=== PATIENT | male | born 1995 | race Two or more races ===

== ENCOUNTER 2020-01-31 14:21 | Inpatient (IN) | payer MEDICARE, MEDICAID, SELFPAY ==
[2020-02-06 01:40] VITALS: BMI 18.6
[2020-02-07 07:00] VITALS: BMI 30.2
[2020-02-07 07:06] VITALS: BP 129/73; PULSE 68; RESP 16; TEMP 36.4; O2SAT 99
[2020-02-07] MEDS: Benztropine Mesylate 1 MG TABLET PO ×2 (09:15→13:03)
[2020-02-07] MEDS: haloperidoL 5 MG TABLET PO ×2 (09:19→13:03)
[2020-02-07 16:54] VITALS: BP 116/69; PULSE 73; TEMP 36.5
--- NOTE | 2020-02-07 17:51 | HO.PSYCHPN ---
Assessment & Plan Assessment & Plan (1) Psychosis: Status: Acute Code(s): F29 - Unspecified psychosis not due to a substance or known physiological condition Assessment and Plan: Continue medication as above DC planned for tomorrow Greater than 50% of the session was spent on counseling and/or coordination of care Subjective Subjective Date of Service: 02/07/20 Reason For Visit: Schizophrenia Subjective Notes: Conditional Voluntary and 3 Day Interim History: Miguel Ángel remains anxious to go home. He is calm and cooperative. He has no overt psychosis. He is ambivalent about whether he will take his medication when he leaves. Medication Compliance: Yes Side effects from medications: No Attending Groups: Intermittent Mental Status Exam Mental Status Exam Patient Appearance: Well Grooomed Patient Orientation: Person, Place and Time Level of Consciousness: Appropriate Patient Behavior: Appropriate and Wandering Mood Description: Apathetic and Blunted Affect Description: Apathetic and Withdrawn Ability to Follow Directions: Fair Speech Pattern: Perseverating and Soft-Spoken Memory Description: Normal for Patient Hallucinations: Auditory (Perhaps) Delusions: Paranoid Ideation and Ideas of Reference Thought Process: Distracted Thought Content: Disorganized Judgement: Poor Diagnostics Vital Signs (24Hr): Vital Signs - 24 hr 02/07/20 07:06 02/07/20 16:54 Temperature 97.6 F 97.7 F Pulse Rate 68 73 Respiratory Rate 16 Blood Pressure 129/73 116/69 Pulse Oximetry 99 Body Mass Index 30.2 Labs Results: 01/30/20 15:24 01/30/20 15:24 Medications Medications Ambulatory Orders Medication Instructions Recorded benztropine 1 mg PO BID 02/06/20 haloperidol decanoate 100 mg IM Q4W 02/06/20 olanzapine 20 mg PO BEDTIME 02/06/20 trazodone 100 mg PO BEDTIME 02/06/20 Allergies Allergies Allergy/AdvReac Type Severity Reaction Status Date / Time morphine [MORPHINE] AdvReac Unknown NAUSEA Unverified 01/24/20 17:26
[2020-02-07] MEDS: OLANZapine 10 MG TABLET 20 MG PO (21:37)
[2020-02-07] MEDS: traZODone HCL 100 MG TABLET PO (21:38)
[2020-02-08] MEDS: haloperidoL 5 MG TABLET 7.5 MG PO (02:49)
[2020-02-08] MEDS: hydrOXYzine HCL 25 MG TABLET PO (02:49)
--- NOTE | 2020-02-08 04:53 | PC.NURSE ---
At approximately 0240, patient observed to be writing at the desk in his room while listening to music. Pt explained that he was writing numbers. The letter g and several 0 were written in rows. When asked what these characters signified, the pt was not able to explain and struggled to articulate any explanation other than numbers. He was offered medication and pt received PRN Atarax and haldol. Pt paced back and forth in the hallway and was observed to engage in self-dialoguing. He paused to ask in which direction numbers should be written and where commas should be placed, with no clear logic present. Pt returned to bed by 0345. Will continue to monitor and report.
[2020-02-08] MEDS: Benztropine Mesylate 1 MG TABLET PO ×2 (08:14→12:56)
[2020-02-08] MEDS: haloperidoL 5 MG TABLET PO ×2 (08:14→12:56)
[2020-02-08 09:49] VITALS: BP 115/58; PULSE 72; TEMP 37; O2SAT 96
--- NOTE | 2020-02-08 17:42 | PM.PSYDC ---
DS: Providers Provider Date of admission: 01/31/20 14:21 Primary care physician: Unknown Physician Attending physician on admission: Alice Rodriguez Consults: 02/06/20 04:59 Consult to Crisis Routine Attending physician on discharge: MichaelNancy Anticipated date of discharge: 02/08/20 DS: Diagnosis Discharge Diagnosis (1) Psychosis: Status: Acute Problem details: Individual was admitted with an acute increase in AH and delusional thinking which lead to his being dysregulated and violent at home. This occurred in the context of his stopping his medications which is typical for him. He was restarted on his medication which are listed below. He accepted haldol decanoate. Much emphasis was placed on trying to explain to the patient the need to remain on his medication. He struggles to understand since he does not appreciate the severity of his illness and nor does he accept that he has an illness at all. RADHA and this flex o writer operator were in touch with the family to discuss his going home. This flex o writer operator spoke at length to the patient's father who repeated that the patient must agree to take his medication and go to his appointments and if he does not then he can no come home. This was explained to the patient. It was re-iterated that if he continues to stop his medication and fail to follow through then he will be likely to have a petition for a Bear Order and his parents won't allow him home. He understood this. Discharge Plan Discharge Anticipated Discharge Date/Time: 02/08/20 14:49 Patient Disposition: Home, Self-Care Referrals: Uziel Mireles, psychiatrist [Other] - 03/15/20 1:20 pm (Appointment through telehealth 03/15 1:20pm 04/07 10am) Bessy Adamson, Therapist [Other] - 02/15/20 1:00 pm (IN PERSON. ) Fletcher Carrillo MD [Physician] - 02/12/20 1:00 pm (FAX NUMBER [phone] TELEVISIT ) Discharge Medications: New haloperidol 5 mg tablet 5 mg PO BID Qty: 60 RF: 0 Continued haloperidol decanoate 100 mg/mL Solution 100 mg IM Q4W RF: 0 trazodone 100 mg Tablet 100 mg PO BEDTIME RF: 0 benztropine 1 mg Tablet 1 mg PO BID RF: 0 olanzapine 20 mg Tablet 20 mg PO BEDTIME RF: 0 Discharge Orders: Discharge Order (Routine); Ordered 02/08/20 Ordered By: Alice Rodriguez Diet: advance to your usual diet Activity on Discharge: As tolerated Stand Alone Forms: Community Support Discharge Date/Time: 02/08/20 14:15 Visit Report Forms: Patient Portal Discharge page Care Plan Goals: Continue with medications Go to your appointments Stay sober Health Concerns: Psychosis Plan of Treatment: As in SW notes
--- NOTE | 2020-03-10 23:01 | ED.PSYCH ---
HPI - Psych General Source: EMS Limitations: no limitations History of Present Illness HPI Narrative: patient well known to this facility for multiple prior visits referred to medical record number [id number] Patient presents via EMS from home with complaint of increased anxiety/ voices is head. On arrival denied SI or HI. Denies any illicit substance use. MD complaint: anxiety Onset (ago): day(s) Duration: constant History of same: Yes Relieving factors: none Exacerbating factors: none Associated psychiatric symptoms: none Associated symptoms: denies other symptoms Treatments prior to arrival: none Related Data Home Medications Medication Instructions Recorded Confirmed benztropine 1 mg PO BID 02/06/20 02/06/20 haloperidol decanoate 100 mg IM Q4W 02/06/20 02/06/20 olanzapine 20 mg PO BEDTIME 02/06/20 02/06/20 trazodone 100 mg PO BEDTIME 02/06/20 02/06/20 Previous Rx's Medication Instructions Recorded haloperidol 5 mg PO BID #60 tab 02/08/20 Allergies Allergy/AdvReac Type Severity Reaction Status Date / Time morphine [MORPHINE] AdvReac Unknown NAUSEA Unverified 01/24/20 17:26 Review of Systems Review of Systems: Constitutional: No Weight loss, No Fever, No Chills, No Night Sweats, No Fatigue, No Malaise ENT/Mouth: No Hearing loss, No Ear Pain, No Nasal Congestion, No Sinus Pain, No Hoarseness, No sore throat, No Rhinorrhea, No Swallowing Difficulty Eyes: No Eye Pain, No Swelling, No Redness, No Foreign Body, No Discharge, No Vision Changes Cardiovascular: No Chest Pain, No SOB, No Dyspnea on Exertion, No Orthopnea, No Edema, No Palpitations Respiratory: No Cough, No Sputum, No Wheezing, No Smoke Exposure, No Dyspnea Gastrointestinal: No Nausea, No Vomiting, No Diarrhea, No Constipation, No abdominal Pain, No Hematochezia, No Melena Genitourinary: no irregular bleeding, No Dysuria, No Urinary Frequency, No Hematuria, No Urinary Incontinence, No Urgency, No Flank Pain, No Urinary Flow Changes, No Hesitancy Musculoskeletal: No joint pain, No Myalgias, No Joint Swelling Skin: No Skin Lesions, No rash Neuro: No Weakness, No Numbness, No Paresthesias, No Loss of Consciousness, No Dizziness, No Headache Psych: As noted Heme/Lymph: No Bruising, No Bleeding,No Lymphadenopathy Endocrine: No Polyuria, No Polydipsia, No Temperature Intolerance Yes all other systems are reviewed and are negative [facility] Past Medical History Attestation statement: The following information was validated with the patient. Social History Social History Currently Displaying Signs/Symptoms of Drug Intoxication Withdrawal: No Advance Directives: No Advance Directives Information Provided: No Do you have thoughts of harming others: None Do you have a plan to hurt others: No Plan Physical Exam Vital Signs: Vital Signs: Reviewed Const: General: cooperative and healthy appearing; No acute distress or intoxicated appearing Nutritional Appearance: average body habitus Orientation/consciousness: patient oriented x3 HENMT: Head: Yes normal to inspection Ears: hearing grossly normal bilaterally Eyes: General: appearance normal, both eyes and all related structures Visual Harris: normal visual harris by confrontation Neck: Neck: Yes normal visual inspection and No tender Thyroid: Thyroid normal Chest: Chest palpation & inspection: normal inspection of the chest Resp: Effort & Inspection: normal respiratory effort Cardio: Jugular venous distension: no JVD GI: Inspection: Yes normal to inspection Percussion: Yes normal to percussion Auscultation: normal bowel sounds : General: Yes no CVA tenderness Back/Spine/Pelvis: Back: no CVA tenderness Skin: General skin exam: no rashes or lesions noted Neuro: General: patient oriented x3 Extrem: General: Yes normal to inspection MDM - Psych Restraints Face to Face Assessment: Face to Face Assessment: Current Situation: After assessment of the patient, a review of the pertinent medical record and a discussion with nursing staff, I feel the patient requires a restrain intervention. Reaction To: [] Medical Condition: [] Behavioral State: [] Continued Need: [] Lab Data Result diagrams: 01/30/20 15:24 01/30/20 15:24 Labs: Lab Results 01/30/20 01/30/20 01/30/20 Range/Units 15:11 15:24 15:24 WBC (4.8 - 10.8) X10*3/uL RBC (4.60 - 5.80) X10*6/UL Hgb (14.0 - 18.0) g/dL Hct (42 - 52) % MCV (80 - 98) fL MCH (27.0 - 33.0) pg MCHC (31.0 - 36.0) g/dl RDW Coeff of Colette (11.0 - 16.0) % Plt Count (160 - 400) x10*3/uL MPV (9.4 - 12.4) fL Immature Gran % (Auto) (0.0 - 0.4) % Neut % (Auto) (45 - 73) % Lymph % (Auto) (20 - 40) % [place] % (Auto) (2 - 11) % Eos % (Auto) (0 - 4) % Baso % (Auto) (0 - 2) % Abs Immat Gran (auto) (0.00 - 0.03) X10*3/uL Absolute Lymphs (auto) (1.2 - 4.9) X10*3/uL Absolute Monos (auto) (0.1 - 1.2) X10*3/uL Absolute Eos (auto) (0.0 - 0.4) X10*3/uL Absolute Basos (auto) (0.0 - 0.2) X10*3/uL Absolute Nucleated RBC (0.0 - 0.012) X10*3/uL Nucleated RBC % (auto) (0.0 - 0.2) /100 WBC Absolute Neutrophils (2.0 - 8.3) X10*3/uL Sodium 138 (135 - 145) MMOL/L Potassium 4.3 (3.3 - 5.1) MMOL/L Chloride 104 (96 - 108) MMOL/L Bicarbonate 25 (22 - 29) MMOL/L Anion Gap 13 (12 - 20) BUN 18 H (9 - 16) MG/DL Creatinine 1.11 (0.5 - 1.4) MG/DL Estimated Creat Clear 85.0 ML/MIN Est GFR (Non-Af Amer) > 60 Random Glucose 95 (60 - 115) MG/DL Total Bilirubin 0.6 (0.0 - 1.0) MG/DL Direct Bilirubin 0.2 (0.0 - 0.5) MG/DL AST 14 D (5 - 37) U/L ALT 15 (0 - 40) U/L Alkaline Phosphatase 53 D (39 - 117) U/L Total Protein 7.8 (6.5 - 8.0) G/DL Albumin 5.2 H (3.5 - 5.0) G/DL Urine Opiates Screen NOT DETECTED (NOT DETECTD - ) Ur Barbiturates Screen NOT DETECTED (NOT DETECTD - ) Phencyclidine Screen NOT DETECTED (NOT DETECTD - ) Ur Amphetamines Screen NOT DETECTED (NOT DETECTD - ) U Benzodiazepines Scrn NOT DETECTED (NOT DETECTD - ) Urine Cocaine Screen NOT DETECTED (NOT DETECTD - ) U Cannabinoids Screen NOT DETECTED (NOT DETECTD - ) Ethyl Alcohol 33 MG/DL Coronavirus (PCR) (NEGATIVE - ) 01/30/20 01/31/20 Range/Units 15:24 09:17 WBC 8.3 (4.8 - 10.8) X10*3/uL RBC 5.02 (4.60 - 5.80) X10*6/UL Hgb 15.3 (14.0 - 18.0) g/dL Hct 45.1 (42 - 52) % MCV 89.8 (80 - 98) fL MCH 30.5 (27.0 - 33.0) pg MCHC 33.9 (31.0 - 36.0) g/dl RDW Coeff of Colette 12.3 (11.0 - 16.0) % Plt Count 224 (160 - 400) x10*3/uL MPV 10.8 (9.4 - 12.4) fL Immature Gran % (Auto) 0.7 H (0.0 - 0.4) % Neut % (Auto) 63.7 (45 - 73) % Lymph % (Auto) 22.6 (20 - 40) % [place] % (Auto) 7.4 (2 - 11) % Eos % (Auto) 4.8 H (0 - 4) % Baso % (Auto) 0.8 (0 - 2) % Abs Immat Gran (auto) 0.06 H (0.00 - 0.03) X10*3/uL Absolute Lymphs (auto) 1.9 (1.2 - 4.9) X10*3/uL Absolute Monos (auto) 0.6 (0.1 - 1.2) X10*3/uL Absolute Eos (auto) 0.4 (0.0 - 0.4) X10*3/uL Absolute Basos (auto) 0.1 (0.0 - 0.2) X10*3/uL Absolute Nucleated RBC 0.000 (0.0 - 0.012) X10*3/uL Nucleated RBC % (auto) 0.0 (0.0 - 0.2) /100 WBC Absolute Neutrophils 5.3 (2.0 - 8.3) X10*3/uL Sodium (135 - 145) MMOL/L Potassium (3.3 - 5.1) MMOL/L Chloride (96 - 108) MMOL/L Bicarbonate (22 - 29) MMOL/L Anion Gap (12 - 20) BUN (9 - 16) MG/DL Creatinine (0.5 - 1.4) MG/DL Estimated Creat Clear ML/MIN Est GFR (Non-Af Amer) Random Glucose (60 - 115) MG/DL Total Bilirubin (0.0 - 1.0) MG/DL Direct Bilirubin (0.0 - 0.5) MG/DL AST (5 - 37) U/L ALT (0 - 40) U/L Alkaline Phosphatase (39 - 117) U/L Total Protein (6.5 - 8.0) G/DL Albumin (3.5 - 5.0) G/DL Urine Opiates Screen (NOT DETECTD - ) Ur Barbiturates Screen (NOT DETECTD - ) Phencyclidine Screen (NOT DETECTD - ) Ur Amphetamines Screen (NOT DETECTD - ) U Benzodiazepines Scrn (NOT DETECTD - ) Urine Cocaine Screen (NOT DETECTD - ) U Cannabinoids Screen (NOT DETECTD - ) Ethyl Alcohol MG/DL Coronavirus (PCR) NEGATIVE (NEGATIVE - ) Discharge Plan Discharge Patient Disposition: [facility] Discharge Date/Time: 01/31/20 19:19
== END 2020-02-08 14:15 | disposition home or self-care (01) | DRG 885 ==
PROVIDERS: Admitting Provider Psychiatry & Neurology Psychiatry; Emergency Provider Physician Assistant; Visit Provider Psychiatry & Neurology Psychiatry
DX: F29 Unspecified psychosis not due to a substance or known physiological condition (principal); F17.210 Nicotine dependence, cigarettes, uncomplicated; Z71.6 Tobacco abuse counseling; Z20.828 Contact with and (suspected) exposure to other viral communicable diseases; Z88.5 Allergy status to narcotic agent; Z79.899 Other long term (current) drug therapy
CPT/HCPCS: 36415; 80051; 80076; 80307; 80320; 82565; 82947; 84520; 85025; 93005; 99285; U0003

== ENCOUNTER 2020-03-10 19:06 | Inpatient (IN) | payer MEDICARE, MEDICAID, SELFPAY ==
[2020-03-10 19:12] VITALS: BP 122/79; BP 157/58; PULSE 69; PULSE 99; RESP 18; TEMP 35.5; O2SAT 98; BMI 29.1
[2020-03-10 19:19] VITALS: BP 122/79; PULSE 69; RESP 18; TEMP 35.5; O2SAT 97
--- NOTE | 2020-03-10 19:51 | ED.GENADULT ---
HPI - General Adult General Chief complaint: General Medical Stated complaint: GENERAL MALAISE, TEMP 99.6 Time Seen by Provider: 03/10/20 19:16 Source: patient and EMS Mode of arrival: EMS Limitations: no limitations History of Present Illness HPI narrative: Patient well known to this facility for multiple prior visits referred to medical record number [id number] Patient presents via EMS from home with complaint of increased anxiety/ voices is head. On arrival denied SI or HI. Denies any illicit substance use. Onset (ago): day(s) Associated symptoms: denies other symptoms Treatments prior to arrival: none Related Data Home Medications Medication Instructions Recorded Confirmed benztropine 1 mg PO BID 03/10/20 03/10/20 haloperidol 5 mg PO BID 03/10/20 03/10/20 haloperidol decanoate 100 mg IM Q4W 03/10/20 03/10/20 olanzapine 20 mg PO BEDTIME 03/10/20 03/10/20 trazodone 100 mg PO BEDTIME 03/10/20 03/10/20 Allergies Allergy/AdvReac Type Severity Reaction Status Date / Time No Known Allergies Allergy Verified 03/10/20 19:11 Review of Systems Review of Systems: Constitutional: No Weight loss, No Fever, No Chills, No Night Sweats, No Fatigue, No Malaise ENT/Mouth: No Hearing loss, No Ear Pain, No Nasal Congestion, No Sinus Pain, No Hoarseness, No sore throat, No Rhinorrhea, No Swallowing Difficulty Eyes: No Eye Pain, No Swelling, No Redness, No Foreign Body, No Discharge, No Vision Changes Cardiovascular: No Chest Pain, No SOB, No Dyspnea on Exertion, No Orthopnea, No Edema, No Palpitations Respiratory: No Cough, No Sputum, No Wheezing, No Smoke Exposure, No Dyspnea Gastrointestinal: No Nausea, No Vomiting, No Diarrhea, No Constipation, No abdominal Pain, No Hematochezia, No Melena Genitourinary: no irregular bleeding, No Dysuria, No Urinary Frequency, No Hematuria, No Urinary Incontinence, No Urgency, No Flank Pain, No Urinary Flow Changes, No Hesitancy Musculoskeletal: No joint pain, No Myalgias, No Joint Swelling Skin: No Skin Lesions, No rash Neuro: No Weakness, No Numbness, No Paresthesias, No Loss of Consciousness, No Dizziness, No Headache Psych: as noted in HPI Heme/Lymph: No Bruising, No Bleeding,No Lymphadenopathy Endocrine: No Polyuria, No Polydipsia, No Temperature Intolerance Yes all other systems are reviewed and are negative [facility] Past Medical History Attestation statement: The following information was validated with the patient. Medical History (Updated 03/11/20 @ 01:59 by Hank Flor NP) Bipolar affective Schizophrenia Social History Social History Alcohol intake: current Alcohol intake frequency: 0-2 drinks per day Alcohol type: beer, wine and hard liquor Smoking Status: Current every day smoker Smoked in Last 30 Days: Yes Use of substances other than those prescribed or required for medical reasons: No Advance Directives: No Advance Directives Information Provided: No Physical Exam Vital Signs: Vital Signs: Vital Signs Temp Pulse Resp BP Pulse Ox 03/10/20 23:52 97.8 F 79 17 116/58 L 98 03/10/20 19:19 95.9 F L 69 18 122/79 97 03/10/20 19:12 95.9 F L 69 18 122/79 98 Body Mass Index 29.1 Reviewed Const: Other: Flat affect General: cooperative; No acute distress or intoxicated appearing Nutritional Appearance: average body habitus Orientation/consciousness: patient oriented x3 HENMT: Head: Yes normal to inspection Ears: hearing grossly normal bilaterally Eyes: General: appearance normal, both eyes and all related structures Visual Harris: normal visual harris by confrontation Neck: Neck: Yes normal visual inspection and No tender Thyroid: Thyroid normal Chest: Chest palpation & inspection: normal inspection of the chest Resp: Effort & Inspection: normal respiratory effort Cardio: Jugular venous distension: no JVD GI: Inspection: Yes normal to inspection Percussion: Yes normal to percussion Auscultation: normal bowel sounds : General: Yes no CVA tenderness Back/Spine/Pelvis: Back: no CVA tenderness Skin: General skin exam: no rashes or lesions noted Neuro: General: patient oriented x3 Extrem: General: Yes normal to inspection Course Reevaluation(s) Reevaluation #1: Care team evaluate patient recommendation for crisis consult Reevaluation #2: 0130 evaluated crisis team Section [address] recommendation for inpatient level care. Patient has remained calm cooperative. Bed search initiated. Medical Decision Making MDM Narrative Medical decision making narrative: on arrival reporting feeling very anxious however he is calm with flat affect initially declined SI/HI however he reported this to the RN and to the Care Team counselor. Patient subsequently changing to hospital attire medical screening labs ordered and crisis consult placed. Patient very familiar with facility for similar presentation the past. Lab Data Result diagrams: 03/10/20 20:44 03/10/20 20:44 Labs: Lab Results 03/10/20 03/10/20 03/10/20 Range/Units 20:44 20:44 20:44 WBC 10.8 (4.8-10.8) X10*3/uL RBC 4.90 (4.60-5.80) X10*6/uL Hgb 15.0 (14.0-18.0) g/dl Hct 44.4 (42-52) % MCV 90.6 (80-98) fL MCH 30.6 (27.0-33.0) pg MCHC 33.8 (31.0-36.0) g/dl RDW 11.9 (11.0-16.0) % Plt Count 207 (160-400) X10*3/uL MPV 11.1 (9.4-12.4) fL Immature Gran % (Auto) 0.5 H (0.0-0.4) % Neut % (Auto) 54.5 (45-73) % Lymph % (Auto) 30.4 (20-40) % [place] % (Auto) 7.6 (2-11) % Eos % (Auto) 6.4 H (0-4) % Baso % (Auto) 0.6 (0-2) % Lymph # (Auto) 3.3 (1.2-4.9) X10*3/uL [place] # (Auto) 0.8 (0.1-1.2) X10*3/uL Eos # (Auto) 0.7 H (0.0-0.4) X10*3/uL Baso # (Auto) 0.1 (0.0-0.2) X10*3/uL Abs Immat Gran (auto) 0.05 H (0.00-0.03) X10*3/uL Absolute Neuts (auto) 5.9 (2.0-8.3) X10*3/uL Absolute Nucleated RBC 0.000 (0.0-0.012) X10*3/uL Nucleated RBC % (auto) 0.0 (0.0-0.2) /100WBC Sodium 139 (135-145) mmol/L Potassium 4.3 (3.3-5.1) mmol/l Chloride 103 (96-108) mmol/L Carbon Dioxide 28 (22-29) mmol/L Anion Gap 12 (12-20) BUN 15 (9-16) mg/dL Creatinine 1.79 H (0.5-1.4) mg/dL Estim Creat Clear Calc 71.9 Estimated GFR 47 Random Glucose 109 (60-115) mg/dL Calcium 9.1 (8.4-10.2) mg/dL Total Bilirubin 0.5 (0.0-1.0) mg/dL AST 15 (5-37) U/L ALT 11 (0-40) U/L Alkaline Phosphatase 57 (39-117) U/L Total Protein 7.5 (6.5-8.0) g/dL Albumin 4.9 (3.5-5.0) g/dL Urine Opiates Screen (Not Detect) Ur Barbiturates Screen (Not Detect) Ur Phencyclidine Scrn (Not Detect) Ur Amphetamines Screen (Not Detect) U Benzodiazepines Scrn (Not Detect) Urine Cocaine Screen (Not Detect) U Marijuana (THC) Screen (Not Detect) Ethyl Alcohol < 10 mg/dL 03/10/20 Range/Units 20:44 WBC (4.8-10.8) X10*3/uL RBC (4.60-5.80) X10*6/uL Hgb (14.0-18.0) g/dl Hct (42-52) % MCV (80-98) fL MCH (27.0-33.0) pg MCHC (31.0-36.0) g/dl RDW (11.0-16.0) % Plt Count (160-400) X10*3/uL MPV (9.4-12.4) fL Immature Gran % (Auto) (0.0-0.4) % Neut % (Auto) (45-73) % Lymph % (Auto) (20-40) % [place] % (Auto) (2-11) % Eos % (Auto) (0-4) % Baso % (Auto) (0-2) % Lymph # (Auto) (1.2-4.9) X10*3/uL [place] # (Auto) (0.1-1.2) X10*3/uL Eos # (Auto) (0.0-0.4) X10*3/uL Baso # (Auto) (0.0-0.2) X10*3/uL Abs Immat Gran (auto) (0.00-0.03) X10*3/uL Absolute Neuts (auto) (2.0-8.3) X10*3/uL Absolute Nucleated RBC (0.0-0.012) X10*3/uL Nucleated RBC % (auto) (0.0-0.2) /100WBC Sodium (135-145) mmol/L Potassium (3.3-5.1) mmol/l Chloride (96-108) mmol/L Carbon Dioxide (22-29) mmol/L Anion Gap (12-20) BUN (9-16) mg/dL Creatinine (0.5-1.4) mg/dL Estim Creat Clear Calc Estimated GFR Random Glucose (60-115) mg/dL Calcium (8.4-10.2) mg/dL Total Bilirubin (0.0-1.0) mg/dL AST (5-37) U/L ALT (0-40) U/L Alkaline Phosphatase (39-117) U/L Total Protein (6.5-8.0) g/dL Albumin (3.5-5.0) g/dL Urine Opiates Screen Not Detected (Not Detect) Ur Barbiturates Screen Not Detected (Not Detect) Ur Phencyclidine Scrn Not Detected (Not Detect) Ur Amphetamines Screen Not Detected (Not Detect) U Benzodiazepines Scrn Not Detected (Not Detect) Urine Cocaine Screen POSITIVE H (Not Detect) U Marijuana (THC) Screen Not Detected (Not Detect) Ethyl Alcohol mg/dL Discharge Plan Discharge Clinical Impression: Schizophrenia Patient Disposition: Admitted As Inpatient Prescriptions: No Action haloperidol 5 mg Tablet 5 mg PO BID RF: 0 haloperidol decanoate 100 mg/mL Solution 100 mg IM Q4W RF: 0 trazodone 100 mg Tablet 100 mg PO BEDTIME RF: 0 benztropine 1 mg Tablet 1 mg PO BID RF: 0 olanzapine 20 mg Tablet 20 mg PO BEDTIME RF: 0
--- NOTE | 2020-03-10 20:02 | MHC.CARE ---
CARE team consult placed for 24 year old male who presented to ED expressing anxiety and feeling that his psych medications aren't working. When this freelance writer approached, pt requested additional blankets which were provided. Pt then would not respond or make eye contact with this freelance writer. Second attempt to speak with pt occurred shortly after, where pt endorsed experiencing high anxiety and active thoughts of wanting to kill himself via gunshot to the head. Recommendation for [facility] crisis evaluation was made. Eval pending.
[2020-03-10] MEDS: LORazepam 2 MG/ML VIAL 1 MG IM (20:31)
[2020-03-10 20:53] LABS: Basophils Absolute Auto 0.1 X10*3/uL (0.0-0.2); Basophils Percent Auto 0.6 % (0-2); Eosinophils Absolute Auto 0.7 X10*3/uL (0.0-0.4); Eosinophils Percent Auto 6.4 % (0-4); Hematocrit 44.4 % (42-52); Imm Gran Abs Auto 0.05 X10*3/uL (0.00-0.03); Imm Gran Pct Auto 0.5 % (0.0-0.4); Lymphocytes Absolute Auto 3.3 X10*3/uL (1.2-4.9); Lymphocytes Percent Auto 30.4 % (20-40); MANUAL DIFF FLAG NO; Mean Corpuscular HGB Conc 33.8 g/dl (31.0-36.0); Mean Corpuscular Hemoglobin 30.6 pg (27.0-33.0); Mean Corpuscular Volume 90.6 fL (80-98); Mean Platelet Volume 11.1 fL (9.4-12.4); Monocytes Absolute Auto 0.8 X10*3/uL (0.1-1.2); Monocytes Percent Auto 7.6 % (2-11); Neutrophils Absolute Auto 5.9 X10*3/uL (2.0-8.3); Neutrophils Percent Auto 54.5 % (45-73); Platelet Count 207 X10*3/uL (160-400); Red Cell Distribution Width 11.9 % (11.0-16.0); White Blood Count 10.8 X10*3/uL (4.8-10.8)
[2020-03-10 21:12] LABS: Ethanol < 10 mg/dL
[2020-03-10 21:16] LABS: Alanine Aminotransferase 11 U/L (0-40); Albumin Level 4.9 g/dL (3.5-5.0); Alkaline Phosphatase 57 U/L (39-117); Anion Gap 12 (12-20); Aspartate Amino Transferase 15 U/L (5-37); Bilirubin Total 0.5 mg/dL (0.0-1.0); Blood Urea Nitrogen 15 mg/dL (9-16); Calcium 9.1 mg/dL (8.4-10.2); Carbon Dioxide 28 mmol/L (22-29); Chloride 103 mmol/L (96-108); Creatinine Clr Calc Pharmacy 71.9; Estimated Glomerular Filt Rate 47; Glucose Random 109 mg/dL (60-115); Potassium 4.3 mmol/l (3.3-5.1); Sodium 139 mmol/L (135-145); Total Protein 7.5 g/dL (6.5-8.0)
[2020-03-10 21:26] LABS: Amphetamine Screen Urine Not Detected (Not Detect); Barbiturates, Urine Not Detected (Not Detect); Benzodiazepines Screen Urine Not Detected (Not Detect); Cannabinoid Screen Urine Not Detected (Not Detect); Cocaine Screen Urine POSITIVE (Not Detect); Opiate Screen Urine Not Detected (Not Detect); Phencyclidine Screen Urine Not Detected (Not Detect)
[2020-03-10 23:52] VITALS: BP 116/58; PULSE 79; RESP 17; TEMP 36.6; O2SAT 98
[2020-03-11] MEDS: HaloperidoL 5 MG TABLET PO ×3 (01:23→21:28)
--- NOTE | 2020-03-11 07:09 | PC.NURSE ---
Report received from XIAO Carroll. Pt resting, resp unlabored.
[2020-03-11] MEDS: Benztropine Mesylate 1 MG TABLET PO ×2 (09:04→21:29)
--- NOTE | 2020-03-11 15:01 | PC.NURSE ---
Pt pacing, requesting to go home, stating i brought myself in, I was anxious.' Pt states he is no longer feeling anxious or in pain, but would like to go home. [facility] called, per [facility], supervisor data processing is in shift change, unable to state when [facility]SU will occur at this time but will call ED. Pt notified.
[2020-03-11 16:43] VITALS: BP 113/77; PULSE 95; RESP 20; TEMP 36.4; O2SAT 96
[2020-03-11] MEDS: OLANZapine 10 MG TABLET 20 MG PO (21:28)
[2020-03-11] MEDS: traZODone HCL 100 MG TABLET PO (21:29)
[2020-03-11 22:20] VITALS: BP 101/50; PULSE 53; RESP 20; TEMP 36.6; O2SAT 96
[2020-03-12 09:02] VITALS: BP 99/62; PULSE 98; RESP 16; TEMP 37; O2SAT 96
[2020-03-12] MEDS: HaloperidoL 5 MG TABLET PO ×2 (09:15→21:18)
[2020-03-12] MEDS: Benztropine Mesylate 1 MG TABLET PO ×2 (09:15→21:18)
[2020-03-12 12:30] LABS: SARS COV2 PCR INHOUSE NEGATIVE (Negative)
[2020-03-12] MEDS: LORazepam 1 MG TABLET 2 MG PO (12:35)
[2020-03-12] MEDS: diphenhydrAMINE HCL 25 MG TABLET 50 MG PO (13:32)
--- NOTE | 2020-03-12 13:34 | PC.NURSE ---
pt medicated w benadryl, requested something for anxiety, currently laying in bed
[2020-03-12] MEDS: LORazepam 1 MG TABLET PO ×2 (16:12→23:05)
[2020-03-12 19:00] VITALS: BP 116/70; PULSE 104
[2020-03-12] MEDS: OLANZapine 10 MG TABLET 20 MG PO (21:18)
[2020-03-12] MEDS: traZODone HCL 100 MG TABLET PO (21:18)
[2020-03-12] MEDS: hydrOXYzine HCL 25 MG TABLET PO (21:43)
[2020-03-12] MEDS: Acetaminophen 325 MG TABLET 650 MG PO (23:03)
--- NOTE | 2020-03-12 23:47 | PC.ADMIT ---
A single, Iraqi-speaking male, aged 24 years was admitted to [facility] at 1455 as a CV following referral from [facility] and [facility]. Pt has a number of admissions here, the last on 01/31/2020. Pt also has a number of admissions at [place] and [place]. Pt has no admissions for ETOH or substances. Pt called an ambulance from home to be brought to [facility] for a Crisis assessment. Pt reported racing thoughts, difficulty sleeping, and increased irritability accompanied by explosiveness. Pt expressed feeling like he wanted to . Pt was discharged from about one month ago. Family reports pt has not taken prescribed medications. Pt denied SI or HI when speaking with this typewriters functional tester. Per admission information in November 2019, pt's father had said pt was spending all his SSDI benefits on cocaine, marijuana and ETOH. There was indication that [facility] services are being pursued. Pt was calm and cooperative during admission, reporting anxiety of 10/10 and depression 8/10. Pt reported experiencing paranoia and difficulty concentrating. About chcf through the admission pt stated he was becoming frustrated saying I'm becoming anxious; I don't understand all of these questions. Pt reported history of urges to self-harm by burning, cutting and punching his self in the face. Pt denied urges to selfharm at this time and said can seek out help from staff for this and SI/HI. Pt minimized substance and ETOH use and was focused on how soon he would discharge. Pt regretted saying anything that gave the impression he had SI. Pt was disorganized in his thinking and had trouble following questions. Pt has no medical issues and is only allergic to morphine. Pt is now on 15-minute safety checks. Admission orders have been obtained. Pt signed a 3-day notice of intent to leave; all providers have been made aware. Pt's medications are from [facility] and need to be verified when open. Pt gets Haldol decanoate 100mg [id number]. Last dose was most likely here on M5 before pt discharged but needs to be confirmed.
--- NOTE | 2020-03-13 | ECG_ITS ---
Test Reason : COCAINE USE Blood Pressure : / mmHG Vent. Rate : 082 BPM Atrial Rate : 082 BPM P-R Int : 148 ms QRS Dur : 090 ms QT Int : 348 ms P-R-T Axes : 058 071 -16 degrees QTc Int : 406 ms Sinus rhythm with marked sinus arrhythmia Nonspecific T wave abnormality Abnormal ECG No previous ECGs available Referred By: Jazmin Marks Electronically Signed By:SAMI CRAIG MD
[2020-03-13] MEDS: traZODone HCL 50 MG TABLET PO (00:46)
[2020-03-13 07:00] VITALS: BMI 29.7
--- NOTE | 2020-03-13 07:29 | HO.PSYCHPN ---
Subjective Subjective Reason For Visit: Psychosis Diagnostics Vital Signs (24Hr): Vital Signs - 24 hr 03/12/20 09:02 03/12/20 19:00 Temperature 98.6 F Pulse Rate 98 104 H Respiratory Rate 16 Blood Pressure 99/62 116/70 Pulse Oximetry 96 Body Mass Index 29.1 Labs Results: 03/10/20 20:44 03/10/20 20:44 Labs: Laboratory Results - last 48 hr 03/12/20 11:21 Coronavirus (PCR) NEGATIVE Medications Medications Current Medications Generic Name Dose Route Start Last Admin Trade Name Freq PRN Reason Stop Dose Admin Acetaminophen 650 mg 03/12/20 17:38 03/12/20 23:03 Acetaminophen 325 Mg Tablet PO 650 mg Q6H PRN Administration Headache/Pain Mild Scale (1-3) Al Hydroxide/Mg Hydroxide 30 ml 03/12/20 17:38 Magnesium Hydrox/Alum Hydrox 30 Ml Oral.Susp PO Q6H PRN Heartburn/Nausea Benztropine Mesylate 1 mg 03/11/20 09:00 03/12/20 21:18 Benztropine Mesylate 1 Mg Tablet PO 1 mg BID LEONOR Administration Haloperidol 5 mg 03/11/20 09:00 03/12/20 21:18 Haloperidol 5 Mg Tablet PO 5 mg BID LEONOR Administration Hydroxyzine HCl 25 mg 03/12/20 17:38 03/12/20 21:43 Hydroxyzine Hcl 25 Mg Tablet PO 25 mg BEDTIME PRN Administration Anxiety Lorazepam 1 mg 03/12/20 16:03 03/12/20 23:05 Lorazepam 1 Mg Tablet PO 1 mg Q4H PRN Administration anxiety/restlessness Magnesium Hydroxide 30 ml 03/12/20 17:38 Milk Of Magnesia 30 Ml Oral.Susp PO DAILY PRN Constipation Nicotine Polacrilex 4 mg 03/12/20 17:38 Nicotine Polacrilex 2 Mg Gum BUCCAL Q2H PRN Nicotine Cravings Nicotine Polacrilex 2 mg 03/12/20 21:59 Nicotine Polacrilex 2 Mg Gum BUCCAL Q2H PRN Nicotine Cravings Olanzapine 20 mg 03/11/20 21:00 03/12/20 21:18 Olanzapine 10 Mg Tablet PO 20 mg BEDTIME LEONOR Administration Trazodone HCl 100 mg 03/11/20 21:00 03/12/20 21:18 Trazodone Hcl 100 Mg Tablet PO 100 mg BEDTIME LEONOR Administration Trazodone HCl 50 mg 03/12/20 17:38 03/13/20 00:46 Trazodone Hcl 50 Mg Tablet PO 50 mg BEDTIME PRN Administration Insomnia Allergies Allergies Allergy/AdvReac Type Severity Reaction Status Date / Time morphine [MORPHINE] AdvReac Unknown NAUSEA Unverified 03/12/20 14:28 Assessment & Plan Greater than 50% of the session was spent on counseling and/or coordination of care
--- NOTE | 2020-03-13 09:00 | ECG_ITS ---
Test Reason : QTC CHECK Blood Pressure : / mmHG Vent. Rate : 075 BPM Atrial Rate : 075 BPM P-R Int : 156 ms QRS Dur : 092 ms QT Int : 354 ms P-R-T Axes : 053 064 -05 degrees QTc Int : 395 ms Normal sinus rhythm with sinus arrhythmia Nonspecific T wave abnormality Abnormal ECG When compared with ECG of 31-JAN-2020 09:21, No significant change was found Referred By: Jazmin Marks Electronically Signed By:SAMI CRAIG MD
[2020-03-13] MEDS: HaloperidoL 5 MG TABLET PO ×2 (09:01→20:51)
[2020-03-13] MEDS: Benztropine Mesylate 1 MG TABLET PO ×2 (09:01→20:51)
[2020-03-13] MEDS: LORazepam 1 MG TABLET PO ×3 (09:05→19:02)
[2020-03-13] MEDS: Flu Vacc QS2020-21(6mos up)/PF 0.5 ML SYRINGE IM (10:02)
[2020-03-13 10:12] VITALS: BP 114/71; PULSE 88; TEMP 36.6
--- NOTE | 2020-03-13 11:31 | HO.PSYADMNOT ---
HPI Chief Complaint: Psychosis Sources of Information: patient interviewed, chart reviewed and crisis/core team assessment reviewed Additional Sources of Information: Past records from [facility] HPI Narrative: Pt known to M5. Last DC was 1 month ago. Long Hx of Schizophrenia with recurrent non compliance followed by relapse. This time pt presents by self stating he was feeling anxious and pain all over bod ...so I wanted to seek help Denies SI/HI. Has Chronic PI but denies currently. Just focused on DC. DEON noted for cocaine but not THC. Failed Bear during past M5 hospitalization [facility] Medical History Anxiety Bipolar affective Depression Schizophrenia Suicidal behavior Family History: Paternal Uncle has Schizophrenia Social History: Has SSDI. Single Lives with parents on condition of med compliance Substance History: Coacaine/Hx of THC Trauma History: None Diagnostics Vital Signs (24Hr): Vital Signs - 24 hr 03/12/20 19:00 03/13/20 10:12 Temperature 97.9 F Pulse Rate 104 H 88 Blood Pressure 116/70 114/71 Body Mass Index 29.1 Labs Results: 03/10/20 20:44 03/10/20 20:44 Labs: Laboratory Results - last 48 hr 03/12/20 11:21 Coronavirus (PCR) NEGATIVE Meds/Allergies Meds Home Medications Medication Instructions Recorded Confirmed Type benztropine 1 mg PO BID 02/06/20 02/06/20 History haloperidol decanoate 100 mg IM Q4W 02/06/20 02/06/20 History olanzapine 20 mg PO BEDTIME 02/06/20 02/06/20 History trazodone 100 mg PO BEDTIME 02/06/20 02/06/20 History benztropine 1 mg PO BID 03/10/20 03/12/20 History haloperidol 5 mg PO BID 03/10/20 03/12/20 History haloperidol decanoate 100 mg IM Q4W 03/10/20 03/10/20 History olanzapine 20 mg PO BEDTIME 03/10/20 03/12/20 History trazodone 100 mg PO BEDTIME 03/10/20 03/12/20 History Allergies Allergies Allergy/AdvReac Type Severity Reaction Status Date / Time morphine [MORPHINE] AdvReac Unknown NAUSEA Unverified 03/12/20 14:28 Mental Status Exam Mental Status Exam Patient Appearance: Disheveled Patient Orientation: Person, Place, Time and Situation Level of Consciousness: Awake Patient Behavior: Suspicious and Impulsive Mood Description: Suspicious Affect Description: Withdrawn, Constricted and Flat Memory Description: Intact Hallucinations: None Delusions: Paranoid Ideation Thought Content: positive for Homicidal Ideation (denies) Abnormal Motor Activity Signs and Symptoms: Restlessness Judgement: Poor Assessment & Plan Assessment & Plan (1) Schizophrenia: Status: Acute Qualifiers: Schizophrenia type: unspecified Qualified Code(s): F20.9 - Schizophrenia, unspecified Code(s): F20.9 - Schizophrenia, unspecified Assessment and Plan: Pt agrees to Haldol Dec. OLZ scheduled and PRN. Halley DC. Signed 3 days Patient educated on: diagnosis Informed Consent: further education needed Reason for continued inpatient stay Substantial Risk for: inability to function and rapid decompensation
[2020-03-13] MEDS: OLANZapine 5 MG TABLET PO ×2 (11:35→15:42)
[2020-03-13] MEDS: Nicotine Polacrilex 2 MG GUM BUCCAL (15:42)
[2020-03-13 16:40] VITALS: BP 145/79; PULSE 101; TEMP 37.6
[2020-03-13] MEDS: OLANZapine 10 MG TABLET 20 MG PO (20:50)
[2020-03-13] MEDS: traZODone HCL 100 MG TABLET PO (20:51)
--- NOTE | 2020-03-14 08:49 | P.DS_ITS ---
DS: Providers Provider Date of admission: 03/12/20 14:36 Primary care physician: Unknown Physician Discharge Plan Discharge Patient Disposition: Home, Self-Care Referrals: [facility] [Other] - 03/15/20 (Fax- [phone]) Uziel Mireles, psychiatric provider [Other] - 03/15/20 1:20 pm (Appointments by telehealth ) Uziel Mireles psychiatric provider [Other] - 03/25/20 10:20 am (Appointments by telehealth) Juni Carbajal, therapist [Other] - 03/20/20 10:00 am (Telehealth) Physician,Unknown [Primary Care Provider] - 03/24/20 1:00 pm (PCP [facility] [phone] TELEHEALTH) Discharge Medications: Continued haloperidol decanoate 100 mg/mL Solution 100 mg IM Q4W 30 Days Qty: 1 RF: 0 trazodone 100 mg Tablet 100 mg PO BEDTIME 30 Days Qty: 30 RF: 0 benztropine 1 mg Tablet 1 mg PO BID 30 Days Qty: 60 RF: 0 olanzapine 20 mg Tablet 20 mg PO BEDTIME 30 Days Qty: 30 RF: 0 Discontinued haloperidol 5 mg tablet 5 mg PO BID Qty: 60 RF: 0 haloperidol 5 mg Tablet 5 mg PO BID RF: 0 haloperidol decanoate 100 mg/mL Solution 100 mg IM Q4W RF: 0 trazodone 100 mg Tablet 100 mg PO BEDTIME RF: 0 benztropine 1 mg Tablet 1 mg PO BID RF: 0 olanzapine 20 mg Tablet 20 mg PO BEDTIME RF: 0 Discharge Orders: Discharge Order (Routine); Ordered 03/14/20 Ordered By: Navdeep Trevino Diet: advance to your usual diet Activity on Discharge: As tolerated Stand Alone Forms: Community Support Discharge Date/Time: 03/14/20 13:45 Visit Report Forms: Patient Portal Discharge page Care Plan Goals: Improve med adherence' Keep appts Decrease psychotic symptoms Health Concerns: psychosis med non-adherence Plan of Treatment: ct med mx and OP follow up Data Data Completed and Pending Completed studies during hospitalization [Text1]: 03/10/20 03/10/20 03/10/20 20:44 20:44 20:44 WBC 10.8 RBC 4.90 Hgb 15.0 Hct 44.4 MCV 90.6 MCH 30.6 MCHC 33.8 RDW 11.9 Plt Count 207 MPV 11.1 Immature Gran % (Auto) 0.5 H Neut % (Auto) 54.5 Lymph % (Auto) 30.4 [place] % (Auto) 7.6 Eos % (Auto) 6.4 H Baso % (Auto) 0.6 Lymph # (Auto) 3.3 [place] # (Auto) 0.8 Eos # (Auto) 0.7 H Baso # (Auto) 0.1 Abs Immat Gran (auto) 0.05 H Absolute Neuts (auto) 5.9 Absolute Nucleated RBC 0.000 Nucleated RBC % (auto) 0.0 Sodium 139 Potassium 4.3 Chloride 103 Carbon Dioxide 28 Anion Gap 12 BUN 15 Creatinine 1.79 H Estim Creat Clear Calc 71.9 Estimated GFR 47 Random Glucose 109 Calcium 9.1 Total Bilirubin 0.5 AST 15 ALT 11 Alkaline Phosphatase 57 Total Protein 7.5 Albumin 4.9 Urine Opiates Screen Ur Barbiturates Screen Ur Phencyclidine Scrn Ur Amphetamines Screen U Benzodiazepines Scrn Urine Cocaine Screen U Marijuana (THC) Screen Ethyl Alcohol < 10 Coronavirus (PCR) 03/10/20 03/12/20 20:44 11:21 WBC RBC Hgb Hct MCV MCH MCHC RDW Plt Count MPV Immature Gran % (Auto) Neut % (Auto) Lymph % (Auto) [place] % (Auto) Eos % (Auto) Baso % (Auto) Lymph # (Auto) [place] # (Auto) Eos # (Auto) Baso # (Auto) Abs Immat Gran (auto) Absolute Neuts (auto) Absolute Nucleated RBC Nucleated RBC % (auto) Sodium Potassium Chloride Carbon Dioxide Anion Gap BUN Creatinine Estim Creat Clear Calc Estimated GFR Random Glucose Calcium Total Bilirubin AST ALT Alkaline Phosphatase Total Protein Albumin Urine Opiates Screen Not Detected Ur Barbiturates Screen Not Detected Ur Phencyclidine Scrn Not Detected Ur Amphetamines Screen Not Detected U Benzodiazepines Scrn Not Detected Urine Cocaine Screen POSITIVE H U Marijuana (THC) Screen Not Detected Ethyl Alcohol Coronavirus (PCR) NEGATIVE DS: Summary Hospital Course Hospital Course: Pt known to M5. Last DC was 1 month ago. Long Hx of Schizophrenia with recurrent non compliance followed by relapse. This time pt presents by self stating he was feeling anxious and pain all over bod ...so I wanted to seek help Denies SI/HI. Has Chronic PI but denies currently. Just focused on DC. DEON noted for cocaine but not THC. Denied Bear petition during past M5 hospitalization Pt self referred to hospital stay in contrast to previous admissions, Was less paranoid and menacing but focused on DC. Hoever did agree to Haldol Dec before DC. No dyscontrol noted. VNA in place Time spent discussing smoking cessation with patient: more than 10 minutes Status at Discharge Functional status at discharge: independent ambulation Overall status at discharge: patient is progressing back to baseline Time Spent with Patient Time attestation: Total time spent providing and/or coordinating discharge services: Time spent: Greater than 30 minutes
[2020-03-14] MEDS: HaloperidoL 5 MG TABLET PO (08:57)
[2020-03-14] MEDS: Benztropine Mesylate 1 MG TABLET PO (08:57)
== END 2020-03-14 13:45 | disposition home or self-care (01) | DRG 750 ==
LOC: HO.ED 03-11 01:59 → HO.PM5 03-12 14:42
PROVIDERS: Nurse Practitioner Primary Care; Physician Assistant Medical; Admitting Provider Psychiatry & Neurology Psychiatry; Emergency Provider Emergency Medicine; Visit Provider Psychiatry & Neurology Psychiatry
DX: F20.9 Schizophrenia, unspecified (principal); R45.851 Suicidal ideations; F17.210 Nicotine dependence, cigarettes, uncomplicated; Z20.828 Contact with and (suspected) exposure to other viral communicable diseases; Z71.6 Tobacco abuse counseling; Z88.5 Allergy status to narcotic agent; Z23 Encounter for immunization
CPT/HCPCS: 36415; 80053; 80307; 80320; 85025; 90471; 90686; 93005; 96372; 99223; 99239; 99285; J2060; Q0163; U0003

== ENCOUNTER 2020-06-01 18:23 | Inpatient (IN) | payer MEDICARE, MEDICAID, SELFPAY ==
[2020-06-01 18:39] VITALS: BP 131/83; PULSE 108; RESP 18; TEMP 36.9; O2SAT 95; BMI 26.2
[2020-06-01 18:44] VITALS: BP 131/83; PULSE 108; RESP 18; TEMP 36.9; O2SAT 95
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
--- NOTE | 2020-06-01 19:05 | PC.NURSE ---
Report received. PT is sitting in his room quietly. Calm and cooperative. Waiting to be seen by [facility].
[2020-06-01 19:14] LABS: MANUAL DIFF FLAG NO
[2020-06-01 19:17] LABS: Basophils Percent Auto 0.3 % (0-2); Eosinophils Absolute Auto 0.3 X10*3/uL (0.0-0.4); Eosinophils Percent Auto 2.9 % (0-4); Hematocrit 44.9 % (42-52); Hemoglobin 15.5 g/dl (14.0-18.0); Imm Gran Abs Auto 0.05 X10*3/uL (0.00-0.03); Imm Gran Pct Auto 0.5 % (0.0-0.4); Lymphocytes Absolute Auto 1.7 X10*3/uL (1.2-4.9); Lymphocytes Percent Auto 15.9 % (20-40); Mean Corpuscular HGB Conc 34.5 g/dl (31.0-36.0); Mean Corpuscular Hemoglobin 30.8 pg (27.0-33.0); Mean Corpuscular Volume 89.3 fL (80-98); Mean Platelet Volume 10.7 fL (9.4-12.4); Monocytes Absolute Auto 0.8 X10*3/uL (0.1-1.2); Monocytes Percent Auto 7.5 % (2-11); Neutrophils Absolute Auto 7.6 X10*3/uL (2.0-8.3); Neutrophils Percent Auto 72.9 % (45-73); Platelet Count 243 X10*3/uL (160-400); Red Blood Count 5.03 X10*6/uL (4.60-5.80); White Blood Count 10.5 X10*3/uL (4.8-10.8)
[2020-06-01 19:39] LABS: Ethanol 27 mg/dL
[2020-06-01 19:40] LABS: Amphetamine Screen Urine Not Detected (Not Detect); Barbiturates, Urine Not Detected (Not Detect); Benzodiazepines Screen Urine Not Detected (Not Detect); Cannabinoid Screen Urine Not Detected (Not Detect); Cocaine Screen Urine POSITIVE (Not Detect); Opiate Screen Urine Not Detected (Not Detect); Phencyclidine Screen Urine Not Detected (Not Detect)
[2020-06-01 19:42] LABS: Acetaminophen LAB < 1 mcg/mL (<30); Alanine Aminotransferase 14 U/L (0-40); Albumin Level 5.3 g/dL (3.5-5.0); Alkaline Phosphatase 59 U/L (39-117); Anion Gap 16 (12-20); Aspartate Amino Transferase 17 U/L (5-37); Bilirubin Total 0.6 mg/dL (0.0-1.0); Blood Urea Nitrogen 14 mg/dL (9-16); Calcium 10.1 mg/dL (8.4-10.2); Carbon Dioxide 27 mmol/L (22-29); Chloride 102 mmol/L (96-108); Creatinine Clr Calc Pharmacy 95.5; Estimated Glomerular Filt Rate > 60; Glucose Random 94 mg/dL (60-115); Potassium 4.6 mmol/l (3.3-5.1); Salicylate < 5.0 mg/dL (15-30); Sodium 140 mmol/L (135-145); Total Protein 8.1 g/dL (6.5-8.0)
[2020-06-01] MEDS: traZODone HCL 100 MG TABLET PO (21:28)
[2020-06-01] MEDS: Benztropine Mesylate 1 MG TABLET PO (21:28)
[2020-06-01] MEDS: OLANZapine 10 MG TABLET 20 MG PO (21:28)
--- NOTE | 2020-06-01 22:03 | PC.NURSE ---
[facility] called and faxed. Stated the PT could not be seen until the morning.
[2020-06-02] VITALS (8 sets, daily range): BP systolic 122–143; BP diastolic 60–84; PULSE 76–86; RESP 17–20; TEMP 36.4–36.8; O2SAT 95–99
[2020-06-02 02:31] LABS: COVID-19 Test Negative (Negative); IDNOW Serial# 9DD0AD1C
--- NOTE | 2020-06-02 07:12 | PC.NURSE ---
Report received from XIAO Mac. Pt resting, resp unlabored.
[2020-06-02] MEDS: Benztropine Mesylate 1 MG TABLET PO ×2 (08:15→20:06)
--- NOTE | 2020-06-02 09:36 | PC.NURSE ---
Pt resting, resp unlabored.
--- NOTE | 2020-06-02 10:19 | PC.NURSE ---
Pt appears angry, mildly agitated- cooperative w/ vital signs, HR checked manually and reported to Scooby Camejo. EKG in process.
--- NOTE | 2020-06-02 10:37 | PC.NURSE ---
[facility] in w/ pt
--- NOTE | 2020-06-02 11:03 | PC.NURSE ---
Pt pacing, requesting medication for anxiety. Provider notified. Pt awaiting dispo.
[2020-06-02] MEDS: LORazepam 1 MG TABLET PO (11:37)
--- NOTE | 2020-06-02 11:51 | PC.NURSE ---
Pt medicated for anxiety as requested. Currently out in common area, coloring, awaiting dispo.
--- NOTE | 2020-06-02 12:32 | PC.NURSE ---
Pt resting, resp unlabored
--- NOTE | 2020-06-02 13:52 | PC.NURSE ---
Pt resting, resp unlabored.
[2020-06-02] MEDS: LORazepam 1 MG TABLET 2 MG PO (14:47)
--- NOTE | 2020-06-02 14:48 | PC.NURSE ---
DHIRAJ back in to let pt know he was going to be staying to wait for an inpatient bed. Pt became very agitated, pacing, shouting at staff. Security in, K Nell aware. Lengthy negotiation ensued, pt offered medication PO, declined several times. Josue Cintron in, assisting w/ negotiation. Pt accepted medication, now listening to music on headphones.
--- NOTE | 2020-06-02 16:07 | ECG_ITS ---
Test Reason : MEDCLEARANCE Blood Pressure : / mmHG Vent. Rate : 073 BPM Atrial Rate : 073 BPM P-R Int : 156 ms QRS Dur : 088 ms QT Int : 366 ms P-R-T Axes : 031 067 -32 degrees QTc Int : 403 ms Normal sinus rhythm T wave abnormality, consider inferior ischemia Abnormal ECG When compared with ECG of 13-MAR-2020 12:19, No significant change was found Referred By: Natalie Camejo Electronically Signed By:Saji Parham
[2020-06-02] MEDS: HaloperidoL 5 MG TABLET PO (16:13)
--- NOTE | 2020-06-02 16:14 | PC.NURSE ---
Pt pacing, standing near doorway, requiring redirection frequently. pt reports no effect from atiovan given. Pt reporting significant anxiety.
--- NOTE | 2020-06-02 16:17 | PC.NURSE ---
pt accepted haldol po for anxiety.
[2020-06-02] MEDS: Nicotine 14 MG PATCH.TD24 TRANSDERMA (16:35)
--- NOTE | 2020-06-02 16:48 | PC.NURSE ---
Pt restless, coached by IRENE re: taking a shower, pt currently in shower.
--- NOTE | 2020-06-02 16:51 | PC.NURSE ---
Pt listening to headphones, appears to be in good humor, singing and pacing.
--- NOTE | 2020-06-02 19:18 | PC.NURSE ---
Patient in hallway with heads phone on, listening to music, mood pleasant, no distress reported, will continue to monitor.
[2020-06-02] MEDS: OLANZapine 10 MG TABLET 20 MG PO (20:05)
[2020-06-02] MEDS: traZODone HCL 100 MG TABLET PO (20:05)
--- NOTE | 2020-06-02 21:47 | PC.NURSE ---
Patient compliant with HS PO medication, no distress reported, will continue to monitor.
[2020-06-03] VITALS (9 sets, daily range): BP systolic 119–132; BP diastolic 75–87; PULSE 91–99; RESP 18–28; TEMP 36.3–36.8; O2SAT 97–98
--- NOTE | 2020-06-03 07:06 | PC.NURSE ---
Report received from XIAO Carroll. Pt resting, resp unlabored.
[2020-06-03] MEDS: Benztropine Mesylate 1 MG TABLET PO ×2 (08:00→20:22)
--- NOTE | 2020-06-03 09:17 | PC.NURSE ---
Pt resting, resp unlabored
--- NOTE | 2020-06-03 10:08 | PC.NURSE ---
Pt resting, resp unlabored
[2020-06-03] MEDS: Haloperidol Lactate 5 MG/ML VIAL IM (10:35)
[2020-06-03] MEDS: LORazepam 2 MG/ML VIAL IM (10:35)
--- NOTE | 2020-06-03 11:27 | PC.NURSE ---
Late entry: 1035- Pt attempted to elope while RN was walking out the door. Pt caught by RN MHA and security, and returned to unit without incident. Pt continued to be angry, stating he wanted to leave. Pt deescalated by security, and willing to take IM medications. Pt tearful later, but cooperative with vitals. Pt given snack and drink as requested. Now resting in room.
--- NOTE | 2020-06-03 11:51 | PC.NURSE ---
P resting, resp unlabored
--- NOTE | 2020-06-03 13:38 | PC.NURSE ---
Pt resting, resp unlabored.
--- NOTE | 2020-06-03 14:10 | PC.NURSE ---
CARE team in to speak w/ pt.
--- NOTE | 2020-06-03 14:42 | PC.NURSE ---
Report given to Amna HAGEN
--- NOTE | 2020-06-03 15:02 | MHC.CARE ---
Call from Noelle Alatorre from court called, patient's father is pursing a Section 35. She will reach out to Gianna Polanco in a few days to discuss.
[2020-06-03] MEDS: HaloperidoL 5 MG TABLET PO (16:24)
[2020-06-03] MEDS: Benztropine Mesylate 0.5 MG TABLET PO (16:24)
[2020-06-03] MEDS: LORazepam 1 MG TABLET PO ×2 (16:28→20:22)
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
[2020-06-03] MEDS: OLANZapine 10 MG TABLET 20 MG PO (20:22)
[2020-06-03] MEDS: traZODone HCL 100 MG TABLET PO (20:22)
[2020-06-04] MEDS: HaloperidoL 5 MG TABLET PO ×3 (00:55→18:45)
[2020-06-04] MEDS: LORazepam 1 MG TABLET PO ×4 (00:55→18:45)
[2020-06-04 08:41] LABS: Alanine Aminotransferase 13 U/L (0-40); Albumin Level 4.5 g/dL (3.5-5.0); Alkaline Phosphatase 59 U/L (39-117); Aspartate Amino Transferase 22 U/L (5-37); Bilirubin Total 0.4 mg/dL (0.0-1.0); Blood Urea Nitrogen 15 mg/dL (9-16); Cholesterol 151 mg/dL; Creatinine Clr Calc Pharmacy 97.1; Estimated Glomerular Filt Rate > 60; Glucose Fasting 104 mg/dL (60-99); HDL Cholesterol 54 mg/dL; LDL Cholesterol Calculated 83 mg/dl; Magnesium 2.4 mg/dL (1.6-2.6); Total Protein 6.7 g/dL (6.5-8.0); Triglycerides 71 mg/dL
[2020-06-04 08:48] LABS: Free T4 (Free Thyroxine) 0.97 ng/dL (0.71-1.85); Thyroid Stimulating Hormone 4.26 uIU/mL (0.32-4.0)
[2020-06-04 08:58] LABS: Anion Gap 12 (12-20); Carbon Dioxide 25 mmol/L (22-29); Chloride 106 mmol/L (96-108); Potassium 4.2 mmol/l (3.3-5.1); Sodium 139 mmol/L (135-145)
[2020-06-04 08:59] LABS: Calcium 9.3 mg/dL (8.4-10.2)
[2020-06-04] MEDS: Benztropine Mesylate 1 MG TABLET PO ×2 (09:05→19:42)
[2020-06-04 09:33] LABS: Estimated Average Glucose 94 mg/dL; Hemoglobin A1c % 4.9 %
[2020-06-04 09:49] LABS: Folate 11.6 ng/mL (> or = 4.0); Vitamin B12 265 pg/mL (200-900)
[2020-06-04] MEDS: Nicotine 21 MG PATCH.TD24 TRANSDERMA (10:13)
[2020-06-04 10:16] VITALS: BP 129/63; PULSE 100; RESP 16; TEMP 36.3; O2SAT 98
--- NOTE | 2020-06-04 11:04 | PC.NURSE ---
PT SIGNED A 3 DAY NOTICE ON SUNDAY 06/04 THAT IS UP ON FRIDAY 06/09.
[2020-06-04] MEDS: LORazepam 2 MG/ML VIAL IM (16:02)
[2020-06-04] MEDS: Benztropine Mesylate 2 MG/2 ML VIAL 1 MG IM (16:03)
[2020-06-04] MEDS: Haloperidol Lactate 5 MG/ML VIAL IM (16:03)
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
[2020-06-04 18:00] VITALS: BP 121/59; PULSE 97; TEMP 36.8
[2020-06-04] MEDS: Benztropine Mesylate 0.5 MG TABLET PO (18:45)
[2020-06-04] MEDS: OLANZapine 10 MG TABLET 20 MG PO (19:41)
[2020-06-04] MEDS: Divalproex Sodium 500 MG TABLET.DR PO (19:41)
[2020-06-04] MEDS: traZODone HCL 100 MG TABLET PO (19:42)
[2020-06-05 06:00] VITALS: BP 125/75; PULSE 104; RESP 16; TEMP 36.7; O2SAT 98
[2020-06-05 07:00] VITALS: BMI 32.3
[2020-06-05] MEDS: Benztropine Mesylate 1 MG TABLET PO ×2 (09:16→19:59)
[2020-06-05] MEDS: Divalproex Sodium 500 MG TABLET.DR PO ×2 (09:16→19:59)
[2020-06-05] MEDS: HaloperidoL 5 MG TABLET PO ×3 (09:16→15:58)
[2020-06-05] MEDS: Nicotine 21 MG PATCH.TD24 TRANSDERMA (09:18)
[2020-06-05] MEDS: LORazepam 1 MG TABLET PO (10:58)
[2020-06-05] MEDS: OLANZapine ODT 10 MG TAB.RAPDIS TRANSLINGU ×2 (11:28→17:59)
[2020-06-05] MEDS: Acetaminophen 325 MG TABLET 650 MG PO (12:00)
[2020-06-05] MEDS: LORazepam 1 MG TABLET 2 MG PO ×2 (14:42→19:41)
--- NOTE | 2020-06-05 15:15 | HO.PSYCHPN ---
Subjective Subjective Date of Service: 06/05/20 Reason For Visit: Schizoaffective Disorder Subjective Notes: 3 Day Interim History: Severe agitation, aggression. Thus far Haldol 15 mg, Lorazepam 3 mg, Zydis 10 mg, Benztropine 1 mg used. Pt asking for and accepting of prn medications. Regime changed to Haldol 5 tid, Olanzapine 20 mg hs and 10 mg bid prn, Lorazepam 2 mg q [address] Vizcaino[address] Chyna GUTIERREZSW able to clarify Abuse Prevention Order. We will not be able to talk with pt's parents. Medication Compliance: Yes Side effects from medications: No Attending Groups: No Review of Systems Review of Systems Yes Unobtainable due to mental status Reports behavioral changes Psychiatric: Reports behavioral changes, Reports irritability, Reports mood swings, Reports paranoia and Reports hallucinations Mental Status Exam Mental Status Exam Patient Appearance: Disheveled Patient Orientation: Person, Place and Situation Level of Consciousness: Awake, Restless, Alert and Combative Patient Behavior: Guarded, Talkative, Suspicious, Aggressive, Restless, Belligerent, Wandering, Verbal Threats, Swearing, Anxious, Fearful, Combative, Distractible, Confused, Impulsive and Pacing Mood Description: Suspicious, Constricted, Hostile, Labile, Angry and Apprehensive Affect Description: Suspicious, Constricted, Hostile, Labile and Angry Patient Cognition Impaired: Yes Speech Pattern: Clear, Perseverating, Spontaneous Speech, Rambling, Rapid, Loud, Pressured and Includes Profanity Memory Description: Episodic Impaired Hallucinations: Auditory Delusions: Being Controlled and Paranoid Ideation Thought Process: Racing, Illogical, Distracted, Rumination and Confusion Thought Content: positive for Flight of Ideas, positive for [place], positive for Obsessional Thoughts, positive for Circumstantial, positive for Perseveration and positive for Preoccupation Depressive Symptoms: Increased Irritability Abnormal Motor Activity Signs and Symptoms: Aggression, Agitation, Hyperactivity and Restlessness Judgement: Poor Diagnostics Vital Signs (24Hr): Vital Signs - 24 hr 06/04/20 18:00 06/05/20 06:00 Temperature 98.2 F 98.0 F Pulse Rate 97 104 H Respiratory Rate 16 Blood Pressure 121/59 L 125/75 Pulse Oximetry 98 Body Mass Index 32.3 Labs Results: 06/01/20 19:08 06/04/20 07:48 Labs: Laboratory Results - last 48 hr 06/04/20 06/04/20 06/04/20 07:48 07:48 07:48 Sodium 139 Potassium 4.2 Chloride 106 Carbon Dioxide 25 Anion Gap 12 BUN 15 Creatinine 1.19 Estim Creat Clear Calc 97.1 Estimated GFR > 60 Fasting Glucose 104 H Estimat Average Glucose 94 Hemoglobin A1c % 4.9 Calcium 9.3 D Magnesium 2.4 Total Bilirubin 0.4 AST 22 ALT 13 Alkaline Phosphatase 59 Total Protein 6.7 Albumin 4.5 Triglycerides 71 Cholesterol 151 LDL Cholesterol, Calc 83 HDL Cholesterol 54 Vitamin B12 265 Folate 11.6 TSH 4.26 H Free T4 0.97 Medications Medications Current Medications Generic Name Dose Route Start Last Admin Trade Name Freq PRN Reason Stop Dose Admin Acetaminophen 650 mg 06/03/20 16:04 06/05/20 12:00 Acetaminophen 325 Mg Tablet PO 650 mg Q6H PRN Administration Headache/Pain Mild Scale (1-3) Al Hydroxide/Mg Hydroxide 30 ml 06/03/20 16:04 Magnesium Hydrox/Alum Hydrox 30 Ml Oral.Susp PO Q6H PRN Heartburn/Nausea Benztropine Mesylate 1 mg 06/01/20 21:30 06/05/20 09:16 Benztropine Mesylate 1 Mg Tablet PO 1 mg BID LEONOR Administration Benztropine Mesylate 0.5 mg 06/03/20 16:17 06/04/20 18:45 Benztropine Mesylate 0.5 Mg Tablet PO 0.5 mg BID PRN Administration medication side effects Divalproex Sodium 500 mg 06/04/20 21:00 06/05/20 09:16 Divalproex Sodium 500 Mg Tablet.Dr PO 500 mg BID LEONOR Administration Haloperidol 5 mg 06/05/20 14:21 Haloperidol 5 Mg Tablet PO Q4H PRN psychosis, agitation Haloperidol Lactate 5 mg 06/05/20 15:00 06/05/20 14:42 Haloperidol Lactate 10 Mg/5 Ml Oral.Conc PO 5 mg TID LEONOR Administration Lorazepam 2 mg 06/05/20 14:21 06/05/20 14:42 Lorazepam 1 Mg Tablet PO 2 mg Q4H PRN Administration anxiety,agitation Magnesium Hydroxide 30 ml 06/03/20 16:04 Milk Of Magnesia 30 Ml Oral.Susp PO DAILY PRN Constipation Nicotine 21 mg 06/04/20 09:45 06/05/20 09:18 Nicotine 21 Mg Patch.Td24 TRANSDERMA 21 mg DAILY [facility] Administration Olanzapine 20 mg 06/01/20 21:30 06/04/20 19:41 Olanzapine 10 Mg Tablet PO 20 mg BEDTIME [facility]ON[facility] Administration Olanzapine 10 mg 06/05/20 14:32 Olanzapine Odt 10 Mg Tab.Rapdis TRANSLINGU BID PRN Psychosis Trazodone HCl 100 mg 06/01/20 21:30 06/04/20 19:42 Trazodone Hcl 100 Mg Tablet PO 100 mg BEDTIME [facility]ON[facility] Administration Allergies Allergies Allergy/AdvReac Type Severity Reaction Status Date / Time morphine [MORPHINE] AdvReac Unknown NAUSEA Unverified 03/12/20 14:28 Assessment & Plan Assessment & Plan (1) PTSD (post-traumatic stress disorder): Status: Acute Code(s): F43.10 - Post-traumatic stress disorder, unspecified (2) Schizoaffective disorder, bipolar type: Status: Acute Code(s): F25.0 - Schizoaffective disorder, bipolar type Assessment and Plan: Continue current regime. Will continue outreach to out pt prescriber at [facility]. (3) Cocaine use disorder: Status: Acute Code(s): F14.10 - Cocaine abuse, uncomplicated Greater than 50% of the session was spent on counseling and/or coordination of care
[2020-06-05 18:00] VITALS: BP 150/83; PULSE 119; TEMP 36.3
--- NOTE | 2020-06-05 18:00 | PC.NURSE ---
alcohol-approached desk reporting that ''i drink a lot at home'' ''i drink vodka'' ''i get drunk'' previously administered 2 mg ativan. accepted zyprexa ''i feel edgy''
[2020-06-05] MEDS: traZODone HCL 100 MG TABLET PO (19:58)
[2020-06-05] MEDS: OLANZapine 10 MG TABLET 20 MG PO (19:59)
[2020-06-06] MEDS: Divalproex Sodium 500 MG TABLET.DR PO ×2 (09:23→20:54)
[2020-06-06] MEDS: Benztropine Mesylate 1 MG TABLET PO ×2 (09:24→20:54)
[2020-06-06] MEDS: Nicotine 21 MG PATCH.TD24 TRANSDERMA (09:25)
[2020-06-06] MEDS: Magnesium Hydrox/Alum Hydrox 30 ML ORAL.SUSP PO (10:24)
[2020-06-06] MEDS: LORazepam 1 MG TABLET 2 MG PO ×3 (10:25→23:44)
[2020-06-06 10:55] VITALS: BP 124/74; PULSE 98; RESP 16; TEMP 36.7; O2SAT 97
[2020-06-06] MEDS: OLANZapine ODT 10 MG TAB.RAPDIS TRANSLINGU ×2 (12:29→17:21)
[2020-06-06] MEDS: HaloperidoL 5 MG TABLET PO ×2 (15:06→23:44)
[2020-06-06] MEDS: Benztropine Mesylate 0.5 MG TABLET PO ×2 (15:06→20:54)
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
[2020-06-06 16:33] VITALS: BP 117/71; PULSE 108; TEMP 36.9
--- NOTE | 2020-06-06 16:49 | PC.NURSE ---
[facility] has returned patients call and are speaking to him now.
--- NOTE | 2020-06-06 18:41 | PC.NURSE ---
patient has began to become agitated in the context of wanting to leave. received a call from [facility] informing him that he must stay in the hospital. pt is dissatisfied with this and has been hitting, kicking and body slamming his body against the wall. ''i am not going to stay'' ''i am getting out of this place'' posturing/threatening. threw coffee cup smashing it. medication restraint requested from psychiatrist. security on the unit. patient huffing, loud sighs. angry about hospitalization.
--- NOTE | 2020-06-06 19:10 | PC.NURSE ---
pt given im of ativan 2 mg, haldol 5 mg, and 1 mg cogentin. no hold was required for injection. pt continues restless and focused on wanting discharge. insulting security. continuing to want discharge. is up ambulating in hallways, eating and drinking. hospitalist notified of medication restraint and report given.
[2020-06-06] MEDS: Benztropine Mesylate 2 MG/2 ML VIAL 1 MG IM (19:12)
[2020-06-06] MEDS: LORazepam 2 MG/ML VIAL IM (19:13)
[2020-06-06] MEDS: Haloperidol Lactate 5 MG/ML VIAL IM (19:14)
--- NOTE | 2020-06-06 19:22 | PC.NURSE ---
seen by hospitalist at this time.
--- NOTE | 2020-06-06 19:25 | PM.EVENT ---
Event Note Date of Service: 06/06/20 Event Note: Called to see patient after chemical restraint. patient had become agitated, hitting, kicking and body slamming his body against the wall. 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 appeared calm and cooperated with vital signs mild tachycardia, otherwise vital signs stable General: awake & alert, ambulating freely CV: mild tachycardia, no M/R/G pulm: breathing easy, non-labored, CTA b/l
[2020-06-06] MEDS: traZODone HCL 100 MG TABLET PO (20:54)
[2020-06-06] MEDS: OLANZapine 10 MG TABLET 20 MG PO (20:54)
--- NOTE | 2020-06-06 22:32 | PC.NURSE ---
pt has remained in behavioral control. he is still focused on wanting discharge. pt has remained up and visible. he is no longer posturing or hitting objects. verbalizations continue about wanting to leave.
--- NOTE | 2020-06-07 09:32 | HO.PSYCHPN ---
Subjective Subjective Date of Service: 06/07/20 Reason For Visit: Schizoaffective Disorder Interim History: Meeded med restraint yesterday. Remains psychotic and as usual will only talk about DC. Menacing manner. Started making odd bird sounds. Petition pending. Medication Compliance: Intermittent Side effects from medications: No Attending Groups: No Mental Status Exam Mental Status Exam Patient Appearance: Disheveled Level of Consciousness: Restless Patient Behavior: Posturing, Aggressive, Restless and Belligerent Mood Description: Suspicious Speech Pattern: Mumbled Hallucinations: Auditory Thought Content: positive for Disorganized Abnormal Motor Activity Signs and Symptoms: Agitation and Restlessness Diagnostics Vital Signs (24Hr): Vital Signs - 24 hr 06/06/20 10:55 06/06/20 16:33 Temperature 98.0 F 98.5 F Pulse Rate 98 108 H Respiratory Rate 16 Blood Pressure 124/74 117/71 Pulse Oximetry 97 Body Mass Index 32.3 Labs Results: 06/01/20 19:08 06/04/20 07:48 Medications Medications Current Medications Generic Name Dose Route Start Last Admin Trade Name Freq PRN Reason Stop Dose Admin Acetaminophen 650 mg 06/03/20 16:04 06/05/20 12:00 Acetaminophen 325 Mg Tablet PO 650 mg Q6H PRN Administration Headache/Pain Mild Scale (1-3) Al Hydroxide/Mg Hydroxide 30 ml 06/03/20 16:04 06/06/20 10:24 Magnesium Hydrox/Alum Hydrox 30 Ml Oral.Susp PO 30 ml Q6H PRN Administration Heartburn/Nausea Benztropine Mesylate 1 mg 06/01/20 21:30 06/06/20 20:54 Benztropine Mesylate 1 Mg Tablet PO 1 mg BID LEONOR Administration Benztropine Mesylate 0.5 mg 06/03/20 16:17 06/06/20 20:54 Benztropine Mesylate 0.5 Mg Tablet PO 0.5 mg BID PRN Administration medication side effects Divalproex Sodium 500 mg 06/04/20 21:00 06/06/20 20:54 Divalproex Sodium 500 Mg Tablet.Dr PO 500 mg BID LEONOR Administration Haloperidol 5 mg 06/05/20 14:21 06/06/20 23:44 Haloperidol 5 Mg Tablet PO 5 mg Q4H PRN Administration psychosis, agitation Haloperidol Lactate 5 mg 06/05/20 15:00 06/06/20 20:55 Haloperidol Lactate 10 Mg/5 Ml Oral.Conc PO 5 mg TID LEONOR Administration Lorazepam 2 mg 06/05/20 14:21 06/06/20 23:44 Lorazepam 1 Mg Tablet PO 2 mg Q4H PRN Administration anxiety,agitation Magnesium Hydroxide 30 ml 06/03/20 16:04 Milk Of Magnesia 30 Ml Oral.Susp PO DAILY PRN Constipation Nicotine 21 mg 06/04/20 09:45 06/06/20 09:25 Nicotine 21 Mg Patch.Td24 TRANSDERMA 21 mg DAILY LEONRO Administration Olanzapine 20 mg 06/01/20 21:30 06/06/20 20:54 Olanzapine 10 Mg Tablet PO 20 mg BEDTIME LEONOR Administration Olanzapine 10 mg 06/05/20 14:32 06/06/20 17:21 Olanzapine Odt 10 Mg Tab.Rapdis TRANSLINGU 10 mg BID PRN Administration Psychosis Trazodone HCl 100 mg 06/01/20 21:30 06/06/20 20:54 Trazodone Hcl 100 Mg Tablet PO 100 mg BEDTIME LEONOR Administration Allergies Allergies Allergy/AdvReac Type Severity Reaction Status Date / Time morphine [MORPHINE] AdvReac Unknown NAUSEA Unverified 03/12/20 14:28 Assessment & Plan Greater than 50% of the session was spent on counseling and/or coordination of careCt treatment plan. Has PRNs but may need restraints as escalates easily Reason for contiued inpatient stay Substantial Risk for: harm to others and rapid decompensation
[2020-06-07] MEDS: Nicotine 21 MG PATCH.TD24 TRANSDERMA (10:10)
[2020-06-07] MEDS: Divalproex Sodium 500 MG TABLET.DR PO ×2 (10:10→20:21)
[2020-06-07] MEDS: Benztropine Mesylate 1 MG TABLET PO ×2 (10:10→20:22)
[2020-06-07] MEDS: LORazepam 1 MG TABLET 2 MG PO ×4 (10:10→23:07)
[2020-06-07] MEDS: Acetaminophen 325 MG TABLET 650 MG PO ×2 (10:47→16:25)
[2020-06-07] MEDS: OLANZapine ODT 10 MG TAB.RAPDIS TRANSLINGU ×2 (11:37→21:00)
[2020-06-07] MEDS: HaloperidoL 5 MG TABLET PO ×2 (11:37→18:51)
[2020-06-07 16:27] VITALS: BP 139/64; PULSE 111; TEMP 36.9
[2020-06-07] MEDS: Benztropine Mesylate 0.5 MG TABLET PO (18:52)
[2020-06-07] MEDS: traZODone HCL 100 MG TABLET PO (20:21)
[2020-06-07] MEDS: OLANZapine 10 MG TABLET 20 MG PO (20:21)
--- NOTE | 2020-06-07 23:59 | PC.NURSE ---
expert medical writer attempted to review [facility] comment form with patient. patient looked at expert medical writer and stated ''forgive me for what I said to you'' reported that ''i really want to talk about yesterday'' then followed up with ''i still want to go home''
--- NOTE | 2020-06-08 08:12 | P.PNPSI_ITS ---
Subjective Subjective Date of Service: 06/08/20 Reason For Visit: Schizoaffective Disorder Interim History: Much the same. No insight. Remains psychotic and as usual will only talk about [place]. Menacing manner. Petition pending. Review of Systems Review of Systems Yes all other systems are reviewed and are negative and Unobtainable due to mental status Reports Abnormal speech present, Reports behavioral changes and Reports confus ion Psychiatric: Reports behavioral changes, Reports confusion, Reports difficulty concentrating, Reports auditory hallucinations, Reports irritability, Reports mood swings, Reports paranoia, Reports hallucinations and Reports homicidal ideation Mental Status Exam Mental Status Exam Patient Appearance: Disheveled Patient Orientation: Person, Place and Situation Level of Consciousness: Restless Patient Behavior: Posturing, Aggressive, Restless and Belligerent Mood Description: Suspicious Affect Description: Labile Patient Cognition Impaired: Yes Ability to Follow Directions: Fair Speech Pattern: Mumbled Memory Description: Remote Impaired and Episodic Impaired Diagnostics Vital Signs (24Hr): Vital Signs - 24 hr 06/07/20 16:27 Temperature 98.5 F Pulse Rate 111 H Blood Pressure 139/64 Body Mass Index 32.3 Labs Results: 06/01/20 19:08 06/04/20 07:48 Medications Medications Current Medications Generic Name Dose Route Start Last Admin Trade Name Freq PRN Reason Stop Dose Admin Acetaminophen 650 mg 06/03/20 16:04 06/07/20 16:25 Acetaminophen 325 Mg Tablet PO 650 mg Q6H PRN Administration Headache/Pain Mild Scale (1-3) Al Hydroxide/Mg Hydroxide 30 ml 06/03/20 16:04 06/06/20 10:24 Magnesium Hydrox/Alum Hydrox 30 Ml Oral.Susp PO 30 ml Q6H PRN Administration Heartburn/Nausea Benztropine Mesylate 1 mg 06/01/20 21:30 06/07/20 20:22 Benztropine Mesylate 1 Mg Tablet PO 1 mg BID LEONOR Administration Benztropine Mesylate 0.5 mg 06/03/20 16:17 06/07/20 18:52 Benztropine Mesylate 0.5 Mg Tablet PO 0.5 mg BID PRN Administration medication side effects Divalproex Sodium 500 mg 06/04/20 21:00 06/07/20 20:21 Divalproex Sodium 500 Mg Tablet.Dr PO 500 mg BID LEONOR Administration Haloperidol 5 mg 06/05/20 14:21 06/07/20 18:51 Haloperidol 5 Mg Tablet PO 5 mg Q4H PRN Administration psychosis, agitation Haloperidol Lactate 5 mg 06/05/20 15:00 06/07/20 20:21 Haloperidol Lactate 10 Mg/5 Ml Oral.Conc PO 5 mg TID LEONOR Administration Lorazepam 2 mg 06/05/20 14:21 06/07/20 23:07 Lorazepam 1 Mg Tablet PO 2 mg Q4H PRN Administration anxiety,agitation Magnesium Hydroxide 30 ml 06/03/20 16:04 Milk Of Magnesia 30 Ml Oral.Susp PO DAILY PRN Constipation Nicotine 21 mg 06/04/20 09:45 06/07/20 10:10 Nicotine 21 Mg Patch.Td24 TRANSDERMA 21 mg DAILY LEONOR Administration Olanzapine 20 mg 06/01/20 21:30 06/07/20 20:21 Olanzapine 10 Mg Tablet PO 20 mg BEDTIME LEONOR Administration Olanzapine 10 mg 06/05/20 14:32 06/07/20 21:00 Olanzapine Odt 10 Mg Tab.Rapdis TRANSLINGU 10 mg BID PRN Administration Psychosis Trazodone HCl 100 mg 06/01/20 21:30 06/07/20 20:21 Trazodone Hcl 100 Mg Tablet PO 100 mg BEDTIME LEONOR Administration Allergies Allergies Allergy/AdvReac Type Severity Reaction Status Date / Time morphine [MORPHINE] AdvReac Unknown NAUSEA Unverified 03/12/20 14:28 Assessment & Plan Assessment & Plan (1) Schizoaffective disorder, bipolar type: Status: Acute Code(s): F25.0 - Schizoaffective disorder, bipolar type Assessment and Plan: -Continue current plan -Will file for consideration of civil commitment (2) Cocaine use disorder: Status: Acute Code(s): F14.10 - Cocaine abuse, uncomplicated Assessment and Plan: -Family looking into Section [place] filing. (3) PTSD (post-traumatic stress disorder): Status: Acute Code(s): F43.10 - Post-traumatic stress disorder, unspecified (4) PCP abuse: Status: Acute Code(s): F16.10 - Hallucinogen abuse, uncomplicated Greater than 50% of the session was spent on counseling and/or coordination of care Reason for contiued inpatient stay Substantial Risk for: harm to others
[2020-06-08] MEDS: Benztropine Mesylate 1 MG TABLET PO ×2 (09:05→20:27)
[2020-06-08] MEDS: Divalproex Sodium 500 MG TABLET.DR PO ×2 (09:05→20:27)
[2020-06-08] MEDS: LORazepam 1 MG TABLET 2 MG PO ×3 (09:05→20:28)
[2020-06-08] MEDS: OLANZapine ODT 10 MG TAB.RAPDIS TRANSLINGU (09:05)
[2020-06-08] MEDS: Nicotine 21 MG PATCH.TD24 TRANSDERMA (09:05)
[2020-06-08] MEDS: HaloperidoL 5 MG TABLET PO ×2 (11:41→16:33)
[2020-06-08] MEDS: Acetaminophen 325 MG TABLET 650 MG PO (14:06)
[2020-06-08] MEDS: Benztropine Mesylate 0.5 MG TABLET PO (16:34)
[2020-06-08 17:46] VITALS: BP 148/77; PULSE 107; TEMP 36.8
[2020-06-08] MEDS: OLANZapine 10 MG TABLET 20 MG PO (20:27)
[2020-06-08] MEDS: traZODone HCL 100 MG TABLET PO (20:28)
[2020-06-09] MEDS: Divalproex Sodium 500 MG TABLET.DR PO ×2 (08:52→20:34)
[2020-06-09] MEDS: Benztropine Mesylate 1 MG TABLET PO ×2 (08:52→20:35)
[2020-06-09] MEDS: Nicotine 21 MG PATCH.TD24 TRANSDERMA (08:53)
[2020-06-09] MEDS: LORazepam 1 MG TABLET 2 MG PO ×2 (10:55→19:13)
[2020-06-09 11:14] VITALS: BP 130/74; PULSE 101; RESP 16; TEMP 36.9; O2SAT 98
[2020-06-09] MEDS: OLANZapine ODT 10 MG TAB.RAPDIS TRANSLINGU (12:55)
[2020-06-09] MEDS: LORazepam 2 MG/ML VIAL IM (13:50)
[2020-06-09] MEDS: Haloperidol Lactate 5 MG/ML VIAL 10 MG IM (13:50)
[2020-06-09] MEDS: Benztropine Mesylate 2 MG/2 ML VIAL 1 MG IM (13:50)
[2020-06-09 14:05] VITALS: BP 126/69; PULSE 113; RESP 16; TEMP 36.9
[2020-06-09 14:20] VITALS: BP 146/78; PULSE 117; RESP 16; O2SAT 98
[2020-06-09 16:30] VITALS: BP 126/61; PULSE 88; TEMP 37
--- NOTE | 2020-06-09 17:39 | P.PNPSI_ITS ---
Subjective Subjective Date of Service: 06/09/20 Reason For Visit: Schizoaffective Disorder Subjective Notes: 3 Day (06/09/20) Interim History: TDN today. Civil Commitment petition filed. Pt able to process with team. Angry when we spoke of it. Unable to process and understand family, community, out pt team concerns for his well-being and safety. Unable to hear concerns about pt not being able to go home currently due to protective order. Unable to focus on anything but leaving. Agitation and aggression increased with pt requiring chemical restraint 150PM. Court scheduled for 06/12/20. Pt is aware. Medication Compliance: Yes Side effects from medications: No Attending Groups: No Review of Systems Review of Systems Yes Unobtainable due to mental status Mental Status Exam Mental Status Exam Patient Appearance: Appropriate Patient Orientation: Person and Place Level of Consciousness: Awake, Alert and Combative Patient Behavior: Talkative, Suspicious, Verbal Threats, Swearing, Anxious, Fearful, Resistive to Care, Avoidant, Combative, Distractible, Good Eye Contact, Uncooperative and Pacing Mood Description: Suspicious, Withdrawn, Hostile, Anxious, Labile, Angry and Nervous Affect Description: Labile Patient Cognition Impaired: Yes Ability to Follow Directions: Fair Speech Pattern: Perseverating, Spontaneous Speech, Loud, Pressured and Includes Profanity Memory Description: Episodic Impaired Hallucinations: None (pt denies) Delusions: Being Controlled and Paranoid Ideation Thought Process: Illogical, Distracted, Rumination and Evasive Thought Content: positive for Flight of Ideas, positive for [place], positive for Obsessional Thoughts, positive for Circumstantial, positive for Perseveration, positive for Evasive and positive for Homicidal Ideation Depressive Symptoms: Increased Irritability, Loss of Int. in Activity and Unhappiness Abnormal Motor Activity Signs and Symptoms: Aggression, Agitation, Hyperactivity and Restlessness Judgement: Poor Diagnostics Vital Signs (24Hr): Vital Signs - 24 hr 06/08/20 17:46 06/09/20 11:14 06/09/20 14:05 Temperature 98.3 F 98.5 F 98.5 F Pulse Rate 107 H 101 H 113 H Respiratory Rate 16 16 Blood Pressure 148/77 H 130/74 126/69 Pulse Oximetry 98 06/09/20 14:20 06/09/20 16:30 Temperature 98.6 F Pulse Rate 117 H 88 Respiratory Rate 16 Blood Pressure 146/78 H 126/61 Pulse Oximetry 98 Body Mass Index 32.3 Labs Results: 06/01/20 19:08 06/04/20 07:48 Medications Medications Current Medications Generic Name Dose Route Start Last Admin Trade Name Freq PRN Reason Stop Dose Admin Acetaminophen 650 mg 06/03/20 16:04 06/08/20 14:06 Acetaminophen 325 Mg Tablet PO 650 mg Q6H PRN Administration Headache/Pain Mild Scale (1-3) Al Hydroxide/Mg Hydroxide 30 ml 06/03/20 16:04 06/06/20 10:24 Magnesium Hydrox/Alum Hydrox 30 Ml Oral.Susp PO 30 ml Q6H PRN Administration Heartburn/Nausea Benztropine Mesylate 1 mg 06/01/20 21:30 06/09/20 08:52 Benztropine Mesylate 1 Mg Tablet PO 1 mg BID LEONOR Administration Benztropine Mesylate 0.5 mg 06/03/20 16:17 06/08/20 16:34 Benztropine Mesylate 0.5 Mg Tablet PO 0.5 mg BID PRN Administration medication side effects Divalproex Sodium 500 mg 06/04/20 21:00 06/09/20 08:52 Divalproex Sodium 500 Mg Tablet.Dr PO 500 mg BID LEONOR Administration Haloperidol 5 mg 06/05/20 14:21 06/08/20 16:33 Haloperidol 5 Mg Tablet PO 5 mg Q4H PRN Administration psychosis, agitation Haloperidol Lactate 5 mg 06/05/20 15:00 06/09/20 14:59 Haloperidol Lactate 10 Mg/5 Ml Oral.Conc PO Not Given TID LEONOR Lorazepam 2 mg 06/05/20 14:21 06/09/20 10:55 Lorazepam 1 Mg Tablet PO 2 mg Q4H PRN Administration anxiety,agitation Magnesium Hydroxide 30 ml 06/03/20 16:04 Milk Of Magnesia 30 Ml Oral.Susp PO DAILY PRN Constipation Nicotine 21 mg 06/04/20 09:45 06/09/20 08:53 Nicotine 21 Mg Patch.Td24 TRANSDERMA 21 mg DAILY LEONOR Administration Olanzapine 20 mg 06/01/20 21:30 06/08/20 20:27 Olanzapine 10 Mg Tablet PO 20 mg BEDTIME LEONOR Administration Olanzapine 10 mg 06/05/20 14:32 06/09/20 12:55 Olanzapine Odt 10 Mg Tab.Rapdis TRANSLINGU 10 mg BID PRN Administration Psychosis Trazodone HCl 100 mg 06/01/20 21:30 06/08/20 20:28 Trazodone Hcl 100 Mg Tablet PO 100 mg BEDTIME LEONOR Administration Allergies Allergies Allergy/AdvReac Type Severity Reaction Status Date / Time morphine [MORPHINE] AdvReac Unknown NAUSEA Unverified 03/12/20 14:28 Assessment & Plan Assessment & Plan (1) PCP abuse: Status: Acute Code(s): F16.10 - Hallucinogen abuse, uncomplicated (2) PTSD (post-traumatic stress disorder): Status: Acute Code(s): F43.10 - Post-traumatic stress disorder, unspecified (3) Schizoaffective disorder, bipolar type: Status: Acute Code(s): F25.0 - Schizoaffective disorder, bipolar type (4) Cocaine use disorder: Status: Acute Code(s): F14.10 - Cocaine abuse, uncomplicated Greater than 50% of the session was spent on counseling and/or coordination of care Reason for contiued inpatient stay Substantial Risk for: harm to self, harm to others, inability to function and rapid decompensation
[2020-06-09] MEDS: Benztropine Mesylate 0.5 MG TABLET PO (19:14)
[2020-06-09] MEDS: HaloperidoL 5 MG TABLET PO (19:14)
[2020-06-09] MEDS: OLANZapine 10 MG TABLET 20 MG PO (20:34)
[2020-06-09] MEDS: traZODone HCL 100 MG TABLET PO (20:35)
--- NOTE | 2020-06-10 10:10 | P.PNPSI_ITS ---
Subjective Subjective Date of Service: 06/10/20 Reason For Visit: Schizoaffective Disorder Subjective Notes: 3 Day Interim History: Calm, approachable. Discussed addictions consult which he will agree to. Court date scheduled for 06/12/20. Medication Compliance: Yes Side effects from medications: No Attending Groups: No Review of Systems Psychiatric: Reports anxiety, Reports depression and Reports mood swings Mental Status Exam Mental Status Exam Patient Appearance: Appropriate Patient Orientation: Person, Place, Time and Situation Level of Consciousness: Awake and Alert Patient Behavior: Guarded Mood Description: Suspicious, Anxious and Labile Affect Description: Labile Patient Cognition Impaired: No Ability to Follow Directions: Fair Speech Pattern: Perseverating and Spontaneous Speech Memory Description: Episodic Impaired Hallucinations: None (denies) Delusions: Being Controlled Thought Process: Rumination Thought Content: positive for [place] and positive for Circumstantial Depressive Symptoms: Increased Irritability and Difficulty Concentrating Abnormal Motor Activity Signs and Symptoms: Restlessness Judgement: Fair Diagnostics Vital Signs (24Hr): Vital Signs - 24 hr 06/09/20 11:14 06/09/20 14:05 06/09/20 14:20 Temperature 98.5 F 98.5 F Pulse Rate 101 H 113 H 117 H Respiratory Rate 16 16 16 Blood Pressure 130/74 126/69 146/78 H Pulse Oximetry 98 98 06/09/20 16:30 Temperature 98.6 F Pulse Rate 88 Respiratory Rate Blood Pressure 126/61 Pulse Oximetry Body Mass Index 32.3 Labs Results: 06/01/20 19:08 06/04/20 07:48 Medications Medications Current Medications Generic Name Dose Route Start Last Admin Trade Name Freq PRN Reason Stop Dose Admin Acetaminophen 650 mg 06/03/20 16:04 06/08/20 14:06 Acetaminophen 325 Mg Tablet PO 650 mg Q6H PRN Administration Headache/Pain Mild Scale (1-3) Al Hydroxide/Mg Hydroxide 30 ml 06/03/20 16:04 06/06/20 10:24 Magnesium Hydrox/Alum Hydrox 30 Ml Oral.Susp PO 30 ml Q6H PRN Administration Heartburn/Nausea Benztropine Mesylate 1 mg 06/01/20 21:30 06/09/20 20:35 Benztropine Mesylate 1 Mg Tablet PO 1 mg BID LEONOR Administration Benztropine Mesylate 0.5 mg 06/03/20 16:17 06/09/20 19:14 Benztropine Mesylate 0.5 Mg Tablet PO 0.5 mg BID PRN Administration medication side effects Divalproex Sodium 500 mg 06/04/20 21:00 06/09/20 20:34 Divalproex Sodium 500 Mg Tablet.Dr PO 500 mg BID LEONOR Administration Haloperidol 5 mg 06/05/20 14:21 06/09/20 19:14 Haloperidol 5 Mg Tablet PO 5 mg Q4H PRN Administration psychosis, agitation Haloperidol Lactate 5 mg 06/05/20 15:00 06/09/20 20:34 Haloperidol Lactate 10 Mg/5 Ml Oral.Conc PO 5 mg TID LEONOR Administration Lorazepam 2 mg 06/05/20 14:21 06/09/20 19:13 Lorazepam 1 Mg Tablet PO 2 mg Q4H PRN Administration anxiety,agitation Magnesium Hydroxide 30 ml 06/03/20 16:04 Milk Of Magnesia 30 Ml Oral.Susp PO DAILY PRN Constipation Nicotine 21 mg 06/04/20 09:45 06/09/20 08:53 Nicotine 21 Mg Patch.Td24 TRANSDERMA 21 mg DAILY LEONOR Administration Olanzapine 20 mg 06/01/20 21:30 06/09/20 20:34 Olanzapine 10 Mg Tablet PO 20 mg BEDTIME LEONOR Administration Olanzapine 10 mg 06/05/20 14:32 06/09/20 12:55 Olanzapine Odt 10 Mg Tab.Rapdis TRANSLINGU 10 mg BID PRN Administration Psychosis Trazodone HCl 100 mg 06/01/20 21:30 06/09/20 20:35 Trazodone Hcl 100 Mg Tablet PO 100 mg BEDTIME LEONOR Administration Allergies Allergies Allergy/AdvReac Type Severity Reaction Status Date / Time morphine [MORPHINE] AdvReac Unknown NAUSEA Unverified 03/12/20 14:28 Assessment & Plan Assessment & Plan (1) Cocaine use disorder: Status: Acute Code(s): F14.10 - Cocaine abuse, uncomplicated Assessment and Plan: -Pt agrees to addiction consultation (2) PCP abuse: Status: Acute Code(s): F16.10 - Hallucinogen abuse, uncomplicated (3) PTSD (post-traumatic stress disorder): Status: Acute Code(s): F43.10 - Post-traumatic stress disorder, unspecified (4) Schizoaffective disorder, bipolar type: Status: Acute Code(s): F25.0 - Schizoaffective disorder, bipolar type Assessment and Plan: -Increase Depakote to 500 mg a.m. 1000 mg h.s. Greater than 50% of the session was spent on counseling and/or coordination of care Reason for contiued inpatient stay Substantial Risk for: harm to self, harm to others, inability to function and rapid decompensation
[2020-06-10] MEDS: Benztropine Mesylate 1 MG TABLET PO ×2 (10:23→20:18)
[2020-06-10] MEDS: Divalproex Sodium 500 MG TABLET.DR PO (10:23)
[2020-06-10] MEDS: Nicotine 21 MG PATCH.TD24 TRANSDERMA (10:25)
[2020-06-10] MEDS: LORazepam 1 MG TABLET 2 MG PO (11:48)
[2020-06-10] MEDS: OLANZapine ODT 10 MG TAB.RAPDIS TRANSLINGU (11:48)
[2020-06-10] MEDS: Acetaminophen 325 MG TABLET 650 MG PO ×2 (14:35→21:25)
[2020-06-10 18:00] VITALS: BP 130/71; PULSE 111; TEMP 37.3
[2020-06-10] MEDS: Divalproex Sodium 500 MG TABLET.DR 1000 MG PO (20:17)
[2020-06-10] MEDS: traZODone HCL 100 MG TABLET PO (20:18)
[2020-06-10] MEDS: OLANZapine 10 MG TABLET 20 MG PO (20:19)
[2020-06-11] MEDS: Divalproex Sodium 500 MG TABLET.DR PO (10:50)
[2020-06-11] MEDS: Benztropine Mesylate 1 MG TABLET PO ×2 (10:50→20:53)
[2020-06-11] MEDS: Nicotine 21 MG PATCH.TD24 TRANSDERMA (10:51)
[2020-06-11] MEDS: Acetaminophen 325 MG TABLET 650 MG PO (13:19)
[2020-06-11] MEDS: OLANZapine ODT 10 MG TAB.RAPDIS TRANSLINGU (13:20)
[2020-06-11 13:24] VITALS: BP 151/81; PULSE 111; RESP 14; TEMP 36.4; O2SAT 100
[2020-06-11] MEDS: Benztropine Mesylate 0.5 MG TABLET PO ×2 (16:36→22:44)
[2020-06-11] MEDS: LORazepam 1 MG TABLET 2 MG PO ×2 (16:36→20:57)
[2020-06-11] MEDS: HaloperidoL 5 MG TABLET PO (16:36)
[2020-06-11 16:41] VITALS: BP 135/83; PULSE 104; TEMP 37.2
--- NOTE | 2020-06-11 17:32 | HO.PSYCHPN ---
Subjective Subjective Date of Service: 06/11/20 Reason For Visit: Schizoaffective Disorder Subjective Notes: Legal Status (Section VII) Interim History: Court for civil commitment hearing scheduled for 06/12. Pt seen by Mónica Leong NP for addictions evaluation. TC with Chyna Squires RJ and pt's father to discuss the possibility of pt going home. Father reports pt is welcome at home, however, father believes there will be no changes-pt wanting his monthly check to spend on drugs which increases labile, violent behavior. Pt refuses all day structure-school, work, day program telling father he is too ill, however, is participating in drug use outside of the home. Met with patient and Chyna Sierrahumble, explained court date, father's willingness to accept him at home and [facility] application. Pt was non-commited to allowing [facility] services, at one point indicating he thought we were wierd . His focus is on discharge. Will pursue court decision. Review of Systems Psychiatric: Reports anxiety, Reports depression and Reports difficulty concentrating Mental Status Exam Mental Status Exam Patient Appearance: Appropriate Patient Orientation: Person, Place and Situation Level of Consciousness: Awake, Restless and Alert Patient Behavior: Guarded, Suspicious and Restless Mood Description: Suspicious Affect Description: Constricted Patient Cognition Impaired: No Ability to Follow Directions: Fair Speech Pattern: Spontaneous Speech Memory Description: Episodic Impaired Hallucinations: None Delusions: Paranoid Ideation Thought Process: Rumination Thought Content: positive for [place] and positive for Circumstantial Depressive Symptoms: Increased Anxiety Abnormal Motor Activity Signs and Symptoms: Restlessness Judgement: Fair Diagnostics Vital Signs (24Hr): Vital Signs - 24 hr 06/10/20 18:00 06/11/20 13:24 06/11/20 16:41 Temperature 99.1 F 97.6 F 98.9 F Pulse Rate 111 H 111 H 104 H Respiratory Rate 14 Blood Pressure 130/71 151/81 H 135/83 Pulse Oximetry 100 Body Mass Index 32.3 Labs Results: 06/01/20 19:08 06/04/20 07:48 Medications Medications Current Medications Generic Name Dose Route Start Last Admin Trade Name Freq PRN Reason Stop Dose Admin Acetaminophen 650 mg 06/03/20 16:04 06/11/20 13:19 Acetaminophen 325 Mg Tablet PO 650 mg Q6H PRN Administration Headache/Pain Mild Scale (1-3) Al Hydroxide/Mg Hydroxide 30 ml 06/03/20 16:04 06/06/20 10:24 Magnesium Hydrox/Alum Hydrox 30 Ml Oral.Susp PO 30 ml Q6H PRN Administration Heartburn/Nausea Benztropine Mesylate 1 mg 06/01/20 21:30 06/11/20 10:50 Benztropine Mesylate 1 Mg Tablet PO 1 mg BID LEONOR Administration Benztropine Mesylate 0.5 mg 06/03/20 16:17 06/11/20 16:36 Benztropine Mesylate 0.5 Mg Tablet PO 0.5 mg BID PRN Administration medication side effects Divalproex Sodium 500 mg 06/11/20 09:00 06/11/20 10:50 Divalproex Sodium 500 Mg Tablet. PO 500 mg DAILY LEONOR Administration Divalproex Sodium 1,000 mg 06/10/20 21:00 06/10/20 20:17 Divalproex Sodium 500 Mg Tablet. PO 1,000 mg BEDTIME LEONOR Administration Haloperidol 5 mg 06/05/20 14:21 06/11/20 16:36 Haloperidol 5 Mg Tablet PO 5 mg Q4H PRN Administration psychosis, agitation Haloperidol Lactate 5 mg 06/05/20 15:00 06/11/20 14:11 Haloperidol Lactate 10 Mg/5 Ml Oral.Conc PO 5 mg TID LEONOR Administration Lorazepam 2 mg 06/11/20 14:15 06/11/20 16:36 Lorazepam 1 Mg Tablet PO 2 mg Q4H PRN Administration agitation Magnesium Hydroxide 30 ml 06/03/20 16:04 Milk Of Magnesia 30 Ml Oral.Susp PO DAILY PRN Constipation Nicotine 21 mg 06/04/20 09:45 06/11/20 10:51 Nicotine 21 Mg Patch.Td24 TRANSDERMA 21 mg DAILY LEONOR Administration Olanzapine 20 mg 06/01/20 21:30 06/10/20 20:19 Olanzapine 10 Mg Tablet PO 20 mg BEDTIME LEONOR Administration Olanzapine 10 mg 06/05/20 14:32 06/11/20 13:20 Olanzapine Odt 10 Mg Tab.Rapdis TRANSLINGU 10 mg BID PRN Administration Psychosis Trazodone HCl 100 mg 06/01/20 21:30 06/10/20 20:18 Trazodone Hcl 100 Mg Tablet PO 100 mg BEDTIME LEONOR Administration Allergies Allergies Allergy/AdvReac Type Severity Reaction Status Date / Time morphine [MORPHINE] AdvReac Unknown NAUSEA Unverified 03/12/20 14:28 Assessment & Plan Assessment & Plan (1) Schizoaffective disorder, bipolar type: Status: Acute Code(s): F25.0 - Schizoaffective disorder, bipolar type (2) PTSD (post-traumatic stress disorder): Status: Acute Code(s): F43.10 - Post-traumatic stress disorder, unspecified (3) PCP abuse: Status: Acute Code(s): F16.10 - Hallucinogen abuse, uncomplicated (4) Cocaine use disorder: Status: Acute Code(s): F14.10 - Cocaine abuse, uncomplicated Greater than 50% of the session was spent on counseling and/or coordination of care Reason for contiued inpatient stay Substantial Risk for: harm to self, harm to others, inability to function and rapid decompensation
[2020-06-11] MEDS: traZODone HCL 100 MG TABLET PO (20:53)
[2020-06-11] MEDS: Divalproex Sodium 500 MG TABLET.DR 1000 MG PO (20:53)
[2020-06-11] MEDS: OLANZapine 10 MG TABLET 20 MG PO (20:53)
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
[2020-06-12] MEDS: LORazepam 1 MG TABLET 2 MG PO ×2 (09:25→13:48)
[2020-06-12] MEDS: Nicotine 21 MG PATCH.TD24 TRANSDERMA (09:25)
[2020-06-12] MEDS: Benztropine Mesylate 1 MG TABLET PO (09:25)
[2020-06-12 09:50] VITALS: BP 120/58; PULSE 85; RESP 16; TEMP 36.9; O2SAT 98
[2020-06-12 09:51] VITALS: BMI 32.5
[2020-06-12] MEDS: Divalproex Sodium 500 MG TABLET.DR PO (10:40)
[2020-06-12 10:44] LABS: MANUAL DIFF FLAG NO
[2020-06-12 10:54] LABS: Basophils Absolute Auto 0.1 X10*3/uL (0.0-0.2); Basophils Percent Auto 0.7 % (0-2); Eosinophils Absolute Auto 0.6 X10*3/uL (0.0-0.4); Eosinophils Percent Auto 7.8 % (0-4); Hematocrit 47.1 % (42-52); Hemoglobin 15.6 g/dl (14.0-18.0); Imm Gran Pct Auto 1.3 % (0.0-0.4); Lymphocytes Absolute Auto 2.1 X10*3/uL (1.2-4.9); Lymphocytes Percent Auto 28.3 % (20-40); Mean Corpuscular HGB Conc 33.1 g/dl (31.0-36.0); Mean Corpuscular Hemoglobin 30.4 pg (27.0-33.0); Mean Corpuscular Volume 91.8 fL (80-98); Mean Platelet Volume 10.5 fL (9.4-12.4); Monocytes Absolute Auto 0.8 X10*3/uL (0.1-1.2); Monocytes Percent Auto 10.7 % (2-11); Neutrophils Absolute Auto 3.9 X10*3/uL (2.0-8.3); Neutrophils Percent Auto 51.2 % (45-73); Platelet Count 206 X10*3/uL (160-400); Red Blood Count 5.13 X10*6/uL (4.60-5.80); Red Cell Distribution Width 12.3 % (11.0-16.0); White Blood Count 7.6 X10*3/uL (4.8-10.8)
[2020-06-12] MEDS: OLANZapine ODT 10 MG TAB.RAPDIS TRANSLINGU (11:14)
[2020-06-12 11:25] LABS: Valproate 73.3 mcg/mL (50.0-100.0)
[2020-06-12] MEDS: HaloperidoL 5 MG TABLET PO (12:02)
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
--- NOTE | 2020-06-12 14:39 | HO.PSYCHPN ---
Subjective Subjective Date of Service: 06/12/20 Reason For Visit: Schizoaffective Disorder Diagnostics Vital Signs (24Hr): Vital Signs - 24 hr 06/11/20 16:41 06/12/20 09:50 Temperature 98.9 F 98.4 F Pulse Rate 104 H 85 Respiratory Rate 16 Blood Pressure 135/83 120/58 L Pulse Oximetry 98 Body Mass Index 32.5 Labs Results: 06/12/20 10:39 06/04/20 07:48 Labs: Laboratory Results - last 48 hr 06/12/20 06/12/20 10:39 10:39 WBC 7.6 RBC 5.13 Hgb 15.6 Hct 47.1 MCV 91.8 MCH 30.4 MCHC 33.1 RDW 12.3 Plt Count 206 MPV 10.5 Immature Gran % (Auto) 1.3 H Neut % (Auto) 51.2 Lymph % (Auto) 28.3 [place] % (Auto) 10.7 Eos % (Auto) 7.8 H Baso % (Auto) 0.7 Lymph # (Auto) 2.1 [place] # (Auto) 0.8 Eos # (Auto) 0.6 H Baso # (Auto) 0.1 Abs Immat Gran (auto) 0.10 H Absolute Neuts (auto) 3.9 Absolute Nucleated RBC 0.000 Nucleated RBC % (auto) 0.0 Valproic Acid 73.3 Medications Medications Current Medications Generic Name Dose Route Start Last Admin Trade Name Freq PRN Reason Stop Dose Admin Acetaminophen 650 mg 06/03/20 16:04 06/11/20 13:19 Acetaminophen 325 Mg Tablet PO 650 mg Q6H PRN Administration Headache/Pain Mild Scale (1-3) Al Hydroxide/Mg Hydroxide 30 ml 06/03/20 16:04 06/06/20 10:24 Magnesium Hydrox/Alum Hydrox 30 Ml Oral.Susp PO 30 ml Q6H PRN Administration Heartburn/Nausea Benztropine Mesylate 1 mg 06/01/20 21:30 06/12/20 09:25 Benztropine Mesylate 1 Mg Tablet PO 1 mg BID LEONOR Administration Benztropine Mesylate 0.5 mg 06/03/20 16:17 06/11/20 22:44 Benztropine Mesylate 0.5 Mg Tablet PO 0.5 mg BID PRN Administration medication side effects Divalproex Sodium 500 mg 06/11/20 09:00 06/12/20 10:40 Divalproex Sodium 500 Mg Tablet. PO 500 mg DAILY LEONOR Administration Divalproex Sodium 1,000 mg 06/10/20 21:00 06/11/20 20:53 Divalproex Sodium 500 Mg Tablet. PO 1,000 mg BEDTIME LEONOR Administration Haloperidol 5 mg 06/05/20 14:21 06/12/20 12:02 Haloperidol 5 Mg Tablet PO 5 mg Q4H PRN Administration psychosis, agitation Haloperidol Lactate 5 mg 06/05/20 15:00 06/12/20 14:29 Haloperidol Lactate 10 Mg/5 Ml Oral.Conc PO 5 mg TID LEONOR Administration Lorazepam 2 mg 06/11/20 14:15 06/12/20 13:48 Lorazepam 1 Mg Tablet PO 2 mg Q4H PRN Administration agitation Magnesium Hydroxide 30 ml 06/03/20 16:04 Milk Of Magnesia 30 Ml Oral.Susp PO DAILY PRN Constipation Nicotine 21 mg 06/04/20 09:45 06/12/20 09:25 Nicotine 21 Mg Patch.Td24 TRANSDERMA 21 mg DAILY LEONOR Administration Olanzapine 20 mg 06/01/20 21:30 06/11/20 20:53 Olanzapine 10 Mg Tablet PO 20 mg BEDTIME LEONOR Administration Olanzapine 10 mg 06/05/20 14:32 06/12/20 11:14 Olanzapine Odt 10 Mg Tab.Rapdis TRANSLINGU 10 mg BID PRN Administration Psychosis Trazodone HCl 100 mg 06/01/20 21:30 06/11/20 20:53 Trazodone Hcl 100 Mg Tablet PO 100 mg BEDTIME LEONOR Administration Allergies Allergies Allergy/AdvReac Type Severity Reaction Status Date / Time morphine [MORPHINE] AdvReac Unknown NAUSEA Unverified 03/12/20 14:28 Assessment & Plan Greater than 50% of the session was spent on counseling and/or coordination of care
[2020-06-12 15:05] LABS: Influenza A PCR NEGATIVE (Negative); Influenza B PCR NEGATIVE (Negative); Resp Syncy Virus RNA Qual PCR NEGATIVE (Negative); SARS COV2 PCR INHOUSE NEGATIVE (Negative)
== END 2020-06-12 15:24 | disposition home or self-care (01) | DRG 885 ==
LOC: HO.ED 06-03 14:54 → HO.PM5 06-03 14:59
PROVIDERS: Nurse Practitioner Family; Admitting Provider Psychiatry & Neurology Psychiatry; Emergency Provider Emergency Medicine Emergency Medical Services; Visit Provider Clinical Nurse Specialist Psychiatric/Mental Health, Adult
DX: F25.0 Schizoaffective disorder, bipolar type (principal); R45.850 Homicidal ideations; F14.10 Cocaine abuse, uncomplicated; F16.10 Hallucinogen abuse, uncomplicated; F43.10 Post-traumatic stress disorder, unspecified; Z20.822 Contact with and (suspected) exposure to COVID-19; F17.210 Nicotine dependence, cigarettes, uncomplicated; Z71.6 Tobacco abuse counseling; Z88.5 Allergy status to narcotic agent; Z79.899 Other long term (current) drug therapy
CPT/HCPCS: 0241U; 36415; 80053; 80061; 80164; 80307; 80320; 82607; 82746; 83036; 83735; 84439; 84443; 85025; 87635; 93005; 96372; 99285; G0480; J0515; J2060

== ENCOUNTER 2020-10-25 14:33 | Emergency (ER) | payer MEDICARE, MEDICAID, SELFPAY ==
--- NOTE | ~2020-10-25 | XR_ITS ---
EXAMINATION: XR CHEST CLINICAL INFORMATION: Overdose. Desaturations. COMPARISON: 09/06/17. CT scan of 12/18/19. TECHNIQUE: Frontal view of the chest was obtained. FINDINGS: No significant abnormality is noted involving the heart, lungs, mediastinum, bony thorax or soft tissues. The lungs are clear with no evidence for aspiration or other abnormality. XR/XR chest 1V IMPRESSION: Unremarkable examination.
--- NOTE | 2020-10-25 14:41 | ED_ITS ---
HPI - Overdose General Chief Complaint: Overdose Stated Complaint: overdose, narcan given Time Seen by Provider: 10/25/20 14:39 Source: patient and EMS Mode of arrival: EMS Limitations: other (poor historian) History of Present Illness HPI Narrative: 25 yo male reported heroin overdose given narcan 6mg by first responders after he snorted heroin - he is not known to us for opiate abuse but cocaine and PCP in the past reportedly found down outside his bathroom EMS not totally sure of events, he was not bagged placed on NRB and given 6mg IN narcan he woke up vomiting, he is very limited in history, isn't sure what he took, asks what suboxone and detox is for MD complaint: other (unsure he is very vague at this time) Onset (ago): minute(s) Timing confirmed by: family member Intent: unwilling to say and unknown Associated symptoms: depression Treatments Prior to Arrival: narcan (6mg intranasal NRB for O2 per EMS) Related Data Previous Rx's Medication Instructions Recorded haloperidol decanoate 100 mg IM Q4W 30 Days #1 ml 03/14/20 benztropine 1 mg PO BID 30 Days #30 tab 06/12/20 divalproex 1,000 mg PO BEDTIME #28 tab 06/12/20 divalproex 500 mg PO DAILY #14 tab 06/12/20 olanzapine 20 mg PO BEDTIME 30 Days #15 tab 06/12/20 trazodone 100 mg PO BEDTIME 30 Days #15 tab 06/12/20 Allergies Allergy/AdvReac Type Severity Reaction Status Date / Time morphine [MORPHINE] AdvReac Unknown NAUSEA Unverified 03/12/20 14:28 Review of Systems Review of Systems: Constitutional : No Weight loss, No Fever, No Chills, No Fatigue, No Malaise ENT/Mouth : No sore throat, No Rhinorrhea Eyes: No Eye Pain, No Swelling, No Redness Cardiovascular : No Chest Pain, No SOB, No Dyspnea on Exertion, No Orthopnea, No Edema, No Palpitations Respiratory : No Cough, No Sputum, No Wheezing Gastrointestinal : pos Nausea, pos Vomiting, No Diarrhea, No Constipation, No abdominal Pain, No Hematochezia, No Melena Genitourinary : No Dysuria, No Urinary Frequency, No Hematuria, Musculoskeletal : No joint pain, No Myalgias, No Joint Swelling Skin : No Skin Lesions, No rash Neuro : No Weakness, No Numbness, No Dizziness, No Headache Psych : pos Anxiety/Panic, pos Depression Heme/Lymph: No Bruising, No Bleeding,No Lymphadenopathy Endocrine : No Polyuria, No Polydipsia All other systems reviewed and are negative ON LICENSE OF [facility] Past Medical History Attestation statement: The following information was validated with the patient. Medical History Anxiety Bipolar affective Depression PCP abuse PTSD (post-traumatic stress disorder) Schizoaffective disorder, bipolar type Schizophrenia Schizophrenia Suicidal behavior Social History Social History Household Members: Family Housing: Apartment Do you presently have visiting nurse or other home services: No Alcohol intake: never Cigarette Packs Per Day: 0.25 Cigarettes Per Day: 5.0 Years Smoked: 10 Second Hand Smoke Exposure: No Substance Use Type: Crack/Cocaine Advance Directives: No Advance Directives Information Provided: No service: No Sexual orientation: Straight/Heterosexual Physical Exam Vital Signs: Vital Signs: Last Vital Signs Temp 98 F 10/25/20 14:45 Pulse 94 10/25/20 14:45 Resp 18 10/25/20 14:45 BP 132/81 10/25/20 14:45 Pulse Ox 93 10/25/20 14:45 Body Mass Index 28.7 Appearance: Alert. Oriented X3. No acute distress. Eyes: Pupils equal, round and reactive to light. ENT: Pharynx normal. Atraumatic Neck: Normal inspection. Neck supple. no ttp CVS: Normal heart rate and rhythm. Pulses normal. Respiratory: No respiratory distress. Breath sounds normal. Abdomen: Soft and nontender. Skin: Skin warm and dry. Normal skin color. Normal skin turgor. Extremities: No lower extremity edema. No calf ttp Neuro: Oriented X 3. No motor deficit. No sensory deficit. Psych: Flat affect, withdrawn, depressed appearing , one word answers Course Course Course Narrative: signed out to Kiara WARE pending observation in ED and N input MDM - Overdose MDM Narrative Medical decision making narrative: 25 yo male with schizophrenia cocaine and PCP abuse here with complaint of heroin overdose post sniffing at this time will need labs, CXR to r/o aspiration/edema, he is very withdrawn and unsure if this was SI attempt, will observe, refer to DHIRAJ given his history and EMS concerns about SI attempt as well as the patient is evasive Lab Data Result diagrams: 10/25/20 15:24 10/25/20 15:24 Labs: Lab Results 10/25/20 10/25/20 Range/Units 15:24 15:24 WBC 16.7 H (4.8-10.8) X10*3/uL RBC 4.57 L (4.60-5.80) X10*6/uL Hgb 14.0 (14.0-18.0) g/dl Hct 40.2 L (42-52) % MCV 88.0 (80-98) fL MCH 30.6 (27.0-33.0) pg MCHC 34.8 (31.0-36.0) g/dl RDW 12.0 (11.0-16.0) % Plt Count 204 (160-400) X10*3/uL MPV 10.2 (9.4-12.4) fL Immature Gran % (Auto) 0.6 H (0.0-0.4) % Neut % (Auto) 83.1 H (45-73) % Lymph % (Auto) 6.7 L (20-40) % [place] % (Auto) 7.3 (2-11) % Eos % (Auto) 2.0 (0-4) % Baso % (Auto) 0.3 (0-2) % Lymph # (Auto) 1.1 L (1.2-4.9) X10*3/uL [place] # (Auto) 1.2 (0.1-1.2) X10*3/uL Eos # (Auto) 0.3 (0.0-0.4) X10*3/uL Baso # (Auto) 0.1 (0.0-0.2) X10*3/uL Abs Immat Gran (auto) 0.10 H (0.00-0.03) X10*3/uL Absolute Neuts (auto) 13.8 H (2.0-8.3) X10*3/uL Absolute Nucleated RBC 0.000 (0.0-0.012) X10*3/uL Nucleated RBC % (auto) 0.0 (0.0-0.2) /100WBC COVID-19 (LO) Negative (Negative) COVID-19 Clin Com See Note Discharge Plan Discharge Clinical Impression: Drug overdose Qualifiers: Encounter type: initial encounter Injury intent: undetermined intent Qualified Code(s): T50.904A - Poisoning by unspecified drugs, medicaments and biological substances, undetermined, initial encounter Prescriptions: No Action divalproex 500 mg Tablet,Delayed Release (Dr/Ec) 1,000 mg PO BEDTIME Qty: 28 RF: 1 divalproex 500 mg Tablet,Delayed Release (Dr/Ec) 500 mg PO DAILY Qty: 14 RF: 1 benztropine 1 mg Tablet 1 mg PO BID 30 Days Qty: 30 RF: 1 olanzapine 20 mg Tablet 20 mg PO BEDTIME 30 Days Qty: 15 RF: 1 trazodone 100 mg Tablet 100 mg PO BEDTIME 30 Days Qty: 15 RF: 1 haloperidol decanoate 100 mg/mL Solution 100 mg IM Q4W 30 Days Qty: 1 RF: 0
[2020-10-25 14:45] VITALS: BP 132/81; PULSE 94; RESP 18; TEMP 36.6; O2SAT 93; BMI 28.7
[2020-10-25] MEDS: ondansetron HCL 4 MG/2 ML VIAL IVPUSH (14:53)
[2020-10-25 14:56] VITALS: BP 136/82; PULSE 109; O2SAT 97
--- NOTE | 2020-10-25 15:07 | PC.NURSE ---
pt denies si, but due to signficiant history, plan to consult bhn once medically cleared.
[2020-10-25 15:29] LABS: MANUAL DIFF FLAG NO
[2020-10-25 15:31] LABS: Basophils Absolute Auto 0.1 X10*3/uL (0.0-0.2); Basophils Percent Auto 0.3 % (0-2); Eosinophils Absolute Auto 0.3 X10*3/uL (0.0-0.4); Hematocrit 40.2 % (42-52); Imm Gran Pct Auto 0.6 % (0.0-0.4); Lymphocytes Absolute Auto 1.1 X10*3/uL (1.2-4.9); Lymphocytes Percent Auto 6.7 % (20-40); Mean Corpuscular HGB Conc 34.8 g/dl (31.0-36.0); Mean Corpuscular Hemoglobin 30.6 pg (27.0-33.0); Mean Platelet Volume 10.2 fL (9.4-12.4); Monocytes Absolute Auto 1.2 X10*3/uL (0.1-1.2); Monocytes Percent Auto 7.3 % (2-11); Neutrophils Absolute Auto 13.8 X10*3/uL (2.0-8.3); Neutrophils Percent Auto 83.1 % (45-73); Platelet Count 204 X10*3/uL (160-400); Red Blood Count 4.57 X10*6/uL (4.60-5.80); White Blood Count 16.7 X10*3/uL (4.8-10.8)
[2020-10-25 15:49] LABS: COVID-19 Test Negative (Negative); IDNOW Serial# 9DD0AD1C
[2020-10-25 15:51] LABS: Ethanol < 10 mg/dL
[2020-10-25 15:55] LABS: Acetaminophen LAB < 1 mcg/mL (<30); Salicylate < 5.0 mg/dL (15-30)
[2020-10-25 15:55] LABS: Alanine Aminotransferase 6 U/L (0-40); Albumin Level 4.6 g/dL (3.5-5.0); Alkaline Phosphatase 58 U/L (39-117); Anion Gap 12 (12-20); Aspartate Amino Transferase 12 U/L (5-37); Bilirubin Direct 0.2 mg/dL (0.0-0.5); Bilirubin Total 0.5 mg/dL (0.0-1.0); Blood Urea Nitrogen 25 mg/dL (9-16); Calcium 9.5 mg/dL (8.4-10.2); Carbon Dioxide 23 mmol/L (22-29); Chloride 107 mmol/L (96-108); Creatinine Clr Calc Pharmacy 105.6; Estimated Glomerular Filt Rate > 60; Glucose Random 185 mg/dL (60-115); Potassium 3.7 mmol/L (3.3-5.1); Sodium 138 mmol/L (135-145); Total Protein 7.1 g/dL (6.5-8.0)
[2020-10-25 16:39] LABS: Valproate < 2.0 mcg/mL (50.0-100.0)
[2020-10-25 16:58] VITALS: BP 105/63; PULSE 58; RESP 16; O2SAT 96
--- NOTE | 2020-10-25 17:18 | PC.NURSE ---
patient transferred to floor while t/w off floor. patient appears to be asleep at present, was approached by it technician in an attempt to collect urine sample, patient reported that his stomach hurt so he could not at this time. t/w called clients name 2 times in an attempt to interview patient, assess for safety, pat appears asleep
--- NOTE | 2020-10-25 19:35 | PC.NURSE ---
Patient in bed appears sleeping, no distress observed/reported at this time, [facility] called/spoke with , confirmed receipt of referral. no ETA at this time, will continue to monitor.
[2020-10-25 20:25] LABS: Glucose Urine UA NEG (NEG); Leukocyte Esterase Urine NEG (NEG); Nitrite Urine NEG (NEG); Specific Gravity - Urine >= 1.030 (1.005-1.025); Urine Blood NEG (NEG); Urine Ketones 15 MG/DL (NEG); Urine Protein TRACE MG/DL (NEG-TRACE)
[2020-10-25 20:30] LABS: Appearance Urine CLEAR; Color Urine YELLOW
[2020-10-25 20:58] LABS: Amphetamine Screen Urine Not Detected (Not Detect); Barbiturates, Urine Not Detected (Not Detect); Benzodiazepines Screen Urine Not Detected (Not Detect); Cannabinoid Screen Urine Not Detected (Not Detect); Cocaine Screen Urine POSITIVE (Not Detect); Opiate Screen Urine POSITIVE (Not Detect); Phencyclidine Screen Urine Not Detected (Not Detect)
--- NOTE | 2020-10-25 21:12 | MHC.RECOVSUP ---
Business Office Manager was able to meet with patient after he was he was place in at [facility],Patient came to the hospital with a over doses and he was not feeling well emotional .executive business coach gave him the motivation through all this situation that he is going through .patient was engage and willing to accept all help and resources .patient will nee a follow up with coaches available top provide more support and guidance through his recovery. . . . . . . . . . . . . . . . . . . . . . . . . . . . . . . . . . . . . . . . . . . . . . . . . . . . . . . . . . . . . . . . . . . . . . . . . . . . . . . . . . . . . . . . . . . . . . . . . . . . . . . . . . . . . . . . . . . . . . . . . . . . . . . . . . . . . . . . . . . . . . . . . . . . . . . . . . . . . . . . . . . . . . . . . . . . . . . . . . . . . . . . . . . . . . . . . . . . . . . . . . . . . . . . . . . . . . . . . . . . . . . . . . . . . . . . . . . . . . . . . . . . . . . . . . . . . . . . . . . . . . . . . . . . . . .
--- NOTE | 2020-10-25 23:58 | MHC.CARE ---
CARE team contacted pt's parents Dillan and Liberty re: whether they have concerns at this time for the pt's safety or wellbeing. Dillan reported that pt has been taking his medications and appointments, but asserted that none of it will help if he's doing drugs. Pt's parents are both advocating for substance use disorder treatment, with Liberty suggesting that perhaps the pt could stay at the hospital for a few days. This poem writer explained that isn't an option given the present circumstances, however pt can be kept in the ED overnight and CARE team can meet with pt in the morning to discuss substance use disorder treatment, i.e. detox or other placement. Dillan shared that he and his tried to petition for a [employer] recently and that it was denied by the rn dialysis and forensic psychologist at the court house. This poem writer encouraged them to pursue one again, and to mention that the pt was sent to ED over the weekend secondary to an accidental heroin overdose. If pt is not accepting of substance use disorder treatment, then that will further strengthen their case for commitment. ED provider and pod nurse were both updated re: plan for follow up in the morning to discuss detox and other DEON treatment options. [facility] contacted by this poem writer to cancel consult for evaluation.
--- NOTE | 2020-10-26 00:51 | PC.NURSE ---
Patient got seen by care team, patient seems engaged, disposition is to follow up with care team for possible detox help and support, per care team [facility] consult cancelled, will continue to monitor.
[2020-10-26 06:11] VITALS: BP 107/44; PULSE 60; RESP 16; TEMP 36.7; O2SAT 96
--- NOTE | 2020-10-26 10:54 | MHC.RECOVSUP ---
Recovery Support note: This public relations writer met with patient to discuss his substance use and treatment options. Patient reports he accidentally overdosed yesterday is interested in stopping his substance use entirely. Patient met with a [facility] [facility] yesterday and that he plans to continue working with him after discharge. Discussed detox treatment with patient. Patient reports he is not interested in that at this time and he feels he will be able to do well with outpatient supports. Patient denies SI/HI and reports he feels safe to discharge and follow up with outpatient supports. Discussed case with patient's RN, ED provider and CARE Team.
== END 2020-10-26 10:53 | disposition home or self-care (01) ==
PROVIDERS: Emergency Provider Emergency Medicine
DX: T40.1X1A Poisoning by heroin, accidental (unintentional), initial encounter (principal); Y92.9 Unspecified place or not applicable; F14.10 Cocaine abuse, uncomplicated; F16.10 Hallucinogen abuse, uncomplicated; F20.9 Schizophrenia, unspecified; Z79.899 Other long term (current) drug therapy; Z20.822 Contact with and (suspected) exposure to COVID-19
CPT/HCPCS: 36415; 71045; 80048; 80076; 80143; 80164; 80179; 80307; 81003; 82077; 83735; 85025; 87635; 96374; 99284; 99285; J2405

== ENCOUNTER 2021-03-05 15:56 | Emergency (ER) | payer MEDICARE, MEDICAID, SELFPAY ==
[2021-03-05 16:04] VITALS: BP 106/64; BP 133/90; PULSE 100; PULSE 102; RESP 16; TEMP 37; O2SAT 95; O2SAT 96; BMI 25.7
--- NOTE | 2021-03-05 16:40 | ED.ALCOHOL ---
HPI - Alcohol General Chief Complaint: ETOH/Substance Use Stated Complaint: DRUG UDED Time Seen by Provider: 03/05/21 16:08 Source: patient and EMS Mode of arrival: EMS History of Present Illness HPI narrative: 24-year-old male with history of schizophrenia, anxiety, bipolar, depression, PTSD, schizoaffective disorder, substance abuse, BIBA after PD found him walking funny on the sidewalk. Patient admits to drinking 2 beers, snorting 1 bag of heroin, and smoking 2 bags of cocaine. Denies SI/HI. Denies fall/trauma, headache, CP/SOB, abdominal pain, nausea/vomiting Related Data Home Medications Medication Instructions Recorded Confirmed quetiapine 25 mg tablet (Seroquel) 1 tab PO TID 10/25/20 10/25/20 Previous Rx's Medication Instructions Recorded benztropine 1 mg tablet 1 mg PO BID 30 Days #30 tab 06/12/20 olanzapine 20 mg tablet 20 mg PO BEDTIME 30 Days #15 tab 06/12/20 trazodone 100 mg tablet 100 mg PO BEDTIME 30 Days #15 tab 06/12/20 Allergies Allergy/AdvReac Type Severity Reaction Status Date / Time morphine [MORPHINE] AdvReac Unknown NAUSEA Unverified 03/12/20 14:28 Review of Systems Review of Systems: Constitutional: No Fever, No Chills, No Fatigue, No Malaise Eyes: No Eye Pain, No Swelling, No Discharge Cardiovascular: No Chest Pain, No SOB, No Palpitations Respiratory: No Cough, No Dyspnea Gastrointestinal: No Nausea, No Vomiting, No Diarrhea, No Constipation, No Abdominal pain Genitourinary: No Dysuria, No Urinary Frequency, No Hematuria Musculoskeletal: No joint pain, No Myalgias, No Joint Swelling Skin: No Skin Lesions, No rash Neuro: No Weakness, No Loss of Consciousness, No Dizziness, No Headache Psych: No Anxiety/Panic, No Depression, No SI/HI/AH/VH, No Social Issues Yes all other systems are reviewed and are negative [facility] Past Medical History Attestation statement: The following information was validated with the patient. Medical History Anxiety Bipolar affective Depression PCP abuse PTSD (post-traumatic stress disorder) Schizoaffective disorder, bipolar type Schizophrenia Schizophrenia Suicidal behavior Social History Social History Household Members: Family Housing: Apartment Do you presently have visiting nurse or other home services: No Alcohol intake: current Alcohol intake frequency: 3 or more drinks per day Alcohol type: beer Patient Tobacco Use Status: Current everyday Tobacco user Cigarette Packs Per Day: 0.25 Cigarettes Per Day: 5.0 Years Smoked: 10 Second Hand Smoke Exposure: No Use of substances other than those prescribed or required for medical reasons: Yes Substance Use Type: Crack/Cocaine, Heroin and Marijuana Advance Directives: No Advance Directives Information Provided: Yes service: No Sexual orientation: Straight/Heterosexual Physical Exam Vital Signs: Vital Signs: Last Vital Signs Temp 98.6 F 03/05/21 16:04 Pulse 102 H 03/05/21 16:04 Resp 16 03/05/21 16:04 BP 133/90 H 03/05/21 16:04 Pulse Ox 96 03/05/21 16:04 Body Mass Index 25.7 Const: Other: Appears under the influence General: cooperative and no acute distress Orientation/consciousness: patient oriented x3 HENMT: Head: Yes normal to inspection, Yes atraumatic, No Jimenez's sign and No raccoon eyes Ears: hearing grossly normal bilaterally General nose exam: Normal external nose present Face and sinus: Yes normal facial exam Mouth: Normal oral and palatal mucosa present Throat: Yes posterior oropharynx normal Eyes: General: appearance normal, both eyes and all related structures Pupils: Equal, round and reactive pupils present EOM: EOMs intact bilaterally Neck: Neck: Yes normal visual inspection and Yes no meningeal signs Resp: Effort & Inspection: normal respiratory effort Auscultation: clear to auscultation bilaterally, no rales, no rhonchi and no wheezes Cardio: Rate: regular rate Heart sounds: S1 normal heart sound present and S2 normal heart sound present GI: Inspection: Yes normal to inspection Palpation (GI): Soft to palpation, nontender, no guarding and not rigid Skin: Rashes: no rashes Wounds: no wounds Neuro: General: patient oriented x3, tone normal, moves all extremities and no meningeal signs Cranial nerves: Yes Equal, round and reactive pupils present Extrem: General: Yes normal to inspection Psych: Attitude: cooperative Thought content: suicidality and no homicidality Course Course Course Narrative: -tox screen positive for opiates, fentanyl, and cocaine -1999--patient has remained awake/alert and easily arousable. Care team spoke with patient and cleared for discharge MDM - Alcohol MDM Narrative Medical decision making narrative: 24-year-old male with history of schizophrenia, anxiety, bipolar, depression, PTSD, schizoaffective disorder, substance abuse, BIBA after PD found him walking funny on the sidewalk. On exam mildly tachycardic, NAD, appears under the influence, awake easily arousible at this time. Per nursing when patient started to fall asleep desatted, 2L NC applied, currently drinking Sandra Sarah, no signs of trauma. Plan: [facility], observed and reassessed for clinical sobriety Medical Records Attestation: I reviewed the patient's medical records. Lab Data Attestation: I reviewed the patient's lab results. Labs: Lab Results 03/05/21 Range/Units 16:46 Urine Opiates Screen POSITIVE H (Not Detect) Urine Fentanyl Screen POSITIVE H (Not Detect) Ur Barbiturates Screen Not Detected (Not Detect) Ur Phencyclidine Scrn Not Detected (Not Detect) Ur Amphetamines Screen Not Detected (Not Detect) U Benzodiazepines Scrn Not Detected (Not Detect) Urine Cocaine Screen POSITIVE H (Not Detect) U Marijuana (THC) Screen Not Detected (Not Detect) Discharge Plan Discharge Clinical Impression: Substance abuse Patient Disposition: Home, Self-Care Instructions: Polysubstance Abuse (ED) Additional Instructions: Do not do drugs or drink alcohol it can kill you Please take home prescribed medication Please follow-up with her doctor and behavior health network as needed If you have any thoughts of hurting herself or hurting other space return to the ED Prescriptions: No Action benztropine 1 mg Tablet 1 mg PO BID 30 Days Qty: 30 RF: 1 olanzapine 20 mg Tablet 20 mg PO BEDTIME 30 Days Qty: 15 RF: 1 trazodone 100 mg Tablet 100 mg PO BEDTIME 30 Days Qty: 15 RF: 1 quetiapine [Seroquel] 25 mg tablet 1 tab PO TID RF: 0 Referrals: Physician,Unknown J [Primary Care Provider] - 2 days [facility] [Physician] - 2 days
[2021-03-05 17:25] LABS: Amphetamine Screen Urine Not Detected (Not Detect); Barbiturates, Urine Not Detected (Not Detect); Benzodiazepines Screen Urine Not Detected (Not Detect); Cannabinoid Screen Urine Not Detected (Not Detect); Cocaine Screen Urine POSITIVE (Not Detect); Fentanyl, urine POSITIVE (Not Detect); Opiate Screen Urine POSITIVE (Not Detect); Phencyclidine Screen Urine Not Detected (Not Detect)
--- NOTE | 2021-03-05 19:34 | MHC.CARE ---
Risk/crisis consult requested for pt due to pt's hx of MH. Pt initially arrived due to being under the influence of drugs and found by police. Pt is not looking to pursue detox services. I talked with pt to determine if he was in crisis. Pt reports that he is taking his medications, resides with his mom & dad. Pt reports he see's a therapist. Pt is able to have a lucid conversation, he does not appear to be in a psychotic state. He denies endorsing any AH/VH or SI/HI. He does not appear to be respnding to internal stimuli and appears to be presenting at baseline. Pt appears to be in a good state and reports he will be returning home.
[2021-03-05 20:18] VITALS: BP 119/68; PULSE 58; RESP 14; TEMP 36.7; O2SAT 92
--- NOTE | 2021-03-05 20:50 | PC.NURSE ---
PT'S MOTHER CALLED REGARDING A RIDE HOME FOR PT BY KARAN. PT WITH STEADY EVEN GAIT TO WR.
== END 2021-03-05 20:55 | disposition home or self-care (01) ==
PROVIDERS: Physician Assistant; Emergency Provider Internal Medicine
DX: F14.10 Cocaine abuse, uncomplicated (principal); F11.10 Opioid abuse, uncomplicated; R00.0 Tachycardia, unspecified; F25.0 Schizoaffective disorder, bipolar type; F43.10 Post-traumatic stress disorder, unspecified; F32.A Depression, unspecified; F41.9 Anxiety disorder, unspecified; F29 Unspecified psychosis not due to a substance or known physiological condition; Z79.899 Other long term (current) drug therapy
CPT/HCPCS: 80307; 99284

== ENCOUNTER 2021-06-10 20:17 | Emergency (ER) | payer MEDICARE, MEDICAID, SELFPAY ==
[2021-06-10 20:25] VITALS: BP 135/89; PULSE 97; RESP 16; TEMP 36.8; O2SAT 99; BMI 29.7
--- NOTE | 2021-06-10 20:26 | ED_ITS ---
HPI - General Adult General Chief complaint: ETOH/Substance Use Stated complaint: od Time Seen by Provider: 06/10/21 20:26 Source: patient and EMS Mode of arrival: EMS History of Present Illness HPI narrative: 26-year-old male with a past medical history of anxiety, bipolar, depression, PTSD, schizoaffective, schizophrenia, BIBA for heroin overdose [employer] DEVELOPER given 4 mg of intranasal Narcan with positive result. Patient admits to snorting 1 bag of heroin, denies trauma/fall or injury. Reports recreational use, denies SI/HI. Denies other illicit drugs, EtOH, CP/SOB, abdominal pain, nausea/vomiting Onset (ago): hour(s) Related Data Home Medications Medication Instructions Recorded Confirmed quetiapine 25 mg tablet (Seroquel) 1 tab PO TID 10/25/20 10/25/20 Previous Rx's Medication Instructions Recorded benztropine 1 mg tablet 1 mg PO BID 30 Days #30 tab 06/12/20 olanzapine 20 mg tablet 20 mg PO BEDTIME 30 Days #15 tab 06/12/20 trazodone 100 mg tablet 100 mg PO BEDTIME 30 Days #15 tab 06/12/20 Allergies Allergy/AdvReac Type Severity Reaction Status Date / Time morphine [MORPHINE] AdvReac Unknown NAUSEA Unverified 03/12/20 14:28 Review of Systems Verdana 4l Review of Systems: Verdana 4d Verdana 4d Constitutional: No Fever, No Chills, No Fatigue, No Malaise ENT/Mouth: No Ear Pain, No Nasal Congestion, No sore throat, No Rhinorrhea, No Swallowing Difficulty Eyes: No Eye Pain, No Swelling, No Redness Cardiovascular: No Chest Pain, No SOBSOB, No Palpitations Respiratory: No Cough, No Dyspnea Gastrointestinal: No Nausea, No Vomiting, No Diarrhea, No Abdominal pain Genitourinary: No Dysuria, No Urinary Frequency, No Urinary Incontinence Musculoskeletal: No joint pain, No Myalgias, No Joint Swelling Skin: No Skin Lesions, No rash Neuro: No Weakness, No Numbness, No Loss of Consciousness, No Dizziness, No Hea dache Psych: No Anxiety/Panic, No Depression, No SI/HI/AH/VH, No Social Issues Yes all other systems are reviewed and are negative [facility] Past Medical History Attestation statement: The following information was validated with the patient. Medical History Anxiety Bipolar affective Depression PCP abuse PTSD (post-traumatic stress disorder) Schizoaffective disorder, bipolar type Schizophrenia Schizophrenia Suicidal behavior Social History Social History Household Members: Family Housing: Apartment Do you presently have visiting nurse or other home services: No Alcohol intake: current Alcohol intake frequency: 3 or more drinks per day Alcohol type: beer Patient Tobacco Use Status: Current everyday Tobacco user Cigarette Packs Per Day: 0.25 Cigarettes Per Day: 5.0 Years Smoked: 10 Second Hand Smoke Exposure: No Substance Use Type: Crack/Cocaine, Heroin and Marijuana Advance Directives: No service: No Sexual orientation: Straight/Heterosexual Physical Exam Verdana 4l Vital Signs: Verdana 4d Verdana 4d Vital Signs: Verdana 4d Verdana 4Bd Last Vital Signs Verdana 4d [employer] 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 4d [employer] T[employer]ine 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 4d Temp 98.2 F 06/10/21 20:25 Gas Turbine 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 4d Pulse 97 06/10/21 20:25 Gas Turbine 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 4d Resp 16 06/10/21 20:25 BP 135/89 06/10/21 20:25 Pulse Ox 99 06/10/21 20:25 BMI result Body Mass Index 29.7 Const: General: cooperative, healthy appearing, no acute distress, well developed, alert and awake Orientation/consciousness: patient oriented x3 Limitations: no limitations HENMT: Head: Yes normal to inspection and Yes atraumatic Ears: hearing grossly normal bilaterally General nose exam: Normal external nose present Face and sinus: Yes normal facial exam Throat: Yes posterior oropharynx normal, Yes tonsils normal and Yes uvula midline Eyes: General: appearance normal, both eyes and all related structures EOM: EOMs intact bilaterally Neck: Neck: Yes normal visual inspection and Yes no meningeal signs Resp: Effort & Inspection: normal respiratory effort and no respiratory distress Auscultation: clear to auscultation bilaterally, no rales, no rhonchi and no wheezes Cardio: Rate: regular rate Heart sounds: S1 normal heart sound present and S2 normal heart sound present GI: Inspection: Yes normal to inspection Palpation (GI): Soft to palpation, nontender, no guarding and not rigid : General: Yes no CVA tenderness Back/Spine/Pelvis: Back: no CVA tenderness Skin: Rashes: no rashes Wounds: no wounds Neuro: General: patient oriented x3, tone normal, moves all extremities, no meningeal signs and no focal motor deficits Cranial nerves: Yes CN's II-XII intact bilaterally Extrem: General: Yes normal to inspection Psych: Appearance: grossly normal Attitude: cooperative Thought content: suicidality and no homicidality Course Course Course Narrative: Patient was evaluated by a debt recovery officer and has no interest in detox Reevaluation(s) Reevaluation #1: On re-evaluation patient is sleeping comfortably Time: 22:30 Reevaluation #2: Patient awake and alert, clinically sober, calling for safe ride home Time: 22:54 Medical Decision Making [facility] Narrative Medical decision making narrative: 26-year-old male with a past medical history of anxiety, bipolar, depression, PTSD, schizoaffective, schizophrenia, BIBA for heroin overdose [employer]EL[employer] given 4 mg of intranasal Narcan with positive result. On exam vital signs stable, NAD, A&O x3, HERCULES, no signs of trauma. Concern for accidental OD. Patient denies SI/HI Will observe and reassess and have debt recovery officer speak to patient Discharge Plan Discharge Clinical Impression: Drug overdose Patient Disposition: Home, Self-Care Instructions: Adult Overdose (ED) Additional Instructions: Do not take drugs it can kill you Please follow-up with your doctor If you have thoughts of hurting yourself or others please return to the ED Prescriptions: No Action benztropine 1 mg Tablet 1 mg PO BID 30 Days Qty: 30 1RF Label Comments: pt stated he as only been taking once a day at bedtime olanzapine 20 mg Tablet 20 mg PO BEDTIME 30 Days Qty: 15 1RF trazodone 100 mg Tablet 100 mg PO BEDTIME 30 Days Qty: 15 1RF quetiapine [Seroquel] 25 mg tablet 1 tab PO TID 0RF Referrals: [facility] [Physician] - 2 days Interventions: ED Discharge Assessment Last Done: 06/10/21 23:20 Discharge Date/Time: 06/10/21 23:21
--- NOTE | 2021-06-10 20:33 | PC.NURSE ---
pt to room via ems after snorting 1 bag of heroin tonight. PD gave pt Narcan 4mg dredge captain. pt arrives alert, respirations n/l. pt on monitor, pt undressed and belongings removed from pt to decon for safety. Pt calm and cooperative in ed at this time. will continue to monitor pt.
--- NOTE | 2021-06-10 21:28 | MHC.CARE ---
CARE team met with pt due to OD. Pt reports he has a therapist, psychiatrist through [facility]. He states that he has been compliant with providers and medications. Pt denies wanting any additional services such as detox, etc. He reports tomorrow he wants to f/u with suboxone clinic. Pt denies current SI/HI/AH/VH. Pt presents with a flat affect. He reports he lives at home with family. CARE team avaiable as needed.n
== END 2021-06-10 23:21 | disposition home or self-care (01) ==
PROVIDERS: Emergency Provider Internal Medicine
DX: T40.1X1A Poisoning by heroin, accidental (unintentional), initial encounter (principal); Y92.9 Unspecified place or not applicable; F41.1 Generalized anxiety disorder; F43.0 Acute stress reaction; F33.1 Major depressive disorder, recurrent, moderate; F17.210 Nicotine dependence, cigarettes, uncomplicated; F14.90 Cocaine use, unspecified, uncomplicated; F11.90 Opioid use, unspecified, uncomplicated; Z71.6 Tobacco abuse counseling; Z79.899 Other long term (current) drug therapy
CPT/HCPCS: 99283

== ENCOUNTER 2021-07-02 02:46 | Emergency (ER) | payer MEDICARE, MEDICAID, SELFPAY ==
[2021-07-02 07:48] VITALS: BP 116/71; PULSE 77; RESP 16; O2SAT 97
--- NOTE | 2021-07-02 08:01 | PC.NURSE ---
Pt awakens to name, no complaints of pain, VS as charted, DC instructions reviewed w/pt. Attempted to call pt's mother but phone out of service at this time. Pt states he will walk home, steady on his feet at this time A&Ox3. Pt ambulated to WR independely.
== END 2021-07-02 08:04 | disposition home or self-care (01) ==
PROVIDERS: Emergency Provider Emergency Medicine
DX: T40.1X1A Poisoning by heroin, accidental (unintentional), initial encounter (principal); R53.83 Other fatigue; X58.XXXA Exposure to other specified factors, initial encounter; S60.511A Abrasion of right hand, initial encounter; Y93.9 Activity, unspecified; Y92.9 Unspecified place or not applicable; Y99.9 Unspecified external cause status
CPT/HCPCS: 99283; 99284

== ENCOUNTER 2021-07-21 01:21 | Emergency (ER) | payer MEDICARE, MEDICAID, SELFPAY ==
--- NOTE | ~2021-07-21 | XR_ITS ---
EXAMINATION: XR CHEST CLINICAL INFORMATION: Hypoxia COMPARISON: 10/25/2020 TECHNIQUE: Frontal view of the chest was obtained. FINDINGS: The lungs are well expanded. There is no focal consolidation, edema, or effusion. No pneumothorax. The cardiomediastinal silhouette is within normal limits. No acute osseous abnormality. XR/XR chest 1V IMPRESSION: Clear lungs.
[2021-07-21 01:28] VITALS: BP 134/85; PULSE 110; PULSE 79; RESP 12; TEMP 37.3; O2SAT 88; O2SAT 96; BMI 28.6
[2021-07-21] MEDS: Naloxone HCl Nasal 4 MG SPRAY NOSTRILALT (01:38)
[2021-07-21 01:42] VITALS: BP 132/91; PULSE 92; RESP 14; TEMP 37; O2SAT 100
[2021-07-21 01:59] VITALS: PULSE 134; RESP 20; TEMP 38; O2SAT 96
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
[2021-07-21 02:03] VITALS: BMI 23.9
[2021-07-21 02:07] LABS: COVID-19 Test Negative (Negative)
[2021-07-21 04:20] VITALS: BP 124/74; PULSE 59; RESP 16; TEMP 36.8; O2SAT 100
--- NOTE | 2021-07-21 05:29 | PC.NURSE ---
Patient was just transferred from main ED, independent ambulation, alert and oriented, coherent, no distress observed/reported, patient is seeking help to get back on his suboxone, patient snaked/refreshed/provided urine sample, currently resting in his room quietly, will continue to monitor.
[2021-07-21 05:51] LABS: Amphetamine Screen Urine Not Detected (Not Detect); Barbiturates, Urine Not Detected (Not Detect); Benzodiazepines Screen Urine Not Detected (Not Detect); Cannabinoid Screen Urine Not Detected (Not Detect); Cocaine Screen Urine POSITIVE (Not Detect); Fentanyl, urine POSITIVE (Not Detect); Opiate Screen Urine POSITIVE (Not Detect); Phencyclidine Screen Urine Not Detected (Not Detect)
--- NOTE | 2021-07-21 07:05 | PC.NURSE ---
patient appears to remain asleep at present respirations are even and unlabored patient appears in no distress
--- NOTE | 2021-07-21 09:25 | MHC.CARE ---
Pt is a 26 y/o single, Hungarian speaking, male who is previously known to the CARE Team from prior ED visits and inpatient stays.? Today, pt was found sleeping outside nearby a building by police.? He was transported to this facility via ambulance.? Narcan was administered to pt with positive results.? Ptr admitted to using one bag of heroin intranasal.? Pt has been medically cleared and is being assessed by the CARE Team to determine appropriate treatment recommendations. Pt has an extensive hx of inpt hospitalizations, and a hx of medication noncompliance. Past documented hx of Schizophrenia disorder.? Pt is positive for opiates, Fentanyl, and Cocaine.? Pt is screened in his room in the behavioral health pod of the Ed.? He is in his bed, dressed in hospital attire.? He appears his stated age and appears unkempt.? He is engaged in the screening, and is help seeking.? He requests being started on suboxone and is interested in exploring recovery resources.? His eye contact and speech are unremarkable.? He reports good appetite and sleep.? His affect is flat.? He denies AVH, SI, HI, , and self-harm urges.? Judgement and impulse control are fair.? Insight, memory and concentration appear good. Pt does not appear to be at risk.? Pt will be referred to the Recovery team for resources.
--- NOTE | 2021-07-21 10:50 | HO.SUDE ---
Met with pt in BH3 to discuss substance use and overdose. Pt laying in bed, awake, alert, does not appear in any distress. Pt reports using heroin, IN, 1 bag a few times a week x 1 year as well as cocaine, INH, $50 daily x 2 years. Pt reports 3 accidental overdoses, including most recent, requiring Narcan. Pt states sometimes I use 2 bags but then I overdose. Pt denies history of DEON tx, including ATS. Pt does report many psychiatric hospitalizations and when asked if ever treated for withdrawal during those hospitalizations pt states yes, with haldol. Pt reports recently being in [place] by father) x 3 months and was discharged about 1.5 months ago. While there, pt reports initiating Suboxone 5 mg daily. Pt educated regarding Suboxone dosing and believes he was taking 4 mg once daily. Pt reports that it was helpful for awhile but later in the day pt would feel withdrawal symptoms. When asked which symptoms, pt states headache. Pt was provided with a prescription upon dc but did not fill. Pt is interested in initiating Suboxone outpatient with [facility]. Pt educated regarding the process and discussed presenting as a walk in today. Pt would like his mother to accompany him to [facility], states she helps me a lot. Pt and t/w called mother to discuss plan. Pt has appt at [facility] at 11:20AM today and mother will transport pt to [facility] after. Pt provided and mother provided with t/w contact information if needed. Discussed plan with CARE Team and RN.
== END 2021-07-21 10:50 | disposition home or self-care (01) ==
PROVIDERS: Emergency Provider Emergency Medicine
DX: T40.1X1A Poisoning by heroin, accidental (unintentional), initial encounter (principal); R40.0 Somnolence; Y92.89 Other specified places as the place of occurrence of the external cause; Z20.822 Contact with and (suspected) exposure to COVID-19; F17.200 Nicotine dependence, unspecified, uncomplicated; F25.0 Schizoaffective disorder, bipolar type; F14.10 Cocaine abuse, uncomplicated; F43.10 Post-traumatic stress disorder, unspecified
CPT/HCPCS: 71045; 80307; 87635; 99284

== ENCOUNTER 2021-08-26 19:40 | Emergency (ER) | payer MEDICARE, MEDICAID, SELFPAY ==
[2021-08-26 19:50] VITALS: BP 129/80; PULSE 95; RESP 18; TEMP 37.2; O2SAT 98; BMI 26.2
--- NOTE | 2021-08-26 19:50 | MHC.RECOVSUP ---
? Reason for consult recovery Support o Current location: [facility] o Identified substance use concern: heroin - Overdose <del>-</del> <del>Withdrawal</del> <del>-</del> <del>Seeking</del> <del>ATS</del> <del>(detox)</del> <del>-</del> <del>Support</del> <del>?</del> <del>Intervention:</del> <del>o</del> <del>ATS</del> <del>bed</del> <del>search</del> <del>started/completed/in</del> <del>process</del> <del>o</del> <del>MAT</del> <del>started</del> <del>or</del> <del>to</del> <del>be</del> <del>started</del> <del>o</del> <del>Community</del> <del>resources</del> <del>provided</del> <del>o</del> <del>Harm</del> <del>reduction</del> <del>discussion</del> <del>?</del> <del>Plan:</del> <del>o</del> <del>Referral</del> <del>to</del> <del>[facility]</del> <del>o</del> <del>Bed</del> <del>search</del> <del>in</del> <del>progress</del> <del>to</del> <del>o</del> <del>Follow</del> <del>up</del> <del>tomorrow</del> <del>o</del> <del>Patient</del> <del>awaiting</del> <del>crisis</del> <del>evaluation</del> <del>o</del> <del>Patient</del> <del>to</del> <del>follow</del> <del>up</del> <del>with</del> <del>[facility]</del> <del>after</del> <del>discharge</del> ? Additional information: patient stated that he did not want any help.. But was able to let him know where he could get help if he wanted it
[2021-08-26 19:52] VITALS: BP 98/56; PULSE 137; RESP 18; TEMP 38.4; O2SAT 98; BMI 36.9
--- NOTE | 2021-08-26 19:54 | PC.NURSE ---
Pt denies SI/HI
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
[2021-08-26] MEDS: Ondansetron ODT 4 MG TAB.RAPDIS TRANSLINGU (20:49)
--- NOTE | 2021-08-26 21:42 | PC.NURSE ---
Pt given OJ. Pt tolerated well Pt ambulated to bathroom Gait even and steady Will continue to monitor
[2021-08-26] MEDS: Naloxone HCl Nasal TAKE HOME 4 MG SPRAY NOSTRILALT (21:48)
--- NOTE | 2021-08-26 21:48 | PC.NURSE ---
Pt given narcan intranasal
== END 2021-08-26 21:50 | disposition home or self-care (01) ==
LOC: HO.ED 20:36
PROVIDERS: Emergency Provider Emergency Medicine; PCP Nurse Practitioner Family
DX: T50.901A Poisoning by unspecified drugs, medicaments and biological substances, accidental (unintentional), initial encounter (principal); Y92.9 Unspecified place or not applicable
CPT/HCPCS: 99283

== ENCOUNTER 2021-09-01 18:07 | Emergency (ER) | payer MEDICARE, MEDICAID, SELFPAY ==
[2021-09-01 18:19] VITALS: BP 149/70; PULSE 60; O2SAT 95
[2021-09-01 18:24] VITALS: BP 132/83; PULSE 71; RESP 16; TEMP 36.6; O2SAT 95; BMI 26.5
--- NOTE | 2021-09-01 18:30 | ED.PSYCH ---
HPI - Psych General Chief Complaint: ETOH/Substance Use Stated Complaint: SUBSTANCE ABUSE Time Seen by Provider: 09/01/21 18:15 Source: patient Mode of arrival: ambulatory Limitations: no limitations History of Present Illness HPI Narrative: 26-year-old male presents emergency department with 1-1/2 hours feeling like he does not want to go to sleep and he is anxious. Patient admits to using heroin department was drinking a beer. The patient states he does want help with his drug abuse denies any falls or injuries patient will fall asleep and then wake up on talking to him. complaint: feels depressed, anxiety and substance abuse Related Data Home Medications Medication Instructions Recorded Confirmed quetiapine 25 mg tablet (Seroquel) 1 tab PO TID 10/25/20 10/25/20 Previous Rx's Medication Instructions Recorded benztropine 1 mg tablet 1 mg PO BID 30 Days #30 tab 06/12/20 olanzapine 20 mg tablet 20 mg PO BEDTIME 30 Days #15 tab 06/12/20 trazodone 100 mg tablet 100 mg PO BEDTIME 30 Days #15 tab 06/12/20 Allergies Allergy/AdvReac Type Severity Reaction Status Date / Time morphine [MORPHINE] AdvReac Unknown NAUSEA Unverified 03/12/20 14:28 Review of Systems Review of Systems: Review of systems: General: Patient denies any fever chills recent illness or falls Musculoskeletal: Denies back pain or body aches or other injuries HEENT: denies headache, runny nose, ear pain Respiratory: denies shortness of breath, cough Cardiovascular: no chest pain or palpitations : denies dysuria, frequency Abdomen: no nausea vomiting denies abdominal pain Extremities: no swelling, no pain Skin: no diaphoresis Yes all other systems are reviewed and are negative [facility] Past Medical History Medical History Anxiety Bipolar affective Depression PCP abuse PTSD (post-traumatic stress disorder) Schizoaffective disorder, bipolar type Schizophrenia Schizophrenia Suicidal behavior Social History Social History Household Members: Family Housing: Apartment Do you presently have visiting nurse or other home services: No Alcohol intake: never Patient Tobacco Use Status: Current everyday Tobacco user Cigarette Packs Per Day: 0.25 Cigarettes Per Day: 5.0 Years Smoked: 10 Second Hand Smoke Exposure: No Substance Use Type: Heroin Advance Directives: No Advance Directives Information Provided: No service: No Sexual orientation: Straight/Heterosexual Physical Exam Vital Signs: Vital Signs: Last Vital Signs Temp 97.9 F 09/01/21 18:24 Pulse 71 09/01/21 18:24 Resp 16 09/01/21 18:24 BP 132/83 09/01/21 18:24 Pulse Ox 95 09/01/21 18:24 BMI result Body Mass Index 26.5 General: Well-appearing well-nourished in no signs of distress HEENT: Normocephalic atraumatic Neck: No signs of JVD, no masses no tenderness or lymphadenopathy Cardiovascular: Regular rate and rhythm Respiratory: Clear to auscultation bilaterally Abdomen: Soft nontender no masses rectal exam performed guiac negative quality improvement consultant confirmed. Extremities: Normal pedal pulses no signs of edema Skin: Dry warm no rashes Back: No tenderness full ROM MDM - Psych MDM Narrative Medical decision making narrative: Patient wanting STD evaluation otherwise unremarkable vital signs patient admits to using drugs I will watch the patient here he appears intoxicated on arrival 1955 Given SUDE evaluation given resources still incoherent and not able to follow they recommend [facility]N consult 2028 patient is pacing the room patient is now complaining of pain he states he came in for pain states he initially came in for what feeling drowsy and Syeda he states his pain all over patient will drink water and then retch in the room. He keeps asking for water I do not feel need to give any more water or to keep him here patient denies being suicidal I will discharge home. Differential Diagnosis Differential diagnosis: Likely acute psychosis, homicidal ideation, suicidal ideation, bipolar disorder, depression, drug-induced psychotic disorder, acute anxiety, substance abuse, alcohol intoxication, overdose, mood disorder and schizoaffective disorder Medical Records Attestation: I reviewed the patient's medical records. Lab Data Attestation: I reviewed the patient's lab results. Result diagrams: 09/01/21 18:58 09/01/21 18:58 Labs: Lab Results 09/01/21 09/01/21 09/01/21 Range/Units 18:58 18:58 18:58 WBC 17.2 H (4.8-10.8) X10*3/uL RBC 5.20 (4.60-5.80) X10*6/uL Hgb 15.5 (14.0-18.0) g/dl Hct 45.3 (42.0-52.0) % MCV 87.1 (80.0-98.0) fL MCH 29.8 (27.0-33.0) pg MCHC 34.2 (31.0-36.0) g/dl RDW 13.0 (11.0-16.0) % Plt Count 225 (160-400) X10*3/uL MPV 10.5 (9.4-12.4) fL Immature Gran % (Auto) 0.5 H (0.0-0.4) % Neut % (Auto) 88.0 H (45-73) % Lymph % (Auto) 4.7 L (20-40) % [place] % (Auto) 6.6 (2-11) % Eos % (Auto) 0.0 (0-4) % Baso % (Auto) 0.2 (0-2) % Lymph # (Auto) 0.8 L (1.2-4.9) X10*3/uL [place] # (Auto) 1.1 (0.1-1.2) X10*3/uL Eos # (Auto) 0.0 (0.0-0.4) X10*3/uL Baso # (Auto) 0.0 (0.0-0.2) X10*3/uL Abs Immat Gran (auto) 0.09 H (0.00-0.03) X10*3/uL Absolute Neuts (auto) 15.1 H (2.0-8.3) x10*3/uL Absolute Nucleated RBC 0.000 (0.0-0.012) X10*3/uL Nucleated RBC % (auto) 0.0 (0.0-0.2) /100WBC Sodium 138 (135-145) mmol/L Potassium 4.5 D (3.3-5.1) mmol/L Chloride 103 (96-108) mmol/L Carbon Dioxide 25 (22-29) mmol/L Anion Gap 15 (12-20) BUN 9 (9-16) mg/dL Creatinine 0.92 (0.5-1.4) mg/dL Estim Creat Clear Calc 124.5 Estimated GFR > 60 Random Glucose 136 H (60-115) mg/dL Calcium 10.4 H D (8.4-10.2) mg/dL Total Bilirubin 0.4 (0.0-1.0) mg/dL Direct Bilirubin 0.2 (0.0-0.5) mg/dL AST 18 D (5-37) U/L ALT 19 (0-40) U/L Alkaline Phosphatase 77 D (39-117) U/L Total Protein 8.1 H (6.5-8.0) g/dL Albumin 5.2 H (3.5-5.0) g/dL Lipase 6 L (8-78) U/L Salicylates < 5.0 L (15-30) mg/dL Acetaminophen < 1 (<30) mcg/mL Ethyl Alcohol < 10 mg/dL Discharge Plan Discharge Clinical Impression: Heroin use, Alcohol intoxication, Anxiety Patient Disposition: Home, Self-Care Instructions: Anxiety (ED), Abuse of Alcohol (DC), Narcotic Use Disorder (ED) Additional Instructions: Please follow up with your doctor. Prescriptions: No Action benztropine 1 mg Tablet 1 mg PO BID 30 Days Qty: 30 1RF Label Comments: pt stated he as only been taking once a day at bedtime olanzapine 20 mg Tablet 20 mg PO BEDTIME 30 Days Qty: 15 1RF trazodone 100 mg Tablet 100 mg PO BEDTIME 30 Days Qty: 15 1RF quetiapine [Seroquel] 25 mg tablet 1 tab PO TID 0RF
[2021-09-01] MEDS: Ondansetron ODT 4 MG TAB.RAPDIS TRANSLINGU (18:59)
[2021-09-01 19:05] LABS: MANUAL DIFF FLAG NO
[2021-09-01 19:06] LABS: Basophils Percent Auto 0.2 % (0-2); Hematocrit 45.3 % (42.0-52.0); Hemoglobin 15.5 g/dl (14.0-18.0); Imm Gran Abs Auto 0.09 X10*3/uL (0.00-0.03); Imm Gran Pct Auto 0.5 % (0.0-0.4); Lymphocytes Absolute Auto 0.8 X10*3/uL (1.2-4.9); Lymphocytes Percent Auto 4.7 % (20-40); Mean Corpuscular HGB Conc 34.2 g/dl (31.0-36.0); Mean Corpuscular Hemoglobin 29.8 pg (27.0-33.0); Mean Corpuscular Volume 87.1 fL (80.0-98.0); Mean Platelet Volume 10.5 fL (9.4-12.4); Monocytes Absolute Auto 1.1 X10*3/uL (0.1-1.2); Monocytes Percent Auto 6.6 % (2-11); Neutrophils Absolute Auto 15.1 x10*3/uL (2.0-8.3); Platelet Count 225 X10*3/uL (160-400); White Blood Count 17.2 X10*3/uL (4.8-10.8)
--- NOTE | 2021-09-01 19:12 | MHC.RECOVSUP ---
? Reason for consult: Recovery Support o ? ? ?Current location: ED22 o ? ? ?Identified substance use concern: Heroine, Crack & Alcohol ? ?Intervention: o Community resources provided o Harm reduction discussion ? Plan: o Referral to [facility] ? Additional information:?I was able to connect with ER Physician, Hugo Youngblood and confirmed a point of contact with patient. Miguel Ángel, is a 26 year male with a history of AUD and DEON associated with heroine and crack. Patient informs me that he was actively using four hours prior to entering the ED and states that he is scared to fall asleep. Patient was experiencing vomiting, delusions, paranoia and had visible burn blisters from a crack pipe on his lips. In addition to nodding out during consultation,I ended the meeting and left information in regards to community resources including a referral for [facility].
[2021-09-01 19:22] LABS: Ethanol < 10 mg/dL
[2021-09-01 19:24] LABS: Acetaminophen LAB < 1 mcg/mL (<30); Alanine Aminotransferase 19 U/L (0-40); Albumin Level 5.2 g/dL (3.5-5.0); Alkaline Phosphatase 77 U/L (39-117); Anion Gap 15 (12-20); Aspartate Amino Transferase 18 U/L (5-37); Bilirubin Direct 0.2 mg/dL (0.0-0.5); Bilirubin Total 0.4 mg/dL (0.0-1.0); Blood Urea Nitrogen 9 mg/dL (9-16); Calcium 10.4 mg/dL (8.4-10.2); Carbon Dioxide 25 mmol/L (22-29); Chloride 103 mmol/L (96-108); Creatinine Clr Calc Pharmacy 124.5; Estimated Glomerular Filt Rate > 60; Glucose Random 136 mg/dL (60-115); Lipase 6 U/L (8-78); Potassium 4.5 mmol/L (3.3-5.1); Salicylate < 5.0 mg/dL (15-30); Sodium 138 mmol/L (135-145); Total Protein 8.1 g/dL (6.5-8.0)
== END 2021-09-01 21:41 | disposition home or self-care (01) ==
PROVIDERS: Emergency Provider Student in an Organized Health Care Education/Training Program
DX: F10.129 Alcohol abuse with intoxication, unspecified (principal); Y90.0 Blood alcohol level of less than 20 mg/100 ml; F11.90 Opioid use, unspecified, uncomplicated; F41.9 Anxiety disorder, unspecified; F25.9 Schizoaffective disorder, unspecified; F17.210 Nicotine dependence, cigarettes, uncomplicated
CPT/HCPCS: 36415; 80048; 80076; 80143; 80179; 82077; 83690; 85025; 99283; 99284

== ENCOUNTER 2021-09-13 08:46 | Emergency (ER) | payer MEDICARE, MEDICAID, SELFPAY ==
[2021-09-13 08:49] VITALS: BP 146/80; BP 155/90; PULSE 55; PULSE 59; RESP 16; TEMP 37.1; O2SAT 100; O2SAT 99; BMI 26.2
[2021-09-13] MEDS: Ondansetron ODT 4 MG TAB.RAPDIS TRANSLINGU (09:01)
--- NOTE | 2021-09-13 09:10 | ED.GENADULT ---
HPI - General Adult General Chief complaint: ETOH/Substance Use Stated complaint: COCAINE @3AM,BEERS,2 OXY,NOT FEELING WELL PER EMS Time Seen by Provider: 09/13/21 08:57 Source: patient and EMS Mode of arrival: EMS Limitations: no limitations History of Present Illness HPI narrative: 26-year-old male with a history of PTSD, schizophrenia here with reports of nausea, vomiting and headache. Patient tells me the symptoms began after 03:00 after he drinks 5 beers and use some cocaine that a friend gave him. He tells me that he took 2 oxycodone for his headache prior to arrival but does not know the dose of these medications. Prior to drinking alcohol and using cocaine he was feeling well. He denies any abdominal pain, diarrhea, cough, fevers, chills. Patient tells me he did not take these medications to harm himself but he was just trying to have fun. No suicidal thought Related Data Home Medications Medication Instructions Recorded Confirmed quetiapine 25 mg tablet (Seroquel) 1 tab PO TID 10/25/20 10/25/20 Previous Rx's Medication Instructions Recorded benztropine 1 mg tablet 1 mg PO BID 30 Days #30 tab 06/12/20 olanzapine 20 mg tablet 20 mg PO BEDTIME 30 Days #15 tab 06/12/20 trazodone 100 mg tablet 100 mg PO BEDTIME 30 Days #15 tab 06/12/20 Allergies Allergy/AdvReac Type Severity Reaction Status Date / Time morphine [MORPHINE] AdvReac Unknown NAUSEA Verified 09/13/21 09:13 Review of Systems Review of Systems: Yes all other systems are reviewed and are negative Constitutional: Constitutional: Reports no additional constitutional complaints, Denies body ache(s), Denies chills, Denies fever(s), Reports headache(s) and Denies weakness Eyes: Eyes: Reports no additional eye complaints and Denies change in vision ENT: Reports system reviewed and no additional complaints, except as documented, Denies dizziness, Reports headache(s), Denies nasal congestion, Denies nasal discharge and Denies neck pain Cardiovascular: Cardiovascular: Reports no additional cardiovascular complaints, Denies chest pain, Denies leg edema and Denies dyspnea Respiratory: Respiratory: Reports no additional respiratory complaints, Denies cough and Denies dyspnea Gastrointestinal: Gastrointestinal: Reports no additional gastrointestinal complaints, Denies abdominal pain, Denies diarrhea, Reports nausea and Reports vomiting Genitourinary: Genitourinary: Denies urinary incontinence Musculoskeletal: Musculoskeletal: Reports no additional musculoskeletal complaints, Denies back pain, Denies arthralgias, Denies joint swelling, Denies neck pain, Denies numbness and Denies tingling Integumentary/Breasts: Skin/Breast: Reports system reviewed and no additional complaints, except as docu and Denies rash Neurologic: Reports system reviewed and no additional complaints, except as documented, Denies dizziness, Reports headache(s), Denies numbness, Denies tingling and Denies weakness PMFSH Past Medical History Medical History Anxiety Bipolar affective Depression PCP abuse PTSD (post-traumatic stress disorder) Schizoaffective disorder, bipolar type Schizophrenia Schizophrenia Suicidal behavior Social History Social History Household Members: Family Housing: Apartment Do you presently have visiting nurse or other home services: No Alcohol intake: never Patient Tobacco Use Status: Current everyday Tobacco user Cigarette Packs Per Day: 0.25 Cigarettes Per Day: 5.0 Years Smoked: 10 Second Hand Smoke Exposure: No Substance Use Type: Heroin Advance Directives: No Advance Directives Information Provided: No service: No Sexual orientation: Straight/Heterosexual Physical Exam ED Vital Signs: Vital Signs - 24 hr 09/13/21 08:49 Temperature 98.7 F Pulse Rate 59 Respiratory Rate 16 Blood Pressure 146/80 H Pulse Oximetry 99 BMI result Body Mass Index 26.2 Const General: cooperative, healthy appearing, comfortable and no acute distress Orientation/consciousness: patient oriented x3 Limitations: no limitations HENMT Head: Yes normal to inspection Ears: hearing grossly normal bilaterally and TM's normal bilaterally General nose exam: Normal external nose present Face and sinus: Yes normal facial exam Mouth: Normal oral and palatal mucosa present Teeth and gingiva: dentition normal Throat: Yes posterior oropharynx normal, Yes tonsils normal and Yes uvula midline Eyes General: appearance normal, both eyes and all related structures Pupils: Equal, round and reactive pupils present Neck Neck: Yes normal visual inspection, Yes full ROM, Yes no lymphadenopathy and Yes no meningeal signs Chest Chest palpation & inspection: normal inspection of the chest Resp Effort & Inspection: normal respiratory effort Auscultation: clear to auscultation bilaterally Cardio Rate: regular rate Rhythm: regular rhythm Peripheral pulses: Peripheral pulses 2+ throughout GI Inspection: Yes normal to inspection Palpation (GI): Soft to palpation and nontender General: Yes no CVA tenderness Back/Spine/Pelvis Back: no CVA tenderness Skin General skin exam: no rashes or lesions noted Neuro General: patient oriented x3 and no meningeal signs Cranial nerves: Yes CN's II-XII intact bilaterally, Yes Equal, round and reactive pupils present, Yes Bilaterally intact EOM present, Yes Nystagmus not present, Yes Normal facial strength present and Yes Midline tongue present Cognition (Neuro): normal cognition Gait exam (Neuro): Normal gait present Motor exam (neuro): 5/5 motor strength present throughout Sensory Exam: Normal double simultaneous stimulation for sensation Extrem General: Yes normal to inspection, Yes no pedal edema and Yes no calf tenderness Course Course Course Narrative: 26-year-old male here with reports of headache, nausea and vomiting after drinking alcohol and using cocaine at 03:00 o'clock this morning. Normal neurological exam. No focal abdominal pain on exam. Vitals are stable. No suicidal thoughts. Patient alert and oriented x3. Will give sublingual Zofran, provide Tylenol. Will check drug screen, flu and COVID testing Reevaluation(s) Reevaluation #1: Patient feels anxious. NO SI/HI/Hallucinations. Wants to speak to crisis. Will order screening labs. If he wants to leave he can. Nursing aware. Time: 10:15 Reevaluation #2: Toxicology positive for fentanyl, cocaine, marijuana. Additional labs are okay. Tolerating zofran, tylenol and feels better. No concern for acute ingestion or trauma. Pending crisis evaluation. Time: 11:40 Reevaluation #3: Patient was seen by crisis. No suicidal thoughts. Plan for discharge home with outpatient follow-up Time: 15:30 Medical Decision Making Medical Records Medical records reviewed: Yes I reviewed the patient's medical records. Lab Data Lab results reviewed: Yes I reviewed the patient's lab results. Result diagrams: 09/13/21 10:29 09/13/21 10:29 Labs: Lab Results 09/13/21 09/13/21 09/13/21 Range/Units 09:17 09:18 10:23 WBC (4.8-10.8) X10*3/uL RBC (4.60-5.80) X10*6/uL Hgb (14.0-18.0) g/dl Hct (42.0-52.0) % MCV (80.0-98.0) fL MCH (27.0-33.0) pg MCHC (31.0-36.0) g/dl RDW (11.0-16.0) % Plt Count (160-400) X10*3/uL MPV (9.4-12.4) fL Immature Gran % (Auto) (0.0-0.4) % Neut % (Auto) (45-73) % Lymph % (Auto) (20-40) % [place] % (Auto) (2-11) % Eos % (Auto) (0-4) % Baso % (Auto) (0-2) % Lymph # (Auto) (1.2-4.9) X10*3/uL [place] # (Auto) (0.1-1.2) X10*3/uL Eos # (Auto) (0.0-0.4) X10*3/uL Baso # (Auto) (0.0-0.2) X10*3/uL Abs Immat Gran (auto) (0.00-0.03) X10*3/uL Absolute Neuts (auto) (2.0-8.3) x10*3/uL Absolute Nucleated RBC (0.0-0.012) X10*3/uL Nucleated RBC % (auto) (0.0-0.2) /100WBC Sodium (135-145) mmol/L Potassium (3.3-5.1) mmol/L Chloride (96-108) mmol/L Carbon Dioxide (22-29) mmol/L Anion Gap (12-20) BUN (9-16) mg/dL Creatinine (0.5-1.4) mg/dL Estim Creat Clear Calc Estimated GFR Random Glucose (60-115) mg/dL Calcium (8.4-10.2) mg/dL Total Bilirubin (0.0-1.0) mg/dL Direct Bilirubin (0.0-0.5) mg/dL AST (5-37) U/L ALT (0-40) U/L Alkaline Phosphatase (39-117) U/L Total Protein (6.5-8.0) g/dL Albumin (3.5-5.0) g/dL Urine Opiates Screen Not Detected (Not Detect) Urine Fentanyl Screen POSITIVE H (Not Detect) Ur Barbiturates Screen Not Detected (Not Detect) Ur Phencyclidine Scrn Not Detected (Not Detect) Ur Amphetamines Screen Not Detected (Not Detect) U Benzodiazepines Scrn Not Detected (Not Detect) Urine Cocaine Screen POSITIVE H (Not Detect) U Marijuana (THC) Screen POSITIVE H (Not Detect) COVID-19 (LO) Negative (Negative) COVID-19 Clin Com See Note Influenza Type A (FATIMAH) Negative (Negative) Influenza Type B (FATIMAH) Negative (Negative) Influenza A & B Note See Note 09/13/21 09/13/21 Range/Units 10:29 10:29 WBC 11.4 H (4.8-10.8) X10*3/uL RBC 5.39 (4.60-5.80) X10*6/uL Hgb 16.0 (14.0-18.0) g/dl Hct 46.7 (42.0-52.0) % MCV 86.6 (80.0-98.0) fL MCH 29.7 (27.0-33.0) pg MCHC 34.3 (31.0-36.0) g/dl RDW 13.1 (11.0-16.0) % Plt Count 309 D (160-400) X10*3/uL MPV 10.4 (9.4-12.4) fL Immature Gran % (Auto) 0.3 (0.0-0.4) % Neut % (Auto) 70.8 (45-73) % Lymph % (Auto) 17.4 L (20-40) % [place] % (Auto) 9.7 (2-11) % Eos % (Auto) 1.3 (0-4) % Baso % (Auto) 0.5 (0-2) % Lymph # (Auto) 2.0 (1.2-4.9) X10*3/uL [place] # (Auto) 1.1 (0.1-1.2) X10*3/uL Eos # (Auto) 0.2 (0.0-0.4) X10*3/uL Baso # (Auto) 0.1 (0.0-0.2) X10*3/uL Abs Immat Gran (auto) 0.03 (0.00-0.03) X10*3/uL Absolute Neuts (auto) 8.0 (2.0-8.3) x10*3/uL Absolute Nucleated RBC 0.000 (0.0-0.012) X10*3/uL Nucleated RBC % (auto) 0.0 (0.0-0.2) /100WBC Sodium 136 (135-145) mmol/L Potassium 3.9 (3.3-5.1) mmol/L Chloride 102 (96-108) mmol/L Carbon Dioxide 22 (22-29) mmol/L Anion Gap 16 (12-20) BUN 11 (9-16) mg/dL Creatinine 0.90 (0.5-1.4) mg/dL Estim Creat Clear Calc 127.2 Estimated GFR > 60 Random Glucose 108 (60-115) mg/dL Calcium 10.3 H (8.4-10.2) mg/dL Total Bilirubin 0.9 (0.0-1.0) mg/dL Direct Bilirubin 0.4 (0.0-0.5) mg/dL AST 13 (5-37) U/L ALT 9 (0-40) U/L Alkaline Phosphatase 70 (39-117) U/L Total Protein 7.9 (6.5-8.0) g/dL Albumin 4.9 (3.5-5.0) g/dL Urine Opiates Screen (Not Detect) Urine Fentanyl Screen (Not Detect) Ur Barbiturates Screen (Not Detect) Ur Phencyclidine Scrn (Not Detect) Ur Amphetamines Screen (Not Detect) U Benzodiazepines Scrn (Not Detect) Urine Cocaine Screen (Not Detect) U Marijuana (THC) Screen (Not Detect) COVID-19 (LO) (Negative) COVID-19 Clin Com Influenza Type A (FATIMAH) (Negative) Influenza Type B (FATIMAH) (Negative) Influenza A & B Note Discharge Plan Discharge Clinical Impression: Anxiety, Polysubstance (including opioids) dependence, daily use Patient Disposition: Home, Self-Care Instructions: Polysubstance Abuse (ED), Anxiety (ED) Additional Instructions: Continue your home medications Follow-up with your outpatient providers Prescriptions: No Action benztropine 1 mg Tablet 1 mg PO BID 30 Days Qty: 30 1RF Label Comments: pt stated he as only been taking once a day at bedtime olanzapine 20 mg Tablet 20 mg PO BEDTIME 30 Days Qty: 15 1RF trazodone 100 mg Tablet 100 mg PO BEDTIME 30 Days Qty: 15 1RF quetiapine [Seroquel] 25 mg tablet 1 tab PO TID 0RF Referrals: Physician,Unknown J [Primary Care Provider] -
--- NOTE | 2021-09-13 09:11 | PC.NURSE ---
Pt resting in stretcher. Provided with ODT zofran. will medicate with tylenol after. provided pt with urinal for urine sample. Tech at bedside collecting covid and flu swabs.
[2021-09-13] MEDS: Acetaminophen 325 MG TABLET 975 MG PO (09:19)
[2021-09-13 09:42] LABS: IDNOW Serial# 9DD0AD1C; Influenza A Negative (Negative); Influenza B2 Negative (Negative)
[2021-09-13 09:43] LABS: COVID-19 Test Negative (Negative); IDNOW Serial# 55D5AD1C
[2021-09-13 10:36] LABS: MANUAL DIFF FLAG NO
[2021-09-13 10:38] LABS: Basophils Absolute Auto 0.1 X10*3/uL (0.0-0.2); Basophils Percent Auto 0.5 % (0-2); Eosinophils Absolute Auto 0.2 X10*3/uL (0.0-0.4); Eosinophils Percent Auto 1.3 % (0-4); Hematocrit 46.7 % (42.0-52.0); Imm Gran Abs Auto 0.03 X10*3/uL (0.00-0.03); Imm Gran Pct Auto 0.3 % (0.0-0.4); Lymphocytes Percent Auto 17.4 % (20-40); Mean Corpuscular HGB Conc 34.3 g/dl (31.0-36.0); Mean Corpuscular Hemoglobin 29.7 pg (27.0-33.0); Mean Corpuscular Volume 86.6 fL (80.0-98.0); Mean Platelet Volume 10.4 fL (9.4-12.4); Monocytes Absolute Auto 1.1 X10*3/uL (0.1-1.2); Monocytes Percent Auto 9.7 % (2-11); Neutrophils Percent Auto 70.8 % (45-73); Platelet Count 309 X10*3/uL (160-400); Red Blood Count 5.39 X10*6/uL (4.60-5.80); Red Cell Distribution Width 13.1 % (11.0-16.0); White Blood Count 11.4 X10*3/uL (4.8-10.8)
[2021-09-13 10:58] LABS: Amphetamine Screen Urine Not Detected (Not Detect); Barbiturates, Urine Not Detected (Not Detect); Benzodiazepines Screen Urine Not Detected (Not Detect); Cannabinoid Screen Urine POSITIVE (Not Detect); Cocaine Screen Urine POSITIVE (Not Detect); Fentanyl, urine POSITIVE (Not Detect); Opiate Screen Urine Not Detected (Not Detect); Phencyclidine Screen Urine Not Detected (Not Detect)
[2021-09-13 10:58] LABS: Alanine Aminotransferase 9 U/L (0-40); Albumin Level 4.9 g/dL (3.5-5.0); Alkaline Phosphatase 70 U/L (39-117); Anion Gap 16 (12-20); Aspartate Amino Transferase 13 U/L (5-37); Bilirubin Direct 0.4 mg/dL (0.0-0.5); Bilirubin Total 0.9 mg/dL (0.0-1.0); Blood Urea Nitrogen 11 mg/dL (9-16); Calcium 10.3 mg/dL (8.4-10.2); Carbon Dioxide 22 mmol/L (22-29); Chloride 102 mmol/L (96-108); Creatinine Clr Calc Pharmacy 127.2; Estimated Glomerular Filt Rate > 60; Glucose Random 108 mg/dL (60-115); Potassium 3.9 mmol/L (3.3-5.1); Sodium 136 mmol/L (135-145); Total Protein 7.9 g/dL (6.5-8.0)
[2021-09-13] MEDS: LORazepam 1 MG TABLET 2 MG PO (15:07)
== END 2021-09-13 15:39 | disposition home or self-care (01) ==
PROVIDERS: Nurse Practitioner Family; Emergency Provider Emergency Medicine
DX: F11.288 Opioid dependence with other opioid-induced disorder (principal); F17.210 Nicotine dependence, cigarettes, uncomplicated; F20.9 Schizophrenia, unspecified; F14.90 Cocaine use, unspecified, uncomplicated; R51.9 Headache, unspecified; Z71.6 Tobacco abuse counseling; Z20.822 Contact with and (suspected) exposure to COVID-19; Z79.899 Other long term (current) drug therapy
CPT/HCPCS: 36415; 80048; 80076; 80307; 85025; 87502; 87635; 99284

== ENCOUNTER 2021-09-15 11:15 | Emergency (ER) | payer MEDICARE, MEDICAID, SELFPAY ==
[2021-09-15 11:29] VITALS: BP 134/78; PULSE 97; PULSE 98; RESP 17; TEMP 37.1; O2SAT 96; BMI 25.5
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
[2021-09-15 12:11] LABS: MANUAL DIFF FLAG NO
[2021-09-15 12:13] LABS: Basophils Percent Auto 0.3 % (0-2); Eosinophils Percent Auto 0.1 % (0-4); Hematocrit 42.3 % (42.0-52.0); Hemoglobin 14.3 g/dl (14.0-18.0); Imm Gran Abs Auto 0.06 X10*3/uL (0.00-0.03); Imm Gran Pct Auto 0.4 % (0.0-0.4); Lymphocytes Percent Auto 6.7 % (20-40); Mean Corpuscular HGB Conc 33.8 g/dl (31.0-36.0); Mean Corpuscular Hemoglobin 29.9 pg (27.0-33.0); Mean Corpuscular Volume 88.5 fL (80.0-98.0); Mean Platelet Volume 10.5 fL (9.4-12.4); Monocytes Absolute Auto 0.8 X10*3/uL (0.1-1.2); Monocytes Percent Auto 5.8 % (2-11); Neutrophils Absolute Auto 12.3 x10*3/uL (2.0-8.3); Neutrophils Percent Auto 86.7 % (45-73); Platelet Count 239 X10*3/uL (160-400); Red Blood Count 4.78 X10*6/uL (4.60-5.80); Red Cell Distribution Width 13.1 % (11.0-16.0); White Blood Count 14.2 X10*3/uL (4.8-10.8)
[2021-09-15 12:26] LABS: Ethanol < 10 mg/dL
[2021-09-15 12:31] LABS: Acetaminophen LAB < 1 mcg/mL (<30); Alanine Aminotransferase 11 U/L (0-40); Albumin Level 4.6 g/dL (3.5-5.0); Alkaline Phosphatase 64 U/L (39-117); Anion Gap 13 (12-20); Aspartate Amino Transferase 12 U/L (5-37); Bilirubin Total 0.3 mg/dL (0.0-1.0); Blood Urea Nitrogen 14 mg/dL (9-16); Carbon Dioxide 25 mmol/L (22-29); Chloride 105 mmol/L (96-108); Creatinine Clr Calc Pharmacy 124.3; Estimated Glomerular Filt Rate > 60; Glucose Random 125 mg/dL (60-115); Salicylate < 5.0 mg/dL (15-30); Sodium 139 mmol/L (135-145); Total Protein 7.1 g/dL (6.5-8.0)
[2021-09-15 14:22] LABS: Amphetamine Screen Urine Not Detected (Not Detect); Barbiturates, Urine Not Detected (Not Detect); Benzodiazepines Screen Urine Not Detected (Not Detect); Cannabinoid Screen Urine POSITIVE (Not Detect); Cocaine Screen Urine POSITIVE (Not Detect); Fentanyl, urine POSITIVE (Not Detect); Opiate Screen Urine POSITIVE (Not Detect); Phencyclidine Screen Urine Not Detected (Not Detect)
[2021-09-15 14:30] VITALS: BP 119/58; PULSE 83; RESP 16; TEMP 36.6; O2SAT 97
[2021-09-15 16:10] VITALS: BP 125/69; PULSE 69; RESP 16; TEMP 37.1; O2SAT 98
--- NOTE | 2021-09-15 19:47 | MHC.RECOVSUP ---
? Reason for consult:Recovery Support o Current location: [facility]? o ?Identified substance use concern: Crack? ? ?Intervention:Patient Consultation o Community resources provided o Harm reduction discussion ? Additional information:?Patient consultation with Mental Health Thread SeparatorLindsey before point of contact. Patient is a 26 year old male with a history of DEON with crack. Miguel Ángel lives at home with his parents, is unemployed and briefly shared how his life had became unmanageable. Patient was being discharged at the time of consultation however I was able to review harm reduction strategies and left him community resources. Miguel Ángel wasn't interested in further treatment at this time and implied that he can handle his disease on his own.
== END 2021-09-15 19:00 | disposition home or self-care (01) ==
PROVIDERS: Emergency Provider Emergency Medicine
DX: F25.9 Schizoaffective disorder, unspecified (principal); F33.1 Major depressive disorder, recurrent, moderate; R45.850 Homicidal ideations; R45.851 Suicidal ideations; F17.210 Nicotine dependence, cigarettes, uncomplicated; Z71.6 Tobacco abuse counseling; Z79.899 Other long term (current) drug therapy
CPT/HCPCS: 36415; 80053; 80143; 80179; 80307; 82077; 85025; 99284

== ENCOUNTER 2021-09-25 00:33 | Emergency (ER) | payer MEDICARE, MEDICAID, SELFPAY ==
[2021-09-25 00:43] VITALS: BP 138/83; PULSE 54; RESP 14; TEMP 36; O2SAT 94; BMI 26.2
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
[2021-09-25] MEDS: Naloxone HCl Nasal TAKE HOME 4 MG SPRAY NOSTRILALT (01:39)
[2021-09-25] MEDS: Magnesium Hydrox/Alum Hydrox 30 ML ORAL.SUSP PO (01:39)
[2021-09-25] MEDS: Lidocaine HCl Viscous 2 % 15 ML SOLUTION MUCOUS MEM (01:39)
[2021-09-25] MEDS: Ondansetron ODT 4 MG TAB.RAPDIS TRANSLINGU (01:39)
[2021-09-25 01:41] VITALS: BP 125/73; PULSE 53; RESP 16; O2SAT 95
[2021-09-25 01:48] LABS: MANUAL DIFF FLAG NO
[2021-09-25 01:50] LABS: Basophils Percent Auto 0.3 % (0-2); Eosinophils Percent Auto 0.3 % (0-4); Hematocrit 45.5 % (42.0-52.0); Hemoglobin 15.2 g/dl (14.0-18.0); Imm Gran Abs Auto 0.08 X10*3/uL (0.00-0.03); Imm Gran Pct Auto 0.6 % (0.0-0.4); Lymphocytes Absolute Auto 1.2 X10*3/uL (1.2-4.9); Lymphocytes Percent Auto 8.4 % (20-40); Mean Corpuscular HGB Conc 33.4 g/dl (31.0-36.0); Mean Corpuscular Hemoglobin 29.8 pg (27.0-33.0); Mean Corpuscular Volume 89.2 fL (80.0-98.0); Monocytes Percent Auto 6.8 % (2-11); Neutrophils Absolute Auto 11.7 x10*3/uL (2.0-8.3); Neutrophils Percent Auto 83.6 % (45-73); Platelet Count 247 X10*3/uL (160-400)
[2021-09-25 02:08] LABS: Alanine Aminotransferase 11 U/L (0-40); Albumin Level 4.7 g/dL (3.5-5.0); Alkaline Phosphatase 64 U/L (39-117); Anion Gap 13 (12-20); Aspartate Amino Transferase 12 U/L (5-37); Bilirubin Direct 0.2 mg/dL (0.0-0.5); Bilirubin Total 0.3 mg/dL (0.0-1.0); Blood Urea Nitrogen 17 mg/dL (9-16); Calcium 9.8 mg/dL (8.4-10.2); Carbon Dioxide 28 mmol/L (22-29); Chloride 101 mmol/L (96-108); Creatinine Clr Calc Pharmacy 121.8; Estimated Glomerular Filt Rate > 60; Glucose Random 120 mg/dL (60-115); Lipase 6 U/L (8-78); Potassium 4.3 mmol/L (3.3-5.1); Sodium 138 mmol/L (135-145); Total Protein 7.7 g/dL (6.5-8.0)
[2021-09-25 04:00] VITALS: BP 118/70; PULSE 43; RESP 16; TEMP 37.1; O2SAT 97
[2021-09-25 06:21] VITALS: BP 116/65; PULSE 58; RESP 12; TEMP 36.2; O2SAT 95
--- NOTE | 2021-09-25 06:57 | PC.NURSE ---
report given to XIAO Abad
== END 2021-09-25 08:12 | disposition home or self-care (01) ==
PROVIDERS: Emergency Medicine; Emergency Provider Emergency Medicine Emergency Medical Services
DX: T40.1X1A Poisoning by heroin, accidental (unintentional), initial encounter (principal); Y92.410 Unspecified street and highway as the place of occurrence of the external cause; R10.9 Unspecified abdominal pain
CPT/HCPCS: 36415; 80048; 80076; 83690; 85025; 99283

== ENCOUNTER 2021-09-30 23:04 | Emergency (ER) | payer MEDICARE, MEDICAID, SELFPAY ==
--- NOTE | 2021-09-30 23:17 | ED_ITS ---
HPI - Overdose General Chief Complaint: Overdose Stated Complaint: substance abuse Time Seen by Provider: 09/30/21 23:15 Source: patient and EMS Mode of arrival: EMS Limitations: no limitations History of Present Illness HPI Narrative: Patient comes to the emergency room via EMS. Patient was found [place] the local [place] station laying on the ground, patient is awake, states that he admits using heroin. Per EMS patient has a strong odor of alcohol. Patient denies SI, no HI. No Narcan has been given. Related Data Home Medications Medication Instructions Recorded Confirmed quetiapine 25 mg tablet (Seroquel) 1 tab PO TID 10/25/20 10/25/20 Previous Rx's Medication Instructions Recorded benztropine 1 mg tablet 1 mg PO BID 30 Days #30 tab 06/12/20 olanzapine 20 mg tablet 20 mg PO BEDTIME 30 Days #15 tab 06/12/20 trazodone 100 mg tablet 100 mg PO BEDTIME 30 Days #15 tab 06/12/20 Allergies Allergy/AdvReac Type Severity Reaction Status Date / Time morphine [MORPHINE] AdvReac Unknown NAUSEA Verified 09/13/21 09:13 Review of Systems Review of Systems: Constitutional : No Weight loss, No Fever, No Chills, No Night Sweats, No Fatigue, No Malaise, feeling somnolent ENT/Mouth : No Hearing loss, No Ear Pain, No Nasal Congestion, No Sinus Pain, No Hoarseness, No sore throat, No Rhinorrhea, No Swallowing Difficulty Eyes: No Eye Pain, No Swelling, No Redness, No Foreign Body, No Discharge, No Vision Changes Cardiovascular : No Chest Pain, No SOB, No Dyspnea on Exertion, No Orthopnea, No Edema, No Palpitations Respiratory : No Cough, No Sputum, No Wheezing, No Smoke Exposure, No Dyspnea Gastrointestinal : No Nausea, No Vomiting, No Diarrhea, No Constipation, No abdominal Pain, No Hematochezia, No Melena Genitourinary : no irregular bleeding, No Dysuria, No Urinary Frequency, No H ematuria, No Urinary Incontinence, No Urgency, No Flank Pain, No Urinary Flow Changes, No Hesitancy Musculoskeletal : No joint pain, No Myalgias, No Joint Swelling Skin : No Skin Lesions, No rash Neuro : No Weakness, No Numbness, No Paresthesias, No Loss of Consciousness, No Dizziness, No Headache Psych : No Anxiety/Panic, No Depression, No SI/HI/AH/VH, No Social Issues, Heme/Lymph: No Bruising, No Bleeding,No Lymphadenopathy Endocrine : No Polyuria, No Polydipsia, No Temperature Intolerance REPLACED BY [facility] Past Medical History Medical History (Updated 09/30/21 @ 23:23 by Jazmin Marks MD) Anxiety Bipolar affective Cocaine use disorder Depression PCP abuse Polysubstance (including opioids) dependence, daily use PTSD (post-traumatic stress disorder) Schizoaffective disorder, bipolar type Schizophrenia Schizophrenia Suicidal behavior Social History Social History Household Members: Family Housing: Apartment Do you presently have visiting nurse or other home services: No Alcohol intake: former Patient Tobacco Use Status: Never used Tobacco Cigarette Packs Per Day: 0.25 Cigarettes Per Day: 5.0 Years Smoked: 10 Second Hand Smoke Exposure: No Substance Use Type: Heroin service: No Sexual orientation: Straight/Heterosexual Physical Exam Vital Signs: Vital Signs: Last Vital Signs Temp 98.1 F 09/30/21 23:41 Pulse 86 09/30/21 23:41 Resp 16 09/30/21 23:41 BP 135/85 09/30/21 23:41 Pulse Ox 94 09/30/21 23:41 BMI result Body Mass Index 68.1 Const: Other: Appearance: Alert. Oriented X3. No acute distress. Eyes: Pupils equal, round and reactive to light. ENT: Pharynx normal. Neck: Normal inspection. Neck supple. No lymph nodes noted. No crepitus CVS: Normal heart rate and rhythm. Pulses normal. Normal S1 and S2 Respiratory: No respiratory distress. Breath sounds normal. No Wheezing. No rales Abdomen: Soft and nontender. No rigidity. No distention. Skin: Skin warm and dry. Normal skin color. Normal skin turgor. Extremities: No lower extremity edema. No Lacerations. No Rash Neuro: Oriented X 3. No motor deficit. No sensory deficit. Moving all extremities. No slurred speech. CN 2 through 12 grossly intact Psych: calm, cooperative, normal affect Course Course Course Narrative: Patient is awake and alert, patient was seen here approximately 4 days ago, patient did not want to wait then for the care team evaluation, requested to be discharged. Today, the care team has been contacted for the SUDE evaluation Physician observation started at 23:23 Care team evaluated the patient, patient wants additional help. Also, he stated that he is out of his medications. Per care team, they will re-evaluate the patient in the morning, he may need a psych consult to take a look at his meds. Patient denies suicidal homicidal ideation. In the meantime patient will remain in the emergency room. If patient does not want to be evaluated, he may do so. Patient is not under a Section 12. Discharge Plan Discharge Clinical Impression: Polysubstance (including opioids) dependence, daily use Patient Disposition: Still a Patient Prescriptions: No Action benztropine 1 mg Tablet 1 mg PO BID 30 Days Qty: 30 1RF Label Comments: pt stated he as only been taking once a day at bedtime olanzapine 20 mg Tablet 20 mg PO BEDTIME 30 Days Qty: 15 1RF trazodone 100 mg Tablet 100 mg PO BEDTIME 30 Days Qty: 15 1RF quetiapine [Seroquel] 25 mg tablet 1 tab PO TID 0RF
[2021-09-30 23:41] VITALS: BP 122/71; BP 135/85; PULSE 86; RESP 16; TEMP 36.7; O2SAT 94; BMI 68.1
--- NOTE | 2021-10-01 00:23 | MHC.CARE ---
Pt known to the ED for similar presentations. CARE team met with him for a SUDE. Pt was previously put on our radar from [facility] who appears to have growing concerns with pt. Pt appears slightly sedated but responding. He states he lives with his parents and has been struggling with using. Pt denies SI/HI, AH/VH does not appear to be responding to internal stimuli. He reports he has had providers at [facility] but has not followed up with them. He states he is taking his medications but then states he is missing some. Pt has been here several times this month, although denies SI, I encouraged him to remain here to be further evaluated and that way we can contact [facility]. Pt appears disheveled. Plan is for CARE team to follow up with him in the morning to conduct a risk screening and contact [facility].
[2021-10-01 00:54] LABS: COVID-19 Test Negative (Negative); IDNOW Serial# 55D5AD1C
[2021-10-01 00:59] LABS: Amphetamine Screen Urine Not Detected (Not Detect); Barbiturates, Urine Not Detected (Not Detect); Benzodiazepines Screen Urine Not Detected (Not Detect); Cannabinoid Screen Urine POSITIVE (Not Detect); Cocaine Screen Urine POSITIVE (Not Detect); Fentanyl, urine POSITIVE (Not Detect); Opiate Screen Urine POSITIVE (Not Detect); Phencyclidine Screen Urine Not Detected (Not Detect)
[2021-10-01] MEDS: Ondansetron ODT 4 MG TAB.RAPDIS TRANSLINGU (02:15)
[2021-10-01] MEDS: LORazepam 1 MG TABLET PO (02:15)
--- NOTE | 2021-10-01 05:29 | PC.NURSE ---
Patient slept through the night, out of bed x 2 for bathroom use and back, Zofran 4 mg po and Ativan 1 mg po administered at 0215 with positive effect, patient will evaluated by care team, med rec completed/pending provider's approval, behavior non concerning at this time, will continue to monitor.
--- NOTE | 2021-10-01 07:15 | PC.NURSE ---
patient appears to remain asleep at present respirations are even and unlabored patient appears in no distress
[2021-10-01 07:40] VITALS: BP 95/47; PULSE 68; RESP 15; TEMP 36.6; O2SAT 96
== END 2021-10-01 13:13 | disposition home or self-care (01) ==
PROVIDERS: Emergency Provider Emergency Medicine
DX: F19.10 Other psychoactive substance abuse, uncomplicated (principal); F11.20 Opioid dependence, uncomplicated; Z20.822 Contact with and (suspected) exposure to COVID-19; F25.0 Schizoaffective disorder, bipolar type; Z79.899 Other long term (current) drug therapy
CPT/HCPCS: 80307; 87635; 99282; 99283; 99284

== ENCOUNTER 2021-10-07 20:14 | Emergency (ER) | payer MEDICARE, MEDICAID, SELFPAY ==
--- NOTE | ~2021-10-07 | XR_ITS ---
EXAMINATION: XR ANKLE, LEFT CLINICAL INFORMATION: Left ankle pain. COMPARISON: None TECHNIQUE: AP, lateral, and mortise views of the left ankle. FINDINGS: No fracture or malalignment. Ankle mortise is symmetric. Bone mineralization is normal. Talar dome is unremarkable. Joint spaces are well-preserved. Small enthesopathic spur is present at the Achilles tendon insertion on the calcaneus. XR/XR ankle LT min 3V IMPRESSION: No acute osseous findings at the left ankle.
[2021-10-07 20:21] VITALS: BP 140/80; PULSE 84; O2SAT 99
[2021-10-07 21:06] VITALS: BP 130/70; PULSE 80; RESP 18; TEMP 37.1; O2SAT 100; BMI 26.4
--- NOTE | 2021-10-07 21:08 | PC.NURSE ---
Patient requesting to know wait time. rough estimate of 3.5 hours given. Per patient fuck that i'm not waiting that long. I'm going to leave. I need pills for this . Pt educated to purpose of triage and plan to protocol xr of ankle. Per pt fuck that I just need pills. Can't you given me something? pt educated to purpose of triage and protocoling procedures.
== END 2021-10-07 23:59 | disposition left against medical advice (07) ==
PROVIDERS: Emergency Provider Emergency Medicine
DX: Z04.1 Encounter for examination and observation following transport accident (principal)
CPT/HCPCS: 73610; 99283

== ENCOUNTER 2021-10-23 21:01 | Emergency (ER) | payer MEDICARE, MEDICAID, SELFPAY ==
[2021-10-23 21:06] VITALS: BP 150/90; PULSE 73; O2SAT 98
[2021-10-23 21:07] VITALS: BP 127/76; PULSE 46; RESP 16; TEMP 36.8; O2SAT 96; BMI 25.1
--- NOTE | 2021-10-23 21:18 | ED.GENADULT ---
HPI - General Adult General Chief complaint: Abdominal Pain Stated complaint: abdominal pain after drug use Time Seen by Provider: 10/23/21 21:08 Source: patient Limitations: no limitations History of Present Illness HPI narrative: This is a 26-year-old male with a history of polysubstance abuse as well as PTSD, schizoaffective disorder, who states he used heroin about 3 hours ago and developed some abdominal discomfort. He notes he has nausea but has not vomited. Denies any constipation or diarrhea. He has had similar abdominal pain in the past after using heroin. He denies any chest pain or shortness of breath. Related Data Home Medications Medication Instructions Recorded Confirmed clonidine HCl 0.1 mg tablet 0.1 mg PO BEDTIME 10/01/21 10/01/21 haloperidol 10 mg tablet 10 mg PO BEDTIME 10/01/21 10/01/21 quetiapine 50 mg tablet (Seroquel) 1 - 2 tab PO BEDTIME PRN insomnia 10/01/21 10/01/21 Previous Rx's Medication Instructions Recorded naloxone 4 mg/actuation nasal 4 mg intranasal Q2M PRN opioid 10/23/21 spray (Narcan) overdose #2 ea Allergies Allergy/AdvReac Type Severity Reaction Status Date / Time morphine [MORPHINE] AdvReac Unknown NAUSEA Verified 09/13/21 09:13 Review of Systems Review of Systems: As per HPI Constitutional: Constitutional: Denies fever(s) Genitourinary: Genitourinary: Reports no additional male genitourinary complaints PMFSH Past Medical History Medical History (Updated 10/23/21 @ 23:13 by Yonatan Kamara MD) Anxiety Bipolar affective Depression PCP abuse Schizophrenia Schizophrenia Suicidal behavior Social History Social History Household Members: Family Housing: Apartment Do you presently have visiting nurse or other home services: No Alcohol intake: current Alcohol intake frequency: a few times a week Alcohol type: beer Patient Tobacco Use Status: Never used Tobacco Cigarette Packs Per Day: 0.25 Cigarettes Per Day: 5.0 Years Smoked: 10 Second Hand Smoke Exposure: No Use of substances other than those prescribed or required for medical reasons: Yes Substance Use Type: Crack/Cocaine and Heroin Substance Use Frequency: Daily Advance Directives: No Advance Directives Information Provided: No service: No Sexual orientation: Straight/Heterosexual Physical Exam ED Vital Signs: Vital Signs - 24 hr 10/23/21 21:07 10/23/21 22:06 Temperature 98.2 F 97.7 F Pulse Rate 46 L 43 L Respiratory Rate 16 14 Blood Pressure 127/76 121/78 Pulse Oximetry 96 100 Oxygen Delivery Method Room Air Room Air BMI result Body Mass Index 25.1 Const Other: Patient does answer questions with minimal words, wants to live with his eyes closed. Pupils are pinpoint. General: no acute distress Orientation/consciousness: patient oriented x3 HENMT Head: Yes normal to inspection General nose exam: Normal external nose present Mouth: moist mucous membranes Throat: Yes posterior oropharynx normal, Yes tonsils normal and Yes uvula midline Eyes Other: Pupils pinpoint Eyelids: Yes eyelids normal Conjunctivae: conjunctivae normal Pupils: Equal, round and reactive pupils present Neck Neck: Yes supple Resp Effort & Inspection: normal respiratory effort Auscultation: clear to auscultation bilaterally Cardio Rate: regular rate Rhythm: regular rhythm Heart sounds: S1 normal heart sound present, S2 normal heart sound present, no gallops, no murmurs and no rubs GI Other: Minimal tenderness epigastric Inspection: No distended Palpation (GI): Soft to palpation and Tenderness to palpation present (GI) Auscultation: normal bowel sounds Skin General skin exam: other (Warm and dry) Neuro General: patient oriented x3 and CN's II-XI intact bilaterally Cranial nerves: Yes Equal, round and reactive pupils present Extrem General: Yes no pedal edema Psych Affect: normal affect Attitude: cooperative Medical Decision Making [facility] Narrative Medical decision making narrative: Upon reassessment at 23:00, the patient is more awake, states he feels improved after the Zofran. Patient is still not very forthcoming in terms of his verbal expression, and has a somewhat flat affect. Patient requests pain medicine. I explained to him that since he was under the influence of heroin and seemed mildly tended when he 1st arrived, that narcotic pain medicine was not advisable and he could have acetaminophen or ibuprofen. The patient denies so settle ideation homicidal ideation, declines evaluation by the crisis team, does not want to pursue detox. Patient does ask for something to eat and drink Discharge Plan Discharge Clinical Impression: Polysubstance (including opioids) dependence, daily use, Abdominal pain Patient Disposition: Home, Self-Care Instructions: Abdominal Pain (ED), Opioid Use Disorder (ED) Additional Instructions: Continue current medications. Avoid using street drugs as their contents are unpredictable and can result in overdose and . Prescriptions: New naloxone [Narcan] 4 mg/actuation spray,non-aerosol 4 mg intranasal Q2M PRN (Reason: opioid overdose) Qty: 2 0RF Rx Instructions: spray 1 dose into ONE nostril; alternate nostrils w each dose until help arrives No Action quetiapine [Seroquel] 50 mg tablet 1 - 2 tab PO BEDTIME PRN (Reason: insomnia) haloperidol 10 mg tablet 10 mg PO BEDTIME clonidine HCl 0.1 mg tablet 0.1 mg PO BEDTIME
[2021-10-23] MEDS: Ondansetron ODT 4 MG TAB.RAPDIS TRANSLINGU (22:05)
[2021-10-23 22:06] VITALS: BP 121/78; PULSE 43; RESP 14; TEMP 36.5; O2SAT 100
[2021-10-23] MEDS: Acetaminophen 325 MG TABLET 650 MG PO (23:12)
--- NOTE | 2021-10-23 23:19 | PC.NURSE ---
Patient reports nausea resolved after receiving Zofran. Patient continues to c/o abdominal pain with improvement-pain is intermittent and less intense. Patient requesting some food and fluid. Patient given turkey sandwich, apple sauce and bharat mario-tolerated well, patient denies nausea and abdominal pain after eating/drinking bharat mario.
[2021-10-24 00:26] VITALS: BP 110/66; PULSE 51; RESP 16; O2SAT 94
== END 2021-10-24 01:23 | disposition home or self-care (01) ==
PROVIDERS: Emergency Provider Emergency Medicine
DX: R10.9 Unspecified abdominal pain (principal); F11.20 Opioid dependence, uncomplicated; F19.20 Other psychoactive substance dependence, uncomplicated; F43.10 Post-traumatic stress disorder, unspecified; F25.9 Schizoaffective disorder, unspecified
CPT/HCPCS: 99283; 99284

== ENCOUNTER 2022-05-06 09:16 | Emergency (ER) | payer MEDICARE, MEDICAID, SELFPAY ==
--- NOTE | 2022-05-06 09:26 | ED.GENADULT ---
HPI - General Adult General Chief complaint: ETOH/Substance Use Stated complaint: not feeling well s/p heroin use no narcan per EMS Time Seen by Provider: 05/06/22 09:25 Source: patient and EMS Mode of arrival: EMS Limitations: no limitations History of Present Illness HPI narrative: Patient is a 26 year old assigned male at with a history of PTSD and opioid use disorder presenting to the emergency department today after heroin use. Patient states that he used a bag of heroin from a different dealer and felt unwell after. Patient states that he originally wanted to come here to be evaluated for detox but now he would like a sandwich and to be discharged. Patient denies any dizziness, lightheadedness, abdominal pain, nausea, vomiting, fever, chills, blurry vision, double vision, loss of vision, chest pain, difficulty breathing, shortness of breath, back pain, night sweats, pain with urination, increased urinary frequency, increased urinary urgency, blood in his urine or stool, syncope or a near syncopal episode, recent trauma or falls, bowel incontinence, bladder incontinence, bowel retention, bladder retention, or any other complaints at this time. Onset (ago): minute(s) Severity: mild Severity scale (1-10): 2 Relieving factors: none Exacerbating factors: none Associated symptoms: denies other symptoms Treatments prior to arrival: none Related Data Home Medications Medication Instructions Recorded Confirmed clonidine HCl 0.1 mg tablet 0.1 mg PO BEDTIME 10/01/21 10/01/21 haloperidol 10 mg tablet 10 mg PO BEDTIME 10/01/21 10/01/21 quetiapine 50 mg tablet (Seroquel) 1 - 2 tab PO BEDTIME PRN insomnia 10/01/21 10/01/21 Previous Rx's Medication Instructions Recorded naloxone 4 mg/actuation nasal 4 mg intranasal Q2M PRN opioid 10/23/21 spray (Narcan) overdose #2 ea Allergies Allergy/AdvReac Type Severity Reaction Status Date / Time morphine [MORPHINE] AdvReac Unknown NAUSEA Verified 09/13/21 09:13 Review of Systems Constitutional: Constitutional: Reports no additional constitutional complaints, Denies chills, Denies fever(s) and Denies night sweats Eyes: Eyes: Reports no additional eye complaints, Denies blurry vision, Denies change in vision, Denies diplopia, Denies eye discharge, Denies loss of vision and Denies eye pain ENT: Denies dizziness Cardiovascular: Cardiovascular: Reports no additional cardiovascular complaints, Denies chest pain, Denies lightheadedness, Denies Loss of Consciousness and Denies dyspnea Respiratory: Respiratory: Reports no additional respiratory complaints and Denies dyspnea Gastrointestinal: Gastrointestinal: Reports no additional gastrointestinal complaints, Denies abdominal pain, Denies melena, Denies hematochezia, Denies change in bowel habits and Denies change in stool character Genitourinary: Genitourinary: Reports no additional male genitourinary complaints, Denies hematuria, Denies oliguria, Denies difficulty urinating, Denies dysuria, Denies urinary frequency, Denies urinary hesitancy, Denies urinary incontinence and Denies urinary urgency Musculoskeletal: Musculoskeletal: Reports no additional musculoskeletal complaints, Denies numbness and Denies tingling Neurologic: Denies dizziness, Denies loss of vision, Denies numbness and Denies tingling Psychiatric: Psychiatric: Reports no additional psychiatric complaints Endocrine: Endocrine: Reports no additional endocrine complaints Hematologic/Lymphatic: Hematologic/Lymphatic: Reports no additional hematologic/lymphatic complaints Allergic/Immunologic: Allergic/Immunologic: Reports no additional allergic/immunologic complaints [facility] Past Medical History Attestation statement: The following information was validated with the patient. Source: old records reviewed and nursing notes reviewed Medical History Anxiety Bipolar affective Cocaine use disorder Depression PCP abuse Polysubstance (including opioids) dependence, daily use PTSD (post-traumatic stress disorder) Schizoaffective disorder, bipolar type Schizophrenia Schizophrenia Suicidal behavior Social History Social History Household Members: Family Housing: Apartment Do you presently have visiting nurse or other home services: No Alcohol intake: current Alcohol intake frequency: a few times a week Alcohol type: beer Patient Tobacco Use Status: Never used Tobacco Cigarette Packs Per Day: 0.25 Cigarettes Per Day: 5.0 Years Smoked: 10 Second Hand Smoke Exposure: No Substance Use Type: Crack/Cocaine and Heroin Advance Directives: No Advance Directives Information Provided: No service: No Sexual orientation: Straight/Heterosexual Physical Exam ED Vital Signs: Vital Signs - 24 hr 05/06/22 09:29 Temperature 98.9 F Pulse Rate 63 Respiratory Rate 14 Blood Pressure 117/68 Pulse Oximetry 98 Oxygen Delivery Method Room Air BMI result Body Mass Index 24.1 Const General: cooperative, no acute distress, alert and awake Nutritional Appearance: well nourished Orientation/consciousness: patient oriented x3 Limitations: no limitations HENMT Head: Yes normal to inspection and Yes atraumatic Ears: hearing grossly normal bilaterally and external ears normal General nose exam: Normal external nose present, no nasal discharge noted and no epistaxis Face and sinus: Yes normal facial exam, No abrasion and No laceration Mouth: Normal oral and palatal mucosa present, no drooling and no muffled voice Eyes General: appearance normal, both eyes and all related structures Periorbital: periorbital findings normal Eyelids: Yes eyelids normal Conjunctivae: conjunctivae normal Pupils: Equal, round and reactive pupils present EOM: EOMs intact bilaterally Neck Neck: Yes normal visual inspection, Yes full ROM and Yes no lymphadenopathy Chest Chest palpation & inspection: normal inspection of the chest Resp Effort & Inspection: normal respiratory effort and able to speak in complete sentences Auscultation: clear to auscultation bilaterally Cardio Rate: regular rate Rhythm: regular rhythm GI Inspection: Yes normal to inspection Palpation (GI): Soft to palpation, not firm, nontender, no guarding and not rigid Neuro General: patient oriented x3 and moves all extremities Cranial nerves: Yes Equal, round and reactive pupils present Cognition (Neuro): normal cognition Motor exam (neuro): 5/5 motor strength present throughout Sensory Exam: Normal double simultaneous stimulation for sensation Coordination: [id number] test normal Extrem General: Yes normal to inspection, Yes full ROM and Yes capillary refill normal Psych Appearance: grossly normal Mental Status: mental status grossly normal Affect: normal affect Attitude: cooperative Thought process: Normal thought process present Thought content: Normal thought content present Insight: Good insight present (Psych) Medications Administered Discontinued Medications Generic Name Dose Route Start Last Admin Trade Name Freq PRN Reason Stop Dose Admin Naloxone HCl 4 mg 05/06/22 09:28 05/06/22 11:08 Naloxone Hcl Nasal Take Home 4 Mg [place] NOSTRILALT 05/06/22 09:29 4 mg ONCE ONE Administration Medical Decision Making Medical Decision Making [facility] Narrative: Patient is a 26 year old assigned male at with a history of PTSD and opioid use disorder presenting to the emergency department today feeling generally unwell. Patient's physical exam was unremarkable. I explained my physical exam findings to the patient. I answered all questions asked by the patient. Patient spoke to the CARE team and declined services. Patient was given narcan to take home. I stressed the importance of the patient taking his medication as prescribed. I stressed the importance of the patient following up with his primary care provider. I stressed the importance of the patient returning to the emergency department immediately if his symptoms were to worsen or if he were to develop any dizziness, shortness of breath, difficulty breathing, chest pain, blurry vision, loss of vision, nausea, vomiting, abdominal pain, fever, chills, back pain, or any other complaints. Patient verbalized agreement and understanding with this treatment plan and discharge. Differential Diagnosis Differential Diagnoses: The differential diagnosis associated with the presentation includes opiate use Lab Data MDM Lab Attestation statement: I reviewed the patient's lab results. Labs: Lab Results 05/06/22 Range/Units 10:03 COVID-19 ([place]) Negative (Negative) COVID-19 Clin Com See Note Discharge Plan Discharge Clinical Impression: Opioid use Patient Disposition: Home, Self-Care Instructions: Opioid Use Disorder (ED) Additional Instructions: Follow up with your primary care provider. Return to the emergency department immediately if your symptoms worsen or if you develop any dizziness, shortness of breath, difficulty breathing, chest pain, blurry vision, loss of vision, nausea, vomiting, abdominal pain, fever, chills, back pain, or any other complaints. Prescriptions: No Action quetiapine [Seroquel] 50 mg tablet 1 - 2 tab PO BEDTIME PRN (Reason: insomnia) haloperidol 10 mg tablet 10 mg PO BEDTIME clonidine HCl 0.1 mg tablet 0.1 mg PO BEDTIME naloxone [Narcan] 4 mg/actuation spray,non-aerosol 4 mg intranasal Q2M PRN (Reason: opioid overdose) Qty: 2 0RF Rx Instructions: spray 1 dose into ONE nostril; alternate nostrils w each dose until help arrives Referrals: [facility] Family Medicine [Provider Group] (Call to establish and follow up with a primary care provider. If you already have a primary care provider, please follow up with them. ) [facility] Primary [facility] [Provider Group] (Call to establish and follow up with a primary care provider. If you already have a primary care provider, please follow up with them. ) [facility] Primary [facility] [Provider Group] (Call to establish and follow up with a primary care provider. If you already have a primary care provider, please follow up with them. ) Interventions: [place]-Suicide Risk Severity Scale Last Done: 05/06/22 11:27 ED Discharge Assessment Last Done: 05/06/22 11:27 Discharge Date/Time: 05/06/22 11:28 Print Language: Colombian
[2022-05-06 09:29] VITALS: BP 117/68; BP 122/78; PULSE 63; PULSE 76; RESP 14; TEMP 37.2; O2SAT 97; O2SAT 98; BMI 24.1
--- NOTE | 2022-05-06 10:04 | MHC.RECOVRN ---
Met with pt in 6H to discuss substance use and treatment options after pt presented to ED feeling unwell after heroin use. Pt sitting on stretcher, awake, alert, difficult to engage in conversation. Very flat affect, slow to respond. Pt changes answers to questions multiple times. Pt reports using 1 bag heroin today, IN. States The girl got it for me. I don't buy it. They just give it to me. Pt reports it was from a different supplier than pt usually uses. Pt reports using heroin intermittently, not daily. Pt reports hx overdoses, 13, 14, 15, 16. Reports hx Suboxone, It helped a little. Pt reports cocaine use, INH, daily, last use yesterday. When asked how much, pt states 7 times. Moments later pt states, I said 7 times, right? Pt reports using $70 daily, then continues to say $90, $95, $100. Pt is interested in ATS at this time, wishes to stay local. Pt informed [facility] availability, t/w will send referral. Provider aware.
[2022-05-06 10:27] LABS: COVID-19 Test Negative (Negative); IDNOW Serial# BCCEAD1C
[2022-05-06] MEDS: Naloxone HCl Nasal TAKE HOME 4 MG SPRAY NOSTRILALT (11:08)
--- NOTE | 2022-05-06 11:39 | MHC.RECOVRN ---
Pt declining [facility] phone intake, requesting to discharge. Discussed harm reduction. Provider aware.
== END 2022-05-06 11:28 | disposition home or self-care (01) ==
PROVIDERS: Physician Assistant Medical; Emergency Provider Student in an Organized Health Care Education/Training Program
DX: F11.20 Opioid dependence, uncomplicated (principal); F43.10 Post-traumatic stress disorder, unspecified; F14.10 Cocaine abuse, uncomplicated; F25.0 Schizoaffective disorder, bipolar type; F29 Unspecified psychosis not due to a substance or known physiological condition; F41.9 Anxiety disorder, unspecified; R45.851 Suicidal ideations; Z87.891 Personal history of nicotine dependence; Z79.899 Other long term (current) drug therapy; Z20.822 Contact with and (suspected) exposure to COVID-19
CPT/HCPCS: 87635; 99283

== ENCOUNTER 2022-05-07 12:02 | Emergency (ER) | payer MEDICARE, MEDICAID, SELFPAY ==
[2022-05-07 12:12] VITALS: BP 131/84; PULSE 71; PULSE 88; RESP 12; TEMP 36.7; O2SAT 100; BMI 24.4
--- NOTE | 2022-05-07 12:38 | HO.SUDE ---
Met with pt in 6Hall after accidental overdose. Pt sitting on stretcher, eyes closed. Easily wakes to voice and is alert. Pt presentation very similar to yesterday, however, pt declines to engage with t/w. Pt not willing to engage to complete SUDE. Continually states I'm good. Pt reports using one bag heroin, IN. Declines ATS, declines resources or referrals. T/w available as needed.
--- NOTE | 2022-05-07 13:12 | ED.OVERDOSE ---
HPI - Overdose General Chief Complaint: Overdose Stated Complaint: ?OVERDOSE Time Seen by Provider: 05/07/22 12:21 Source: EMS Mode of arrival: EMS History of Present Illness HPI Narrative: 26-year-old male brought in by EMS when the patient called them stating that he felt like he was going to overdose after snorting a bag of heroin. Patient denies any suicidal ideation and is declining detox at this time. As per EMS patient was sitting up and talking to them but then became bradycardic with a drop in oxygen to 90% and they administered 0.2 mg of Narcan IV. Related Data Home Medications Medication Instructions Recorded Confirmed clonidine HCl 0.1 mg tablet 0.1 mg PO BEDTIME 10/01/21 10/01/21 haloperidol 10 mg tablet 10 mg PO BEDTIME 10/01/21 10/01/21 quetiapine 50 mg tablet (Seroquel) 1 - 2 tab PO BEDTIME PRN insomnia 10/01/21 10/01/21 Previous Rx's Medication Instructions Recorded naloxone 4 mg/actuation nasal 4 mg intranasal Q2M PRN opioid 10/23/21 spray (Narcan) overdose #2 ea Allergies Allergy/AdvReac Type Severity Reaction Status Date / Time morphine [MORPHINE] AdvReac Unknown NAUSEA Verified 09/13/21 09:13 Review of Systems Review of Systems: Pertinent positives and negatives as stated in HPI. PMF Past Medical History Source: nursing notes reviewed Medical History Anxiety Bipolar affective Cocaine use disorder Depression PCP abuse Polysubstance (including opioids) dependence, daily use PTSD (post-traumatic stress disorder) Schizoaffective disorder, bipolar type Schizophrenia Schizophrenia Suicidal behavior Social History Social History Household Members: Family Housing: Apartment Do you presently have visiting nurse or other home services: No Alcohol intake: current Alcohol intake frequency: a few times a week Alcohol type: beer Patient Tobacco Use Status: Never used Tobacco Cigarette Packs Per Day: 0.25 Cigarettes Per Day: 5.0 Years Smoked: 10 Second Hand Smoke Exposure: No Substance Use Type: Crack/Cocaine and Heroin Advance Directives: No Advance Directives Information Provided: No service: No Sexual orientation: Straight/Heterosexual Physical Exam Vital Signs: Vital Signs: Last Vital Signs Temp 98.1 F 05/07/22 12:12 Pulse 71 05/07/22 12:12 Resp 12 05/07/22 12:12 BP 131/84 05/07/22 12:12 Pulse Ox 100 05/07/22 12:12 O2 Del Method 05/07/22 12:12 BMI result Body Mass Index 24.4 VITAL SIGNS: Reviewed. GENERAL: Well developed, well nourished, in no acute distress. HEAD: Normocephalic/atraumatic EYES: PERRLA, EOMI EARS: Ext canals without abnormality OROPHARYNX: no oral lesions noted, posterior pharynx clear LUNGS: Normal breath sounds. No adventitious sounds or accessory muscle use. SpO2<100> CARDIOVASCULAR: Regular rate and rhythm without noted murmurs ABDOMEN: Soft, non-tender, non-distended with bowel sounds. MUSCULOSKELETAL: No tenderness, deformities, or effusions noted on gross inspection. EXTREMITIES: No cyanosis, clubbing or edema. SKIN: Inspection of the skin reveals no rashes NEUROLOGIC: Drowsy but easily aroused and oriented x 3. Medical Decision Making Medical Decision Making MDM Narrative: This is a 26-year-old male who is being seen for acute overdose, he denies any suicidal ideation and otherwise is declining any interest in detox at this time. He is tolerating oral intake and is otherwise discharged home in stable condition with home Narcan. Discharge Plan Discharge Clinical Impression: Drug overdose, Substance use disorder Patient Disposition: Home, Self-Care Instructions: Adult Overdose (ED), Polysubstance Abuse (ED) Additional Instructions: 1. Stop using drugs, you can come back here at any time so that we can help point you in touch with outpatient and/or inpatient resources. Prescriptions: No Action quetiapine [Seroquel] 50 mg tablet 1 - 2 tab PO BEDTIME PRN (Reason: insomnia) haloperidol 10 mg tablet 10 mg PO BEDTIME clonidine HCl 0.1 mg tablet 0.1 mg PO BEDTIME naloxone [Narcan] 4 mg/actuation spray,non-aerosol 4 mg intranasal Q2M PRN (Reason: opioid overdose) Qty: 2 0RF Rx Instructions: spray 1 dose into ONE nostril; alternate nostrils w each dose until help arrives Interventions: [place]-Suicide Risk Severity Scale Last Done: 05/07/22 12:18
[2022-05-07] MEDS: Naloxone HCl Nasal TAKE HOME 4 MG SPRAY NOSTRILALT (15:27)
== END 2022-05-07 15:49 | disposition home or self-care (01) ==
PROVIDERS: Emergency Provider Student in an Organized Health Care Education/Training Program
DX: T40.1X1A Poisoning by heroin, accidental (unintentional), initial encounter (principal); Y92.9 Unspecified place or not applicable; F11.20 Opioid dependence, uncomplicated; Z71.51 Drug abuse counseling and surveillance of drug abuser
CPT/HCPCS: 99284

== ENCOUNTER 2022-05-16 11:02 | Emergency (ER) | payer MEDICARE, MEDICAID, SELFPAY ==
[2022-05-16 11:11] VITALS: BP 149/86; BP 155/115; PULSE 84; PULSE 85; RESP 16; O2SAT 100; O2SAT 98; BMI 25.0
--- NOTE | 2022-05-16 13:19 | MHC.RECOVRN ---
Attempted to meet with pt to conduct SUDE. Pt sleeping, does not wake to voice. Respirations even and unlabored. RN aware.
--- NOTE | 2022-05-16 13:42 | ED_ITS ---
HPI - General Adult General Chief complaint: Overdose Stated complaint: OD Time Seen by Provider: 05/16/22 11:52 Source: patient Mode of arrival: ambulatory Limitations: no limitations History of Present Illness HPI narrative: 26-year-old male presents to ED for accidental heroin overdose. . Patient states he was not suicidal or homicidal. Patient admits to history of substance abuse. Patient presently asymptomatic. Related Data Home Medications Medication Instructions Recorded Confirmed clonidine HCl 0.1 mg tablet 0.1 mg PO BEDTIME 10/01/21 10/01/21 haloperidol 10 mg tablet 10 mg PO BEDTIME 10/01/21 10/01/21 quetiapine 50 mg tablet (Seroquel) 1 - 2 tab PO BEDTIME PRN insomnia 10/01/21 10/01/21 Previous Rx's Medication Instructions Recorded naloxone 4 mg/actuation nasal 4 mg intranasal Q2M PRN opioid 10/23/21 spray (Narcan) overdose #2 ea Allergies Allergy/AdvReac Type Severity Reaction Status Date / Time morphine [MORPHINE] AdvReac Unknown NAUSEA Verified 09/13/21 09:13 Review of Systems Review of Systems: Accidental overdose Yes all other systems are reviewed and are negative [facility] Past Medical History Medical History Anxiety Bipolar affective Cocaine use disorder Depression PCP abuse Polysubstance (including opioids) dependence, daily use PTSD (post-traumatic stress disorder) Schizoaffective disorder, bipolar type Schizophrenia Schizophrenia Suicidal behavior Social History Social History Household Members: Family Housing: Apartment Do you presently have visiting nurse or other home services: No Alcohol intake: current Alcohol intake frequency: a few times a week Alcohol type: beer Patient Tobacco Use Status: Never used Tobacco Cigarette Packs Per Day: 0.25 Cigarettes Per Day: 5.0 Years Smoked: 10 Second Hand Smoke Exposure: No Substance Use Type: Crack/Cocaine and Heroin Advance Directives: No Advance Directives Information Provided: No service: No Sexual orientation: Straight/Heterosexual Physical Exam ED Vital Signs: Vital Signs - 24 hr 05/16/22 13:55 Temperature 100.6 F H Pulse Rate 49 L Respiratory Rate 16 Blood Pressure 107/62 Pulse Oximetry 98 Oxygen Delivery Method Room Air BMI result Body Mass Index 25.0 Const General: cooperative, healthy appearing, comfortable, no acute distress, well developed, alert, awake and Physically active Orientation/consciousness: oriented to person, oriented to place, oriented to time and patient oriented x3 [facility] Head: Yes normal to inspection, Yes No palpable skull fracture present, Yes normocephalic, Yes atraumatic and No abrasion Eyes General: appearance normal, both eyes and all related structures Neck Neck: Yes normal visual inspection, Yes full ROM, Yes no lymphadenopathy, Yes no meningeal signs, Yes trachea midline, Yes supple, No anterior neck swelling and No tender Chest Chest palpation & inspection: normal inspection of the chest and normal palpation of entire chest wall Resp Effort & Inspection: normal respiratory effort and able to speak in complete sentences Auscultation: clear to auscultation bilaterally Cardio Jugular venous distension: no JVD Heart sounds: S1 normal heart sound present and S2 normal heart sound present GI Inspection: Yes normal to inspection and No abdominal wall ecchymosis Palpation (GI): not firm, nontender, no guarding and not rigid General: No CVA tenderness and Yes no CVA tenderness Back/Spine/Pelvis Back: no CVA tenderness, No CVA tenderness and No back tenderness Skin General skin exam: no rashes or lesions noted and elasticity normal Neuro General: oriented to person, oriented to place, oriented to time, patient oriented x3, gait normal, tone normal, no meningeal signs, CN's II-XI intact bilaterally and normal sensation to monofilament Extrem General: Yes normal to inspection and Yes full ROM Psych Appearance: grossly normal, well kempt and not disheveled Course Course Course Narrative: patient alert oriented x3 and sleeping comfortably in bed. Vital signs being monitored. SCD consult placed. Reevaluation(s) Reevaluation #1: Labs were drawn. recovery auditor Noelle evaluated patient and patient does not want detox. care team consulted Maye evaluated patient no need for any psych intervention and patient also deos not want any psych intervention. patient has fever during visit. Patient denies any suicidal homicidal ideation. Patient positive COVID. Patient denies any suicide or homicidal ideation. m ore paranoid failure was found patient bed. Patient discharged with Narcan take home. Time: 17:32 Medical Decision Making Medical Decision Making MDM Narrative: heroin overdose. Positive COVID. Patient did not want any psych or detox evaluate. Patient labs normal Admission/Observation No need for admission Lab Data 05/16/22 16:11 05/16/22 16:11 Labs: Lab Results 05/16/22 05/16/22 05/16/22 Range/Units 16:11 16:11 16:11 WBC 11.1 H (4.8-10.8) X10*3/uL RBC 4.96 (4.60-5.80) X10*6/uL Hgb 14.6 (14.0-18.0) g/dl Hct 43.6 (42.0-52.0) % MCV 87.9 (80.0-98.0) fL MCH 29.4 (27.0-33.0) pg MCHC 33.5 (31.0-36.0) g/dl RDW 12.1 (11.0-16.0) % Plt Count 264 (160-400) X10*3/uL MPV 10.3 (9.4-12.4) fL Immature Gran % (Auto) 0.2 (0.0-0.4) % Neut % (Auto) 79.4 H (45-73) % Lymph % (Auto) 10.9 L (20-40) % [place] % (Auto) 8.4 (2-11) % Eos % (Auto) 0.7 (0-4) % Baso % (Auto) 0.4 (0-2) % Lymph # (Auto) 1.2 (1.2-4.9) X10*3/uL [place] # (Auto) 0.9 (0.1-1.2) X10*3/uL Eos # (Auto) 0.1 (0.0-0.4) X10*3/uL Baso # (Auto) 0.0 (0.0-0.2) X10*3/uL Abs Immat Gran (auto) 0.02 (0.00-0.03) X10*3/uL Absolute Neuts (auto) 8.8 H (2.0-8.3) x10*3/uL Absolute Nucleated RBC 0.000 (0.0-0.012) X10*3/uL Nucleated RBC % (auto) 0.0 (0.0-0.2) /100WBC Sodium 137 (135-145) mmol/L Potassium 4.7 (3.3-5.1) mmol/L Chloride 102 (96-108) mmol/L Carbon Dioxide 25 (22-29) mmol/L Anion Gap 15 (12-20) BUN 16 (9-16) mg/dL Creatinine 0.86 (0.5-1.4) mg/dL Estim Creat Clear Calc 120.6 Estimated GFR > 60 Random Glucose 111 (60-115) mg/dL Calcium 9.9 (8.4-10.2) mg/dL Total Bilirubin 0.8 (0.0-1.0) mg/dL AST 38 H (5-37) U/L ALT 21 (0-40) U/L Alkaline Phosphatase 86 (39-117) U/L Total Protein 7.1 (6.5-8.0) g/dL Albumin 4.6 (3.5-5.0) g/dL Ethyl Alcohol < 10 mg/dL Influenza Type A (PCR) NEGATIVE (Negative) Influenza Type B (PCR) NEGATIVE (Negative) RSV RNA Qual (PCR) NEGATIVE (Negative) SARS-CoV-2 RNA (RT-PCR) POSITIVE A (Negative) Discharge Plan Discharge Clinical Impression: Drug overdose, Polysubstance (including opioids) dependence, daily use, COVID- 19 Patient Disposition: Home, Self-Care Instructions: Adult Overdose (ED), Opioid Use Disorder (ED), COVID-19 (Coronavirus Disease 2019) (ED) Additional Instructions: return to the ED for any concerning symptoms. Return to ED for any physical complaints or suicidal/homicidal ideation. Prescriptions: No Action quetiapine [Seroquel] 50 mg tablet 1 - 2 tab PO BEDTIME PRN (Reason: insomnia) haloperidol 10 mg tablet 10 mg PO BEDTIME clonidine HCl 0.1 mg tablet 0.1 mg PO BEDTIME naloxone [Narcan] 4 mg/actuation spray,non-aerosol 4 mg intranasal Q2M PRN (Reason: opioid overdose) Qty: 2 0RF Rx Instructions: spray 1 dose into ONE nostril; alternate nostrils w each dose until help arrives Interventions: [place]-Suicide Risk Severity Scale Last Done: 05/16/22 17:56 ED Discharge Assessment Last Done: 05/16/22 18:07 Discharge Date/Time: 05/16/22 18:08 Print Language: Swazi
[2022-05-16 13:55] VITALS: BP 107/62; PULSE 49; RESP 16; TEMP 38.1; O2SAT 98
--- NOTE | 2022-05-16 15:35 | HO.SUDE ---
Met with pt in 22H to attempt SUDE. Pt sitting in stretcher, eyes closed, wakes to voice, difficult to engage. Eyes closed through whole conversation. Pt reports using one bag heroin, [place], which resulted in overdose. Asked pt if he would be interested in ATS, pt continually states I want to stay here. Pt is not interested in discussing substance use, dismissive of ATS. Again states I want to stay here. Pt educated regarding ED and medical necessity, pt states I'm schizophrenic. Reports having a psychiatrist and being prescribed medications. Unsure when he last took his medications. Pt reports AH that tell me to do bad things. Examples include pee on the floor and talk bad to people. Pt denies SI/HI. Not interested in recovery support or resources at this time. Discussed with ED provider as well as CARE Team.
--- NOTE | 2022-05-16 15:39 | MHC.RECOVSUP ---
? Reason for consult: Recovery Support o Current location: ED22H? o Identified substance use concern: ? - Overdose ? Additional information:?Patient consultation with Noelle Reynoso after initial contact. Patient was in and out of a sleep state and wasn't able to confirm whether or not he wanted detox. Patient was clearly still displaying the effects from his overdose. Patient did state he was experiencing voices in his head telling him to do bad things. After consult, Noelle will connect with provider to determine the next steps moving forward. As far as recovery support, patient isn't stable enough to have any conversations at this time.
[2022-05-16 16:18] LABS: MANUAL DIFF FLAG NO
[2022-05-16 16:19] LABS: Basophils Percent Auto 0.4 % (0-2); Eosinophils Absolute Auto 0.1 X10*3/uL (0.0-0.4); Eosinophils Percent Auto 0.7 % (0-4); Hematocrit 43.6 % (42.0-52.0); Hemoglobin 14.6 g/dl (14.0-18.0); Imm Gran Abs Auto 0.02 X10*3/uL (0.00-0.03); Imm Gran Pct Auto 0.2 % (0.0-0.4); Lymphocytes Absolute Auto 1.2 X10*3/uL (1.2-4.9); Lymphocytes Percent Auto 10.9 % (20-40); Mean Corpuscular HGB Conc 33.5 g/dl (31.0-36.0); Mean Corpuscular Hemoglobin 29.4 pg (27.0-33.0); Mean Corpuscular Volume 87.9 fL (80.0-98.0); Mean Platelet Volume 10.3 fL (9.4-12.4); Monocytes Absolute Auto 0.9 X10*3/uL (0.1-1.2); Monocytes Percent Auto 8.4 % (2-11); Neutrophils Absolute Auto 8.8 x10*3/uL (2.0-8.3); Neutrophils Percent Auto 79.4 % (45-73); Platelet Count 264 X10*3/uL (160-400); Red Blood Count 4.96 X10*6/uL (4.60-5.80); Red Cell Distribution Width 12.1 % (11.0-16.0); White Blood Count 11.1 X10*3/uL (4.8-10.8)
[2022-05-16 16:38] LABS: Alanine Aminotransferase 21 U/L (0-40); Albumin Level 4.6 g/dL (3.5-5.0); Alkaline Phosphatase 86 U/L (39-117); Anion Gap 15 (12-20); Aspartate Amino Transferase 38 U/L (5-37); Bilirubin Total 0.8 mg/dL (0.0-1.0); Blood Urea Nitrogen 16 mg/dL (9-16); Calcium 9.9 mg/dL (8.4-10.2); Carbon Dioxide 25 mmol/L (22-29); Chloride 102 mmol/L (96-108); Creatinine Clr Calc Pharmacy 120.6; Estimated Glomerular Filt Rate > 60; Ethanol < 10 mg/dL; Glucose Random 111 mg/dL (60-115); Potassium 4.7 mmol/L (3.3-5.1); Sodium 137 mmol/L (135-145); Total Protein 7.1 g/dL (6.5-8.0)
[2022-05-16 16:58] LABS: Influenza A PCR NEGATIVE (Negative); Influenza B PCR NEGATIVE (Negative); Resp Syncy Virus RNA Qual PCR NEGATIVE (Negative); SARS COV2 PCR INHOUSE POSITIVE (Negative)
--- NOTE | 2022-05-16 16:59 | MHC.CARE ---
RISK ASSESSMENT: CARE team consulted with recovery room nurse re: pt who arrived to the ED secondary to an accidental opiate overdose. Pt declined resources but stated that he wanted to stay in the hospital and endorsed hearing voices telling him to do bad things, such as urinate on the floor. Pt is a 26 year old single, , cisgender male who is known to the CARE team from previous ED visits and hospitalizations. This marine underwriter met with the pt in the main ED 22H bed. Pt was laying on the stretcher with his eyes closed and opened his eyes briefly when this marine underwriter spoke to him. Pt continued to decline recovery resources, not right now, I'm good, and reported that he feels safe going home but that he is still in physical pain and wants to go through the process at the hospital. This marine underwriter explained to the pt that a ride can be ordered to bring him home and he can continue to rest there in a quieter environment than the hallway of the emergency department. Pt raised his voice, stating that he wants to stay here until he's ready to leave. ED provider and charge nurse updated re: assessment and recommendation for discharge.
== END 2022-05-16 18:08 | disposition home or self-care (01) ==
PROVIDERS: Physician Assistant; Emergency Provider Emergency Medicine Emergency Medical Services
DX: U07.1 COVID-19 (principal); T40.1X1A Poisoning by heroin, accidental (unintentional), initial encounter; F11.20 Opioid dependence, uncomplicated; F17.210 Nicotine dependence, cigarettes, uncomplicated; Z71.6 Tobacco abuse counseling; Z79.899 Other long term (current) drug therapy
CPT/HCPCS: 0241U; 80053; 82077; 85025; 99283

== ENCOUNTER 2022-05-17 10:07 | Emergency (ER) | payer MEDICARE, MEDICAID, SELFPAY ==
--- NOTE | 2022-05-17 11:29 | ED_ITS ---
HPI - General Adult General Chief complaint: ETOH/Substance Use Stated complaint: HEROIN WITHDRAWAL,NAUSEA, FROM COURT Time Seen by Provider: 05/17/22 11:03 Source: patient Mode of arrival: ambulatory Limitations: no limitations History of Present Illness HPI narrative: Patient was in court and states he started have her on withdrawal and wants to be seen and evaluated in the ED. patient presently is asymptomatic and would like to be discharged. Patient denies any suicidal/homicidal ideation, or any physical complaints Related Data Home Medications Medication Instructions Recorded Confirmed clonidine HCl 0.1 mg tablet 0.1 mg PO BEDTIME 10/01/21 10/01/21 haloperidol 10 mg tablet 10 mg PO BEDTIME 10/01/21 10/01/21 quetiapine 50 mg tablet (Seroquel) 1 - 2 tab PO BEDTIME PRN insomnia 10/01/21 10/01/21 Previous Rx's Medication Instructions Recorded naloxone 4 mg/actuation nasal 4 mg intranasal Q2M PRN opioid 10/23/21 spray (Narcan) overdose #2 ea Allergies Allergy/AdvReac Type Severity Reaction Status Date / Time morphine [MORPHINE] AdvReac Unknown NAUSEA Verified 09/13/21 09:13 Review of Systems Review of Systems: Resolved withdrawal symptoms like to be discharged PMF[facility] Past Medical History Medical History Anxiety Bipolar affective Cocaine use disorder Depression PCP abuse Polysubstance (including opioids) dependence, daily use PTSD (post-traumatic stress disorder) Schizoaffective disorder, bipolar type Schizophrenia Schizophrenia Suicidal behavior Social History Social History Household Members: Family Housing: Apartment Do you presently have visiting nurse or other home services: No Alcohol intake: current Alcohol intake frequency: a few times a week Alcohol type: beer Patient Tobacco Use Status: Never used Tobacco Cigarette Packs Per Day: 0.25 Cigarettes Per Day: 5.0 Years Smoked: 10 Second Hand Smoke Exposure: No Substance Use Type: Crack/Cocaine and Heroin Advance Directives: No Advance Directives Information Provided: No service: No Sexual orientation: Straight/Heterosexual Physical Exam ED Vital Signs: Vital Signs - 24 hr 05/17/22 11:37 Temperature 98.7 F Pulse Rate 53 Respiratory Rate 18 Blood Pressure 111/65 Pulse Oximetry 98 Oxygen Delivery Method Room Air Const General: cooperative, healthy appearing, comfortable, no acute distress, well developed, alert, awake and Physically active Orientation/consciousness: oriented to person, oriented to place and patient oriented x3 [facility] Head: Yes normal to inspection, Yes No palpable skull fracture present, Yes normocephalic, Yes atraumatic and No abrasion Eyes General: appearance normal, both eyes and all related structures Neck Neck: Yes normal visual inspection, Yes full ROM, Yes no lymphadenopathy, Yes no meningeal signs, Yes trachea midline, Yes supple, No anterior neck swelling and No tender Chest Chest palpation & inspection: normal inspection of the chest and normal palpation of entire chest wall Resp Effort & Inspection: normal respiratory effort and able to speak in complete sentences Auscultation: clear to auscultation bilaterally Cardio Jugular venous distension: no JVD Heart sounds: S1 normal heart sound present and S2 normal heart sound present GI Inspection: Yes normal to inspection and No abdominal wall ecchymosis Palpation (GI): Soft to palpation, not firm, nontender, no guarding and not rigid General: No CVA tenderness and Yes no CVA tenderness Back/Spine/Pelvis Back: no CVA tenderness, No CVA tenderness and No back tenderness Skin General skin exam: no rashes or lesions noted and elasticity normal Neuro Other: Negative for any neuro deficits. General: oriented to person, oriented to place, patient oriented x3, gait normal, tone normal, moves all extremities, Normal light touch and pain sensation, no meningeal signs, no focal motor deficits, CN's II-XI intact bilaterally and normal sensation to monofilament Extrem General: Yes normal to inspection and Yes full ROM Psych Appearance: grossly normal, well kempt and not disheveled Course Course Course Narrative: Patient was to be discharged. Reevaluation(s) Reevaluation #1: Vital signs stable. Patient is not in any distress. No further evaluation needed Time: 19:02 Medical Decision Making Medical Decision Making [facility] Narrative: Referred to course Discharge Plan Discharge Clinical Impression: Opioid dependence Patient Disposition: Home, Self-Care Instructions: Opioid Use Disorder (ED) Additional Instructions: Return to the ED immediately for any suicidal/homicidal ideation, a uditory/visual hallucinations, any physical complaints, or any other concerning symptoms. Please follow-up with [facility] if interested Prescriptions: No Action quetiapine [Seroquel] 50 mg tablet 1 - 2 tab PO BEDTIME PRN (Reason: insomnia) haloperidol 10 mg tablet 10 mg PO BEDTIME clonidine HCl 0.1 mg tablet 0.1 mg PO BEDTIME naloxone [Narcan] 4 mg/actuation spray,non-aerosol 4 mg intranasal Q2M PRN (Reason: opioid overdose) Qty: 2 0RF Rx Instructions: spray 1 dose into ONE nostril; alternate nostrils w each dose until help arrives Interventions: [place]-Suicide Risk Severity Scale Last Done: 05/17/22 12:04 ED Discharge Assessment Last Done: 05/17/22 12:03 Discharge Date/Time: 05/17/22 12:04 Print Language: Cuban
[2022-05-17 11:37] VITALS: BP 111/65; PULSE 53; RESP 18; TEMP 37.1; O2SAT 98
== END 2022-05-17 12:04 | disposition home or self-care (01) ==
PROVIDERS: Emergency Provider Student in an Organized Health Care Education/Training Program
DX: F11.20 Opioid dependence, uncomplicated (principal); F14.10 Cocaine abuse, uncomplicated; F43.10 Post-traumatic stress disorder, unspecified; F25.0 Schizoaffective disorder, bipolar type; F29 Unspecified psychosis not due to a substance or known physiological condition; F17.210 Nicotine dependence, cigarettes, uncomplicated; Z79.899 Other long term (current) drug therapy
CPT/HCPCS: 99283

== ENCOUNTER 2022-08-26 15:38 | Emergency (ER) | payer MEDICARE, MEDICAID, SELFPAY ==
[2022-08-26 15:49] VITALS: BP 121/71; BP 139/87; PULSE 114; PULSE 95; RESP 16; TEMP 37; O2SAT 92; O2SAT 97; BMI 24.4
--- NOTE | 2022-08-26 15:58 | ED.OVERDOSE ---
HPI - Overdose General Chief Complaint: Overdose Stated Complaint: Overdose Time Seen by Provider: 08/26/22 15:58 History of Present Illness HPI Narrative: Patient admits to using heroin. Subsequently was found passed out. Bystander give patient 12 mg of Narcan. Patient is given an additional 4 mg of Narcan by PD. Woke up on EMS arrival. Sent in for further evaluation. Patient used the heroin for recreational reasons. No suicidal homicidal ideation. Patient does not want detox. Currently has no complaints Related Data Home Medications Medication Instructions Recorded Confirmed clonidine HCl 0.1 mg tablet 0.1 mg PO BEDTIME 10/01/21 10/01/21 haloperidol 10 mg tablet 10 mg PO BEDTIME 10/01/21 10/01/21 quetiapine 50 mg tablet (Seroquel) 1 - 2 tab PO BEDTIME PRN insomnia 10/01/21 10/01/21 Previous Rx's Medication Instructions Recorded naloxone 4 mg/actuation nasal 4 mg intranasal Q2M PRN opioid 10/23/21 spray (Narcan) overdose #2 ea Allergies Allergy/AdvReac Type Severity Reaction Status Date / Time morphine [MORPHINE] AdvReac Unknown NAUSEA Verified 09/13/21 09:13 Review of Systems Review of Systems: No fever no chills no chest pain or shortness breath no systemic complaints Yes all other systems are reviewed and are negative PMFSH Past Medical History Attestation statement: The following information was validated with the patient. Medical History Anxiety Bipolar affective Cocaine use disorder Depression PCP abuse Polysubstance (including opioids) dependence, daily use PTSD (post-traumatic stress disorder) Schizoaffective disorder, bipolar type Schizophrenia Schizophrenia Suicidal behavior Social History Social History Household Members: Family Housing: Apartment Do you presently have visiting nurse or other home services: No Alcohol intake: current Alcohol intake frequency: a few times a week Alcohol type: beer Patient Tobacco Use Status: Never used Tobacco Cigarette Packs Per Day: 0.25 Cigarettes Per Day: 5.0 Years Smoked: 10 Smoked in Last 30 Days: Yes Second Hand Smoke Exposure: No Use of substances other than those prescribed or required for medical reasons: Yes Substance Use Type: Heroin and Marijuana Advance Directives: No Advance Directives Information Provided: No service: No Sexual orientation: Straight/Heterosexual Physical Exam Vital Signs: Vital Signs: Last Vital Signs Temp 98.6 F 08/26/22 15:49 Pulse 71 08/26/22 17:02 Resp 16 08/26/22 17:02 BP 101/55 L 08/26/22 17:02 Pulse Ox 96 08/26/22 17:02 O2 Del Method Room Air 08/26/22 17:02 BMI result Body Mass Index 24.4 Appearance: Alert. Oriented X3. No acute distress. Eyes: Pupils equal, round and reactive to light. ENT: Pharynx normal. Neck: Normal inspection. Neck supple. No lymph nodes noted. No crepitus CVS: Normal heart rate and rhythm. Pulses normal. Normal S1 and S2 Respiratory: No respiratory distress. Breath sounds normal. No Wheezing. No rales Abdomen: Soft and nontender. No rigidity. No distention. good BS x4 Skin: Skin warm and dry. Normal skin color. Normal skin turgor. Extremities: No lower extremity edema. Neurovascular intact to all extremities. No Lacerations. No Rash Neuro: Oriented X 3. No motor deficit. No sensory deficit. Moving all extermities. No slurred speech Medical Decision Making Medical Decision Making MDM Narrative: Patient was given up to 16 mg of Narcan will come up. Admits to using heroin. He did have for recreation reasons. No suicidal attempt. Will monitor patient in the emergency department for 2 hours. In stable condition. Patient did not want detox at this time. His O2 sats normal there is no evidence for aspiration is in no distress offered food Patient monitored in the emergency department for 2 hours. No distress will discharge home. Still did not want detox. Differential Diagnosis Differential Diagnoses: The differential diagnosis associated with the presentation includes Hypoxia, heroin abuse, suicidal ideation Chronic Conditions Polysubstance abuse, PTSD, schizoaffective Discharge Plan Discharge Clinical Impression: Drug overdose, Narcotic overdose Patient Disposition: Home, Self-Care Instructions: Narcotic Safety (ED), Opioid Use Disorder (ED) Additional Instructions: Please stop using heroin. He almost today. Please go to detox when you are ready. Prescriptions: No Action quetiapine [Seroquel] 50 mg tablet 1 - 2 tab PO BEDTIME PRN (Reason: insomnia) haloperidol 10 mg tablet 10 mg PO BEDTIME clonidine HCl 0.1 mg tablet 0.1 mg PO BEDTIME naloxone [Narcan] 4 mg/actuation spray,non-aerosol 4 mg intranasal Q2M PRN (Reason: opioid overdose) Qty: 2 0RF Rx Instructions: spray 1 dose into ONE nostril; alternate nostrils w each dose until help arrives Referrals: Physician,None [Primary Care Provider] - 08/30/22 (Please go to detox.)
--- NOTE | 2022-08-26 16:01 | PC.NURSE ---
pt changed into [facility] cedric mathew in
[2022-08-26 17:02] VITALS: BP 101/55; PULSE 71; RESP 16; O2SAT 96
[2022-08-26] MEDS: Naloxone HCl Nasal TAKE HOME 4 MG SPRAY NOSTRILALT (19:07)
== END 2022-08-26 19:08 | disposition home or self-care (01) ==
PROVIDERS: Emergency Provider Emergency Medicine Emergency Medical Services
DX: R40.20 Unspecified coma (principal); T40.1X1A Poisoning by heroin, accidental (unintentional), initial encounter; Y92.410 Unspecified street and highway as the place of occurrence of the external cause; F19.20 Other psychoactive substance dependence, uncomplicated; F17.210 Nicotine dependence, cigarettes, uncomplicated; Z79.899 Other long term (current) drug therapy
CPT/HCPCS: 99283; 99284

== ENCOUNTER 2022-09-10 01:00 | Emergency (ER) | payer MEDICARE, MEDICAID, SELFPAY ==
[2022-09-10 01:15] VITALS: BP 119/86; PULSE 107; RESP 14; TEMP 36.8; O2SAT 98; BMI 26.1
--- NOTE | 2022-09-10 01:21 | PC.NURSE ---
pt a&o, able to answer question appropriately, pt changed over into hospital, pt placed on tele-montor. pt denies any SI or HI, Will continue to monitor.
--- NOTE | 2022-09-10 01:22 | MHC.EDTECH ---
pt changed over into hospital attire w/ security. pt's belongings stored in [place].
--- NOTE | 2022-09-10 01:45 | ED.GENADULT ---
HPI - General Adult General Chief complaint: ETOH/Substance Use Stated complaint: Overdose Time Seen by Provider: 09/10/22 01:13 Source: patient, RN notes reviewed and old records reviewed Mode of arrival: EMS Limitations: no limitations History of Present Illness HPI narrative: 27-year-old male presents for evaluation of I overdosed. Patient was apparently found unresponsive on the side of the street please administered 8 mg of nasal Narcan when EMS arrived the patient was awake, and oriented he admits to using 1 bag of heroin. He reports that he started and he never injects he denies any coingestion including alcohol and cocaine patient states that he was not trying to harm himself in any way he has no complaints at this time he states I feel great. Related Data Home Medications Medication Instructions Recorded Confirmed clonidine HCl 0.1 mg tablet 0.1 mg PO BEDTIME 10/01/21 10/01/21 haloperidol 10 mg tablet 10 mg PO BEDTIME 10/01/21 10/01/21 quetiapine 50 mg tablet (Seroquel) 1 - 2 tab PO BEDTIME PRN insomnia 10/01/21 10/01/21 Previous Rx's Medication Instructions Recorded naloxone 4 mg/actuation nasal 4 mg intranasal Q2M PRN opioid 10/23/21 spray (Narcan) overdose #2 ea Allergies Allergy/AdvReac Type Severity Reaction Status Date / Time morphine [MORPHINE] AdvReac Unknown NAUSEA Verified 09/13/21 09:13 Review of Systems Constitutional: Constitutional: Reports as per HPI, Denies chills, Denies fatigue, Denies fever(s) and Denies headache(s) ENT: Denies headache(s) Cardiovascular: Cardiovascular: Denies chest pain and Denies dyspnea Respiratory: Respiratory: Denies cough and Denies dyspnea Gastrointestinal: Gastrointestinal: Denies abdominal pain, Denies constipation and Denies vomiting Genitourinary: Genitourinary: Denies difficulty urinating and Denies dysuria Neurologic: Denies headache(s) and Denies focal weakness Endocrine: Endocrine: Denies fatigue PMFSH Past Medical History Medical History Anxiety Bipolar affective Cocaine use disorder Depression PCP abuse Polysubstance (including opioids) dependence, daily use PTSD (post-traumatic stress disorder) Schizoaffective disorder, bipolar type Schizophrenia Schizophrenia Suicidal behavior Social History Social History Household Members: Family Housing: Apartment Do you presently have visiting nurse or other home services: No Alcohol intake: current Alcohol intake frequency: a few times a week Alcohol type: beer Patient Tobacco Use Status: Never used Tobacco Cigarette Packs Per Day: 0.25 Cigarettes Per Day: 5.0 Years Smoked: 10 Second Hand Smoke Exposure: No Substance Use Type: Heroin and Marijuana service: No Sexual orientation: Straight/Heterosexual Physical Exam ED Vital Signs: Vital Signs - 24 hr 09/10/22 01:15 Temperature 98.3 F Pulse Rate 107 H Respiratory Rate 14 Blood Pressure 119/86 Pulse Oximetry 98 Oxygen Delivery Method Room Air BMI result Body Mass Index 26.1 Const General: healthy appearing, comfortable, no acute distress, alert and awake Nutritional Appearance: well nourished Orientation/consciousness: patient oriented x3 HENMT Other: Patient is well-appearing, no evidence of trauma Head: Yes normocephalic and Yes atraumatic Eyes Eyelids: Yes eyelids normal Conjunctivae: conjunctivae normal Sclerae: sclerae normal Corneas: corneas normal Pupils: Equal, round and reactive pupils present EOM: EOMs intact bilaterally Neck Neck: Yes full ROM Resp Effort & Inspection: normal respiratory effort, able to speak in complete sentences, no audible wheezes and not labored Auscultation: clear to auscultation bilaterally Cardio Rate: regular rate Rhythm: regular rhythm GI Inspection: No distended Palpation (GI): Soft to palpation, not firm, nontender, no guarding and not rigid Auscultation: normoactive bowel sounds Skin General skin exam: no rashes or lesions noted and elasticity normal Neuro General: patient oriented x3 Cranial nerves: Yes CN's II-XII intact bilaterally, Yes Equal, round and reactive pupils present and Yes Bilaterally intact EOM present Cognition (Neuro): normal cognition Extrem Other: Moving all extremities well without any obvious deformities Medical Decision Making Medical Decision Making MDM Narrative: 27-year-old male presents for evaluation of suspected drug overdose. The patient admits to using heroin only. he is awake, alert oriented. no signs of trauma and he has no complaints. I do not see any indication for further workup at this time as long as the patient remains awake, oriented with stable vitals. He will be observed in the ER until clinically sober. I offered the patient detox resources and Sude evaluation and the patient declines Differential Diagnosis opiate abuse Drug overdose Polysubstance abuse heroin abuse Discharge Plan Discharge Clinical Impression: Accidental heroin overdose Patient Disposition: Home, Self-Care Instructions: Polysubstance Abuse (ED) Additional Instructions: avoid illicit substance abuse. you declined detox resources today you may return at any time if you are interested in detox follow-up with your primary doctor Prescriptions: No Action quetiapine [Seroquel] 50 mg tablet 1 - 2 tab PO BEDTIME PRN (Reason: insomnia) haloperidol 10 mg tablet 10 mg PO BEDTIME clonidine HCl 0.1 mg tablet 0.1 mg PO BEDTIME naloxone [Narcan] 4 mg/actuation spray,non-aerosol 4 mg intranasal Q2M PRN (Reason: opioid overdose) Qty: 2 0RF Rx Instructions: spray 1 dose into ONE nostril; alternate nostrils w each dose until help arrives
[2022-09-10] MEDS: Naloxone HCl Nasal TAKE HOME 4 MG SPRAY NOSTRILALT (02:33)
== END 2022-09-10 02:34 | disposition home or self-care (01) ==
PROVIDERS: Emergency Provider Student in an Organized Health Care Education/Training Program
DX: T40.1X1A Poisoning by heroin, accidental (unintentional), initial encounter (principal); Y92.9 Unspecified place or not applicable; Z71.51 Drug abuse counseling and surveillance of drug abuser
CPT/HCPCS: 99282; 99283

== ENCOUNTER 2022-10-22 02:58 | Emergency (ER) | payer MEDICARE, MEDICAID, SELFPAY ==
[2022-10-22 03:05] VITALS: BP 122/79; BP 130/80; PULSE 110; PULSE 120; RESP 20; TEMP 36.4; O2SAT 100; O2SAT 98; BMI 22.6
[2022-10-22 03:11] VITALS: BP 130/80; PULSE 120; RESP 18; TEMP 36.6; O2SAT 98
--- NOTE | 2022-10-22 03:19 | ED.OVERDOSE ---
HPI - Overdose General Chief Complaint: Overdose Stated Complaint: overdose Time Seen by Provider: 10/22/22 03:05 Source: patient and EMS Mode of arrival: EMS Limitations: no limitations History of Present Illness HPI Narrative: Patient with history of opiate abuse slots 1 bag a week today even after snorting her back patient was stop breathing. ems gave 4 mg of Narcan and patient woke up on arrival patient is saturating 100% on room air with stable vitals denies any other substance abuse Related Data Home Medications Medication Instructions Recorded Confirmed clonidine HCl 0.1 mg tablet 0.1 mg PO BEDTIME 10/01/21 10/01/21 haloperidol 10 mg tablet 10 mg PO BEDTIME 10/01/21 10/01/21 quetiapine 50 mg tablet (Seroquel) 1 - 2 tab PO BEDTIME PRN insomnia 10/01/21 10/01/21 Previous Rx's Medication Instructions Recorded naloxone 4 mg/actuation nasal 4 mg intranasal Q2M PRN opioid 10/23/21 spray (Narcan) overdose #2 ea Allergies Allergy/AdvReac Type Severity Reaction Status Date / Time morphine [MORPHINE] AdvReac Unknown NAUSEA Verified 09/13/21 09:13 Review of Systems Review of Systems: Yes all other systems are reviewed and are negative PMFSH Past Medical History Medical History Anxiety Bipolar affective Cocaine use disorder Depression PCP abuse Polysubstance (including opioids) dependence, daily use PTSD (post-traumatic stress disorder) Schizoaffective disorder, bipolar type Schizophrenia Schizophrenia Suicidal behavior Social History Social History Household Members: Family Housing: Apartment Do you presently have visiting nurse or other home services: No Alcohol intake: current Alcohol intake frequency: a few times a week Alcohol type: beer Patient Tobacco Use Status: Never used Tobacco Cigarette Packs Per Day: 0.25 Cigarettes Per Day: 5.0 Years Smoked: 10 Smoked in Last 30 Days: Yes Second Hand Smoke Exposure: No Use of substances other than those prescribed or required for medical reasons: Yes Substance Use Type: Heroin and Marijuana Substance Use Frequency: Daily Advance Directives: No Advance Directives Information Provided: No service: No Sexual orientation: Straight/Heterosexual Physical Exam Vital Signs: Vital Signs: Last Vital Signs Temp 97.8 F 10/22/22 03:11 Pulse 120 H 10/22/22 03:11 Resp 18 10/22/22 03:11 BP 130/80 10/22/22 03:11 Pulse Ox 98 10/22/22 03:11 O2 Del Method Room Air 10/22/22 03:11 BMI result Body Mass Index 22.6 Appearance: Alert. Oriented X3. No acute distress. Eyes: PERRLA, No Nystagmus ENT: Pharynx normal. Oral Mucosa moist Neck: Normal inspection. Neck supple. CVS: Normal heart rate and rhythm. Pulses normal. Respiratory: No respiratory distress. Equal air entry bilateral, no wheezing/rales/rhonchi Abdomen: Soft and nontender. Bowel sounds are present, no mass palpable, no CVA tenderness Skin: Skin warm and dry. Normal skin color. Normal skin turgor. Extremities: No lower extremity edema. No calf tenderness no IVDA Track pal[place]ino Neuro: Oriented X 3. No motor deficit. No sensory deficit.No cerebellar signs , cranial nerves II-XII intact Medical Decision Making Medical Decision Making MDM Narrative: Patient with opiate abuse denies any intentional overdose likely patient had fentanyl. Refused to get any help for detox vital stable discharge patient home Discharge Plan Discharge Clinical Impression: Opiate abuse, continuous Patient Disposition: Home, Self-Care Instructions: Opioid Use Disorder (ED) Additional Instructions: Do not use opiates follow with detox Prescriptions: No Action quetiapine [Seroquel] 50 mg tablet 1 - 2 tab PO BEDTIME PRN (Reason: insomnia) haloperidol 10 mg tablet 10 mg PO BEDTIME clonidine HCl 0.1 mg tablet 0.1 mg PO BEDTIME naloxone [Narcan] 4 mg/actuation spray,non-aerosol 4 mg intranasal Q2M PRN (Reason: opioid overdose) Qty: 2 0RF Rx Instructions: spray 1 dose into ONE nostril; alternate nostrils w each dose until help arrives Interventions: ED Discharge Assessment Last Done: 10/22/22 05:03 Discharge Date/Time: 10/22/22 05:04
--- NOTE | 2022-10-22 04:32 | PC.NURSE ---
pt presented A&Ox4, GCS 15. Admits to using half a bag of heroin. Pt was changed over by security and is resting comfortably in bed at this time with at the cardiac surgeon on.
--- NOTE | 2022-10-22 04:51 | MHC.EDTECH ---
call out to surgery on-call to DR. Montgomery at [address]
== END 2022-10-22 05:04 | disposition home or self-care (01) ==
PROVIDERS: Emergency Provider Internal Medicine
DX: T40.601A Poisoning by unspecified narcotics, accidental (unintentional), initial encounter (principal); Y92.9 Unspecified place or not applicable; Z87.891 Personal history of nicotine dependence; Z79.899 Other long term (current) drug therapy; Z71.51 Drug abuse counseling and surveillance of drug abuser
CPT/HCPCS: 99284; 99285

== ENCOUNTER 2022-11-06 11:48 | Emergency (ER) | payer MEDICARE, MEDICAID, SELFPAY ==
[2022-11-06 11:54] VITALS: BP 162/109; PULSE 100; O2SAT 99
[2022-11-06 11:57] VITALS: BP 140/82; PULSE 85; RESP 16; TEMP 36.8; O2SAT 99
[2022-11-06 12:02] VITALS: BP 140/82; PULSE 82; RESP 16; O2SAT 96
[2022-11-06 12:05] VITALS: BMI 23.6
--- NOTE | 2022-11-06 12:10 | PC.NURSE ---
Alert but slow to respond. Per ems report was found unresponsive and given 8mg nasal narcan by bystanders. Patient states it was an accidental overdose on e 1 bag of heroin and has no thoughts of SI/HI. States did also drink alcohol today- unable to recall how much.
--- NOTE | 2022-11-06 13:15 | ED.OVERDOSE ---
HPI - Overdose General Chief Complaint: Overdose Stated Complaint: heroin overdose narcan given Time Seen by Provider: 11/06/22 13:09 Source: patient, EMS, RN notes reviewed and old records reviewed Mode of arrival: EMS Limitations: no limitations History of Present Illness HPI Narrative: 27 year old male with history of polysubstance abuse, PTSD, schizoaffective disorder, and psychosis presents to the ED via EMS today after being found unresponsive s/p accidental heroin OD. Per EMS, patient was given 8mg IN Narcan by bystander w/positive result. Patient admits to using heroin today- unable to quantify the amount. Denies SI/HI. Denies ETOH consumption or other ilicit drug use. denies fall/injury, CP/SOB, abdoinal pain MD complaint: accidental overdose Related Data Home Medications Medication Instructions Recorded Confirmed clonidine HCl 0.1 mg tablet 0.1 mg PO BEDTIME 10/01/21 10/01/21 haloperidol 10 mg tablet 10 mg PO BEDTIME 10/01/21 10/01/21 quetiapine 50 mg tablet (Seroquel) 1 - 2 tab PO BEDTIME PRN insomnia 10/01/21 10/01/21 Previous Rx's Medication Instructions Recorded naloxone 4 mg/actuation nasal 4 mg intranasal Q2M PRN opioid 10/23/21 spray (Narcan) overdose #2 ea Allergies Allergy/AdvReac Type Severity Reaction Status Date / Time morphine [MORPHINE] AdvReac Unknown NAUSEA Verified 09/13/21 09:13 Review of Systems Review of Systems: Constitutional: No Fever, No Chills ENT/Mouth: No sore throat, No Swallowing Difficulty Eyes: No Vision Changes Cardiovascular: No Chest Pain, No SOB, No Palpitations Respiratory: No Cough, No Sputum, No Wheezing Gastrointestinal: No Nausea, No Vomiting, No Abdominal pain Musculoskeletal: No joint pain, No Myalgias, No Joint Swelling Skin: No Skin Lesions, No rash Neuro: No Weakness, No Numbness, No Paresthesias, No Loss of Consciousness, No Dizziness, No Headache Psych: No Anxiety/Panic, No Depression, No SI/HI/AH/VH Yes all other systems are reviewed and are negative Constitutional: Constitutional: Reports as per HPI [facility] Past Medical History Attestation statement: The following information was validated with the patient. Source: old records reviewed Medical History Anxiety Bipolar affective Cocaine use disorder Depression PCP abuse Polysubstance (including opioids) dependence, daily use PTSD (post-traumatic stress disorder) Schizoaffective disorder, bipolar type Schizophrenia Schizophrenia Suicidal behavior Social History Social History Household Members: Family Housing: Apartment Do you presently have visiting nurse or other home services: No Alcohol intake: current Alcohol intake frequency: a few times a week Alcohol type: beer Patient Tobacco Use Status: Never used Tobacco Cigarette Packs Per Day: 0.25 Cigarettes Per Day: 5.0 Years Smoked: 10 Smoked in Last 30 Days: Yes Second Hand Smoke Exposure: No Use of substances other than those prescribed or required for medical reasons: Yes Substance Use Type: Heroin Advance Directives: No service: No Sexual orientation: Straight/Heterosexual Physical Exam Vital Signs: Vital Signs: Last Vital Signs Temp 98.2 F 11/06/22 11:57 Pulse 68 11/06/22 14:00 Resp 18 11/06/22 14:00 BP 111/47 L 11/06/22 14:00 Pulse Ox 96 11/06/22 14:00 O2 Del Method Room Air 11/06/22 14:00 BMI result Body Mass Index 23.6 Const: Other: Lethargic however easily arousable General: cooperative, comfortable, no acute distress and alert; No ill appearing Nutritional Appearance: average body habitus Orientation/consciousness: patient oriented x3 Limitations: no limitations HEENT: Head: Yes normal to inspection and Yes atraumatic Ears: hearing grossly normal bilaterally General nose exam: Normal external nose present Face and sinus: Yes normal facial exam Throat: Yes posterior oropharynx normal Eyes: General: appearance normal, both eyes and all related structures Pupils: Equal, round and reactive pupils present EOM: EOMs intact bilaterally Neck: Neck: Yes normal visual inspection Resp: Effort & Inspection: normal respiratory effort and no respiratory distress Auscultation: clear to auscultation bilaterally Cardio: Rate: regular rate Heart sounds: S1 normal heart sound present and S2 normal heart sound present GI: Inspection: Yes normal to inspection Palpation (GI): Soft to palpation, nontender, no guarding and not rigid Back/Spine/Pelvis: Other: No midline cervical/thoracic/lumbar spinous tenderness/step-off or deformity Skin: General skin exam: no rashes or lesions noted Wounds: no wounds Neuro: General: patient oriented x3, tone normal, moves all extremities, no focal motor deficits and CN's II-XI intact bilaterally Cranial nerves: Yes CN's II-XII intact bilaterally and Yes Equal, round and reactive pupils present Extrem: General: Yes normal to inspection Psych: Appearance: grossly normal Speech and movement: Normal speech and movement present Attitude: cooperative Course Course Course Narrative: -tox screen positive for opiates, fentanyl, cocaine -Patient was evaluated by recovery, resources given. Patient will be discharged with Narcan to go -[id number]--patient ambulating in the ED with steady gait, appears clinically sober, awake and alert. Feels safe for discharge at this time Results discussed with patient including worrisome signs and symptoms and strict return precautions, and when to return to the emergency department. They verbalized understanding and feel safe for discharge at this time. Medical Decision Making Medical Decision Making [facility] Narrative: 27 year old male with history of polysubstance abuse, PTSD, schizoaffective disorder, and psychosis presents to the ED via EMS today after being found unresponsive s/p accidental heroin OD. Per EMS, patient was given 8mg IN Narcan by bystander w/positive result. On exam, vital signs notable for mildly elevated BP. Physical exam otherwise unremarkable, no evidence of trauma or midline spinous tenderness. Denies SI/HI. Concern for polysubstance abuse with accidental OD. Lower suspicion for ICH or intra-abdominal/intrathoracic trauma/bleeding Plan: UDS with care team consult for SUDE Please refer to course for remaining clinical decision making, interpretation of labs/imaging results, and discussions with consultants and/or family members. Differential Diagnosis Differential Diagnoses: The differential diagnosis associated with the presentation includes As above Admission/Observation Consideration of admission/observation: Escalation of care including admission/observation considered Consult Healthcare Provider Management of the patient was discussed with: Behavioral Health Provider Lab Data [facility] Lab Attestation statement: I reviewed the patient's lab results. Labs: Lab Results 11/06/22 Range/Units 15:40 Urine Opiates Screen POSITIVE H (Not Detect) Urine Fentanyl Screen POSITIVE H (Not Detect) Ur Barbiturates Screen Not Detected (Not Detect) Ur Phencyclidine Scrn Not Detected (Not Detect) Ur Amphetamines Screen Not Detected (Not Detect) U Benzodiazepines Scrn Not Detected (Not Detect) Urine Cocaine Screen POSITIVE H (Not Detect) U Marijuana (THC) Screen Not Detected (Not Detect) Radiology Impression Discussion of test interpretation with radiology: I have reviewed the radiologist's reading. Independent Historian Clinical information obtained from an independent historian. History obtained from or confirmed by: EMS External Record Review External record reviewed: Inpatient record, Office record, Outpatient record, Prior outpatient labs, Prior outpatient radiology, Primary care record and Outside ED record Tests considered The following testing was considered but not selected: As above Chronic Conditions Patient?s care impacted by: Other (Polysubstance abuse) Social Determinants Patient?s care significantly limited by Social Determinants of Health including: Low income and Alcoholism and drug addiction in family Discharge Plan Discharge Clinical Impression: Drug overdose Patient Disposition: Home, Self-Care Instructions: Adult Overdose (ED) Additional Instructions: Avoid alcohol and drug use this can kill you Please carry Narcan on you at all times Follow-up with her doctor Prescriptions: No Action quetiapine [Seroquel] 50 mg tablet 1 - 2 tab PO BEDTIME PRN (Reason: insomnia) haloperidol 10 mg tablet 10 mg PO BEDTIME clonidine HCl 0.1 mg tablet 0.1 mg PO BEDTIME naloxone [Narcan] 4 mg/actuation spray,non-aerosol 4 mg intranasal Q2M PRN (Reason: opioid overdose) Qty: 2 0RF Rx Instructions: spray 1 dose into ONE nostril; alternate nostrils w each dose until help arrives Referrals: [facility] [Provider Group] [facility] [Outside]
--- NOTE | 2022-11-06 13:22 | PC.NURSE ---
Alert and oriented, denies pain. Provided with food and fluids
[2022-11-06 14:00] VITALS: BP 111/47; PULSE 68; RESP 18; O2SAT 96
--- NOTE | 2022-11-06 14:02 | PC.NURSE ---
Reports feeling better after eating. temp 98.8, patient with perspiration on forehead.
--- NOTE | 2022-11-06 14:53 | HO.SUDE ---
This check writer salesperson met w/ pt to complete SUDE. Pt guarded, difficult to engage. 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 Pt states no hx of treatment, no hx of medications for opiate use. This check writer salesperson reviewed hx of overdoses. Pt declined harm reduction,MOUD, recovery supports. Contact information provided for Addiction/Recovery team, pt encouraged to call or present to the ED for questions/concerns.
--- NOTE | 2022-11-06 17:02 | PC.NURSE ---
Reviewed discharge plan with patient who verbalized understanding. Provided with ashleigh, patient stating he knows how to use it
== END 2022-11-06 17:02 | disposition home or self-care (01) ==
PROVIDERS: Emergency Provider Emergency Medicine Emergency Medical Services
DX: R40.4 Transient alteration of awareness (principal); T40.1X1A Poisoning by heroin, accidental (unintentional), initial encounter; F19.10 Other psychoactive substance abuse, uncomplicated; Y92.9 Unspecified place or not applicable; F43.10 Post-traumatic stress disorder, unspecified; F25.9 Schizoaffective disorder, unspecified; F29 Unspecified psychosis not due to a substance or known physiological condition; F11.20 Opioid dependence, uncomplicated; F17.210 Nicotine dependence, cigarettes, uncomplicated
CPT/HCPCS: 80307; 99284; 99285

== ENCOUNTER 2022-11-08 11:14 | Emergency (ER) | payer MEDICARE, MEDICAID, SELFPAY ==
[2022-11-08 11:17] VITALS: BP 121/63; BP 164/82; PULSE 108; PULSE 97; RESP 18; TEMP 36.9; O2SAT 95; BMI 23.0
--- NOTE | 2022-11-08 12:56 | HO.SUDE ---
Met with pt in ED12 after pt presented after accidental overdose. Pt sitting in bed, awake, alert, difficult to engage in conversation. Pt states I have schizophrenia and looks to corner of room and says F you. No one was present in the room. Pt reports using a bump, IN, heroin today. Reports heroin use is sporadic. Pt reports using cocaine, INH, daily, states $1 or $2, sometimes $20. Pt flat during conversation, unable to engage. Mónica Leong APRN, to see pt for further discussion and assessment.
[2022-11-08 13:09] VITALS: BP 119/55; PULSE 54; RESP 18; O2SAT 95
--- NOTE | 2022-11-08 13:17 | ED.OVERDOSE ---
HPI - Overdose General Chief Complaint: Overdose Stated Complaint: overdose narcan given Time Seen by Provider: 11/08/22 13:02 History of Present Illness HPI Narrative: Patient is a 27-year-old male with a history polysubstance abuse including heroin abuse. Also a history of schizoaffective disorder. Patient use heroin by sniffing, subsequently noted to have loss of consciousness. Patient was given Narcan which woke him up. He has no complaints at this time. No chest pain or shortness of breath. Patient does not wish to go to detox. Related Data Home Medications Medication Instructions Recorded Confirmed clonidine HCl 0.1 mg tablet 0.1 mg PO BEDTIME 10/01/21 10/01/21 haloperidol 10 mg tablet 10 mg PO BEDTIME 10/01/21 10/01/21 quetiapine 50 mg tablet (Seroquel) 1 - 2 tab PO BEDTIME PRN insomnia 10/01/21 10/01/21 Previous Rx's Medication Instructions Recorded naloxone 4 mg/actuation nasal 4 mg intranasal Q2M PRN opioid 10/23/21 spray (Narcan) overdose #2 ea Allergies Allergy/AdvReac Type Severity Reaction Status Date / Time morphine [MORPHINE] AdvReac Unknown NAUSEA Verified 09/13/21 09:13 Review of Systems Review of Systems: No chest pain or shortness breath no diaphoresis Yes all other systems are reviewed and are negative [facility] Past Medical History Attestation statement: The following information was validated with the patient. Medical History Anxiety Bipolar affective Cocaine use disorder Depression PCP abuse Polysubstance (including opioids) dependence, daily use PTSD (post-traumatic stress disorder) Schizoaffective disorder, bipolar type Schizophrenia Schizophrenia Suicidal behavior Social History Social History Household Members: Family Housing: Apartment Do you presently have visiting nurse or other home services: No Alcohol intake: current Alcohol intake frequency: a few times a week Alcohol type: beer Patient Tobacco Use Status: Never used Tobacco Cigarette Packs Per Day: 0.25 Cigarettes Per Day: 5.0 Years Smoked: 10 Second Hand Smoke Exposure: No Substance Use Type: Heroin Advance Directives: No Advance Directives Information Provided: No service: No Sexual orientation: Straight/Heterosexual Physical Exam Vital Signs: Vital Signs: Last Vital Signs Temp 98.5 F 11/08/22 11:17 Pulse 80 11/08/22 14:25 Resp 18 11/08/22 14:25 BP 123/65 11/08/22 14:25 Pulse Ox 95 11/08/22 14:25 O2 Del Method Room Air 11/08/22 14:25 BMI result Body Mass Index 23.0 Appearance: Alert. Oriented X3. No acute distress. Eyes: Pupils equal, round and reactive to light. ENT: Pharynx normal. Neck: Normal inspection. Neck supple. No lymph nodes noted. No crepitus CVS: Normal heart rate and rhythm. Pulses normal. Normal S1 and S2 Respiratory: No respiratory distress. Breath sounds normal. No Wheezing. No rales Abdomen: Soft and nontender. No rigidity. No distention. good BS x4 Skin: Skin warm and dry. Normal skin color. Normal skin turgor. Extremities: No lower extremity edema. Neurovascular intact to all extremities. No Lacerations. No Rash Neuro: Oriented X 3. No motor deficit. No sensory deficit. Moving all extermities. No slurred speech Medical Decision Making Medical Decision Making [facility] Narrative: Well-appearing no acute distress patient awake alert oriented. Last used heroin at approximately 12:00 o'clock. The patient denies any suicidal homicidal ideation patient did not want detox at this time. Currently being monitored for full 2 hours prior to discharge. In no distress. Patient observed in the emergency department for over 3 hours. No acute distress. Breathing. Did not want detox. Will discharge patient home on additional Narcan. In stable condition. Differential Diagnosis Differential Diagnoses: The differential diagnosis associated with the presentation includes Narcotic overdose, altered mental status, hypoglycemia Admission/Observation Consideration of admission/observation: Escalation of care including admission/observation considered Monitor for 2 hours Lab Data [facility] Lab Attestation statement: I reviewed the patient's lab results. Chronic Conditions Polysubstance abuse, schizoaffective disorder Social Determinants Patient?s care significantly limited by Social Determinants of Health including: Alcoholism and drug addiction in family Discharge Plan Discharge Clinical Impression: Narcotic abuse Patient Disposition: Home, Self-Care Instructions: Narcotic Use Disorder (ED) Prescriptions: No Action quetiapine [Seroquel] 50 mg tablet 1 - 2 tab PO BEDTIME PRN (Reason: insomnia) haloperidol 10 mg tablet 10 mg PO BEDTIME clonidine HCl 0.1 mg tablet 0.1 mg PO BEDTIME naloxone [Narcan] 4 mg/actuation spray,non-aerosol 4 mg intranasal Q2M PRN (Reason: opioid overdose) Qty: 2 0RF Rx Instructions: spray 1 dose into ONE nostril; alternate nostrils w each dose until help arrives Referrals: Physician,Unknown J [Primary Care Provider] - 11/10/22
[2022-11-08 14:25] VITALS: BP 123/65; PULSE 80; RESP 18; O2SAT 95
--- NOTE | 2022-11-08 14:46 | PC.NURSE ---
pt changed into hospital attire, edie and bharat martin provided for pt.
--- NOTE | 2022-11-08 18:58 | HO.ADDICTPRO ---
Subjective Subjective Date of Service: 11/08/22 Reason For Visit: overdose narcan given Interim History: Patient is a 27 year old male who presented to [facility] following reported opioid overdose Chart review shows this is patient's 6th admission to [facility] since May 2022 for overdose Patient seen by low raw sugar cutter, this typewriter ribbon winder and RN who has rapport with patient. Difficult to engage patient as his responses were vague or not at all. Unable to say how much he uses or how often. When asked about overdose, he stated I took a little too much , but could not elaborate beyond that. Not engaged in treatment for OUD He declines any medications for opiate use, declines any treatment or resources. Reports that he lives with his parents and reported to RN that his father administers his medications. At time of interview he did not appear to be in any discomfort, no overt signs of withdrawal This typewriter ribbon winder inquired if collateral call could be made to his parents, patient declined. Review of Systems Constitutional: Reports as per HPI and Reports no additional constitutional complaints Mental Status Exam Mental Status Exam Level of Consciousness: Awake and Alert Affect Description: Blunted Judgement: Poor Diagnostics Vital Signs (24Hr): Vital Signs - 24 hr 11/08/22 11:17 11/08/22 13:09 11/08/22 14:25 Temperature 98.5 F Pulse Rate 97 54 80 Respiratory Rate 18 18 18 Blood Pressure 121/63 119/55 L 123/65 Pulse Oximetry 95 95 95 Oxygen Delivery Method Room Air Room Air Room Air BMI result Body Mass Index 23.0 Medications Allergies Allergies Allergy/AdvReac Type Severity Reaction Status Date / Time morphine [MORPHINE] AdvReac Unknown NAUSEA Verified 09/13/21 09:13 Assessment & Plan Assessment & Plan (1) Opioid use disorder: Status: Acute Code(s): F11.90 - Opioid use, unspecified, uncomplicated Assessment and Plan: declines any interventions including medications for opioid use disorder high risk for subsequent overdose ? engaging community team in regards to number of overdose Total time managing care of this patient today __35__ minutes.
== END 2022-11-08 15:52 | disposition home or self-care (01) ==
PROVIDERS: Emergency Provider Emergency Medicine Emergency Medical Services
DX: F19.10 Other psychoactive substance abuse, uncomplicated (principal); F11.20 Opioid dependence, uncomplicated; F43.10 Post-traumatic stress disorder, unspecified; F25.0 Schizoaffective disorder, bipolar type; F29 Unspecified psychosis not due to a substance or known physiological condition
CPT/HCPCS: 99283; 99284

== ENCOUNTER 2022-11-26 22:02 | Emergency (ER) | payer MEDICARE, MEDICAID, SELFPAY ==
[2022-11-26 22:17] VITALS: BP 131/91; PULSE 76; RESP 14; TEMP 36.4; O2SAT 99
--- NOTE | 2022-11-26 22:56 | PC.NURSE ---
respirations non labored. capnography monitoring applied. no vomiting. cont to reinforce safety and monitor.
--- NOTE | 2022-11-26 23:13 | ED_ITS ---
HPI - Overdose General Chief Complaint: Overdose Time Seen by Provider: 11/26/22 23:04 Source: patient Mode of arrival: EMS Limitations: no limitations History of Present Illness HPI Narrative: history of substance abuse uses heroin today he used 2 bags was found on the ground by passerby which are breathing received Narcan by PD with good results no signs of any head injury or fall patient does not want any detox or help Related Data Home Medications Medication Instructions Recorded Confirmed clonidine HCl 0.1 mg tablet 0.1 mg PO BEDTIME 10/01/21 10/01/21 haloperidol 10 mg tablet 10 mg PO BEDTIME 10/01/21 10/01/21 quetiapine 50 mg tablet (Seroquel) 1 - 2 tab PO BEDTIME PRN insomnia 10/01/21 10/01/21 Previous Rx's Medication Instructions Recorded naloxone 4 mg/actuation nasal 4 mg intranasal Q2M PRN opioid 10/23/21 spray (Narcan) overdose #2 ea Allergies Allergy/AdvReac Type Severity Reaction Status Date / Time morphine [MORPHINE] AdvReac Unknown NAUSEA Verified 09/13/21 09:13 Review of Systems Review of Systems: Yes all other systems are reviewed and are negative [facility] Past Medical History Medical History Anxiety Bipolar affective Cocaine use disorder Depression PCP abuse Polysubstance (including opioids) dependence, daily use PTSD (post-traumatic stress disorder) Schizoaffective disorder, bipolar type Schizophrenia Schizophrenia Suicidal behavior Social History Social History Household Members: Family Housing: Apartment Do you presently have visiting nurse or other home services: No Alcohol intake: current Alcohol intake frequency: a few times a week Alcohol type: beer Patient Tobacco Use Status: Never used Tobacco Cigarette Packs Per Day: 0.25 Cigarettes Per Day: 5.0 Years Smoked: 10 Second Hand Smoke Exposure: No Substance Use Type: Heroin Advance Directives: No Advance Directives Information Provided: No service: No Sexual orientation: Straight/Heterosexual Physical Exam Vital Signs: Vital Signs: Last Vital Signs Temp 97.6 F 11/26/22 22:17 Pulse 74 11/26/22 23:27 Resp 18 11/26/22 23:27 BP 116/80 11/26/22 23:27 Pulse Ox 98 11/26/22 23:27 O2 Del Method Room Air 11/26/22 23:27 BMI result Body Mass Index 22.8 Appearance: sleepy easily arousable No acute distress. Eyes: PERRLA, No Nystagmus HEENT: Pharynx normal. Oral Mucosa moist atraumatic normocephalic Neck: Normal inspection. Neck supple. CVS: Normal heart rate and rhythm. Pulses normal. Respiratory: No respiratory distress. Equal air entry bilateral, no wheezing/rales/rhonchi Abdomen: Soft and nontender. Bowel sounds are present, no mass palpable, no CVA tenderness Skin: Skin warm and dry. Normal skin color. Normal skin turgor. Extremities: No lower extremity edema. No calf tenderness Neuro: Oriented X 3. No motor deficit. No sensory deficit.No cerebellar signs , cranial nerves II-XII intact Medical Decision Making Medical Decision Making MDM Narrative: patient alert awake is refusing to get any help for detox like go home will discharge patient home saturating 98 % at room air Discharge Plan Discharge Clinical Impression: Opiate overdose Patient Disposition: Home, Self-Care Instructions: Opioid Use Disorder (ED) Additional Instructions: stop using up follow-up with detox Prescriptions: No Action quetiapine [Seroquel] 50 mg tablet 1 - 2 tab PO BEDTIME PRN (Reason: insomnia) haloperidol 10 mg tablet 10 mg PO BEDTIME clonidine HCl 0.1 mg tablet 0.1 mg PO BEDTIME naloxone [Narcan] 4 mg/actuation spray,non-aerosol 4 mg intranasal Q2M PRN (Reason: opioid overdose) Qty: 2 0RF Rx Instructions: spray 1 dose into ONE nostril; alternate nostrils w each dose until help arrives
[2022-11-26 23:27] VITALS: BP 116/80; PULSE 74; RESP 18; O2SAT 98; BMI 22.8
== END 2022-11-27 01:33 | disposition home or self-care (01) ==
PROVIDERS: Emergency Provider Internal Medicine
DX: T40.1X1A Poisoning by heroin, accidental (unintentional), initial encounter (principal); F11.20 Opioid dependence, uncomplicated; Y92.9 Unspecified place or not applicable
CPT/HCPCS: 99283; 99284

== ENCOUNTER 2022-11-28 21:54 | Emergency (ER) | payer MEDICARE, MEDICAID, SELFPAY ==
[2022-11-28 22:04] VITALS: BP 145/91; PULSE 95; O2SAT 100; BMI 22.9
--- NOTE | 2022-11-28 22:48 | ED.OVERDOSE ---
HPI - Overdose General Chief Complaint: Overdose Stated Complaint: overdose, narcan given Time Seen by Provider: 11/28/22 22:17 Source: patient Mode of arrival: EMS Limitations: no limitations History of Present Illness HPI Narrative: Patient comes to the emergency room complaining of a drug overdose. Patient was found unresponsive on the sidewalk, he received 4 mg of Narcan by bystanders and 4 by EMS. Patient became alert and orient x3. Patient states that he took 1 bag of heroin. Patient awake and alert, states that he does not have any injuries, denies any headache, no pain anywhere for the patient states this was accidental, denies suicidal or homicidal ideation. Related Data Home Medications Medication Instructions Recorded Confirmed clonidine HCl 0.1 mg tablet 0.1 mg PO BEDTIME 10/01/21 10/01/21 haloperidol 10 mg tablet 10 mg PO BEDTIME 10/01/21 10/01/21 quetiapine 50 mg tablet (Seroquel) 1 - 2 tab PO BEDTIME PRN insomnia 10/01/21 10/01/21 Previous Rx's Medication Instructions Recorded naloxone 4 mg/actuation nasal 4 mg intranasal Q2M PRN opioid 10/23/21 spray (Narcan) overdose #2 ea Allergies Allergy/AdvReac Type Severity Reaction Status Date / Time morphine [MORPHINE] AdvReac Unknown NAUSEA Verified 09/13/21 09:13 Review of Systems Review of Systems: Constitutional : No Weight loss, No Fever, No Chills, No Night Sweats, No Fatigue, No Malaise ENT/Mouth : No Hearing loss, No Ear Pain, No Nasal Congestion, No Sinus Pain, No Hoarseness, No sore throat, No Rhinorrhea, No Swallowing Difficulty Eyes: No Eye Pain, No Swelling, No Redness, No Foreign Body, No Discharge, No Vision Changes Cardiovascular : No Chest Pain, No SOB, No Dyspnea on Exertion, No Orthopnea, No Edema, No Palpitations Respiratory : No Cough, No Sputum, No Wheezing, No Smoke Exposure, No Dyspnea Gastrointestinal : No Nausea, No Vomiting, No Diarrhea, No Constipation, No abdominal Pain, No Hematochezia, No Melena Genitourinary : no irregular bleeding, No Dysuria, No Urinary Frequency, No Hematuria, No Urinary Incontinence, No Urgency, No Flank Pain, No Urinary Flow Changes, No Hesitancy Musculoskeletal : No joint pain, No Myalgias, No Joint Swelling Skin : No Skin Lesions, No rash Neuro : No Weakness, No Numbness, No Paresthesias, No Loss of Consciousness, No Dizziness, No Headache Psych : No Anxiety/Panic, No Depression, No SI/HI/AH/VH, admits to heroin abuse Heme/Lymph: No Bruising, No Bleeding,No Lymphadenopathy Endocrine : No Polyuria, No Polydipsia, No Temperature Intolerance PMFSH Past Medical History Medical History Anxiety Bipolar affective Cocaine use disorder Depression PCP abuse Polysubstance (including opioids) dependence, daily use PTSD (post-traumatic stress disorder) Schizoaffective disorder, bipolar type Schizophrenia Schizophrenia Suicidal behavior Social History Social History Household Members: Family Housing: Apartment Do you presently have visiting nurse or other home services: No Alcohol intake: unknown Patient Tobacco Use Status: Never used Tobacco Cigarette Packs Per Day: 0.25 Cigarettes Per Day: 5.0 Years Smoked: 10 Smoked in Last 30 Days: No Second Hand Smoke Exposure: No Use of substances other than those prescribed or required for medical reasons: Yes Substance Use Type: Heroin Advance Directives: No Advance Directives Information Provided: No service: No Sexual orientation: Straight/Heterosexual Physical Exam Vital Signs: Vital Signs: BMI result Body Mass Index 22.9 Const: Other: Appearance: Alert. Oriented X3. No acute distress. Somnolent but easily arousable, coherent Eyes: Pupils equal, round and reactive to light. ENT: Pharynx normal. Neck: Normal inspection. Neck supple. No lymph nodes noted. No crepitus CVS: Normal heart rate and rhythm. Pulses normal. Normal S1 and S2 Respiratory: No respiratory distress. Breath sounds normal. No Wheezing. No rales Abdomen: Soft and nontender. No rigidity. No distention. Skin: Skin warm and dry. Normal skin color. Normal skin turgor. Extremities: No lower extremity edema. No Lacerations. No Rash Neuro: Oriented X 3. No motor deficit. No sensory deficit. Moving all extremities. No slurred speech. CN 2 through 12 grossly intact Psych: calm, cooperative, normal affect Medical Decision Making Medical Decision Making MDM Narrative: -patient is awake, alert and oriented x3, no acute distress, coherent Differential Diagnosis Differential Diagnoses: The differential diagnosis associated with the presentation includes (Alcohol intoxication, substance abuse) Admission/Observation Consideration of admission/observation: Escalation of care including admission/observation considered (Patient will remain under observation in the ED until sober and ready for discharge) Discharge Plan Discharge Clinical Impression: Accidental overdose Patient Disposition: Still a Patient Prescriptions: No Action quetiapine [Seroquel] 50 mg tablet 1 - 2 tab PO BEDTIME PRN (Reason: insomnia) haloperidol 10 mg tablet 10 mg PO BEDTIME clonidine HCl 0.1 mg tablet 0.1 mg PO BEDTIME naloxone [Narcan] 4 mg/actuation spray,non-aerosol 4 mg intranasal Q2M PRN (Reason: opioid overdose) Qty: 2 0RF Rx Instructions: spray 1 dose into ONE nostril; alternate nostrils w each dose until help arrives
[2022-11-29 03:43] VITALS: RESP 18
[2022-11-29 03:56] VITALS: BP 107/64; PULSE 54; RESP 16; TEMP 37.1; O2SAT 98
--- NOTE | 2022-11-29 05:28 | PC.NURSE ---
Patient has been able to care for himself. Self ambulating to and from rest room. Consumed 3 sandwiches without difficulty. Alert and oriented. Resp even and unlabored.
--- NOTE | 2022-11-29 05:40 | PC.NURSE ---
Discharge instructions reviewed with pt. Pt verbalizes understanding. Able to eat and drink with no difficulty or complications. Declines vitals at this time. Ambulatory with a steady gait at discharge.
== END 2022-11-29 05:41 | disposition home or self-care (01) ==
PROVIDERS: Emergency Provider Emergency Medicine
DX: R40.4 Transient alteration of awareness (principal); T40.1X1A Poisoning by heroin, accidental (unintentional), initial encounter; Y92.830 Public park as the place of occurrence of the external cause; F11.20 Opioid dependence, uncomplicated; F25.0 Schizoaffective disorder, bipolar type; Z79.899 Other long term (current) drug therapy
CPT/HCPCS: 99285

== ENCOUNTER 2022-12-10 19:49 | Emergency (ER) | payer MEDICARE, MEDICAID, SELFPAY ==
--- NOTE | ~2022-12-10 | CT_ITS ---
EXAMINATION: CT HEAD WITHOUT CONTRAST CLINICAL INFORMATION: Overdose. Head trauma. COMPARISON: None. TECHNIQUE: Contiguous axial imaging was performed from the skull base to vertex without intravenous administration of contrast. Coronal and sagittal reformatted images are performed at the CT scanner. [This CT examination was performed using dose optimization techniques as appropriate, variously including the following: *Automated exposure control *Adjustment of mA and/or kV according to patient size (this includes techniques or standardized protocols for targeted exams where dose is matched to indication/reason for exam; i.e. extremities or head) *Use of iterative reconstruction technique] DLP: 735 mGy-cm. FINDINGS: There is no evidence of acute intracranial hemorrhage or territorial infarction. No abnormal mass-effect or midline shift is seen. Bergman to white matter differentiation is well preserved. No extra-axial fluid collections are identified. The ventricles are normal in size. There is no abnormal attenuation within the brain parenchyma. There is no osseous abnormality. The mastoid air cells and visualized portions of the paranasal sinuses are well-aerated. CT/CT head/brain wo IV con IMPRESSION: No acute intracranial pathology.
[2022-12-10 19:57] VITALS: BP 131/89; BP 139/84; PULSE 110; RESP 16; TEMP 36.9; O2SAT 100; BMI 22.4
--- NOTE | 2022-12-10 20:16 | PC.NURSE ---
called security to telephone exchange operator pt.
--- NOTE | 2022-12-10 20:21 | PC.NURSE ---
pt a&o to self and place only. pt stating that the year is 2026. vss aside from tachycardia. pt comes in via ems after being found unresponsive on [address] ems verbalizes that they administered 12mg of narcan when pt finally came to. pt states that he sniffed 1 bag of heroin and doesn't remember anything after that. pt states that he has been using crack cocaine and heroin for the past 8 years. pt was found searching through pockets throughout triage assessment. security called to change patient over. pt completely changed over. call [place] placed within reach.
--- NOTE | 2022-12-10 20:25 | ECG_ITS ---
Test Reason : OVERDOSE Blood Pressure : / mmHG Vent. Rate : 085 BPM Atrial Rate : 085 BPM P-R Int : 158 ms QRS Dur : 092 ms QT Int : 384 ms P-R-T Axes : 061 073 045 degrees QTc Int : 456 ms Normal sinus rhythm Nonspecific T wave abnormality Abnormal ECG When compared with ECG of 02-JUN-2020 16:28, No significant changes seen Referred By: Generic ED Physician Electronically Signed By:RACHEL ROSARIO
[2022-12-10 20:37] VITALS: BP 120/77; PULSE 98; TEMP 36.8; O2SAT 100
--- NOTE | 2022-12-10 20:38 | PC.NURSE ---
pt resting in bed, talking, airway intact. +O2 sat on RA. piv placed. labs being sent
[2022-12-10 20:44] LABS: MANUAL DIFF FLAG NO
[2022-12-10 20:46] LABS: Basophils Absolute Auto 0.1 X10*3/uL (0.0-0.2); Basophils Percent Auto 0.8 % (0-2); Eosinophils Absolute Auto 0.1 X10*3/uL (0.0-0.4); Eosinophils Percent Auto 0.9 % (0-4); Hematocrit 41.8 % (42.0-52.0); Imm Gran Abs Auto 0.03 X10*3/uL (0.00-0.03); Imm Gran Pct Auto 0.4 % (0.0-0.4); Lymphocytes Absolute Auto 1.2 X10*3/uL (1.2-4.9); Mean Corpuscular HGB Conc 33.5 g/dl (31.0-36.0); Mean Corpuscular Hemoglobin 30.4 pg (27.0-33.0); Mean Corpuscular Volume 90.9 fL (80.0-98.0); Mean Platelet Volume 10.6 fL (9.4-12.4); Monocytes Absolute Auto 0.5 X10*3/uL (0.1-1.2); Monocytes Percent Auto 6.9 % (2-11); Platelet Count 236 X10*3/uL (160-400); Red Cell Distribution Width 12.3 % (11.0-16.0); White Blood Count 7.9 X10*3/uL (4.8-10.8)
[2022-12-10 21:14] LABS: Alanine Aminotransferase 25 U/L (0-40); Albumin Level 4.3 g/dL (3.5-5.0); Alkaline Phosphatase 62 U/L (39-117); Anion Gap 17 (12-20); Aspartate Amino Transferase 25 U/L (5-37); Bilirubin Total 0.3 mg/dL (0.0-1.0); Blood Urea Nitrogen 14 mg/dL (9-16); Calcium 8.9 mg/dL (8.4-10.2); Carbon Dioxide 19 mmol/L (22-29); Chloride 109 mmol/L (96-108); Creatinine Clr Calc Pharmacy 130.3; Estimated Glomerular Filt Rate > 60; Glucose Random 107 mg/dL (60-115); Potassium 3.4 mmol/L (3.3-5.1); Sodium 142 mmol/L (135-145); Total Protein 6.8 g/dL (6.5-8.0)
[2022-12-10 21:33] LABS: Salicylate < 5.0 mg/dL (15-30)
--- NOTE | 2022-12-10 22:36 | ED.OVERDOSE ---
HPI - Overdose General Chief Complaint: Overdose Stated Complaint: HEROINE OD AOX3 Time Seen by Provider: 12/10/22 20:36 Source: patient and EMS Mode of arrival: EMS Limitations: other (vague historian ) History of Present Illness HPI Narrative: This is a 27-year-old male history of opiate use disorder, schizoaffective disorder, PTSD, cocaine use disorder presenting to the emergency department status post accidental overdose, patient admits to significant 1 bag of heroin earlier today, he reports that he uses crack and heroin regularly he has been using for the past 8 years. Patient denies suicidal or homicidal ideation. He does not know if he fell or hit the ground. Patient tells me he feels fine at this time no medical complaints. Negative NIH stroke scale. GCS of 15 on arrival Related Data Home Medications Medication Instructions Recorded Confirmed clonidine HCl 0.1 mg tablet 0.1 mg PO BEDTIME 10/01/21 10/01/21 haloperidol 10 mg tablet 10 mg PO BEDTIME 10/01/21 10/01/21 quetiapine 50 mg tablet (Seroquel) 1 - 2 tab PO BEDTIME PRN insomnia 10/01/21 10/01/21 Previous Rx's Medication Instructions Recorded naloxone 4 mg/actuation nasal 4 mg intranasal Q2M PRN opioid 10/23/21 spray (Narcan) overdose #2 ea naloxone 4 mg/actuation nasal 4 mg intranasal Q2M PRN opioid 12/10/22 spray (Narcan) overdose #2 ea Allergies Allergy/AdvReac Type Severity Reaction Status Date / Time morphine [MORPHINE] AdvReac Unknown NAUSEA Verified 12/10/22 19:56 Review of Systems Review of Systems: Constitutional : No Fever, No Chills ENT/Mouth : No sore throat, No Rhinorrhea Eyes: No Eye Pain, No Swelling, No Redness Cardiovascular : No Chest Pain, No SOB Respiratory : No Cough, No Sputum Gastrointestinal : No Nausea, No Vomiting, No Diarrhea, No abdominal Pain Genitourinary : No Dysuria, No Hematuria Musculoskeletal : No joint pain, No Myalgias, No Joint Swelling Skin : No Skin Lesions, No rash Neuro : No Weakness, No Numbness Psych : No Anxiety, No Depression, No SI/HI/AH/VH All other systems reviewed and are negative Yes all other systems are reviewed and are negative [facility] Past Medical History Attestation statement: The following information was validated with the patient. Source: old records reviewed and nursing notes reviewed Medical History Anxiety Bipolar affective Cocaine use disorder Depression PCP abuse Polysubstance (including opioids) dependence, daily use PTSD (post-traumatic stress disorder) Schizoaffective disorder, bipolar type Schizophrenia Schizophrenia Suicidal behavior Social History Social History Household Members: Family Housing: Apartment Do you presently have visiting nurse or other home services: No Alcohol intake: current Alcohol intake frequency: 3 or more drinks per day Alcohol type: hard liquor Patient Tobacco Use Status: Never used Tobacco Cigarette Packs Per Day: 0.25 Cigarettes Per Day: 5.0 Years Smoked: 10 Smoked in Last 30 Days: Yes Second Hand Smoke Exposure: No Use of substances other than those prescribed or required for medical reasons: Yes Substance Use Type: Crack/Cocaine and Heroin Substance Use Frequency: Chronic Longstanding Last Used Substance: Just Prior to Admission Any prior treatment program specific to substance use: Yes Advance Directives: No Advance Directives Information Provided: No service: No Sexual orientation: Straight/Heterosexual Physical Exam Vital Signs: Vital Signs: Last Vital Signs Temp 98.2 F 12/10/22 20:37 Pulse 98 12/10/22 20:37 Resp 16 12/10/22 19:57 BP 120/77 12/10/22 20:37 Pulse Ox 100 12/10/22 20:37 O2 Del Method Room Air 12/10/22 20:37 BMI result Body Mass Index 22.4 vss Appearance: Alert.? Oriented X3.? No acute distress.? Head: Normocephalic, atraumatic, no step-offs or deformities Eyes: Pupils equal, round and reactive to light.? ENT: Pharynx normal.? Neck: Normal inspection.? Neck supple.? CVS: Normal heart rate and rhythm.? Pulses normal.? Respiratory: No respiratory distress.? Breath sounds normal.? Abdomen: Soft and nontender.? Skin: Skin warm and dry.? Normal skin color.? Normal skin turgor.? Extremities: No lower extremity edema.? No calf ttp. 5/5 strength to bilateral upper and lower extremities Neuro: Oriented X 3.? No motor deficit.? No sensory deficit. CN 2-12 intact . Ambulating with steady gait normal coordination. Negative Romberg and pronator drift. 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 Course Reevaluation(s) Reevaluation #1: CBC appears to be around normal limits. Chemistry unremarkable. Urine toxicology pending. Salicylates negative. Head CT pending. Patient bagging to go home. However agreeable to stay for head scan. Time: 22:39 Reevaluation #2: Patient's head CT with no acute intracranial pathology, no fractures, dislocations. Patient ambulating around the department without difficulty. No medical complaints. Would like to go home. Refusing substance use disorder evaluation peer will be discharged home with Narcan. No SI or HI at time of discharge Educated patient on diagnosis and treatment plan, answered all question, patient verbalizes understanding. At this time patient will be discharged home, advised to return with new or worsening symptoms. Educated on worrisome signs and symptoms and when to return. At this time I feel comfortable discharge home. Time: 23:15 Medical Decision Making Medical Decision Making [facility] Narrative: 27-year-old male presents status post accidental overdose no SI or HI, unclear if he fell or not. Patient received 12 mg of intranasal Narcan prior to arrival Physical exam benign. Negative NIH stroke scale. Will rule out traumatic injuries to head. Unlikely traumatic injuries to chest, abdomen or pelvis. Unlikely metabolic derangements however will rule out. Breath sounds clear, no signs of pneumothorax, flail chest. Patient does not want to speak to the care team would like to go home however agreeable for head CT. Differential Diagnosis Differential Diagnoses: The differential diagnosis associated with the presentation includes Will rule out traumatic injuries to head. Unlikely traumatic injuries to chest, abdomen or pelvis. Unlikely metabolic derangements however will rule out. Breath sounds clear, no signs of pneumothorax, flail chest. Admission/Observation Consideration of admission/observation: Escalation of care including admission/observation considered Unlikely Lab Data [facility] Lab Attestation statement: I reviewed the patient's lab results. 12/10/22 20:39 12/10/22 20:39 Labs: Lab Results 12/10/22 12/10/22 12/10/22 Range/Units 20:39 20:39 20:39 WBC 7.9 (4.8-10.8) X10*3/uL RBC 4.60 (4.60-5.80) X10*6/uL Hgb 14.0 (14.0-18.0) g/dl Hct 41.8 L (42.0-52.0) % MCV 90.9 (80.0-98.0) fL MCH 30.4 (27.0-33.0) pg MCHC 33.5 (31.0-36.0) g/dl RDW 12.3 (11.0-16.0) % Plt Count 236 (160-400) X10*3/uL MPV 10.6 (9.4-12.4) fL Immature Gran % (Auto) 0.4 (0.0-0.4) % Neut % (Auto) 76.0 H (45-73) % Lymph % (Auto) 15.0 L (20-40) % Mckean % (Auto) 6.9 (2-11) % Eos % (Auto) 0.9 (0-4) % Baso % (Auto) 0.8 (0-2) % Lymph # (Auto) 1.2 (1.2-4.9) X10*3/uL Mckean # (Auto) 0.5 (0.1-1.2) X10*3/uL Eos # (Auto) 0.1 (0.0-0.4) X10*3/uL Baso # (Auto) 0.1 (0.0-0.2) X10*3/uL Abs Immat Gran (auto) 0.03 (0.00-0.03) X10*3/uL Absolute Neuts (auto) 6.0 (2.0-8.3) x10*3/uL Absolute Nucleated RBC 0.000 (0.0-0.012) X10*3/uL Nucleated RBC % (auto) 0.0 (0.0-0.2) /100WBC Sodium 142 (135-145) mmol/L Potassium 3.4 D (3.3-5.1) mmol/L Chloride 109 H (96-108) mmol/L Carbon Dioxide 19 L (22-29) mmol/L Anion Gap 17 (12-20) BUN 14 (9-16) mg/dL Creatinine 0.87 (0.5-1.4) mg/dL Estim Creat Clear Calc 130.3 Estimated GFR > 60 Random Glucose 107 (60-115) mg/dL Calcium 8.9 D (8.4-10.2) mg/dL Total Bilirubin 0.3 (0.0-1.0) mg/dL AST 25 (5-37) U/L ALT 25 (0-40) U/L Alkaline Phosphatase 62 (39-117) U/L Total Protein 6.8 (6.5-8.0) g/dL Albumin 4.3 (3.5-5.0) g/dL Salicylates < 5.0 L (15-30) mg/dL Independent Interpretation I performed an independent interpretation of an: CT Scan Radiology Impression Discussion of test interpretation with radiology: I have reviewed the radiologist's reading. Core Measures AMI core measures followed: Yes Measure exclusions: not indicated Critical Care Time Critical Care Time Critical Care Time: No Discharge Plan Discharge Clinical Impression: Drug overdose Patient Disposition: Home, Self-Care Instructions: Adult Overdose (ED) Additional Instructions: Take your medications as prescribed. If you were prescribed antibiotics today, it is important that you take your medication to their entirety, do not skip any doses, do not finish them early. Follow-up with your primary care provider this week. Return to the emergency department with new or worsening symptoms. Such as fevers, chills, chest pain, shortness of breath, nausea, vomiting, dizziness, headache, vision changes, lethargy In case of emergency call 911 Prescriptions: New naloxone [Narcan] 4 mg/actuation spray,non-aerosol 4 mg intranasal Q2M PRN (Reason: opioid overdose) Qty: 2 0RF Rx Instructions: spray 1 dose into ONE nostril; alternate nostrils w each dose until help arrives No Action quetiapine [Seroquel] 50 mg tablet 1 - 2 tab PO BEDTIME PRN (Reason: insomnia) haloperidol 10 mg tablet 10 mg PO BEDTIME clonidine HCl 0.1 mg tablet 0.1 mg PO BEDTIME naloxone [Narcan] 4 mg/actuation spray,non-aerosol 4 mg intranasal Q2M PRN (Reason: opioid overdose) Qty: 2 0RF Rx Instructions: spray 1 dose into ONE nostril; alternate nostrils w each dose until help arrives Referrals: Physician,Unknown J [Primary Care Provider] - 2 days Stand Alone Forms: Work/School Release
[2022-12-10 23:22] LABS: Ethanol 186 mg/dL
[2022-12-10 23:28] LABS: Acetaminophen LAB < 17 mcg/mL (<30)
== END 2022-12-10 23:26 | disposition home or self-care (01) ==
PROVIDERS: Emergency Medicine; Physician Assistant; Emergency Provider Internal Medicine
DX: T40.1X1A Poisoning by heroin, accidental (unintentional), initial encounter (principal); F11.20 Opioid dependence, uncomplicated; F19.20 Other psychoactive substance dependence, uncomplicated; Y92.9 Unspecified place or not applicable; F25.0 Schizoaffective disorder, bipolar type; F43.10 Post-traumatic stress disorder, unspecified; Z79.899 Other long term (current) drug therapy
CPT/HCPCS: 36415; 70450; 80053; 80143; 80179; 80307; 85025; 93005; 99284; 99285

== ENCOUNTER → 2022-12-10 20:25 | Outpatient (BNV) | payer MEDICARE, MEDICAID, SELFPAY | PROVIDERS: Emergency Provider Internal Medicine; Visit Provider Internal Medicine | DX: R94.31 Abnormal electrocardiogram [ECG] [EKG] (principal) | CPT/HCPCS: 93010 ==

== ENCOUNTER 2022-12-21 14:21 | Emergency (ER) | payer MEDICARE, MEDICAID, SELFPAY ==
[2022-12-21 16:14] VITALS: BMI 22.7
--- NOTE | 2022-12-21 16:14 | ED.OVERDOSE ---
HPI - Overdose General Chief Complaint: Overdose Stated Complaint: HEROIN OVERDOSE Time Seen by Provider: 12/21/22 16:10 Source: patient Limitations: no limitations History of Present Illness HPI Narrative: Patient with accidental overdose Frequent visits for OD Denies SI/HI Denies depression or anxiety Does not want any assistance Symptoms severe. Worsened by drug use. Improved by abstinence. complaint: accidental overdose Intent: other (accident) Context: Accidental Overdose: wanted to get high Related Data Home Medications Medication Instructions Recorded Confirmed clonidine HCl 0.1 mg tablet 0.1 mg PO BEDTIME 10/01/21 10/01/21 haloperidol 10 mg tablet 10 mg PO BEDTIME 10/01/21 10/01/21 quetiapine 50 mg tablet (Seroquel) 1 - 2 tab PO BEDTIME PRN insomnia 10/01/21 10/01/21 Previous Rx's Medication Instructions Recorded naloxone 4 mg/actuation nasal 4 mg intranasal Q2M PRN opioid 10/23/21 spray (Narcan) overdose #2 ea naloxone 4 mg/actuation nasal 4 mg intranasal Q2M PRN opioid 12/10/22 spray (Narcan) overdose #2 ea Allergies Allergy/AdvReac Type Severity Reaction Status Date / Time morphine [MORPHINE] AdvReac Unknown NAUSEA Verified 12/10/22 19:56 Review of Systems Review of Systems: CONSTITUTIONAL: Denies weight loss, fever and chills. HEENT: Denies changes in vision and hearing. RESPIRATORY: Denies SOB and cough. CV: Denies palpitations no CP. GI: Denies abdominal pain, nausea, vomiting and diarrhea. : Denies dysuria and urinary frequency. MSK: Denies myalgia and joint pain. SKIN: Denies rash and pruritus. NEUROLOGICAL: Denies headache and syncope. PSYCHIATRIC: Denies recent changes in mood. Denies anxiety and depression. All other ROS are negative unless in HPI PMFSH Past Medical History Medical History Anxiety Bipolar affective Cocaine use disorder Depression PCP abuse Polysubstance (including opioids) dependence, daily use PTSD (post-traumatic stress disorder) Schizoaffective disorder, bipolar type Schizophrenia Schizophrenia Suicidal behavior Social History Social History Household Members: Family Housing: Apartment Do you presently have visiting nurse or other home services: No Alcohol intake: current Alcohol intake frequency: 3 or more drinks per day Alcohol type: hard liquor Patient Tobacco Use Status: Never used Tobacco Cigarette Packs Per Day: 0.25 Cigarettes Per Day: 5.0 Years Smoked: 10 Second Hand Smoke Exposure: No Substance Use Type: Crack/Cocaine and Heroin service: No Sexual orientation: Straight/Heterosexual Physical Exam Vital Signs: Vital Signs: Last Vital Signs Temp 98.8 F 12/21/22 16:19 Pulse 91 12/21/22 16:19 Resp 18 12/21/22 16:19 BP 133/84 12/21/22 16:19 Pulse Ox 99 12/21/22 16:19 O2 Del Method Room Air 12/21/22 16:19 BMI result Body Mass Index 22.7 GEN: Well developed, no acute distress, alert, oriented HEENT: Normocephalic, atraumatic, normal external ears, nose appears normal, no oropharyngeal edema or exudates Eyes: Normal to appearance Neck: Supple, no lymphadenopathy Respiratory: Talks in complete sentences, no respiratory distress, clear to auscultation bilaterally Cardiovascular: Regular rate and rhythm, no murmurs rubs or gallops Abdomen: Soft, nontender, nondistended, no guarding, no rebound Back: No CVA tenderness Extremities: No clubbing cyanosis or edema Neurologic: No focal neurologic deficits, cranial nerves 2-12 intact, strength is 5/5 bilaterally Skin: No rash Course Course Course Narrative: patient observed for 2 hours No SI or HI. Aware of risky behavior and concern for potential accidental . Denies hallucinations. Does not appear psychotic. He appears to have decision making capacity. I have recommended valuation by SUDE but refuses. Medical Decision Making Medical Decision Making [facility] Narrative: Accidental OD DD: subastance abuse, depression, anxiety,PTSD, schizoaffective Plan Observe, recommend eval by addiction services., Differential Diagnosis Differential Diagnoses: The differential diagnosis associated with the presentation includes (see above) Admission/Observation Consideration of admission/observation: Escalation of care including admission/observation considered Independent Historian Clinical information obtained from an independent historian. History obtained from or confirmed by: EMS Social Determinants Patient?s care significantly limited by Social Determinants of Health including: Other Social Determinant of Health Discharge Plan Discharge Clinical Impression: Drug overdose Patient Disposition: Home, Self-Care Instructions: Adult Overdose (ED), Naloxone (Into the nose) Prescriptions: No Action quetiapine [Seroquel] 50 mg tablet 1 - 2 tab PO BEDTIME PRN (Reason: insomnia) haloperidol 10 mg tablet 10 mg PO BEDTIME clonidine HCl 0.1 mg tablet 0.1 mg PO BEDTIME naloxone [Narcan] 4 mg/actuation spray,non-aerosol 4 mg intranasal Q2M PRN (Reason: opioid overdose) Qty: 2 0RF Rx Instructions: spray 1 dose into ONE nostril; alternate nostrils w each dose until help arrives naloxone [Narcan] 4 mg/actuation spray,non-aerosol 4 mg intranasal Q2M PRN (Reason: opioid overdose) Qty: 2 0RF Rx Instructions: spray 1 dose into ONE nostril; alternate nostrils w each dose until help arrives Referrals: [facility] [Provider Group] [facility] [Provider Group]
[2022-12-21 16:19] VITALS: BP 133/84; PULSE 91; RESP 18; TEMP 37.1; O2SAT 99
--- NOTE | 2022-12-21 16:58 | HO.SUDE ---
This proposal writer met with pt to complete SUDE. Pt presented to ED post overdose. This is patients 10th overdose since May 2022. Pt reports IN use of 1 bag heroin. Pt reports occasional use of heroin, less then one bag a few times per week. Pt declined recovery supports, MAT offered, pt declined. Opiate overdose prevention, harm reduction reviewed, pt agreeable to take home narcan. Pt verbalized understanding. Pt encouraged to walk into [facility] or call with questions or concerns.
[2022-12-21] MEDS: Naloxone HCl Nasal TAKE HOME 4 MG SPRAY 8 MG NOSTRILALT (17:31)
== END 2022-12-21 17:32 | disposition home or self-care (01) ==
PROVIDERS: Emergency Provider Emergency Medicine
DX: T40.1X1A Poisoning by heroin, accidental (unintentional), initial encounter (principal); F19.20 Other psychoactive substance dependence, uncomplicated; Y92.9 Unspecified place or not applicable; F43.10 Post-traumatic stress disorder, unspecified; F25.0 Schizoaffective disorder, bipolar type; Z79.899 Other long term (current) drug therapy
CPT/HCPCS: 99283

== ENCOUNTER 2022-12-22 21:09 | Inpatient (IN) | payer MEDICARE, MEDICAID, SELFPAY ==
[2022-12-22 21:11] VITALS: BP 133/80; PULSE 96; O2SAT 100
[2022-12-22 21:22] VITALS: BP 123/80; PULSE 94; RESP 20; TEMP 37.1; O2SAT 98; BMI 23.7
--- NOTE | 2022-12-22 21:22 | ED.OVERDOSE ---
HPI - Overdose General Stated Complaint: OD, 12MG NARCAN GIVEN PER EMS Time Seen by Provider: 12/22/22 21:19 Source: EMS Mode of arrival: EMS Limitations: no limitations History of Present Illness HPI Narrative: Patient comes to the emergency room via ambulance, patient was found unresponsive, given 12 mg of Narcan. Patient was seen here yesterday for the same issue, patient overdosed yesterday too. Patient denies suicidal or homicidal ideation Related Data Home Medications Medication Instructions Recorded Confirmed clonidine HCl 0.1 mg tablet 0.1 mg PO BEDTIME 10/01/21 10/01/21 haloperidol 10 mg tablet 10 mg PO BEDTIME 10/01/21 10/01/21 quetiapine 50 mg tablet (Seroquel) 1 - 2 tab PO BEDTIME PRN insomnia 10/01/21 10/01/21 Previous Rx's Medication Instructions Recorded naloxone 4 mg/actuation nasal 4 mg intranasal Q2M PRN opioid 10/23/21 spray (Narcan) overdose #2 ea naloxone 4 mg/actuation nasal 4 mg intranasal Q2M PRN opioid 12/10/22 spray (Narcan) overdose #2 ea Allergies Allergy/AdvReac Type Severity Reaction Status Date / Time morphine [MORPHINE] AdvReac Unknown NAUSEA Verified 12/10/22 19:56 Review of Systems Review of Systems: Constitutional : No Weight loss, No Fever, No Chills, No Night Sweats, No Fatigue, No Malaise ENT/Mouth : No Hearing loss, No Ear Pain, No Nasal Congestion, No Sinus Pain, No Hoarseness, No sore throat, No Rhinorrhea, No Swallowing Difficulty Eyes: No Eye Pain, No Swelling, No Redness, No Foreign Body, No Discharge, No Vision Changes Cardiovascular : No Chest Pain, No SOB, No Dyspnea on Exertion, No Orthopnea, No Edema, No Palpitations Respiratory : No Cough, No Sputum, No Wheezing, No Smoke Exposure, No Dyspnea Gastrointestinal : No Nausea, No Vomiting, No Diarrhea, No Constipation, No abdominal Pain, No Hematochezia, No Melena Genitourinary : no irregular bleeding, No Dysuria, No Urinary Frequency, No Hematuria, No Urinary Incontinence, No Urgency, No Flank Pain, No Urinary Flow Changes, No Hesitancy Musculoskeletal : No joint pain, No Myalgias, No Joint Swelling Skin : No Skin Lesions, No rash Neuro : No Weakness, No Numbness, No Paresthesias, No Loss of Consciousness, No Dizziness, No Headache Psych : No Anxiety/Panic, No Depression, No SI/HI/AH/VH, patient admits to drug use Heme/Lymph: No Bruising, No Bleeding,No Lymphadenopathy Endocrine : No Polyuria, No Polydipsia, No Temperature Intolerance PMFSH Past Medical History Medical History Anxiety Bipolar affective Cocaine use disorder Depression PCP abuse Polysubstance (including opioids) dependence, daily use PTSD (post-traumatic stress disorder) Schizoaffective disorder, bipolar type Schizophrenia Schizophrenia Suicidal behavior Social History Social History Household Members: Family Housing: Apartment Do you presently have visiting nurse or other home services: No Alcohol intake: current Alcohol intake frequency: 3 or more drinks per day Alcohol type: hard liquor Patient Tobacco Use Status: Never used Tobacco Cigarette Packs Per Day: 0.25 Cigarettes Per Day: 5.0 Years Smoked: 10 Second Hand Smoke Exposure: No Substance Use Type: Crack/Cocaine and Heroin service: No Sexual orientation: Straight/Heterosexual Physical Exam Const: Other: Appearance: Alert. Oriented X3. No acute distress. Eyes: Pupils equal, round and reactive to light. ENT: Pharynx normal. Neck: Normal inspection. Neck supple. No lymph nodes noted. No crepitus CVS: Normal heart rate and rhythm. Pulses normal. Normal S1 and S2 Respiratory: No respiratory distress. Breath sounds normal. No Wheezing. No rales Abdomen: Soft and nontender. No rigidity. No distention. Skin: Skin warm and dry. Normal skin color. Normal skin turgor. Extremities: No lower extremity edema. No Lacerations. No Rash Neuro: Oriented X 3. No motor deficit. No sensory deficit. Moving all extremities. No slurred speech. CN 2 through 12 grossly intact Psych: calm, cooperative, normal affect Course Course Course Narrative: -patient's oxygen saturation 98% on room air, vital stable -moderate to be discharged, patient will be sent home with Narcan -patient is still somnolent, easily arousable, Plan: Metabolized to freedom -patient states that he is not interested in detox/sude consult Medical Decision Making Differential Diagnosis Differential Diagnoses: The differential diagnosis associated with the presentation includes (Polysubstance abuse, alcohol intoxication, anxiety, depression) Admission/Observation Consideration of admission/observation: Escalation of care including admission/observation considered (Patient will be under observation in the emergency room until sober enough to be discharged.) Discharge Plan Discharge Clinical Impression: Accidental overdose Patient Disposition: Still a Patient Prescriptions: No Action quetiapine [Seroquel] 50 mg tablet 1 - 2 tab PO BEDTIME PRN (Reason: insomnia) haloperidol 10 mg tablet 10 mg PO BEDTIME clonidine HCl 0.1 mg tablet 0.1 mg PO BEDTIME naloxone [Narcan] 4 mg/actuation spray,non-aerosol 4 mg intranasal Q2M PRN (Reason: opioid overdose) Qty: 2 0RF Rx Instructions: spray 1 dose into ONE nostril; alternate nostrils w each dose until help arrives naloxone [Narcan] 4 mg/actuation spray,non-aerosol 4 mg intranasal Q2M PRN (Reason: opioid overdose) Qty: 2 0RF Rx Instructions: spray 1 dose into ONE nostril; alternate nostrils w each dose until help arrives
[2022-12-22 22:09] VITALS: BP 123/83; PULSE 97; RESP 21; O2SAT 100
[2022-12-23] VITALS (8 sets, daily range): BP systolic 106–138; BP diastolic 63–83; PULSE 46–94; RESP 12–18; TEMP 36.7–37.1; O2SAT 95–100; BMI 23.3
--- NOTE | 2022-12-23 06:06 | PC.NURSE ---
Patient is fully awake, alert and oreintedx3. VSS. Patient denies any pain. Patient requested a peanut butter and jelly sandwich and bharat mario, tolerated well, no nausea/vomiting. Patient ambulated 50 ft under supervision of this RN, gait is steady.
--- NOTE | 2022-12-23 08:06 | PC.NURSE ---
assumed care of this pt at 0700. pt awake in room, resting quietly, no apparent distress, denies pain, vss
--- NOTE | 2022-12-23 09:11 | ECG_ITS ---
Test Reason : OVERDOSE Blood Pressure : / mmHG Vent. Rate : 057 BPM Atrial Rate : 057 BPM P-R Int : 128 ms QRS Dur : 092 ms QT Int : 442 ms P-R-T Axes : -06 072 024 degrees QTc Int : 430 ms Sinus bradycardia Otherwise normal ECG When compared with ECG of 10-DEC-2022 21:32, Vent. rate has decreased BY 28 BPM Referred By: Kimi Arias Electronically Signed By:BORIS SKINNER
--- NOTE | 2022-12-23 09:53 | MHC.RECOVRN ---
T/w met with pt in his room, pt laying on stretcher, NAD. Intermittent eye contact, flat affect. Pt lacks insight into circumstances leading up to his overdose. Historically pt has been educated extensively on harm reduction, unclear if pt understands at this time the harm reduction measures discussed previously. Pt declining detox at this time. Concerns brought to provider Kimi WARE who was willing to order labs and a care team consult. Concerns about pt's escalation of overdoses brought to the care team. Plan for care team eval.
[2022-12-23 09:57] LABS: MANUAL DIFF FLAG NO
[2022-12-23 09:59] LABS: Basophils Absolute Auto 0.1 X10*3/uL (0.0-0.2); Basophils Percent Auto 0.7 % (0-2); Eosinophils Absolute Auto 0.5 X10*3/uL (0.0-0.4); Eosinophils Percent Auto 5.2 % (0-4); Hematocrit 44.3 % (42.0-52.0); Imm Gran Abs Auto 0.04 X10*3/uL (0.00-0.03); Imm Gran Pct Auto 0.4 % (0.0-0.4); Lymphocytes Absolute Auto 1.6 X10*3/uL (1.2-4.9); Lymphocytes Percent Auto 16.5 % (20-40); Mean Corpuscular HGB Conc 33.9 g/dl (31.0-36.0); Mean Corpuscular Hemoglobin 31.1 pg (27.0-33.0); Mean Corpuscular Volume 91.7 fL (80.0-98.0); Mean Platelet Volume 10.4 fL (9.4-12.4); Monocytes Absolute Auto 1.1 X10*3/uL (0.1-1.2); Monocytes Percent Auto 10.8 % (2-11); Neutrophils Absolute Auto 6.5 x10*3/uL (2.0-8.3); Neutrophils Percent Auto 66.4 % (45-73); Platelet Count 269 X10*3/uL (160-400); Red Blood Count 4.83 X10*6/uL (4.60-5.80); Red Cell Distribution Width 12.4 % (11.0-16.0); White Blood Count 9.8 X10*3/uL (4.8-10.8)
[2022-12-23 10:18] LABS: Acetaminophen LAB < 17 mcg/mL (<30); Alanine Aminotransferase 29 U/L (0-40); Albumin Level 4.2 g/dL (3.5-5.0); Alkaline Phosphatase 68 U/L (39-117); Anion Gap 10 (12-20); Aspartate Amino Transferase 38 U/L (5-37); Bilirubin Total 0.8 mg/dL (0.0-1.0); Blood Urea Nitrogen 24 mg/dL (9-16); Carbon Dioxide 26 mmol/L (22-29); Chloride 104 mmol/L (96-108); Creatinine Clr Calc Pharmacy 127.5; Estimated Glomerular Filt Rate > 60; Ethanol < 10 mg/dL; Glucose Random 113 mg/dL (60-115); Potassium 4.1 mmol/L (3.3-5.1); Salicylate < 5.0 mg/dL (15-30); Sodium 136 mmol/L (135-145); Total Protein 6.8 g/dL (6.5-8.0)
[2022-12-23 10:23] LABS: COVID-19 Test Negative (Negative); IDNOW Serial# 08D9AD1C
--- NOTE | 2022-12-23 11:49 | PC.NURSE ---
take home nalaxone not given d/t pt not cleared for discharge, remaining in the hospital.
--- NOTE | 2022-12-23 11:49 | PC.NURSE ---
ALL CLOTHING IN DECON.
--- NOTE | 2022-12-23 12:11 | PC.NURSE ---
REPORT TO XIAO JACOME
[2022-12-23 12:38] LABS: Appearance Urine Clear; Color Urine Yellow; Glucose Urine UA Negative (Negative); Leukocyte Esterase Urine Negative (Negative); Nitrite Urine Negative (Negative); PH 5.5 (5.0-9.0); Specific Gravity - Urine >= 1.030 (1.005-1.025); Urine Blood Negative (Negative); Urine Ketones Trace mg/dL (Negative); Urine Protein Trace mg/dL (Neg-Trace)
[2022-12-23 12:49] LABS: Amphetamine Screen Urine Not Detected (Not Detect); Barbiturates, Urine Not Detected (Not Detect); Benzodiazepines Screen Urine Not Detected (Not Detect); Cannabinoid Screen Urine Not Detected (Not Detect); Cocaine Screen Urine POSITIVE (Not Detect); Fentanyl, urine POSITIVE (Not Detect); Opiate Screen Urine Not Detected (Not Detect); Phencyclidine Screen Urine Not Detected (Not Detect)
--- NOTE | 2022-12-23 12:54 | PC.NURSE ---
assumed care of pt at 12:30, per recovery note increased frequency of ODs, pt denies SI/HI, resting quietly in room, urine sample obtained and sent to lab. pt pending CARE team eval.
--- NOTE | 2022-12-23 14:12 | MHC.CARE ---
at time of writing, patient seen by CARE for LOC assessment, he appears thought blocked/ with response delays, extremely poor insight/ judgment/ impulse control with +10 accidental OD's this summer with limited insight into the risk of despite t/w emphasis. He has psychiatric hx at this facility, current legal concerns. Informed patient that he needed to be admitted inpatient. After brief discussion he agreed (nodded in agreement) to sign in voluntarily
--- NOTE | 2022-12-24 00:24 | PC.ADMIT ---
Miguel Ángel Lamas is a 27yo male, admitted to the unit at 2225 from POD on CV for treatment of Schizo-Affective and substance abuse [ overdose].He was found unresponsive after accidentally overdosed [cocaine and opiates] and brought to ED on 12/22/22. He however denies SI/HI though presents as thought blocked and guarded. Pt is alert and orientated but a bit restless, uncooperative and anxious during admission process, he states I don't know to some of the question asked and wanted to go to bed. He has history of receiving treatment for psychosis and substance abuse at the ED and he has been brought in for 10 accidental OD's since October 2022. He reported being homeless and his belongings were left at [facility] due to spilled powder found on it. Pt is yet to sign treatment plan, safety tools and he refused his schedule Meds but ate snacks.
[2022-12-24 06:00] VITALS: RESP 18
[2022-12-24 08:52] LABS: Estimated Average Glucose 91 mg/dL; Hemoglobin A1C 115.8133 umol/L; Hemoglobin A1c % 4.8 %
[2022-12-24 09:00] LABS: Cholesterol 143 mg/dL; HDL Cholesterol 81 mg/dL; LDL Cholesterol Calculated 54 mg/dl; Triglycerides 43 mg/dL
--- NOTE | 2022-12-24 14:34 | P.HPPS_ITS ---
HPI Date of Service: 12/24/22 Chief Complaint: Psychosis HPI Narrative: per CARE team miguel, pt was BIBA after being found overdosed and unconscious in an alleyway by a random passerby, who called 911. he was reporedly given 12 mg of narcan. once revived and medically cleared, he was seen by the CARE team. he denied SI/HI/AVH and demonstrated thought-blocking. he was described as gua rded with notable delays in answering questions, his answers being quite terse. he has reportedly had 10 accidental overdoses in the past 2.5 months. utox was noted to be fentanyl and cocaine POS. not involved in outpt care. on probation. sometimes stays with parents when not using, otherwise homeless. on interview with MD, pt was receptive but displayed bizarre behaviors, making a brushing motion of his palm back and forth on his knee repetitively, to apparent excess, and without apparent purpose. he then flattened his hands and held them raised several inches above his knees for a prolonged period of time while sitting on the edge of his bed. he had been invited to come to interview with MD some minutes prior but seemed to have forgotten and continued to sit on edge of bed until reminded a second time, then came. he appeared quite distracted. once in interview, pt was terse or mute in response to MD's statements and suggestions. he did seem to agree to interview in general, but after 10 minutes of questions, or so, which he answered very succinctly, he philomena without saying a word and walked out of the interview. his responses were generally quite delayed. much of the history herein is collected from CARE team evaluation rather than patient. Past Psychiatric History: InPt: M5-04/2017; 09/2017-wrist lac; 04/2018; 03/2019 x 2; 11/2019; 01/2020; 02/2020; 03/2020. reports h/o about 15 psych hosps. SA: denies SIB: reports h/o cutting 5-6 times. MRE really long time ago. HIB: h/o aggression toward family members OutPt: h/o [facility]; Fernando James for psychopharmacology with [facility]. currently, none. Medical Evaluation Reviewed: Yes [facility] Medical History Anxiety Bipolar affective Cocaine use disorder Depression PCP abuse Polysubstance (including opioids) dependence, daily use PTSD (post-traumatic stress disorder) Schizoaffective disorder, bipolar type Schizophrenia Schizophrenia Suicidal behavior Family History: Paternal Uncle has Schizophrenia. paternal side also has bipolar/depression Social History: Has SSDI. Single Lives with parents on condition of med compliance. born in [place], moved to [place] with family in 2004. completed 10th grade. three sisters. Substance History: cocaine, opioids/fentanyl. has been section 35'd 3 times, was released early from [facility] due to failure to participate. Trauma History: Yes Diagnostics Vital Signs (24Hr): Vital Signs - 24 hr 12/23/22 16:21 12/23/22 23:36 12/24/22 06:00 Temperature 98.1 F 98.1 F Pulse Rate 78 94 Respiratory Rate 18 18 18 Blood Pressure 138/70 128/83 Pulse Oximetry 100 97 Oxygen Delivery Method Room Air Room Air BMI result Body Mass Index 23.3 Labs 12/23/22 09:53 12/23/22 09:53 Labs: Laboratory Results - last 48 hr 12/23/22 12/23/22 12/23/22 09:53 09:53 09:53 WBC RBC Hgb Hct MCV MCH MCHC RDW Plt Count MPV Immature Gran % (Auto) Neut % (Auto) Lymph % (Auto) [place] % (Auto) Eos % (Auto) Baso % (Auto) Lymph # (Auto) [place] # (Auto) Eos # (Auto) Baso # (Auto) Abs Immat Gran (auto) Absolute Neuts (auto) Absolute Nucleated RBC Nucleated RBC % (auto) Sodium 136 Potassium 4.1 D Chloride 104 Carbon Dioxide 26 Anion Gap 10 L BUN 24 H Creatinine 0.89 Estim Creat Clear Calc 127.5 Estimated GFR > 60 Random Glucose 113 Estimat Average Glucose Hemoglobin A1c % Calcium 10.0 D Total Bilirubin 0.8 AST 38 H ALT 29 Alkaline Phosphatase 68 Total Protein 6.8 Albumin 4.2 Triglycerides Cholesterol LDL Cholesterol, Calc HDL Cholesterol Urine Color Urine Appearance Urine pH Ur Specific Elmo Urine Protein Urine Glucose (UA) Urine Ketones Urine Blood Urine Nitrite Ur Leukocyte Esterase Salicylates < 5.0 L Urine Opiates Screen Urine Fentanyl Screen Acetaminophen < 17 Ur Barbiturates Screen Ur Phencyclidine Scrn Ur Amphetamines Screen U Benzodiazepines Scrn Urine Cocaine Screen U Marijuana (THC) Screen Ethyl Alcohol < 10 COVID-19 (LO) Negative COVID-19 Clin Com See Note 12/23/22 12/23/22 12/23/22 09:53 12:29 12:29 WBC 9.8 RBC 4.83 Hgb 15.0 Hct 44.3 MCV 91.7 MCH 31.1 MCHC 33.9 RDW 12.4 Plt Count 269 MPV 10.4 Immature Gran % (Auto) 0.4 Neut % (Auto) 66.4 Lymph % (Auto) 16.5 L [place] % (Auto) 10.8 Eos % (Auto) 5.2 H Baso % (Auto) 0.7 Lymph # (Auto) 1.6 [place] # (Auto) 1.1 Eos # (Auto) 0.5 H Baso # (Auto) 0.1 Abs Immat Gran (auto) 0.04 H Absolute Neuts (auto) 6.5 Absolute Nucleated RBC 0.000 Nucleated RBC % (auto) 0.0 Sodium Potassium Chloride Carbon Dioxide Anion Gap BUN Creatinine Estim Creat Clear Calc Estimated GFR Random Glucose Estimat Average Glucose Hemoglobin A1c % Calcium Total Bilirubin AST ALT Alkaline Phosphatase Total Protein Albumin Triglycerides Cholesterol LDL Cholesterol, Calc HDL Cholesterol Urine Color Yellow Urine Appearance Clear Urine pH 5.5 Ur Specific El[place] >= 1.030 H Urine Protein Trace Urine Glucose (UA) Negative Urine Ketones Trace Urine Blood Negative Urine Nitrite Negative Ur Leukocyte Esterase Negative Salicylates Urine Opiates Screen Not Detected Urine Fentanyl Screen POSITIVE H Acetaminophen Ur Barbiturates Screen Not Detected Ur Phencyclidine Scrn Not Detected Ur Amphetamines Screen Not Detected U Benzodiazepines Scrn Not Detected Urine Cocaine Screen POSITIVE H U Marijuana (THC) Screen Not Detected Ethyl Alcohol COVID-19 (LO) COVID-19 Clin Com 12/24/22 12/24/22 08:33 08:33 WBC RBC Hgb Hct MCV MCH MCHC RDW Plt Count MPV Immature Gran % (Auto) Neut % (Auto) Lymph % (Auto) [place] % (Auto) Eos % (Auto) Baso % (Auto) Lymph # (Auto) [place] # (Auto) Eos # (Auto) Baso # (Auto) Abs Immat Gran (auto) Absolute Neuts (auto) Absolute Nucleated RBC Nucleated RBC % (auto) Sodium Potassium Chloride Carbon Dioxide Anion Gap BUN Creatinine Estim Creat Clear Calc Estimated GFR Random Glucose Estimat Average Glucose 91 Hemoglobin A1c % 4.8 Calcium Total Bilirubin AST ALT Alkaline Phosphatase Total Protein Albumin Triglycerides 43 Cholesterol 143 LDL Cholesterol, Calc 54 HDL Cholesterol 81 Urine Color Urine Appearance Urine pH Ur Specific Elmo Urine Protein Urine Glucose (UA) Urine Ketones Urine Blood Urine Nitrite Ur Leukocyte Esterase Salicylates Urine Opiates Screen Urine Fentanyl Screen Acetaminophen Ur Barbiturates Screen Ur Phencyclidine Scrn Ur Amphetamines Screen U Benzodiazepines Scrn Urine Cocaine Screen U Marijuana (THC) Screen Ethyl Alcohol COVID-19 (LO) COVID-19 Clin Com Meds/Allergies Meds Home Medications Medication Instructions Recorded Confirmed Type No Known Home Meds 12/23/22 12/23/22 History Allergies Allergies Allergy/AdvReac Type Severity Reaction Status Date / Time morphine [MORPHINE] AdvReac Unknown NAUSEA Verified 12/10/22 19:56 Mental Status Exam Mental Status Exam Narrative: adequately dressed and groomed. bizarre repetitive movements of brushing at his knee, then sitting still on the edge of his bed with his hands held flat, horizontal in the air above his knees, for an extended period. variably cooperative. speech decr in amount, incr latency. thoughts linear in response to questions but with delay. appears distracted, delayed responses. bizarre behaviors as above and stood without a word and exited interview as MD was mid- sentence taking history. affect constricted, normo-intense, non-labile. mood unable to be assessed. no SI/HI/AVH expressed, but behaviors c/w at the least AH. Assessment & Plan Assessment & Plan (1) Opioid use disorder: Status: Acute Code(s): F11.90 - Opioid use, unspecified, uncomplicated (2) Cocaine use disorder: Status: Acute Code(s): F14.10 - Cocaine abuse, uncomplicated (3) Schizoaffective disorder, bipolar type: Status: Acute Code(s): F25.0 - Schizoaffective disorder, bipolar type Plan attempt to give anti-psychotics. comfort meds for opioid and cocaine withdrawal. Patient educated on: other (psychiatric interview process) Reason for continued inpatient stay Substantial Risk for: harm to self and inability to function Statement Statement: I have reviewed the history and physical and performed a pertinent examination on my patient. No changes have occurred unless specified. If the History and Physical was not performed prior to admission, the Hospitalist's service will be consulted for completing the admission physical. Time Spent With Patient Time: Total time managing care of this patient today __55__ minutes.
[2022-12-24 16:15] VITALS: BP 139/88; PULSE 123; TEMP 37.6
--- NOTE | 2022-12-24 16:31 | PC.NURSE ---
Miguel Ángel vomited at 1615. I assessed his vs: 99.6, 123 HR, 139/88 BP. I scored him 11 on CIWA. It had not been done previously today. I offered ativan associated with CIWA but he is refusing meds - ativan and maalox. Dr Pemberton informed. Miguel Ángel is noted to be eating excessively. He denies auditory disturbances, visual disturbances, tactile disturbances and denies headache. He is noted to have tremor when touched, He is diaphoretic, He is fidgeting and pacing. His nose is running.
[2022-12-25 09:37] VITALS: BP 134/94; PULSE 98; RESP 16; TEMP 37; O2SAT 98
[2022-12-25 10:41] VITALS: PULSE 93
[2022-12-25] MEDS: Thiamine HCL 100 MG TABLET PO (10:58)
[2022-12-25] MEDS: Folic Acid 1 MG TABLET PO (10:58)
--- NOTE | 2022-12-25 12:30 | P.PNPSI_ITS ---
Subjective Subjective Date of Service: 12/25/22 Reason For Visit: Psychosis Interim History: pt pacing thehalls. encouraged him to take medications. he said he took vitamins and walked away. per staff, refusing VS and meds. eating and sleeping. planning to return to parents' home after discharge. not planning to take any medication. +RIS. slamming doors and yelling at AH last NOC. Mental Status Exam Mental Status Exam Narrative: adequately dressed and groomed. pacing the halls. minimally cooperative. speech decr in amount, incr latency. thoughts linear in response to questions but with delay. appears distracted. ended interview after a few moments, simply walking away. affect constricted, normo-intense, non-labile. mood unable to be assessed. no SI/HI/AVH expressed, but behaviors c/w at the least AH. Diagnostics Vital Signs (24Hr): Vital Signs - 24 hr 12/24/22 16:15 12/25/22 09:37 Temperature 99.6 F 98.6 F Pulse Rate 123 H 98 Respiratory Rate 16 Blood Pressure 139/88 134/94 H Pulse Oximetry 98 Oxygen Delivery Method Room Air BMI result Body Mass Index 23.3 Labs 12/23/22 09:53 12/23/22 09:53 Labs: Laboratory Results - last 48 hr 12/23/22 12/23/22 12/24/22 12:29 12:29 08:33 Estimat Average Glucose 91 Hemoglobin A1c % 4.8 Triglycerides Cholesterol LDL Cholesterol, Calc HDL Cholesterol Urine Color Yellow Urine Appearance Clear Urine pH 5.5 Ur Specific [place] >= 1.030 H Urine Protein Trace Urine Glucose (UA) Negative Urine Ketones Trace Urine Blood Negative Urine Nitrite Negative Ur Leukocyte Esterase Negative Urine Opiates Screen Not Detected Urine Fentanyl Screen POSITIVE H Ur Barbiturates Screen Not Detected Ur Phencyclidine Scrn Not Detected Ur Amphetamines Screen Not Detected U Benzodiazepines Scrn Not Detected Urine Cocaine Screen POSITIVE H U Marijuana (THC) Screen Not Detected 12/24/22 08:33 Estimat Average Glucose Hemoglobin A1c % Triglycerides 43 Cholesterol 143 LDL Cholesterol, Calc 54 HDL Cholesterol 81 Urine Color Urine Appearance Urine pH Ur Specific [place] Urine Protein Urine Glucose (UA) Urine Ketones Urine Blood Urine Nitrite Ur Leukocyte Esterase Urine Opiates Screen Urine Fentanyl Screen Ur Barbiturates Screen Ur Phencyclidine Scrn Ur Amphetamines Screen U Benzodiazepines Scrn Urine Cocaine Screen U Marijuana (THC) Screen Medications Medications Current Medications Acetaminophen (Acetaminophen 325 Mg Tablet) 650 mg PO Q6H PRN PRN Reason: Headache/Pain Mild Scale (1-3) Al Hydroxide/Mg Hydroxide (Magnesium Hydrox/Alum Hydrox 30 Ml Oral.Susp) 30 ml PO Q6H PRN PRN Reason: Heartburn/Nausea Chlorpromazine HCl (Chlorpromazine Hcl 25 Mg Tablet) 50 mg PO Q4H PRN PRN Reason: agitation Clonidine HCl (Clonidine Hcl 0.1 Mg Tablet) 0.1 mg PO Q2H PRN; Protocol PRN Reason: agitation/signs of opioid withdrawal Dicyclomine HCl (Dicyclomine Hcl 10 Mg Capsule) 10 mg PO QIDACHS PRN PRN Reason: cramps Folic Acid (Folic Acid 1 Mg Tablet) 1 mg PO DAILY [facility] Last Admin: 12/25/22 10:58 Dose: 1 mg Haloperidol (Haloperidol 5 Mg Tablet) 5 mg PO BID [facility] Last Admin: 12/25/22 10:17 Dose: Not Given Hydroxyzine HCl (Hydroxyzine Hcl 25 Mg Tablet) 25 mg PO Q6H PRN PRN Reason: Anxiety Lorazepam (Lorazepam 1 Mg Tablet) 1 mg PO Q4H PRN PRN Reason: severe anxiety Magnesium Hydroxide (Milk Of Magnesia 30 Ml Oral.Susp) 30 ml PO DAILY PRN PRN Reason: Constipation Nicotine (Nicotine 21 Mg Patch.Td24) 21 mg TRANSDERMA DAILY PRN PRN Reason: smoking cessation Nicotine Polacrilex (Nicotine Polacrilex 2 Mg Gum) 4 mg BUCCAL Q2H PRN PRN Reason: nicotine cravings Thiamine HCl (Thiamine Hcl 100 Mg Tablet) 100 mg PO DAILY [facility] Last Admin: 12/25/22 10:58 Dose: 100 mg Trazodone HCl (Trazodone Hcl 50 Mg Tablet) 50 mg PO BEDTIME MRX1 PRN PRN Reason: Insomnia Allergies Allergies Allergy/AdvReac Type Severity Reaction Status Date / Time morphine [MORPHINE] AdvReac Unknown NAUSEA Verified 12/10/22 19:56 Assessment & Plan Assessment & Plan (1) Opioid use disorder: Status: Acute Code(s): F11.90 - Opioid use, unspecified, uncomplicated (2) Cocaine use disorder: Status: Acute Code(s): F14.10 - Cocaine abuse, uncomplicated (3) Schizoaffective disorder, bipolar type: Status: Acute Code(s): F25.0 - Schizoaffective disorder, bipolar type Plan 12/24: attempt to give anti-psychotics. comfort meds for opioid and cocaine withdrawal. 12/25: refusing medications. period of agitation last night slamming doors and yelling (presumably @). continue current mgmt. Reason for continued inpatient stay Substantial Risk for: harm to self and inability to function Time Spent With Patient Time: Total time managing care of this patient today ____ minutes.
[2022-12-25 22:05] VITALS: RESP 16
--- NOTE | 2022-12-26 01:21 | PC.NURSE ---
COWS not completed at 2200 as pt declined to have vitals taken. No apparent signs of withdrawal noted. Pt denied any complaints or concerns.
--- NOTE | 2022-12-26 09:50 | PC.NURSE ---
pt refused vitals and scheduled 9am vitamins & haldol
--- NOTE | 2022-12-26 12:43 | PC.NURSE ---
Unable to assess COWS; pt refusing vitals and shakes head no when asked questions. Pt seems preoccupied and distracted. Pt noted to have vomited several times in the morning and again just before lunch (unsure if this is self induced). Denying all other symptoms and no other symptoms observed by nurse.
--- NOTE | 2022-12-26 13:00 | HO.PSYCHPN ---
Subjective Subjective Date of Service: 12/26/22 Reason For Visit: Psychosis Interim History: pacing, inducing vomiting in his bathroom. MD encouraged pt to take medication. per staff, laughing and self-dialoguing. serially flushing toilet. room littered with food. excessive food intake, then purges, then excessive food intake cycle. dry cracked feet, got lotion. refusing meds, no sleep in 48 hours. Mental Status Exam Mental Status Exam Narrative: adequately dressed and groomed. pacing the halls. minimally cooperative. speech decr in amount, incr latency. thoughts linear in response to questions but with delay. appears distracted. affect constricted, normo-intense, non-labile. no SI/HI/AVH expressed, but behaviors c/w at the least AH. Diagnostics Vital Signs (24Hr): Vital Signs - 24 hr 12/25/22 22:05 Respiratory Rate 16 BMI result Body Mass Index 23.3 Labs 12/23/22 09:53 12/23/22 09:53 Medications Medications Current Medications Acetaminophen (Acetaminophen 325 Mg Tablet) 650 mg PO Q6H PRN PRN Reason: Headache/Pain Mild Scale (1-3) Al Hydroxide/Mg Hydroxide (Magnesium Hydrox/Alum Hydrox 30 Ml Oral.Susp) 30 ml PO Q6H PRN PRN Reason: Heartburn/Nausea Chlorpromazine HCl (Chlorpromazine Hcl 25 Mg Tablet) 50 mg PO Q4H PRN PRN Reason: agitation Clonidine HCl (Clonidine Hcl 0.1 Mg Tablet) 0.1 mg PO Q2H PRN; Protocol PRN Reason: agitation/signs of opioid withdrawal Dicyclomine HCl (Dicyclomine Hcl 10 Mg Capsule) 10 mg PO QIDACHS PRN PRN Reason: cramps Folic Acid (Folic Acid 1 Mg Tablet) 1 mg PO DAILY [facility] Last Admin: 12/26/22 09:51 Dose: Not Given Haloperidol (Haloperidol 5 Mg Tablet) 5 mg PO BID [facility] Last Admin: 12/26/22 09:51 Dose: Not Given Hydroxyzine HCl (Hydroxyzine Hcl 25 Mg Tablet) 25 mg PO Q6H PRN PRN Reason: Anxiety Lorazepam (Lorazepam 1 Mg Tablet) 1 mg PO Q4H PRN PRN Reason: severe anxiety Magnesium Hydroxide (Milk Of Magnesia 30 Ml Oral.Susp) 30 ml PO DAILY PRN PRN Reason: Constipation Nicotine (Nicotine 21 Mg Patch.Td24) 21 mg TRANSDERMA DAILY PRN PRN Reason: smoking cessation Nicotine Polacrilex (Nicotine Polacrilex 2 Mg Gum) 4 mg BUCCAL Q2H PRN PRN Reason: nicotine cravings Thiamine HCl (Thiamine Hcl 100 Mg Tablet) 100 mg PO DAILY [facility] Last Admin: 12/26/22 09:51 Dose: Not Given Trazodone HCl (Trazodone Hcl 50 Mg Tablet) 50 mg PO BEDTIME MRX1 PRN PRN Reason: Insomnia Allergies Allergies Allergy/AdvReac Type Severity Reaction Status Date / Time morphine [MORPHINE] AdvReac Unknown NAUSEA Verified 12/10/22 19:56 Assessment & Plan Assessment & Plan (1) Opioid use disorder: Status: Acute Code(s): F11.90 - Opioid use, unspecified, uncomplicated (2) Cocaine use disorder: Status: Acute Code(s): F14.10 - Cocaine abuse, uncomplicated (3) Schizoaffective disorder, bipolar type: Status: Acute Code(s): F25.0 - Schizoaffective disorder, bipolar type Plan 12/24: attempt to give anti-psychotics. comfort meds for opioid and cocaine withdrawal. 12/25: refusing medications. period of agitation last night slamming doors and yelling (presumably @). continue current mgmt. 12/26: refusing meds. binging and purging. floridly psychotic. Reason for continued inpatient stay Substantial Risk for: harm to self and inability to function Time Spent With Patient Time: Total time managing care of this patient today ____ minutes.
[2022-12-26 19:55] VITALS: BP 113/61; PULSE 90; RESP 18; TEMP 36.6; O2SAT 99
[2022-12-26] MEDS: HaloperidoL 5 MG TABLET PO (20:12)
[2022-12-26] MEDS: LORazepam 1 MG TABLET PO (20:12)
[2022-12-27 08:00] VITALS: PULSE 92
[2022-12-27 09:15] VITALS: BP 132/72; PULSE 92; RESP 18; TEMP 36.7; O2SAT 99
[2022-12-27] MEDS: LORazepam 1 MG TABLET PO (09:25)
[2022-12-27] MEDS: HaloperidoL 5 MG TABLET PO (09:25)
[2022-12-27] MEDS: Thiamine HCL 100 MG TABLET PO (09:25)
[2022-12-27] MEDS: Folic Acid 1 MG TABLET PO (09:25)
--- NOTE | 2022-12-27 12:40 | HO.PSYCHPN ---
Subjective Subjective Date of Service: 12/27/22 Reason For Visit: Psychosis Interim History: calm, cooperative. some bizarre standing silently and motionless, delayed/distracted behaviors. more conversant than prior interviews. acknowledges having asked for meds last night and taken them, says it was to help him sleep. MD encourages his desire to sleep, suggests he take meds every night for sleep, says MD will schedule same meds he took last night for tonight, as he said they helped him sleep a little. per staff, pt did not sleep at all last night. he did ask for and received medication, haldol and ativan. guarded, denies Sx, eating well, slept OK. not attending groups. refused check-in. Mental Status Exam Mental Status Exam Narrative: adequately dressed and groomed. pacing the halls. more cooperative. speech decr in amount, incr latency. thoughts linear in response to questions but with delay. appears distracted. affect constricted, normo-intense, non-labile. no SI/HI/AVH expressed, but behaviors c/w at the least AH. Diagnostics Vital Signs (24Hr): Vital Signs - 24 hr 12/26/22 19:55 Temperature 98 F Pulse Rate 90 Respiratory Rate 18 Blood Pressure 113/61 Pulse Oximetry 99 Oxygen Delivery Method Room Air BMI result Body Mass Index 23.3 Labs 12/23/22 09:53 12/23/22 09:53 Medications Medications Current Medications Acetaminophen (Acetaminophen 325 Mg Tablet) 650 mg PO Q6H PRN PRN Reason: Headache/Pain Mild Scale (1-3) Al Hydroxide/Mg Hydroxide (Magnesium Hydrox/Alum Hydrox 30 Ml Oral.Susp) 30 ml PO Q6H PRN PRN Reason: Heartburn/Nausea Benztropine Mesylate (Benztropine Mesylate 1 Mg Tablet) 1 mg PO BEDTIME [facility]ON[facility] Chlorpromazine HCl (Chlorpromazine Hcl 25 Mg Tablet) 50 mg PO Q4H PRN PRN Reason: agitation Clonidine HCl (Clonidine Hcl 0.1 Mg Tablet) 0.1 mg PO Q2H PRN; Protocol PRN Reason: agitation/signs of opioid withdrawal Dicyclomine HCl (Dicyclomine Hcl 10 Mg Capsule) 10 mg PO QIDACHS PRN PRN Reason: cramps Folic Acid (Folic Acid 1 Mg Tablet) 1 mg PO DAILY [facility] Last Admin: 12/27/22 09:25 Dose: 1 mg Haloperidol (Haloperidol 5 Mg Tablet) 10 mg PO BEDTIME [facility] Hydroxyzine HCl (Hydroxyzine Hcl 25 Mg Tablet) 25 mg PO Q6H PRN PRN Reason: Anxiety Lorazepam (Lorazepam 1 Mg Tablet) 1 mg PO Q4H PRN PRN Reason: severe anxiety Last Admin: 12/27/22 09:25 Dose: 1 mg Lorazepam (Lorazepam 1 Mg Tablet) 2 mg PO BEDTIME [facility] Magnesium Hydroxide (Milk Of Magnesia 30 Ml Oral.Susp) 30 ml PO DAILY PRN PRN Reason: Constipation Nicotine (Nicotine 21 Mg Patch.Td24) 21 mg TRANSDERMA DAILY PRN PRN Reason: smoking cessation Nicotine Polacrilex (Nicotine Polacrilex 2 Mg Gum) 4 mg BUCCAL Q2H PRN PRN Reason: nicotine cravings Thiamine HCl (Thiamine Hcl 100 Mg Tablet) 100 mg PO DAILY [facility] Last Admin: 12/27/22 09:25 Dose: 100 mg Trazodone HCl (Trazodone Hcl 50 Mg Tablet) 50 mg PO BEDTIME MRX1 PRN PRN Reason: Insomnia Allergies Allergies Allergy/AdvReac Type Severity Reaction Status Date / Time morphine [MORPHINE] AdvReac Unknown NAUSEA Verified 12/10/22 19:56 Assessment & Plan Assessment & Plan (1) Opioid use disorder: Status: Acute Code(s): F11.90 - Opioid use, unspecified, uncomplicated (2) Cocaine use disorder: Status: Acute Code(s): F14.10 - Cocaine abuse, uncomplicated (3) Schizoaffective disorder, bipolar type: Status: Acute Code(s): F25.0 - Schizoaffective disorder, bipolar type Plan 12/24: attempt to give anti-psychotics. comfort meds for opioid and cocaine withdrawal. 12/25: refusing medications. period of agitation last night slamming doors and yelling (presumably @). continue current mgmt. 12/26: refusing meds. binging and purging. floridly psychotic. 12/27: had meds last night for sleep, per his request. schedule all haldol tonight with ativan and cogentin. a bit more interactive today, remains delayed and distracted. no binging/purgin behaviors or agitated behaviors described by RN report today. Reason for continued inpatient stay Substantial Risk for: harm to self, inability to function and rapid decompensation Time Spent With Patient Time: Total time managing care of this patient today __25__ minutes.
[2022-12-27 18:00] VITALS: RESP 16
--- NOTE | 2022-12-27 21:46 | PC.NURSE ---
pt is exhibiting withdrawal symptoms including sweating, restlessness, and anxiety. pt has been asking the same question over and over again and looks confused. pt forgets what he did several minutes ago. pt refused PO PRN medications and refused nighttime medications.
--- NOTE | 2022-12-27 23:41 | PC.NURSE ---
Patient refused COWS test and vital signs.
[2022-12-28 08:00] VITALS: BP 130/86; PULSE 82; PULSE 84; RESP 18; TEMP 36.8; O2SAT 100
[2022-12-28] MEDS: chlorproMAZINE HCl 25 MG TABLET 50 MG PO ×2 (11:16→22:34)
[2022-12-28] MEDS: Divalproex Sodium 250 MG TABLET.DR PO ×2 (11:16→20:29)
[2022-12-28] MEDS: LORazepam 1 MG TABLET PO ×2 (11:16→22:35)
--- NOTE | 2022-12-28 11:18 | PC.NURSE ---
Pt began fast pacing in green, then went to his room and threw a cup of coffee at the wall. Pt requested medication for anxiety .
--- NOTE | 2022-12-28 14:59 | P.PNPSI_ITS ---
Subjective Subjective Date of Service: 12/28/22 Reason For Visit: Psychosis Subjective Notes: 3 Day (12/27-12/30) Interim History: TDN Filed 12/27/22. Team reports perseverative regarding discharge, restless, disorganized with confusion. Pacing and exit seeking last evening, team reports growling in the green. Pt refused meds last night with active withdrawal sx. S leep was poor ~1.5 hours, refused COWS. Today, he has thrown two coffee cups on the unit. Pt in his room talking with his director social service. Denies sx, then reports withdrawal sx, anxiety, asks for medications. Discussed options. Review with the team, family reporting to team 17 overdose attempts within the past 2 months. Attempted to discuss with pt who reports he is not suicidal, these just happene d when he was using, not intentional. Giggles with an anxious edge. Appears paranoid, fearful looking at times, guarded Medication Compliance: Intermittent Side effects from medications: No Attending Groups: No Review of Systems Acute medical concerns: No Medical Review of Systems: unchanged Review of Systems Review of Systems Yes Unobtainable due to mental status Mental Status Exam Mental Status Exam Patient Appearance: Fatigued Patient Orientation: Person and Place Level of Consciousness: Alert Patient Behavior: Guarded, Talkative, Suspicious, Wandering, Anxious, Resistive to Care, Avoidant, Fatigued, Distractible, Good Eye Contact (Intense at times) and Impulsive Mood Description: Withdrawn, Fearful, Labile and Apprehensive Affect Description: Labile Patient Cognition Impaired: Yes Ability to Follow Directions: Fair Speech Pattern: Spontaneous Speech and Delayed Memory Description: Remote Impaired Hallucinations: None (denies yet questionable) Delusions: Present Thought Process: Distracted and Evasive Thought Content: positive for Circumstantial, positive for Tangential, positive for Evasive and positive for Suicidal Ideation (denies) Depressive Symptoms: Increased Anxiety, Increased Irritability, Difficulty Sleeping, Loss of Int. in Activity, Isolating-Friends/Family, Increased Fatigue, Thoughts of /Suicide (denies) and Difficulty Concentrating Abnormal Motor Activity Signs and Symptoms: Agitation and Restlessness Judgement: Poor Diagnostics Vital Signs (24Hr): Vital Signs - 24 hr 12/27/22 18:00 12/28/22 08:00 Temperature 98.2 F Pulse Rate 84 Respiratory Rate 16 18 Blood Pressure 130/86 Pulse Oximetry 100 Oxygen Delivery Method Room Air BMI result Body Mass Index 23.3 Labs 12/23/22 09:53 12/23/22 09:53 Medications Medications Current Medications Acetaminophen (Acetaminophen 325 Mg Tablet) 650 mg PO Q6H PRN PRN Reason: Headache/Pain Mild Scale (1-3) Al Hydroxide/Mg Hydroxide (Magnesium Hydrox/Alum Hydrox 30 Ml Oral.Susp) 30 ml PO Q6H PRN PRN Reason: Heartburn/Nausea Benztropine Mesylate (Benztropine Mesylate 1 Mg Tablet) 1 mg PO BEDTIME [facility] Last Admin: 12/27/22 20:55 Dose: Not Given Chlorpromazine HCl (Chlorpromazine Hcl 25 Mg Tablet) 50 mg PO Q4H PRN PRN Reason: agitation Last Admin: 12/28/22 11:16 Dose: 50 mg Clonidine HCl (Clonidine Hcl 0.1 Mg Tablet) 0.1 mg PO Q2H PRN; Protocol PRN Reason: agitation/signs of opioid withdrawal Dicyclomine HCl (Dicyclomine Hcl 10 Mg Capsule) 10 mg PO QIDACHS PRN PRN Reason: cramps Divalproex Sodium (Divalproex Sodium 250 Mg Tablet.) 250 mg PO BID [facility] Last Admin: 12/28/22 11:16 Dose: 250 mg Divalproex Sodium (Divalproex Sodium 250 Mg Tablet.Dr) 250 mg PO BID [facility] Folic Acid (Folic Acid 1 Mg Tablet) 1 mg PO DAILY [facility] Last Admin: 12/28/22 09:48 Dose: Not Given Haloperidol (Haloperidol 5 Mg Tablet) 10 mg PO BEDTIME [facility] Last Admin: 12/27/22 20:55 Dose: Not Given Hydroxyzine HCl (Hydroxyzine Hcl 25 Mg Tablet) 25 mg PO Q6H PRN PRN Reason: Anxiety Lorazepam (Lorazepam 1 Mg Tablet) 1 mg PO Q4H PRN PRN Reason: severe anxiety Last Admin: 12/28/22 11:16 Dose: 1 mg Lorazepam (Lorazepam 1 Mg Tablet) 2 mg PO BEDTIME [facility] Last Admin: 12/27/22 20:56 Dose: Not Given Magnesium Hydroxide (Milk Of Magnesia 30 Ml Oral.Susp) 30 ml PO DAILY PRN PRN Reason: Constipation Nicotine (Nicotine 21 Mg Patch.Td24) 21 mg TRANSDERMA DAILY PRN PRN Reason: smoking cessation Nicotine Polacrilex (Nicotine Polacrilex 2 Mg Gum) 4 mg BUCCAL Q2H PRN PRN Reason: nicotine cravings Thiamine HCl (Thiamine Hcl 100 Mg Tablet) 100 mg PO DAILY [facility] Last Admin: 12/28/22 09:49 Dose: Not Given Trazodone HCl (Trazodone Hcl 50 Mg Tablet) 50 mg PO BEDTIME MRX1 PRN PRN Reason: Insomnia Allergies Allergies Allergy/AdvReac Type Severity Reaction Status Date / Time morphine [MORPHINE] AdvReac Unknown NAUSEA Verified 12/10/22 19:56 Assessment & Plan Assessment & Plan (1) Opioid use disorder: Status: Acute Code(s): F11.90 - Opioid use, unspecified, uncomplicated (2) Cocaine use disorder: Status: Acute Code(s): F14.10 - Cocaine abuse, uncomplicated (3) Schizoaffective disorder, bipolar type: Status: Acute Code(s): F25.0 - Schizoaffective disorder, bipolar type Plan 12/24: attempt to give anti-psychotics. comfort meds for opioid and cocaine withdrawal. 12/25: refusing medications. period of agitation last night slamming doors and yelling (presumably @[facility]). continue current mgmt. 12/26: refusing meds. binging and purging. floridly psychotic. 12/27: had meds last night for sleep, per his request. schedule all haldol tonight with ativan and cogentin. a bit more interactive today, remains delayed and distracted. no binging/purgin behaviors or agitated behaviors described by RN report today. 12/28: refused meds last night. Today asks for meds for sx mgt- aggressive today- threw two coffee cups. Begin Depakote 250 mg bid. Encouraged compliance with regime Patient educated on: medication risk/benefits and therapeutic strategies Informed Consent: further education needed Reason for continued inpatient stay Substantial Risk for: harm to self, inability to function and rapid decompensation Time Spent With Patient Time: Total time managing care of this patient today ____ minutes.
--- NOTE | 2022-12-28 16:55 | PC.NURSE ---
Pt pacing in green changing shirt frequently, offered medication for anxiety Pt refused.
[2022-12-28 17:00] VITALS: BP 116/75; PULSE 88; RESP 18; O2SAT 100
[2022-12-28] MEDS: HaloperidoL 5 MG TABLET 10 MG PO (20:26)
[2022-12-28] MEDS: LORazepam 1 MG TABLET 2 MG PO (20:26)
[2022-12-28 20:27] VITALS: BP 122/77; PULSE 100; TEMP 36.8; O2SAT 98
[2022-12-28] MEDS: hydrOXYzine HCL 25 MG TABLET PO (21:39)
[2022-12-29 00:23] VITALS: BP 130/72; PULSE 100; O2SAT 95
[2022-12-29 08:21] VITALS: BP 114/62; PULSE 67; RESP 18; TEMP 36.7; O2SAT 96
[2022-12-29] MEDS: methADONE HCl 20 MG/2 ML ORAL.CONC 30 MG PO (11:56)
--- NOTE | 2022-12-29 12:59 | HO.PSYCHPN ---
Subjective Subjective Date of Service: 12/29/22 Reason For Visit: Psychosis Subjective Notes: Mcintyre Warning Interim History: pt seen in his room. superficially cooperative and engaged. informed of concern for his safety, need to file for commitment, mcintyre warning given. pt simply looked at MD and said OK after most pieces of information were delivered. broached that RADHA had informed MD that pt was craving opioids and was interested in methadone. pt agreeable to start methadone 30 mg daily. per staff, 3-day notice up 12/30. anx 10. throwing coffee yesterday. pacing, mumbling to self. took VPA, haldol, ativan at [facility]. got thorazine, ativan, hydroxyzine overnight. slept [id number]. refused morning meds today. agitated most of the day yesterday. Mental Status Exam Mental Status Exam Narrative: adequately dressed and groomed. pacing the halls. more cooperative. speech decr in amount, incr latency. thoughts linear in response to questions but with delay. appears distracted. affect constricted, normo-intense, non-labile. no SI/HI/AVH expressed, but behaviors c/w at the least AH. Diagnostics Vital Signs (24Hr): Vital Signs - 24 hr 12/28/22 17:00 12/28/22 20:27 12/29/22 00:23 Temperature 98.3 F Pulse Rate 88 100 100 Respiratory Rate 18 Blood Pressure 116/75 122/77 130/72 Pulse Oximetry 100 98 95 Oxygen Delivery Method Room Air Room Air Room Air 12/29/22 08:21 Temperature 98.0 F Pulse Rate 67 Respiratory Rate 18 Blood Pressure 114/62 Pulse Oximetry 96 Oxygen Delivery Method Room Air BMI result Body Mass Index 23.3 Labs 12/23/22 09:53 12/23/22 09:53 Medications Medications Current Medications Acetaminophen (Acetaminophen 325 Mg Tablet) 650 mg PO Q6H PRN PRN Reason: Headache/Pain Mild Scale (1-3) Al Hydroxide/Mg Hydroxide (Magnesium Hydrox/Alum Hydrox 30 Ml Oral.Susp) 30 ml PO Q6H PRN PRN Reason: Heartburn/Nausea Benztropine Mesylate (Benztropine Mesylate 1 Mg Tablet) 1 mg PO BEDTIME [facility] Last Admin: 12/28/22 20:29 Dose: Not Given Chlorpromazine HCl (Chlorpromazine Hcl 25 Mg Tablet) 50 mg PO Q4H PRN PRN Reason: agitation Last Admin: 12/28/22 22:34 Dose: 50 mg Clonidine HCl (Clonidine Hcl 0.1 Mg Tablet) 0.1 mg PO Q2H PRN; Protocol PRN Reason: agitation/signs of opioid withdrawal Dicyclomine HCl (Dicyclomine Hcl 10 Mg Capsule) 10 mg PO QIDACHS PRN PRN Reason: cramps Divalproex Sodium (Divalproex Sodium 250 Mg Tablet.Dr) 250 mg PO BID [facility] Last Admin: 12/29/22 09:18 Dose: Not Given Folic Acid (Folic Acid 1 Mg Tablet) 1 mg PO DAILY [facility] Last Admin: 12/29/22 09:18 Dose: Not Given Haloperidol (Haloperidol 5 Mg Tablet) 10 mg PO BEDTIME [facility] Last Admin: 12/28/22 20:26 Dose: 10 mg Hydroxyzine HCl (Hydroxyzine Hcl 25 Mg Tablet) 25 mg PO Q6H PRN PRN Reason: Anxiety Last Admin: 12/28/22 21:39 Dose: 25 mg Lorazepam (Lorazepam 1 Mg Tablet) 1 mg PO Q4H PRN PRN Reason: severe anxiety Last Admin: 12/28/22 22:35 Dose: 1 mg Lorazepam (Lorazepam 1 Mg Tablet) 2 mg PO BEDTIME [facility] Last Admin: 12/28/22 20:26 Dose: 2 mg Magnesium Hydroxide (Milk Of Magnesia 30 Ml Oral.Susp) 30 ml PO DAILY PRN PRN Reason: Constipation Methadone HCl (Methadone Hcl 20 Mg/2 Ml Oral.Conc) 30 mg PO DAILY [facility] Last Admin: 12/29/22 11:56 Dose: 30 mg Nicotine (Nicotine 21 Mg Patch.Td24) 21 mg TRANSDERMA DAILY PRN PRN Reason: smoking cessation Nicotine Polacrilex (Nicotine Polacrilex 2 Mg Gum) 4 mg BUCCAL Q2H PRN PRN Reason: nicotine cravings Thiamine HCl (Thiamine Hcl 100 Mg Tablet) 100 mg PO DAILY [facility] Last Admin: 12/29/22 09:18 Dose: Not Given Trazodone HCl (Trazodone Hcl 50 Mg Tablet) 50 mg PO BEDTIME MRX1 PRN PRN Reason: Insomnia Allergies Allergies Allergy/AdvReac Type Severity Reaction Status Date / Time morphine [MORPHINE] AdvReac Unknown NAUSEA Verified 12/10/22 19:56 Assessment & Plan Assessment & Plan (1) Opioid use disorder: Status: Acute Code(s): F11.90 - Opioid use, unspecified, uncomplicated (2) Cocaine use disorder: Status: Acute Code(s): F14.10 - Cocaine abuse, uncomplicated (3) Schizoaffective disorder, bipolar type: Status: Acute Code(s): F25.0 - Schizoaffective disorder, bipolar type Plan 12/24: attempt to give anti-psychotics. comfort meds for opioid and cocaine withdrawal. 12/25: refusing medications. period of agitation last night slamming doors and yelling (presumably @[facility]). continue current mgmt. 12/26: refusing meds. binging and purging. floridly psychotic. 12/27: had meds last night for sleep, per his request. schedule all haldol tonight with ativan and cogentin. a bit more interactive today, remains delayed and distracted. no binging/purgin behaviors or agitated behaviors described by RN report today. 12/28: refused meds last night. Today asks for meds for sx mgt- aggressive today-threw two coffee cups. Begin Depakote 250 mg bid. 12/29: got multiple meds last NOC and overnight per his request. slept 2 hours. refusing meds this morning. commitment paperwork completed. 3-day notice expires tomorrow. c/o opioid craving, asked for methadone. methadone 30 mg daily started today. Reason for continued inpatient stay Substantial Risk for: harm to self, inability to function and rapid decompensation Time Spent With Patient Time: Total time managing care of this patient today __35__ minutes.
--- NOTE | 2022-12-29 15:00 | PC.NURSE ---
Pt. approached this clinical writer at 1420 to go into the nourishment room, Pt. was reminded about his plan, then stated i don't understand why you guys are doing this to me for . When reminded about his plan once again , Pt. stated If the president of the hospital was here he would let me go into that room. Pt. was redirected then reminded again about his plan. Pt. became agitated and attempted to strike staff. Pt. was redirected to his room. security notified, spoke to Pt. Charged RN notified, no further behavioral issues at this time.
[2022-12-29 20:17] VITALS: BP 132/80; PULSE 68; TEMP 36.2; O2SAT 97
[2022-12-29] MEDS: Acetaminophen 325 MG TABLET 650 MG PO (21:40)
[2022-12-29] MEDS: LORazepam 1 MG TABLET 2 MG PO (21:56)
[2022-12-30] VITALS: BP 138/78; PULSE 100
[2022-12-30] MEDS: HaloperidoL 5 MG TABLET 10 MG PO ×2 (01:50→20:39)
[2022-12-30] MEDS: traZODone HCL 50 MG TABLET PO ×2 (03:50→21:03)
--- NOTE | 2022-12-30 06:18 | PC.NURSE ---
[facility] haldol given at 0150. initially refused then later accepted at night. computer down time this evening.
[2022-12-30 09:39] VITALS: BMI 25.6
[2022-12-30 10:49] VITALS: BP 103/59; PULSE 90; RESP 20; TEMP 36.8; O2SAT 98
--- NOTE | 2022-12-30 13:11 | P.PNPSI_ITS ---
Subjective Subjective Date of Service: 12/30/22 Reason For Visit: Psychosis Interim History: pt appears to find it difficult to comprehend that he will not be discharged today. reviewed that hospital has filed for commitment and medications for him and he will not be discharging today, he will be assigned a improvement advisor, that the hearing is likely to be in a week. pt approaches MD a couple of times on the unit for similar conversation, says this isn't how the plan was supposed to go, this isn't what's supposed to happen. per staff, pacing, nervous. c/o withdrawal symptoms. swung at [facility] of restriction on getting access to kitchen for coffee. defaced laundry list. refusing to wear shirt while pacing green, squinting while walking, had to be redirected due to hands down his pants. overnight doing everything very loudly, making bed loudly, talking loudly; upset other pts, one of whom banged on the wall and yelled at him to be quiet. got haldol at 0130. got ativan, tylenol, trazodone after that. fell asleep at 0530. Mental Status Exam Mental Status Exam Narrative: adequately dressed and groomed. pacing the halls. cooperative. speech nml in amount, decr latency. thoughts somewhat disorganized, difficult to follow. appears unable to keep his thoughts together. affect constricted, normo- intense, non-labile. no SI/HI/AVH expressed, but behaviors c/w at the least AH. Diagnostics Vital Signs (24Hr): Vital Signs - 24 hr 12/29/22 20:17 12/30/22 00:00 12/30/22 10:49 Temperature 97.2 F 98.2 F Pulse Rate 68 100 90 Respiratory Rate 20 Blood Pressure 132/80 138/78 103/59 L Pulse Oximetry 97 98 Oxygen Delivery Method Room Air Room Air BMI result Body Mass Index 25.6 Labs 12/23/22 09:53 12/23/22 09:53 Medications Medications Current Medications Acetaminophen (Acetaminophen 325 Mg Tablet) 650 mg PO Q6H PRN PRN Reason: Headache/Pain Mild Scale (1-3) Last Admin: 12/29/22 21:40 Dose: 650 mg Al Hydroxide/Mg Hydroxide (Magnesium Hydrox/Alum Hydrox 30 Ml Oral.Susp) 30 ml PO Q6H PRN PRN Reason: Heartburn/Nausea Benztropine Mesylate (Benztropine Mesylate 1 Mg Tablet) 1 mg PO BEDTIME [facility] Last Admin: 12/30/22 06:14 Dose: Not Given Chlorpromazine HCl (Chlorpromazine Hcl 25 Mg Tablet) 50 mg PO Q4H PRN PRN Reason: agitation Last Admin: 12/28/22 22:34 Dose: 50 mg Clonidine HCl (Clonidine Hcl 0.1 Mg Tablet) 0.1 mg PO Q2H PRN; Protocol PRN Reason: agitation/signs of opioid withdrawal Dicyclomine HCl (Dicyclomine Hcl 10 Mg Capsule) 10 mg PO QIDACHS PRN PRN Reason: cramps Divalproex Sodium (Divalproex Sodium 250 Mg Tablet.Dr) 250 mg PO BID [facility] Last Admin: 12/30/22 10:52 Dose: Not Given Folic Acid (Folic Acid 1 Mg Tablet) 1 mg PO DAILY [facility] Last Admin: 12/30/22 10:52 Dose: Not Given Haloperidol (Haloperidol 5 Mg Tablet) 10 mg PO BEDTIME [facility] Last Admin: 12/30/22 01:50 Dose: 10 mg Hydroxyzine HCl (Hydroxyzine Hcl 25 Mg Tablet) 25 mg PO Q6H PRN PRN Reason: Anxiety Last Admin: 12/28/22 21:39 Dose: 25 mg Lorazepam (Lorazepam 1 Mg Tablet) 2 mg PO BEDTIME [facility] Last Admin: 12/29/22 21:56 Dose: 2 mg Magnesium Hydroxide (Milk Of Magnesia 30 Ml Oral.Susp) 30 ml PO DAILY PRN PRN Reason: Constipation Methadone HCl (Methadone Hcl 20 Mg/2 Ml Oral.Conc) 30 mg PO DAILY [facility] Last Admin: 12/30/22 11:47 Dose: Not Given Nicotine (Nicotine 21 Mg Patch.Td24) 21 mg TRANSDERMA DAILY PRN PRN Reason: smoking cessation Nicotine Polacrilex (Nicotine Polacrilex 2 Mg Gum) 4 mg BUCCAL Q2H PRN PRN Reason: nicotine cravings Thiamine HCl (Thiamine Hcl 100 Mg Tablet) 100 mg PO DAILY [facility] Last Admin: 12/30/22 10:52 Dose: Not Given Trazodone HCl (Trazodone Hcl 50 Mg Tablet) 50 mg PO BEDTIME MRX1 PRN PRN Reason: Insomnia Last Admin: 12/30/22 03:50 Dose: 50 mg Allergies Allergies Allergy/AdvReac Type Severity Reaction Status Date / Time morphine [MORPHINE] AdvReac Unknown NAUSEA Verified 12/10/22 19:56 Assessment & Plan Assessment & Plan (1) Opioid use disorder: Status: Acute Code(s): F11.90 - Opioid use, unspecified, uncomplicated (2) Cocaine use disorder: Status: Acute Code(s): F14.10 - Cocaine abuse, uncomplicated (3) Schizoaffective disorder, bipolar type: Status: Acute Code(s): F25.0 - Schizoaffective disorder, bipolar type Plan 12/24: attempt to give anti-psychotics. comfort meds for opioid and cocaine withdrawal. 12/25: refusing medications. period of agitation last night slamming doors and yelling (presumably @[facility]). continue current mgmt. 12/26: refusing meds. binging and purging. floridly psychotic. 12/27: had meds last night for sleep, per his request. schedule all haldol tonight with ativan and cogentin. a bit more interactive today, remains delayed and distracted. no binging/purgin behaviors or agitated behaviors described by RN report today. 12/28: refused meds last night. Today asks for meds for sx mgt- aggressive today-threw two coffee cups. Begin Depakote 250 mg bid. 12/29: got multiple meds last NOC and overnight per his request. slept 2 hours. refusing meds this morning. commitment paperwork completed. 3-day notice expires tomorrow. c/o opioid craving, asked for methadone. methadone 30 mg daily started today. 12/30: filed for commitment today. haldol and ativan per his request last night. appears in disbelief that he will not be discharged today. Reason for continued inpatient stay Substantial Risk for: harm to self, harm to others, inability to function and rapid decompensation Time Spent With Patient Time: Total time managing care of this patient today __35__ minutes.
[2022-12-30 20:10] VITALS: BP 111/58; PULSE 82; RESP 18; TEMP 36.6; O2SAT 99
[2022-12-30] MEDS: LORazepam 1 MG TABLET 2 MG PO (20:38)
[2022-12-30] MEDS: Divalproex Sodium 250 MG TABLET.DR PO (20:39)
[2022-12-30] MEDS: Benztropine Mesylate 1 MG TABLET PO (20:41)
[2022-12-31] VITALS (7 sets, daily range): BP systolic 113–140; BP diastolic 56–81; PULSE 79–120; RESP 16–19; TEMP 36.5–37; O2SAT 96–97
[2022-12-31] MEDS: Haloperidol Lactate 5 MG/ML VIAL 10 MG IM (10:38)
[2022-12-31] MEDS: LORazepam 2 MG/ML VIAL IM (10:38)
[2022-12-31] MEDS: diphenhydrAMINE HCL 50 MG/ML VIAL IM (10:40)
--- NOTE | 2022-12-31 10:49 | PC.NURSE ---
Patient escalating in milieu, pacing, clenching fists, approaching staff and swearing at them. Patient had been offered PRN medications and refused. Patient shortly after came to nurses station and demanded to be discharged, social work explained to patient that they were not discharging and that the hospital had filed in court and that the patient's court date was next week. Patient began hitting the glass at the nurses station, demanding court today, patient stormed away from nurses station. Security was called for assistance and provider notified, medications were ordered. During the time medications being prepared patient came out of room threw a sweater at security and walked back to room. This RN and two other RNs went with security to administer medications, patient at first pacing in room clenching fists but was able to be redirected to sit on the bed, security held patient's hands in a supportive manner while IMs were administered. Patient was compliant with medication administration without need for physical restraint.
--- NOTE | 2022-12-31 12:31 | P.PNPSI_ITS ---
Subjective Subjective Date of Service: 12/31/22 Reason For Visit: Psychosis Interim History: agitated this morning, banging on nursing station demanding to leave. given IM haldol 10, ativan 2, benadryl 50. calm for a time after, then several hours later agitated again, ordered thorazine 100 mg IM. seen in green, interacts briefly with hand sign writer re where to place soiled linens. per staff, slept a lot yesterday. eating well. isolative. RIS. suspicious. irritable. poor sleep. refused all morning meds including methadone. Mental Status Exam Mental Status Exam Narrative: adequately dressed and groomed. pacing the halls. variably cooperative. speech nml in amount, decr latency. thoughts somewhat disorganized, difficult to follow. appears unable to keep his thoughts together. affect constricted, normo-intense, non-labile. no SI/HI/AVH expressed, but behaviors c/w at the least AH. Diagnostics Vital Signs (24Hr): Vital Signs - 24 hr 12/30/22 20:10 12/31/22 08:00 12/31/22 10:38 Temperature 97.9 F 97.8 F Pulse Rate 82 81 Respiratory Rate 18 18 16 Blood Pressure 111/58 L 113/56 L Pulse Oximetry 99 97 Oxygen Delivery Method Room Air Room Air 12/31/22 10:53 12/31/22 11:08 12/31/22 11:23 Temperature 97.7 F 97.9 F Pulse Rate 79 120 H Respiratory Rate 16 16 16 Blood Pressure 140/61 H 139/81 Pulse Oximetry 97 96 Oxygen Delivery Method Room Air Room Air BMI result Body Mass Index 25.6 Labs 12/23/22 09:53 12/23/22 09:53 Medications Medications Current Medications Acetaminophen (Acetaminophen 325 Mg Tablet) 650 mg PO Q6H PRN PRN Reason: Headache/Pain Mild Scale (1-3) Last Admin: 12/29/22 21:40 Dose: 650 mg Al Hydroxide/Mg Hydroxide (Magnesium Hydrox/Alum Hydrox 30 Ml Oral.Susp) 30 ml PO Q6H PRN PRN Reason: Heartburn/Nausea Benztropine Mesylate (Benztropine Mesylate 1 Mg Tablet) 1 mg PO BEDTIME [facility] Last Admin: 12/30/22 20:41 Dose: 1 mg Chlorpromazine HCl (Chlorpromazine Hcl 25 Mg Tablet) 50 mg PO Q4H PRN PRN Reason: agitation Last Admin: 12/28/22 22:34 Dose: 50 mg Clonidine HCl (Clonidine Hcl 0.1 Mg Tablet) 0.1 mg PO Q2H PRN; Protocol PRN Reason: agitation/signs of opioid withdrawal Dicyclomine HCl (Dicyclomine Hcl 10 Mg Capsule) 10 mg PO QIDACHS PRN PRN Reason: cramps Divalproex Sodium (Divalproex Sodium 250 Mg Tablet.Dr) 250 mg PO BID [facility] Last Admin: 12/31/22 08:34 Dose: Not Given Folic Acid (Folic Acid 1 Mg Tablet) 1 mg PO DAILY [facility] Last Admin: 12/31/22 08:34 Dose: Not Given Haloperidol (Haloperidol 5 Mg Tablet) 10 mg PO BEDTIME [facility] Last Admin: 12/30/22 20:39 Dose: 10 mg Hydroxyzine HCl (Hydroxyzine Hcl 25 Mg Tablet) 25 mg PO Q6H PRN PRN Reason: Anxiety Last Admin: 12/28/22 21:39 Dose: 25 mg Lorazepam (Lorazepam 1 Mg Tablet) 2 mg PO BEDTIME [facility] Last Admin: 12/30/22 20:38 Dose: 2 mg Magnesium Hydroxide (Milk Of Magnesia 30 Ml Oral.Susp) 30 ml PO DAILY PRN PRN Reason: Constipation Methadone HCl (Methadone Hcl 20 Mg/2 Ml Oral.Conc) 30 mg PO DAILY [facility] Last Admin: 12/31/22 08:34 Dose: Not Given Nicotine (Nicotine 21 Mg Patch.Td24) 21 mg TRANSDERMA DAILY PRN PRN Reason: smoking cessation Nicotine Polacrilex (Nicotine Polacrilex 2 Mg Gum) 4 mg BUCCAL Q2H PRN PRN Reason: nicotine cravings Thiamine HCl (Thiamine Hcl 100 Mg Tablet) 100 mg PO DAILY [facility] Last Admin: 12/31/22 08:34 Dose: Not Given Trazodone HCl (Trazodone Hcl 50 Mg Tablet) 50 mg PO BEDTIME MRX1 PRN PRN Reason: Insomnia Last Admin: 12/30/22 21:03 Dose: 50 mg Allergies Allergies Allergy/AdvReac Type Severity Reaction Status Date / Time morphine [MORPHINE] AdvReac Unknown NAUSEA Verified 12/10/22 19:56 Assessment & Plan Assessment & Plan (1) Opioid use disorder: Status: Acute Code(s): F11.90 - Opioid use, unspecified, uncomplicated (2) Cocaine use disorder: Status: Acute Code(s): F14.10 - Cocaine abuse, uncomplicated (3) Schizoaffective disorder, bipolar type: Status: Acute Code(s): F25.0 - Schizoaffective disorder, bipolar type Plan 12/24: attempt to give anti-psychotics. comfort meds for opioid and cocaine withdrawal. 12/25: refusing medications. period of agitation last night slamming doors and yelling (presumably @AH). continue current mgmt. 12/26: refusing meds. binging and purging. floridly psychotic. 12/27: had meds last night for sleep, per his request. schedule all haldol tonight with ativan and cogentin. a bit more interactive today, remains delayed and distracted. no binging/purgin behaviors or agitated behaviors described by RN report today. 12/28: refused meds last night. Today asks for meds for sx mgt- aggressive today- threw two coffee cups. Begin Depakote 250 mg bid. 12/29: got multiple meds last NOC and overnight per his request. slept 2 hours. refusing meds this morning. commitment paperwork completed. 3-day notice expires tomorrow. c/o opioid craving, asked for methadone. methadone 30 mg daily started today. 12/30: filed for commitment today. haldol and ativan per his request last night. appears in disbelief that he will not be discharged today. 12/31: demanding to leave, getting agitated, banging on nursing station, slamming doors in his room. given IMs x 2, haldol 10 ativan 2 benadryl 50 for first and thorazine 100 for second. Reason for continued inpatient stay Substantial Risk for: harm to self, harm to others, inability to function and rapid decompensation Time Spent With Patient Time: Total time managing care of this patient today __35__ minutes.
[2022-12-31] MEDS: chlorproMAZINE HCl 25 MG/ML AMPUL 100 MG IM (12:39)
--- NOTE | 2022-12-31 12:45 | PC.NURSE ---
Patient pacing in hallway, upset about the length of time for lunch to come, patient then paced in hallway before attempting to open the nurses station door. when he could not open the door he asked to speak with this RN in the hallway, posturing at staff while balling his fist. Patient returned to room, slammed his door and was yelling. Provider notified, medication ordered, security called for standby assist. Patient agitated and upset about taking medication, made statements that he sees all of us with elongated faces, ? visual hallucinations. Patient was able to be convinced to sit on his bed and was able to be compliant with injections with security holding hands for support.
[2022-12-31] MEDS: methADONE HCl 20 MG/2 ML ORAL.CONC 30 MG PO (13:11)
[2023-01-01] MEDS: Folic Acid 1 MG TABLET PO (08:12)
[2023-01-01] MEDS: Thiamine HCL 100 MG TABLET PO (08:12)
[2023-01-01] MEDS: chlorproMAZINE HCl 25 MG TABLET 50 MG PO (08:12)
[2023-01-01 08:38] VITALS: BP 128/59; PULSE 95; RESP 18; TEMP 36.7; O2SAT 94
--- NOTE | 2023-01-01 10:44 | P.PNPSI_ITS ---
Subjective Subjective Date of Service: 01/01/23 Reason For Visit: Psychosis Interim History: Per staff responding to IS. Refusing meds. Unpredictable. With this mortgage or loan underwriter reports he wants to lower methadone because it is sour. He became irritable and walked away when trying to explain need to collaborate with [facility] and became angry. Intense eye contact. Paranoid. suspicious. irritable. poor sleep. Review of Systems Review of Systems Constitutional : No Weight loss, No Fever, No Chills, No Night Sweats, No Fatigue, No Malaise ENT/Mouth : No Hearing loss, No Ear Pain, No Nasal Congestion, No Sinus Pain, No Hoarseness, No sore throat, No Rhinorrhea, No Swallowing Difficulty Eyes: No Eye Pain, No Swelling, No Redness, No Foreign Body, No Discharge, No Vision Changes Cardiovascular : No Chest Pain, No SOB, No Dyspnea on Exertion, No Orthopnea, No Edema, No Palpitations Respiratory : No Cough, No Sputum, No Wheezing, No Smoke Exposure, No Dyspnea Gastrointestinal : No Nausea, No Vomiting, No Diarrhea, No Constipation, No abdominal Pain, No Hematochezia, No Melena Genitourinary : no irregular bleeding, No Dysuria, No Urinary Frequency, No Hematuria, No Urinary Incontinence, No Urgency, No Flank Pain, No Urinary Flow Changes, No Hesitancy Musculoskeletal : No joint pain, No Myalgias, No Joint Swelling Skin : No Skin Lesions, No rash Neuro : No Weakness, No Numbness, No Paresthesias, No Loss of Consciousness, No Dizziness, No Headache Psych : No Anxiety/Panic, No Depression, No SI/HI/AH/VH, patient admits to drug use Heme/Lymph: No Bruising, No Bleeding,No Lymphadenopathy Endocrine : No Polyuria, No Polydipsia, No Temperature Intolerance Yes Unobtainable due to mental status Mental Status Exam Mental Status Exam Narrative: adequately dressed and groomed. pacing the halls. variably cooperative. speech nml in amount, decr latency. thoughts somewhat disorganized, difficult to follow. appears unable to keep his thoughts together. affect constricted, intense, non-labile. no SI/HI/AVH expressed, but behaviors c/w at the least AH. Patient Appearance: Fatigued Patient Orientation: Person and Place Level of Consciousness: Alert Patient Behavior: Guarded, Talkative, Suspicious, Wandering, Anxious, Resistive to Care, Avoidant, Fatigued, Distractible, Good Eye Contact (Intense at times) and Impulsive Mood Description: Withdrawn, Fearful, Labile and Apprehensive Affect Description: Labile Patient Cognition Impaired: Yes Ability to Follow Directions: Fair Speech Pattern: Spontaneous Speech and Delayed Memory Description: Remote Impaired Diagnostics Vital Signs (24Hr): Vital Signs - 24 hr 12/31/22 10:53 12/31/22 11:08 12/31/22 11:23 Temperature 97.7 F 97.9 F Pulse Rate 79 120 H Respiratory Rate 16 16 16 Blood Pressure 140/61 H 139/81 Pulse Oximetry 97 96 Oxygen Delivery Method Room Air Room Air 12/31/22 13:39 12/31/22 20:05 01/01/23 08:38 Temperature 98.6 F 98.0 F Pulse Rate 110 H 95 Respiratory Rate 19 16 18 Blood Pressure 125/62 128/59 L Pulse Oximetry 97 94 Oxygen Delivery Method Room Air Room Air BMI result Body Mass Index 25.6 Labs 12/23/22 09:53 12/23/22 09:53 Medications Medications Current Medications Acetaminophen (Acetaminophen 325 Mg Tablet) 650 mg PO Q6H PRN PRN Reason: Headache/Pain Mild Scale (1-3) Last Admin: 12/29/22 21:40 Dose: 650 mg Al Hydroxide/Mg Hydroxide (Magnesium Hydrox/Alum Hydrox 30 Ml Oral.Susp) 30 ml PO Q6H PRN PRN Reason: Heartburn/Nausea Benztropine Mesylate (Benztropine Mesylate 1 Mg Tablet) 1 mg PO BEDTIME [facility] Last Admin: 12/31/22 21:00 Dose: Not Given Chlorpromazine HCl (Chlorpromazine Hcl 25 Mg Tablet) 50 mg PO Q4H PRN PRN Reason: agitation Last Admin: 01/01/23 08:12 Dose: 50 mg Clonidine HCl (Clonidine Hcl 0.1 Mg Tablet) 0.1 mg PO Q2H PRN; Protocol PRN Reason: agitation/signs of opioid withdrawal Dicyclomine HCl (Dicyclomine Hcl 10 Mg Capsule) 10 mg PO QIDACHS PRN PRN Reason: cramps Divalproex Sodium (Divalproex Sodium 250 Mg Tablet.Dr) 1,750 mg PO BEDTIME [facility] Last Admin: 12/31/22 21:00 Dose: Not Given Folic Acid (Folic Acid 1 Mg Tablet) 1 mg PO DAILY [facility] Last Admin: 01/01/23 08:12 Dose: 1 mg Haloperidol (Haloperidol 5 Mg Tablet) 10 mg PO BEDTIME [facility] Last Admin: 12/31/22 21:01 Dose: Not Given Hydroxyzine HCl (Hydroxyzine Hcl 25 Mg Tablet) 25 mg PO Q6H PRN PRN Reason: Anxiety Last Admin: 12/28/22 21:39 Dose: 25 mg Lorazepam (Lorazepam 1 Mg Tablet) 2 mg PO BEDTIME [facility] Last Admin: 12/31/22 21:01 Dose: Not Given Magnesium Hydroxide (Milk Of Magnesia 30 Ml Oral.Susp) 30 ml PO DAILY PRN PRN Reason: Constipation Methadone HCl (Methadone Hcl 20 Mg/2 Ml Oral.Conc) 30 mg PO DAILY [facility] Last Admin: 01/01/23 09:44 Dose: Not Given Nicotine (Nicotine 21 Mg Patch.Td24) 21 mg TRANSDERMA DAILY PRN PRN Reason: smoking cessation Nicotine Polacrilex (Nicotine Polacrilex 2 Mg Gum) 4 mg BUCCAL Q2H PRN PRN Reason: nicotine cravings Thiamine HCl (Thiamine Hcl 100 Mg Tablet) 100 mg PO DAILY [facility] Last Admin: 01/01/23 08:12 Dose: 100 mg Trazodone HCl (Trazodone Hcl 50 Mg Tablet) 50 mg PO BEDTIME MRX1 PRN PRN Reason: Insomnia Last Admin: 12/30/22 21:03 Dose: 50 mg Allergies Allergies Allergy/AdvReac Type Severity Reaction Status Date / Time morphine [MORPHINE] AdvReac Unknown NAUSEA Verified 12/10/22 19:56 Assessment & Plan Assessment & Plan (1) Opioid use disorder: Status: Acute Code(s): F11.90 - Opioid use, unspecified, uncomplicated (2) Cocaine use disorder: Status: Acute Code(s): F14.10 - Cocaine abuse, uncomplicated (3) Schizoaffective disorder, bipolar type: Status: Acute Code(s): F25.0 - Schizoaffective disorder, bipolar type Plan 12/24: attempt to give anti-psychotics. comfort meds for opioid and cocaine withdrawal. 12/25: refusing medications. period of agitation last night slamming doors and yelling (presumably @). continue current mgmt. 12/26: refusing meds. binging and purging. floridly psychotic. 12/27: had meds last night for sleep, per his request. schedule all haldol tonight with ativan and cogentin. a bit more interactive today, remains delayed and distracted. no binging/purgin behaviors or agitated behaviors described by RN report today. 12/28: refused meds last night. Today asks for meds for sx mgt- aggressive today- threw two coffee cups. Begin Depakote 250 mg bid. 12/29: got multiple meds last NOC and overnight per his request. slept 2 hours. refusing meds this morning. commitment paperwork completed. 3-day notice expires tomorrow. c/o opioid craving, asked for methadone. methadone 30 mg daily started today. 12/30: filed for commitment today. haldol and ativan per his request last night. appears in disbelief that he will not be discharged today. 12/31: demanding to leave, getting agitated, banging on nursing station, slamming doors in his room. given IMs x 2, haldol 10 ativan 2 benadryl 50 for first and thorazine 100 for second. 01/01: Remains unpredictable and irritable. Refusing scheduled medications. Section 7/ filed. Reason for continued inpatient stay Substantial Risk for: harm to others, inability to function and rapid decompensation Time Spent With Patient Time: Total time managing care of this patient today ____ minutes.
[2023-01-01] MEDS: Acetaminophen 325 MG TABLET 650 MG PO (17:37)
[2023-01-01] MEDS: Ibuprofen 400 MG TABLET PO (18:49)
[2023-01-02 09:40] VITALS: BP 119/72; PULSE 81; RESP 20; TEMP 37; O2SAT 98
--- NOTE | 2023-01-02 11:08 | HO.PSYCHPN ---
Subjective Subjective Date of Service: 01/02/23 Reason For Visit: Psychosis Interim History: Per staff responding to IS. Seen in the green gesturing. He was intensely asking for DC from this examiner. Refusing meds. Unpredictable. Paranoid. Last night was demanding to leave and was threatening. suspicious. irritable. poor sleep. Review of Systems Review of Systems Constitutional : No Weight loss, No Fever, No Chills, No Night Sweats, No Fatigue, No Malaise ENT/Mouth : No Hearing loss, No Ear Pain, No Nasal Congestion, No Sinus Pain, No Hoarseness, No sore throat, No Rhinorrhea, No Swallowing Difficulty Eyes: No Eye Pain, No Swelling, No Redness, No Foreign Body, No Discharge, No Vision Changes Cardiovascular : No Chest Pain, No SOB, No Dyspnea on Exertion, No Orthopnea, No Edema, No Palpitations Respiratory : No Cough, No Sputum, No Wheezing, No Smoke Exposure, No Dyspnea Gastrointestinal : No Nausea, No Vomiting, No Diarrhea, No Constipation, No abdominal Pain, No Hematochezia, No Melena Genitourinary : no irregular bleeding, No Dysuria, No Urinary Frequency, No Hematuria, No Urinary Incontinence, No Urgency, No Flank Pain, No Urinary Flow Changes, No Hesitancy Musculoskeletal : No joint pain, No Myalgias, No Joint Swelling Skin : No Skin Lesions, No rash Neuro : No Weakness, No Numbness, No Paresthesias, No Loss of Consciousness, No Dizziness, No Headache Psych : No Anxiety/Panic, No Depression, No SI/HI/AH/VH, patient admits to drug use Heme/Lymph: No Bruising, No Bleeding,No Lymphadenopathy Endocrine : No Polyuria, No Polydipsia, No Temperature Intolerance Yes Unobtainable due to mental status Mental Status Exam Mental Status Exam Narrative: adequately dressed and groomed. pacing the halls. variably cooperative. speech nml in amount, decr latency. thoughts somewhat disorganized, difficult to follow. appears unable to keep his thoughts together. affect constricted, intense, non-labile. no SI/HI/AVH expressed, but behaviors c/w at the least AH. Patient Appearance: Fatigued Patient Orientation: Person and Place Level of Consciousness: Alert Patient Behavior: Guarded, Talkative, Suspicious, Wandering, Anxious, Resistive to Care, Avoidant, Fatigued, Distractible, Good Eye Contact (Intense at times) and Impulsive Mood Description: Withdrawn, Fearful, Labile and Apprehensive Affect Description: Labile Patient Cognition Impaired: Yes Ability to Follow Directions: Fair Speech Pattern: Spontaneous Speech and Delayed Memory Description: Remote Impaired Diagnostics Vital Signs (24Hr): Vital Signs - 24 hr 01/02/23 09:40 Temperature 98.6 F Pulse Rate 81 Respiratory Rate 20 Blood Pressure 119/72 Pulse Oximetry 98 Oxygen Delivery Method Room Air BMI result Body Mass Index 25.6 Labs 12/23/22 09:53 12/23/22 09:53 Medications Medications Current Medications Acetaminophen (Acetaminophen 325 Mg Tablet) 650 mg PO Q6H PRN PRN Reason: Headache/Pain Mild Scale (1-3) Last Admin: 01/01/23 17:37 Dose: 650 mg Al Hydroxide/Mg Hydroxide (Magnesium Hydrox/Alum Hydrox 30 Ml Oral.Susp) 30 ml PO Q6H PRN PRN Reason: Heartburn/Nausea Benztropine Mesylate (Benztropine Mesylate 1 Mg Tablet) 1 mg PO BEDTIME [facility] Last Admin: 01/01/23 22:38 Dose: Not Given Chlorpromazine HCl (Chlorpromazine Hcl 25 Mg Tablet) 50 mg PO Q4H PRN PRN Reason: agitation Last Admin: 01/01/23 08:12 Dose: 50 mg Clonidine HCl (Clonidine Hcl 0.1 Mg Tablet) 0.1 mg PO Q2H PRN; Protocol PRN Reason: agitation/signs of opioid withdrawal Dicyclomine HCl (Dicyclomine Hcl 10 Mg Capsule) 10 mg PO QIDACHS PRN PRN Reason: cramps Divalproex Sodium (Divalproex Sodium 250 Mg Tablet.Dr) 1,750 mg PO BEDTIME [facility] Last Admin: 01/01/23 22:38 Dose: Not Given Folic Acid (Folic Acid 1 Mg Tablet) 1 mg PO DAILY [facility] Last Admin: 01/02/23 10:55 Dose: Not Given Haloperidol (Haloperidol 5 Mg Tablet) 10 mg PO BEDTIME [facility] Last Admin: 01/01/23 22:38 Dose: Not Given Hydroxyzine HCl (Hydroxyzine Hcl 25 Mg Tablet) 25 mg PO Q6H PRN PRN Reason: Anxiety Last Admin: 12/28/22 21:39 Dose: 25 mg Ibuprofen (Ibuprofen 400 Mg Tablet) 400 mg PO Q6H PRN PRN Reason: back pain Last Admin: 01/01/23 18:49 Dose: 400 mg Lorazepam (Lorazepam 1 Mg Tablet) 2 mg PO BEDTIME [facility] Last Admin: 01/01/23 22:38 Dose: Not Given Magnesium Hydroxide (Milk Of Magnesia 30 Ml Oral.Susp) 30 ml PO DAILY PRN PRN Reason: Constipation Methadone HCl (Methadone Hcl 20 Mg/2 Ml Oral.Conc) 30 mg PO DAILY [facility] Last Admin: 01/02/23 10:55 Dose: Not Given Nicotine (Nicotine 21 Mg Patch.Td24) 21 mg TRANSDERMA DAILY PRN PRN Reason: smoking cessation Nicotine Polacrilex (Nicotine Polacrilex 2 Mg Gum) 4 mg BUCCAL Q2H PRN PRN Reason: nicotine cravings Thiamine HCl (Thiamine Hcl 100 Mg Tablet) 100 mg PO DAILY [facility] Last Admin: 01/02/23 10:56 Dose: Not Given Trazodone HCl (Trazodone Hcl 50 Mg Tablet) 50 mg PO BEDTIME MRX1 PRN PRN Reason: Insomnia Last Admin: 12/30/22 21:03 Dose: 50 mg Allergies Allergies Allergy/AdvReac Type Severity Reaction Status Date / Time morphine [MORPHINE] AdvReac Unknown NAUSEA Verified 12/10/22 19:56 Assessment & Plan Assessment & Plan (1) Opioid use disorder: Status: Acute Code(s): F11.90 - Opioid use, unspecified, uncomplicated (2) Cocaine use disorder: Status: Acute Code(s): F14.10 - Cocaine abuse, uncomplicated (3) Schizoaffective disorder, bipolar type: Status: Acute Code(s): F25.0 - Schizoaffective disorder, bipolar type Plan 12/24: attempt to give anti-psychotics. comfort meds for opioid and cocaine withdrawal. 12/25: refusing medications. period of agitation last night slamming doors and yelling (presumably @). continue current mgmt. 12/26: refusing meds. binging and purging. floridly psychotic. 12/27: had meds last night for sleep, per his request. schedule all haldol tonight with ativan and cogentin. a bit more interactive today, remains delayed and distracted. no binging/purgin behaviors or agitated behaviors described by RN report today. 12/28: refused meds last night. Today asks for meds for sx mgt- aggressive today-threw two coffee cups. Begin Depakote 250 mg bid. 12/29: got multiple meds last NOC and overnight per his request. slept 2 hours. refusing meds this morning. commitment paperwork completed. 3-day notice expires tomorrow. c/o opioid craving, asked for methadone. methadone 30 mg daily started today. 12/30: filed for commitment today. haldol and ativan per his request last night. appears in disbelief that he will not be discharged today. 12/31: demanding to leave, getting agitated, banging on nursing station, slamming doors in his room. given IMs x 2, haldol 10 ativan 2 benadryl 50 for first and thorazine 100 for second. 01/01: Remains unpredictable and irritable. Refusing scheduled medications. Section 7/8 filed. 01/02: Continue current management. Reason for continued inpatient stay Substantial Risk for: harm to others, inability to function and rapid decompensation Time Spent With Patient Time: Total time managing care of this patient today ____ minutes.
[2023-01-02 20:32] VITALS: BP 122/70; PULSE 82; TEMP 36.7; O2SAT 100
[2023-01-03 08:00] VITALS: RESP 16
--- NOTE | 2023-01-03 12:56 | P.PNPSI_ITS ---
Subjective Subjective Date of Service: 01/03/23 Reason For Visit: Psychosis Interim History: pacing halls, seems distracted/with poor ability to attend. somewhat agitated, accusing MD of changing the plan after MD notes hearing is scheduled for . he yells at MD in the green that his detention deputy is going to get him out today. approaches MD at another point and tells him he forgot to tell his detention deputy a good number of things. he was advised to speak with his detention deputy in that case and was informed we could provide contact information if needed. per staff, asking about discharge. RIS, pacing, refused HS meds. allowed VS. outburst in the middle of the night, yelling at the open space between his bathroom door and the threshold. poor sleep. Mental Status Exam Mental Status Exam Narrative: adequately dressed and groomed. pacing the halls. variably cooperative, agitated. speech nml in amount, decr latency. thoughts disorganized, appears unable to retain and process information well. affect constricted, hyper- intense, mod-labile. no SI/HI/AVH expressed, but behaviors c/w at the least AH. Diagnostics Vital Signs (24Hr): Vital Signs - 24 hr 01/02/23 20:32 01/03/23 08:00 Temperature 98.0 F Pulse Rate 82 Respiratory Rate 16 Blood Pressure 122/70 Pulse Oximetry 100 Oxygen Delivery Method Room Air BMI result Body Mass Index 25.6 Labs 12/23/22 09:53 12/23/22 09:53 Medications Medications Current Medications Acetaminophen (Acetaminophen 325 Mg Tablet) 650 mg PO Q6H PRN PRN Reason: Headache/Pain Mild Scale (1-3) Last Admin: 01/01/23 17:37 Dose: 650 mg Al Hydroxide/Mg Hydroxide (Magnesium Hydrox/Alum Hydrox 30 Ml Oral.Susp) 30 ml PO Q6H PRN PRN Reason: Heartburn/Nausea Benztropine Mesylate (Benztropine Mesylate 1 Mg Tablet) 1 mg PO BEDTIME [facility] Last Admin: 01/02/23 23:59 Dose: Not Given Chlorpromazine HCl (Chlorpromazine Hcl 25 Mg Tablet) 50 mg PO Q4H PRN PRN Reason: agitation Last Admin: 01/01/23 08:12 Dose: 50 mg Clonidine HCl (Clonidine Hcl 0.1 Mg Tablet) 0.1 mg PO Q2H PRN; Protocol PRN Reason: agitation/signs of opioid withdrawal Dicyclomine HCl (Dicyclomine Hcl 10 Mg Capsule) 10 mg PO QIDACHS PRN PRN Reason: cramps Divalproex Sodium (Divalproex Sodium 250 Mg Tablet.Dr) 1,750 mg PO BEDTIME [facility] Last Admin: 01/02/23 23:59 Dose: Not Given Folic Acid (Folic Acid 1 Mg Tablet) 1 mg PO DAILY [facility] Last Admin: 01/03/23 08:16 Dose: Not Given Haloperidol (Haloperidol 5 Mg Tablet) 10 mg PO BEDTIME [facility] Last Admin: 01/02/23 23:59 Dose: Not Given Hydroxyzine HCl (Hydroxyzine Hcl 25 Mg Tablet) 25 mg PO Q6H PRN PRN Reason: Anxiety Last Admin: 12/28/22 21:39 Dose: 25 mg Ibuprofen (Ibuprofen 400 Mg Tablet) 400 mg PO Q6H PRN PRN Reason: back pain Last Admin: 01/01/23 18:49 Dose: 400 mg Lorazepam (Lorazepam 1 Mg Tablet) 2 mg PO BEDTIME [facility] Last Admin: 01/03/23 00:00 Dose: Not Given Magnesium Hydroxide (Milk Of Magnesia 30 Ml Oral.Susp) 30 ml PO DAILY PRN PRN Reason: Constipation Methadone HCl (Methadone Hcl 20 Mg/2 Ml Oral.Conc) 30 mg PO DAILY [facility] Last Admin: 01/03/23 08:16 Dose: Not Given Nicotine (Nicotine 21 Mg Patch.Td24) 21 mg TRANSDERMA DAILY PRN PRN Reason: smoking cessation Nicotine Polacrilex (Nicotine Polacrilex 2 Mg Gum) 4 mg BUCCAL Q2H PRN PRN Reason: nicotine cravings Thiamine HCl (Thiamine Hcl 100 Mg Tablet) 100 mg PO DAILY [facility] Last Admin: 01/03/23 08:17 Dose: Not Given Trazodone HCl (Trazodone Hcl 50 Mg Tablet) 50 mg PO BEDTIME MRX1 PRN PRN Reason: Insomnia Last Admin: 12/30/22 21:03 Dose: 50 mg Allergies Allergies Allergy/AdvReac Type Severity Reaction Status Date / Time morphine [MORPHINE] AdvReac Unknown NAUSEA Verified 12/10/22 19:56 Assessment & Plan Assessment & Plan (1) Opioid use disorder: Status: Acute Code(s): F11.90 - Opioid use, unspecified, uncomplicated (2) Cocaine use disorder: Status: Acute Code(s): F14.10 - Cocaine abuse, uncomplicated (3) Schizoaffective disorder, bipolar type: Status: Acute Code(s): F25.0 - Schizoaffective disorder, bipolar type Plan 12/24: attempt to give anti-psychotics. comfort meds for opioid and cocaine withdrawal. 12/25: refusing medications. period of agitation last night slamming doors and yelling (presumably @). continue current mgmt. 12/26: refusing meds. binging and purging. floridly psychotic. 12/27: had meds last night for sleep, per his request. schedule all haldol tonight with ativan and cogentin. a bit more interactive today, remains delayed and distracted. no binging/purgin behaviors or agitated behaviors described by RN report today. 12/28: refused meds last night. Today asks for meds for sx mgt- aggressive today- threw two coffee cups. Begin Depakote 250 mg bid. 12/29: got multiple meds last NOC and overnight per his request. slept 2 hours. refusing meds this morning. commitment paperwork completed. 3-day notice expires tomorrow. c/o opioid craving, asked for methadone. methadone 30 mg daily started today. 12/30: filed for commitment today. haldol and ativan per his request last night. appears in disbelief that he will not be discharged today. 12/31: demanding to leave, getting agitated, banging on nursing station, slamming doors in his room. given IMs x 2, haldol 10 ativan 2 benadryl 50 for first and thorazine 100 for second. 01/01: Remains unpredictable and irritable. Refusing scheduled medications. Section 7/ filed. 01/02: Continue current management. 01/03: refusing meds. irritable, labile. periods of agitation. continue current mgmt, awaiting hearing for . Reason for continued inpatient stay Substantial Risk for: harm to self, harm to others, inability to function and rapid decompensation Time Spent With Patient Time: Total time managing care of this patient today _25___ minutes.
[2023-01-03 18:00] VITALS: BP 124/64; PULSE 81; RESP 18; TEMP 36.7; O2SAT 98
[2023-01-03] MEDS: Acetaminophen 325 MG TABLET 650 MG PO (20:01)
[2023-01-03] MEDS: Ibuprofen 400 MG TABLET PO (22:41)
[2023-01-04 06:00] VITALS: BP 146/77; PULSE 72; RESP 16; TEMP 36.8; O2SAT 98
--- NOTE | 2023-01-04 12:16 | HO.PSYCHPN ---
Subjective Subjective Date of Service: 01/04/23 Reason For Visit: Psychosis Interim History: no questions or complaints. says he is doing fine. per staff, disorganized, poor sleep. verbally aggressive toward staff ( you're all fucking hypocrites ). exit-seeking (pushing on doors). not taking meds. Mental Status Exam Mental Status Exam Narrative: adequately dressed and groomed. pacing the halls. minimally and briefly cooperative. speech decr in amount, nml latency. thoughts linear in perfunctory and brief interaction. affect constricted, normo-intense, non-labile. no SI/HI/AVH expressed, but behaviors c/w at the least AH. Diagnostics Vital Signs (24Hr): Vital Signs - 24 hr 01/03/23 18:00 01/04/23 06:00 Temperature 98.0 F 98.2 F Pulse Rate 81 72 Respiratory Rate 18 16 Blood Pressure 124/64 146/77 H Pulse Oximetry 98 98 Oxygen Delivery Method Room Air Room Air BMI result Body Mass Index 25.6 Labs 12/23/22 09:53 12/23/22 09:53 Medications Medications Current Medications Acetaminophen (Acetaminophen 325 Mg Tablet) 650 mg PO Q6H PRN PRN Reason: Headache/Pain Mild Scale (1-3) Last Admin: 01/03/23 20:01 Dose: 650 mg Al Hydroxide/Mg Hydroxide (Magnesium Hydrox/Alum Hydrox 30 Ml Oral.Susp) 30 ml PO Q6H PRN PRN Reason: Heartburn/Nausea Benztropine Mesylate (Benztropine Mesylate 1 Mg Tablet) 1 mg PO BEDTIME [facility] Last Admin: 01/03/23 20:03 Dose: Not Given Chlorpromazine HCl (Chlorpromazine Hcl 25 Mg Tablet) 50 mg PO Q4H PRN PRN Reason: agitation Last Admin: 01/01/23 08:12 Dose: 50 mg Clonidine HCl (Clonidine Hcl 0.1 Mg Tablet) 0.1 mg PO Q2H PRN; Protocol PRN Reason: agitation/signs of opioid withdrawal Dicyclomine HCl (Dicyclomine Hcl 10 Mg Capsule) 10 mg PO QIDACHS PRN PRN Reason: cramps Divalproex Sodium (Divalproex Sodium 250 Mg Tablet.) 1,750 mg PO BEDTIME [facility] Last Admin: 08/28/23 20:02 Dose: Not Given Folic Acid (Folic Acid 1 Mg Tablet) 1 mg PO DAILY [facility] Last Admin: 01/04/23 08:19 Dose: Not Given Haloperidol (Haloperidol 5 Mg Tablet) 10 mg PO BEDTIME [facility] Last Admin: 01/03/23 20:02 Dose: Not Given Hydroxyzine HCl (Hydroxyzine Hcl 25 Mg Tablet) 25 mg PO Q6H PRN PRN Reason: Anxiety Last Admin: 12/28/22 21:39 Dose: 25 mg Ibuprofen (Ibuprofen 400 Mg Tablet) 400 mg PO Q6H PRN PRN Reason: back pain Last Admin: 01/03/23 22:41 Dose: 400 mg Lorazepam (Lorazepam 1 Mg Tablet) 2 mg PO BEDTIME [facility] Last Admin: 01/03/23 20:02 Dose: Not Given Magnesium Hydroxide (Milk Of Magnesia 30 Ml Oral.Susp) 30 ml PO DAILY PRN PRN Reason: Constipation Methadone HCl (Methadone Hcl 20 Mg/2 Ml Oral.Conc) 30 mg PO DAILY [facility] Last Admin: 01/04/23 08:19 Dose: Not Given Nicotine (Nicotine 21 Mg Patch.Td24) 21 mg TRANSDERMA DAILY PRN PRN Reason: smoking cessation Nicotine Polacrilex (Nicotine Polacrilex 2 Mg Gum) 4 mg BUCCAL Q2H PRN PRN Reason: nicotine cravings Thiamine HCl (Thiamine Hcl 100 Mg Tablet) 100 mg PO DAILY [facility] Last Admin: 01/04/23 08:19 Dose: Not Given Trazodone HCl (Trazodone Hcl 50 Mg Tablet) 50 mg PO BEDTIME MRX1 PRN PRN Reason: Insomnia Last Admin: 12/30/22 21:03 Dose: 50 mg Allergies Allergies Allergy/AdvReac Type Severity Reaction Status Date / Time morphine [MORPHINE] AdvReac Unknown NAUSEA Verified 12/10/22 19:56 Assessment & Plan Assessment & Plan (1) Opioid use disorder: Status: Acute Code(s): F11.90 - Opioid use, unspecified, uncomplicated (2) Cocaine use disorder: Status: Acute Code(s): F14.10 - Cocaine abuse, uncomplicated (3) Schizoaffective disorder, bipolar type: Status: Acute Code(s): F25.0 - Schizoaffective disorder, bipolar type Plan 12/24: attempt to give anti-psychotics. comfort meds for opioid and cocaine withdrawal. 12/25: refusing medications. period of agitation last night slamming doors and yelling (presumably @AH). continue current mgmt. 12/26: refusing meds. binging and purging. floridly psychotic. 12/27: had meds last night for sleep, per his request. schedule all haldol tonight with ativan and cogentin. a bit more interactive today, remains delayed and distracted. no binging/purgin behaviors or agitated behaviors described by RN report today. 12/28: refused meds last night. Today asks for meds for sx mgt- aggressive today-threw two coffee cups. Begin Depakote 250 mg bid. 12/29: got multiple meds last NOC and overnight per his request. slept 2 hours. refusing meds this morning. commitment paperwork completed. 3-day notice expires tomorrow. c/o opioid craving, asked for methadone. methadone 30 mg daily started today. 12/30: filed for commitment today. haldol and ativan per his request last night. appears in disbelief that he will not be discharged today. 12/31: demanding to leave, getting agitated, banging on nursing station, slamming doors in his room. given IMs x 2, haldol 10 ativan 2 benadryl 50 for first and thorazine 100 for second. 01/01: Remains unpredictable and irritable. Refusing scheduled medications. Section 7/8 filed. 01/02: Continue current management. 01/03: refusing meds. irritable, labile. periods of agitation. continue current mgmt, awaiting hearing for . 01/04: refusing meds. irritable, labile. periods of agitation. continue current mgmt, though pt is refusing meds. Reason for continued inpatient stay Substantial Risk for: harm to self, inability to function and rapid decompensation Time Spent With Patient Time: Total time managing care of this patient today ____ minutes.
[2023-01-05] MEDS: Acetaminophen 325 MG TABLET 650 MG PO (14:01)
--- NOTE | 2023-01-05 14:15 | P.PNPSI_ITS ---
Subjective Subjective Date of Service: 01/05/23 Reason For Visit: Psychosis Interim History: informed of hearing tomorrow. denies he has a mental illness or has any need for medications. approached MD later in the day with a question and then is unable to produce it, appearing thought-blocked or disorganized. per staff, eating. preoccupied and guarded. minimal sleep. showered. RIS, denies AVH. refused HS meds. Mental Status Exam Mental Status Exam Narrative: adequately dressed and groomed. pacing the halls. minimally and briefly cooperative. speech decr in amount, nml latency. thoughts linear in perfunctory and brief interaction, then apparently blocked or severely dis organized later. affect constricted, normo-intense, non-labile. no SI/HI/AVH expressed, but behaviors c/w at the least AH. Diagnostics Vital Signs (24Hr): BMI result Body Mass Index 25.6 Labs 12/23/22 09:53 12/23/22 09:53 Medications Medications Current Medications Acetaminophen (Acetaminophen 325 Mg Tablet) 650 mg PO Q6H PRN PRN Reason: Headache/Pain Mild Scale (1-3) Last Admin: 01/05/23 14:01 Dose: 650 mg Al Hydroxide/Mg Hydroxide (Magnesium Hydrox/Alum Hydrox 30 Ml Oral.Susp) 30 ml PO Q6H PRN PRN Reason: Heartburn/Nausea Benztropine Mesylate (Benztropine Mesylate 1 Mg Tablet) 1 mg PO BEDTIME [facility] Last Admin: 01/04/23 22:05 Dose: Not Given Chlorpromazine HCl (Chlorpromazine Hcl 25 Mg Tablet) 50 mg PO Q4H PRN PRN Reason: agitation Last Admin: 01/01/23 08:12 Dose: 50 mg Clonidine HCl (Clonidine Hcl 0.1 Mg Tablet) 0.1 mg PO Q2H PRN; Protocol PRN Reason: agitation/signs of opioid withdrawal Dicyclomine HCl (Dicyclomine Hcl 10 Mg Capsule) 10 mg PO QIDACHS PRN PRN Reason: cramps Divalproex Sodium (Divalproex Sodium 250 Mg Tablet.) 1,750 mg PO BEDTIME [facility] Last Admin: 01/04/23 22:05 Dose: Not Given Folic Acid (Folic Acid 1 Mg Tablet) 1 mg PO DAILY [facility] Last Admin: 01/05/23 09:03 Dose: Not Given Haloperidol (Haloperidol 5 Mg Tablet) 10 mg PO BEDTIME [facility] Last Admin: 01/04/23 22:05 Dose: Not Given Hydroxyzine HCl (Hydroxyzine Hcl 25 Mg Tablet) 25 mg PO Q6H PRN PRN Reason: Anxiety Last Admin: 12/28/22 21:39 Dose: 25 mg Ibuprofen (Ibuprofen 400 Mg Tablet) 400 mg PO Q6H PRN PRN Reason: back pain Last Admin: 01/03/23 22:41 Dose: 400 mg Lorazepam (Lorazepam 1 Mg Tablet) 2 mg PO BEDTIME [facility] Last Admin: 01/04/23 22:05 Dose: Not Given Magnesium Hydroxide (Milk Of Magnesia 30 Ml Oral.Susp) 30 ml PO DAILY PRN PRN Reason: Constipation Nicotine (Nicotine 21 Mg Patch.Td24) 21 mg TRANSDERMA DAILY PRN PRN Reason: smoking cessation Nicotine Polacrilex (Nicotine Polacrilex 2 Mg Gum) 4 mg BUCCAL Q2H PRN PRN Reason: nicotine cravings Thiamine HCl (Thiamine Hcl 100 Mg Tablet) 100 mg PO DAILY [facility] Last Admin: 01/05/23 09:03 Dose: Not Given Trazodone HCl (Trazodone Hcl 50 Mg Tablet) 50 mg PO BEDTIME MRX1 PRN PRN Reason: Insomnia Last Admin: 12/30/22 21:03 Dose: 50 mg Allergies Allergies Allergy/AdvReac Type Severity Reaction Status Date / Time morphine [MORPHINE] AdvReac Unknown NAUSEA Verified 12/10/22 19:56 Assessment & Plan Assessment & Plan (1) Opioid use disorder: Status: Acute Code(s): F11.90 - Opioid use, unspecified, uncomplicated (2) Cocaine use disorder: Status: Acute Code(s): F14.10 - Cocaine abuse, uncomplicated (3) Schizoaffective disorder, bipolar type: Status: Acute Code(s): F25.0 - Schizoaffective disorder, bipolar type Plan 12/24: attempt to give anti-psychotics. comfort meds for opioid and cocaine withdrawal. 12/25: refusing medications. period of agitation last night slamming doors and yelling (presumably @[facility]). continue current mgmt. 12/26: refusing meds. binging and purging. floridly psychotic. 12/27: had meds last night for sleep, per his request. schedule all haldol tonight with ativan and cogentin. a bit more interactive today, remains delayed and distracted. no binging/purgin behaviors or agitated behaviors described by RN report today. 12/28: refused meds last night. Today asks for meds for sx mgt- aggressive today- threw two coffee cups. Begin Depakote 250 mg bid. 12/29: got multiple meds last NOC and overnight per his request. slept 2 hours. refusing meds this morning. commitment paperwork completed. 3-day notice expires tomorrow. c/o opioid craving, asked for methadone. methadone 30 mg daily started today. 12/30: filed for commitment today. haldol and ativan per his request last night. appears in disbelief that he will not be discharged today. 12/31: demanding to leave, getting agitated, banging on nursing station, slamming doors in his room. given IMs x 2, haldol 10 ativan 2 benadryl 50 for first and thorazine 100 for second. 01/01: Remains unpredictable and irritable. Refusing scheduled medications. Section 7/8 filed. 01/02: Continue current management. 01/03: refusing meds. irritable, labile. periods of agitation. continue current mgmt, awaiting hearing for . 01/04: refusing meds. irritable, labile. periods of agitation. continue current mgmt, though pt is refusing meds. 01/05: thought-blocked. denies mental illness or need for medications. offer medications. hearing tomorrow. Reason for continued inpatient stay Substantial Risk for: harm to self and inability to function Time Spent With Patient Time: Total time managing care of this patient today ____ minutes.
[2023-01-05] MEDS: Ibuprofen 400 MG TABLET PO (19:24)
[2023-01-05 20:41] VITALS: BP 165/68; PULSE 79; TEMP 36.6; O2SAT 100
[2023-01-05] MEDS: Dicyclomine HCl 10 MG CAPSULE PO (20:52)
[2023-01-05] MEDS: LORazepam 1 MG TABLET 2 MG PO (20:53)
--- NOTE | 2023-01-05 20:53 | PC.NURSE ---
HS ativan-accepted 1 mg of 2 mg po dose at HS. also took bentyl. both medications given in the context of c/o backache. has already receive tylenol and motrin for c/o discpmfort.
[2023-01-06] MEDS: Acetaminophen 325 MG TABLET 650 MG PO ×2 (04:00→20:40)
[2023-01-06 07:00] VITALS: BMI 24.9
[2023-01-06] MEDS: Dicyclomine HCl 10 MG CAPSULE PO (09:51)
[2023-01-06] MEDS: Ibuprofen 400 MG TABLET PO ×2 (09:56→16:36)
--- NOTE | 2023-01-06 15:14 | P.PNPSI_ITS ---
Subjective Subjective Date of Service: 01/06/23 Reason For Visit: Psychosis Interim History: no complaints or requests early in day, pacing, disorganized. after hearing in which he was committed he did not understand he had to remain in the hospital and believed he would be discharging, became somewhat agitated but remained in behavioral control. MD attempted to explain engineering manager's order and offered to provide him with written copy once received by hospital. pt insisted his mental illness is fine, that we are aware of that, and that this is a place for recovery, not treatment of mental illness. per staff, suspicious, paranoid, guarded. pacing. withdrawn. +RIS. c/o back pain last NOC. had bentyl and 1 mg ativan. slept about 3 hours overnight. Mental Status Exam Mental Status Exam Narrative: adequately dressed and groomed. pacing the halls. minimally cooperative. sp eech nml in amount, decr latency. thoughts linear in some instances, not logical or informed, however. affect constricted, hyper-intense, mod-labile. no SI/HI/AVH expressed, but behaviors c/w at the least AH. Diagnostics Vital Signs (24Hr): Vital Signs - 24 hr 01/05/23 20:41 Temperature 97.8 F Pulse Rate 79 Blood Pressure 165/68 H Pulse Oximetry 100 Oxygen Delivery Method Room Air BMI result Body Mass Index 24.9 Labs 12/23/22 09:53 12/23/22 09:53 Medications Medications Current Medications Acetaminophen (Acetaminophen 325 Mg Tablet) 650 mg PO Q6H PRN PRN Reason: Headache/Pain Mild Scale (1-3) Last Admin: 01/06/23 04:00 Dose: 650 mg Al Hydroxide/Mg Hydroxide (Magnesium Hydrox/Alum Hydrox 30 Ml Oral.Susp) 30 ml PO Q6H PRN PRN Reason: Heartburn/Nausea Benztropine Mesylate (Benztropine Mesylate 1 Mg Tablet) 1 mg PO BEDTIME [facility] Last Admin: 01/05/23 22:38 Dose: Not Given Chlorpromazine HCl (Chlorpromazine Hcl 25 Mg Tablet) 50 mg PO Q4H PRN PRN Reason: agitation Last Admin: 01/01/23 08:12 Dose: 50 mg Clonidine HCl (Clonidine Hcl 0.1 Mg Tablet) 0.1 mg PO Q2H PRN; Protocol PRN Reason: agitation/signs of opioid withdrawal Dicyclomine HCl (Dicyclomine Hcl 10 Mg Capsule) 10 mg PO QIDACHS PRN PRN Reason: cramps Last Admin: 01/06/23 09:51 Dose: 10 mg Divalproex Sodium (Divalproex Sodium 250 Mg Tablet.Dr) 1,750 mg PO BEDTIME [facility] Last Admin: 01/05/23 22:39 Dose: Not Given Folic Acid (Folic Acid 1 Mg Tablet) 1 mg PO DAILY [facility] Last Admin: 01/06/23 09:23 Dose: Not Given Haloperidol (Haloperidol 5 Mg Tablet) 10 mg PO BEDTIME [facility] Last Admin: 01/05/23 22:39 Dose: Not Given Hydroxyzine HCl (Hydroxyzine Hcl 25 Mg Tablet) 25 mg PO Q6H PRN PRN Reason: Anxiety Last Admin: 12/28/22 21:39 Dose: 25 mg Ibuprofen (Ibuprofen 400 Mg Tablet) 400 mg PO Q6H PRN PRN Reason: back pain Last Admin: 01/06/23 09:56 Dose: 400 mg Lorazepam (Lorazepam 1 Mg Tablet) 2 mg PO BEDTIME [facility] Last Admin: 01/05/23 20:53 Dose: 1 mg Magnesium Hydroxide (Milk Of Magnesia 30 Ml Oral.Susp) 30 ml PO DAILY PRN PRN Reason: Constipation Nicotine (Nicotine 21 Mg Patch.Td24) 21 mg TRANSDERMA DAILY PRN PRN Reason: smoking cessation Nicotine Polacrilex (Nicotine Polacrilex 2 Mg Gum) 4 mg BUCCAL Q2H PRN PRN Reason: nicotine cravings Thiamine HCl (Thiamine Hcl 100 Mg Tablet) 100 mg PO DAILY [facility] Last Admin: 01/06/23 09:23 Dose: Not Given Trazodone HCl (Trazodone Hcl 50 Mg Tablet) 50 mg PO BEDTIME MRX1 PRN PRN Reason: Insomnia Last Admin: 12/30/22 21:03 Dose: 50 mg Allergies Allergies Allergy/AdvReac Type Severity Reaction Status Date / Time morphine [MORPHINE] AdvReac Unknown NAUSEA Verified 12/10/22 19:56 Assessment & Plan Assessment & Plan (1) Opioid use disorder: Status: Acute Code(s): F11.90 - Opioid use, unspecified, uncomplicated (2) Cocaine use disorder: Status: Acute Code(s): F14.10 - Cocaine abuse, uncomplicated (3) Schizoaffective disorder, bipolar type: Status: Acute Code(s): F25.0 - Schizoaffective disorder, bipolar type Plan 12/24: attempt to give anti-psychotics. comfort meds for opioid and cocaine withdrawal. 12/25: refusing medications. period of agitation last night slamming doors and yelling (presumably @). continue current mgmt. 12/26: refusing meds. binging and purging. floridly psychotic. 12/27: had meds last night for sleep, per his request. schedule all haldol tonight with ativan and cogentin. a bit more interactive today, remains delayed and distracted. no binging/purgin behaviors or agitated behaviors described by RN report today. 12/28: refused meds last night. Today asks for meds for sx mgt- aggressive today- threw two coffee cups. Begin Depakote 250 mg bid. 12/29: got multiple meds last NOC and overnight per his request. slept 2 hours. refusing meds this morning. commitment paperwork completed. 3-day notice expires tomorrow. c/o opioid craving, asked for methadone. methadone 30 mg daily started today. 12/30: filed for commitment today. haldol and ativan per his request last night. appears in disbelief that he will not be discharged today. 12/31: demanding to leave, getting agitated, banging on nursing station, slamming doors in his room. given IMs x 2, haldol 10 ativan 2 benadryl 50 for first and thorazine 100 for second. 01/01: Remains unpredictable and irritable. Refusing scheduled medications. Section 7/ filed. 01/02: Continue current management. 01/03: refusing meds. irritable, labile. periods of agitation. continue current mgmt, awaiting hearing for . 01/04: refusing meds. irritable, labile. periods of agitation. continue current mgmt, though pt is refusing meds. 01/05: thought-blocked. denies mental illness or need for medications. offer medications. hearing tomorrow. 01/06: committed and ordered medications at hearing. 06/12/20 [facility] DC summary reviewd, pt was discharged on VPA, zyprexa, haldol. 03/14/20 DC summary reviewed, pt discharged on zyprexa, haldol. pt unable to comprehend result, a gitated not to be leaving today. Reason for continued inpatient stay Substantial Risk for: harm to self, harm to others and inability to function Time Spent With Patient Time: Total time managing care of this patient today __100__ minutes.
[2023-01-06 20:00] VITALS: BP 112/76; PULSE 109; RESP 18; TEMP 36.6; O2SAT 99
[2023-01-07 08:10] VITALS: BP 133/88; PULSE 95; RESP 18; TEMP 36.7; O2SAT 100
[2023-01-07] MEDS: Folic Acid 1 MG TABLET PO (09:17)
[2023-01-07] MEDS: Thiamine HCL 100 MG TABLET PO (09:17)
--- NOTE | 2023-01-07 12:28 | HO.PSYCHPN ---
Subjective Subjective Date of Service: 01/07/23 Reason For Visit: Psychosis Interim History: pacing the green, some running hands through hair repeatedly and strenuously as if in frustration, while pacing. denies any problems, has no questions. per staff, flat, withdrawn, exit-seeking. agitated in afternoon after being told he would not be allowed to leave the hospital, per welt sole layer's ruling. yelled once down the green. self-dialoguing. refused medications last NOC. did not sleep overnight. defecated in shower. Mental Status Exam Mental Status Exam Narrative: adequately dressed and groomed. pacing the halls. minimally cooperative. speech decr in amount, nml latency. thoughts linear and logical in perfunctory interaction. affect constricted, normo-intense, non-labile. no SI/HI/AVH expressed, but behaviors c/w at the least AH. Diagnostics Vital Signs (24Hr): Vital Signs - 24 hr 01/06/23 20:00 01/07/23 08:10 Temperature 97.9 F 98.0 F Pulse Rate 109 H 95 Respiratory Rate 18 18 Blood Pressure 112/76 133/88 Pulse Oximetry 99 100 Oxygen Delivery Method Room Air Room Air BMI result Body Mass Index 24.9 Labs 12/23/22 09:53 12/23/22 09:53 Medications Medications Current Medications Acetaminophen (Acetaminophen 325 Mg Tablet) 650 mg PO Q6H PRN PRN Reason: Headache/Pain Mild Scale (1-3) Last Admin: 01/06/23 20:40 Dose: 650 mg Al Hydroxide/Mg Hydroxide (Magnesium Hydrox/Alum Hydrox 30 Ml Oral.Susp) 30 ml PO Q6H PRN PRN Reason: Heartburn/Nausea Benztropine Mesylate (Benztropine Mesylate 1 Mg Tablet) 1 mg PO BEDTIME [facility] Last Admin: 01/06/23 22:01 Dose: Not Given Chlorpromazine HCl (Chlorpromazine Hcl 25 Mg Tablet) 50 mg PO Q4H PRN PRN Reason: agitation Last Admin: 01/01/23 08:12 Dose: 50 mg Clonidine HCl (Clonidine Hcl 0.1 Mg Tablet) 0.1 mg PO Q2H PRN; Protocol PRN Reason: agitation/signs of opioid withdrawal Dicyclomine HCl (Dicyclomine Hcl 10 Mg Capsule) 10 mg PO QIDACHS PRN PRN Reason: cramps Last Admin: 01/06/23 09:51 Dose: 10 mg Divalproex Sodium (Divalproex Sodium 250 Mg Tablet.) 1,750 mg PO BEDTIME [facility] Last Admin: 01/06/23 22:01 Dose: Not Given Folic Acid (Folic Acid 1 Mg Tablet) 1 mg PO DAILY [facility] Last Admin: 01/07/23 09:17 Dose: 1 mg Haloperidol (Haloperidol 5 Mg Tablet) 10 mg PO BEDTIME [facility] Last Admin: 01/06/23 22:02 Dose: Not Given Hydroxyzine HCl (Hydroxyzine Hcl 25 Mg Tablet) 25 mg PO Q6H PRN PRN Reason: Anxiety Last Admin: 12/28/22 21:39 Dose: 25 mg Ibuprofen (Ibuprofen 400 Mg Tablet) 400 mg PO Q6H PRN PRN Reason: back pain Last Admin: 01/06/23 16:36 Dose: 400 mg Magnesium Hydroxide (Milk Of Magnesia 30 Ml Oral.Susp) 30 ml PO DAILY PRN PRN Reason: Constipation Nicotine (Nicotine 21 Mg Patch.Td24) 21 mg TRANSDERMA DAILY PRN PRN Reason: smoking cessation Nicotine Polacrilex (Nicotine Polacrilex 2 Mg Gum) 4 mg BUCCAL Q2H PRN PRN Reason: nicotine cravings Thiamine HCl (Thiamine Hcl 100 Mg Tablet) 100 mg PO DAILY [facility] Last Admin: 01/07/23 09:17 Dose: 100 mg Trazodone HCl (Trazodone Hcl 50 Mg Tablet) 50 mg PO BEDTIME MRX1 PRN PRN Reason: Insomnia Last Admin: 12/30/22 21:03 Dose: 50 mg Allergies Allergies Allergy/AdvReac Type Severity Reaction Status Date / Time morphine [MORPHINE] AdvReac Unknown NAUSEA Verified 12/10/22 19:56 Assessment & Plan Assessment & Plan (1) Opioid use disorder: Status: Acute Code(s): F11.90 - Opioid use, unspecified, uncomplicated (2) Cocaine use disorder: Status: Acute Code(s): F14.10 - Cocaine abuse, uncomplicated (3) Schizoaffective disorder, bipolar type: Status: Acute Code(s): F25.0 - Schizoaffective disorder, bipolar type Plan 12/24: attempt to give anti-psychotics. comfort meds for opioid and cocaine withdrawal. 12/25: refusing medications. period of agitation last night slamming doors and yelling (presumably @AH). continue current mgmt. 12/26: refusing meds. binging and purging. floridly psychotic. 12/27: had meds last night for sleep, per his request. schedule all haldol tonight with ativan and cogentin. a bit more interactive today, remains delayed and distracted. no binging/purgin behaviors or agitated behaviors described by RN report today. 12/28: refused meds last night. Today asks for meds for sx mgt- aggressive today-threw two coffee cups. Begin Depakote 250 mg bid. 12/29: got multiple meds last NOC and overnight per his request. slept 2 hours. refusing meds this morning. commitment paperwork completed. 3-day notice expires tomorrow. c/o opioid craving, asked for methadone. methadone 30 mg daily started today. 12/30: filed for commitment today. haldol and ativan per his request last night. appears in disbelief that he will not be discharged today. 12/31: demanding to leave, getting agitated, banging on nursing station, slamming doors in his room. given IMs x 2, haldol 10 ativan 2 benadryl 50 for first and thorazine 100 for second. 01/01: Remains unpredictable and irritable. Refusing scheduled medications. Section 7/ filed. 01/02: Continue current management. 01/03: refusing meds. irritable, labile. periods of agitation. continue current mgmt, awaiting hearing for . 01/04: refusing meds. irritable, labile. periods of agitation. continue current mgmt, though pt is refusing meds. 01/05: thought-blocked. denies mental illness or need for medications. offer medications. hearing tomorrow. 01/06: committed and ordered medications at hearing. [place]/20 [facility] [place] was discharged on VPA, zyprexa, haldol. 03/14/20 [place] summary reviewed, pt discharged on zyprexa, haldol. pt unable to comprehend result, agitated not to be leaving today. 01/07: copy of court order on unit, will order meds accordingly today. no change in presentation. Reason for continued inpatient stay Substantial Risk for: harm to self, harm to others and inability to function Time Spent With Patient Time: Total time managing care of this patient today __25__ minutes.
[2023-01-07 23:35] VITALS: RESP 18
--- NOTE | 2023-01-08 10:24 | HO.PSYCHPN ---
Subjective Subjective Date of Service: 01/08/23 Reason For Visit: Psychosis Subjective Notes: Section 8 Interim History: Patient was seen and discussed in rounds today. Records and plans were reviewed. He is on a Section 8. He continues to be pleasant but disorganized. Self dialogue is observed. Mostly isolative. Some pacing. Not attending any groups. It was reported that his med port is not flushing. I spoke with the hospitalist and she is going to order heparin flush. He has been ordered Haldol daily and I a.m. if refused. No complaints or side effects. No changes were made today Medication Compliance: Yes Side effects from medications: No Attending Groups: No Review of Systems Review of Systems Yes Unobtainable due to mental status Mental Status Exam Mental Status Exam Narrative: In today's visit he is alert, pleasant and minimally interactive. Thought processes are disorganized. Some self dialogue is present. No SI. Not assessed cognitively, more formally. Diagnostics Vital Signs (24Hr): Vital Signs - 24 hr 01/07/23 23:35 Respiratory Rate 18 BMI result Body Mass Index 24.9 Labs 12/23/22 09:53 12/23/22 09:53 Medications Medications Current Medications Acetaminophen (Acetaminophen 325 Mg Tablet) 650 mg PO Q6H PRN PRN Reason: Headache/Pain Mild Scale (1-3) Last Admin: 01/06/23 20:40 Dose: 650 mg Al Hydroxide/Mg Hydroxide (Magnesium Hydrox/Alum Hydrox 30 Ml Oral.Susp) 30 ml PO Q6H PRN PRN Reason: Heartburn/Nausea Benztropine Mesylate (Benztropine Mesylate 1 Mg Tablet) 1 mg PO BEDTIME [facility] Last Admin: 01/07/23 23:30 Dose: Not Given Chlorpromazine HCl (Chlorpromazine Hcl 25 Mg Tablet) 50 mg PO Q4H PRN PRN Reason: agitation Last Admin: 01/01/23 08:12 Dose: 50 mg Clonidine HCl (Clonidine Hcl 0.1 Mg Tablet) 0.1 mg PO Q2H PRN; Protocol PRN Reason: agitation/signs of opioid withdrawal Dicyclomine HCl (Dicyclomine Hcl 10 Mg Capsule) 10 mg PO QIDACHS PRN PRN Reason: cramps Last Admin: 01/06/23 09:51 Dose: 10 mg Divalproex Sodium (Divalproex Sodium 250 Mg Tablet.) 1,750 mg PO BEDTIME [facility] Last Admin: 01/07/23 23:30 Dose: Not Given Folic Acid (Folic Acid 1 Mg Tablet) 1 mg PO DAILY [facility] Last Admin: 01/07/23 09:17 Dose: 1 mg Haloperidol (Haloperidol 5 Mg Tablet) 10 mg PO BEDTIME [facility] Last Admin: 01/07/23 23:30 Dose: Not Given Haloperidol Lactate (Haloperidol Lactate 5 Mg/Ml Vial) 5 mg IM DAILY PRN PRN Reason: if PO refused Hydroxyzine HCl (Hydroxyzine Hcl 25 Mg Tablet) 25 mg PO Q6H PRN PRN Reason: Anxiety Last Admin: 12/28/22 21:39 Dose: 25 mg Ibuprofen (Ibuprofen 400 Mg Tablet) 400 mg PO Q6H PRN PRN Reason: back pain Last Admin: 01/06/23 16:36 Dose: 400 mg Magnesium Hydroxide (Milk Of Magnesia 30 Ml Oral.Susp) 30 ml PO DAILY PRN PRN Reason: Constipation Nicotine (Nicotine 21 Mg Patch.Td24) 21 mg TRANSDERMA DAILY PRN PRN Reason: smoking cessation Nicotine Polacrilex (Nicotine Polacrilex 2 Mg Gum) 4 mg BUCCAL Q2H PRN PRN Reason: nicotine cravings Thiamine HCl (Thiamine Hcl 100 Mg Tablet) 100 mg PO DAILY [facility] Last Admin: 01/07/23 09:17 Dose: 100 mg Trazodone HCl (Trazodone Hcl 50 Mg Tablet) 50 mg PO BEDTIME MRX1 PRN PRN Reason: Insomnia Last Admin: 12/30/22 21:03 Dose: 50 mg Allergies Allergies Allergy/AdvReac Type Severity Reaction Status Date / Time morphine [MORPHINE] AdvReac Unknown NAUSEA Verified 12/10/22 19:56 Assessment & Plan Assessment & Plan (1) Opioid use disorder: Status: Acute Code(s): F11.90 - Opioid use, unspecified, uncomplicated (2) Cocaine use disorder: Status: Acute Code(s): F14.10 - Cocaine abuse, uncomplicated (3) Schizoaffective disorder, bipolar type: Status: Acute Code(s): F25.0 - Schizoaffective disorder, bipolar type Plan 12/24: attempt to give anti-psychotics. comfort meds for opioid and cocaine withdrawal. 12/25: refusing medications. period of agitation last night slamming doors and yelling (presumably @). continue current mgmt. 12/26: refusing meds. binging and purging. floridly psychotic. 12/27: had meds last night for sleep, per his request. schedule all haldol tonight with ativan and cogentin. a bit more interactive today, remains delayed and distracted. no binging/purgin behaviors or agitated behaviors described by RN report today. 12/28: refused meds last night. Today asks for meds for sx mgt- aggressive today-threw two coffee cups. Begin Depakote 250 mg bid. 12/29: got multiple meds last NOC and overnight per his request. slept 2 hours. refusing meds this morning. commitment paperwork completed. 3-day notice expires tomorrow. c/o opioid craving, asked for methadone. methadone 30 mg daily started today. 12/30: filed for commitment today. haldol and ativan per his request last night. appears in disbelief that he will not be discharged today. 12/31: demanding to leave, getting agitated, banging on nursing station, slamming doors in his room. given IMs x 2, haldol 10 ativan 2 benadryl 50 for first and thorazine 100 for second. 01/01: Remains unpredictable and irritable. Refusing scheduled medications. Section 7/ filed. 01/02: Continue current management. 01/03: refusing meds. irritable, labile. periods of agitation. continue current mgmt, awaiting hearing for . 01/04: refusing meds. irritable, labile. periods of agitation. continue current mgmt, though pt is refusing meds. 01/05: thought-blocked. denies mental illness or need for medications. offer medications. hearing tomorrow. 01/06: committed and ordered medications at hearing. 06/12/20 [facility] [place], pt was discharged on VPA, zyprexa, haldol. 03/14/20 [place] summary reviewed, pt discharged on zyprexa, haldol. pt unable to comprehend result, agitated not to be leaving today. 01/07: copy of court order on unit, will order meds accordingly today. no change in presentation. 01/08: Continue current regimen and plans Reason for continued inpatient stay Substantial Risk for: med/psych decompensation Time Spent With Patient Time: Total time managing care of this patient today ____ minutes.
[2023-01-08] MEDS: HaloperidoL 5 MG TABLET 10 MG PO (17:50)
[2023-01-08 22:20] VITALS: RESP 18
--- NOTE | 2023-01-08 23:15 | PC.NURSE ---
Pt has depakote scheduled at [facility], order notes to give ativan IM if refuses po depakote per rian's order; however, there is currently no active order for IM ativan. Provider calculation reviewer (dr. lundberg) notified, stated that pt will not receive IM ativan tonight if refuses depakote.
[2023-01-09 08:00] VITALS: BP 122/80; PULSE 73; RESP 18; TEMP 36.3; O2SAT 98
--- NOTE | 2023-01-09 08:54 | HO.PSYCHPN ---
Subjective Subjective Date of Service: 01/09/23 Reason For Visit: Psychosis Subjective Notes: Section 8 Interim History: Patient was seen and discussed in rounds today. Records and plans were reviewed. He continues to be mostly withdrawn, pacing. Denies AVH. No SI. He does continue to be depressed. Sleeping and eating adequately. Has been taking medications with encouragement but he refused the Depakote last night. There is an order for Ativan 2 mg IM to be given if Depakote is refused but I did not see a point in that so I would will discontinue that order until seen by his primary psychiatrist Medication Compliance: Intermittent Side effects from medications: No Attending Groups: No Review of Systems Review of Systems Yes all other systems are reviewed and are negative Mental Status Exam Mental Status Exam Narrative: In today's visit he is alert, pleasant and minimally interactive. Thought processes are disorganized. Some self dialogue is present. No SI. Not assessed cognitively, more formally. Diagnostics Vital Signs (24Hr): Vital Signs - 24 hr 01/08/23 22:20 Respiratory Rate 18 BMI result Body Mass Index 24.9 Labs 12/23/22 09:53 12/23/22 09:53 Medications Medications Current Medications Acetaminophen (Acetaminophen 325 Mg Tablet) 650 mg PO Q6H PRN PRN Reason: Headache/Pain Mild Scale (1-3) Last Admin: 01/06/23 20:40 Dose: 650 mg Al Hydroxide/Mg Hydroxide (Magnesium Hydrox/Alum Hydrox 30 Ml Oral.Susp) 30 ml PO Q6H PRN PRN Reason: Heartburn/Nausea Benztropine Mesylate (Benztropine Mesylate 1 Mg Tablet) 1 mg PO BEDTIME [facility] Last Admin: 01/08/23 22:35 Dose: Not Given Chlorpromazine HCl (Chlorpromazine Hcl 25 Mg Tablet) 50 mg PO Q4H PRN PRN Reason: agitation Last Admin: 01/01/23 08:12 Dose: 50 mg Clonidine HCl (Clonidine Hcl 0.1 Mg Tablet) 0.1 mg PO Q2H PRN; Protocol PRN Reason: agitation/signs of opioid withdrawal Dicyclomine HCl (Dicyclomine Hcl 10 Mg Capsule) 10 mg PO QIDACHS PRN PRN Reason: cramps Last Admin: 01/06/23 09:51 Dose: 10 mg Divalproex Sodium (Divalproex Sodium 250 Mg Tablet.) 1,750 mg PO BEDTIME [facility] Last Admin: 01/08/23 22:35 Dose: Not Given Folic Acid (Folic Acid 1 Mg Tablet) 1 mg PO DAILY [facility] Last Admin: 01/08/23 10:31 Dose: Not Given Haloperidol (Haloperidol 5 Mg Tablet) 10 mg PO BEDTIME [facility] Last Admin: 01/08/23 17:50 Dose: 10 mg Haloperidol Lactate (Haloperidol Lactate 5 Mg/Ml Vial) 5 mg IM DAILY PRN PRN Reason: if PO refused Hydroxyzine HCl (Hydroxyzine Hcl 25 Mg Tablet) 25 mg PO Q6H PRN PRN Reason: Anxiety Last Admin: 12/28/22 21:39 Dose: 25 mg Ibuprofen (Ibuprofen 400 Mg Tablet) 400 mg PO Q6H PRN PRN Reason: back pain Last Admin: 01/06/23 16:36 Dose: 400 mg Magnesium Hydroxide (Milk Of Magnesia 30 Ml Oral.Susp) 30 ml PO DAILY PRN PRN Reason: Constipation Nicotine (Nicotine 21 Mg Patch.Td24) 21 mg TRANSDERMA DAILY PRN PRN Reason: smoking cessation Nicotine Polacrilex (Nicotine Polacrilex 2 Mg Gum) 4 mg BUCCAL Q2H PRN PRN Reason: nicotine cravings Thiamine HCl (Thiamine Hcl 100 Mg Tablet) 100 mg PO DAILY [facility] Last Admin: 01/08/23 10:31 Dose: Not Given Trazodone HCl (Trazodone Hcl 50 Mg Tablet) 50 mg PO BEDTIME MRX1 PRN PRN Reason: Insomnia Last Admin: 12/30/22 21:03 Dose: 50 mg Allergies Allergies Allergy/AdvReac Type Severity Reaction Status Date / Time morphine [MORPHINE] AdvReac Unknown NAUSEA Verified 12/10/22 19:56 Assessment & Plan Assessment & Plan (1) Opioid use disorder: Status: Acute Code(s): F11.90 - Opioid use, unspecified, uncomplicated (2) Cocaine use disorder: Status: Acute Code(s): F14.10 - Cocaine abuse, uncomplicated (3) Schizoaffective disorder, bipolar type: Status: Acute Code(s): F25.0 - Schizoaffective disorder, bipolar type Plan 12/24: attempt to give anti-psychotics. comfort meds for opioid and cocaine withdrawal. 12/25: refusing medications. period of agitation last night slamming doors and yelling (presumably @). continue current mgmt. 12/26: refusing meds. binging and purging. floridly psychotic. 12/27: had meds last night for sleep, per his request. schedule all haldol tonight with ativan and cogentin. a bit more interactive today, remains delayed and distracted. no binging/purgin behaviors or agitated behaviors described by RN report today. 12/28: refused meds last night. Today asks for meds for sx mgt- aggressive today-threw two coffee cups. Begin Depakote 250 mg bid. 12/29: got multiple meds last NOC and overnight per his request. slept 2 hours. refusing meds this morning. commitment paperwork completed. 3-day notice expires tomorrow. c/o opioid craving, asked for methadone. methadone 30 mg daily started today. 12/30: filed for commitment today. haldol and ativan per his request last night. appears in disbelief that he will not be discharged today. 12/31: demanding to leave, getting agitated, banging on nursing station, slamming doors in his room. given IMs x 2, haldol 10 ativan 2 benadryl 50 for first and thorazine 100 for second. 01/01: Remains unpredictable and irritable. Refusing scheduled medications. Section 7/ filed. 01/02: Continue current management. 01/03: refusing meds. irritable, labile. periods of agitation. continue current mgmt, awaiting hearing for . 01/04: refusing meds. irritable, labile. periods of agitation. continue current mgmt, though pt is refusing meds. 01/05: thought-blocked. denies mental illness or need for medications. offer medications. hearing tomorrow. 01/06: committed and ordered medications at hearing. [place] [facility] [place] pt was discharged on VPA, zyprexa, haldol. 03/14/20 [place] summary reviewed, pt discharged on zyprexa, haldol. pt unable to comprehend result, agitated not to be leaving today. 01/07: copy of court order on unit, will order meds accordingly today. no change in presentation. 01/08: Continue current regimen and plans 01/09: Continue current plans and regimen. Discontinue contingent IM Ativan if Depakote refused Patient educated on: therapeutic strategies Reason for continued inpatient stay Substantial Risk for: rapid decompensation Time Spent With Patient Time: Total time managing care of this patient today ____ minutes.
[2023-01-09 22:17] VITALS: RESP 18
[2023-01-09] MEDS: Haloperidol Lactate 5 MG/ML VIAL 10 MG IM (23:15)
[2023-01-10 08:24] VITALS: BP 121/67; PULSE 110; RESP 20; TEMP 36.8; O2SAT 97
--- NOTE | 2023-01-10 10:25 | HO.PSYCHPN ---
Subjective Subjective Date of Service: 01/10/23 Reason For Visit: Psychosis Subjective Notes: Section 8 Interim History: Patient was seen and discussed in rounds today. Records and plans were reviewed. He continues to be mostly in his room more pacing. No behavioral issues. No outburst. Self dialogue persisting. There was a discussion about his Depakote which I will look at an change. No complaints or side effects. He continues to refuse the Depakote anyway Medication Compliance: Intermittent Side effects from medications: No Attending Groups: No Review of Systems Review of Systems Yes all other systems are reviewed and are negative Mental Status Exam Mental Status Exam Narrative: In today's visit he is alert, pleasant and minimally interactive. Thought processes are disorganized. Some self dialogue is present. No SI. Not assessed cognitively, more formally. Diagnostics Vital Signs (24Hr): Vital Signs - 24 hr 01/09/23 22:17 01/10/23 08:24 Temperature 98.2 F Pulse Rate 110 H Respiratory Rate 18 20 Blood Pressure 121/67 Pulse Oximetry 97 Oxygen Delivery Method Room Air BMI result Body Mass Index 24.9 Labs 12/23/22 09:53 12/23/22 09:53 Medications Medications Current Medications Acetaminophen (Acetaminophen 325 Mg Tablet) 650 mg PO Q6H PRN PRN Reason: Headache/Pain Mild Scale (1-3) Last Admin: 01/06/23 20:40 Dose: 650 mg Al Hydroxide/Mg Hydroxide (Magnesium Hydrox/Alum Hydrox 30 Ml Oral.Susp) 30 ml PO Q6H PRN PRN Reason: Heartburn/Nausea Benztropine Mesylate (Benztropine Mesylate 1 Mg Tablet) 1 mg PO BEDTIME [facility] Last Admin: 01/09/23 22:50 Dose: Not Given Chlorpromazine HCl (Chlorpromazine Hcl 25 Mg Tablet) 50 mg PO Q4H PRN PRN Reason: agitation Last Admin: 01/01/23 08:12 Dose: 50 mg Clonidine HCl (Clonidine Hcl 0.1 Mg Tablet) 0.1 mg PO Q2H PRN; Protocol PRN Reason: agitation/signs of opioid withdrawal Dicyclomine HCl (Dicyclomine Hcl 10 Mg Capsule) 10 mg PO QIDACHS PRN PRN Reason: cramps Last Admin: 01/06/23 09:51 Dose: 10 mg Divalproex Sodium (Divalproex Sodium 250 Mg Tablet.) 1,750 mg PO BEDTIME [facility] Last Admin: 01/09/23 22:50 Dose: Not Given Folic Acid (Folic Acid 1 Mg Tablet) 1 mg PO DAILY [facility] Last Admin: 01/10/23 08:49 Dose: Not Given Haloperidol (Haloperidol 5 Mg Tablet) 10 mg PO BEDTIME [facility] Last Admin: 01/09/23 22:50 Dose: Not Given Haloperidol Lactate (Haloperidol Lactate 5 Mg/Ml Vial) 10 mg IM DAILY PRN PRN Reason: if PO refused Last Admin: 01/09/23 23:15 Dose: 10 mg Hydroxyzine HCl (Hydroxyzine Hcl 25 Mg Tablet) 25 mg PO Q6H PRN PRN Reason: Anxiety Last Admin: 12/28/22 21:39 Dose: 25 mg Ibuprofen (Ibuprofen 400 Mg Tablet) 400 mg PO Q6H PRN PRN Reason: back pain Last Admin: 01/06/23 16:36 Dose: 400 mg Magnesium Hydroxide (Milk Of Magnesia 30 Ml Oral.Susp) 30 ml PO DAILY PRN PRN Reason: Constipation Nicotine (Nicotine 21 Mg Patch.Td24) 21 mg TRANSDERMA DAILY PRN PRN Reason: smoking cessation Nicotine Polacrilex (Nicotine Polacrilex 2 Mg Gum) 4 mg BUCCAL Q2H PRN PRN Reason: nicotine cravings Thiamine HCl (Thiamine Hcl 100 Mg Tablet) 100 mg PO DAILY [facility] Last Admin: 01/10/23 08:49 Dose: Not Given Trazodone HCl (Trazodone Hcl 50 Mg Tablet) 50 mg PO BEDTIME MRX1 PRN PRN Reason: Insomnia Last Admin: 12/30/22 21:03 Dose: 50 mg Allergies Allergies Allergy/AdvReac Type Severity Reaction Status Date / Time morphine [MORPHINE] AdvReac Unknown NAUSEA Verified 12/10/22 19:56 Assessment & Plan Assessment & Plan (1) Opioid use disorder: Status: Acute Code(s): F11.90 - Opioid use, unspecified, uncomplicated (2) Cocaine use disorder: Status: Acute Code(s): F14.10 - Cocaine abuse, uncomplicated (3) Schizoaffective disorder, bipolar type: Status: Acute Code(s): F25.0 - Schizoaffective disorder, bipolar type Plan 12/24: attempt to give anti-psychotics. comfort meds for opioid and cocaine withdrawal. 12/25: refusing medications. period of agitation last night slamming doors and yelling (presumably @[facility]). continue current mgmt. 12/26: refusing meds. binging and purging. floridly psychotic. 12/27: had meds last night for sleep, per his request. schedule all haldol tonight with ativan and cogentin. a bit more interactive today, remains delayed and distracted. no binging/purgin behaviors or agitated behaviors described by RN report today. 12/28: refused meds last night. Today asks for meds for sx mgt- aggressive today-threw two coffee cups. Begin Depakote 250 mg bid. 12/29: got multiple meds last NOC and overnight per his request. slept 2 hours. refusing meds this morning. commitment paperwork completed. 3-day notice expires tomorrow. c/o opioid craving, asked for methadone. methadone 30 mg daily started today. 12/30: filed for commitment today. haldol and ativan per his request last night. appears in disbelief that he will not be discharged today. 12/31: demanding to leave, getting agitated, banging on nursing station, slamming doors in his room. given IMs x 2, haldol 10 ativan 2 benadryl 50 for first and thorazine 100 for second. 01/01: Remains unpredictable and irritable. Refusing scheduled medications. Section 7/ filed. 01/02: Continue current management. 01/03: refusing meds. irritable, labile. periods of agitation. continue current mgmt, awaiting hearing for . 01/04: refusing meds. irritable, labile. periods of agitation. continue current mgmt, though pt is refusing meds. 01/05: thought-blocked. denies mental illness or need for medications. offer medications. hearing tomorrow. 01/06: committed and ordered medications at hearing. 06/12/20 [facility] [place] DC summary reviewd, pt was discharged on VPA, zyprexa, haldol. 03/14/20 DC summary reviewed, pt discharged on zyprexa, haldol. pt unable to comprehend result, agitated not to be leaving today. 01/07: copy of court order on unit, will order meds accordingly today. no change in presentation. 01/08: Continue current regimen and plans 01/09: Continue current plans and regimen. Discontinue contingent IM Ativan if Depakote refused 01/10: Continue current regimen and plans Reason for continued inpatient stay Substantial Risk for: rapid decompensation Time Spent With Patient Time: Total time managing care of this patient today ____ minutes.
[2023-01-10] MEDS: Haloperidol Lactate 5 MG/ML VIAL 10 MG IM (20:22)
[2023-01-10 20:24] VITALS: BP 130/75; PULSE 93; TEMP 36.9; O2SAT 96
[2023-01-11 08:51] VITALS: BP 134/66; PULSE 86; RESP 20; TEMP 36.4; O2SAT 96
--- NOTE | 2023-01-11 14:34 | HO.PSYCHPN ---
Subjective Subjective Date of Service: 01/11/23 Reason For Visit: Psychosis Interim History: pt calm and cooperative. seems still to have difficulties processing and integrating information. states he prefers to receive haldol IM rather than PO. discuss VPA, pt states he does not want to take VPA. MD offers lithium and tegretol as alternative, pt states he wishes to take tegretol. MD informs pt he will prescribe tegretol and also informs pt that per court order ativan will be given if he refuses tegretol. per staff, pleasant, pacing. preoccupied. +RIS. not attending groups. snacking a lot. more pleasant. getting IM haldol aside from PO once over w/e. Mental Status Exam Mental Status Exam Narrative: adequately dressed and groomed. pacing the halls. more cooperative and engaging. speech normal in amount, latency. thoughts linear and illogical. affect constricted, normo-intense, non-labile. no SI/HI/AVH expressed, but behaviors c/w at the least AH. Diagnostics Vital Signs (24Hr): Vital Signs - 24 hr 01/10/23 20:24 01/11/23 08:51 Temperature 98.4 F 97.5 F Pulse Rate 93 86 Respiratory Rate 20 Blood Pressure 130/75 134/66 Pulse Oximetry 96 96 Oxygen Delivery Method Room Air Room Air BMI result Body Mass Index 24.9 Labs 12/23/22 09:53 12/23/22 09:53 Medications Medications Current Medications Acetaminophen (Acetaminophen 325 Mg Tablet) 650 mg PO Q6H PRN PRN Reason: Headache/Pain Mild Scale (1-3) Last Admin: 01/06/23 20:40 Dose: 650 mg Al Hydroxide/Mg Hydroxide (Magnesium Hydrox/Alum Hydrox 30 Ml Oral.Susp) 30 ml PO Q6H PRN PRN Reason: Heartburn/Nausea Benztropine Mesylate (Benztropine Mesylate 1 Mg Tablet) 1 mg PO BEDTIME [facility] Last Admin: 01/10/23 20:23 Dose: Not Given Chlorpromazine HCl (Chlorpromazine Hcl 25 Mg Tablet) 50 mg PO Q4H PRN PRN Reason: agitation Last Admin: 01/01/23 08:12 Dose: 50 mg Clonidine HCl (Clonidine Hcl 0.1 Mg Tablet) 0.1 mg PO Q2H PRN; Protocol PRN Reason: agitation/signs of opioid withdrawal Dicyclomine HCl (Dicyclomine Hcl 10 Mg Capsule) 10 mg PO QIDACHS PRN PRN Reason: cramps Last Admin: 01/06/23 09:51 Dose: 10 mg Divalproex Sodium (Divalproex Sodium Er 500 Mg Tab.Er.24h) 1,500 mg PO BEDTIME [facility] Last Admin: 01/10/23 20:23 Dose: Not Given Divalproex Sodium (Divalproex Sodium Er 250 Mg Tab.Er.24h) 250 mg PO BEDTIME [facility] Last Admin: 01/10/23 20:23 Dose: Not Given Folic Acid (Folic Acid 1 Mg Tablet) 1 mg PO DAILY [facility] Last Admin: 01/11/23 08:43 Dose: Not Given Haloperidol (Haloperidol 5 Mg Tablet) 10 mg PO BEDTIME [facility] Last Admin: 01/10/23 20:23 Dose: Not Given Haloperidol Lactate (Haloperidol Lactate 5 Mg/Ml Vial) 10 mg IM DAILY PRN PRN Reason: if PO refused Last Admin: 01/10/23 20:22 Dose: 10 mg Hydroxyzine HCl (Hydroxyzine Hcl 25 Mg Tablet) 25 mg PO Q6H PRN PRN Reason: Anxiety Last Admin: 12/28/22 21:39 Dose: 25 mg Ibuprofen (Ibuprofen 400 Mg Tablet) 400 mg PO Q6H PRN PRN Reason: back pain Last Admin: 01/06/23 16:36 Dose: 400 mg Magnesium Hydroxide (Milk Of Magnesia 30 Ml Oral.Susp) 30 ml PO DAILY PRN PRN Reason: Constipation Nicotine (Nicotine 21 Mg Patch.Td24) 21 mg TRANSDERMA DAILY PRN PRN Reason: smoking cessation Nicotine Polacrilex (Nicotine Polacrilex 2 Mg Gum) 4 mg BUCCAL Q2H PRN PRN Reason: nicotine cravings Thiamine HCl (Thiamine Hcl 100 Mg Tablet) 100 mg PO DAILY [facility] Last Admin: 01/11/23 08:43 Dose: Not Given Trazodone HCl (Trazodone Hcl 50 Mg Tablet) 50 mg PO BEDTIME MRX1 PRN PRN Reason: Insomnia Last Admin: 12/30/22 21:03 Dose: 50 mg Allergies Allergies Allergy/AdvReac Type Severity Reaction Status Date / Time morphine [MORPHINE] AdvReac Unknown NAUSEA Verified 12/10/22 19:56 Assessment & Plan Assessment & Plan (1) Opioid use disorder: Status: Acute Code(s): F11.90 - Opioid use, unspecified, uncomplicated (2) Cocaine use disorder: Status: Acute Code(s): F14.10 - Cocaine abuse, uncomplicated (3) Schizoaffective disorder, bipolar type: Status: Acute Code(s): F25.0 - Schizoaffective disorder, bipolar type Plan 12/24: attempt to give anti-psychotics. comfort meds for opioid and cocaine withdrawal. 12/25: refusing medications. period of agitation last night slamming doors and yelling (presumably @). continue current mgmt. 12/26: refusing meds. binging and purging. floridly psychotic. 12/27: had meds last night for sleep, per his request. schedule all haldol tonight with ativan and cogentin. a bit more interactive today, remains delayed and distracted. no binging/purgin behaviors or agitated behaviors described by RN report today. 12/28: refused meds last night. Today asks for meds for sx mgt- aggressive today-threw two coffee cups. Begin Depakote 250 mg bid. 12/29: got multiple meds last NOC and overnight per his request. slept 2 hours. refusing meds this morning. commitment paperwork completed. 3-day notice expires tomorrow. c/o opioid craving, asked for methadone. methadone 30 mg daily started today. 12/30: filed for commitment today. haldol and ativan per his request last night. appears in disbelief that he will not be discharged today. 12/31: demanding to leave, getting agitated, banging on nursing station, slamming doors in his room. given IMs x 2, haldol 10 ativan 2 benadryl 50 for first and thorazine 100 for second. 01/01: Remains unpredictable and irritable. Refusing scheduled medications. Section 7/ filed. 01/02: Continue current management. 01/03: refusing meds. irritable, labile. periods of agitation. continue current mgmt, awaiting hearing for . 01/04: refusing meds. irritable, labile. periods of agitation. continue current mgmt, though pt is refusing meds. 01/05: thought-blocked. denies mental illness or need for medications. offer medications. hearing tomorrow. 01/06: committed and ordered medications at hearing. 06/12/20 [facility] [place] summary reviewd, pt was discharged on VPA, zyprexa, haldol. 03/14/20 DC summary reviewed, pt discharged on zyprexa, haldol. pt unable to comprehend result, agitated not to be leaving today. 01/07: copy of court order on unit, will order meds accordingly today. no change in presentation. 01/08: Continue current regimen and plans 01/09: Continue current plans and regimen. Discontinue contingent IM Ativan if Depakote refused 01/10: Continue current regimen and plans. 01/11: DC VPA, start tegretol per pt preference. ativan 2 mg IM for refusal of tegretol. continue haldol PO/IM orders. improved from last week. less agitated, a bit more organized and engaging. Reason for continued inpatient stay Substantial Risk for: harm to self, inability to function and rapid decompensation Time Spent With Patient Time: Total time managing care of this patient today _25___ minutes.
[2023-01-11 19:40] VITALS: BP 128/74; PULSE 83; RESP 18; TEMP 36.4; O2SAT 98
[2023-01-11] MEDS: Haloperidol Lactate 5 MG/ML VIAL 10 MG IM (21:21)
[2023-01-11] MEDS: LORazepam 2 MG/ML VIAL IM (23:09)
--- NOTE | 2023-01-12 04:29 | PC.NURSE ---
Miguel Ángel has been awake and pacing the unit most of the shift. he was disruptive to his roommate via turning the light on and off and making unnecessary noise. patient declined PO medications and received IM back-ups per Chema odonnell
[2023-01-12 08:10] VITALS: BP 118/91; PULSE 90; RESP 16; TEMP 36.6; O2SAT 98
[2023-01-12] MEDS: carBAMazepine ER 200 MG TAB.ER.12H PO (09:17)
[2023-01-12] MEDS: Acetaminophen 325 MG TABLET 650 MG PO (09:18)
--- NOTE | 2023-01-12 14:03 | HO.PSYCHPN ---
Subjective Subjective Date of Service: 01/12/23 Reason For Visit: Psychosis Interim History: pt pacing the green, asking for any status updates. he was encouraged to take tegretol, which he had expressed an interest in taking yesterday. he appeared to have difficulty recalling or processing the information presented by . no other complaints or requests. per staff, pacing. keeps to himself. showered. snacking. refused [facility] services. refused PO meds last NOC. flipping lights on and off all NOC so that roommate moved mattress to sensory room and slept there. appeared to have slept from [id number]. Mental Status Exam Mental Status Exam Narrative: adequately dressed and groomed. pacing the halls. more cooperative and engaging. speech normal in amount, latency. thoughts seemingly somewhat disorganized. affect constricted, hyper-intense, non-labile. no SI/HI/AVH expressed, but behaviors c/w at the least AH. Diagnostics Vital Signs (24Hr): Vital Signs - 24 hr 01/11/23 19:40 01/12/23 08:10 Temperature 97.5 F 97.9 F Pulse Rate 83 90 Respiratory Rate 18 16 Blood Pressure 128/74 118/91 H Pulse Oximetry 98 98 Oxygen Delivery Method Room Air Room Air BMI result Body Mass Index 24.9 Labs 12/23/22 09:53 12/23/22 09:53 Medications Medications Current Medications Acetaminophen (Acetaminophen 325 Mg Tablet) 650 mg PO Q6H PRN PRN Reason: Headache/Pain Mild Scale (1-3) Last Admin: 01/12/23 09:18 Dose: 650 mg Al Hydroxide/Mg Hydroxide (Magnesium Hydrox/Alum Hydrox 30 Ml Oral.Susp) 30 ml PO Q6H PRN PRN Reason: Heartburn/Nausea Benztropine Mesylate (Benztropine Mesylate 1 Mg Tablet) 1 mg PO BEDTIME [facility] Last Admin: 01/11/23 21:27 Dose: Not Given Carbamazepine (Carbamazepine Er 200 Mg Tab.Er.12h) 200 mg PO BID [facility] Last Admin: 01/12/23 09:17 Dose: 200 mg Chlorpromazine HCl (Chlorpromazine Hcl 25 Mg Tablet) 50 mg PO Q4H PRN PRN Reason: agitation Last Admin: 01/01/23 08:12 Dose: 50 mg Clonidine HCl (Clonidine Hcl 0.1 Mg Tablet) 0.1 mg PO Q2H PRN; Protocol PRN Reason: agitation/signs of opioid withdrawal Dicyclomine HCl (Dicyclomine Hcl 10 Mg Capsule) 10 mg PO QIDACHS PRN PRN Reason: cramps Last Admin: 01/06/23 09:51 Dose: 10 mg Folic Acid (Folic Acid 1 Mg Tablet) 1 mg PO DAILY [facility] Last Admin: 01/12/23 09:34 Dose: Not Given Haloperidol (Haloperidol 5 Mg Tablet) 10 mg PO BEDTIME [facility] Last Admin: 01/11/23 21:27 Dose: Not Given Haloperidol Lactate (Haloperidol Lactate 5 Mg/Ml Vial) 10 mg IM DAILY PRN PRN Reason: if PO refused Last Admin: 01/11/23 21:21 Dose: 10 mg Hydroxyzine HCl (Hydroxyzine Hcl 25 Mg Tablet) 25 mg PO Q6H PRN PRN Reason: Anxiety Last Admin: 12/28/22 21:39 Dose: 25 mg Ibuprofen (Ibuprofen 400 Mg Tablet) 400 mg PO Q6H PRN PRN Reason: back pain Last Admin: 01/06/23 16:36 Dose: 400 mg Lorazepam (Lorazepam 2 Mg/Ml Vial) 2 mg IM BID PRN PRN Reason: refusal of tegretol Last Admin: 01/11/23 23:09 Dose: 2 mg Magnesium Hydroxide (Milk Of Magnesia 30 Ml Oral.Susp) 30 ml PO DAILY PRN PRN Reason: Constipation Nicotine (Nicotine 21 Mg Patch.Td24) 21 mg TRANSDERMA DAILY PRN PRN Reason: smoking cessation Nicotine Polacrilex (Nicotine Polacrilex 2 Mg Gum) 4 mg BUCCAL Q2H PRN PRN Reason: nicotine cravings Thiamine HCl (Thiamine Hcl 100 Mg Tablet) 100 mg PO DAILY [facility] Last Admin: 01/12/23 09:34 Dose: Not Given Trazodone HCl (Trazodone Hcl 50 Mg Tablet) 50 mg PO BEDTIME MRX1 PRN PRN Reason: Insomnia Last Admin: 12/30/22 21:03 Dose: 50 mg Allergies Allergies Allergy/AdvReac Type Severity Reaction Status Date / Time morphine [MORPHINE] AdvReac Unknown NAUSEA Verified 12/10/22 19:56 Assessment & Plan Assessment & Plan (1) Opioid use disorder: Status: Acute Code(s): F11.90 - Opioid use, unspecified, uncomplicated (2) Cocaine use disorder: Status: Acute Code(s): F14.10 - Cocaine abuse, uncomplicated (3) Schizoaffective disorder, bipolar type: Status: Acute Code(s): F25.0 - Schizoaffective disorder, bipolar type Plan 12/24: attempt to give anti-psychotics. comfort meds for opioid and cocaine withdrawal. 12/25: refusing medications. period of agitation last night slamming doors and yelling (presumably @[facility]). continue current mgmt. 12/26: refusing meds. binging and purging. floridly psychotic. 12/27: had meds last night for sleep, per his request. schedule all haldol tonight with ativan and cogentin. a bit more interactive today, remains delayed and distracted. no binging/purgin behaviors or agitated behaviors described by RN report today. 12/28: refused meds last night. Today asks for meds for sx mgt- aggressive today-threw two coffee cups. Begin Depakote 250 mg bid. 12/29: got multiple meds last NOC and overnight per his request. slept 2 hours. refusing meds this morning. commitment paperwork completed. 3-day notice expires tomorrow. c/o opioid craving, asked for methadone. methadone 30 mg daily started today. 12/30: filed for commitment today. haldol and ativan per his request last night. appears in disbelief that he will not be discharged today. 12/31: demanding to leave, getting agitated, banging on nursing station, slamming doors in his room. given IMs x 2, haldol 10 ativan 2 benadryl 50 for first and thorazine 100 for second. 01/01: Remains unpredictable and irritable. Refusing scheduled medications. Section 7/ filed. 01/02: Continue current management. 01/03: refusing meds. irritable, labile. periods of agitation. continue current mgmt, awaiting hearing for . 01/04: refusing meds. irritable, labile. periods of agitation. continue current mgmt, though pt is refusing meds. 01/05: thought-blocked. denies mental illness or need for medications. offer medications. hearing tomorrow. 01/06: committed and ordered medications at hearing. 06[place] [facility] [place], pt was discharged on VPA, zyprexa, haldol. 03/14/20 DC summary reviewed, pt discharged on zyprexa, haldol. pt unable to comprehend result, agitated not to be leaving today. 01/07: copy of court order on unit, will order meds accordingly today. no change in presentation. 01/08: Continue current regimen and plans 01/09: Continue current plans and regimen. Discontinue contingent IM Ativan if Depakote refused 01/10: Continue current regimen and plans. 01/11: DC VPA, start tegretol per pt preference. ativan 2 mg IM for refusal of tegretol. continue haldol PO/IM orders. improved from last week. less agitated, a bit more organized and engaging. 01/12: appears more disorganized again today, trouble engaging. refused PO meds last night but did take tegretol PO this morning. Reason for continued inpatient stay Substantial Risk for: harm to self, harm to others, inability to function and rapid decompensation Time Spent With Patient Time: Total time managing care of this patient today __25__ minutes.
[2023-01-12 18:00] VITALS: BP 134/80; PULSE 96; RESP 18; TEMP 36.9; O2SAT 97
[2023-01-12] MEDS: LORazepam 2 MG/ML VIAL IM (21:45)
[2023-01-12] MEDS: Haloperidol Lactate 5 MG/ML VIAL 10 MG IM (21:45)
[2023-01-13 06:00] VITALS: BP 121/75; PULSE 93; RESP 16; TEMP 36.3; O2SAT 97
[2023-01-13 07:00] VITALS: BMI 25.5
[2023-01-13] MEDS: LORazepam 2 MG/ML VIAL IM (09:09)
[2023-01-13] MEDS: Acetaminophen 325 MG TABLET 650 MG PO (11:27)
--- NOTE | 2023-01-13 14:42 | P.PNPSI_ITS ---
Subjective Subjective Date of Service: 01/13/23 Reason For Visit: Psychosis Interim History: pacing the green, asking for status. encouraged to be compliant with PO medications. apparently agitated earlier today, throwing a coffee cup across his room. took meds PO yesterday morning, but not since. slept 10 hours last night. Mental Status Exam Mental Status Exam Narrative: adequately dressed and groomed. pacing the halls. cooperative the apparent extent of his abilities. speech decr in amount, incr latency. thoughts seemingly somewhat disorganized. affect constricted, hyper-intense, non-labile. no SI/HI/AVH expressed, but behaviors c/w at the least AH. Diagnostics Vital Signs (24Hr): Vital Signs - 24 hr 01/12/23 18:00 01/13/23 06:00 Temperature 98.4 F 97.3 F Pulse Rate 96 93 Respiratory Rate 18 16 Blood Pressure 134/80 121/75 Pulse Oximetry 97 97 Oxygen Delivery Method Room Air Room Air BMI result Body Mass Index 25.5 Labs 12/23/22 09:53 12/23/22 09:53 Medications Medications Current Medications Acetaminophen (Acetaminophen 325 Mg Tablet) 650 mg PO Q6H PRN PRN Reason: Headache/Pain Mild Scale (1-3) Last Admin: 01/13/23 11:27 Dose: 650 mg Al Hydroxide/Mg Hydroxide (Magnesium Hydrox/Alum Hydrox 30 Ml Oral.Susp) 30 ml PO Q6H PRN PRN Reason: Heartburn/Nausea Benztropine Mesylate (Benztropine Mesylate 1 Mg Tablet) 1 mg PO BEDTIME [facility] Last Admin: 01/12/23 21:24 Dose: Not Given Carbamazepine (Carbamazepine Er 200 Mg Tab.Er.12h) 200 mg PO BID [facility] Last Admin: 01/13/23 09:00 Dose: Not Given Chlorpromazine HCl (Chlorpromazine Hcl 25 Mg Tablet) 50 mg PO Q4H PRN PRN Reason: agitation Last Admin: 01/01/23 08:12 Dose: 50 mg Clonidine HCl (Clonidine Hcl 0.1 Mg Tablet) 0.1 mg PO Q2H PRN; Protocol PRN Reason: agitation/signs of opioid withdrawal Dicyclomine HCl (Dicyclomine Hcl 10 Mg Capsule) 10 mg PO QIDACHS PRN PRN Reason: cramps Last Admin: 01/06/23 09:51 Dose: 10 mg Folic Acid (Folic Acid 1 Mg Tablet) 1 mg PO DAILY [facility] Last Admin: 01/13/23 09:37 Dose: Not Given Haloperidol (Haloperidol 5 Mg Tablet) 10 mg PO BEDTIME [facility] Last Admin: 01/12/23 21:25 Dose: Not Given Haloperidol Lactate (Haloperidol Lactate 5 Mg/Ml Vial) 10 mg IM DAILY PRN PRN Reason: if PO refused Last Admin: 01/12/23 21:45 Dose: 10 mg Hydroxyzine HCl (Hydroxyzine Hcl 25 Mg Tablet) 25 mg PO Q6H PRN PRN Reason: Anxiety Last Admin: 12/28/22 21:39 Dose: 25 mg Ibuprofen (Ibuprofen 400 Mg Tablet) 400 mg PO Q6H PRN PRN Reason: back pain Last Admin: 01/06/23 16:36 Dose: 400 mg Lorazepam (Lorazepam 2 Mg/Ml Vial) 2 mg IM BID PRN PRN Reason: refusal of tegretol Last Admin: 01/13/23 09:09 Dose: 2 mg Magnesium Hydroxide (Milk Of Magnesia 30 Ml Oral.Susp) 30 ml PO DAILY PRN PRN Reason: Constipation Nicotine (Nicotine 21 Mg Patch.Td24) 21 mg TRANSDERMA DAILY PRN PRN Reason: smoking cessation Nicotine Polacrilex (Nicotine Polacrilex 2 Mg Gum) 4 mg BUCCAL Q2H PRN PRN Reason: nicotine cravings Thiamine HCl (Thiamine Hcl 100 Mg Tablet) 100 mg PO DAILY [facility] Last Admin: 01/13/23 09:37 Dose: Not Given Trazodone HCl (Trazodone Hcl 50 Mg Tablet) 50 mg PO BEDTIME MRX1 PRN PRN Reason: Insomnia Last Admin: 12/30/22 21:03 Dose: 50 mg Allergies Allergies Allergy/AdvReac Type Severity Reaction Status Date / Time morphine [MORPHINE] AdvReac Unknown NAUSEA Verified 12/10/22 19:56 Assessment & Plan Assessment & Plan (1) Opioid use disorder: Status: Acute Code(s): F11.90 - Opioid use, unspecified, uncomplicated (2) Cocaine use disorder: Status: Acute Code(s): F14.10 - Cocaine abuse, uncomplicated (3) Schizoaffective disorder, bipolar type: Status: Acute Code(s): F25.0 - Schizoaffective disorder, bipolar type Plan 12/24: attempt to give anti-psychotics. comfort meds for opioid and cocaine withdrawal. 12/25: refusing medications. period of agitation last night slamming doors and yelling (presumably @). continue current mgmt. 12/26: refusing meds. binging and purging. floridly psychotic. 12/27: had meds last night for sleep, per his request. schedule all haldol tonight with ativan and cogentin. a bit more interactive today, remains delayed and distracted. no binging/purgin behaviors or agitated behaviors described by RN report today. 12/28: refused meds last night. Today asks for meds for sx mgt- aggressive today- threw two coffee cups. Begin Depakote 250 mg bid. 12/29: got multiple meds last NOC and overnight per his request. slept 2 hours. refusing meds this morning. commitment paperwork completed. 3-day notice expires tomorrow. c/o opioid craving, asked for methadone. methadone 30 mg daily started today. 12/30: filed for commitment today. haldol and ativan per his request last night. appears in disbelief that he will not be discharged today. 12/31: demanding to leave, getting agitated, banging on nursing station, slamming doors in his room. given IMs x 2, haldol 10 ativan 2 benadryl 50 for first and thorazine 100 for second. 01/01: Remains unpredictable and irritable. Refusing scheduled medications. Section 7/ filed. 01/02: Continue current management. 01/03: refusing meds. irritable, labile. periods of agitation. continue current mgmt, awaiting hearing for . 01/04: refusing meds. irritable, labile. periods of agitation. continue current mgmt, though pt is refusing meds. 01/05: thought-blocked. denies mental illness or need for medications. offer medications. hearing tomorrow. 01/06: committed and ordered medications at hearing. 06/12/20 [facility] [place] summary reviewd, pt was discharged on VPA, zyprexa, haldol. 03/14/20 DC summary reviewed, pt discharged on zyprexa, haldol. pt unable to comprehend result, agitated not to be leaving today. 01/07: copy of court order on unit, will order meds accordingly today. no change in presentation. 01/08: Continue current regimen and plans 01/09: Continue current plans and regimen. Discontinue contingent IM Ativan if Depakote refused 01/10: Continue current regimen and plans. 01/11: DC VPA, start tegretol per pt preference. ativan 2 mg IM for refusal of tegretol. continue haldol PO/IM orders. improved from last week. less agitated, a bit more organized and engaging. 01/12: appears more disorganized again today, trouble engaging. refused PO meds last night but did take tegretol PO this morning. 01/13: continues disorganized, difficulty expressing himself. refusing PO meds since yesterday morning. slept 10 hours last night, however, Reason for continued inpatient stay Substantial Risk for: harm to self, harm to others, inability to function and rapid decompensation Time Spent With Patient Time: Total time managing care of this patient today __25__ minutes.
[2023-01-13 18:00] VITALS: BP 123/70; PULSE 100; RESP 18; TEMP 36.4; O2SAT 97
[2023-01-13] MEDS: Haloperidol Lactate 5 MG/ML VIAL 10 MG IM (21:41)
[2023-01-13] MEDS: carBAMazepine ER 200 MG TAB.ER.12H PO (21:41)
[2023-01-13] MEDS: Benztropine Mesylate 1 MG TABLET PO (21:41)
[2023-01-14 08:15] VITALS: BP 127/61; PULSE 82; RESP 18; TEMP 36.3; O2SAT 99
[2023-01-14] MEDS: carBAMazepine ER 200 MG TAB.ER.12H PO ×2 (09:22→18:53)
[2023-01-14] MEDS: Thiamine HCL 100 MG TABLET PO (09:22)
--- NOTE | 2023-01-14 14:10 | HO.PSYCHPN ---
Subjective Subjective Date of Service: 01/14/23 Reason For Visit: Psychosis Interim History: ambulating about the milieu, minimal interactions with others. per staff, not attending groups, +RIS, paranoid. had IMs last night. eves last night he took tegretol and cogentin PO, haldol IM. Mental Status Exam Mental Status Exam Narrative: adequately dressed and groomed. pacing the halls. cooperative the apparent extent of his abilities. speech decr in amount, incr latency. thoughts seemingly somewhat disorganized. affect constricted, hyper-intense, non-labile. no SI/HI/AVH expressed, but behaviors c/w at the least AH. Diagnostics Vital Signs (24Hr): Vital Signs - 24 hr 01/13/23 18:00 01/14/23 08:15 Temperature 97.6 F 97.4 F Pulse Rate 100 82 Respiratory Rate 18 18 Blood Pressure 123/70 127/61 Pulse Oximetry 97 99 Oxygen Delivery Method Room Air Room Air BMI result Body Mass Index 25.5 Labs 12/23/22 09:53 12/23/22 09:53 Medications Medications Current Medications Acetaminophen (Acetaminophen 325 Mg Tablet) 650 mg PO Q6H PRN PRN Reason: Headache/Pain Mild Scale (1-3) Last Admin: 01/13/23 11:27 Dose: 650 mg Al Hydroxide/Mg Hydroxide (Magnesium Hydrox/Alum Hydrox 30 Ml Oral.Susp) 30 ml PO Q6H PRN PRN Reason: Heartburn/Nausea Benztropine Mesylate (Benztropine Mesylate 1 Mg Tablet) 1 mg PO BEDTIME [facility] Last Admin: 01/13/23 21:41 Dose: 1 mg Carbamazepine (Carbamazepine Er 200 Mg Tab.Er.12h) 200 mg PO BID [facility] Last Admin: 01/14/23 09:22 Dose: 200 mg Chlorpromazine HCl (Chlorpromazine Hcl 25 Mg Tablet) 50 mg PO Q4H PRN PRN Reason: agitation Last Admin: 01/01/23 08:12 Dose: 50 mg Clonidine HCl (Clonidine Hcl 0.1 Mg Tablet) 0.1 mg PO Q2H PRN; Protocol PRN Reason: agitation/signs of opioid withdrawal Dicyclomine HCl (Dicyclomine Hcl 10 Mg Capsule) 10 mg PO QIDACHS PRN PRN Reason: cramps Last Admin: 01/06/23 09:51 Dose: 10 mg Folic Acid (Folic Acid 1 Mg Tablet) 1 mg PO DAILY [facility] Last Admin: 01/14/23 09:30 Dose: Not Given Haloperidol (Haloperidol 5 Mg Tablet) 10 mg PO BEDTIME [facility] Last Admin: 01/13/23 23:26 Dose: Not Given Haloperidol Lactate (Haloperidol Lactate 5 Mg/Ml Vial) 10 mg IM DAILY PRN PRN Reason: if PO refused Last Admin: 01/13/23 21:41 Dose: 10 mg Hydroxyzine HCl (Hydroxyzine Hcl 25 Mg Tablet) 25 mg PO Q6H PRN PRN Reason: Anxiety Last Admin: 12/28/22 21:39 Dose: 25 mg Ibuprofen (Ibuprofen 400 Mg Tablet) 400 mg PO Q6H PRN PRN Reason: back pain Last Admin: 01/06/23 16:36 Dose: 400 mg Lorazepam (Lorazepam 2 Mg/Ml Vial) 2 mg IM BID PRN PRN Reason: refusal of tegretol Last Admin: 01/13/23 09:09 Dose: 2 mg Magnesium Hydroxide (Milk Of Magnesia 30 Ml Oral.Susp) 30 ml PO DAILY PRN PRN Reason: Constipation Nicotine (Nicotine 21 Mg Patch.Td24) 21 mg TRANSDERMA DAILY PRN PRN Reason: smoking cessation Nicotine Polacrilex (Nicotine Polacrilex 2 Mg Gum) 4 mg BUCCAL Q2H PRN PRN Reason: nicotine cravings Thiamine HCl (Thiamine Hcl 100 Mg Tablet) 100 mg PO DAILY [facility] Last Admin: 01/14/23 09:22 Dose: 100 mg Trazodone HCl (Trazodone Hcl 50 Mg Tablet) 50 mg PO BEDTIME MRX1 PRN PRN Reason: Insomnia Last Admin: 12/30/22 21:03 Dose: 50 mg Allergies Allergies Allergy/AdvReac Type Severity Reaction Status Date / Time morphine [MORPHINE] AdvReac Unknown NAUSEA Verified 12/10/22 19:56 Assessment & Plan Assessment & Plan (1) Opioid use disorder: Status: Acute Code(s): F11.90 - Opioid use, unspecified, uncomplicated (2) Cocaine use disorder: Status: Acute Code(s): F14.10 - Cocaine abuse, uncomplicated (3) Schizoaffective disorder, bipolar type: Status: Acute Code(s): F25.0 - Schizoaffective disorder, bipolar type Plan 12/24: attempt to give anti-psychotics. comfort meds for opioid and cocaine withdrawal. 12/25: refusing medications. period of agitation last night slamming doors and yelling (presumably @AH). continue current mgmt. 12/26: refusing meds. binging and purging. floridly psychotic. 12/27: had meds last night for sleep, per his request. schedule all haldol tonight with ativan and cogentin. a bit more interactive today, remains delayed and distracted. no binging/purgin behaviors or agitated behaviors described by RN report today. 12/28: refused meds last night. Today asks for meds for sx mgt- aggressive today-threw two coffee cups. Begin Depakote 250 mg bid. 12/29: got multiple meds last NOC and overnight per his request. slept 2 hours. refusing meds this morning. commitment paperwork completed. 3-day notice expires tomorrow. c/o opioid craving, asked for methadone. methadone 30 mg daily started today. 12/30: filed for commitment today. haldol and ativan per his request last night. appears in disbelief that he will not be discharged today. 12/31: demanding to leave, getting agitated, banging on nursing station, slamming doors in his room. given IMs x 2, haldol 10 ativan 2 benadryl 50 for first and thorazine 100 for second. 01/01: Remains unpredictable and irritable. Refusing scheduled medications. Section 7/ filed. 01/02: Continue current management. 01/03: refusing meds. irritable, labile. periods of agitation. continue current mgmt, awaiting hearing for . 01/04: refusing meds. irritable, labile. periods of agitation. continue current mgmt, though pt is refusing meds. 01/05: thought-blocked. denies mental illness or need for medications. offer medications. hearing tomorrow. 01/06: committed and ordered medications at hearing. 06/12/20 [facility] [place] DC summary reviewd, pt was discharged on VPA, zyprexa, haldol. 03/14/20 DC summary reviewed, pt discharged on zyprexa, haldol. pt unable to comprehend result, agitated not to be leaving today. 01/07: copy of court order on unit, will order meds accordingly today. no change in presentation. 01/08: Continue current regimen and plans 01/09: Continue current plans and regimen. Discontinue contingent IM Ativan if Depakote refused 01/10: Continue current regimen and plans. 01/11: DC VPA, start tegretol per pt preference. ativan 2 mg IM for refusal of tegretol. continue haldol PO/IM orders. improved from last week. less agitated, a bit more organized and engaging. 01/12: appears more disorganized again today, trouble engaging. refused PO meds last night but did take tegretol PO this morning. 01/13: continues disorganized, difficulty expressing himself. refusing PO meds since yesterday morning. slept 10 hours last night, however 01/14: intermittently taking meds PO versus IM. improved behavior from prior to med order, but remains floridly psychotic. continue current mgmt. Reason for continued inpatient stay Substantial Risk for: harm to self, harm to others, inability to function and rapid decompensation Time Spent With Patient Time: Total time managing care of this patient today ____ minutes.
[2023-01-14] MEDS: Benztropine Mesylate 1 MG TABLET PO (18:54)
[2023-01-14 19:04] VITALS: BP 130/78; PULSE 88; RESP 18; TEMP 36.3; O2SAT 97
[2023-01-14] MEDS: Haloperidol Lactate 5 MG/ML VIAL 10 MG IM (19:19)
[2023-01-15] MEDS: chlorproMAZINE HCl 25 MG TABLET 50 MG PO (06:02)
[2023-01-15] MEDS: cloNIDine HCL 0.1 MG TABLET PO (06:02)
[2023-01-15] MEDS: carBAMazepine ER 200 MG TAB.ER.12H PO ×2 (08:45→21:03)
[2023-01-15] MEDS: Folic Acid 1 MG TABLET PO (08:45)
[2023-01-15] MEDS: Thiamine HCL 100 MG TABLET PO (08:45)
[2023-01-15 08:48] VITALS: BP 122/62; PULSE 85; RESP 18; TEMP 36.3; O2SAT 97
[2023-01-15] MEDS: Acetaminophen 325 MG TABLET 650 MG PO ×2 (11:12→16:07)
[2023-01-15] MEDS: Ibuprofen 400 MG TABLET PO ×2 (14:17→16:08)
--- NOTE | 2023-01-15 15:59 | P.PNPSI_ITS ---
Subjective Subjective Date of Service: 01/15/23 Reason For Visit: Psychosis Subjective Notes: Bear Order and Section 8 Medical Problems Affecting Mental Status: No Interim History: met with patient. Discussed with Nursing. Accepting oral medications. Initially pleasant with director underwriter sales. States that things are getting better and hallucinations are around 3-4 times per day verses constantly throughout the day prior to admission. Non command in nature. Upset regarding no coffee on the unit. Denied medication side effects. Sleep is okay. At the end of this interaction, for no clear reason or notable trigger, became very irritable and guarded with director underwriter sales making racial comments in [place] toward director underwriter sales. Medication Compliance: Yes Side effects from medications: No Attending Groups: Intermittent Review of Systems Acute medical concerns: No Review of Systems Review of Systems back pain Mental Status Exam Mental Status Exam Narrative: initially pleasant and engaged. Casually dressed. Fair self-care. Headphones. No evidence depression. Later irritable, guarded and paranoid. No evidence of SI or HI. . Endorses hallucinations non command Diagnostics Vital Signs (24Hr): Vital Signs - 24 hr 01/14/23 19:04 01/15/23 08:48 Temperature 97.4 F 97.3 F Pulse Rate 88 85 Respiratory Rate 18 18 Blood Pressure 130/78 122/62 Pulse Oximetry 97 97 Oxygen Delivery Method Room Air Room Air BMI result Body Mass Index 25.5 Labs 12/23/22 09:53 12/23/22 09:53 Medications Medications Current Medications Acetaminophen (Acetaminophen 325 Mg Tablet) 650 mg PO Q6H PRN PRN Reason: Headache/Pain Mild Scale (1-3) Last Admin: 01/15/23 11:12 Dose: 650 mg Al Hydroxide/Mg Hydroxide (Magnesium Hydrox/Alum Hydrox 30 Ml Oral.Susp) 30 ml PO Q6H PRN PRN Reason: Heartburn/Nausea Benztropine Mesylate (Benztropine Mesylate 1 Mg Tablet) 1 mg PO BEDTIME [facility] Last Admin: 01/14/23 18:54 Dose: 1 mg Carbamazepine (Carbamazepine Er 200 Mg Tab.Er.12h) 200 mg PO BID [facility] Last Admin: 01/15/23 08:45 Dose: 200 mg Chlorpromazine HCl (Chlorpromazine Hcl 25 Mg Tablet) 50 mg PO Q4H PRN PRN Reason: agitation Last Admin: 09/09/23 06:02 Dose: 50 mg Clonidine HCl (Clonidine Hcl 0.1 Mg Tablet) 0.1 mg PO Q2H PRN; Protocol PRN Reason: agitation/signs of opioid withdrawal Last Admin: 01/15/23 06:02 Dose: 0.1 mg Dicyclomine HCl (Dicyclomine Hcl 10 Mg Capsule) 10 mg PO QIDACHS PRN PRN Reason: cramps Last Admin: 01/06/23 09:51 Dose: 10 mg Folic Acid (Folic Acid 1 Mg Tablet) 1 mg PO DAILY [facility] Last Admin: 01/15/23 08:45 Dose: 1 mg Haloperidol (Haloperidol 5 Mg Tablet) 10 mg PO BEDTIME [facility] Last Admin: 01/14/23 19:23 Dose: Not Given Haloperidol Lactate (Haloperidol Lactate 5 Mg/Ml Vial) 10 mg IM DAILY PRN PRN Reason: if PO refused Last Admin: 01/14/23 19:19 Dose: 10 mg Hydroxyzine HCl (Hydroxyzine Hcl 25 Mg Tablet) 25 mg PO Q6H PRN PRN Reason: Anxiety Last Admin: 12/28/22 21:39 Dose: 25 mg Ibuprofen (Ibuprofen 800 Mg Tablet) 800 mg PO TID PRN PRN Reason: back pain Lorazepam (Lorazepam 2 Mg/Ml Vial) 2 mg IM BID PRN PRN Reason: refusal of tegretol Last Admin: 01/13/23 09:09 Dose: 2 mg Magnesium Hydroxide (Milk Of Magnesia 30 Ml Oral.Susp) 30 ml PO DAILY PRN PRN Reason: Constipation Nicotine (Nicotine 21 Mg Patch.Td24) 21 mg TRANSDERMA DAILY PRN PRN Reason: smoking cessation Nicotine Polacrilex (Nicotine Polacrilex 2 Mg Gum) 4 mg BUCCAL Q2H PRN PRN Reason: nicotine cravings Thiamine HCl (Thiamine Hcl 100 Mg Tablet) 100 mg PO DAILY [facility] Last Admin: 01/15/23 08:45 Dose: 100 mg Trazodone HCl (Trazodone Hcl 50 Mg Tablet) 50 mg PO BEDTIME MRX1 PRN PRN Reason: Insomnia Last Admin: 12/30/22 21:03 Dose: 50 mg Allergies Allergies Allergy/AdvReac Type Severity Reaction Status Date / Time morphine [MORPHINE] AdvReac Unknown NAUSEA Verified 12/10/22 19:56 Assessment & Plan Assessment & Plan (1) Opioid use disorder: Status: Acute Code(s): F11.90 - Opioid use, unspecified, uncomplicated (2) Cocaine use disorder: Status: Acute Code(s): F14.10 - Cocaine abuse, uncomplicated (3) Schizoaffective disorder, bipolar type: Status: Acute Code(s): F25.0 - Schizoaffective disorder, bipolar type Plan 12/24: attempt to give anti-psychotics. comfort meds for opioid and cocaine withdrawal. 12/25: refusing medications. period of agitation last night slamming doors and yelling (presumably @). continue current mgmt. 12/26: refusing meds. binging and purging. floridly psychotic. 12/27: had meds last night for sleep, per his request. schedule all haldol tonight with ativan and cogentin. a bit more interactive today, remains delayed and distracted. no binging/purgin behaviors or agitated behaviors described by RN report today. 12/28: refused meds last night. Today asks for meds for sx mgt- aggressive today- threw two coffee cups. Begin Depakote 250 mg bid. 12/29: got multiple meds last NOC and overnight per his request. slept 2 hours. refusing meds this morning. commitment paperwork completed. 3-day notice expires tomorrow. c/o opioid craving, asked for methadone. methadone 30 mg daily started today. 12/30: filed for commitment today. haldol and ativan per his request last night. appears in disbelief that he will not be discharged today. 12/31: demanding to leave, getting agitated, banging on nursing station, slamming doors in his room. given IMs x 2, haldol 10 ativan 2 benadryl 50 for first and thorazine 100 for second. 01/01: Remains unpredictable and irritable. Refusing scheduled medications. Section 7/ filed. 01/02: Continue current management. 01/03: refusing meds. irritable, labile. periods of agitation. continue current mgmt, awaiting hearing for . 01/04: refusing meds. irritable, labile. periods of agitation. continue current mgmt, though pt is refusing meds. 01/05: thought-blocked. denies mental illness or need for medications. offer medications. hearing tomorrow. 01/06: committed and ordered medications at hearing. 06/12/20 [facility] [place] DC summary reviewd, pt was discharged on VPA, zyprexa, haldol. 03/14/20 DC summary reviewed, pt discharged on zyprexa, haldol. pt unable to comprehend result, agitated not to be leaving today. 01/07: copy of court order on unit, will order meds accordingly today. no change in presentation. 01/08: Continue current regimen and plans 01/09: Continue current plans and regimen. Discontinue contingent IM Ativan if Depakote refused 01/10: Continue current regimen and plans. 01/11: DC VPA, start tegretol per pt preference. ativan 2 mg IM for refusal of tegretol. continue haldol PO/IM orders. improved from last week. less agitated, a bit more organized and engaging. 01/12: appears more disorganized again today, trouble engaging. refused PO meds last night but did take tegretol PO this morning. 01/13: continues disorganized, difficulty expressing himself. refusing PO meds since yesterday morning. slept 10 hours last night, however 01/14: intermittently taking meds PO versus IM. improved behavior from prior to med order, but remains floridly psychotic. continue current mgmt. 01/15/2023: No changes to current plan Reason for continued inpatient stay Substantial Risk for: inability to function and rapid decompensation Time Spent With Patient Time: Total time managing care of this patient today ____ minutes.
[2023-01-15] MEDS: Nicotine 21 MG PATCH.TD24 TRANSDERMA (16:06)
--- NOTE | 2023-01-15 16:56 | PC.NURSE ---
Miguel Ángel appeared irritable this morning, he was pacing, self dialoguing, upon approach intense eye contact. When being asked questions regarding how he's feeling roommate was mimicking his responses, Miguel Ángel looked at automatic typewriter inspector and stated Don't ask me how I'm feeling, VS obtained, scheduled medications offered and accepted. Miguel Ángel was pacing with clenched fist, stating You want to fight me, come on started running down the hallway, took his shirt off, when redirected he put it on and stated I'm fine. During lunch [facility] redirected him, he threw his tray and postured at [facility]. Staff intervened redirected him, staff support offered refused, medication offered refused. Miguel Ángel started helping staff tack picker the food from the floor, he then yelled What the yoank, told automatic typewriter inspector I want to go home.
[2023-01-15 20:00] VITALS: BP 120/69; PULSE 99; RESP 18; TEMP 36.6; O2SAT 98
[2023-01-15] MEDS: Benztropine Mesylate 1 MG TABLET PO (20:34)
[2023-01-16] MEDS: Folic Acid 1 MG TABLET PO (08:14)
[2023-01-16] MEDS: Thiamine HCL 100 MG TABLET PO (08:14)
[2023-01-16] MEDS: carBAMazepine ER 200 MG TAB.ER.12H PO (08:14)
[2023-01-16 08:19] VITALS: BP 109/68; PULSE 64; RESP 18; TEMP 36.3; O2SAT 97
[2023-01-16] MEDS: Ibuprofen 800 MG TABLET PO (14:59)
--- NOTE | 2023-01-16 16:02 | HO.PSYCHPN ---
Subjective Subjective Date of Service: 01/16/23 Reason For Visit: Psychosis Interim History: met with patient. Discussed with Nursing. Declined oral meds last PM, so received IM meds as per court order. Pleasant with technical document writer today. AH less frequent and intense and non command. Denied medication side effects. Sleep is okay. Medication Compliance: Intermittent Side effects from medications: No Attending Groups: No Review of Systems Acute medical concerns: No Review of Systems Review of Systems unremarkable Mental Status Exam Mental Status Exam Narrative: initially pleasant and engaged. Casually dressed. Fair self-care. Headphones. No evidence depression. Paranoid and AH (less intense). No evidence of SI or HI. Diagnostics Vital Signs (24Hr): Vital Signs - 24 hr 01/15/23 20:00 01/16/23 08:19 Temperature 97.9 F 97.4 F Pulse Rate 99 64 Respiratory Rate 18 18 Blood Pressure 120/69 109/68 Pulse Oximetry 98 97 Oxygen Delivery Method Room Air Room Air BMI result Body Mass Index 25.5 Labs 12/23/22 09:53 12/23/22 09:53 Medications Medications Current Medications Acetaminophen (Acetaminophen 325 Mg Tablet) 650 mg PO Q6H PRN PRN Reason: Headache/Pain Mild Scale (1-3) Last Admin: 01/15/23 11:12 Dose: 650 mg Al Hydroxide/Mg Hydroxide (Magnesium Hydrox/Alum Hydrox 30 Ml Oral.Susp) 30 ml PO Q6H PRN PRN Reason: Heartburn/Nausea Benztropine Mesylate (Benztropine Mesylate 1 Mg Tablet) 1 mg PO BEDTIME [facility] Last Admin: 01/15/23 20:34 Dose: 1 mg Carbamazepine (Carbamazepine Er 100 Mg Tab.Er.12h) 200 mg PO BID [facility] Chlorpromazine HCl (Chlorpromazine Hcl 25 Mg Tablet) 50 mg PO Q4H PRN PRN Reason: agitation Last Admin: 01/15/23 06:02 Dose: 50 mg Clonidine HCl (Clonidine Hcl 0.1 Mg Tablet) 0.1 mg PO Q2H PRN; Protocol PRN Reason: agitation/signs of opioid withdrawal Last Admin: 01/15/23 06:02 Dose: 0.1 mg Dicyclomine HCl (Dicyclomine Hcl 10 Mg Capsule) 10 mg PO QIDACHS PRN PRN Reason: cramps Last Admin: 01/06/23 09:51 Dose: 10 mg Folic Acid (Folic Acid 1 Mg Tablet) 1 mg PO DAILY [facility] Last Admin: 01/16/23 08:14 Dose: 1 mg Haloperidol (Haloperidol 5 Mg Tablet) 10 mg PO BEDTIME [facility] Last Admin: 01/15/23 21:07 Dose: Not Given Haloperidol Lactate (Haloperidol Lactate 5 Mg/Ml Vial) 10 mg IM DAILY PRN PRN Reason: if PO refused Last Admin: 01/14/23 19:19 Dose: 10 mg Hydroxyzine HCl (Hydroxyzine Hcl 25 Mg Tablet) 25 mg PO Q6H PRN PRN Reason: Anxiety Last Admin: 12/28/22 21:39 Dose: 25 mg Ibuprofen (Ibuprofen 800 Mg Tablet) 800 mg PO TID PRN PRN Reason: back pain Last Admin: 01/16/23 14:59 Dose: 800 mg Magnesium Hydroxide (Milk Of Magnesia 30 Ml Oral.Susp) 30 ml PO DAILY PRN PRN Reason: Constipation Nicotine (Nicotine 21 Mg Patch.Td24) 21 mg TRANSDERMA DAILY PRN PRN Reason: smoking cessation Last Admin: 01/15/23 16:06 Dose: 21 mg Nicotine Polacrilex (Nicotine Polacrilex 2 Mg Gum) 4 mg BUCCAL Q2H PRN PRN Reason: nicotine cravings Thiamine HCl (Thiamine Hcl 100 Mg Tablet) 100 mg PO DAILY [facility] Last Admin: 01/16/23 08:14 Dose: 100 mg Trazodone HCl (Trazodone Hcl 50 Mg Tablet) 50 mg PO BEDTIME MRX1 PRN PRN Reason: Insomnia Last Admin: 12/30/22 21:03 Dose: 50 mg Allergies Allergies Allergy/AdvReac Type Severity Reaction Status Date / Time morphine [MORPHINE] AdvReac Unknown NAUSEA Verified 12/10/22 19:56 Assessment & Plan Assessment & Plan (1) Opioid use disorder: Status: Acute Code(s): F11.90 - Opioid use, unspecified, uncomplicated (2) Cocaine use disorder: Status: Acute Code(s): F14.10 - Cocaine abuse, uncomplicated (3) Schizoaffective disorder, bipolar type: Status: Acute Code(s): F25.0 - Schizoaffective disorder, bipolar type Plan 12/24: attempt to give anti-psychotics. comfort meds for opioid and cocaine withdrawal. 12/25: refusing medications. period of agitation last night slamming doors and yelling (presumably @AH). continue current mgmt. 12/26: refusing meds. binging and purging. floridly psychotic. 12/27: had meds last night for sleep, per his request. schedule all haldol tonight with ativan and cogentin. a bit more interactive today, remains delayed and distracted. no binging/purgin behaviors or agitated behaviors described by RN report today. 12/28: refused meds last night. Today asks for meds for sx mgt- aggressive today-threw two coffee cups. Begin Depakote 250 mg bid. 12/29: got multiple meds last NOC and overnight per his request. slept 2 hours. refusing meds this morning. commitment paperwork completed. 3-day notice expires tomorrow. c/o opioid craving, asked for methadone. methadone 30 mg daily started today. 12/30: filed for commitment today. haldol and ativan per his request last night. appears in disbelief that he will not be discharged today. 12/31: demanding to leave, getting agitated, banging on nursing station, slamming doors in his room. given IMs x 2, haldol 10 ativan 2 benadryl 50 for first and thorazine 100 for second. 01/01: Remains unpredictable and irritable. Refusing scheduled medications. Section 7/8 filed. 01/02: Continue current management. 01/03: refusing meds. irritable, labile. periods of agitation. continue current mgmt, awaiting hearing for . 01/04: refusing meds. irritable, labile. periods of agitation. continue current mgmt, though pt is refusing meds. 01/05: thought-blocked. denies mental illness or need for medications. offer medications. hearing tomorrow. 01/06: committed and ordered medications at hearing. 06/12/20 [facility] [place] summary reviewd, pt was discharged on VPA, zyprexa, haldol. 03/14/20 DC summary reviewed, pt discharged on zyprexa, haldol. pt unable to comprehend result, agitated not to be leaving today. 01/07: copy of court order on unit, will order meds accordingly today. no change in presentation. 01/08: Continue current regimen and plans 01/09: Continue current plans and regimen. Discontinue contingent IM Ativan if Depakote refused 01/10: Continue current regimen and plans. 01/11: DC VPA, start tegretol per pt preference. ativan 2 mg IM for refusal of tegretol. continue haldol PO/IM orders. improved from last week. less agitated, a bit more organized and engaging. 01/12: appears more disorganized again today, trouble engaging. refused PO meds last night but did take tegretol PO this morning. 01/13: continues disorganized, difficulty expressing himself. refusing PO meds since yesterday morning. slept 10 hours last night, however 01/14: intermittently taking meds PO versus IM. improved behavior from prior to med order, but remains floridly psychotic. continue current mgmt. 01/16/2023: No changes to current plan Reason for continued inpatient stay Substantial Risk for: rapid decompensation Time Spent With Patient Time: Total time managing care of this patient today ____ minutes.
[2023-01-16] MEDS: Haloperidol Lactate 5 MG/ML VIAL 10 MG IM (21:31)
[2023-01-16 21:39] VITALS: BP 138/76; PULSE 77; TEMP 36.5; O2SAT 99
[2023-01-17 06:00] VITALS: BP 111/63; PULSE 70; RESP 18; TEMP 36.4; O2SAT 99
[2023-01-17] MEDS: Thiamine HCL 100 MG TABLET PO (08:50)
[2023-01-17] MEDS: Folic Acid 1 MG TABLET PO (08:50)
[2023-01-17] MEDS: carBAMazepine ER 100 MG TAB.ER.12H 200 MG PO ×2 (08:50→20:51)
--- NOTE | 2023-01-17 14:03 | HO.PSYCHPN ---
Subjective Subjective Date of Service: 01/17/23 Reason For Visit: Psychosis Interim History: calm, cooperative... until he walks away from you as you are mid-sentence. unclear what information he is able to retain and process. MD attempts to laud him for taking most doses of tegretol in the past several days. asks about why he doesn't like to take PO haldol. pt leaves interview prior to any progress being made. per staff, irritable re coffee restriction. eating well. denies anx/dep. +RIS. refusing PO haldol, getting IMs. Mental Status Exam Mental Status Exam Narrative: adequately dressed and groomed. pacing the halls. cooperative the apparent extent of his abilities. speech decr in amount, incr latency. thoughts seemingly somewhat disorganized. affect constricted, hyper-intense, non-labile. no SI/HI/AVH expressed, but behaviors c/w at the least AH. Diagnostics Vital Signs (24Hr): Vital Signs - 24 hr 01/16/23 21:39 01/17/23 06:00 Temperature 97.7 F 97.5 F Pulse Rate 77 70 Respiratory Rate 18 Blood Pressure 138/76 111/63 Pulse Oximetry 99 99 Oxygen Delivery Method Room Air Room Air BMI result Body Mass Index 25.5 Labs 12/23/22 09:53 12/23/22 09:53 Medications Medications Current Medications Acetaminophen (Acetaminophen 325 Mg Tablet) 650 mg PO Q6H PRN PRN Reason: Headache/Pain Mild Scale (1-3) Last Admin: 01/15/23 11:12 Dose: 650 mg Al Hydroxide/Mg Hydroxide (Magnesium Hydrox/Alum Hydrox 30 Ml Oral.Susp) 30 ml PO Q6H PRN PRN Reason: Heartburn/Nausea Benztropine Mesylate (Benztropine Mesylate 1 Mg Tablet) 1 mg PO BEDTIME [facility] Last Admin: 01/16/23 22:16 Dose: Not Given Carbamazepine (Carbamazepine Er 100 Mg Tab.Er.12h) 200 mg PO BID [facility] Last Admin: 01/17/23 08:50 Dose: 200 mg Chlorpromazine HCl (Chlorpromazine Hcl 25 Mg Tablet) 50 mg PO Q4H PRN PRN Reason: agitation Last Admin: 01/15/23 06:02 Dose: 50 mg Clonidine HCl (Clonidine Hcl 0.1 Mg Tablet) 0.1 mg PO Q2H PRN; Protocol PRN Reason: agitation/signs of opioid withdrawal Last Admin: 01/15/23 06:02 Dose: 0.1 mg Dicyclomine HCl (Dicyclomine Hcl 10 Mg Capsule) 10 mg PO QIDACHS PRN PRN Reason: cramps Last Admin: 01/06/23 09:51 Dose: 10 mg Folic Acid (Folic Acid 1 Mg Tablet) 1 mg PO DAILY [facility] Last Admin: 01/17/23 08:50 Dose: 1 mg Haloperidol (Haloperidol 5 Mg Tablet) 10 mg PO BEDTIME [facility] Last Admin: 01/16/23 22:17 Dose: Not Given Haloperidol Lactate (Haloperidol Lactate 5 Mg/Ml Vial) 10 mg IM DAILY PRN PRN Reason: if PO refused Last Admin: 01/16/23 21:31 Dose: 10 mg Hydroxyzine HCl (Hydroxyzine Hcl 25 Mg Tablet) 25 mg PO Q6H PRN PRN Reason: Anxiety Last Admin: 12/28/22 21:39 Dose: 25 mg Ibuprofen (Ibuprofen 800 Mg Tablet) 800 mg PO TID PRN PRN Reason: back pain Last Admin: 01/16/23 14:59 Dose: 800 mg Lorazepam (Lorazepam 2 Mg/Ml Vial) 2 mg IM BID PRN PRN Reason: refusal of tegretol Magnesium Hydroxide (Milk Of Magnesia 30 Ml Oral.Susp) 30 ml PO DAILY PRN PRN Reason: Constipation Nicotine (Nicotine 21 Mg Patch.Td24) 21 mg TRANSDERMA DAILY PRN PRN Reason: smoking cessation Last Admin: 01/15/23 16:06 Dose: 21 mg Nicotine Polacrilex (Nicotine Polacrilex 2 Mg Gum) 4 mg BUCCAL Q2H PRN PRN Reason: nicotine cravings Thiamine HCl (Thiamine Hcl 100 Mg Tablet) 100 mg PO DAILY [facility] Last Admin: 01/17/23 08:50 Dose: 100 mg Trazodone HCl (Trazodone Hcl 50 Mg Tablet) 50 mg PO BEDTIME MRX1 PRN PRN Reason: Insomnia Last Admin: 12/30/22 21:03 Dose: 50 mg Allergies Allergies Allergy/AdvReac Type Severity Reaction Status Date / Time morphine [MORPHINE] AdvReac Unknown NAUSEA Verified 12/10/22 19:56 Assessment & Plan Assessment & Plan (1) Opioid use disorder: Status: Acute Code(s): F11.90 - Opioid use, unspecified, uncomplicated (2) Cocaine use disorder: Status: Acute Code(s): F14.10 - Cocaine abuse, uncomplicated (3) Schizoaffective disorder, bipolar type: Status: Acute Code(s): F25.0 - Schizoaffective disorder, bipolar type Plan 12/24: attempt to give anti-psychotics. comfort meds for opioid and cocaine withdrawal. 12/25: refusing medications. period of agitation last night slamming doors and yelling (presumably @AH). continue current mgmt. 12/26: refusing meds. binging and purging. floridly psychotic. 12/27: had meds last night for sleep, per his request. schedule all haldol tonight with ativan and cogentin. a bit more interactive today, remains delayed and distracted. no binging/purgin behaviors or agitated behaviors described by RN report today. 12/28: refused meds last night. Today asks for meds for sx mgt- aggressive today-threw two coffee cups. Begin Depakote 250 mg bid. 12/29: got multiple meds last NOC and overnight per his request. slept 2 hours. refusing meds this morning. commitment paperwork completed. 3-day notice expires tomorrow. c/o opioid craving, asked for methadone. methadone 30 mg daily started today. 12/30: filed for commitment today. haldol and ativan per his request last night. appears in disbelief that he will not be discharged today. 12/31: demanding to leave, getting agitated, banging on nursing station, slamming doors in his room. given IMs x 2, haldol 10 ativan 2 benadryl 50 for first and thorazine 100 for second. 01/01: Remains unpredictable and irritable. Refusing scheduled medications. Section 7/ filed. 01/02: Continue current management. 01/03: refusing meds. irritable, labile. periods of agitation. continue current mgmt, awaiting hearing for . 01/04: refusing meds. irritable, labile. periods of agitation. continue current mgmt, though pt is refusing meds. 01/05: thought-blocked. denies mental illness or need for medications. offer medications. hearing tomorrow. 01/06: committed and ordered medications at hearing. 06/12/20 [facility] [place] summary reviewd, pt was discharged on VPA, zyprexa, haldol. 03/14/20 DC summary reviewed, pt discharged on zyprexa, haldol. pt unable to comprehend result, agitated not to be leaving today. 01/07: copy of court order on unit, will order meds accordingly today. no change in presentation. 01/08: Continue current regimen and plans 01/09: Continue current plans and regimen. Discontinue contingent IM Ativan if Depakote refused 01/10: Continue current regimen and plans. 01/11: DC VPA, start tegretol per pt preference. ativan 2 mg IM for refusal of tegretol. continue haldol PO/IM orders. improved from last week. less agitated, a bit more organized and engaging. 01/12: appears more disorganized again today, trouble engaging. refused PO meds last night but did take tegretol PO this morning. 01/13: continues disorganized, difficulty expressing himself. refusing PO meds since yesterday morning. slept 10 hours last night, however 01/14: intermittently taking meds PO versus IM. improved behavior from prior to med order, but remains floridly psychotic. continue current mgmt. 01/16/2023: No changes to current plan 01/17: more compliant with tegretol in recent days, still getting haldol IM. no change in presentation. continue current mgmt. Reason for continued inpatient stay Substantial Risk for: harm to self, inability to function and rapid decompensation Time Spent With Patient Time: Total time managing care of this patient today ____ minutes.
[2023-01-17] MEDS: chlorproMAZINE HCl 25 MG TABLET 50 MG PO (14:49)
[2023-01-17 18:00] VITALS: BP 121/62; PULSE 91; RESP 18; TEMP 36.4; O2SAT 98
[2023-01-17] MEDS: Benztropine Mesylate 1 MG TABLET PO (20:51)
[2023-01-17] MEDS: Haloperidol Lactate 5 MG/ML VIAL 10 MG IM (21:03)
[2023-01-18 08:30] VITALS: BP 117/74; PULSE 82; RESP 16; TEMP 36.5; O2SAT 97
[2023-01-18] MEDS: carBAMazepine ER 100 MG TAB.ER.12H 200 MG PO (08:35)
[2023-01-18] MEDS: Thiamine HCL 100 MG TABLET PO (08:35)
[2023-01-18] MEDS: Folic Acid 1 MG TABLET PO (08:35)
[2023-01-18] MEDS: chlorproMAZINE HCl 25 MG TABLET 50 MG PO (13:30)
[2023-01-18] MEDS: hydrOXYzine HCL 25 MG TABLET PO (13:30)
--- NOTE | 2023-01-18 13:32 | P.PNPSI_ITS ---
Subjective Subjective Date of Service: 01/18/23 Reason For Visit: Psychosis Interim History: asking for status update from . informs pt of plan to check his tegretol level after two weeks, which upsets pt. he states he has never taken medications for two weeks, only a week or so, and that's not real. storms off, saying he needs a casting machine set up operator. he is informed he already has one assigned to him and may call his casting machine set up operator at any time. per staff, pacing, RIS. not attending groups. safe. eating. arguing with himself. slept all through the night. taking tegretol PO. Mental Status Exam Mental Status Exam Narrative: adequately dressed and groomed. pacing the halls. poorly cooperative. speech nml in amount, nml latency. somewhat disorganized. affect constricted, hyper- intense, mod-labile. no SI/HI/AVH expressed, but behaviors c/w at the least AH. Diagnostics Vital Signs (24Hr): Vital Signs - 24 hr 01/17/23 18:00 01/18/23 08:30 Temperature 97.6 F 97.7 F Pulse Rate 91 82 Respiratory Rate 18 16 Blood Pressure 121/62 117/74 Pulse Oximetry 98 97 Oxygen Delivery Method Room Air Room Air BMI result Body Mass Index 25.5 Labs 12/23/22 09:53 12/23/22 09:53 Medications Medications Current Medications Acetaminophen (Acetaminophen 325 Mg Tablet) 650 mg PO Q6H PRN PRN Reason: Headache/Pain Mild Scale (1-3) Last Admin: 01/15/23 11:12 Dose: 650 mg Al Hydroxide/Mg Hydroxide (Magnesium Hydrox/Alum Hydrox 30 Ml Oral.Susp) 30 ml PO Q6H PRN PRN Reason: Heartburn/Nausea Benztropine Mesylate (Benztropine Mesylate 1 Mg Tablet) 1 mg PO BEDTIME [facility] Last Admin: 01/17/23 20:51 Dose: 1 mg Carbamazepine (Carbamazepine Er 100 Mg Tab.Er.12h) 200 mg PO BID [facility] Last Admin: 01/18/23 08:35 Dose: 200 mg Chlorpromazine HCl (Chlorpromazine Hcl 25 Mg Tablet) 50 mg PO Q4H PRN PRN Reason: agitation Last Admin: 01/17/23 14:49 Dose: 50 mg Clonidine HCl (Clonidine Hcl 0.1 Mg Tablet) 0.1 mg PO Q2H PRN; Protocol PRN Reason: agitation/signs of opioid withdrawal Last Admin: 01/15/23 06:02 Dose: 0.1 mg Dicyclomine HCl (Dicyclomine Hcl 10 Mg Capsule) 10 mg PO QIDACHS PRN PRN Reason: cramps Last Admin: 01/06/23 09:51 Dose: 10 mg Folic Acid (Folic Acid 1 Mg Tablet) 1 mg PO DAILY [facility] Last Admin: 01/18/23 08:35 Dose: 1 mg Haloperidol (Haloperidol 5 Mg Tablet) 10 mg PO BEDTIME [facility] Last Admin: 01/17/23 21:39 Dose: Not Given Haloperidol Lactate (Haloperidol Lactate 5 Mg/Ml Vial) 10 mg IM DAILY PRN PRN Reason: if PO refused Last Admin: 01/17/23 21:03 Dose: 10 mg Hydroxyzine HCl (Hydroxyzine Hcl 25 Mg Tablet) 25 mg PO Q6H PRN PRN Reason: Anxiety Last Admin: 12/28/22 21:39 Dose: 25 mg Ibuprofen (Ibuprofen 800 Mg Tablet) 800 mg PO TID PRN PRN Reason: back pain Last Admin: 01/16/23 14:59 Dose: 800 mg Lorazepam (Lorazepam 2 Mg/Ml Vial) 2 mg IM BID PRN PRN Reason: refusal of tegretol Magnesium Hydroxide (Milk Of Magnesia 30 Ml Oral.Susp) 30 ml PO DAILY PRN PRN Reason: Constipation Nicotine (Nicotine 21 Mg Patch.Td24) 21 mg TRANSDERMA DAILY PRN PRN Reason: smoking cessation Last Admin: 01/15/23 16:06 Dose: 21 mg Nicotine Polacrilex (Nicotine Polacrilex 2 Mg Gum) 4 mg BUCCAL Q2H PRN PRN Reason: nicotine cravings Thiamine HCl (Thiamine Hcl 100 Mg Tablet) 100 mg PO DAILY [facility] Last Admin: 01/18/23 08:35 Dose: 100 mg Trazodone HCl (Trazodone Hcl 50 Mg Tablet) 50 mg PO BEDTIME MRX1 PRN PRN Reason: Insomnia Last Admin: 12/30/22 21:03 Dose: 50 mg Allergies Allergies Allergy/AdvReac Type Severity Reaction Status Date / Time morphine [MORPHINE] AdvReac Unknown NAUSEA Verified 12/10/22 19:56 Assessment & Plan Assessment & Plan (1) Opioid use disorder: Status: Acute Code(s): F11.90 - Opioid use, unspecified, uncomplicated (2) Cocaine use disorder: Status: Acute Code(s): F14.10 - Cocaine abuse, uncomplicated (3) Schizoaffective disorder, bipolar type: Status: Acute Code(s): F25.0 - Schizoaffective disorder, bipolar type Plan 12/24: attempt to give anti-psychotics. comfort meds for opioid and cocaine withdrawal. 12/25: refusing medications. period of agitation last night slamming doors and yelling (presumably @). continue current mgmt. 12/26: refusing meds. binging and purging. floridly psychotic. 12/27: had meds last night for sleep, per his request. schedule all haldol tonight with ativan and cogentin. a bit more interactive today, remains delayed and distracted. no binging/purgin behaviors or agitated behaviors described by RN report today. 12/28: refused meds last night. Today asks for meds for sx mgt- aggressive today- threw two coffee cups. Begin Depakote 250 mg bid. 12/29: got multiple meds last NOC and overnight per his request. slept 2 hours. refusing meds this morning. commitment paperwork completed. 3-day notice expires tomorrow. c/o opioid craving, asked for methadone. methadone 30 mg daily started today. 12/30: filed for commitment today. haldol and ativan per his request last night. appears in disbelief that he will not be discharged today. 12/31: demanding to leave, getting agitated, banging on nursing station, slamming doors in his room. given IMs x 2, haldol 10 ativan 2 benadryl 50 for first and thorazine 100 for second. 01/01: Remains unpredictable and irritable. Refusing scheduled medications. Section 7/ filed. 01/02: Continue current management. 01/03: refusing meds. irritable, labile. periods of agitation. continue current mgmt, awaiting hearing for . 01/04: refusing meds. irritable, labile. periods of agitation. continue current mgmt, though pt is refusing meds. 01/05: thought-blocked. denies mental illness or need for medications. offer medications. hearing tomorrow. 01/06: committed and ordered medications at hearing. 06/12/20 [facility] [place] DC summary reviewd, pt was discharged on VPA, zyprexa, haldol. 03/14/20 DC summary reviewed, pt discharged on zyprexa, haldol. pt unable to comprehend result, agitated not to be leaving today. 01/07: copy of court order on unit, will order meds accordingly today. no change in presentation. 01/08: Continue current regimen and plans 01/09: Continue current plans and regimen. Discontinue contingent IM Ativan if Depakote refused 01/10: Continue current regimen and plans. 01/11: DC VPA, start tegretol per pt preference. ativan 2 mg IM for refusal of tegretol. continue haldol PO/IM orders. improved from last week. less agitated, a bit more organized and engaging. 01/12: appears more disorganized again today, trouble engaging. refused PO meds last night but did take tegretol PO this morning. 01/13: continues disorganized, difficulty expressing himself. refusing PO meds since yesterday morning. slept 10 hours last night, however 01/14: intermittently taking meds PO versus IM. improved behavior from prior to med order, but remains floridly psychotic. continue current mgmt. 01/16/2023: No changes to current plan 01/17: more compliant with tegretol in recent days, still getting haldol IM. no change in presentation. continue current mgmt. 01/18: remains psychotic, labile. increase tegretol to 300 mg BID. Reason for continued inpatient stay Substantial Risk for: harm to self, inability to function and rapid decompensation Time Spent With Patient Time: Total time managing care of this patient today __25__ minutes.
[2023-01-18] MEDS: Benztropine Mesylate 1 MG TABLET PO (19:30)
[2023-01-18] MEDS: carBAMazepine ER 100 MG TAB.ER.12H 300 MG PO (19:30)
[2023-01-18] MEDS: Haloperidol Lactate 5 MG/ML VIAL 10 MG IM (19:36)
[2023-01-18 20:09] VITALS: BP 132/72; PULSE 88; RESP 16; TEMP 36.8; O2SAT 98
[2023-01-19 06:00] VITALS: BP 118/66; PULSE 91; RESP 16; TEMP 36.9; O2SAT 97
[2023-01-19] MEDS: carBAMazepine ER 100 MG TAB.ER.12H 300 MG PO ×2 (09:34→20:37)
[2023-01-19] MEDS: Folic Acid 1 MG TABLET PO (09:35)
[2023-01-19] MEDS: Thiamine HCL 100 MG TABLET PO (09:35)
[2023-01-19] MEDS: Acetaminophen 325 MG TABLET 650 MG PO ×2 (11:12→19:35)
--- NOTE | 2023-01-19 12:16 | HO.PSYCHPN ---
Subjective Subjective Date of Service: 01/19/23 Reason For Visit: Psychosis Interim History: irritable, labile. raises voice at MD as MD attempts to discuss medications with him, telling MD he and staff are being uncomfortable after MD notes frequent IMs must be uncomfortable as MD argues for an anti-psychotic pt may be willing to take by mouth. pt appears to want to close his bedroom door on MD as MD stands in doorway, so MD exits. later in the green pt noted to be glaring at MD whenever passing and at one point while so glaring at close range said, asshole to MD. per staff, RIS. anxious. agitation yesterday - hit RN station plexiglass at one point. tore up cards. pacing. not attending groups. did not appear to have slept last night. Mental Status Exam Mental Status Exam Narrative: adequately dressed and groomed. pacing the halls. poorly cooperative. speech decr in amount, decr latency. apparently disorganized. affect constricted, hyper-intense, mod-labile. no SI/HI/AVH expressed, but behaviors c/w at the least AH. Diagnostics Vital Signs (24Hr): Vital Signs - 24 hr 01/18/23 20:09 01/19/23 06:00 Temperature 98.2 F 98.4 F Pulse Rate 88 91 Respiratory Rate 16 16 Blood Pressure 132/72 118/66 Pulse Oximetry 98 97 Oxygen Delivery Method Room Air Room Air BMI result Body Mass Index 25.5 Labs 12/23/22 09:53 12/23/22 09:53 Medications Medications Current Medications Acetaminophen (Acetaminophen 325 Mg Tablet) 650 mg PO Q6H PRN PRN Reason: Headache/Pain Mild Scale (1-3) Last Admin: 01/19/23 11:12 Dose: 650 mg Al Hydroxide/Mg Hydroxide (Magnesium Hydrox/Alum Hydrox 30 Ml Oral.Susp) 30 ml PO Q6H PRN PRN Reason: Heartburn/Nausea Benztropine Mesylate (Benztropine Mesylate 1 Mg Tablet) 1 mg PO BEDTIME [facility] Last Admin: 01/18/23 19:30 Dose: 1 mg Carbamazepine (Carbamazepine Er 100 Mg Tab.Er.12h) 300 mg PO BID [facility] Last Admin: 01/19/23 09:34 Dose: 300 mg Chlorpromazine HCl (Chlorpromazine Hcl 25 Mg Tablet) 50 mg PO Q4H PRN PRN Reason: agitation Last Admin: 01/18/23 13:30 Dose: 50 mg Clonidine HCl (Clonidine Hcl 0.1 Mg Tablet) 0.1 mg PO Q2H PRN; Protocol PRN Reason: agitation/signs of opioid withdrawal Last Admin: 01/15/23 06:02 Dose: 0.1 mg Dicyclomine HCl (Dicyclomine Hcl 10 Mg Capsule) 10 mg PO QIDACHS PRN PRN Reason: cramps Last Admin: 01/06/23 09:51 Dose: 10 mg Folic Acid (Folic Acid 1 Mg Tablet) 1 mg PO DAILY [facility] Last Admin: 01/19/23 09:35 Dose: 1 mg Haloperidol (Haloperidol 5 Mg Tablet) 10 mg PO BEDTIME [facility] Last Admin: 01/18/23 19:32 Dose: Not Given Haloperidol Lactate (Haloperidol Lactate 5 Mg/Ml Vial) 10 mg IM DAILY PRN PRN Reason: if PO refused Last Admin: 01/18/23 19:36 Dose: 10 mg Hydroxyzine HCl (Hydroxyzine Hcl 25 Mg Tablet) 25 mg PO Q6H PRN PRN Reason: Anxiety Last Admin: 01/18/23 13:30 Dose: 25 mg Ibuprofen (Ibuprofen 800 Mg Tablet) 800 mg PO TID PRN PRN Reason: back pain Last Admin: 01/16/23 14:59 Dose: 800 mg Lorazepam (Lorazepam 2 Mg/Ml Vial) 2 mg IM BID PRN PRN Reason: refusal of tegretol Magnesium Hydroxide (Milk Of Magnesia 30 Ml Oral.Susp) 30 ml PO DAILY PRN PRN Reason: Constipation Multi-Ingred Cream/Lotion/Oil/Oint (Mineral Oil/Petrolatum,White 106 Gm Tube) 1 appl TOPICAL BID [facility]; Protocol Last Admin: 01/19/23 11:49 Dose: Not Given Nicotine (Nicotine 21 Mg Patch.Td24) 21 mg TRANSDERMA DAILY PRN PRN Reason: smoking cessation Last Admin: 01/15/23 16:06 Dose: 21 mg Nicotine Polacrilex (Nicotine Polacrilex 2 Mg Gum) 4 mg BUCCAL Q2H PRN PRN Reason: nicotine cravings Thiamine HCl (Thiamine Hcl 100 Mg Tablet) 100 mg PO DAILY [facility] Last Admin: 01/19/23 09:35 Dose: 100 mg Trazodone HCl (Trazodone Hcl 50 Mg Tablet) 50 mg PO BEDTIME MRX1 PRN PRN Reason: Insomnia Last Admin: 12/30/22 21:03 Dose: 50 mg Allergies Allergies Allergy/AdvReac Type Severity Reaction Status Date / Time morphine [MORPHINE] AdvReac Unknown NAUSEA Verified 12/10/22 19:56 Assessment & Plan Assessment & Plan (1) Opioid use disorder: Status: Acute Code(s): F11.90 - Opioid use, unspecified, uncomplicated (2) Cocaine use disorder: Status: Acute Code(s): F14.10 - Cocaine abuse, uncomplicated (3) Schizoaffective disorder, bipolar type: Status: Acute Code(s): F25.0 - Schizoaffective disorder, bipolar type Plan 12/24: attempt to give anti-psychotics. comfort meds for opioid and cocaine withdrawal. 12/25: refusing medications. period of agitation last night slamming doors and yelling (presumably @[facility]). continue current mgmt. 12/26: refusing meds. binging and purging. floridly psychotic. 12/27: had meds last night for sleep, per his request. schedule all haldol tonight with ativan and cogentin. a bit more interactive today, remains delayed and distracted. no binging/purgin behaviors or agitated behaviors described by RN report today. 12/28: refused meds last night. Today asks for meds for sx mgt- aggressive today-threw two coffee cups. Begin Depakote 250 mg bid. 12/29: got multiple meds last NOC and overnight per his request. slept 2 hours. refusing meds this morning. commitment paperwork completed. 3-day notice expires tomorrow. c/o opioid craving, asked for methadone. methadone 30 mg daily started today. 12/30: filed for commitment today. haldol and ativan per his request last night. appears in disbelief that he will not be discharged today. 12/31: demanding to leave, getting agitated, banging on nursing station, slamming doors in his room. given IMs x 2, haldol 10 ativan 2 benadryl 50 for first and thorazine 100 for second. 01/01: Remains unpredictable and irritable. Refusing scheduled medications. Section 7/ filed. 01/02: Continue current management. 01/03: refusing meds. irritable, labile. periods of agitation. continue current mgmt, awaiting hearing for . 01/04: refusing meds. irritable, labile. periods of agitation. continue current mgmt, though pt is refusing meds. 01/05: thought-blocked. denies mental illness or need for medications. offer medications. hearing tomorrow. 01/06: committed and ordered medications at hearing. 06/12/20 [facility] [place], pt was discharged on VPA, zyprexa, haldol. 03/14/20 DC summary reviewed, pt discharged on zyprexa, haldol. pt unable to comprehend result, agitated not to be leaving today. 01/07: copy of court order on unit, will order meds accordingly today. no change in presentation. 01/08: Continue current regimen and plans 01/09: Continue current plans and regimen. Discontinue contingent IM Ativan if Depakote refused 01/10: Continue current regimen and plans. 01/11: DC VPA, start tegretol per pt preference. ativan 2 mg IM for refusal of tegretol. continue haldol PO/IM orders. improved from last week. less agitated, a bit more organized and engaging. 01/12: appears more disorganized again today, trouble engaging. refused PO meds last night but did take tegretol PO this morning. 01/13: continues disorganized, difficulty expressing himself. refusing PO meds since yesterday morning. slept 10 hours last night, however 01/14: intermittently taking meds PO versus IM. improved behavior from prior to med order, but remains floridly psychotic. continue current mgmt. 01/16/2023: No changes to current plan 01/17: more compliant with tegretol in recent days, still getting haldol IM. no change in presentation. continue current mgmt. 01/18: remains psychotic, labile. increase tegretol to 300 mg BID. 01/19: continues more aggressive and labile today. increase haldol to 10 BID with back-up IM of 7.5 mg. Reason for continued inpatient stay Substantial Risk for: harm to self, harm to others and inability to function Time Spent With Patient Time: Total time managing care of this patient today _25___ minutes.
[2023-01-19] MEDS: Ibuprofen 800 MG TABLET PO (13:59)
[2023-01-19] MEDS: chlorproMAZINE HCl 25 MG TABLET 50 MG PO (15:45)
[2023-01-19 18:00] VITALS: RESP 18
[2023-01-19] MEDS: Benztropine Mesylate 1 MG TABLET PO (20:37)
[2023-01-19] MEDS: traZODone HCL 50 MG TABLET PO (20:38)
[2023-01-19] MEDS: Haloperidol Lactate 5 MG/ML VIAL 7.5 MG IM (20:43)
[2023-01-20 07:00] VITALS: BMI 26.7
[2023-01-20] MEDS: Acetaminophen 325 MG TABLET 650 MG PO ×3 (07:55→23:02)
[2023-01-20] MEDS: carBAMazepine ER 100 MG TAB.ER.12H 300 MG PO ×2 (08:54→19:52)
[2023-01-20] MEDS: Benztropine Mesylate 1 MG TABLET PO ×2 (08:54→19:53)
[2023-01-20] MEDS: Thiamine HCL 100 MG TABLET PO (08:54)
[2023-01-20] MEDS: Folic Acid 1 MG TABLET PO (08:54)
[2023-01-20 09:15] VITALS: BP 117/66; PULSE 89; RESP 20; TEMP 36.2; O2SAT 98
[2023-01-20] MEDS: Haloperidol Lactate 5 MG/ML VIAL 7.5 MG IM (09:23)
--- NOTE | 2023-01-20 12:33 | P.PNPSI_ITS ---
Subjective Subjective Date of Service: 01/20/23 Reason For Visit: Psychosis Interim History: calm, cooperative. declines change from haldol to scheduled thorazine, which he takes orally. per staff, anxious, RIS. pacing. sleeping better. taking PRN thorazine. slept 10-4, woke up screaming. was yelling in the green this morning. Mental Status Exam Mental Status Exam Narrative: adequately dressed and groomed. pacing the halls. cooperative. speech decr in amount, nml latency. seeimingly adequately organized for brief interaction. affect constricted, normo-intense, non-labile. no SI/HI/AVH expressed, but behaviors c/w at the least AH. Diagnostics Vital Signs (24Hr): Vital Signs - 24 hr 01/19/23 18:00 01/20/23 09:15 Temperature 97.2 F Pulse Rate 89 Respiratory Rate 18 20 Blood Pressure 117/66 Pulse Oximetry 98 Oxygen Delivery Method Room Air BMI result Body Mass Index 26.7 Labs 12/23/22 09:53 12/23/22 09:53 Medications Medications Current Medications Acetaminophen (Acetaminophen 325 Mg Tablet) 650 mg PO Q6H PRN PRN Reason: Headache/Pain Mild Scale (1-3) Last Admin: 01/20/23 07:55 Dose: 650 mg Al Hydroxide/Mg Hydroxide (Magnesium Hydrox/Alum Hydrox 30 Ml Oral.Susp) 30 ml PO Q6H PRN PRN Reason: Heartburn/Nausea Benztropine Mesylate (Benztropine Mesylate 1 Mg Tablet) 1 mg PO BID [facility] Last Admin: 01/20/23 08:54 Dose: 1 mg Carbamazepine (Carbamazepine Er 100 Mg Tab.Er.12h) 300 mg PO BID [facility] Last Admin: 01/20/23 08:54 Dose: 300 mg Chlorpromazine HCl (Chlorpromazine Hcl 25 Mg Tablet) 50 mg PO Q4H PRN PRN Reason: agitation Last Admin: 01/19/23 15:45 Dose: 50 mg Clonidine HCl (Clonidine Hcl 0.1 Mg Tablet) 0.1 mg PO Q2H PRN; Protocol PRN Reason: agitation/signs of opioid withdrawal Last Admin: 01/15/23 06:02 Dose: 0.1 mg Dicyclomine HCl (Dicyclomine Hcl 10 Mg Capsule) 10 mg PO QIDACHS PRN PRN Reason: cramps Last Admin: 01/06/23 09:51 Dose: 10 mg Folic Acid (Folic Acid 1 Mg Tablet) 1 mg PO DAILY [facility] Last Admin: 01/20/23 08:54 Dose: 1 mg Haloperidol (Haloperidol 5 Mg Tablet) 10 mg PO BID [facility] Last Admin: 01/20/23 12:08 Dose: Not Given Haloperidol Lactate (Haloperidol Lactate 5 Mg/Ml Vial) 7.5 mg IM BID PRN PRN Reason: if PO refused Last Admin: 01/20/23 09:23 Dose: 7.5 mg Hydroxyzine HCl (Hydroxyzine Hcl 25 Mg Tablet) 25 mg PO Q6H PRN PRN Reason: Anxiety Last Admin: 01/18/23 13:30 Dose: 25 mg Ibuprofen (Ibuprofen 800 Mg Tablet) 800 mg PO TID PRN PRN Reason: back pain Last Admin: 01/19/23 13:59 Dose: 800 mg Lorazepam (Lorazepam 2 Mg/Ml Vial) 2 mg IM BID PRN PRN Reason: refusal of tegretol Magnesium Hydroxide (Milk Of Magnesia 30 Ml Oral.Susp) 30 ml PO DAILY PRN PRN Reason: Constipation Multi-Ingred Cream/Lotion/Oil/Oint (Mineral Oil/Petrolatum,White 106 Gm Tube) 1 appl TOPICAL BID [facility]; Protocol Last Admin: 01/20/23 08:59 Dose: Not Given Nicotine (Nicotine 21 Mg Patch.Td24) 21 mg TRANSDERMA DAILY PRN PRN Reason: smoking cessation Last Admin: 01/15/23 16:06 Dose: 21 mg Nicotine Polacrilex (Nicotine Polacrilex 2 Mg Gum) 4 mg BUCCAL Q2H PRN PRN Reason: nicotine cravings Thiamine HCl (Thiamine Hcl 100 Mg Tablet) 100 mg PO DAILY [facility] Last Admin: 01/20/23 08:54 Dose: 100 mg Trazodone HCl (Trazodone Hcl 50 Mg Tablet) 50 mg PO BEDTIME MRX1 PRN PRN Reason: Insomnia Last Admin: 01/19/23 20:38 Dose: 50 mg Allergies Allergies Allergy/AdvReac Type Severity Reaction Status Date / Time morphine [MORPHINE] AdvReac Unknown NAUSEA Verified 12/10/22 19:56 Assessment & Plan Assessment & Plan (1) Opioid use disorder: Status: Acute Code(s): F11.90 - Opioid use, unspecified, uncomplicated (2) Cocaine use disorder: Status: Acute Code(s): F14.10 - Cocaine abuse, uncomplicated (3) Schizoaffective disorder, bipolar type: Status: Acute Code(s): F25.0 - Schizoaffective disorder, bipolar type Plan 12/24: attempt to give anti-psychotics. comfort meds for opioid and cocaine withdrawal. 12/25: refusing medications. period of agitation last night slamming doors and yelling (presumably @[facility]). continue current mgmt. 12/26: refusing meds. binging and purging. floridly psychotic. 12/27: had meds last night for sleep, per his request. schedule all haldol tonight with ativan and cogentin. a bit more interactive today, remains delayed and distracted. no binging/purgin behaviors or agitated behaviors described by RN report today. 12/28: refused meds last night. Today asks for meds for sx mgt- aggressive today- threw two coffee cups. Begin Depakote 250 mg bid. 12/29: got multiple meds last NOC and overnight per his request. slept 2 hours. refusing meds this morning. commitment paperwork completed. 3-day notice expires tomorrow. c/o opioid craving, asked for methadone. methadone 30 mg daily started today. 12/30: filed for commitment today. haldol and ativan per his request last night. appears in disbelief that he will not be discharged today. 12/31: demanding to leave, getting agitated, banging on nursing station, slamming doors in his room. given IMs x 2, haldol 10 ativan 2 benadryl 50 for first and thorazine 100 for second. 01/01: Remains unpredictable and irritable. Refusing scheduled medications. Section 7/ filed. 01/02: Continue current management. 01/03: refusing meds. irritable, labile. periods of agitation. continue current mgmt, awaiting hearing for . 01/04: refusing meds. irritable, labile. periods of agitation. continue current mgmt, though pt is refusing meds. 01/05: thought-blocked. denies mental illness or need for medications. offer medications. hearing tomorrow. 01/06: committed and ordered medications at hearing. 06/12/20 [facility] [place]d, pt was discharged on VPA, zyprexa, haldol. 03/14/20 DC summary reviewed, pt discharged on zyprexa, haldol. pt unable to comprehend result, agitated not to be leaving today. 01/07: copy of court order on unit, will order meds accordingly today. no change in presentation. 01/08: Continue current regimen and plans 01/09: Continue current plans and regimen. Discontinue contingent IM Ativan if Depakote refused 01/10: Continue current regimen and plans. 01/11: DC VPA, start tegretol per pt preference. ativan 2 mg IM for refusal of tegretol. continue haldol PO/IM orders. improved from last week. less agitated, a bit more organized and engaging. 01/12: appears more disorganized again today, trouble engaging. refused PO meds last night but did take tegretol PO this morning. 01/13: continues disorganized, difficulty expressing himself. refusing PO meds since yesterday morning. slept 10 hours last night, however 01/14: intermittently taking meds PO versus IM. improved behavior from prior to med order, but remains floridly psychotic. continue current mgmt. 01/16/2023: No changes to current plan 01/17: more compliant with tegretol in recent days, still getting haldol IM. no change in presentation. continue current mgmt. 01/18: remains psychotic, labile. increase tegretol to 300 mg BID. 01/19: continues more aggressive and labile today. increase haldol to 10 BID with back-up IM of 7.5 mg. 01/20: more calm today,periods of agitation, however, in the past 24H. continue current mgmt. declines to change scheduled haldol to thorazine (proposed by MD in the hope he would in order to spare him the IMs). Reason for continued inpatient stay Substantial Risk for: harm to self, harm to others, inability to function and rapid decompensation Time Spent With Patient Time: Total time managing care of this patient today ____ minutes.
[2023-01-20] MEDS: chlorproMAZINE HCl 25 MG TABLET 50 MG PO ×2 (14:15→19:51)
[2023-01-20] MEDS: traZODone HCL 50 MG TABLET PO (19:51)
[2023-01-20] MEDS: HaloperidoL 5 MG TABLET 10 MG PO (19:51)
[2023-01-20] MEDS: Ibuprofen 800 MG TABLET PO (19:52)
[2023-01-20 20:00] VITALS: BP 141/81; PULSE 115; RESP 20; TEMP 36.4; O2SAT 97
[2023-01-21] MEDS: Ibuprofen 800 MG TABLET PO ×2 (01:25→21:11)
[2023-01-21] MEDS: carBAMazepine ER 100 MG TAB.ER.12H 300 MG PO ×2 (08:12→21:10)
[2023-01-21] MEDS: Folic Acid 1 MG TABLET PO (08:12)
[2023-01-21] MEDS: Thiamine HCL 100 MG TABLET PO (08:12)
[2023-01-21] MEDS: Benztropine Mesylate 1 MG TABLET PO ×2 (08:13→21:12)
[2023-01-21] MEDS: HaloperidoL 5 MG TABLET 10 MG PO ×2 (08:13→21:12)
[2023-01-21 08:30] VITALS: BP 119/69; PULSE 65; RESP 18; TEMP 36.3; O2SAT 98
--- NOTE | 2023-01-21 13:03 | P.PNPSI_ITS ---
Subjective Subjective Date of Service: 01/21/23 Reason For Visit: Psychosis Subjective Notes: Conditional Voluntary Interim History: Pt superficially cooperative. He reports he is better since he came in that he sleep better and is not constipated. When asked about voices, he initially reported less voices but later stated he had not had any voices in the past 2 years. Appears internally preoccupied and not fully forthcoming with extend of delusions but much calmer and cooperative. He slept at night. Review of Systems Review of Systems unremarkable Yes all other systems are reviewed and are negative and Unobtainable due to mental status Mental Status Exam Mental Status Exam Narrative: adequately dressed and groomed. pacing the halls. cooperative. speech decr in amount, nml latency. seeimingly adequately organized for brief interaction. affect constricted, normo-intense, non-labile. no SI/HI/AVH expressed, but behaviors c/w at the least AH. Diagnostics Vital Signs (24Hr): Vital Signs - 24 hr 01/20/23 20:00 01/21/23 08:30 Temperature 97.5 F 97.3 F Pulse Rate 115 H 65 Respiratory Rate 20 18 Blood Pressure 141/81 H 119/69 Pulse Oximetry 97 98 Oxygen Delivery Method Room Air Room Air BMI result Body Mass Index 26.7 Labs 12/23/22 09:53 12/23/22 09:53 Medications Medications Current Medications Acetaminophen (Acetaminophen 325 Mg Tablet) 650 mg PO Q6H PRN PRN Reason: Headache/Pain Mild Scale (1-3) Last Admin: 01/20/23 23:02 Dose: 650 mg Al Hydroxide/Mg Hydroxide (Magnesium Hydrox/Alum Hydrox 30 Ml Oral.Susp) 30 ml PO Q6H PRN PRN Reason: Heartburn/Nausea Benztropine Mesylate (Benztropine Mesylate 1 Mg Tablet) 1 mg PO BID [facility] Last Admin: 01/21/23 08:13 Dose: 1 mg Carbamazepine (Carbamazepine Er 100 Mg Tab.Er.12h) 300 mg PO BID [facility] Last Admin: 01/21/23 08:12 Dose: 300 mg Chlorpromazine HCl (Chlorpromazine Hcl 25 Mg Tablet) 50 mg PO Q4H PRN PRN Reason: agitation Last Admin: 01/20/23 19:51 Dose: 50 mg Clonidine HCl (Clonidine Hcl 0.1 Mg Tablet) 0.1 mg PO Q2H PRN; Protocol PRN Reason: agitation/signs of opioid withdrawal Last Admin: 01/15/23 06:02 Dose: 0.1 mg Dicyclomine HCl (Dicyclomine Hcl 10 Mg Capsule) 10 mg PO QIDACHS PRN PRN Reason: cramps Last Admin: 01/06/23 09:51 Dose: 10 mg Folic Acid (Folic Acid 1 Mg Tablet) 1 mg PO DAILY [facility] Last Admin: 01/21/23 08:12 Dose: 1 mg Haloperidol (Haloperidol 5 Mg Tablet) 10 mg PO BID [facility] Last Admin: 01/21/23 08:13 Dose: 10 mg Haloperidol Lactate (Haloperidol Lactate 5 Mg/Ml Vial) 7.5 mg IM BID PRN PRN Reason: if PO refused Last Admin: 01/20/23 09:23 Dose: 7.5 mg Hydroxyzine HCl (Hydroxyzine Hcl 25 Mg Tablet) 25 mg PO Q6H PRN PRN Reason: Anxiety Last Admin: 01/18/23 13:30 Dose: 25 mg Ibuprofen (Ibuprofen 800 Mg Tablet) 800 mg PO TID PRN PRN Reason: back pain Last Admin: 01/21/23 01:25 Dose: 800 mg Lorazepam (Lorazepam 2 Mg/Ml Vial) 2 mg IM BID PRN PRN Reason: refusal of tegretol Magnesium Hydroxide (Milk Of Magnesia 30 Ml Oral.Susp) 30 ml PO DAILY PRN PRN Reason: Constipation Multi-Ingred Cream/Lotion/Oil/Oint (Mineral Oil/Petrolatum,White 106 Gm Tube) 1 appl TOPICAL BID [facility]; Protocol Last Admin: 01/21/23 08:17 Dose: Not Given Nicotine (Nicotine 21 Mg Patch.Td24) 21 mg TRANSDERMA DAILY PRN PRN Reason: smoking cessation Last Admin: 01/15/23 16:06 Dose: 21 mg Nicotine Polacrilex (Nicotine Polacrilex 2 Mg Gum) 4 mg BUCCAL Q2H PRN PRN Reason: nicotine cravings Thiamine HCl (Thiamine Hcl 100 Mg Tablet) 100 mg PO DAILY [facility] Last Admin: 01/21/23 08:12 Dose: 100 mg Trazodone HCl (Trazodone Hcl 50 Mg Tablet) 50 mg PO BEDTIME MRX1 PRN PRN Reason: Insomnia Last Admin: 01/20/23 19:51 Dose: 50 mg Allergies Allergies Allergy/AdvReac Type Severity Reaction Status Date / Time morphine [MORPHINE] AdvReac Unknown NAUSEA Verified 12/10/22 19:56 Assessment & Plan Assessment & Plan (1) Schizoaffective disorder, bipolar type: Status: Acute Code(s): F25.0 - Schizoaffective disorder, bipolar type (2) Opioid use disorder: Status: Acute Code(s): F11.90 - Opioid use, unspecified, uncomplicated (3) Cocaine use disorder: Status: Acute Code(s): F14.10 - Cocaine abuse, uncomplicated Plan 12/24: attempt to give anti-psychotics. comfort meds for opioid and cocaine withdrawal. 12/25: refusing medications. period of agitation last night slamming doors and yelling (presumably @). continue current mgmt. 12/26: refusing meds. binging and purging. floridly psychotic. 12/27: had meds last night for sleep, per his request. schedule all haldol tonight with ativan and cogentin. a bit more interactive today, remains delayed and distracted. no binging/purgin behaviors or agitated behaviors described by RN report today. 12/28: refused meds last night. Today asks for meds for sx mgt- aggressive today- threw two coffee cups. Begin Depakote 250 mg bid. 12/29: got multiple meds last NOC and overnight per his request. slept 2 hours. refusing meds this morning. commitment paperwork completed. 3-day notice expires tomorrow. c/o opioid craving, asked for methadone. methadone 30 mg daily started today. 12/30: filed for commitment today. haldol and ativan per his request last night. appears in disbelief that he will not be discharged today. 12/31: demanding to leave, getting agitated, banging on nursing station, slamming doors in his room. given IMs x 2, haldol 10 ativan 2 benadryl 50 for first and thorazine 100 for second. 01/01: Remains unpredictable and irritable. Refusing scheduled medications. Section 7/ filed. 01/02: Continue current management. 01/03: refusing meds. irritable, labile. periods of agitation. continue current mgmt, awaiting hearing for . 01/04: refusing meds. irritable, labile. periods of agitation. continue current mgmt, though pt is refusing meds. 01/05: thought-blocked. denies mental illness or need for medications. offer medications. hearing tomorrow. 01/06: committed and ordered medications at hearing. [place]20 [facility] [place], pt was discharged on VPA, zyprexa, haldol. 03/14/20 DC summary reviewed, pt discharged on zyprexa, haldol. pt unable to comprehend result, agitated not to be leaving today. 01/07: copy of court order on unit, will order meds accordingly today. no change in presentation. 01/08: Continue current regimen and plans 01/09: Continue current plans and regimen. Discontinue contingent IM Ativan if Depakote refused 01/10: Continue current regimen and plans. 01/11: DC VPA, start tegretol per pt preference. ativan 2 mg IM for refusal of tegretol. continue haldol PO/IM orders. improved from last week. less agitated, a bit more organized and engaging. 01/12: appears more disorganized again today, trouble engaging. refused PO meds last night but did take tegretol PO this morning. 01/13: continues disorganized, difficulty expressing himself. refusing PO meds since yesterday morning. slept 10 hours last night, however 01/14: intermittently taking meds PO versus IM. improved behavior from prior to med order, but remains floridly psychotic. continue current mgmt. 01/16/2023: No changes to current plan 01/17: more compliant with tegretol in recent days, still getting haldol IM. no change in presentation. continue current mgmt. 01/18: remains psychotic, labile. increase tegretol to 300 mg BID. 01/19: continues more aggressive and labile today. increase haldol to 10 BID with back-up IM of 7.5 mg. 01/20: more calm today,periods of agitation, however, in the past 24H. continue current mgmt. declines to change scheduled haldol to thorazine (proposed by MD in the hope he would in order to spare him the IMs). 01/21 continue tx. Reason for continued inpatient stay Substantial Risk for: inability to function Time Spent With Patient Time: Total time managing care of this patient today ____ minutes.
[2023-01-21 21:08] VITALS: BP 122/63; PULSE 89; RESP 18; TEMP 36.7; O2SAT 97
[2023-01-21] MEDS: Acetaminophen 325 MG TABLET 650 MG PO (21:11)
[2023-01-21] MEDS: cloNIDine HCL 0.1 MG TABLET PO (21:12)
[2023-01-21] MEDS: chlorproMAZINE HCl 25 MG TABLET 50 MG PO (21:12)
[2023-01-21] MEDS: traZODone HCL 50 MG TABLET PO (21:12)
[2023-01-21] MEDS: hydrOXYzine HCL 25 MG TABLET PO (22:10)
--- NOTE | 2023-01-22 | ECG_ITS ---
Test Reason : check bradycardia and qtc on multiple qt prolongin Blood Pressure : / mmHG Vent. Rate : 066 BPM Atrial Rate : 066 BPM P-R Int : 158 ms QRS Dur : 092 ms QT Int : 378 ms P-R-T Axes : 052 070 014 degrees QTc Int : 396 ms Normal sinus rhythm Septal infarct , age undetermined Abnormal ECG When compared with ECG of 23-DEC-2022 09:34, Septal infarct is now Present Heart rate has increased QT has shortened Referred By: Carmen Man Electronically Signed By:BORIS SKINNER
[2023-01-22] MEDS: Acetaminophen 325 MG TABLET 650 MG PO ×3 (02:42→20:45)
--- NOTE | 2023-01-22 06:03 | PC.NURSE ---
Pt had several outbursts throughout the hourly shift manager tonight. Twice, asking for different shirts to wear and when pt was told we did not have he stated you have shitty service here . At another point after getting two OJ's from the kitchen and placing them at the nurses station. Pt asked for coffee (around early to mid morning) and when told there was none, pt swatted the OJ's wildly on the floor, spilling OJ across the floor, and stated the above quote once again then stating fucking stupid ! Pt then returned to his room. These outbursts seem to be happening more frequently than in days prior.
[2023-01-22 08:00] VITALS: BP 132/73; PULSE 68; RESP 18; TEMP 36.3; O2SAT 97
[2023-01-22] MEDS: carBAMazepine ER 100 MG TAB.ER.12H 300 MG PO ×2 (08:35→20:42)
[2023-01-22] MEDS: Benztropine Mesylate 1 MG TABLET PO ×2 (08:37→20:43)
[2023-01-22] MEDS: HaloperidoL 5 MG TABLET 10 MG PO (08:37)
[2023-01-22] MEDS: Thiamine HCL 100 MG TABLET PO (08:37)
[2023-01-22] MEDS: Folic Acid 1 MG TABLET PO (08:37)
[2023-01-22] MEDS: hydrOXYzine HCL 25 MG TABLET PO ×2 (10:53→21:31)
[2023-01-22] MEDS: chlorproMAZINE HCl 25 MG TABLET 50 MG PO ×3 (10:53→20:45)
--- NOTE | 2023-01-22 14:13 | P.PNPSI_ITS ---
Subjective Subjective Date of Service: 01/22/23 Reason For Visit: Psychosis Subjective Notes: [place] Warning and Section 8 Medical Problems Affecting Mental Status: No Interim History: Pt reports he is doing fine- but night staff report pt not sleeping pt is doing better and in better control in days and appears to be taking PO meds Nursing reports agitation in day only around not being able to get coffee which he had been drinking continuously and now is getting tid. Medication Compliance: Yes (being observed for cheeking- which hasn't been clear) Side effects from medications: No Review of Systems Acute medical concerns: No Though I want to recheck his ekg on antipsychotics moni thorazine I want to schedule for bedtime Medical Review of Systems: unchanged Mental Status Exam Mental Status Exam Narrative: oddly dressed in sweater that is too tight- /small Patient Appearance: Inappropriate Patient Orientation: Person, Place and Time Level of Consciousness: Awake and Appropriate Patient Behavior: Passive Mood Description: Calm Affect Description: Calm Ability to Follow Directions: Fair Speech Pattern: Impoverished Hallucinations: None (denying currently) Delusions: Thought Insert/Delete (denies) Thought Process: Slowed Thinking Thought Content: positive for [place] Judgement: Fair Diagnostics Vital Signs (24Hr): Vital Signs - 24 hr 01/21/23 21:08 01/22/23 08:00 Temperature 98.0 F 97.4 F Pulse Rate 89 68 Respiratory Rate 18 18 Blood Pressure 122/63 132/73 Pulse Oximetry 97 97 Oxygen Delivery Method Room Air Room Air BMI result Body Mass Index 26.7 Labs 12/23/22 09:53 12/23/22 09:53 Medications Medications Current Medications Acetaminophen (Acetaminophen 325 Mg Tablet) 650 mg PO Q6H PRN PRN Reason: Headache/Pain Mild Scale (1-3) Last Admin: 01/22/23 09:43 Dose: 650 mg Al Hydroxide/Mg Hydroxide (Magnesium Hydrox/Alum Hydrox 30 Ml Oral.Susp) 30 ml PO Q6H PRN PRN Reason: Heartburn/Nausea Benztropine Mesylate (Benztropine Mesylate 1 Mg Tablet) 1 mg PO BID [facility] Last Admin: 01/22/23 08:37 Dose: 1 mg Carbamazepine (Carbamazepine Er 100 Mg Tab.Er.12h) 300 mg PO BID [facility] Last Admin: 01/22/23 08:35 Dose: 300 mg Chlorpromazine HCl (Chlorpromazine Hcl 25 Mg Tablet) 50 mg PO Q4H PRN PRN Reason: agitation Last Admin: 01/22/23 10:53 Dose: 50 mg Clonidine HCl (Clonidine Hcl 0.1 Mg Tablet) 0.1 mg PO Q2H PRN; Protocol PRN Reason: agitation/signs of opioid withdrawal Last Admin: 01/21/23 21:12 Dose: 0.1 mg Dicyclomine HCl (Dicyclomine Hcl 10 Mg Capsule) 10 mg PO QIDACHS PRN PRN Reason: cramps Last Admin: 01/06/23 09:51 Dose: 10 mg Folic Acid (Folic Acid 1 Mg Tablet) 1 mg PO DAILY [facility] Last Admin: 01/22/23 08:37 Dose: 1 mg Haloperidol (Haloperidol 5 Mg Tablet) 10 mg PO BID [facility] Last Admin: 01/22/23 08:37 Dose: 10 mg Haloperidol Lactate (Haloperidol Lactate 5 Mg/Ml Vial) 7.5 mg IM BID PRN PRN Reason: if PO refused Last Admin: 01/20/23 09:23 Dose: 7.5 mg Hydroxyzine HCl (Hydroxyzine Hcl 25 Mg Tablet) 25 mg PO Q6H PRN PRN Reason: Anxiety Last Admin: 01/22/23 10:53 Dose: 25 mg Ibuprofen (Ibuprofen 800 Mg Tablet) 800 mg PO TID PRN PRN Reason: back pain Last Admin: 01/21/23 21:11 Dose: 800 mg Magnesium Hydroxide (Milk Of Magnesia 30 Ml Oral.Susp) 30 ml PO DAILY PRN PRN Reason: Constipation Multi-Ingred Cream/Lotion/Oil/Oint (Mineral Oil/Petrolatum,White 106 Gm Tube) 1 appl TOPICAL BID [facility]; Protocol Last Admin: 01/22/23 08:38 Dose: Not Given Nicotine (Nicotine 21 Mg Patch.Td24) 21 mg TRANSDERMA DAILY PRN PRN Reason: smoking cessation Last Admin: 01/15/23 16:06 Dose: 21 mg Nicotine Polacrilex (Nicotine Polacrilex 2 Mg Gum) 4 mg BUCCAL Q2H PRN PRN Reason: nicotine cravings Thiamine HCl (Thiamine Hcl 100 Mg Tablet) 100 mg PO DAILY [facility] Last Admin: 01/22/23 08:37 Dose: 100 mg Trazodone HCl (Trazodone Hcl 50 Mg Tablet) 50 mg PO BEDTIME MRX1 PRN PRN Reason: Insomnia Last Admin: 01/21/23 21:12 Dose: 50 mg Allergies Allergies Allergy/AdvReac Type Severity Reaction Status Date / Time morphine [MORPHINE] AdvReac Unknown NAUSEA Verified 12/10/22 19:56 Assessment & Plan Assessment & Plan (1) Schizoaffective disorder, bipolar type: Status: Acute Code(s): F25.0 - Schizoaffective disorder, bipolar type (2) Opioid use disorder: Status: Acute Code(s): F11.90 - Opioid use, unspecified, uncomplicated (3) Cocaine use disorder: Status: Acute Code(s): F14.10 - Cocaine abuse, uncomplicated Plan 12/24: attempt to give anti-psychotics. comfort meds for opioid and cocaine withdrawal. 12/25: refusing medications. period of agitation last night slamming doors and yelling (presumably @). continue current mgmt. 12/26: refusing meds. binging and purging. floridly psychotic. 12/27: had meds last night for sleep, per his request. schedule all haldol tonight with ativan and cogentin. a bit more interactive today, remains delayed and distracted. no binging/purgin behaviors or agitated behaviors described by RN report today. 12/28: refused meds last night. Today asks for meds for sx mgt- aggressive today- threw two coffee cups. Begin Depakote 250 mg bid. 12/29: got multiple meds last NOC and overnight per his request. slept 2 hours. refusing meds this morning. commitment paperwork completed. 3-day notice expires tomorrow. c/o opioid craving, asked for methadone. methadone 30 mg daily started today. 12/30: filed for commitment today. haldol and ativan per his request last night. appears in disbelief that he will not be discharged today. 12/31: demanding to leave, getting agitated, banging on nursing station, slamming doors in his room. given IMs x 2, haldol 10 ativan 2 benadryl 50 for first and thorazine 100 for second. 01/01: Remains unpredictable and irritable. Refusing scheduled medications. Section 7/ filed. 01/02: Continue current management. 01/03: refusing meds. irritable, labile. periods of agitation. continue current mgmt, awaiting hearing for . 01/04: refusing meds. irritable, labile. periods of agitation. continue current mgmt, though pt is refusing meds. 01/05: thought-blocked. denies mental illness or need for medications. offer medications. hearing tomorrow. 01/06: committed and ordered medications at hearing. 06/12/20 [facility] DC summary reviewd, pt was discharged on VPA, zyprexa, haldol. 03/14/20 DC summary reviewed, pt discharged on zyprexa, haldol. pt unable to comprehend result, agitated not to be leaving today. 01/07: copy of court order on unit, will order meds accordingly today. no change in presentation. 01/08: Continue current regimen and plans 01/09: Continue current plans and regimen. Discontinue contingent IM Ativan if Depakote refused 01/10: Continue current regimen and plans. 01/11: DC VPA, start tegretol per pt preference. ativan 2 mg IM for refusal of tegretol. continue haldol PO/IM orders. improved from last week. less agitated, a bit more organized and engaging. 01/12: appears more disorganized again today, trouble engaging. refused PO meds last night but did take tegretol PO this morning. 01/13: continues disorganized, difficulty expressing himself. refusing PO meds since yesterday morning. slept 10 hours last night, however 01/14: intermittently taking meds PO versus IM. improved behavior from prior to med order, but remains floridly psychotic. continue current mgmt. 01/16/2023: No changes to current plan 01/17: more compliant with tegretol in recent days, still getting haldol IM. no change in presentation. continue current mgmt. 01/18: remains psychotic, labile. increase tegretol to 300 mg BID. 01/19: continues more aggressive and labile today. increase haldol to 10 BID with back-up IM of 7.5 mg. 01/20: more calm today,periods of agitation, however, in the past 24H. continue current mgmt. declines to change scheduled haldol to thorazine (proposed by in the hope he would in order to spare him the IMs). 01/21 continue tx. 01/22 writing for thorazine at bed- mr x1 and check ekg given other antipsycotics on board Patient educated on: medication risk/benefits Informed Consent: further education needed Reason for continued inpatient stay Substantial Risk for: inability to function and rapid decompensation Time Spent With Patient Time: Total time managing care of this patient today ____ minutes.
[2023-01-22] MEDS: Ibuprofen 800 MG TABLET PO (14:52)
[2023-01-22] MEDS: cloNIDine HCL 0.1 MG TABLET PO (20:46)
[2023-01-22] MEDS: Haloperidol Lactate Oral Conc 10 MG/5 ML ORAL.CONC PO (20:46)
[2023-01-22 21:13] VITALS: BP 120/63; PULSE 67; RESP 18; TEMP 36.6; O2SAT 99
[2023-01-23] MEDS: Ibuprofen 800 MG TABLET PO ×2 (00:11→20:18)
[2023-01-23 08:00] VITALS: BP 118/59; PULSE 76; RESP 18; TEMP 36.3; O2SAT 99
[2023-01-23] MEDS: Benztropine Mesylate 1 MG TABLET PO ×2 (08:12→20:13)
[2023-01-23] MEDS: Haloperidol Lactate Oral Conc 10 MG/5 ML ORAL.CONC PO ×2 (08:12→20:14)
[2023-01-23] MEDS: Folic Acid 1 MG TABLET PO (08:12)
[2023-01-23] MEDS: Thiamine HCL 100 MG TABLET PO (08:12)
[2023-01-23] MEDS: Acetaminophen 325 MG TABLET 650 MG PO ×3 (08:12→22:06)
[2023-01-23] MEDS: carBAMazepine ER 100 MG TAB.ER.12H 300 MG PO ×2 (08:13→20:13)
--- NOTE | 2023-01-23 11:15 | HO.PSYCHPN ---
Subjective Subjective Date of Service: 01/23/23 Reason For Visit: Psychosis Subjective Notes: Section 8 Medical Problems Affecting Mental Status: No Interim History: Pt reports fine- pointed out to patient he is fine till later pm and then becomes more irritable thru day - and maybe we could prevent that with a prn before it happens- nursing suggested scheduled dose and pt and this provider agreed- Medication Compliance: Yes Side effects from medications: No Attending Groups: No Review of Systems Acute medical concerns: No Medical Review of Systems: unchanged Mental Status Exam Mental Status Exam Narrative: groomed with shave this am - still wearing odd sweater Patient Orientation: Person, Place, Time and Situation Level of Consciousness: Awake and Restless Patient Behavior: Restless, Distractible, Good Eye Contact and Impulsive Behavior Comments: can be irritable in pm Mood Description: Calm (in ams ) Affect Description: Labile Ability to Follow Directions: Fair Speech Pattern: Clear Thought Process: Distracted and Slowed Thinking Thought Content: positive for [place] and positive for Poverty of Content Depressive Symptoms: Increased Irritability (ongoing irritability in pms) Abnormal Motor Activity Signs and Symptoms: Hyperactivity Judgement: Fair (agrees to take meds!) Diagnostics Vital Signs (24Hr): Vital Signs - 24 hr 01/22/23 21:13 01/23/23 08:00 Temperature 97.8 F 97.3 F Pulse Rate 67 76 Respiratory Rate 18 18 Blood Pressure 120/63 118/59 L Pulse Oximetry 99 99 Oxygen Delivery Method Room Air Room Air BMI result Body Mass Index 26.7 Labs 12/23/22 09:53 12/23/22 09:53 EKG EKG: reviewed (01/22 qtc ok) Medications Medications Current Medications Acetaminophen (Acetaminophen 325 Mg Tablet) 650 mg PO Q6H PRN PRN Reason: Headache/Pain Mild Scale (1-3) Last Admin: 01/23/23 08:12 Dose: 650 mg Al Hydroxide/Mg Hydroxide (Magnesium Hydrox/Alum Hydrox 30 Ml Oral.Susp) 30 ml PO Q6H PRN PRN Reason: Heartburn/Nausea Benztropine Mesylate (Benztropine Mesylate 1 Mg Tablet) 1 mg PO BID [facility] Last Admin: 01/23/23 08:12 Dose: 1 mg Carbamazepine (Carbamazepine Er 100 Mg Tab.Er.12h) 300 mg PO BID [facility] Last Admin: 01/23/23 08:13 Dose: 300 mg Chlorpromazine HCl (Chlorpromazine Hcl 25 Mg Tablet) 50 mg PO Q4H PRN PRN Reason: agitation Last Admin: 01/22/23 16:59 Dose: 50 mg Chlorpromazine HCl (Chlorpromazine Hcl 25 Mg Tablet) 50 mg PO BEDTIME MRX1 [facility] Last Admin: 01/22/23 23:49 Dose: Not Given Clonidine HCl (Clonidine Hcl 0.1 Mg Tablet) 0.1 mg PO Q2H PRN; Protocol PRN Reason: agitation/signs of opioid withdrawal Last Admin: 01/22/23 20:46 Dose: 0.1 mg Dicyclomine HCl (Dicyclomine Hcl 10 Mg Capsule) 10 mg PO QIDACHS PRN PRN Reason: cramps Last Admin: 01/06/23 09:51 Dose: 10 mg Folic Acid (Folic Acid 1 Mg Tablet) 1 mg PO DAILY [facility] Last Admin: 01/23/23 08:12 Dose: 1 mg Haloperidol Lactate (Haloperidol Lactate 5 Mg/Ml Vial) 7.5 mg IM BID PRN PRN Reason: if PO refused Last Admin: 01/20/23 09:23 Dose: 7.5 mg Haloperidol Lactate (Haloperidol Lactate Oral Conc 10 Mg/5 Ml Oral.Conc) 10 mg PO BID [facility] Last Admin: 01/23/23 08:12 Dose: 10 mg Hydroxyzine HCl (Hydroxyzine Hcl 25 Mg Tablet) 25 mg PO Q6H PRN PRN Reason: Anxiety Last Admin: 01/22/23 21:31 Dose: 25 mg Ibuprofen (Ibuprofen 800 Mg Tablet) 800 mg PO TID PRN PRN Reason: back pain Last Admin: 01/23/23 00:11 Dose: 800 mg Magnesium Hydroxide (Milk Of Magnesia 30 Ml Oral.Susp) 30 ml PO DAILY PRN PRN Reason: Constipation Multi-Ingred Cream/Lotion/Oil/Oint (Mineral Oil/Petrolatum,White 106 Gm Tube) 1 appl TOPICAL BID [facility]; Protocol Last Admin: 01/23/23 08:55 Dose: Not Given Nicotine (Nicotine 21 Mg Patch.Td24) 21 mg TRANSDERMA DAILY PRN PRN Reason: smoking cessation Last Admin: 01/15/23 16:06 Dose: 21 mg Nicotine Polacrilex (Nicotine Polacrilex 2 Mg Gum) 4 mg BUCCAL Q2H PRN PRN Reason: nicotine cravings Thiamine HCl (Thiamine Hcl 100 Mg Tablet) 100 mg PO DAILY [facility] Last Admin: 01/23/23 08:12 Dose: 100 mg Trazodone HCl (Trazodone Hcl 50 Mg Tablet) 50 mg PO BEDTIME MRX1 PRN PRN Reason: Insomnia Last Admin: 01/21/23 21:12 Dose: 50 mg Allergies Allergies Allergy/AdvReac Type Severity Reaction Status Date / Time morphine [MORPHINE] AdvReac Unknown NAUSEA Verified 12/10/22 19:56 Assessment & Plan Assessment & Plan (1) Schizoaffective disorder, bipolar type: Status: Acute Code(s): F25.0 - Schizoaffective disorder, bipolar type (2) Opioid use disorder: Status: Acute Code(s): F11.90 - Opioid use, unspecified, uncomplicated (3) Cocaine use disorder: Status: Acute Code(s): F14.10 - Cocaine abuse, uncomplicated Plan 12/24: attempt to give anti-psychotics. comfort meds for opioid and cocaine withdrawal. 12/25: refusing medications. period of agitation last night slamming doors and yelling (presumably @). continue current mgmt. 12/26: refusing meds. binging and purging. floridly psychotic. 12/27: had meds last night for sleep, per his request. schedule all haldol tonight with ativan and cogentin. a bit more interactive today, remains delayed and distracted. no binging/purgin behaviors or agitated behaviors described by RN report today. 12/28: refused meds last night. Today asks for meds for sx mgt- aggressive today-threw two coffee cups. Begin Depakote 250 mg bid. 12/29: got multiple meds last NOC and overnight per his request. slept 2 hours. refusing meds this morning. commitment paperwork completed. 3-day notice expires tomorrow. c/o opioid craving, asked for methadone. methadone 30 mg daily started today. 12/30: filed for commitment today. haldol and ativan per his request last night. appears in disbelief that he will not be discharged today. 12/31: demanding to leave, getting agitated, banging on nursing station, slamming doors in his room. given IMs x 2, haldol 10 ativan 2 benadryl 50 for first and thorazine 100 for second. 01/01: Remains unpredictable and irritable. Refusing scheduled medications. Section 7/8 filed. 01/02: Continue current management. 01/03: refusing meds. irritable, labile. periods of agitation. continue current mgmt, awaiting hearing for . 01/04: refusing meds. irritable, labile. periods of agitation. continue current mgmt, though pt is refusing meds. 01/05: thought-blocked. denies mental illness or need for medications. offer medications. hearing tomorrow. 01/06: committed and ordered medications at hearing. 06/12/20 [facility] [place], pt was discharged on VPA, zyprexa, haldol. 03/14/20 DC summary reviewed, pt discharged on zyprexa, haldol. pt unable to comprehend result, agitated not to be leaving today. 01/07: copy of court order on unit, will order meds accordingly today. no change in presentation. 01/08: Continue current regimen and plans 01/09: Continue current plans and regimen. Discontinue contingent IM Ativan if Depakote refused 01/10: Continue current regimen and plans. 01/11: DC VPA, start tegretol per pt preference. ativan 2 mg IM for refusal of tegretol. continue haldol PO/IM orders. improved from last week. less agitated, a bit more organized and engaging. 01/12: appears more disorganized again today, trouble engaging. refused PO meds last night but did take tegretol PO this morning. 01/13: continues disorganized, difficulty expressing himself. refusing PO meds since yesterday morning. slept 10 hours last night, however 01/14: intermittently taking meds PO versus IM. improved behavior from prior to med order, but remains floridly psychotic. continue current mgmt. 01/16/2023: No changes to current plan 01/17: more compliant with tegretol in recent days, still getting haldol IM. no change in presentation. continue current mgmt. 01/18: remains psychotic, labile. increase tegretol to 300 mg BID. 01/19: continues more aggressive and labile today. increase haldol to 10 BID with back-up IM of 7.5 mg. 01/20: more calm today,periods of agitation, however, in the past 24H. continue current mgmt. declines to change scheduled haldol to thorazine (proposed by MD in the hope he would in order to spare him the IMs). 01/21 continue tx. 01/22 writing for thorazine at bed- mr x1 and check ekg given other antipsycotics on board 01/23 agreed to ekg today, added 1pm dose of 5mg haldol Patient educated on: medication risk/benefits Informed Consent: understands (but on sec 8 allows up to 40mg haldol this would inc from 20 to 25mg/day) Reason for continued inpatient stay Substantial Risk for: inability to function and rapid decompensation Time Spent With Patient Time: Total time managing care of this patient today ____ minutes.
[2023-01-23] MEDS: Haloperidol Lactate Oral Conc 10 MG/5 ML ORAL.CONC 5 MG PO (12:43)
[2023-01-23 19:50] VITALS: BP 125/67; PULSE 84; RESP 16; TEMP 36.7; O2SAT 99
[2023-01-23] MEDS: chlorproMAZINE HCl 25 MG TABLET 50 MG PO (20:14)
[2023-01-24] MEDS: Acetaminophen 325 MG TABLET 650 MG PO ×4 (04:06→23:51)
[2023-01-24] MEDS: Ibuprofen 800 MG TABLET PO ×2 (07:55→16:01)
[2023-01-24] MEDS: Haloperidol Lactate Oral Conc 10 MG/5 ML ORAL.CONC PO ×2 (07:56→21:23)
[2023-01-24] MEDS: carBAMazepine ER 100 MG TAB.ER.12H 300 MG PO ×2 (07:56→21:23)
[2023-01-24] MEDS: Folic Acid 1 MG TABLET PO (07:57)
[2023-01-24] MEDS: Benztropine Mesylate 1 MG TABLET PO ×2 (07:57→21:23)
[2023-01-24] MEDS: Thiamine HCL 100 MG TABLET PO (07:57)
[2023-01-24 08:00] VITALS: BP 130/59; PULSE 54; RESP 16; TEMP 36.2; O2SAT 97
[2023-01-24] MEDS: Haloperidol Lactate Oral Conc 10 MG/5 ML ORAL.CONC 5 MG PO (12:59)
--- NOTE | 2023-01-24 17:22 | P.PNPSI_ITS ---
Subjective Subjective Date of Service: 01/24/23 Reason For Visit: Psychosis Interim History: lying in bed, terse, avoidant, minimizing. per staff, better in mornings, taking all meds PO now. swinging and yelling at nothing tuesday. Mental Status Exam Mental Status Exam Narrative: adequately dressed and groomed. lying in bed. cooperative. speech decr in amount, nml latency. seemingly adequately organized for brief interaction. affect constricted, normo-intense, non-labile. no SI/HI/AVH expressed, but behaviors c/w at the least AH. Diagnostics Vital Signs (24Hr): Vital Signs - 24 hr 01/23/23 19:50 01/24/23 08:00 Temperature 98.1 F 97.1 F Pulse Rate 84 54 Respiratory Rate 16 16 Blood Pressure 125/67 130/59 L Pulse Oximetry 99 97 Oxygen Delivery Method Room Air Room Air BMI result Body Mass Index 26.7 Labs 12/23/22 09:53 12/23/22 09:53 Medications Medications Current Medications Acetaminophen (Acetaminophen 325 Mg Tablet) 650 mg PO Q6H PRN PRN Reason: Headache/Pain Mild Scale (1-3) Last Admin: 01/24/23 11:51 Dose: 650 mg Al Hydroxide/Mg Hydroxide (Magnesium Hydrox/Alum Hydrox 30 Ml Oral.Susp) 30 ml PO Q6H PRN PRN Reason: Heartburn/Nausea Benztropine Mesylate (Benztropine Mesylate 1 Mg Tablet) 1 mg PO BID [facility] Last Admin: 01/24/23 07:57 Dose: 1 mg Carbamazepine (Carbamazepine Er 100 Mg Tab.Er.12h) 300 mg PO BID [facility] Last Admin: 01/24/23 07:56 Dose: 300 mg Chlorpromazine HCl (Chlorpromazine Hcl 25 Mg Tablet) 50 mg PO Q4H PRN PRN Reason: agitation Last Admin: 01/22/23 16:59 Dose: 50 mg Chlorpromazine HCl (Chlorpromazine Hcl 25 Mg Tablet) 50 mg PO BEDTIME MRX1 [facility] Last Admin: 01/23/23 23:06 Dose: Not Given Clonidine HCl (Clonidine Hcl 0.1 Mg Tablet) 0.1 mg PO Q2H PRN; Protocol PRN Reason: agitation/signs of opioid withdrawal Last Admin: 01/22/23 20:46 Dose: 0.1 mg Dicyclomine HCl (Dicyclomine Hcl 10 Mg Capsule) 10 mg PO QIDACHS PRN PRN Reason: cramps Last Admin: 01/06/23 09:51 Dose: 10 mg Folic Acid (Folic Acid 1 Mg Tablet) 1 mg PO DAILY [facility] Last Admin: 01/24/23 07:57 Dose: 1 mg Haloperidol Lactate (Haloperidol Lactate 5 Mg/Ml Vial) 7.5 mg IM BID PRN PRN Reason: if PO refused Last Admin: 01/20/23 09:23 Dose: 7.5 mg Haloperidol Lactate (Haloperidol Lactate Oral Conc 10 Mg/5 Ml Oral.Conc) 10 mg PO BID [facility] Last Admin: 01/24/23 07:56 Dose: 10 mg Haloperidol Lactate (Haloperidol Lactate Oral Conc 10 Mg/5 Ml Oral.Conc) 5 mg PO DAILY@1300 [facility] Last Admin: 01/24/23 12:59 Dose: 5 mg Hydroxyzine HCl (Hydroxyzine Hcl 25 Mg Tablet) 25 mg PO Q6H PRN PRN Reason: Anxiety Last Admin: 01/22/23 21:31 Dose: 25 mg Ibuprofen (Ibuprofen 800 Mg Tablet) 800 mg PO TID PRN PRN Reason: back pain Last Admin: 01/24/23 16:01 Dose: 800 mg Magnesium Hydroxide (Milk Of Magnesia 30 Ml Oral.Susp) 30 ml PO DAILY PRN PRN Reason: Constipation Multi-Ingred Cream/Lotion/Oil/Oint (Mineral Oil/Petrolatum,White 106 Gm Tube) 1 appl TOPICAL BID [facility]; Protocol Last Admin: 01/24/23 08:45 Dose: Not Given Nicotine (Nicotine 21 Mg Patch.Td24) 21 mg TRANSDERMA DAILY PRN PRN Reason: smoking cessation Last Admin: 01/15/23 16:06 Dose: 21 mg Nicotine Polacrilex (Nicotine Polacrilex 2 Mg Gum) 4 mg BUCCAL Q2H PRN PRN Reason: nicotine cravings Thiamine HCl (Thiamine Hcl 100 Mg Tablet) 100 mg PO DAILY [facility] Last Admin: 01/24/23 07:57 Dose: 100 mg Trazodone HCl (Trazodone Hcl 50 Mg Tablet) 50 mg PO BEDTIME MRX1 PRN PRN Reason: Insomnia Last Admin: 01/21/23 21:12 Dose: 50 mg Allergies Allergies Allergy/AdvReac Type Severity Reaction Status Date / Time morphine [MORPHINE] AdvReac Unknown NAUSEA Verified 08/04/23 19:56 Assessment & Plan Assessment & Plan (1) Schizoaffective disorder, bipolar type: Status: Acute Code(s): F25.0 - Schizoaffective disorder, bipolar type (2) Opioid use disorder: Status: Acute Code(s): F11.90 - Opioid use, unspecified, uncomplicated (3) Cocaine use disorder: Status: Acute Code(s): F14.10 - Cocaine abuse, uncomplicated Plan 12/24: attempt to give anti-psychotics. comfort meds for opioid and cocaine withdrawal. 12/25: refusing medications. period of agitation last night slamming doors and yelling (presumably @). continue current mgmt. 12/26: refusing meds. binging and purging. floridly psychotic. 12/27: had meds last night for sleep, per his request. schedule all haldol tonight with ativan and cogentin. a bit more interactive today, remains delayed and distracted. no binging/purgin behaviors or agitated behaviors described by RN report today. 12/28: refused meds last night. Today asks for meds for sx mgt- aggressive today- threw two coffee cups. Begin Depakote 250 mg bid. 12/29: got multiple meds last NOC and overnight per his request. slept 2 hours. refusing meds this morning. commitment paperwork completed. 3-day notice expires tomorrow. c/o opioid craving, asked for methadone. methadone 30 mg daily started today. 12/30: filed for commitment today. haldol and ativan per his request last night. appears in disbelief that he will not be discharged today. 12/31: demanding to leave, getting agitated, banging on nursing station, slamming doors in his room. given IMs x 2, haldol 10 ativan 2 benadryl 50 for first and thorazine 100 for second. 01/01: Remains unpredictable and irritable. Refusing scheduled medications. Section 7/ filed. 01/02: Continue current management. 01/03: refusing meds. irritable, labile. periods of agitation. continue current mgmt, awaiting hearing for . 01/04: refusing meds. irritable, labile. periods of agitation. continue current mgmt, though pt is refusing meds. 01/05: thought-blocked. denies mental illness or need for medications. offer medications. hearing tomorrow. 01/06: committed and ordered medications at hearing. 06/12/20 [facility] [place] DC summary reviewd, pt was discharged on VPA, zyprexa, haldol. 03/14/20 DC summary reviewed, pt discharged on zyprexa, haldol. pt unable to comprehend result, agitated not to be leaving today. 01/07: copy of court order on unit, will order meds accordingly today. no change in presentation. 01/08: Continue current regimen and plans 01/09: Continue current plans and regimen. Discontinue contingent IM Ativan if Depakote refused 01/10: Continue current regimen and plans. 01/11: DC VPA, start tegretol per pt preference. ativan 2 mg IM for refusal of tegretol. continue haldol PO/IM orders. improved from last week. less agitated, a bit more organized and engaging. 01/12: appears more disorganized again today, trouble engaging. refused PO meds last night but did take tegretol PO this morning. 01/13: continues disorganized, difficulty expressing himself. refusing PO meds since yesterday morning. slept 10 hours last night, however 01/14: intermittently taking meds PO versus IM. improved behavior from prior to med order, but remains floridly psychotic. continue current mgmt. 01/16/2023: No changes to current plan 01/17: more compliant with tegretol in recent days, still getting haldol IM. no change in presentation. continue current mgmt. 01/18: remains psychotic, labile. increase tegretol to 300 mg BID. 01/19: continues more aggressive and labile today. increase haldol to 10 BID with back-up IM of 7.5 mg. 01/20: more calm today,periods of agitation, however, in the past 24H. continue current mgmt. declines to change scheduled haldol to thorazine (proposed by in the hope he would in order to spare him the IMs). 01/21 continue tx. 01/22 writing for thorazine at bed- mr x1 and check ekg given other antipsycotics on board 01/23 agreed to ekg today, added 1pm dose of 5mg haldol 01/24: taking meds PO, still suffering from AH, possibly VH. perhaps trending more calm, but clearly still periods of agitation in the past several days. Reason for continued inpatient stay Substantial Risk for: harm to self, harm to others, inability to function and rapid decompensation Time Spent With Patient Time: Total time managing care of this patient today ____ minutes.
[2023-01-24] MEDS: hydrOXYzine HCL 25 MG TABLET PO (19:44)
[2023-01-24 20:48] VITALS: BP 125/67; PULSE 81; RESP 93; TEMP 36.6
[2023-01-24] MEDS: chlorproMAZINE HCl 25 MG TABLET 50 MG PO ×2 (21:23→22:24)
[2023-01-24 21:25] VITALS: BP 113/68; PULSE 69; RESP 18
[2023-01-24] MEDS: cloNIDine HCL 0.1 MG TABLET PO (21:30)
[2023-01-25] MEDS: Ibuprofen 800 MG TABLET PO ×3 (05:41→22:35)
[2023-01-25 06:00] VITALS: BP 114/70; PULSE 88; RESP 18; TEMP 36.9; O2SAT 98
[2023-01-25] MEDS: Acetaminophen 325 MG TABLET 650 MG PO ×3 (08:03→20:32)
[2023-01-25] MEDS: carBAMazepine ER 100 MG TAB.ER.12H 300 MG PO (08:03)
[2023-01-25] MEDS: Folic Acid 1 MG TABLET PO (08:04)
[2023-01-25] MEDS: Thiamine HCL 100 MG TABLET PO (08:04)
[2023-01-25] MEDS: Benztropine Mesylate 1 MG TABLET PO ×2 (08:05→20:34)
[2023-01-25] MEDS: Haloperidol Lactate Oral Conc 10 MG/5 ML ORAL.CONC PO ×2 (08:07→20:32)
[2023-01-25] MEDS: hydrOXYzine HCL 25 MG TABLET PO ×2 (10:45→19:07)
[2023-01-25] MEDS: cloNIDine HCL 0.1 MG TABLET PO ×2 (11:14→18:03)
[2023-01-25] MEDS: Haloperidol Lactate Oral Conc 10 MG/5 ML ORAL.CONC 5 MG PO (13:17)
--- NOTE | 2023-01-25 15:15 | P.PNPSI_ITS ---
Subjective Subjective Date of Service: 01/25/23 Reason For Visit: Psychosis Interim History: pt asking if MD has any status update. lauds pt for taking medications PO now, informs pt we are working up on the tegretol dosing, from 300 BID to 400 BID. pt immediately becomes agitated and pointing at MD makes homophobic slurs and allegations toward MD. staff intervene to de-escalate and redirect pt. per staff, pleasant and denying Sx. +RIS. not attending groups. meds and meals compliant. anx 6 eves. reporting AH of mumbling. denies VH. Mental Status Exam Mental Status Exam Narrative: adequately dressed and groomed. up and about the unit. variably cooperative. speech nml in amount, decr latency. variably normal to elevated. seemingly organized for brief interaction but clearly suffering from paranoid delusions. affect constricted, hyper-intense, labile. no SI/HI/AVH expressed, but behaviors c/w at the least AH. Diagnostics Vital Signs (24Hr): Vital Signs - 24 hr 01/24/23 20:48 01/24/23 21:25 Temperature 98 F Pulse Rate 81 69 Respiratory Rate 93 H 18 Blood Pressure 125/67 113/68 Oxygen Delivery Method Room Air BMI result Body Mass Index 26.7 Labs 12/23/22 09:53 12/23/22 09:53 Medications Medications Current Medications Acetaminophen (Acetaminophen 325 Mg Tablet) 650 mg PO Q6H PRN PRN Reason: Headache/Pain Mild Scale (1-3) Last Admin: 01/25/23 14:19 Dose: 650 mg Al Hydroxide/Mg Hydroxide (Magnesium Hydrox/Alum Hydrox 30 Ml Oral.Susp) 30 ml PO Q6H PRN PRN Reason: Heartburn/Nausea Benztropine Mesylate (Benztropine Mesylate 1 Mg Tablet) 1 mg PO BID [facility] Last Admin: 01/25/23 08:05 Dose: 1 mg Carbamazepine (Carbamazepine Er 100 Mg Tab.Er.12h) 300 mg PO BID [facility] Last Admin: 01/25/23 08:03 Dose: 300 mg Chlorpromazine HCl (Chlorpromazine Hcl 25 Mg Tablet) 50 mg PO Q4H PRN PRN Reason: agitation Last Admin: 01/22/23 16:59 Dose: 50 mg Chlorpromazine HCl (Chlorpromazine Hcl 25 Mg Tablet) 50 mg PO BEDTIME [facility] Clonidine HCl (Clonidine Hcl 0.1 Mg Tablet) 0.1 mg PO Q2H PRN; Protocol PRN Reason: agitation/signs of opioid withdrawal Last Admin: 01/25/23 11:14 Dose: 0.1 mg Dicyclomine HCl (Dicyclomine Hcl 10 Mg Capsule) 10 mg PO QIDACHS PRN PRN Reason: cramps Last Admin: 01/06/23 09:51 Dose: 10 mg Folic Acid (Folic Acid 1 Mg Tablet) 1 mg PO DAILY [facility] Last Admin: 01/25/23 08:04 Dose: 1 mg Haloperidol Lactate (Haloperidol Lactate 5 Mg/Ml Vial) 7.5 mg IM BID PRN PRN Reason: if PO refused Last Admin: 01/20/23 09:23 Dose: 7.5 mg Haloperidol Lactate (Haloperidol Lactate Oral Conc 10 Mg/5 Ml Oral.Conc) 10 mg PO BID [facility] Last Admin: 01/25/23 08:07 Dose: 10 mg Haloperidol Lactate (Haloperidol Lactate Oral Conc 10 Mg/5 Ml Oral.Conc) 5 mg PO DAILY@1300 [facility] Last Admin: 01/25/23 13:17 Dose: 5 mg Hydroxyzine HCl (Hydroxyzine Hcl 25 Mg Tablet) 25 mg PO Q6H PRN PRN Reason: Anxiety Last Admin: 01/25/23 10:45 Dose: 25 mg Ibuprofen (Ibuprofen 800 Mg Tablet) 800 mg PO TID PRN PRN Reason: back pain Last Admin: 01/25/23 05:41 Dose: 800 mg Magnesium Hydroxide (Milk Of Magnesia 30 Ml Oral.Susp) 30 ml PO DAILY PRN PRN Reason: Constipation Multi-Ingred Cream/Lotion/Oil/Oint (Mineral Oil/Petrolatum,White 106 Gm Tube) 1 appl TOPICAL BID [facility]; Protocol Last Admin: 01/25/23 09:09 Dose: Not Given Nicotine (Nicotine 21 Mg Patch.Td24) 21 mg TRANSDERMA DAILY PRN PRN Reason: smoking cessation Last Admin: 01/15/23 16:06 Dose: 21 mg Nicotine Polacrilex (Nicotine Polacrilex 2 Mg Gum) 4 mg BUCCAL Q2H PRN PRN Reason: nicotine cravings Thiamine HCl (Thiamine Hcl 100 Mg Tablet) 100 mg PO DAILY [facility] Last Admin: 01/25/23 08:04 Dose: 100 mg Trazodone HCl (Trazodone Hcl 50 Mg Tablet) 50 mg PO BEDTIME MRX1 PRN PRN Reason: Insomnia Last Admin: 01/21/23 21:12 Dose: 50 mg Allergies Allergies Allergy/AdvReac Type Severity Reaction Status Date / Time morphine [MORPHINE] AdvReac Unknown NAUSEA Verified 12/10/22 19:56 Assessment & Plan Assessment & Plan (1) Schizoaffective disorder, bipolar type: Status: Acute Code(s): F25.0 - Schizoaffective disorder, bipolar type (2) Opioid use disorder: Status: Acute Code(s): F11.90 - Opioid use, unspecified, uncomplicated (3) Cocaine use disorder: Status: Acute Code(s): F14.10 - Cocaine abuse, uncomplicated Plan 12/24: attempt to give anti-psychotics. comfort meds for opioid and cocaine withdrawal. 12/25: refusing medications. period of agitation last night slamming doors and yelling (presumably @). continue current mgmt. 12/26: refusing meds. binging and purging. floridly psychotic. 12/27: had meds last night for sleep, per his request. schedule all haldol tonight with ativan and cogentin. a bit more interactive today, remains delayed and distracted. no binging/purgin behaviors or agitated behaviors described by RN report today. 12/28: refused meds last night. Today asks for meds for sx mgt- aggressive today- threw two coffee cups. Begin Depakote 250 mg bid. 12/29: got multiple meds last NOC and overnight per his request. slept 2 hours. refusing meds this morning. commitment paperwork completed. 3-day notice expires tomorrow. c/o opioid craving, asked for methadone. methadone 30 mg daily started today. 12/30: filed for commitment today. haldol and ativan per his request last night. appears in disbelief that he will not be discharged today. 12/31: demanding to leave, getting agitated, banging on nursing station, slamming doors in his room. given IMs x 2, haldol 10 ativan 2 benadryl 50 for first and thorazine 100 for second. 01/01: Remains unpredictable and irritable. Refusing scheduled medications. Section 7/ filed. 01/02: Continue current management. 01/03: refusing meds. irritable, labile. periods of agitation. continue current mgmt, awaiting hearing for . 01/04: refusing meds. irritable, labile. periods of agitation. continue current mgmt, though pt is refusing meds. 01/05: thought-blocked. denies mental illness or need for medications. offer medications. hearing tomorrow. 01/06: committed and ordered medications at hearing. 06/12/20 [facility] [place] DC summary reviewd, pt was discharged on VPA, zyprexa, haldol. 03/14/20 DC summary reviewed, pt discharged on zyprexa, haldol. pt unable to comprehend result, agitated not to be leaving today. 01/07: copy of court order on unit, will order meds accordingly today. no change in presentation. 01/08: Continue current regimen and plans 01/09: Continue current plans and regimen. Discontinue contingent IM Ativan if Depakote refused 01/10: Continue current regimen and plans. 01/11: DC VPA, start tegretol per pt preference. ativan 2 mg IM for refusal of tegretol. continue haldol PO/IM orders. improved from last week. less agitated, a bit more organized and engaging. 01/12: appears more disorganized again today, trouble engaging. refused PO meds last night but did take tegretol PO this morning. 01/13: continues disorganized, difficulty expressing himself. refusing PO meds since yesterday morning. slept 10 hours last night, however 01/14: intermittently taking meds PO versus IM. improved behavior from prior to med order, but remains floridly psychotic. continue current mgmt. 01/16/2023: No changes to current plan 01/17: more compliant with tegretol in recent days, still getting haldol IM. no change in presentation. continue current mgmt. 01/18: remains psychotic, labile. increase tegretol to 300 mg BID. 01/19: continues more aggressive and labile today. increase haldol to 10 BID with back-up IM of 7.5 mg. 01/20: more calm today,periods of agitation, however, in the past 24H. continue current mgmt. declines to change scheduled haldol to thorazine (proposed by in the hope he would in order to spare him the IMs). 01/21 continue tx. 01/22 writing for thorazine at bed- mr x1 and check ekg given other antipsycotics on board 01/23 agreed to ekg today, added 1pm dose of 5mg haldol 01/24: taking meds PO, still suffering from AH, possibly VH. perhaps trending more calm, but clearly still periods of agitation in the past several days. 01/25: labile, paranoid delusions. informed staff he experiences AH, mumbles recently. increase tegretol to 400 BID, make IR formulation as he has been chewing the pills. Reason for continued inpatient stay Substantial Risk for: harm to self, harm to others, inability to function and rapid decompensation Time Spent With Patient Time: Total time managing care of this patient today __25__ minutes.
[2023-01-25] MEDS: carBAMazepine 200 MG TABLET 400 MG PO (20:34)
[2023-01-25] MEDS: chlorproMAZINE HCl 25 MG TABLET 50 MG PO ×2 (20:34→21:21)
[2023-01-25] MEDS: Magnesium Hydrox/Alum Hydrox 30 ML ORAL.SUSP PO (20:54)
[2023-01-25 22:07] VITALS: BP 131/77; PULSE 80; RESP 18; TEMP 36.4; O2SAT 99
[2023-01-26] MEDS: Acetaminophen 325 MG TABLET 650 MG PO ×4 (03:56→21:10)
[2023-01-26] MEDS: Haloperidol Lactate Oral Conc 10 MG/5 ML ORAL.CONC PO ×2 (08:29→20:24)
[2023-01-26] MEDS: Benztropine Mesylate 1 MG TABLET PO ×2 (08:29→20:23)
[2023-01-26] MEDS: Folic Acid 1 MG TABLET PO (08:29)
[2023-01-26] MEDS: carBAMazepine 200 MG TABLET 400 MG PO ×2 (08:29→20:22)
[2023-01-26] MEDS: Ibuprofen 800 MG TABLET PO ×3 (08:29→20:23)
[2023-01-26] MEDS: Thiamine HCL 100 MG TABLET PO (08:30)
[2023-01-26 09:56] VITALS: BP 142/65; PULSE 78; RESP 20; TEMP 36.6; O2SAT 99
[2023-01-26 11:26] LABS: COVID-19 Test Negative (Negative); IDNOW Serial# BCCEAD1C
[2023-01-26] MEDS: cloNIDine HCL 0.1 MG TABLET PO ×3 (12:46→19:41)
[2023-01-26] MEDS: hydrOXYzine HCL 25 MG TABLET PO ×2 (12:46→18:18)
[2023-01-26] MEDS: Haloperidol Lactate Oral Conc 10 MG/5 ML ORAL.CONC 5 MG PO ×2 (12:46→17:20)
[2023-01-26] MEDS: chlorproMAZINE HCl 25 MG TABLET 50 MG PO ×3 (14:23→23:11)
--- NOTE | 2023-01-26 15:28 | P.PNPSI_ITS ---
Subjective Subjective Date of Service: 01/26/23 Reason For Visit: Psychosis Interim History: calm, cooperative. denies any problems, has no questions today. per staff, taking PRNs, compliant with meds. defecated in shower yesterday. pacing, angry, swearing @ staff. +RIS. slept last NOC. URI Sx. c/o foot and back pain. Mental Status Exam Mental Status Exam Narrative: adequately dressed and groomed. pacing the halls. cooperative. speech decr in amount, nml latency. seeimingly adequately organized for brief interaction. affect constricted, normo-intense, non-labile. no SI/HI/AVH expressed, but behaviors c/w at the least AH. Diagnostics Vital Signs (24Hr): Vital Signs - 24 hr 01/25/23 22:07 01/26/23 09:56 Temperature 97.5 F 97.9 F Pulse Rate 80 78 Respiratory Rate 18 20 Blood Pressure 131/77 142/65 H Pulse Oximetry 99 99 Oxygen Delivery Method Room Air Room Air BMI result Body Mass Index 26.7 Labs 12/23/22 09:53 12/23/22 09:53 Labs: Laboratory Results - last 48 hr 01/26/23 10:55 COVID-19 (LO) Negative COVID-19 Clin Com See Note Medications Medications Current Medications Acetaminophen (Acetaminophen 325 Mg Tablet) 650 mg PO Q6H PRN PRN Reason: Headache/Pain Mild Scale (1-3) Last Admin: 01/26/23 15:16 Dose: 650 mg Al Hydroxide/Mg Hydroxide (Magnesium Hydrox/Alum Hydrox 30 Ml Oral.Susp) 30 ml PO Q6H PRN PRN Reason: Heartburn/Nausea Last Admin: 01/25/23 20:54 Dose: 30 ml Benztropine Mesylate (Benztropine Mesylate 1 Mg Tablet) 1 mg PO BID [facility] Last Admin: 01/26/23 08:29 Dose: 1 mg Carbamazepine (Carbamazepine 200 Mg Tablet) 400 mg PO BID [facility] Last Admin: 01/26/23 08:29 Dose: 400 mg Chlorpromazine HCl (Chlorpromazine Hcl 25 Mg Tablet) 50 mg PO Q4H PRN PRN Reason: agitation Last Admin: 01/26/23 14:23 Dose: 50 mg Chlorpromazine HCl (Chlorpromazine Hcl 25 Mg Tablet) 50 mg PO BEDTIME [facility] Last Admin: 01/25/23 20:34 Dose: 50 mg Clonidine HCl (Clonidine Hcl 0.1 Mg Tablet) 0.1 mg PO Q2H PRN; Protocol PRN Reason: agitation/signs of opioid withdrawal Last Admin: 01/26/23 12:46 Dose: 0.1 mg Dicyclomine HCl (Dicyclomine Hcl 10 Mg Capsule) 10 mg PO QIDACHS PRN PRN Reason: cramps Last Admin: 01/06/23 09:51 Dose: 10 mg Folic Acid (Folic Acid 1 Mg Tablet) 1 mg PO DAILY [facility] Last Admin: 01/26/23 08:29 Dose: 1 mg Haloperidol Lactate (Haloperidol Lactate 5 Mg/Ml Vial) 7.5 mg IM BID PRN PRN Reason: if PO refused Last Admin: 01/20/23 09:23 Dose: 7.5 mg Haloperidol Lactate (Haloperidol Lactate Oral Conc 10 Mg/5 Ml Oral.Conc) 10 mg PO BID [facility] Last Admin: 01/26/23 08:29 Dose: 10 mg Haloperidol Lactate (Haloperidol Lactate Oral Conc 10 Mg/5 Ml Oral.Conc) 5 mg PO DAILY@1300 [facility] Last Admin: 01/26/23 12:46 Dose: 5 mg Hydroxyzine HCl (Hydroxyzine Hcl 25 Mg Tablet) 25 mg PO Q6H PRN PRN Reason: Anxiety Last Admin: 01/26/23 12:46 Dose: 25 mg Ibuprofen (Ibuprofen 800 Mg Tablet) 800 mg PO TID PRN PRN Reason: back pain Last Admin: 01/26/23 08:29 Dose: 800 mg Magnesium Hydroxide (Milk Of Magnesia 30 Ml Oral.Susp) 30 ml PO DAILY PRN PRN Reason: Constipation Multi-Ingred Cream/Lotion/Oil/Oint (Mineral Oil/Petrolatum,White 106 Gm Tube) 1 appl TOPICAL BID [facility]; Protocol Last Admin: 01/26/23 09:59 Dose: Not Given Nicotine (Nicotine 21 Mg Patch.Td24) 21 mg TRANSDERMA DAILY PRN PRN Reason: smoking cessation Last Admin: 01/15/23 16:06 Dose: 21 mg Nicotine Polacrilex (Nicotine Polacrilex 2 Mg Gum) 4 mg BUCCAL Q2H PRN PRN Reason: nicotine cravings Thiamine HCl (Thiamine Hcl 100 Mg Tablet) 100 mg PO DAILY [facility] Last Admin: 01/26/23 08:30 Dose: 100 mg Trazodone HCl (Trazodone Hcl 50 Mg Tablet) 50 mg PO BEDTIME MRX1 PRN PRN Reason: Insomnia Last Admin: 01/21/23 21:12 Dose: 50 mg Allergies Allergies Allergy/AdvReac Type Severity Reaction Status Date / Time morphine [MORPHINE] AdvReac Unknown NAUSEA Verified 12/10/22 19:56 Assessment & Plan Assessment & Plan (1) Schizoaffective disorder, bipolar type: Status: Acute Code(s): F25.0 - Schizoaffective disorder, bipolar type (2) Opioid use disorder: Status: Acute Code(s): F11.90 - Opioid use, unspecified, uncomplicated (3) Cocaine use disorder: Status: Acute Code(s): F14.10 - Cocaine abuse, uncomplicated Plan 12/24: attempt to give anti-psychotics. comfort meds for opioid and cocaine withdrawal. 12/25: refusing medications. period of agitation last night slamming doors and yelling (presumably @). continue current mgmt. 12/26: refusing meds. binging and purging. floridly psychotic. 12/27: had meds last night for sleep, per his request. schedule all haldol tonight with ativan and cogentin. a bit more interactive today, remains delayed and distracted. no binging/purgin behaviors or agitated behaviors described by RN report today. 12/28: refused meds last night. Today asks for meds for sx mgt- aggressive today- threw two coffee cups. Begin Depakote 250 mg bid. 12/29: got multiple meds last NOC and overnight per his request. slept 2 hours. refusing meds this morning. commitment paperwork completed. 3-day notice expires tomorrow. c/o opioid craving, asked for methadone. methadone 30 mg daily started today. 12/30: filed for commitment today. haldol and ativan per his request last night. appears in disbelief that he will not be discharged today. 12/31: demanding to leave, getting agitated, banging on nursing station, slamming doors in his room. given IMs x 2, haldol 10 ativan 2 benadryl 50 for first and thorazine 100 for second. 01/01: Remains unpredictable and irritable. Refusing scheduled medications. Section 7/8 filed. 01/02: Continue current management. 01/03: refusing meds. irritable, labile. periods of agitation. continue current mgmt, awaiting hearing for . 01/04: refusing meds. irritable, labile. periods of agitation. continue current mgmt, though pt is refusing meds. 01/05: thought-blocked. denies mental illness or need for medications. offer medications. hearing tomorrow. 01/06: committed and ordered medications at hearing. 06/12/20 [facility] [place] DC summary reviewd, pt was discharged on VPA, zyprexa, haldol. 03/14/20 DC summary reviewed, pt discharged on zyprexa, haldol. pt unable to comprehend result, agitated not to be leaving today. 01/07: copy of court order on unit, will order meds accordingly today. no change in presentation. 01/08: Continue current regimen and plans 01/09: Continue current plans and regimen. Discontinue contingent IM Ativan if Depakote refused 01/10: Continue current regimen and plans. 01/11: DC VPA, start tegretol per pt preference. ativan 2 mg IM for refusal of tegretol. continue haldol PO/IM orders. improved from last week. less agitated, a bit more organized and engaging. 01/12: appears more disorganized again today, trouble engaging. refused PO meds last night but did take tegretol PO this morning. 01/13: continues disorganized, difficulty expressing himself. refusing PO meds since yesterday morning. slept 10 hours last night, however 01/14: intermittently taking meds PO versus IM. improved behavior from prior to med order, but remains floridly psychotic. continue current mgmt. 01/16/2023: No changes to current plan 01/17: more compliant with tegretol in recent days, still getting haldol IM. no change in presentation. continue current mgmt. 01/18: remains psychotic, labile. increase tegretol to 300 mg BID. 01/19: continues more aggressive and labile today. increase haldol to 10 BID with back-up IM of 7.5 mg. 01/20: more calm today,periods of agitation, however, in the past 24H. continue current mgmt. declines to change scheduled haldol to thorazine (proposed by MD in the hope he would in order to spare him the IMs). 01/21 continue tx. 01/22 writing for thorazine at bed- mr x1 and check ekg given other antipsycotics on board 01/23 agreed to ekg today, added 1pm dose of 5mg haldol 01/24: taking meds PO, still suffering from AH, possibly VH. perhaps trending more calm, but clearly still periods of agitation in the past several days. 01/25: labile, paranoid delusions. informed staff he experiences AH, mumbles recently. increase tegretol to 400 BID, make IR formulation as he has been chewing the pills. 01/26: more calm today. continue current mgmt. Reason for continued inpatient stay Substantial Risk for: inability to function and rapid decompensation Time Spent With Patient Time: Total time managing care of this patient today ____ minutes.
[2023-01-26 18:00] VITALS: BP 117/56; PULSE 74; RESP 18; TEMP 36.6; O2SAT 98
[2023-01-26] MEDS: Dicyclomine HCl 10 MG CAPSULE PO (21:36)
[2023-01-26] MEDS: traZODone HCL 50 MG TABLET PO (23:13)
[2023-01-27] MEDS: Acetaminophen 325 MG TABLET 650 MG PO ×3 (06:27→18:10)
[2023-01-27 07:00] VITALS: BMI 28.6
[2023-01-27 09:40] VITALS: BP 121/56; PULSE 85; RESP 16; TEMP 36.5; O2SAT 97
[2023-01-27] MEDS: Haloperidol Lactate Oral Conc 10 MG/5 ML ORAL.CONC PO ×2 (09:42→21:40)
[2023-01-27] MEDS: carBAMazepine 200 MG TABLET 400 MG PO ×2 (09:42→21:39)
[2023-01-27] MEDS: Benztropine Mesylate 1 MG TABLET PO ×2 (09:42→21:40)
[2023-01-27] MEDS: Thiamine HCL 100 MG TABLET PO (09:42)
[2023-01-27] MEDS: Folic Acid 1 MG TABLET PO (09:42)
[2023-01-27] MEDS: Ibuprofen 800 MG TABLET PO ×2 (11:49→21:40)
--- NOTE | 2023-01-27 14:04 | HO.PSYCHPN ---
Subjective Subjective Date of Service: 01/27/23 Reason For Visit: Psychosis Interim History: seen up and about on the unit. only asking to be admitted to kitchen for snack, no other questions for MD. per staff, labile yesterday, minimally engaging. taking meds PO. pacing, +RIS. up and pacing until 0300. some staff concerned for akathisia. Mental Status Exam Mental Status Exam Narrative: adequately dressed and groomed. variably resting, walking the green. cooperative. speech decr in amount, nml latency. seemingly adequately organized for brief interaction. affect constricted, normo-intense, non-labile. no SI/HI/AVH expressed, but behaviors c/w at the least AH. Diagnostics Vital Signs (24Hr): Vital Signs - 24 hr 01/26/23 18:00 01/27/23 09:40 Temperature 98 F 97.7 F Pulse Rate 74 85 Respiratory Rate 18 16 Blood Pressure 117/56 L 121/56 L Pulse Oximetry 98 97 Oxygen Delivery Method Room Air Room Air BMI result Body Mass Index 26.7 Labs 12/23/22 09:53 12/23/22 09:53 Labs: Laboratory Results - last 48 hr 01/26/23 10:55 COVID-19 (LO) Negative COVID-19 Clin Com See Note Medications Medications Current Medications Acetaminophen (Acetaminophen 325 Mg Tablet) 650 mg PO Q6H PRN PRN Reason: Headache/Pain Mild Scale (1-3) Last Admin: 01/27/23 12:10 Dose: 650 mg Al Hydroxide/Mg Hydroxide (Magnesium Hydrox/Alum Hydrox 30 Ml Oral.Susp) 30 ml PO Q6H PRN PRN Reason: Heartburn/Nausea Last Admin: 01/25/23 20:54 Dose: 30 ml Benztropine Mesylate (Benztropine Mesylate 1 Mg Tablet) 1 mg PO BID [facility] Last Admin: 01/27/23 09:42 Dose: 1 mg Carbamazepine (Carbamazepine 200 Mg Tablet) 400 mg PO BID [facility] Last Admin: 01/27/23 09:42 Dose: 400 mg Chlorpromazine HCl (Chlorpromazine Hcl 25 Mg Tablet) 50 mg PO Q4H PRN PRN Reason: agitation Last Admin: 01/26/23 14:23 Dose: 50 mg Chlorpromazine HCl (Chlorpromazine Hcl 25 Mg Tablet) 50 mg PO BEDTIME [facility] Last Admin: 01/26/23 23:11 Dose: 50 mg Clonidine HCl (Clonidine Hcl 0.1 Mg Tablet) 0.1 mg PO Q2H PRN; Protocol PRN Reason: agitation/signs of opioid withdrawal Last Admin: 01/26/23 19:41 Dose: 0.1 mg Dicyclomine HCl (Dicyclomine Hcl 10 Mg Capsule) 10 mg PO QIDACHS PRN PRN Reason: cramps Last Admin: 01/26/23 21:36 Dose: 10 mg Folic Acid (Folic Acid 1 Mg Tablet) 1 mg PO DAILY [facility] Last Admin: 01/27/23 09:42 Dose: 1 mg Haloperidol Lactate (Haloperidol Lactate 5 Mg/Ml Vial) 7.5 mg IM BID PRN PRN Reason: if PO refused Last Admin: 01/20/23 09:23 Dose: 7.5 mg Haloperidol Lactate (Haloperidol Lactate Oral Conc 10 Mg/5 Ml Oral.Conc) 10 mg PO BID [facility] Last Admin: 01/27/23 09:42 Dose: 10 mg Haloperidol Lactate (Haloperidol Lactate Oral Conc 10 Mg/5 Ml Oral.Conc) 5 mg PO DAILY@1300 [facility] Last Admin: 01/26/23 12:46 Dose: 5 mg Hydroxyzine HCl (Hydroxyzine Hcl 25 Mg Tablet) 25 mg PO Q6H PRN PRN Reason: Anxiety Last Admin: 01/26/23 18:18 Dose: 25 mg Ibuprofen (Ibuprofen 800 Mg Tablet) 800 mg PO TID PRN PRN Reason: back pain Last Admin: 01/27/23 11:49 Dose: 800 mg Magnesium Hydroxide (Milk Of Magnesia 30 Ml Oral.Susp) 30 ml PO DAILY PRN PRN Reason: Constipation Multi-Ingred Cream/Lotion/Oil/Oint (Mineral Oil/Petrolatum,White 106 Gm Tube) 1 appl TOPICAL BID [facility]; Protocol Last Admin: 01/27/23 09:42 Dose: Not Given Nicotine (Nicotine 21 Mg Patch.Td24) 21 mg TRANSDERMA DAILY PRN PRN Reason: smoking cessation Last Admin: 01/15/23 16:06 Dose: 21 mg Nicotine Polacrilex (Nicotine Polacrilex 2 Mg Gum) 4 mg BUCCAL Q2H PRN PRN Reason: nicotine cravings Thiamine HCl (Thiamine Hcl 100 Mg Tablet) 100 mg PO DAILY [facility] Last Admin: 01/27/23 09:42 Dose: 100 mg Trazodone HCl (Trazodone Hcl 50 Mg Tablet) 50 mg PO BEDTIME MRX1 PRN PRN Reason: Insomnia Last Admin: 01/26/23 23:13 Dose: 50 mg Allergies Allergies Allergy/AdvReac Type Severity Reaction Status Date / Time morphine [MORPHINE] AdvReac Unknown NAUSEA Verified 12/10/22 19:56 Assessment & Plan Assessment & Plan (1) Schizoaffective disorder, bipolar type: Status: Acute Code(s): F25.0 - Schizoaffective disorder, bipolar type (2) Opioid use disorder: Status: Acute Code(s): F11.90 - Opioid use, unspecified, uncomplicated (3) Cocaine use disorder: Status: Acute Code(s): F14.10 - Cocaine abuse, uncomplicated Plan 12/24: attempt to give anti-psychotics. comfort meds for opioid and cocaine withdrawal. 12/25: refusing medications. period of agitation last night slamming doors and yelling (presumably @). continue current mgmt. 12/26: refusing meds. binging and purging. floridly psychotic. 12/27: had meds last night for sleep, per his request. schedule all haldol tonight with ativan and cogentin. a bit more interactive today, remains delayed and distracted. no binging/purgin behaviors or agitated behaviors described by RN report today. 12/28: refused meds last night. Today asks for meds for sx mgt- aggressive today-threw two coffee cups. Begin Depakote 250 mg bid. 12/29: got multiple meds last NOC and overnight per his request. slept 2 hours. refusing meds this morning. commitment paperwork completed. 3-day notice expires tomorrow. c/o opioid craving, asked for methadone. methadone 30 mg daily started today. 12/30: filed for commitment today. haldol and ativan per his request last night. appears in disbelief that he will not be discharged today. 12/31: demanding to leave, getting agitated, banging on nursing station, slamming doors in his room. given IMs x 2, haldol 10 ativan 2 benadryl 50 for first and thorazine 100 for second. 01/01: Remains unpredictable and irritable. Refusing scheduled medications. Section 7/8 filed. 01/02: Continue current management. 01/03: refusing meds. irritable, labile. periods of agitation. continue current mgmt, awaiting hearing for . 01/04: refusing meds. irritable, labile. periods of agitation. continue current mgmt, though pt is refusing meds. 01/05: thought-blocked. denies mental illness or need for medications. offer medications. hearing tomorrow. 01/06: committed and ordered medications at hearing. 06/12/20 [facility] [place] DC summary reviewd, pt was discharged on VPA, zyprexa, haldol. 03/14/20 DC summary reviewed, pt discharged on zyprexa, haldol. pt unable to comprehend result, agitated not to be leaving today. 01/07: copy of court order on unit, will order meds accordingly today. no change in presentation. 01/08: Continue current regimen and plans 01/09: Continue current plans and regimen. Discontinue contingent IM Ativan if Depakote refused 01/10: Continue current regimen and plans. 01/11: DC VPA, start tegretol per pt preference. ativan 2 mg IM for refusal of tegretol. continue haldol PO/IM orders. improved from last week. less agitated, a bit more organized and engaging. 01/12: appears more disorganized again today, trouble engaging. refused PO meds last night but did take tegretol PO this morning. 01/13: continues disorganized, difficulty expressing himself. refusing PO meds since yesterday morning. slept 10 hours last night, however 01/14: intermittently taking meds PO versus IM. improved behavior from prior to med order, but remains floridly psychotic. continue current mgmt. 01/16/2023: No changes to current plan 01/17: more compliant with tegretol in recent days, still getting haldol IM. no change in presentation. continue current mgmt. 01/18: remains psychotic, labile. increase tegretol to 300 mg BID. 01/19: continues more aggressive and labile today. increase haldol to 10 BID with back-up IM of 7.5 mg. 01/20: more calm today,periods of agitation, however, in the past 24H. continue current mgmt. declines to change scheduled haldol to thorazine (proposed by MD in the hope he would in order to spare him the IMs). 01/21 continue tx. 01/22 writing for thorazine at bed- mr x1 and check ekg given other antipsycotics on board 01/23 agreed to ekg today, added 1pm dose of 5mg haldol 01/24: taking meds PO, still suffering from AH, possibly VH. perhaps trending more calm, but clearly still periods of agitation in the past several days. 01/25: labile, paranoid delusions. informed staff he experiences AH, mumbles recently. increase tegretol to 400 BID, make IR formulation as he has been chewing the pills. 01/26: more calm today. continue current mgmt. 01/27: continues more calm. some staff concerned for akathisia due to pacing and number of PRNs taken, but appears to be doing less walking than he had been before, does not appear restless or uncomfortable. continue current mgmt, check tegretol level 2 weeks after dose change (02/08). Reason for continued inpatient stay Substantial Risk for: harm to self, harm to others, inability to function and rapid decompensation Time Spent With Patient Time: Total time managing care of this patient today __25__ minutes.
[2023-01-27] MEDS: Haloperidol Lactate Oral Conc 10 MG/5 ML ORAL.CONC 5 MG PO (14:34)
[2023-01-27] MEDS: chlorproMAZINE HCl 25 MG TABLET 50 MG PO ×3 (14:35→21:41)
[2023-01-27] MEDS: cloNIDine HCL 0.1 MG TABLET PO ×2 (16:26→21:39)
[2023-01-27 16:27] VITALS: BP 138/71; PULSE 87
[2023-01-27 17:19] VITALS: BP 119/70; PULSE 88; RESP 16; TEMP 36.6; O2SAT 98
[2023-01-27] MEDS: hydrOXYzine HCL 25 MG TABLET PO (19:03)
[2023-01-27 21:37] VITALS: BP 106/59; PULSE 89; RESP 18; TEMP 36.3; O2SAT 97
[2023-01-27] MEDS: traZODone HCL 50 MG TABLET PO (23:10)
[2023-01-28] MEDS: Acetaminophen 325 MG TABLET 650 MG PO ×4 (01:55→21:46)
[2023-01-28] MEDS: cloNIDine HCL 0.1 MG TABLET PO ×2 (02:21→18:55)
[2023-01-28] MEDS: chlorproMAZINE HCl 25 MG TABLET 50 MG PO ×4 (02:23→20:14)
[2023-01-28] MEDS: hydrOXYzine HCL 25 MG TABLET PO ×2 (04:27→18:04)
[2023-01-28] MEDS: Ibuprofen 800 MG TABLET PO ×2 (06:38→13:05)
[2023-01-28 08:00] VITALS: BP 105/57; PULSE 70; RESP 18; TEMP 36.6; O2SAT 97
[2023-01-28] MEDS: carBAMazepine 200 MG TABLET 400 MG PO ×2 (08:22→20:15)
[2023-01-28] MEDS: Thiamine HCL 100 MG TABLET PO (08:22)
[2023-01-28] MEDS: Benztropine Mesylate 1 MG TABLET PO ×2 (08:22→20:15)
[2023-01-28] MEDS: Haloperidol Lactate Oral Conc 10 MG/5 ML ORAL.CONC PO ×2 (08:22→20:16)
[2023-01-28] MEDS: Folic Acid 1 MG TABLET PO (08:22)
[2023-01-28] MEDS: Haloperidol Lactate Oral Conc 10 MG/5 ML ORAL.CONC 5 MG PO (13:05)
--- NOTE | 2023-01-28 14:04 | P.PNPSI_ITS ---
Subjective Subjective Date of Service: 01/28/23 Reason For Visit: Psychosis Interim History: calm, cooperative. no questions or complaints. per staff, taking medications. self-dialogue. taking a lot of PRNs. slept at least 4 hours overnight. Mental Status Exam Mental Status Exam Narrative: adequately dressed and groomed. resting, rousable. cooperative. speech decr in amount, nml latency. seemingly adequately organized for brief interaction. affect constricted, normo-intense, non-labile. no SI/HI/AVH expressed, but behaviors c/w at the least AH. Diagnostics Vital Signs (24Hr): Vital Signs - 24 hr 01/27/23 16:27 01/27/23 17:19 01/27/23 21:37 Temperature 97.8 F 97.4 F Pulse Rate 87 88 89 Respiratory Rate 16 18 Blood Pressure 138/71 119/70 106/59 L Pulse Oximetry 98 97 Oxygen Delivery Method Room Air 01/28/23 08:00 Temperature 97.9 F Pulse Rate 70 Respiratory Rate 18 Blood Pressure 105/57 L Pulse Oximetry 97 Oxygen Delivery Method Room Air BMI result Body Mass Index 28.6 Labs 12/23/22 09:53 12/23/22 09:53 Medications Medications Current Medications Acetaminophen (Acetaminophen 325 Mg Tablet) 650 mg PO Q6H PRN PRN Reason: Headache/Pain Mild Scale (1-3) Last Admin: 01/28/23 08:21 Dose: 650 mg Al Hydroxide/Mg Hydroxide (Magnesium Hydrox/Alum Hydrox 30 Ml Oral.Susp) 30 ml PO Q6H PRN PRN Reason: Heartburn/Nausea Last Admin: 01/25/23 20:54 Dose: 30 ml Benzocaine (Throat Lozenge, Medicated Lozenge) 1 lozenge MUCOUS MEM Q2H PRN PRN Reason: Sore Throat Benztropine Mesylate (Benztropine Mesylate 1 Mg Tablet) 1 mg PO BID [facility] Last Admin: 01/28/23 08:22 Dose: 1 mg Carbamazepine (Carbamazepine 200 Mg Tablet) 400 mg PO BID [facility] Last Admin: 01/28/23 08:22 Dose: 400 mg Chlorpromazine HCl (Chlorpromazine Hcl 25 Mg Tablet) 50 mg PO Q4H PRN PRN Reason: agitation Last Admin: 01/28/23 09:58 Dose: 50 mg Chlorpromazine HCl (Chlorpromazine Hcl 25 Mg Tablet) 50 mg PO BEDTIME [facility] Last Admin: 01/26/23 23:11 Dose: 50 mg Clonidine HCl (Clonidine Hcl 0.1 Mg Tablet) 0.1 mg PO Q2H PRN; Protocol PRN Reason: agitation/signs of opioid withdrawal Last Admin: 01/28/23 02:21 Dose: 0.1 mg Dicyclomine HCl (Dicyclomine Hcl 10 Mg Capsule) 10 mg PO QIDACHS PRN PRN Reason: cramps Last Admin: 01/26/23 21:36 Dose: 10 mg Folic Acid (Folic Acid 1 Mg Tablet) 1 mg PO DAILY [facility] Last Admin: 01/28/23 08:22 Dose: 1 mg Haloperidol Lactate (Haloperidol Lactate 5 Mg/Ml Vial) 7.5 mg IM BID PRN PRN Reason: if PO refused Last Admin: 01/20/23 09:23 Dose: 7.5 mg Haloperidol Lactate (Haloperidol Lactate Oral Conc 10 Mg/5 Ml Oral.Conc) 10 mg PO BID [facility] Last Admin: 01/28/23 08:22 Dose: 10 mg Haloperidol Lactate (Haloperidol Lactate Oral Conc 10 Mg/5 Ml Oral.Conc) 5 mg PO DAILY@1300 [facility] Last Admin: 01/28/23 13:05 Dose: 5 mg Hydroxyzine HCl (Hydroxyzine Hcl 25 Mg Tablet) 25 mg PO Q6H PRN PRN Reason: Anxiety Last Admin: 01/28/23 04:27 Dose: 25 mg Ibuprofen (Ibuprofen 800 Mg Tablet) 800 mg PO TID PRN PRN Reason: back pain Last Admin: 01/28/23 13:05 Dose: 800 mg Lorazepam (Lorazepam 2 Mg/Ml Vial) 2 mg IM BID PRN PRN Reason: refusal of tegretol Magnesium Hydroxide (Milk Of Magnesia 30 Ml Oral.Susp) 30 ml PO DAILY PRN PRN Reason: Constipation Multi-Ingred Cream/Lotion/Oil/Oint (Mineral Oil/Petrolatum,White 106 Gm Tube) 1 appl TOPICAL BID [facility]; Protocol Last Admin: 01/28/23 08:36 Dose: Not Given Nicotine (Nicotine 21 Mg Patch.Td24) 21 mg TRANSDERMA DAILY PRN PRN Reason: smoking cessation Last Admin: 01/15/23 16:06 Dose: 21 mg Nicotine Polacrilex (Nicotine Polacrilex 2 Mg Gum) 4 mg BUCCAL Q2H PRN PRN Reason: nicotine cravings Thiamine HCl (Thiamine Hcl 100 Mg Tablet) 100 mg PO DAILY [facility] Last Admin: 01/28/23 08:22 Dose: 100 mg Trazodone HCl (Trazodone Hcl 50 Mg Tablet) 50 mg PO BEDTIME MRX1 PRN PRN Reason: Insomnia Last Admin: 01/27/23 23:10 Dose: 50 mg Allergies Allergies Allergy/AdvReac Type Severity Reaction Status Date / Time morphine [MORPHINE] AdvReac Unknown NAUSEA Verified 12/10/22 19:56 Assessment & Plan Assessment & Plan (1) Schizoaffective disorder, bipolar type: Status: Acute Code(s): F25.0 - Schizoaffective disorder, bipolar type (2) Opioid use disorder: Status: Acute Code(s): F11.90 - Opioid use, unspecified, uncomplicated (3) Cocaine use disorder: Status: Acute Code(s): F14.10 - Cocaine abuse, uncomplicated Plan 12/24: attempt to give anti-psychotics. comfort meds for opioid and cocaine withdrawal. 12/25: refusing medications. period of agitation last night slamming doors and yelling (presumably @). continue current mgmt. 12/26: refusing meds. binging and purging. floridly psychotic. 12/27: had meds last night for sleep, per his request. schedule all haldol tonight with ativan and cogentin. a bit more interactive today, remains delayed and distracted. no binging/purgin behaviors or agitated behaviors described by RN report today. 12/28: refused meds last night. Today asks for meds for sx mgt- aggressive today- threw two coffee cups. Begin Depakote 250 mg bid. 12/29: got multiple meds last NOC and overnight per his request. slept 2 hours. refusing meds this morning. commitment paperwork completed. 3-day notice expires tomorrow. c/o opioid craving, asked for methadone. methadone 30 mg daily started today. 12/30: filed for commitment today. haldol and ativan per his request last night. appears in disbelief that he will not be discharged today. 12/31: demanding to leave, getting agitated, banging on nursing station, slamming doors in his room. given IMs x 2, haldol 10 ativan 2 benadryl 50 for first and thorazine 100 for second. 01/01: Remains unpredictable and irritable. Refusing scheduled medications. Section 7/8 filed. 01/02: Continue current management. 01/03: refusing meds. irritable, labile. periods of agitation. continue current mgmt, awaiting hearing for . 01/04: refusing meds. irritable, labile. periods of agitation. continue current mgmt, though pt is refusing meds. 01/05: thought-blocked. denies mental illness or need for medications. offer medications. hearing tomorrow. 01/06: committed and ordered medications at hearing. 06/12/20 [facility] DC summary reviewd, pt was discharged on VPA, zyprexa, haldol. 03/14/20 DC summary reviewed, pt discharged on zyprexa, haldol. pt unable to comprehend result, agitated not to be leaving today. 01/07: copy of court order on unit, will order meds accordingly today. no change in presentation. 01/08: Continue current regimen and plans 01/09: Continue current plans and regimen. Discontinue contingent IM Ativan if Depakote refused 01/10: Continue current regimen and plans. 01/11: DC VPA, start tegretol per pt preference. ativan 2 mg IM for refusal of tegretol. continue haldol PO/IM orders. improved from last week. less agitated, a bit more organized and engaging. 01/12: appears more disorganized again today, trouble engaging. refused PO meds last night but did take tegretol PO this morning. 01/13: continues disorganized, difficulty expressing himself. refusing PO meds since yesterday morning. slept 10 hours last night, however 01/14: intermittently taking meds PO versus IM. improved behavior from prior to med order, but remains floridly psychotic. continue current mgmt. 01/16/2023: No changes to current plan 01/17: more compliant with tegretol in recent days, still getting haldol IM. no change in presentation. continue current mgmt. 01/18: remains psychotic, labile. increase tegretol to 300 mg BID. 01/19: continues more aggressive and labile today. increase haldol to 10 BID with back-up IM of 7.5 mg. 01/20: more calm today,periods of agitation, however, in the past 24H. continue current mgmt. declines to change scheduled haldol to thorazine (proposed by MD in the hope he would in order to spare him the IMs). 01/21 continue tx. 01/22 writing for thorazine at bed- mr x1 and check ekg given other antipsycotics on board 01/23 agreed to ekg today, added 1pm dose of 5mg haldol 01/24: taking meds PO, still suffering from AH, possibly VH. perhaps trending more calm, but clearly still periods of agitation in the past several days. 01/25: labile, paranoid delusions. informed staff he experiences AH, mumbles recently. increase tegretol to 400 BID, make IR formulation as he has been chewing the pills. 01/26: more calm today. continue current mgmt. 01/27: continues more calm. some staff concerned for akathisia due to pacing and number of PRNs taken, but appears to be doing less walking than he had been before, does not appear restless or uncomfortable. continue current mgmt, check tegretol level 2 weeks after dose change (02/08). 01/28: stable presentation. intermittent sleep disturbance. continue current mgmt. Reason for continued inpatient stay Substantial Risk for: harm to self, harm to others, inability to function and rapid decompensation Time Spent With Patient Time: Total time managing care of this patient today ____ minutes.
[2023-01-28] MEDS: Ondansetron ODT 4 MG TAB.RAPDIS TRANSLINGU (14:44)
[2023-01-28 16:17] LABS: MANUAL DIFF FLAG NO
[2023-01-28 16:23] LABS: Basophils Absolute Auto 0.1 X10*3/uL (0.0-0.2); Basophils Percent Auto 0.8 % (0-2); Eosinophils Absolute Auto 0.8 X10*3/uL (0.0-0.4); Eosinophils Percent Auto 8.8 % (0-4); Hematocrit 38.1 % (42.0-52.0); Hemoglobin 12.7 g/dl (14.0-18.0); Imm Gran Pct Auto 1.1 % (0.0-0.4); Lymphocytes Absolute Auto 2.1 X10*3/uL (1.2-4.9); Lymphocytes Percent Auto 24.3 % (20-40); Mean Corpuscular HGB Conc 33.3 g/dl (31.0-36.0); Mean Corpuscular Hemoglobin 30.4 pg (27.0-33.0); Mean Corpuscular Volume 91.1 fL (80.0-98.0); Mean Platelet Volume 11.2 fL (9.4-12.4); Monocytes Absolute Auto 1.1 X10*3/uL (0.1-1.2); Monocytes Percent Auto 12.9 % (2-11); Neutrophils Absolute Auto 4.5 x10*3/uL (2.0-8.3); Neutrophils Percent Auto 52.1 % (45-73); Platelet Count 168 X10*3/uL (160-400); Red Blood Count 4.18 X10*6/uL (4.60-5.80); White Blood Count 8.7 X10*3/uL (4.8-10.8)
[2023-01-28 16:49] LABS: Alanine Aminotransferase 50 U/L (0-40); Albumin Level 4.1 g/dL (3.5-5.0); Alkaline Phosphatase 61 U/L (39-117); Anion Gap 14 (12-20); Aspartate Amino Transferase 24 U/L (5-37); Bilirubin Direct < 0.2 mg/dL (0.0-0.5); Bilirubin Total 0.2 mg/dL (0.0-1.0); Blood Urea Nitrogen 14 mg/dL (9-16); Calcium 8.9 mg/dL (8.4-10.2); Carbon Dioxide 25 mmol/L (22-29); Chloride 100 mmol/L (96-108); Creatinine Clr Calc Pharmacy 136.7; Estimated Glomerular Filt Rate > 60; Glucose Random 98 mg/dL (60-115); Potassium 4.9 mmol/L (3.3-5.1); Sodium 134 mmol/L (135-145); Total Protein 6.4 g/dL (6.5-8.0)
[2023-01-28 17:01] LABS: Carbamazepine Tegretol 10.3 mcg/mL (5.0-12.0)
[2023-01-28 18:53] VITALS: BP 129/60; PULSE 85
[2023-01-29] MEDS: chlorproMAZINE HCl 25 MG TABLET 50 MG PO ×4 (00:19→20:42)
[2023-01-29] MEDS: cloNIDine HCL 0.1 MG TABLET PO ×3 (00:20→23:04)
[2023-01-29] MEDS: traZODone HCL 50 MG TABLET PO ×2 (02:59→21:41)
[2023-01-29] MEDS: Acetaminophen 325 MG TABLET 650 MG PO ×3 (04:32→19:55)
[2023-01-29 08:30] VITALS: BP 127/61; PULSE 81; RESP 18; TEMP 36.7; O2SAT 98
[2023-01-29] MEDS: Folic Acid 1 MG TABLET PO (09:39)
[2023-01-29] MEDS: Benztropine Mesylate 1 MG TABLET PO ×2 (09:39→20:43)
[2023-01-29] MEDS: Thiamine HCL 100 MG TABLET PO (09:39)
[2023-01-29] MEDS: Haloperidol Lactate Oral Conc 10 MG/5 ML ORAL.CONC PO ×2 (09:39→20:43)
[2023-01-29] MEDS: carBAMazepine 200 MG TABLET 400 MG PO ×2 (09:39→20:42)
[2023-01-29] MEDS: Ibuprofen 800 MG TABLET PO ×3 (10:23→22:06)
[2023-01-29] MEDS: Haloperidol Lactate Oral Conc 10 MG/5 ML ORAL.CONC 5 MG PO (13:25)
[2023-01-29] MEDS: diphenhydrAMINE HCL 25 MG CAPSULE 50 MG PO ×2 (14:10→21:40)
[2023-01-29] MEDS: hydrOXYzine HCL 25 MG TABLET PO (14:30)
--- NOTE | 2023-01-29 18:31 | P.PNPSI_ITS ---
Subjective Subjective Date of Service: 01/29/23 Reason For Visit: Psychosis Interim History: calm, cooperative. per staff, taking medications. self-dialogue. Complaining of allergies and stuffiness. No SI. Appears internally preoccupied. Disheveled. Flat affect. Denies SI. Review of Systems Review of Systems unremarkable Yes all other systems are reviewed and are negative and Unobtainable due to mental status Mental Status Exam Mental Status Exam Narrative: adequately dressed and groomed. resting, rousable. cooperative. speech decr in amount, nml latency. seemingly adequately organized for brief interaction. affect constricted, normo-intense, non-labile. no SI/HI/AVH expressed, but behaviors c/w at the least AH. Patient Appearance: Inappropriate Patient Orientation: Person, Place, Time and Situation Level of Consciousness: Awake and Restless Patient Behavior: Restless, Distractible, Good Eye Contact and Impulsive Behavior Comments: can be irritable in pm Mood Description: Calm (in ams ) Affect Description: Labile Patient Cognition Impaired: Yes Ability to Follow Directions: Fair Speech Pattern: Clear Memory Description: Remote Impaired Diagnostics Vital Signs (24Hr): Vital Signs - 24 hr 01/28/23 18:53 01/29/23 08:30 Temperature 98.1 F Pulse Rate 85 81 Respiratory Rate 18 Blood Pressure 129/60 127/61 Pulse Oximetry 98 Oxygen Delivery Method Room Air BMI result Body Mass Index 28.6 Labs 01/28/23 15:41 01/28/23 15:41 Labs: Laboratory Results - last 48 hr 01/28/23 15:41 WBC 8.7 RBC 4.18 L Hgb 12.7 L Hct 38.1 L MCV 91.1 MCH 30.4 MCHC 33.3 RDW 12.0 Plt Count 168 D MPV 11.2 Immature Gran % (Auto) 1.1 H Neut % (Auto) 52.1 Lymph % (Auto) 24.3 [place] % (Auto) 12.9 H Eos % (Auto) 8.8 H Baso % (Auto) 0.8 Lymph # (Auto) 2.1 [place] # (Auto) 1.1 Eos # (Auto) 0.8 H Baso # (Auto) 0.1 Abs Immat Gran (auto) 0.10 H Absolute Neuts (auto) 4.5 Absolute Nucleated RBC 0.000 Nucleated RBC % (auto) 0.0 Sodium 134 L Potassium 4.9 Chloride 100 Carbon Dioxide 25 Anion Gap 14 BUN 14 Creatinine 0.91 Estim Creat Clear Calc 136.7 Estimated GFR > 60 Random Glucose 98 Calcium 8.9 D Total Bilirubin 0.2 Direct Bilirubin < 0.2 AST 24 ALT 50 H Alkaline Phosphatase 61 Total Protein 6.4 L Albumin 4.1 Carbamazepine 10.3 Medications Medications Current Medications Acetaminophen (Acetaminophen 325 Mg Tablet) 650 mg PO Q6H PRN PRN Reason: Headache/Pain Mild Scale (1-3) Last Admin: 01/29/23 13:24 Dose: 650 mg Al Hydroxide/Mg Hydroxide (Magnesium Hydrox/Alum Hydrox 30 Ml Oral.Susp) 30 ml PO Q6H PRN PRN Reason: Heartburn/Nausea Last Admin: 01/25/23 20:54 Dose: 30 ml Benzocaine (Throat Lozenge, Medicated Lozenge) 1 lozenge MUCOUS MEM Q2H PRN PRN Reason: Sore Throat Benztropine Mesylate (Benztropine Mesylate 1 Mg Tablet) 1 mg PO BID [facility] Last Admin: 01/29/23 09:39 Dose: 1 mg Carbamazepine (Carbamazepine 200 Mg Tablet) 400 mg PO BID [facility] Last Admin: 01/29/23 09:39 Dose: 400 mg Chlorpromazine HCl (Chlorpromazine Hcl 25 Mg Tablet) 50 mg PO Q4H PRN PRN Reason: agitation Last Admin: 01/29/23 17:12 Dose: 50 mg Chlorpromazine HCl (Chlorpromazine Hcl 25 Mg Tablet) 50 mg PO BEDTIME [facility] Last Admin: 01/28/23 20:14 Dose: 50 mg Clonidine HCl (Clonidine Hcl 0.1 Mg Tablet) 0.1 mg PO Q2H PRN; Protocol PRN Reason: agitation/signs of opioid withdrawal Last Admin: 01/29/23 00:20 Dose: 0.1 mg Dicyclomine HCl (Dicyclomine Hcl 10 Mg Capsule) 10 mg PO QIDACHS PRN PRN Reason: cramps Last Admin: 01/26/23 21:36 Dose: 10 mg Diphenhydramine HCl (Diphenhydramine Hcl 25 Mg Capsule) 50 mg PO Q6H PRN PRN Reason: Allergic Symptoms Last Admin: 01/29/23 14:10 Dose: 50 mg Folic Acid (Folic Acid 1 Mg Tablet) 1 mg PO DAILY [facility] Last Admin: 01/29/23 09:39 Dose: 1 mg Haloperidol Lactate (Haloperidol Lactate 5 Mg/Ml Vial) 7.5 mg IM BID PRN PRN Reason: if PO refused Last Admin: 01/20/23 09:23 Dose: 7.5 mg Haloperidol Lactate (Haloperidol Lactate Oral Conc 10 Mg/5 Ml Oral.Conc) 10 mg PO BID [facility] Last Admin: 01/29/23 09:39 Dose: 10 mg Haloperidol Lactate (Haloperidol Lactate Oral Conc 10 Mg/5 Ml Oral.Conc) 5 mg PO DAILY@1300 [facility] Last Admin: 01/29/23 13:25 Dose: 5 mg Hydroxyzine HCl (Hydroxyzine Hcl 25 Mg Tablet) 25 mg PO Q6H PRN PRN Reason: Anxiety Last Admin: 01/29/23 14:30 Dose: 25 mg Ibuprofen (Ibuprofen 800 Mg Tablet) 800 mg PO TID PRN PRN Reason: back pain Last Admin: 01/29/23 16:26 Dose: 800 mg Lorazepam (Lorazepam 2 Mg/Ml Vial) 2 mg IM BID PRN PRN Reason: refusal of tegretol Magnesium Hydroxide (Milk Of Magnesia 30 Ml Oral.Susp) 30 ml PO DAILY PRN PRN Reason: Constipation Multi-Ingred Cream/Lotion/Oil/Oint (Mineral Oil/Petrolatum,White 106 Gm Tube) 1 appl TOPICAL BID [facility]; Protocol Last Admin: 01/29/23 09:41 Dose: Not Given Nicotine (Nicotine 21 Mg Patch.Td24) 21 mg TRANSDERMA DAILY PRN PRN Reason: smoking cessation Last Admin: 01/15/23 16:06 Dose: 21 mg Nicotine Polacrilex (Nicotine Polacrilex 2 Mg Gum) 4 mg BUCCAL Q2H PRN PRN Reason: nicotine cravings Ondansetron HCl (Ondansetron Odt 4 Mg Tab.Rapdis) 4 mg TRANSLINGU Q6H PRN PRN Reason: Nausea and Vomiting Last Admin: 01/28/23 14:44 Dose: 4 mg Thiamine HCl (Thiamine Hcl 100 Mg Tablet) 100 mg PO DAILY [facility] Last Admin: 01/29/23 09:39 Dose: 100 mg Trazodone HCl (Trazodone Hcl 50 Mg Tablet) 50 mg PO BEDTIME MRX1 PRN PRN Reason: Insomnia Last Admin: 01/29/23 02:59 Dose: 50 mg Allergies Allergies Allergy/AdvReac Type Severity Reaction Status Date / Time morphine [MORPHINE] AdvReac Unknown NAUSEA Verified 12/10/22 19:56 Assessment & Plan Assessment & Plan (1) Schizoaffective disorder, bipolar type: Status: Acute Code(s): F25.0 - Schizoaffective disorder, bipolar type (2) Opioid use disorder: Status: Acute Code(s): F11.90 - Opioid use, unspecified, uncomplicated (3) Cocaine use disorder: Status: Acute Code(s): F14.10 - Cocaine abuse, uncomplicated Plan 12/24: attempt to give anti-psychotics. comfort meds for opioid and cocaine withdrawal. 12/25: refusing medications. period of agitation last night slamming doors and yelling (presumably @). continue current mgmt. 12/26: refusing meds. binging and purging. floridly psychotic. 12/27: had meds last night for sleep, per his request. schedule all haldol tonight with ativan and cogentin. a bit more interactive today, remains delayed and distracted. no binging/purgin behaviors or agitated behaviors described by RN report today. 12/28: refused meds last night. Today asks for meds for sx mgt- aggressive today- threw two coffee cups. Begin Depakote 250 mg bid. 12/29: got multiple meds last NOC and overnight per his request. slept 2 hours. refusing meds this morning. commitment paperwork completed. 3-day notice expires tomorrow. c/o opioid craving, asked for methadone. methadone 30 mg daily started today. 12/30: filed for commitment today. haldol and ativan per his request last night. appears in disbelief that he will not be discharged today. 12/31: demanding to leave, getting agitated, banging on nursing station, slamming doors in his room. given IMs x 2, haldol 10 ativan 2 benadryl 50 for first and thorazine 100 for second. 01/01: Remains unpredictable and irritable. Refusing scheduled medications. Section 7/ filed. 01/02: Continue current management. 01/03: refusing meds. irritable, labile. periods of agitation. continue current mgmt, awaiting hearing for . 01/04: refusing meds. irritable, labile. periods of agitation. continue current mgmt, though pt is refusing meds. 01/05: thought-blocked. denies mental illness or need for medications. offer medications. hearing tomorrow. 01/06: committed and ordered medications at hearing. 06/12/20 [facility] DC summary reviewd, pt was discharged on VPA, zyprexa, haldol. 03/14/20 DC summary reviewed, pt discharged on zyprexa, haldol. pt unable to comprehend result, agitated not to be leaving today. 01/07: copy of court order on unit, will order meds accordingly today. no change in presentation. 01/08: Continue current regimen and plans 01/09: Continue current plans and regimen. Discontinue contingent IM Ativan if Depakote refused 01/10: Continue current regimen and plans. 01/11: DC VPA, start tegretol per pt preference. ativan 2 mg IM for refusal of tegretol. continue haldol PO/IM orders. improved from last week. less agitated, a bit more organized and engaging. 01/12: appears more disorganized again today, trouble engaging. refused PO meds last night but did take tegretol PO this morning. 01/13: continues disorganized, difficulty expressing himself. refusing PO meds since yesterday morning. slept 10 hours last night, however 01/14: intermittently taking meds PO versus IM. improved behavior from prior to med order, but remains floridly psychotic. continue current mgmt. 01/16/2023: No changes to current plan 01/17: more compliant with tegretol in recent days, still getting haldol IM. no change in presentation. continue current mgmt. 01/18: remains psychotic, labile. increase tegretol to 300 mg BID. 01/19: continues more aggressive and labile today. increase haldol to 10 BID with back-up IM of 7.5 mg. 01/20: more calm today,periods of agitation, however, in the past 24H. continue current mgmt. declines to change scheduled haldol to thorazine (proposed by in the hope he would in order to spare him the IMs). 01/21 continue tx. 01/22 writing for thorazine at bed- mr x1 and check ekg given other antipsycotics on board 01/23 agreed to ekg today, added 1pm dose of 5mg haldol 01/24: taking meds PO, still suffering from AH, possibly VH. perhaps trending more calm, but clearly still periods of agitation in the past several days. 01/25: labile, paranoid delusions. informed staff he experiences AH, mumbles recently. increase tegretol to 400 BID, make IR formulation as he has been chewing the pills. 01/26: more calm today. continue current mgmt. 01/27: continues more calm. some staff concerned for akathisia due to pacing and number of PRNs taken, but appears to be doing less walking than he had been before, does not appear restless or uncomfortable. continue current mgmt, check tegretol level 2 weeks after dose change (02/08). 01/28: stable presentation. intermittent sleep disturbance. continue current mgmt. 01/29: Continue current management. Reason for continued inpatient stay Substantial Risk for: inability to function and rapid decompensation Time Spent With Patient Time: Total time managing care of this patient today ____ minutes.
[2023-01-29] MEDS: Throat Lozenge, Medicated LOZENGE 1 LOZENGE MUCOUS MEM (19:25)
[2023-01-29 20:10] VITALS: BP 122/69; PULSE 79; RESP 16; TEMP 36.8; O2SAT 98
[2023-01-29] MEDS: Magnesium Hydrox/Alum Hydrox 30 ML ORAL.SUSP PO (22:57)
[2023-01-30] MEDS: chlorproMAZINE HCl 25 MG TABLET 50 MG PO ×5 (00:09→21:22)
[2023-01-30 08:20] VITALS: BP 129/64; PULSE 93; RESP 18; TEMP 36.2; O2SAT 96
[2023-01-30] MEDS: Acetaminophen 325 MG TABLET 650 MG PO ×3 (08:41→21:57)
[2023-01-30] MEDS: Haloperidol Lactate Oral Conc 10 MG/5 ML ORAL.CONC PO ×2 (08:42→19:57)
[2023-01-30] MEDS: Folic Acid 1 MG TABLET PO (08:42)
[2023-01-30] MEDS: Thiamine HCL 100 MG TABLET PO (08:42)
[2023-01-30] MEDS: carBAMazepine 200 MG TABLET 400 MG PO ×2 (08:42→19:57)
[2023-01-30] MEDS: Benztropine Mesylate 1 MG TABLET PO ×2 (08:42→20:00)
[2023-01-30] MEDS: Haloperidol Lactate Oral Conc 10 MG/5 ML ORAL.CONC 5 MG PO (12:35)
[2023-01-30] MEDS: hydrOXYzine HCL 25 MG TABLET PO ×2 (12:35→23:08)
[2023-01-30] MEDS: Ibuprofen 800 MG TABLET PO ×2 (13:13→19:58)
--- NOTE | 2023-01-30 13:21 | P.PNPSI_ITS ---
Subjective Subjective Date of Service: 01/30/23 Reason For Visit: Psychosis Interim History: calm, cooperative. per staff, taking medications. self-dialogue. Benadryl helped with allergies and stuffiness. No SI. Appears internally preoccupied. Disheveled. Flat affect. Denies SI. Review of Systems Review of Systems unremarkable Yes all other systems are reviewed and are negative and Unobtainable due to mental status Mental Status Exam Mental Status Exam Narrative: adequately dressed and groomed. resting, rousable. cooperative. speech decr in amount, nml latency. seemingly adequately organized for brief interaction. affect constricted, normo-intense, non-labile. no SI/HI/AVH expressed, but behaviors c/w at the least AH. Patient Appearance: Inappropriate Patient Orientation: Person, Place, Time and Situation Level of Consciousness: Awake and Restless Patient Behavior: Restless, Distractible, Good Eye Contact and Impulsive Behavior Comments: can be irritable in pm Mood Description: Calm (in ams ) Affect Description: Labile Patient Cognition Impaired: Yes Ability to Follow Directions: Fair Speech Pattern: Clear Memory Description: Remote Impaired Diagnostics Vital Signs (24Hr): Vital Signs - 24 hr 01/29/23 20:10 01/30/23 08:20 Temperature 98.3 F 97.2 F Pulse Rate 79 93 Respiratory Rate 16 18 Blood Pressure 122/69 129/64 Pulse Oximetry 98 96 Oxygen Delivery Method Room Air Room Air BMI result Body Mass Index 28.6 Labs 01/28/23 15:41 01/28/23 15:41 Labs: Laboratory Results - last 48 hr 01/28/23 15:41 WBC 8.7 RBC 4.18 L Hgb 12.7 L Hct 38.1 L MCV 91.1 MCH 30.4 MCHC 33.3 RDW 12.0 Plt Count 168 D MPV 11.2 Immature Gran % (Auto) 1.1 H Neut % (Auto) 52.1 Lymph % (Auto) 24.3 Taliaferro % (Auto) 12.9 H Eos % (Auto) 8.8 H Baso % (Auto) 0.8 Lymph # (Auto) 2.1 Tal[place]ferro # (Auto) 1.1 Eos # (Auto) 0.8 H Baso # (Auto) 0.1 Abs Immat Gran (auto) 0.10 H Absolute Neuts (auto) 4.5 Absolute Nucleated RBC 0.000 Nucleated RBC % (auto) 0.0 Sodium 134 L Potassium 4.9 Chloride 100 Carbon Dioxide 25 Anion Gap 14 BUN 14 Creatinine 0.91 Estim Creat Clear Calc 136.7 Estimated GFR > 60 Random Glucose 98 Calcium 8.9 D Total Bilirubin 0.2 Direct Bilirubin < 0.2 AST 24 ALT 50 H Alkaline Phosphatase 61 Total Protein 6.4 L Albumin 4.1 Carbamazepine 10.3 Medications Medications Current Medications Acetaminophen (Acetaminophen 325 Mg Tablet) 650 mg PO Q6H PRN PRN Reason: Headache/Pain Mild Scale (1-3) Last Admin: 01/30/23 08:41 Dose: 650 mg Al Hydroxide/Mg Hydroxide (Magnesium Hydrox/Alum Hydrox 30 Ml Oral.Susp) 30 ml PO Q6H PRN PRN Reason: Heartburn/Nausea Last Admin: 01/29/23 22:57 Dose: 30 ml Benzocaine (Throat Lozenge, Medicated Lozenge) 1 lozenge MUCOUS MEM Q2H PRN PRN Reason: Sore Throat Last Admin: 01/29/23 19:25 Dose: 1 lozenge Benztropine Mesylate (Benztropine Mesylate 1 Mg Tablet) 1 mg PO BID [facility] Last Admin: 01/30/23 08:42 Dose: 1 mg Carbamazepine (Carbamazepine 200 Mg Tablet) 400 mg PO BID [facility] Last Admin: 01/30/23 08:42 Dose: 400 mg Chlorpromazine HCl (Chlorpromazine Hcl 25 Mg Tablet) 50 mg PO Q4H PRN PRN Reason: agitation Last Admin: 01/30/23 00:09 Dose: 50 mg Chlorpromazine HCl (Chlorpromazine Hcl 25 Mg Tablet) 50 mg PO BEDTIME [facility] Last Admin: 01/29/23 20:42 Dose: 50 mg Clonidine HCl (Clonidine Hcl 0.1 Mg Tablet) 0.1 mg PO Q2H PRN; Protocol PRN Reason: agitation/signs of opioid withdrawal Last Admin: 01/29/23 23:04 Dose: 0.1 mg Dicyclomine HCl (Dicyclomine Hcl 10 Mg Capsule) 10 mg PO QIDACHS PRN PRN Reason: cramps Last Admin: 01/26/23 21:36 Dose: 10 mg Diphenhydramine HCl (Diphenhydramine Hcl 25 Mg Capsule) 50 mg PO Q6H PRN PRN Reason: Allergic Symptoms Last Admin: 01/29/23 21:40 Dose: 50 mg Folic Acid (Folic Acid 1 Mg Tablet) 1 mg PO DAILY [facility] Last Admin: 01/30/23 08:42 Dose: 1 mg Haloperidol Lactate (Haloperidol Lactate 5 Mg/Ml Vial) 7.5 mg IM BID PRN PRN Reason: if PO refused Last Admin: 01/20/23 09:23 Dose: 7.5 mg Haloperidol Lactate (Haloperidol Lactate Oral Conc 10 Mg/5 Ml Oral.Conc) 10 mg PO BID [facility] Last Admin: 01/30/23 08:42 Dose: 10 mg Haloperidol Lactate (Haloperidol Lactate Oral Conc 10 Mg/5 Ml Oral.Conc) 5 mg PO DAILY@1300 [facility] Last Admin: 01/30/23 12:35 Dose: 5 mg Hydroxyzine HCl (Hydroxyzine Hcl 25 Mg Tablet) 25 mg PO Q6H PRN PRN Reason: Anxiety Last Admin: 01/30/23 12:35 Dose: 25 mg Ibuprofen (Ibuprofen 800 Mg Tablet) 800 mg PO TID PRN PRN Reason: back pain Last Admin: 01/30/23 13:13 Dose: 800 mg Lorazepam (Lorazepam 2 Mg/Ml Vial) 2 mg IM BID PRN PRN Reason: refusal of tegretol Magnesium Hydroxide (Milk Of Magnesia 30 Ml Oral.Susp) 30 ml PO DAILY PRN PRN Reason: Constipation Multi-Ingred Cream/Lotion/Oil/Oint (Mineral Oil/Petrolatum,White 106 Gm Tube) 1 appl TOPICAL BID [facility]; Protocol Last Admin: 01/30/23 09:06 Dose: Not Given Nicotine (Nicotine 21 Mg Patch.Td24) 21 mg TRANSDERMA DAILY PRN PRN Reason: smoking cessation Last Admin: 01/15/23 16:06 Dose: 21 mg Nicotine Polacrilex (Nicotine Polacrilex 2 Mg Gum) 4 mg BUCCAL Q2H PRN PRN Reason: nicotine cravings Ondansetron HCl (Ondansetron Odt 4 Mg Tab.Rapdis) 4 mg TRANSLINGU Q6H PRN PRN Reason: Nausea and Vomiting Last Admin: 01/28/23 14:44 Dose: 4 mg Thiamine HCl (Thiamine Hcl 100 Mg Tablet) 100 mg PO DAILY [facility] Last Admin: 01/30/23 08:42 Dose: 100 mg Trazodone HCl (Trazodone Hcl 50 Mg Tablet) 50 mg PO BEDTIME MRX1 PRN PRN Reason: Insomnia Last Admin: 01/29/23 21:41 Dose: 50 mg Allergies Allergies Allergy/AdvReac Type Severity Reaction Status Date / Time morphine [MORPHINE] AdvReac Unknown NAUSEA Verified 12/10/22 19:56 Assessment & Plan Assessment & Plan (1) Schizoaffective disorder, bipolar type: Status: Acute Code(s): F25.0 - Schizoaffective disorder, bipolar type (2) Opioid use disorder: Status: Acute Code(s): F11.90 - Opioid use, unspecified, uncomplicated (3) Cocaine use disorder: Status: Acute Code(s): F14.10 - Cocaine abuse, uncomplicated Plan 12/24: attempt to give anti-psychotics. comfort meds for opioid and cocaine withdrawal. 12/25: refusing medications. period of agitation last night slamming doors and yelling (presumably @AH). continue current mgmt. 12/26: refusing meds. binging and purging. floridly psychotic. 12/27: had meds last night for sleep, per his request. schedule all haldol tonight with ativan and cogentin. a bit more interactive today, remains delayed and distracted. no binging/purgin behaviors or agitated behaviors described by RN report today. 12/28: refused meds last night. Today asks for meds for sx mgt- aggressive today- threw two coffee cups. Begin Depakote 250 mg bid. 12/29: got multiple meds last NOC and overnight per his request. slept 2 hours. refusing meds this morning. commitment paperwork completed. 3-day notice expires tomorrow. c/o opioid craving, asked for methadone. methadone 30 mg daily started today. 12/30: filed for commitment today. haldol and ativan per his request last night. appears in disbelief that he will not be discharged today. 12/31: demanding to leave, getting agitated, banging on nursing station, slamming doors in his room. given IMs x 2, haldol 10 ativan 2 benadryl 50 for first and thorazine 100 for second. 01/01: Remains unpredictable and irritable. Refusing scheduled medications. Section 7/ filed. 01/02: Continue current management. 01/03: refusing meds. irritable, labile. periods of agitation. continue current mgmt, awaiting hearing for . 01/04: refusing meds. irritable, labile. periods of agitation. continue current mgmt, though pt is refusing meds. 01/05: thought-blocked. denies mental illness or need for medications. offer medications. hearing tomorrow. 01/06: committed and ordered medications at hearing. 06/12/20 [facility] DC summary reviewd, pt was discharged on VPA, zyprexa, haldol. 03/14/20 DC summary reviewed, pt discharged on zyprexa, haldol. pt unable to comprehend result, agitated not to be leaving today. 01/07: copy of court order on unit, will order meds accordingly today. no change in presentation. 01/08: Continue current regimen and plans 01/09: Continue current plans and regimen. Discontinue contingent IM Ativan if Depakote refused 01/10: Continue current regimen and plans. 01/11: DC VPA, start tegretol per pt preference. ativan 2 mg IM for refusal of tegretol. continue haldol PO/IM orders. improved from last week. less agitated, a bit more organized and engaging. 01/12: appears more disorganized again today, trouble engaging. refused PO meds last night but did take tegretol PO this morning. 01/13: continues disorganized, difficulty expressing himself. refusing PO meds since yesterday morning. slept 10 hours last night, however 01/14: intermittently taking meds PO versus IM. improved behavior from prior to med order, but remains floridly psychotic. continue current mgmt. 01/16/2023: No changes to current plan 01/17: more compliant with tegretol in recent days, still getting haldol IM. no change in presentation. continue current mgmt. 01/18: remains psychotic, labile. increase tegretol to 300 mg BID. 01/19: continues more aggressive and labile today. increase haldol to 10 BID with back-up IM of 7.5 mg. 01/20: more calm today,periods of agitation, however, in the past 24H. continue current mgmt. declines to change scheduled haldol to thorazine (proposed by in the hope he would in order to spare him the IMs). 01/21 continue tx. 01/22 writing for thorazine at bed- mr x1 and check ekg given other antipsycotics on board 01/23 agreed to ekg today, added 1pm dose of 5mg haldol 01/24: taking meds PO, still suffering from AH, possibly VH. perhaps trending more calm, but clearly still periods of agitation in the past several days. 01/25: labile, paranoid delusions. informed staff he experiences AH, mumbles recently. increase tegretol to 400 BID, make IR formulation as he has been chewing the pills. 01/26: more calm today. continue current mgmt. 01/27: continues more calm. some staff concerned for akathisia due to pacing and number of PRNs taken, but appears to be doing less walking than he had been before, does not appear restless or uncomfortable. continue current mgmt, check tegretol level 2 weeks after dose change (02/08). 01/28: stable presentation. intermittent sleep disturbance. continue current mgmt. 01/29: Continue current management. Benadryl for allergies 01/30: Continue current plan of care. Reason for continued inpatient stay Substantial Risk for: inability to function and rapid decompensation Time Spent With Patient Time: Total time managing care of this patient today ____ minutes.
[2023-01-30] MEDS: diphenhydrAMINE HCL 25 MG CAPSULE 50 MG PO (21:22)
[2023-01-30 21:45] VITALS: BP 115/59; PULSE 77; RESP 16; TEMP 36.6; O2SAT 98
[2023-01-30] MEDS: traZODone HCL 50 MG TABLET PO ×2 (22:20→23:08)
[2023-01-30] MEDS: cloNIDine HCL 0.1 MG TABLET PO (23:57)
[2023-01-31] MEDS: chlorproMAZINE HCl 25 MG TABLET 50 MG PO ×4 (03:29→22:53)
[2023-01-31 08:00] VITALS: BP 111/52; PULSE 64; RESP 16; TEMP 36.2; O2SAT 98
[2023-01-31] MEDS: Haloperidol Lactate Oral Conc 10 MG/5 ML ORAL.CONC PO ×2 (08:43→20:31)
[2023-01-31] MEDS: Acetaminophen 325 MG TABLET 650 MG PO ×3 (08:44→21:58)
[2023-01-31] MEDS: Benztropine Mesylate 1 MG TABLET PO ×2 (08:44→20:32)
[2023-01-31] MEDS: Thiamine HCL 100 MG TABLET PO (08:44)
[2023-01-31] MEDS: Folic Acid 1 MG TABLET PO (08:44)
[2023-01-31] MEDS: carBAMazepine 200 MG TABLET 400 MG PO ×2 (08:45→20:31)
[2023-01-31] MEDS: Haloperidol Lactate Oral Conc 10 MG/5 ML ORAL.CONC 5 MG PO (12:47)
[2023-01-31] MEDS: Ibuprofen 800 MG TABLET PO ×2 (13:10→18:57)
[2023-01-31] MEDS: hydrOXYzine HCL 25 MG TABLET PO ×2 (14:04→20:12)
--- NOTE | 2023-01-31 14:09 | HO.PSYCHPN ---
Subjective Subjective Date of Service: 01/31/23 Reason For Visit: Psychosis Interim History: resting, then up and about appearing tired. per staff, pacing, self-dialoguing, asking for lots of PRNs, taking meds PO. visit with dad went well. up multiple times in the NOC. chewing medications. poor sleep. Mental Status Exam Mental Status Exam Narrative: adequately dressed and groomed. resting, rousable. cooperative. speech decr in amount, nml latency. seemingly adequately organized for brief interaction. affect constricted, normo-intense, non-labile. no SI/HI/AVH expressed, but behaviors c/w at the least AH. Diagnostics Vital Signs (24Hr): Vital Signs - 24 hr 01/30/23 21:45 01/31/23 08:00 Temperature 97.8 F 97.1 F Pulse Rate 77 64 Respiratory Rate 16 16 Blood Pressure 115/59 L 111/52 L Pulse Oximetry 98 98 Oxygen Delivery Method Room Air Room Air BMI result Body Mass Index 28.6 Labs 01/28/23 15:41 01/28/23 15:41 Medications Medications Current Medications Acetaminophen (Acetaminophen 325 Mg Tablet) 650 mg PO Q6H PRN PRN Reason: Headache/Pain Mild Scale (1-3) Last Admin: 01/31/23 08:44 Dose: 650 mg Al Hydroxide/Mg Hydroxide (Magnesium Hydrox/Alum Hydrox 30 Ml Oral.Susp) 30 ml PO Q6H PRN PRN Reason: Heartburn/Nausea Last Admin: 01/29/23 22:57 Dose: 30 ml Benzocaine (Throat Lozenge, Medicated Lozenge) 1 lozenge MUCOUS MEM Q2H PRN PRN Reason: Sore Throat Last Admin: 01/29/23 19:25 Dose: 1 lozenge Benztropine Mesylate (Benztropine Mesylate 1 Mg Tablet) 1 mg PO BID [facility] Last Admin: 01/31/23 08:44 Dose: 1 mg Carbamazepine (Carbamazepine 200 Mg Tablet) 400 mg PO BID [facility] Last Admin: 01/31/23 08:45 Dose: 400 mg Chlorpromazine HCl (Chlorpromazine Hcl 25 Mg Tablet) 50 mg PO Q4H PRN PRN Reason: agitation Last Admin: 01/31/23 14:04 Dose: 50 mg Chlorpromazine HCl (Chlorpromazine Hcl 25 Mg Tablet) 50 mg PO BEDTIME [facility] Last Admin: 01/30/23 19:59 Dose: 50 mg Clonidine HCl (Clonidine Hcl 0.1 Mg Tablet) 0.1 mg PO Q2H PRN; Protocol PRN Reason: agitation/signs of opioid withdrawal Last Admin: 01/30/23 23:57 Dose: 0.1 mg Dicyclomine HCl (Dicyclomine Hcl 10 Mg Capsule) 10 mg PO QIDACHS PRN PRN Reason: cramps Last Admin: 01/26/23 21:36 Dose: 10 mg Diphenhydramine HCl (Diphenhydramine Hcl 25 Mg Capsule) 50 mg PO Q6H PRN PRN Reason: Allergic Symptoms Last Admin: 01/30/23 21:22 Dose: 50 mg Folic Acid (Folic Acid 1 Mg Tablet) 1 mg PO DAILY [facility] Last Admin: 01/31/23 08:44 Dose: 1 mg Haloperidol Lactate (Haloperidol Lactate 5 Mg/Ml Vial) 7.5 mg IM BID PRN PRN Reason: if PO refused Last Admin: 01/20/23 09:23 Dose: 7.5 mg Haloperidol Lactate (Haloperidol Lactate Oral Conc 10 Mg/5 Ml Oral.Conc) 10 mg PO BID [facility] Last Admin: 01/31/23 08:43 Dose: 10 mg Haloperidol Lactate (Haloperidol Lactate Oral Conc 10 Mg/5 Ml Oral.Conc) 5 mg PO DAILY@1300 [facility] Last Admin: 01/31/23 12:47 Dose: 5 mg Hydroxyzine HCl (Hydroxyzine Hcl 25 Mg Tablet) 25 mg PO Q6H PRN PRN Reason: Anxiety Last Admin: 01/31/23 14:04 Dose: 25 mg Ibuprofen (Ibuprofen 800 Mg Tablet) 800 mg PO TID PRN PRN Reason: back pain Last Admin: 01/31/23 13:10 Dose: 800 mg Lorazepam (Lorazepam 2 Mg/Ml Vial) 2 mg IM BID PRN PRN Reason: refusal of tegretol Magnesium Hydroxide (Milk Of Magnesia 30 Ml Oral.Susp) 30 ml PO DAILY PRN PRN Reason: Constipation Multi-Ingred Cream/Lotion/Oil/Oint (Mineral Oil/Petrolatum,White 106 Gm Tube) 1 appl TOPICAL BID [facility]; Protocol Last Admin: 01/31/23 08:46 Dose: Not Given Nicotine (Nicotine 21 Mg Patch.Td24) 21 mg TRANSDERMA DAILY PRN PRN Reason: smoking cessation Last Admin: 01/15/23 16:06 Dose: 21 mg Nicotine Polacrilex (Nicotine Polacrilex 2 Mg Gum) 4 mg BUCCAL Q2H PRN PRN Reason: nicotine cravings Ondansetron HCl (Ondansetron Odt 4 Mg Tab.Rapdis) 4 mg TRANSLINGU Q6H PRN PRN Reason: Nausea and Vomiting Last Admin: 01/28/23 14:44 Dose: 4 mg Thiamine HCl (Thiamine Hcl 100 Mg Tablet) 100 mg PO DAILY [facility] Last Admin: 01/31/23 08:44 Dose: 100 mg Trazodone HCl (Trazodone Hcl 50 Mg Tablet) 50 mg PO BEDTIME MRX1 PRN PRN Reason: Insomnia Last Admin: 01/30/23 23:08 Dose: 50 mg Allergies Allergies Allergy/AdvReac Type Severity Reaction Status Date / Time morphine [MORPHINE] AdvReac Unknown NAUSEA Verified 12/10/22 19:56 Assessment & Plan Assessment & Plan (1) Schizoaffective disorder, bipolar type: Status: Acute Code(s): F25.0 - Schizoaffective disorder, bipolar type (2) Opioid use disorder: Status: Acute Code(s): F11.90 - Opioid use, unspecified, uncomplicated (3) Cocaine use disorder: Status: Acute Code(s): F14.10 - Cocaine abuse, uncomplicated Plan 12/24: attempt to give anti-psychotics. comfort meds for opioid and cocaine withdrawal. 12/25: refusing medications. period of agitation last night slamming doors and yelling (presumably @). continue current mgmt. 12/26: refusing meds. binging and purging. floridly psychotic. 12/27: had meds last night for sleep, per his request. schedule all haldol tonight with ativan and cogentin. a bit more interactive today, remains delayed and distracted. no binging/purgin behaviors or agitated behaviors described by RN report today. 12/28: refused meds last night. Today asks for meds for sx mgt- aggressive today-threw two coffee cups. Begin Depakote 250 mg bid. 12/29: got multiple meds last NOC and overnight per his request. slept 2 hours. refusing meds this morning. commitment paperwork completed. 3-day notice expires tomorrow. c/o opioid craving, asked for methadone. methadone 30 mg daily started today. 12/30: filed for commitment today. haldol and ativan per his request last night. appears in disbelief that he will not be discharged today. 12/31: demanding to leave, getting agitated, banging on nursing station, slamming doors in his room. given IMs x 2, haldol 10 ativan 2 benadryl 50 for first and thorazine 100 for second. 01/01: Remains unpredictable and irritable. Refusing scheduled medications. Section 7/ filed. 01/02: Continue current management. 01/03: refusing meds. irritable, labile. periods of agitation. continue current mgmt, awaiting hearing for . 01/04: refusing meds. irritable, labile. periods of agitation. continue current mgmt, though pt is refusing meds. 01/05: thought-blocked. denies mental illness or need for medications. offer medications. hearing tomorrow. 01/06: committed and ordered medications at hearing. 06/12/20 [facility] DC summary reviewd, pt was discharged on VPA, zyprexa, haldol. 03/14/20 DC summary reviewed, pt discharged on zyprexa, haldol. pt unable to comprehend result, agitated not to be leaving today. 01/07: copy of court order on unit, will order meds accordingly today. no change in presentation. 01/08: Continue current regimen and plans 01/09: Continue current plans and regimen. Discontinue contingent IM Ativan if Depakote refused 01/10: Continue current regimen and plans. 01/11: DC VPA, start tegretol per pt preference. ativan 2 mg IM for refusal of tegretol. continue haldol PO/IM orders. improved from last week. less agitated, a bit more organized and engaging. 01/12: appears more disorganized again today, trouble engaging. refused PO meds last night but did take tegretol PO this morning. 01/13: continues disorganized, difficulty expressing himself. refusing PO meds since yesterday morning. slept 10 hours last night, however 01/14: intermittently taking meds PO versus IM. improved behavior from prior to med order, but remains floridly psychotic. continue current mgmt. 01/16/2023: No changes to current plan 01/17: more compliant with tegretol in recent days, still getting haldol IM. no change in presentation. continue current mgmt. 01/18: remains psychotic, labile. increase tegretol to 300 mg BID. 01/19: continues more aggressive and labile today. increase haldol to 10 BID with back-up IM of 7.5 mg. 01/20: more calm today,periods of agitation, however, in the past 24H. continue current mgmt. declines to change scheduled haldol to thorazine (proposed by MD in the hope he would in order to spare him the IMs). 01/21 continue tx. 01/22 writing for thorazine at bed- mr x1 and check ekg given other antipsycotics on board 01/23 agreed to ekg today, added 1pm dose of 5mg haldol 01/24: taking meds PO, still suffering from AH, possibly VH. perhaps trending more calm, but clearly still periods of agitation in the past several days. 01/25: labile, paranoid delusions. informed staff he experiences AH, mumbles recently. increase tegretol to 400 BID, make IR formulation as he has been chewing the pills. 01/26: more calm today. continue current mgmt. 01/27: continues more calm. some staff concerned for akathisia due to pacing and number of PRNs taken, but appears to be doing less walking than he had been before, does not appear restless or uncomfortable. continue current mgmt, check tegretol level 2 weeks after dose change (02/08). 01/28: stable presentation. intermittent sleep disturbance. continue current mgmt. 01/29: Continue current management. Benadryl for allergies 01/30: Continue current plan of care. 01/31: continues to ask for lots of PRNs. no change in presentation. 01/28 mild anemia and hyponatremia; trend. tegretol level 10.3. Reason for continued inpatient stay Substantial Risk for: harm to self, harm to others, inability to function and rapid decompensation Time Spent With Patient Time: Total time managing care of this patient today __25__ minutes.
[2023-01-31 19:40] VITALS: BP 126/69; PULSE 77; RESP 18; TEMP 36.8; O2SAT 98
[2023-01-31] MEDS: cloNIDine HCL 0.1 MG TABLET PO (22:53)
[2023-01-31] MEDS: traZODone HCL 50 MG TABLET PO (22:55)
--- NOTE | 2023-02-01 | ECG_ITS ---
Test Reason : abnormal ekgs Blood Pressure : / mmHG Vent. Rate : 068 BPM Atrial Rate : 068 BPM P-R Int : 172 ms QRS Dur : 090 ms QT Int : 360 ms P-R-T Axes : 054 067 027 degrees QTc Int : 382 ms Normal sinus rhythm Normal ECG When compared with ECG of 23-JAN-2023 10:06, Criteria for Septal infarct are no longer Present Nonspecific T wave abnormality no longer evident in Anterior leads Referred By: Miguel Pemberton Electronically Signed By:BORIS SKINNER
[2023-02-01] MEDS: traZODone HCL 50 MG TABLET PO ×2 (00:21→22:05)
[2023-02-01] MEDS: Ibuprofen 800 MG TABLET PO ×2 (05:54→18:16)
[2023-02-01] MEDS: Thiamine HCL 100 MG TABLET PO (08:31)
[2023-02-01] MEDS: carBAMazepine 200 MG TABLET 400 MG PO ×2 (08:31→20:26)
[2023-02-01] MEDS: Folic Acid 1 MG TABLET PO (08:31)
[2023-02-01] MEDS: Benztropine Mesylate 1 MG TABLET PO ×2 (08:31→20:26)
[2023-02-01] MEDS: Haloperidol Lactate Oral Conc 10 MG/5 ML ORAL.CONC PO ×2 (08:31→20:26)
[2023-02-01 08:34] VITALS: BP 112/58; PULSE 90; RESP 18; TEMP 36.7; O2SAT 99
[2023-02-01] MEDS: hydrOXYzine HCL 25 MG TABLET PO (10:35)
[2023-02-01] MEDS: Acetaminophen 325 MG TABLET 650 MG PO ×2 (11:13→19:44)
[2023-02-01] MEDS: Haloperidol Lactate Oral Conc 10 MG/5 ML ORAL.CONC 5 MG PO (13:06)
[2023-02-01] MEDS: chlorproMAZINE HCl 25 MG TABLET 50 MG PO ×3 (13:06→21:25)
--- NOTE | 2023-02-01 13:42 | P.PNPSI_ITS ---
Subjective Subjective Date of Service: 02/01/23 Reason For Visit: Psychosis Interim History: no change in presentation. appears distracted, wandering the halls. no questions or concerns. per staff, variably calm and cooperative and agitated and yelling/swearing when PRNs not available. taking lots of PRNs, appears to be for AH or racing thoughts. c/o AH. Mental Status Exam Mental Status Exam Narrative: adequately dressed and groomed. resting, rousable. cooperative. speech decr in amount, nml latency. seemingly adequately organized for brief interaction. affect constricted, normo-intense, non-labile. no SI/HI/AVH expressed, but behaviors c/w at the least AH. Diagnostics Vital Signs (24Hr): Vital Signs - 24 hr 01/31/23 19:40 02/01/23 08:34 Temperature 98.2 F 98.1 F Pulse Rate 77 90 Respiratory Rate 18 18 Blood Pressure 126/69 112/58 L Pulse Oximetry 98 99 Oxygen Delivery Method Room Air Room Air BMI result Body Mass Index 28.6 Labs 01/28/23 15:41 01/28/23 15:41 Medications Medications Current Medications Acetaminophen (Acetaminophen 325 Mg Tablet) 650 mg PO Q6H PRN PRN Reason: Headache/Pain Mild Scale (1-3) Last Admin: 02/01/23 11:13 Dose: 650 mg Al Hydroxide/Mg Hydroxide (Magnesium Hydrox/Alum Hydrox 30 Ml Oral.Susp) 30 ml PO Q6H PRN PRN Reason: Heartburn/Nausea Last Admin: 01/29/23 22:57 Dose: 30 ml Benzocaine (Throat Lozenge, Medicated Lozenge) 1 lozenge MUCOUS MEM Q2H PRN PRN Reason: Sore Throat Last Admin: 01/29/23 19:25 Dose: 1 lozenge Benztropine Mesylate (Benztropine Mesylate 1 Mg Tablet) 1 mg PO BID [facility] Last Admin: 02/01/23 08:31 Dose: 1 mg Carbamazepine (Carbamazepine 200 Mg Tablet) 400 mg PO BID [facility] Last Admin: 02/01/23 08:31 Dose: 400 mg Chlorpromazine HCl (Chlorpromazine Hcl 25 Mg Tablet) 50 mg PO Q4H PRN PRN Reason: agitation Last Admin: 02/01/23 13:06 Dose: 50 mg Chlorpromazine HCl (Chlorpromazine Hcl 25 Mg Tablet) 50 mg PO BEDTIME [facility] Last Admin: 01/31/23 20:32 Dose: 50 mg Clonidine HCl (Clonidine Hcl 0.1 Mg Tablet) 0.1 mg PO Q2H PRN; Protocol PRN Reason: agitation/signs of opioid withdrawal Last Admin: 01/31/23 22:53 Dose: 0.1 mg Dicyclomine HCl (Dicyclomine Hcl 10 Mg Capsule) 10 mg PO QIDACHS PRN PRN Reason: cramps Last Admin: 01/26/23 21:36 Dose: 10 mg Diphenhydramine HCl (Diphenhydramine Hcl 25 Mg Capsule) 50 mg PO Q6H PRN PRN Reason: Allergic Symptoms Last Admin: 01/30/23 21:22 Dose: 50 mg Folic Acid (Folic Acid 1 Mg Tablet) 1 mg PO DAILY [facility] Last Admin: 02/01/23 08:31 Dose: 1 mg Haloperidol Lactate (Haloperidol Lactate 5 Mg/Ml Vial) 7.5 mg IM BID PRN PRN Reason: if PO refused Last Admin: 01/20/23 09:23 Dose: 7.5 mg Haloperidol Lactate (Haloperidol Lactate Oral Conc 10 Mg/5 Ml Oral.Conc) 10 mg PO BID [facility] Last Admin: 02/01/23 08:31 Dose: 10 mg Haloperidol Lactate (Haloperidol Lactate Oral Conc 10 Mg/5 Ml Oral.Conc) 5 mg PO DAILY@1300 [facility] Last Admin: 02/01/23 13:06 Dose: 5 mg Hydroxyzine HCl (Hydroxyzine Hcl 25 Mg Tablet) 25 mg PO Q6H PRN PRN Reason: Anxiety Last Admin: 02/01/23 10:35 Dose: 25 mg Ibuprofen (Ibuprofen 800 Mg Tablet) 800 mg PO TID PRN PRN Reason: back pain Last Admin: 02/01/23 05:54 Dose: 800 mg Lorazepam (Lorazepam 2 Mg/Ml Vial) 2 mg IM BID PRN PRN Reason: refusal of tegretol Magnesium Hydroxide (Milk Of Magnesia 30 Ml Oral.Susp) 30 ml PO DAILY PRN PRN Reason: Constipation Multi-Ingred Cream/Lotion/Oil/Oint (Mineral Oil/Petrolatum,White 106 Gm Tube) 1 appl TOPICAL BID [facility]; Protocol Last Admin: 02/01/23 08:31 Dose: Not Given Nicotine (Nicotine 21 Mg Patch.Td24) 21 mg TRANSDERMA DAILY PRN PRN Reason: smoking cessation Last Admin: 01/15/23 16:06 Dose: 21 mg Nicotine Polacrilex (Nicotine Polacrilex 2 Mg Gum) 4 mg BUCCAL Q2H PRN PRN Reason: nicotine cravings Ondansetron HCl (Ondansetron Odt 4 Mg Tab.Rapdis) 4 mg TRANSLINGU Q6H PRN PRN Reason: Nausea and Vomiting Last Admin: 01/28/23 14:44 Dose: 4 mg Thiamine HCl (Thiamine Hcl 100 Mg Tablet) 100 mg PO DAILY [facility] Last Admin: 02/01/23 08:31 Dose: 100 mg Trazodone HCl (Trazodone Hcl 50 Mg Tablet) 50 mg PO BEDTIME MRX1 PRN PRN Reason: Insomnia Last Admin: 02/01/23 00:21 Dose: 50 mg Allergies Allergies Allergy/AdvReac Type Severity Reaction Status Date / Time morphine [MORPHINE] AdvReac Unknown NAUSEA Verified 12/10/22 19:56 Assessment & Plan Assessment & Plan (1) Schizoaffective disorder, bipolar type: Status: Acute Code(s): F25.0 - Schizoaffective disorder, bipolar type (2) Opioid use disorder: Status: Acute Code(s): F11.90 - Opioid use, unspecified, uncomplicated (3) Cocaine use disorder: Status: Acute Code(s): F14.10 - Cocaine abuse, uncomplicated Plan 12/24: attempt to give anti-psychotics. comfort meds for opioid and cocaine withdrawal. 12/25: refusing medications. period of agitation last night slamming doors and yelling (presumably @). continue current mgmt. 12/26: refusing meds. binging and purging. floridly psychotic. 12/27: had meds last night for sleep, per his request. schedule all haldol tonight with ativan and cogentin. a bit more interactive today, remains delayed and distracted. no binging/purgin behaviors or agitated behaviors described by RN report today. 12/28: refused meds last night. Today asks for meds for sx mgt- aggressive today- threw two coffee cups. Begin Depakote 250 mg bid. 12/29: got multiple meds last NOC and overnight per his request. slept 2 hours. refusing meds this morning. commitment paperwork completed. 3-day notice expires tomorrow. c/o opioid craving, asked for methadone. methadone 30 mg daily started today. 12/30: filed for commitment today. haldol and ativan per his request last night. appears in disbelief that he will not be discharged today. 12/31: demanding to leave, getting agitated, banging on nursing station, slamming doors in his room. given IMs x 2, haldol 10 ativan 2 benadryl 50 for first and thorazine 100 for second. 01/01: Remains unpredictable and irritable. Refusing scheduled medications. Section 11/13 filed. 01/02: Continue current management. 01/03: refusing meds. irritable, labile. periods of agitation. continue current mgmt, awaiting hearing for . 01/04: refusing meds. irritable, labile. periods of agitation. continue current mgmt, though pt is refusing meds. 01/05: thought-blocked. denies mental illness or need for medications. offer medications. hearing tomorrow. 01/06: committed and ordered medications at hearing. 06/12/20 [facility] [place] reviewd, pt was discharged on VPA, zyprexa, haldol. 03/14/20 DC summary reviewed, pt discharged on zyprexa, haldol. pt unable to comprehend result, agitated not to be leaving today. 01/07: copy of court order on unit, will order meds accordingly today. no change in presentation. 01/08: Continue current regimen and plans 01/09: Continue current plans and regimen. Discontinue contingent IM Ativan if Depakote refused 01/10: Continue current regimen and plans. 01/11: DC VPA, start tegretol per pt preference. ativan 2 mg IM for refusal of tegretol. continue haldol PO/IM orders. improved from last week. less agitated, a bit more organized and engaging. 01/12: appears more disorganized again today, trouble engaging. refused PO meds last night but did take tegretol PO this morning. 01/13: continues disorganized, difficulty expressing himself. refusing PO meds since yesterday morning. slept 10 hours last night, however 01/14: intermittently taking meds PO versus IM. improved behavior from prior to med order, but remains floridly psychotic. continue current mgmt. 01/16/2023: No changes to current plan 01/17: more compliant with tegretol in recent days, still getting haldol IM. no change in presentation. continue current mgmt. 01/18: remains psychotic, labile. increase tegretol to 300 mg BID. 01/19: continues more aggressive and labile today. increase haldol to 10 BID with back-up IM of 7.5 mg. 01/20: more calm today,periods of agitation, however, in the past 24H. continue current mgmt. declines to change scheduled haldol to thorazine (proposed by MD in the hope he would in order to spare him the IMs). 01/21 continue tx. 01/22 writing for thorazine at bed- mr x1 and check ekg given other antipsycotics on board 01/23 agreed to ekg today, added 1pm dose of 5mg haldol 01/24: taking meds PO, still suffering from AH, possibly VH. perhaps trending more calm, but clearly still periods of agitation in the past several days. 01/25: labile, paranoid delusions. informed staff he experiences AH, mumbles recently. increase tegretol to 400 BID, make IR formulation as he has been chewing the pills. 01/26: more calm today. continue current mgmt. 01/27: continues more calm. some staff concerned for akathisia due to pacing and number of PRNs taken, but appears to be doing less walking than he had been before, does not appear restless or uncomfortable. continue current mgmt, check tegretol level 2 weeks after dose change (02/08). 01/28: stable presentation. intermittent sleep disturbance. continue current mgmt. 01/29: Continue current management. Benadryl for allergies 01/30: Continue current plan of care. 01/31: continues to ask for lots of PRNs. no change in presentation. 01/28 mild anemia and hyponatremia; trend. tegretol level 10.3. 02/01: series of abnormal and dynamic EKGs; today's WNL. cardiology consult requested for opinion. will start lithium pending cards opinion re EKG series. no change in presentation. Reason for continued inpatient stay Substantial Risk for: harm to self, harm to others, inability to function and rapid decompensation Time Spent With Patient Time: Total time managing care of this patient today __35__ minutes.
[2023-02-01] MEDS: cloNIDine HCL 0.1 MG TABLET PO (21:26)
[2023-02-01 21:27] VITALS: BP 117/69; PULSE 77; RESP 18; TEMP 36.7; O2SAT 98
[2023-02-01] MEDS: diphenhydrAMINE HCL 25 MG CAPSULE 50 MG PO (22:35)
[2023-02-02] MEDS: Acetaminophen 325 MG TABLET 650 MG PO ×3 (05:44→19:19)
--- NOTE | 2023-02-02 07:00 | CA_ITS ---
Transthoracic Echocardiogram Patient (Last, First, Middle): Miguel Ángel Martinez, Gender: Male Date of : 1995 Age: 27 Procedure Date: 02/02/2023 Procedure Type: Transthoracic Echocardiogram Location: S3W Height: 177.8 cm Weight: 90.27 kg BSA: 2.08 m2 Heart Rate: 80 bpm BP: 132 / 60 mmHg Engineer Intern: [email or web address] Referring MD: Miguel Pemberton Rail Car Repairer: Gregory Webster MD Symptoms: nonspecific EKG changes Study Quality: Adequate ECG Rhythm: Sinus Conclusions: - Essentially normal study Findings Left Ventricle Normal left ventricular size, thickness, and systolic function. The visually estimated ejection fraction is between 60-65%. Spectral Doppler is indicative of a normal filling pattern. Right Ventricle Normal right ventricular cavity size and systolic function. Atria Both atria are normal in size. There is no evidence of interatrial shunt. Aortic Valve The aortic valve structure and function is likely normal. There is no aortic valve stenosis. There is no aortic valve regurgitation. Mitral Valve Normal mitral valve structure and function. There is trace mitral valve regurgitation. There is no mitral valve stenosis. Pulmonic Valve The pulmonic valve was not well visualized. Tricuspid Valve Likely normal tricuspid valve structure and function. There is trace tricuspid valve regurgitation. The right ventricular systolic pressure is normal. The right ventricular systolic pressure is 16 mmHg. Normal right atrial pressure. There is no evidence of pulmonary hypertension. Great Vessels All visible segments of the aorta are normal in size. The pulmonary artery was not well visualized. Venous The inferior vena cava is normal in size and collapses greater than 50% with inspiration. Pericardium/Pleural There is no evidence of pericardial effusion. Prior Study Comparison No prior study available for comparison. Measurements 2D Linear Measurements IVSd: 0.91 0.6-0.9/0.6-1.0 cm LVIDd: 5.12 3.9-5.3/4.2-5.9 cm LVIDd Index: 2.46 2.4-3.2/2.2-3.1 cm/m2 LVIDs: 3.24 2.0-3.6 cm LVPWd: 1.04 0.7-1.1 cm LA Diam: 3.70 2.7-3.8/3.0-4.0 cm LAIDs Index: 1.78 1.5-2.3 cm/m2 LV Mass: 228.57 67-162/88-224 g LV Mass Index: 109.89 43-95/49-115 g/m2 LVOT Diam: 2.10 3.0+(-)1.3 cm Mitral Valve MV Pk E: 0.94 MV PK A: 0.88 MV Decel Time: 201.00 E/A: 1.10 E'Lateral: 8.16 E'Medial: 8.59 E/E' Med: 11.00 E/E' Lat: 11.60 PHT: 59.00 MVA PHT: 3.73 Decel [place]: 4.70 Aortic Valve AoV Pk Harshad: 1.87 AoV Mn Harshad: 1.10 AoV VTI: 0.39 AoV Pk Grad: 14.00 Aov Mn Grad: 6.00 ELIOT Cont.VTI: 1.83 LVOT LVOT Pk Harshad: 1.18 LVOT Mn Harshad: 0.66 LVOT VTI: 0.21 LVOT Pk Grad: 6.00 LVOT Mn Grad: 2.00 LVOT Diam: 2.10 LVOT Area: 3.46 Diastolic Function MV Pk E: 0.94 MV Pk A: 0.88 E/A: 1.10 E'Medial: 8.59 E/E' Med: 11.00 E' Laterial: 8.16 E/E' Lat: 11.60 Right Ventricle TAPSE (mm): 33.50 TVS' Harshad: 15.90 Tricuspid Valve TR Pk Harshad: 1.81 TR Pk Grad: 13.00 RA Press: 3.00 RVSP: 16.00 Great Vessels Aorta Sinus of Valsalva: 2.40 2.0-3.5 cm Ao Asc: 2.70 2.1-3.4 cm Pulmonary Veins Pulm Vein S/D 0.80 Pulmonary Valve PV Pk Harshad: 1.97 Peak PV Grad: 16.00 Updated in Other Vendor System with Status of Final Gregory Webster MD electronically signed on 02/02/2023 3:18:25 PM with status of Final
[2023-02-02] MEDS: Folic Acid 1 MG TABLET PO (08:15)
[2023-02-02] MEDS: Benztropine Mesylate 1 MG TABLET PO ×2 (08:15→21:05)
[2023-02-02] MEDS: Haloperidol Lactate Oral Conc 10 MG/5 ML ORAL.CONC PO ×2 (08:15→21:06)
[2023-02-02] MEDS: carBAMazepine 200 MG TABLET 400 MG PO ×2 (08:15→21:05)
[2023-02-02] MEDS: Thiamine HCL 100 MG TABLET PO (08:15)
[2023-02-02 08:17] VITALS: BP 132/60; PULSE 76; RESP 17; TEMP 36.4; O2SAT 98
[2023-02-02] MEDS: Ibuprofen 800 MG TABLET PO ×2 (09:52→17:25)
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
[2023-02-02] MEDS: chlorproMAZINE HCl 25 MG TABLET 50 MG PO ×3 (10:38→20:16)
[2023-02-02] MEDS: Haloperidol Lactate Oral Conc 10 MG/5 ML ORAL.CONC 5 MG PO (12:26)
--- NOTE | 2023-02-02 12:53 | HO.PSYCHPN ---
Subjective Subjective Date of Service: 02/02/23 Reason For Visit: Psychosis Interim History: calm, cooperative, appears better able to engage socially. c/o leg and foot pain, accepts instruction in some basic stretches from MD. amenable to start lithium for help with AH. per cardiology, echo ordered. per staff, c/o AH making him anxious. heavy PRN use. no SI/HI. internally preoccupied. slept about [id number]. Mental Status Exam Mental Status Exam Narrative: adequately dressed and groomed. up and about the unit, pacing. cooperative. speech nml in amount, nml latency. more organized than prior. affect constricted, normo-intense, non-labile. no SI/HI/AVH expressed, but behaviors c/w at the least AH. Diagnostics Vital Signs (24Hr): Vital Signs - 24 hr 02/01/23 21:27 02/02/23 08:17 Temperature 98.1 F 97.6 F Pulse Rate 77 76 Respiratory Rate 18 17 Blood Pressure 117/69 132/60 Pulse Oximetry 98 98 Oxygen Delivery Method Room Air Room Air BMI result Body Mass Index 28.6 Labs 01/28/23 15:41 01/28/23 15:41 Medications Medications Current Medications Acetaminophen (Acetaminophen 325 Mg Tablet) 650 mg PO Q6H PRN PRN Reason: Headache/Pain Mild Scale (1-3) Last Admin: 02/02/23 05:44 Dose: 650 mg Al Hydroxide/Mg Hydroxide (Magnesium Hydrox/Alum Hydrox 30 Ml Oral.Susp) 30 ml PO Q6H PRN PRN Reason: Heartburn/Nausea Last Admin: 01/29/23 22:57 Dose: 30 ml Benzocaine (Throat Lozenge, Medicated Lozenge) 1 lozenge MUCOUS MEM Q2H PRN PRN Reason: Sore Throat Last Admin: 01/29/23 19:25 Dose: 1 lozenge Benztropine Mesylate (Benztropine Mesylate 1 Mg Tablet) 1 mg PO BID [facility] Last Admin: 02/02/23 08:15 Dose: 1 mg Carbamazepine (Carbamazepine 200 Mg Tablet) 400 mg PO BID [facility] Last Admin: 02/02/23 08:15 Dose: 400 mg Chlorpromazine HCl (Chlorpromazine Hcl 25 Mg Tablet) 50 mg PO Q4H PRN PRN Reason: agitation Last Admin: 02/02/23 10:38 Dose: 50 mg Chlorpromazine HCl (Chlorpromazine Hcl 25 Mg Tablet) 50 mg PO BEDTIME [facility] Last Admin: 02/01/23 20:26 Dose: 50 mg Clonidine HCl (Clonidine Hcl 0.1 Mg Tablet) 0.1 mg PO Q2H PRN; Protocol PRN Reason: agitation/signs of opioid withdrawal Last Admin: 02/01/23 21:26 Dose: 0.1 mg Dicyclomine HCl (Dicyclomine Hcl 10 Mg Capsule) 10 mg PO QIDACHS PRN PRN Reason: cramps Last Admin: 01/26/23 21:36 Dose: 10 mg Diphenhydramine HCl (Diphenhydramine Hcl 25 Mg Capsule) 50 mg PO Q6H PRN PRN Reason: Allergic Symptoms Last Admin: 02/01/23 22:35 Dose: 50 mg Folic Acid (Folic Acid 1 Mg Tablet) 1 mg PO DAILY [facility] Last Admin: 02/02/23 08:15 Dose: 1 mg Haloperidol Lactate (Haloperidol Lactate 5 Mg/Ml Vial) 7.5 mg IM BID PRN PRN Reason: if PO refused Last Admin: 01/20/23 09:23 Dose: 7.5 mg Haloperidol Lactate (Haloperidol Lactate Oral Conc 10 Mg/5 Ml Oral.Conc) 10 mg PO BID [facility] Last Admin: 02/02/23 08:15 Dose: 10 mg Haloperidol Lactate (Haloperidol Lactate Oral Conc 10 Mg/5 Ml Oral.Conc) 5 mg PO DAILY@1300 [facility] Last Admin: 02/02/23 12:26 Dose: 5 mg Hydroxyzine HCl (Hydroxyzine Hcl 25 Mg Tablet) 25 mg PO Q6H PRN PRN Reason: Anxiety Last Admin: 02/01/23 10:35 Dose: 25 mg Ibuprofen (Ibuprofen 800 Mg Tablet) 800 mg PO TID PRN PRN Reason: back pain Last Admin: 02/02/23 09:52 Dose: 800 mg [place] Carbonate ([place] Carbonate Er 300 Mg Tablet.Er) 600 mg PO BID [facility] Lorazepam (Lorazepam 2 Mg/Ml Vial) 2 mg IM BID PRN PRN Reason: refusal of tegretol Magnesium Hydroxide (Milk Of Magnesia 30 Ml Oral.Susp) 30 ml PO DAILY PRN PRN Reason: Constipation Multi-Ingred Cream/Lotion/Oil/Oint (Mineral Oil/Petrolatum,White 106 Gm Tube) 1 appl TOPICAL BID [facility]; Protocol Last Admin: 02/02/23 08:16 Dose: Not Given Nicotine (Nicotine 21 Mg Patch.Td24) 21 mg TRANSDERMA DAILY PRN PRN Reason: smoking cessation Last Admin: 01/15/23 16:06 Dose: 21 mg Nicotine Polacrilex (Nicotine Polacrilex 2 Mg Gum) 4 mg BUCCAL Q2H PRN PRN Reason: nicotine cravings Ondansetron HCl (Ondansetron Odt 4 Mg Tab.Rapdis) 4 mg TRANSLINGU Q6H PRN PRN Reason: Nausea and Vomiting Last Admin: 01/28/23 14:44 Dose: 4 mg Thiamine HCl (Thiamine Hcl 100 Mg Tablet) 100 mg PO DAILY [facility] Last Admin: 02/02/23 08:15 Dose: 100 mg Trazodone HCl (Trazodone Hcl 50 Mg Tablet) 50 mg PO BEDTIME MRX1 PRN PRN Reason: Insomnia Last Admin: 02/01/23 22:05 Dose: 50 mg Allergies Allergies Allergy/AdvReac Type Severity Reaction Status Date / Time morphine [MORPHINE] AdvReac Unknown NAUSEA Verified 12/10/22 19:56 Assessment & Plan Assessment & Plan (1) Nonspecific ST-T wave electrocardiographic changes: Status: Acute Code(s): R94.31 - Abnormal electrocardiogram [ECG] [EKG] Assessment and Plan: Patient with nonspecific ST T wave changes which had dynamic. Unclear significance of these. He has no cardiac symptoms whatsoever. Normal physical exam. The septal Q-waves noted on EKG few days ago and not on yesterday's EKG on most likely due to lead placement and not suggestive for septal infarct. Would suggest an echocardiogram as cooking can be associated with cardiomyopathy. If this is within normal limits no further workup is indicated. There is no issues with use of lithium if it is absolutely necessary to use this to treat his psychiatric condition. No further 0 or other workup is indicated. (2) Cocaine use disorder: Status: Acute Code(s): F14.10 - Cocaine abuse, uncomplicated (3) Schizoaffective disorder, bipolar type: Status: Acute Code(s): F25.0 - Schizoaffective disorder, bipolar type (4) Opioid use disorder: Status: Acute Code(s): F11.90 - Opioid use, unspecified, uncomplicated Plan 12/24: attempt to give anti-psychotics. comfort meds for opioid and cocaine withdrawal. 12/25: refusing medications. period of agitation last night slamming doors and yelling (presumably @). continue current mgmt. 12/26: refusing meds. binging and purging. floridly psychotic. 12/27: had meds last night for sleep, per his request. schedule all haldol tonight with ativan and cogentin. a bit more interactive today, remains delayed and distracted. no binging/purging behaviors or agitated behaviors described by RN report today. 12/28: refused meds last night. Today asks for meds for sx mgt- aggressive today-threw two coffee cups. Begin Depakote 250 mg bid. 12/29: got multiple meds last NOC and overnight per his request. slept 2 hours. refusing meds this morning. commitment paperwork completed. 3-day notice expires tomorrow. c/o opioid craving, asked for methadone. methadone 30 mg daily started today. 12/30: filed for commitment today. haldol and ativan per his request last night. appears in disbelief that he will not be discharged today. 12/31: demanding to leave, getting agitated, banging on nursing station, slamming doors in his room. given IMs x 2, haldol 10 ativan 2 benadryl 50 for first and thorazine 100 for second. 01/01: Remains unpredictable and irritable. Refusing scheduled medications. Section 7/ filed. 01/02: Continue current management. 01/03: refusing meds. irritable, labile. periods of agitation. continue current mgmt, awaiting hearing for . 01/04: refusing meds. irritable, labile. periods of agitation. continue current mgmt, though pt is refusing meds. 01/05: thought-blocked. denies mental illness or need for medications. offer medications. hearing tomorrow. 01/06: committed and ordered medications at hearing. 06/12/20 [facility] [place] summary reviewd, pt was discharged on VPA, zyprexa, haldol. 03/14/20 DC summary reviewed, pt discharged on zyprexa, haldol. pt unable to comprehend result, agitated not to be leaving today. 01/07: copy of court order on unit, will order meds accordingly today. no change in presentation. 01/08: Continue current regimen and plans 01/09: Continue current plans and regimen. Discontinue contingent IM Ativan if Depakote refused 01/10: Continue current regimen and plans. 01/11: DC VPA, start tegretol per pt preference. ativan 2 mg IM for refusal of tegretol. continue haldol PO/IM orders. improved from last week. less agitated, a bit more organized and engaging. 01/12: appears more disorganized again today, trouble engaging. refused PO meds last night but did take tegretol PO this morning. 01/13: continues disorganized, difficulty expressing himself. refusing PO meds since yesterday morning. slept 10 hours last night, however 01/14: intermittently taking meds PO versus IM. improved behavior from prior to med order, but remains floridly psychotic. continue current mgmt. 01/16/2023: No changes to current plan 01/17: more compliant with tegretol in recent days, still getting haldol IM. no change in presentation. continue current mgmt. 01/18: remains psychotic, labile. increase tegretol to 300 mg BID. 01/19: continues more aggressive and labile today. increase haldol to 10 BID with back-up IM of 7.5 mg. 01/20: more calm today,periods of agitation, however, in the past 24H. continue current mgmt. declines to change scheduled haldol to thorazine (proposed by MD in the hope he would in order to spare him the IMs). 01/21 continue tx. 01/22 writing for thorazine at bed- mr x1 and check ekg given other antipsychotics on board 01/23 agreed to ekg today, added 1pm dose of 5mg haldol 01/24: taking meds PO, still suffering from AH, possibly VH. perhaps trending more calm, but clearly still periods of agitation in the past several days. 01/25: labile, paranoid delusions. informed staff he experiences AH, mumbles recently. increase tegretol to 400 BID, make IR formulation as he has been chewing the pills. 01/26: more calm today. continue current mgmt. 01/27: continues more calm. some staff concerned for akathisia due to pacing and number of PRNs taken, but appears to be doing less walking than he had been before, does not appear restless or uncomfortable. continue current mgmt, check tegretol level 2 weeks after dose change (02/08). 01/28: stable presentation. intermittent sleep disturbance. continue current mgmt. 01/29: Continue current management. Benadryl for allergies 01/30: Continue current plan of care. 01/31: continues to ask for lots of PRNs. no change in presentation. 01/28 mild anemia and hyponatremia; trend. tegretol level 10.3. 02/01: series of abnormal and dynamic EKGs; today's WNL. cardiology consult requested for opinion. will start lithium pending cards opinion re EKG series. no change in presentation. 02/02: appreciate cardiology consultation and opinion. echocardiogram ordered. lithium started. appears better able to tolerate longer interaction today. Reason for continued inpatient stay Substantial Risk for: harm to self, harm to others, inability to function and rapid decompensation Time Spent With Patient Time: Total time managing care of this patient today __35__ minutes.
[2023-02-02] MEDS: Lithium Carbonate ER 300 MG TABLET.ER 600 MG PO ×2 (13:16→21:05)
[2023-02-02] MEDS: diphenhydrAMINE HCL 25 MG CAPSULE 50 MG PO (15:02)
[2023-02-02] MEDS: hydrOXYzine HCL 25 MG TABLET PO (18:33)
[2023-02-02] MEDS: traZODone HCL 50 MG TABLET PO (21:05)
[2023-02-03] MEDS: Acetaminophen 325 MG TABLET 650 MG PO ×4 (03:14→23:33)
[2023-02-03 07:00] VITALS: BMI 27.8
[2023-02-03 10:00] VITALS: BP 132/84; PULSE 95; RESP 18; TEMP 37.7; O2SAT 96
[2023-02-03] MEDS: Lithium Carbonate ER 300 MG TABLET.ER 600 MG PO ×2 (10:02→20:01)
[2023-02-03] MEDS: Thiamine HCL 100 MG TABLET PO (10:02)
[2023-02-03] MEDS: Benztropine Mesylate 1 MG TABLET PO ×2 (10:02→20:01)
[2023-02-03] MEDS: carBAMazepine 200 MG TABLET 400 MG PO ×2 (10:02→20:01)
[2023-02-03] MEDS: Haloperidol Lactate Oral Conc 10 MG/5 ML ORAL.CONC PO (10:02)
[2023-02-03] MEDS: Folic Acid 1 MG TABLET PO (10:02)
[2023-02-03] MEDS: chlorproMAZINE HCl 25 MG TABLET 50 MG PO ×3 (12:00→20:01)
[2023-02-03] MEDS: chlorproMAZINE HCl 25 MG TABLET PO (13:30)
[2023-02-03] MEDS: Ibuprofen 800 MG TABLET PO ×2 (14:01→21:00)
--- NOTE | 2023-02-03 14:52 | HO.PSYCHPN ---
Subjective Subjective Date of Service: 02/03/23 Reason For Visit: Psychosis Interim History: calm, cooperative. better able to tolerate longer and more complex interactions with MD. c/o what sounds like akathisia, feels his legs are restless. agreeable to decrease haldol dosing. feels lithium has been helpful for him. per staff, not attending groups. echocardiogram WNL. still asking for lots of PRNs. c/o pain in legs. +AH. +RIS. pacing. fewer outbursts. slept about 4 hours overnight, then again at 0500. Mental Status Exam Mental Status Exam Narrative: adequately dressed and groomed. up and about the unit, pacing. cooperative. speech nml in amount, nml latency. linear, logical. affect more flexible, normo-intense, non-labile. no SI/HI/AVH expressed, but behaviors c/w at the least AH. Diagnostics Vital Signs (24Hr): Vital Signs - 24 hr 02/03/23 10:00 Temperature 99.9 F Pulse Rate 95 Respiratory Rate 18 Blood Pressure 132/84 Pulse Oximetry 96 Oxygen Delivery Method Room Air BMI result Body Mass Index 28.6 Labs 01/28/23 15:41 01/28/23 15:41 Medications Medications Current Medications Acetaminophen (Acetaminophen 325 Mg Tablet) 650 mg PO Q6H PRN PRN Reason: Headache/Pain Mild Scale (1-3) Last Admin: 02/03/23 11:15 Dose: 650 mg Al Hydroxide/Mg Hydroxide (Magnesium Hydrox/Alum Hydrox 30 Ml Oral.Susp) 30 ml PO Q6H PRN PRN Reason: Heartburn/Nausea Last Admin: 01/29/23 22:57 Dose: 30 ml Benzocaine (Throat Lozenge, Medicated Lozenge) 1 lozenge MUCOUS MEM Q2H PRN PRN Reason: Sore Throat Last Admin: 01/29/23 19:25 Dose: 1 lozenge Benztropine Mesylate (Benztropine Mesylate 1 Mg Tablet) 1 mg PO BID [facility] Last Admin: 02/03/23 10:02 Dose: 1 mg Carbamazepine (Carbamazepine 200 Mg Tablet) 400 mg PO BID [facility] Last Admin: 02/03/23 10:02 Dose: 400 mg Chlorpromazine HCl (Chlorpromazine Hcl 25 Mg Tablet) 50 mg PO Q4H PRN PRN Reason: agitation Last Admin: 02/03/23 12:00 Dose: 50 mg Chlorpromazine HCl (Chlorpromazine Hcl 25 Mg Tablet) 50 mg PO BEDTIME [facility] Last Admin: 02/02/23 20:16 Dose: 50 mg Chlorpromazine HCl (Chlorpromazine Hcl 25 Mg Tablet) 25 mg PO BID@0900,1300 [facility] Last Admin: 02/03/23 13:30 Dose: 25 mg Clonidine HCl (Clonidine Hcl 0.1 Mg Tablet) 0.1 mg PO Q2H PRN; Protocol PRN Reason: agitation/signs of opioid withdrawal Last Admin: 02/01/23 21:26 Dose: 0.1 mg Dicyclomine HCl (Dicyclomine Hcl 10 Mg Capsule) 10 mg PO QIDACHS PRN PRN Reason: cramps Last Admin: 01/26/23 21:36 Dose: 10 mg Diphenhydramine HCl (Diphenhydramine Hcl 25 Mg Capsule) 50 mg PO Q6H PRN PRN Reason: Allergic Symptoms Last Admin: 02/02/23 15:02 Dose: 50 mg Folic Acid (Folic Acid 1 Mg Tablet) 1 mg PO DAILY [facility] Last Admin: 02/03/23 10:02 Dose: 1 mg Haloperidol Lactate (Haloperidol Lactate 5 Mg/Ml Vial) 7.5 mg IM BID PRN PRN Reason: if PO refused Last Admin: 01/20/23 09:23 Dose: 7.5 mg Haloperidol Lactate (Haloperidol Lactate Oral Conc 10 Mg/5 Ml Oral.Conc) 5 mg PO BID [facility] Hydroxyzine HCl (Hydroxyzine Hcl 25 Mg Tablet) 25 mg PO Q6H PRN PRN Reason: Anxiety Last Admin: 02/02/23 18:33 Dose: 25 mg Ibuprofen (Ibuprofen 800 Mg Tablet) 800 mg PO TID PRN PRN Reason: back pain Last Admin: 02/03/23 14:01 Dose: 800 mg [place] Carbonate ([place] Carbonate Er 300 Mg Tablet.Er) 600 mg PO BID [facility] Last Admin: 02/03/23 10:02 Dose: 600 mg Magnesium Hydroxide (Milk Of Magnesia 30 Ml Oral.Susp) 30 ml PO DAILY PRN PRN Reason: Constipation Multi-Ingred Cream/Lotion/Oil/Oint (Mineral Oil/Petrolatum,White 106 Gm Tube) 1 appl TOPICAL BID [facility]; Protocol Last Admin: 02/03/23 10:06 Dose: Not Given Nicotine (Nicotine 21 Mg Patch.Td24) 21 mg TRANSDERMA DAILY PRN PRN Reason: smoking cessation Last Admin: 01/15/23 16:06 Dose: 21 mg Nicotine Polacrilex (Nicotine Polacrilex 2 Mg Gum) 4 mg BUCCAL Q2H PRN PRN Reason: nicotine cravings Ondansetron HCl (Ondansetron Odt 4 Mg Tab.Rapdis) 4 mg TRANSLINGU Q6H PRN PRN Reason: Nausea and Vomiting Last Admin: 01/28/23 14:44 Dose: 4 mg Thiamine HCl (Thiamine Hcl 100 Mg Tablet) 100 mg PO DAILY [facility] Last Admin: 02/03/23 10:02 Dose: 100 mg Trazodone HCl (Trazodone Hcl 50 Mg Tablet) 50 mg PO BEDTIME MRX1 PRN PRN Reason: Insomnia Last Admin: 02/02/23 21:05 Dose: 50 mg Allergies Allergies Allergy/AdvReac Type Severity Reaction Status Date / Time morphine [MORPHINE] AdvReac Unknown NAUSEA Verified 12/10/22 19:56 Assessment & Plan Assessment & Plan (1) Nonspecific ST-T wave electrocardiographic changes: Status: Acute Code(s): R94.31 - Abnormal electrocardiogram [ECG] [EKG] Assessment and Plan: Patient with nonspecific ST T wave changes which had dynamic. Unclear significance of these. He has no cardiac symptoms whatsoever. Normal physical exam. The septal Q-waves noted on EKG few days ago and not on yesterday's EKG on most likely due to lead placement and not suggestive for septal infarct. Would suggest an echocardiogram as cooking can be associated with cardiomyopathy. If this is within normal limits no further workup is indicated. There is no issues with use of lithium if it is absolutely necessary to use this to treat his psychiatric condition. No further 0 or other workup is indicated. (2) Cocaine use disorder: Status: Acute Code(s): F14.10 - Cocaine abuse, uncomplicated (3) Schizoaffective disorder, bipolar type: Status: Acute Code(s): F25.0 - Schizoaffective disorder, bipolar type (4) Opioid use disorder: Status: Acute Code(s): F11.90 - Opioid use, unspecified, uncomplicated Plan 12/24: attempt to give anti-psychotics. comfort meds for opioid and cocaine withdrawal. 8/19: refusing medications. period of agitation last night slamming doors and yelling (presumably @AH). continue current mgmt. 12/26: refusing meds. binging and purging. floridly psychotic. 12/27: had meds last night for sleep, per his request. schedule all haldol tonight with ativan and cogentin. a bit more interactive today, remains delayed and distracted. no binging/purging behaviors or agitated behaviors described by RN report today. 12/28: refused meds last night. Today asks for meds for sx mgt- aggressive today-threw two coffee cups. Begin Depakote 250 mg bid. 12/29: got multiple meds last NOC and overnight per his request. slept 2 hours. refusing meds this morning. commitment paperwork completed. 3-day notice expires tomorrow. c/o opioid craving, asked for methadone. methadone 30 mg daily started today. 12/30: filed for commitment today. haldol and ativan per his request last night. appears in disbelief that he will not be discharged today. 12/31: demanding to leave, getting agitated, banging on nursing station, slamming doors in his room. given IMs x 2, haldol 10 ativan 2 benadryl 50 for first and thorazine 100 for second. 01/01: Remains unpredictable and irritable. Refusing scheduled medications. Section 7/8 filed. 01/02: Continue current management. 01/03: refusing meds. irritable, labile. periods of agitation. continue current mgmt, awaiting hearing for . 01/04: refusing meds. irritable, labile. periods of agitation. continue current mgmt, though pt is refusing meds. 01/05: thought-blocked. denies mental illness or need for medications. offer medications. hearing tomorrow. 01/06: committed and ordered medications at hearing. [place] [facility] [place] pt was discharged on VPA, zyprexa, haldol. 03/14/20 DC summary reviewed, pt discharged on zyprexa, haldol. pt unable to comprehend result, agitated not to be leaving today. 01/07: copy of court order on unit, will order meds accordingly today. no change in presentation. 01/08: Continue current regimen and plans 01/09: Continue current plans and regimen. Discontinue contingent IM Ativan if Depakote refused 01/10: Continue current regimen and plans. 01/11: DC VPA, start tegretol per pt preference. ativan 2 mg IM for refusal of tegretol. continue haldol PO/IM orders. improved from last week. less agitated, a bit more organized and engaging. 01/12: appears more disorganized again today, trouble engaging. refused PO meds last night but did take tegretol PO this morning. 01/13: continues disorganized, difficulty expressing himself. refusing PO meds since yesterday morning. slept 10 hours last night, however 01/14: intermittently taking meds PO versus IM. improved behavior from prior to med order, but remains floridly psychotic. continue current mgmt. 01/16/2023: No changes to current plan 01/17: more compliant with tegretol in recent days, still getting haldol IM. no change in presentation. continue current mgmt. 01/18: remains psychotic, labile. increase tegretol to 300 mg BID. 01/19: continues more aggressive and labile today. increase haldol to 10 BID with back-up IM of 7.5 mg. 01/20: more calm today,periods of agitation, however, in the past 24H. continue current mgmt. declines to change scheduled haldol to thorazine (proposed by MD in the hope he would in order to spare him the IMs). 01/21 continue tx. 01/22 writing for thorazine at bed- mr x1 and check ekg given other antipsychotics on board 01/23 agreed to ekg today, added 1pm dose of 5mg haldol 01/24: taking meds PO, still suffering from AH, possibly VH. perhaps trending more calm, but clearly still periods of agitation in the past several days. 01/25: labile, paranoid delusions. informed staff he experiences AH, mumbles recently. increase tegretol to 400 BID, make IR formulation as he has been chewing the pills. 01/26: more calm today. continue current mgmt. 01/27: continues more calm. some staff concerned for akathisia due to pacing and number of PRNs taken, but appears to be doing less walking than he had been before, does not appear restless or uncomfortable. continue current mgmt, check tegretol level 2 weeks after dose change (02/08). 01/28: stable presentation. intermittent sleep disturbance. continue current mgmt. 01/29: Continue current management. Benadryl for allergies 01/30: Continue current plan of care. 01/31: continues to ask for lots of PRNs. no change in presentation. 01/28 mild anemia and hyponatremia; trend. tegretol level 10.3. 02/01: series of abnormal and dynamic EKGs; today's WNL. cardiology consult requested for opinion. will start lithium pending cards opinion re EKG series. no change in presentation. 02/02: appreciate cardiology consultation and opinion. echocardiogram ordered. lithium started. appears better able to tolerate longer interaction today. 02/03: improved ability to tolerate social engagements continues. feels lithium has been helpful. akathisia likely. decrease haldol 02/10/10 to 5 BID and add thorazine 25 BID at 0900 and 1300. Reason for continued inpatient stay Substantial Risk for: inability to function and rapid decompensation Time Spent With Patient Time: Total time managing care of this patient today __35__ minutes.
[2023-02-03] MEDS: hydrOXYzine HCL 25 MG TABLET PO (15:16)
[2023-02-03] MEDS: diphenhydrAMINE HCL 25 MG CAPSULE 50 MG PO (18:17)
[2023-02-03] MEDS: Haloperidol Lactate Oral Conc 10 MG/5 ML ORAL.CONC 5 MG PO (20:01)
[2023-02-03] MEDS: traZODone HCL 50 MG TABLET PO (20:01)
[2023-02-03 20:05] VITALS: BP 126/74; PULSE 95; RESP 18; TEMP 36.9; O2SAT 95
[2023-02-04 08:30] VITALS: BP 125/69; PULSE 93; RESP 18; TEMP 37; O2SAT 96
[2023-02-04] MEDS: Haloperidol Lactate Oral Conc 10 MG/5 ML ORAL.CONC 5 MG PO (09:38)
[2023-02-04] MEDS: Lithium Carbonate ER 300 MG TABLET.ER 600 MG PO ×2 (09:38→20:59)
[2023-02-04] MEDS: carBAMazepine 200 MG TABLET 400 MG PO ×2 (09:38→20:58)
[2023-02-04] MEDS: Folic Acid 1 MG TABLET PO (09:38)
[2023-02-04] MEDS: Thiamine HCL 100 MG TABLET PO (09:38)
[2023-02-04] MEDS: Benztropine Mesylate 1 MG TABLET PO ×2 (09:39→20:59)
[2023-02-04] MEDS: Acetaminophen 325 MG TABLET 650 MG PO ×2 (09:46→15:40)
[2023-02-04] MEDS: Ibuprofen 800 MG TABLET PO ×2 (11:24→20:22)
--- NOTE | 2023-02-04 13:31 | P.PNPSI_ITS ---
Subjective Subjective Date of Service: 02/04/23 Reason For Visit: Psychosis Interim History: pt calm and cooperative during interview, pacing the halls, continues better related. no complaints or requests. was informed of thorazine dosing increase due to recrudescent psychotic Sx since haldol dosing decrease, seemed agreeable to it. per staff, increase in self-dialoguing. outburst yesterday evening, threw pitcher of water on floor 2/2 AH. eloped this afternoon and was brought back by police. Mental Status Exam Mental Status Exam Narrative: adequately dressed and groomed. up and about the unit, pacing. cooperative. speech nml in amount, nml latency. linear, logical. affect more flexible, normo-intense, non-labile. no SI/HI/AVH expressed, but behaviors c/w at the least AH. Diagnostics Vital Signs (24Hr): Vital Signs - 24 hr 02/03/23 20:05 Temperature 98.4 F Pulse Rate 95 Respiratory Rate 18 Blood Pressure 126/74 Pulse Oximetry 95 Oxygen Delivery Method Room Air BMI result Body Mass Index 27.8 Labs 01/28/23 15:41 01/28/23 15:41 Medications Medications Current Medications Acetaminophen (Acetaminophen 325 Mg Tablet) 650 mg PO Q6H PRN PRN Reason: Headache/Pain Mild Scale (1-3) Last Admin: 02/04/23 09:46 Dose: 650 mg Al Hydroxide/Mg Hydroxide (Magnesium Hydrox/Alum Hydrox 30 Ml Oral.Susp) 30 ml PO Q6H PRN PRN Reason: Heartburn/Nausea Last Admin: 01/29/23 22:57 Dose: 30 ml Benzocaine (Throat Lozenge, Medicated Lozenge) 1 lozenge MUCOUS MEM Q2H PRN PRN Reason: Sore Throat Last Admin: 01/29/23 19:25 Dose: 1 lozenge Benztropine Mesylate (Benztropine Mesylate 1 Mg Tablet) 1 mg PO BID LEONOR Last Admin: 02/04/23 09:39 Dose: 1 mg Carbamazepine (Carbamazepine 200 Mg Tablet) 400 mg PO BID LEONOR Last Admin: 02/04/23 09:38 Dose: 400 mg Chlorpromazine HCl (Chlorpromazine Hcl 25 Mg Tablet) 50 mg PO Q4H PRN PRN Reason: agitation Last Admin: 02/03/23 17:28 Dose: 50 mg Chlorpromazine HCl (Chlorpromazine Hcl 100 Mg Tablet) 200 mg PO BEDTIME LEONOR Chlorpromazine HCl (Chlorpromazine Hcl 100 Mg Tablet) 100 mg PO BID@0900,1300 [facility] Clonidine HCl (Clonidine Hcl 0.1 Mg Tablet) 0.1 mg PO Q2H PRN; Protocol PRN Reason: agitation/signs of opioid withdrawal Last Admin: 02/01/23 21:26 Dose: 0.1 mg Dicyclomine HCl (Dicyclomine Hcl 10 Mg Capsule) 10 mg PO QIDACHS PRN PRN Reason: cramps Last Admin: 01/26/23 21:36 Dose: 10 mg Diphenhydramine HCl (Diphenhydramine Hcl 25 Mg Capsule) 50 mg PO Q6H PRN PRN Reason: Allergic Symptoms Last Admin: 02/03/23 18:17 Dose: 50 mg Folic Acid (Folic Acid 1 Mg Tablet) 1 mg PO DAILY LEONOR Last Admin: 02/04/23 09:38 Dose: 1 mg Haloperidol Lactate (Haloperidol Lactate 5 Mg/Ml Vial) 7.5 mg IM BID PRN PRN Reason: if PO refused Last Admin: 01/20/23 09:23 Dose: 7.5 mg Haloperidol Lactate (Haloperidol Lactate Oral Conc 10 Mg/5 Ml Oral.Conc) 5 mg PO BID [facility] Last Admin: 02/04/23 09:38 Dose: 5 mg Hydroxyzine HCl (Hydroxyzine Hcl 25 Mg Tablet) 25 mg PO Q6H PRN PRN Reason: Anxiety Last Admin: 02/03/23 15:16 Dose: 25 mg Ibuprofen (Ibuprofen 800 Mg Tablet) 800 mg PO TID PRN PRN Reason: back pain Last Admin: 02/04/23 11:24 Dose: 800 mg [place] Carbonate ([place] Carbonate Er 300 Mg Tablet.Er) 600 mg PO BID [facility] Last Admin: 02/04/23 09:38 Dose: 600 mg Magnesium Hydroxide (Milk Of Magnesia 30 Ml Oral.Susp) 30 ml PO DAILY PRN PRN Reason: Constipation Multi-Ingred Cream/Lotion/Oil/Oint (Mineral Oil/Petrolatum,White 106 Gm Tube) 1 appl TOPICAL BID [facility]; Protocol Last Admin: 02/04/23 13:00 Dose: Not Given Nicotine (Nicotine 21 Mg Patch.Td24) 21 mg TRANSDERMA DAILY PRN PRN Reason: smoking cessation Last Admin: 01/15/23 16:06 Dose: 21 mg Nicotine Polacrilex (Nicotine Polacrilex 2 Mg Gum) 4 mg BUCCAL Q2H PRN PRN Reason: nicotine cravings Ondansetron HCl (Ondansetron Odt 4 Mg Tab.Rapdis) 4 mg TRANSLINGU Q6H PRN PRN Reason: Nausea and Vomiting Last Admin: 01/28/23 14:44 Dose: 4 mg Thiamine HCl (Thiamine Hcl 100 Mg Tablet) 100 mg PO DAILY LEONOR Last Admin: 02/04/23 09:38 Dose: 100 mg Trazodone HCl (Trazodone Hcl 50 Mg Tablet) 50 mg PO BEDTIME MRX1 PRN PRN Reason: Insomnia Last Admin: 02/03/23 20:01 Dose: 50 mg Allergies Allergies Allergy/AdvReac Type Severity Reaction Status Date / Time morphine [MORPHINE] AdvReac Unknown NAUSEA Verified 12/10/22 19:56 Assessment & Plan Assessment & Plan (1) Nonspecific ST-T wave electrocardiographic changes: Status: Acute Code(s): R94.31 - Abnormal electrocardiogram [ECG] [EKG] Assessment and Plan: Patient with nonspecific ST T wave changes which had dynamic. Unclear significance of these. He has no cardiac symptoms whatsoever. Normal physical exam. The septal Q-waves noted on EKG few days ago and not on yesterday's EKG on most likely due to lead placement and not suggestive for septal infarct. Would suggest an echocardiogram as cooking can be associated with cardiomyopathy. If this is within normal limits no further workup is indicated. There is no issues with use of lithium if it is absolutely necessary to use this to treat his psychiatric condition. No further 0 or other workup is indicated. (2) Cocaine use disorder: Status: Acute Code(s): F14.10 - Cocaine abuse, uncomplicated (3) Schizoaffective disorder, bipolar type: Status: Acute Code(s): F25.0 - Schizoaffective disorder, bipolar type (4) Opioid use disorder: Status: Acute Code(s): F11.90 - Opioid use, unspecified, uncomplicated Plan 12/24: attempt to give anti-psychotics. comfort meds for opioid and cocaine withdrawal. 12/25: refusing medications. period of agitation last night slamming doors and yelling (presumably @). continue current mgmt. 12/26: refusing meds. binging and purging. floridly psychotic. 12/27: had meds last night for sleep, per his request. schedule all haldol tonight with ativan and cogentin. a bit more interactive today, remains delayed and distracted. no binging/purging behaviors or agitated behaviors described by RN report today. 12/28: refused meds last night. Today asks for meds for sx mgt- aggressive today- threw two coffee cups. Begin Depakote 250 mg bid. 12/29: got multiple meds last NOC and overnight per his request. slept 2 hours. refusing meds this morning. commitment paperwork completed. 3-day notice expires tomorrow. c/o opioid craving, asked for methadone. methadone 30 mg daily started today. 12/30: filed for commitment today. haldol and ativan per his request last night. appears in disbelief that he will not be discharged today. 12/31: demanding to leave, getting agitated, banging on nursing station, slamming doors in his room. given IMs x 2, haldol 10 ativan 2 benadryl 50 for first and thorazine 100 for second. 01/01: Remains unpredictable and irritable. Refusing scheduled medications. Section 7/ filed. 01/02: Continue current management. 01/03: refusing meds. irritable, labile. periods of agitation. continue current mgmt, awaiting hearing for . 01/04: refusing meds. irritable, labile. periods of agitation. continue current mgmt, though pt is refusing meds. 01/05: thought-blocked. denies mental illness or need for medications. offer medications. hearing tomorrow. 01/06: committed and ordered medications at hearing. 06/12/20 [facility] DC summary reviewd, pt was discharged on VPA, zyprexa, haldol. 03/14/20 DC summary reviewed, pt discharged on zyprexa, haldol. pt unable to comprehend result, agitated not to be leaving today. 01/07: copy of court order on unit, will order meds accordingly today. no change in presentation. 01/08: Continue current regimen and plans 01/09: Continue current plans and regimen. Discontinue contingent IM Ativan if Depakote refused 01/10: Continue current regimen and plans. 01/11: DC VPA, start tegretol per pt preference. ativan 2 mg IM for refusal of tegretol. continue haldol PO/IM orders. improved from last week. less agitated, a bit more organized and engaging. 01/12: appears more disorganized again today, trouble engaging. refused PO meds last night but did take tegretol PO this morning. 01/13: continues disorganized, difficulty expressing himself. refusing PO meds since yesterday morning. slept 10 hours last night, however 01/14: intermittently taking meds PO versus IM. improved behavior from prior to med order, but remains floridly psychotic. continue current mgmt. 01/16/2023: No changes to current plan 01/17: more compliant with tegretol in recent days, still getting haldol IM. no change in presentation. continue current mgmt. 01/18: remains psychotic, labile. increase tegretol to 300 mg BID. 01/19: continues more aggressive and labile today. increase haldol to 10 BID with back-up IM of 7.5 mg. 01/20: more calm today,periods of agitation, however, in the past 24H. continue current mgmt. declines to change scheduled haldol to thorazine (proposed by MD in the hope he would in order to spare him the IMs). 01/21 continue tx. 01/22 writing for thorazine at bed- mr x1 and check ekg given other antipsychotics on board 01/23 agreed to ekg today, added 1pm dose of 5mg haldol 01/24: taking meds PO, still suffering from AH, possibly VH. perhaps trending more calm, but clearly still periods of agitation in the past several days. 01/25: labile, paranoid delusions. informed staff he experiences AH, mumbles recently. increase tegretol to 400 BID, make IR formulation as he has been chewing the pills. 01/26: more calm today. continue current mgmt. 01/27: continues more calm. some staff concerned for akathisia due to pacing and number of PRNs taken, but appears to be doing less walking than he had been before, does not appear restless or uncomfortable. continue current mgmt, check tegretol level 2 weeks after dose change (02/08). 01/28: stable presentation. intermittent sleep disturbance. continue current mgmt. 01/29: Continue current management. Benadryl for allergies 01/30: Continue current plan of care. 01/31: continues to ask for lots of PRNs. no change in presentation. 01/28 mild anemia and hyponatremia; trend. tegretol level 10.3. 02/01: series of abnormal and dynamic EKGs; today's WNL. cardiology consult requested for opinion. will start lithium pending cards opinion re EKG series. no change in presentation. 02/02: appreciate cardiology consultation and opinion. echocardiogram ordered. lithium started. appears better able to tolerate longer interaction today. 02/03: improved ability to tolerate social engagements continues. feels lithium has been helpful. akathisia likely. decrease haldol 02/10/10 to 5 BID and add thorazine 25 BID at 0900 and 1300. 02/04: clear uptick in psychotic.manic behavior yesterday after haldol dose decrease. eloped today. increase thorazine to 100/100/200 with PRNS available. Reason for continued inpatient stay Substantial Risk for: harm to self, harm to others, inability to function and rapid decompensation Time Spent With Patient Time: Total time managing care of this patient today __35__ minutes.
[2023-02-04] MEDS: chlorproMAZINE HCl 100 MG TABLET PO ×2 (13:35→16:55)
--- NOTE | 2023-02-04 13:40 | PM.EVENT ---
Event Note Date of Service: 02/04/23 Event Note: Pt seen for medical physical after eloping from [facility] earlier in the day. Patient was shirtless, shoeless, and seen running down the sidewalk in the rain. He was in the community approximately 30 minutes before being picked up by the police and and brought back to the psych unit. Patient seen and evaluated in his room. Patient appears calm, cooperative, eating a sandwich. Patient has no acute medical complaints at this time. Denies chest pain/pressure, palpitations. No shortness of breath. Denies fever, chills, nausea, vomiting, abdominal pain. Denies any musculoskeletal pain. Physical exam completely unremarkable. Lungs CTA. S1, S2 noted, RRR. Abdomen soft, non-tender. Cranial nerves II-XII grossly intact. Motor grossly intact. No focal deficits noted. No lesions, cuts, abrasions noted to patient's head, face, upper or lower extremities, torso, or feet. Will sign off for now. Please re-consult with any acute questions or concerns. Time Spent With Patient Time: Total time managing care of this patient today ____ minutes.
[2023-02-04] MEDS: diphenhydrAMINE HCL 25 MG CAPSULE 50 MG PO (18:44)
--- NOTE | 2023-02-04 19:58 | PC.NURSE ---
Miguel Ángel casillas from the unit at 1230 made it outside, was brought back by EMS around 1320. Upon assessment he stated I just wanted to smoke a cigarette. Head to toe done, vital signs obtained, skin appears to be intact, no bruises noted. Seen by hospitalist, labs ordered. He denied pain, reports Hearing voices. Dr. Pemberton aware, as well as Director of Behavioral Health [facility] and [employer] online community manager.
[2023-02-04 20:45] VITALS: BP 147/68; PULSE 106; RESP 17; TEMP 36.7; O2SAT 98
[2023-02-04] MEDS: chlorproMAZINE HCl 100 MG TABLET 200 MG PO (20:59)
[2023-02-04] MEDS: Haloperidol Lactate 5 MG/ML VIAL 7.5 MG IM (21:04)
[2023-02-05] MEDS: Thiamine HCL 100 MG TABLET PO (09:20)
[2023-02-05] MEDS: Benztropine Mesylate 1 MG TABLET PO ×2 (09:20→20:51)
[2023-02-05] MEDS: chlorproMAZINE HCl 100 MG TABLET PO ×4 (09:20→23:52)
[2023-02-05] MEDS: Lithium Carbonate ER 300 MG TABLET.ER 600 MG PO ×2 (09:20→20:50)
[2023-02-05] MEDS: Folic Acid 1 MG TABLET PO (09:20)
[2023-02-05] MEDS: carBAMazepine 200 MG TABLET 400 MG PO ×2 (09:20→20:51)
[2023-02-05] MEDS: Acetaminophen 325 MG TABLET 650 MG PO ×3 (09:21→21:48)
[2023-02-05] MEDS: Haloperidol Lactate Oral Conc 10 MG/5 ML ORAL.CONC 5 MG PO ×2 (09:21→20:51)
[2023-02-05 09:35] VITALS: BP 118/76; PULSE 108; TEMP 36.6; O2SAT 97
[2023-02-05] MEDS: Ibuprofen 800 MG TABLET PO ×2 (10:20→20:50)
[2023-02-05 17:07] LABS: Amphetamine Screen Urine Not Detected (Not Detect); Barbiturates, Urine Not Detected (Not Detect); Benzodiazepines Screen Urine Not Detected (Not Detect); Cannabinoid Screen Urine Not Detected (Not Detect); Cocaine Screen Urine Not Detected (Not Detect); Fentanyl, urine Not Detected (Not Detect); Opiate Screen Urine Not Detected (Not Detect); Phencyclidine Screen Urine Not Detected (Not Detect)
[2023-02-05] MEDS: diphenhydrAMINE HCL 25 MG CAPSULE 50 MG PO ×2 (19:04→21:01)
--- NOTE | 2023-02-05 20:45 | HO.PSYCHPN ---
Subjective Subjective Date of Service: 02/05/23 Reason For Visit: Psychosis Interim History: stable presentation. shrugs when being asked about his elopement yesterday. per staff, refused PO haldol last NOC, took all other meds PO. took all meds PO this morning. no notable behaviors since elopement. Mental Status Exam Mental Status Exam Narrative: adequately dressed and groomed. up and about the unit, pacing. cooperative. speech nml in amount, nml latency. linear, logical. affect more flexible, normo-intense, non-labile. no SI/HI/AVH expressed, but behaviors c/w at the least AH. Diagnostics Vital Signs (24Hr): Vital Signs - 24 hr 02/05/23 09:35 Temperature 97.8 F Pulse Rate 108 H Blood Pressure 118/76 Pulse Oximetry 97 Oxygen Delivery Method Room Air BMI result Body Mass Index 27.8 Labs 01/28/23 15:41 01/28/23 15:41 Labs: Laboratory Results - last 48 hr 02/05/23 16:25 Urine Opiates Screen Not Detected Urine Fentanyl Screen Not Detected Ur Barbiturates Screen Not Detected Ur Phencyclidine Scrn Not Detected Ur Amphetamines Screen Not Detected U Benzodiazepines Scrn Not Detected Urine Cocaine Screen Not Detected U Marijuana (THC) Screen Not Detected Medications Medications Current Medications Acetaminophen (Acetaminophen 325 Mg Tablet) 650 mg PO Q6H PRN PRN Reason: Headache/Pain Mild Scale (1-3) Last Admin: 02/05/23 15:21 Dose: 650 mg Al Hydroxide/Mg Hydroxide (Magnesium Hydrox/Alum Hydrox 30 Ml Oral.Susp) 30 ml PO Q6H PRN PRN Reason: Heartburn/Nausea Last Admin: 01/29/23 22:57 Dose: 30 ml Benzocaine (Throat Lozenge, Medicated Lozenge) 1 lozenge MUCOUS MEM Q2H PRN PRN Reason: Sore Throat Last Admin: 01/29/23 19:25 Dose: 1 lozenge Benztropine Mesylate (Benztropine Mesylate 1 Mg Tablet) 1 mg PO BID LEONOR Last Admin: 02/05/23 09:20 Dose: 1 mg Carbamazepine (Carbamazepine 200 Mg Tablet) 400 mg PO BID LEONOR Last Admin: 02/05/23 09:20 Dose: 400 mg Chlorpromazine HCl (Chlorpromazine Hcl 100 Mg Tablet) 200 mg PO BEDTIME [facility] Last Admin: 02/04/23 20:59 Dose: 200 mg Chlorpromazine HCl (Chlorpromazine Hcl 100 Mg Tablet) 100 mg PO BID@0900,1300 [facility] Last Admin: 02/05/23 12:08 Dose: 100 mg Chlorpromazine HCl (Chlorpromazine Hcl 100 Mg Tablet) 100 mg PO Q4H PRN PRN Reason: agitation/anxiety Last Admin: 02/05/23 18:23 Dose: 100 mg Clonidine HCl (Clonidine Hcl 0.1 Mg Tablet) 0.1 mg PO Q2H PRN; Protocol PRN Reason: agitation/signs of opioid withdrawal Last Admin: 02/01/23 21:26 Dose: 0.1 mg Diphenhydramine HCl (Diphenhydramine Hcl 25 Mg Capsule) 50 mg PO Q6H PRN PRN Reason: Allergic Symptoms Last Admin: 02/05/23 19:04 Dose: 50 mg Folic Acid (Folic Acid 1 Mg Tablet) 1 mg PO DAILY [facility] Last Admin: 02/05/23 09:20 Dose: 1 mg Haloperidol Lactate (Haloperidol Lactate 5 Mg/Ml Vial) 7.5 mg IM BID PRN PRN Reason: if PO refused Last Admin: 02/04/23 21:04 Dose: 7.5 mg Haloperidol Lactate (Haloperidol Lactate Oral Conc 10 Mg/5 Ml Oral.Conc) 5 mg PO BID [facility] Last Admin: 02/05/23 09:21 Dose: 5 mg Ibuprofen (Ibuprofen 800 Mg Tablet) 800 mg PO TID PRN PRN Reason: back pain Last Admin: 02/05/23 10:20 Dose: 800 mg [place] Carbonate ([place] Carbonate Er 300 Mg Tablet.Er) 600 mg PO BID [facility] Last Admin: 02/05/23 09:20 Dose: 600 mg Magnesium Hydroxide (Milk Of Magnesia 30 Ml Oral.Susp) 30 ml PO DAILY PRN PRN Reason: Constipation Multi-Ingred Cream/Lotion/Oil/Oint (Mineral Oil/Petrolatum,White 106 Gm Tube) 1 appl TOPICAL BID [facility]; Protocol Last Admin: 02/05/23 09:24 Dose: Not Given Nicotine (Nicotine 21 Mg Patch.Td24) 21 mg TRANSDERMA DAILY PRN PRN Reason: smoking cessation Last Admin: 01/15/23 16:06 Dose: 21 mg Nicotine Polacrilex (Nicotine Polacrilex 2 Mg Gum) 4 mg BUCCAL Q2H PRN PRN Reason: nicotine cravings Ondansetron HCl (Ondansetron Odt 4 Mg Tab.Rapdis) 4 mg TRANSLINGU Q6H PRN PRN Reason: Nausea and Vomiting Last Admin: 01/28/23 14:44 Dose: 4 mg Thiamine HCl (Thiamine Hcl 100 Mg Tablet) 100 mg PO DAILY LEONOR Last Admin: 02/05/23 09:20 Dose: 100 mg Trazodone HCl (Trazodone Hcl 50 Mg Tablet) 50 mg PO BEDTIME MRX1 PRN PRN Reason: Insomnia Last Admin: 02/03/23 20:01 Dose: 50 mg Allergies Allergies Allergy/AdvReac Type Severity Reaction Status Date / Time morphine [MORPHINE] AdvReac Unknown NAUSEA Verified 12/10/22 19:56 Assessment & Plan Assessment & Plan (1) Nonspecific ST-T wave electrocardiographic changes: Status: Acute Code(s): R94.31 - Abnormal electrocardiogram [ECG] [EKG] Assessment and Plan: Patient with nonspecific ST T wave changes which had dynamic. Unclear significance of these. He has no cardiac symptoms whatsoever. Normal physical exam. The septal Q-waves noted on EKG few days ago and not on yesterday's EKG on most likely due to lead placement and not suggestive for septal infarct. Would suggest an echocardiogram as cooking can be associated with cardiomyopathy. If this is within normal limits no further workup is indicated. There is no issues with use of lithium if it is absolutely necessary to use this to treat his psychiatric condition. No further 0 or other workup is indicated. (2) Cocaine use disorder: Status: Acute Code(s): F14.10 - Cocaine abuse, uncomplicated (3) Schizoaffective disorder, bipolar type: Status: Acute Code(s): F25.0 - Schizoaffective disorder, bipolar type (4) Opioid use disorder: Status: Acute Code(s): F11.90 - Opioid use, unspecified, uncomplicated Plan 12/24: attempt to give anti-psychotics. comfort meds for opioid and cocaine withdrawal. 12/25: refusing medications. period of agitation last night slamming doors and yelling (presumably @). continue current mgmt. 12/26: refusing meds. binging and purging. floridly psychotic. 12/27: had meds last night for sleep, per his request. schedule all haldol tonight with ativan and cogentin. a bit more interactive today, remains delayed and distracted. no binging/purging behaviors or agitated behaviors described by RN report today. 12/28: refused meds last night. Today asks for meds for sx mgt- aggressive today-threw two coffee cups. Begin Depakote 250 mg bid. 12/29: got multiple meds last NOC and overnight per his request. slept 2 hours. refusing meds this morning. commitment paperwork completed. 3-day notice expires tomorrow. c/o opioid craving, asked for methadone. methadone 30 mg daily started today. 12/30: filed for commitment today. haldol and ativan per his request last night. appears in disbelief that he will not be discharged today. 12/31: demanding to leave, getting agitated, banging on nursing station, slamming doors in his room. given IMs x 2, haldol 10 ativan 2 benadryl 50 for first and thorazine 100 for second. 01/01: Remains unpredictable and irritable. Refusing scheduled medications. Section 7/8 filed. 01/02: Continue current management. 01/03: refusing meds. irritable, labile. periods of agitation. continue current mgmt, awaiting hearing for . 01/04: refusing meds. irritable, labile. periods of agitation. continue current mgmt, though pt is refusing meds. 01/05: thought-blocked. denies mental illness or need for medications. offer medications. hearing tomorrow. 01/06: committed and ordered medications at hearing. 06/12/20 [facility] [place], pt was discharged on VPA, zyprexa, haldol. 03/14/20 DC summary reviewed, pt discharged on zyprexa, haldol. pt unable to comprehend result, agitated not to be leaving today. 01/07: copy of court order on unit, will order meds accordingly today. no change in presentation. 2: Continue current regimen and plans 01/09: Continue current plans and regimen. Discontinue contingent IM Ativan if Depakote refused 01/10: Continue current regimen and plans. 01/11: DC VPA, start tegretol per pt preference. ativan 2 mg IM for refusal of tegretol. continue haldol PO/IM orders. improved from last week. less agitated, a bit more organized and engaging. 01/12: appears more disorganized again today, trouble engaging. refused PO meds last night but did take tegretol PO this morning. 01/13: continues disorganized, difficulty expressing himself. refusing PO meds since yesterday morning. slept 10 hours last night, however 01/14: intermittently taking meds PO versus IM. improved behavior from prior to med order, but remains floridly psychotic. continue current mgmt. 01/16/2023: No changes to current plan 01/17: more compliant with tegretol in recent days, still getting haldol IM. no change in presentation. continue current mgmt. 01/18: remains psychotic, labile. increase tegretol to 300 mg BID. 01/19: continues more aggressive and labile today. increase haldol to 10 BID with back-up IM of 7.5 mg. 01/20: more calm today,periods of agitation, however, in the past 24H. continue current mgmt. declines to change scheduled haldol to thorazine (proposed by MD in the hope he would in order to spare him the IMs). 01/21 continue tx. 01/22 writing for thorazine at bed- mr x1 and check ekg given other antipsychotics on board 01/23 agreed to ekg today, added 1pm dose of 5mg haldol 01/24: taking meds PO, still suffering from AH, possibly VH. perhaps trending more calm, but clearly still periods of agitation in the past several days. 01/25: labile, paranoid delusions. informed staff he experiences AH, mumbles recently. increase tegretol to 400 BID, make IR formulation as he has been chewing the pills. 01/26: more calm today. continue current mgmt. 01/27: continues more calm. some staff concerned for akathisia due to pacing and number of PRNs taken, but appears to be doing less walking than he had been before, does not appear restless or uncomfortable. continue current mgmt, check tegretol level 2 weeks after dose change (02/08). 01/28: stable presentation. intermittent sleep disturbance. continue current mgmt. 01/29: Continue current management. Benadryl for allergies 01/30: Continue current plan of care. 01/31: continues to ask for lots of PRNs. no change in presentation. 01/28 mild anemia and hyponatremia; trend. tegretol level 10.3. 02/01: series of abnormal and dynamic EKGs; today's WNL. cardiology consult requested for opinion. will start lithium pending cards opinion re EKG series. no change in presentation. 02/02: appreciate cardiology consultation and opinion. echocardiogram ordered. lithium started. appears better able to tolerate longer interaction today. 02/03: improved ability to tolerate social engagements continues. feels lithium has been helpful. akathisia likely. decrease haldol 02/10/10 to 5 BID and add thorazine 25 BID at 0900 and 1300. 02/04: clear uptick in psychotic.manic behavior yesterday after haldol dose decrease. eloped today. increase thorazine to 100/100/200 with PRNS available. 02/05: no concerning behaviors since elopement yesterday. refused PO haldol last night, otherwise med compliant. Reason for continued inpatient stay Substantial Risk for: harm to self, harm to others, inability to function and rapid decompensation Time Spent With Patient Time: Total time managing care of this patient today ____ minutes.
[2023-02-05 20:49] VITALS: BP 131/73; PULSE 76; RESP 16; TEMP 36.4; O2SAT 98
[2023-02-05] MEDS: traZODone HCL 50 MG TABLET PO (20:50)
[2023-02-05] MEDS: chlorproMAZINE HCl 100 MG TABLET 200 MG PO (20:51)
[2023-02-06] MEDS: Ibuprofen 800 MG TABLET PO (02:21)
[2023-02-06] MEDS: Acetaminophen 325 MG TABLET 650 MG PO ×2 (05:04→18:14)
[2023-02-06 07:50] VITALS: BP 116/62; PULSE 76; TEMP 36.2; O2SAT 98
[2023-02-06] MEDS: Thiamine HCL 100 MG TABLET PO (08:02)
[2023-02-06] MEDS: Folic Acid 1 MG TABLET PO (08:02)
[2023-02-06] MEDS: carBAMazepine 200 MG TABLET 400 MG PO ×2 (08:02→21:37)
[2023-02-06] MEDS: Benztropine Mesylate 1 MG TABLET PO ×2 (08:02→21:38)
[2023-02-06] MEDS: Lithium Carbonate ER 300 MG TABLET.ER 600 MG PO ×2 (08:02→21:37)
[2023-02-06] MEDS: chlorproMAZINE HCl 100 MG TABLET PO (08:03)
[2023-02-06] MEDS: Haloperidol Lactate Oral Conc 10 MG/5 ML ORAL.CONC 5 MG PO ×2 (08:03→21:38)
[2023-02-06 11:07] LABS: Lithium 0.62 mmol/L (0.60-1.20)
--- NOTE | 2023-02-06 15:26 | HO.PSYCHPN ---
Subjective Subjective Date of Service: 02/06/23 Reason For Visit: Psychosis Interim History: found sleeping in bed. no questions or complaints. per staff, taking meds. pacing, talking to self. Mental Status Exam Mental Status Exam Narrative: adequately dressed and groomed. in bed sleeping, easily roused. cooperative. speech nml in amount, nml latency. linear, logical. affect more flexible, normo-intense, non-labile. no SI/HI/AVH expressed, but behaviors c/w at the least AH. Diagnostics Vital Signs (24Hr): Vital Signs - 24 hr 02/05/23 20:49 02/06/23 07:50 Temperature 97.6 F 97.2 F Pulse Rate 76 76 Respiratory Rate 16 Blood Pressure 131/73 116/62 Pulse Oximetry 98 98 Oxygen Delivery Method Room Air Room Air BMI result Body Mass Index 27.8 Labs 01/28/23 15:41 01/28/23 15:41 Labs: Laboratory Results - last 48 hr 02/05/23 02/06/23 16:25 07:10 Urine Opiates Screen Not Detected Urine Fentanyl Screen Not Detected Ur Barbiturates Screen Not Detected Ur Phencyclidine Scrn Not Detected Ur Amphetamines Screen Not Detected U Benzodiazepines Scrn Not Detected [place] 0.62 Urine Cocaine Screen Not Detected U Marijuana (THC) Screen Not Detected Medications Medications Current Medications Acetaminophen (Acetaminophen 325 Mg Tablet) 650 mg PO Q6H PRN PRN Reason: Headache/Pain Mild Scale (1-3) Last Admin: 02/06/23 05:04 Dose: 650 mg Al Hydroxide/Mg Hydroxide (Magnesium Hydrox/Alum Hydrox 30 Ml Oral.Susp) 30 ml PO Q6H PRN PRN Reason: Heartburn/Nausea Last Admin: 01/29/23 22:57 Dose: 30 ml Benzocaine (Throat Lozenge, Medicated Lozenge) 1 lozenge MUCOUS MEM Q2H PRN PRN Reason: Sore Throat Last Admin: 01/29/23 19:25 Dose: 1 lozenge Benztropine Mesylate (Benztropine Mesylate 1 Mg Tablet) 1 mg PO BID [facility] Last Admin: 02/06/23 08:02 Dose: 1 mg Carbamazepine (Carbamazepine 200 Mg Tablet) 400 mg PO BID [facility] Last Admin: 02/06/23 08:02 Dose: 400 mg Chlorpromazine HCl (Chlorpromazine Hcl 100 Mg Tablet) 200 mg PO BEDTIME [facility] Last Admin: 02/05/23 20:51 Dose: 200 mg Chlorpromazine HCl (Chlorpromazine Hcl 100 Mg Tablet) 100 mg PO BID@0900,1300 [facility] Last Admin: 02/06/23 08:03 Dose: 100 mg Chlorpromazine HCl (Chlorpromazine Hcl 100 Mg Tablet) 100 mg PO Q4H PRN PRN Reason: agitation/anxiety Last Admin: 02/05/23 23:52 Dose: 100 mg Clonidine HCl (Clonidine Hcl 0.1 Mg Tablet) 0.1 mg PO Q2H PRN; Protocol PRN Reason: agitation/signs of opioid withdrawal Last Admin: 02/01/23 21:26 Dose: 0.1 mg Diphenhydramine HCl (Diphenhydramine Hcl 25 Mg Capsule) 50 mg PO Q6H PRN PRN Reason: Allergic Symptoms Last Admin: 02/05/23 21:01 Dose: 50 mg Folic Acid (Folic Acid 1 Mg Tablet) 1 mg PO DAILY [facility] Last Admin: 02/06/23 08:02 Dose: 1 mg Haloperidol Lactate (Haloperidol Lactate 5 Mg/Ml Vial) 7.5 mg IM BID PRN PRN Reason: if PO refused Last Admin: 02/04/23 21:04 Dose: 7.5 mg Haloperidol Lactate (Haloperidol Lactate Oral Conc 10 Mg/5 Ml Oral.Conc) 5 mg PO BID [facility] Last Admin: 02/06/23 08:03 Dose: 5 mg Ibuprofen (Ibuprofen 800 Mg Tablet) 800 mg PO TID PRN PRN Reason: back pain Last Admin: 02/06/23 02:21 Dose: 800 mg [place] Carbonate ([place] Carbonate Er 300 Mg Tablet.Er) 600 mg PO BID [facility] Last Admin: 02/06/23 08:02 Dose: 600 mg Lorazepam (Lorazepam 2 Mg/Ml Vial) 2 mg IM BID PRN PRN Reason: refusal of tegretol Magnesium Hydroxide (Milk Of Magnesia 30 Ml Oral.Susp) 30 ml PO DAILY PRN PRN Reason: Constipation Multi-Ingred Cream/Lotion/Oil/Oint (Mineral Oil/Petrolatum,White 106 Gm Tube) 1 appl TOPICAL BID [facility]; Protocol Last Admin: 02/06/23 08:03 Dose: Not Given Nicotine (Nicotine 21 Mg Patch.Td24) 21 mg TRANSDERMA DAILY PRN PRN Reason: smoking cessation Last Admin: 01/15/23 16:06 Dose: 21 mg Nicotine Polacrilex (Nicotine Polacrilex 2 Mg Gum) 4 mg BUCCAL Q2H PRN PRN Reason: nicotine cravings Ondansetron HCl (Ondansetron Odt 4 Mg Tab.Rapdis) 4 mg TRANSLINGU Q6H PRN PRN Reason: Nausea and Vomiting Last Admin: 01/28/23 14:44 Dose: 4 mg Thiamine HCl (Thiamine Hcl 100 Mg Tablet) 100 mg PO DAILY [facility] Last Admin: 02/06/23 08:02 Dose: 100 mg Trazodone HCl (Trazodone Hcl 50 Mg Tablet) 50 mg PO BEDTIME MRX1 PRN PRN Reason: Insomnia Last Admin: 02/05/23 20:50 Dose: 50 mg Allergies Allergies Allergy/AdvReac Type Severity Reaction Status Date / Time morphine [MORPHINE] AdvReac Unknown NAUSEA Verified 12/10/22 19:56 Assessment & Plan Assessment & Plan (1) Nonspecific ST-T wave electrocardiographic changes: Status: Acute Code(s): R94.31 - Abnormal electrocardiogram [ECG] [EKG] Assessment and Plan: Patient with nonspecific ST T wave changes which had dynamic. Unclear significance of these. He has no cardiac symptoms whatsoever. Normal physical exam. The septal Q-waves noted on EKG few days ago and not on yesterday's EKG on most likely due to lead placement and not suggestive for septal infarct. Would suggest an echocardiogram as cooking can be associated with cardiomyopathy. If this is within normal limits no further workup is indicated. There is no issues with use of lithium if it is absolutely necessary to use this to treat his psychiatric condition. No further 0 or other workup is indicated. (2) Cocaine use disorder: Status: Acute Code(s): F14.10 - Cocaine abuse, uncomplicated (3) Schizoaffective disorder, bipolar type: Status: Acute Code(s): F25.0 - Schizoaffective disorder, bipolar type (4) Opioid use disorder: Status: Acute Code(s): F11.90 - Opioid use, unspecified, uncomplicated Plan 12/24: attempt to give anti-psychotics. comfort meds for opioid and cocaine withdrawal. 12/25: refusing medications. period of agitation last night slamming doors and yelling (presumably @). continue current mgmt. 12/26: refusing meds. binging and purging. floridly psychotic. 12/27: had meds last night for sleep, per his request. schedule all haldol tonight with ativan and cogentin. a bit more interactive today, remains delayed and distracted. no binging/purging behaviors or agitated behaviors described by RN report today. 12/28: refused meds last night. Today asks for meds for sx mgt- aggressive today-threw two coffee cups. Begin Depakote 250 mg bid. 12/29: got multiple meds last NOC and overnight per his request. slept 2 hours. refusing meds this morning. commitment paperwork completed. 3-day notice expires tomorrow. c/o opioid craving, asked for methadone. methadone 30 mg daily started today. 12/30: filed for commitment today. haldol and ativan per his request last night. appears in disbelief that he will not be discharged today. 12/31: demanding to leave, getting agitated, banging on nursing station, slamming doors in his room. given IMs x 2, haldol 10 ativan 2 benadryl 50 for first and thorazine 100 for second. 01/01: Remains unpredictable and irritable. Refusing scheduled medications. Section 7/ filed. 01/02: Continue current management. 01/03: refusing meds. irritable, labile. periods of agitation. continue current mgmt, awaiting hearing for . 01/04: refusing meds. irritable, labile. periods of agitation. continue current mgmt, though pt is refusing meds. 01/05: thought-blocked. denies mental illness or need for medications. offer medications. hearing tomorrow. 01/06: committed and ordered medications at hearing. 06/12/20 [facility] [place] summary reviewd, pt was discharged on VPA, zyprexa, haldol. 03/14/20 DC summary reviewed, pt discharged on zyprexa, haldol. pt unable to comprehend result, agitated not to be leaving today. 01/07: copy of court order on unit, will order meds accordingly today. no change in presentation. 01/08: Continue current regimen and plans 01/09: Continue current plans and regimen. Discontinue contingent IM Ativan if Depakote refused 01/10: Continue current regimen and plans. 01/11: DC VPA, start tegretol per pt preference. ativan 2 mg IM for refusal of tegretol. continue haldol PO/IM orders. improved from last week. less agitated, a bit more organized and engaging. 01/12: appears more disorganized again today, trouble engaging. refused PO meds last night but did take tegretol PO this morning. 01/13: continues disorganized, difficulty expressing himself. refusing PO meds since yesterday morning. slept 10 hours last night, however 01/14: intermittently taking meds PO versus IM. improved behavior from prior to med order, but remains floridly psychotic. continue current mgmt. 01/16/2023: No changes to current plan 01/17: more compliant with tegretol in recent days, still getting haldol IM. no change in presentation. continue current mgmt. 01/18: remains psychotic, labile. increase tegretol to 300 mg BID. 01/19: continues more aggressive and labile today. increase haldol to 10 BID with back-up IM of 7.5 mg. 01/20: more calm today,periods of agitation, however, in the past 24H. continue current mgmt. declines to change scheduled haldol to thorazine (proposed by MD in the hope he would in order to spare him the IMs). 01/21 continue tx. 01/22 writing for thorazine at bed- mr x1 and check ekg given other antipsychotics on board 01/23 agreed to ekg today, added 1pm dose of 5mg haldol 01/24: taking meds PO, still suffering from AH, possibly VH. perhaps trending more calm, but clearly still periods of agitation in the past several days. 01/25: labile, paranoid delusions. informed staff he experiences AH, mumbles recently. increase tegretol to 400 BID, make IR formulation as he has been chewing the pills. 01/26: more calm today. continue current mgmt. 01/27: continues more calm. some staff concerned for akathisia due to pacing and number of PRNs taken, but appears to be doing less walking than he had been before, does not appear restless or uncomfortable. continue current mgmt, check tegretol level 2 weeks after dose change (02/08). 01/28: stable presentation. intermittent sleep disturbance. continue current mgmt. 01/29: Continue current management. Benadryl for allergies 01/30: Continue current plan of care. 01/31: continues to ask for lots of PRNs. no change in presentation. 01/28 mild anemia and hyponatremia; trend. tegretol level 10.3. 02/01: series of abnormal and dynamic EKGs; today's WNL. cardiology consult requested for opinion. will start lithium pending cards opinion re EKG series. no change in presentation. 02/02: appreciate cardiology consultation and opinion. echocardiogram ordered. lithium started. appears better able to tolerate longer interaction today. 02/03: improved ability to tolerate social engagements continues. feels lithium has been helpful. akathisia likely. decrease haldol 02/10/10 to 5 BID and add thorazine 25 BID at 0900 and 1300. 02/04: clear uptick in psychotic.manic behavior yesterday after haldol dose decrease. eloped today. increase thorazine to 100/100/200 with PRNS available. 02/05: no concerning behaviors since elopement yesterday. refused PO haldol last night, otherwise med compliant. 02/06: med-compliant, no concerning behaviors. continue current mgmt. Reason for continued inpatient stay Substantial Risk for: harm to self, inability to function and rapid decompensation Time Spent With Patient Time: Total time managing care of this patient today ____ minutes.
[2023-02-06] MEDS: diphenhydrAMINE HCL 25 MG CAPSULE 50 MG PO (19:19)
[2023-02-06 19:24] VITALS: BP 139/77; PULSE 81; RESP 16; TEMP 36.5; O2SAT 98
[2023-02-06] MEDS: chlorproMAZINE HCl 100 MG TABLET 200 MG PO (20:19)
[2023-02-07] MEDS: Lithium Carbonate ER 300 MG TABLET.ER 600 MG PO ×2 (08:40→20:30)
[2023-02-07] MEDS: Thiamine HCL 100 MG TABLET PO (08:40)
[2023-02-07] MEDS: Folic Acid 1 MG TABLET PO (08:41)
[2023-02-07] MEDS: Benztropine Mesylate 1 MG TABLET PO ×2 (08:41→20:30)
[2023-02-07] MEDS: carBAMazepine 200 MG TABLET 400 MG PO ×2 (08:41→20:30)
[2023-02-07] MEDS: Haloperidol Lactate Oral Conc 10 MG/5 ML ORAL.CONC 5 MG PO ×2 (08:41→20:31)
[2023-02-07] MEDS: chlorproMAZINE HCl 100 MG TABLET PO ×3 (08:41→19:23)
[2023-02-07 08:50] VITALS: BP 116/73; PULSE 86; RESP 20; TEMP 36.7; O2SAT 99
[2023-02-07] MEDS: Acetaminophen 325 MG TABLET 650 MG PO ×3 (09:11→21:24)
[2023-02-07] MEDS: diphenhydrAMINE HCL 25 MG CAPSULE 50 MG PO ×2 (10:19→18:35)
--- NOTE | 2023-02-07 10:58 | PC.NURSE ---
Patient was approached and offered the flu vaccine. Patient declined at this time.
--- NOTE | 2023-02-07 13:54 | HO.PSYCHPN ---
Subjective Subjective Date of Service: 02/07/23 Reason For Visit: Psychosis Interim History: no change in presentation. more engageable, pacing. per staff had thorazine PRN @ 1pm yesterday. isolative. pacing. slept well. asking for tylenol for legs. Mental Status Exam Mental Status Exam Narrative: adequately dressed and groomed. up and about the unit pacing. cooperative. speech nml in amount, nml latency. linear, logical. affect more flexible, normo-intense, non-labile. no SI/HI/AVH expressed, but behaviors c/w at the least AH. Diagnostics Vital Signs (24Hr): Vital Signs - 24 hr 02/06/23 19:24 02/07/23 08:50 Temperature 97.7 F 98.1 F Pulse Rate 81 86 Respiratory Rate 16 20 Blood Pressure 139/77 116/73 Pulse Oximetry 98 99 Oxygen Delivery Method Room Air Room Air BMI result Body Mass Index 27.8 Labs 01/28/23 15:41 01/28/23 15:41 Labs: Laboratory Results - last 48 hr 02/05/23 02/06/23 16:25 07:10 Urine Opiates Screen Not Detected Urine Fentanyl Screen Not Detected Ur Barbiturates Screen Not Detected Ur Phencyclidine Scrn Not Detected Ur Amphetamines Screen Not Detected U Benzodiazepines Scrn Not Detected [place] 0.62 Urine Cocaine Screen Not Detected U Marijuana (THC) Screen Not Detected Medications Medications Current Medications Acetaminophen (Acetaminophen 325 Mg Tablet) 650 mg PO Q6H PRN PRN Reason: Headache/Pain Mild Scale (1-3) Last Admin: 02/07/23 09:11 Dose: 650 mg Al Hydroxide/Mg Hydroxide (Magnesium Hydrox/Alum Hydrox 30 Ml Oral.Susp) 30 ml PO Q6H PRN PRN Reason: Heartburn/Nausea Last Admin: 01/29/23 22:57 Dose: 30 ml Benzocaine (Throat Lozenge, Medicated Lozenge) 1 lozenge MUCOUS MEM Q2H PRN PRN Reason: Sore Throat Last Admin: 01/29/23 19:25 Dose: 1 lozenge Benztropine Mesylate (Benztropine Mesylate 1 Mg Tablet) 1 mg PO BID [facility] Last Admin: 02/07/23 08:41 Dose: 1 mg Carbamazepine (Carbamazepine 200 Mg Tablet) 400 mg PO BID [facility] Last Admin: 02/07/23 08:41 Dose: 400 mg Chlorpromazine HCl (Chlorpromazine Hcl 100 Mg Tablet) 200 mg PO BEDTIME [facility] Last Admin: 02/06/23 20:19 Dose: 200 mg Chlorpromazine HCl (Chlorpromazine Hcl 100 Mg Tablet) 100 mg PO BID@0900,1300 [facility] Last Admin: 02/07/23 13:22 Dose: 100 mg Chlorpromazine HCl (Chlorpromazine Hcl 100 Mg Tablet) 100 mg PO Q4H PRN PRN Reason: agitation/anxiety Last Admin: 02/05/23 23:52 Dose: 100 mg Clonidine HCl (Clonidine Hcl 0.1 Mg Tablet) 0.1 mg PO Q2H PRN; Protocol PRN Reason: agitation/signs of opioid withdrawal Last Admin: 02/01/23 21:26 Dose: 0.1 mg Diphenhydramine HCl (Diphenhydramine Hcl 25 Mg Capsule) 50 mg PO Q6H PRN PRN Reason: Allergic Symptoms Last Admin: 02/07/23 10:19 Dose: 50 mg Folic Acid (Folic Acid 1 Mg Tablet) 1 mg PO DAILY [facility] Last Admin: 02/07/23 08:41 Dose: 1 mg Haloperidol Lactate (Haloperidol Lactate 5 Mg/Ml Vial) 7.5 mg IM BID PRN PRN Reason: if PO refused Last Admin: 02/04/23 21:04 Dose: 7.5 mg Haloperidol Lactate (Haloperidol Lactate Oral Conc 10 Mg/5 Ml Oral.Conc) 5 mg PO BID [facility] Last Admin: 02/07/23 08:41 Dose: 5 mg [place] Carbonate ([place] Carbonate Er 300 Mg Tablet.Er) 600 mg PO BID [facility] Last Admin: 02/07/23 08:40 Dose: 600 mg Lorazepam (Lorazepam 2 Mg/Ml Vial) 2 mg IM BID PRN PRN Reason: refusal of tegretol Magnesium Hydroxide (Milk Of Magnesia 30 Ml Oral.Susp) 30 ml PO DAILY PRN PRN Reason: Constipation Multi-Ingred Cream/Lotion/Oil/Oint (Mineral Oil/Petrolatum,White 106 Gm Tube) 1 appl TOPICAL BID [facility]; Protocol Last Admin: 02/07/23 08:47 Dose: Not Given Nicotine (Nicotine 21 Mg Patch.Td24) 21 mg TRANSDERMA DAILY PRN PRN Reason: smoking cessation Last Admin: 01/15/23 16:06 Dose: 21 mg Nicotine Polacrilex (Nicotine Polacrilex 2 Mg Gum) 4 mg BUCCAL Q2H PRN PRN Reason: nicotine cravings Ondansetron HCl (Ondansetron Odt 4 Mg Tab.Rapdis) 4 mg TRANSLINGU Q6H PRN PRN Reason: Nausea and Vomiting Last Admin: 01/28/23 14:44 Dose: 4 mg Thiamine HCl (Thiamine Hcl 100 Mg Tablet) 100 mg PO DAILY [facility] Last Admin: 02/07/23 08:40 Dose: 100 mg Trazodone HCl (Trazodone Hcl 50 Mg Tablet) 50 mg PO BEDTIME MRX1 PRN PRN Reason: Insomnia Last Admin: 02/05/23 20:50 Dose: 50 mg Allergies Allergies Allergy/AdvReac Type Severity Reaction Status Date / Time morphine [MORPHINE] AdvReac Unknown NAUSEA Verified 12/10/22 19:56 Assessment & Plan Assessment & Plan (1) Nonspecific ST-T wave electrocardiographic changes: Status: Acute Code(s): R94.31 - Abnormal electrocardiogram [ECG] [EKG] Assessment and Plan: Patient with nonspecific ST T wave changes which had dynamic. Unclear significance of these. He has no cardiac symptoms whatsoever. Normal physical exam. The septal Q-waves noted on EKG few days ago and not on yesterday's EKG on most likely due to lead placement and not suggestive for septal infarct. Would suggest an echocardiogram as cooking can be associated with cardiomyopathy. If this is within normal limits no further workup is indicated. There is no issues with use of lithium if it is absolutely necessary to use this to treat his psychiatric condition. No further 0 or other workup is indicated. (2) Cocaine use disorder: Status: Acute Code(s): F14.10 - Cocaine abuse, uncomplicated (3) Schizoaffective disorder, bipolar type: Status: Acute Code(s): F25.0 - Schizoaffective disorder, bipolar type (4) Opioid use disorder: Status: Acute Code(s): F11.90 - Opioid use, unspecified, uncomplicated Plan 12/24: attempt to give anti-psychotics. comfort meds for opioid and cocaine withdrawal. 12/25: refusing medications. period of agitation last night slamming doors and yelling (presumably @). continue current mgmt. 12/26: refusing meds. binging and purging. floridly psychotic. 12/27: had meds last night for sleep, per his request. schedule all haldol tonight with ativan and cogentin. a bit more interactive today, remains delayed and distracted. no binging/purging behaviors or agitated behaviors described by RN report today. 12/28: refused meds last night. Today asks for meds for sx mgt- aggressive today-threw two coffee cups. Begin Depakote 250 mg bid. 12/29: got multiple meds last NOC and overnight per his request. slept 2 hours. refusing meds this morning. commitment paperwork completed. 3-day notice expires tomorrow. c/o opioid craving, asked for methadone. methadone 30 mg daily started today. 12/30: filed for commitment today. haldol and ativan per his request last night. appears in disbelief that he will not be discharged today. 12/31: demanding to leave, getting agitated, banging on nursing station, slamming doors in his room. given IMs x 2, haldol 10 ativan 2 benadryl 50 for first and thorazine 100 for second. 01/01: Remains unpredictable and irritable. Refusing scheduled medications. Section 7/8 filed. 01/02: Continue current management. 01/03: refusing meds. irritable, labile. periods of agitation. continue current mgmt, awaiting hearing for . 01/04: refusing meds. irritable, labile. periods of agitation. continue current mgmt, though pt is refusing meds. 01/05: thought-blocked. denies mental illness or need for medications. offer medications. hearing tomorrow. 01/06: committed and ordered medications at hearing. 06/12/20 [facility] [place] summary reviewd, pt was discharged on VPA, zyprexa, haldol. 03/14/20 DC summary reviewed, pt discharged on zyprexa, haldol. pt unable to comprehend result, agitated not to be leaving today. 01/07: copy of court order on unit, will order meds accordingly today. no change in presentation. 01/08: Continue current regimen and plans 01/09: Continue current plans and regimen. Discontinue contingent IM Ativan if Depakote refused 01/10: Continue current regimen and plans. 01/11: DC VPA, start tegretol per pt preference. ativan 2 mg IM for refusal of tegretol. continue haldol PO/IM orders. improved from last week. less agitated, a bit more organized and engaging. 01/12: appears more disorganized again today, trouble engaging. refused PO meds last night but did take tegretol PO this morning. 01/13: continues disorganized, difficulty expressing himself. refusing PO meds since yesterday morning. slept 10 hours last night, however 01/14: intermittently taking meds PO versus IM. improved behavior from prior to med order, but remains floridly psychotic. continue current mgmt. 01/16/2023: No changes to current plan 01/17: more compliant with tegretol in recent days, still getting haldol IM. no change in presentation. continue current mgmt. 01/18: remains psychotic, labile. increase tegretol to 300 mg BID. 01/19: continues more aggressive and labile today. increase haldol to 10 BID with back-up IM of 7.5 mg. 01/20: more calm today,periods of agitation, however, in the past 24H. continue current mgmt. declines to change scheduled haldol to thorazine (proposed by MD in the hope he would in order to spare him the IMs). 01/21 continue tx. 01/22 writing for thorazine at bed- mr x1 and check ekg given other antipsychotics on board 01/23 agreed to ekg today, added 1pm dose of 5mg haldol 01/24: taking meds PO, still suffering from AH, possibly VH. perhaps trending more calm, but clearly still periods of agitation in the past several days. 01/25: labile, paranoid delusions. informed staff he experiences AH, mumbles recently. increase tegretol to 400 BID, make IR formulation as he has been chewing the pills. 01/26: more calm today. continue current mgmt. 01/27: continues more calm. some staff concerned for akathisia due to pacing and number of PRNs taken, but appears to be doing less walking than he had been before, does not appear restless or uncomfortable. continue current mgmt, check tegretol level 2 weeks after dose change (02/08). 01/28: stable presentation. intermittent sleep disturbance. continue current mgmt. 01/29: Continue current management. Benadryl for allergies 01/30: Continue current plan of care. 01/31: continues to ask for lots of PRNs. no change in presentation. 01/28 mild anemia and hyponatremia; trend. tegretol level 10.3. 02/01: series of abnormal and dynamic EKGs; today's WNL. cardiology consult requested for opinion. will start lithium pending cards opinion re EKG series. no change in presentation. 02/02: appreciate cardiology consultation and opinion. echocardiogram ordered. lithium started. appears better able to tolerate longer interaction today. 02/03: improved ability to tolerate social engagements continues. feels lithium has been helpful. akathisia likely. decrease haldol 02/10/10 to 5 BID and add thorazine 25 BID at 0900 and 1300. 02/04: clear uptick in psychotic.manic behavior yesterday after haldol dose decrease. eloped today. increase thorazine to 100/100/200 with PRNS available. 02/05: no concerning behaviors since elopement yesterday. refused PO haldol last night, otherwise med compliant. 02/06: med-compliant, no concerning behaviors. continue current mgmt. 02/07: check BMP along with lithium level. stable presentation. Reason for continued inpatient stay Substantial Risk for: inability to function and rapid decompensation Time Spent With Patient Time: Total time managing care of this patient today _25___ minutes.
[2023-02-07 19:43] VITALS: BP 130/80; PULSE 81; RESP 18; TEMP 36.8; O2SAT 97
[2023-02-07 20:12] LABS: MANUAL DIFF FLAG NO
[2023-02-07 20:14] LABS: Basophils Absolute Auto 0.1 X10*3/uL (0.0-0.2); Basophils Percent Auto 0.9 % (0-2); Eosinophils Absolute Auto 0.7 X10*3/uL (0.0-0.4); Hematocrit 40.9 % (42.0-52.0); Hemoglobin 13.9 g/dl (14.0-18.0); Imm Gran Abs Auto 0.07 X10*3/uL (0.00-0.03); Imm Gran Pct Auto 0.7 % (0.0-0.4); Lymphocytes Absolute Auto 2.3 X10*3/uL (1.2-4.9); Lymphocytes Percent Auto 23.9 % (20-40); Mean Corpuscular Volume 88.3 fL (80.0-98.0); Mean Platelet Volume 9.6 fL (9.4-12.4); Monocytes Percent Auto 10.3 % (2-11); Neutrophils Absolute Auto 5.6 x10*3/uL (2.0-8.3); Neutrophils Percent Auto 57.2 % (45-73); Platelet Count 212 X10*3/uL (160-400); Red Blood Count 4.63 X10*6/uL (4.60-5.80); Red Cell Distribution Width 11.9 % (11.0-16.0); White Blood Count 9.7 X10*3/uL (4.8-10.8)
[2023-02-07] MEDS: chlorproMAZINE HCl 100 MG TABLET 200 MG PO (20:30)
[2023-02-07 20:32] LABS: Alanine Aminotransferase 33 U/L (0-40); Albumin Level 5.1 g/dL (3.5-5.0); Alkaline Phosphatase 62 U/L (39-117); Anion Gap 14 (12-20); Aspartate Amino Transferase 17 U/L (5-37); Bilirubin Direct < 0.2 mg/dL (0.0-0.5); Bilirubin Total 0.2 mg/dL (0.0-1.0); Blood Urea Nitrogen 16 mg/dL (9-16); Calcium 10.2 mg/dL (8.4-10.2); Carbon Dioxide 26 mmol/L (22-29); Chloride 101 mmol/L (96-108); Creatinine Clr Calc Pharmacy 119.3; Estimated Glomerular Filt Rate > 60; Glucose Random 100 mg/dL (60-115); Potassium 4.2 mmol/L (3.3-5.1); Sodium 137 mmol/L (135-145); Total Protein 7.8 g/dL (6.5-8.0)
[2023-02-07] MEDS: Throat Lozenge, Medicated LOZENGE 1 LOZENGE MUCOUS MEM (21:47)
[2023-02-07] MEDS: traZODone HCL 50 MG TABLET PO (22:40)
[2023-02-08] MEDS: Acetaminophen 325 MG TABLET 650 MG PO ×2 (04:18→21:00)
[2023-02-08] MEDS: Lithium Carbonate ER 300 MG TABLET.ER 600 MG PO (09:10)
[2023-02-08] MEDS: chlorproMAZINE HCl 100 MG TABLET PO ×3 (09:10→19:19)
[2023-02-08] MEDS: Folic Acid 1 MG TABLET PO (09:10)
[2023-02-08] MEDS: Benztropine Mesylate 1 MG TABLET PO ×2 (09:10→20:59)
[2023-02-08] MEDS: Thiamine HCL 100 MG TABLET PO (09:11)
[2023-02-08] MEDS: carBAMazepine 200 MG TABLET 400 MG PO ×2 (09:11→20:59)
[2023-02-08] MEDS: Haloperidol Lactate Oral Conc 10 MG/5 ML ORAL.CONC 5 MG PO (09:11)
[2023-02-08 09:40] VITALS: BP 111/65; PULSE 75; RESP 20; TEMP 36.7; O2SAT 98
--- NOTE | 2023-02-08 13:16 | P.PNPSI_ITS ---
Subjective Subjective Date of Service: 02/08/23 Reason For Visit: Psychosis Interim History: calm, cooperative. no complaints or requests, does acknowledge AH when asked. per staff, anxious and guarded. RIS. pacing. met with [facility] but walked out of interview prematurely. using PRNs. slept well. Mental Status Exam Mental Status Exam Narrative: adequately dressed and groomed. up and about the unit pacing. cooperative. speech nml in amount, nml latency. linear, logical. affect more flexible, normo-intense, non-labile. no SI/HI/AVH expressed, but behaviors c/w at the least AH. Diagnostics Vital Signs (24Hr): Vital Signs - 24 hr 02/07/23 19:43 02/08/23 09:40 Temperature 98.3 F 98.0 F Pulse Rate 81 75 Respiratory Rate 18 20 Blood Pressure 130/80 111/65 Pulse Oximetry 97 98 Oxygen Delivery Method Room Air Room Air BMI result Body Mass Index 27.8 Labs 02/07/23 20:01 02/07/23 20:01 Labs: Laboratory Results - last 48 hr 02/07/23 20:01 WBC 9.7 RBC 4.63 Hgb 13.9 L Hct 40.9 L MCV 88.3 MCH 30.0 MCHC 34.0 RDW 11.9 Plt Count 212 D MPV 9.6 Immature Gran % (Auto) 0.7 H Neut % (Auto) 57.2 Lymph % (Auto) 23.9 [place] % (Auto) 10.3 Eos % (Auto) 7.0 H Baso % (Auto) 0.9 Lymph # (Auto) 2.3 Walsh # (Auto) 1.0 Eos # (Auto) 0.7 H Baso # (Auto) 0.1 Abs Immat Gran (auto) 0.07 H Absolute Neuts (auto) 5.6 Absolute Nucleated RBC 0.000 Nucleated RBC % (auto) 0.0 Sodium 137 Potassium 4.2 Chloride 101 Carbon Dioxide 26 Anion Gap 14 BUN 16 Creatinine 1.06 Estim Creat Clear Calc 119.3 Estimated GFR > 60 Random Glucose 100 Calcium 10.2 D Total Bilirubin 0.2 Direct Bilirubin < 0.2 AST 17 ALT 33 Alkaline Phosphatase 62 Total Protein 7.8 Albumin 5.1 H Carbamazepine 9.0 [place] 0.60 Medications Medications Current Medications Acetaminophen (Acetaminophen 325 Mg Tablet) 650 mg PO Q6H PRN PRN Reason: Headache/Pain Mild Scale (1-3) Last Admin: 02/08/23 04:18 Dose: 650 mg Al Hydroxide/Mg Hydroxide (Magnesium Hydrox/Alum Hydrox 30 Ml Oral.Susp) 30 ml PO Q6H PRN PRN Reason: Heartburn/Nausea Last Admin: 01/29/23 22:57 Dose: 30 ml Benzocaine (Throat Lozenge, Medicated Lozenge) 1 lozenge MUCOUS MEM Q2H PRN PRN Reason: Sore Throat Last Admin: 02/07/23 21:47 Dose: 1 lozenge Benztropine Mesylate (Benztropine Mesylate 1 Mg Tablet) 1 mg PO BID [facility] Last Admin: 02/08/23 09:10 Dose: 1 mg Carbamazepine (Carbamazepine 200 Mg Tablet) 400 mg PO BID [facility] Last Admin: 02/08/23 09:11 Dose: 400 mg Chlorpromazine HCl (Chlorpromazine Hcl 100 Mg Tablet) 200 mg PO BEDTIME [facility] Last Admin: 02/07/23 20:30 Dose: 200 mg Chlorpromazine HCl (Chlorpromazine Hcl 100 Mg Tablet) 100 mg PO BID@0900,1300 [facility] Last Admin: 02/08/23 09:10 Dose: 100 mg Chlorpromazine HCl (Chlorpromazine Hcl 100 Mg Tablet) 100 mg PO Q4H PRN PRN Reason: agitation/anxiety Last Admin: 02/07/23 19:23 Dose: 100 mg Clonidine HCl (Clonidine Hcl 0.1 Mg Tablet) 0.1 mg PO Q2H PRN; Protocol PRN Reason: agitation/signs of opioid withdrawal Last Admin: 02/01/23 21:26 Dose: 0.1 mg Diphenhydramine HCl (Diphenhydramine Hcl 25 Mg Capsule) 50 mg PO Q6H PRN PRN Reason: Allergic Symptoms Last Admin: 02/07/23 18:35 Dose: 50 mg Fluphenazine HCl (Fluphenazine Hcl 5 Mg Tablet) 5 mg PO BID [facility] Fluphenazine HCl (Fluphenazine Hcl 2.5 Mg/Ml 10 Ml Vial) 5 mg IM BID PRN PRN Reason: refusal of PO fluphenazine Folic Acid (Folic Acid 1 Mg Tablet) 1 mg PO DAILY [facility] Last Admin: 02/08/23 09:10 Dose: 1 mg [place] Carbonate ([place] Carbonate Er 300 Mg Tablet.Er) 600 mg PO DAILY [facility] [place] Carbonate ([place] Carbonate Er 450 Mg Tablet.Er) 900 mg PO BEDTIME [facility] Lorazepam (Lorazepam 2 Mg/Ml Vial) 2 mg IM BID PRN PRN Reason: refusal of tegretol Magnesium Hydroxide (Milk Of Magnesia 30 Ml Oral.Susp) 30 ml PO DAILY PRN PRN Reason: Constipation Multi-Ingred Cream/Lotion/Oil/Oint (Mineral Oil/Petrolatum,White 106 Gm Tube) 1 appl TOPICAL BID [facility]; Protocol Last Admin: 02/08/23 09:11 Dose: Not Given Nicotine (Nicotine 21 Mg Patch.Td24) 21 mg TRANSDERMA DAILY PRN PRN Reason: smoking cessation Last Admin: 01/15/23 16:06 Dose: 21 mg Nicotine Polacrilex (Nicotine Polacrilex 2 Mg Gum) 4 mg BUCCAL Q2H PRN PRN Reason: nicotine cravings Ondansetron HCl (Ondansetron Odt 4 Mg Tab.Rapdis) 4 mg TRANSLINGU Q6H PRN PRN Reason: Nausea and Vomiting Last Admin: 01/28/23 14:44 Dose: 4 mg Thiamine HCl (Thiamine Hcl 100 Mg Tablet) 100 mg PO DAILY [facility] Last Admin: 02/08/23 09:11 Dose: 100 mg Trazodone HCl (Trazodone Hcl 50 Mg Tablet) 50 mg PO BEDTIME MRX1 PRN PRN Reason: Insomnia Last Admin: 02/07/23 22:40 Dose: 50 mg Allergies Allergies Allergy/AdvReac Type Severity Reaction Status Date / Time morphine [MORPHINE] AdvReac Unknown NAUSEA Verified 12/10/22 19:56 Assessment & Plan Assessment & Plan (1) Nonspecific ST-T wave electrocardiographic changes: Status: Acute Code(s): R94.31 - Abnormal electrocardiogram [ECG] [EKG] Assessment and Plan: Patient with nonspecific ST T wave changes which had dynamic. Unclear significance of these. He has no cardiac symptoms whatsoever. Normal physical exam. The septal Q-waves noted on EKG few days ago and not on yesterday's EKG on most likely due to lead placement and not suggestive for septal infarct. Would suggest an echocardiogram as cooking can be associated with cardiomyopathy. If this is within normal limits no further workup is indicated. There is no issues with use of lithium if it is absolutely necessary to use this to treat his psychiatric condition. No further 0 or other workup is indicated. (2) Cocaine use disorder: Status: Acute Code(s): F14.10 - Cocaine abuse, uncomplicated (3) Schizoaffective disorder, bipolar type: Status: Acute Code(s): F25.0 - Schizoaffective disorder, bipolar type (4) Opioid use disorder: Status: Acute Code(s): F11.90 - Opioid use, unspecified, uncomplicated Plan 12/24: attempt to give anti-psychotics. comfort meds for opioid and cocaine withdrawal. 12/25: refusing medications. period of agitation last night slamming doors and yelling (presumably @). continue current mgmt. 12/26: refusing meds. binging and purging. floridly psychotic. 12/27: had meds last night for sleep, per his request. schedule all haldol tonight with ativan and cogentin. a bit more interactive today, remains delayed and distracted. no binging/purging behaviors or agitated behaviors described by RN report today. 12/28: refused meds last night. Today asks for meds for sx mgt- aggressive today- threw two coffee cups. Begin Depakote 250 mg bid. 12/29: got multiple meds last NOC and overnight per his request. slept 2 hours. refusing meds this morning. commitment paperwork completed. 3-day notice expires tomorrow. c/o opioid craving, asked for methadone. methadone 30 mg daily started today. 12/30: filed for commitment today. haldol and ativan per his request last night. appears in disbelief that he will not be discharged today. 12/31: demanding to leave, getting agitated, banging on nursing station, slamming doors in his room. given IMs x 2, haldol 10 ativan 2 benadryl 50 for first and thorazine 100 for second. 01/01: Remains unpredictable and irritable. Refusing scheduled medications. Section 7/ filed. 01/02: Continue current management. 01/03: refusing meds. irritable, labile. periods of agitation. continue current mgmt, awaiting hearing for . 01/04: refusing meds. irritable, labile. periods of agitation. continue current mgmt, though pt is refusing meds. 01/05: thought-blocked. denies mental illness or need for medications. offer medications. hearing tomorrow. 01/06: committed and ordered medications at hearing. 06/12/[address] [facility] DC summary reviewd, pt was discharged on VPA, zyprexa, haldol. 03/14/20 DC summary reviewed, pt discharged on zyprexa, haldol. pt unable to comprehend result, agitated not to be leaving today. 01/07: copy of court order on unit, will order meds accordingly today. no change in presentation. 01/08: Continue current regimen and plans 01/09: Continue current plans and regimen. Discontinue contingent IM Ativan if Depakote refused 01/10: Continue current regimen and plans. 01/11: DC VPA, start tegretol per pt preference. ativan 2 mg IM for refusal of tegretol. continue haldol PO/IM orders. improved from last week. less agitated, a bit more organized and engaging. 01/12: appears more disorganized again today, trouble engaging. refused PO meds last night but did take tegretol PO this morning. 01/13: continues disorganized, difficulty expressing himself. refusing PO meds since yesterday morning. slept 10 hours last night, however 01/14: intermittently taking meds PO versus IM. improved behavior from prior to med order, but remains floridly psychotic. continue current mgmt. 01/16/2023: No changes to current plan 01/17: more compliant with tegretol in recent days, still getting haldol IM. no change in presentation. continue current mgmt. 01/18: remains psychotic, labile. increase tegretol to 300 mg BID. 01/19: continues more aggressive and labile today. increase haldol to 10 BID with back-up IM of 7.5 mg. 01/20: more calm today,periods of agitation, however, in the past 24H. continue current mgmt. declines to change scheduled haldol to thorazine (proposed by in the hope he would in order to spare him the IMs). 01/21 continue tx. 01/22 writing for thorazine at bed- mr x1 and check ekg given other antipsychotics on board 01/23 agreed to ekg today, added 1pm dose of 5mg haldol 01/24: taking meds PO, still suffering from AH, possibly VH. perhaps trending more calm, but clearly still periods of agitation in the past several days. 01/25: labile, paranoid delusions. informed staff he experiences AH, mumbles recently. increase tegretol to 400 BID, make IR formulation as he has been chewing the pills. 01/26: more calm today. continue current mgmt. 01/27: continues more calm. some staff concerned for akathisia due to pacing and number of PRNs taken, but appears to be doing less walking than he had been before, does not appear restless or uncomfortable. continue current mgmt, check tegretol level 2 weeks after dose change (02/08). 01/28: stable presentation. intermittent sleep disturbance. continue current mgmt. 01/29: Continue current management. Benadryl for allergies 01/30: Continue current plan of care. 01/31: continues to ask for lots of PRNs. no change in presentation. 01/28 mild anemia and hyponatremia; trend. tegretol level 10.3. 02/01: series of abnormal and dynamic EKGs; today's WNL. cardiology consult requested for opinion. will start lithium pending cards opinion re EKG series. no change in presentation. 02/02: appreciate cardiology consultation and opinion. echocardiogram ordered. lithium started. appears better able to tolerate longer interaction today. 02/03: improved ability to tolerate social engagements continues. feels lithium has been helpful. akathisia likely. decrease haldol 02/10/10 to 5 BID and add thorazine 25 BID at 0900 and 1300. 02/04: clear uptick in psychotic.manic behavior yesterday after haldol dose decrease. eloped today. increase thorazine to 100/100/200 with PRNS available. 02/05: no concerning behaviors since elopement yesterday. refused PO haldol last night, otherwise med compliant. 02/06: med-compliant, no concerning behaviors. continue current mgmt. 02/07: check BMP along with lithium level. stable presentation. 02/08: CBC/BMP not concerning. lithium 0.6, tegretol 9.0. increase lithium dosing from 600 BID to 600/900 as of tonight. DC haldol entirely out of concerns for akathisia. invega not a great option due to tegretol interaction. start prolixin PO with IM back-up as alternative neuroleptic to haldol. Reason for continued inpatient stay Substantial Risk for: harm to self, inability to function and rapid decompensation Time Spent With Patient Time: Total time managing care of this patient today _35___ minutes.
[2023-02-08] MEDS: diphenhydrAMINE HCL 25 MG CAPSULE 50 MG PO (17:19)
[2023-02-08 18:00] VITALS: BP 113/57; PULSE 65; RESP 18; TEMP 36.6; O2SAT 99
[2023-02-08] MEDS: chlorproMAZINE HCl 100 MG TABLET 200 MG PO (20:58)
[2023-02-08] MEDS: fluPHENAZine HCl 5 MG TABLET PO (21:00)
[2023-02-08] MEDS: Lithium Carbonate ER 450 MG TABLET.ER 900 MG PO (21:00)
[2023-02-09 09:25] VITALS: BP 129/59; PULSE 85; TEMP 36.7; O2SAT 97
[2023-02-09] MEDS: Folic Acid 1 MG TABLET PO (09:31)
[2023-02-09] MEDS: fluPHENAZine HCl 5 MG TABLET PO ×2 (09:31→20:21)
[2023-02-09] MEDS: chlorproMAZINE HCl 100 MG TABLET PO ×3 (09:31→13:11)
[2023-02-09] MEDS: Thiamine HCL 100 MG TABLET PO (09:32)
[2023-02-09] MEDS: carBAMazepine 200 MG TABLET 400 MG PO ×2 (09:32→20:21)
[2023-02-09] MEDS: Benztropine Mesylate 1 MG TABLET PO ×2 (09:32→20:21)
[2023-02-09] MEDS: Lithium Carbonate ER 300 MG TABLET.ER 600 MG PO (09:33)
[2023-02-09] MEDS: Nicotine Polacrilex 2 MG GUM 4 MG BUCCAL (11:45)
[2023-02-09] MEDS: Acetaminophen 325 MG TABLET 650 MG PO ×2 (14:53→23:05)
[2023-02-09] MEDS: diphenhydrAMINE HCL 25 MG CAPSULE 50 MG PO ×2 (15:49→21:16)
--- NOTE | 2023-02-09 16:09 | HO.PSYCHPN ---
Subjective Subjective Date of Service: 02/09/23 Reason For Visit: Psychosis Subjective Notes: Section 8 Interim History: Reviewed case in team and . Patient presents calm, cooperative. no complaints or requests, denies SI/HI/VH/AH. guarded. pacing unit green. Reports feeling okay. Medication Compliance: Yes Side effects from medications: No Attending Groups: No Review of Systems Constitutional: Reports as per HPI Eyes: Reports as per HPI Reports as per HPI Cardiovascular: Reports as per HPI Respiratory: Reports as per HPI Gastrointestinal: Reports as per HPI Genitourinary: Reports as per HPI Musculoskeletal: Reports as per HPI Skin/Breast: Reports as per HPI Reports as per HPI Psychiatric: Reports as per HPI Endocrine: Reports as per HPI Hematologic/Lymphatic: Reports as per HPI Allergic/Immunologic: Reports as per HPI Mental Status Exam Mental Status Exam Narrative: adequately dressed and groomed. up and about the unit pacing. cooperative. linear, logical.guarded. affect more flexible, no SI/HI/AVH expressed, Diagnostics Vital Signs (24Hr): Vital Signs - 24 hr 02/08/23 18:00 02/09/23 09:25 Temperature 97.8 F 98.0 F Pulse Rate 65 85 Respiratory Rate 18 Blood Pressure 113/57 L 129/59 L Pulse Oximetry 99 97 Oxygen Delivery Method Room Air Room Air BMI result Body Mass Index 27.8 Labs 03/03/23 20:10 03/25/23 12:35 Labs: Laboratory Results - last 48 hr 02/07/23 20:01 WBC 9.7 RBC 4.63 Hgb 13.9 L Hct 40.9 L MCV 88.3 MCH 30.0 MCHC 34.0 RDW 11.9 Plt Count 212 D MPV 9.6 Immature Gran % (Auto) 0.7 H Neut % (Auto) 57.2 Lymph % (Auto) 23.9 [place] % (Auto) 10.3 Eos % (Auto) 7.0 H Baso % (Auto) 0.9 Lymph # (Auto) 2.3 Prentiss # (Auto) 1.0 Eos # (Auto) 0.7 H Baso # (Auto) 0.1 Abs Immat Gran (auto) 0.07 H Absolute Neuts (auto) 5.6 Absolute Nucleated RBC 0.000 Nucleated RBC % (auto) 0.0 Sodium 137 Potassium 4.2 Chloride 101 Carbon Dioxide 26 Anion Gap 14 BUN 16 Creatinine 1.06 Estim Creat Clear Calc 119.3 Estimated GFR > 60 Random Glucose 100 Calcium 10.2 D Total Bilirubin 0.2 Direct Bilirubin < 0.2 AST 17 ALT 33 Alkaline Phosphatase 62 Total Protein 7.8 Albumin 5.1 H Carbamazepine 9.0 [place] 0.60 Medications Medications Current Medications Acetaminophen (Acetaminophen 325 Mg Tablet) 650 mg PO Q6H PRN PRN Reason: Headache/Pain Mild Scale (1-3) Last Admin: 02/09/23 14:53 Dose: 650 mg Al Hydroxide/Mg Hydroxide (Magnesium Hydrox/Alum Hydrox 30 Ml Oral.Susp) 30 ml PO Q6H PRN PRN Reason: Heartburn/Nausea Last Admin: 01/29/23 22:57 Dose: 30 ml Benzocaine (Throat Lozenge, Medicated Lozenge) 1 lozenge MUCOUS MEM Q2H PRN PRN Reason: Sore Throat Last Admin: 02/07/23 21:47 Dose: 1 lozenge Benztropine Mesylate (Benztropine Mesylate 1 Mg Tablet) 1 mg PO BID REPLACED BY [facility] Last Admin: 02/09/23 09:32 Dose: 1 mg Carbamazepine (Carbamazepine 200 Mg Tablet) 400 mg PO BID REPLACED BY [facility] Last Admin: 02/09/23 09:32 Dose: 400 mg Chlorpromazine HCl (Chlorpromazine Hcl 100 Mg Tablet) 200 mg PO BEDTIME REPLACED BY [facility] Last Admin: 02/08/23 20:58 Dose: 200 mg Chlorpromazine HCl (Chlorpromazine Hcl 100 Mg Tablet) 100 mg PO BID@0900,1300 REPLACED BY [facility] Last Admin: 02/09/23 13:11 Dose: 100 mg Chlorpromazine HCl (Chlorpromazine Hcl 100 Mg Tablet) 100 mg PO Q4H PRN PRN Reason: agitation/anxiety Last Admin: 02/09/23 10:18 Dose: 100 mg Clonidine HCl (Clonidine Hcl 0.1 Mg Tablet) 0.1 mg PO Q2H PRN; Protocol PRN Reason: agitation/signs of opioid withdrawal Last Admin: 02/01/23 21:26 Dose: 0.1 mg Diphenhydramine HCl (Diphenhydramine Hcl 25 Mg Capsule) 50 mg PO Q6H PRN PRN Reason: Allergic Symptoms Last Admin: 02/09/23 15:49 Dose: 50 mg Fluphenazine HCl (Fluphenazine Hcl 5 Mg Tablet) 5 mg PO BID REPLACED BY [facility] Last Admin: 02/09/23 09:31 Dose: 5 mg Fluphenazine HCl (Fluphenazine Hcl 2.5 Mg/Ml 10 Ml Vial) 5 mg IM BID PRN PRN Reason: refusal of PO fluphenazine Folic Acid (Folic Acid 1 Mg Tablet) 1 mg PO DAILY REPLACED BY [facility] Last Admin: 02/09/23 09:31 Dose: 1 mg [place] Carbonate ([place] Carbonate Er 300 Mg Tablet.Er) 600 mg PO DAILY REPLACED BY [facility] Last Admin: 02/09/23 09:33 Dose: 600 mg [place] Carbonate ([place] Carbonate Er 450 Mg Tablet.Er) 900 mg PO BEDTIME REPLACED BY [facility] Last Admin: 02/08/23 21:00 Dose: 900 mg Lorazepam (Lorazepam 2 Mg/Ml Vial) 2 mg IM BID PRN PRN Reason: refusal of tegretol or lithium Magnesium Hydroxide (Milk Of Magnesia 30 Ml Oral.Susp) 30 ml PO DAILY PRN PRN Reason: Constipation Multi-Ingred Cream/Lotion/Oil/Oint (Mineral Oil/Petrolatum,White 106 Gm Tube) 1 appl TOPICAL BID REPLACED BY [facility]; Protocol Last Admin: 02/09/23 09:34 Dose: Not Given Nicotine (Nicotine 21 Mg Patch.Td24) 21 mg TRANSDERMA DAILY PRN PRN Reason: smoking cessation Last Admin: 01/15/23 16:06 Dose: 21 mg Nicotine Polacrilex (Nicotine Polacrilex 2 Mg Gum) 4 mg BUCCAL Q2H PRN PRN Reason: nicotine cravings Last Admin: 02/09/23 11:45 Dose: 4 mg Ondansetron HCl (Ondansetron Odt 4 Mg Tab.Rapdis) 4 mg TRANSLINGU Q6H PRN PRN Reason: Nausea and Vomiting Last Admin: 01/28/23 14:44 Dose: 4 mg Thiamine HCl (Thiamine Hcl 100 Mg Tablet) 100 mg PO DAILY REPLACED BY [facility] Last Admin: 02/09/23 09:32 Dose: 100 mg Trazodone HCl (Trazodone Hcl 50 Mg Tablet) 50 mg PO BEDTIME MRX1 PRN PRN Reason: Insomnia Last Admin: 02/07/23 22:40 Dose: 50 mg Allergies Allergies Allergy/AdvReac Type Severity Reaction Status Date / Time morphine [MORPHINE] AdvReac Unknown NAUSEA Verified 12/10/22 19:56 Assessment & Plan Assessment & Plan (1) Nonspecific ST-T wave electrocardiographic changes: Status: Acute Code(s): R94.31 - Abnormal electrocardiogram [ECG] [EKG] Assessment and Plan: Patient with nonspecific ST T wave changes which had dynamic. Unclear significance of these. He has no cardiac symptoms whatsoever. Normal physical exam. The septal Q-waves noted on EKG few days ago and not on yesterday's EKG on most likely due to lead placement and not suggestive for septal infarct. Would suggest an echocardiogram as cooking can be associated with cardiomyopathy. If this is within normal limits no further workup is indicated. There is no issues with use of lithium if it is absolutely necessary to use this to treat his psychiatric condition. No further 0 or other workup is indicated. (2) Cocaine use disorder: Status: Acute Code(s): F14.10 - Cocaine abuse, uncomplicated (3) Schizoaffective disorder, bipolar type: Status: Acute Code(s): F25.0 - Schizoaffective disorder, bipolar type (4) Opioid use disorder: Status: Acute Code(s): F11.90 - Opioid use, unspecified, uncomplicated Plan 12/24: attempt to give anti-psychotics. comfort meds for opioid and cocaine withdrawal. 12/25: refusing medications. period of agitation last night slamming doors and yelling (presumably @). continue current mgmt. 12/26: refusing meds. binging and purging. floridly psychotic. 12/27: had meds last night for sleep, per his request. schedule all haldol tonight with ativan and cogentin. a bit more interactive today, remains delayed and distracted. no binging/purging behaviors or agitated behaviors described by RN report today. 12/28: refused meds last night. Today asks for meds for sx mgt- aggressive today-threw two coffee cups. Begin Depakote 250 mg bid. 12/29: got multiple meds last NOC and overnight per his request. slept 2 hours. refusing meds this morning. commitment paperwork completed. 3-day notice expires tomorrow. c/o opioid craving, asked for methadone. methadone 30 mg daily started today. 12/30: filed for commitment today. haldol and ativan per his request last night. appears in disbelief that he will not be discharged today. 12/31: demanding to leave, getting agitated, banging on nursing station, slamming doors in his room. given IMs x 2, haldol 10 ativan 2 benadryl 50 for first and thorazine 100 for second. 01/01: Remains unpredictable and irritable. Refusing scheduled medications. Section 7/ filed. 01/02: Continue current management. 01/03: refusing meds. irritable, labile. periods of agitation. continue current mgmt, awaiting hearing for . 01/04: refusing meds. irritable, labile. periods of agitation. continue current mgmt, though pt is refusing meds. 01/05: thought-blocked. denies mental illness or need for medications. offer medications. hearing tomorrow. 01/06: committed and ordered medications at hearing. 06[place]12[place] [facility] [place] pt was discharged on VPA, zyprexa, haldol. 03/14/20 DC summary reviewed, pt discharged on zyprexa, haldol. pt unable to comprehend result, agitated not to be leaving today. 01/07: copy of court order on unit, will order meds accordingly today. no change in presentation. 01/08: Continue current regimen and plans 01/09: Continue current plans and regimen. Discontinue contingent IM Ativan if Depakote refused 01/10: Continue current regimen and plans. 01/11: DC VPA, start tegretol per pt preference. ativan 2 mg IM for refusal of tegretol. continue haldol PO/IM orders. improved from last week. less agitated, a bit more organized and engaging. 01/12: appears more disorganized again today, trouble engaging. refused PO meds last night but did take tegretol PO this morning. 01/13: continues disorganized, difficulty expressing himself. refusing PO meds since yesterday morning. slept 10 hours last night, however 01/14: intermittently taking meds PO versus IM. improved behavior from prior to med order, but remains floridly psychotic. continue current mgmt. 01/16/2023: No changes to current plan 01/17: more compliant with tegretol in recent days, still getting haldol IM. no change in presentation. continue current mgmt. 01/18: remains psychotic, labile. increase tegretol to 300 mg BID. 01/19: continues more aggressive and labile today. increase haldol to 10 BID with back-up IM of 7.5 mg. 01/20: more calm today,periods of agitation, however, in the past 24H. continue current mgmt. declines to change scheduled haldol to thorazine (proposed by MD in the hope he would in order to spare him the IMs). 01/21 continue tx. 01/22 writing for thorazine at bed- mr x1 and check ekg given other antipsychotics on board 01/23 agreed to ekg today, added 1pm dose of 5mg haldol 01/24: taking meds PO, still suffering from AH, possibly VH. perhaps trending more calm, but clearly still periods of agitation in the past several days. 01/25: labile, paranoid delusions. informed staff he experiences AH, mumbles recently. increase tegretol to 400 BID, make IR formulation as he has been chewing the pills. 01/26: more calm today. continue current mgmt. 01/27: continues more calm. some staff concerned for akathisia due to pacing and number of PRNs taken, but appears to be doing less walking than he had been before, does not appear restless or uncomfortable. continue current mgmt, check tegretol level 2 weeks after dose change (02/08). 01/28: stable presentation. intermittent sleep disturbance. continue current mgmt. 01/29: Continue current management. Benadryl for allergies 01/30: Continue current plan of care. 01/31: continues to ask for lots of PRNs. no change in presentation. 01/28 mild anemia and hyponatremia; trend. tegretol level 10.3. 02/01: series of abnormal and dynamic EKGs; today's WNL. cardiology consult requested for opinion. will start lithium pending cards opinion re EKG series. no change in presentation. 02/02: appreciate cardiology consultation and opinion. echocardiogram ordered. lithium started. appears better able to tolerate longer interaction today. 02/03: improved ability to tolerate social engagements continues. feels lithium has been helpful. akathisia likely. decrease haldol 02/10/10 to 5 BID and add thorazine 25 BID at 0900 and 1300. 02/04: clear uptick in psychotic.manic behavior yesterday after haldol dose decrease. eloped today. increase thorazine to 100/100/200 with PRNS available. 02/05: no concerning behaviors since elopement yesterday. refused PO haldol last night, otherwise med compliant. 02/06: med-compliant, no concerning behaviors. continue current mgmt. 02/07: check BMP along with lithium level. stable presentation. 02/08: CBC/BMP not concerning. lithium 0.6, tegretol 9.0. increase lithium dosing from 600 BID to 600/900 as of tonight. DC haldol entirely out of concerns for akathisia. invega not a great option due to tegretol interaction. start prolixin PO with IM back-up as alternative neuroleptic to haldol. 02/09: Continue current tx plan. Patient educated on: medication risk/benefits Informed Consent: understands and further education needed Reason for continued inpatient stay Substantial Risk for: med/psych decompensation Time Spent With Patient Time: Total time managing care of this patient today _30___ minutes.
[2023-02-09 19:55] VITALS: BP 151/78; PULSE 90; RESP 18; TEMP 37; O2SAT 98
[2023-02-09] MEDS: chlorproMAZINE HCl 100 MG TABLET 200 MG PO (20:21)
[2023-02-09] MEDS: Lithium Carbonate ER 450 MG TABLET.ER 900 MG PO (20:21)
[2023-02-09] MEDS: traZODone HCL 50 MG TABLET PO (23:58)
[2023-02-10] MEDS: chlorproMAZINE HCl 100 MG TABLET PO ×3 (01:24→12:55)
[2023-02-10] MEDS: carBAMazepine 200 MG TABLET 400 MG PO ×2 (09:02→21:01)
[2023-02-10] MEDS: Thiamine HCL 100 MG TABLET PO (09:03)
[2023-02-10] MEDS: fluPHENAZine HCl 5 MG TABLET PO (09:03)
[2023-02-10] MEDS: Benztropine Mesylate 1 MG TABLET PO ×2 (09:03→21:02)
[2023-02-10] MEDS: Lithium Carbonate ER 300 MG TABLET.ER 600 MG PO (09:03)
[2023-02-10] MEDS: Folic Acid 1 MG TABLET PO (09:04)
--- NOTE | 2023-02-10 14:21 | HO.PSYCHPN ---
Subjective Subjective Date of Service: 02/10/23 Reason For Visit: Psychosis Interim History: calm, cooperative. denies worsening AH. no questions or complaints. per staff, pacing, RIS. reporting AH less yesterday. did not appear to have slept at all overnight. Mental Status Exam Mental Status Exam Narrative: adequately dressed and groomed. up and about the unit pacing. cooperative. linear, logical.guarded. affect more flexible, no SI/HI/AVH expressed, Diagnostics Vital Signs (24Hr): Vital Signs - 24 hr 02/09/23 19:55 Temperature 98.6 F Pulse Rate 90 Respiratory Rate 18 Blood Pressure 151/78 H Pulse Oximetry 98 Oxygen Delivery Method Room Air BMI result Body Mass Index 27.8 Labs 02/07/23 20:01 02/07/23 20:01 Medications Medications Current Medications Acetaminophen (Acetaminophen 325 Mg Tablet) 650 mg PO Q6H PRN PRN Reason: Headache/Pain Mild Scale (1-3) Last Admin: 02/09/23 23:05 Dose: 650 mg Al Hydroxide/Mg Hydroxide (Magnesium Hydrox/Alum Hydrox 30 Ml Oral.Susp) 30 ml PO Q6H PRN PRN Reason: Heartburn/Nausea Last Admin: 01/29/23 22:57 Dose: 30 ml Benzocaine (Throat Lozenge, Medicated Lozenge) 1 lozenge MUCOUS MEM Q2H PRN PRN Reason: Sore Throat Last Admin: 02/07/23 21:47 Dose: 1 lozenge Benztropine Mesylate (Benztropine Mesylate 1 Mg Tablet) 1 mg PO BID [facility] Last Admin: 02/10/23 09:03 Dose: 1 mg Carbamazepine (Carbamazepine 200 Mg Tablet) 400 mg PO BID [facility] Last Admin: 02/10/23 09:02 Dose: 400 mg Chlorpromazine HCl (Chlorpromazine Hcl 100 Mg Tablet) 200 mg PO BEDTIME [facility] Last Admin: 02/09/23 20:21 Dose: 200 mg Chlorpromazine HCl (Chlorpromazine Hcl 100 Mg Tablet) 100 mg PO BID@0900,1300 [facility] Last Admin: 02/10/23 12:55 Dose: 100 mg Chlorpromazine HCl (Chlorpromazine Hcl 100 Mg Tablet) 100 mg PO Q4H PRN PRN Reason: agitation/anxiety Last Admin: 02/10/23 01:24 Dose: 100 mg Clonidine HCl (Clonidine Hcl 0.1 Mg Tablet) 0.1 mg PO Q2H PRN; Protocol PRN Reason: agitation/signs of opioid withdrawal Last Admin: 02/01/23 21:26 Dose: 0.1 mg Diphenhydramine HCl (Diphenhydramine Hcl 25 Mg Capsule) 50 mg PO Q6H PRN PRN Reason: Allergic Symptoms Last Admin: 02/09/23 21:16 Dose: 50 mg Fluphenazine HCl (Fluphenazine Hcl 5 Mg Tablet) 5 mg PO BID [facility] Last Admin: 02/10/23 09:03 Dose: 5 mg Fluphenazine HCl (Fluphenazine Hcl 2.5 Mg/Ml 10 Ml Vial) 5 mg IM BID PRN PRN Reason: refusal of PO fluphenazine Folic Acid (Folic Acid 1 Mg Tablet) 1 mg PO DAILY [facility] Last Admin: 02/10/23 09:04 Dose: 1 mg [place] Carbonate ([place] Carbonate Er 300 Mg Tablet.Er) 600 mg PO DAILY [facility] Last Admin: 02/10/23 09:03 Dose: 600 mg [place] Carbonate ([place] Carbonate Er 450 Mg Tablet.Er) 900 mg PO BEDTIME [facility] Last Admin: 02/09/23 20:21 Dose: 900 mg Lorazepam (Lorazepam 2 Mg/Ml Vial) 2 mg IM BID PRN PRN Reason: refusal of tegretol or lithium Magnesium Hydroxide (Milk Of Magnesia 30 Ml Oral.Susp) 30 ml PO DAILY PRN PRN Reason: Constipation Multi-Ingred Cream/Lotion/Oil/Oint (Mineral Oil/Petrolatum,White 106 Gm Tube) 1 appl TOPICAL BID [facility]; Protocol Last Admin: 02/10/23 10:09 Dose: Not Given Nicotine (Nicotine 21 Mg Patch.Td24) 21 mg TRANSDERMA DAILY PRN PRN Reason: smoking cessation Last Admin: 01/15/23 16:06 Dose: 21 mg Nicotine Polacrilex (Nicotine Polacrilex 2 Mg Gum) 4 mg BUCCAL Q2H PRN PRN Reason: nicotine cravings Last Admin: 02/09/23 11:45 Dose: 4 mg Ondansetron HCl (Ondansetron Odt 4 Mg Tab.Rapdis) 4 mg TRANSLINGU Q6H PRN PRN Reason: Nausea and Vomiting Last Admin: 01/28/23 14:44 Dose: 4 mg Thiamine HCl (Thiamine Hcl 100 Mg Tablet) 100 mg PO DAILY [facility] Last Admin: 02/10/23 09:03 Dose: 100 mg Trazodone HCl (Trazodone Hcl 50 Mg Tablet) 50 mg PO BEDTIME MRX1 PRN PRN Reason: Insomnia Last Admin: 02/09/23 23:58 Dose: 50 mg Allergies Allergies Allergy/AdvReac Type Severity Reaction Status Date / Time morphine [MORPHINE] AdvReac Unknown NAUSEA Verified 12/10/22 19:56 Assessment & Plan Assessment & Plan (1) Nonspecific ST-T wave electrocardiographic changes: Status: Acute Code(s): R94.31 - Abnormal electrocardiogram [ECG] [EKG] Assessment and Plan: Patient with nonspecific ST T wave changes which had dynamic. Unclear significance of these. He has no cardiac symptoms whatsoever. Normal physical exam. The septal Q-waves noted on EKG few days ago and not on yesterday's EKG on most likely due to lead placement and not suggestive for septal infarct. Would suggest an echocardiogram as cooking can be associated with cardiomyopathy. If this is within normal limits no further workup is indicated. There is no issues with use of lithium if it is absolutely necessary to use this to treat his psychiatric condition. No further 0 or other workup is indicated. (2) Cocaine use disorder: Status: Acute Code(s): F14.10 - Cocaine abuse, uncomplicated (3) Schizoaffective disorder, bipolar type: Status: Acute Code(s): F25.0 - Schizoaffective disorder, bipolar type (4) Opioid use disorder: Status: Acute Code(s): F11.90 - Opioid use, unspecified, uncomplicated Plan 12/24: attempt to give anti-psychotics. comfort meds for opioid and cocaine withdrawal. 12/25: refusing medications. period of agitation last night slamming doors and yelling (presumably @). continue current mgmt. 12/26: refusing meds. binging and purging. floridly psychotic. 12/27: had meds last night for sleep, per his request. schedule all haldol tonight with ativan and cogentin. a bit more interactive today, remains delayed and distracted. no binging/purging behaviors or agitated behaviors described by RN report today. 12/28: refused meds last night. Today asks for meds for sx mgt- aggressive today-threw two coffee cups. Begin Depakote 250 mg bid. 12/29: got multiple meds last NOC and overnight per his request. slept 2 hours. refusing meds this morning. commitment paperwork completed. 3-day notice expires tomorrow. c/o opioid craving, asked for methadone. methadone 30 mg daily started today. 12/30: filed for commitment today. haldol and ativan per his request last night. appears in disbelief that he will not be discharged today. 12/31: demanding to leave, getting agitated, banging on nursing station, slamming doors in his room. given IMs x 2, haldol 10 ativan 2 benadryl 50 for first and thorazine 100 for second. 01/01: Remains unpredictable and irritable. Refusing scheduled medications. Section 7/ filed. 01/02: Continue current management. 01/03: refusing meds. irritable, labile. periods of agitation. continue current mgmt, awaiting hearing for . 01/04: refusing meds. irritable, labile. periods of agitation. continue current mgmt, though pt is refusing meds. 01/05: thought-blocked. denies mental illness or need for medications. offer medications. hearing tomorrow. 01/06: committed and ordered medications at hearing. 06/12/20 [facility] [place] DC summary reviewd, pt was discharged on VPA, zyprexa, haldol. 03/14/20 DC summary reviewed, pt discharged on zyprexa, haldol. pt unable to comprehend result, agitated not to be leaving today. 01/07: copy of court order on unit, will order meds accordingly today. no change in presentation. 01/08: Continue current regimen and plans 01/09: Continue current plans and regimen. Discontinue contingent IM Ativan if Depakote refused 01/10: Continue current regimen and plans. 01/11: DC VPA, start tegretol per pt preference. ativan 2 mg IM for refusal of tegretol. continue haldol PO/IM orders. improved from last week. less agitated, a bit more organized and engaging. 01/12: appears more disorganized again today, trouble engaging. refused PO meds last night but did take tegretol PO this morning. 01/13: continues disorganized, difficulty expressing himself. refusing PO meds since yesterday morning. slept 10 hours last night, however 01/14: intermittently taking meds PO versus IM. improved behavior from prior to med order, but remains floridly psychotic. continue current mgmt. 01/16/2023: No changes to current plan 01/17: more compliant with tegretol in recent days, still getting haldol IM. no change in presentation. continue current mgmt. 01/18: remains psychotic, labile. increase tegretol to 300 mg BID. 01/19: continues more aggressive and labile today. increase haldol to 10 BID with back-up IM of 7.5 mg. 01/20: more calm today,periods of agitation, however, in the past 24H. continue current mgmt. declines to change scheduled haldol to thorazine (proposed by MD in the hope he would in order to spare him the IMs). 01/21 continue tx. 01/22 writing for thorazine at bed- mr x1 and check ekg given other antipsychotics on board 01/23 agreed to ekg today, added 1pm dose of 5mg haldol 01/24: taking meds PO, still suffering from AH, possibly VH. perhaps trending more calm, but clearly still periods of agitation in the past several days. 01/25: labile, paranoid delusions. informed staff he experiences AH, mumbles recently. increase tegretol to 400 BID, make IR formulation as he has been chewing the pills. 01/26: more calm today. continue current mgmt. 01/27: continues more calm. some staff concerned for akathisia due to pacing and number of PRNs taken, but appears to be doing less walking than he had been before, does not appear restless or uncomfortable. continue current mgmt, check tegretol level 2 weeks after dose change (02/08). 01/28: stable presentation. intermittent sleep disturbance. continue current mgmt. 01/29: Continue current management. Benadryl for allergies 01/30: Continue current plan of care. 01/31: continues to ask for lots of PRNs. no change in presentation. 01/28 mild anemia and hyponatremia; trend. tegretol level 10.3. 02/01: series of abnormal and dynamic EKGs; today's WNL. cardiology consult requested for opinion. will start lithium pending cards opinion re EKG series. no change in presentation. 02/02: appreciate cardiology consultation and opinion. echocardiogram ordered. lithium started. appears better able to tolerate longer interaction today. 02/03: improved ability to tolerate social engagements continues. feels lithium has been helpful. akathisia likely. decrease haldol 02/10/10 to 5 BID and add thorazine 25 BID at 0900 and 1300. 02/04: clear uptick in psychotic.manic behavior yesterday after haldol dose decrease. eloped today. increase thorazine to 100/100/200 with PRNS available. 02/05: no concerning behaviors since elopement yesterday. refused PO haldol last night, otherwise med compliant. 02/06: med-compliant, no concerning behaviors. continue current mgmt. 02/07: check BMP along with lithium level. stable presentation. 02/08: CBC/BMP not concerning. lithium 0.6, tegretol 9.0. increase lithium dosing from 600 BID to 600/900 as of tonight. DC haldol entirely out of concerns for akathisia. invega not a great option due to tegretol interaction. start prolixin PO with IM back-up as alternative neuroleptic to haldol. 02/09: Continue current tx plan. 02/10: increaser prolixin from 5 BID to 5 TID. otherwise continue current mgmt. Reason for continued inpatient stay Substantial Risk for: harm to self, inability to function and rapid decompensation Time Spent With Patient Time: Total time managing care of this patient today __25__ minutes.
[2023-02-10] MEDS: diphenhydrAMINE HCL 25 MG CAPSULE 50 MG PO (18:11)
[2023-02-10 20:30] VITALS: BP 113/58; PULSE 81; RESP 18; TEMP 36.2; O2SAT 98
[2023-02-10] MEDS: chlorproMAZINE HCl 100 MG TABLET 200 MG PO (21:00)
[2023-02-10] MEDS: Lithium Carbonate ER 450 MG TABLET.ER 900 MG PO (21:01)
[2023-02-10] MEDS: Acetaminophen 325 MG TABLET 650 MG PO (21:04)
[2023-02-11] MEDS: Thiamine HCL 100 MG TABLET PO (10:06)
[2023-02-11] MEDS: chlorproMAZINE HCl 100 MG TABLET PO ×4 (10:06→20:17)
[2023-02-11] MEDS: Folic Acid 1 MG TABLET PO (10:06)
[2023-02-11] MEDS: Benztropine Mesylate 1 MG TABLET PO ×2 (10:06→21:30)
[2023-02-11] MEDS: Lithium Carbonate ER 300 MG TABLET.ER 600 MG PO (10:06)
[2023-02-11] MEDS: carBAMazepine 200 MG TABLET 400 MG PO ×2 (10:06→21:30)
[2023-02-11 11:20] VITALS: BP 122/82; PULSE 82; RESP 16; TEMP 36.5; O2SAT 97
--- NOTE | 2023-02-11 12:20 | HO.PSYCHPN ---
Subjective Subjective Date of Service: 02/11/23 Reason For Visit: Psychosis Interim History: calm, cooperative, responsive. less awkward interactions. no questions or complaints. per staff, visible, pacing. AH doing all right. taking meds. less frequently asking for PRNs. flat, guarded. slept O/N. Mental Status Exam Mental Status Exam Narrative: adequately dressed and groomed. up and about the unit pacing. cooperative. linear, logical. guarded. affect constricted, no SI/HI/AVH expressed, Diagnostics Vital Signs (24Hr): Vital Signs - 24 hr 02/10/23 20:30 Temperature 97.1 F Pulse Rate 81 Respiratory Rate 18 Blood Pressure 113/58 L Pulse Oximetry 98 Oxygen Delivery Method Room Air BMI result Body Mass Index 27.8 Labs 02/07/23 20:01 02/07/23 20:01 Medications Medications Current Medications Acetaminophen (Acetaminophen 325 Mg Tablet) 650 mg PO Q6H PRN PRN Reason: Headache/Pain Mild Scale (1-3) Last Admin: 02/10/23 21:04 Dose: 650 mg Al Hydroxide/Mg Hydroxide (Magnesium Hydrox/Alum Hydrox 30 Ml Oral.Susp) 30 ml PO Q6H PRN PRN Reason: Heartburn/Nausea Last Admin: 01/29/23 22:57 Dose: 30 ml Benzocaine (Throat Lozenge, Medicated Lozenge) 1 lozenge MUCOUS MEM Q2H PRN PRN Reason: Sore Throat Last Admin: 02/07/23 21:47 Dose: 1 lozenge Benztropine Mesylate (Benztropine Mesylate 1 Mg Tablet) 1 mg PO BID [facility] Last Admin: 02/11/23 10:06 Dose: 1 mg Carbamazepine (Carbamazepine 200 Mg Tablet) 400 mg PO BID [facility] Last Admin: 02/11/23 10:06 Dose: 400 mg Chlorpromazine HCl (Chlorpromazine Hcl 100 Mg Tablet) 200 mg PO BEDTIME [facility] Last Admin: 02/10/23 21:00 Dose: 200 mg Chlorpromazine HCl (Chlorpromazine Hcl 100 Mg Tablet) 100 mg PO BID@0900,1300 [facility] Last Admin: 02/11/23 10:06 Dose: 100 mg Chlorpromazine HCl (Chlorpromazine Hcl 100 Mg Tablet) 100 mg PO Q4H PRN PRN Reason: agitation/anxiety Last Admin: 02/11/23 11:20 Dose: 100 mg Clonidine HCl (Clonidine Hcl 0.1 Mg Tablet) 0.1 mg PO Q2H PRN; Protocol PRN Reason: agitation/signs of opioid withdrawal Last Admin: 02/01/23 21:26 Dose: 0.1 mg Diphenhydramine HCl (Diphenhydramine Hcl 25 Mg Capsule) 50 mg PO Q6H PRN PRN Reason: Allergic Symptoms Last Admin: 02/10/23 18:11 Dose: 50 mg Fluphenazine HCl (Fluphenazine Hcl 5 Mg Tablet) 5 mg PO TID [facility] Last Admin: 02/11/23 10:07 Dose: 5 mg Fluphenazine HCl (Fluphenazine Hcl 2.5 Mg/Ml 10 Ml Vial) 5 mg IM TID PRN PRN Reason: refusal of PO fluphenazine Folic Acid (Folic Acid 1 Mg Tablet) 1 mg PO DAILY [facility] Last Admin: 02/11/23 10:06 Dose: 1 mg [place] Carbonate ([place] Carbonate Er 300 Mg Tablet.Er) 600 mg PO DAILY [facility] Last Admin: 02/11/23 10:06 Dose: 600 mg [place] Carbonate ([place] Carbonate Er 450 Mg Tablet.Er) 900 mg PO BEDTIME [facility] Last Admin: 02/10/23 21:01 Dose: 900 mg Lorazepam (Lorazepam 2 Mg/Ml Vial) 2 mg IM BID PRN PRN Reason: refusal of tegretol or lithium Magnesium Hydroxide (Milk Of Magnesia 30 Ml Oral.Susp) 30 ml PO DAILY PRN PRN Reason: Constipation Multi-Ingred Cream/Lotion/Oil/Oint (Mineral Oil/Petrolatum,White 106 Gm Tube) 1 appl TOPICAL BID [facility]; Protocol Last Admin: 02/11/23 10:08 Dose: Not Given Nicotine (Nicotine 21 Mg Patch.Td24) 21 mg TRANSDERMA DAILY PRN PRN Reason: smoking cessation Last Admin: 01/15/23 16:06 Dose: 21 mg Nicotine Polacrilex (Nicotine Polacrilex 2 Mg Gum) 4 mg BUCCAL Q2H PRN PRN Reason: nicotine cravings Last Admin: 02/09/23 11:45 Dose: 4 mg Ondansetron HCl (Ondansetron Odt 4 Mg Tab.Rapdis) 4 mg TRANSLINGU Q6H PRN PRN Reason: Nausea and Vomiting Last Admin: 01/28/23 14:44 Dose: 4 mg Thiamine HCl (Thiamine Hcl 100 Mg Tablet) 100 mg PO DAILY [facility] Last Admin: 02/11/23 10:06 Dose: 100 mg Trazodone HCl (Trazodone Hcl 50 Mg Tablet) 50 mg PO BEDTIME MRX1 PRN PRN Reason: Insomnia Last Admin: 02/09/23 23:58 Dose: 50 mg Allergies Allergies Allergy/AdvReac Type Severity Reaction Status Date / Time morphine [MORPHINE] AdvReac Unknown NAUSEA Verified 12/10/22 19:56 Assessment & Plan Assessment & Plan (1) Nonspecific ST-T wave electrocardiographic changes: Status: Acute Code(s): R94.31 - Abnormal electrocardiogram [ECG] [EKG] Assessment and Plan: Patient with nonspecific ST T wave changes which had dynamic. Unclear significance of these. He has no cardiac symptoms whatsoever. Normal physical exam. The septal Q-waves noted on EKG few days ago and not on yesterday's EKG on most likely due to lead placement and not suggestive for septal infarct. Would suggest an echocardiogram as cooking can be associated with cardiomyopathy. If this is within normal limits no further workup is indicated. There is no issues with use of lithium if it is absolutely necessary to use this to treat his psychiatric condition. No further 0 or other workup is indicated. (2) Cocaine use disorder: Status: Acute Code(s): F14.10 - Cocaine abuse, uncomplicated (3) Schizoaffective disorder, bipolar type: Status: Acute Code(s): F25.0 - Schizoaffective disorder, bipolar type (4) Opioid use disorder: Status: Acute Code(s): F11.90 - Opioid use, unspecified, uncomplicated Plan 12/24: attempt to give anti-psychotics. comfort meds for opioid and cocaine withdrawal. 12/25: refusing medications. period of agitation last night slamming doors and yelling (presumably @). continue current mgmt. 12/26: refusing meds. binging and purging. floridly psychotic. 12/27: had meds last night for sleep, per his request. schedule all haldol tonight with ativan and cogentin. a bit more interactive today, remains delayed and distracted. no binging/purging behaviors or agitated behaviors described by RN report today. 12/28: refused meds last night. Today asks for meds for sx mgt- aggressive today-threw two coffee cups. Begin Depakote 250 mg bid. 12/29: got multiple meds last NOC and overnight per his request. slept 2 hours. refusing meds this morning. commitment paperwork completed. 3-day notice expires tomorrow. c/o opioid craving, asked for methadone. methadone 30 mg daily started today. 12/30: filed for commitment today. haldol and ativan per his request last night. appears in disbelief that he will not be discharged today. 12/31: demanding to leave, getting agitated, banging on nursing station, slamming doors in his room. given IMs x 2, haldol 10 ativan 2 benadryl 50 for first and thorazine 100 for second. 01/01: Remains unpredictable and irritable. Refusing scheduled medications. Section 7/ filed. 01/02: Continue current management. 01/03: refusing meds. irritable, labile. periods of agitation. continue current mgmt, awaiting hearing for . 01/04: refusing meds. irritable, labile. periods of agitation. continue current mgmt, though pt is refusing meds. 01/05: thought-blocked. denies mental illness or need for medications. offer medications. hearing tomorrow. 01/06: committed and ordered medications at hearing. 06/12/20 [facility] [place] DC summary reviewd, pt was discharged on VPA, zyprexa, haldol. 03/14/20 DC summary reviewed, pt discharged on zyprexa, haldol. pt unable to comprehend result, agitated not to be leaving today. 01/07: copy of court order on unit, will order meds accordingly today. no change in presentation. 01/08: Continue current regimen and plans 01/09: Continue current plans and regimen. Discontinue contingent IM Ativan if Depakote refused 01/10: Continue current regimen and plans. 01/11: DC VPA, start tegretol per pt preference. ativan 2 mg IM for refusal of tegretol. continue haldol PO/IM orders. improved from last week. less agitated, a bit more organized and engaging. 01/12: appears more disorganized again today, trouble engaging. refused PO meds last night but did take tegretol PO this morning. 01/13: continues disorganized, difficulty expressing himself. refusing PO meds since yesterday morning. slept 10 hours last night, however 01/14: intermittently taking meds PO versus IM. improved behavior from prior to med order, but remains floridly psychotic. continue current mgmt. 01/16/2023: No changes to current plan 01/17: more compliant with tegretol in recent days, still getting haldol IM. no change in presentation. continue current mgmt. 01/18: remains psychotic, labile. increase tegretol to 300 mg BID. 01/19: continues more aggressive and labile today. increase haldol to 10 BID with back-up IM of 7.5 mg. 01/20: more calm today,periods of agitation, however, in the past 24H. continue current mgmt. declines to change scheduled haldol to thorazine (proposed by MD in the hope he would in order to spare him the IMs). 01/21 continue tx. 01/22 writing for thorazine at bed- mr x1 and check ekg given other antipsychotics on board 01/23 agreed to ekg today, added 1pm dose of 5mg haldol 01/24: taking meds PO, still suffering from AH, possibly VH. perhaps trending more calm, but clearly still periods of agitation in the past several days. 01/25: labile, paranoid delusions. informed staff he experiences AH, mumbles recently. increase tegretol to 400 BID, make IR formulation as he has been chewing the pills. 01/26: more calm today. continue current mgmt. 01/27: continues more calm. some staff concerned for akathisia due to pacing and number of PRNs taken, but appears to be doing less walking than he had been before, does not appear restless or uncomfortable. continue current mgmt, check tegretol level 2 weeks after dose change (02/08). 01/28: stable presentation. intermittent sleep disturbance. continue current mgmt. 01/29: Continue current management. Benadryl for allergies 01/30: Continue current plan of care. 01/31: continues to ask for lots of PRNs. no change in presentation. 01/28 mild anemia and hyponatremia; trend. tegretol level 10.3. 02/01: series of abnormal and dynamic EKGs; today's WNL. cardiology consult requested for opinion. will start lithium pending cards opinion re EKG series. no change in presentation. 02/02: appreciate cardiology consultation and opinion. echocardiogram ordered. lithium started. appears better able to tolerate longer interaction today. 02/03: improved ability to tolerate social engagements continues. feels lithium has been helpful. akathisia likely. decrease haldol 02/10/10 to 5 BID and add thorazine 25 BID at 0900 and 1300. 02/04: clear uptick in psychotic.manic behavior yesterday after haldol dose decrease. eloped today. increase thorazine to 100/100/200 with PRNS available. 02/05: no concerning behaviors since elopement yesterday. refused PO haldol last night, otherwise med compliant. 02/06: med-compliant, no concerning behaviors. continue current mgmt. 02/07: check BMP along with lithium level. stable presentation. 02/08: CBC/BMP not concerning. lithium 0.6, tegretol 9.0. increase lithium dosing from 600 BID to 600/900 as of tonsohail. DC haldol entirely out of concerns for akathisia. invega not a great option due to tegretol interaction. start prolixin PO with IM back-up as alternative neuroleptic to haldol. 02/09: Continue current tx plan. 02/10: increase prolixin from 5 BID to 5 TID. otherwise continue current mgmt. 02/11: continue current mgmt. check labs jeferson of 02/13. Reason for continued inpatient stay Substantial Risk for: harm to self, harm to others, inability to function and rapid decompensation Time Spent With Patient Time: Total time managing care of this patient today __25__ minutes.
[2023-02-11] MEDS: Acetaminophen 325 MG TABLET 650 MG PO (17:28)
[2023-02-11] MEDS: diphenhydrAMINE HCL 25 MG CAPSULE 50 MG PO (18:55)
[2023-02-11 20:00] VITALS: BP 130/72; PULSE 76; RESP 16; TEMP 36.9; O2SAT 97
[2023-02-11] MEDS: chlorproMAZINE HCl 100 MG TABLET 200 MG PO (21:30)
[2023-02-11] MEDS: Lithium Carbonate ER 450 MG TABLET.ER 900 MG PO (21:30)
--- NOTE | 2023-02-12 03:31 | PC.NURSE ---
Miguel Ángel requested this nurse to cut out string from sweatpants and give to him. Strings were removed from 2 pairs of sweatpants and sweatpants without strings given to patient.
[2023-02-12] MEDS: Acetaminophen 325 MG TABLET 650 MG PO ×2 (04:13→17:43)
[2023-02-12] MEDS: Thiamine HCL 100 MG TABLET PO (09:28)
[2023-02-12] MEDS: Benztropine Mesylate 1 MG TABLET PO ×2 (09:29→20:55)
[2023-02-12] MEDS: Folic Acid 1 MG TABLET PO (09:29)
[2023-02-12] MEDS: Lithium Carbonate ER 300 MG TABLET.ER 600 MG PO (09:30)
[2023-02-12] MEDS: carBAMazepine 200 MG TABLET 400 MG PO ×2 (09:30→20:55)
[2023-02-12 11:38] VITALS: BP 103/63; PULSE 95; RESP 16; TEMP 36.2; O2SAT 96
--- NOTE | 2023-02-12 12:19 | HO.PSYCHPN ---
Subjective Subjective Date of Service: 02/12/23 Reason For Visit: Psychosis Interim History: He has been calm, cooperative, responsive. He appears to respond to internal stimuli when observed on the unit. He has no questions or complaints. He paces. Not social. Taking meds. less frequently asking for PRNs. flat, guarded. slept O/N. Review of Systems Review of Systems unremarkable Yes all other systems are reviewed and are negative and Unobtainable due to mental status Constitutional: Reports as per HPI Eyes: Reports as per HPI Reports as per HPI Cardiovascular: Reports as per HPI Respiratory: Reports as per HPI Gastrointestinal: Reports as per HPI Genitourinary: Reports as per HPI Musculoskeletal: Reports as per HPI Skin/Breast: Reports as per HPI Reports as per HPI Psychiatric: Reports as per HPI Endocrine: Reports as per HPI Hematologic/Lymphatic: Reports as per HPI Allergic/Immunologic: Reports as per HPI Mental Status Exam Mental Status Exam Narrative: adequately dressed and groomed. up and about the unit pacing. cooperative. linear, logical. guarded. affect constricted, no SI/HI/AVH expressed, Patient Appearance: Inappropriate Patient Orientation: Person, Place, Time and Situation Level of Consciousness: Awake and Restless Patient Behavior: Restless, Distractible, Good Eye Contact and Impulsive Behavior Comments: can be irritable in pm Mood Description: Calm (in ams ) Affect Description: Labile Patient Cognition Impaired: Yes Ability to Follow Directions: Fair Speech Pattern: Clear Memory Description: Remote Impaired Diagnostics Vital Signs (24Hr): Vital Signs - 24 hr 02/11/23 20:00 02/12/23 11:38 Temperature 98.5 F 97.2 F Pulse Rate 76 95 Respiratory Rate 16 16 Blood Pressure 130/72 103/63 Pulse Oximetry 97 96 Oxygen Delivery Method Room Air Room Air BMI result Body Mass Index 27.8 Labs 02/07/23 20:01 02/07/23 20:01 Medications Medications Current Medications Acetaminophen (Acetaminophen 325 Mg Tablet) 650 mg PO Q6H PRN PRN Reason: Headache/Pain Mild Scale (1-3) Last Admin: 02/12/23 04:13 Dose: 650 mg Al Hydroxide/Mg Hydroxide (Magnesium Hydrox/Alum Hydrox 30 Ml Oral.Susp) 30 ml PO Q6H PRN PRN Reason: Heartburn/Nausea Last Admin: 01/29/23 22:57 Dose: 30 ml Benzocaine (Throat Lozenge, Medicated Lozenge) 1 lozenge MUCOUS MEM Q2H PRN PRN Reason: Sore Throat Last Admin: 02/07/23 21:47 Dose: 1 lozenge Benztropine Mesylate (Benztropine Mesylate 1 Mg Tablet) 1 mg PO BID [facility] Last Admin: 02/12/23 09:29 Dose: 1 mg Carbamazepine (Carbamazepine 200 Mg Tablet) 400 mg PO BID [facility] Last Admin: 02/12/23 09:30 Dose: 400 mg Chlorpromazine HCl (Chlorpromazine Hcl 100 Mg Tablet) 200 mg PO BEDTIME [facility] Last Admin: 02/11/23 21:30 Dose: 200 mg Chlorpromazine HCl (Chlorpromazine Hcl 100 Mg Tablet) 100 mg PO BID@0900,1300 [facility] Last Admin: 02/12/23 09:30 Dose: 100 mg Chlorpromazine HCl (Chlorpromazine Hcl 100 Mg Tablet) 100 mg PO Q4H PRN PRN Reason: agitation/anxiety Last Admin: 02/11/23 20:17 Dose: 100 mg Clonidine HCl (Clonidine Hcl 0.1 Mg Tablet) 0.1 mg PO Q2H PRN; Protocol PRN Reason: agitation/signs of opioid withdrawal Last Admin: 02/01/23 21:26 Dose: 0.1 mg Diphenhydramine HCl (Diphenhydramine Hcl 25 Mg Capsule) 50 mg PO Q6H PRN PRN Reason: Allergic Symptoms Last Admin: 02/11/23 18:55 Dose: 50 mg Fluphenazine HCl (Fluphenazine Hcl 5 Mg Tablet) 5 mg PO TID [facility] Last Admin: 02/12/23 09:29 Dose: 5 mg Fluphenazine HCl (Fluphenazine Hcl 2.5 Mg/Ml 10 Ml Vial) 5 mg IM TID PRN PRN Reason: refusal of PO fluphenazine Folic Acid (Folic Acid 1 Mg Tablet) 1 mg PO DAILY [facility] Last Admin: 02/12/23 09:29 Dose: 1 mg [place] Carbonate ([place] Carbonate Er 300 Mg Tablet.Er) 600 mg PO DAILY [facility] Last Admin: 02/12/23 09:30 Dose: 600 mg [place] Carbonate ([place] Carbonate Er 450 Mg Tablet.Er) 900 mg PO BEDTIME [facility] Last Admin: 02/11/23 21:30 Dose: 900 mg Lorazepam (Lorazepam 2 Mg/Ml Vial) 2 mg IM BID PRN PRN Reason: refusal of tegretol or lithium Magnesium Hydroxide (Milk Of Magnesia 30 Ml Oral.Susp) 30 ml PO DAILY PRN PRN Reason: Constipation Multi-Ingred Cream/Lotion/Oil/Oint (Mineral Oil/Petrolatum,White 106 Gm Tube) 1 appl TOPICAL BID [facility]; Protocol Last Admin: 02/12/23 10:59 Dose: Not Given Nicotine (Nicotine 21 Mg Patch.Td24) 21 mg TRANSDERMA DAILY PRN PRN Reason: smoking cessation Last Admin: 01/15/23 16:06 Dose: 21 mg Nicotine Polacrilex (Nicotine Polacrilex 2 Mg Gum) 4 mg BUCCAL Q2H PRN PRN Reason: nicotine cravings Last Admin: 02/09/23 11:45 Dose: 4 mg Ondansetron HCl (Ondansetron Odt 4 Mg Tab.Rapdis) 4 mg TRANSLINGU Q6H PRN PRN Reason: Nausea and Vomiting Last Admin: 01/28/23 14:44 Dose: 4 mg Thiamine HCl (Thiamine Hcl 100 Mg Tablet) 100 mg PO DAILY [facility] Last Admin: 02/12/23 09:28 Dose: 100 mg Trazodone HCl (Trazodone Hcl 50 Mg Tablet) 50 mg PO BEDTIME MRX1 PRN PRN Reason: Insomnia Last Admin: 02/09/23 23:58 Dose: 50 mg Allergies Allergies Allergy/AdvReac Type Severity Reaction Status Date / Time morphine [MORPHINE] AdvReac Unknown NAUSEA Verified 12/10/22 19:56 Assessment & Plan Assessment & Plan (1) Nonspecific ST-T wave electrocardiographic changes: Status: Acute Code(s): R94.31 - Abnormal electrocardiogram [ECG] [EKG] Assessment and Plan: Patient with nonspecific ST T wave changes which had dynamic. Unclear significance of these. He has no cardiac symptoms whatsoever. Normal physical exam. The septal Q-waves noted on EKG few days ago and not on yesterday's EKG on most likely due to lead placement and not suggestive for septal infarct. Would suggest an echocardiogram as cooking can be associated with cardiomyopathy. If this is within normal limits no further workup is indicated. There is no issues with use of lithium if it is absolutely necessary to use this to treat his psychiatric condition. No further 0 or other workup is indicated. (2) Cocaine use disorder: Status: Acute Code(s): F14.10 - Cocaine abuse, uncomplicated (3) Schizoaffective disorder, bipolar type: Status: Acute Code(s): F25.0 - Schizoaffective disorder, bipolar type (4) Opioid use disorder: Status: Acute Code(s): F11.90 - Opioid use, unspecified, uncomplicated Plan 12/24: attempt to give anti-psychotics. comfort meds for opioid and cocaine withdrawal. 12/25: refusing medications. period of agitation last night slamming doors and yelling (presumably @). continue current mgmt. 12/26: refusing meds. binging and purging. floridly psychotic. 12/27: had meds last night for sleep, per his request. schedule all haldol tonight with ativan and cogentin. a bit more interactive today, remains delayed and distracted. no binging/purging behaviors or agitated behaviors described by RN report today. 12/28: refused meds last night. Today asks for meds for sx mgt- aggressive today-threw two coffee cups. Begin Depakote 250 mg bid. 12/29: got multiple meds last NOC and overnight per his request. slept 2 hours. refusing meds this morning. commitment paperwork completed. 3-day notice expires tomorrow. c/o opioid craving, asked for methadone. methadone 30 mg daily started today. 12/30: filed for commitment today. haldol and ativan per his request last night. appears in disbelief that he will not be discharged today. 12/31: demanding to leave, getting agitated, banging on nursing station, slamming doors in his room. given IMs x 2, haldol 10 ativan 2 benadryl 50 for first and thorazine 100 for second. 01/01: Remains unpredictable and irritable. Refusing scheduled medications. Section 7/ filed. 01/02: Continue current management. 01/03: refusing meds. irritable, labile. periods of agitation. continue current mgmt, awaiting hearing for . 01/04: refusing meds. irritable, labile. periods of agitation. continue current mgmt, though pt is refusing meds. 01/05: thought-blocked. denies mental illness or need for medications. offer medications. hearing tomorrow. 01/06: committed and ordered medications at hearing. 06[place] [facility] [place] pt was discharged on VPA, zyprexa, haldol. 03/14/20 DC summary reviewed, pt discharged on zyprexa, haldol. pt unable to comprehend result, agitated not to be leaving today. 01/07: copy of court order on unit, will order meds accordingly today. no change in presentation. 01/08: Continue current regimen and plans 01/09: Continue current plans and regimen. Discontinue contingent IM Ativan if Depakote refused 01/10: Continue current regimen and plans. 01/11: DC VPA, start tegretol per pt preference. ativan 2 mg IM for refusal of tegretol. continue haldol PO/IM orders. improved from last week. less agitated, a bit more organized and engaging. 01/12: appears more disorganized again today, trouble engaging. refused PO meds last night but did take tegretol PO this morning. 01/13: continues disorganized, difficulty expressing himself. refusing PO meds since yesterday morning. slept 10 hours last night, however 01/14: intermittently taking meds PO versus IM. improved behavior from prior to med order, but remains floridly psychotic. continue current mgmt. 01/16/2023: No changes to current plan 01/17: more compliant with tegretol in recent days, still getting haldol IM. no change in presentation. continue current mgmt. 01/18: remains psychotic, labile. increase tegretol to 300 mg BID. 01/19: continues more aggressive and labile today. increase haldol to 10 BID with back-up IM of 7.5 mg. 01/20: more calm today,periods of agitation, however, in the past 24H. continue current mgmt. declines to change scheduled haldol to thorazine (proposed by MD in the hope he would in order to spare him the IMs). 01/21 continue tx. 01/22 writing for thorazine at bed- mr x1 and check ekg given other antipsychotics on board 01/23 agreed to ekg today, added 1pm dose of 5mg haldol 01/24: taking meds PO, still suffering from AH, possibly VH. perhaps trending more calm, but clearly still periods of agitation in the past several days. 01/25: labile, paranoid delusions. informed staff he experiences AH, mumbles recently. increase tegretol to 400 BID, make IR formulation as he has been chewing the pills. 01/26: more calm today. continue current mgmt. 01/27: continues more calm. some staff concerned for akathisia due to pacing and number of PRNs taken, but appears to be doing less walking than he had been before, does not appear restless or uncomfortable. continue current mgmt, check tegretol level 2 weeks after dose change (02/08). 01/28: stable presentation. intermittent sleep disturbance. continue current mgmt. 01/29: Continue current management. Benadryl for allergies 01/30: Continue current plan of care. 01/31: continues to ask for lots of PRNs. no change in presentation. 01/28 mild anemia and hyponatremia; trend. tegretol level 10.3. 02/01: series of abnormal and dynamic EKGs; today's WNL. cardiology consult requested for opinion. will start lithium pending cards opinion re EKG series. no change in presentation. 02/02: appreciate cardiology consultation and opinion. echocardiogram ordered. lithium started. appears better able to tolerate longer interaction today. 02/03: improved ability to tolerate social engagements continues. feels lithium has been helpful. akathisia likely. decrease haldol 02/10/10 to 5 BID and add thorazine 25 BID at 0900 and 1300. 02/04: clear uptick in psychotic.manic behavior yesterday after haldol dose decrease. eloped today. increase thorazine to 100/100/200 with PRNS available. 02/05: no concerning behaviors since elopement yesterday. refused PO haldol last night, otherwise med compliant. 02/06: med-compliant, no concerning behaviors. continue current mgmt. 02/07: check BMP along with lithium level. stable presentation. 02/08: CBC/BMP not concerning. lithium 0.6, tegretol 9.0. increase lithium dosing from 600 BID to 600/900 as of tonight. DC haldol entirely out of concerns for akathisia. invega not a great option due to tegretol interaction. start prolixin PO with IM back-up as alternative neuroleptic to haldol. 02/09: Continue current tx plan. 02/10: increase prolixin from 5 BID to 5 TID. otherwise continue current mgmt. 02/11: continue current mgmt. check labs jeferson of 02/13. 02/12: Continue current plan. Check labs in AM. Reason for continued inpatient stay Substantial Risk for: inability to function and rapid decompensation Time Spent With Patient Time: Total time managing care of this patient today ____ minutes.
[2023-02-12] MEDS: diphenhydrAMINE HCL 25 MG CAPSULE 50 MG PO ×2 (12:20→19:01)
[2023-02-12] MEDS: chlorproMAZINE HCl 100 MG TABLET PO ×2 (14:39→23:07)
[2023-02-12] MEDS: chlorproMAZINE HCl 100 MG TABLET 200 MG PO (20:17)
[2023-02-12] MEDS: Lithium Carbonate ER 450 MG TABLET.ER 900 MG PO (20:55)
[2023-02-12] MEDS: traZODone HCL 50 MG TABLET PO (20:55)
[2023-02-13] MEDS: Benztropine Mesylate 1 MG TABLET PO ×2 (09:34→20:15)
[2023-02-13] MEDS: Thiamine HCL 100 MG TABLET PO (09:35)
[2023-02-13] MEDS: Lithium Carbonate ER 300 MG TABLET.ER 600 MG PO (09:35)
[2023-02-13] MEDS: Folic Acid 1 MG TABLET PO (09:35)
[2023-02-13] MEDS: carBAMazepine 200 MG TABLET 400 MG PO ×2 (09:36→20:14)
[2023-02-13] MEDS: diphenhydrAMINE HCL 25 MG CAPSULE 50 MG PO (18:36)
--- NOTE | 2023-02-13 19:10 | HO.PSYCHPN ---
Subjective Subjective Date of Service: 02/13/23 Reason For Visit: Psychosis Interim History: He has been calm, cooperative, responsive. He appears to respond to internal stimuli when observed on the unit. He has no questions or complaints. He paces. Not social. Taking meds. less frequently asking for PRNs. flat, guarded. slept O/N. Review of Systems Review of Systems unremarkable Yes all other systems are reviewed and are negative and Unobtainable due to mental status Constitutional: Reports as per HPI Eyes: Reports as per HPI Reports as per HPI Cardiovascular: Reports as per HPI Respiratory: Reports as per HPI Gastrointestinal: Reports as per HPI Genitourinary: Reports as per HPI Musculoskeletal: Reports as per HPI Skin/Breast: Reports as per HPI Reports as per HPI Psychiatric: Reports as per HPI Endocrine: Reports as per HPI Hematologic/Lymphatic: Reports as per HPI Allergic/Immunologic: Reports as per HPI Mental Status Exam Mental Status Exam Narrative: adequately dressed and groomed. up and about the unit pacing. cooperative. linear, logical. guarded. affect constricted, no SI/HI/AVH expressed, Patient Appearance: Inappropriate Patient Orientation: Person, Place, Time and Situation Level of Consciousness: Awake and Restless Patient Behavior: Restless, Distractible, Good Eye Contact and Impulsive Behavior Comments: can be irritable in pm Mood Description: Calm (in ams ) Affect Description: Labile Patient Cognition Impaired: Yes Ability to Follow Directions: Fair Speech Pattern: Clear Memory Description: Remote Impaired Diagnostics Vital Signs (24Hr): BMI result Body Mass Index 27.8 Labs 02/07/23 20:01 02/13/23 20:06 Medications Medications Current Medications Acetaminophen (Acetaminophen 325 Mg Tablet) 650 mg PO Q6H PRN PRN Reason: Headache/Pain Mild Scale (1-3) Last Admin: 02/12/23 17:43 Dose: 650 mg Al Hydroxide/Mg Hydroxide (Magnesium Hydrox/Alum Hydrox 30 Ml Oral.Susp) 30 ml PO Q6H PRN PRN Reason: Heartburn/Nausea Last Admin: 01/29/23 22:57 Dose: 30 ml Benzocaine (Throat Lozenge, Medicated Lozenge) 1 lozenge MUCOUS MEM Q2H PRN PRN Reason: Sore Throat Last Admin: 02/07/23 21:47 Dose: 1 lozenge Benztropine Mesylate (Benztropine Mesylate 1 Mg Tablet) 1 mg PO BID [facility] Last Admin: 02/13/23 09:34 Dose: 1 mg Carbamazepine (Carbamazepine 200 Mg Tablet) 400 mg PO BID [facility] Last Admin: 02/13/23 09:36 Dose: 400 mg Chlorpromazine HCl (Chlorpromazine Hcl 100 Mg Tablet) 200 mg PO BEDTIME [facility] Last Admin: 02/12/23 20:17 Dose: 200 mg Chlorpromazine HCl (Chlorpromazine Hcl 100 Mg Tablet) 100 mg PO BID@0900,1300 [facility] Last Admin: 02/13/23 13:47 Dose: 100 mg Chlorpromazine HCl (Chlorpromazine Hcl 100 Mg Tablet) 100 mg PO Q4H PRN PRN Reason: agitation/anxiety Last Admin: 02/12/23 23:07 Dose: 100 mg Clonidine HCl (Clonidine Hcl 0.1 Mg Tablet) 0.1 mg PO Q2H PRN; Protocol PRN Reason: agitation/signs of opioid withdrawal Last Admin: 02/01/23 21:26 Dose: 0.1 mg Diphenhydramine HCl (Diphenhydramine Hcl 25 Mg Capsule) 50 mg PO Q6H PRN PRN Reason: Allergic Symptoms Last Admin: 02/13/23 18:36 Dose: 50 mg Fluphenazine HCl (Fluphenazine Hcl 5 Mg Tablet) 5 mg PO TID [facility] Last Admin: 02/13/23 15:25 Dose: 5 mg Fluphenazine HCl (Fluphenazine Hcl 2.5 Mg/Ml 10 Ml Vial) 5 mg IM TID PRN PRN Reason: refusal of PO fluphenazine Folic Acid (Folic Acid 1 Mg Tablet) 1 mg PO DAILY [facility] Last Admin: 02/13/23 09:35 Dose: 1 mg Casanova Carbonate (Casanova Carbonate Er 300 Mg Tablet.Er) 600 mg PO DAILY [facility] Last Admin: 02/13/23 09:35 Dose: 600 mg Casanova Carbonate (Casanova Carbonate Er 450 Mg Tablet.Er) 900 mg PO BEDTIME [facility] Last Admin: 02/12/23 20:55 Dose: 900 mg Magnesium Hydroxide (Milk Of Magnesia 30 Ml Oral.Susp) 30 ml PO DAILY PRN PRN Reason: Constipation Multi-Ingred Cream/Lotion/Oil/Oint (Mineral Oil/Petrolatum,White 106 Gm Tube) 1 appl TOPICAL BID [facility]; Protocol Last Admin: 02/13/23 09:38 Dose: Not Given Nicotine (Nicotine 21 Mg Patch.Td24) 21 mg TRANSDERMA DAILY PRN PRN Reason: smoking cessation Last Admin: 01/15/23 16:06 Dose: 21 mg Nicotine Polacrilex (Nicotine Polacrilex 2 Mg Gum) 4 mg BUCCAL Q2H PRN PRN Reason: nicotine cravings Last Admin: 02/09/23 11:45 Dose: 4 mg Ondansetron HCl (Ondansetron Odt 4 Mg Tab.Rapdis) 4 mg TRANSLINGU Q6H PRN PRN Reason: Nausea and Vomiting Last Admin: 01/28/23 14:44 Dose: 4 mg Thiamine HCl (Thiamine Hcl 100 Mg Tablet) 100 mg PO DAILY [facility] Last Admin: 02/13/23 09:35 Dose: 100 mg Trazodone HCl (Trazodone Hcl 50 Mg Tablet) 50 mg PO BEDTIME MRX1 PRN PRN Reason: Insomnia Last Admin: 02/12/23 20:55 Dose: 50 mg Allergies Allergies Allergy/AdvReac Type Severity Reaction Status Date / Time morphine [MORPHINE] AdvReac Unknown NAUSEA Verified 12/10/22 19:56 Assessment & Plan Assessment & Plan (1) Nonspecific ST-T wave electrocardiographic changes: Status: Acute Code(s): R94.31 - Abnormal electrocardiogram [ECG] [EKG] Assessment and Plan: Patient with nonspecific ST T wave changes which had dynamic. Unclear significance of these. He has no cardiac symptoms whatsoever. Normal physical exam. The septal Q-waves noted on EKG few days ago and not on yesterday's EKG on most likely due to lead placement and not suggestive for septal infarct. Would suggest an echocardiogram as cooking can be associated with cardiomyopathy. If this is within normal limits no further workup is indicated. There is no issues with use of lithium if it is absolutely necessary to use this to treat his psychiatric condition. No further 0 or other workup is indicated. (2) Cocaine use disorder: Status: Acute Code(s): F14.10 - Cocaine abuse, uncomplicated (3) Schizoaffective disorder, bipolar type: Status: Acute Code(s): F25.0 - Schizoaffective disorder, bipolar type (4) Opioid use disorder: Status: Acute Code(s): F11.90 - Opioid use, unspecified, uncomplicated Plan 12/24: attempt to give anti-psychotics. comfort meds for opioid and cocaine withdrawal. 12/25: refusing medications. period of agitation last night slamming doors and yelling (presumably @AH). continue current mgmt. 12/26: refusing meds. binging and purging. floridly psychotic. 12/27: had meds last night for sleep, per his request. schedule all haldol tonight with ativan and cogentin. a bit more interactive today, remains delayed and distracted. no binging/purging behaviors or agitated behaviors described by RN report today. 12/28: refused meds last night. Today asks for meds for sx mgt- aggressive today-threw two coffee cups. Begin Depakote 250 mg bid. 12/29: got multiple meds last NOC and overnight per his request. slept 2 hours. refusing meds this morning. commitment paperwork completed. 3-day notice expires tomorrow. c/o opioid craving, asked for methadone. methadone 30 mg daily started today. 12/30: filed for commitment today. haldol and ativan per his request last night. appears in disbelief that he will not be discharged today. 12/31: demanding to leave, getting agitated, banging on nursing station, slamming doors in his room. given IMs x 2, haldol 10 ativan 2 benadryl 50 for first and thorazine 100 for second. 01/01: Remains unpredictable and irritable. Refusing scheduled medications. Section 7/ filed. 01/02: Continue current management. 01/03: refusing meds. irritable, labile. periods of agitation. continue current mgmt, awaiting hearing for . 01/04: refusing meds. irritable, labile. periods of agitation. continue current mgmt, though pt is refusing meds. 01/05: thought-blocked. denies mental illness or need for medications. offer medications. hearing tomorrow. 01/06: committed and ordered medications at hearing. 06/12/20 [facility] [place], pt was discharged on VPA, zyprexa, haldol. 03/14/20 DC summary reviewed, pt discharged on zyprexa, haldol. pt unable to comprehend result, agitated not to be leaving today. 01/07: copy of court order on unit, will order meds accordingly today. no change in presentation. 01/08: Continue current regimen and plans 01/09: Continue current plans and regimen. Discontinue contingent IM Ativan if Depakote refused 01/10: Continue current regimen and plans. 01/11: DC VPA, start tegretol per pt preference. ativan 2 mg IM for refusal of tegretol. continue haldol PO/IM orders. improved from last week. less agitated, a bit more organized and engaging. 01/12: appears more disorganized again today, trouble engaging. refused PO meds last night but did take tegretol PO this morning. 01/13: continues disorganized, difficulty expressing himself. refusing PO meds since yesterday morning. slept 10 hours last night, however 01/14: intermittently taking meds PO versus IM. improved behavior from prior to med order, but remains floridly psychotic. continue current mgmt. 01/16/2023: No changes to current plan 01/17: more compliant with tegretol in recent days, still getting haldol IM. no change in presentation. continue current mgmt. 01/18: remains psychotic, labile. increase tegretol to 300 mg BID. 01/19: continues more aggressive and labile today. increase haldol to 10 BID with back-up IM of 7.5 mg. 01/20: more calm today,periods of agitation, however, in the past 24H. continue current mgmt. declines to change scheduled haldol to thorazine (proposed by MD in the hope he would in order to spare him the IMs). 01/21 continue tx. 01/22 writing for thorazine at bed- mr x1 and check ekg given other antipsychotics on board 01/23 agreed to ekg today, added 1pm dose of 5mg haldol 01/24: taking meds PO, still suffering from AH, possibly VH. perhaps trending more calm, but clearly still periods of agitation in the past several days. 01/25: labile, paranoid delusions. informed staff he experiences AH, mumbles recently. increase tegretol to 400 BID, make IR formulation as he has been chewing the pills. 01/26: more calm today. continue current mgmt. 01/27: continues more calm. some staff concerned for akathisia due to pacing and number of PRNs taken, but appears to be doing less walking than he had been before, does not appear restless or uncomfortable. continue current mgmt, check tegretol level 2 weeks after dose change (02/08). 01/28: stable presentation. intermittent sleep disturbance. continue current mgmt. 01/29: Continue current management. Benadryl for allergies 01/30: Continue current plan of care. 01/31: continues to ask for lots of PRNs. no change in presentation. 01/28 mild anemia and hyponatremia; trend. tegretol level 10.3. 02/01: series of abnormal and dynamic EKGs; today's WNL. cardiology consult requested for opinion. will start lithium pending cards opinion re EKG series. no change in presentation. 02/02: appreciate cardiology consultation and opinion. echocardiogram ordered. lithium started. appears better able to tolerate longer interaction today. 02/03: improved ability to tolerate social engagements continues. feels lithium has been helpful. akathisia likely. decrease haldol 02/10/10 to 5 BID and add thorazine 25 BID at 0900 and 1300. 02/04: clear uptick in psychotic.manic behavior yesterday after haldol dose decrease. eloped today. increase thorazine to 100/100/200 with PRNS available. 02/05: no concerning behaviors since elopement yesterday. refused PO haldol last night, otherwise med compliant. 02/06: med-compliant, no concerning behaviors. continue current mgmt. 02/07: check BMP along with lithium level. stable presentation. 02/08: CBC/BMP not concerning. lithium 0.6, tegretol 9.0. increase lithium dosing from 600 BID to 600/900 as of tonight. DC haldol entirely out of concerns for akathisia. invega not a great option due to tegretol interaction. start prolixin PO with IM back-up as alternative neuroleptic to haldol. 02/09: Continue current tx plan. 02/10: increase prolixin from 5 BID to 5 TID. otherwise continue current mgmt. 02/11: continue current mgmt. check labs jeferson of 02/13. 02/12: Continue current plan. Check labs in AM. 10/8: Continue current treatment plan. Li level 0.68, CMZ level 8.6 Reason for continued inpatient stay Substantial Risk for: inability to function and rapid decompensation Time Spent With Patient Time: Total time managing care of this patient today ____ minutes.
[2023-02-13] MEDS: chlorproMAZINE HCl 100 MG TABLET PO (19:31)
[2023-02-13 20:05] VITALS: BP 130/73; PULSE 86; RESP 16; TEMP 36.8; O2SAT 97
[2023-02-13] MEDS: chlorproMAZINE HCl 100 MG TABLET 200 MG PO (20:13)
[2023-02-13] MEDS: Lithium Carbonate ER 450 MG TABLET.ER 900 MG PO (20:15)
[2023-02-13 20:36] LABS: Anion Gap 14 (12-20); Blood Urea Nitrogen 12 mg/dL (9-16); Calcium 10.1 mg/dL (8.4-10.2); Carbon Dioxide 26 mmol/L (22-29); Chloride 105 mmol/L (96-108); Estimated Glomerular Filt Rate > 60; Glucose Random 84 mg/dL (60-115); Potassium 4.1 mmol/L (3.3-5.1); Sodium 141 mmol/L (135-145)
[2023-02-13 20:37] LABS: Carbamazepine Tegretol 8.6 mcg/mL (5.0-12.0)
[2023-02-13] MEDS: Acetaminophen 325 MG TABLET 650 MG PO (20:46)
[2023-02-14 06:00] VITALS: BP 129/72; PULSE 88; TEMP 36.8; O2SAT 97
[2023-02-14] MEDS: Lithium Carbonate ER 300 MG TABLET.ER 600 MG PO (08:50)
[2023-02-14] MEDS: carBAMazepine 200 MG TABLET 400 MG PO ×2 (08:50→21:22)
[2023-02-14] MEDS: Folic Acid 1 MG TABLET PO (08:51)
[2023-02-14] MEDS: Benztropine Mesylate 1 MG TABLET PO ×2 (08:51→21:22)
[2023-02-14] MEDS: Thiamine HCL 100 MG TABLET PO (08:51)
--- NOTE | 2023-02-14 11:51 | HO.PSYCHPN ---
Subjective Subjective Date of Service: 02/14/23 Reason For Visit: Psychosis Subjective Notes: Section 8 Interim History: Patient was seen and discussed in rounds today. Records and plans were reviewed. He continues to be having a lot of self dialogue. Continues to have auditory hallucinations. He is still using some p.r.n. is a. It appears that he may be showing some signs of slight improvement. He is more expressive about being overwhelmed and his struggles. Very little sleep but did not want any new medications. Review of Systems Review of Systems Yes Unobtainable due to mental status Mental Status Exam Mental Status Exam Narrative: In today's visit he is alert, minimally interactive, laying on his bed. Very soft-spoken. No eye contact. Affect is very constricted and flat. No overt signs of psychosis but continues to have auditory and visual hallucinations, self dialogue. No active SI. Cognitively and his judgment could not be assessed. Diagnostics Vital Signs (24Hr): Vital Signs - 24 hr 02/13/23 20:05 Temperature 98.3 F Pulse Rate 86 Respiratory Rate 16 Blood Pressure 130/73 Pulse Oximetry 97 Oxygen Delivery Method Room Air BMI result Body Mass Index 27.8 Labs 02/07/23 20:01 02/13/23 20:06 Labs: Laboratory Results - last 48 hr 02/13/23 20:06 Sodium 141 Potassium 4.1 Chloride 105 Carbon Dioxide 26 Anion Gap 14 BUN 12 Creatinine 1.02 Estim Creat Clear Calc 124.0 Estimated GFR > 60 Random Glucose 84 Calcium 10.1 Carbamazepine 8.6 Forbes 0.68 Medications Medications Current Medications Acetaminophen (Acetaminophen 325 Mg Tablet) 650 mg PO Q6H PRN PRN Reason: Headache/Pain Mild Scale (1-3) Last Admin: 02/13/23 20:46 Dose: 650 mg Al Hydroxide/Mg Hydroxide (Magnesium Hydrox/Alum Hydrox 30 Ml Oral.Susp) 30 ml PO Q6H PRN PRN Reason: Heartburn/Nausea Last Admin: 01/29/23 22:57 Dose: 30 ml Benzocaine (Throat Lozenge, Medicated Lozenge) 1 lozenge MUCOUS MEM Q2H PRN PRN Reason: Sore Throat Last Admin: 02/07/23 21:47 Dose: 1 lozenge Benztropine Mesylate (Benztropine Mesylate 1 Mg Tablet) 1 mg PO BID [facility] Last Admin: 02/14/23 08:51 Dose: 1 mg Carbamazepine (Carbamazepine 200 Mg Tablet) 400 mg PO BID [facility] Last Admin: 02/14/23 08:50 Dose: 400 mg Chlorpromazine HCl (Chlorpromazine Hcl 100 Mg Tablet) 200 mg PO BEDTIME [facility] Last Admin: 02/13/23 20:13 Dose: 200 mg Chlorpromazine HCl (Chlorpromazine Hcl 100 Mg Tablet) 100 mg PO BID@0900,1300 [facility] Last Admin: 02/14/23 08:52 Dose: 100 mg Chlorpromazine HCl (Chlorpromazine Hcl 100 Mg Tablet) 100 mg PO Q4H PRN PRN Reason: agitation/anxiety Last Admin: 02/13/23 19:31 Dose: 100 mg Clonidine HCl (Clonidine Hcl 0.1 Mg Tablet) 0.1 mg PO Q2H PRN; Protocol PRN Reason: agitation/signs of opioid withdrawal Last Admin: 02/01/23 21:26 Dose: 0.1 mg Diphenhydramine HCl (Diphenhydramine Hcl 25 Mg Capsule) 50 mg PO Q6H PRN PRN Reason: Allergic Symptoms Last Admin: 02/13/23 18:36 Dose: 50 mg Fluphenazine HCl (Fluphenazine Hcl 5 Mg Tablet) 5 mg PO TID [facility] Last Admin: 02/14/23 08:51 Dose: 5 mg Fluphenazine HCl (Fluphenazine Hcl 2.5 Mg/Ml 10 Ml Vial) 5 mg IM TID PRN PRN Reason: refusal of PO fluphenazine Folic Acid (Folic Acid 1 Mg Tablet) 1 mg PO DAILY [facility] Last Admin: 02/14/23 08:51 Dose: 1 mg Forbes Carbonate (Forbes Carbonate Er 300 Mg Tablet.Er) 600 mg PO DAILY [facility] Last Admin: 02/14/23 08:50 Dose: 600 mg Forbes Carbonate (Forbes Carbonate Er 450 Mg Tablet.Er) 900 mg PO BEDTIME [facility] Last Admin: 02/13/23 20:15 Dose: 900 mg Magnesium Hydroxide (Milk Of Magnesia 30 Ml Oral.Susp) 30 ml PO DAILY PRN PRN Reason: Constipation Multi-Ingred Cream/Lotion/Oil/Oint (Mineral Oil/Petrolatum,White 106 Gm Tube) 1 appl TOPICAL BID [facility]; Protocol Last Admin: 02/14/23 08:53 Dose: Not Given Nicotine (Nicotine 21 Mg Patch.Td24) 21 mg TRANSDERMA DAILY PRN PRN Reason: smoking cessation Last Admin: 01/15/23 16:06 Dose: 21 mg Nicotine Polacrilex (Nicotine Polacrilex 2 Mg Gum) 4 mg BUCCAL Q2H PRN PRN Reason: nicotine cravings Last Admin: 02/09/23 11:45 Dose: 4 mg Ondansetron HCl (Ondansetron Odt 4 Mg Tab.Rapdis) 4 mg TRANSLINGU Q6H PRN PRN Reason: Nausea and Vomiting Last Admin: 01/28/23 14:44 Dose: 4 mg Thiamine HCl (Thiamine Hcl 100 Mg Tablet) 100 mg PO DAILY [facility] Last Admin: 02/14/23 08:51 Dose: 100 mg Trazodone HCl (Trazodone Hcl 50 Mg Tablet) 50 mg PO BEDTIME MRX1 PRN PRN Reason: Insomnia Last Admin: 02/12/23 20:55 Dose: 50 mg Allergies Allergies Allergy/AdvReac Type Severity Reaction Status Date / Time morphine [MORPHINE] AdvReac Unknown NAUSEA Verified 12/10/22 19:56 Assessment & Plan Assessment & Plan (1) Nonspecific ST-T wave electrocardiographic changes: Status: Acute Code(s): R94.31 - Abnormal electrocardiogram [ECG] [EKG] Assessment and Plan: Patient with nonspecific ST T wave changes which had dynamic. Unclear significance of these. He has no cardiac symptoms whatsoever. Normal physical exam. The septal Q-waves noted on EKG few days ago and not on yesterday's EKG on most likely due to lead placement and not suggestive for septal infarct. Would suggest an echocardiogram as cooking can be associated with cardiomyopathy. If this is within normal limits no further workup is indicated. There is no issues with use of lithium if it is absolutely necessary to use this to treat his psychiatric condition. No further 0 or other workup is indicated. (2) Cocaine use disorder: Status: Acute Code(s): F14.10 - Cocaine abuse, uncomplicated (3) Schizoaffective disorder, bipolar type: Status: Acute Code(s): F25.0 - Schizoaffective disorder, bipolar type (4) Opioid use disorder: Status: Acute Code(s): F11.90 - Opioid use, unspecified, uncomplicated Plan 12/24: attempt to give anti-psychotics. comfort meds for opioid and cocaine withdrawal. 12/25: refusing medications. period of agitation last night slamming doors and yelling (presumably @AH). continue current mgmt. 12/26: refusing meds. binging and purging. floridly psychotic. 12/27: had meds last night for sleep, per his request. schedule all haldol tonight with ativan and cogentin. a bit more interactive today, remains delayed and distracted. no binging/purging behaviors or agitated behaviors described by RN report today. 12/28: refused meds last night. Today asks for meds for sx mgt- aggressive today-threw two coffee cups. Begin Depakote 250 mg bid. 12/29: got multiple meds last NOC and overnight per his request. slept 2 hours. refusing meds this morning. commitment paperwork completed. 3-day notice expires tomorrow. c/o opioid craving, asked for methadone. methadone 30 mg daily started today. 12/30: filed for commitment today. haldol and ativan per his request last night. appears in disbelief that he will not be discharged today. 12/31: demanding to leave, getting agitated, banging on nursing station, slamming doors in his room. given IMs x 2, haldol 10 ativan 2 benadryl 50 for first and thorazine 100 for second. 01/01: Remains unpredictable and irritable. Refusing scheduled medications. Section 7/8 filed. 01/02: Continue current management. 01/03: refusing meds. irritable, labile. periods of agitation. continue current mgmt, awaiting hearing for . 01/04: refusing meds. irritable, labile. periods of agitation. continue current mgmt, though pt is refusing meds. 01/05: thought-blocked. denies mental illness or need for medications. offer medications. hearing tomorrow. 01/06: committed and ordered medications at hearing. 06/12/20 [facility] summary reviewd, pt was discharged on VPA, zyprexa, haldol. 03/14/20 DC summary reviewed, pt discharged on zyprexa, haldol. pt unable to comprehend result, agitated not to be leaving today. 01/07: copy of court order on unit, will order meds accordingly today. no change in presentation. 01/08: Continue current regimen and plans 01/09: Continue current plans and regimen. Discontinue contingent IM Ativan if Depakote refused 01/10: Continue current regimen and plans. 01/11: DC VPA, start tegretol per pt preference. ativan 2 mg IM for refusal of tegretol. continue haldol PO/IM orders. improved from last week. less agitated, a bit more organized and engaging. 01/12: appears more disorganized again today, trouble engaging. refused PO meds last night but did take tegretol PO this morning. 01/13: continues disorganized, difficulty expressing himself. refusing PO meds since yesterday morning. slept 10 hours last night, however 01/14: intermittently taking meds PO versus IM. improved behavior from prior to med order, but remains floridly psychotic. continue current mgmt. 01/16/2023: No changes to current plan 01/17: more compliant with tegretol in recent days, still getting haldol IM. no change in presentation. continue current mgmt. 01/18: remains psychotic, labile. increase tegretol to 300 mg BID. 01/19: continues more aggressive and labile today. increase haldol to 10 BID with back-up IM of 7.5 mg. 01/20: more calm today,periods of agitation, however, in the past 24H. continue current mgmt. declines to change scheduled haldol to thorazine (proposed by MD in the hope he would in order to spare him the IMs). 01/21 continue tx. 01/22 writing for thorazine at bed- mr x1 and check ekg given other antipsychotics on board 01/23 agreed to ekg today, added 1pm dose of 5mg haldol 01/24: taking meds PO, still suffering from AH, possibly VH. perhaps trending more calm, but clearly still periods of agitation in the past several days. 01/25: labile, paranoid delusions. informed staff he experiences AH, mumbles recently. increase tegretol to 400 BID, make IR formulation as he has been chewing the pills. 01/26: more calm today. continue current mgmt. 01/27: continues more calm. some staff concerned for akathisia due to pacing and number of PRNs taken, but appears to be doing less walking than he had been before, does not appear restless or uncomfortable. continue current mgmt, check tegretol level 2 weeks after dose change (02/08). 01/28: stable presentation. intermittent sleep disturbance. continue current mgmt. 01/29: Continue current management. Benadryl for allergies 01/30: Continue current plan of care. 01/31: continues to ask for lots of PRNs. no change in presentation. 01/28 mild anemia and hyponatremia; trend. tegretol level 10.3. 02/01: series of abnormal and dynamic EKGs; today's WNL. cardiology consult requested for opinion. will start lithium pending cards opinion re EKG series. no change in presentation. 02/02: appreciate cardiology consultation and opinion. echocardiogram ordered. lithium started. appears better able to tolerate longer interaction today. 02/03: improved ability to tolerate social engagements continues. feels lithium has been helpful. akathisia likely. decrease haldol 02/10/10 to 5 BID and add thorazine 25 BID at 0900 and 1300. 02/04: clear uptick in psychotic.manic behavior yesterday after haldol dose decrease. eloped today. increase thorazine to 100/100/200 with PRNS available. 02/05: no concerning behaviors since elopement yesterday. refused PO haldol last night, otherwise med compliant. 02/06: med-compliant, no concerning behaviors. continue current mgmt. 02/07: check BMP along with lithium level. stable presentation. 02/08: CBC/BMP not concerning. lithium 0.6, tegretol 9.0. increase lithium dosing from 600 BID to 600/900 as of tonight. DC haldol entirely out of concerns for akathisia. invega not a great option due to tegretol interaction. start prolixin PO with IM back-up as alternative neuroleptic to haldol. 02/09: Continue current tx plan. 02/10: increase prolixin from 5 BID to 5 TID. otherwise continue current mgmt. 02/11: continue current mgmt. check labs jeferson of 02/13. 02/12: Continue current plan. Check labs in AM. 02/13: Continue current treatment plan. Li level 0.68, CMZ level 8.6 02/14: Continue current regimen and plans Reason for continued inpatient stay Substantial Risk for: med/psych decompensation Time Spent With Patient Time: Total time managing care of this patient today ____ minutes.
[2023-02-14 20:00] VITALS: BP 131/76; PULSE 76; RESP 18; TEMP 36.1; O2SAT 99
[2023-02-14] MEDS: diphenhydrAMINE HCL 25 MG CAPSULE 50 MG PO (20:27)
[2023-02-14] MEDS: chlorproMAZINE HCl 100 MG TABLET 200 MG PO (21:22)
[2023-02-14] MEDS: Lithium Carbonate ER 450 MG TABLET.ER 900 MG PO (21:22)
[2023-02-14] MEDS: chlorproMAZINE HCl 100 MG TABLET PO (22:16)
[2023-02-15 08:55] VITALS: BP 129/71; PULSE 68; RESP 18; TEMP 36.4; O2SAT 97
[2023-02-15] MEDS: Thiamine HCL 100 MG TABLET PO (09:16)
[2023-02-15] MEDS: Benztropine Mesylate 1 MG TABLET PO ×2 (09:16→22:14)
[2023-02-15] MEDS: carBAMazepine 200 MG TABLET 400 MG PO (09:16)
[2023-02-15] MEDS: Folic Acid 1 MG TABLET PO (09:17)
[2023-02-15] MEDS: diphenhydrAMINE HCL 25 MG CAPSULE 50 MG PO (12:54)
--- NOTE | 2023-02-15 15:09 | HO.PSYCHPN ---
Subjective Subjective Date of Service: 02/15/23 Reason For Visit: Psychosis Interim History: expressing depressed mood, says he is heart-broken about his family. denies other questions or concerns. per staff, c/o depression. pacing, eating, some RIS. more pleasant and responsive. broken sleep. Mental Status Exam Mental Status Exam Narrative: adequately dressed and groomed. up and about the unit. cooperative. linear, logical. guarded. affect constricted, no SI/HI/AVH expressed, Diagnostics Vital Signs (24Hr): Vital Signs - 24 hr 02/14/23 20:00 02/15/23 08:55 Temperature 96.9 F 97.6 F Pulse Rate 76 68 Respiratory Rate 18 18 Blood Pressure 131/76 129/71 Pulse Oximetry 99 97 Oxygen Delivery Method Room Air Room Air BMI result Body Mass Index 27.8 Labs 02/07/23 20:01 02/13/23 20:06 Labs: Laboratory Results - last 48 hr 02/13/23 20:06 Sodium 141 Potassium 4.1 Chloride 105 Carbon Dioxide 26 Anion Gap 14 BUN 12 Creatinine 1.02 Estim Creat Clear Calc 124.0 Estimated GFR > 60 Random Glucose 84 Calcium 10.1 Carbamazepine 8.6 [place] 0.68 Medications Medications Current Medications Acetaminophen (Acetaminophen 325 Mg Tablet) 650 mg PO Q6H PRN PRN Reason: Headache/Pain Mild Scale (1-3) Last Admin: 02/15/23 13:14 Dose: 650 mg Al Hydroxide/Mg Hydroxide (Magnesium Hydrox/Alum Hydrox 30 Ml Oral.Susp) 30 ml PO Q6H PRN PRN Reason: Heartburn/Nausea Last Admin: 01/29/23 22:57 Dose: 30 ml Benzocaine (Throat Lozenge, Medicated Lozenge) 1 lozenge MUCOUS MEM Q2H PRN PRN Reason: Sore Throat Last Admin: 02/07/23 21:47 Dose: 1 lozenge Benztropine Mesylate (Benztropine Mesylate 1 Mg Tablet) 1 mg PO BID [facility] Last Admin: 02/15/23 09:16 Dose: 1 mg Carbamazepine (Carbamazepine 200 Mg Tablet) 400 mg PO BID [facility] Last Admin: 02/15/23 09:16 Dose: 400 mg Chlorpromazine HCl (Chlorpromazine Hcl 100 Mg Tablet) 200 mg PO BEDTIME [facility] Last Admin: 10/09/23 21:22 Dose: 200 mg Chlorpromazine HCl (Chlorpromazine Hcl 100 Mg Tablet) 100 mg PO BID@0900,1300 [facility] Last Admin: 02/15/23 12:32 Dose: 100 mg Chlorpromazine HCl (Chlorpromazine Hcl 100 Mg Tablet) 100 mg PO Q4H PRN PRN Reason: agitation/anxiety Last Admin: 02/14/23 22:16 Dose: 100 mg Clonidine HCl (Clonidine Hcl 0.1 Mg Tablet) 0.1 mg PO Q2H PRN; Protocol PRN Reason: agitation/signs of opioid withdrawal Last Admin: 02/01/23 21:26 Dose: 0.1 mg Diphenhydramine HCl (Diphenhydramine Hcl 25 Mg Capsule) 50 mg PO Q6H PRN PRN Reason: Allergic Symptoms Last Admin: 02/15/23 12:54 Dose: 50 mg Fluphenazine HCl (Fluphenazine Hcl 5 Mg Tablet) 5 mg PO TID [facility] Last Admin: 02/15/23 14:23 Dose: 5 mg Fluphenazine HCl (Fluphenazine Hcl 2.5 Mg/Ml 10 Ml Vial) 5 mg IM TID PRN PRN Reason: refusal of PO fluphenazine Folic Acid (Folic Acid 1 Mg Tablet) 1 mg PO DAILY [facility] Last Admin: 02/15/23 09:17 Dose: 1 mg [place] Carbonate ([place] Carbonate Er 300 Mg Tablet.Er) 600 mg PO DAILY [facility] Last Admin: 02/15/23 09:17 Dose: 600 mg [place] Carbonate ([place] Carbonate Er 450 Mg Tablet.Er) 900 mg PO BEDTIME [facility] Last Admin: 02/14/23 21:22 Dose: 900 mg Magnesium Hydroxide (Milk Of Magnesia 30 Ml Oral.Susp) 30 ml PO DAILY PRN PRN Reason: Constipation Multi-Ingred Cream/Lotion/Oil/Oint (Mineral Oil/Petrolatum,White 106 Gm Tube) 1 appl TOPICAL BID [facility]; Protocol Last Admin: 02/15/23 09:19 Dose: Not Given Nicotine (Nicotine 21 Mg Patch.Td24) 21 mg TRANSDERMA DAILY PRN PRN Reason: smoking cessation Last Admin: 01/15/23 16:06 Dose: 21 mg Nicotine Polacrilex (Nicotine Polacrilex 2 Mg Gum) 4 mg BUCCAL Q2H PRN PRN Reason: nicotine cravings Last Admin: 02/09/23 11:45 Dose: 4 mg Ondansetron HCl (Ondansetron Odt 4 Mg Tab.Rapdis) 4 mg TRANSLINGU Q6H PRN PRN Reason: Nausea and Vomiting Last Admin: 01/28/23 14:44 Dose: 4 mg Thiamine HCl (Thiamine Hcl 100 Mg Tablet) 100 mg PO DAILY [facility] Last Admin: 02/15/23 09:16 Dose: 100 mg Trazodone HCl (Trazodone Hcl 50 Mg Tablet) 50 mg PO BEDTIME MRX1 PRN PRN Reason: Insomnia Last Admin: 02/12/23 20:55 Dose: 50 mg Allergies Allergies Allergy/AdvReac Type Severity Reaction Status Date / Time morphine [MORPHINE] AdvReac Unknown NAUSEA Verified 12/10/22 19:56 Assessment & Plan Assessment & Plan (1) Nonspecific ST-T wave electrocardiographic changes: Status: Acute Code(s): R94.31 - Abnormal electrocardiogram [ECG] [EKG] Assessment and Plan: Patient with nonspecific ST T wave changes which had dynamic. Unclear significance of these. He has no cardiac symptoms whatsoever. Normal physical exam. The septal Q-waves noted on EKG few days ago and not on yesterday's EKG on most likely due to lead placement and not suggestive for septal infarct. Would suggest an echocardiogram as cooking can be associated with cardiomyopathy. If this is within normal limits no further workup is indicated. There is no issues with use of lithium if it is absolutely necessary to use this to treat his psychiatric condition. No further 0 or other workup is indicated. (2) Cocaine use disorder: Status: Acute Code(s): F14.10 - Cocaine abuse, uncomplicated (3) Schizoaffective disorder, bipolar type: Status: Acute Code(s): F25.0 - Schizoaffective disorder, bipolar type (4) Opioid use disorder: Status: Acute Code(s): F11.90 - Opioid use, unspecified, uncomplicated Plan 12/24: attempt to give anti-psychotics. comfort meds for opioid and cocaine withdrawal. 12/25: refusing medications. period of agitation last night slamming doors and yelling (presumably @). continue current mgmt. 12/26: refusing meds. binging and purging. floridly psychotic. 12/27: had meds last night for sleep, per his request. schedule all haldol tonight with ativan and cogentin. a bit more interactive today, remains delayed and distracted. no binging/purging behaviors or agitated behaviors described by RN report today. 12/28: refused meds last night. Today asks for meds for sx mgt- aggressive today-threw two coffee cups. Begin Depakote 250 mg bid. 12/29: got multiple meds last NOC and overnight per his request. slept 2 hours. refusing meds this morning. commitment paperwork completed. 3-day notice expires tomorrow. c/o opioid craving, asked for methadone. methadone 30 mg daily started today. 12/30: filed for commitment today. haldol and ativan per his request last night. appears in disbelief that he will not be discharged today. 12/31: demanding to leave, getting agitated, banging on nursing station, slamming doors in his room. given IMs x 2, haldol 10 ativan 2 benadryl 50 for first and thorazine 100 for second. 01/01: Remains unpredictable and irritable. Refusing scheduled medications. Section 7/8 filed. 01/02: Continue current management. 01/03: refusing meds. irritable, labile. periods of agitation. continue current mgmt, awaiting hearing for . 01/04: refusing meds. irritable, labile. periods of agitation. continue current mgmt, though pt is refusing meds. 01/05: thought-blocked. denies mental illness or need for medications. offer medications. hearing tomorrow. 01/06: committed and ordered medications at hearing. 06/12/20 [facility] [place]d, pt was discharged on VPA, zyprexa, haldol. 03/14/20 DC summary reviewed, pt discharged on zyprexa, haldol. pt unable to comprehend result, agitated not to be leaving today. 01/07: copy of court order on unit, will order meds accordingly today. no change in presentation. 2: Continue current regimen and plans 01/09: Continue current plans and regimen. Discontinue contingent IM Ativan if Depakote refused 01/10: Continue current regimen and plans. 01/11: DC VPA, start tegretol per pt preference. ativan 2 mg IM for refusal of tegretol. continue haldol PO/IM orders. improved from last week. less agitated, a bit more organized and engaging. 01/12: appears more disorganized again today, trouble engaging. refused PO meds last night but did take tegretol PO this morning. 01/13: continues disorganized, difficulty expressing himself. refusing PO meds since yesterday morning. slept 10 hours last night, however 01/14: intermittently taking meds PO versus IM. improved behavior from prior to med order, but remains floridly psychotic. continue current mgmt. 01/16/2023: No changes to current plan 01/17: more compliant with tegretol in recent days, still getting haldol IM. no change in presentation. continue current mgmt. 01/18: remains psychotic, labile. increase tegretol to 300 mg BID. 01/19: continues more aggressive and labile today. increase haldol to 10 BID with back-up IM of 7.5 mg. 01/20: more calm today,periods of agitation, however, in the past 24H. continue current mgmt. declines to change scheduled haldol to thorazine (proposed by MD in the hope he would in order to spare him the IMs). 01/21 continue tx. 01/22 writing for thorazine at bed- mr x1 and check ekg given other antipsychotics on board 01/23 agreed to ekg today, added 1pm dose of 5mg haldol 01/24: taking meds PO, still suffering from AH, possibly VH. perhaps trending more calm, but clearly still periods of agitation in the past several days. 01/25: labile, paranoid delusions. informed staff he experiences AH, mumbles recently. increase tegretol to 400 BID, make IR formulation as he has been chewing the pills. 01/26: more calm today. continue current mgmt. 01/27: continues more calm. some staff concerned for akathisia due to pacing and number of PRNs taken, but appears to be doing less walking than he had been before, does not appear restless or uncomfortable. continue current mgmt, check tegretol level 2 weeks after dose change (02/08). 01/28: stable presentation. intermittent sleep disturbance. continue current mgmt. 01/29: Continue current management. Benadryl for allergies 01/30: Continue current plan of care. 01/31: continues to ask for lots of PRNs. no change in presentation. 01/28 mild anemia and hyponatremia; trend. tegretol level 10.3. 02/01: series of abnormal and dynamic EKGs; today's WNL. cardiology consult requested for opinion. will start lithium pending cards opinion re EKG series. no change in presentation. 02/02: appreciate cardiology consultation and opinion. echocardiogram ordered. lithium started. appears better able to tolerate longer interaction today. 02/03: improved ability to tolerate social engagements continues. feels lithium has been helpful. akathisia likely. decrease haldol 02/10/10 to 5 BID and add thorazine 25 BID at 0900 and 1300. 02/04: clear uptick in psychotic.manic behavior yesterday after haldol dose decrease. eloped today. increase thorazine to 100/100/200 with PRNS available. 02/05: no concerning behaviors since elopement yesterday. refused PO haldol last night, otherwise med compliant. 02/06: med-compliant, no concerning behaviors. continue current mgmt. 02/07: check BMP along with lithium level. stable presentation. 02/08: CBC/BMP not concerning. lithium 0.6, tegretol 9.0. increase lithium dosing from 600 BID to 600/900 as of tonight. DC haldol entirely out of concerns for akathisia. invega not a great option due to tegretol interaction. start prolixin PO with IM back-up as alternative neuroleptic to haldol. 02/09: Continue current tx plan. 02/10: increase prolixin from 5 BID to 5 TID. otherwise continue current mgmt. 02/11: continue current mgmt. check labs jeferson of 02/13. 02/12: Continue current plan. Check labs in AM. 02/13: Continue current treatment plan. Li level 0.68, CMZ level 8.6 02/14: Continue current regimen and plans 02/15: increase lithium to 750/900. T/C increasing tegretol in near future as well. gradually seems to be improving. Reason for continued inpatient stay Substantial Risk for: harm to self, inability to function and rapid decompensation Time Spent With Patient Time: Total time managing care of this patient today __25__ minutes.
[2023-02-15] MEDS: chlorproMAZINE HCl 100 MG TABLET PO (18:46)
[2023-02-15 19:45] VITALS: BP 119/76; PULSE 92; RESP 16; TEMP 36.8; O2SAT 95
[2023-02-15] MEDS: cloNIDine HCL 0.1 MG TABLET PO (19:47)
[2023-02-15] MEDS: chlorproMAZINE HCl 100 MG TABLET 200 MG PO (22:13)
[2023-02-16 09:10] VITALS: BP 112/70; PULSE 98; RESP 16; TEMP 36.4; O2SAT 97
[2023-02-16] MEDS: Thiamine HCL 100 MG TABLET PO (09:24)
[2023-02-16] MEDS: Benztropine Mesylate 1 MG TABLET PO ×2 (09:25→21:36)
[2023-02-16] MEDS: Folic Acid 1 MG TABLET PO (09:25)
[2023-02-16] MEDS: chlorproMAZINE HCl 100 MG TABLET PO ×2 (10:41→21:50)
--- NOTE | 2023-02-16 14:20 | HO.PSYCHPN ---
Subjective Subjective Date of Service: 02/16/23 Reason For Visit: Psychosis Interim History: calm, cooperative. asks if there are any legal updates, thinks i am his structural manager. educated i am his MD. yaya bernal. no questions or complaints. per staff, pleasant. not attending groups. no dep/anx/SI/AVH, but RIS. note found in his room which read, nicolas is a damaged person and he hates himself. Mental Status Exam Mental Status Exam Narrative: adequately dressed and groomed. up and about the unit. cooperative. linear, logical. guarded. affect constricted, no SI/HI/AVH expressed, Diagnostics Vital Signs (24Hr): Vital Signs - 24 hr 02/15/23 19:45 02/16/23 09:10 Temperature 98.2 F 97.5 F Pulse Rate 92 98 Respiratory Rate 16 16 Blood Pressure 119/76 112/70 Pulse Oximetry 95 97 Oxygen Delivery Method Room Air BMI result Body Mass Index 27.8 Labs 02/07/23 20:01 02/13/23 20:06 Medications Medications Current Medications Acetaminophen (Acetaminophen 325 Mg Tablet) 650 mg PO Q6H PRN PRN Reason: Headache/Pain Mild Scale (1-3) Last Admin: 02/15/23 22:13 Dose: 650 mg Al Hydroxide/Mg Hydroxide (Magnesium Hydrox/Alum Hydrox 30 Ml Oral.Susp) 30 ml PO Q6H PRN PRN Reason: Heartburn/Nausea Last Admin: 01/29/23 22:57 Dose: 30 ml Benzocaine (Throat Lozenge, Medicated Lozenge) 1 lozenge MUCOUS MEM Q2H PRN PRN Reason: Sore Throat Last Admin: 02/07/23 21:47 Dose: 1 lozenge Benztropine Mesylate (Benztropine Mesylate 1 Mg Tablet) 1 mg PO BID [facility] Last Admin: 02/16/23 09:25 Dose: 1 mg Carbamazepine (Carbamazepine 200 Mg Tablet) 400 mg PO BID [facility] Last Admin: 02/16/23 09:24 Dose: 400 mg Chlorpromazine HCl (Chlorpromazine Hcl 100 Mg Tablet) 200 mg PO BEDTIME [facility] Last Admin: 02/15/23 22:13 Dose: 200 mg Chlorpromazine HCl (Chlorpromazine Hcl 100 Mg Tablet) 100 mg PO BID@0900,1300 [facility] Last Admin: 02/16/23 12:57 Dose: 100 mg Chlorpromazine HCl (Chlorpromazine Hcl 100 Mg Tablet) 100 mg PO Q4H PRN PRN Reason: agitation/anxiety Last Admin: 02/16/23 10:41 Dose: 100 mg Clonidine HCl (Clonidine Hcl 0.1 Mg Tablet) 0.1 mg PO Q2H PRN; Protocol PRN Reason: agitation/signs of opioid withdrawal Last Admin: 02/15/23 19:47 Dose: 0.1 mg Diphenhydramine HCl (Diphenhydramine Hcl 25 Mg Capsule) 50 mg PO Q6H PRN PRN Reason: Allergic Symptoms Last Admin: 02/15/23 12:54 Dose: 50 mg Fluphenazine HCl (Fluphenazine Hcl 5 Mg Tablet) 5 mg PO TID [facility] Last Admin: 02/16/23 09:25 Dose: 5 mg Fluphenazine HCl (Fluphenazine Hcl 2.5 Mg/Ml 10 Ml Vial) 5 mg IM TID PRN PRN Reason: refusal of PO fluphenazine Folic Acid (Folic Acid 1 Mg Tablet) 1 mg PO DAILY [facility] Last Admin: 02/16/23 09:25 Dose: 1 mg [place] Carbonate ([place] Carbonate Er 450 Mg Tablet.Er) 900 mg PO BEDTIME [facility] Last Admin: 02/15/23 22:13 Dose: 900 mg [place] Carbonate ([place] Carbonate Er 300 Mg Tablet.Er) 300 mg PO DAILY [facility] Last Admin: 02/16/23 09:26 Dose: 300 mg [place] Carbonate ([place] Carbonate Er 450 Mg Tablet.Er) 450 mg PO DAILY [facility] Last Admin: 02/16/23 09:25 Dose: 450 mg Magnesium Hydroxide (Milk Of Magnesia 30 Ml Oral.Susp) 30 ml PO DAILY PRN PRN Reason: Constipation Multi-Ingred Cream/Lotion/Oil/Oint (Mineral Oil/Petrolatum,White 106 Gm Tube) 1 appl TOPICAL BID [facility]; Protocol Last Admin: 02/16/23 09:29 Dose: Not Given Nicotine (Nicotine 21 Mg Patch.Td24) 21 mg TRANSDERMA DAILY PRN PRN Reason: smoking cessation Last Admin: 01/15/23 16:06 Dose: 21 mg Nicotine Polacrilex (Nicotine Polacrilex 2 Mg Gum) 4 mg BUCCAL Q2H PRN PRN Reason: nicotine cravings Last Admin: 02/09/23 11:45 Dose: 4 mg Ondansetron HCl (Ondansetron Odt 4 Mg Tab.Rapdis) 4 mg TRANSLINGU Q6H PRN PRN Reason: Nausea and Vomiting Last Admin: 01/28/23 14:44 Dose: 4 mg Thiamine HCl (Thiamine Hcl 100 Mg Tablet) 100 mg PO DAILY [facility] Last Admin: 02/16/23 09:24 Dose: 100 mg Trazodone HCl (Trazodone Hcl 50 Mg Tablet) 50 mg PO BEDTIME MRX1 PRN PRN Reason: Insomnia Last Admin: 02/12/23 20:55 Dose: 50 mg Allergies Allergies Allergy/AdvReac Type Severity Reaction Status Date / Time morphine [MORPHINE] AdvReac Unknown NAUSEA Verified 12/10/22 19:56 Assessment & Plan Assessment & Plan (1) Nonspecific ST-T wave electrocardiographic changes: Status: Acute Code(s): R94.31 - Abnormal electrocardiogram [ECG] [EKG] Assessment and Plan: Patient with nonspecific ST T wave changes which had dynamic. Unclear significance of these. He has no cardiac symptoms whatsoever. Normal physical exam. The septal Q-waves noted on EKG few days ago and not on yesterday's EKG on most likely due to lead placement and not suggestive for septal infarct. Would suggest an echocardiogram as cooking can be associated with cardiomyopathy. If this is within normal limits no further workup is indicated. There is no issues with use of lithium if it is absolutely necessary to use this to treat his psychiatric condition. No further 0 or other workup is indicated. (2) Cocaine use disorder: Status: Acute Code(s): F14.10 - Cocaine abuse, uncomplicated (3) Schizoaffective disorder, bipolar type: Status: Acute Code(s): F25.0 - Schizoaffective disorder, bipolar type (4) Opioid use disorder: Status: Acute Code(s): F11.90 - Opioid use, unspecified, uncomplicated Plan 12/24: attempt to give anti-psychotics. comfort meds for opioid and cocaine withdrawal. 12/25: refusing medications. period of agitation last night slamming doors and yelling (presumably @). continue current mgmt. 12/26: refusing meds. binging and purging. floridly psychotic. 12/27: had meds last night for sleep, per his request. schedule all haldol tonight with ativan and cogentin. a bit more interactive today, remains delayed and distracted. no binging/purging behaviors or agitated behaviors described by RN report today. 12/28: refused meds last night. Today asks for meds for sx mgt- aggressive today-threw two coffee cups. Begin Depakote 250 mg bid. 12/29: got multiple meds last NOC and overnight per his request. slept 2 hours. refusing meds this morning. commitment paperwork completed. 3-day notice expires tomorrow. c/o opioid craving, asked for methadone. methadone 30 mg daily started today. 12/30: filed for commitment today. haldol and ativan per his request last night. appears in disbelief that he will not be discharged today. 12/31: demanding to leave, getting agitated, banging on nursing station, slamming doors in his room. given IMs x 2, haldol 10 ativan 2 benadryl 50 for first and thorazine 100 for second. 01/01: Remains unpredictable and irritable. Refusing scheduled medications. Section 7/8 filed. 01/02: Continue current management. 01/03: refusing meds. irritable, labile. periods of agitation. continue current mgmt, awaiting hearing for . 01/04: refusing meds. irritable, labile. periods of agitation. continue current mgmt, though pt is refusing meds. 01/05: thought-blocked. denies mental illness or need for medications. offer medications. hearing tomorrow. 01/06: committed and ordered medications at hearing. 06/12/20 [facility] [place] DC summary reviewd, pt was discharged on VPA, zyprexa, haldol. 03/14/20 DC summary reviewed, pt discharged on zyprexa, haldol. pt unable to comprehend result, agitated not to be leaving today. 01/07: copy of court order on unit, will order meds accordingly today. no change in presentation. 01/08: Continue current regimen and plans 01/09: Continue current plans and regimen. Discontinue contingent IM Ativan if Depakote refused 01/10: Continue current regimen and plans. 01/11: DC VPA, start tegretol per pt preference. ativan 2 mg IM for refusal of tegretol. continue haldol PO/IM orders. improved from last week. less agitated, a bit more organized and engaging. 01/12: appears more disorganized again today, trouble engaging. refused PO meds last night but did take tegretol PO this morning. 01/13: continues disorganized, difficulty expressing himself. refusing PO meds since yesterday morning. slept 10 hours last night, however 01/14: intermittently taking meds PO versus IM. improved behavior from prior to med order, but remains floridly psychotic. continue current mgmt. 01/16/2023: No changes to current plan 01/17: more compliant with tegretol in recent days, still getting haldol IM. no change in presentation. continue current mgmt. 01/18: remains psychotic, labile. increase tegretol to 300 mg BID. 01/19: continues more aggressive and labile today. increase haldol to 10 BID with back-up IM of 7.5 mg. 01/20: more calm today,periods of agitation, however, in the past 24H. continue current mgmt. declines to change scheduled haldol to thorazine (proposed by MD in the hope he would in order to spare him the IMs). 01/21 continue tx. 01/22 writing for thorazine at bed- mr x1 and check ekg given other antipsychotics on board 01/23 agreed to ekg today, added 1pm dose of 5mg haldol 01/24: taking meds PO, still suffering from AH, possibly VH. perhaps trending more calm, but clearly still periods of agitation in the past several days. 01/25: labile, paranoid delusions. informed staff he experiences AH, mumbles recently. increase tegretol to 400 BID, make IR formulation as he has been chewing the pills. 01/26: more calm today. continue current mgmt. 01/27: continues more calm. some staff concerned for akathisia due to pacing and number of PRNs taken, but appears to be doing less walking than he had been before, does not appear restless or uncomfortable. continue current mgmt, check tegretol level 2 weeks after dose change (02/08). 01/28: stable presentation. intermittent sleep disturbance. continue current mgmt. 01/29: Continue current management. Benadryl for allergies 01/30: Continue current plan of care. 01/31: continues to ask for lots of PRNs. no change in presentation. 01/28 mild anemia and hyponatremia; trend. tegretol level 10.3. 02/01: series of abnormal and dynamic EKGs; today's WNL. cardiology consult requested for opinion. will start lithium pending cards opinion re EKG series. no change in presentation. 02/02: appreciate cardiology consultation and opinion. echocardiogram ordered. lithium started. appears better able to tolerate longer interaction today. 02/03: improved ability to tolerate social engagements continues. feels lithium has been helpful. akathisia likely. decrease haldol 02/10/10 to 5 BID and add thorazine 25 BID at 0900 and 1300. 02/04: clear uptick in psychotic.manic behavior yesterday after haldol dose decrease. eloped today. increase thorazine to 100/100/200 with PRNS available. 02/05: no concerning behaviors since elopement yesterday. refused PO haldol last night, otherwise med compliant. 02/06: med-compliant, no concerning behaviors. continue current mgmt. 02/07: check BMP along with lithium level. stable presentation. 02/08: CBC/BMP not concerning. lithium 0.6, tegretol 9.0. increase lithium dosing from 600 BID to 600/900 as of tonight. DC haldol entirely out of concerns for akathisia. invega not a great option due to tegretol interaction. start prolixin PO with IM back-up as alternative neuroleptic to haldol. 02/09: Continue current tx plan. 02/10: increase prolixin from 5 BID to 5 TID. otherwise continue current mgmt. 02/11: continue current mgmt. check labs jeferson of 02/13. 02/12: Continue current plan. Check labs in AM. 02/13: Continue current treatment plan. Li level 0.68, CMZ level 8.6 02/14: Continue current regimen and plans 02/15: increase lithium to 750/900. T/C increasing tegretol in near future as well. gradually seems to be improving. 02/16: stable. continue current mgmt. has broached feeling depressed the past couple of days. Reason for continued inpatient stay Substantial Risk for: harm to self, inability to function and rapid decompensation Time Spent With Patient Time: Total time managing care of this patient today ____ minutes.
[2023-02-16] MEDS: diphenhydrAMINE HCL 25 MG CAPSULE 50 MG PO (17:27)
[2023-02-16] MEDS: chlorproMAZINE HCl 100 MG TABLET 200 MG PO (19:57)
[2023-02-16 20:10] VITALS: BP 121/74; PULSE 96; RESP 18; TEMP 36.7; O2SAT 94
[2023-02-16] MEDS: Acetaminophen 325 MG TABLET 650 MG PO (20:54)
[2023-02-16] MEDS: fluPHENAZine HCl 5 MG TABLET PO (21:35)
[2023-02-16] MEDS: carBAMazepine 200 MG TABLET 400 MG PO (21:35)
[2023-02-16] MEDS: Lithium Carbonate ER 450 MG TABLET.ER 900 MG PO (21:36)
[2023-02-17] MEDS: Folic Acid 1 MG TABLET PO (08:07)
[2023-02-17] MEDS: Lithium Carbonate ER 450 MG TABLET.ER PO (08:07)
[2023-02-17] MEDS: Lithium Carbonate ER 300 MG TABLET.ER PO (08:07)
[2023-02-17] MEDS: fluPHENAZine HCl 5 MG TABLET PO ×3 (08:08→22:41)
[2023-02-17] MEDS: carBAMazepine 200 MG TABLET 400 MG PO ×2 (08:08→22:41)
[2023-02-17] MEDS: Thiamine HCL 100 MG TABLET PO (08:08)
[2023-02-17] MEDS: chlorproMAZINE HCl 100 MG TABLET PO ×4 (08:08→15:27)
[2023-02-17] MEDS: Benztropine Mesylate 1 MG TABLET PO ×2 (08:08→22:41)
[2023-02-17] MEDS: diphenhydrAMINE HCL 25 MG CAPSULE 50 MG PO (08:20)
[2023-02-17 08:36] VITALS: BP 120/76; PULSE 93; RESP 16; TEMP 36.1; O2SAT 97
--- NOTE | 2023-02-17 09:45 | HO.PSYCHPN ---
Subjective Subjective Date of Service: 02/17/23 Reason For Visit: Psychosis Subjective Notes: Section 8 Interim History: Reviewed in team and . Patient presents calm and cooperative but guarded. He reports feeling okay today. Pt stated, I don't need anything . Pt reports auditory hallucinations and stated there airn't a lot . Denies SI/HI/VH. Medication Compliance: Yes Side effects from medications: No Attending Groups: No Review of Systems Constitutional: Reports as per HPI Eyes: Reports as per HPI Reports as per HPI Cardiovascular: Reports as per HPI Respiratory: Reports as per HPI Gastrointestinal: Reports as per HPI Genitourinary: Reports as per HPI Musculoskeletal: Reports as per HPI Skin/Breast: Reports as per HPI Reports as per HPI Psychiatric: Reports as per HPI Endocrine: Reports as per HPI Hematologic/Lymphatic: Reports as per HPI Allergic/Immunologic: Reports as per HPI Mental Status Exam Mental Status Exam Narrative: behavior is cooperative and calm, guarded; dressed in casual attire; mood is described as okay ; eye contact appropriate; Speech is normal rate, volume and prosody and not pressured; denies SI/HI/VH. Reports auditory hallucinations. Diagnostics Vital Signs (24Hr): Vital Signs - 24 hr 02/16/23 20:10 02/17/23 08:36 Temperature 98.1 F 96.9 F Pulse Rate 96 93 Respiratory Rate 18 16 Blood Pressure 121/74 120/76 Pulse Oximetry 94 97 Oxygen Delivery Method Room Air Room Air BMI result Body Mass Index 27.8 Labs 02/07/23 20:01 02/13/23 20:06 Medications Medications Current Medications Acetaminophen (Acetaminophen 325 Mg Tablet) 650 mg PO Q6H PRN PRN Reason: Headache/Pain Mild Scale (1-3) Last Admin: 02/16/23 20:54 Dose: 650 mg Al Hydroxide/Mg Hydroxide (Magnesium Hydrox/Alum Hydrox 30 Ml Oral.Susp) 30 ml PO Q6H PRN PRN Reason: Heartburn/Nausea Last Admin: 01/29/23 22:57 Dose: 30 ml Benzocaine (Throat Lozenge, Medicated Lozenge) 1 lozenge MUCOUS MEM Q2H PRN PRN Reason: Sore Throat Last Admin: 02/07/23 21:47 Dose: 1 lozenge Benztropine Mesylate (Benztropine Mesylate 1 Mg Tablet) 1 mg PO BID [facility] Last Admin: 02/17/23 08:08 Dose: 1 mg Carbamazepine (Carbamazepine 200 Mg Tablet) 400 mg PO BID [facility] Last Admin: 02/17/23 08:08 Dose: 400 mg Chlorpromazine HCl (Chlorpromazine Hcl 100 Mg Tablet) 200 mg PO BEDTIME [facility] Last Admin: 02/16/23 19:57 Dose: 200 mg Chlorpromazine HCl (Chlorpromazine Hcl 100 Mg Tablet) 100 mg PO BID@0900,1300 [facility] Last Admin: 02/17/23 08:08 Dose: 100 mg Chlorpromazine HCl (Chlorpromazine Hcl 100 Mg Tablet) 100 mg PO Q4H PRN PRN Reason: agitation/anxiety Last Admin: 02/16/23 21:50 Dose: 100 mg Clonidine HCl (Clonidine Hcl 0.1 Mg Tablet) 0.1 mg PO Q2H PRN; Protocol PRN Reason: agitation/signs of opioid withdrawal Last Admin: 02/15/23 19:47 Dose: 0.1 mg Diphenhydramine HCl (Diphenhydramine Hcl 25 Mg Capsule) 50 mg PO Q6H PRN PRN Reason: Allergic Symptoms Last Admin: 02/17/23 08:20 Dose: 50 mg Fluphenazine HCl (Fluphenazine Hcl 5 Mg Tablet) 5 mg PO TID [facility] Last Admin: 02/17/23 08:08 Dose: 5 mg Fluphenazine HCl (Fluphenazine Hcl 2.5 Mg/Ml 10 Ml Vial) 5 mg IM TID PRN PRN Reason: refusal of PO fluphenazine Folic Acid (Folic Acid 1 Mg Tablet) 1 mg PO DAILY [facility] Last Admin: 02/17/23 08:07 Dose: 1 mg [place] Carbonate ([place] Carbonate Er 450 Mg Tablet.Er) 900 mg PO BEDTIME [facility] Last Admin: 02/16/23 21:36 Dose: 900 mg [place] Carbonate ([place] Carbonate Er 300 Mg Tablet.Er) 300 mg PO DAILY [facility] Last Admin: 02/17/23 08:07 Dose: 300 mg [place] Carbonate ([place] Carbonate Er 450 Mg Tablet.Er) 450 mg PO DAILY [facility] Last Admin: 02/17/23 08:07 Dose: 450 mg Magnesium Hydroxide (Milk Of Magnesia 30 Ml Oral.Susp) 30 ml PO DAILY PRN PRN Reason: Constipation Multi-Ingred Cream/Lotion/Oil/Oint (Mineral Oil/Petrolatum,White 106 Gm Tube) 1 appl TOPICAL BID [facility]ONOR; Protocol Last Admin: 02/17/23 08:09 Dose: Not Given Nicotine (Nicotine 21 Mg Patch.Td24) 21 mg TRANSDERMA DAILY PRN PRN Reason: smoking cessation Last Admin: 01/15/23 16:06 Dose: 21 mg Nicotine Polacrilex (Nicotine Polacrilex 2 Mg Gum) 4 mg BUCCAL Q2H PRN PRN Reason: nicotine cravings Last Admin: 02/09/23 11:45 Dose: 4 mg Ondansetron HCl (Ondansetron Odt 4 Mg Tab.Rapdis) 4 mg TRANSLINGU Q6H PRN PRN Reason: Nausea and Vomiting Last Admin: 01/28/23 14:44 Dose: 4 mg Thiamine HCl (Thiamine Hcl 100 Mg Tablet) 100 mg PO DAILY [facility] Last Admin: 02/17/23 08:08 Dose: 100 mg Trazodone HCl (Trazodone Hcl 50 Mg Tablet) 50 mg PO BEDTIME MRX1 PRN PRN Reason: Insomnia Last Admin: 02/12/23 20:55 Dose: 50 mg Allergies Allergies Allergy/AdvReac Type Severity Reaction Status Date / Time morphine [MORPHINE] AdvReac Unknown NAUSEA Verified 12/10/22 19:56 Assessment & Plan Assessment & Plan (1) Nonspecific ST-T wave electrocardiographic changes: Status: Acute Code(s): R94.31 - Abnormal electrocardiogram [ECG] [EKG] Assessment and Plan: Patient with nonspecific ST T wave changes which had dynamic. Unclear significance of these. He has no cardiac symptoms whatsoever. Normal physical exam. The septal Q-waves noted on EKG few days ago and not on yesterday's EKG on most likely due to lead placement and not suggestive for septal infarct. Would suggest an echocardiogram as cooking can be associated with cardiomyopathy. If this is within normal limits no further workup is indicated. There is no issues with use of lithium if it is absolutely necessary to use this to treat his psychiatric condition. No further 0 or other workup is indicated. (2) Cocaine use disorder: Status: Acute Code(s): F14.10 - Cocaine abuse, uncomplicated (3) Schizoaffective disorder, bipolar type: Status: Acute Code(s): F25.0 - Schizoaffective disorder, bipolar type (4) Opioid use disorder: Status: Acute Code(s): F11.90 - Opioid use, unspecified, uncomplicated Plan 12/24: attempt to give anti-psychotics. comfort meds for opioid and cocaine withdrawal. 12/25: refusing medications. period of agitation last night slamming doors and yelling (presumably @). continue current mgmt. 12/26: refusing meds. binging and purging. floridly psychotic. 12/27: had meds last night for sleep, per his request. schedule all haldol tonight with ativan and cogentin. a bit more interactive today, remains delayed and distracted. no binging/purging behaviors or agitated behaviors described by RN report today. 12/28: refused meds last night. Today asks for meds for sx mgt- aggressive today-threw two coffee cups. Begin Depakote 250 mg bid. 12/29: got multiple meds last NOC and overnight per his request. slept 2 hours. refusing meds this morning. commitment paperwork completed. 3-day notice expires tomorrow. c/o opioid craving, asked for methadone. methadone 30 mg daily started today. 12/30: filed for commitment today. haldol and ativan per his request last night. appears in disbelief that he will not be discharged today. 12/31: demanding to leave, getting agitated, banging on nursing station, slamming doors in his room. given IMs x 2, haldol 10 ativan 2 benadryl 50 for first and thorazine 100 for second. 01/01: Remains unpredictable and irritable. Refusing scheduled medications. Section 7/ filed. 01/02: Continue current management. 01/03: refusing meds. irritable, labile. periods of agitation. continue current mgmt, awaiting hearing for . 01/04: refusing meds. irritable, labile. periods of agitation. continue current mgmt, though pt is refusing meds. 01/05: thought-blocked. denies mental illness or need for medications. offer medications. hearing tomorrow. 01/06: committed and ordered medications at hearing. 06/12/20 [facility] [place], pt was discharged on VPA, zyprexa, haldol. 03/14/20 DC summary reviewed, pt discharged on zyprexa, haldol. pt unable to comprehend result, agitated not to be leaving today. 01/07: copy of court order on unit, will order meds accordingly today. no change in presentation. 01/08: Continue current regimen and plans 01/09: Continue current plans and regimen. Discontinue contingent IM Ativan if Depakote refused 01/10: Continue current regimen and plans. 01/11: DC VPA, start tegretol per pt preference. ativan 2 mg IM for refusal of tegretol. continue haldol PO/IM orders. improved from last week. less agitated, a bit more organized and engaging. 01/12: appears more disorganized again today, trouble engaging. refused PO meds last night but did take tegretol PO this morning. 01/13: continues disorganized, difficulty expressing himself. refusing PO meds since yesterday morning. slept 10 hours last night, however 01/14: intermittently taking meds PO versus IM. improved behavior from prior to med order, but remains floridly psychotic. continue current mgmt. 01/16/2023: No changes to current plan 01/17: more compliant with tegretol in recent days, still getting haldol IM. no change in presentation. continue current mgmt. 01/18: remains psychotic, labile. increase tegretol to 300 mg BID. 01/19: continues more aggressive and labile today. increase haldol to 10 BID with back-up IM of 7.5 mg. 01/20: more calm today,periods of agitation, however, in the past 24H. continue current mgmt. declines to change scheduled haldol to thorazine (proposed by MD in the hope he would in order to spare him the IMs). 01/21 continue tx. 01/22 writing for thorazine at bed- mr x1 and check ekg given other antipsychotics on board 01/23 agreed to ekg today, added 1pm dose of 5mg haldol 01/24: taking meds PO, still suffering from AH, possibly VH. perhaps trending more calm, but clearly still periods of agitation in the past several days. 01/25: labile, paranoid delusions. informed staff he experiences AH, mumbles recently. increase tegretol to 400 BID, make IR formulation as he has been chewing the pills. 01/26: more calm today. continue current mgmt. 01/27: continues more calm. some staff concerned for akathisia due to pacing and number of PRNs taken, but appears to be doing less walking than he had been before, does not appear restless or uncomfortable. continue current mgmt, check tegretol level 2 weeks after dose change (02/08). 01/28: stable presentation. intermittent sleep disturbance. continue current mgmt. 01/29: Continue current management. Benadryl for allergies 01/30: Continue current plan of care. 01/31: continues to ask for lots of PRNs. no change in presentation. 01/28 mild anemia and hyponatremia; trend. tegretol level 10.3. 02/01: series of abnormal and dynamic EKGs; today's WNL. cardiology consult requested for opinion. will start lithium pending cards opinion re EKG series. no change in presentation. 02/02: appreciate cardiology consultation and opinion. echocardiogram ordered. lithium started. appears better able to tolerate longer interaction today. 02/03: improved ability to tolerate social engagements continues. feels lithium has been helpful. akathisia likely. decrease haldol 02/10/10 to 5 BID and add thorazine 25 BID at 0900 and 1300. 02/04: clear uptick in psychotic.manic behavior yesterday after haldol dose decrease. eloped today. increase thorazine to 100/100/200 with PRNS available. 02/05: no concerning behaviors since elopement yesterday. refused PO haldol last night, otherwise med compliant. 02/06: med-compliant, no concerning behaviors. continue current mgmt. 02/07: check BMP along with lithium level. stable presentation. 02/08: CBC/BMP not concerning. lithium 0.6, tegretol 9.0. increase lithium dosing from 600 BID to 600/900 as of tonight. DC haldol entirely out of concerns for akathisia. invega not a great option due to tegretol interaction. start prolixin PO with IM back-up as alternative neuroleptic to haldol. 02/09: Continue current tx plan. 02/10: increase prolixin from 5 BID to 5 TID. otherwise continue current mgmt. 02/11: continue current mgmt. check labs jeferson of 02/13. 02/12: Continue current plan. Check labs in AM. 02/13: Continue current treatment plan. Li level 0.68, CMZ level 8.6 02/14: Continue current regimen and plans 02/15: increase lithium to 750/900. T/C increasing tegretol in near future as well. gradually seems to be improving. 02/16: stable. continue current mgmt. has broached feeling depressed the past couple of days. 02/17: Continue current tx plan. Patient educated on: medication risk/benefits Informed Consent: understands Reason for continued inpatient stay Substantial Risk for: med/psych decompensation Time Spent With Patient Time: Total time managing care of this patient today _30___ minutes.
[2023-02-17 09:50] VITALS: BMI 28.2
[2023-02-17 20:10] VITALS: BP 132/75; PULSE 90; RESP 16; TEMP 36.7; O2SAT 96
[2023-02-17] MEDS: Acetaminophen 325 MG TABLET 650 MG PO (20:11)
[2023-02-17] MEDS: Lithium Carbonate ER 450 MG TABLET.ER 900 MG PO (22:41)
[2023-02-17] MEDS: chlorproMAZINE HCl 100 MG TABLET 200 MG PO (22:41)
[2023-02-18] MEDS: chlorproMAZINE HCl 100 MG TABLET PO ×3 (06:23→13:12)
[2023-02-18 08:00] VITALS: BP 120/69; PULSE 74; RESP 16; TEMP 36.6; O2SAT 97
[2023-02-18] MEDS: fluPHENAZine HCl 5 MG TABLET PO ×3 (09:26→21:28)
[2023-02-18] MEDS: diphenhydrAMINE HCL 25 MG CAPSULE 50 MG PO (09:26)
[2023-02-18] MEDS: Lithium Carbonate ER 300 MG TABLET.ER PO (09:27)
[2023-02-18] MEDS: Thiamine HCL 100 MG TABLET PO (09:27)
[2023-02-18] MEDS: Benztropine Mesylate 1 MG TABLET PO ×2 (09:27→21:29)
[2023-02-18] MEDS: Lithium Carbonate ER 450 MG TABLET.ER PO (09:27)
[2023-02-18] MEDS: Folic Acid 1 MG TABLET PO (09:27)
[2023-02-18] MEDS: carBAMazepine 200 MG TABLET 400 MG PO ×2 (09:28→21:29)
[2023-02-18] MEDS: Acetaminophen 325 MG TABLET 650 MG PO ×2 (13:21→23:56)
--- NOTE | 2023-02-18 14:50 | P.PNPSI_ITS ---
Subjective Subjective Date of Service: 02/18/23 Reason For Visit: Psychosis Interim History: resting in bed. non-bizarre in interaction. denies AH. denies awakening this morning yelling asshole repeatedly. per staff, visible, pacing. not attending groups. few interactions. +RIS. had a couple verbal outbursts, asking for PRN thorazine in such occasions. slept 11-6. this morning awakening yelling asshole repeatedly. Mental Status Exam Mental Status Exam Narrative: adequately dressed and groomed. in bed. cooperative. linear, logical. guarded. affect constricted, no SI/HI/VH expressed. denies AH. Diagnostics Vital Signs (24Hr): Vital Signs - 24 hr 02/17/23 20:10 02/18/23 08:00 Temperature 98.1 F 97.9 F Pulse Rate 90 74 Respiratory Rate 16 16 Blood Pressure 132/75 120/69 Pulse Oximetry 96 97 Oxygen Delivery Method Room Air Room Air BMI result Body Mass Index 28.2 Labs 02/07/23 20:01 02/13/23 20:06 Medications Medications Current Medications Acetaminophen (Acetaminophen 325 Mg Tablet) 650 mg PO Q6H PRN PRN Reason: Headache/Pain Mild Scale (1-3) Last Admin: 02/18/23 13:21 Dose: 650 mg Al Hydroxide/Mg Hydroxide (Magnesium Hydrox/Alum Hydrox 30 Ml Oral.Susp) 30 ml PO Q6H PRN PRN Reason: Heartburn/Nausea Last Admin: 01/29/23 22:57 Dose: 30 ml Benzocaine (Throat Lozenge, Medicated Lozenge) 1 lozenge MUCOUS MEM Q2H PRN PRN Reason: Sore Throat Last Admin: 02/07/23 21:47 Dose: 1 lozenge Benztropine Mesylate (Benztropine Mesylate 1 Mg Tablet) 1 mg PO BID [facility] Last Admin: 02/18/23 09:27 Dose: 1 mg Carbamazepine (Carbamazepine 200 Mg Tablet) 400 mg PO BID [facility] Last Admin: 02/18/23 09:28 Dose: 400 mg Chlorpromazine HCl (Chlorpromazine Hcl 100 Mg Tablet) 200 mg PO BEDTIME [facility] Last Admin: 02/17/23 22:41 Dose: 200 mg Chlorpromazine HCl (Chlorpromazine Hcl 100 Mg Tablet) 100 mg PO BID@0900,1300 [facility] Last Admin: 02/18/23 13:12 Dose: 100 mg Chlorpromazine HCl (Chlorpromazine Hcl 100 Mg Tablet) 100 mg PO Q4H PRN PRN Reason: agitation/anxiety Last Admin: 02/18/23 06:23 Dose: 100 mg Clonidine HCl (Clonidine Hcl 0.1 Mg Tablet) 0.1 mg PO Q2H PRN; Protocol PRN Reason: agitation/signs of opioid withdrawal Last Admin: 02/15/23 19:47 Dose: 0.1 mg Diphenhydramine HCl (Diphenhydramine Hcl 25 Mg Capsule) 50 mg PO Q6H PRN PRN Reason: Allergic Symptoms Last Admin: 02/18/23 09:26 Dose: 50 mg Fluphenazine HCl (Fluphenazine Hcl 5 Mg Tablet) 5 mg PO TID [facility] Last Admin: 02/18/23 09:26 Dose: 5 mg Fluphenazine HCl (Fluphenazine Hcl 2.5 Mg/Ml 10 Ml Vial) 5 mg IM TID PRN PRN Reason: refusal of PO fluphenazine Folic Acid (Folic Acid 1 Mg Tablet) 1 mg PO DAILY [facility] Last Admin: 02/18/23 09:27 Dose: [address] [place] Carbonate ([place] Carbonate Er 450 Mg Tablet.Er) 900 mg PO BEDTIME [facility] Last Admin: 02/17/23 22:41 Dose: [address] [place] Carbonate ([place] Carbonate Er 300 Mg Tablet.Er) 300 mg PO DAILY [facility] Last Admin: 02/18/23 09:27 Dose: [address] [place] Carbonate ([place] Carbonate Er 450 Mg Tablet.Er) 450 mg PO DAILY [facility] Last Admin: 02/18/23 09:27 Dose: 450 mg Magnesium Hydroxide (Milk Of Magnesia 30 Ml Oral.Susp) 30 ml PO DAILY PRN PRN Reason: Constipation Multi-Ingred Cream/Lotion/Oil/Oint (Mineral Oil/Petrolatum,White 106 Gm Tube) 1 appl TOPICAL BID [facility]; Protocol Last Admin: 02/18/23 11:14 Dose: Not Given Nicotine (Nicotine 21 Mg Patch.Td24) 21 mg TRANSDERMA DAILY PRN PRN Reason: smoking cessation Last Admin: 01/15/23 16:06 Dose: 21 mg Nicotine Polacrilex (Nicotine Polacrilex 2 Mg Gum) 4 mg BUCCAL Q2H PRN PRN Reason: nicotine cravings Last Admin: 02/09/23 11:45 Dose: 4 mg Ondansetron HCl (Ondansetron Odt 4 Mg Tab.Rapdis) 4 mg TRANSLINGU Q6H PRN PRN Reason: Nausea and Vomiting Last Admin: 01/28/23 14:44 Dose: 4 mg Thiamine HCl (Thiamine Hcl 100 Mg Tablet) 100 mg PO DAILY [facility] Last Admin: 02/18/23 09:27 Dose: 100 mg Trazodone HCl (Trazodone Hcl 50 Mg Tablet) 50 mg PO BEDTIME [facility]X1 PRN PRN Reason: Insomnia Last Admin: 02/12/23 20:55 Dose: 50 mg Allergies Allergies Allergy/AdvReac Type Severity Reaction Status Date / Time morphine [MORPHINE] AdvReac Unknown NAUSEA Verified 12/10/22 19:56 Assessment & Plan Assessment & Plan (1) Nonspecific ST-T wave electrocardiographic changes: Status: Acute Code(s): R94.31 - Abnormal electrocardiogram [ECG] [EKG] Assessment and Plan: Patient with nonspecific ST T wave changes which had dynamic. Unclear significance of these. He has no cardiac symptoms whatsoever. Normal physical exam. The septal Q-waves noted on EKG few days ago and not on yesterday's EKG on most likely due to lead placement and not suggestive for septal infarct. Would suggest an echocardiogram as cooking can be associated with cardiomyopathy. If this is within normal limits no further workup is indicated. There is no issues with use of lithium if it is absolutely necessary to use this to treat his psychiatric condition. No further 0 or other workup is indicated. (2) Cocaine use disorder: Status: Acute Code(s): F14.10 - Cocaine abuse, uncomplicated (3) Schizoaffective disorder, bipolar type: Status: Acute Code(s): F25.0 - Schizoaffective disorder, bipolar type (4) Opioid use disorder: Status: Acute Code(s): F11.90 - Opioid use, unspecified, uncomplicated Plan 12/24: attempt to give anti-psychotics. comfort meds for opioid and cocaine withdrawal. 12/25: refusing medications. period of agitation last night slamming doors and yelling (presumably @). continue current mgmt. 12/26: refusing meds. binging and purging. floridly psychotic. 12/27: had meds last night for sleep, per his request. schedule all haldol tonight with ativan and cogentin. a bit more interactive today, remains delayed and distracted. no binging/purging behaviors or agitated behaviors described by RN report today. 12/28: refused meds last night. Today asks for meds for sx mgt- aggressive today- threw two coffee cups. Begin Depakote 250 mg bid. 12/29: got multiple meds last NOC and overnight per his request. slept 2 hours. refusing meds this morning. commitment paperwork completed. 3-day notice expires tomorrow. c/o opioid craving, asked for methadone. methadone 30 mg daily started today. 12/30: filed for commitment today. haldol and ativan per his request last night. appears in disbelief that he will not be discharged today. 12/31: demanding to leave, getting agitated, banging on nursing station, slamming doors in his room. given IMs x 2, haldol 10 ativan 2 benadryl 50 for first and thorazine 100 for second. 01/01: Remains unpredictable and irritable. Refusing scheduled medications. Section 7/8 filed. 01/02: Continue current management. 01/03: refusing meds. irritable, labile. periods of agitation. continue current mgmt, awaiting hearing for . 01/04: refusing meds. irritable, labile. periods of agitation. continue current mgmt, though pt is refusing meds. 01/05: thought-blocked. denies mental illness or need for medications. offer medications. hearing tomorrow. 01/06: committed and ordered medications at hearing. 06/12/20 [facility] [place] DC summary reviewd, pt was discharged on VPA, zyprexa, haldol. 03/14/20 DC summary reviewed, pt discharged on zyprexa, haldol. pt unable to comprehend result, agitated not to be leaving today. 01/07: copy of court order on unit, will order meds accordingly today. no change in presentation. 01/08: Continue current regimen and plans 01/09: Continue current plans and regimen. Discontinue contingent IM Ativan if Depakote refused 01/10: Continue current regimen and plans. 01/11: DC VPA, start tegretol per pt preference. ativan 2 mg IM for refusal of tegretol. continue haldol PO/IM orders. improved from last week. less agitated, a bit more organized and engaging. 01/12: appears more disorganized again today, trouble engaging. refused PO meds last night but did take tegretol PO this morning. 01/13: continues disorganized, difficulty expressing himself. refusing PO meds since yesterday morning. slept 10 hours last night, however 01/14: intermittently taking meds PO versus IM. improved behavior from prior to med order, but remains floridly psychotic. continue current mgmt. 01/16/2023: No changes to current plan 01/17: more compliant with tegretol in recent days, still getting haldol IM. no change in presentation. continue current mgmt. 01/18: remains psychotic, labile. increase tegretol to 300 mg BID. 01/19: continues more aggressive and labile today. increase haldol to 10 BID with back-up IM of 7.5 mg. 01/20: more calm today,periods of agitation, however, in the past 24H. continue current mgmt. declines to change scheduled haldol to thorazine (proposed by MD in the hope he would in order to spare him the IMs). 01/21 continue tx. 01/22 writing for thorazine at bed- mr x1 and check ekg given other antipsychotics on board 01/23 agreed to ekg today, added 1pm dose of 5mg haldol 01/24: taking meds PO, still suffering from AH, possibly VH. perhaps trending more calm, but clearly still periods of agitation in the past several days. 01/25: labile, paranoid delusions. informed staff he experiences AH, mumbles recently. increase tegretol to 400 BID, make IR formulation as he has been chewing the pills. 01/26: more calm today. continue current mgmt. 01/27: continues more calm. some staff concerned for akathisia due to pacing and number of PRNs taken, but appears to be doing less walking than he had been before, does not appear restless or uncomfortable. continue current mgmt, check tegretol level 2 weeks after dose change (02/08). 01/28: stable presentation. intermittent sleep disturbance. continue current mgmt. 01/29: Continue current management. Benadryl for allergies 01/30: Continue current plan of care. 01/31: continues to ask for lots of PRNs. no change in presentation. 01/28 mild anemia and hyponatremia; trend. tegretol level 10.3. 02/01: series of abnormal and dynamic EKGs; today's WNL. cardiology consult requested for opinion. will start lithium pending cards opinion re EKG series. no change in presentation. 02/02: appreciate cardiology consultation and opinion. echocardiogram ordered. lithium started. appears better able to tolerate longer interaction today. 02/03: improved ability to tolerate social engagements continues. feels lithium has been helpful. akathisia likely. decrease haldol 02/10/10 to 5 BID and add thorazine 25 BID at 0900 and 1300. 02/04: clear uptick in psychotic.manic behavior yesterday after haldol dose decrease. eloped today. increase thorazine to 100/100/200 with PRNS available. 02/05: no concerning behaviors since elopement yesterday. refused PO haldol last night, otherwise med compliant. 02/06: med-compliant, no concerning behaviors. continue current mgmt. 02/07: check BMP along with lithium level. stable presentation. 02/08: CBC/BMP not concerning. lithium 0.6, tegretol 9.0. increase lithium dosing from 600 BID to 600/900 as of tonight. DC haldol entirely out of concerns for akathisia. invega not a great option due to tegretol interaction. start prolixin PO with IM back-up as alternative neuroleptic to haldol. 02/09: Continue current tx plan. 02/10: increase prolixin from 5 BID to 5 TID. otherwise continue current mgmt. 02/11: continue current mgmt. check labs jeferson of 02/13. 02/12: Continue current plan. Check labs in AM. 02/13: Continue current treatment plan. Li level 0.68, CMZ level 8.6 02/14: Continue current regimen and plans 02/15: increase lithium to 750/900. T/C increasing tegretol in near future as well. gradually seems to be improving. 02/16: stable. continue current mgmt. has broached feeling depressed the past couple of days. 10/12: Continue current tx plan. 02/18: check labs in several days. stable, Sx much improved from prior but still clearly psychotic. Reason for continued inpatient stay Substantial Risk for: harm to self, harm to others, inability to function and rapid decompensation Time Spent With Patient Time: Total time managing care of this patient today __25__ minutes.
[2023-02-18 19:59] VITALS: BP 132/79; PULSE 96; RESP 18; TEMP 36.6; O2SAT 97
[2023-02-18] MEDS: chlorproMAZINE HCl 100 MG TABLET 200 MG PO (20:01)
[2023-02-18] MEDS: Lithium Carbonate ER 450 MG TABLET.ER 900 MG PO (21:29)
[2023-02-19 09:30] VITALS: BP 125/59; PULSE 88; RESP 16; TEMP 36.9; O2SAT 98
[2023-02-19] MEDS: Lithium Carbonate ER 450 MG TABLET.ER PO (09:33)
[2023-02-19] MEDS: Lithium Carbonate ER 300 MG TABLET.ER PO (09:33)
[2023-02-19] MEDS: carBAMazepine 200 MG TABLET 400 MG PO ×2 (09:34→20:22)
[2023-02-19] MEDS: Folic Acid 1 MG TABLET PO (09:34)
[2023-02-19] MEDS: Benztropine Mesylate 1 MG TABLET PO ×2 (09:34→20:23)
[2023-02-19] MEDS: fluPHENAZine HCl 5 MG TABLET PO ×3 (09:34→20:23)
[2023-02-19] MEDS: Thiamine HCL 100 MG TABLET PO (09:35)
[2023-02-19] MEDS: chlorproMAZINE HCl 100 MG TABLET PO ×3 (09:35→22:09)
[2023-02-19] MEDS: Mineral Oil/Petrolatum,White 106 GM Tube 1 APPL TOPICAL (09:37)
--- NOTE | 2023-02-19 16:47 | HO.PSYCHPN ---
Subjective Subjective Date of Service: 02/19/23 Reason For Visit: Psychosis Interim History: Met with patient. Discussed with Nursing. Overall no management issues. Less internally preoccupied. Adherent with medications. Medication Compliance: Yes Side effects from medications: No Attending Groups: Intermittent Review of Systems Acute medical concerns: No Review of Systems Review of Systems Yes all other systems are reviewed and are negative Mental Status Exam Mental Status Exam Narrative: adequately dressed and groomed. in bed. cooperative. linear, logical. guarded. affect constricted, no SI/HI/VH expressed. denies AH. Diagnostics Vital Signs (24Hr): Vital Signs - 24 hr 02/18/23 19:59 02/19/23 09:30 Temperature 97.9 F 98.5 F Pulse Rate 96 88 Respiratory Rate 18 16 Blood Pressure 132/79 125/59 L Pulse Oximetry 97 98 Oxygen Delivery Method Room Air Room Air BMI result Body Mass Index 28.2 Labs 02/07/23 20:01 02/13/23 20:06 Medications Medications Current Medications Acetaminophen (Acetaminophen 325 Mg Tablet) 650 mg PO Q6H PRN PRN Reason: Headache/Pain Mild Scale (1-3) Last Admin: 02/18/23 23:56 Dose: 650 mg Al Hydroxide/Mg Hydroxide (Magnesium Hydrox/Alum Hydrox 30 Ml Oral.Susp) 30 ml PO Q6H PRN PRN Reason: Heartburn/Nausea Last Admin: 01/29/23 22:57 Dose: 30 ml Benzocaine (Throat Lozenge, Medicated Lozenge) 1 lozenge MUCOUS MEM Q2H PRN PRN Reason: Sore Throat Last Admin: 02/07/23 21:47 Dose: 1 lozenge Benztropine Mesylate (Benztropine Mesylate 1 Mg Tablet) 1 mg PO BID [facility] Last Admin: 02/19/23 09:34 Dose: 1 mg Carbamazepine (Carbamazepine 200 Mg Tablet) 400 mg PO BID [facility] Last Admin: 02/19/23 09:34 Dose: 400 mg Chlorpromazine HCl (Chlorpromazine Hcl 100 Mg Tablet) 200 mg PO BEDTIME [facility] Last Admin: 02/18/23 20:01 Dose: 200 mg Chlorpromazine HCl (Chlorpromazine Hcl 100 Mg Tablet) 100 mg PO BID@0900,1300 [facility] Last Admin: 02/19/23 13:35 Dose: Not Given Chlorpromazine HCl (Chlorpromazine Hcl 100 Mg Tablet) 100 mg PO Q4H PRN PRN Reason: agitation/anxiety Last Admin: 02/19/23 12:06 Dose: 100 mg Clonidine HCl (Clonidine Hcl 0.1 Mg Tablet) 0.1 mg PO Q2H PRN; Protocol PRN Reason: agitation/signs of opioid withdrawal Last Admin: 02/15/23 19:47 Dose: 0.1 mg Diphenhydramine HCl (Diphenhydramine Hcl 25 Mg Capsule) 50 mg PO Q6H PRN PRN Reason: Allergic Symptoms Last Admin: 02/18/23 09:26 Dose: 50 mg Fluphenazine HCl (Fluphenazine Hcl 5 Mg Tablet) 5 mg PO TID [facility] Last Admin: 02/19/23 14:40 Dose: 5 mg Fluphenazine HCl (Fluphenazine Hcl 2.5 Mg/Ml 10 Ml Vial) 5 mg IM TID PRN PRN Reason: refusal of PO fluphenazine Folic Acid (Folic Acid 1 Mg Tablet) 1 mg PO DAILY [facility] Last Admin: 02/19/23 09:34 Dose: 1 mg [place] Carbonate ([place] Carbonate Er 450 Mg Tablet.Er) 900 mg PO BEDTIME [facility] Last Admin: 02/18/23 21:29 Dose: 900 mg [place] Carbonate ([place] Carbonate Er 300 Mg Tablet.Er) 300 mg PO DAILY [facility] Last Admin: 02/19/23 09:33 Dose: 300 mg [place] Carbonate ([place] Carbonate Er 450 Mg Tablet.Er) 450 mg PO DAILY [facility] Last Admin: 02/19/23 09:33 Dose: 450 mg Magnesium Hydroxide (Milk Of Magnesia 30 Ml Oral.Susp) 30 ml PO DAILY PRN PRN Reason: Constipation Multi-Ingred Cream/Lotion/Oil/Oint (Mineral Oil/Petrolatum,White 106 Gm Tube) 1 appl TOPICAL BID [facility]; Protocol Last Admin: 02/19/23 09:37 Dose: 1 appl Nicotine (Nicotine 21 Mg Patch.Td24) 21 mg TRANSDERMA DAILY PRN PRN Reason: smoking cessation Last Admin: 01/15/23 16:06 Dose: 21 mg Nicotine Polacrilex (Nicotine Polacrilex 2 Mg Gum) 4 mg BUCCAL Q2H PRN PRN Reason: nicotine cravings Last Admin: 02/09/23 11:45 Dose: 4 mg Ondansetron HCl (Ondansetron Odt 4 Mg Tab.Rapdis) 4 mg TRANSLINGU Q6H PRN PRN Reason: Nausea and Vomiting Last Admin: 01/28/23 14:44 Dose: 4 mg Thiamine HCl (Thiamine Hcl 100 Mg Tablet) 100 mg PO DAILY [facility] Last Admin: 02/19/23 09:35 Dose: 100 mg Trazodone HCl (Trazodone Hcl 50 Mg Tablet) 50 mg PO BEDTIME MRX1 PRN PRN Reason: Insomnia Last Admin: 02/12/23 20:55 Dose: 50 mg Allergies Allergies Allergy/AdvReac Type Severity Reaction Status Date / Time morphine [MORPHINE] AdvReac Unknown NAUSEA Verified 12/10/22 19:56 Assessment & Plan Assessment & Plan (1) Nonspecific ST-T wave electrocardiographic changes: Status: Acute Code(s): R94.31 - Abnormal electrocardiogram [ECG] [EKG] Assessment and Plan: Patient with nonspecific ST T wave changes which had dynamic. Unclear significance of these. He has no cardiac symptoms whatsoever. Normal physical exam. The septal Q-waves noted on EKG few days ago and not on yesterday's EKG on most likely due to lead placement and not suggestive for septal infarct. Would suggest an echocardiogram as cooking can be associated with cardiomyopathy. If this is within normal limits no further workup is indicated. There is no issues with use of lithium if it is absolutely necessary to use this to treat his psychiatric condition. No further 0 or other workup is indicated. (2) Cocaine use disorder: Status: Acute Code(s): F14.10 - Cocaine abuse, uncomplicated (3) Schizoaffective disorder, bipolar type: Status: Acute Code(s): F25.0 - Schizoaffective disorder, bipolar type (4) Opioid use disorder: Status: Acute Code(s): F11.90 - Opioid use, unspecified, uncomplicated Plan 12/24: attempt to give anti-psychotics. comfort meds for opioid and cocaine withdrawal. 12/25: refusing medications. period of agitation last night slamming doors and yelling (presumably @). continue current mgmt. 12/26: refusing meds. binging and purging. floridly psychotic. 12/27: had meds last night for sleep, per his request. schedule all haldol tonight with ativan and cogentin. a bit more interactive today, remains delayed and distracted. no binging/purging behaviors or agitated behaviors described by RN report today. 12/28: refused meds last night. Today asks for meds for sx mgt- aggressive today-threw two coffee cups. Begin Depakote 250 mg bid. 12/29: got multiple meds last NOC and overnight per his request. slept 2 hours. refusing meds this morning. commitment paperwork completed. 3-day notice expires tomorrow. c/o opioid craving, asked for methadone. methadone 30 mg daily started today. 12/30: filed for commitment today. haldol and ativan per his request last night. appears in disbelief that he will not be discharged today. 12/31: demanding to leave, getting agitated, banging on nursing station, slamming doors in his room. given IMs x 2, haldol 10 ativan 2 benadryl 50 for first and thorazine 100 for second. 01/01: Remains unpredictable and irritable. Refusing scheduled medications. Section 7/ filed. 01/02: Continue current management. 01/03: refusing meds. irritable, labile. periods of agitation. continue current mgmt, awaiting hearing for . 01/04: refusing meds. irritable, labile. periods of agitation. continue current mgmt, though pt is refusing meds. 01/05: thought-blocked. denies mental illness or need for medications. offer medications. hearing tomorrow. 01/06: committed and ordered medications at hearing. 06/12/20 [facility] [place] [facility] [place], pt was discharged on VPA, zyprexa, haldol. 03/14/20 [place] summary reviewed, pt discharged on zyprexa, haldol. pt unable to comprehend result, agitated not to be leaving today. 01/07: copy of court order on unit, will order meds accordingly today. no change in presentation. 01/08: Continue current regimen and plans 01/09: Continue current plans and regimen. Discontinue contingent IM Ativan if Depakote refused 01/10: Continue current regimen and plans. 01/11: DC VPA, start tegretol per pt preference. ativan 2 mg IM for refusal of tegretol. continue haldol PO/IM orders. improved from last week. less agitated, a bit more organized and engaging. 01/12: appears more disorganized again today, trouble engaging. refused PO meds last night but did take tegretol PO this morning. 01/13: continues disorganized, difficulty expressing himself. refusing PO meds since yesterday morning. slept 10 hours last night, however 01/14: intermittently taking meds PO versus IM. improved behavior from prior to med order, but remains floridly psychotic. continue current mgmt. 01/16/2023: No changes to current plan 01/17: more compliant with tegretol in recent days, still getting haldol IM. no change in presentation. continue current mgmt. 01/18: remains psychotic, labile. increase tegretol to 300 mg BID. 01/19: continues more aggressive and labile today. increase haldol to 10 BID with back-up IM of 7.5 mg. 01/20: more calm today,periods of agitation, however, in the past 24H. continue current mgmt. declines to change scheduled haldol to thorazine (proposed by MD in the hope he would in order to spare him the IMs). 01/21 continue tx. 01/22 writing for thorazine at bed- mr x1 and check ekg given other antipsychotics on board 01/23 agreed to ekg today, added 1pm dose of 5mg haldol 01/24: taking meds PO, still suffering from AH, possibly VH. perhaps trending more calm, but clearly still periods of agitation in the past several days. 01/25: labile, paranoid delusions. informed staff he experiences AH, mumbles recently. increase tegretol to 400 BID, make IR formulation as he has been chewing the pills. 01/26: more calm today. continue current mgmt. 01/27: continues more calm. some staff concerned for akathisia due to pacing and number of PRNs taken, but appears to be doing less walking than he had been before, does not appear restless or uncomfortable. continue current mgmt, check tegretol level 2 weeks after dose change (02/08). 01/28: stable presentation. intermittent sleep disturbance. continue current mgmt. 01/29: Continue current management. Benadryl for allergies 01/30: Continue current plan of care. 01/31: continues to ask for lots of PRNs. no change in presentation. 01/28 mild anemia and hyponatremia; trend. tegretol level 10.3. 02/01: series of abnormal and dynamic EKGs; today's WNL. cardiology consult requested for opinion. will start lithium pending cards opinion re EKG series. no change in presentation. 02/02: appreciate cardiology consultation and opinion. echocardiogram ordered. lithium started. appears better able to tolerate longer interaction today. 02/03: improved ability to tolerate social engagements continues. feels lithium has been helpful. akathisia likely. decrease haldol 02/10/10 to 5 BID and add thorazine 25 BID at 0900 and 1300. 02/04: clear uptick in psychotic.manic behavior yesterday after haldol dose decrease. eloped today. increase thorazine to 100/100/200 with PRNS available. 02/05: no concerning behaviors since elopement yesterday. refused PO haldol last night, otherwise med compliant. 02/06: med-compliant, no concerning behaviors. continue current mgmt. 02/07: check BMP along with lithium level. stable presentation. 02/08: CBC/BMP not concerning. lithium 0.6, tegretol 9.0. increase lithium dosing from 600 BID to 600/900 as of tonight. DC haldol entirely out of concerns for akathisia. invega not a great option due to tegretol interaction. start prolixin PO with IM back-up as alternative neuroleptic to haldol. 02/09: Continue current tx plan. 02/10: increase prolixin from 5 BID to 5 TID. otherwise continue current mgmt. 02/11: continue current mgmt. check labs jeferson of 02/13. 02/12: Continue current plan. Check labs in AM. 02/13: Continue current treatment plan. Li level 0.68, CMZ level 8.6 02/14: Continue current regimen and plans 02/15: increase lithium to 750/900. T/C increasing tegretol in near future as well. gradually seems to be improving. 02/16: stable. continue current mgmt. has broached feeling depressed the past couple of days. 02/17: Continue current tx plan. 02/18: check labs in several days. stable, Sx much improved from prior but still clearly psychotic. 02/19: no changes Reason for continued inpatient stay Substantial Risk for: rapid decompensation Time Spent With Patient Time: Total time managing care of this patient today ____ minutes.
[2023-02-19] MEDS: diphenhydrAMINE HCL 25 MG CAPSULE 50 MG PO (18:42)
[2023-02-19] MEDS: Lithium Carbonate ER 450 MG TABLET.ER 900 MG PO (20:22)
[2023-02-19] MEDS: Acetaminophen 325 MG TABLET 650 MG PO (20:23)
[2023-02-19] MEDS: chlorproMAZINE HCl 100 MG TABLET 200 MG PO (20:23)
[2023-02-19 20:30] VITALS: BP 131/81; PULSE 98; RESP 18; TEMP 36.6; O2SAT 98
[2023-02-20 09:25] VITALS: BP 123/68; PULSE 85; RESP 16; TEMP 36.8; O2SAT 97
[2023-02-20] MEDS: carBAMazepine 200 MG TABLET 400 MG PO ×2 (09:29→21:49)
[2023-02-20] MEDS: fluPHENAZine HCl 5 MG TABLET PO ×3 (09:29→21:50)
[2023-02-20] MEDS: Lithium Carbonate ER 300 MG TABLET.ER PO (09:29)
[2023-02-20] MEDS: Lithium Carbonate ER 450 MG TABLET.ER PO (09:29)
[2023-02-20] MEDS: Benztropine Mesylate 1 MG TABLET PO ×2 (09:30→21:50)
[2023-02-20] MEDS: Thiamine HCL 100 MG TABLET PO (09:30)
[2023-02-20] MEDS: Folic Acid 1 MG TABLET PO (09:30)
[2023-02-20] MEDS: chlorproMAZINE HCl 100 MG TABLET PO ×3 (10:12→20:59)
[2023-02-20] MEDS: diphenhydrAMINE HCL 25 MG CAPSULE 50 MG PO (13:32)
--- NOTE | 2023-02-20 15:30 | HO.PSYCHPN ---
Subjective Subjective Date of Service: 02/20/23 Reason For Visit: Psychosis Interim History: Pleasant. No med concerns. Feels supported. Reports enjoying comedy TV shows such as Friends and The Big Bang. Less internally preoccupied. Adherent with medications. Medication Compliance: Yes Side effects from medications: No Attending Groups: Intermittent Review of Systems Acute medical concerns: No Review of Systems Review of Systems unremarkable Mental Status Exam Mental Status Exam Narrative: adequately dressed and groomed. in milieu. cooperative. linear, logical. guarded. affect constricted, no SI/HI/VH expressed. denies AH. Diagnostics Vital Signs (24Hr): Vital Signs - 24 hr 02/19/23 20:30 Temperature 97.9 F Pulse Rate 98 Respiratory Rate 18 Blood Pressure 131/81 Pulse Oximetry 98 Oxygen Delivery Method Room Air BMI result Body Mass Index 28.2 Labs 02/07/23 20:01 02/13/23 20:06 Medications Medications Current Medications Acetaminophen (Acetaminophen 325 Mg Tablet) 650 mg PO Q6H PRN PRN Reason: Headache/Pain Mild Scale (1-3) Last Admin: 02/19/23 20:23 Dose: 650 mg Al Hydroxide/Mg Hydroxide (Magnesium Hydrox/Alum Hydrox 30 Ml Oral.Susp) 30 ml PO Q6H PRN PRN Reason: Heartburn/Nausea Last Admin: 01/29/23 22:57 Dose: 30 ml Benzocaine (Throat Lozenge, Medicated Lozenge) 1 lozenge MUCOUS MEM Q2H PRN PRN Reason: Sore Throat Last Admin: 02/07/23 21:47 Dose: 1 lozenge Benztropine Mesylate (Benztropine Mesylate 1 Mg Tablet) 1 mg PO BID [facility] Last Admin: 02/20/23 09:30 Dose: 1 mg Carbamazepine (Carbamazepine 200 Mg Tablet) 400 mg PO BID [facility] Last Admin: 02/20/23 09:29 Dose: 400 mg Chlorpromazine HCl (Chlorpromazine Hcl 100 Mg Tablet) 200 mg PO BEDTIME [facility] Last Admin: 02/19/23 20:23 Dose: 200 mg Chlorpromazine HCl (Chlorpromazine Hcl 100 Mg Tablet) 100 mg PO BID@0900,1300 [facility] Last Admin: 02/20/23 13:32 Dose: 100 mg Chlorpromazine HCl (Chlorpromazine Hcl 100 Mg Tablet) 100 mg PO Q4H PRN PRN Reason: agitation/anxiety Last Admin: 02/19/23 22:09 Dose: 100 mg Clonidine HCl (Clonidine Hcl 0.1 Mg Tablet) 0.1 mg PO Q2H PRN; Protocol PRN Reason: agitation/signs of opioid withdrawal Last Admin: 02/15/23 19:47 Dose: 0.1 mg Diphenhydramine HCl (Diphenhydramine Hcl 25 Mg Capsule) 50 mg PO Q6H PRN PRN Reason: Allergic Symptoms Last Admin: 02/20/23 13:32 Dose: 50 mg Fluphenazine HCl (Fluphenazine Hcl 5 Mg Tablet) 5 mg PO TID [facility] Last Admin: 02/20/23 09:29 Dose: 5 mg Fluphenazine HCl (Fluphenazine Hcl 2.5 Mg/Ml 10 Ml Vial) 5 mg IM TID PRN PRN Reason: refusal of PO fluphenazine Folic Acid (Folic Acid 1 Mg Tablet) 1 mg PO DAILY [facility] Last Admin: 02/20/23 09:30 Dose: 1 mg [place] Carbonate ([place] Carbonate Er 450 Mg Tablet.Er) 900 mg PO BEDTIME [facility] Last Admin: 02/19/23 20:22 Dose: 900 mg [place] Carbonate ([place] Carbonate Er 300 Mg Tablet.Er) 300 mg PO DAILY [facility] Last Admin: 02/20/23 09:29 Dose: 300 mg [place] Carbonate ([place] Carbonate Er 450 Mg Tablet.Er) 450 mg PO DAILY [facility] Last Admin: 02/20/23 09:29 Dose: 450 mg Magnesium Hydroxide (Milk Of Magnesia 30 Ml Oral.Susp) 30 ml PO DAILY PRN PRN Reason: Constipation Multi-Ingred Cream/Lotion/Oil/Oint (Mineral Oil/Petrolatum,White 106 Gm Tube) 1 appl TOPICAL BID [facility]; Protocol Last Admin: 02/20/23 09:31 Dose: Not Given Nicotine (Nicotine 21 Mg Patch.Td24) 21 mg TRANSDERMA DAILY PRN PRN Reason: smoking cessation Last Admin: 01/15/23 16:06 Dose: 21 mg Nicotine Polacrilex (Nicotine Polacrilex 2 Mg Gum) 4 mg BUCCAL Q2H PRN PRN Reason: nicotine cravings Last Admin: 02/09/23 11:45 Dose: 4 mg Ondansetron HCl (Ondansetron Odt 4 Mg Tab.Rapdis) 4 mg TRANSLINGU Q6H PRN PRN Reason: Nausea and Vomiting Last Admin: 01/28/23 14:44 Dose: 4 mg Thiamine HCl (Thiamine Hcl 100 Mg Tablet) 100 mg PO DAILY [facility] Last Admin: 02/20/23 09:30 Dose: 100 mg Trazodone HCl (Trazodone Hcl 50 Mg Tablet) 50 mg PO BEDTIME MRX1 PRN PRN Reason: Insomnia Last Admin: 02/12/23 20:55 Dose: 50 mg Allergies Allergies Allergy/AdvReac Type Severity Reaction Status Date / Time morphine [MORPHINE] AdvReac Unknown NAUSEA Verified 12/10/22 19:56 Assessment & Plan Assessment & Plan (1) Nonspecific ST-T wave electrocardiographic changes: Status: Acute Code(s): R94.31 - Abnormal electrocardiogram [ECG] [EKG] Assessment and Plan: Patient with nonspecific ST T wave changes which had dynamic. Unclear significance of these. He has no cardiac symptoms whatsoever. Normal physical exam. The septal Q-waves noted on EKG few days ago and not on yesterday's EKG on most likely due to lead placement and not suggestive for septal infarct. Would suggest an echocardiogram as cooking can be associated with cardiomyopathy. If this is within normal limits no further workup is indicated. There is no issues with use of lithium if it is absolutely necessary to use this to treat his psychiatric condition. No further 0 or other workup is indicated. (2) Cocaine use disorder: Status: Acute Code(s): F14.10 - Cocaine abuse, uncomplicated (3) Schizoaffective disorder, bipolar type: Status: Acute Code(s): F25.0 - Schizoaffective disorder, bipolar type (4) Opioid use disorder: Status: Acute Code(s): F11.90 - Opioid use, unspecified, uncomplicated Plan 12/24: attempt to give anti-psychotics. comfort meds for opioid and cocaine withdrawal. 12/25: refusing medications. period of agitation last night slamming doors and yelling (presumably @). continue current mgmt. 12/26: refusing meds. binging and purging. floridly psychotic. 12/27: had meds last night for sleep, per his request. schedule all haldol tonight with ativan and cogentin. a bit more interactive today, remains delayed and distracted. no binging/purging behaviors or agitated behaviors described by RN report today. 12/28: refused meds last night. Today asks for meds for sx mgt- aggressive today-threw two coffee cups. Begin Depakote 250 mg bid. 12/29: got multiple meds last NOC and overnight per his request. slept 2 hours. refusing meds this morning. commitment paperwork completed. 3-day notice expires tomorrow. c/o opioid craving, asked for methadone. methadone 30 mg daily started today. 12/30: filed for commitment today. haldol and ativan per his request last night. appears in disbelief that he will not be discharged today. 12/31: demanding to leave, getting agitated, banging on nursing station, slamming doors in his room. given IMs x 2, haldol 10 ativan 2 benadryl 50 for first and thorazine 100 for second. 01/01: Remains unpredictable and irritable. Refusing scheduled medications. Section 7/ filed. 01/02: Continue current management. 01/03: refusing meds. irritable, labile. periods of agitation. continue current mgmt, awaiting hearing for . 01/04: refusing meds. irritable, labile. periods of agitation. continue current mgmt, though pt is refusing meds. 01/05: thought-blocked. denies mental illness or need for medications. offer medications. hearing tomorrow. 01/06: committed and ordered medications at hearing. 06/12/20 [facility] DC summary reviewd, pt was discharged on VPA, zyprexa, haldol. 03/14/20 DC summary reviewed, pt discharged on zyprexa, haldol. pt unable to comprehend result, agitated not to be leaving today. 01/07: copy of court order on unit, will order meds accordingly today. no change in presentation. 01/08: Continue current regimen and plans 01/09: Continue current plans and regimen. Discontinue contingent IM Ativan if Depakote refused 01/10: Continue current regimen and plans. 01/11: DC VPA, start tegretol per pt preference. ativan 2 mg IM for refusal of tegretol. continue haldol PO/IM orders. improved from last week. less agitated, a bit more organized and engaging. 01/12: appears more disorganized again today, trouble engaging. refused PO meds last night but did take tegretol PO this morning. 01/13: continues disorganized, difficulty expressing himself. refusing PO meds since yesterday morning. slept 10 hours last night, however 01/14: intermittently taking meds PO versus IM. improved behavior from prior to med order, but remains floridly psychotic. continue current mgmt. 01/16/2023: No changes to current plan 01/17: more compliant with tegretol in recent days, still getting haldol IM. no change in presentation. continue current mgmt. 01/18: remains psychotic, labile. increase tegretol to 300 mg BID. 01/19: continues more aggressive and labile today. increase haldol to 10 BID with back-up IM of 7.5 mg. 01/20: more calm today,periods of agitation, however, in the past 24H. continue current mgmt. declines to change scheduled haldol to thorazine (proposed by MD in the hope he would in order to spare him the IMs). 01/21 continue tx. 01/22 writing for thorazine at bed- mr x1 and check ekg given other antipsychotics on board 01/23 agreed to ekg today, added 1pm dose of 5mg haldol 01/24: taking meds PO, still suffering from AH, possibly VH. perhaps trending more calm, but clearly still periods of agitation in the past several days. 01/25: labile, paranoid delusions. informed staff he experiences AH, mumbles recently. increase tegretol to 400 BID, make IR formulation as he has been chewing the pills. 01/26: more calm today. continue current mgmt. 01/27: continues more calm. some staff concerned for akathisia due to pacing and number of PRNs taken, but appears to be doing less walking than he had been before, does not appear restless or uncomfortable. continue current mgmt, check tegretol level 2 weeks after dose change (02/08). 01/28: stable presentation. intermittent sleep disturbance. continue current mgmt. 01/29: Continue current management. Benadryl for allergies 01/30: Continue current plan of care. 01/31: continues to ask for lots of PRNs. no change in presentation. 01/28 mild anemia and hyponatremia; trend. tegretol level 10.3. 02/01: series of abnormal and dynamic EKGs; today's WNL. cardiology consult requested for opinion. will start lithium pending cards opinion re EKG series. no change in presentation. 02/02: appreciate cardiology consultation and opinion. echocardiogram ordered. lithium started. appears better able to tolerate longer interaction today. 02/03: improved ability to tolerate social engagements continues. feels lithium has been helpful. akathisia likely. decrease haldol 02/10/10 to 5 BID and add thorazine 25 BID at 0900 and 1300. 02/04: clear uptick in psychotic.manic behavior yesterday after haldol dose decrease. eloped today. increase thorazine to 100/100/200 with PRNS available. 02/05: no concerning behaviors since elopement yesterday. refused PO haldol last night, otherwise med compliant. 02/06: med-compliant, no concerning behaviors. continue current mgmt. 02/07: check BMP along with lithium level. stable presentation. 02/08: CBC/BMP not concerning. lithium 0.6, tegretol 9.0. increase lithium dosing from 600 BID to 600/900 as of tonight. DC haldol entirely out of concerns for akathisia. invega not a great option due to tegretol interaction. start prolixin PO with IM back-up as alternative neuroleptic to haldol. 02/09: Continue current tx plan. 02/10: increase prolixin from 5 BID to 5 TID. otherwise continue current mgmt. 02/11: continue current mgmt. check labs jeferson of 02/13. 02/12: Continue current plan. Check labs in AM. 02/13: Continue current treatment plan. Li level 0.68, CMZ level 8.6 02/14: Continue current regimen and plans 02/15: increase lithium to 750/900. T/C increasing tegretol in near future as well. gradually seems to be improving. 02/16: stable. continue current mgmt. has broached feeling depressed the past couple of days. 02/17: Continue current tx plan. 02/18: check labs in several days. stable, Sx much improved from prior but still clearly psychotic. 02/20: no changes Reason for continued inpatient stay Substantial Risk for: rapid decompensation Time Spent With Patient Time: Total time managing care of this patient today ____ minutes.
[2023-02-20 19:04] VITALS: BP 147/66; PULSE 100; RESP 16; TEMP 37; O2SAT 96
[2023-02-20] MEDS: Lithium Carbonate ER 450 MG TABLET.ER 900 MG PO (21:49)
[2023-02-20] MEDS: chlorproMAZINE HCl 100 MG TABLET 200 MG PO (21:50)
[2023-02-21 08:50] VITALS: BP 118/73; PULSE 96; RESP 18; TEMP 36.7; O2SAT 97
[2023-02-21] MEDS: Lithium Carbonate ER 300 MG TABLET.ER PO (09:05)
[2023-02-21] MEDS: fluPHENAZine HCl 5 MG TABLET PO ×3 (09:08→19:56)
[2023-02-21] MEDS: Lithium Carbonate ER 450 MG TABLET.ER PO (09:08)
[2023-02-21] MEDS: Thiamine HCL 100 MG TABLET PO (09:09)
[2023-02-21] MEDS: carBAMazepine 200 MG TABLET 400 MG PO ×2 (09:09→19:58)
[2023-02-21] MEDS: Benztropine Mesylate 1 MG TABLET PO ×2 (09:09→19:58)
[2023-02-21] MEDS: Folic Acid 1 MG TABLET PO (09:09)
[2023-02-21] MEDS: chlorproMAZINE HCl 100 MG TABLET PO ×2 (09:09→14:36)
[2023-02-21] MEDS: Mineral Oil/Petrolatum,White 106 GM Tube 1 APPL TOPICAL (10:30)
--- NOTE | 2023-02-21 16:34 | P.PNPSI_ITS ---
Subjective Subjective Date of Service: 02/21/23 Reason For Visit: Psychosis Interim History: walking the green. initially says everything is fine and he is not hearing AH, then comes back and informs MD he is, in fact, hearing AH. per staff, pacing, RIS. denies AVH. saying aside to nobody, shut up, that's weird. Mental Status Exam Mental Status Exam Narrative: adequately dressed and groomed. up and about the unit. cooperative. linear, logical. guarded. affect constricted, no SI/HI/VH expressed. +AH. Diagnostics Vital Signs (24Hr): Vital Signs - 24 hr 02/20/23 19:04 02/21/23 08:50 Temperature 98.6 F 98.0 F Pulse Rate 100 96 Respiratory Rate 16 18 Blood Pressure 147/66 H 118/73 Pulse Oximetry 96 97 Oxygen Delivery Method Room Air Room Air BMI result Body Mass Index 28.2 Labs 02/07/23 20:01 02/13/23 20:06 Medications Medications Current Medications Acetaminophen (Acetaminophen 325 Mg Tablet) 650 mg PO Q6H PRN PRN Reason: Headache/Pain Mild Scale (1-3) Last Admin: 02/19/23 20:23 Dose: 650 mg Al Hydroxide/Mg Hydroxide (Magnesium Hydrox/Alum Hydrox 30 Ml Oral.Susp) 30 ml PO Q6H PRN PRN Reason: Heartburn/Nausea Last Admin: 01/29/23 22:57 Dose: 30 ml Benzocaine (Throat Lozenge, Medicated Lozenge) 1 lozenge MUCOUS MEM Q2H PRN PRN Reason: Sore Throat Last Admin: 02/07/23 21:47 Dose: 1 lozenge Benztropine Mesylate (Benztropine Mesylate 1 Mg Tablet) 1 mg PO BID [facility] Last Admin: 02/21/23 09:09 Dose: 1 mg Carbamazepine (Carbamazepine 200 Mg Tablet) 400 mg PO BID [facility] Last Admin: 02/21/23 09:09 Dose: 400 mg Chlorpromazine HCl (Chlorpromazine Hcl 100 Mg Tablet) 200 mg PO BEDTIME [facility] Last Admin: 02/20/23 21:50 Dose: 200 mg Chlorpromazine HCl (Chlorpromazine Hcl 100 Mg Tablet) 100 mg PO BID@0900,1300 [facility] Last Admin: 02/21/23 14:36 Dose: 100 mg Chlorpromazine HCl (Chlorpromazine Hcl 100 Mg Tablet) 100 mg PO Q4H PRN PRN Reason: agitation/anxiety Last Admin: 02/20/23 20:59 Dose: 100 mg Clonidine HCl (Clonidine Hcl 0.1 Mg Tablet) 0.1 mg PO Q2H PRN; Protocol PRN Reason: agitation/signs of opioid withdrawal Last Admin: 02/15/23 19:47 Dose: 0.1 mg Diphenhydramine HCl (Diphenhydramine Hcl 25 Mg Capsule) 50 mg PO Q6H PRN PRN Reason: Allergic Symptoms Last Admin: 02/20/23 13:32 Dose: 50 mg Fluphenazine HCl (Fluphenazine Hcl 5 Mg Tablet) 5 mg PO TID [facility] Last Admin: 02/21/23 14:36 Dose: 5 mg Fluphenazine HCl (Fluphenazine Hcl 2.5 Mg/Ml 10 Ml Vial) 5 mg IM TID PRN PRN Reason: refusal of PO fluphenazine Folic Acid (Folic Acid 1 Mg Tablet) 1 mg PO DAILY [facility] Last Admin: 02/21/23 09:09 Dose: 1 mg [place] Carbonate ([place] Carbonate Er 450 Mg Tablet.Er) 900 mg PO BEDTIME [facility] Last Admin: 02/20/23 21:49 Dose: 900 mg [place] Carbonate ([place] Carbonate Er 300 Mg Tablet.Er) 300 mg PO DAILY [facility] Last Admin: 02/21/23 09:05 Dose: 300 mg [place] Carbonate ([place] Carbonate Er 450 Mg Tablet.Er) 450 mg PO DAILY [facility] Last Admin: 02/21/23 09:08 Dose: 450 mg Magnesium Hydroxide (Milk Of Magnesia 30 Ml Oral.Susp) 30 ml PO DAILY PRN PRN Reason: Constipation Multi-Ingred Cream/Lotion/Oil/Oint (Mineral Oil/Petrolatum,White 106 Gm Tube) 1 appl TOPICAL BID [facility]; Protocol Last Admin: 02/21/23 10:30 Dose: 1 appl Nicotine (Nicotine 21 Mg Patch.Td24) 21 mg TRANSDERMA DAILY PRN PRN Reason: smoking cessation Last Admin: 01/15/23 16:06 Dose: 21 mg Nicotine Polacrilex (Nicotine Polacrilex 2 Mg Gum) 4 mg BUCCAL Q2H PRN PRN Reason: nicotine cravings Last Admin: 02/09/23 11:45 Dose: 4 mg Ondansetron HCl (Ondansetron Odt 4 Mg Tab.Rapdis) 4 mg TRANSLINGU Q6H PRN PRN Reason: Nausea and Vomiting Last Admin: 01/28/23 14:44 Dose: 4 mg Thiamine HCl (Thiamine Hcl 100 Mg Tablet) 100 mg PO DAILY [facility] Last Admin: 02/21/23 09:09 Dose: 100 mg Trazodone HCl (Trazodone Hcl 50 Mg Tablet) 50 mg PO BEDTIME MRX1 PRN PRN Reason: Insomnia Last Admin: 02/12/23 20:55 Dose: 50 mg Allergies Allergies Allergy/AdvReac Type Severity Reaction Status Date / Time morphine [MORPHINE] AdvReac Unknown NAUSEA Verified 12/10/22 19:56 Assessment & Plan Assessment & Plan (1) Nonspecific ST-T wave electrocardiographic changes: Status: Acute Code(s): R94.31 - Abnormal electrocardiogram [ECG] [EKG] Assessment and Plan: Patient with nonspecific ST T wave changes which had dynamic. Unclear significance of these. He has no cardiac symptoms whatsoever. Normal physical exam. The septal Q-waves noted on EKG few days ago and not on yesterday's EKG on most likely due to lead placement and not suggestive for septal infarct. Would suggest an echocardiogram as cooking can be associated with cardiomyopathy. If this is within normal limits no further workup is indicated. There is no issues with use of lithium if it is absolutely necessary to use this to treat his psychiatric condition. No further 0 or other workup is indicated. (2) Cocaine use disorder: Status: Acute Code(s): F14.10 - Cocaine abuse, uncomplicated (3) Schizoaffective disorder, bipolar type: Status: Acute Code(s): F25.0 - Schizoaffective disorder, bipolar type (4) Opioid use disorder: Status: Acute Code(s): F11.90 - Opioid use, unspecified, uncomplicated Plan 12/24: attempt to give anti-psychotics. comfort meds for opioid and cocaine withdrawal. 12/25: refusing medications. period of agitation last night slamming doors and yelling (presumably @). continue current mgmt. 12/26: refusing meds. binging and purging. floridly psychotic. 12/27: had meds last night for sleep, per his request. schedule all haldol tonight with ativan and cogentin. a bit more interactive today, remains delayed and distracted. no binging/purging behaviors or agitated behaviors described by RN report today. 12/28: refused meds last night. Today asks for meds for sx mgt- aggressive today- threw two coffee cups. Begin Depakote 250 mg bid. 12/29: got multiple meds last NOC and overnight per his request. slept 2 hours. refusing meds this morning. commitment paperwork completed. 3-day notice expires tomorrow. c/o opioid craving, asked for methadone. methadone 30 mg daily started today. 12/30: filed for commitment today. haldol and ativan per his request last night. appears in disbelief that he will not be discharged today. 12/31: demanding to leave, getting agitated, banging on nursing station, slamming doors in his room. given IMs x 2, haldol 10 ativan 2 benadryl 50 for first and thorazine 100 for second. 01/01: Remains unpredictable and irritable. Refusing scheduled medications. Section 7/8 filed. 01/02: Continue current management. 01/03: refusing meds. irritable, labile. periods of agitation. continue current mgmt, awaiting hearing for . 01/04: refusing meds. irritable, labile. periods of agitation. continue current mgmt, though pt is refusing meds. 01/05: thought-blocked. denies mental illness or need for medications. offer medications. hearing tomorrow. 01/06: committed and ordered medications at hearing. 06/12/20 [facility] [place] summary reviewd, pt was discharged on VPA, zyprexa, haldol. 03/14/20 DC summary reviewed, pt discharged on zyprexa, haldol. pt unable to comprehend result, agitated not to be leaving today. 01/07: copy of court order on unit, will order meds accordingly today. no change in presentation. 2: Continue current regimen and plans 01/09: Continue current plans and regimen. Discontinue contingent IM Ativan if Depakote refused 01/10: Continue current regimen and plans. 01/11: DC VPA, start tegretol per pt preference. ativan 2 mg IM for refusal of tegretol. continue haldol PO/IM orders. improved from last week. less agitated, a bit more organized and engaging. 01/12: appears more disorganized again today, trouble engaging. refused PO meds last night but did take tegretol PO this morning. 01/13: continues disorganized, difficulty expressing himself. refusing PO meds since yesterday morning. slept 10 hours last night, however 01/14: intermittently taking meds PO versus IM. improved behavior from prior to med order, but remains floridly psychotic. continue current mgmt. 01/16/2023: No changes to current plan 01/17: more compliant with tegretol in recent days, still getting haldol IM. no change in presentation. continue current mgmt. 01/18: remains psychotic, labile. increase tegretol to 300 mg BID. 01/19: continues more aggressive and labile today. increase haldol to 10 BID with back-up IM of 7.5 mg. 01/20: more calm today,periods of agitation, however, in the past 24H. continue current mgmt. declines to change scheduled haldol to thorazine (proposed by MD in the hope he would in order to spare him the IMs). 01/21 continue tx. 01/22 writing for thorazine at bed- mr x1 and check ekg given other antipsychotics on board 01/23 agreed to ekg today, added 1pm dose of 5mg haldol 01/24: taking meds PO, still suffering from AH, possibly VH. perhaps trending more calm, but clearly still periods of agitation in the past several days. 01/25: labile, paranoid delusions. informed staff he experiences AH, mumbles recently. increase tegretol to 400 BID, make IR formulation as he has been chewing the pills. 01/26: more calm today. continue current mgmt. 01/27: continues more calm. some staff concerned for akathisia due to pacing and number of PRNs taken, but appears to be doing less walking than he had been before, does not appear restless or uncomfortable. continue current mgmt, check tegretol level 2 weeks after dose change (02/08). 01/28: stable presentation. intermittent sleep disturbance. continue current mgmt. 01/29: Continue current management. Benadryl for allergies 01/30: Continue current plan of care. 01/31: continues to ask for lots of PRNs. no change in presentation. 01/28 mild anemia and hyponatremia; trend. tegretol level 10.3. 02/01: series of abnormal and dynamic EKGs; today's WNL. cardiology consult requested for opinion. will start lithium pending cards opinion re EKG series. no change in presentation. 02/02: appreciate cardiology consultation and opinion. echocardiogram ordered. lithium started. appears better able to tolerate longer interaction today. 02/03: improved ability to tolerate social engagements continues. feels lithium has been helpful. akathisia likely. decrease haldol 02/10/10 to 5 BID and add thorazine 25 BID at 0900 and 1300. 02/04: clear uptick in psychotic.manic behavior yesterday after haldol dose decrease. eloped today. increase thorazine to 100/100/200 with PRNS available. 02/05: no concerning behaviors since elopement yesterday. refused PO haldol last night, otherwise med compliant. 02/06: med-compliant, no concerning behaviors. continue current mgmt. 02/07: check BMP along with lithium level. stable presentation. 02/08: CBC/BMP not concerning. lithium 0.6, tegretol 9.0. increase lithium dosing from 600 BID to 600/900 as of tonight. DC haldol entirely out of concerns for akathisia. invega not a great option due to tegretol interaction. start prolixin PO with IM back-up as alternative neuroleptic to haldol. 02/09: Continue current tx plan. 02/10: increase prolixin from 5 BID to 5 TID. otherwise continue current mgmt. 02/11: continue current mgmt. check labs jeferson of 02/13. 02/12: Continue current plan. Check labs in AM. 02/13: Continue current treatment plan. Li level 0.68, CMZ level 8.6 02/14: Continue current regimen and plans 02/15: increase lithium to 750/900. T/C increasing tegretol in near future as well. gradually seems to be improving. 02/16: stable. continue current mgmt. has broached feeling depressed the past couple of days. 02/17: Continue current tx plan. 02/18: check labs in several days. stable, Sx much improved from prior but still clearly psychotic. 02/20: no changes 02/21: continue current mgmt. check labs soon. still psychotic, endorsing AH. Reason for continued inpatient stay Substantial Risk for: inability to function and rapid decompensation Time Spent With Patient Time: Total time managing care of this patient today ____ minutes.
[2023-02-21 19:50] VITALS: BP 116/59; PULSE 85; RESP 18; TEMP 36.6; O2SAT 97
[2023-02-21] MEDS: chlorproMAZINE HCl 100 MG TABLET 200 MG PO (19:55)
[2023-02-21] MEDS: Lithium Carbonate ER 450 MG TABLET.ER 900 MG PO (19:56)
[2023-02-22] MEDS: carBAMazepine 200 MG TABLET 400 MG PO ×2 (09:42→21:04)
[2023-02-22] MEDS: fluPHENAZine HCl 5 MG TABLET PO ×3 (09:43→21:03)
[2023-02-22] MEDS: Folic Acid 1 MG TABLET PO (09:43)
[2023-02-22] MEDS: Thiamine HCL 100 MG TABLET PO (09:43)
[2023-02-22] MEDS: Benztropine Mesylate 1 MG TABLET PO ×2 (09:43→21:06)
[2023-02-22] MEDS: Lithium Carbonate ER 300 MG TABLET.ER PO (09:43)
[2023-02-22] MEDS: Lithium Carbonate ER 450 MG TABLET.ER PO (09:43)
[2023-02-22] MEDS: chlorproMAZINE HCl 100 MG TABLET PO ×2 (09:43→14:25)
--- NOTE | 2023-02-22 16:16 | HO.PSYCHPN ---
Subjective Subjective Date of Service: 02/22/23 Reason For Visit: Psychosis Interim History: calm, cooperative. pacing the halls, often self-dialoguing. no substantial change in presentation. per staff, intermittent pacing. denies SI/HI/AVH. +RIS. no change in presentation. taking meds. Mental Status Exam Mental Status Exam Narrative: adequately dressed and groomed. up and about the unit. cooperative. linear, logical. guarded. affect constricted, no SI/HI/VH expressed. +AH. Diagnostics Vital Signs (24Hr): Vital Signs - 24 hr 02/21/23 19:50 Temperature 97.8 F Pulse Rate 85 Respiratory Rate 18 Blood Pressure 116/59 L Pulse Oximetry 97 Oxygen Delivery Method Room Air BMI result Body Mass Index 28.2 Labs 02/07/23 20:01 02/13/23 20:06 Medications Medications Current Medications Acetaminophen (Acetaminophen 325 Mg Tablet) 650 mg PO Q6H PRN PRN Reason: Headache/Pain Mild Scale (1-3) Last Admin: 02/19/23 20:23 Dose: 650 mg Al Hydroxide/Mg Hydroxide (Magnesium Hydrox/Alum Hydrox 30 Ml Oral.Susp) 30 ml PO Q6H PRN PRN Reason: Heartburn/Nausea Last Admin: 01/29/23 22:57 Dose: 30 ml Benzocaine (Throat Lozenge, Medicated Lozenge) 1 lozenge MUCOUS MEM Q2H PRN PRN Reason: Sore Throat Last Admin: 02/07/23 21:47 Dose: 1 lozenge Benztropine Mesylate (Benztropine Mesylate 1 Mg Tablet) 1 mg PO BID [facility] Last Admin: 02/22/23 09:43 Dose: 1 mg Carbamazepine (Carbamazepine 200 Mg Tablet) 400 mg PO BID [facility] Last Admin: 02/22/23 09:42 Dose: 400 mg Chlorpromazine HCl (Chlorpromazine Hcl 100 Mg Tablet) 200 mg PO BEDTIME [facility] Last Admin: 02/21/23 19:55 Dose: 200 mg Chlorpromazine HCl (Chlorpromazine Hcl 100 Mg Tablet) 100 mg PO BID@0900,1300 [facility] Last Admin: 02/22/23 14:25 Dose: 100 mg Chlorpromazine HCl (Chlorpromazine Hcl 100 Mg Tablet) 100 mg PO Q4H PRN PRN Reason: agitation/anxiety Last Admin: 02/20/23 20:59 Dose: 100 mg Clonidine HCl (Clonidine Hcl 0.1 Mg Tablet) 0.1 mg PO Q2H PRN; Protocol PRN Reason: agitation/signs of opioid withdrawal Last Admin: 02/15/23 19:47 Dose: 0.1 mg Diphenhydramine HCl (Diphenhydramine Hcl 25 Mg Capsule) 50 mg PO Q6H PRN PRN Reason: Allergic Symptoms Last Admin: 02/20/23 13:32 Dose: 50 mg Fluphenazine HCl (Fluphenazine Hcl 5 Mg Tablet) 5 mg PO TID [facility] Last Admin: 02/22/23 09:43 Dose: 5 mg Fluphenazine HCl (Fluphenazine Hcl 2.5 Mg/Ml 10 Ml Vial) 5 mg IM TID PRN PRN Reason: refusal of PO fluphenazine Folic Acid (Folic Acid 1 Mg Tablet) 1 mg PO DAILY [facility] Last Admin: 02/22/23 09:43 Dose: 1 mg [place] Carbonate ([place] Carbonate Er 450 Mg Tablet.Er) 900 mg PO BEDTIME [facility] Last Admin: 02/21/23 19:56 Dose: 900 mg [place] Carbonate ([place] Carbonate Er 300 Mg Tablet.Er) 300 mg PO DAILY [facility] Last Admin: 02/22/23 09:43 Dose: 300 mg [place] Carbonate ([place] Carbonate Er 450 Mg Tablet.Er) 450 mg PO DAILY [facility] Last Admin: 02/22/23 09:43 Dose: 450 mg Magnesium Hydroxide (Milk Of Magnesia 30 Ml Oral.Susp) 30 ml PO DAILY PRN PRN Reason: Constipation Multi-Ingred Cream/Lotion/Oil/Oint (Mineral Oil/Petrolatum,White 106 Gm Tube) 1 appl TOPICAL BID [facility]; Protocol Last Admin: 02/22/23 09:57 Dose: Not Given Nicotine (Nicotine 21 Mg Patch.Td24) 21 mg TRANSDERMA DAILY PRN PRN Reason: smoking cessation Last Admin: 01/15/23 16:06 Dose: 21 mg Nicotine Polacrilex (Nicotine Polacrilex 2 Mg Gum) 4 mg BUCCAL Q2H PRN PRN Reason: nicotine cravings Last Admin: 02/09/23 11:45 Dose: 4 mg Ondansetron HCl (Ondansetron Odt 4 Mg Tab.Rapdis) 4 mg TRANSLINGU Q6H PRN PRN Reason: Nausea and Vomiting Last Admin: 01/28/23 14:44 Dose: 4 mg Thiamine HCl (Thiamine Hcl 100 Mg Tablet) 100 mg PO DAILY [facility] Last Admin: 02/22/23 09:43 Dose: 100 mg Trazodone HCl (Trazodone Hcl 50 Mg Tablet) 50 mg PO BEDTIME MRX1 PRN PRN Reason: Insomnia Last Admin: 02/12/23 20:55 Dose: 50 mg Allergies Allergies Allergy/AdvReac Type Severity Reaction Status Date / Time morphine [MORPHINE] AdvReac Unknown NAUSEA Verified 12/10/22 19:56 Assessment & Plan Assessment & Plan (1) Nonspecific ST-T wave electrocardiographic changes: Status: Acute Code(s): R94.31 - Abnormal electrocardiogram [ECG] [EKG] Assessment and Plan: Patient with nonspecific ST T wave changes which had dynamic. Unclear significance of these. He has no cardiac symptoms whatsoever. Normal physical exam. The septal Q-waves noted on EKG few days ago and not on yesterday's EKG on most likely due to lead placement and not suggestive for septal infarct. Would suggest an echocardiogram as cooking can be associated with cardiomyopathy. If this is within normal limits no further workup is indicated. There is no issues with use of lithium if it is absolutely necessary to use this to treat his psychiatric condition. No further 0 or other workup is indicated. (2) Cocaine use disorder: Status: Acute Code(s): F14.10 - Cocaine abuse, uncomplicated (3) Schizoaffective disorder, bipolar type: Status: Acute Code(s): F25.0 - Schizoaffective disorder, bipolar type (4) Opioid use disorder: Status: Acute Code(s): F11.90 - Opioid use, unspecified, uncomplicated Plan 12/24: attempt to give anti-psychotics. comfort meds for opioid and cocaine withdrawal. 12/25: refusing medications. period of agitation last night slamming doors and yelling (presumably @). continue current mgmt. 12/26: refusing meds. binging and purging. floridly psychotic. 12/27: had meds last night for sleep, per his request. schedule all haldol tonight with ativan and cogentin. a bit more interactive today, remains delayed and distracted. no binging/purging behaviors or agitated behaviors described by RN report today. 12/28: refused meds last night. Today asks for meds for sx mgt- aggressive today-threw two coffee cups. Begin Depakote 250 mg bid. 12/29: got multiple meds last NOC and overnight per his request. slept 2 hours. refusing meds this morning. commitment paperwork completed. 3-day notice expires tomorrow. c/o opioid craving, asked for methadone. methadone 30 mg daily started today. 12/30: filed for commitment today. haldol and ativan per his request last night. appears in disbelief that he will not be discharged today. 12/31: demanding to leave, getting agitated, banging on nursing station, slamming doors in his room. given IMs x 2, haldol 10 ativan 2 benadryl 50 for first and thorazine 100 for second. 01/01: Remains unpredictable and irritable. Refusing scheduled medications. Section 7/ filed. 01/02: Continue current management. 01/03: refusing meds. irritable, labile. periods of agitation. continue current mgmt, awaiting hearing for . 01/04: refusing meds. irritable, labile. periods of agitation. continue current mgmt, though pt is refusing meds. 01/05: thought-blocked. denies mental illness or need for medications. offer medications. hearing tomorrow. 01/06: committed and ordered medications at hearing. 06/12/20 [facility] [place] summary reviewd, pt was discharged on VPA, zyprexa, haldol. 03/14/20 DC summary reviewed, pt discharged on zyprexa, haldol. pt unable to comprehend result, agitated not to be leaving today. 01/07: copy of court order on unit, will order meds accordingly today. no change in presentation. 01/08: Continue current regimen and plans 01/09: Continue current plans and regimen. Discontinue contingent IM Ativan if Depakote refused 01/10: Continue current regimen and plans. 01/11: DC VPA, start tegretol per pt preference. ativan 2 mg IM for refusal of tegretol. continue haldol PO/IM orders. improved from last week. less agitated, a bit more organized and engaging. 01/12: appears more disorganized again today, trouble engaging. refused PO meds last night but did take tegretol PO this morning. 01/13: continues disorganized, difficulty expressing himself. refusing PO meds since yesterday morning. slept 10 hours last night, however 01/14: intermittently taking meds PO versus IM. improved behavior from prior to med order, but remains floridly psychotic. continue current mgmt. 01/16/2023: No changes to current plan 01/17: more compliant with tegretol in recent days, still getting haldol IM. no change in presentation. continue current mgmt. 01/18: remains psychotic, labile. increase tegretol to 300 mg BID. 01/19: continues more aggressive and labile today. increase haldol to 10 BID with back-up IM of 7.5 mg. 01/20: more calm today,periods of agitation, however, in the past 24H. continue current mgmt. declines to change scheduled haldol to thorazine (proposed by MD in the hope he would in order to spare him the IMs). 01/21 continue tx. 01/22 writing for thorazine at bed- mr x1 and check ekg given other antipsychotics on board 01/23 agreed to ekg today, added 1pm dose of 5mg haldol 01/24: taking meds PO, still suffering from AH, possibly VH. perhaps trending more calm, but clearly still periods of agitation in the past several days. 01/25: labile, paranoid delusions. informed staff he experiences AH, mumbles recently. increase tegretol to 400 BID, make IR formulation as he has been chewing the pills. 01/26: more calm today. continue current mgmt. 01/27: continues more calm. some staff concerned for akathisia due to pacing and number of PRNs taken, but appears to be doing less walking than he had been before, does not appear restless or uncomfortable. continue current mgmt, check tegretol level 2 weeks after dose change (02/08). 01/28: stable presentation. intermittent sleep disturbance. continue current mgmt. 01/29: Continue current management. Benadryl for allergies 01/30: Continue current plan of care. 01/31: continues to ask for lots of PRNs. no change in presentation. 01/28 mild anemia and hyponatremia; trend. tegretol level 10.3. 02/01: series of abnormal and dynamic EKGs; today's WNL. cardiology consult requested for opinion. will start lithium pending cards opinion re EKG series. no change in presentation. 02/02: appreciate cardiology consultation and opinion. echocardiogram ordered. lithium started. appears better able to tolerate longer interaction today. 02/03: improved ability to tolerate social engagements continues. feels lithium has been helpful. akathisia likely. decrease haldol 02/10/10 to 5 BID and add thorazine 25 BID at 0900 and 1300. 02/04: clear uptick in psychotic.manic behavior yesterday after haldol dose decrease. eloped today. increase thorazine to 100/100/200 with PRNS available. 02/05: no concerning behaviors since elopement yesterday. refused PO haldol last night, otherwise med compliant. 02/06: med-compliant, no concerning behaviors. continue current mgmt. 02/07: check BMP along with lithium level. stable presentation. 02/08: CBC/BMP not concerning. lithium 0.6, tegretol 9.0. increase lithium dosing from 600 BID to 600/900 as of tonsohail. DC haldol entirely out of concerns for akathisia. invega not a great option due to tegretol interaction. start prolixin PO with IM back-up as alternative neuroleptic to haldol. 02/09: Continue current tx plan. 02/10: increase prolixin from 5 BID to 5 TID. otherwise continue current mgmt. 02/11: continue current mgmt. check labs jeferson of 02/13. 02/12: Continue current plan. Check labs in AM. 02/13: Continue current treatment plan. Li level 0.68, CMZ level 8.6 02/14: Continue current regimen and plans 02/15: increase lithium to 750/900. T/C increasing tegretol in near future as well. gradually seems to be improving. 02/16: stable. continue current mgmt. has broached feeling depressed the past couple of days. 02/17: Continue current tx plan. 02/18: check labs in several days. stable, Sx much improved from prior but still clearly psychotic. 02/20: no changes 02/21: continue current mgmt. check labs soon. still psychotic, endorsing AH. 02/22: no change in presentation. check lithium and tegretol levels tomorrow. Reason for continued inpatient stay Substantial Risk for: inability to function and rapid decompensation Time Spent With Patient Time: Total time managing care of this patient today __25__ minutes.
[2023-02-22 18:00] VITALS: BP 145/88; PULSE 91; RESP 16; TEMP 36.7; O2SAT 99
[2023-02-22] MEDS: diphenhydrAMINE HCL 25 MG CAPSULE 50 MG PO (18:26)
[2023-02-22] MEDS: chlorproMAZINE HCl 100 MG TABLET 200 MG PO (21:04)
[2023-02-22] MEDS: Acetaminophen 325 MG TABLET 650 MG PO (21:05)
[2023-02-22] MEDS: Lithium Carbonate ER 450 MG TABLET.ER 900 MG PO (21:05)
[2023-02-23 08:52] LABS: MANUAL DIFF FLAG NO
[2023-02-23 08:58] LABS: Basophils Absolute Auto 0.1 X10*3/uL (0.0-0.2); Basophils Percent Auto 1.3 % (0-2); Eosinophils Percent Auto 9.7 % (0-4); Hematocrit 42.8 % (42.0-52.0); Hemoglobin 14.4 g/dl (14.0-18.0); Imm Gran Abs Auto 0.12 X10*3/uL (0.00-0.03); Imm Gran Pct Auto 1.2 % (0.0-0.4); Lymphocytes Absolute Auto 2.3 X10*3/uL (1.2-4.9); Lymphocytes Percent Auto 22.7 % (20-40); Mean Corpuscular HGB Conc 33.6 g/dl (31.0-36.0); Mean Corpuscular Volume 89.2 fL (80.0-98.0); Mean Platelet Volume 10.5 fL (9.4-12.4); Monocytes Percent Auto 10.2 % (2-11); Neutrophils Absolute Auto 5.5 x10*3/uL (2.0-8.3); Neutrophils Percent Auto 54.9 % (45-73); Platelet Count 195 X10*3/uL (160-400); Red Cell Distribution Width 11.8 % (11.0-16.0)
[2023-02-23 09:10] LABS: Lithium 0.96 mmol/L (0.60-1.20)
[2023-02-23 09:13] LABS: Alanine Aminotransferase 15 U/L (0-40); Albumin Level 4.6 g/dL (3.5-5.0); Alkaline Phosphatase 62 U/L (39-117); Anion Gap 14 (12-20); Aspartate Amino Transferase 13 U/L (5-37); Bilirubin Direct 0.1 mg/dL (0.0-0.5); Bilirubin Total 0.4 mg/dL (0.0-1.0); Blood Urea Nitrogen 10 mg/dL (9-16); Calcium 10.2 mg/dL (8.4-10.2); Carbon Dioxide 29 mmol/L (22-29); Chloride 102 mmol/L (96-108); Creatinine Clr Calc Pharmacy 127.2; Estimated Glomerular Filt Rate > 60; Glucose Random 106 mg/dL (60-115); Potassium 4.8 mmol/L (3.3-5.1); Sodium 140 mmol/L (135-145); Total Protein 6.9 g/dL (6.5-8.0)
[2023-02-23 09:17] LABS: Carbamazepine Tegretol 8.3 mcg/mL (5.0-12.0)
[2023-02-23] MEDS: Lithium Carbonate ER 450 MG TABLET.ER PO (09:49)
[2023-02-23] MEDS: Thiamine HCL 100 MG TABLET PO (09:49)
[2023-02-23] MEDS: fluPHENAZine HCl 5 MG TABLET PO ×3 (09:49→21:05)
[2023-02-23] MEDS: carBAMazepine 200 MG TABLET 400 MG PO (09:50)
[2023-02-23] MEDS: Lithium Carbonate ER 300 MG TABLET.ER PO (09:50)
[2023-02-23] MEDS: Folic Acid 1 MG TABLET PO (09:50)
[2023-02-23] MEDS: chlorproMAZINE HCl 100 MG TABLET PO ×3 (09:50→18:23)
[2023-02-23] MEDS: Benztropine Mesylate 1 MG TABLET PO ×2 (09:50→21:05)
--- NOTE | 2023-02-23 15:53 | HO.PSYCHPN ---
Subjective Subjective Date of Service: 02/23/23 Reason For Visit: Psychosis Interim History: calm, cooperative. c/o can't stay in one place all the time. labs reviewed, informed tegretol dosing to be increased and neuroleptics regimen to be reviewed. per staff, +RIS. some lability, irritability. taking meds, otherwise pleasant. appeared to have slept. Mental Status Exam Mental Status Exam Narrative: adequately dressed and groomed. up and about the unit. cooperative. linear, logical. guarded. affect constricted, no SI/HI/VH expressed. +AH. Diagnostics Vital Signs (24Hr): Vital Signs - 24 hr 02/22/23 18:00 Temperature 98.1 F Pulse Rate 91 Respiratory Rate 16 Blood Pressure 145/88 H Pulse Oximetry 99 Oxygen Delivery Method Room Air BMI result Body Mass Index 28.2 Labs 02/23/23 08:41 02/23/23 08:41 Labs: Laboratory Results - last 48 hr 02/23/23 08:41 WBC 10.0 RBC 4.80 Hgb 14.4 Hct 42.8 MCV 89.2 MCH 30.0 MCHC 33.6 RDW 11.8 Plt Count 195 MPV 10.5 Immature Gran % (Auto) 1.2 H Neut % (Auto) 54.9 Lymph % (Auto) 22.7 [place] % (Auto) 10.2 Eos % (Auto) 9.7 H Baso % (Auto) 1.3 Lymph # (Auto) 2.3 [place] # (Auto) 1.0 Eos # (Auto) 1.0 H Baso # (Auto) 0.1 Abs Immat Gran (auto) 0.12 H Absolute Neuts (auto) 5.5 Absolute Nucleated RBC 0.000 Nucleated RBC % (auto) 0.0 Sodium 140 Potassium 4.8 Chloride 102 Carbon Dioxide 29 Anion Gap 14 BUN 10 Creatinine 1.00 Estim Creat Clear Calc 127.2 Estimated GFR > 60 Random Glucose 106 Calcium 10.2 Total Bilirubin 0.4 Direct Bilirubin 0.1 AST 13 ALT 15 Alkaline Phosphatase 62 Total Protein 6.9 Albumin 4.6 Carbamazepine 8.3 [place] 0.96 Medications Medications Current Medications Acetaminophen (Acetaminophen 325 Mg Tablet) 650 mg PO Q6H PRN PRN Reason: Headache/Pain Mild Scale (1-3) Last Admin: 02/22/23 21:05 Dose: 650 mg Al Hydroxide/Mg Hydroxide (Magnesium Hydrox/Alum Hydrox 30 Ml Oral.Susp) 30 ml PO Q6H PRN PRN Reason: Heartburn/Nausea Last Admin: 01/29/23 22:57 Dose: 30 ml Benzocaine (Throat Lozenge, Medicated Lozenge) 1 lozenge MUCOUS MEM Q2H PRN PRN Reason: Sore Throat Last Admin: 02/07/23 21:47 Dose: 1 lozenge Benztropine Mesylate (Benztropine Mesylate 1 Mg Tablet) 1 mg PO BID [facility] Last Admin: 02/23/23 09:50 Dose: 1 mg Carbamazepine (Carbamazepine 200 Mg Tablet) 400 mg PO DAILY [facility] Chlorpromazine HCl (Chlorpromazine Hcl 100 Mg Tablet) 200 mg PO BEDTIME [facility] Last Admin: 02/22/23 21:04 Dose: 200 mg Chlorpromazine HCl (Chlorpromazine Hcl 100 Mg Tablet) 100 mg PO BID@0900,1300 [facility] Last Admin: 02/23/23 13:34 Dose: 100 mg Chlorpromazine HCl (Chlorpromazine Hcl 100 Mg Tablet) 100 mg PO Q4H PRN PRN Reason: agitation/anxiety Last Admin: 02/20/23 20:59 Dose: 100 mg Clonidine HCl (Clonidine Hcl 0.1 Mg Tablet) 0.1 mg PO Q2H PRN; Protocol PRN Reason: agitation/signs of opioid withdrawal Last Admin: 02/15/23 19:47 Dose: 0.1 mg Diphenhydramine HCl (Diphenhydramine Hcl 25 Mg Capsule) 50 mg PO Q6H PRN PRN Reason: Allergic Symptoms Last Admin: 02/22/23 18:26 Dose: 50 mg Fluphenazine HCl (Fluphenazine Hcl 5 Mg Tablet) 5 mg PO TID [facility] Last Admin: 02/23/23 15:39 Dose: 5 mg Fluphenazine HCl (Fluphenazine Hcl 2.5 Mg/Ml 10 Ml Vial) 5 mg IM TID PRN PRN Reason: refusal of PO fluphenazine Folic Acid (Folic Acid 1 Mg Tablet) 1 mg PO DAILY [facility] Last Admin: 02/23/23 09:50 Dose: 1 mg [place] Carbonate ([place] Carbonate Er 450 Mg Tablet.Er) 900 mg PO BEDTIME [facility] Last Admin: 02/22/23 21:05 Dose: 900 mg [place] Carbonate ([place] Carbonate Er 300 Mg Tablet.Er) 300 mg PO DAILY [facility] Last Admin: 02/23/23 09:50 Dose: 300 mg [place] Carbonate ([place] Carbonate Er 450 Mg Tablet.Er) 450 mg PO DAILY [facility] Last Admin: 02/23/23 09:49 Dose: 450 mg Magnesium Hydroxide (Milk Of Magnesia 30 Ml Oral.Susp) 30 ml PO DAILY PRN PRN Reason: Constipation Multi-Ingred Cream/Lotion/Oil/Oint (Mineral Oil/Petrolatum,White 106 Gm Tube) 1 appl TOPICAL BID [facility]; Protocol Last Admin: 02/23/23 09:57 Dose: Not Given Nicotine (Nicotine 21 Mg Patch.Td24) 21 mg TRANSDERMA DAILY PRN PRN Reason: smoking cessation Last Admin: 01/15/23 16:06 Dose: 21 mg Nicotine Polacrilex (Nicotine Polacrilex 2 Mg Gum) 4 mg BUCCAL Q2H PRN PRN Reason: nicotine cravings Last Admin: 02/09/23 11:45 Dose: 4 mg Ondansetron HCl (Ondansetron Odt 4 Mg Tab.Rapdis) 4 mg TRANSLINGU Q6H PRN PRN Reason: Nausea and Vomiting Last Admin: 01/28/23 14:44 Dose: 4 mg Thiamine HCl (Thiamine Hcl 100 Mg Tablet) 100 mg PO DAILY [facility] Last Admin: 02/23/23 09:49 Dose: 100 mg Trazodone HCl (Trazodone Hcl 50 Mg Tablet) 50 mg PO BEDTIME MRX1 PRN PRN Reason: Insomnia Last Admin: 02/12/23 20:55 Dose: 50 mg Allergies Allergies Allergy/AdvReac Type Severity Reaction Status Date / Time morphine [MORPHINE] AdvReac Unknown NAUSEA Verified 12/10/22 19:56 Assessment & Plan Assessment & Plan (1) Nonspecific ST-T wave electrocardiographic changes: Status: Acute Code(s): R94.31 - Abnormal electrocardiogram [ECG] [EKG] Assessment and Plan: Patient with nonspecific ST T wave changes which had dynamic. Unclear significance of these. He has no cardiac symptoms whatsoever. Normal physical exam. The septal Q-waves noted on EKG few days ago and not on yesterday's EKG on most likely due to lead placement and not suggestive for septal infarct. Would suggest an echocardiogram as cooking can be associated with cardiomyopathy. If this is within normal limits no further workup is indicated. There is no issues with use of lithium if it is absolutely necessary to use this to treat his psychiatric condition. No further 0 or other workup is indicated. (2) Cocaine use disorder: Status: Acute Code(s): F14.10 - Cocaine abuse, uncomplicated (3) Schizoaffective disorder, bipolar type: Status: Acute Code(s): F25.0 - Schizoaffective disorder, bipolar type (4) Opioid use disorder: Status: Acute Code(s): F11.90 - Opioid use, unspecified, uncomplicated Plan 12/24: attempt to give anti-psychotics. comfort meds for opioid and cocaine withdrawal. 12/25: refusing medications. period of agitation last night slamming doors and yelling (presumably @). continue current mgmt. 12/26: refusing meds. binging and purging. floridly psychotic. 12/27: had meds last night for sleep, per his request. schedule all haldol tonight with ativan and cogentin. a bit more interactive today, remains delayed and distracted. no binging/purging behaviors or agitated behaviors described by RN report today. 12/28: refused meds last night. Today asks for meds for sx mgt- aggressive today-threw two coffee cups. Begin Depakote 250 mg bid. 12/29: got multiple meds last NOC and overnight per his request. slept 2 hours. refusing meds this morning. commitment paperwork completed. 3-day notice expires tomorrow. c/o opioid craving, asked for methadone. methadone 30 mg daily started today. 12/30: filed for commitment today. haldol and ativan per his request last night. appears in disbelief that he will not be discharged today. 12/31: demanding to leave, getting agitated, banging on nursing station, slamming doors in his room. given IMs x 2, haldol 10 ativan 2 benadryl 50 for first and thorazine 100 for second. 01/01: Remains unpredictable and irritable. Refusing scheduled medications. Section 7/ filed. 01/02: Continue current management. 01/03: refusing meds. irritable, labile. periods of agitation. continue current mgmt, awaiting hearing for . 01/04: refusing meds. irritable, labile. periods of agitation. continue current mgmt, though pt is refusing meds. 01/05: thought-blocked. denies mental illness or need for medications. offer medications. hearing tomorrow. 01/06: committed and ordered medications at hearing. 06/12/20 [facility] [place] [facility] [place] was discharged on VPA, zyprexa, haldol. 03/14/20 [place] summary reviewed, pt discharged on zyprexa, haldol. pt unable to comprehend result, agitated not to be leaving today. 01/07: copy of court order on unit, will order meds accordingly today. no change in presentation. 01/08: Continue current regimen and plans 01/09: Continue current plans and regimen. Discontinue contingent IM Ativan if Depakote refused 01/10: Continue current regimen and plans. 01/11: DC VPA, start tegretol per pt preference. ativan 2 mg IM for refusal of tegretol. continue haldol PO/IM orders. improved from last week. less agitated, a bit more organized and engaging. 01/12: appears more disorganized again today, trouble engaging. refused PO meds last night but did take tegretol PO this morning. 01/13: continues disorganized, difficulty expressing himself. refusing PO meds since yesterday morning. slept 10 hours last night, however 01/14: intermittently taking meds PO versus IM. improved behavior from prior to med order, but remains floridly psychotic. continue current mgmt. 01/16/2023: No changes to current plan 01/17: more compliant with tegretol in recent days, still getting haldol IM. no change in presentation. continue current mgmt. 01/18: remains psychotic, labile. increase tegretol to 300 mg BID. 01/19: continues more aggressive and labile today. increase haldol to 10 BID with back-up IM of 7.5 mg. 01/20: more calm today,periods of agitation, however, in the past 24H. continue current mgmt. declines to change scheduled haldol to thorazine (proposed by in the hope he would in order to spare him the IMs). 01/21 continue tx. 01/22 writing for thorazine at bed- mr x1 and check ekg given other antipsychotics on board 01/23 agreed to ekg today, added 1pm dose of 5mg haldol 01/24: taking meds PO, still suffering from AH, possibly VH. perhaps trending more calm, but clearly still periods of agitation in the past several days. 01/25: labile, paranoid delusions. informed staff he experiences AH, mumbles recently. increase tegretol to 400 BID, make IR formulation as he has been chewing the pills. 01/26: more calm today. continue current mgmt. 01/27: continues more calm. some staff concerned for akathisia due to pacing and number of PRNs taken, but appears to be doing less walking than he had been before, does not appear restless or uncomfortable. continue current mgmt, check tegretol level 2 weeks after dose change (02/08). 01/28: stable presentation. intermittent sleep disturbance. continue current mgmt. 01/29: Continue current management. Benadryl for allergies 01/30: Continue current plan of care. 01/31: continues to ask for lots of PRNs. no change in presentation. 01/28 mild anemia and hyponatremia; trend. tegretol level 10.3. 02/01: series of abnormal and dynamic EKGs; today's WNL. cardiology consult requested for opinion. will start lithium pending cards opinion re EKG series. no change in presentation. 02/02: appreciate cardiology consultation and opinion. echocardiogram ordered. lithium started. appears better able to tolerate longer interaction today. 02/03: improved ability to tolerate social engagements continues. feels lithium has been helpful. akathisia likely. decrease haldol 02/10/10 to 5 BID and add thorazine 25 BID at 0900 and 1300. 02/04: clear uptick in psychotic.manic behavior yesterday after haldol dose decrease. eloped today. increase thorazine to 100/100/200 with PRNS available. 02/05: no concerning behaviors since elopement yesterday. refused PO haldol last night, otherwise med compliant. 02/06: med-compliant, no concerning behaviors. continue current mgmt. 02/07: check BMP along with lithium level. stable presentation. 02/08: CBC/BMP not concerning. lithium 0.6, tegretol 9.0. increase lithium dosing from 600 BID to 600/900 as of tonight. DC haldol entirely out of concerns for akathisia. invega not a great option due to tegretol interaction. start prolixin PO with IM back-up as alternative neuroleptic to haldol. 02/09: Continue current tx plan. 02/10: increase prolixin from 5 BID to 5 TID. otherwise continue current mgmt. 02/11: continue current mgmt. check labs jeferson of 02/13. 02/12: Continue current plan. Check labs in AM. 02/13: Continue current treatment plan. Li level 0.68, CMZ level 8.6 02/14: Continue current regimen and plans 02/15: increase lithium to 750/900. T/C increasing tegretol in near future as well. gradually seems to be improving. 02/16: stable. continue current mgmt. has broached feeling depressed the past couple of days. 02/17: Continue current tx plan. 02/18: check labs in several days. stable, Sx much improved from prior but still clearly psychotic. 02/20: no changes 02/21: continue current mgmt. check labs soon. still psychotic, endorsing AH. 02/22: no change in presentation. check lithium and tegretol levels tomorrow. 02/23: tegretol 8.3, lithium 0.96. increase tegretol from 400 BID to 400/600 as of tonight. c/o restlessness, concern for akathisia. will review neuroleptics regimen if Sx do not improve in next several days (as might be the case if his restlessness is residual dante). also, AH continue. Reason for continued inpatient stay Substantial Risk for: inability to function and rapid decompensation Time Spent With Patient Time: Total time managing care of this patient today __25__ minutes.
[2023-02-23 19:30] VITALS: BP 137/75; PULSE 93; RESP 16; TEMP 36.3; O2SAT 98
[2023-02-23] MEDS: carBAMazepine ER 200 MG TAB.ER.12H 600 MG PO (21:05)
[2023-02-23] MEDS: Lithium Carbonate ER 450 MG TABLET.ER 900 MG PO (21:05)
[2023-02-23] MEDS: chlorproMAZINE HCl 100 MG TABLET 200 MG PO (21:05)
[2023-02-23] MEDS: diphenhydrAMINE HCL 25 MG CAPSULE 50 MG PO (21:38)
[2023-02-24 07:00] VITALS: BMI 28.7
[2023-02-24] MEDS: Benztropine Mesylate 1 MG TABLET PO ×2 (08:46→20:20)
[2023-02-24] MEDS: fluPHENAZine HCl 5 MG TABLET PO ×3 (08:47→20:20)
[2023-02-24] MEDS: Folic Acid 1 MG TABLET PO (08:47)
[2023-02-24] MEDS: chlorproMAZINE HCl 100 MG TABLET PO ×3 (08:47→18:51)
[2023-02-24] MEDS: Lithium Carbonate ER 300 MG TABLET.ER PO (08:47)
[2023-02-24] MEDS: Lithium Carbonate ER 450 MG TABLET.ER PO (08:47)
[2023-02-24] MEDS: carBAMazepine 200 MG TABLET 400 MG PO (08:47)
[2023-02-24] MEDS: Thiamine HCL 100 MG TABLET PO (08:47)
--- NOTE | 2023-02-24 15:49 | HO.PSYCHPN ---
Subjective Subjective Date of Service: 02/24/23 Reason For Visit: Psychosis Interim History: calm, subdued. denies AH. some pacing or in his room. per staff, no change in presentation. perhaps slightly more interactive. Mental Status Exam Mental Status Exam Narrative: adequately dressed and groomed. up and about the unit. cooperative. linear, logical. guarded. affect constricted, no SI/HI/VH expressed. denies AH. Diagnostics Vital Signs (24Hr): Vital Signs - 24 hr 02/23/23 19:30 Temperature 97.3 F Pulse Rate 93 Respiratory Rate 16 Blood Pressure 137/75 Pulse Oximetry 98 Oxygen Delivery Method Room Air BMI result Body Mass Index 28.7 Labs 02/23/23 08:41 02/23/23 08:41 Labs: Laboratory Results - last 48 hr 02/23/23 08:41 WBC 10.0 RBC 4.80 Hgb 14.4 Hct 42.8 MCV 89.2 MCH 30.0 MCHC 33.6 RDW 11.8 Plt Count 195 MPV 10.5 Immature Gran % (Auto) 1.2 H Neut % (Auto) 54.9 Lymph % (Auto) 22.7 [place] % (Auto) 10.2 Eos % (Auto) 9.7 H Baso % (Auto) 1.3 Lymph # (Auto) 2.3 [place] # (Auto) 1.0 Eos # (Auto) 1.0 H Baso # (Auto) 0.1 Abs Immat Gran (auto) 0.12 H Absolute Neuts (auto) 5.5 Absolute Nucleated RBC 0.000 Nucleated RBC % (auto) 0.0 Sodium 140 Potassium 4.8 Chloride 102 Carbon Dioxide 29 Anion Gap 14 BUN 10 Creatinine 1.00 Estim Creat Clear Calc 127.2 Estimated GFR > 60 Random Glucose 106 Calcium 10.2 Total Bilirubin 0.4 Direct Bilirubin 0.1 AST 13 ALT 15 Alkaline Phosphatase 62 Total Protein 6.9 Albumin 4.6 Carbamazepine 8.3 [place] 0.96 Medications Medications Current Medications Acetaminophen (Acetaminophen 325 Mg Tablet) 650 mg PO Q6H PRN PRN Reason: Headache/Pain Mild Scale (1-3) Last Admin: 02/22/23 21:05 Dose: 650 mg Al Hydroxide/Mg Hydroxide (Magnesium Hydrox/Alum Hydrox 30 Ml Oral.Susp) 30 ml PO Q6H PRN PRN Reason: Heartburn/Nausea Last Admin: 01/29/23 22:57 Dose: 30 ml Benzocaine (Throat Lozenge, Medicated Lozenge) 1 lozenge MUCOUS MEM Q2H PRN PRN Reason: Sore Throat Last Admin: 02/07/23 21:47 Dose: 1 lozenge Benztropine Mesylate (Benztropine Mesylate 1 Mg Tablet) 1 mg PO BID [facility] Last Admin: 02/24/23 08:46 Dose: 1 mg Carbamazepine (Carbamazepine 200 Mg Tablet) 400 mg PO DAILY [facility] Last Admin: 02/24/23 08:47 Dose: 400 mg Carbamazepine (Carbamazepine Er 200 Mg Tab.Er.12h) 600 mg PO BEDTIME [facility] Last Admin: 02/23/23 21:05 Dose: 600 mg Chlorpromazine HCl (Chlorpromazine Hcl 100 Mg Tablet) 200 mg PO BEDTIME [facility] Last Admin: 02/23/23 21:05 Dose: 200 mg Chlorpromazine HCl (Chlorpromazine Hcl 100 Mg Tablet) 100 mg PO BID@0900,1300 [facility] Last Admin: 02/24/23 12:39 Dose: 100 mg Chlorpromazine HCl (Chlorpromazine Hcl 100 Mg Tablet) 100 mg PO Q4H PRN PRN Reason: agitation/anxiety Last Admin: 02/23/23 18:23 Dose: 100 mg Clonidine HCl (Clonidine Hcl 0.1 Mg Tablet) 0.1 mg PO Q2H PRN; Protocol PRN Reason: agitation/signs of opioid withdrawal Last Admin: 02/15/23 19:47 Dose: 0.1 mg Diphenhydramine HCl (Diphenhydramine Hcl 25 Mg Capsule) 50 mg PO Q6H PRN PRN Reason: Allergic Symptoms Last Admin: 02/23/23 21:38 Dose: 50 mg Fluphenazine HCl (Fluphenazine Hcl 5 Mg Tablet) 5 mg PO TID [facility] Last Admin: 02/24/23 15:09 Dose: 5 mg Fluphenazine HCl (Fluphenazine Hcl 2.5 Mg/Ml 10 Ml Vial) 5 mg IM TID PRN PRN Reason: refusal of PO fluphenazine Folic Acid (Folic Acid 1 Mg Tablet) 1 mg PO DAILY [facility] Last Admin: 02/24/23 08:47 Dose: 1 mg [place] Carbonate ([place] Carbonate Er 450 Mg Tablet.Er) 900 mg PO BEDTIME [facility] Last Admin: 02/23/23 21:05 Dose: 900 mg [place] Carbonate ([place] Carbonate Er 300 Mg Tablet.Er) 300 mg PO DAILY [facility] Last Admin: 02/24/23 08:47 Dose: 300 mg [place] Carbonate ([place] Carbonate Er 450 Mg Tablet.Er) 450 mg PO DAILY [facility] Last Admin: 02/24/23 08:47 Dose: 450 mg Magnesium Hydroxide (Milk Of Magnesia 30 Ml Oral.Susp) 30 ml PO DAILY PRN PRN Reason: Constipation Multi-Ingred Cream/Lotion/Oil/Oint (Mineral Oil/Petrolatum,White 106 Gm Tube) 1 appl TOPICAL BID [facility]; Protocol Last Admin: 02/24/23 08:48 Dose: Not Given Nicotine (Nicotine 21 Mg Patch.Td24) 21 mg TRANSDERMA DAILY PRN PRN Reason: smoking cessation Last Admin: 01/15/23 16:06 Dose: 21 mg Nicotine Polacrilex (Nicotine Polacrilex 2 Mg Gum) 4 mg BUCCAL Q2H PRN PRN Reason: nicotine cravings Last Admin: 02/09/23 11:45 Dose: 4 mg Ondansetron HCl (Ondansetron Odt 4 Mg Tab.Rapdis) 4 mg TRANSLINGU Q6H PRN PRN Reason: Nausea and Vomiting Last Admin: 01/28/23 14:44 Dose: 4 mg Thiamine HCl (Thiamine Hcl 100 Mg Tablet) 100 mg PO DAILY [facility] Last Admin: 02/24/23 08:47 Dose: 100 mg Trazodone HCl (Trazodone Hcl 50 Mg Tablet) 50 mg PO BEDTIME MRX1 PRN PRN Reason: Insomnia Last Admin: 02/12/23 20:55 Dose: 50 mg Allergies Allergies Allergy/AdvReac Type Severity Reaction Status Date / Time morphine [MORPHINE] AdvReac Unknown NAUSEA Verified 12/10/22 19:56 Assessment & Plan Assessment & Plan (1) Nonspecific ST-T wave electrocardiographic changes: Status: Acute Code(s): R94.31 - Abnormal electrocardiogram [ECG] [EKG] Assessment and Plan: Patient with nonspecific ST T wave changes which had dynamic. Unclear significance of these. He has no cardiac symptoms whatsoever. Normal physical exam. The septal Q-waves noted on EKG few days ago and not on yesterday's EKG on most likely due to lead placement and not suggestive for septal infarct. Would suggest an echocardiogram as cooking can be associated with cardiomyopathy. If this is within normal limits no further workup is indicated. There is no issues with use of lithium if it is absolutely necessary to use this to treat his psychiatric condition. No further 0 or other workup is indicated. (2) Cocaine use disorder: Status: Acute Code(s): F14.10 - Cocaine abuse, uncomplicated (3) Schizoaffective disorder, bipolar type: Status: Acute Code(s): F25.0 - Schizoaffective disorder, bipolar type (4) Opioid use disorder: Status: Acute Code(s): F11.90 - Opioid use, unspecified, uncomplicated Plan 12/24: attempt to give anti-psychotics. comfort meds for opioid and cocaine withdrawal. 12/25: refusing medications. period of agitation last night slamming doors and yelling (presumably @). continue current mgmt. 12/26: refusing meds. binging and purging. floridly psychotic. 12/27: had meds last night for sleep, per his request. schedule all haldol tonight with ativan and cogentin. a bit more interactive today, remains delayed and distracted. no binging/purging behaviors or agitated behaviors described by RN report today. 12/28: refused meds last night. Today asks for meds for sx mgt- aggressive today-threw two coffee cups. Begin Depakote 250 mg bid. 12/29: got multiple meds last NOC and overnight per his request. slept 2 hours. refusing meds this morning. commitment paperwork completed. 3-day notice expires tomorrow. c/o opioid craving, asked for methadone. methadone 30 mg daily started today. 12/30: filed for commitment today. haldol and ativan per his request last night. appears in disbelief that he will not be discharged today. 12/31: demanding to leave, getting agitated, banging on nursing station, slamming doors in his room. given IMs x 2, haldol 10 ativan 2 benadryl 50 for first and thorazine 100 for second. 01/01: Remains unpredictable and irritable. Refusing scheduled medications. Section 7/ filed. 01/02: Continue current management. 01/03: refusing meds. irritable, labile. periods of agitation. continue current mgmt, awaiting hearing for . 01/04: refusing meds. irritable, labile. periods of agitation. continue current mgmt, though pt is refusing meds. 01/05: thought-blocked. denies mental illness or need for medications. offer medications. hearing tomorrow. 01/06: committed and ordered medications at hearing. 06/12/20 [facility] [place], pt was discharged on VPA, zyprexa, haldol. 03/14/20 DC summary reviewed, pt discharged on zyprexa, haldol. pt unable to comprehend result, agitated not to be leaving today. 01/07: copy of court order on unit, will order meds accordingly today. no change in presentation. 01/08: Continue current regimen and plans 01/09: Continue current plans and regimen. Discontinue contingent IM Ativan if Depakote refused 01/10: Continue current regimen and plans. 01/11: DC VPA, start tegretol per pt preference. ativan 2 mg IM for refusal of tegretol. continue haldol PO/IM orders. improved from last week. less agitated, a bit more organized and engaging. 01/12: appears more disorganized again today, trouble engaging. refused PO meds last night but did take tegretol PO this morning. 01/13: continues disorganized, difficulty expressing himself. refusing PO meds since yesterday morning. slept 10 hours last night, however 01/14: intermittently taking meds PO versus IM. improved behavior from prior to med order, but remains floridly psychotic. continue current mgmt. 01/16/2023: No changes to current plan 01/17: more compliant with tegretol in recent days, still getting haldol IM. no change in presentation. continue current mgmt. 01/18: remains psychotic, labile. increase tegretol to 300 mg BID. 01/19: continues more aggressive and labile today. increase haldol to 10 BID with back-up IM of 7.5 mg. 01/20: more calm today,periods of agitation, however, in the past 24H. continue current mgmt. declines to change scheduled haldol to thorazine (proposed by in the hope he would in order to spare him the IMs). 9/15 continue tx. 01/22 writing for thorazine at bed- mr x1 and check ekg given other antipsychotics on board 01/23 agreed to ekg today, added 1pm dose of 5mg haldol 01/24: taking meds PO, still suffering from AH, possibly VH. perhaps trending more calm, but clearly still periods of agitation in the past several days. 01/25: labile, paranoid delusions. informed staff he experiences AH, mumbles recently. increase tegretol to 400 BID, make IR formulation as he has been chewing the pills. 01/26: more calm today. continue current mgmt. 01/27: continues more calm. some staff concerned for akathisia due to pacing and number of PRNs taken, but appears to be doing less walking than he had been before, does not appear restless or uncomfortable. continue current mgmt, check tegretol level 2 weeks after dose change (02/08). 01/28: stable presentation. intermittent sleep disturbance. continue current mgmt. 01/29: Continue current management. Benadryl for allergies 01/30: Continue current plan of care. 01/31: continues to ask for lots of PRNs. no change in presentation. 01/28 mild anemia and hyponatremia; trend. tegretol level 10.3. 02/01: series of abnormal and dynamic EKGs; today's WNL. cardiology consult requested for opinion. will start lithium pending cards opinion re EKG series. no change in presentation. 02/02: appreciate cardiology consultation and opinion. echocardiogram ordered. lithium started. appears better able to tolerate longer interaction today. 02/03: improved ability to tolerate social engagements continues. feels lithium has been helpful. akathisia likely. decrease haldol 02/10/10 to 5 BID and add thorazine 25 BID at 0900 and 1300. 02/04: clear uptick in psychotic.manic behavior yesterday after haldol dose decrease. eloped today. increase thorazine to 100/100/200 with PRNS available. 02/05: no concerning behaviors since elopement yesterday. refused PO haldol last night, otherwise med compliant. 02/06: med-compliant, no concerning behaviors. continue current mgmt. 02/07: check BMP along with lithium level. stable presentation. 02/08: CBC/BMP not concerning. lithium 0.6, tegretol 9.0. increase lithium dosing from 600 BID to 600/900 as of tonight. DC haldol entirely out of concerns for akathisia. invega not a great option due to tegretol interaction. start prolixin PO with IM back-up as alternative neuroleptic to haldol. 02/09: Continue current tx plan. 02/10: increase prolixin from 5 BID to 5 TID. otherwise continue current mgmt. 02/11: continue current mgmt. check labs jeferson of 02/13. 02/12: Continue current plan. Check labs in AM. 02/13: Continue current treatment plan. Li level 0.68, CMZ level 8.6 02/14: Continue current regimen and plans 02/15: increase lithium to 750/900. T/C increasing tegretol in near future as well. gradually seems to be improving. 02/16: stable. continue current mgmt. has broached feeling depressed the past couple of days. 02/17: Continue current tx plan. 02/18: check labs in several days. stable, Sx much improved from prior but still clearly psychotic. 02/20: no changes 02/21: continue current mgmt. check labs soon. still psychotic, endorsing AH. 02/22: no change in presentation. check lithium and tegretol levels tomorrow. 02/23: tegretol 8.3, lithium 0.96. increase tegretol from 400 BID to 400/600 as of tonight. c/o restlessness, concern for akathisia. will review neuroleptics regimen if Sx do not improve in next several days (as might be the case if his restlessness is residual dante). also, AH continue. 02/24: stable. continue current mgmt. assess Sx over next week, then check tegretol level. Reason for continued inpatient stay Substantial Risk for: inability to function and rapid decompensation Time Spent With Patient Time: Total time managing care of this patient today ____ minutes.
[2023-02-24 20:00] VITALS: BP 124/73; PULSE 88; RESP 18; TEMP 36.7; O2SAT 100
[2023-02-24] MEDS: Lithium Carbonate ER 450 MG TABLET.ER 900 MG PO (20:19)
[2023-02-24] MEDS: chlorproMAZINE HCl 100 MG TABLET 200 MG PO (20:19)
[2023-02-24] MEDS: carBAMazepine ER 200 MG TAB.ER.12H 600 MG PO (20:20)
[2023-02-25 10:00] VITALS: BP 128/76; PULSE 80; RESP 16; TEMP 36.9; O2SAT 98
[2023-02-25] MEDS: fluPHENAZine HCl 5 MG TABLET PO ×3 (10:23→20:50)
[2023-02-25] MEDS: Thiamine HCL 100 MG TABLET PO (10:23)
[2023-02-25] MEDS: Folic Acid 1 MG TABLET PO (10:23)
[2023-02-25] MEDS: Lithium Carbonate ER 300 MG TABLET.ER PO (10:24)
[2023-02-25] MEDS: carBAMazepine 200 MG TABLET 400 MG PO (10:24)
[2023-02-25] MEDS: Lithium Carbonate ER 450 MG TABLET.ER PO (10:24)
[2023-02-25] MEDS: chlorproMAZINE HCl 100 MG TABLET PO ×2 (10:24→13:47)
[2023-02-25] MEDS: Benztropine Mesylate 1 MG TABLET PO ×2 (10:25→20:50)
--- NOTE | 2023-02-25 14:48 | HO.PSYCHPN ---
Subjective Subjective Date of Service: 02/25/23 Reason For Visit: Psychosis Interim History: calm, cooperative. states his goal for after discharge is to return to live with his parents, get a job and work, and then to move to his own apartment. aware he was using a lot of drugs before he came to the hospital, said he is no longer interested in using drugs. per staff, denies all Sx. +RIS, pacing. +Meds, guarded, vague. slept well overnight. had PRN of thorazine. Mental Status Exam Mental Status Exam Narrative: adequately dressed and groomed. up and about the unit. cooperative. linear, logical. guarded, vague. affect constricted, no SI/HI/VH expressed. denies AH. Diagnostics Vital Signs (24Hr): Vital Signs - 24 hr 02/24/23 20:00 02/25/23 10:00 Temperature 98.0 F 98.4 F Pulse Rate 88 80 Respiratory Rate 18 16 Blood Pressure 124/73 128/76 Pulse Oximetry 100 98 Oxygen Delivery Method Room Air Room Air BMI result Body Mass Index 28.7 Labs 02/23/23 08:41 02/23/23 08:41 Medications Medications Current Medications Acetaminophen (Acetaminophen 325 Mg Tablet) 650 mg PO Q6H PRN PRN Reason: Headache/Pain Mild Scale (1-3) Last Admin: 02/22/23 21:05 Dose: 650 mg Al Hydroxide/Mg Hydroxide (Magnesium Hydrox/Alum Hydrox 30 Ml Oral.Susp) 30 ml PO Q6H PRN PRN Reason: Heartburn/Nausea Last Admin: 01/29/23 22:57 Dose: 30 ml Benzocaine (Throat Lozenge, Medicated Lozenge) 1 lozenge MUCOUS MEM Q2H PRN PRN Reason: Sore Throat Last Admin: 02/07/23 21:47 Dose: 1 lozenge Benztropine Mesylate (Benztropine Mesylate 1 Mg Tablet) 1 mg PO BID [facility] Last Admin: 02/25/23 10:25 Dose: 1 mg Carbamazepine (Carbamazepine 200 Mg Tablet) 400 mg PO DAILY [facility] Last Admin: 02/25/23 10:24 Dose: 400 mg Carbamazepine (Carbamazepine Er 200 Mg Tab.Er.12h) 600 mg PO BEDTIME [facility] Last Admin: 02/24/23 20:20 Dose: 600 mg Chlorpromazine HCl (Chlorpromazine Hcl 100 Mg Tablet) 200 mg PO BEDTIME [facility] Last Admin: 02/24/23 20:19 Dose: 200 mg Chlorpromazine HCl (Chlorpromazine Hcl 100 Mg Tablet) 100 mg PO BID@0900,1300 [facility] Last Admin: 02/25/23 13:47 Dose: 100 mg Chlorpromazine HCl (Chlorpromazine Hcl 100 Mg Tablet) 100 mg PO Q4H PRN PRN Reason: agitation/anxiety Last Admin: 02/24/23 18:51 Dose: 100 mg Clonidine HCl (Clonidine Hcl 0.1 Mg Tablet) 0.1 mg PO Q2H PRN; Protocol PRN Reason: agitation/signs of opioid withdrawal Last Admin: 02/15/23 19:47 Dose: 0.1 mg Diphenhydramine HCl (Diphenhydramine Hcl 25 Mg Capsule) 50 mg PO Q6H PRN PRN Reason: Allergic Symptoms Last Admin: 02/23/23 21:38 Dose: 50 mg Fluphenazine HCl (Fluphenazine Hcl 5 Mg Tablet) 5 mg PO TID [facility] Last Admin: 02/25/23 10:23 Dose: 5 mg Fluphenazine HCl (Fluphenazine Hcl 2.5 Mg/Ml 10 Ml Vial) 5 mg IM TID PRN PRN Reason: refusal of PO fluphenazine Folic Acid (Folic Acid 1 Mg Tablet) 1 mg PO DAILY [facility] Last Admin: 02/25/23 10:23 Dose: 1 mg [place] Carbonate ([place] Carbonate Er 450 Mg Tablet.Er) 900 mg PO BEDTIME [facility] Last Admin: 02/24/23 20:19 Dose: 900 mg [place] Carbonate ([place] Carbonate Er 300 Mg Tablet.Er) 300 mg PO DAILY [facility] Last Admin: 02/25/23 10:24 Dose: 300 mg [place] Carbonate ([place] Carbonate Er 450 Mg Tablet.Er) 450 mg PO DAILY [facility] Last Admin: 02/25/23 10:24 Dose: 450 mg Magnesium Hydroxide (Milk Of Magnesia 30 Ml Oral.Susp) 30 ml PO DAILY PRN PRN Reason: Constipation Multi-Ingred Cream/Lotion/Oil/Oint (Mineral Oil/Petrolatum,White 106 Gm Tube) 1 appl TOPICAL BID [facility]; Protocol Last Admin: 02/25/23 10:27 Dose: Not Given Nicotine (Nicotine 21 Mg Patch.Td24) 21 mg TRANSDERMA DAILY PRN PRN Reason: smoking cessation Last Admin: 01/15/23 16:06 Dose: 21 mg Nicotine Polacrilex (Nicotine Polacrilex 2 Mg Gum) 4 mg BUCCAL Q2H PRN PRN Reason: nicotine cravings Last Admin: 02/09/23 11:45 Dose: 4 mg Ondansetron HCl (Ondansetron Odt 4 Mg Tab.Rapdis) 4 mg TRANSLINGU Q6H PRN PRN Reason: Nausea and Vomiting Last Admin: 01/28/23 14:44 Dose: 4 mg Thiamine HCl (Thiamine Hcl 100 Mg Tablet) 100 mg PO DAILY [facility] Last Admin: 02/25/23 10:23 Dose: 100 mg Trazodone HCl (Trazodone Hcl 50 Mg Tablet) 50 mg PO BEDTIME [facility]1 PRN PRN Reason: Insomnia Last Admin: 02/12/23 20:55 Dose: 50 mg Allergies Allergies Allergy/AdvReac Type Severity Reaction Status Date / Time morphine [MORPHINE] AdvReac Unknown NAUSEA Verified 12/10/22 19:56 Assessment & Plan Assessment & Plan (1) Nonspecific ST-T wave electrocardiographic changes: Status: Acute Code(s): R94.31 - Abnormal electrocardiogram [ECG] [EKG] Assessment and Plan: Patient with nonspecific ST T wave changes which had dynamic. Unclear significance of these. He has no cardiac symptoms whatsoever. Normal physical exam. The septal Q-waves noted on EKG few days ago and not on yesterday's EKG on most likely due to lead placement and not suggestive for septal infarct. Would suggest an echocardiogram as cooking can be associated with cardiomyopathy. If this is within normal limits no further workup is indicated. There is no issues with use of lithium if it is absolutely necessary to use this to treat his psychiatric condition. No further 0 or other workup is indicated. (2) Cocaine use disorder: Status: Acute Code(s): F14.10 - Cocaine abuse, uncomplicated (3) Schizoaffective disorder, bipolar type: Status: Acute Code(s): F25.0 - Schizoaffective disorder, bipolar type (4) Opioid use disorder: Status: Acute Code(s): F11.90 - Opioid use, unspecified, uncomplicated Plan 12/24: attempt to give anti-psychotics. comfort meds for opioid and cocaine withdrawal. 12/25: refusing medications. period of agitation last night slamming doors and yelling (presumably @AH). continue current mgmt. 12/26: refusing meds. binging and purging. floridly psychotic. 12/27: had meds last night for sleep, per his request. schedule all haldol tonight with ativan and cogentin. a bit more interactive today, remains delayed and distracted. no binging/purging behaviors or agitated behaviors described by RN report today. 12/28: refused meds last night. Today asks for meds for sx mgt- aggressive today-threw two coffee cups. Begin Depakote 250 mg bid. 12/29: got multiple meds last NOC and overnight per his request. slept 2 hours. refusing meds this morning. commitment paperwork completed. 3-day notice expires tomorrow. c/o opioid craving, asked for methadone. methadone 30 mg daily started today. 12/30: filed for commitment today. haldol and ativan per his request last night. appears in disbelief that he will not be discharged today. 12/31: demanding to leave, getting agitated, banging on nursing station, slamming doors in his room. given IMs x 2, haldol 10 ativan 2 benadryl 50 for first and thorazine 100 for second. 01/01: Remains unpredictable and irritable. Refusing scheduled medications. Section 7/8 filed. 01/02: Continue current management. 01/03: refusing meds. irritable, labile. periods of agitation. continue current mgmt, awaiting hearing for . 01/04: refusing meds. irritable, labile. periods of agitation. continue current mgmt, though pt is refusing meds. 01/05: thought-blocked. denies mental illness or need for medications. offer medications. hearing tomorrow. 01/06: committed and ordered medications at hearing. 06/12/20 [facility] [place] summary reviewd, pt was discharged on VPA, zyprexa, haldol. 03/14/20 DC summary reviewed, pt discharged on zyprexa, haldol. pt unable to comprehend result, agitated not to be leaving today. 01/07: copy of court order on unit, will order meds accordingly today. no change in presentation. 01/08: Continue current regimen and plans 01/09: Continue current plans and regimen. Discontinue contingent IM Ativan if Depakote refused 01/10: Continue current regimen and plans. 01/11: DC VPA, start tegretol per pt preference. ativan 2 mg IM for refusal of tegretol. continue haldol PO/IM orders. improved from last week. less agitated, a bit more organized and engaging. 01/12: appears more disorganized again today, trouble engaging. refused PO meds last night but did take tegretol PO this morning. 01/13: continues disorganized, difficulty expressing himself. refusing PO meds since yesterday morning. slept 10 hours last night, however 01/14: intermittently taking meds PO versus IM. improved behavior from prior to med order, but remains floridly psychotic. continue current mgmt. 01/16/2023: No changes to current plan 01/17: more compliant with tegretol in recent days, still getting haldol IM. no change in presentation. continue current mgmt. 01/18: remains psychotic, labile. increase tegretol to 300 mg BID. 01/19: continues more aggressive and labile today. increase haldol to 10 BID with back-up IM of 7.5 mg. 01/20: more calm today,periods of agitation, however, in the past 24H. continue current mgmt. declines to change scheduled haldol to thorazine (proposed by MD in the hope he would in order to spare him the IMs). 01/21 continue tx. 01/22 writing for thorazine at bed- mr x1 and check ekg given other antipsychotics on board 01/23 agreed to ekg today, added 1pm dose of 5mg haldol 01/24: taking meds PO, still suffering from AH, possibly VH. perhaps trending more calm, but clearly still periods of agitation in the past several days. 01/25: labile, paranoid delusions. informed staff he experiences AH, mumbles recently. increase tegretol to 400 BID, make IR formulation as he has been chewing the pills. 01/26: more calm today. continue current mgmt. 01/27: continues more calm. some staff concerned for akathisia due to pacing and number of PRNs taken, but appears to be doing less walking than he had been before, does not appear restless or uncomfortable. continue current mgmt, check tegretol level 2 weeks after dose change (02/08). 01/28: stable presentation. intermittent sleep disturbance. continue current mgmt. 01/29: Continue current management. Benadryl for allergies 01/30: Continue current plan of care. 01/31: continues to ask for lots of PRNs. no change in presentation. 01/28 mild anemia and hyponatremia; trend. tegretol level 10.3. 02/01: series of abnormal and dynamic EKGs; today's WNL. cardiology consult requested for opinion. will start lithium pending cards opinion re EKG series. no change in presentation. 02/02: appreciate cardiology consultation and opinion. echocardiogram ordered. lithium started. appears better able to tolerate longer interaction today. 02/03: improved ability to tolerate social engagements continues. feels lithium has been helpful. akathisia likely. decrease haldol 02/10/10 to 5 BID and add thorazine 25 BID at 0900 and 1300. 02/04: clear uptick in psychotic.manic behavior yesterday after haldol dose decrease. eloped today. increase thorazine to 100/100/200 with PRNS available. 02/05: no concerning behaviors since elopement yesterday. refused PO haldol last night, otherwise med compliant. 02/06: med-compliant, no concerning behaviors. continue current mgmt. 02/07: check BMP along with lithium level. stable presentation. 02/08: CBC/BMP not concerning. lithium 0.6, tegretol 9.0. increase lithium dosing from 600 BID to 600/900 as of tonight. DC haldol entirely out of concerns for akathisia. invega not a great option due to tegretol interaction. start prolixin PO with IM back-up as alternative neuroleptic to haldol. 02/09: Continue current tx plan. 02/10: increase prolixin from 5 BID to 5 TID. otherwise continue current mgmt. 02/11: continue current mgmt. check labs jeferson of 02/13. 02/12: Continue current plan. Check labs in AM. 02/13: Continue current treatment plan. Li level 0.68, CMZ level 8.6 02/14: Continue current regimen and plans 02/15: increase lithium to 750/900. T/C increasing tegretol in near future as well. gradually seems to be improving. 02/16: stable. continue current mgmt. has broached feeling depressed the past couple of days. 02/17: Continue current tx plan. 02/18: check labs in several days. stable, Sx much improved from prior but still clearly psychotic. 02/20: no changes 02/21: continue current mgmt. check labs soon. still psychotic, endorsing AH. 02/22: no change in presentation. check lithium and tegretol levels tomorrow. 02/23: tegretol 8.3, lithium 0.96. increase tegretol from 400 BID to 400/600 as of tonight. c/o restlessness, concern for akathisia. will review neuroleptics regimen if Sx do not improve in next several days (as might be the case if his restlessness is residual dante). also, AH continue. 02/24: stable. continue current mgmt. assess Sx over next week, then check tegretol level. 02/25: better related, discussed his post-discharge plans. family meeting late next week. continue current regimen, check labs around 03/02. Reason for continued inpatient stay Substantial Risk for: harm to self, inability to function and rapid decompensation Time Spent With Patient Time: Total time managing care of this patient today __25__ minutes.
[2023-02-25] MEDS: diphenhydrAMINE HCL 25 MG CAPSULE 50 MG PO ×2 (16:06→22:31)
[2023-02-25 19:25] VITALS: BP 118/77; PULSE 87; RESP 18; TEMP 36.7; O2SAT 97
[2023-02-25] MEDS: Acetaminophen 325 MG TABLET 650 MG PO (20:13)
[2023-02-25] MEDS: carBAMazepine ER 200 MG TAB.ER.12H 600 MG PO (20:48)
[2023-02-25] MEDS: Lithium Carbonate ER 450 MG TABLET.ER 900 MG PO (20:49)
[2023-02-25] MEDS: chlorproMAZINE HCl 100 MG TABLET 200 MG PO (20:49)
[2023-02-26 09:20] VITALS: BP 126/72; PULSE 86; RESP 16; TEMP 36.3; O2SAT 99
[2023-02-26] MEDS: carBAMazepine 200 MG TABLET 400 MG PO (09:23)
[2023-02-26] MEDS: fluPHENAZine HCl 5 MG TABLET PO ×3 (09:23→20:21)
[2023-02-26] MEDS: Lithium Carbonate ER 300 MG TABLET.ER PO (09:23)
[2023-02-26] MEDS: Folic Acid 1 MG TABLET PO (09:23)
[2023-02-26] MEDS: Lithium Carbonate ER 450 MG TABLET.ER PO (09:24)
[2023-02-26] MEDS: chlorproMAZINE HCl 100 MG TABLET PO ×3 (09:24→19:15)
[2023-02-26] MEDS: Thiamine HCL 100 MG TABLET PO (09:24)
[2023-02-26] MEDS: Benztropine Mesylate 1 MG TABLET PO ×2 (09:24→20:22)
--- NOTE | 2023-02-26 10:24 | HO.PSYCHPN ---
Subjective Subjective Date of Service: 02/26/23 Reason For Visit: Psychosis Interim History: Patient was come and cooperative when seen pleasant no significant complaints Mental Status Exam Mental Status Exam Narrative: Patient casually dressed well groomed generally pacing up and down the hallway pleasant on approach no complaints future oriented Diagnostics Vital Signs (24Hr): Vital Signs - 24 hr 02/25/23 19:25 Temperature 98.0 F Pulse Rate 87 Respiratory Rate 18 Blood Pressure 118/77 Pulse Oximetry 97 Oxygen Delivery Method Room Air BMI result Body Mass Index 28.7 Labs 02/23/23 08:41 02/23/23 08:41 Medications Medications Current Medications Acetaminophen (Acetaminophen 325 Mg Tablet) 650 mg PO Q6H PRN PRN Reason: Headache/Pain Mild Scale (1-3) Last Admin: 02/25/23 20:13 Dose: 650 mg Al Hydroxide/Mg Hydroxide (Magnesium Hydrox/Alum Hydrox 30 Ml Oral.Susp) 30 ml PO Q6H PRN PRN Reason: Heartburn/Nausea Last Admin: 01/29/23 22:57 Dose: 30 ml Benzocaine (Throat Lozenge, Medicated Lozenge) 1 lozenge MUCOUS MEM Q2H PRN PRN Reason: Sore Throat Last Admin: 02/07/23 21:47 Dose: 1 lozenge Benztropine Mesylate (Benztropine Mesylate 1 Mg Tablet) 1 mg PO BID [facility] Last Admin: 02/26/23 09:24 Dose: 1 mg Carbamazepine (Carbamazepine 200 Mg Tablet) 400 mg PO DAILY [facility] Last Admin: 02/26/23 09:23 Dose: 400 mg Carbamazepine (Carbamazepine Er 200 Mg Tab.Er.12h) 600 mg PO BEDTIME [facility] Last Admin: 02/25/23 20:48 Dose: 600 mg Chlorpromazine HCl (Chlorpromazine Hcl 100 Mg Tablet) 200 mg PO BEDTIME [facility] Last Admin: 02/25/23 20:49 Dose: 200 mg Chlorpromazine HCl (Chlorpromazine Hcl 100 Mg Tablet) 100 mg PO BID@0900,1300 [facility] Last Admin: 02/26/23 09:24 Dose: 100 mg Chlorpromazine HCl (Chlorpromazine Hcl 100 Mg Tablet) 100 mg PO Q4H PRN PRN Reason: agitation/anxiety Last Admin: 02/24/23 18:51 Dose: 100 mg Clonidine HCl (Clonidine Hcl 0.1 Mg Tablet) 0.1 mg PO Q2H PRN; Protocol PRN Reason: agitation/signs of opioid withdrawal Last Admin: 02/15/23 19:47 Dose: 0.1 mg Diphenhydramine HCl (Diphenhydramine Hcl 25 Mg Capsule) 50 mg PO Q6H PRN PRN Reason: Allergic Symptoms Last Admin: 02/25/23 22:31 Dose: 50 mg Fluphenazine HCl (Fluphenazine Hcl 5 Mg Tablet) 5 mg PO TID [facility] Last Admin: 02/26/23 09:23 Dose: 5 mg Fluphenazine HCl (Fluphenazine Hcl 2.5 Mg/Ml 10 Ml Vial) 5 mg IM TID PRN PRN Reason: refusal of PO fluphenazine Folic Acid (Folic Acid 1 Mg Tablet) 1 mg PO DAILY [facility] Last Admin: 02/26/23 09:23 Dose: 1 mg [place] Carbonate ([place] Carbonate Er 450 Mg Tablet.Er) 900 mg PO BEDTIME [facility] Last Admin: 02/25/23 20:49 Dose: 900 mg [place] Carbonate ([place] Carbonate Er 300 Mg Tablet.Er) 300 mg PO DAILY [facility] Last Admin: 02/26/23 09:23 Dose: 300 mg [place] Carbonate ([place] Carbonate Er 450 Mg Tablet.Er) 450 mg PO DAILY [facility] Last Admin: 02/26/23 09:24 Dose: 450 mg Magnesium Hydroxide (Milk Of Magnesia 30 Ml Oral.Susp) 30 ml PO DAILY PRN PRN Reason: Constipation Multi-Ingred Cream/Lotion/Oil/Oint (Mineral Oil/Petrolatum,White 106 Gm Tube) 1 appl TOPICAL BID [facility]; Protocol Last Admin: 02/26/23 09:26 Dose: Not Given Nicotine (Nicotine 21 Mg Patch.Td24) 21 mg TRANSDERMA DAILY PRN PRN Reason: smoking cessation Last Admin: 01/15/23 16:06 Dose: 21 mg Nicotine Polacrilex (Nicotine Polacrilex 2 Mg Gum) 4 mg BUCCAL Q2H PRN PRN Reason: nicotine cravings Last Admin: 02/09/23 11:45 Dose: 4 mg Ondansetron HCl (Ondansetron Odt 4 Mg Tab.Rapdis) 4 mg TRANSLINGU Q6H PRN PRN Reason: Nausea and Vomiting Last Admin: 01/28/23 14:44 Dose: 4 mg Thiamine HCl (Thiamine Hcl 100 Mg Tablet) 100 mg PO DAILY [facility] Last Admin: 02/26/23 09:24 Dose: 100 mg Trazodone HCl (Trazodone Hcl 50 Mg Tablet) 50 mg PO BEDTIME MRX1 PRN PRN Reason: Insomnia Last Admin: 02/12/23 20:55 Dose: 50 mg Allergies Allergies Allergy/AdvReac Type Severity Reaction Status Date / Time morphine [MORPHINE] AdvReac Unknown NAUSEA Verified 12/10/22 19:56 Assessment & Plan Assessment & Plan (1) Nonspecific ST-T wave electrocardiographic changes: Status: Acute Code(s): R94.31 - Abnormal electrocardiogram [ECG] [EKG] (2) Cocaine use disorder: Status: Acute Code(s): F14.10 - Cocaine abuse, uncomplicated (3) Schizoaffective disorder, bipolar type: Status: Acute Code(s): F25.0 - Schizoaffective disorder, bipolar type (4) Opioid use disorder: Status: Acute Code(s): F11.90 - Opioid use, unspecified, uncomplicated Plan 12/24: attempt to give anti-psychotics. comfort meds for opioid and cocaine withdrawal. 12/25: refusing medications. period of agitation last night slamming doors and yelling (presumably @). continue current mgmt. 12/26: refusing meds. binging and purging. floridly psychotic. 12/27: had meds last night for sleep, per his request. schedule all haldol tonight with ativan and cogentin. a bit more interactive today, remains delayed and distracted. no binging/purging behaviors or agitated behaviors described by RN report today. 12/28: refused meds last night. Today asks for meds for sx mgt- aggressive today-threw two coffee cups. Begin Depakote 250 mg bid. 12/29: got multiple meds last NOC and overnight per his request. slept 2 hours. refusing meds this morning. commitment paperwork completed. 3-day notice expires tomorrow. c/o opioid craving, asked for methadone. methadone 30 mg daily started today. 12/30: filed for commitment today. haldol and ativan per his request last night. appears in disbelief that he will not be discharged today. 12/31: demanding to leave, getting agitated, banging on nursing station, slamming doors in his room. given IMs x 2, haldol 10 ativan 2 benadryl 50 for first and thorazine 100 for second. 01/01: Remains unpredictable and irritable. Refusing scheduled medications. Section 7/8 filed. 01/02: Continue current management. 01/03: refusing meds. irritable, labile. periods of agitation. continue current mgmt, awaiting hearing for . 01/04: refusing meds. irritable, labile. periods of agitation. continue current mgmt, though pt is refusing meds. 01/05: thought-blocked. denies mental illness or need for medications. offer medications. hearing tomorrow. 01/06: committed and ordered medications at hearing. 06/12/20 [facility] DC summary reviewd, pt was discharged on VPA, zyprexa, haldol. 03/14/20 DC summary reviewed, pt discharged on zyprexa, haldol. pt unable to comprehend result, agitated not to be leaving today. 01/07: copy of court order on unit, will order meds accordingly today. no change in presentation. 01/08: Continue current regimen and plans 01/09: Continue current plans and regimen. Discontinue contingent IM Ativan if Depakote refused 01/10: Continue current regimen and plans. 01/11: DC VPA, start tegretol per pt preference. ativan 2 mg IM for refusal of tegretol. continue haldol PO/IM orders. improved from last week. less agitated, a bit more organized and engaging. 01/12: appears more disorganized again today, trouble engaging. refused PO meds last night but did take tegretol PO this morning. 01/13: continues disorganized, difficulty expressing himself. refusing PO meds since yesterday morning. slept 10 hours last night, however 01/14: intermittently taking meds PO versus IM. improved behavior from prior to med order, but remains floridly psychotic. continue current mgmt. 01/16/2023: No changes to current plan 01/17: more compliant with tegretol in recent days, still getting haldol IM. no change in presentation. continue current mgmt. 01/18: remains psychotic, labile. increase tegretol to 300 mg BID. 01/19: continues more aggressive and labile today. increase haldol to 10 BID with back-up IM of 7.5 mg. 01/20: more calm today,periods of agitation, however, in the past 24H. continue current mgmt. declines to change scheduled haldol to thorazine (proposed by in the hope he would in order to spare him the IMs). 01/21 continue tx. 01/22 writing for thorazine at bed- mr x1 and check ekg given other antipsychotics on board 01/23 agreed to ekg today, added 1pm dose of 5mg haldol 01/24: taking meds PO, still suffering from AH, possibly VH. perhaps trending more calm, but clearly still periods of agitation in the past several days. 01/25: labile, paranoid delusions. informed staff he experiences AH, mumbles recently. increase tegretol to 400 BID, make IR formulation as he has been chewing the pills. 01/26: more calm today. continue current mgmt. 01/27: continues more calm. some staff concerned for akathisia due to pacing and number of PRNs taken, but appears to be doing less walking than he had been before, does not appear restless or uncomfortable. continue current mgmt, check tegretol level 2 weeks after dose change (02/08). 01/28: stable presentation. intermittent sleep disturbance. continue current mgmt. 01/29: Continue current management. Benadryl for allergies 01/30: Continue current plan of care. 01/31: continues to ask for lots of PRNs. no change in presentation. 01/28 mild anemia and hyponatremia; trend. tegretol level 10.3. 02/01: series of abnormal and dynamic EKGs; today's WNL. cardiology consult requested for opinion. will start lithium pending cards opinion re EKG series. no change in presentation. 02/02: appreciate cardiology consultation and opinion. echocardiogram ordered. lithium started. appears better able to tolerate longer interaction today. 02/03: improved ability to tolerate social engagements continues. feels lithium has been helpful. akathisia likely. decrease haldol 02/10/10 to 5 BID and add thorazine 25 BID at 0900 and 1300. 02/04: clear uptick in psychotic.manic behavior yesterday after haldol dose decrease. eloped today. increase thorazine to 100/100/200 with PRNS available. 02/05: no concerning behaviors since elopement yesterday. refused PO haldol last night, otherwise med compliant. 02/06: med-compliant, no concerning behaviors. continue current mgmt. 02/07: check BMP along with lithium level. stable presentation. 02/08: CBC/BMP not concerning. lithium 0.6, tegretol 9.0. increase lithium dosing from 600 BID to 600/900 as of tonight. DC haldol entirely out of concerns for akathisia. invega not a great option due to tegretol interaction. start prolixin PO with IM back-up as alternative neuroleptic to haldol. 02/09: Continue current tx plan. 02/10: increase prolixin from 5 BID to 5 TID. otherwise continue current mgmt. 02/11: continue current mgmt. check labs jeferson of 02/13. 02/12: Continue current plan. Check labs in AM. 02/13: Continue current treatment plan. Li level 0.68, CMZ level 8.6 02/14: Continue current regimen and plans 02/15: increase lithium to 750/900. T/C increasing tegretol in near future as well. gradually seems to be improving. 02/16: stable. continue current mgmt. has broached feeling depressed the past couple of days. 02/17: Continue current tx plan. 02/18: check labs in several days. stable, Sx much improved from prior but still clearly psychotic. 02/20: no changes 02/21: continue current mgmt. check labs soon. still psychotic, endorsing . 02/22: no change in presentation. check lithium and tegretol levels tomorrow. 02/23: tegretol 8.3, lithium 0.96. increase tegretol from 400 BID to 400/600 as of tonight. c/o restlessness, concern for akathisia. will review neuroleptics regimen if Sx do not improve in next several days (as might be the case if his restlessness is residual dante). also, AH continue. 02/24: stable. continue current mgmt. assess Sx over next week, then check tegretol level. 02/25: better related, discussed his post-discharge plans. family meeting late next week. continue current regimen, check labs around 03/02. 02/26/2023 Continue plan of care discharge planning Reason for continued inpatient stay Substantial Risk for: rapid decompensation Time Spent With Patient Time: Total time managing care of this patient today ____ minutes.
[2023-02-26 20:15] VITALS: BP 128/69; PULSE 97; RESP 16; TEMP 36.6; O2SAT 96
[2023-02-26] MEDS: carBAMazepine ER 200 MG TAB.ER.12H 600 MG PO (20:19)
[2023-02-26] MEDS: Lithium Carbonate ER 450 MG TABLET.ER 900 MG PO (20:20)
[2023-02-26] MEDS: chlorproMAZINE HCl 100 MG TABLET 200 MG PO (20:21)
[2023-02-27 08:00] VITALS: BP 121/58; PULSE 89; RESP 16; O2SAT 99
[2023-02-27] MEDS: Lithium Carbonate ER 450 MG TABLET.ER PO (09:21)
[2023-02-27] MEDS: Benztropine Mesylate 1 MG TABLET PO ×2 (09:21→20:33)
[2023-02-27] MEDS: Folic Acid 1 MG TABLET PO (09:21)
[2023-02-27] MEDS: Lithium Carbonate ER 300 MG TABLET.ER PO (09:21)
[2023-02-27] MEDS: fluPHENAZine HCl 5 MG TABLET PO ×3 (09:21→20:32)
[2023-02-27] MEDS: chlorproMAZINE HCl 100 MG TABLET PO ×4 (09:21→20:44)
[2023-02-27] MEDS: Thiamine HCL 100 MG TABLET PO (09:22)
[2023-02-27] MEDS: carBAMazepine 200 MG TABLET 400 MG PO (09:22)
[2023-02-27] MEDS: diphenhydrAMINE HCL 25 MG CAPSULE 50 MG PO (10:26)
[2023-02-27] MEDS: chlorproMAZINE HCl 100 MG TABLET 200 MG PO (20:31)
[2023-02-27] MEDS: carBAMazepine ER 200 MG TAB.ER.12H 600 MG PO (20:31)
[2023-02-27] MEDS: Lithium Carbonate ER 450 MG TABLET.ER 900 MG PO (20:32)
[2023-02-27 20:33] VITALS: BP 120/70; PULSE 86; RESP 16; TEMP 36.7; O2SAT 98
--- NOTE | 2023-02-27 22:31 | HO.PSYCHPN ---
Subjective Subjective Date of Service: 02/27/23 Reason For Visit: Psychosis Subjective Notes: Conditional Voluntary Healthcare Proxy: Yes Interim History: Patient continues to be pleasant future oriented not overtly psychotic Mental Status Exam Mental Status Exam Narrative: Patient casually dressed well groomed generally pacing up and down the hallway pleasant on approach no complaints future oriented no behavioral problems Diagnostics Vital Signs (24Hr): Vital Signs - 24 hr 02/27/23 08:00 02/27/23 20:33 Temperature 98.0 F Pulse Rate 89 86 Respiratory Rate 16 16 Blood Pressure 121/58 L 120/70 Pulse Oximetry 99 98 Oxygen Delivery Method Room Air Room Air BMI result Body Mass Index 28.7 Labs 02/23/23 08:41 02/23/23 08:41 Medications Medications Current Medications Acetaminophen (Acetaminophen 325 Mg Tablet) 650 mg PO Q6H PRN PRN Reason: Headache/Pain Mild Scale (1-3) Last Admin: 02/25/23 20:13 Dose: 650 mg Al Hydroxide/Mg Hydroxide (Magnesium Hydrox/Alum Hydrox 30 Ml Oral.Susp) 30 ml PO Q6H PRN PRN Reason: Heartburn/Nausea Last Admin: 01/29/23 22:57 Dose: 30 ml Benzocaine (Throat Lozenge, Medicated Lozenge) 1 lozenge MUCOUS MEM Q2H PRN PRN Reason: Sore Throat Last Admin: 02/07/23 21:47 Dose: 1 lozenge Benztropine Mesylate (Benztropine Mesylate 1 Mg Tablet) 1 mg PO BID [facility] Last Admin: 02/27/23 20:33 Dose: 1 mg Carbamazepine (Carbamazepine 200 Mg Tablet) 400 mg PO DAILY [facility] Last Admin: 02/27/23 09:22 Dose: 400 mg Carbamazepine (Carbamazepine Er 200 Mg Tab.Er.12h) 600 mg PO BEDTIME [facility] Last Admin: 02/27/23 20:31 Dose: 600 mg Chlorpromazine HCl (Chlorpromazine Hcl 100 Mg Tablet) 200 mg PO BEDTIME [facility] Last Admin: 02/27/23 20:31 Dose: 200 mg Chlorpromazine HCl (Chlorpromazine Hcl 100 Mg Tablet) 100 mg PO BID@0900,1300 [facility] Last Admin: 02/27/23 13:42 Dose: 100 mg Chlorpromazine HCl (Chlorpromazine Hcl 100 Mg Tablet) 100 mg PO Q4H PRN PRN Reason: agitation/anxiety Last Admin: 02/27/23 20:44 Dose: 100 mg Clonidine HCl (Clonidine Hcl 0.1 Mg Tablet) 0.1 mg PO Q2H PRN; Protocol PRN Reason: agitation/signs of opioid withdrawal Last Admin: 02/15/23 19:47 Dose: 0.1 mg Diphenhydramine HCl (Diphenhydramine Hcl 25 Mg Capsule) 50 mg PO Q6H PRN PRN Reason: Allergic Symptoms Last Admin: 02/27/23 10:26 Dose: 50 mg Fluphenazine HCl (Fluphenazine Hcl 5 Mg Tablet) 5 mg PO TID [facility] Last Admin: 02/27/23 20:32 Dose: 5 mg Fluphenazine HCl (Fluphenazine Hcl 2.5 Mg/Ml 10 Ml Vial) 5 mg IM TID PRN PRN Reason: refusal of PO fluphenazine Folic Acid (Folic Acid 1 Mg Tablet) 1 mg PO DAILY [facility] Last Admin: 02/27/23 09:21 Dose: 1 mg [place] Carbonate ([place] Carbonate Er 450 Mg Tablet.Er) 900 mg PO BEDTIME [facility] Last Admin: 02/27/23 20:32 Dose: 900 mg [place] Carbonate ([place] Carbonate Er 300 Mg Tablet.Er) 300 mg PO DAILY [facility] Last Admin: 02/27/23 09:21 Dose: 300 mg [place] Carbonate ([place] Carbonate Er 450 Mg Tablet.Er) 450 mg PO DAILY [facility] Last Admin: 02/27/23 09:21 Dose: 450 mg Magnesium Hydroxide (Milk Of Magnesia 30 Ml Oral.Susp) 30 ml PO DAILY PRN PRN Reason: Constipation Multi-Ingred Cream/Lotion/Oil/Oint (Mineral Oil/Petrolatum,White 106 Gm Tube) 1 appl TOPICAL BID [facility]; Protocol Last Admin: 02/27/23 22:29 Dose: Not Given Nicotine (Nicotine 21 Mg Patch.Td24) 21 mg TRANSDERMA DAILY PRN PRN Reason: smoking cessation Last Admin: 01/15/23 16:06 Dose: 21 mg Nicotine Polacrilex (Nicotine Polacrilex 2 Mg Gum) 4 mg BUCCAL Q2H PRN PRN Reason: nicotine cravings Last Admin: 02/09/23 11:45 Dose: 4 mg Ondansetron HCl (Ondansetron Odt 4 Mg Tab.Rapdis) 4 mg TRANSLINGU Q6H PRN PRN Reason: Nausea and Vomiting Last Admin: 01/28/23 14:44 Dose: 4 mg Thiamine HCl (Thiamine Hcl 100 Mg Tablet) 100 mg PO DAILY [facility] Last Admin: 02/27/23 09:22 Dose: 100 mg Trazodone HCl (Trazodone Hcl 50 Mg Tablet) 50 mg PO BEDTIME MRX1 PRN PRN Reason: Insomnia Last Admin: 02/12/23 20:55 Dose: 50 mg Allergies Allergies Allergy/AdvReac Type Severity Reaction Status Date / Time morphine [MORPHINE] AdvReac Unknown NAUSEA Verified 12/10/22 19:56 Assessment & Plan Assessment & Plan (1) Nonspecific ST-T wave electrocardiographic changes: Status: Acute Code(s): R94.31 - Abnormal electrocardiogram [ECG] [EKG] (2) Cocaine use disorder: Status: Acute Code(s): F14.10 - Cocaine abuse, uncomplicated (3) Schizoaffective disorder, bipolar type: Status: Acute Code(s): F25.0 - Schizoaffective disorder, bipolar type (4) Opioid use disorder: Status: Acute Code(s): F11.90 - Opioid use, unspecified, uncomplicated Plan 12/24: attempt to give anti-psychotics. comfort meds for opioid and cocaine withdrawal. 12/25: refusing medications. period of agitation last night slamming doors and yelling (presumably @). continue current mgmt. 12/26: refusing meds. binging and purging. floridly psychotic. 12/27: had meds last night for sleep, per his request. schedule all haldol tonight with ativan and cogentin. a bit more interactive today, remains delayed and distracted. no binging/purging behaviors or agitated behaviors described by RN report today. 12/28: refused meds last night. Today asks for meds for sx mgt- aggressive today-threw two coffee cups. Begin Depakote 250 mg bid. 12/29: got multiple meds last NOC and overnight per his request. slept 2 hours. refusing meds this morning. commitment paperwork completed. 3-day notice expires tomorrow. c/o opioid craving, asked for methadone. methadone 30 mg daily started today. 12/30: filed for commitment today. haldol and ativan per his request last night. appears in disbelief that he will not be discharged today. 12/31: demanding to leave, getting agitated, banging on nursing station, slamming doors in his room. given IMs x 2, haldol 10 ativan 2 benadryl 50 for first and thorazine 100 for second. 01/01: Remains unpredictable and irritable. Refusing scheduled medications. Section 7/ filed. 01/02: Continue current management. 01/03: refusing meds. irritable, labile. periods of agitation. continue current mgmt, awaiting hearing for . 01/04: refusing meds. irritable, labile. periods of agitation. continue current mgmt, though pt is refusing meds. 01/05: thought-blocked. denies mental illness or need for medications. offer medications. hearing tomorrow. 01/06: committed and ordered medications at hearing. 06/12/20 [facility] [place] DC summary reviewd, pt was discharged on VPA, zyprexa, haldol. 03/14/20 DC summary reviewed, pt discharged on zyprexa, haldol. pt unable to comprehend result, agitated not to be leaving today. 01/07: copy of court order on unit, will order meds accordingly today. no change in presentation. 01/08: Continue current regimen and plans 01/09: Continue current plans and regimen. Discontinue contingent IM Ativan if Depakote refused 01/10: Continue current regimen and plans. 01/11: DC VPA, start tegretol per pt preference. ativan 2 mg IM for refusal of tegretol. continue haldol PO/IM orders. improved from last week. less agitated, a bit more organized and engaging. 01/12: appears more disorganized again today, trouble engaging. refused PO meds last night but did take tegretol PO this morning. 01/13: continues disorganized, difficulty expressing himself. refusing PO meds since yesterday morning. slept 10 hours last night, however 01/14: intermittently taking meds PO versus IM. improved behavior from prior to med order, but remains floridly psychotic. continue current mgmt. 01/16/2023: No changes to current plan 01/17: more compliant with tegretol in recent days, still getting haldol IM. no change in presentation. continue current mgmt. 01/18: remains psychotic, labile. increase tegretol to 300 mg BID. 01/19: continues more aggressive and labile today. increase haldol to 10 BID with back-up IM of 7.5 mg. 01/20: more calm today,periods of agitation, however, in the past 24H. continue current mgmt. declines to change scheduled haldol to thorazine (proposed by MD in the hope he would in order to spare him the IMs). 01/21 continue tx. 01/22 writing for thorazine at bed- mr x1 and check ekg given other antipsychotics on board 01/23 agreed to ekg today, added 1pm dose of 5mg haldol 01/24: taking meds PO, still suffering from AH, possibly VH. perhaps trending more calm, but clearly still periods of agitation in the past several days. 01/25: labile, paranoid delusions. informed staff he experiences AH, mumbles recently. increase tegretol to 400 BID, make IR formulation as he has been chewing the pills. 01/26: more calm today. continue current mgmt. 01/27: continues more calm. some staff concerned for akathisia due to pacing and number of PRNs taken, but appears to be doing less walking than he had been before, does not appear restless or uncomfortable. continue current mgmt, check tegretol level 2 weeks after dose change (02/08). 01/28: stable presentation. intermittent sleep disturbance. continue current mgmt. 01/29: Continue current management. Benadryl for allergies 01/30: Continue current plan of care. 01/31: continues to ask for lots of PRNs. no change in presentation. 01/28 mild anemia and hyponatremia; trend. tegretol level 10.3. 02/01: series of abnormal and dynamic EKGs; today's WNL. cardiology consult requested for opinion. will start lithium pending cards opinion re EKG series. no change in presentation. 02/02: appreciate cardiology consultation and opinion. echocardiogram ordered. lithium started. appears better able to tolerate longer interaction today. 02/03: improved ability to tolerate social engagements continues. feels lithium has been helpful. akathisia likely. decrease haldol 02/10/10 to 5 BID and add thorazine 25 BID at 0900 and 1300. 02/04: clear uptick in psychotic.manic behavior yesterday after haldol dose decrease. eloped today. increase thorazine to 100/100/200 with PRNS available. 02/05: no concerning behaviors since elopement yesterday. refused PO haldol last night, otherwise med compliant. 02/06: med-compliant, no concerning behaviors. continue current mgmt. 02/07: check BMP along with lithium level. stable presentation. 02/08: CBC/BMP not concerning. lithium 0.6, tegretol 9.0. increase lithium dosing from 600 BID to 600/900 as of tonight. DC haldol entirely out of concerns for akathisia. invega not a great option due to tegretol interaction. start prolixin PO with IM back-up as alternative neuroleptic to haldol. 02/09: Continue current tx plan. 02/10: increase prolixin from 5 BID to 5 TID. otherwise continue current mgmt. 02/11: continue current mgmt. check labs jeferson of 02/13. 02/12: Continue current plan. Check labs in AM. 02/13: Continue current treatment plan. Li level 0.68, CMZ level 8.6 02/14: Continue current regimen and plans 02/15: increase lithium to 750/900. T/C increasing tegretol in near future as well. gradually seems to be improving. 02/16: stable. continue current mgmt. has broached feeling depressed the past couple of days. 02/17: Continue current tx plan. 02/18: check labs in several days. stable, Sx much improved from prior but still clearly psychotic. 02/20: no changes 02/21: continue current mgmt. check labs soon. still psychotic, endorsing . 02/22: no change in presentation. check lithium and tegretol levels tomorrow. 02/23: tegretol 8.3, lithium 0.96. increase tegretol from 400 BID to 400/600 as of tonight. c/o restlessness, concern for akathisia. will review neuroleptics regimen if Sx do not improve in next several days (as might be the case if his restlessness is residual dante). also, AH continue. 02/24: stable. continue current mgmt. assess Sx over next week, then check tegretol level. 02/25: better related, discussed his post-discharge plans. family meeting late next week. continue current regimen, check labs around 03/02. 02/26/2023 Continue plan of care discharge planning 02/27/2023 Patient can not continues much improved states he feels much better without drug use no psychosis Informed Consent: understands Reason for continued inpatient stay Substantial Risk for: inability to function and rapid decompensation Time Spent With Patient Time: Total time managing care of this patient today ____ minutes.
[2023-02-28 07:30] VITALS: BP 107/72; PULSE 83; RESP 16; TEMP 36.6; O2SAT 97
[2023-02-28] MEDS: Thiamine HCL 100 MG TABLET PO (08:40)
[2023-02-28] MEDS: chlorproMAZINE HCl 100 MG TABLET PO ×3 (08:40→12:58)
[2023-02-28] MEDS: fluPHENAZine HCl 5 MG TABLET PO ×2 (08:40→15:49)
[2023-02-28] MEDS: Lithium Carbonate ER 300 MG TABLET.ER PO (08:41)
[2023-02-28] MEDS: Folic Acid 1 MG TABLET PO (08:41)
[2023-02-28] MEDS: Benztropine Mesylate 1 MG TABLET PO ×2 (08:41→21:51)
[2023-02-28] MEDS: carBAMazepine 200 MG TABLET 400 MG PO (08:41)
[2023-02-28] MEDS: Lithium Carbonate ER 450 MG TABLET.ER PO (08:41)
--- NOTE | 2023-02-28 15:53 | P.PNPSI_ITS ---
Subjective Subjective Date of Service: 02/28/23 Reason For Visit: Psychosis Interim History: calm, cooperative. some delays in answers, then abruptly sits up and gets off bed, mutters a few things in swedish, and walks into his bathroom without looking at MD or saying anything to MD. per staff, brighter affect over the weekend. feels thorazine helpful for racing thoughts. +RIS. irritable around taking meds at at least one point over the weekend. sleeping well. Mental Status Exam Mental Status Exam Narrative: adequately dressed and groomed. lying in bed, awake. cooperative. linear, logical. guarded, vague. bizarrely ends interview and appears to be RIS. affect constricted, no SI/HI/VH expressed. denies AH but appears to be RIS. Diagnostics Vital Signs (24Hr): Vital Signs - 24 hr 02/27/23 20:33 02/28/23 07:30 Temperature 98.0 F 97.8 F Pulse Rate 86 83 Respiratory Rate 16 16 Blood Pressure 120/70 107/72 Pulse Oximetry 98 97 Oxygen Delivery Method Room Air Room Air BMI result Body Mass Index 28.7 Labs 02/23/23 08:41 02/23/23 08:41 Medications Medications Current Medications Acetaminophen (Acetaminophen 325 Mg Tablet) 650 mg PO Q6H PRN PRN Reason: Headache/Pain Mild Scale (1-3) Last Admin: 02/25/23 20:13 Dose: 650 mg Al Hydroxide/Mg Hydroxide (Magnesium Hydrox/Alum Hydrox 30 Ml Oral.Susp) 30 ml PO Q6H PRN PRN Reason: Heartburn/Nausea Last Admin: 01/29/23 22:57 Dose: 30 ml Benzocaine (Throat Lozenge, Medicated Lozenge) 1 lozenge MUCOUS MEM Q2H PRN PRN Reason: Sore Throat Last Admin: 02/07/23 21:47 Dose: 1 lozenge Benztropine Mesylate (Benztropine Mesylate 1 Mg Tablet) 1 mg PO BID [facility] Last Admin: 02/28/23 08:41 Dose: 1 mg Carbamazepine (Carbamazepine 200 Mg Tablet) 400 mg PO DAILY [facility] Last Admin: 02/28/23 08:41 Dose: 400 mg Carbamazepine (Carbamazepine Er 200 Mg Tab.Er.12h) 600 mg PO BEDTIME [facility] Last Admin: 02/27/23 20:31 Dose: 600 mg Chlorpromazine HCl (Chlorpromazine Hcl 100 Mg Tablet) 200 mg PO BEDTIME [facility] Last Admin: 02/27/23 20:31 Dose: 200 mg Chlorpromazine HCl (Chlorpromazine Hcl 100 Mg Tablet) 100 mg PO BID@0900,1300 [facility] Last Admin: 02/28/23 12:58 Dose: 100 mg Chlorpromazine HCl (Chlorpromazine Hcl 100 Mg Tablet) 100 mg PO Q4H PRN PRN Reason: agitation/anxiety Last Admin: 02/28/23 09:31 Dose: 100 mg Clonidine HCl (Clonidine Hcl 0.1 Mg Tablet) 0.1 mg PO Q2H PRN; Protocol PRN Reason: agitation/signs of opioid withdrawal Last Admin: 02/15/23 19:47 Dose: 0.1 mg Diphenhydramine HCl (Diphenhydramine Hcl 25 Mg Capsule) 50 mg PO Q6H PRN PRN Reason: Allergic Symptoms Last Admin: 02/27/23 10:26 Dose: 50 mg Fluphenazine HCl (Fluphenazine Hcl 5 Mg Tablet) 5 mg PO TID [facility] Last Admin: 02/28/23 15:49 Dose: 5 mg Fluphenazine HCl (Fluphenazine Hcl 2.5 Mg/Ml 10 Ml Vial) 5 mg IM TID PRN PRN Reason: refusal of PO fluphenazine Folic Acid (Folic Acid 1 Mg Tablet) 1 mg PO DAILY [facility] Last Admin: 02/28/23 08:41 Dose: 1 mg Boronda Carbonate (Boronda Carbonate Er 450 Mg Tablet.Er) 900 mg PO BEDTIME [facility] Last Admin: 02/27/23 20:32 Dose: 900 mg Boronda Carbonate (Boronda Carbonate Er 300 Mg Tablet.Er) 300 mg PO DAILY [facility] Last Admin: 02/28/23 08:41 Dose: 300 mg Boronda Carbonate (Boronda Carbonate Er 450 Mg Tablet.Er) 450 mg PO DAILY [facility] Last Admin: 02/28/23 08:41 Dose: 450 mg Magnesium Hydroxide (Milk Of Magnesia 30 Ml Oral.Susp) 30 ml PO DAILY PRN PRN Reason: Constipation Multi-Ingred Cream/Lotion/Oil/Oint (Mineral Oil/Petrolatum,White 106 Gm Tube) 1 appl TOPICAL BID [facility]; Protocol Last Admin: 02/28/23 08:41 Dose: Not Given Nicotine (Nicotine 21 Mg Patch.Td24) 21 mg TRANSDERMA DAILY PRN PRN Reason: smoking cessation Last Admin: 01/15/23 16:06 Dose: 21 mg Nicotine Polacrilex (Nicotine Polacrilex 2 Mg Gum) 4 mg BUCCAL Q2H PRN PRN Reason: nicotine cravings Last Admin: 02/09/23 11:45 Dose: 4 mg Ondansetron HCl (Ondansetron Odt 4 Mg Tab.Rapdis) 4 mg TRANSLINGU Q6H PRN PRN Reason: Nausea and Vomiting Last Admin: 01/28/23 14:44 Dose: 4 mg Thiamine HCl (Thiamine Hcl 100 Mg Tablet) 100 mg PO DAILY [facility] Last Admin: 02/28/23 08:40 Dose: 100 mg Trazodone HCl (Trazodone Hcl 50 Mg Tablet) 50 mg PO BEDTIME MRX1 PRN PRN Reason: Insomnia Last Admin: 02/12/23 20:55 Dose: 50 mg Allergies Allergies Allergy/AdvReac Type Severity Reaction Status Date / Time morphine [MORPHINE] AdvReac Unknown NAUSEA Verified 12/10/22 19:56 Assessment & Plan Assessment & Plan (1) Nonspecific ST-T wave electrocardiographic changes: Status: Acute Code(s): R94.31 - Abnormal electrocardiogram [ECG] [EKG] (2) Cocaine use disorder: Status: Acute Code(s): F14.10 - Cocaine abuse, uncomplicated (3) Schizoaffective disorder, bipolar type: Status: Acute Code(s): F25.0 - Schizoaffective disorder, bipolar type (4) Opioid use disorder: Status: Acute Code(s): F11.90 - Opioid use, unspecified, uncomplicated Plan 12/24: attempt to give anti-psychotics. comfort meds for opioid and cocaine withdrawal. 12/25: refusing medications. period of agitation last night slamming doors and yelling (presumably @). continue current mgmt. 12/26: refusing meds. binging and purging. floridly psychotic. 12/27: had meds last night for sleep, per his request. schedule all haldol tonight with ativan and cogentin. a bit more interactive today, remains delayed and distracted. no binging/purging behaviors or agitated behaviors described by RN report today. 12/28: refused meds last night. Today asks for meds for sx mgt- aggressive today- threw two coffee cups. Begin Depakote 250 mg bid. 12/29: got multiple meds last NOC and overnight per his request. slept 2 hours. refusing meds this morning. commitment paperwork completed. 3-day notice expires tomorrow. c/o opioid craving, asked for methadone. methadone 30 mg daily started today. 12/30: filed for commitment today. haldol and ativan per his request last night. appears in disbelief that he will not be discharged today. 12/31: demanding to leave, getting agitated, banging on nursing station, slamming doors in his room. given IMs x 2, haldol 10 ativan 2 benadryl 50 for first and thorazine 100 for second. 01/01: Remains unpredictable and irritable. Refusing scheduled medications. Section 7/ filed. 01/02: Continue current management. 01/03: refusing meds. irritable, labile. periods of agitation. continue current mgmt, awaiting hearing for . 01/04: refusing meds. irritable, labile. periods of agitation. continue current mgmt, though pt is refusing meds. 01/05: thought-blocked. denies mental illness or need for medications. offer medications. hearing tomorrow. 01/06: committed and ordered medications at hearing. 06/12/20 [facility] [place], pt was discharged on VPA, zyprexa, haldol. 03/14/20 DC summary reviewed, pt discharged on zyprexa, haldol. pt unable to comprehend result, agitated not to be leaving today. 01/07: copy of court order on unit, will order meds accordingly today. no change in presentation. 01/08: Continue current regimen and plans 01/09: Continue current plans and regimen. Discontinue contingent IM Ativan if Depakote refused 01/10: Continue current regimen and plans. 01/11: DC VPA, start tegretol per pt preference. ativan 2 mg IM for refusal of tegretol. continue haldol PO/IM orders. improved from last week. less agitated, a bit more organized and engaging. 01/12: appears more disorganized again today, trouble engaging. refused PO meds last night but did take tegretol PO this morning. 01/13: continues disorganized, difficulty expressing himself. refusing PO meds since yesterday morning. slept 10 hours last night, however 01/14: intermittently taking meds PO versus IM. improved behavior from prior to med order, but remains floridly psychotic. continue current mgmt. 01/16/2023: No changes to current plan 01/17: more compliant with tegretol in recent days, still getting haldol IM. no change in presentation. continue current mgmt. 01/18: remains psychotic, labile. increase tegretol to 300 mg BID. 01/19: continues more aggressive and labile today. increase haldol to 10 BID with back-up IM of 7.5 mg. 01/20: more calm today,periods of agitation, however, in the past 24H. continue current mgmt. declines to change scheduled haldol to thorazine (proposed by MD in the hope he would in order to spare him the IMs). 01/21 continue tx. 01/22 writing for thorazine at bed- mr x1 and check ekg given other antipsychotics on board 01/23 agreed to ekg today, added 1pm dose of 5mg haldol 01/24: taking meds PO, still suffering from AH, possibly VH. perhaps trending more calm, but clearly still periods of agitation in the past several days. 01/25: labile, paranoid delusions. informed staff he experiences AH, mumbles recently. increase tegretol to 400 BID, make IR formulation as he has been chewing the pills. 01/26: more calm today. continue current mgmt. 01/27: continues more calm. some staff concerned for akathisia due to pacing and number of PRNs taken, but appears to be doing less walking than he had been before, does not appear restless or uncomfortable. continue current mgmt, check tegretol level 2 weeks after dose change (02/08). 01/28: stable presentation. intermittent sleep disturbance. continue current mgmt. 01/29: Continue current management. Benadryl for allergies 01/30: Continue current plan of care. 01/31: continues to ask for lots of PRNs. no change in presentation. 01/28 mild anemia and hyponatremia; trend. tegretol level 10.3. 02/01: series of abnormal and dynamic EKGs; today's WNL. cardiology consult requested for opinion. will start lithium pending cards opinion re EKG series. no change in presentation. 02/02: appreciate cardiology consultation and opinion. echocardiogram ordered. lithium started. appears better able to tolerate longer interaction today. 02/03: improved ability to tolerate social engagements continues. feels lithium has been helpful. akathisia likely. decrease haldol 02/10/10 to 5 BID and add thorazine 25 BID at 0900 and 1300. 02/04: clear uptick in psychotic.manic behavior yesterday after haldol dose decrease. eloped today. increase thorazine to 100/100/200 with PRNS available. 02/05: no concerning behaviors since elopement yesterday. refused PO haldol last night, otherwise med compliant. 02/06: med-compliant, no concerning behaviors. continue current mgmt. 02/07: check BMP along with lithium level. stable presentation. 02/08: CBC/BMP not concerning. lithium 0.6, tegretol 9.0. increase lithium dosing from 600 BID to 600/900 as of tonsohail. DC haldol entirely out of concerns for akathisia. invega not a great option due to tegretol interaction. start prolixin PO with IM back-up as alternative neuroleptic to haldol. 02/09: Continue current tx plan. 02/10: increase prolixin from 5 BID to 5 TID. otherwise continue current mgmt. 02/11: continue current mgmt. check labs jeferson of 02/13. 02/12: Continue current plan. Check labs in AM. 02/13: Continue current treatment plan. Li level 0.68, CMZ level 8.6 02/14: Continue current regimen and plans 02/15: increase lithium to 750/900. T/C increasing tegretol in near future as well. gradually seems to be improving. 02/16: stable. continue current mgmt. has broached feeling depressed the past couple of days. 02/17: Continue current tx plan. 02/18: check labs in several days. stable, Sx much improved from prior but still clearly psychotic. 02/20: no changes 02/21: continue current mgmt. check labs soon. still psychotic, endorsing AH. 02/22: no change in presentation. check lithium and tegretol levels tomorrow. 02/23: tegretol 8.3, lithium 0.96. increase tegretol from 400 BID to 400/600 as of tonight. c/o restlessness, concern for akathisia. will review neuroleptics regimen if Sx do not improve in next several days (as might be the case if his restlessness is residual dante). also, AH continue. 02/24: stable. continue current mgmt. assess Sx over next week, then check tegretol level. 02/25: better related, discussed his post-discharge plans. family meeting late next week. continue current regimen, check labs around 03/02. 02/26: Continue plan of care discharge planning 02/27: Patient can not continues much improved states he feels much better without drug use no psychosis. 02/28: +RIS, bizarrely ends interview with MD by just getting up and walking away without a look or a word. increase prolixin 5 TID to 7.5 TID for psychosis. otherwise continue current mgmt. Reason for continued inpatient stay Substantial Risk for: harm to self, inability to function and rapid decompensation Time Spent With Patient Time: Total time managing care of this patient today __25__ minutes.
[2023-02-28] MEDS: diphenhydrAMINE HCL 25 MG CAPSULE 50 MG PO (20:32)
[2023-02-28 20:36] VITALS: BP 129/76; PULSE 92; RESP 18; TEMP 36.6; O2SAT 98
[2023-02-28] MEDS: fluPHENAZine HCl 2.5 MG TABLET 7.5 MG PO (21:50)
[2023-02-28] MEDS: Lithium Carbonate ER 450 MG TABLET.ER 900 MG PO (21:50)
[2023-02-28] MEDS: chlorproMAZINE HCl 100 MG TABLET 200 MG PO (21:50)
[2023-02-28] MEDS: carBAMazepine ER 200 MG TAB.ER.12H 600 MG PO (21:51)
[2023-03-01] MEDS: Benztropine Mesylate 1 MG TABLET PO ×2 (08:26→21:30)
[2023-03-01] MEDS: carBAMazepine 200 MG TABLET 400 MG PO (08:26)
[2023-03-01] MEDS: fluPHENAZine HCl 2.5 MG TABLET 7.5 MG PO ×3 (08:26→21:29)
[2023-03-01] MEDS: Lithium Carbonate ER 300 MG TABLET.ER PO (08:26)
[2023-03-01] MEDS: Folic Acid 1 MG TABLET PO (08:26)
[2023-03-01] MEDS: Lithium Carbonate ER 450 MG TABLET.ER PO (08:26)
[2023-03-01] MEDS: Thiamine HCL 100 MG TABLET PO (08:26)
[2023-03-01] MEDS: chlorproMAZINE HCl 100 MG TABLET PO ×3 (08:26→19:05)
[2023-03-01 08:56] VITALS: BP 131/72; PULSE 80; RESP 16; TEMP 36.5; O2SAT 98
--- NOTE | 2023-03-01 15:05 | HO.PSYCHPN ---
Subjective Subjective Date of Service: 03/01/23 Reason For Visit: Psychosis Interim History: in bed, says he is tired, declines to get up, denies any complaints or concerns. per staff, no changes. declined [facility] services today. Mental Status Exam Mental Status Exam Narrative: lying in bed, awake. cooperative. linear, logical. guarded. no SI/HI/AVH expressed. Diagnostics Vital Signs (24Hr): Vital Signs - 24 hr 02/28/23 20:36 03/01/23 08:56 Temperature 97.9 F 97.7 F Pulse Rate 92 80 Respiratory Rate 18 16 Blood Pressure 129/76 131/72 Pulse Oximetry 98 98 Oxygen Delivery Method Room Air Room Air BMI result Body Mass Index 28.7 Labs 02/23/23 08:41 02/23/23 08:41 Medications Medications Current Medications Acetaminophen (Acetaminophen 325 Mg Tablet) 650 mg PO Q6H PRN PRN Reason: Headache/Pain Mild Scale (1-3) Last Admin: 02/25/23 20:13 Dose: 650 mg Al Hydroxide/Mg Hydroxide (Magnesium Hydrox/Alum Hydrox 30 Ml Oral.Susp) 30 ml PO Q6H PRN PRN Reason: Heartburn/Nausea Last Admin: 01/29/23 22:57 Dose: 30 ml Benzocaine (Throat Lozenge, Medicated Lozenge) 1 lozenge MUCOUS MEM Q2H PRN PRN Reason: Sore Throat Last Admin: 02/07/23 21:47 Dose: 1 lozenge Benztropine Mesylate (Benztropine Mesylate 1 Mg Tablet) 1 mg PO BID [facility] Last Admin: 03/01/23 08:26 Dose: 1 mg Carbamazepine (Carbamazepine 200 Mg Tablet) 400 mg PO DAILY [facility] Last Admin: 03/01/23 08:26 Dose: 400 mg Carbamazepine (Carbamazepine Er 200 Mg Tab.Er.12h) 600 mg PO BEDTIME [facility] Last Admin: 02/28/23 21:51 Dose: 600 mg Chlorpromazine HCl (Chlorpromazine Hcl 100 Mg Tablet) 200 mg PO BEDTIME [facility] Last Admin: 02/28/23 21:50 Dose: 200 mg Chlorpromazine HCl (Chlorpromazine Hcl 100 Mg Tablet) 100 mg PO BID@0900,1300 [facility] Last Admin: 03/01/23 14:05 Dose: 100 mg Chlorpromazine HCl (Chlorpromazine Hcl 100 Mg Tablet) 100 mg PO Q4H PRN PRN Reason: agitation/anxiety Last Admin: 02/28/23 09:31 Dose: 100 mg Clonidine HCl (Clonidine Hcl 0.1 Mg Tablet) 0.1 mg PO Q2H PRN; Protocol PRN Reason: agitation/signs of opioid withdrawal Last Admin: 02/15/23 19:47 Dose: 0.1 mg Diphenhydramine HCl (Diphenhydramine Hcl 25 Mg Capsule) 50 mg PO Q6H PRN PRN Reason: Allergic Symptoms Last Admin: 02/28/23 20:32 Dose: 50 mg Fluphenazine HCl (Fluphenazine Hcl 2.5 Mg/Ml 10 Ml Vial) 5 mg IM TID PRN PRN Reason: refusal of PO fluphenazine Fluphenazine HCl (Fluphenazine Hcl 2.5 Mg Tablet) 7.5 mg PO TID [facility] Last Admin: 03/01/23 14:04 Dose: 7.5 mg Folic Acid (Folic Acid 1 Mg Tablet) 1 mg PO DAILY [facility] Last Admin: 03/01/23 08:26 Dose: 1 mg [place] Carbonate ([place] Carbonate Er 450 Mg Tablet.Er) 900 mg PO BEDTIME [facility] Last Admin: 02/28/23 21:50 Dose: 900 mg [place] Carbonate ([place] Carbonate Er 300 Mg Tablet.Er) 300 mg PO DAILY [facility] Last Admin: 03/01/23 08:26 Dose: 300 mg [place] Carbonate ([place] Carbonate Er 450 Mg Tablet.Er) 450 mg PO DAILY [facility] Last Admin: 03/01/23 08:26 Dose: 450 mg Magnesium Hydroxide (Milk Of Magnesia 30 Ml Oral.Susp) 30 ml PO DAILY PRN PRN Reason: Constipation Multi-Ingred Cream/Lotion/Oil/Oint (Mineral Oil/Petrolatum,White 106 Gm Tube) 1 appl TOPICAL BID [facility]; Protocol Last Admin: 03/01/23 08:28 Dose: Not Given Nicotine (Nicotine 21 Mg Patch.Td24) 21 mg TRANSDERMA DAILY PRN PRN Reason: smoking cessation Last Admin: 01/15/23 16:06 Dose: 21 mg Nicotine Polacrilex (Nicotine Polacrilex 2 Mg Gum) 4 mg BUCCAL Q2H PRN PRN Reason: nicotine cravings Last Admin: 02/09/23 11:45 Dose: 4 mg Ondansetron HCl (Ondansetron Odt 4 Mg Tab.Rapdis) 4 mg TRANSLINGU Q6H PRN PRN Reason: Nausea and Vomiting Last Admin: 01/28/23 14:44 Dose: 4 mg Thiamine HCl (Thiamine Hcl 100 Mg Tablet) 100 mg PO DAILY [facility] Last Admin: 03/01/23 08:26 Dose: 100 mg Trazodone HCl (Trazodone Hcl 50 Mg Tablet) 50 mg PO BEDTIME MRX1 PRN PRN Reason: Insomnia Last Admin: 02/12/23 20:55 Dose: 50 mg Allergies Allergies Allergy/AdvReac Type Severity Reaction Status Date / Time morphine [MORPHINE] AdvReac Unknown NAUSEA Verified 12/10/22 19:56 Assessment & Plan Assessment & Plan (1) Nonspecific ST-T wave electrocardiographic changes: Status: Acute Code(s): R94.31 - Abnormal electrocardiogram [ECG] [EKG] (2) Cocaine use disorder: Status: Acute Code(s): F14.10 - Cocaine abuse, uncomplicated (3) Schizoaffective disorder, bipolar type: Status: Acute Code(s): F25.0 - Schizoaffective disorder, bipolar type (4) Opioid use disorder: Status: Acute Code(s): F11.90 - Opioid use, unspecified, uncomplicated Plan 12/24: attempt to give anti-psychotics. comfort meds for opioid and cocaine withdrawal. 12/25: refusing medications. period of agitation last night slamming doors and yelling (presumably @). continue current mgmt. 12/26: refusing meds. binging and purging. floridly psychotic. 12/27: had meds last night for sleep, per his request. schedule all haldol tonight with ativan and cogentin. a bit more interactive today, remains delayed and distracted. no binging/purging behaviors or agitated behaviors described by RN report today. 12/28: refused meds last night. Today asks for meds for sx mgt- aggressive today-threw two coffee cups. Begin Depakote 250 mg bid. 12/29: got multiple meds last NOC and overnight per his request. slept 2 hours. refusing meds this morning. commitment paperwork completed. 3-day notice expires tomorrow. c/o opioid craving, asked for methadone. methadone 30 mg daily started today. 12/30: filed for commitment today. haldol and ativan per his request last night. appears in disbelief that he will not be discharged today. 12/31: demanding to leave, getting agitated, banging on nursing station, slamming doors in his room. given IMs x 2, haldol 10 ativan 2 benadryl 50 for first and thorazine 100 for second. 01/01: Remains unpredictable and irritable. Refusing scheduled medications. Section 7/ filed. 01/02: Continue current management. 01/03: refusing meds. irritable, labile. periods of agitation. continue current mgmt, awaiting hearing for . 01/04: refusing meds. irritable, labile. periods of agitation. continue current mgmt, though pt is refusing meds. 01/05: thought-blocked. denies mental illness or need for medications. offer medications. hearing tomorrow. 01/06: committed and ordered medications at hearing. 06/12/20 [facility] [place] summary reviewd, pt was discharged on VPA, zyprexa, haldol. 03/14/20 DC summary reviewed, pt discharged on zyprexa, haldol. pt unable to comprehend result, agitated not to be leaving today. 01/07: copy of court order on unit, will order meds accordingly today. no change in presentation. 01/08: Continue current regimen and plans 01/09: Continue current plans and regimen. Discontinue contingent IM Ativan if Depakote refused 01/10: Continue current regimen and plans. 01/11: DC VPA, start tegretol per pt preference. ativan 2 mg IM for refusal of tegretol. continue haldol PO/IM orders. improved from last week. less agitated, a bit more organized and engaging. 01/12: appears more disorganized again today, trouble engaging. refused PO meds last night but did take tegretol PO this morning. 01/13: continues disorganized, difficulty expressing himself. refusing PO meds since yesterday morning. slept 10 hours last night, however 01/14: intermittently taking meds PO versus IM. improved behavior from prior to med order, but remains floridly psychotic. continue current mgmt. 01/16/2023: No changes to current plan 9/11: more compliant with tegretol in recent days, still getting haldol IM. no change in presentation. continue current mgmt. 01/18: remains psychotic, labile. increase tegretol to 300 mg BID. 01/19: continues more aggressive and labile today. increase haldol to 10 BID with back-up IM of 7.5 mg. 01/20: more calm today,periods of agitation, however, in the past 24H. continue current mgmt. declines to change scheduled haldol to thorazine (proposed by MD in the hope he would in order to spare him the IMs). 01/21 continue tx. 01/22 writing for thorazine at bed- mr x1 and check ekg given other antipsychotics on board 01/23 agreed to ekg today, added 1pm dose of 5mg haldol 01/24: taking meds PO, still suffering from AH, possibly VH. perhaps trending more calm, but clearly still periods of agitation in the past several days. 01/25: labile, paranoid delusions. informed staff he experiences AH, mumbles recently. increase tegretol to 400 BID, make IR formulation as he has been chewing the pills. 01/26: more calm today. continue current mgmt. 01/27: continues more calm. some staff concerned for akathisia due to pacing and number of PRNs taken, but appears to be doing less walking than he had been before, does not appear restless or uncomfortable. continue current mgmt, check tegretol level 2 weeks after dose change (02/08). 01/28: stable presentation. intermittent sleep disturbance. continue current mgmt. 01/29: Continue current management. Benadryl for allergies 01/30: Continue current plan of care. 01/31: continues to ask for lots of PRNs. no change in presentation. 01/28 mild anemia and hyponatremia; trend. tegretol level 10.3. 02/01: series of abnormal and dynamic EKGs; today's WNL. cardiology consult requested for opinion. will start lithium pending cards opinion re EKG series. no change in presentation. 02/02: appreciate cardiology consultation and opinion. echocardiogram ordered. lithium started. appears better able to tolerate longer interaction today. 02/03: improved ability to tolerate social engagements continues. feels lithium has been helpful. akathisia likely. decrease haldol 02/10/10 to 5 BID and add thorazine 25 BID at 0900 and 1300. 02/04: clear uptick in psychotic.manic behavior yesterday after haldol dose decrease. eloped today. increase thorazine to 100/100/200 with PRNS available. 02/05: no concerning behaviors since elopement yesterday. refused PO haldol last night, otherwise med compliant. 02/06: med-compliant, no concerning behaviors. continue current mgmt. 02/07: check BMP along with lithium level. stable presentation. 02/08: CBC/BMP not concerning. lithium 0.6, tegretol 9.0. increase lithium dosing from 600 BID to 600/900 as of tonight. DC haldol entirely out of concerns for akathisia. invega not a great option due to tegretol interaction. start prolixin PO with IM back-up as alternative neuroleptic to haldol. 02/09: Continue current tx plan. 02/10: increase prolixin from 5 BID to 5 TID. otherwise continue current mgmt. 02/11: continue current mgmt. check labs jeferson of 02/13. 02/12: Continue current plan. Check labs in AM. 02/13: Continue current treatment plan. Li level 0.68, CMZ level 8.6 02/14: Continue current regimen and plans 02/15: increase lithium to 750/900. T/C increasing tegretol in near future as well. gradually seems to be improving. 02/16: stable. continue current mgmt. has broached feeling depressed the past couple of days. 02/17: Continue current tx plan. 02/18: check labs in several days. stable, Sx much improved from prior but still clearly psychotic. 02/20: no changes 02/21: continue current mgmt. check labs soon. still psychotic, endorsing AH. 02/22: no change in presentation. check lithium and tegretol levels tomorrow. 02/23: tegretol 8.3, lithium 0.96. increase tegretol from 400 BID to 400/600 as of tonight. c/o restlessness, concern for akathisia. will review neuroleptics regimen if Sx do not improve in next several days (as might be the case if his restlessness is residual dante). also, AH continue. 02/24: stable. continue current mgmt. assess Sx over next week, then check tegretol level. 02/25: better related, discussed his post-discharge plans. family meeting late next week. continue current regimen, check labs around 03/02. 02/26: Continue plan of care discharge planning 02/27: Patient can not continues much improved states he feels much better without drug use no psychosis. 02/28: +RIS, bizarrely ends interview with MD by just getting up and walking away without a look or a word. increase prolixin 5 TID to 7.5 TID for psychosis. otherwise continue current mgmt. 03/01: continue current mgmt. tired today, stayed in bed. Reason for continued inpatient stay Substantial Risk for: inability to function and rapid decompensation Time Spent With Patient Time: Total time managing care of this patient today ____ minutes.
[2023-03-01 19:55] VITALS: BP 123/74; PULSE 89; RESP 17; TEMP 36.4; O2SAT 97
[2023-03-01] MEDS: carBAMazepine ER 200 MG TAB.ER.12H 600 MG PO (21:28)
[2023-03-01] MEDS: chlorproMAZINE HCl 100 MG TABLET 200 MG PO (21:28)
[2023-03-01] MEDS: Lithium Carbonate ER 450 MG TABLET.ER 900 MG PO (21:30)
[2023-03-02 07:25] VITALS: BP 120/68; PULSE 91; RESP 18; TEMP 36.7; O2SAT 99
[2023-03-02] MEDS: carBAMazepine 200 MG TABLET 400 MG PO (09:13)
[2023-03-02] MEDS: fluPHENAZine HCl 2.5 MG TABLET 7.5 MG PO ×3 (09:13→21:06)
[2023-03-02] MEDS: chlorproMAZINE HCl 100 MG TABLET PO ×2 (09:13→13:47)
[2023-03-02] MEDS: Folic Acid 1 MG TABLET PO (09:13)
[2023-03-02] MEDS: Thiamine HCL 100 MG TABLET PO (09:14)
[2023-03-02] MEDS: Lithium Carbonate ER 300 MG TABLET.ER PO (09:14)
[2023-03-02] MEDS: Benztropine Mesylate 1 MG TABLET PO ×2 (09:14→21:07)
[2023-03-02] MEDS: Lithium Carbonate ER 450 MG TABLET.ER PO (09:14)
--- NOTE | 2023-03-02 16:27 | HO.PSYCHPN ---
Subjective Subjective Date of Service: 03/02/23 Reason For Visit: Psychosis Interim History: some delay in responses, one episode of, can you repeat that? denying AH, however. states his mood is even. per staff, declined [facility] services yesterday. eves pacing, swearing. med-compliant. +RIS. slept well. Mental Status Exam Mental Status Exam Narrative: lying in bed, awake. cooperative. linear, logical. guarded. no SI/HI/AVH expressed. Diagnostics Vital Signs (24Hr): Vital Signs - 24 hr 03/01/23 19:55 03/02/23 07:25 Temperature 97.6 F 98.1 F Pulse Rate 89 91 Respiratory Rate 17 18 Blood Pressure 123/74 120/68 Pulse Oximetry 97 99 Oxygen Delivery Method Room Air Room Air BMI result Body Mass Index 28.7 Labs 02/23/23 08:41 02/23/23 08:41 Medications Medications Current Medications Acetaminophen (Acetaminophen 325 Mg Tablet) 650 mg PO Q6H PRN PRN Reason: Headache/Pain Mild Scale (1-3) Last Admin: 02/25/23 20:13 Dose: 650 mg Al Hydroxide/Mg Hydroxide (Magnesium Hydrox/Alum Hydrox 30 Ml Oral.Susp) 30 ml PO Q6H PRN PRN Reason: Heartburn/Nausea Last Admin: 01/29/23 22:57 Dose: 30 ml Benzocaine (Throat Lozenge, Medicated Lozenge) 1 lozenge MUCOUS MEM Q2H PRN PRN Reason: Sore Throat Last Admin: 02/07/23 21:47 Dose: 1 lozenge Benztropine Mesylate (Benztropine Mesylate 1 Mg Tablet) 1 mg PO BID [facility] Last Admin: 03/02/23 09:14 Dose: 1 mg Carbamazepine (Carbamazepine 200 Mg Tablet) 400 mg PO DAILY [facility] Last Admin: 03/02/23 09:13 Dose: 400 mg Carbamazepine (Carbamazepine Er 200 Mg Tab.Er.12h) 600 mg PO BEDTIME [facility] Last Admin: 03/01/23 21:28 Dose: 600 mg Chlorpromazine HCl (Chlorpromazine Hcl 100 Mg Tablet) 200 mg PO BEDTIME [facility] Last Admin: 03/01/23 21:28 Dose: 200 mg Chlorpromazine HCl (Chlorpromazine Hcl 100 Mg Tablet) 100 mg PO BID@0900,1300 [facility] Last Admin: 03/02/23 13:47 Dose: 100 mg Chlorpromazine HCl (Chlorpromazine Hcl 100 Mg Tablet) 100 mg PO Q4H PRN PRN Reason: agitation/anxiety Last Admin: 03/01/23 19:05 Dose: 100 mg Clonidine HCl (Clonidine Hcl 0.1 Mg Tablet) 0.1 mg PO Q2H PRN; Protocol PRN Reason: agitation/signs of opioid withdrawal Last Admin: 02/15/23 19:47 Dose: 0.1 mg Diphenhydramine HCl (Diphenhydramine Hcl 25 Mg Capsule) 50 mg PO Q6H PRN PRN Reason: Allergic Symptoms Last Admin: 02/28/23 20:32 Dose: 50 mg Fluphenazine HCl (Fluphenazine Hcl 2.5 Mg/Ml 10 Ml Vial) 5 mg IM TID PRN PRN Reason: refusal of PO fluphenazine Fluphenazine HCl (Fluphenazine Hcl 2.5 Mg Tablet) 7.5 mg PO TID [facility] Last Admin: 03/02/23 15:42 Dose: 7.5 mg Folic Acid (Folic Acid 1 Mg Tablet) 1 mg PO DAILY [facility] Last Admin: 03/02/23 09:13 Dose: 1 mg Radium Carbonate (Radium Carbonate Er 450 Mg Tablet.Er) 900 mg PO BEDTIME [facility] Last Admin: 03/01/23 21:30 Dose: 900 mg Radium Carbonate (Radium Carbonate Er 300 Mg Tablet.Er) 300 mg PO DAILY [facility] Last Admin: 03/02/23 09:14 Dose: 300 mg Radium Carbonate (Radium Carbonate Er 450 Mg Tablet.Er) 450 mg PO DAILY [facility] Last Admin: 03/02/23 09:14 Dose: 450 mg Magnesium Hydroxide (Milk Of Magnesia 30 Ml Oral.Susp) 30 ml PO DAILY PRN PRN Reason: Constipation Multi-Ingred Cream/Lotion/Oil/Oint (Mineral Oil/Petrolatum,White 106 Gm Tube) 1 appl TOPICAL BID [facility]; Protocol Last Admin: 03/02/23 09:16 Dose: Not Given Nicotine (Nicotine 21 Mg Patch.Td24) 21 mg TRANSDERMA DAILY PRN PRN Reason: smoking cessation Last Admin: 01/15/23 16:06 Dose: 21 mg Nicotine Polacrilex (Nicotine Polacrilex 2 Mg Gum) 4 mg BUCCAL Q2H PRN PRN Reason: nicotine cravings Last Admin: 02/09/23 11:45 Dose: 4 mg Ondansetron HCl (Ondansetron Odt 4 Mg Tab.Rapdis) 4 mg TRANSLINGU Q6H PRN PRN Reason: Nausea and Vomiting Last Admin: 01/28/23 14:44 Dose: 4 mg Thiamine HCl (Thiamine Hcl 100 Mg Tablet) 100 mg PO DAILY [facility] Last Admin: 03/02/23 09:14 Dose: 100 mg Trazodone HCl (Trazodone Hcl 50 Mg Tablet) 50 mg PO BEDTIME MRX1 PRN PRN Reason: Insomnia Last Admin: 02/12/23 20:55 Dose: 50 mg Allergies Allergies Allergy/AdvReac Type Severity Reaction Status Date / Time morphine [MORPHINE] AdvReac Unknown NAUSEA Verified 12/10/22 19:56 Assessment & Plan Assessment & Plan (1) Nonspecific ST-T wave electrocardiographic changes: Status: Acute Code(s): R94.31 - Abnormal electrocardiogram [ECG] [EKG] (2) Cocaine use disorder: Status: Acute Code(s): F14.10 - Cocaine abuse, uncomplicated (3) Schizoaffective disorder, bipolar type: Status: Acute Code(s): F25.0 - Schizoaffective disorder, bipolar type (4) Opioid use disorder: Status: Acute Code(s): F11.90 - Opioid use, unspecified, uncomplicated Plan 12/24: attempt to give anti-psychotics. comfort meds for opioid and cocaine withdrawal. 12/25: refusing medications. period of agitation last night slamming doors and yelling (presumably @). continue current mgmt. 12/26: refusing meds. binging and purging. floridly psychotic. 12/27: had meds last night for sleep, per his request. schedule all haldol tonight with ativan and cogentin. a bit more interactive today, remains delayed and distracted. no binging/purging behaviors or agitated behaviors described by RN report today. 12/28: refused meds last night. Today asks for meds for sx mgt- aggressive today-threw two coffee cups. Begin Depakote 250 mg bid. 12/29: got multiple meds last NOC and overnight per his request. slept 2 hours. refusing meds this morning. commitment paperwork completed. 3-day notice expires tomorrow. c/o opioid craving, asked for methadone. methadone 30 mg daily started today. 12/30: filed for commitment today. haldol and ativan per his request last night. appears in disbelief that he will not be discharged today. 12/31: demanding to leave, getting agitated, banging on nursing station, slamming doors in his room. given IMs x 2, haldol 10 ativan 2 benadryl 50 for first and thorazine 100 for second. 01/01: Remains unpredictable and irritable. Refusing scheduled medications. Section 7/ filed. 01/02: Continue current management. 01/03: refusing meds. irritable, labile. periods of agitation. continue current mgmt, awaiting hearing for . 01/04: refusing meds. irritable, labile. periods of agitation. continue current mgmt, though pt is refusing meds. 01/05: thought-blocked. denies mental illness or need for medications. offer medications. hearing tomorrow. 01/06: committed and ordered medications at hearing. 06/12/20 [facility] [place], pt was discharged on VPA, zyprexa, haldol. 03/14/20 DC summary reviewed, pt discharged on zyprexa, haldol. pt unable to comprehend result, agitated not to be leaving today. 01/07: copy of court order on unit, will order meds accordingly today. no change in presentation. 01/08: Continue current regimen and plans 01/09: Continue current plans and regimen. Discontinue contingent IM Ativan if Depakote refused 01/10: Continue current regimen and plans. 01/11: DC VPA, start tegretol per pt preference. ativan 2 mg IM for refusal of tegretol. continue haldol PO/IM orders. improved from last week. less agitated, a bit more organized and engaging. 01/12: appears more disorganized again today, trouble engaging. refused PO meds last night but did take tegretol PO this morning. 01/13: continues disorganized, difficulty expressing himself. refusing PO meds since yesterday morning. slept 10 hours last night, however 01/14: intermittently taking meds PO versus IM. improved behavior from prior to med order, but remains floridly psychotic. continue current mgmt. 01/16/2023: No changes to current plan 01/17: more compliant with tegretol in recent days, still getting haldol IM. no change in presentation. continue current mgmt. 01/18: remains psychotic, labile. increase tegretol to 300 mg BID. 01/19: continues more aggressive and labile today. increase haldol to 10 BID with back-up IM of 7.5 mg. 01/20: more calm today,periods of agitation, however, in the past 24H. continue current mgmt. declines to change scheduled haldol to thorazine (proposed by MD in the hope he would in order to spare him the IMs). 01/21 continue tx. 01/22 writing for thorazine at bed- mr x1 and check ekg given other antipsychotics on board 01/23 agreed to ekg today, added 1pm dose of 5mg haldol 01/24: taking meds PO, still suffering from AH, possibly VH. perhaps trending more calm, but clearly still periods of agitation in the past several days. 01/25: labile, paranoid delusions. informed staff he experiences AH, mumbles recently. increase tegretol to 400 BID, make IR formulation as he has been chewing the pills. 01/26: more calm today. continue current mgmt. 01/27: continues more calm. some staff concerned for akathisia due to pacing and number of PRNs taken, but appears to be doing less walking than he had been before, does not appear restless or uncomfortable. continue current mgmt, check tegretol level 2 weeks after dose change (02/08). 01/28: stable presentation. intermittent sleep disturbance. continue current mgmt. 01/29: Continue current management. Benadryl for allergies 01/30: Continue current plan of care. 01/31: continues to ask for lots of PRNs. no change in presentation. 01/28 mild anemia and hyponatremia; trend. tegretol level 10.3. 02/01: series of abnormal and dynamic EKGs; today's WNL. cardiology consult requested for opinion. will start lithium pending cards opinion re EKG series. no change in presentation. 02/02: appreciate cardiology consultation and opinion. echocardiogram ordered. lithium started. appears better able to tolerate longer interaction today. 02/03: improved ability to tolerate social engagements continues. feels lithium has been helpful. akathisia likely. decrease haldol 02/10/10 to 5 BID and add thorazine 25 BID at 0900 and 1300. 02/04: clear uptick in psychotic.manic behavior yesterday after haldol dose decrease. eloped today. increase thorazine to 100/100/200 with PRNS available. 02/05: no concerning behaviors since elopement yesterday. refused PO haldol last night, otherwise med compliant. 02/06: med-compliant, no concerning behaviors. continue current mgmt. 02/07: check BMP along with lithium level. stable presentation. 02/08: CBC/BMP not concerning. lithium 0.6, tegretol 9.0. increase lithium dosing from 600 BID to 600/900 as of tonight. DC haldol entirely out of concerns for akathisia. invega not a great option due to tegretol interaction. start prolixin PO with IM back-up as alternative neuroleptic to haldol. 02/09: Continue current tx plan. 02/10: increase prolixin from 5 BID to 5 TID. otherwise continue current mgmt. 02/11: continue current mgmt. check labs jeferson of 02/13. 02/12: Continue current plan. Check labs in AM. 02/13: Continue current treatment plan. Li level 0.68, CMZ level 8.6 02/14: Continue current regimen and plans 02/15: increase lithium to 750/900. T/C increasing tegretol in near future as well. gradually seems to be improving. 02/16: stable. continue current mgmt. has broached feeling depressed the past couple of days. 02/17: Continue current tx plan. 02/18: check labs in several days. stable, Sx much improved from prior but still clearly psychotic. 02/20: no changes 02/21: continue current mgmt. check labs soon. still psychotic, endorsing AH. 02/22: no change in presentation. check lithium and tegretol levels tomorrow. 02/23: tegretol 8.3, lithium 0.96. increase tegretol from 400 BID to 400/600 as of tonight. c/o restlessness, concern for akathisia. will review neuroleptics regimen if Sx do not improve in next several days (as might be the case if his restlessness is residual dante). also, AH continue. 02/24: stable. continue current mgmt. assess Sx over next week, then check tegretol level. 02/25: better related, discussed his post-discharge plans. family meeting late next week. continue current regimen, check labs around 03/02. 02/26: Continue plan of care discharge planning 02/27: Patient can not continues much improved states he feels much better without drug use no psychosis. 02/28: +RIS, bizarrely ends interview with MD by just getting up and walking away without a look or a word. increase prolixin 5 TID to 7.5 TID for psychosis. otherwise continue current mgmt. 03/01: continue current mgmt. tired today, stayed in bed. 03/02: tired again, rouses himself to sit up for interview. latency of response, asks MD to repeat question once, but denies AH. continue current mgmt. Reason for continued inpatient stay Substantial Risk for: inability to function and rapid decompensation Time Spent With Patient Time: Total time managing care of this patient today ____ minutes.
[2023-03-02 20:23] VITALS: BP 113/60; PULSE 74; RESP 16; TEMP 36.9; O2SAT 98
[2023-03-02] MEDS: carBAMazepine ER 200 MG TAB.ER.12H 600 MG PO (21:06)
[2023-03-02] MEDS: chlorproMAZINE HCl 100 MG TABLET 200 MG PO (21:06)
[2023-03-02] MEDS: Lithium Carbonate ER 450 MG TABLET.ER 900 MG PO (21:07)
[2023-03-03] MEDS: Folic Acid 1 MG TABLET PO (09:45)
[2023-03-03] MEDS: Thiamine HCL 100 MG TABLET PO (09:45)
[2023-03-03] MEDS: chlorproMAZINE HCl 100 MG TABLET PO ×2 (09:46→13:30)
[2023-03-03] MEDS: Lithium Carbonate ER 450 MG TABLET.ER PO (09:46)
[2023-03-03] MEDS: fluPHENAZine HCl 2.5 MG TABLET 7.5 MG PO ×3 (09:47→23:19)
[2023-03-03] MEDS: carBAMazepine 200 MG TABLET 400 MG PO (09:47)
[2023-03-03] MEDS: Lithium Carbonate ER 300 MG TABLET.ER PO (09:47)
[2023-03-03] MEDS: Benztropine Mesylate 1 MG TABLET PO ×2 (09:47→23:19)
--- NOTE | 2023-03-03 16:14 | HO.PSYCHPN ---
Subjective Subjective Date of Service: 03/03/23 Reason For Visit: Psychosis Interim History: calm, cooperative. denies AH unconvincingly. MD informs him of lab draw, pt asks if it is for medication levels, MD replies in the affirmative. per staff, pacing, self-dialoguing. pleasant, med-compliant. safe. slept well. Mental Status Exam Mental Status Exam Narrative: adequately dressed and groomed. up and about the unit. cooperative. linear, logical. guarded, vague. affect constricted, no SI/HI/VH expressed. denies AH. Diagnostics Vital Signs (24Hr): Vital Signs - 24 hr 03/02/23 20:23 Temperature 98.5 F Pulse Rate 74 Respiratory Rate 16 Blood Pressure 113/60 Pulse Oximetry 98 Oxygen Delivery Method Room Air BMI result Body Mass Index 28.7 Labs 02/23/23 08:41 02/23/23 08:41 Medications Medications Current Medications Acetaminophen (Acetaminophen 325 Mg Tablet) 650 mg PO Q6H PRN PRN Reason: Headache/Pain Mild Scale (1-3) Last Admin: 02/25/23 20:13 Dose: 650 mg Al Hydroxide/Mg Hydroxide (Magnesium Hydrox/Alum Hydrox 30 Ml Oral.Susp) 30 ml PO Q6H PRN PRN Reason: Heartburn/Nausea Last Admin: 01/29/23 22:57 Dose: 30 ml Benzocaine (Throat Lozenge, Medicated Lozenge) 1 lozenge MUCOUS MEM Q2H PRN PRN Reason: Sore Throat Last Admin: 02/07/23 21:47 Dose: 1 lozenge Benztropine Mesylate (Benztropine Mesylate 1 Mg Tablet) 1 mg PO BID LEONOR Last Admin: 03/03/23 09:47 Dose: 1 mg Carbamazepine (Carbamazepine 200 Mg Tablet) 400 mg PO DAILY [facility]ON[facility] Last Admin: 03/03/23 09:47 Dose: 400 mg Carbamazepine (Carbamazepine Er 200 Mg Tab.Er.12h) 600 mg PO BEDTIME [facility]ON[facility] Last Admin: 03/02/23 21:06 Dose: 600 mg Chlorpromazine HCl (Chlorpromazine Hcl 100 Mg Tablet) 200 mg PO BEDTIME [facility]ONOR Last Admin: 03/02/23 21:06 Dose: 200 mg Chlorpromazine HCl (Chlorpromazine Hcl 100 Mg Tablet) 100 mg PO BID@0900,1300 [facility] Last Admin: 03/03/23 13:30 Dose: 100 mg Chlorpromazine HCl (Chlorpromazine Hcl 100 Mg Tablet) 100 mg PO Q4H PRN PRN Reason: agitation/anxiety Last Admin: 03/01/23 19:05 Dose: 100 mg Clonidine HCl (Clonidine Hcl 0.1 Mg Tablet) 0.1 mg PO Q2H PRN; Protocol PRN Reason: agitation/signs of opioid withdrawal Last Admin: 02/15/23 19:47 Dose: 0.1 mg Diphenhydramine HCl (Diphenhydramine Hcl 25 Mg Capsule) 50 mg PO Q6H PRN PRN Reason: Allergic Symptoms Last Admin: 02/28/23 20:32 Dose: 50 mg Fluphenazine HCl (Fluphenazine Hcl 2.5 Mg/Ml 10 Ml Vial) 5 mg IM TID PRN PRN Reason: refusal of PO fluphenazine Fluphenazine HCl (Fluphenazine Hcl 2.5 Mg Tablet) 7.5 mg PO TID [facility] Last Admin: 03/03/23 15:12 Dose: 7.5 mg Folic Acid (Folic Acid 1 Mg Tablet) 1 mg PO DAILY [facility] Last Admin: 03/03/23 09:45 Dose: 1 mg [place] Carbonate ([place] Carbonate Er 450 Mg Tablet.Er) 900 mg PO BEDTIME [facility] Last Admin: 03/02/23 21:07 Dose: 900 mg [place] Carbonate ([place] Carbonate Er 300 Mg Tablet.Er) 300 mg PO DAILY [facility] Last Admin: 03/03/23 09:47 Dose: 300 mg [place] Carbonate ([place] Carbonate Er 450 Mg Tablet.Er) 450 mg PO DAILY [facility] Last Admin: 03/03/23 09:46 Dose: 450 mg Magnesium Hydroxide (Milk Of Magnesia 30 Ml Oral.Susp) 30 ml PO DAILY PRN PRN Reason: Constipation Multi-Ingred Cream/Lotion/Oil/Oint (Mineral Oil/Petrolatum,White 106 Gm Tube) 1 appl TOPICAL BID [facility]; Protocol Last Admin: 03/03/23 09:49 Dose: Not Given Nicotine (Nicotine 21 Mg Patch.Td24) 21 mg TRANSDERMA DAILY PRN PRN Reason: smoking cessation Last Admin: 01/15/23 16:06 Dose: 21 mg Nicotine Polacrilex (Nicotine Polacrilex 2 Mg Gum) 4 mg BUCCAL Q2H PRN PRN Reason: nicotine cravings Last Admin: 02/09/23 11:45 Dose: 4 mg Ondansetron HCl (Ondansetron Odt 4 Mg Tab.Rapdis) 4 mg TRANSLINGU Q6H PRN PRN Reason: Nausea and Vomiting Last Admin: 01/28/23 14:44 Dose: 4 mg Thiamine HCl (Thiamine Hcl 100 Mg Tablet) 100 mg PO DAILY [facility]ON[facility] Last Admin: 03/03/23 09:45 Dose: 100 mg Trazodone HCl (Trazodone Hcl 50 Mg Tablet) 50 mg PO BEDTIME MRX1 PRN PRN Reason: Insomnia Last Admin: 02/12/23 20:55 Dose: 50 mg Allergies Allergies Allergy/AdvReac Type Severity Reaction Status Date / Time morphine [MORPHINE] AdvReac Unknown NAUSEA Verified 12/10/22 19:56 Assessment & Plan Assessment & Plan (1) Nonspecific ST-T wave electrocardiographic changes: Status: Acute Code(s): R94.31 - Abnormal electrocardiogram [ECG] [EKG] (2) Cocaine use disorder: Status: Acute Code(s): F14.10 - Cocaine abuse, uncomplicated (3) Schizoaffective disorder, bipolar type: Status: Acute Code(s): F25.0 - Schizoaffective disorder, bipolar type (4) Opioid use disorder: Status: Acute Code(s): F11.90 - Opioid use, unspecified, uncomplicated Plan 12/24: attempt to give anti-psychotics. comfort meds for opioid and cocaine withdrawal. 12/25: refusing medications. period of agitation last night slamming doors and yelling (presumably @). continue current mgmt. 12/26: refusing meds. binging and purging. floridly psychotic. 12/27: had meds last night for sleep, per his request. schedule all haldol tonight with ativan and cogentin. a bit more interactive today, remains delayed and distracted. no binging/purging behaviors or agitated behaviors described by RN report today. 12/28: refused meds last night. Today asks for meds for sx mgt- aggressive today-threw two coffee cups. Begin Depakote 250 mg bid. 12/29: got multiple meds last NOC and overnight per his request. slept 2 hours. refusing meds this morning. commitment paperwork completed. 3-day notice expires tomorrow. c/o opioid craving, asked for methadone. methadone 30 mg daily started today. 12/30: filed for commitment today. haldol and ativan per his request last night. appears in disbelief that he will not be discharged today. 12/31: demanding to leave, getting agitated, banging on nursing station, slamming doors in his room. given IMs x 2, haldol 10 ativan 2 benadryl 50 for first and thorazine 100 for second. 01/01: Remains unpredictable and irritable. Refusing scheduled medications. Section 7/ filed. 01/02: Continue current management. 01/03: refusing meds. irritable, labile. periods of agitation. continue current mgmt, awaiting hearing for . 01/04: refusing meds. irritable, labile. periods of agitation. continue current mgmt, though pt is refusing meds. 01/05: thought-blocked. denies mental illness or need for medications. offer medications. hearing tomorrow. 01/06: committed and ordered medications at hearing. 06/12/20 [facility] [place] summary reviewd, pt was discharged on VPA, zyprexa, haldol. 03/14/20 DC summary reviewed, pt discharged on zyprexa, haldol. pt unable to comprehend result, agitated not to be leaving today. 01/07: copy of court order on unit, will order meds accordingly today. no change in presentation. 01/08: Continue current regimen and plans 01/09: Continue current plans and regimen. Discontinue contingent IM Ativan if Depakote refused 01/10: Continue current regimen and plans. 01/11: DC VPA, start tegretol per pt preference. ativan 2 mg IM for refusal of tegretol. continue haldol PO/IM orders. improved from last week. less agitated, a bit more organized and engaging. 01/12: appears more disorganized again today, trouble engaging. refused PO meds last night but did take tegretol PO this morning. 01/13: continues disorganized, difficulty expressing himself. refusing PO meds since yesterday morning. slept 10 hours last night, however 01/14: intermittently taking meds PO versus IM. improved behavior from prior to med order, but remains floridly psychotic. continue current mgmt. 01/16/2023: No changes to current plan 01/17: more compliant with tegretol in recent days, still getting haldol IM. no change in presentation. continue current mgmt. 01/18: remains psychotic, labile. increase tegretol to 300 mg BID. 01/19: continues more aggressive and labile today. increase haldol to 10 BID with back-up IM of 7.5 mg. 01/20: more calm today,periods of agitation, however, in the past 24H. continue current mgmt. declines to change scheduled haldol to thorazine (proposed by MD in the hope he would in order to spare him the IMs). 01/21 continue tx. 01/22 writing for thorazine at bed- mr x1 and check ekg given other antipsychotics on board 01/23 agreed to ekg today, added 1pm dose of 5mg haldol 01/24: taking meds PO, still suffering from AH, possibly VH. perhaps trending more calm, but clearly still periods of agitation in the past several days. 01/25: labile, paranoid delusions. informed staff he experiences AH, mumbles recently. increase tegretol to 400 BID, make IR formulation as he has been chewing the pills. 01/26: more calm today. continue current mgmt. 01/27: continues more calm. some staff concerned for akathisia due to pacing and number of PRNs taken, but appears to be doing less walking than he had been before, does not appear restless or uncomfortable. continue current mgmt, check tegretol level 2 weeks after dose change (02/08). 01/28: stable presentation. intermittent sleep disturbance. continue current mgmt. 01/29: Continue current management. Benadryl for allergies 01/30: Continue current plan of care. 01/31: continues to ask for lots of PRNs. no change in presentation. 01/28 mild anemia and hyponatremia; trend. tegretol level 10.3. 02/01: series of abnormal and dynamic EKGs; today's WNL. cardiology consult requested for opinion. will start lithium pending cards opinion re EKG series. no change in presentation. 02/02: appreciate cardiology consultation and opinion. echocardiogram ordered. lithium started. appears better able to tolerate longer interaction today. 02/03: improved ability to tolerate social engagements continues. feels lithium has been helpful. akathisia likely. decrease haldol 02/10/10 to 5 BID and add thorazine 25 BID at 0900 and 1300. 02/04: clear uptick in psychotic.manic behavior yesterday after haldol dose decrease. eloped today. increase thorazine to 100/100/200 with PRNS available. 02/05: no concerning behaviors since elopement yesterday. refused PO haldol last night, otherwise med compliant. 02/06: med-compliant, no concerning behaviors. continue current mgmt. 02/07: check BMP along with lithium level. stable presentation. 02/08: CBC/BMP not concerning. lithium 0.6, tegretol 9.0. increase lithium dosing from 600 BID to 600/900 as of tonight. DC haldol entirely out of concerns for akathisia. invega not a great option due to tegretol interaction. start prolixin PO with IM back-up as alternative neuroleptic to haldol. 02/09: Continue current tx plan. 02/10: increase prolixin from 5 BID to 5 TID. otherwise continue current mgmt. 02/11: continue current mgmt. check labs jeferson of 02/13. 02/12: Continue current plan. Check labs in AM. 02/13: Continue current treatment plan. Li level 0.68, CMZ level 8.6 02/14: Continue current regimen and plans 02/15: increase lithium to 750/900. T/C increasing tegretol in near future as well. gradually seems to be improving. 02/16: stable. continue current mgmt. has broached feeling depressed the past couple of days. 02/17: Continue current tx plan. 02/18: check labs in several days. stable, Sx much improved from prior but still clearly psychotic. 02/20: no changes 02/21: continue current mgmt. check labs soon. still psychotic, endorsing AH. 02/22: no change in presentation. check lithium and tegretol levels tomorrow. 02/23: tegretol 8.3, lithium 0.96. increase tegretol from 400 BID to 400/600 as of tonight. c/o restlessness, concern for akathisia. will review neuroleptics regimen if Sx do not improve in next several days (as might be the case if his restlessness is residual dante). also, AH continue. 02/24: stable. continue current mgmt. assess Sx over next week, then check tegretol level. 02/25: better related, discussed his post-discharge plans. family meeting late next week. continue current regimen, check labs around 03/02. 02/26: Continue plan of care discharge planning 02/27: Patient can not continues much improved states he feels much better without drug use no psychosis. 02/28: +RIS, bizarrely ends interview with MD by just getting up and walking away without a look or a word. increase prolixin 5 TID to 7.5 TID for psychosis. otherwise continue current mgmt. 03/01: continue current mgmt. tired today, stayed in bed. 03/02: tired again, rouses himself to sit up for interview. latency of response, asks MD to repeat question once, but denies AH. continue current mgmt. 03/03: more up and about today. unconvincingly denies AH. continue current mgmt. check labs tonight. Reason for continued inpatient stay Substantial Risk for: inability to function and rapid decompensation Time Spent With Patient Time: Total time managing care of this patient today __25__ minutes.
[2023-03-03 19:45] VITALS: BP 134/74; PULSE 99; RESP 16; TEMP 36.9; O2SAT 98
[2023-03-03] MEDS: diphenhydrAMINE HCL 25 MG CAPSULE 50 MG PO (19:48)
[2023-03-03 20:15] LABS: MANUAL DIFF FLAG NO
[2023-03-03 20:18] LABS: Basophils Absolute Auto 0.1 X10*3/uL (0.0-0.2); Basophils Percent Auto 0.8 % (0-2); Eosinophils Percent Auto 8.8 % (0-4); Hematocrit 39.2 % (42.0-52.0); Hemoglobin 13.4 g/dl (14.0-18.0); Imm Gran Abs Auto 0.12 X10*3/uL (0.00-0.03); Imm Gran Pct Auto 1.1 % (0.0-0.4); Lymphocytes Absolute Auto 2.2 X10*3/uL (1.2-4.9); Lymphocytes Percent Auto 20.2 % (20-40); Mean Corpuscular HGB Conc 34.2 g/dl (31.0-36.0); Mean Corpuscular Hemoglobin 30.5 pg (27.0-33.0); Mean Corpuscular Volume 89.1 fL (80.0-98.0); Mean Platelet Volume 10.6 fL (9.4-12.4); Monocytes Absolute Auto 0.9 X10*3/uL (0.1-1.2); Monocytes Percent Auto 8.4 % (2-11); Neutrophils Absolute Auto 6.7 x10*3/uL (2.0-8.3); Neutrophils Percent Auto 60.7 % (45-73); Platelet Count 197 X10*3/uL (160-400); Red Cell Distribution Width 12.1 % (11.0-16.0)
[2023-03-03 20:27] LABS: Lithium 0.76 mmol/L (0.60-1.20)
[2023-03-03 20:35] LABS: Carbamazepine Tegretol 9.6 mcg/mL (5.0-12.0)
[2023-03-03 20:40] LABS: Alanine Aminotransferase 18 U/L (0-40); Albumin Level 4.7 g/dL (3.5-5.0); Alkaline Phosphatase 65 U/L (39-117); Anion Gap 13 (12-20); Aspartate Amino Transferase 13 U/L (5-37); Bilirubin Direct < 0.2 mg/dL (0.0-0.5); Bilirubin Total 0.2 mg/dL (0.0-1.0); Blood Urea Nitrogen 15 mg/dL (9-16); Calcium 10.1 mg/dL (8.4-10.2); Carbon Dioxide 28 mmol/L (22-29); Chloride 104 mmol/L (96-108); Creatinine Clr Calc Pharmacy 108.8; Estimated Glomerular Filt Rate > 60; Glucose Random 117 mg/dL (60-115); Potassium 4.7 mmol/L (3.3-5.1); Sodium 140 mmol/L (135-145); Total Protein 7.1 g/dL (6.5-8.0)
[2023-03-03] MEDS: carBAMazepine ER 200 MG TAB.ER.12H 600 MG PO (23:19)
[2023-03-03] MEDS: chlorproMAZINE HCl 100 MG TABLET 200 MG PO (23:19)
[2023-03-03] MEDS: Lithium Carbonate ER 450 MG TABLET.ER 900 MG PO (23:19)
[2023-03-04 08:00] VITALS: BP 115/73; PULSE 80; RESP 16; TEMP 36.8; O2SAT 98
[2023-03-04] MEDS: chlorproMAZINE HCl 100 MG TABLET PO ×2 (09:15→12:46)
[2023-03-04] MEDS: fluPHENAZine HCl 2.5 MG TABLET 7.5 MG PO ×3 (09:15→20:25)
[2023-03-04] MEDS: Folic Acid 1 MG TABLET PO (09:16)
[2023-03-04] MEDS: Lithium Carbonate ER 300 MG TABLET.ER PO (09:16)
[2023-03-04] MEDS: carBAMazepine 200 MG TABLET 400 MG PO (09:16)
[2023-03-04] MEDS: Benztropine Mesylate 1 MG TABLET PO ×2 (09:16→20:25)
[2023-03-04] MEDS: Thiamine HCL 100 MG TABLET PO (09:16)
[2023-03-04] MEDS: Lithium Carbonate ER 450 MG TABLET.ER PO (09:17)
--- NOTE | 2023-03-04 14:18 | HO.PSYCHPN ---
Subjective Subjective Date of Service: 03/04/23 Reason For Visit: Psychosis Interim History: calm, cooperative. stating voices continue but less bothersome, otherwise feeling well. aware of meeting with parents on tuesday. per staff, denies mood or anxiety problems. +RIS. +ADLs. Mental Status Exam Mental Status Exam Narrative: adequately dressed and groomed. up and about the unit. cooperative. linear, logical. guarded, vague. affect constricted, no SI/HI/VH expressed. denies AH. Diagnostics Vital Signs (24Hr): Vital Signs - 24 hr 03/03/23 19:45 03/04/23 08:00 Temperature 98.4 F 98.3 F Pulse Rate 99 80 Respiratory Rate 16 16 Blood Pressure 134/74 115/73 Pulse Oximetry 98 98 Oxygen Delivery Method Room Air Room Air BMI result Body Mass Index 28.7 Labs 03/03/23 20:10 03/03/23 20:10 Labs: Laboratory Results - last 48 hr 03/03/23 20:10 WBC 11.0 H RBC 4.40 L Hgb 13.4 L Hct 39.2 L MCV 89.1 MCH 30.5 MCHC 34.2 RDW 12.1 Plt Count 197 MPV 10.6 Immature Gran % (Auto) 1.1 H Neut % (Auto) 60.7 Lymph % (Auto) 20.2 [place] % (Auto) 8.4 Eos % (Auto) 8.8 H Baso % (Auto) 0.8 Lymph # (Auto) 2.2 [place] # (Auto) 0.9 Eos # (Auto) 1.0 H Baso # (Auto) 0.1 Abs Immat Gran (auto) 0.12 H Absolute Neuts (auto) 6.7 Absolute Nucleated RBC 0.000 Nucleated RBC % (auto) 0.0 Sodium 140 Potassium 4.7 Chloride 104 Carbon Dioxide 28 Anion Gap 13 BUN 15 Creatinine 1.18 Estim Creat Clear Calc 108.8 Estimated GFR > 60 Random Glucose 117 H Calcium 10.1 Total Bilirubin 0.2 Direct Bilirubin < 0.2 AST 13 ALT 18 Alkaline Phosphatase 65 Total Protein 7.1 Albumin 4.7 Carbamazepine 9.6 [employer] 0.76 Medications Medications Current Medications Acetaminophen (Acetaminophen 325 Mg Tablet) 650 mg PO Q6H PRN PRN Reason: Headache/Pain Mild Scale (1-3) Last Admin: 02/25/23 20:13 Dose: 650 mg Al Hydroxide/Mg Hydroxide (Magnesium Hydrox/Alum Hydrox 30 Ml Oral.Susp) 30 ml PO Q6H PRN PRN Reason: Heartburn/Nausea Last Admin: 01/29/23 22:57 Dose: 30 ml Benzocaine (Throat Lozenge, Medicated Lozenge) 1 lozenge MUCOUS MEM Q2H PRN PRN Reason: Sore Throat Last Admin: 02/07/23 21:47 Dose: 1 lozenge Benztropine Mesylate (Benztropine Mesylate 1 Mg Tablet) 1 mg PO BID [facility] Last Admin: 03/04/23 09:16 Dose: 1 mg Carbamazepine (Carbamazepine 200 Mg Tablet) 400 mg PO DAILY [facility] Last Admin: 03/04/23 09:16 Dose: 400 mg Carbamazepine (Carbamazepine Er 200 Mg Tab.Er.12h) 600 mg PO BEDTIME [facility] Last Admin: 03/03/23 23:19 Dose: 600 mg Chlorpromazine HCl (Chlorpromazine Hcl 100 Mg Tablet) 200 mg PO BEDTIME [facility] Last Admin: 03/03/23 23:19 Dose: 200 mg Chlorpromazine HCl (Chlorpromazine Hcl 100 Mg Tablet) 100 mg PO BID@0900,1300 [facility] Last Admin: 03/04/23 12:46 Dose: 100 mg Chlorpromazine HCl (Chlorpromazine Hcl 100 Mg Tablet) 100 mg PO Q4H PRN PRN Reason: agitation/anxiety Last Admin: 03/01/23 19:05 Dose: 100 mg Clonidine HCl (Clonidine Hcl 0.1 Mg Tablet) 0.1 mg PO Q2H PRN; Protocol PRN Reason: agitation/signs of opioid withdrawal Last Admin: 02/15/23 19:47 Dose: 0.1 mg Diphenhydramine HCl (Diphenhydramine Hcl 25 Mg Capsule) 50 mg PO Q6H PRN PRN Reason: Allergic Symptoms Last Admin: 03/03/23 19:48 Dose: 50 mg Fluphenazine HCl (Fluphenazine Hcl 2.5 Mg/Ml 10 Ml Vial) 5 mg IM TID PRN PRN Reason: refusal of PO fluphenazine Fluphenazine HCl (Fluphenazine Hcl 2.5 Mg Tablet) 7.5 mg PO TID [facility] Last Admin: 03/04/23 09:15 Dose: 7.5 mg Folic Acid (Folic Acid 1 Mg Tablet) 1 mg PO DAILY [facility] Last Admin: 03/04/23 09:16 Dose: 1 mg [employer] Carbonate ([employer] Carbonate Er 450 Mg Tablet.Er) 900 mg PO BEDTIME [facility] Last Admin: 03/03/23 23:19 Dose: 900 mg [employer] Carbonate ([employer] Carbonate Er 300 Mg Tablet.Er) 300 mg PO DAILY [facility] Last Admin: 03/04/23 09:16 Dose: 300 mg [employer] Carbonate ([employer] Carbonate Er 450 Mg Tablet.Er) 450 mg PO DAILY [facility] Last Admin: 03/04/23 09:17 Dose: 450 mg Magnesium Hydroxide (Milk Of Magnesia 30 Ml Oral.Susp) 30 ml PO DAILY PRN PRN Reason: Constipation Multi-Ingred Cream/Lotion/Oil/Oint (Mineral Oil/Petrolatum,White 106 Gm Tube) 1 appl TOPICAL BID [facility]; Protocol Last Admin: 03/04/23 09:18 Dose: Not Given Nicotine (Nicotine 21 Mg Patch.Td24) 21 mg TRANSDERMA DAILY PRN PRN Reason: smoking cessation Last Admin: 01/15/23 16:06 Dose: 21 mg Nicotine Polacrilex (Nicotine Polacrilex 2 Mg Gum) 4 mg BUCCAL Q2H PRN PRN Reason: nicotine cravings Last Admin: 02/09/23 11:45 Dose: 4 mg Ondansetron HCl (Ondansetron Odt 4 Mg Tab.Rapdis) 4 mg TRANSLINGU Q6H PRN PRN Reason: Nausea and Vomiting Last Admin: 01/28/23 14:44 Dose: 4 mg Thiamine HCl (Thiamine Hcl 100 Mg Tablet) 100 mg PO DAILY [facility] Last Admin: 03/04/23 09:16 Dose: 100 mg Trazodone HCl (Trazodone Hcl 50 Mg Tablet) 50 mg PO BEDTIME MRX1 PRN PRN Reason: Insomnia Last Admin: 02/12/23 20:55 Dose: 50 mg Allergies Allergies Allergy/AdvReac Type Severity Reaction Status Date / Time morphine [MORPHINE] AdvReac Unknown NAUSEA Verified 12/10/22 19:56 Assessment & Plan Assessment & Plan (1) Nonspecific ST-T wave electrocardiographic changes: Status: Acute Code(s): R94.31 - Abnormal electrocardiogram [ECG] [EKG] (2) Cocaine use disorder: Status: Acute Code(s): F14.10 - Cocaine abuse, uncomplicated (3) Schizoaffective disorder, bipolar type: Status: Acute Code(s): F25.0 - Schizoaffective disorder, bipolar type (4) Opioid use disorder: Status: Acute Code(s): F11.90 - Opioid use, unspecified, uncomplicated Plan 12/24: attempt to give anti-psychotics. comfort meds for opioid and cocaine withdrawal. 12/25: refusing medications. period of agitation last night slamming doors and yelling (presumably @AH). continue current mgmt. 12/26: refusing meds. binging and purging. floridly psychotic. 12/27: had meds last night for sleep, per his request. schedule all haldol tonight with ativan and cogentin. a bit more interactive today, remains delayed and distracted. no binging/purging behaviors or agitated behaviors described by RN report today. 12/28: refused meds last night. Today asks for meds for sx mgt- aggressive today-threw two coffee cups. Begin Depakote 250 mg bid. 12/29: got multiple meds last NOC and overnight per his request. slept 2 hours. refusing meds this morning. commitment paperwork completed. 3-day notice expires tomorrow. c/o opioid craving, asked for methadone. methadone 30 mg daily started today. 12/30: filed for commitment today. haldol and ativan per his request last night. appears in disbelief that he will not be discharged today. 12/31: demanding to leave, getting agitated, banging on nursing station, slamming doors in his room. given IMs x 2, haldol 10 ativan 2 benadryl 50 for first and thorazine 100 for second. 01/01: Remains unpredictable and irritable. Refusing scheduled medications. Section 7/ filed. 01/02: Continue current management. 01/03: refusing meds. irritable, labile. periods of agitation. continue current mgmt, awaiting hearing for . 01/04: refusing meds. irritable, labile. periods of agitation. continue current mgmt, though pt is refusing meds. 01/05: thought-blocked. denies mental illness or need for medications. offer medications. hearing tomorrow. 01/06: committed and ordered medications at hearing. 06/12/[place] [facility] [place] pt was discharged on VPA, zyprexa, haldol. 03/14/20 DC summary reviewed, pt discharged on zyprexa, haldol. pt unable to comprehend result, agitated not to be leaving today. 01/07: copy of court order on unit, will order meds accordingly today. no change in presentation. 01/08: Continue current regimen and plans 01/09: Continue current plans and regimen. Discontinue contingent IM Ativan if Depakote refused 01/10: Continue current regimen and plans. 01/11: DC VPA, start tegretol per pt preference. ativan 2 mg IM for refusal of tegretol. continue haldol PO/IM orders. improved from last week. less agitated, a bit more organized and engaging. 01/12: appears more disorganized again today, trouble engaging. refused PO meds last night but did take tegretol PO this morning. 01/13: continues disorganized, difficulty expressing himself. refusing PO meds since yesterday morning. slept 10 hours last night, however 01/14: intermittently taking meds PO versus IM. improved behavior from prior to med order, but remains floridly psychotic. continue current mgmt. 01/16/2023: No changes to current plan 01/17: more compliant with tegretol in recent days, still getting haldol IM. no change in presentation. continue current mgmt. 01/18: remains psychotic, labile. increase tegretol to 300 mg BID. 01/19: continues more aggressive and labile today. increase haldol to 10 BID with back-up IM of 7.5 mg. 01/20: more calm today,periods of agitation, however, in the past 24H. continue current mgmt. declines to change scheduled haldol to thorazine (proposed by MD in the hope he would in order to spare him the IMs). 01/21 continue tx. 01/22 writing for thorazine at bed- mr x1 and check ekg given other antipsychotics on board 01/23 agreed to ekg today, added 1pm dose of 5mg haldol 01/24: taking meds PO, still suffering from AH, possibly VH. perhaps trending more calm, but clearly still periods of agitation in the past several days. 01/25: labile, paranoid delusions. informed staff he experiences AH, mumbles recently. increase tegretol to 400 BID, make IR formulation as he has been chewing the pills. 01/26: more calm today. continue current mgmt. 01/27: continues more calm. some staff concerned for akathisia due to pacing and number of PRNs taken, but appears to be doing less walking than he had been before, does not appear restless or uncomfortable. continue current mgmt, check tegretol level 2 weeks after dose change (02/08). 01/28: stable presentation. intermittent sleep disturbance. continue current mgmt. 01/29: Continue current management. Benadryl for allergies 01/30: Continue current plan of care. 01/31: continues to ask for lots of PRNs. no change in presentation. 01/28 mild anemia and hyponatremia; trend. tegretol level 10.3. 02/01: series of abnormal and dynamic EKGs; today's WNL. cardiology consult requested for opinion. will start lithium pending cards opinion re EKG series. no change in presentation. 02/02: appreciate cardiology consultation and opinion. echocardiogram ordered. lithium started. appears better able to tolerate longer interaction today. 02/03: improved ability to tolerate social engagements continues. feels lithium has been helpful. akathisia likely. decrease haldol 02/10/10 to 5 BID and add thorazine 25 BID at 0900 and 1300. 02/04: clear uptick in psychotic.manic behavior yesterday after haldol dose decrease. eloped today. increase thorazine to 100/100/200 with PRNS available. 02/05: no concerning behaviors since elopement yesterday. refused PO haldol last night, otherwise med compliant. 02/06: med-compliant, no concerning behaviors. continue current mgmt. 02/07: check BMP along with lithium level. stable presentation. 02/08: CBC/BMP not concerning. lithium 0.6, tegretol 9.0. increase lithium dosing from 600 BID to 600/900 as of tonight. DC haldol entirely out of concerns for akathisia. invega not a great option due to tegretol interaction. start prolixin PO with IM back-up as alternative neuroleptic to haldol. 02/09: Continue current tx plan. 02/10: increase prolixin from 5 BID to 5 TID. otherwise continue current mgmt. 02/11: continue current mgmt. check labs jeferson of 02/13. 02/12: Continue current plan. Check labs in AM. 02/13: Continue current treatment plan. Li level 0.68, CMZ level 8.6 02/14: Continue current regimen and plans 02/15: increase lithium to 750/900. T/C increasing tegretol in near future as well. gradually seems to be improving. 02/16: stable. continue current mgmt. has broached feeling depressed the past couple of days. 02/17: Continue current tx plan. 02/18: check labs in several days. stable, Sx much improved from prior but still clearly psychotic. 02/20: no changes 02/21: continue current mgmt. check labs soon. still psychotic, endorsing AH. 02/22: no change in presentation. check lithium and tegretol levels tomorrow. 02/23: tegretol 8.3, lithium 0.96. increase tegretol from 400 BID to 400/600 as of tonight. c/o restlessness, concern for akathisia. will review neuroleptics regimen if Sx do not improve in next several days (as might be the case if his restlessness is residual dante). also, AH continue. 02/24: stable. continue current mgmt. assess Sx over next week, then check tegretol level. 02/25: better related, discussed his post-discharge plans. family meeting late next week. continue current regimen, check labs around 03/02. 02/26: Continue plan of care discharge planning 02/27: Patient can not continues much improved states he feels much better without drug use no psychosis. 02/28: +RIS, bizarrely ends interview with MD by just getting up and walking away without a look or a word. increase prolixin 5 TID to 7.5 TID for psychosis. otherwise continue current mgmt. 03/01: continue current mgmt. tired today, stayed in bed. 03/02: tired again, rouses himself to sit up for interview. latency of response, asks MD to repeat question once, but denies AH. continue current mgmt. 03/03: more up and about today. unconvincingly denies AH. continue current mgmt. check labs tonight. 03/04: labs reviewed with pt, that they are reassuring and medication levels are good. tegretol 9.6, lithium 0.76. continue current mgmt. Reason for continued inpatient stay Substantial Risk for: rapid decompensation Time Spent With Patient Time: Total time managing care of this patient today __25__ minutes.
[2023-03-04 18:00] VITALS: PULSE 81; RESP 18; TEMP 36.9; O2SAT 99
[2023-03-04] MEDS: chlorproMAZINE HCl 100 MG TABLET 200 MG PO (20:05)
[2023-03-04] MEDS: Lithium Carbonate ER 450 MG TABLET.ER 900 MG PO (20:25)
[2023-03-04] MEDS: carBAMazepine ER 200 MG TAB.ER.12H 600 MG PO (20:25)
[2023-03-05 08:45] VITALS: BP 134/76; PULSE 98; RESP 16; TEMP 37; O2SAT 98
[2023-03-05] MEDS: carBAMazepine 200 MG TABLET 400 MG PO (09:38)
[2023-03-05] MEDS: Thiamine HCL 100 MG TABLET PO (09:38)
[2023-03-05] MEDS: fluPHENAZine HCl 2.5 MG TABLET 7.5 MG PO ×3 (09:38→22:33)
[2023-03-05] MEDS: Lithium Carbonate ER 450 MG TABLET.ER PO (09:39)
[2023-03-05] MEDS: Lithium Carbonate ER 300 MG TABLET.ER PO (09:39)
[2023-03-05] MEDS: Benztropine Mesylate 1 MG TABLET PO ×2 (09:39→22:33)
[2023-03-05] MEDS: chlorproMAZINE HCl 100 MG TABLET PO ×3 (09:39→20:45)
[2023-03-05] MEDS: Folic Acid 1 MG TABLET PO (09:39)
--- NOTE | 2023-03-05 10:16 | P.PNPSI_ITS ---
Subjective Subjective Date of Service: 03/05/23 Reason For Visit: Psychosis Subjective Notes: Section 8 Interim History: Patient was seen and discussed in rounds today. Records and plans were reviewed. He is showing some signs of improvement with better response when approached. He is medication compliant. He is isolative with some pacing in the hallways but no social interactions. Slept up to 7 hours. No complaints or side effects. No changes were made Medication Compliance: Yes Side effects from medications: No Attending Groups: No Mental Status Exam Mental Status Exam Narrative: In today's visit he is alert, oriented and pleasant. Soft-spoken speech. Moderate eye contact. Affect is constricted. No overt signs of psychosis. No overt delusions. No SI. Cognitively he has slow thought processes. Judgment is mostly intact Diagnostics Vital Signs (24Hr): Vital Signs - 24 hr 03/04/23 18:00 Temperature 98.4 F Pulse Rate 81 Respiratory Rate 18 Pulse Oximetry 99 Oxygen Delivery Method Room Air BMI result Body Mass Index 28.7 Labs 03/03/23 20:10 03/03/23 20:10 Labs: Laboratory Results - last 48 hr 03/03/23 20:10 WBC 11.0 H RBC 4.40 L Hgb 13.4 L Hct 39.2 L MCV 89.1 MCH 30.5 MCHC 34.2 RDW 12.1 Plt Count 197 MPV 10.6 Immature Gran % (Auto) 1.1 H Neut % (Auto) 60.7 Lymph % (Auto) 20.2 [place] % (Auto) 8.4 Eos % (Auto) 8.8 H Baso % (Auto) 0.8 Lymph # (Auto) 2.2 [place] # (Auto) 0.9 Eos # (Auto) 1.0 H Baso # (Auto) 0.1 Abs Immat Gran (auto) 0.12 H Absolute Neuts (auto) 6.7 Absolute Nucleated RBC 0.000 Nucleated RBC % (auto) 0.0 Sodium 140 Potassium 4.7 Chloride 104 Carbon Dioxide 28 Anion Gap 13 BUN 15 Creatinine 1.18 Estim Creat Clear Calc 108.8 Estimated GFR > 60 Random Glucose 117 H Calcium 10.1 Total Bilirubin 0.2 Direct Bilirubin < 0.2 AST 13 ALT 18 Alkaline Phosphatase 65 Total Protein 7.1 Albumin 4.7 Carbamazepine 9.6 [place] 0.76 Medications Medications Current Medications Acetaminophen (Acetaminophen 325 Mg Tablet) 650 mg PO Q6H PRN PRN Reason: Headache/Pain Mild Scale (1-3) Last Admin: 02/25/23 20:13 Dose: 650 mg Al Hydroxide/Mg Hydroxide (Magnesium Hydrox/Alum Hydrox 30 Ml Oral.Susp) 30 ml PO Q6H PRN PRN Reason: Heartburn/Nausea Last Admin: 01/29/23 22:57 Dose: 30 ml Benzocaine (Throat Lozenge, Medicated Lozenge) 1 lozenge MUCOUS MEM Q2H PRN PRN Reason: Sore Throat Last Admin: 02/07/23 21:47 Dose: 1 lozenge Benztropine Mesylate (Benztropine Mesylate 1 Mg Tablet) 1 mg PO BID [facility] Last Admin: 03/05/23 09:39 Dose: 1 mg Carbamazepine (Carbamazepine 200 Mg Tablet) 400 mg PO DAILY [facility] Last Admin: 03/05/23 09:38 Dose: 400 mg Carbamazepine (Carbamazepine Er 200 Mg Tab.Er.12h) 600 mg PO BEDTIME [facility] Last Admin: 03/04/23 20:25 Dose: 600 mg Chlorpromazine HCl (Chlorpromazine Hcl 100 Mg Tablet) 200 mg PO BEDTIME [facility] Last Admin: 03/04/23 20:05 Dose: 200 mg Chlorpromazine HCl (Chlorpromazine Hcl 100 Mg Tablet) 100 mg PO BID@0900,1300 [facility] Last Admin: 03/05/23 09:39 Dose: 100 mg Chlorpromazine HCl (Chlorpromazine Hcl 100 Mg Tablet) 100 mg PO Q4H PRN PRN Reason: agitation/anxiety Last Admin: 03/01/23 19:05 Dose: 100 mg Clonidine HCl (Clonidine Hcl 0.1 Mg Tablet) 0.1 mg PO Q2H PRN; Protocol PRN Reason: agitation/signs of opioid withdrawal Last Admin: 02/15/23 19:47 Dose: 0.1 mg Diphenhydramine HCl (Diphenhydramine Hcl 25 Mg Capsule) 50 mg PO Q6H PRN PRN Reason: Allergic Symptoms Last Admin: 03/03/23 19:48 Dose: 50 mg Fluphenazine HCl (Fluphenazine Hcl 2.5 Mg/Ml 10 Ml Vial) 5 mg IM TID PRN PRN Reason: refusal of PO fluphenazine Fluphenazine HCl (Fluphenazine Hcl 2.5 Mg Tablet) 7.5 mg PO TID [facility] Last Admin: 03/05/23 09:38 Dose: 7.5 mg Folic Acid (Folic Acid 1 Mg Tablet) 1 mg PO DAILY [facility] Last Admin: 03/05/23 09:39 Dose: 1 mg [place] Carbonate ([place] Carbonate Er 450 Mg Tablet.Er) 900 mg PO BEDTIME [facility] Last Admin: 03/04/23 20:25 Dose: 900 mg [place] Carbonate ([place] Carbonate Er 300 Mg Tablet.Er) 300 mg PO DAILY [facility] Last Admin: 03/05/23 09:39 Dose: 300 mg [place] Carbonate ([place] Carbonate Er 450 Mg Tablet.Er) 450 mg PO DAILY [facility] Last Admin: 03/05/23 09:39 Dose: 450 mg Magnesium Hydroxide (Milk Of Magnesia 30 Ml Oral.Susp) 30 ml PO DAILY PRN PRN Reason: Constipation Multi-Ingred Cream/Lotion/Oil/Oint (Mineral Oil/Petrolatum,White 106 Gm Tube) 1 appl TOPICAL BID [facility]; Protocol Last Admin: 03/05/23 10:04 Dose: Not Given Nicotine (Nicotine 21 Mg Patch.Td24) 21 mg TRANSDERMA DAILY PRN PRN Reason: smoking cessation Last Admin: 01/15/23 16:06 Dose: 21 mg Nicotine Polacrilex (Nicotine Polacrilex 2 Mg Gum) 4 mg BUCCAL Q2H PRN PRN Reason: nicotine cravings Last Admin: 02/09/23 11:45 Dose: 4 mg Ondansetron HCl (Ondansetron Odt 4 Mg Tab.Rapdis) 4 mg TRANSLINGU Q6H PRN PRN Reason: Nausea and Vomiting Last Admin: 01/28/23 14:44 Dose: 4 mg Thiamine HCl (Thiamine Hcl 100 Mg Tablet) 100 mg PO DAILY [facility] Last Admin: 03/05/23 09:38 Dose: 100 mg Trazodone HCl (Trazodone Hcl 50 Mg Tablet) 50 mg PO BEDTIME MRX1 PRN PRN Reason: Insomnia Last Admin: 02/12/23 20:55 Dose: 50 mg Allergies Allergies Allergy/AdvReac Type Severity Reaction Status Date / Time morphine [MORPHINE] AdvReac Unknown NAUSEA Verified 12/10/22 19:56 Assessment & Plan Assessment & Plan (1) Nonspecific ST-T wave electrocardiographic changes: Status: Acute Code(s): R94.31 - Abnormal electrocardiogram [ECG] [EKG] (2) Cocaine use disorder: Status: Acute Code(s): F14.10 - Cocaine abuse, uncomplicated (3) Schizoaffective disorder, bipolar type: Status: Acute Code(s): F25.0 - Schizoaffective disorder, bipolar type (4) Opioid use disorder: Status: Acute Code(s): F11.90 - Opioid use, unspecified, uncomplicated Plan 12/24: attempt to give anti-psychotics. comfort meds for opioid and cocaine withdrawal. 12/25: refusing medications. period of agitation last night slamming doors and yelling (presumably @). continue current mgmt. 12/26: refusing meds. binging and purging. floridly psychotic. 12/27: had meds last night for sleep, per his request. schedule all haldol tonight with ativan and cogentin. a bit more interactive today, remains delayed and distracted. no binging/purging behaviors or agitated behaviors described by RN report today. 12/28: refused meds last night. Today asks for meds for sx mgt- aggressive today- threw two coffee cups. Begin Depakote 250 mg bid. 12/29: got multiple meds last NOC and overnight per his request. slept 2 hours. refusing meds this morning. commitment paperwork completed. 3-day notice expires tomorrow. c/o opioid craving, asked for methadone. methadone 30 mg daily started today. 12/30: filed for commitment today. haldol and ativan per his request last night. appears in disbelief that he will not be discharged today. 12/31: demanding to leave, getting agitated, banging on nursing station, slamming doors in his room. given IMs x 2, haldol 10 ativan 2 benadryl 50 for first and thorazine 100 for second. 01/01: Remains unpredictable and irritable. Refusing scheduled medications. Section 7/ filed. 01/02: Continue current management. 01/03: refusing meds. irritable, labile. periods of agitation. continue current mgmt, awaiting hearing for . 01/04: refusing meds. irritable, labile. periods of agitation. continue current mgmt, though pt is refusing meds. 01/05: thought-blocked. denies mental illness or need for medications. offer medications. hearing tomorrow. 01/06: committed and ordered medications at hearing. 06[place] [facility] [place] pt was discharged on VPA, zyprexa, haldol. 03/14/20 DC summary reviewed, pt discharged on zyprexa, haldol. pt unable to comprehend result, agitated not to be leaving today. 01/07: copy of court order on unit, will order meds accordingly today. no change in presentation. 01/08: Continue current regimen and plans 01/09: Continue current plans and regimen. Discontinue contingent IM Ativan if Depakote refused 01/10: Continue current regimen and plans. 01/11: DC VPA, start tegretol per pt preference. ativan 2 mg IM for refusal of tegretol. continue haldol PO/IM orders. improved from last week. less agitated, a bit more organized and engaging. 01/12: appears more disorganized again today, trouble engaging. refused PO meds last night but did take tegretol PO this morning. 01/13: continues disorganized, difficulty expressing himself. refusing PO meds since yesterday morning. slept 10 hours last night, however 01/14: intermittently taking meds PO versus IM. improved behavior from prior to med order, but remains floridly psychotic. continue current mgmt. 01/16/2023: No changes to current plan 01/17: more compliant with tegretol in recent days, still getting haldol IM. no change in presentation. continue current mgmt. 01/18: remains psychotic, labile. increase tegretol to 300 mg BID. 01/19: continues more aggressive and labile today. increase haldol to 10 BID with back-up IM of 7.5 mg. 01/20: more calm today,periods of agitation, however, in the past 24H. continue current mgmt. declines to change scheduled haldol to thorazine (proposed by MD in the hope he would in order to spare him the IMs). 01/21 continue tx. 01/22 writing for thorazine at bed- mr x1 and check ekg given other antipsychotics on board 01/23 agreed to ekg today, added 1pm dose of 5mg haldol 01/24: taking meds PO, still suffering from AH, possibly VH. perhaps trending more calm, but clearly still periods of agitation in the past several days. 01/25: labile, paranoid delusions. informed staff he experiences AH, mumbles recently. increase tegretol to 400 BID, make IR formulation as he has been chewing the pills. 01/26: more calm today. continue current mgmt. 01/27: continues more calm. some staff concerned for akathisia due to pacing and number of PRNs taken, but appears to be doing less walking than he had been before, does not appear restless or uncomfortable. continue current mgmt, check tegretol level 2 weeks after dose change (02/08). 01/28: stable presentation. intermittent sleep disturbance. continue current mgmt. 01/29: Continue current management. Benadryl for allergies 01/30: Continue current plan of care. 01/31: continues to ask for lots of PRNs. no change in presentation. 01/28 mild anemia and hyponatremia; trend. tegretol level 10.3. 02/01: series of abnormal and dynamic EKGs; today's WNL. cardiology consult requested for opinion. will start lithium pending cards opinion re EKG series. no change in presentation. 02/02: appreciate cardiology consultation and opinion. echocardiogram ordered. lithium started. appears better able to tolerate longer interaction today. 02/03: improved ability to tolerate social engagements continues. feels lithium has been helpful. akathisia likely. decrease haldol 02/10/10 to 5 BID and add thorazine 25 BID at 0900 and 1300. 02/04: clear uptick in psychotic.manic behavior yesterday after haldol dose decrease. eloped today. increase thorazine to 100/100/200 with PRNS available. 02/05: no concerning behaviors since elopement yesterday. refused PO haldol last night, otherwise med compliant. 02/06: med-compliant, no concerning behaviors. continue current mgmt. 02/07: check BMP along with lithium level. stable presentation. 02/08: CBC/BMP not concerning. lithium 0.6, tegretol 9.0. increase lithium dosing from 600 BID to 600/900 as of tonight. DC haldol entirely out of concerns for akathisia. invega not a great option due to tegretol interaction. start prolixin PO with IM back-up as alternative neuroleptic to haldol. 02/09: Continue current tx plan. 02/10: increase prolixin from 5 BID to 5 TID. otherwise continue current mgmt. 02/11: continue current mgmt. check labs jeferson of 02/13. 02/12: Continue current plan. Check labs in AM. 02/13: Continue current treatment plan. Li level 0.68, CMZ level 8.6 02/14: Continue current regimen and plans 02/15: increase lithium to 750/900. T/C increasing tegretol in near future as well. gradually seems to be improving. 02/16: stable. continue current mgmt. has broached feeling depressed the past couple of days. 02/17: Continue current tx plan. 02/18: check labs in several days. stable, Sx much improved from prior but still clearly psychotic. 02/20: no changes 02/21: continue current mgmt. check labs soon. still psychotic, endorsing AH. 02/22: no change in presentation. check lithium and tegretol levels tomorrow. 02/23: tegretol 8.3, lithium 0.96. increase tegretol from 400 BID to 400/600 as of tonight. c/o restlessness, concern for akathisia. will review neuroleptics regimen if Sx do not improve in next several days (as might be the case if his restlessness is residual dante). also, AH continue. 02/24: stable. continue current mgmt. assess Sx over next week, then check tegretol level. 02/25: better related, discussed his post-discharge plans. family meeting late next week. continue current regimen, check labs around 03/02. 02/26: Continue plan of care discharge planning 02/27: Patient can not continues much improved states he feels much better without drug use no psychosis. 02/28: +RIS, bizarrely ends interview with MD by just getting up and walking away without a look or a word. increase prolixin 5 TID to 7.5 TID for psychosis. otherwise continue current mgmt. 03/01: continue current mgmt. tired today, stayed in bed. 03/02: tired again, rouses himself to sit up for interview. latency of response, asks MD to repeat question once, but denies AH. continue current mgmt. 03/03: more up and about today. unconvincingly denies AH. continue current mgmt. check labs tonight. 03/04: labs reviewed with pt, that they are reassuring and medication levels are good. tegretol 9.6, lithium 0.76. continue current mgmt. 03/05: Continue current regimen and plans. Reason for continued inpatient stay Substantial Risk for: med/psych decompensation Time Spent With Patient Time: Total time managing care of this patient today ____ minutes.
[2023-03-05 20:13] VITALS: BP 118/61; PULSE 83; RESP 18; TEMP 36.9; O2SAT 99
[2023-03-05] MEDS: carBAMazepine ER 200 MG TAB.ER.12H 600 MG PO (22:33)
[2023-03-05] MEDS: Lithium Carbonate ER 450 MG TABLET.ER 900 MG PO (22:33)
[2023-03-05] MEDS: diphenhydrAMINE HCL 25 MG CAPSULE 50 MG PO (22:33)
[2023-03-05] MEDS: chlorproMAZINE HCl 100 MG TABLET 200 MG PO (22:42)
[2023-03-06 08:29] VITALS: BP 137/59; PULSE 80; RESP 16; TEMP 36.3; O2SAT 96
[2023-03-06] MEDS: chlorproMAZINE HCl 100 MG TABLET PO ×2 (09:09→13:43)
[2023-03-06] MEDS: fluPHENAZine HCl 2.5 MG TABLET 7.5 MG PO ×3 (09:09→22:12)
[2023-03-06] MEDS: carBAMazepine 200 MG TABLET 400 MG PO (09:09)
[2023-03-06] MEDS: Thiamine HCL 100 MG TABLET PO (09:09)
[2023-03-06] MEDS: Lithium Carbonate ER 450 MG TABLET.ER PO (09:09)
[2023-03-06] MEDS: Lithium Carbonate ER 300 MG TABLET.ER PO (09:09)
[2023-03-06] MEDS: Folic Acid 1 MG TABLET PO (09:09)
[2023-03-06] MEDS: Benztropine Mesylate 1 MG TABLET PO ×2 (09:09→22:13)
--- NOTE | 2023-03-06 09:17 | HO.PSYCHPN ---
Subjective Subjective Date of Service: 03/06/23 Reason For Visit: Psychosis Subjective Notes: Section 8 Interim History: Patient was seen and discussed in rounds today. Records and plans were reviewed. He doing better and has been compliant with his treatment and medications. Continues to be responding to internal stimuli. No SI. He is cooperative. No complaints or side effects. No changes were made. He continues to be mostly isolative and on the fringes Medication Compliance: Yes Side effects from medications: No Attending Groups: No Review of Systems Review of Systems Yes all other systems are reviewed and are negative Mental Status Exam Mental Status Exam Narrative: In today's visit he is alert, oriented and pleasant. Soft-spoken speech. Moderate eye contact. Affect is constricted. No overt signs of psychosis. No overt delusions. No SI. Cognitively he has slow thought processes. Judgment is mostly intact Diagnostics Vital Signs (24Hr): Vital Signs - 24 hr 03/05/23 20:13 03/06/23 08:29 Temperature 98.5 F 97.3 F Pulse Rate 83 80 Respiratory Rate 18 16 Blood Pressure 118/61 137/59 L Pulse Oximetry 99 96 Oxygen Delivery Method Room Air Room Air BMI result Body Mass Index 28.7 Labs 03/03/23 20:10 03/03/23 20:10 Medications Medications Current Medications Acetaminophen (Acetaminophen 325 Mg Tablet) 650 mg PO Q6H PRN PRN Reason: Headache/Pain Mild Scale (1-3) Last Admin: 02/25/23 20:13 Dose: 650 mg Al Hydroxide/Mg Hydroxide (Magnesium Hydrox/Alum Hydrox 30 Ml Oral.Susp) 30 ml PO Q6H PRN PRN Reason: Heartburn/Nausea Last Admin: 01/29/23 22:57 Dose: 30 ml Benzocaine (Throat Lozenge, Medicated Lozenge) 1 lozenge MUCOUS MEM Q2H PRN PRN Reason: Sore Throat Last Admin: 02/07/23 21:47 Dose: 1 lozenge Benztropine Mesylate (Benztropine Mesylate 1 Mg Tablet) 1 mg PO BID [facility] Last Admin: 03/06/23 09:09 Dose: 1 mg Carbamazepine (Carbamazepine 200 Mg Tablet) 400 mg PO DAILY [facility] Last Admin: 03/06/23 09:09 Dose: 400 mg Carbamazepine (Carbamazepine Er 200 Mg Tab.Er.12h) 600 mg PO BEDTIME [facility] Last Admin: 03/05/23 22:33 Dose: 600 mg Chlorpromazine HCl (Chlorpromazine Hcl 100 Mg Tablet) 200 mg PO BEDTIME [facility] Last Admin: 03/05/23 22:42 Dose: 200 mg Chlorpromazine HCl (Chlorpromazine Hcl 100 Mg Tablet) 100 mg PO BID@0900,1300 [facility] Last Admin: 03/06/23 09:09 Dose: 100 mg Chlorpromazine HCl (Chlorpromazine Hcl 100 Mg Tablet) 100 mg PO Q4H PRN PRN Reason: agitation/anxiety Last Admin: 03/05/23 20:45 Dose: 100 mg Clonidine HCl (Clonidine Hcl 0.1 Mg Tablet) 0.1 mg PO Q2H PRN; Protocol PRN Reason: agitation/signs of opioid withdrawal Last Admin: 02/15/23 19:47 Dose: 0.1 mg Diphenhydramine HCl (Diphenhydramine Hcl 25 Mg Capsule) 50 mg PO Q6H PRN PRN Reason: Allergic Symptoms Last Admin: 03/05/23 22:33 Dose: 50 mg Fluphenazine HCl (Fluphenazine Hcl 2.5 Mg/Ml 10 Ml Vial) 5 mg IM TID PRN PRN Reason: refusal of PO fluphenazine Fluphenazine HCl (Fluphenazine Hcl 2.5 Mg Tablet) 7.5 mg PO TID [facility] Last Admin: 03/06/23 09:09 Dose: 7.5 mg Folic Acid (Folic Acid 1 Mg Tablet) 1 mg PO DAILY [facility] Last Admin: 03/06/23 09:09 Dose: 1 mg [place] Carbonate ([place] Carbonate Er 450 Mg Tablet.Er) 900 mg PO BEDTIME [facility] Last Admin: 03/05/23 22:33 Dose: 900 mg [place] Carbonate ([place] Carbonate Er 300 Mg Tablet.Er) 300 mg PO DAILY [facility] Last Admin: 03/06/23 09:09 Dose: 300 mg [place] Carbonate ([place] Carbonate Er 450 Mg Tablet.Er) 450 mg PO DAILY [facility] Last Admin: 03/06/23 09:09 Dose: 450 mg Magnesium Hydroxide (Milk Of Magnesia 30 Ml Oral.Susp) 30 ml PO DAILY PRN PRN Reason: Constipation Multi-Ingred Cream/Lotion/Oil/Oint (Mineral Oil/Petrolatum,White 106 Gm Tube) 1 appl TOPICAL BID [facility]; Protocol Last Admin: 03/05/23 22:47 Dose: Not Given Nicotine (Nicotine 21 Mg Patch.Td24) 21 mg TRANSDERMA DAILY PRN PRN Reason: smoking cessation Last Admin: 01/15/23 16:06 Dose: 21 mg Nicotine Polacrilex (Nicotine Polacrilex 2 Mg Gum) 4 mg BUCCAL Q2H PRN PRN Reason: nicotine cravings Last Admin: 02/09/23 11:45 Dose: 4 mg Ondansetron HCl (Ondansetron Odt 4 Mg Tab.Rapdis) 4 mg TRANSLINGU Q6H PRN PRN Reason: Nausea and Vomiting Last Admin: 01/28/23 14:44 Dose: 4 mg Thiamine HCl (Thiamine Hcl 100 Mg Tablet) 100 mg PO DAILY [facility] Last Admin: 03/06/23 09:09 Dose: 100 mg Trazodone HCl (Trazodone Hcl 50 Mg Tablet) 50 mg PO BEDTIME [facility]1 PRN PRN Reason: Insomnia Last Admin: 02/12/23 20:55 Dose: 50 mg Allergies Allergies Allergy/AdvReac Type Severity Reaction Status Date / Time morphine [MORPHINE] AdvReac Unknown NAUSEA Verified 12/10/22 19:56 Assessment & Plan Assessment & Plan (1) Nonspecific ST-T wave electrocardiographic changes: Status: Acute Code(s): R94.31 - Abnormal electrocardiogram [ECG] [EKG] (2) Cocaine use disorder: Status: Acute Code(s): F14.10 - Cocaine abuse, uncomplicated (3) Schizoaffective disorder, bipolar type: Status: Acute Code(s): F25.0 - Schizoaffective disorder, bipolar type (4) Opioid use disorder: Status: Acute Code(s): F11.90 - Opioid use, unspecified, uncomplicated Plan 12/24: attempt to give anti-psychotics. comfort meds for opioid and cocaine withdrawal. 12/25: refusing medications. period of agitation last night slamming doors and yelling (presumably @). continue current mgmt. 12/26: refusing meds. binging and purging. floridly psychotic. 12/27: had meds last night for sleep, per his request. schedule all haldol tonight with ativan and cogentin. a bit more interactive today, remains delayed and distracted. no binging/purging behaviors or agitated behaviors described by RN report today. 12/28: refused meds last night. Today asks for meds for sx mgt- aggressive today-threw two coffee cups. Begin Depakote 250 mg bid. 12/29: got multiple meds last NOC and overnight per his request. slept 2 hours. refusing meds this morning. commitment paperwork completed. 3-day notice expires tomorrow. c/o opioid craving, asked for methadone. methadone 30 mg daily started today. 12/30: filed for commitment today. haldol and ativan per his request last night. appears in disbelief that he will not be discharged today. 12/31: demanding to leave, getting agitated, banging on nursing station, slamming doors in his room. given IMs x 2, haldol 10 ativan 2 benadryl 50 for first and thorazine 100 for second. 01/01: Remains unpredictable and irritable. Refusing scheduled medications. Section 7/ filed. 01/02: Continue current management. 01/03: refusing meds. irritable, labile. periods of agitation. continue current mgmt, awaiting hearing for . 01/04: refusing meds. irritable, labile. periods of agitation. continue current mgmt, though pt is refusing meds. 01/05: thought-blocked. denies mental illness or need for medications. offer medications. hearing tomorrow. 01/06: committed and ordered medications at hearing. 06/12/20 [facility] DC summary reviewd, pt was discharged on VPA, zyprexa, haldol. 03/14/20 DC summary reviewed, pt discharged on zyprexa, haldol. pt unable to comprehend result, agitated not to be leaving today. 01/07: copy of court order on unit, will order meds accordingly today. no change in presentation. 01/08: Continue current regimen and plans 01/09: Continue current plans and regimen. Discontinue contingent IM Ativan if Depakote refused 01/10: Continue current regimen and plans. 01/11: DC VPA, start tegretol per pt preference. ativan 2 mg IM for refusal of tegretol. continue haldol PO/IM orders. improved from last week. less agitated, a bit more organized and engaging. 9/6: appears more disorganized again today, trouble engaging. refused PO meds last night but did take tegretol PO this morning. 01/13: continues disorganized, difficulty expressing himself. refusing PO meds since yesterday morning. slept 10 hours last night, however 01/14: intermittently taking meds PO versus IM. improved behavior from prior to med order, but remains floridly psychotic. continue current mgmt. 01/16/2023: No changes to current plan 01/17: more compliant with tegretol in recent days, still getting haldol IM. no change in presentation. continue current mgmt. 01/18: remains psychotic, labile. increase tegretol to 300 mg BID. 01/19: continues more aggressive and labile today. increase haldol to 10 BID with back-up IM of 7.5 mg. 01/20: more calm today,periods of agitation, however, in the past 24H. continue current mgmt. declines to change scheduled haldol to thorazine (proposed by MD in the hope he would in order to spare him the IMs). 01/21 continue tx. 01/22 writing for thorazine at bed- mr x1 and check ekg given other antipsychotics on board 01/23 agreed to ekg today, added 1pm dose of 5mg haldol 01/24: taking meds PO, still suffering from AH, possibly VH. perhaps trending more calm, but clearly still periods of agitation in the past several days. 01/25: labile, paranoid delusions. informed staff he experiences AH, mumbles recently. increase tegretol to 400 BID, make IR formulation as he has been chewing the pills. 01/26: more calm today. continue current mgmt. 01/27: continues more calm. some staff concerned for akathisia due to pacing and number of PRNs taken, but appears to be doing less walking than he had been before, does not appear restless or uncomfortable. continue current mgmt, check tegretol level 2 weeks after dose change (02/08). 01/28: stable presentation. intermittent sleep disturbance. continue current mgmt. 01/29: Continue current management. Benadryl for allergies 01/30: Continue current plan of care. 01/31: continues to ask for lots of PRNs. no change in presentation. 01/28 mild anemia and hyponatremia; trend. tegretol level 10.3. 02/01: series of abnormal and dynamic EKGs; today's WNL. cardiology consult requested for opinion. will start lithium pending cards opinion re EKG series. no change in presentation. 02/02: appreciate cardiology consultation and opinion. echocardiogram ordered. lithium started. appears better able to tolerate longer interaction today. 02/03: improved ability to tolerate social engagements continues. feels lithium has been helpful. akathisia likely. decrease haldol 02/10/10 to 5 BID and add thorazine 25 BID at 0900 and 1300. 02/04: clear uptick in psychotic.manic behavior yesterday after haldol dose decrease. eloped today. increase thorazine to 100/100/200 with PRNS available. 02/05: no concerning behaviors since elopement yesterday. refused PO haldol last night, otherwise med compliant. 02/06: med-compliant, no concerning behaviors. continue current mgmt. 02/07: check BMP along with lithium level. stable presentation. 02/08: CBC/BMP not concerning. lithium 0.6, tegretol 9.0. increase lithium dosing from 600 BID to 600/900 as of tonight. DC haldol entirely out of concerns for akathisia. invega not a great option due to tegretol interaction. start prolixin PO with IM back-up as alternative neuroleptic to haldol. 02/09: Continue current tx plan. 02/10: increase prolixin from 5 BID to 5 TID. otherwise continue current mgmt. 02/11: continue current mgmt. check labs jeferson of 02/13. 02/12: Continue current plan. Check labs in AM. 02/13: Continue current treatment plan. Li level 0.68, CMZ level 8.6 02/14: Continue current regimen and plans 02/15: increase lithium to 750/900. T/C increasing tegretol in near future as well. gradually seems to be improving. 02/16: stable. continue current mgmt. has broached feeling depressed the past couple of days. 02/17: Continue current tx plan. 02/18: check labs in several days. stable, Sx much improved from prior but still clearly psychotic. 02/20: no changes 02/21: continue current mgmt. check labs soon. still psychotic, endorsing AH. 02/22: no change in presentation. check lithium and tegretol levels tomorrow. 02/23: tegretol 8.3, lithium 0.96. increase tegretol from 400 BID to 400/600 as of tonight. c/o restlessness, concern for akathisia. will review neuroleptics regimen if Sx do not improve in next several days (as might be the case if his restlessness is residual dante). also, AH continue. 02/24: stable. continue current mgmt. assess Sx over next week, then check tegretol level. 02/25: better related, discussed his post-discharge plans. family meeting late next week. continue current regimen, check labs around 03/02. 02/26: Continue plan of care discharge planning 02/27: Patient can not continues much improved states he feels much better without drug use no psychosis. 02/28: +RIS, bizarrely ends interview with MD by just getting up and walking away without a look or a word. increase prolixin 5 TID to 7.5 TID for psychosis. otherwise continue current mgmt. 03/01: continue current mgmt. tired today, stayed in bed. 03/02: tired again, rouses himself to sit up for interview. latency of response, asks MD to repeat question once, but denies AH. continue current mgmt. 03/03: more up and about today. unconvincingly denies AH. continue current mgmt. check labs tonight. 03/04: labs reviewed with pt, that they are reassuring and medication levels are good. tegretol 9.6, lithium 0.76. continue current mgmt. 03/05: Continue current regimen and plans. 03/06: Continue current plans and regimen Reason for continued inpatient stay Substantial Risk for: med/psych decompensation Time Spent With Patient Time: Total time managing care of this patient today ____ minutes.
[2023-03-06 19:55] VITALS: BP 127/79; PULSE 96; RESP 16; TEMP 36.4; O2SAT 98
[2023-03-06] MEDS: chlorproMAZINE HCl 100 MG TABLET 200 MG PO (22:12)
[2023-03-06] MEDS: Lithium Carbonate ER 450 MG TABLET.ER 900 MG PO (22:13)
[2023-03-06] MEDS: carBAMazepine ER 200 MG TAB.ER.12H 600 MG PO (22:13)
[2023-03-07 07:05] VITALS: BP 123/76; PULSE 76; TEMP 36.8; O2SAT 99
[2023-03-07] MEDS: Thiamine HCL 100 MG TABLET PO (08:48)
[2023-03-07] MEDS: Benztropine Mesylate 1 MG TABLET PO ×2 (08:48→20:41)
[2023-03-07] MEDS: carBAMazepine 200 MG TABLET 400 MG PO (08:48)
[2023-03-07] MEDS: Lithium Carbonate ER 450 MG TABLET.ER PO (08:48)
[2023-03-07] MEDS: chlorproMAZINE HCl 100 MG TABLET PO ×2 (08:48→13:35)
[2023-03-07] MEDS: Folic Acid 1 MG TABLET PO (08:48)
[2023-03-07] MEDS: Lithium Carbonate ER 300 MG TABLET.ER PO (08:49)
[2023-03-07] MEDS: fluPHENAZine HCl 2.5 MG TABLET 7.5 MG PO ×3 (08:49→20:42)
--- NOTE | 2023-03-07 15:33 | P.PNPSI_ITS ---
Subjective Subjective Date of Service: 03/07/23 Reason For Visit: Psychosis Interim History: seen while eating lunch. irritable, says you picked the wrong time! i'm eating! MD excused himself from interview shortly after. per staff, slept well overnight. taking fewer thorazine PRNs. tuesday RIS. elopement attempt. Mental Status Exam Mental Status Exam Narrative: adequately dressed and groomed. up and about the unit. not cooperative. linear, logical. guarded, vague. affect constricted, irritable, no SI/HI/AVH expressed. Diagnostics Vital Signs (24Hr): Vital Signs - 24 hr 03/06/23 19:55 03/07/23 07:05 Temperature 97.5 F 98.3 F Pulse Rate 96 76 Respiratory Rate 16 Blood Pressure 127/79 123/76 Pulse Oximetry 98 99 Oxygen Delivery Method Room Air Room Air BMI result Body Mass Index 28.7 Labs 03/03/23 20:10 03/03/23 20:10 Medications Medications Current Medications Acetaminophen (Acetaminophen 325 Mg Tablet) 650 mg PO Q6H PRN PRN Reason: Headache/Pain Mild Scale (1-3) Last Admin: 02/25/23 20:13 Dose: 650 mg Al Hydroxide/Mg Hydroxide (Magnesium Hydrox/Alum Hydrox 30 Ml Oral.Susp) 30 ml PO Q6H PRN PRN Reason: Heartburn/Nausea Last Admin: 01/29/23 22:57 Dose: 30 ml Benzocaine (Throat Lozenge, Medicated Lozenge) 1 lozenge MUCOUS MEM Q2H PRN PRN Reason: Sore Throat Last Admin: 02/07/23 21:47 Dose: 1 lozenge Benztropine Mesylate (Benztropine Mesylate 1 Mg Tablet) 1 mg PO BID LEONOR Last Admin: 03/07/23 08:48 Dose: 1 mg Carbamazepine (Carbamazepine 200 Mg Tablet) 400 mg PO DAILY [facility]ON[facility] Last Admin: 03/07/23 08:48 Dose: 400 mg Carbamazepine (Carbamazepine Er 200 Mg Tab.Er.12h) 600 mg PO BEDTIME [facility]ON[facility] Last Admin: 03/06/23 22:13 Dose: 600 mg Chlorpromazine HCl (Chlorpromazine Hcl 100 Mg Tablet) 200 mg PO BEDTIME [facility] Last Admin: 03/06/23 22:12 Dose: 200 mg Chlorpromazine HCl (Chlorpromazine Hcl 100 Mg Tablet) 100 mg PO BID@0900,1300 [facility] Last Admin: 03/07/23 13:35 Dose: 100 mg Chlorpromazine HCl (Chlorpromazine Hcl 100 Mg Tablet) 100 mg PO Q4H PRN PRN Reason: agitation/anxiety Last Admin: 03/05/23 20:45 Dose: 100 mg Clonidine HCl (Clonidine Hcl 0.1 Mg Tablet) 0.1 mg PO Q2H PRN; Protocol PRN Reason: agitation/signs of opioid withdrawal Last Admin: 02/15/23 19:47 Dose: 0.1 mg Diphenhydramine HCl (Diphenhydramine Hcl 25 Mg Capsule) 50 mg PO Q6H PRN PRN Reason: Allergic Symptoms Last Admin: 03/05/23 22:33 Dose: 50 mg Fluphenazine HCl (Fluphenazine Hcl 2.5 Mg/Ml 10 Ml Vial) 5 mg IM TID PRN PRN Reason: refusal of PO fluphenazine Fluphenazine HCl (Fluphenazine Hcl 2.5 Mg Tablet) 7.5 mg PO TID [facility] Last Admin: 03/07/23 15:19 Dose: 7.5 mg Folic Acid (Folic Acid 1 Mg Tablet) 1 mg PO DAILY [facility] Last Admin: 03/07/23 08:48 Dose: 1 mg [place] Carbonate ([place] Carbonate Er 450 Mg Tablet.Er) 900 mg PO BEDTIME [facility] Last Admin: 03/06/23 22:13 Dose: 900 mg [place] Carbonate ([place] Carbonate Er 300 Mg Tablet.Er) 300 mg PO DAILY [facility] Last Admin: 03/07/23 08:49 Dose: 300 mg [place] Carbonate ([place] Carbonate Er 450 Mg Tablet.Er) 450 mg PO DAILY [facility] Last Admin: 03/07/23 08:48 Dose: 450 mg Magnesium Hydroxide (Milk Of Magnesia 30 Ml Oral.Susp) 30 ml PO DAILY PRN PRN Reason: Constipation Multi-Ingred Cream/Lotion/Oil/Oint (Mineral Oil/Petrolatum,White 106 Gm Tube) 1 appl TOPICAL BID [facility]; Protocol Last Admin: 03/07/23 08:51 Dose: Not Given Nicotine (Nicotine 21 Mg Patch.Td24) 21 mg TRANSDERMA DAILY PRN PRN Reason: smoking cessation Last Admin: 01/15/23 16:06 Dose: 21 mg Nicotine Polacrilex (Nicotine Polacrilex 2 Mg Gum) 4 mg BUCCAL Q2H PRN PRN Reason: nicotine cravings Last Admin: 02/09/23 11:45 Dose: 4 mg Ondansetron HCl (Ondansetron Odt 4 Mg Tab.Rapdis) 4 mg TRANSLINGU Q6H PRN PRN Reason: Nausea and Vomiting Last Admin: 01/28/23 14:44 Dose: 4 mg Thiamine HCl (Thiamine Hcl 100 Mg Tablet) 100 mg PO DAILY [facility]ON[facility] Last Admin: 03/07/23 08:48 Dose: 100 mg Trazodone HCl (Trazodone Hcl 50 Mg Tablet) 50 mg PO BEDTIME MRX1 PRN PRN Reason: Insomnia Last Admin: 02/12/23 20:55 Dose: 50 mg Allergies Allergies Allergy/AdvReac Type Severity Reaction Status Date / Time morphine [MORPHINE] AdvReac Unknown NAUSEA Verified 12/10/22 19:56 Assessment & Plan Assessment & Plan (1) Nonspecific ST-T wave electrocardiographic changes: Status: Acute Code(s): R94.31 - Abnormal electrocardiogram [ECG] [EKG] (2) Cocaine use disorder: Status: Acute Code(s): F14.10 - Cocaine abuse, uncomplicated (3) Schizoaffective disorder, bipolar type: Status: Acute Code(s): F25.0 - Schizoaffective disorder, bipolar type (4) Opioid use disorder: Status: Acute Code(s): F11.90 - Opioid use, unspecified, uncomplicated Plan 12/24: attempt to give anti-psychotics. comfort meds for opioid and cocaine withdrawal. 12/25: refusing medications. period of agitation last night slamming doors and yelling (presumably @). continue current mgmt. 12/26: refusing meds. binging and purging. floridly psychotic. 12/27: had meds last night for sleep, per his request. schedule all haldol tonight with ativan and cogentin. a bit more interactive today, remains delayed and distracted. no binging/purging behaviors or agitated behaviors described by RN report today. 12/28: refused meds last night. Today asks for meds for sx mgt- aggressive today- threw two coffee cups. Begin Depakote 250 mg bid. 12/29: got multiple meds last NOC and overnight per his request. slept 2 hours. refusing meds this morning. commitment paperwork completed. 3-day notice expires tomorrow. c/o opioid craving, asked for methadone. methadone 30 mg daily started today. 12/30: filed for commitment today. haldol and ativan per his request last night. appears in disbelief that he will not be discharged today. 12/31: demanding to leave, getting agitated, banging on nursing station, slamming doors in his room. given IMs x 2, haldol 10 ativan 2 benadryl 50 for first and thorazine 100 for second. 01/01: Remains unpredictable and irritable. Refusing scheduled medications. Section 7/ filed. 01/02: Continue current management. 01/03: refusing meds. irritable, labile. periods of agitation. continue current mgmt, awaiting hearing for . 01/04: refusing meds. irritable, labile. periods of agitation. continue current mgmt, though pt is refusing meds. 01/05: thought-blocked. denies mental illness or need for medications. offer medications. hearing tomorrow. 01/06: committed and ordered medications at hearing. 06/12/20 [facility] [place] summary reviewd, pt was discharged on VPA, zyprexa, haldol. 03/14/20 DC summary reviewed, pt discharged on zyprexa, haldol. pt unable to comprehend result, agitated not to be leaving today. 01/07: copy of court order on unit, will order meds accordingly today. no change in presentation. 01/08: Continue current regimen and plans 01/09: Continue current plans and regimen. Discontinue contingent IM Ativan if Depakote refused 01/10: Continue current regimen and plans. 01/11: DC VPA, start tegretol per pt preference. ativan 2 mg IM for refusal of tegretol. continue haldol PO/IM orders. improved from last week. less agitated, a bit more organized and engaging. 01/12: appears more disorganized again today, trouble engaging. refused PO meds last night but did take tegretol PO this morning. 01/13: continues disorganized, difficulty expressing himself. refusing PO meds since yesterday morning. slept 10 hours last night, however 01/14: intermittently taking meds PO versus IM. improved behavior from prior to med order, but remains floridly psychotic. continue current mgmt. 01/16/2023: No changes to current plan 01/17: more compliant with tegretol in recent days, still getting haldol IM. no change in presentation. continue current mgmt. 01/18: remains psychotic, labile. increase tegretol to 300 mg BID. 01/19: continues more aggressive and labile today. increase haldol to 10 BID with back-up IM of 7.5 mg. 01/20: more calm today,periods of agitation, however, in the past 24H. continue current mgmt. declines to change scheduled haldol to thorazine (proposed by MD in the hope he would in order to spare him the IMs). 01/21 continue tx. 01/22 writing for thorazine at bed- mr x1 and check ekg given other antipsychotics on board 01/23 agreed to ekg today, added 1pm dose of 5mg haldol 01/24: taking meds PO, still suffering from AH, possibly VH. perhaps trending more calm, but clearly still periods of agitation in the past several days. 01/25: labile, paranoid delusions. informed staff he experiences AH, mumbles recently. increase tegretol to 400 BID, make IR formulation as he has been chewing the pills. 01/26: more calm today. continue current mgmt. 01/27: continues more calm. some staff concerned for akathisia due to pacing and number of PRNs taken, but appears to be doing less walking than he had been before, does not appear restless or uncomfortable. continue current mgmt, check tegretol level 2 weeks after dose change (02/08). 01/28: stable presentation. intermittent sleep disturbance. continue current mgmt. 01/29: Continue current management. Benadryl for allergies 01/30: Continue current plan of care. 01/31: continues to ask for lots of PRNs. no change in presentation. 01/28 mild anemia and hyponatremia; trend. tegretol level 10.3. 02/01: series of abnormal and dynamic EKGs; today's WNL. cardiology consult requested for opinion. will start lithium pending cards opinion re EKG series. no change in presentation. 02/02: appreciate cardiology consultation and opinion. echocardiogram ordered. lithium started. appears better able to tolerate longer interaction today. 02/03: improved ability to tolerate social engagements continues. feels lithium has been helpful. akathisia likely. decrease haldol 02/10/10 to 5 BID and add thorazine 25 BID at 0900 and 1300. 02/04: clear uptick in psychotic.manic behavior yesterday after haldol dose decrease. eloped today. increase thorazine to 100/100/200 with PRNS available. 02/05: no concerning behaviors since elopement yesterday. refused PO haldol last night, otherwise med compliant. 02/06: med-compliant, no concerning behaviors. continue current mgmt. 02/07: check BMP along with lithium level. stable presentation. 02/08: CBC/BMP not concerning. lithium 0.6, tegretol 9.0. increase lithium dosing from 600 BID to 600/900 as of tonight. DC haldol entirely out of concerns for akathisia. invega not a great option due to tegretol interaction. start prolixin PO with IM back-up as alternative neuroleptic to haldol. 02/09: Continue current tx plan. 02/10: increase prolixin from 5 BID to 5 TID. otherwise continue current mgmt. 02/11: continue current mgmt. check labs jeferson of 02/13. 02/12: Continue current plan. Check labs in AM. 02/13: Continue current treatment plan. Li level 0.68, CMZ level 8.6 02/14: Continue current regimen and plans 02/15: increase lithium to 750/900. T/C increasing tegretol in near future as well. gradually seems to be improving. 02/16: stable. continue current mgmt. has broached feeling depressed the past couple of days. 02/17: Continue current tx plan. 02/18: check labs in several days. stable, Sx much improved from prior but still clearly psychotic. 02/20: no changes 02/21: continue current mgmt. check labs soon. still psychotic, endorsing AH. 02/22: no change in presentation. check lithium and tegretol levels tomorrow. 02/23: tegretol 8.3, lithium 0.96. increase tegretol from 400 BID to 400/600 as of tonight. c/o restlessness, concern for akathisia. will review neuroleptics regimen if Sx do not improve in next several days (as might be the case if his restlessness is residual dante). also, AH continue. 02/24: stable. continue current mgmt. assess Sx over next week, then check tegretol level. 02/25: better related, discussed his post-discharge plans. family meeting late next week. continue current regimen, check labs around 03/02. 02/26: Continue plan of care discharge planning 02/27: Patient can not continues much improved states he feels much better without drug use no psychosis. 02/28: +RIS, bizarrely ends interview with MD by just getting up and walking away without a look or a word. increase prolixin 5 TID to 7.5 TID for psychosis. otherwise continue current mgmt. 03/01: continue current mgmt. tired today, stayed in bed. 03/02: tired again, rouses himself to sit up for interview. latency of response, asks MD to repeat question once, but denies AH. continue current mgmt. 03/03: more up and about today. unconvincingly denies AH. continue current mgmt. check labs tonight. 03/04: labs reviewed with pt, that they are reassuring and medication levels are good. tegretol 9.6, lithium 0.76. continue current mgmt. 03/05: Continue current regimen and plans. 03/06: Continue current plans and regimen 03/07: continue current mgmt. mtg btwn RADHA and pt's family held today. Reason for continued inpatient stay Substantial Risk for: inability to function and rapid decompensation Time Spent With Patient Time: Total time managing care of this patient today __25__ minutes.
[2023-03-07 19:55] VITALS: BP 115/62; PULSE 82; RESP 15; TEMP 37.2; O2SAT 99
[2023-03-07] MEDS: Lithium Carbonate ER 450 MG TABLET.ER 900 MG PO (20:41)
[2023-03-07] MEDS: carBAMazepine ER 200 MG TAB.ER.12H 600 MG PO (20:41)
[2023-03-07] MEDS: chlorproMAZINE HCl 100 MG TABLET 200 MG PO (20:42)
[2023-03-08] MEDS: fluPHENAZine HCl 2.5 MG TABLET 7.5 MG PO ×3 (08:44→21:34)
[2023-03-08] MEDS: Folic Acid 1 MG TABLET PO (08:45)
[2023-03-08] MEDS: Thiamine HCL 100 MG TABLET PO (08:45)
[2023-03-08] MEDS: Lithium Carbonate ER 300 MG TABLET.ER PO (08:45)
[2023-03-08] MEDS: Benztropine Mesylate 1 MG TABLET PO ×2 (08:45→21:35)
[2023-03-08] MEDS: carBAMazepine 200 MG TABLET 400 MG PO (08:45)
[2023-03-08] MEDS: chlorproMAZINE HCl 100 MG TABLET PO ×2 (08:45→13:13)
[2023-03-08] MEDS: Lithium Carbonate ER 450 MG TABLET.ER PO (08:48)
[2023-03-08 09:01] VITALS: BP 117/73; PULSE 89; RESP 18; TEMP 36.9; O2SAT 97
--- NOTE | 2023-03-08 09:57 | HO.PSYCHPN ---
Subjective Subjective Date of Service: 03/08/23 Reason For Visit: Psychosis Subjective Notes: Section 8 Interim History: Reviewed with Dr. Vizcaino. Patient presents guarded during 1:1. He reports feeling good today. Pt stated, I was happy to see my dad yesterday . Isolative. Denies SI/HI/VH/AH. Medication Compliance: Yes Side effects from medications: No Attending Groups: No Review of Systems Constitutional: Reports as per HPI Eyes: Reports as per HPI Reports as per HPI Cardiovascular: Reports as per HPI Respiratory: Reports as per HPI Gastrointestinal: Reports as per HPI Genitourinary: Reports as per HPI Musculoskeletal: Reports as per HPI Skin/Breast: Reports as per HPI Reports as per HPI Psychiatric: Reports as per HPI Endocrine: Reports as per HPI Hematologic/Lymphatic: Reports as per HPI Allergic/Immunologic: Reports as per HPI Mental Status Exam Mental Status Exam Narrative: Pt is alert and oriented; behavior is guarded and calm; dressed in casual attire; mood is described as good ; eye contact appropriate; Speech is normal rate, volume and prosody and not pressured; thought process is organized; otherwise pertinent to relevant topics and without any delusional content, paranoid ideations or grandiosity; denies SI/HI. There is no evidence of perceptual disturbance. Diagnostics Vital Signs (24Hr): Vital Signs - 24 hr 03/07/23 19:55 03/08/23 09:01 Temperature 98.9 F 98.4 F Pulse Rate 82 89 Respiratory Rate 15 18 Blood Pressure 115/62 117/73 Pulse Oximetry 99 97 Oxygen Delivery Method Room Air Room Air BMI result Body Mass Index 28.7 Labs 03/03/23 20:10 03/03/23 20:10 Medications Medications Current Medications Acetaminophen (Acetaminophen 325 Mg Tablet) 650 mg PO Q6H PRN PRN Reason: Headache/Pain Mild Scale (1-3) Last Admin: 02/25/23 20:13 Dose: 650 mg Al Hydroxide/Mg Hydroxide (Magnesium Hydrox/Alum Hydrox 30 Ml Oral.Susp) 30 ml PO Q6H PRN PRN Reason: Heartburn/Nausea Last Admin: 01/29/23 22:57 Dose: 30 ml Benzocaine (Throat Lozenge, Medicated Lozenge) 1 lozenge MUCOUS MEM Q2H PRN PRN Reason: Sore Throat Last Admin: 02/07/23 21:47 Dose: 1 lozenge Benztropine Mesylate (Benztropine Mesylate 1 Mg Tablet) 1 mg PO BID REPLACED BY [facility] Last Admin: 03/08/23 08:45 Dose: 1 mg Carbamazepine (Carbamazepine 200 Mg Tablet) 400 mg PO DAILY REPLACED BY [facility] Last Admin: 03/08/23 08:45 Dose: 400 mg Carbamazepine (Carbamazepine Er 200 Mg Tab.Er.12h) 600 mg PO BEDTIME REPLACED BY [facility] Last Admin: 03/07/23 20:41 Dose: 600 mg Chlorpromazine HCl (Chlorpromazine Hcl 100 Mg Tablet) 200 mg PO BEDTIME REPLACED BY [facility] Last Admin: 03/07/23 20:42 Dose: 200 mg Chlorpromazine HCl (Chlorpromazine Hcl 100 Mg Tablet) 100 mg PO BID@0900,1300 REPLACED BY [facility] Last Admin: 03/08/23 08:45 Dose: 100 mg Chlorpromazine HCl (Chlorpromazine Hcl 100 Mg Tablet) 100 mg PO Q4H PRN PRN Reason: agitation/anxiety Last Admin: 03/05/23 20:45 Dose: 100 mg Clonidine HCl (Clonidine Hcl 0.1 Mg Tablet) 0.1 mg PO Q2H PRN; Protocol PRN Reason: agitation/signs of opioid withdrawal Last Admin: 02/15/23 19:47 Dose: 0.1 mg Diphenhydramine HCl (Diphenhydramine Hcl 25 Mg Capsule) 50 mg PO Q6H PRN PRN Reason: Allergic Symptoms Last Admin: 03/05/23 22:33 Dose: 50 mg Fluphenazine HCl (Fluphenazine Hcl 2.5 Mg/Ml 10 Ml Vial) 5 mg IM TID PRN PRN Reason: refusal of PO fluphenazine Fluphenazine HCl (Fluphenazine Hcl 2.5 Mg Tablet) 7.5 mg PO TID REPLACED BY [facility] Last Admin: 03/08/23 08:44 Dose: 7.5 mg Folic Acid (Folic Acid 1 Mg Tablet) 1 mg PO DAILY REPLACED BY [facility] Last Admin: 03/08/23 08:45 Dose: 1 mg Renfrow Carbonate (Renfrow Carbonate Er 450 Mg Tablet.Er) 900 mg PO BEDTIME REPLACED BY [facility] Last Admin: 03/07/23 20:41 Dose: 900 mg Renfrow Carbonate (Renfrow Carbonate Er 300 Mg Tablet.Er) 300 mg PO DAILY REPLACED BY [facility] Last Admin: 03/08/23 08:45 Dose: 300 mg Renfrow Carbonate (Renfrow Carbonate Er 450 Mg Tablet.Er) 450 mg PO DAILY REPLACED BY [facility] Last Admin: 03/08/23 08:48 Dose: 450 mg Magnesium Hydroxide (Milk Of Magnesia 30 Ml Oral.Susp) 30 ml PO DAILY PRN PRN Reason: Constipation Multi-Ingred Cream/Lotion/Oil/Oint (Mineral Oil/Petrolatum,White 106 Gm Tube) 1 appl TOPICAL BID REPLACED BY [facility]; Protocol Last Admin: 03/08/23 08:49 Dose: Not Given Nicotine (Nicotine 21 Mg Patch.Td24) 21 mg TRANSDERMA DAILY PRN PRN Reason: smoking cessation Last Admin: 01/15/23 16:06 Dose: 21 mg Nicotine Polacrilex (Nicotine Polacrilex 2 Mg Gum) 4 mg BUCCAL Q2H PRN PRN Reason: nicotine cravings Last Admin: 02/09/23 11:45 Dose: 4 mg Ondansetron HCl (Ondansetron Odt 4 Mg Tab.Rapdis) 4 mg TRANSLINGU Q6H PRN PRN Reason: Nausea and Vomiting Last Admin: 01/28/23 14:44 Dose: 4 mg Thiamine HCl (Thiamine Hcl 100 Mg Tablet) 100 mg PO DAILY REPLACED BY [facility] Last Admin: 03/08/23 08:45 Dose: 100 mg Trazodone HCl (Trazodone Hcl 50 Mg Tablet) 50 mg PO BEDTIME MRX1 PRN PRN Reason: Insomnia Last Admin: 02/12/23 20:55 Dose: 50 mg Allergies Allergies Allergy/AdvReac Type Severity Reaction Status Date / Time morphine [MORPHINE] AdvReac Unknown NAUSEA Verified 12/10/22 19:56 Assessment & Plan Assessment & Plan (1) Nonspecific ST-T wave electrocardiographic changes: Status: Acute Code(s): R94.31 - Abnormal electrocardiogram [ECG] [EKG] (2) Cocaine use disorder: Status: Acute Code(s): F14.10 - Cocaine abuse, uncomplicated (3) Schizoaffective disorder, bipolar type: Status: Acute Code(s): F25.0 - Schizoaffective disorder, bipolar type (4) Opioid use disorder: Status: Acute Code(s): F11.90 - Opioid use, unspecified, uncomplicated Plan 12/24: attempt to give anti-psychotics. comfort meds for opioid and cocaine withdrawal. 12/25: refusing medications. period of agitation last night slamming doors and yelling (presumably @). continue current mgmt. 12/26: refusing meds. binging and purging. floridly psychotic. 12/27: had meds last night for sleep, per his request. schedule all haldol tonight with ativan and cogentin. a bit more interactive today, remains delayed and distracted. no binging/purging behaviors or agitated behaviors described by RN report today. 12/28: refused meds last night. Today asks for meds for sx mgt- aggressive today-threw two coffee cups. Begin Depakote 250 mg bid. 12/29: got multiple meds last NOC and overnight per his request. slept 2 hours. refusing meds this morning. commitment paperwork completed. 3-day notice expires tomorrow. c/o opioid craving, asked for methadone. methadone 30 mg daily started today. 12/30: filed for commitment today. haldol and ativan per his request last night. appears in disbelief that he will not be discharged today. 12/31: demanding to leave, getting agitated, banging on nursing station, slamming doors in his room. given IMs x 2, haldol 10 ativan 2 benadryl 50 for first and thorazine 100 for second. 01/01: Remains unpredictable and irritable. Refusing scheduled medications. Section 7/ filed. 01/02: Continue current management. 01/03: refusing meds. irritable, labile. periods of agitation. continue current mgmt, awaiting hearing for . 01/04: refusing meds. irritable, labile. periods of agitation. continue current mgmt, though pt is refusing meds. 01/05: thought-blocked. denies mental illness or need for medications. offer medications. hearing tomorrow. 01/06: committed and ordered medications at hearing. 06/12/20 [facility] [place] DC summary reviewd, pt was discharged on VPA, zyprexa, haldol. 03/14/20 DC summary reviewed, pt discharged on zyprexa, haldol. pt unable to comprehend result, agitated not to be leaving today. 01/07: copy of court order on unit, will order meds accordingly today. no change in presentation. 9/2: Continue current regimen and plans 01/09: Continue current plans and regimen. Discontinue contingent IM Ativan if Depakote refused 01/10: Continue current regimen and plans. 01/11: DC VPA, start tegretol per pt preference. ativan 2 mg IM for refusal of tegretol. continue haldol PO/IM orders. improved from last week. less agitated, a bit more organized and engaging. 01/12: appears more disorganized again today, trouble engaging. refused PO meds last night but did take tegretol PO this morning. 01/13: continues disorganized, difficulty expressing himself. refusing PO meds since yesterday morning. slept 10 hours last night, however 01/14: intermittently taking meds PO versus IM. improved behavior from prior to med order, but remains floridly psychotic. continue current mgmt. 01/16/2023: No changes to current plan 01/17: more compliant with tegretol in recent days, still getting haldol IM. no change in presentation. continue current mgmt. 01/18: remains psychotic, labile. increase tegretol to 300 mg BID. 01/19: continues more aggressive and labile today. increase haldol to 10 BID with back-up IM of 7.5 mg. 01/20: more calm today,periods of agitation, however, in the past 24H. continue current mgmt. declines to change scheduled haldol to thorazine (proposed by MD in the hope he would in order to spare him the IMs). 01/21 continue tx. 01/22 writing for thorazine at bed- mr x1 and check ekg given other antipsychotics on board 01/23 agreed to ekg today, added 1pm dose of 5mg haldol 01/24: taking meds PO, still suffering from AH, possibly VH. perhaps trending more calm, but clearly still periods of agitation in the past several days. 01/25: labile, paranoid delusions. informed staff he experiences AH, mumbles recently. increase tegretol to 400 BID, make IR formulation as he has been chewing the pills. 01/26: more calm today. continue current mgmt. 01/27: continues more calm. some staff concerned for akathisia due to pacing and number of PRNs taken, but appears to be doing less walking than he had been before, does not appear restless or uncomfortable. continue current mgmt, check tegretol level 2 weeks after dose change (02/08). 01/28: stable presentation. intermittent sleep disturbance. continue current mgmt. 01/29: Continue current management. Benadryl for allergies 01/30: Continue current plan of care. 01/31: continues to ask for lots of PRNs. no change in presentation. 01/28 mild anemia and hyponatremia; trend. tegretol level 10.3. 02/01: series of abnormal and dynamic EKGs; today's WNL. cardiology consult requested for opinion. will start lithium pending cards opinion re EKG series. no change in presentation. 02/02: appreciate cardiology consultation and opinion. echocardiogram ordered. lithium started. appears better able to tolerate longer interaction today. 02/03: improved ability to tolerate social engagements continues. feels lithium has been helpful. akathisia likely. decrease haldol 02/10/10 to 5 BID and add thorazine 25 BID at 0900 and 1300. 02/04: clear uptick in psychotic.manic behavior yesterday after haldol dose decrease. eloped today. increase thorazine to 100/100/200 with PRNS available. 02/05: no concerning behaviors since elopement yesterday. refused PO haldol last night, otherwise med compliant. 02/06: med-compliant, no concerning behaviors. continue current mgmt. 02/07: check BMP along with lithium level. stable presentation. 02/08: CBC/BMP not concerning. lithium 0.6, tegretol 9.0. increase lithium dosing from 600 BID to 600/900 as of tonight. DC haldol entirely out of concerns for akathisia. invega not a great option due to tegretol interaction. start prolixin PO with IM back-up as alternative neuroleptic to haldol. 02/09: Continue current tx plan. 02/10: increase prolixin from 5 BID to 5 TID. otherwise continue current mgmt. 02/11: continue current mgmt. check labs jeferson of 02/13. 02/12: Continue current plan. Check labs in AM. 02/13: Continue current treatment plan. Li level 0.68, CMZ level 8.6 02/14: Continue current regimen and plans 02/15: increase lithium to 750/900. T/C increasing tegretol in near future as well. gradually seems to be improving. 02/16: stable. continue current mgmt. has broached feeling depressed the past couple of days. 02/17: Continue current tx plan. 02/18: check labs in several days. stable, Sx much improved from prior but still clearly psychotic. 02/20: no changes 02/21: continue current mgmt. check labs soon. still psychotic, endorsing AH. 02/22: no change in presentation. check lithium and tegretol levels tomorrow. 02/23: tegretol 8.3, lithium 0.96. increase tegretol from 400 BID to 400/600 as of tonight. c/o restlessness, concern for akathisia. will review neuroleptics regimen if Sx do not improve in next several days (as might be the case if his restlessness is residual dante). also, AH continue. 02/24: stable. continue current mgmt. assess Sx over next week, then check tegretol level. 02/25: better related, discussed his post-discharge plans. family meeting late next week. continue current regimen, check labs around 03/02. 02/26: Continue plan of care discharge planning 02/27: Patient can not continues much improved states he feels much better without drug use no psychosis. 02/28: +RIS, bizarrely ends interview with MD by just getting up and walking away without a look or a word. increase prolixin 5 TID to 7.5 TID for psychosis. otherwise continue current mgmt. 03/01: continue current mgmt. tired today, stayed in bed. 03/02: tired again, rouses himself to sit up for interview. latency of response, asks MD to repeat question once, but denies AH. continue current mgmt. 03/03: more up and about today. unconvincingly denies AH. continue current mgmt. check labs tonight. 03/04: labs reviewed with pt, that they are reassuring and medication levels are good. tegretol 9.6, lithium 0.76. continue current mgmt. 03/05: Continue current regimen and plans. 03/06: Continue current plans and regimen 03/07: continue current mgmt. mtg btwn SW and pt's family held today. 03/08: Continue current tx plan. Patient educated on: medication risk/benefits Informed Consent: understands Reason for continued inpatient stay Substantial Risk for: med/psych decompensation Time Spent With Patient Time: Total time managing care of this patient today _30___ minutes.
[2023-03-08 20:20] VITALS: BP 126/74; PULSE 90; RESP 18; TEMP 36.7; O2SAT 96
[2023-03-08] MEDS: carBAMazepine ER 200 MG TAB.ER.12H 600 MG PO (21:34)
[2023-03-08] MEDS: chlorproMAZINE HCl 100 MG TABLET 200 MG PO (21:34)
[2023-03-08] MEDS: Lithium Carbonate ER 450 MG TABLET.ER 900 MG PO (21:34)
[2023-03-09 06:00] VITALS: BP 114/68; PULSE 75; TEMP 36.5; O2SAT 97
[2023-03-09] MEDS: Lithium Carbonate ER 300 MG TABLET.ER PO (08:06)
[2023-03-09] MEDS: Thiamine HCL 100 MG TABLET PO (08:06)
[2023-03-09] MEDS: chlorproMAZINE HCl 100 MG TABLET PO ×2 (08:06→13:57)
[2023-03-09] MEDS: Benztropine Mesylate 1 MG TABLET PO ×2 (08:06→20:31)
[2023-03-09] MEDS: Lithium Carbonate ER 450 MG TABLET.ER PO (08:07)
[2023-03-09] MEDS: fluPHENAZine HCl 2.5 MG TABLET 7.5 MG PO ×3 (08:07→20:31)
[2023-03-09] MEDS: carBAMazepine 200 MG TABLET 400 MG PO (08:07)
[2023-03-09] MEDS: Folic Acid 1 MG TABLET PO (08:08)
--- NOTE | 2023-03-09 09:40 | HO.PSYCHPN ---
Subjective Subjective Date of Service: 03/09/23 Reason For Visit: Psychosis Subjective Notes: Section 8 Interim History: Reviewed with Dr. Vizcaino. Patient presents guarded during 1:1. He reports feeling okay today; states he is sleeping well. Isolative. Pt reports he doesn't go to groups because I don't learn anything . Denies SI/HI/VH/AH. Medication Compliance: Yes Side effects from medications: No Attending Groups: No Review of Systems Constitutional: Reports as per HPI Eyes: Reports as per HPI Reports as per HPI Cardiovascular: Reports as per HPI Respiratory: Reports as per HPI Gastrointestinal: Reports as per HPI Genitourinary: Reports as per HPI Musculoskeletal: Reports as per HPI Skin/Breast: Reports as per HPI Reports as per HPI Psychiatric: Reports as per HPI Endocrine: Reports as per HPI Hematologic/Lymphatic: Reports as per HPI Allergic/Immunologic: Reports as per HPI Mental Status Exam Mental Status Exam Narrative: Pt is alert and oriented; behavior is guarded and calm; dressed in casual attire; mood is described as good ; eye contact appropriate; Speech is normal rate, volume and prosody and not pressured; thought process is organized; otherwise pertinent to relevant topics and without any delusional content, paranoid ideations or grandiosity; denies SI/HI. There is no evidence of perceptual disturbance. Behavior Comments: can be irritable in pm Diagnostics Vital Signs (24Hr): Vital Signs - 24 hr 03/08/23 20:20 03/09/23 06:00 Temperature 98.0 F 97.7 F Pulse Rate 90 75 Respiratory Rate 18 Blood Pressure 126/74 114/68 Pulse Oximetry 96 97 Oxygen Delivery Method Room Air Room Air BMI result Body Mass Index 28.7 Labs 03/03/23 20:10 03/03/23 20:10 Medications Medications Current Medications Acetaminophen (Acetaminophen 325 Mg Tablet) 650 mg PO Q6H PRN PRN Reason: Headache/Pain Mild Scale (1-3) Last Admin: 02/25/23 20:13 Dose: 650 mg Al Hydroxide/Mg Hydroxide (Magnesium Hydrox/Alum Hydrox 30 Ml Oral.Susp) 30 ml PO Q6H PRN PRN Reason: Heartburn/Nausea Last Admin: 01/29/23 22:57 Dose: 30 ml Benzocaine (Throat Lozenge, Medicated Lozenge) 1 lozenge MUCOUS MEM Q2H PRN PRN Reason: Sore Throat Last Admin: 02/07/23 21:47 Dose: 1 lozenge Benztropine Mesylate (Benztropine Mesylate 1 Mg Tablet) 1 mg PO BID [facility] Last Admin: 03/09/23 08:06 Dose: 1 mg Carbamazepine (Carbamazepine 200 Mg Tablet) 400 mg PO DAILY [facility] Last Admin: 03/09/23 08:07 Dose: 400 mg Carbamazepine (Carbamazepine Er 200 Mg Tab.Er.12h) 600 mg PO BEDTIME [facility] Last Admin: 03/08/23 21:34 Dose: 600 mg Chlorpromazine HCl (Chlorpromazine Hcl 100 Mg Tablet) 200 mg PO BEDTIME [facility] Last Admin: 03/08/23 21:34 Dose: 200 mg Chlorpromazine HCl (Chlorpromazine Hcl 100 Mg Tablet) 100 mg PO BID@0900,1300 [facility] Last Admin: 03/09/23 08:06 Dose: 100 mg Chlorpromazine HCl (Chlorpromazine Hcl 100 Mg Tablet) 100 mg PO Q4H PRN PRN Reason: agitation/anxiety Last Admin: 03/05/23 20:45 Dose: 100 mg Clonidine HCl (Clonidine Hcl 0.1 Mg Tablet) 0.1 mg PO Q2H PRN; Protocol PRN Reason: agitation/signs of opioid withdrawal Last Admin: 02/15/23 19:47 Dose: 0.1 mg Diphenhydramine HCl (Diphenhydramine Hcl 25 Mg Capsule) 50 mg PO Q6H PRN PRN Reason: Allergic Symptoms Last Admin: 03/05/23 22:33 Dose: 50 mg Fluphenazine HCl (Fluphenazine Hcl 2.5 Mg/Ml 10 Ml Vial) 5 mg IM TID PRN PRN Reason: refusal of PO fluphenazine Fluphenazine HCl (Fluphenazine Hcl 2.5 Mg Tablet) 7.5 mg PO TID [facility] Last Admin: 03/09/23 08:07 Dose: 7.5 mg Folic Acid (Folic Acid 1 Mg Tablet) 1 mg PO DAILY [facility] Last Admin: 03/09/23 08:08 Dose: 1 mg [place] Carbonate ([place] Carbonate Er 450 Mg Tablet.Er) 900 mg PO BEDTIME [facility] Last Admin: 03/08/23 21:34 Dose: 900 mg [place] Carbonate ([place] Carbonate Er 300 Mg Tablet.Er) 300 mg PO DAILY [facility] Last Admin: 03/09/23 08:06 Dose: 300 mg [place] Carbonate ([place] Carbonate Er 450 Mg Tablet.Er) 450 mg PO DAILY [facility] Last Admin: 03/09/23 08:07 Dose: 450 mg Magnesium Hydroxide (Milk Of Magnesia 30 Ml Oral.Susp) 30 ml PO DAILY PRN PRN Reason: Constipation Multi-Ingred Cream/Lotion/Oil/Oint (Mineral Oil/Petrolatum,White 106 Gm Tube) 1 appl TOPICAL BID [facility]; Protocol Last Admin: 03/09/23 08:08 Dose: Not Given Nicotine (Nicotine 21 Mg Patch.Td24) 21 mg TRANSDERMA DAILY PRN PRN Reason: smoking cessation Last Admin: 01/15/23 16:06 Dose: 21 mg Nicotine Polacrilex (Nicotine Polacrilex 2 Mg Gum) 4 mg BUCCAL Q2H PRN PRN Reason: nicotine cravings Last Admin: 02/09/23 11:45 Dose: 4 mg Ondansetron HCl (Ondansetron Odt 4 Mg Tab.Rapdis) 4 mg TRANSLINGU Q6H PRN PRN Reason: Nausea and Vomiting Last Admin: 01/28/23 14:44 Dose: 4 mg Thiamine HCl (Thiamine Hcl 100 Mg Tablet) 100 mg PO DAILY [facility] Last Admin: 03/09/23 08:06 Dose: 100 mg Trazodone HCl (Trazodone Hcl 50 Mg Tablet) 50 mg PO BEDTIME MRX1 PRN PRN Reason: Insomnia Last Admin: 02/12/23 20:55 Dose: 50 mg Allergies Allergies Allergy/AdvReac Type Severity Reaction Status Date / Time morphine [MORPHINE] AdvReac Unknown NAUSEA Verified 12/10/22 19:56 Assessment & Plan Assessment & Plan (1) Nonspecific ST-T wave electrocardiographic changes: Status: Acute Code(s): R94.31 - Abnormal electrocardiogram [ECG] [EKG] (2) Cocaine use disorder: Status: Acute Code(s): F14.10 - Cocaine abuse, uncomplicated (3) Schizoaffective disorder, bipolar type: Status: Acute Code(s): F25.0 - Schizoaffective disorder, bipolar type (4) Opioid use disorder: Status: Acute Code(s): F11.90 - Opioid use, unspecified, uncomplicated Plan 12/24: attempt to give anti-psychotics. comfort meds for opioid and cocaine withdrawal. 12/25: refusing medications. period of agitation last night slamming doors and yelling (presumably @AH). continue current mgmt. 12/26: refusing meds. binging and purging. floridly psychotic. 12/27: had meds last night for sleep, per his request. schedule all haldol tonight with ativan and cogentin. a bit more interactive today, remains delayed and distracted. no binging/purging behaviors or agitated behaviors described by RN report today. 12/28: refused meds last night. Today asks for meds for sx mgt- aggressive today-threw two coffee cups. Begin Depakote 250 mg bid. 12/29: got multiple meds last NOC and overnight per his request. slept 2 hours. refusing meds this morning. commitment paperwork completed. 3-day notice expires tomorrow. c/o opioid craving, asked for methadone. methadone 30 mg daily started today. 12/30: filed for commitment today. haldol and ativan per his request last night. appears in disbelief that he will not be discharged today. 12/31: demanding to leave, getting agitated, banging on nursing station, slamming doors in his room. given IMs x 2, haldol 10 ativan 2 benadryl 50 for first and thorazine 100 for second. 01/01: Remains unpredictable and irritable. Refusing scheduled medications. Section 7/ filed. 01/02: Continue current management. 01/03: refusing meds. irritable, labile. periods of agitation. continue current mgmt, awaiting hearing for . 01/04: refusing meds. irritable, labile. periods of agitation. continue current mgmt, though pt is refusing meds. 01/05: thought-blocked. denies mental illness or need for medications. offer medications. hearing tomorrow. 01/06: committed and ordered medications at hearing. 06/12/20 [facility] DC summary reviewd, pt was discharged on VPA, zyprexa, haldol. 03/14/20 DC summary reviewed, pt discharged on zyprexa, haldol. pt unable to comprehend result, agitated not to be leaving today. 01/07: copy of court order on unit, will order meds accordingly today. no change in presentation. 01/08: Continue current regimen and plans 01/09: Continue current plans and regimen. Discontinue contingent IM Ativan if Depakote refused 01/10: Continue current regimen and plans. 01/11: DC VPA, start tegretol per pt preference. ativan 2 mg IM for refusal of tegretol. continue haldol PO/IM orders. improved from last week. less agitated, a bit more organized and engaging. 01/12: appears more disorganized again today, trouble engaging. refused PO meds last night but did take tegretol PO this morning. 01/13: continues disorganized, difficulty expressing himself. refusing PO meds since yesterday morning. slept 10 hours last night, however 01/14: intermittently taking meds PO versus IM. improved behavior from prior to med order, but remains floridly psychotic. continue current mgmt. 01/16/2023: No changes to current plan 01/17: more compliant with tegretol in recent days, still getting haldol IM. no change in presentation. continue current mgmt. 01/18: remains psychotic, labile. increase tegretol to 300 mg BID. 01/19: continues more aggressive and labile today. increase haldol to 10 BID with back-up IM of 7.5 mg. 01/20: more calm today,periods of agitation, however, in the past 24H. continue current mgmt. declines to change scheduled haldol to thorazine (proposed by MD in the hope he would in order to spare him the IMs). 01/21 continue tx. 01/22 writing for thorazine at bed- mr x1 and check ekg given other antipsychotics on board 01/23 agreed to ekg today, added 1pm dose of 5mg haldol 01/24: taking meds PO, still suffering from AH, possibly VH. perhaps trending more calm, but clearly still periods of agitation in the past several days. 01/25: labile, paranoid delusions. informed staff he experiences AH, mumbles recently. increase tegretol to 400 BID, make IR formulation as he has been chewing the pills. 01/26: more calm today. continue current mgmt. 01/27: continues more calm. some staff concerned for akathisia due to pacing and number of PRNs taken, but appears to be doing less walking than he had been before, does not appear restless or uncomfortable. continue current mgmt, check tegretol level 2 weeks after dose change (02/08). 01/28: stable presentation. intermittent sleep disturbance. continue current mgmt. 01/29: Continue current management. Benadryl for allergies 01/30: Continue current plan of care. 01/31: continues to ask for lots of PRNs. no change in presentation. 01/28 mild anemia and hyponatremia; trend. tegretol level 10.3. 02/01: series of abnormal and dynamic EKGs; today's WNL. cardiology consult requested for opinion. will start lithium pending cards opinion re EKG series. no change in presentation. 02/02: appreciate cardiology consultation and opinion. echocardiogram ordered. lithium started. appears better able to tolerate longer interaction today. 02/03: improved ability to tolerate social engagements continues. feels lithium has been helpful. akathisia likely. decrease haldol 02/10/10 to 5 BID and add thorazine 25 BID at 0900 and 1300. 02/04: clear uptick in psychotic.manic behavior yesterday after haldol dose decrease. eloped today. increase thorazine to 100/100/200 with PRNS available. 02/05: no concerning behaviors since elopement yesterday. refused PO haldol last night, otherwise med compliant. 02/06: med-compliant, no concerning behaviors. continue current mgmt. 02/07: check BMP along with lithium level. stable presentation. 02/08: CBC/BMP not concerning. lithium 0.6, tegretol 9.0. increase lithium dosing from 600 BID to 600/900 as of tonight. DC haldol entirely out of concerns for akathisia. invega not a great option due to tegretol interaction. start prolixin PO with IM back-up as alternative neuroleptic to haldol. 02/09: Continue current tx plan. 02/10: increase prolixin from 5 BID to 5 TID. otherwise continue current mgmt. 02/11: continue current mgmt. check labs jeferson of 02/13. 02/12: Continue current plan. Check labs in AM. 02/13: Continue current treatment plan. Li level 0.68, CMZ level 8.6 02/14: Continue current regimen and plans 02/15: increase lithium to 750/900. T/C increasing tegretol in near future as well. gradually seems to be improving. 02/16: stable. continue current mgmt. has broached feeling depressed the past couple of days. 02/17: Continue current tx plan. 02/18: check labs in several days. stable, Sx much improved from prior but still clearly psychotic. 02/20: no changes 02/21: continue current mgmt. check labs soon. still psychotic, endorsing AH. 02/22: no change in presentation. check lithium and tegretol levels tomorrow. 02/23: tegretol 8.3, lithium 0.96. increase tegretol from 400 BID to 400/600 as of tonight. c/o restlessness, concern for akathisia. will review neuroleptics regimen if Sx do not improve in next several days (as might be the case if his restlessness is residual dante). also, AH continue. 02/24: stable. continue current mgmt. assess Sx over next week, then check tegretol level. 02/25: better related, discussed his post-discharge plans. family meeting late next week. continue current regimen, check labs around 03/02. 02/26: Continue plan of care discharge planning 02/27: Patient can not continues much improved states he feels much better without drug use no psychosis. 02/28: +RIS, bizarrely ends interview with MD by just getting up and walking away without a look or a word. increase prolixin 5 TID to 7.5 TID for psychosis. otherwise continue current mgmt. 03/01: continue current mgmt. tired today, stayed in bed. 03/02: tired again, rouses himself to sit up for interview. latency of response, asks MD to repeat question once, but denies AH. continue current mgmt. 03/03: more up and about today. unconvincingly denies AH. continue current mgmt. check labs tonight. 03/04: labs reviewed with pt, that they are reassuring and medication levels are good. tegretol 9.6, lithium 0.76. continue current mgmt. 03/05: Continue current regimen and plans. 03/06: Continue current plans and regimen 03/07: continue current mgmt. mtg btwn SW and pt's family held today. 03/08: Continue current tx plan. 03/09: Patient presents guarded during 1:1. He reports feeling okay today; states he is sleeping well. Isolative. Pt reports he doesn't go to groups because I don't learn anything . Denies SI/HI/VH/AH. Continue current tx plan. Reason for continued inpatient stay Substantial Risk for: med/psych decompensation Time Spent With Patient Time: Total time managing care of this patient today ____ minutes.
[2023-03-09] MEDS: diphenhydrAMINE HCL 25 MG CAPSULE 50 MG PO (16:00)
[2023-03-09] MEDS: Lithium Carbonate ER 450 MG TABLET.ER 900 MG PO (20:31)
[2023-03-09] MEDS: carBAMazepine ER 200 MG TAB.ER.12H 600 MG PO (20:31)
[2023-03-09] MEDS: chlorproMAZINE HCl 100 MG TABLET 200 MG PO (20:32)
[2023-03-09 20:33] VITALS: BP 132/70; PULSE 89; TEMP 37; O2SAT 98
[2023-03-10 08:02] VITALS: BP 109/60; PULSE 78; RESP 16; TEMP 36.4; O2SAT 96
[2023-03-10 08:22] VITALS: BMI 29.1
[2023-03-10] MEDS: Benztropine Mesylate 1 MG TABLET PO ×2 (08:56→20:14)
[2023-03-10] MEDS: carBAMazepine 200 MG TABLET 400 MG PO (08:56)
[2023-03-10] MEDS: Folic Acid 1 MG TABLET PO (08:56)
[2023-03-10] MEDS: fluPHENAZine HCl 2.5 MG TABLET 7.5 MG PO ×3 (08:56→20:14)
[2023-03-10] MEDS: Lithium Carbonate ER 300 MG TABLET.ER PO (08:56)
[2023-03-10] MEDS: Thiamine HCL 100 MG TABLET PO (08:57)
[2023-03-10] MEDS: chlorproMAZINE HCl 100 MG TABLET PO ×2 (08:57→13:58)
[2023-03-10] MEDS: Lithium Carbonate ER 450 MG TABLET.ER PO (08:57)
--- NOTE | 2023-03-10 09:25 | HO.PSYCHPN ---
Subjective Subjective Date of Service: 03/10/23 Reason For Visit: Psychosis Subjective Notes: Section 8 Interim History: Reviewed with Dr. Vizcaino. Patient presents guarded and brief today. He reports feeling good . Pt stated, I don't need anything Denies SI/HI/VH/AH. Medication Compliance: Yes Side effects from medications: No Attending Groups: No Review of Systems Review of Systems Constitutional: Reports as per HPI Eyes: Reports as per HPI Reports as per HPI Cardiovascular: Reports as per HPI Respiratory: Reports as per HPI Gastrointestinal: Reports as per HPI Genitourinary: Reports as per HPI Musculoskeletal: Reports as per HPI Skin/Breast: Reports as per HPI Reports as per HPI Psychiatric: Reports as per HPI Endocrine: Reports as per HPI Hematologic/Lymphatic: Reports as per HPI Allergic/Immunologic: Reports as per HPI Mental Status Exam Mental Status Exam Narrative: Pt is alert and oriented; behavior is guarded and calm; dressed in casual attire; mood is described as good ; eye contact appropriate; Speech is normal rate, volume and prosody and not pressured; thought process is organized; otherwise pertinent to relevant topics and without any delusional content, paranoid ideations or grandiosity; denies SI/HI. There is no evidence of perceptual disturbance. Diagnostics Vital Signs (24Hr): Vital Signs - 24 hr 03/09/23 20:33 03/10/23 08:02 Temperature 98.6 F 97.5 F Pulse Rate 89 78 Respiratory Rate 16 Blood Pressure 132/70 109/60 Pulse Oximetry 98 96 Oxygen Delivery Method Room Air Room Air BMI result Body Mass Index 29.1 Labs 03/03/23 20:10 03/03/23 20:10 Medications Medications Current Medications Acetaminophen (Acetaminophen 325 Mg Tablet) 650 mg PO Q6H PRN PRN Reason: Headache/Pain Mild Scale (1-3) Last Admin: 02/25/23 20:13 Dose: 650 mg Al Hydroxide/Mg Hydroxide (Magnesium Hydrox/Alum Hydrox 30 Ml Oral.Susp) 30 ml PO Q6H PRN PRN Reason: Heartburn/Nausea Last Admin: 01/29/23 22:57 Dose: 30 ml Benzocaine (Throat Lozenge, Medicated Lozenge) 1 lozenge MUCOUS MEM Q2H PRN PRN Reason: Sore Throat Last Admin: 02/07/23 21:47 Dose: 1 lozenge Benztropine Mesylate (Benztropine Mesylate 1 Mg Tablet) 1 mg PO BID [facility] Last Admin: 03/10/23 08:56 Dose: 1 mg Carbamazepine (Carbamazepine 200 Mg Tablet) 400 mg PO DAILY [facility] Last Admin: 03/10/23 08:56 Dose: 400 mg Carbamazepine (Carbamazepine Er 200 Mg Tab.Er.12h) 600 mg PO BEDTIME [facility] Last Admin: 03/09/23 20:31 Dose: 600 mg Chlorpromazine HCl (Chlorpromazine Hcl 100 Mg Tablet) 200 mg PO BEDTIME [facility] Last Admin: 03/09/23 20:32 Dose: 200 mg Chlorpromazine HCl (Chlorpromazine Hcl 100 Mg Tablet) 100 mg PO BID@0900,1300 [facility] Last Admin: 03/10/23 08:57 Dose: 100 mg Chlorpromazine HCl (Chlorpromazine Hcl 100 Mg Tablet) 100 mg PO Q4H PRN PRN Reason: agitation/anxiety Last Admin: 03/05/23 20:45 Dose: 100 mg Clonidine HCl (Clonidine Hcl 0.1 Mg Tablet) 0.1 mg PO Q2H PRN; Protocol PRN Reason: agitation/signs of opioid withdrawal Last Admin: 02/15/23 19:47 Dose: 0.1 mg Diphenhydramine HCl (Diphenhydramine Hcl 25 Mg Capsule) 50 mg PO Q6H PRN PRN Reason: Allergic Symptoms Last Admin: 03/09/23 16:00 Dose: 50 mg Fluphenazine HCl (Fluphenazine Hcl 2.5 Mg/Ml 10 Ml Vial) 5 mg IM TID PRN PRN Reason: refusal of PO fluphenazine Fluphenazine HCl (Fluphenazine Hcl 2.5 Mg Tablet) 7.5 mg PO TID [facility] Last Admin: 03/10/23 08:56 Dose: 7.5 mg Folic Acid (Folic Acid 1 Mg Tablet) 1 mg PO DAILY [facility] Last Admin: 03/10/23 08:56 Dose: 1 mg [place] Carbonate ([place] Carbonate Er 450 Mg Tablet.Er) 900 mg PO BEDTIME [facility] Last Admin: 03/09/23 20:31 Dose: 900 mg [place] Carbonate ([place] Carbonate Er 300 Mg Tablet.Er) 300 mg PO DAILY [facility] Last Admin: 03/10/23 08:56 Dose: 300 mg [place] Carbonate ([place] Carbonate Er 450 Mg Tablet.Er) 450 mg PO DAILY [facility] Last Admin: 03/10/23 08:57 Dose: 450 mg Magnesium Hydroxide (Milk Of Magnesia 30 Ml Oral.Susp) 30 ml PO DAILY PRN PRN Reason: Constipation Multi-Ingred Cream/Lotion/Oil/Oint (Mineral Oil/Petrolatum,White 106 Gm Tube) 1 appl TOPICAL BID [facility]; Protocol Last Admin: 03/10/23 08:59 Dose: Not Given Nicotine (Nicotine 21 Mg Patch.Td24) 21 mg TRANSDERMA DAILY PRN PRN Reason: smoking cessation Last Admin: 01/15/23 16:06 Dose: 21 mg Nicotine Polacrilex (Nicotine Polacrilex 2 Mg Gum) 4 mg BUCCAL Q2H PRN PRN Reason: nicotine cravings Last Admin: 02/09/23 11:45 Dose: 4 mg Ondansetron HCl (Ondansetron Odt 4 Mg Tab.Rapdis) 4 mg TRANSLINGU Q6H PRN PRN Reason: Nausea and Vomiting Last Admin: 01/28/23 14:44 Dose: 4 mg Thiamine HCl (Thiamine Hcl 100 Mg Tablet) 100 mg PO DAILY [facility] Last Admin: 03/10/23 08:57 Dose: 100 mg Trazodone HCl (Trazodone Hcl 50 Mg Tablet) 50 mg PO BEDTIME MRX1 PRN PRN Reason: Insomnia Last Admin: 02/12/23 20:55 Dose: 50 mg Allergies Allergies Allergy/AdvReac Type Severity Reaction Status Date / Time morphine [MORPHINE] AdvReac Unknown NAUSEA Verified 12/10/22 19:56 Assessment & Plan Assessment & Plan (1) Nonspecific ST-T wave electrocardiographic changes: Status: Acute Code(s): R94.31 - Abnormal electrocardiogram [ECG] [EKG] (2) Cocaine use disorder: Status: Acute Code(s): F14.10 - Cocaine abuse, uncomplicated (3) Schizoaffective disorder, bipolar type: Status: Acute Code(s): F25.0 - Schizoaffective disorder, bipolar type (4) Opioid use disorder: Status: Acute Code(s): F11.90 - Opioid use, unspecified, uncomplicated Plan 12/24: attempt to give anti-psychotics. comfort meds for opioid and cocaine withdrawal. 12/25: refusing medications. period of agitation last night slamming doors and yelling (presumably @). continue current mgmt. 12/26: refusing meds. binging and purging. floridly psychotic. 12/27: had meds last night for sleep, per his request. schedule all haldol tonight with ativan and cogentin. a bit more interactive today, remains delayed and distracted. no binging/purging behaviors or agitated behaviors described by RN report today. 12/28: refused meds last night. Today asks for meds for sx mgt- aggressive today-threw two coffee cups. Begin Depakote 250 mg bid. 12/29: got multiple meds last NOC and overnight per his request. slept 2 hours. refusing meds this morning. commitment paperwork completed. 3-day notice expires tomorrow. c/o opioid craving, asked for methadone. methadone 30 mg daily started today. 12/30: filed for commitment today. haldol and ativan per his request last night. appears in disbelief that he will not be discharged today. 12/31: demanding to leave, getting agitated, banging on nursing station, slamming doors in his room. given IMs x 2, haldol 10 ativan 2 benadryl 50 for first and thorazine 100 for second. 01/01: Remains unpredictable and irritable. Refusing scheduled medications. Section 7/ filed. 01/02: Continue current management. 01/03: refusing meds. irritable, labile. periods of agitation. continue current mgmt, awaiting hearing for . 01/04: refusing meds. irritable, labile. periods of agitation. continue current mgmt, though pt is refusing meds. 01/05: thought-blocked. denies mental illness or need for medications. offer medications. hearing tomorrow. 01/06: committed and ordered medications at hearing. 06/12/20 [facility] summary reviewd, pt was discharged on VPA, zyprexa, haldol. 03/14/20 DC summary reviewed, pt discharged on zyprexa, haldol. pt unable to comprehend result, agitated not to be leaving today. 01/07: copy of court order on unit, will order meds accordingly today. no change in presentation. 01/08: Continue current regimen and plans 01/09: Continue current plans and regimen. Discontinue contingent IM Ativan if Depakote refused 01/10: Continue current regimen and plans. 01/11: DC VPA, start tegretol per pt preference. ativan 2 mg IM for refusal of tegretol. continue haldol PO/IM orders. improved from last week. less agitated, a bit more organized and engaging. 01/12: appears more disorganized again today, trouble engaging. refused PO meds last night but did take tegretol PO this morning. 01/13: continues disorganized, difficulty expressing himself. refusing PO meds since yesterday morning. slept 10 hours last night, however 01/14: intermittently taking meds PO versus IM. improved behavior from prior to med order, but remains floridly psychotic. continue current mgmt. 01/16/2023: No changes to current plan 01/17: more compliant with tegretol in recent days, still getting haldol IM. no change in presentation. continue current mgmt. 01/18: remains psychotic, labile. increase tegretol to 300 mg BID. 01/19: continues more aggressive and labile today. increase haldol to 10 BID with back-up IM of 7.5 mg. 01/20: more calm today,periods of agitation, however, in the past 24H. continue current mgmt. declines to change scheduled haldol to thorazine (proposed by MD in the hope he would in order to spare him the IMs). 01/21 continue tx. 01/22 writing for thorazine at bed- mr x1 and check ekg given other antipsychotics on board 01/23 agreed to ekg today, added 1pm dose of 5mg haldol 01/24: taking meds PO, still suffering from AH, possibly VH. perhaps trending more calm, but clearly still periods of agitation in the past several days. 01/25: labile, paranoid delusions. informed staff he experiences AH, mumbles recently. increase tegretol to 400 BID, make IR formulation as he has been chewing the pills. 01/26: more calm today. continue current mgmt. 01/27: continues more calm. some staff concerned for akathisia due to pacing and number of PRNs taken, but appears to be doing less walking than he had been before, does not appear restless or uncomfortable. continue current mgmt, check tegretol level 2 weeks after dose change (02/08). 01/28: stable presentation. intermittent sleep disturbance. continue current mgmt. 01/29: Continue current management. Benadryl for allergies 01/30: Continue current plan of care. 01/31: continues to ask for lots of PRNs. no change in presentation. 01/28 mild anemia and hyponatremia; trend. tegretol level 10.3. 02/01: series of abnormal and dynamic EKGs; today's WNL. cardiology consult requested for opinion. will start lithium pending cards opinion re EKG series. no change in presentation. 02/02: appreciate cardiology consultation and opinion. echocardiogram ordered. lithium started. appears better able to tolerate longer interaction today. 02/03: improved ability to tolerate social engagements continues. feels lithium has been helpful. akathisia likely. decrease haldol 02/10/10 to 5 BID and add thorazine 25 BID at 0900 and 1300. 02/04: clear uptick in psychotic.manic behavior yesterday after haldol dose decrease. eloped today. increase thorazine to 100/100/200 with PRNS available. 02/05: no concerning behaviors since elopement yesterday. refused PO haldol last night, otherwise med compliant. 02/06: med-compliant, no concerning behaviors. continue current mgmt. 02/07: check BMP along with lithium level. stable presentation. 02/08: CBC/BMP not concerning. lithium 0.6, tegretol 9.0. increase lithium dosing from 600 BID to 600/900 as of tonight. DC haldol entirely out of concerns for akathisia. invega not a great option due to tegretol interaction. start prolixin PO with IM back-up as alternative neuroleptic to haldol. 02/09: Continue current tx plan. 02/10: increase prolixin from 5 BID to 5 TID. otherwise continue current mgmt. 02/11: continue current mgmt. check labs jeferson of 02/13. 02/12: Continue current plan. Check labs in AM. 02/13: Continue current treatment plan. Li level 0.68, CMZ level 8.6 02/14: Continue current regimen and plans 02/15: increase lithium to 750/900. T/C increasing tegretol in near future as well. gradually seems to be improving. 02/16: stable. continue current mgmt. has broached feeling depressed the past couple of days. 02/17: Continue current tx plan. 02/18: check labs in several days. stable, Sx much improved from prior but still clearly psychotic. 02/20: no changes 02/21: continue current mgmt. check labs soon. still psychotic, endorsing AH. 02/22: no change in presentation. check lithium and tegretol levels tomorrow. 02/23: tegretol 8.3, lithium 0.96. increase tegretol from 400 BID to 400/600 as of tonight. c/o restlessness, concern for akathisia. will review neuroleptics regimen if Sx do not improve in next several days (as might be the case if his restlessness is residual dante). also, AH continue. 02/24: stable. continue current mgmt. assess Sx over next week, then check tegretol level. 02/25: better related, discussed his post-discharge plans. family meeting late next week. continue current regimen, check labs around 03/02. 02/26: Continue plan of care discharge planning 02/27: Patient can not continues much improved states he feels much better without drug use no psychosis. 02/28: +RIS, bizarrely ends interview with MD by just getting up and walking away without a look or a word. increase prolixin 5 TID to 7.5 TID for psychosis. otherwise continue current mgmt. 03/01: continue current mgmt. tired today, stayed in bed. 03/02: tired again, rouses himself to sit up for interview. latency of response, asks MD to repeat question once, but denies AH. continue current mgmt. 03/03: more up and about today. unconvincingly denies AH. continue current mgmt. check labs tonight. 03/04: labs reviewed with pt, that they are reassuring and medication levels are good. tegretol 9.6, lithium 0.76. continue current mgmt. 03/05: Continue current regimen and plans. 03/06: Continue current plans and regimen 03/07: continue current mgmt. mtg btwn RAD[facility] and pt's family held today. 03/08: Continue current tx plan. 03/09: Patient presents guarded during 1:1. He reports feeling okay today; states he is sleeping well. Isolative. Pt reports he doesn't go to groups because I don't learn anything . Denies SI/HI/VH/AH. Continue current tx plan. 03/10: Patient presents guarded and brief today. He reports feeling good . Pt stated, I don't need anything Denies SI/HI/VH/AH. Patient educated on: diagnosis, medication risk/benefits and therapeutic strategies Informed Consent: understands Reason for continued inpatient stay Substantial Risk for: med/psych decompensation Time Spent With Patient Time: Total time managing care of this patient today _30___ minutes.
--- NOTE | 2023-03-10 16:01 | PC.NURSE ---
Patient continues agitated, banging on Exit signs. States he wants to fight security because that is what will calm him down.
[2023-03-10 20:10] VITALS: BP 129/75; PULSE 71; RESP 16; TEMP 36.9; O2SAT 98
[2023-03-10] MEDS: Lithium Carbonate ER 450 MG TABLET.ER 900 MG PO (20:14)
[2023-03-10] MEDS: chlorproMAZINE HCl 100 MG TABLET 200 MG PO (20:14)
[2023-03-10] MEDS: carBAMazepine ER 200 MG TAB.ER.12H 600 MG PO (20:15)
[2023-03-11 06:00] VITALS: BP 110/57; PULSE 66; TEMP 36.5; O2SAT 96
[2023-03-11] MEDS: chlorproMAZINE HCl 100 MG TABLET PO ×2 (08:57→13:29)
[2023-03-11] MEDS: Lithium Carbonate ER 300 MG TABLET.ER PO (08:57)
[2023-03-11] MEDS: fluPHENAZine HCl 2.5 MG TABLET 7.5 MG PO ×3 (08:57→20:24)
[2023-03-11] MEDS: Thiamine HCL 100 MG TABLET PO (08:57)
[2023-03-11] MEDS: Benztropine Mesylate 1 MG TABLET PO ×2 (08:57→20:25)
[2023-03-11] MEDS: Lithium Carbonate ER 450 MG TABLET.ER PO (08:58)
[2023-03-11] MEDS: Folic Acid 1 MG TABLET PO (08:58)
[2023-03-11] MEDS: carBAMazepine 200 MG TABLET 400 MG PO (08:58)
--- NOTE | 2023-03-11 14:33 | P.PNPSI_ITS ---
Subjective Subjective Date of Service: 03/11/23 Reason For Visit: Psychosis Interim History: found in his room lying in his bed, awake. calm, cooperative. linear with normal HAMLET for some of interview, minimizing/denying Sx. periods of apparent distraction and difficulty organizing thoughts and producing cogent communication as well. per staff, limited participation. denies mood concerns or AH. +RIS, however. isolative. slept about 7 hours overnight. Mental Status Exam Mental Status Exam Narrative: Pt is alert and oriented; behavior is guarded and calm; dressed in casual attire; mood is described as good ; eye contact appropriate; Speech is normal rate, volume and prosody and not pressured; thought process is variably organized to apparently disorganized; otherwise pertinent to relevant topics and without any delusional content, paranoid ideations or grandiosity; denies SI/HI. There is evidence of perceptual disturbance. Diagnostics Vital Signs (24Hr): Vital Signs - 24 hr 03/10/23 20:10 03/11/23 06:00 Temperature 98.5 F 97.7 F Pulse Rate 71 66 Respiratory Rate 16 Blood Pressure 129/75 110/57 L Pulse Oximetry 98 96 Oxygen Delivery Method Room Air Room Air BMI result Body Mass Index 29.1 Labs 03/03/23 20:10 03/03/23 20:10 Medications Medications Current Medications Acetaminophen (Acetaminophen 325 Mg Tablet) 650 mg PO Q6H PRN PRN Reason: Headache/Pain Mild Scale (1-3) Last Admin: 02/25/23 20:13 Dose: 650 mg Al Hydroxide/Mg Hydroxide (Magnesium Hydrox/Alum Hydrox 30 Ml Oral.Susp) 30 ml PO Q6H PRN PRN Reason: Heartburn/Nausea Last Admin: 01/29/23 22:57 Dose: 30 ml Benzocaine (Throat Lozenge, Medicated Lozenge) 1 lozenge MUCOUS MEM Q2H PRN PRN Reason: Sore Throat Last Admin: 02/07/23 21:47 Dose: 1 lozenge Benztropine Mesylate (Benztropine Mesylate 1 Mg Tablet) 1 mg PO BID [facility] Last Admin: 03/11/23 08:57 Dose: 1 mg Carbamazepine (Carbamazepine 200 Mg Tablet) 400 mg PO DAILY [facility] Last Admin: 03/11/23 08:58 Dose: 400 mg Carbamazepine (Carbamazepine Er 200 Mg Tab.Er.12h) 600 mg PO BEDTIME [facility] Last Admin: 03/10/23 20:15 Dose: 600 mg Chlorpromazine HCl (Chlorpromazine Hcl 100 Mg Tablet) 200 mg PO BEDTIME [facility] Last Admin: 03/10/23 20:14 Dose: 200 mg Chlorpromazine HCl (Chlorpromazine Hcl 100 Mg Tablet) 100 mg PO BID@0900,1300 [facility] Last Admin: 03/11/23 13:29 Dose: 100 mg Chlorpromazine HCl (Chlorpromazine Hcl 100 Mg Tablet) 100 mg PO Q4H PRN PRN Reason: agitation/anxiety Last Admin: 03/05/23 20:45 Dose: 100 mg Clonidine HCl (Clonidine Hcl 0.1 Mg Tablet) 0.1 mg PO Q2H PRN; Protocol PRN Reason: agitation/signs of opioid withdrawal Last Admin: 02/15/23 19:47 Dose: 0.1 mg Diphenhydramine HCl (Diphenhydramine Hcl 25 Mg Capsule) 50 mg PO Q6H PRN PRN Reason: Allergic Symptoms Last Admin: 03/09/23 16:00 Dose: 50 mg Fluphenazine HCl (Fluphenazine Hcl 2.5 Mg/Ml 10 Ml Vial) 5 mg IM TID PRN PRN Reason: refusal of PO fluphenazine Fluphenazine HCl (Fluphenazine Hcl 2.5 Mg Tablet) 7.5 mg PO TID [facility] Last Admin: 03/11/23 14:07 Dose: 7.5 mg Folic Acid (Folic Acid 1 Mg Tablet) 1 mg PO DAILY [facility] Last Admin: 03/11/23 08:58 Dose: 1 mg [place] Carbonate ([place] Carbonate Er 450 Mg Tablet.Er) 900 mg PO BEDTIME [facility] Last Admin: 03/10/23 20:14 Dose: 900 mg [place] Carbonate ([place] Carbonate Er 300 Mg Tablet.Er) 300 mg PO DAILY [facility] Last Admin: 03/11/23 08:57 Dose: 300 mg [place] Carbonate ([place] Carbonate Er 450 Mg Tablet.Er) 450 mg PO DAILY [facility] Last Admin: 03/11/23 08:58 Dose: 450 mg Magnesium Hydroxide (Milk Of Magnesia 30 Ml Oral.Susp) 30 ml PO DAILY PRN PRN Reason: Constipation Multi-Ingred Cream/Lotion/Oil/Oint (Mineral Oil/Petrolatum,White 106 Gm Tube) 1 appl TOPICAL BID [facility]; Protocol Last Admin: 03/11/23 08:58 Dose: Not Given Nicotine (Nicotine 21 Mg Patch.Td24) 21 mg TRANSDERMA DAILY PRN PRN Reason: smoking cessation Last Admin: 01/15/23 16:06 Dose: 21 mg Nicotine Polacrilex (Nicotine Polacrilex 2 Mg Gum) 4 mg BUCCAL Q2H PRN PRN Reason: nicotine cravings Last Admin: 02/09/23 11:45 Dose: 4 mg Ondansetron HCl (Ondansetron Odt 4 Mg Tab.Rapdis) 4 mg TRANSLINGU Q6H PRN PRN Reason: Nausea and Vomiting Last Admin: 01/28/23 14:44 Dose: 4 mg Thiamine HCl (Thiamine Hcl 100 Mg Tablet) 100 mg PO DAILY [facility] Last Admin: 03/11/23 08:57 Dose: 100 mg Trazodone HCl (Trazodone Hcl 50 Mg Tablet) 50 mg PO BEDTIME MRX1 PRN PRN Reason: Insomnia Last Admin: 02/12/23 20:55 Dose: 50 mg Allergies Allergies Allergy/AdvReac Type Severity Reaction Status Date / Time morphine [MORPHINE] AdvReac Unknown NAUSEA Verified 12/10/22 19:56 Assessment & Plan Assessment & Plan (1) Nonspecific ST-T wave electrocardiographic changes: Status: Acute Code(s): R94.31 - Abnormal electrocardiogram [ECG] [EKG] (2) Cocaine use disorder: Status: Acute Code(s): F14.10 - Cocaine abuse, uncomplicated (3) Schizoaffective disorder, bipolar type: Status: Acute Code(s): F25.0 - Schizoaffective disorder, bipolar type (4) Opioid use disorder: Status: Acute Code(s): F11.90 - Opioid use, unspecified, uncomplicated Plan 12/24: attempt to give anti-psychotics. comfort meds for opioid and cocaine withdrawal. 12/25: refusing medications. period of agitation last night slamming doors and yelling (presumably @). continue current mgmt. 12/26: refusing meds. binging and purging. floridly psychotic. 12/27: had meds last night for sleep, per his request. schedule all haldol tonight with ativan and cogentin. a bit more interactive today, remains delayed and distracted. no binging/purging behaviors or agitated behaviors described by RN report today. 12/28: refused meds last night. Today asks for meds for sx mgt- aggressive today- threw two coffee cups. Begin Depakote 250 mg bid. 12/29: got multiple meds last NOC and overnight per his request. slept 2 hours. refusing meds this morning. commitment paperwork completed. 3-day notice expires tomorrow. c/o opioid craving, asked for methadone. methadone 30 mg daily started today. 12/30: filed for commitment today. haldol and ativan per his request last night. appears in disbelief that he will not be discharged today. 12/31: demanding to leave, getting agitated, banging on nursing station, slamming doors in his room. given IMs x 2, haldol 10 ativan 2 benadryl 50 for first and thorazine 100 for second. 01/01: Remains unpredictable and irritable. Refusing scheduled medications. Section 7/ filed. 01/02: Continue current management. 01/03: refusing meds. irritable, labile. periods of agitation. continue current mgmt, awaiting hearing for . 01/04: refusing meds. irritable, labile. periods of agitation. continue current mgmt, though pt is refusing meds. 01/05: thought-blocked. denies mental illness or need for medications. offer medications. hearing tomorrow. 01/06: committed and ordered medications at hearing. 06/12/20 [facility] [place] summary reviewd, pt was discharged on VPA, zyprexa, haldol. 03/14/20 DC summary reviewed, pt discharged on zyprexa, haldol. pt unable to comprehend result, agitated not to be leaving today. 01/07: copy of court order on unit, will order meds accordingly today. no change in presentation. 01/08: Continue current regimen and plans 01/09: Continue current plans and regimen. Discontinue contingent IM Ativan if Depakote refused 01/10: Continue current regimen and plans. 01/11: DC VPA, start tegretol per pt preference. ativan 2 mg IM for refusal of tegretol. continue haldol PO/IM orders. improved from last week. less agitated, a bit more organized and engaging. 01/12: appears more disorganized again today, trouble engaging. refused PO meds last night but did take tegretol PO this morning. 01/13: continues disorganized, difficulty expressing himself. refusing PO meds since yesterday morning. slept 10 hours last night, however 01/14: intermittently taking meds PO versus IM. improved behavior from prior to med order, but remains floridly psychotic. continue current mgmt. 01/16/2023: No changes to current plan 01/17: more compliant with tegretol in recent days, still getting haldol IM. no change in presentation. continue current mgmt. 01/18: remains psychotic, labile. increase tegretol to 300 mg BID. 01/19: continues more aggressive and labile today. increase haldol to 10 BID with back-up IM of 7.5 mg. 01/20: more calm today,periods of agitation, however, in the past 24H. continue current mgmt. declines to change scheduled haldol to thorazine (proposed by MD in the hope he would in order to spare him the IMs). 01/21 continue tx. 01/22 writing for thorazine at bed- mr x1 and check ekg given other antipsychotics on board 01/23 agreed to ekg today, added 1pm dose of 5mg haldol 01/24: taking meds PO, still suffering from AH, possibly VH. perhaps trending more calm, but clearly still periods of agitation in the past several days. 01/25: labile, paranoid delusions. informed staff he experiences AH, mumbles recently. increase tegretol to 400 BID, make IR formulation as he has been chewing the pills. 01/26: more calm today. continue current mgmt. 01/27: continues more calm. some staff concerned for akathisia due to pacing and number of PRNs taken, but appears to be doing less walking than he had been before, does not appear restless or uncomfortable. continue current mgmt, check tegretol level 2 weeks after dose change (02/08). 01/28: stable presentation. intermittent sleep disturbance. continue current mgmt. 01/29: Continue current management. Benadryl for allergies 01/30: Continue current plan of care. 01/31: continues to ask for lots of PRNs. no change in presentation. 01/28 mild anemia and hyponatremia; trend. tegretol level 10.3. 02/01: series of abnormal and dynamic EKGs; today's WNL. cardiology consult requested for opinion. will start lithium pending cards opinion re EKG series. no change in presentation. 02/02: appreciate cardiology consultation and opinion. echocardiogram ordered. lithium started. appears better able to tolerate longer interaction today. 02/03: improved ability to tolerate social engagements continues. feels lithium has been helpful. akathisia likely. decrease haldol 02/10/10 to 5 BID and add thorazine 25 BID at 0900 and 1300. 02/04: clear uptick in psychotic.manic behavior yesterday after haldol dose decrease. eloped today. increase thorazine to 100/100/200 with PRNS available. 02/05: no concerning behaviors since elopement yesterday. refused PO haldol last night, otherwise med compliant. 02/06: med-compliant, no concerning behaviors. continue current mgmt. 02/07: check BMP along with lithium level. stable presentation. 02/08: CBC/BMP not concerning. lithium 0.6, tegretol 9.0. increase lithium dosing from 600 BID to 600/900 as of tonight. DC haldol entirely out of concerns for akathisia. invega not a great option due to tegretol interaction. start prolixin PO with IM back-up as alternative neuroleptic to haldol. 02/09: Continue current tx plan. 02/10: increase prolixin from 5 BID to 5 TID. otherwise continue current mgmt. 02/11: continue current mgmt. check labs jeferson of 02/13. 02/12: Continue current plan. Check labs in AM. 02/13: Continue current treatment plan. Li level 0.68, CMZ level 8.6 02/14: Continue current regimen and plans 02/15: increase lithium to 750/900. T/C increasing tegretol in near future as well. gradually seems to be improving. 02/16: stable. continue current mgmt. has broached feeling depressed the past couple of days. 02/17: Continue current tx plan. 02/18: check labs in several days. stable, Sx much improved from prior but still clearly psychotic. 02/20: no changes 02/21: continue current mgmt. check labs soon. still psychotic, endorsing AH. 02/22: no change in presentation. check lithium and tegretol levels tomorrow. 02/23: tegretol 8.3, lithium 0.96. increase tegretol from 400 BID to 400/600 as of tonight. c/o restlessness, concern for akathisia. will review neuroleptics regimen if Sx do not improve in next several days (as might be the case if his restlessness is residual dante). also, AH continue. 02/24: stable. continue current mgmt. assess Sx over next week, then check tegretol level. 02/25: better related, discussed his post-discharge plans. family meeting late next week. continue current regimen, check labs around 03/02. 02/26: Continue plan of care discharge planning 02/27: Patient can not continues much improved states he feels much better without drug use no psychosis. 02/28: +RIS, bizarrely ends interview with MD by just getting up and walking away without a look or a word. increase prolixin 5 TID to 7.5 TID for psychosis. otherwise continue current mgmt. 03/01: continue current mgmt. tired today, stayed in bed. 03/02: tired again, rouses himself to sit up for interview. latency of response, asks MD to repeat question once, but denies AH. continue current mgmt. 03/03: more up and about today. unconvincingly denies AH. continue current mgmt. check labs tonight. 03/04: labs reviewed with pt, that they are reassuring and medication levels are good. tegretol 9.6, lithium 0.76. continue current mgmt. 03/05: Continue current regimen and plans. 03/06: Continue current plans and regimen 03/07: continue current mgmt. mtg btwn SW and pt's family held today. 03/08: Continue current tx plan. 03/09: Patient presents guarded during 1:1. He reports feeling okay today; states he is sleeping well. Isolative. Pt reports he doesn't go to groups because I don't learn anything . Denies SI/HI/VH/AH. Continue current tx plan. 03/10: Patient presents guarded and brief today. He reports feeling good . Pt stated, I don't need anything Denies SI/HI/VH/AH. 03/11: periods of cogency and periods of apparent thought disorganization. denying Sx but appears to still be RIS and distracted. continue current mgmt for now. Reason for continued inpatient stay Substantial Risk for: harm to self, inability to function and rapid decompensation Time Spent With Patient Time: Total time managing care of this patient today _25___ minutes.
[2023-03-11 20:20] VITALS: BP 126/76; PULSE 80; RESP 17; TEMP 36.8; O2SAT 98
[2023-03-11] MEDS: Lithium Carbonate ER 450 MG TABLET.ER 900 MG PO (20:24)
[2023-03-11] MEDS: carBAMazepine ER 200 MG TAB.ER.12H 600 MG PO (20:24)
[2023-03-11] MEDS: chlorproMAZINE HCl 100 MG TABLET 200 MG PO (20:24)
[2023-03-12] MEDS: Benztropine Mesylate 1 MG TABLET PO ×2 (08:35→20:42)
[2023-03-12] MEDS: fluPHENAZine HCl 2.5 MG TABLET 7.5 MG PO ×3 (08:35→20:40)
[2023-03-12] MEDS: Folic Acid 1 MG TABLET PO (08:35)
[2023-03-12] MEDS: carBAMazepine 200 MG TABLET 400 MG PO (08:35)
[2023-03-12] MEDS: chlorproMAZINE HCl 100 MG TABLET PO ×2 (08:35→13:49)
[2023-03-12] MEDS: Lithium Carbonate ER 450 MG TABLET.ER PO (08:36)
[2023-03-12] MEDS: Thiamine HCL 100 MG TABLET PO (08:36)
[2023-03-12] MEDS: Lithium Carbonate ER 300 MG TABLET.ER PO (08:36)
[2023-03-12 08:48] VITALS: BP 126/63; PULSE 67; RESP 18; TEMP 36.7; O2SAT 97
--- NOTE | 2023-03-12 13:54 | P.PNPSI_ITS ---
Subjective Subjective Date of Service: 03/12/23 Reason For Visit: Psychosis Interim History: The nursing staff reported the patient denies a lucent lesions or delusions even though that he had been seen responding to internal stimuli. He has been pleasant last night has poor sleep due to noisy roommate. On interview the patient denies new symptoms content with current treatment. Mental Status Exam Mental Status Exam Patient Appearance: Well Grooomed Patient Orientation: Person and Situation Level of Consciousness: Awake and Appropriate Patient Behavior: Guarded and Passive Mood Description: Calm Affect Description: Constricted Ability to Follow Directions: Good Speech Pattern: Clear Hallucinations: Auditory Delusions: Not Present Thought Process: Linear Thought Content: positive for Circumstantial Judgement: Fair Diagnostics Vital Signs (24Hr): Vital Signs - 24 hr 03/11/23 20:20 03/12/23 08:48 Temperature 98.2 F 98.1 F Pulse Rate 80 67 Respiratory Rate 17 18 Blood Pressure 126/76 126/63 Pulse Oximetry 98 97 Oxygen Delivery Method Room Air Room Air BMI result Body Mass Index 29.1 Labs 03/03/23 20:10 03/03/23 20:10 Medications Medications Current Medications Acetaminophen (Acetaminophen 325 Mg Tablet) 650 mg PO Q6H PRN PRN Reason: Headache/Pain Mild Scale (1-3) Last Admin: 02/25/23 20:13 Dose: 650 mg Al Hydroxide/Mg Hydroxide (Magnesium Hydrox/Alum Hydrox 30 Ml Oral.Susp) 30 ml PO Q6H PRN PRN Reason: Heartburn/Nausea Last Admin: 01/29/23 22:57 Dose: 30 ml Benzocaine (Throat Lozenge, Medicated Lozenge) 1 lozenge MUCOUS MEM Q2H PRN PRN Reason: Sore Throat Last Admin: 02/07/23 21:47 Dose: 1 lozenge Benztropine Mesylate (Benztropine Mesylate 1 Mg Tablet) 1 mg PO BID LEONOR Last Admin: 03/12/23 08:35 Dose: 1 mg Carbamazepine (Carbamazepine 200 Mg Tablet) 400 mg PO DAILY LEONOR Last Admin: 03/12/23 08:35 Dose: 400 mg Carbamazepine (Carbamazepine Er 200 Mg Tab.Er.12h) 600 mg PO BEDTIME LEONOR Last Admin: 03/11/23 20:24 Dose: 600 mg Chlorpromazine HCl (Chlorpromazine Hcl 100 Mg Tablet) 200 mg PO BEDTIME LEONOR Last Admin: 03/11/23 20:24 Dose: 200 mg Chlorpromazine HCl (Chlorpromazine Hcl 100 Mg Tablet) 100 mg PO BID@0900,1300 [facility] Last Admin: 03/12/23 13:49 Dose: 100 mg Chlorpromazine HCl (Chlorpromazine Hcl 100 Mg Tablet) 100 mg PO Q4H PRN PRN Reason: agitation/anxiety Last Admin: 03/05/23 20:45 Dose: 100 mg Clonidine HCl (Clonidine Hcl 0.1 Mg Tablet) 0.1 mg PO Q2H PRN; Protocol PRN Reason: agitation/signs of opioid withdrawal Last Admin: 02/15/23 19:47 Dose: 0.1 mg Diphenhydramine HCl (Diphenhydramine Hcl 25 Mg Capsule) 50 mg PO Q6H PRN PRN Reason: Allergic Symptoms Last Admin: 03/09/23 16:00 Dose: 50 mg Fluphenazine HCl (Fluphenazine Hcl 2.5 Mg/Ml 10 Ml Vial) 5 mg IM TID PRN PRN Reason: refusal of PO fluphenazine Fluphenazine HCl (Fluphenazine Hcl 2.5 Mg Tablet) 7.5 mg PO TID [facility] Last Admin: 03/12/23 08:35 Dose: 7.5 mg Folic Acid (Folic Acid 1 Mg Tablet) 1 mg PO DAILY [facility] Last Admin: 03/12/23 08:35 Dose: 1 mg [place] Carbonate ([place] Carbonate Er 450 Mg Tablet.Er) 900 mg PO BEDTIME [facility] Last Admin: 03/11/23 20:24 Dose: 900 mg [place] Carbonate ([place] Carbonate Er 300 Mg Tablet.Er) 300 mg PO DAILY [facility] Last Admin: 03/12/23 08:36 Dose: 300 mg [place] Carbonate ([place] Carbonate Er 450 Mg Tablet.Er) 450 mg PO DAILY [facility] Last Admin: 03/12/23 08:36 Dose: 450 mg Magnesium Hydroxide (Milk Of Magnesia 30 Ml Oral.Susp) 30 ml PO DAILY PRN PRN Reason: Constipation Multi-Ingred Cream/Lotion/Oil/Oint (Mineral Oil/Petrolatum,White 106 Gm Tube) 1 appl TOPICAL BID [facility]; Protocol Last Admin: 03/12/23 08:36 Dose: Not Given Nicotine (Nicotine 21 Mg Patch.Td24) 21 mg TRANSDERMA DAILY PRN PRN Reason: smoking cessation Last Admin: 01/15/23 16:06 Dose: 21 mg Nicotine Polacrilex (Nicotine Polacrilex 2 Mg Gum) 4 mg BUCCAL Q2H PRN PRN Reason: nicotine cravings Last Admin: 02/09/23 11:45 Dose: 4 mg Ondansetron HCl (Ondansetron Odt 4 Mg Tab.Rapdis) 4 mg TRANSLINGU Q6H PRN PRN Reason: Nausea and Vomiting Last Admin: 01/28/23 14:44 Dose: 4 mg Thiamine HCl (Thiamine Hcl 100 Mg Tablet) 100 mg PO DAILY LEONOR Last Admin: 03/12/23 08:36 Dose: 100 mg Trazodone HCl (Trazodone Hcl 50 Mg Tablet) 50 mg PO BEDTIME MRX1 PRN PRN Reason: Insomnia Last Admin: 02/12/23 20:55 Dose: 50 mg Allergies Allergies Allergy/AdvReac Type Severity Reaction Status Date / Time morphine [MORPHINE] AdvReac Unknown NAUSEA Verified 12/10/22 19:56 Assessment & Plan Assessment & Plan (1) Nonspecific ST-T wave electrocardiographic changes: Status: Acute Code(s): R94.31 - Abnormal electrocardiogram [ECG] [EKG] (2) Cocaine use disorder: Status: Acute Code(s): F14.10 - Cocaine abuse, uncomplicated (3) Schizoaffective disorder, bipolar type: Status: Acute Code(s): F25.0 - Schizoaffective disorder, bipolar type (4) Opioid use disorder: Status: Acute Code(s): F11.90 - Opioid use, unspecified, uncomplicated Plan 12/24: attempt to give anti-psychotics. comfort meds for opioid and cocaine withdrawal. 12/25: refusing medications. period of agitation last night slamming doors and yelling (presumably @). continue current mgmt. 12/26: refusing meds. binging and purging. floridly psychotic. 12/27: had meds last night for sleep, per his request. schedule all haldol tonight with ativan and cogentin. a bit more interactive today, remains delayed and distracted. no binging/purging behaviors or agitated behaviors described by RN report today. 12/28: refused meds last night. Today asks for meds for sx mgt- aggressive today- threw two coffee cups. Begin Depakote 250 mg bid. 12/29: got multiple meds last NOC and overnight per his request. slept 2 hours. refusing meds this morning. commitment paperwork completed. 3-day notice expires tomorrow. c/o opioid craving, asked for methadone. methadone 30 mg daily started today. 12/30: filed for commitment today. haldol and ativan per his request last night. appears in disbelief that he will not be discharged today. 12/31: demanding to leave, getting agitated, banging on nursing station, slamming doors in his room. given IMs x 2, haldol 10 ativan 2 benadryl 50 for first and thorazine 100 for second. 01/01: Remains unpredictable and irritable. Refusing scheduled medications. Section 7/ filed. 01/02: Continue current management. 01/03: refusing meds. irritable, labile. periods of agitation. continue current mgmt, awaiting hearing for . 01/04: refusing meds. irritable, labile. periods of agitation. continue current mgmt, though pt is refusing meds. 01/05: thought-blocked. denies mental illness or need for medications. offer medications. hearing tomorrow. 01/06: committed and ordered medications at hearing. [place] [facility] [place] was discharged on VPA, zyprexa, haldol. 03/14/20 DC summary reviewed, pt discharged on zyprexa, haldol. pt unable to comprehend result, agitated not to be leaving today. 01/07: copy of court order on unit, will order meds accordingly today. no change in presentation. 01/08: Continue current regimen and plans 01/09: Continue current plans and regimen. Discontinue contingent IM Ativan if Depakote refused 01/10: Continue current regimen and plans. 01/11: DC VPA, start tegretol per pt preference. ativan 2 mg IM for refusal of tegretol. continue haldol PO/IM orders. improved from last week. less agitated, a bit more organized and engaging. 01/12: appears more disorganized again today, trouble engaging. refused PO meds last night but did take tegretol PO this morning. 01/13: continues disorganized, difficulty expressing himself. refusing PO meds since yesterday morning. slept 10 hours last night, however 01/14: intermittently taking meds PO versus IM. improved behavior from prior to med order, but remains floridly psychotic. continue current mgmt. 01/16/2023: No changes to current plan 01/17: more compliant with tegretol in recent days, still getting haldol IM. no change in presentation. continue current mgmt. 01/18: remains psychotic, labile. increase tegretol to 300 mg BID. 01/19: continues more aggressive and labile today. increase haldol to 10 BID with back-up IM of 7.5 mg. 01/20: more calm today,periods of agitation, however, in the past 24H. continue current mgmt. declines to change scheduled haldol to thorazine (proposed by MD in the hope he would in order to spare him the IMs). 01/21 continue tx. 01/22 writing for thorazine at bed- mr x1 and check ekg given other antipsychotics on board 01/23 agreed to ekg today, added 1pm dose of 5mg haldol 01/24: taking meds PO, still suffering from AH, possibly VH. perhaps trending more calm, but clearly still periods of agitation in the past several days. 01/25: labile, paranoid delusions. informed staff he experiences AH, mumbles recently. increase tegretol to 400 BID, make IR formulation as he has been chewing the pills. 01/26: more calm today. continue current mgmt. 01/27: continues more calm. some staff concerned for akathisia due to pacing and number of PRNs taken, but appears to be doing less walking than he had been before, does not appear restless or uncomfortable. continue current mgmt, check tegretol level 2 weeks after dose change (02/08). 01/28: stable presentation. intermittent sleep disturbance. continue current mgmt. 01/29: Continue current management. Benadryl for allergies 01/30: Continue current plan of care. 01/31: continues to ask for lots of PRNs. no change in presentation. 01/28 mild anemia and hyponatremia; trend. tegretol level 10.3. 02/01: series of abnormal and dynamic EKGs; today's WNL. cardiology consult requested for opinion. will start lithium pending cards opinion re EKG series. no change in presentation. 02/02: appreciate cardiology consultation and opinion. echocardiogram ordered. lithium started. appears better able to tolerate longer interaction today. 02/03: improved ability to tolerate social engagements continues. feels lithium has been helpful. akathisia likely. decrease haldol 02/10/10 to 5 BID and add thorazine 25 BID at 0900 and 1300. 02/04: clear uptick in psychotic.manic behavior yesterday after haldol dose decrease. eloped today. increase thorazine to 100/100/200 with PRNS available. 02/05: no concerning behaviors since elopement yesterday. refused PO haldol last night, otherwise med compliant. 02/06: med-compliant, no concerning behaviors. continue current mgmt. 02/07: check BMP along with lithium level. stable presentation. 02/08: CBC/BMP not concerning. lithium 0.6, tegretol 9.0. increase lithium dosing from 600 BID to 600/900 as of taryn. DC haldol entirely out of concerns for akathisia. invega not a great option due to tegretol interaction. start prolixin PO with IM back-up as alternative neuroleptic to haldol. 02/09: Continue current tx plan. 02/10: increase prolixin from 5 BID to 5 TID. otherwise continue current mgmt. 02/11: continue current mgmt. check labs jeferson of 02/13. 02/12: Continue current plan. Check labs in AM. 02/13: Continue current treatment plan. Li level 0.68, CMZ level 8.6 02/14: Continue current regimen and plans 02/15: increase lithium to 750/900. T/C increasing tegretol in near future as well. gradually seems to be improving. 02/16: stable. continue current mgmt. has broached feeling depressed the past couple of days. 02/17: Continue current tx plan. 02/18: check labs in several days. stable, Sx much improved from prior but still clearly psychotic. 02/20: no changes 02/21: continue current mgmt. check labs soon. still psychotic, endorsing AH. 02/22: no change in presentation. check lithium and tegretol levels tomorrow. 10/18: tegretol 8.3, lithium 0.96. increase tegretol from 400 BID to 400/600 as of tonight. c/o restlessness, concern for akathisia. will review neuroleptics regimen if Sx do not improve in next several days (as might be the case if his restlessness is residual dante). also, AH continue. 02/24: stable. continue current mgmt. assess Sx over next week, then check tegretol level. 02/25: better related, discussed his post-discharge plans. family meeting late next week. continue current regimen, check labs around 03/02. 02/26: Continue plan of care discharge planning 02/27: Patient can not continues much improved states he feels much better without drug use no psychosis. 02/28: +RIS, bizarrely ends interview with MD by just getting up and walking away without a look or a word. increase prolixin 5 TID to 7.5 TID for psychosis. otherwise continue current mgmt. 03/01: continue current mgmt. tired today, stayed in bed. 03/02: tired again, rouses himself to sit up for interview. latency of response, asks MD to repeat question once, but denies AH. continue current mgmt. 03/03: more up and about today. unconvincingly denies AH. continue current mgmt. check labs tonight. 03/04: labs reviewed with pt, that they are reassuring and medication levels are good. tegretol 9.6, lithium 0.76. continue current mgmt. 03/05: Continue current regimen and plans. 03/06: Continue current plans and regimen 03/07: continue current mgmt. mtg btwn SW and pt's family held today. 03/08: Continue current tx plan. 03/09: Patient presents guarded during 1:1. He reports feeling okay today; states he is sleeping well. Isolative. Pt reports he doesn't go to groups because I don't learn anything . Denies SI/HI/VH/AH. Continue current tx plan. 03/10: Patient presents guarded and brief today. He reports feeling good . Pt stated, I don't need anything Denies SI/HI/VH/AH. 03/11: periods of cogency and periods of apparent thought disorganization. denying Sx but appears to still be RIS and distracted. continue current mgmt for now. 03/12 continue same treatment Reason for continued inpatient stay Substantial Risk for: inability to function, rapid decompensation and med/psych decompensation Time Spent With Patient Time: Total time managing care of this patient today _20___ minutes.
[2023-03-12 19:35] VITALS: BP 120/77; PULSE 92; RESP 18; TEMP 36.6; O2SAT 98
[2023-03-12] MEDS: carBAMazepine ER 200 MG TAB.ER.12H 600 MG PO (20:40)
[2023-03-12] MEDS: chlorproMAZINE HCl 100 MG TABLET 200 MG PO (20:41)
[2023-03-12] MEDS: Lithium Carbonate ER 450 MG TABLET.ER 900 MG PO (20:41)
[2023-03-12] MEDS: Acetaminophen 325 MG TABLET 650 MG PO (21:03)
[2023-03-13] MEDS: Benztropine Mesylate 1 MG TABLET PO ×2 (09:04→20:47)
[2023-03-13] MEDS: Folic Acid 1 MG TABLET PO (09:04)
[2023-03-13] MEDS: fluPHENAZine HCl 2.5 MG TABLET 7.5 MG PO ×3 (09:04→20:46)
[2023-03-13] MEDS: Thiamine HCL 100 MG TABLET PO (09:04)
[2023-03-13] MEDS: chlorproMAZINE HCl 100 MG TABLET PO ×2 (09:04→13:30)
[2023-03-13] MEDS: Lithium Carbonate ER 300 MG TABLET.ER PO (09:04)
[2023-03-13] MEDS: Lithium Carbonate ER 450 MG TABLET.ER PO (09:05)
[2023-03-13] MEDS: carBAMazepine 200 MG TABLET 400 MG PO (09:05)
[2023-03-13 09:29] VITALS: BP 126/67; PULSE 86; TEMP 36.6; O2SAT 99
[2023-03-13] MEDS: Acetaminophen 325 MG TABLET 650 MG PO (10:24)
--- NOTE | 2023-03-13 12:41 | HO.PSYCHPN ---
Subjective Subjective Date of Service: 03/13/23 Reason For Visit: Psychosis Subjective Notes: Conditional Voluntary Interim History: The nursing staff reported the patient has been isolative, flat guarded, eating his meals and compliant with medication. The staff has noticed that he has been self dialogue in. On interview the patient denies new symptoms, content with current treatment Mental Status Exam Mental Status Exam Patient Appearance: Well Grooomed and Appropriate Patient Orientation: Person and Situation Level of Consciousness: Awake and Appropriate Patient Behavior: Guarded and Cooperative Mood Description: Withdrawn Affect Description: Constricted Patient Cognition Impaired: Yes Ability to Follow Directions: Good Speech Pattern: Clear Hallucinations: None Delusions: Paranoid Ideation Thought Process: Distracted and Linear Thought Content: positive for Circumstantial Judgement: Fair Diagnostics Vital Signs (24Hr): Vital Signs - 24 hr 03/12/23 19:35 03/13/23 09:29 Temperature 97.8 F 98 F Pulse Rate 92 86 Respiratory Rate 18 Blood Pressure 120/77 126/67 Pulse Oximetry 98 99 Oxygen Delivery Method Room Air Room Air BMI result Body Mass Index 29.1 Labs 03/03/23 20:10 03/03/23 20:10 Medications Medications Current Medications Acetaminophen (Acetaminophen 325 Mg Tablet) 650 mg PO Q6H PRN PRN Reason: Headache/Pain Mild Scale (1-3) Last Admin: 03/13/23 10:24 Dose: 650 mg Al Hydroxide/Mg Hydroxide (Magnesium Hydrox/Alum Hydrox 30 Ml Oral.Susp) 30 ml PO Q6H PRN PRN Reason: Heartburn/Nausea Last Admin: 01/29/23 22:57 Dose: 30 ml Benzocaine (Throat Lozenge, Medicated Lozenge) 1 lozenge MUCOUS MEM Q2H PRN PRN Reason: Sore Throat Last Admin: 02/07/23 21:47 Dose: 1 lozenge Benztropine Mesylate (Benztropine Mesylate 1 Mg Tablet) 1 mg PO BID [facility] Last Admin: 03/13/23 09:04 Dose: 1 mg Carbamazepine (Carbamazepine 200 Mg Tablet) 400 mg PO DAILY [facility] Last Admin: 03/13/23 09:05 Dose: 400 mg Carbamazepine (Carbamazepine Er 200 Mg Tab.Er.12h) 600 mg PO BEDTIME [facility] Last Admin: 03/12/23 20:40 Dose: 600 mg Chlorpromazine HCl (Chlorpromazine Hcl 100 Mg Tablet) 200 mg PO BEDTIME [facility] Last Admin: 03/12/23 20:41 Dose: 200 mg Chlorpromazine HCl (Chlorpromazine Hcl 100 Mg Tablet) 100 mg PO BID@0900,1300 [facility] Last Admin: 03/13/23 09:04 Dose: 100 mg Chlorpromazine HCl (Chlorpromazine Hcl 100 Mg Tablet) 100 mg PO Q4H PRN PRN Reason: agitation/anxiety Last Admin: 03/05/23 20:45 Dose: 100 mg Clonidine HCl (Clonidine Hcl 0.1 Mg Tablet) 0.1 mg PO Q2H PRN; Protocol PRN Reason: agitation/signs of opioid withdrawal Last Admin: 02/15/23 19:47 Dose: 0.1 mg Diphenhydramine HCl (Diphenhydramine Hcl 25 Mg Capsule) 50 mg PO Q6H PRN PRN Reason: Allergic Symptoms Last Admin: 03/09/23 16:00 Dose: 50 mg Fluphenazine HCl (Fluphenazine Hcl 2.5 Mg/Ml 10 Ml Vial) 5 mg IM TID PRN PRN Reason: refusal of PO fluphenazine Fluphenazine HCl (Fluphenazine Hcl 2.5 Mg Tablet) 7.5 mg PO TID [facility] Last Admin: 03/13/23 09:04 Dose: 7.5 mg Folic Acid (Folic Acid 1 Mg Tablet) 1 mg PO DAILY [facility] Last Admin: 03/13/23 09:04 Dose: 1 mg [place] Carbonate ([place] Carbonate Er 450 Mg Tablet.Er) 900 mg PO BEDTIME [facility] Last Admin: 03/12/23 20:41 Dose: 900 mg [place] Carbonate ([place] Carbonate Er 300 Mg Tablet.Er) 300 mg PO DAILY [facility] Last Admin: 03/13/23 09:04 Dose: 300 mg [place] Carbonate ([place] Carbonate Er 450 Mg Tablet.Er) 450 mg PO DAILY [facility] Last Admin: 03/13/23 09:05 Dose: 450 mg Magnesium Hydroxide (Milk Of Magnesia 30 Ml Oral.Susp) 30 ml PO DAILY PRN PRN Reason: Constipation Multi-Ingred Cream/Lotion/Oil/Oint (Mineral Oil/Petrolatum,White 106 Gm Tube) 1 appl TOPICAL BID [facility]; Protocol Last Admin: 03/13/23 09:17 Dose: Not Given Nicotine (Nicotine 21 Mg Patch.Td24) 21 mg TRANSDERMA DAILY PRN PRN Reason: smoking cessation Last Admin: 01/15/23 16:06 Dose: 21 mg Nicotine Polacrilex (Nicotine Polacrilex 2 Mg Gum) 4 mg BUCCAL Q2H PRN PRN Reason: nicotine cravings Last Admin: 02/09/23 11:45 Dose: 4 mg Ondansetron HCl (Ondansetron Odt 4 Mg Tab.Rapdis) 4 mg TRANSLINGU Q6H PRN PRN Reason: Nausea and Vomiting Last Admin: 01/28/23 14:44 Dose: 4 mg Thiamine HCl (Thiamine Hcl 100 Mg Tablet) 100 mg PO DAILY [facility] Last Admin: 03/13/23 09:04 Dose: 100 mg Trazodone HCl (Trazodone Hcl 50 Mg Tablet) 50 mg PO BEDTIME MRX1 PRN PRN Reason: Insomnia Last Admin: 02/12/23 20:55 Dose: 50 mg Allergies Allergies Allergy/AdvReac Type Severity Reaction Status Date / Time morphine [MORPHINE] AdvReac Unknown NAUSEA Verified 12/10/22 19:56 Assessment & Plan Assessment & Plan (1) Nonspecific ST-T wave electrocardiographic changes: Status: Acute Code(s): R94.31 - Abnormal electrocardiogram [ECG] [EKG] (2) Cocaine use disorder: Status: Acute Code(s): F14.10 - Cocaine abuse, uncomplicated (3) Schizoaffective disorder, bipolar type: Status: Acute Code(s): F25.0 - Schizoaffective disorder, bipolar type (4) Opioid use disorder: Status: Acute Code(s): F11.90 - Opioid use, unspecified, uncomplicated Plan 12/24: attempt to give anti-psychotics. comfort meds for opioid and cocaine withdrawal. 12/25: refusing medications. period of agitation last night slamming doors and yelling (presumably @AH). continue current mgmt. 12/26: refusing meds. binging and purging. floridly psychotic. 12/27: had meds last night for sleep, per his request. schedule all haldol tonight with ativan and cogentin. a bit more interactive today, remains delayed and distracted. no binging/purging behaviors or agitated behaviors described by RN report today. 12/28: refused meds last night. Today asks for meds for sx mgt- aggressive today-threw two coffee cups. Begin Depakote 250 mg bid. 12/29: got multiple meds last NOC and overnight per his request. slept 2 hours. refusing meds this morning. commitment paperwork completed. 3-day notice expires tomorrow. c/o opioid craving, asked for methadone. methadone 30 mg daily started today. 12/30: filed for commitment today. haldol and ativan per his request last night. appears in disbelief that he will not be discharged today. 12/31: demanding to leave, getting agitated, banging on nursing station, slamming doors in his room. given IMs x 2, haldol 10 ativan 2 benadryl 50 for first and thorazine 100 for second. 01/01: Remains unpredictable and irritable. Refusing scheduled medications. Section 7/ filed. 01/02: Continue current management. 01/03: refusing meds. irritable, labile. periods of agitation. continue current mgmt, awaiting hearing for . 01/04: refusing meds. irritable, labile. periods of agitation. continue current mgmt, though pt is refusing meds. 01/05: thought-blocked. denies mental illness or need for medications. offer medications. hearing tomorrow. 01/06: committed and ordered medications at hearing. 06/12/20 [facility] [place]d, pt was discharged on VPA, zyprexa, haldol. 03/14/20 DC summary reviewed, pt discharged on zyprexa, haldol. pt unable to comprehend result, agitated not to be leaving today. 01/07: copy of court order on unit, will order meds accordingly today. no change in presentation. 01/08: Continue current regimen and plans 01/09: Continue current plans and regimen. Discontinue contingent IM Ativan if Depakote refused 01/10: Continue current regimen and plans. 01/11: DC VPA, start tegretol per pt preference. ativan 2 mg IM for refusal of tegretol. continue haldol PO/IM orders. improved from last week. less agitated, a bit more organized and engaging. 01/12: appears more disorganized again today, trouble engaging. refused PO meds last night but did take tegretol PO this morning. 01/13: continues disorganized, difficulty expressing himself. refusing PO meds since yesterday morning. slept 10 hours last night, however 01/14: intermittently taking meds PO versus IM. improved behavior from prior to med order, but remains floridly psychotic. continue current mgmt. 01/16/2023: No changes to current plan 01/17: more compliant with tegretol in recent days, still getting haldol IM. no change in presentation. continue current mgmt. 01/18: remains psychotic, labile. increase tegretol to 300 mg BID. 01/19: continues more aggressive and labile today. increase haldol to 10 BID with back-up IM of 7.5 mg. 01/20: more calm today,periods of agitation, however, in the past 24H. continue current mgmt. declines to change scheduled haldol to thorazine (proposed by MD in the hope he would in order to spare him the IMs). 01/21 continue tx. 01/22 writing for thorazine at bed- mr x1 and check ekg given other antipsychotics on board 01/23 agreed to ekg today, added 1pm dose of 5mg haldol 01/24: taking meds PO, still suffering from AH, possibly VH. perhaps trending more calm, but clearly still periods of agitation in the past several days. 01/25: labile, paranoid delusions. informed staff he experiences AH, mumbles recently. increase tegretol to 400 BID, make IR formulation as he has been chewing the pills. 01/26: more calm today. continue current mgmt. 01/27: continues more calm. some staff concerned for akathisia due to pacing and number of PRNs taken, but appears to be doing less walking than he had been before, does not appear restless or uncomfortable. continue current mgmt, check tegretol level 2 weeks after dose change (02/08). 01/28: stable presentation. intermittent sleep disturbance. continue current mgmt. 01/29: Continue current management. Benadryl for allergies 01/30: Continue current plan of care. 01/31: continues to ask for lots of PRNs. no change in presentation. 01/28 mild anemia and hyponatremia; trend. tegretol level 10.3. 02/01: series of abnormal and dynamic EKGs; today's WNL. cardiology consult requested for opinion. will start lithium pending cards opinion re EKG series. no change in presentation. 02/02: appreciate cardiology consultation and opinion. echocardiogram ordered. lithium started. appears better able to tolerate longer interaction today. 02/03: improved ability to tolerate social engagements continues. feels lithium has been helpful. akathisia likely. decrease haldol 02/10/10 to 5 BID and add thorazine 25 BID at 0900 and 1300. 02/04: clear uptick in psychotic.manic behavior yesterday after haldol dose decrease. eloped today. increase thorazine to 100/100/200 with PRNS available. 02/05: no concerning behaviors since elopement yesterday. refused PO haldol last night, otherwise med compliant. 02/06: med-compliant, no concerning behaviors. continue current mgmt. 02/07: check BMP along with lithium level. stable presentation. 02/08: CBC/BMP not concerning. lithium 0.6, tegretol 9.0. increase lithium dosing from 600 BID to 600/900 as of tonight. DC haldol entirely out of concerns for akathisia. invega not a great option due to tegretol interaction. start prolixin PO with IM back-up as alternative neuroleptic to haldol. 02/09: Continue current tx plan. 02/10: increase prolixin from 5 BID to 5 TID. otherwise continue current mgmt. 02/11: continue current mgmt. check labs jeferson of 02/13. 02/12: Continue current plan. Check labs in AM. 02/13: Continue current treatment plan. Li level 0.68, CMZ level 8.6 02/14: Continue current regimen and plans 02/15: increase lithium to 750/900. T/C increasing tegretol in near future as well. gradually seems to be improving. 02/16: stable. continue current mgmt. has broached feeling depressed the past couple of days. 02/17: Continue current tx plan. 02/18: check labs in several days. stable, Sx much improved from prior but still clearly psychotic. 02/20: no changes 02/21: continue current mgmt. check labs soon. still psychotic, endorsing AH. 02/22: no change in presentation. check lithium and tegretol levels tomorrow. 02/23: tegretol 8.3, lithium 0.96. increase tegretol from 400 BID to 400/600 as of tonight. c/o restlessness, concern for akathisia. will review neuroleptics regimen if Sx do not improve in next several days (as might be the case if his restlessness is residual dante). also, AH continue. 02/24: stable. continue current mgmt. assess Sx over next week, then check tegretol level. 02/25: better related, discussed his post-discharge plans. family meeting late next week. continue current regimen, check labs around 03/02. 02/26: Continue plan of care discharge planning 02/27: Patient can not continues much improved states he feels much better without drug use no psychosis. 02/28: +RIS, bizarrely ends interview with MD by just getting up and walking away without a look or a word. increase prolixin 5 TID to 7.5 TID for psychosis. otherwise continue current mgmt. 03/01: continue current mgmt. tired today, stayed in bed. 03/02: tired again, rouses himself to sit up for interview. latency of response, asks MD to repeat question once, but denies AH. continue current mgmt. 03/03: more up and about today. unconvincingly denies AH. continue current mgmt. check labs tonight. 03/04: labs reviewed with pt, that they are reassuring and medication levels are good. tegretol 9.6, lithium 0.76. continue current mgmt. 03/05: Continue current regimen and plans. 03/06: Continue current plans and regimen 03/07: continue current mgmt. mtg btwn SW and pt's family held today. 03/08: Continue current tx plan. 03/09: Patient presents guarded during 1:1. He reports feeling okay today; states he is sleeping well. Isolative. Pt reports he doesn't go to groups because I don't learn anything . Denies SI/HI/VH/AH. Continue current tx plan. 03/10: Patient presents guarded and brief today. He reports feeling good . Pt stated, I don't need anything Denies SI/HI/VH/AH. 03/11: periods of cogency and periods of apparent thought disorganization. denying Sx but appears to still be RIS and distracted. continue current mgmt for now. 03/12 continue same treatment. 03/13 continue same treatment. Reason for continued inpatient stay Substantial Risk for: inability to function, rapid decompensation and med/psych decompensation Time Spent With Patient Time: Total time managing care of this patient today __20__ minutes.
[2023-03-13 20:14] VITALS: BP 135/73; PULSE 99; TEMP 36.2; O2SAT 98
[2023-03-13] MEDS: carBAMazepine ER 200 MG TAB.ER.12H 600 MG PO (20:46)
[2023-03-13] MEDS: chlorproMAZINE HCl 100 MG TABLET 200 MG PO (20:46)
[2023-03-13] MEDS: Lithium Carbonate ER 450 MG TABLET.ER 900 MG PO (20:47)
[2023-03-14] MEDS: chlorproMAZINE HCl 100 MG TABLET PO ×3 (07:29→14:10)
[2023-03-14 08:25] VITALS: BP 128/75; PULSE 72; RESP 16; TEMP 36.6; O2SAT 97
[2023-03-14] MEDS: Benztropine Mesylate 1 MG TABLET PO ×2 (09:08→20:47)
[2023-03-14] MEDS: Folic Acid 1 MG TABLET PO (09:08)
[2023-03-14] MEDS: Lithium Carbonate ER 450 MG TABLET.ER PO (09:08)
[2023-03-14] MEDS: carBAMazepine 200 MG TABLET 400 MG PO (09:08)
[2023-03-14] MEDS: fluPHENAZine HCl 2.5 MG TABLET 7.5 MG PO ×3 (09:08→20:45)
[2023-03-14] MEDS: Lithium Carbonate ER 300 MG TABLET.ER PO (09:08)
[2023-03-14] MEDS: Thiamine HCL 100 MG TABLET PO (09:09)
--- NOTE | 2023-03-14 15:42 | HO.PSYCHPN ---
Subjective Subjective Date of Service: 03/14/23 Reason For Visit: Psychosis Interim History: reasonably well-related. calm, cooperative. denies AH. states he is feeling well. some word-finding difficulties. per staff, annoyed with loud and intrusive roommate. Mental Status Exam Mental Status Exam Narrative: Pt is alert and oriented; behavior is guarded and calm; dressed in casual attire; mood is described as good ; eye contact appropriate; Speech is normal rate, volume and prosody and not pressured; thought process is variably organized to appearing to have word-finding difficulties; otherwise pertinent to relevant topics and without any delusional content, paranoid ideations or grandiosity; denies SI/HI/AH. Diagnostics Vital Signs (24Hr): Vital Signs - 24 hr 03/13/23 20:14 03/14/23 08:25 Temperature 97.1 F 97.9 F Pulse Rate 99 72 Respiratory Rate 16 Blood Pressure 135/73 128/75 Pulse Oximetry 98 97 Oxygen Delivery Method Room Air Room Air BMI result Body Mass Index 29.1 Labs 03/03/23 20:10 03/03/23 20:10 Medications Medications Current Medications Acetaminophen (Acetaminophen 325 Mg Tablet) 650 mg PO Q6H PRN PRN Reason: Headache/Pain Mild Scale (1-3) Last Admin: 03/13/23 10:24 Dose: 650 mg Al Hydroxide/Mg Hydroxide (Magnesium Hydrox/Alum Hydrox 30 Ml Oral.Susp) 30 ml PO Q6H PRN PRN Reason: Heartburn/Nausea Last Admin: 01/29/23 22:57 Dose: 30 ml Benzocaine (Throat Lozenge, Medicated Lozenge) 1 lozenge MUCOUS MEM Q2H PRN PRN Reason: Sore Throat Last Admin: 02/07/23 21:47 Dose: 1 lozenge Benztropine Mesylate (Benztropine Mesylate 1 Mg Tablet) 1 mg PO BID LEONOR Last Admin: 03/14/23 09:08 Dose: 1 mg Carbamazepine (Carbamazepine 200 Mg Tablet) 400 mg PO DAILY LEONOR Last Admin: 03/14/23 09:08 Dose: 400 mg Carbamazepine (Carbamazepine Er 200 Mg Tab.Er.12h) 600 mg PO BEDTIME LEONOR Last Admin: 03/13/23 20:46 Dose: 600 mg Chlorpromazine HCl (Chlorpromazine Hcl 100 Mg Tablet) 200 mg PO BEDTIME LEONOR Last Admin: 03/13/23 20:46 Dose: 200 mg Chlorpromazine HCl (Chlorpromazine Hcl 100 Mg Tablet) 100 mg PO BID@0900,1300 [facility] Last Admin: 03/14/23 14:10 Dose: 100 mg Chlorpromazine HCl (Chlorpromazine Hcl 100 Mg Tablet) 100 mg PO Q4H PRN PRN Reason: agitation/anxiety Last Admin: 03/14/23 07:29 Dose: 100 mg Clonidine HCl (Clonidine Hcl 0.1 Mg Tablet) 0.1 mg PO Q2H PRN; Protocol PRN Reason: agitation/signs of opioid withdrawal Last Admin: 02/15/23 19:47 Dose: 0.1 mg Diphenhydramine HCl (Diphenhydramine Hcl 25 Mg Capsule) 50 mg PO Q6H PRN PRN Reason: Allergic Symptoms Last Admin: 03/09/23 16:00 Dose: 50 mg Fluphenazine HCl (Fluphenazine Hcl 2.5 Mg/Ml 10 Ml Vial) 5 mg IM TID PRN PRN Reason: refusal of PO fluphenazine Fluphenazine HCl (Fluphenazine Hcl 2.5 Mg Tablet) 7.5 mg PO TID [facility] Last Admin: 03/14/23 15:07 Dose: 7.5 mg Folic Acid (Folic Acid 1 Mg Tablet) 1 mg PO DAILY [facility] Last Admin: 03/14/23 09:08 Dose: 1 mg Brownwood Carbonate (Brownwood Carbonate Er 450 Mg Tablet.Er) 900 mg PO BEDTIME [facility] Last Admin: 03/13/23 20:47 Dose: 900 mg [place] Carbonate (Brownwood Carbonate Er 300 Mg Tablet.Er) 300 mg PO DAILY [facility] Last Admin: 03/14/23 09:08 Dose: 300 mg [place] Carbonate (Brownwood Carbonate Er 450 Mg Tablet.Er) 450 mg PO DAILY [facility] Last Admin: 03/14/23 09:08 Dose: 450 mg Magnesium Hydroxide (Milk Of Magnesia 30 Ml Oral.Susp) 30 ml PO DAILY PRN PRN Reason: Constipation Multi-Ingred Cream/Lotion/Oil/Oint (Mineral Oil/Petrolatum,White 106 Gm Tube) 1 appl TOPICAL BID [facility]; Protocol Last Admin: 03/14/23 10:36 Dose: Not Given Nicotine (Nicotine 21 Mg Patch.Td24) 21 mg TRANSDERMA DAILY PRN PRN Reason: smoking cessation Last Admin: 01/15/23 16:06 Dose: 21 mg Nicotine Polacrilex (Nicotine Polacrilex 2 Mg Gum) 4 mg BUCCAL Q2H PRN PRN Reason: nicotine cravings Last Admin: 02/09/23 11:45 Dose: 4 mg Ondansetron HCl (Ondansetron Odt 4 Mg Tab.Rapdis) 4 mg TRANSLINGU Q6H PRN PRN Reason: Nausea and Vomiting Last Admin: 01/28/23 14:44 Dose: 4 mg Thiamine HCl (Thiamine Hcl 100 Mg Tablet) 100 mg PO DAILY LEONOR Last Admin: 03/14/23 09:09 Dose: 100 mg Trazodone HCl (Trazodone Hcl 50 Mg Tablet) 50 mg PO BEDTIME MRX1 PRN PRN Reason: Insomnia Last Admin: 02/12/23 20:55 Dose: 50 mg Allergies Allergies Allergy/AdvReac Type Severity Reaction Status Date / Time morphine [MORPHINE] AdvReac Unknown NAUSEA Verified 12/10/22 19:56 Assessment & Plan Assessment & Plan (1) Nonspecific ST-T wave electrocardiographic changes: Status: Acute Code(s): R94.31 - Abnormal electrocardiogram [ECG] [EKG] (2) Cocaine use disorder: Status: Acute Code(s): F14.10 - Cocaine abuse, uncomplicated (3) Schizoaffective disorder, bipolar type: Status: Acute Code(s): F25.0 - Schizoaffective disorder, bipolar type (4) Opioid use disorder: Status: Acute Code(s): F11.90 - Opioid use, unspecified, uncomplicated Plan 12/24: attempt to give anti-psychotics. comfort meds for opioid and cocaine withdrawal. 12/25: refusing medications. period of agitation last night slamming doors and yelling (presumably @AH). continue current mgmt. 12/26: refusing meds. binging and purging. floridly psychotic. 12/27: had meds last night for sleep, per his request. schedule all haldol tonight with ativan and cogentin. a bit more interactive today, remains delayed and distracted. no binging/purging behaviors or agitated behaviors described by RN report today. 12/28: refused meds last night. Today asks for meds for sx mgt- aggressive today-threw two coffee cups. Begin Depakote 250 mg bid. 12/29: got multiple meds last NOC and overnight per his request. slept 2 hours. refusing meds this morning. commitment paperwork completed. 3-day notice expires tomorrow. c/o opioid craving, asked for methadone. methadone 30 mg daily started today. 12/30: filed for commitment today. haldol and ativan per his request last night. appears in disbelief that he will not be discharged today. 12/31: demanding to leave, getting agitated, banging on nursing station, slamming doors in his room. given IMs x 2, haldol 10 ativan 2 benadryl 50 for first and thorazine 100 for second. 01/01: Remains unpredictable and irritable. Refusing scheduled medications. Section 7/ filed. 01/02: Continue current management. 01/03: refusing meds. irritable, labile. periods of agitation. continue current mgmt, awaiting hearing for . 01/04: refusing meds. irritable, labile. periods of agitation. continue current mgmt, though pt is refusing meds. 01/05: thought-blocked. denies mental illness or need for medications. offer medications. hearing tomorrow. 01/06: committed and ordered medications at hearing. 06/12/20 [facility] [place] summary reviewd, pt was discharged on VPA, zyprexa, haldol. 03/14/20 DC summary reviewed, pt discharged on zyprexa, haldol. pt unable to comprehend result, agitated not to be leaving today. 01/07: copy of court order on unit, will order meds accordingly today. no change in presentation. 01/08: Continue current regimen and plans 01/09: Continue current plans and regimen. Discontinue contingent IM Ativan if Depakote refused 01/10: Continue current regimen and plans. 01/11: DC VPA, start tegretol per pt preference. ativan 2 mg IM for refusal of tegretol. continue haldol PO/IM orders. improved from last week. less agitated, a bit more organized and engaging. 01/12: appears more disorganized again today, trouble engaging. refused PO meds last night but did take tegretol PO this morning. 01/13: continues disorganized, difficulty expressing himself. refusing PO meds since yesterday morning. slept 10 hours last night, however 01/14: intermittently taking meds PO versus IM. improved behavior from prior to med order, but remains floridly psychotic. continue current mgmt. 01/16/2023: No changes to current plan 01/17: more compliant with tegretol in recent days, still getting haldol IM. no change in presentation. continue current mgmt. 01/18: remains psychotic, labile. increase tegretol to 300 mg BID. 01/19: continues more aggressive and labile today. increase haldol to 10 BID with back-up IM of 7.5 mg. 01/20: more calm today,periods of agitation, however, in the past 24H. continue current mgmt. declines to change scheduled haldol to thorazine (proposed by MD in the hope he would in order to spare him the IMs). 01/21 continue tx. 01/22 writing for thorazine at bed- mr x1 and check ekg given other antipsychotics on board 01/23 agreed to ekg today, added 1pm dose of 5mg haldol 01/24: taking meds PO, still suffering from AH, possibly VH. perhaps trending more calm, but clearly still periods of agitation in the past several days. 01/25: labile, paranoid delusions. informed staff he experiences AH, mumbles recently. increase tegretol to 400 BID, make IR formulation as he has been chewing the pills. 01/26: more calm today. continue current mgmt. 01/27: continues more calm. some staff concerned for akathisia due to pacing and number of PRNs taken, but appears to be doing less walking than he had been before, does not appear restless or uncomfortable. continue current mgmt, check tegretol level 2 weeks after dose change (02/08). 01/28: stable presentation. intermittent sleep disturbance. continue current mgmt. 01/29: Continue current management. Benadryl for allergies 01/30: Continue current plan of care. 01/31: continues to ask for lots of PRNs. no change in presentation. 01/28 mild anemia and hyponatremia; trend. tegretol level 10.3. 02/01: series of abnormal and dynamic EKGs; today's WNL. cardiology consult requested for opinion. will start lithium pending cards opinion re EKG series. no change in presentation. 02/02: appreciate cardiology consultation and opinion. echocardiogram ordered. lithium started. appears better able to tolerate longer interaction today. 02/03: improved ability to tolerate social engagements continues. feels lithium has been helpful. akathisia likely. decrease haldol 02/10/10 to 5 BID and add thorazine 25 BID at 0900 and 1300. 02/04: clear uptick in psychotic.manic behavior yesterday after haldol dose decrease. eloped today. increase thorazine to 100/100/200 with PRNS available. 02/05: no concerning behaviors since elopement yesterday. refused PO haldol last night, otherwise med compliant. 02/06: med-compliant, no concerning behaviors. continue current mgmt. 02/07: check BMP along with lithium level. stable presentation. 02/08: CBC/BMP not concerning. lithium 0.6, tegretol 9.0. increase lithium dosing from 600 BID to 600/900 as of taryn. DC haldol entirely out of concerns for akathisia. invega not a great option due to tegretol interaction. start prolixin PO with IM back-up as alternative neuroleptic to haldol. 02/09: Continue current tx plan. 02/10: increase prolixin from 5 BID to 5 TID. otherwise continue current mgmt. 02/11: continue current mgmt. check labs jeferson of 02/13. 02/12: Continue current plan. Check labs in AM. 02/13: Continue current treatment plan. Li level 0.68, CMZ level 8.6 02/14: Continue current regimen and plans 02/15: increase lithium to 750/900. T/C increasing tegretol in near future as well. gradually seems to be improving. 02/16: stable. continue current mgmt. has broached feeling depressed the past couple of days. 02/17: Continue current tx plan. 02/18: check labs in several days. stable, Sx much improved from prior but still clearly psychotic. 02/20: no changes 02/21: continue current mgmt. check labs soon. still psychotic, endorsing AH. 02/22: no change in presentation. check lithium and tegretol levels tomorrow. 02/23: tegretol 8.3, lithium 0.96. increase tegretol from 400 BID to 400/600 as of tonight. c/o restlessness, concern for akathisia. will review neuroleptics regimen if Sx do not improve in next several days (as might be the case if his restlessness is residual dante). also, AH continue. 02/24: stable. continue current mgmt. assess Sx over next week, then check tegretol level. 02/25: better related, discussed his post-discharge plans. family meeting late next week. continue current regimen, check labs around 03/02. 02/26: Continue plan of care discharge planning 02/27: Patient can not continues much improved states he feels much better without drug use no psychosis. 02/28: +RIS, bizarrely ends interview with MD by just getting up and walking away without a look or a word. increase prolixin 5 TID to 7.5 TID for psychosis. otherwise continue current mgmt. 03/01: continue current mgmt. tired today, stayed in bed. 03/02: tired again, rouses himself to sit up for interview. latency of response, asks MD to repeat question once, but denies AH. continue current mgmt. 03/03: more up and about today. unconvincingly denies AH. continue current mgmt. check labs tonight. 03/04: labs reviewed with pt, that they are reassuring and medication levels are good. tegretol 9.6, lithium 0.76. continue current mgmt. 03/05: Continue current regimen and plans. 03/06: Continue current plans and regimen 03/07: continue current mgmt. mtg btwn SW and pt's family held today. 03/08: Continue current tx plan. 03/09: Patient presents guarded during 1:1. He reports feeling okay today; states he is sleeping well. Isolative. Pt reports he doesn't go to groups because I don't learn anything . Denies SI/HI/VH/AH. Continue current tx plan. 03/10: Patient presents guarded and brief today. He reports feeling good . Pt stated, I don't need anything Denies SI/HI/VH/AH. 03/11: periods of cogency and periods of apparent thought disorganization. denying Sx but appears to still be RIS and distracted. continue current mgmt for now. 03/12 continue same treatment. 03/13 continue same treatment. 03/14: continue current mgmt. plan to streamline medications regimen prior to discharge. T/C prolixin MENDES. Reason for continued inpatient stay Substantial Risk for: harm to self, inability to function and rapid decompensation Time Spent With Patient Time: Total time managing care of this patient today __25__ minutes.
[2023-03-14 19:30] VITALS: BP 129/74; PULSE 91; RESP 14; TEMP 36.3; O2SAT 97
[2023-03-14] MEDS: Milk of Magnesia 30 ML ORAL.SUSP PO (20:03)
[2023-03-14] MEDS: carBAMazepine ER 200 MG TAB.ER.12H 600 MG PO (20:45)
[2023-03-14] MEDS: Lithium Carbonate ER 450 MG TABLET.ER 900 MG PO (20:45)
[2023-03-14] MEDS: traZODone HCL 50 MG TABLET PO (20:46)
[2023-03-14] MEDS: chlorproMAZINE HCl 100 MG TABLET 200 MG PO (20:46)
[2023-03-15 06:00] VITALS: BP 111/59; PULSE 76; TEMP 36.7; O2SAT 98
[2023-03-15] MEDS: Lithium Carbonate ER 300 MG TABLET.ER PO (08:48)
[2023-03-15] MEDS: Thiamine HCL 100 MG TABLET PO (08:48)
[2023-03-15] MEDS: Lithium Carbonate ER 450 MG TABLET.ER PO (08:49)
[2023-03-15] MEDS: carBAMazepine 200 MG TABLET 400 MG PO (08:49)
[2023-03-15] MEDS: fluPHENAZine HCl 2.5 MG TABLET 7.5 MG PO ×3 (08:49→21:10)
[2023-03-15] MEDS: chlorproMAZINE HCl 100 MG TABLET PO ×2 (08:50→12:51)
[2023-03-15] MEDS: Benztropine Mesylate 1 MG TABLET PO ×2 (08:50→21:08)
[2023-03-15] MEDS: Folic Acid 1 MG TABLET PO (08:50)
--- NOTE | 2023-03-15 09:27 | P.PNPSI_ITS ---
Subjective Subjective Date of Service: 03/15/23 Reason For Visit: Psychosis Subjective Notes: Section 8 Interim History: Reviewed with . Patient presents guarded during 1:1. He reports feeling okay ; states he is sleeping well. Isolative. Pt stated, I don't need anything Denies SI/HI/VH/AH. Medication Compliance: Yes Side effects from medications: No Attending Groups: No Review of Systems Constitutional: Reports as per HPI Eyes: Reports as per HPI Reports as per HPI Cardiovascular: Reports as per HPI Respiratory: Reports as per HPI Gastrointestinal: Reports as per HPI Genitourinary: Reports as per HPI Musculoskeletal: Reports as per HPI Skin/Breast: Reports as per HPI Reports as per HPI Psychiatric: Reports as per HPI Endocrine: Reports as per HPI Hematologic/Lymphatic: Reports as per HPI Allergic/Immunologic: Reports as per HPI Mental Status Exam Mental Status Exam Narrative: Pt is alert and oriented; behavior is guarded and calm; dressed in casual attire; mood is described as good ; eye contact appropriate; Speech is normal rate, volume and prosody and not pressured; thought process is organized; otherwise pertinent to relevant topics and without any delusional content, paranoid ideations or grandiosity; denies SI/HI. There is no evidence of perceptual disturbance. Diagnostics Vital Signs (24Hr): Vital Signs - 24 hr 03/14/23 19:30 03/15/23 06:00 Temperature 97.4 F 98.0 F Pulse Rate 91 76 Respiratory Rate 14 Blood Pressure 129/74 111/59 L Pulse Oximetry 97 98 Oxygen Delivery Method Room Air Room Air BMI result Body Mass Index 29.1 Labs 03/03/23 20:10 03/03/23 20:10 Medications Medications Current Medications Acetaminophen (Acetaminophen 325 Mg Tablet) 650 mg PO Q6H PRN PRN Reason: Headache/Pain Mild Scale (1-3) Last Admin: 03/13/23 10:24 Dose: 650 mg Al Hydroxide/Mg Hydroxide (Magnesium Hydrox/Alum Hydrox 30 Ml Oral.Susp) 30 ml PO Q6H PRN PRN Reason: Heartburn/Nausea Last Admin: 01/29/23 22:57 Dose: 30 ml Benzocaine (Throat Lozenge, Medicated Lozenge) 1 lozenge MUCOUS MEM Q2H PRN PRN Reason: Sore Throat Last Admin: 02/07/23 21:47 Dose: 1 lozenge Benztropine Mesylate (Benztropine Mesylate 1 Mg Tablet) 1 mg PO BID [facility] Last Admin: 03/15/23 08:50 Dose: 1 mg Carbamazepine (Carbamazepine 200 Mg Tablet) 400 mg PO DAILY [facility] Last Admin: 03/15/23 08:49 Dose: 400 mg Carbamazepine (Carbamazepine Er 200 Mg Tab.Er.12h) 600 mg PO BEDTIME [facility] Last Admin: 03/14/23 20:45 Dose: 600 mg Chlorpromazine HCl (Chlorpromazine Hcl 100 Mg Tablet) 200 mg PO BEDTIME [facility] Last Admin: 03/14/23 20:46 Dose: 200 mg Chlorpromazine HCl (Chlorpromazine Hcl 100 Mg Tablet) 100 mg PO BID@0900,1300 [facility] Last Admin: 03/15/23 08:50 Dose: 100 mg Chlorpromazine HCl (Chlorpromazine Hcl 100 Mg Tablet) 100 mg PO Q4H PRN PRN Reason: agitation/anxiety Last Admin: 03/14/23 07:29 Dose: 100 mg Clonidine HCl (Clonidine Hcl 0.1 Mg Tablet) 0.1 mg PO Q2H PRN; Protocol PRN Reason: agitation/signs of opioid withdrawal Last Admin: 02/15/23 19:47 Dose: 0.1 mg Diphenhydramine HCl (Diphenhydramine Hcl 25 Mg Capsule) 50 mg PO Q6H PRN PRN Reason: Allergic Symptoms Last Admin: 03/09/23 16:00 Dose: 50 mg Fluphenazine HCl (Fluphenazine Hcl 2.5 Mg/Ml 10 Ml Vial) 5 mg IM TID PRN PRN Reason: refusal of PO fluphenazine Fluphenazine HCl (Fluphenazine Hcl 2.5 Mg Tablet) 7.5 mg PO TID [facility] Last Admin: 03/15/23 08:49 Dose: 7.5 mg Folic Acid (Folic Acid 1 Mg Tablet) 1 mg PO DAILY [facility] Last Admin: 03/15/23 08:50 Dose: 1 mg Foreman Carbonate (Foreman Carbonate Er 450 Mg Tablet.Er) 900 mg PO BEDTIME [facility] Last Admin: 03/14/23 20:45 Dose: 900 mg Foreman Carbonate (Foreman Carbonate Er 300 Mg Tablet.Er) 300 mg PO DAILY [facility] Last Admin: 03/15/23 08:48 Dose: 300 mg Foreman Carbonate (Foreman Carbonate Er 450 Mg Tablet.Er) 450 mg PO DAILY [facility] Last Admin: 03/15/23 08:49 Dose: 450 mg Magnesium Hydroxide (Milk Of Magnesia 30 Ml Oral.Susp) 30 ml PO DAILY PRN PRN Reason: Constipation Last Admin: 03/14/23 20:03 Dose: 30 ml Multi-Ingred Cream/Lotion/Oil/Oint (Mineral Oil/Petrolatum,White 106 Gm Tube) 1 appl TOPICAL BID [facility]; Protocol Last Admin: 03/15/23 08:52 Dose: Not Given Nicotine (Nicotine 21 Mg Patch.Td24) 21 mg TRANSDERMA DAILY PRN PRN Reason: smoking cessation Last Admin: 01/15/23 16:06 Dose: 21 mg Nicotine Polacrilex (Nicotine Polacrilex 2 Mg Gum) 4 mg BUCCAL Q2H PRN PRN Reason: nicotine cravings Last Admin: 02/09/23 11:45 Dose: 4 mg Ondansetron HCl (Ondansetron Odt 4 Mg Tab.Rapdis) 4 mg TRANSLINGU Q6H PRN PRN Reason: Nausea and Vomiting Last Admin: 01/28/23 14:44 Dose: 4 mg Thiamine HCl (Thiamine Hcl 100 Mg Tablet) 100 mg PO DAILY [facility] Last Admin: 03/15/23 08:48 Dose: 100 mg Trazodone HCl (Trazodone Hcl 50 Mg Tablet) 50 mg PO BEDTIME MRX1 PRN PRN Reason: Insomnia Last Admin: 03/14/23 20:46 Dose: 50 mg Allergies Allergies Allergy/AdvReac Type Severity Reaction Status Date / Time morphine [MORPHINE] AdvReac Unknown NAUSEA Verified 12/10/22 19:56 Assessment & Plan Assessment & Plan (1) Nonspecific ST-T wave electrocardiographic changes: Status: Acute Code(s): R94.31 - Abnormal electrocardiogram [ECG] [EKG] (2) Cocaine use disorder: Status: Acute Code(s): F14.10 - Cocaine abuse, uncomplicated (3) Schizoaffective disorder, bipolar type: Status: Acute Code(s): F25.0 - Schizoaffective disorder, bipolar type (4) Opioid use disorder: Status: Acute Code(s): F11.90 - Opioid use, unspecified, uncomplicated Plan 12/24: attempt to give anti-psychotics. comfort meds for opioid and cocaine withdrawal. 12/25: refusing medications. period of agitation last night slamming doors and yelling (presumably @AH). continue current mgmt. 12/26: refusing meds. binging and purging. floridly psychotic. 12/27: had meds last night for sleep, per his request. schedule all haldol tonight with ativan and cogentin. a bit more interactive today, remains delayed and distracted. no binging/purging behaviors or agitated behaviors described by RN report today. 12/28: refused meds last night. Today asks for meds for sx mgt- aggressive today- threw two coffee cups. Begin Depakote 250 mg bid. 12/29: got multiple meds last NOC and overnight per his request. slept 2 hours. refusing meds this morning. commitment paperwork completed. 3-day notice expires tomorrow. c/o opioid craving, asked for methadone. methadone 30 mg daily started today. 12/30: filed for commitment today. haldol and ativan per his request last night. appears in disbelief that he will not be discharged today. 12/31: demanding to leave, getting agitated, banging on nursing station, slamming doors in his room. given IMs x 2, haldol 10 ativan 2 benadryl 50 for first and thorazine 100 for second. 01/01: Remains unpredictable and irritable. Refusing scheduled medications. Section 7/8 filed. 01/02: Continue current management. 01/03: refusing meds. irritable, labile. periods of agitation. continue current mgmt, awaiting hearing for . 01/04: refusing meds. irritable, labile. periods of agitation. continue current mgmt, though pt is refusing meds. 01/05: thought-blocked. denies mental illness or need for medications. offer medications. hearing tomorrow. 01/06: committed and ordered medications at hearing. 06/12/20 [facility] DC summary reviewd, pt was discharged on VPA, zyprexa, haldol. 03/14/20 DC summary reviewed, pt discharged on zyprexa, haldol. pt unable to comprehend result, agitated not to be leaving today. 01/07: copy of court order on unit, will order meds accordingly today. no change in presentation. 01/08: Continue current regimen and plans 01/09: Continue current plans and regimen. Discontinue contingent IM Ativan if Depakote refused 01/10: Continue current regimen and plans. 01/11: DC VPA, start tegretol per pt preference. ativan 2 mg IM for refusal of tegretol. continue haldol PO/IM orders. improved from last week. less agitated, a bit more organized and engaging. 01/12: appears more disorganized again today, trouble engaging. refused PO meds last night but did take tegretol PO this morning. 01/13: continues disorganized, difficulty expressing himself. refusing PO meds since yesterday morning. slept 10 hours last night, however 01/14: intermittently taking meds PO versus IM. improved behavior from prior to med order, but remains floridly psychotic. continue current mgmt. 01/16/2023: No changes to current plan 01/17: more compliant with tegretol in recent days, still getting haldol IM. no change in presentation. continue current mgmt. 01/18: remains psychotic, labile. increase tegretol to 300 mg BID. 01/19: continues more aggressive and labile today. increase haldol to 10 BID with back-up IM of 7.5 mg. 01/20: more calm today,periods of agitation, however, in the past 24H. continue current mgmt. declines to change scheduled haldol to thorazine (proposed by MD in the hope he would in order to spare him the IMs). 01/21 continue tx. 01/22 writing for thorazine at bed- mr x1 and check ekg given other antipsychotics on board 01/23 agreed to ekg today, added 1pm dose of 5mg haldol 01/24: taking meds PO, still suffering from AH, possibly VH. perhaps trending more calm, but clearly still periods of agitation in the past several days. 01/25: labile, paranoid delusions. informed staff he experiences AH, mumbles recently. increase tegretol to 400 BID, make IR formulation as he has been chewing the pills. 01/26: more calm today. continue current mgmt. 01/27: continues more calm. some staff concerned for akathisia due to pacing and number of PRNs taken, but appears to be doing less walking than he had been before, does not appear restless or uncomfortable. continue current mgmt, check tegretol level 2 weeks after dose change (02/08). 01/28: stable presentation. intermittent sleep disturbance. continue current mgmt. 01/29: Continue current management. Benadryl for allergies 01/30: Continue current plan of care. 01/31: continues to ask for lots of PRNs. no change in presentation. 01/28 mild anemia and hyponatremia; trend. tegretol level 10.3. 02/01: series of abnormal and dynamic EKGs; today's WNL. cardiology consult requested for opinion. will start lithium pending cards opinion re EKG series. no change in presentation. 02/02: appreciate cardiology consultation and opinion. echocardiogram ordered. lithium started. appears better able to tolerate longer interaction today. 02/03: improved ability to tolerate social engagements continues. feels lithium has been helpful. akathisia likely. decrease haldol 02/10/10 to 5 BID and add thorazine 25 BID at 0900 and 1300. 02/04: clear uptick in psychotic.manic behavior yesterday after haldol dose decrease. eloped today. increase thorazine to 100/100/200 with PRNS available. 02/05: no concerning behaviors since elopement yesterday. refused PO haldol last night, otherwise med compliant. 02/06: med-compliant, no concerning behaviors. continue current mgmt. 02/07: check BMP along with lithium level. stable presentation. 02/08: CBC/BMP not concerning. lithium 0.6, tegretol 9.0. increase lithium dosing from 600 BID to 600/900 as of tonight. DC haldol entirely out of concerns for akathisia. invega not a great option due to tegretol interaction. start prolixin PO with IM back-up as alternative neuroleptic to haldol. 02/09: Continue current tx plan. 02/10: increase prolixin from 5 BID to 5 TID. otherwise continue current mgmt. 02/11: continue current mgmt. check labs jeferson of 02/13. 02/12: Continue current plan. Check labs in AM. 02/13: Continue current treatment plan. Li level 0.68, CMZ level 8.6 02/14: Continue current regimen and plans 02/15: increase lithium to 750/900. T/C increasing tegretol in near future as well. gradually seems to be improving. 02/16: stable. continue current mgmt. has broached feeling depressed the past couple of days. 02/17: Continue current tx plan. 02/18: check labs in several days. stable, Sx much improved from prior but still clearly psychotic. 02/20: no changes 02/21: continue current mgmt. check labs soon. still psychotic, endorsing AH. 02/22: no change in presentation. check lithium and tegretol levels tomorrow. 02/23: tegretol 8.3, lithium 0.96. increase tegretol from 400 BID to 400/600 as of tonight. c/o restlessness, concern for akathisia. will review neuroleptics regimen if Sx do not improve in next several days (as might be the case if his restlessness is residual dante). also, AH continue. 02/24: stable. continue current mgmt. assess Sx over next week, then check tegretol level. 02/25: better related, discussed his post-discharge plans. family meeting late next week. continue current regimen, check labs around 03/02. 02/26: Continue plan of care discharge planning 02/27: Patient can not continues much improved states he feels much better without drug use no psychosis. 02/28: +RIS, bizarrely ends interview with MD by just getting up and walking away without a look or a word. increase prolixin 5 TID to 7.5 TID for psychosis. otherwise continue current mgmt. 03/01: continue current mgmt. tired today, stayed in bed. 03/02: tired again, rouses himself to sit up for interview. latency of response, asks MD to repeat question once, but denies AH. continue current mgmt. 03/03: more up and about today. unconvincingly denies AH. continue current mgmt. check labs tonight. 03/04: labs reviewed with pt, that they are reassuring and medication levels are good. tegretol 9.6, lithium 0.76. continue current mgmt. 03/05: Continue current regimen and plans. 03/06: Continue current plans and regimen 03/07: continue current mgmt. mtg btwn SW and pt's family held today. 03/08: Continue current tx plan. 03/09: Patient presents guarded during 1:1. He reports feeling okay today; states he is sleeping well. Isolative. Pt reports he doesn't go to groups because I don't learn anything . Denies SI/HI/VH/AH. Continue current tx plan. 03/10: Patient presents guarded and brief today. He reports feeling good . Pt stated, I don't need anything Denies SI/HI/VH/AH. 03/11: periods of cogency and periods of apparent thought disorganization. denying Sx but appears to still be RIS and distracted. continue current mgmt for now. 03/12 continue same treatment. 03/13 continue same treatment. 03/14: continue current mgmt. plan to streamline medications regimen prior to discharge. T/C prolixin MENDES. 03/15: Continue current treatment plan. Patient educated on: diagnosis and medication risk/benefits Informed Consent: understands Reason for continued inpatient stay Substantial Risk for: med/psych decompensation Time Spent With Patient Time: Total time managing care of this patient today _30___ minutes.
[2023-03-15 21:05] VITALS: BP 124/67; PULSE 72; RESP 17; TEMP 36.5; O2SAT 98
[2023-03-15] MEDS: carBAMazepine ER 200 MG TAB.ER.12H 600 MG PO (21:08)
[2023-03-15] MEDS: chlorproMAZINE HCl 100 MG TABLET 200 MG PO (21:09)
[2023-03-15] MEDS: Lithium Carbonate ER 450 MG TABLET.ER 900 MG PO (21:10)
[2023-03-15] MEDS: traZODone HCL 50 MG TABLET PO (21:11)
[2023-03-16 06:00] VITALS: BP 103/63; PULSE 72; TEMP 36.5; O2SAT 98
[2023-03-16] MEDS: chlorproMAZINE HCl 100 MG TABLET PO ×2 (08:49→13:28)
[2023-03-16] MEDS: Thiamine HCL 100 MG TABLET PO (08:49)
[2023-03-16] MEDS: Lithium Carbonate ER 450 MG TABLET.ER PO (08:49)
[2023-03-16] MEDS: fluPHENAZine HCl 2.5 MG TABLET 7.5 MG PO ×3 (08:49→20:28)
[2023-03-16] MEDS: Benztropine Mesylate 1 MG TABLET PO ×2 (08:49→20:28)
[2023-03-16] MEDS: Folic Acid 1 MG TABLET PO (08:49)
[2023-03-16] MEDS: Lithium Carbonate ER 300 MG TABLET.ER PO (08:49)
[2023-03-16] MEDS: carBAMazepine 200 MG TABLET 400 MG PO (08:50)
--- NOTE | 2023-03-16 15:43 | HO.PSYCHPN ---
Subjective Subjective Date of Service: 03/16/23 Reason For Visit: Psychosis Interim History: calm, cooperative. denies AH. some HAMLET, distractedness. agreeable to take prolixin decanoate. discuss streamlining medications and which to DC for now. will decrease frequency of availability of thorazine PRN, but pt appears to have only taken it once or so in the past week. Mental Status Exam Mental Status Exam Narrative: Pt is alert and oriented; behavior is guarded and calm; dressed in casual attire; mood is described as good ; eye contact appropriate; Speech is normal rate, volume and prosody and not pressured; thought process is linear and logical, some HAMLET; otherwise pertinent to relevant topics and without any delusional content, paranoid ideations or grandiosity; no SI/HI/AVH expressed. Diagnostics Vital Signs (24Hr): Vital Signs - 24 hr 03/15/23 21:05 03/16/23 06:00 Temperature 97.7 F 97.7 F Pulse Rate 72 72 Respiratory Rate 17 Blood Pressure 124/67 103/63 Pulse Oximetry 98 98 Oxygen Delivery Method Room Air Room Air BMI result Body Mass Index 29.1 Labs 03/03/23 20:10 03/03/23 20:10 Medications Medications Current Medications Acetaminophen (Acetaminophen 325 Mg Tablet) 650 mg PO Q6H PRN PRN Reason: Headache/Pain Mild Scale (1-3) Last Admin: 03/13/23 10:24 Dose: 650 mg Al Hydroxide/Mg Hydroxide (Magnesium Hydrox/Alum Hydrox 30 Ml Oral.Susp) 30 ml PO Q6H PRN PRN Reason: Heartburn/Nausea Last Admin: 01/29/23 22:57 Dose: 30 ml Benztropine Mesylate (Benztropine Mesylate 1 Mg Tablet) 1 mg PO BID [facility] Last Admin: 03/16/23 08:49 Dose: 1 mg Carbamazepine (Carbamazepine 200 Mg Tablet) 400 mg PO DAILY [facility] Last Admin: 03/16/23 08:50 Dose: 400 mg Carbamazepine (Carbamazepine Er 200 Mg Tab.Er.12h) 600 mg PO BEDTIME [facility] Last Admin: 03/15/23 21:08 Dose: 600 mg Chlorpromazine HCl (Chlorpromazine Hcl 100 Mg Tablet) 200 mg PO BEDTIME [facility] Last Admin: 03/15/23 21:09 Dose: 200 mg Chlorpromazine HCl (Chlorpromazine Hcl 100 Mg Tablet) 100 mg PO BID@0900,1300 [facility] Last Admin: 03/16/23 13:28 Dose: 100 mg Chlorpromazine HCl (Chlorpromazine Hcl 100 Mg Tablet) 100 mg PO DAILY PRN PRN Reason: agitation/anxiety Fluphenazine HCl (Fluphenazine Hcl 2.5 Mg/Ml 10 Ml Vial) 5 mg IM TID PRN PRN Reason: refusal of PO fluphenazine Fluphenazine HCl (Fluphenazine Hcl 2.5 Mg Tablet) 7.5 mg PO TID [facility] Last Admin: 03/16/23 08:49 Dose: 7.5 mg [place] Carbonate ([place] Carbonate Er 450 Mg Tablet.Er) 900 mg PO BEDTIME [facility] Last Admin: 03/15/23 21:10 Dose: 900 mg [place] Carbonate ([place] Carbonate Er 300 Mg Tablet.Er) 300 mg PO DAILY [facility] Last Admin: 03/16/23 08:49 Dose: 300 mg [place] Carbonate ([place] Carbonate Er 450 Mg Tablet.Er) 450 mg PO DAILY [facility] Last Admin: 03/16/23 08:49 Dose: 450 mg Magnesium Hydroxide (Milk Of Magnesia 30 Ml Oral.Susp) 30 ml PO DAILY PRN PRN Reason: Constipation Last Admin: 03/14/23 20:03 Dose: 30 ml Multi-Ingred Cream/Lotion/Oil/Oint (Mineral Oil/Petrolatum,White 106 Gm Tube) 1 appl TOPICAL BID [facility]; Protocol Last Admin: 03/16/23 08:53 Dose: Not Given Nicotine (Nicotine 21 Mg Patch.Td24) 21 mg TRANSDERMA DAILY PRN PRN Reason: smoking cessation Last Admin: 01/15/23 16:06 Dose: 21 mg Nicotine Polacrilex (Nicotine Polacrilex 2 Mg Gum) 4 mg BUCCAL Q2H PRN PRN Reason: nicotine cravings Last Admin: 02/09/23 11:45 Dose: 4 mg Allergies Allergies Allergy/AdvReac Type Severity Reaction Status Date / Time morphine [MORPHINE] AdvReac Unknown NAUSEA Verified 12/10/22 19:56 Assessment & Plan Assessment & Plan (1) Nonspecific ST-T wave electrocardiographic changes: Status: Acute Code(s): R94.31 - Abnormal electrocardiogram [ECG] [EKG] (2) Cocaine use disorder: Status: Acute Code(s): F14.10 - Cocaine abuse, uncomplicated (3) Schizoaffective disorder, bipolar type: Status: Acute Code(s): F25.0 - Schizoaffective disorder, bipolar type (4) Opioid use disorder: Status: Acute Code(s): F11.90 - Opioid use, unspecified, uncomplicated Plan 12/24: attempt to give anti-psychotics. comfort meds for opioid and cocaine withdrawal. 12/25: refusing medications. period of agitation last night slamming doors and yelling (presumably @AH). continue current mgmt. 12/26: refusing meds. binging and purging. floridly psychotic. 12/27: had meds last night for sleep, per his request. schedule all haldol tonight with ativan and cogentin. a bit more interactive today, remains delayed and distracted. no binging/purging behaviors or agitated behaviors described by RN report today. 12/28: refused meds last night. Today asks for meds for sx mgt- aggressive today-threw two coffee cups. Begin Depakote 250 mg bid. 12/29: got multiple meds last NOC and overnight per his request. slept 2 hours. refusing meds this morning. commitment paperwork completed. 3-day notice expires tomorrow. c/o opioid craving, asked for methadone. methadone 30 mg daily started today. 12/30: filed for commitment today. haldol and ativan per his request last night. appears in disbelief that he will not be discharged today. 12/31: demanding to leave, getting agitated, banging on nursing station, slamming doors in his room. given IMs x 2, haldol 10 ativan 2 benadryl 50 for first and thorazine 100 for second. 01/01: Remains unpredictable and irritable. Refusing scheduled medications. Section 7/ filed. 01/02: Continue current management. 01/03: refusing meds. irritable, labile. periods of agitation. continue current mgmt, awaiting hearing for . 01/04: refusing meds. irritable, labile. periods of agitation. continue current mgmt, though pt is refusing meds. 01/05: thought-blocked. denies mental illness or need for medications. offer medications. hearing tomorrow. 01/06: committed and ordered medications at hearing. [place] [facility] [place] pt was discharged on VPA, zyprexa, haldol. 03/14/20 DC summary reviewed, pt discharged on zyprexa, haldol. pt unable to comprehend result, agitated not to be leaving today. 01/07: copy of court order on unit, will order meds accordingly today. no change in presentation. 01/08: Continue current regimen and plans 01/09: Continue current plans and regimen. Discontinue contingent IM Ativan if Depakote refused 01/10: Continue current regimen and plans. 01/11: DC VPA, start tegretol per pt preference. ativan 2 mg IM for refusal of tegretol. continue haldol PO/IM orders. improved from last week. less agitated, a bit more organized and engaging. 01/12: appears more disorganized again today, trouble engaging. refused PO meds last night but did take tegretol PO this morning. 01/13: continues disorganized, difficulty expressing himself. refusing PO meds since yesterday morning. slept 10 hours last night, however 01/14: intermittently taking meds PO versus IM. improved behavior from prior to med order, but remains floridly psychotic. continue current mgmt. 01/16/2023: No changes to current plan 01/17: more compliant with tegretol in recent days, still getting haldol IM. no change in presentation. continue current mgmt. 01/18: remains psychotic, labile. increase tegretol to 300 mg BID. 01/19: continues more aggressive and labile today. increase haldol to 10 BID with back-up IM of 7.5 mg. 01/20: more calm today,periods of agitation, however, in the past 24H. continue current mgmt. declines to change scheduled haldol to thorazine (proposed by MD in the hope he would in order to spare him the IMs). 01/21 continue tx. 01/22 writing for thorazine at bed- mr x1 and check ekg given other antipsychotics on board 01/23 agreed to ekg today, added 1pm dose of 5mg haldol 01/24: taking meds PO, still suffering from AH, possibly VH. perhaps trending more calm, but clearly still periods of agitation in the past several days. 01/25: labile, paranoid delusions. informed staff he experiences AH, mumbles recently. increase tegretol to 400 BID, make IR formulation as he has been chewing the pills. 01/26: more calm today. continue current mgmt. 01/27: continues more calm. some staff concerned for akathisia due to pacing and number of PRNs taken, but appears to be doing less walking than he had been before, does not appear restless or uncomfortable. continue current mgmt, check tegretol level 2 weeks after dose change (02/08). 01/28: stable presentation. intermittent sleep disturbance. continue current mgmt. 01/29: Continue current management. Benadryl for allergies 01/30: Continue current plan of care. 01/31: continues to ask for lots of PRNs. no change in presentation. 01/28 mild anemia and hyponatremia; trend. tegretol level 10.3. 02/01: series of abnormal and dynamic EKGs; today's WNL. cardiology consult requested for opinion. will start lithium pending cards opinion re EKG series. no change in presentation. 02/02: appreciate cardiology consultation and opinion. echocardiogram ordered. lithium started. appears better able to tolerate longer interaction today. 02/03: improved ability to tolerate social engagements continues. feels lithium has been helpful. akathisia likely. decrease haldol 02/10/10 to 5 BID and add thorazine 25 BID at 0900 and 1300. 02/04: clear uptick in psychotic.manic behavior yesterday after haldol dose decrease. eloped today. increase thorazine to 100/100/200 with PRNS available. 02/05: no concerning behaviors since elopement yesterday. refused PO haldol last night, otherwise med compliant. 02/06: med-compliant, no concerning behaviors. continue current mgmt. 02/07: check BMP along with lithium level. stable presentation. 02/08: CBC/BMP not concerning. lithium 0.6, tegretol 9.0. increase lithium dosing from 600 BID to 600/900 as of tonight. DC haldol entirely out of concerns for akathisia. invega not a great option due to tegretol interaction. start prolixin PO with IM back-up as alternative neuroleptic to haldol. 02/09: Continue current tx plan. 02/10: increase prolixin from 5 BID to 5 TID. otherwise continue current mgmt. 02/11: continue current mgmt. check labs jeferson of 02/13. 02/12: Continue current plan. Check labs in AM. 02/13: Continue current treatment plan. Li level 0.68, CMZ level 8.6 02/14: Continue current regimen and plans 02/15: increase lithium to 750/900. T/C increasing tegretol in near future as well. gradually seems to be improving. 02/16: stable. continue current mgmt. has broached feeling depressed the past couple of days. 02/17: Continue current tx plan. 02/18: check labs in several days. stable, Sx much improved from prior but still clearly psychotic. 02/20: no changes 02/21: continue current mgmt. check labs soon. still psychotic, endorsing AH. 02/22: no change in presentation. check lithium and tegretol levels tomorrow. 02/23: tegretol 8.3, lithium 0.96. increase tegretol from 400 BID to 400/600 as of tonight. c/o restlessness, concern for akathisia. will review neuroleptics regimen if Sx do not improve in next several days (as might be the case if his restlessness is residual dante). also, AH continue. 02/24: stable. continue current mgmt. assess Sx over next week, then check tegretol level. 02/25: better related, discussed his post-discharge plans. family meeting late next week. continue current regimen, check labs around 03/02. 02/26: Continue plan of care discharge planning 02/27: Patient can not continues much improved states he feels much better without drug use no psychosis. 02/28: +RIS, bizarrely ends interview with MD by just getting up and walking away without a look or a word. increase prolixin 5 TID to 7.5 TID for psychosis. otherwise continue current mgmt. 03/01: continue current mgmt. tired today, stayed in bed. 03/02: tired again, rouses himself to sit up for interview. latency of response, asks MD to repeat question once, but denies AH. continue current mgmt. 03/03: more up and about today. unconvincingly denies AH. continue current mgmt. check labs tonight. 03/04: labs reviewed with pt, that they are reassuring and medication levels are good. tegretol 9.6, lithium 0.76. continue current mgmt. 03/05: Continue current regimen and plans. 03/06: Continue current plans and regimen 03/07: continue current mgmt. mt btwn SW and pt's family held today. 03/08: Continue current tx plan. 03/09: Patient presents guarded during 1:1. He reports feeling okay today; states he is sleeping well. Isolative. Pt reports he doesn't go to groups because I don't learn anything . Denies SI/HI/VH/AH. Continue current tx plan. 03/10: Patient presents guarded and brief today. He reports feeling good . Pt stated, I don't need anything Denies SI/HI/VH/AH. 03/11: periods of cogency and periods of apparent thought disorganization. denying Sx but appears to still be RIS and distracted. continue current mgmt for now. 03/12 continue same treatment. 03/13 continue same treatment. 03/14: continue current mgmt. plan to streamline medications regimen prior to discharge. T/C prolixin EMNDES. 03/15: Continue current treatment plan. 03/16: streamlining meds today. decrease thorazine PRN availability. start prolixin decanoate tomorrow morning, will decrease PO prolixin by about half once the injection is given. continue other medications for now. Reason for continued inpatient stay Substantial Risk for: inability to function and rapid decompensation Time Spent With Patient Time: Total time managing care of this patient today __35__ minutes.
[2023-03-16 20:20] VITALS: BP 100/55; PULSE 86; RESP 16; TEMP 36.3; O2SAT 97
[2023-03-16] MEDS: chlorproMAZINE HCl 100 MG TABLET 200 MG PO (20:27)
[2023-03-16] MEDS: carBAMazepine ER 200 MG TAB.ER.12H 600 MG PO (20:27)
[2023-03-16] MEDS: Lithium Carbonate ER 450 MG TABLET.ER 900 MG PO (20:28)
[2023-03-17 08:00] VITALS: BP 111/62; PULSE 75; TEMP 36.6; O2SAT 100
[2023-03-17] MEDS: Benztropine Mesylate 1 MG TABLET PO ×2 (09:07→20:13)
[2023-03-17] MEDS: carBAMazepine 200 MG TABLET 400 MG PO (09:07)
[2023-03-17] MEDS: fluPHENAZine HCl 2.5 MG TABLET 7.5 MG PO (09:07)
[2023-03-17] MEDS: Lithium Carbonate ER 300 MG TABLET.ER PO (09:07)
[2023-03-17] MEDS: Lithium Carbonate ER 450 MG TABLET.ER PO (09:07)
[2023-03-17] MEDS: chlorproMAZINE HCl 100 MG TABLET PO ×2 (09:08→13:38)
[2023-03-17] MEDS: fluPHENAZine decanoate 25 MG/ML 5 ML VIAL IM (09:34)
--- NOTE | 2023-03-17 14:15 | P.PNPSI_ITS ---
Subjective Subjective Date of Service: 03/17/23 Reason For Visit: Psychosis Interim History: received prolixin 25 mg today. denies any problems, no questions or concerns. informed PO prolixin dosing will be cut by about 50%. per staff, no notable events or behaviors. Mental Status Exam Mental Status Exam Narrative: Pt is alert and oriented; behavior is guarded and calm; dressed in casual attire; mood is described as good ; eye contact appropriate; Speech is normal rate, volume and prosody and not pressured; thought process is linear and logical, some HAMLET; otherwise pertinent to relevant topics and without any delusional content, paranoid ideations or grandiosity; no SI/HI/AVH expressed. Diagnostics Vital Signs (24Hr): Vital Signs - 24 hr 03/16/23 20:20 03/17/23 08:00 Temperature 97.3 F 98 F Pulse Rate 86 75 Respiratory Rate 16 Blood Pressure 100/55 L 111/62 Pulse Oximetry 97 100 Oxygen Delivery Method Room Air Room Air BMI result Body Mass Index 29.1 Labs 03/03/23 20:10 03/03/23 20:10 Medications Medications Current Medications Acetaminophen (Acetaminophen 325 Mg Tablet) 650 mg PO Q6H PRN PRN Reason: Headache/Pain Mild Scale (1-3) Last Admin: 03/13/23 10:24 Dose: 650 mg Al Hydroxide/Mg Hydroxide (Magnesium Hydrox/Alum Hydrox 30 Ml Oral.Susp) 30 ml PO Q6H PRN PRN Reason: Heartburn/Nausea Last Admin: 01/29/23 22:57 Dose: 30 ml Benztropine Mesylate (Benztropine Mesylate 1 Mg Tablet) 1 mg PO BID [facility] Last Admin: 03/17/23 09:07 Dose: 1 mg Carbamazepine (Carbamazepine 200 Mg Tablet) 400 mg PO DAILY [facility] Last Admin: 03/17/23 09:07 Dose: 400 mg Carbamazepine (Carbamazepine Er 200 Mg Tab.Er.12h) 600 mg PO BEDTIME [facility] Last Admin: 03/16/23 20:27 Dose: 600 mg Chlorpromazine HCl (Chlorpromazine Hcl 100 Mg Tablet) 200 mg PO BEDTIME [facility] Last Admin: 03/16/23 20:27 Dose: 200 mg Chlorpromazine HCl (Chlorpromazine Hcl 100 Mg Tablet) 100 mg PO BID@0900,1300 [facility] Last Admin: 03/17/23 13:38 Dose: 100 mg Chlorpromazine HCl (Chlorpromazine Hcl 100 Mg Tablet) 100 mg PO DAILY PRN PRN Reason: agitation/anxiety Fluphenazine Decanoate (Fluphenazine Decanoate 25 Mg/Ml 5 Ml Vial) 25 mg IM Q14D@0900 [facility] Last Admin: 03/17/23 09:34 Dose: 25 mg Fluphenazine HCl (Fluphenazine Hcl 2.5 Mg/Ml 10 Ml Vial) 5 mg IM TID PRN PRN Reason: refusal of PO fluphenazine Fluphenazine HCl (Fluphenazine Hcl 5 Mg Tablet) 5 mg PO BID [facility] [place] Carbonate ([place] Carbonate Er 450 Mg Tablet.Er) 900 mg PO BEDTIME [facility] Last Admin: 03/16/23 20:28 Dose: 900 mg [place] Carbonate ([place] Carbonate Er 300 Mg Tablet.Er) 300 mg PO DAILY [facility] Last Admin: 03/17/23 09:07 Dose: 300 mg [place] Carbonate ([place] Carbonate Er 450 Mg Tablet.Er) 450 mg PO DAILY [facility] Last Admin: 03/17/23 09:07 Dose: 450 mg Magnesium Hydroxide (Milk Of Magnesia 30 Ml Oral.Susp) 30 ml PO DAILY PRN PRN Reason: Constipation Last Admin: 03/14/23 20:03 Dose: 30 ml Multi-Ingred Cream/Lotion/Oil/Oint (Mineral Oil/Petrolatum,White 106 Gm Tube) 1 appl TOPICAL BID [facility]; Protocol Last Admin: 03/17/23 09:10 Dose: Not Given Nicotine (Nicotine 21 Mg Patch.Td24) 21 mg TRANSDERMA DAILY PRN PRN Reason: smoking cessation Last Admin: 01/15/23 16:06 Dose: 21 mg Nicotine Polacrilex (Nicotine Polacrilex 2 Mg Gum) 4 mg BUCCAL Q2H PRN PRN Reason: nicotine cravings Last Admin: 02/09/23 11:45 Dose: 4 mg Allergies Allergies Allergy/AdvReac Type Severity Reaction Status Date / Time morphine [MORPHINE] AdvReac Unknown NAUSEA Verified 12/10/22 19:56 Assessment & Plan Assessment & Plan (1) Nonspecific ST-T wave electrocardiographic changes: Status: Acute Code(s): R94.31 - Abnormal electrocardiogram [ECG] [EKG] (2) Cocaine use disorder: Status: Acute Code(s): F14.10 - Cocaine abuse, uncomplicated (3) Schizoaffective disorder, bipolar type: Status: Acute Code(s): F25.0 - Schizoaffective disorder, bipolar type (4) Opioid use disorder: Status: Acute Code(s): F11.90 - Opioid use, unspecified, uncomplicated Plan 12/24: attempt to give anti-psychotics. comfort meds for opioid and cocaine withdrawal. 12/25: refusing medications. period of agitation last night slamming doors and yelling (presumably @AH). continue current mgmt. 12/26: refusing meds. binging and purging. floridly psychotic. 12/27: had meds last night for sleep, per his request. schedule all haldol tonight with ativan and cogentin. a bit more interactive today, remains delayed and distracted. no binging/purging behaviors or agitated behaviors described by RN report today. 12/28: refused meds last night. Today asks for meds for sx mgt- aggressive today- threw two coffee cups. Begin Depakote 250 mg bid. 12/29: got multiple meds last NOC and overnight per his request. slept 2 hours. refusing meds this morning. commitment paperwork completed. 3-day notice expires tomorrow. c/o opioid craving, asked for methadone. methadone 30 mg daily started today. 12/30: filed for commitment today. haldol and ativan per his request last night. appears in disbelief that he will not be discharged today. 12/31: demanding to leave, getting agitated, banging on nursing station, slamming doors in his room. given IMs x 2, haldol 10 ativan 2 benadryl 50 for first and thorazine 100 for second. 01/01: Remains unpredictable and irritable. Refusing scheduled medications. Section 7/ filed. 01/02: Continue current management. 01/03: refusing meds. irritable, labile. periods of agitation. continue current mgmt, awaiting hearing for . 01/04: refusing meds. irritable, labile. periods of agitation. continue current mgmt, though pt is refusing meds. 01/05: thought-blocked. denies mental illness or need for medications. offer medications. hearing tomorrow. 01/06: committed and ordered medications at hearing. 06/12/20 [facility] DC summary reviewd, pt was discharged on VPA, zyprexa, haldol. 03/14/20 DC summary reviewed, pt discharged on zyprexa, haldol. pt unable to comprehend result, agitated not to be leaving today. 01/07: copy of court order on unit, will order meds accordingly today. no change in presentation. 01/08: Continue current regimen and plans 01/09: Continue current plans and regimen. Discontinue contingent IM Ativan if Depakote refused 01/10: Continue current regimen and plans. 01/11: DC VPA, start tegretol per pt preference. ativan 2 mg IM for refusal of tegretol. continue haldol PO/IM orders. improved from last week. less agitated, a bit more organized and engaging. 01/12: appears more disorganized again today, trouble engaging. refused PO meds last night but did take tegretol PO this morning. 01/13: continues disorganized, difficulty expressing himself. refusing PO meds since yesterday morning. slept 10 hours last night, however 01/14: intermittently taking meds PO versus IM. improved behavior from prior to med order, but remains floridly psychotic. continue current mgmt. 01/16/2023: No changes to current plan 01/17: more compliant with tegretol in recent days, still getting haldol IM. no change in presentation. continue current mgmt. 01/18: remains psychotic, labile. increase tegretol to 300 mg BID. 01/19: continues more aggressive and labile today. increase haldol to 10 BID with back-up IM of 7.5 mg. 01/20: more calm today,periods of agitation, however, in the past 24H. continue current mgmt. declines to change scheduled haldol to thorazine (proposed by MD in the hope he would in order to spare him the IMs). 01/21 continue tx. 01/22 writing for thorazine at bed- mr x1 and check ekg given other antipsychotics on board 01/23 agreed to ekg today, added 1pm dose of 5mg haldol 01/24: taking meds PO, still suffering from AH, possibly VH. perhaps trending more calm, but clearly still periods of agitation in the past several days. 01/25: labile, paranoid delusions. informed staff he experiences AH, mumbles recently. increase tegretol to 400 BID, make IR formulation as he has been chewing the pills. 01/26: more calm today. continue current mgmt. 01/27: continues more calm. some staff concerned for akathisia due to pacing and number of PRNs taken, but appears to be doing less walking than he had been before, does not appear restless or uncomfortable. continue current mgmt, check tegretol level 2 weeks after dose change (02/08). 01/28: stable presentation. intermittent sleep disturbance. continue current mgmt. 01/29: Continue current management. Benadryl for allergies 01/30: Continue current plan of care. 01/31: continues to ask for lots of PRNs. no change in presentation. 01/28 mild anemia and hyponatremia; trend. tegretol level 10.3. 02/01: series of abnormal and dynamic EKGs; today's WNL. cardiology consult requested for opinion. will start lithium pending cards opinion re EKG series. no change in presentation. 02/02: appreciate cardiology consultation and opinion. echocardiogram ordered. lithium started. appears better able to tolerate longer interaction today. 02/03: improved ability to tolerate social engagements continues. feels lithium has been helpful. akathisia likely. decrease haldol 02/10/10 to 5 BID and add thorazine 25 BID at 0900 and 1300. 02/04: clear uptick in psychotic.manic behavior yesterday after haldol dose decrease. eloped today. increase thorazine to 100/100/200 with PRNS available. 02/05: no concerning behaviors since elopement yesterday. refused PO haldol last night, otherwise med compliant. 02/06: med-compliant, no concerning behaviors. continue current mgmt. 02/07: check BMP along with lithium level. stable presentation. 02/08: CBC/BMP not concerning. lithium 0.6, tegretol 9.0. increase lithium dosing from 600 BID to 600/900 as of tonight. DC haldol entirely out of concerns for akathisia. invega not a great option due to tegretol interaction. start prolixin PO with IM back-up as alternative neuroleptic to haldol. 02/09: Continue current tx plan. 02/10: increase prolixin from 5 BID to 5 TID. otherwise continue current mgmt. 02/11: continue current mgmt. check labs jeferson of 02/13. 02/12: Continue current plan. Check labs in AM. 02/13: Continue current treatment plan. Li level 0.68, CMZ level 8.6 02/14: Continue current regimen and plans 02/15: increase lithium to 750/900. T/C increasing tegretol in near future as well. gradually seems to be improving. 02/16: stable. continue current mgmt. has broached feeling depressed the past couple of days. 02/17: Continue current tx plan. 02/18: check labs in several days. stable, Sx much improved from prior but still clearly psychotic. 02/20: no changes 02/21: continue current mgmt. check labs soon. still psychotic, endorsing AH. 02/22: no change in presentation. check lithium and tegretol levels tomorrow. 02/23: tegretol 8.3, lithium 0.96. increase tegretol from 400 BID to 400/600 as of tonight. c/o restlessness, concern for akathisia. will review neuroleptics regimen if Sx do not improve in next several days (as might be the case if his restlessness is residual dante). also, AH continue. 02/24: stable. continue current mgmt. assess Sx over next week, then check tegretol level. 02/25: better related, discussed his post-discharge plans. family meeting late next week. continue current regimen, check labs around 03/02. 02/26: Continue plan of care discharge planning 02/27: Patient can not continues much improved states he feels much better without drug use no psychosis. 02/28: +RIS, bizarrely ends interview with MD by just getting up and walking away without a look or a word. increase prolixin 5 TID to 7.5 TID for psychosis. otherwise continue current mgmt. 03/01: continue current mgmt. tired today, stayed in bed. 03/02: tired again, rouses himself to sit up for interview. latency of response, asks MD to repeat question once, but denies AH. continue current mgmt. 03/03: more up and about today. unconvincingly denies AH. continue current mgmt. check labs tonight. 03/04: labs reviewed with pt, that they are reassuring and medication levels are good. tegretol 9.6, lithium 0.76. continue current mgmt. 03/05: Continue current regimen and plans. 03/06: Continue current plans and regimen 03/07: continue current mgmt. mt btwn SW and pt's family held today. 03/08: Continue current tx plan. 03/09: Patient presents guarded during 1:1. He reports feeling okay today; states he is sleeping well. Isolative. Pt reports he doesn't go to groups because I don't learn anything . Denies SI/HI/VH/AH. Continue current tx plan. 03/10: Patient presents guarded and brief today. He reports feeling good . Pt stated, I don't need anything Denies SI/HI/VH/AH. 03/11: periods of cogency and periods of apparent thought disorganization. denying Sx but appears to still be RIS and distracted. continue current mgmt for now. 03/12 continue same treatment. 03/13 continue same treatment. 03/14: continue current mgmt. plan to streamline medications regimen prior to discharge. T/C prolixin MENDES. 03/15: Continue current treatment plan. 03/16: streamlining meds today. decrease thorazine PRN availability. start prolixin decanoate tomorrow morning, will decrease PO prolixin by about half once the injection is given. continue other medications for now. 03/17: received prolixin DEC 25 mg today. decrease PO prolixin from 7.5 TID to 5 BID, otherwise continue current mgmt. Reason for continued inpatient stay Substantial Risk for: harm to self, inability to function and rapid decompensation Time Spent With Patient Time: Total time managing care of this patient today __25__ minutes.
[2023-03-17 20:02] VITALS: BP 133/75; PULSE 80; TEMP 36.5; O2SAT 97
[2023-03-17] MEDS: chlorproMAZINE HCl 100 MG TABLET 200 MG PO (20:13)
[2023-03-17] MEDS: carBAMazepine ER 200 MG TAB.ER.12H 600 MG PO (20:13)
[2023-03-17] MEDS: fluPHENAZine HCl 5 MG TABLET PO (20:14)
[2023-03-17] MEDS: diphenhydrAMINE HCL 25 MG CAPSULE 50 MG PO (20:14)
[2023-03-17] MEDS: Lithium Carbonate ER 450 MG TABLET.ER 900 MG PO (20:14)
[2023-03-18 06:00] VITALS: BP 114/53; PULSE 73; RESP 16; TEMP 36.9; O2SAT 97
[2023-03-18] MEDS: carBAMazepine 200 MG TABLET 400 MG PO (08:59)
[2023-03-18] MEDS: fluPHENAZine HCl 5 MG TABLET PO ×2 (08:59→21:44)
[2023-03-18] MEDS: Lithium Carbonate ER 450 MG TABLET.ER PO (08:59)
[2023-03-18] MEDS: Lithium Carbonate ER 300 MG TABLET.ER PO (09:00)
[2023-03-18] MEDS: Benztropine Mesylate 1 MG TABLET PO ×2 (09:00→21:45)
[2023-03-18] MEDS: chlorproMAZINE HCl 100 MG TABLET PO ×2 (09:00→13:26)
--- NOTE | 2023-03-18 09:58 | HO.PSYCHPN ---
Subjective Subjective Date of Service: 03/18/23 Reason For Visit: Psychosis Subjective Notes: Section 8 Interim History: Patient presents guarded during 1:1. He reports feeling okay ; states he is sleeping well. Isolative. Pt stated, I don't need anything. I'm just thinking about if I should shave my ybarra or not. Denies SI/HI/VH/AH. Medication Compliance: Yes Side effects from medications: No Attending Groups: No Review of Systems Constitutional: Reports as per HPI Eyes: Reports as per HPI Reports as per HPI Cardiovascular: Reports as per HPI Respiratory: Reports as per HPI Gastrointestinal: Reports as per HPI Genitourinary: Reports as per HPI Musculoskeletal: Reports as per HPI Skin/Breast: Reports as per HPI Reports as per HPI Psychiatric: Reports as per HPI Endocrine: Reports as per HPI Hematologic/Lymphatic: Reports as per HPI Allergic/Immunologic: Reports as per HPI Mental Status Exam Mental Status Exam Narrative: Pt is alert and oriented; behavior is guarded and calm; dressed in casual attire; mood is described as good ; eye contact appropriate; Speech is normal rate, volume and prosody and not pressured; thought process is organized; otherwise pertinent to relevant topics and without any delusional content, paranoid ideations or grandiosity; denies SI/HI. There is no evidence of perceptual disturbance. Diagnostics Vital Signs (24Hr): Vital Signs - 24 hr 03/17/23 20:02 Temperature 97.7 F Pulse Rate 80 Blood Pressure 133/75 Pulse Oximetry 97 Oxygen Delivery Method Room Air BMI result Body Mass Index 29.1 Labs 03/03/23 20:10 03/03/23 20:10 Medications Medications Current Medications Acetaminophen (Acetaminophen 325 Mg Tablet) 650 mg PO Q6H PRN PRN Reason: Headache/Pain Mild Scale (1-3) Last Admin: 03/13/23 10:24 Dose: 650 mg Al Hydroxide/Mg Hydroxide (Magnesium Hydrox/Alum Hydrox 30 Ml Oral.Susp) 30 ml PO Q6H PRN PRN Reason: Heartburn/Nausea Last Admin: 01/29/23 22:57 Dose: 30 ml Benztropine Mesylate (Benztropine Mesylate 1 Mg Tablet) 1 mg PO BID [facility] Last Admin: 03/18/23 09:00 Dose: 1 mg Carbamazepine (Carbamazepine 200 Mg Tablet) 400 mg PO DAILY [facility] Last Admin: 03/18/23 08:59 Dose: 400 mg Carbamazepine (Carbamazepine Er 200 Mg Tab.Er.12h) 600 mg PO BEDTIME [facility] Last Admin: 03/17/23 20:13 Dose: 600 mg Chlorpromazine HCl (Chlorpromazine Hcl 100 Mg Tablet) 200 mg PO BEDTIME [facility] Last Admin: 03/17/23 20:13 Dose: 200 mg Chlorpromazine HCl (Chlorpromazine Hcl 100 Mg Tablet) 100 mg PO BID@0900,1300 [facility] Last Admin: 03/18/23 09:00 Dose: 100 mg Chlorpromazine HCl (Chlorpromazine Hcl 100 Mg Tablet) 100 mg PO DAILY PRN PRN Reason: agitation/anxiety Diphenhydramine HCl (Diphenhydramine Hcl 25 Mg Capsule) 50 mg PO Q6H PRN PRN Reason: Allergic Symptoms Last Admin: 03/17/23 20:14 Dose: 50 mg Fluphenazine Decanoate (Fluphenazine Decanoate 25 Mg/Ml 5 Ml Vial) 25 mg IM Q14D@0900 [facility] Last Admin: 03/17/23 09:34 Dose: 25 mg Fluphenazine HCl (Fluphenazine Hcl 2.5 Mg/Ml 10 Ml Vial) 5 mg IM TID PRN PRN Reason: refusal of PO fluphenazine Fluphenazine HCl (Fluphenazine Hcl 5 Mg Tablet) 5 mg PO BID [facility] Last Admin: 03/18/23 08:59 Dose: 5 mg [place] Carbonate ([place] Carbonate Er 450 Mg Tablet.Er) 900 mg PO BEDTIME [facility] Last Admin: 03/17/23 20:14 Dose: 900 mg [place] Carbonate ([place] Carbonate Er 300 Mg Tablet.Er) 300 mg PO DAILY [facility] Last Admin: 03/18/23 09:00 Dose: 300 mg [place] Carbonate ([place] Carbonate Er 450 Mg Tablet.Er) 450 mg PO DAILY [facility] Last Admin: 03/18/23 08:59 Dose: 450 mg Magnesium Hydroxide (Milk Of Magnesia 30 Ml Oral.Susp) 30 ml PO DAILY PRN PRN Reason: Constipation Last Admin: 03/14/23 20:03 Dose: 30 ml Multi-Ingred Cream/Lotion/Oil/Oint (Mineral Oil/Petrolatum,White 106 Gm Tube) 1 appl TOPICAL BID [facility]; Protocol Last Admin: 03/18/23 09:01 Dose: Not Given Nicotine (Nicotine 21 Mg Patch.Td24) 21 mg TRANSDERMA DAILY PRN PRN Reason: smoking cessation Last Admin: 01/15/23 16:06 Dose: 21 mg Nicotine Polacrilex (Nicotine Polacrilex 2 Mg Gum) 4 mg BUCCAL Q2H PRN PRN Reason: nicotine cravings Last Admin: 02/09/23 11:45 Dose: 4 mg Allergies Allergies Allergy/AdvReac Type Severity Reaction Status Date / Time morphine [MORPHINE] AdvReac Unknown NAUSEA Verified 12/10/22 19:56 Assessment & Plan Assessment & Plan (1) Nonspecific ST-T wave electrocardiographic changes: Status: Acute Code(s): R94.31 - Abnormal electrocardiogram [ECG] [EKG] (2) Cocaine use disorder: Status: Acute Code(s): F14.10 - Cocaine abuse, uncomplicated (3) Schizoaffective disorder, bipolar type: Status: Acute Code(s): F25.0 - Schizoaffective disorder, bipolar type (4) Opioid use disorder: Status: Acute Code(s): F11.90 - Opioid use, unspecified, uncomplicated Plan 12/24: attempt to give anti-psychotics. comfort meds for opioid and cocaine withdrawal. 12/25: refusing medications. period of agitation last night slamming doors and yelling (presumably @). continue current mgmt. 12/26: refusing meds. binging and purging. floridly psychotic. 12/27: had meds last night for sleep, per his request. schedule all haldol tonight with ativan and cogentin. a bit more interactive today, remains delayed and distracted. no binging/purging behaviors or agitated behaviors described by RN report today. 12/28: refused meds last night. Today asks for meds for sx mgt- aggressive today-threw two coffee cups. Begin Depakote 250 mg bid. 12/29: got multiple meds last NOC and overnight per his request. slept 2 hours. refusing meds this morning. commitment paperwork completed. 3-day notice expires tomorrow. c/o opioid craving, asked for methadone. methadone 30 mg daily started today. 12/30: filed for commitment today. haldol and ativan per his request last night. appears in disbelief that he will not be discharged today. 12/31: demanding to leave, getting agitated, banging on nursing station, slamming doors in his room. given IMs x 2, haldol 10 ativan 2 benadryl 50 for first and thorazine 100 for second. 01/01: Remains unpredictable and irritable. Refusing scheduled medications. Section 7/8 filed. 01/02: Continue current management. 01/03: refusing meds. irritable, labile. periods of agitation. continue current mgmt, awaiting hearing for . 01/04: refusing meds. irritable, labile. periods of agitation. continue current mgmt, though pt is refusing meds. 01/05: thought-blocked. denies mental illness or need for medications. offer medications. hearing tomorrow. 01/06: committed and ordered medications at hearing. 06/12/20 [facility] DC summary reviewd, pt was discharged on VPA, zyprexa, haldol. 03/14/20 DC summary reviewed, pt discharged on zyprexa, haldol. pt unable to comprehend result, agitated not to be leaving today. 01/07: copy of court order on unit, will order meds accordingly today. no change in presentation. 01/08: Continue current regimen and plans 01/09: Continue current plans and regimen. Discontinue contingent IM Ativan if Depakote refused 01/10: Continue current regimen and plans. 01/11: DC VPA, start tegretol per pt preference. ativan 2 mg IM for refusal of tegretol. continue haldol PO/IM orders. improved from last week. less agitated, a bit more organized and engaging. 01/12: appears more disorganized again today, trouble engaging. refused PO meds last night but did take tegretol PO this morning. 01/13: continues disorganized, difficulty expressing himself. refusing PO meds since yesterday morning. slept 10 hours last night, however 01/14: intermittently taking meds PO versus IM. improved behavior from prior to med order, but remains floridly psychotic. continue current mgmt. 01/16/2023: No changes to current plan 01/17: more compliant with tegretol in recent days, still getting haldol IM. no change in presentation. continue current mgmt. 01/18: remains psychotic, labile. increase tegretol to 300 mg BID. 01/19: continues more aggressive and labile today. increase haldol to 10 BID with back-up IM of 7.5 mg. 01/20: more calm today,periods of agitation, however, in the past 24H. continue current mgmt. declines to change scheduled haldol to thorazine (proposed by MD in the hope he would in order to spare him the IMs). 01/21 continue tx. 01/22 writing for thorazine at bed- mr x1 and check ekg given other antipsychotics on board 01/23 agreed to ekg today, added 1pm dose of 5mg haldol 01/24: taking meds PO, still suffering from AH, possibly VH. perhaps trending more calm, but clearly still periods of agitation in the past several days. 01/25: labile, paranoid delusions. informed staff he experiences AH, mumbles recently. increase tegretol to 400 BID, make IR formulation as he has been chewing the pills. 01/26: more calm today. continue current mgmt. 01/27: continues more calm. some staff concerned for akathisia due to pacing and number of PRNs taken, but appears to be doing less walking than he had been before, does not appear restless or uncomfortable. continue current mgmt, check tegretol level 2 weeks after dose change (02/08). 01/28: stable presentation. intermittent sleep disturbance. continue current mgmt. 01/29: Continue current management. Benadryl for allergies 01/30: Continue current plan of care. 01/31: continues to ask for lots of PRNs. no change in presentation. 01/28 mild anemia and hyponatremia; trend. tegretol level 10.3. 02/01: series of abnormal and dynamic EKGs; today's WNL. cardiology consult requested for opinion. will start lithium pending cards opinion re EKG series. no change in presentation. 02/02: appreciate cardiology consultation and opinion. echocardiogram ordered. lithium started. appears better able to tolerate longer interaction today. 02/03: improved ability to tolerate social engagements continues. feels lithium has been helpful. akathisia likely. decrease haldol 02/10/10 to 5 BID and add thorazine 25 BID at 0900 and 1300. 02/04: clear uptick in psychotic.manic behavior yesterday after haldol dose decrease. eloped today. increase thorazine to 100/100/200 with PRNS available. 02/05: no concerning behaviors since elopement yesterday. refused PO haldol last night, otherwise med compliant. 02/06: med-compliant, no concerning behaviors. continue current mgmt. 02/07: check BMP along with lithium level. stable presentation. 02/08: CBC/BMP not concerning. lithium 0.6, tegretol 9.0. increase lithium dosing from 600 BID to 600/900 as of tonight. DC haldol entirely out of concerns for akathisia. invega not a great option due to tegretol interaction. start prolixin PO with IM back-up as alternative neuroleptic to haldol. 02/09: Continue current tx plan. 02/10: increase prolixin from 5 BID to 5 TID. otherwise continue current mgmt. 02/11: continue current mgmt. check labs jeferson of 02/13. 02/12: Continue current plan. Check labs in AM. 02/13: Continue current treatment plan. Li level 0.68, CMZ level 8.6 02/14: Continue current regimen and plans 02/15: increase lithium to 750/900. T/C increasing tegretol in near future as well. gradually seems to be improving. 02/16: stable. continue current mgmt. has broached feeling depressed the past couple of days. 02/17: Continue current tx plan. 02/18: check labs in several days. stable, Sx much improved from prior but still clearly psychotic. 02/20: no changes 02/21: continue current mgmt. check labs soon. still psychotic, endorsing . 02/22: no change in presentation. check lithium and tegretol levels tomorrow. 02/23: tegretol 8.3, lithium 0.96. increase tegretol from 400 BID to 400/600 as of tonight. c/o restlessness, concern for akathisia. will review neuroleptics regimen if Sx do not improve in next several days (as might be the case if his restlessness is residual dante). also, AH continue. 02/24: stable. continue current mgmt. assess Sx over next week, then check tegretol level. 02/25: better related, discussed his post-discharge plans. family meeting late next week. continue current regimen, check labs around 03/02. 02/26: Continue plan of care discharge planning 02/27: Patient can not continues much improved states he feels much better without drug use no psychosis. 02/28: +RIS, bizarrely ends interview with MD by just getting up and walking away without a look or a word. increase prolixin 5 TID to 7.5 TID for psychosis. otherwise continue current mgmt. 03/01: continue current mgmt. tired today, stayed in bed. 03/02: tired again, rouses himself to sit up for interview. latency of response, asks MD to repeat question once, but denies AH. continue current mgmt. 03/03: more up and about today. unconvincingly denies AH. continue current mgmt. check labs tonight. 03/04: labs reviewed with pt, that they are reassuring and medication levels are good. tegretol 9.6, lithium 0.76. continue current mgmt. 03/05: Continue current regimen and plans. 03/06: Continue current plans and regimen 03/07: continue current mgmt. mtg btwn SW and pt's family held today. 03/08: Continue current tx plan. 03/09: Patient presents guarded during 1:1. He reports feeling okay today; states he is sleeping well. Isolative. Pt reports he doesn't go to groups because I don't learn anything . Denies SI/HI/VH/AH. Continue current tx plan. 03/10: Patient presents guarded and brief today. He reports feeling good . Pt stated, I don't need anything Denies SI/HI/VH/AH. 03/11: periods of cogency and periods of apparent thought disorganization. denying Sx but appears to still be RIS and distracted. continue current mgmt for now. 03/12 continue same treatment. 03/13 continue same treatment. 03/14: continue current mgmt. plan to streamline medications regimen prior to discharge. T/C prolixin MENDES. 03/15: Continue current treatment plan. 03/16: streamlining meds today. decrease thorazine PRN availability. start prolixin decanoate tomorrow morning, will decrease PO prolixin by about half once the injection is given. continue other medications for now. 03/17: received prolixin DEC 25 mg today. decrease PO prolixin from 7.5 TID to 5 BID, otherwise continue current mgmt. 03/18: Continue current treatment plan. Patient educated on: diagnosis and medication risk/benefits Informed Consent: understands Reason for continued inpatient stay Substantial Risk for: med/psych decompensation Time Spent With Patient Time: Total time managing care of this patient today _30___ minutes.
[2023-03-18 19:55] VITALS: BP 132/81; PULSE 71; RESP 18; TEMP 36.8; O2SAT 99
[2023-03-18] MEDS: Lithium Carbonate ER 450 MG TABLET.ER 900 MG PO (21:44)
[2023-03-18] MEDS: chlorproMAZINE HCl 100 MG TABLET 200 MG PO (21:44)
[2023-03-18] MEDS: carBAMazepine ER 200 MG TAB.ER.12H 600 MG PO (21:45)
[2023-03-19 06:00] VITALS: BP 135/70; PULSE 64; RESP 20; TEMP 36.8; O2SAT 98
[2023-03-19] MEDS: Lithium Carbonate ER 300 MG TABLET.ER PO (09:46)
[2023-03-19] MEDS: Lithium Carbonate ER 450 MG TABLET.ER PO (09:46)
[2023-03-19] MEDS: fluPHENAZine HCl 5 MG TABLET PO ×2 (09:47→20:21)
[2023-03-19] MEDS: carBAMazepine 200 MG TABLET 400 MG PO (09:47)
[2023-03-19] MEDS: chlorproMAZINE HCl 100 MG TABLET PO ×2 (09:47→12:24)
[2023-03-19] MEDS: Benztropine Mesylate 1 MG TABLET PO ×2 (09:47→20:21)
[2023-03-19] MEDS: diphenhydrAMINE HCL 25 MG CAPSULE 50 MG PO ×2 (12:23→20:32)
--- NOTE | 2023-03-19 19:29 | HO.PSYCHPN ---
Subjective Subjective Date of Service: 03/19/23 Reason For Visit: Psychosis Interim History: no change in presentation. per staff, no change in presentation. he was noted to hit himself on the thigh fairly hard x 2, apparently in frustration, but at what is not known. taking meds. occasionally mumbling to himself. minimal outburst @ last night. Mental Status Exam Mental Status Exam Narrative: Pt is alert and oriented; behavior is guarded and calm; dressed in casual attire; mood is described as good ; eye contact appropriate; Speech is normal rate, volume and prosody and not pressured; thought process is linear and logical, some HAMLET; otherwise pertinent to relevant topics and without any delusional content, paranoid ideations or grandiosity; no SI/HI/AVH expressed. Diagnostics Vital Signs (24Hr): Vital Signs - 24 hr 03/18/23 19:55 03/19/23 06:00 Temperature 98.2 F 98.3 F Pulse Rate 71 64 Respiratory Rate 18 20 Blood Pressure 132/81 135/70 Pulse Oximetry 99 98 Oxygen Delivery Method Room Air Room Air BMI result Body Mass Index 29.1 Labs 03/03/23 20:10 03/03/23 20:10 Medications Medications Current Medications Acetaminophen (Acetaminophen 325 Mg Tablet) 650 mg PO Q6H PRN PRN Reason: Headache/Pain Mild Scale (1-3) Last Admin: 03/13/23 10:24 Dose: 650 mg Al Hydroxide/Mg Hydroxide (Magnesium Hydrox/Alum Hydrox 30 Ml Oral.Susp) 30 ml PO Q6H PRN PRN Reason: Heartburn/Nausea Last Admin: 01/29/23 22:57 Dose: 30 ml Benztropine Mesylate (Benztropine Mesylate 1 Mg Tablet) 1 mg PO BID [facility] Last Admin: 03/19/23 09:47 Dose: 1 mg Carbamazepine (Carbamazepine 200 Mg Tablet) 400 mg PO DAILY [facility] Last Admin: 03/19/23 09:47 Dose: 400 mg Carbamazepine (Carbamazepine Er 200 Mg Tab.Er.12h) 600 mg PO BEDTIME [facility] Last Admin: 03/18/23 21:45 Dose: 600 mg Chlorpromazine HCl (Chlorpromazine Hcl 100 Mg Tablet) 200 mg PO BEDTIME [facility] Last Admin: 03/18/23 21:44 Dose: 200 mg Chlorpromazine HCl (Chlorpromazine Hcl 100 Mg Tablet) 100 mg PO BID@0900,1300 [facility] Last Admin: 03/19/23 12:24 Dose: 100 mg Chlorpromazine HCl (Chlorpromazine Hcl 100 Mg Tablet) 100 mg PO DAILY PRN PRN Reason: agitation/anxiety Diphenhydramine HCl (Diphenhydramine Hcl 25 Mg Capsule) 50 mg PO Q6H PRN PRN Reason: Allergic Symptoms Last Admin: 03/19/23 12:23 Dose: 50 mg Fluphenazine Decanoate (Fluphenazine Decanoate 25 Mg/Ml 5 Ml Vial) 25 mg IM Q14D@0900 [facility] Last Admin: 03/17/23 09:34 Dose: 25 mg Fluphenazine HCl (Fluphenazine Hcl 2.5 Mg/Ml 10 Ml Vial) 5 mg IM TID PRN PRN Reason: refusal of PO fluphenazine Fluphenazine HCl (Fluphenazine Hcl 5 Mg Tablet) 5 mg PO BID [facility] Last Admin: 03/19/23 09:47 Dose: 5 mg Louann Carbonate (Louann Carbonate Er 450 Mg Tablet.Er) 900 mg PO BEDTIME [facility] Last Admin: 03/18/23 21:44 Dose: 900 mg Louann Carbonate (Louann Carbonate Er 300 Mg Tablet.Er) 300 mg PO DAILY [facility] Last Admin: 03/19/23 09:46 Dose: 300 mg Louann Carbonate (Louann Carbonate Er 450 Mg Tablet.Er) 450 mg PO DAILY [facility] Last Admin: 03/19/23 09:46 Dose: 450 mg Magnesium Hydroxide (Milk Of Magnesia 30 Ml Oral.Susp) 30 ml PO DAILY PRN PRN Reason: Constipation Last Admin: 03/14/23 20:03 Dose: 30 ml Multi-Ingred Cream/Lotion/Oil/Oint (Mineral Oil/Petrolatum,White 106 Gm Tube) 1 appl TOPICAL BID [facility]; Protocol Last Admin: 03/19/23 09:50 Dose: Not Given Nicotine (Nicotine 21 Mg Patch.Td24) 21 mg TRANSDERMA DAILY PRN PRN Reason: smoking cessation Last Admin: 01/15/23 16:06 Dose: 21 mg Nicotine Polacrilex (Nicotine Polacrilex 2 Mg Gum) 4 mg BUCCAL Q2H PRN PRN Reason: nicotine cravings Last Admin: 02/09/23 11:45 Dose: 4 mg Allergies Allergies Allergy/AdvReac Type Severity Reaction Status Date / Time morphine [MORPHINE] AdvReac Unknown NAUSEA Verified 12/10/22 19:56 Assessment & Plan Assessment & Plan (1) Nonspecific ST-T wave electrocardiographic changes: Status: Acute Code(s): R94.31 - Abnormal electrocardiogram [ECG] [EKG] (2) Cocaine use disorder: Status: Acute Code(s): F14.10 - Cocaine abuse, uncomplicated (3) Schizoaffective disorder, bipolar type: Status: Acute Code(s): F25.0 - Schizoaffective disorder, bipolar type (4) Opioid use disorder: Status: Acute Code(s): F11.90 - Opioid use, unspecified, uncomplicated Plan 12/24: attempt to give anti-psychotics. comfort meds for opioid and cocaine withdrawal. 12/25: refusing medications. period of agitation last night slamming doors and yelling (presumably @). continue current mgmt. 12/26: refusing meds. binging and purging. floridly psychotic. 12/27: had meds last night for sleep, per his request. schedule all haldol tonight with ativan and cogentin. a bit more interactive today, remains delayed and distracted. no binging/purging behaviors or agitated behaviors described by RN report today. 12/28: refused meds last night. Today asks for meds for sx mgt- aggressive today-threw two coffee cups. Begin Depakote 250 mg bid. 12/29: got multiple meds last NOC and overnight per his request. slept 2 hours. refusing meds this morning. commitment paperwork completed. 3-day notice expires tomorrow. c/o opioid craving, asked for methadone. methadone 30 mg daily started today. 12/30: filed for commitment today. haldol and ativan per his request last night. appears in disbelief that he will not be discharged today. 12/31: demanding to leave, getting agitated, banging on nursing station, slamming doors in his room. given IMs x 2, haldol 10 ativan 2 benadryl 50 for first and thorazine 100 for second. 01/01: Remains unpredictable and irritable. Refusing scheduled medications. Section 7/ filed. 01/02: Continue current management. 01/03: refusing meds. irritable, labile. periods of agitation. continue current mgmt, awaiting hearing for . 01/04: refusing meds. irritable, labile. periods of agitation. continue current mgmt, though pt is refusing meds. 01/05: thought-blocked. denies mental illness or need for medications. offer medications. hearing tomorrow. 01/06: committed and ordered medications at hearing. 06/12/20 [facility] [place] [facility] [place], pt was discharged on VPA, zyprexa, haldol. 03/14/20 [place] summary reviewed, pt discharged on zyprexa, haldol. pt unable to comprehend result, agitated not to be leaving today. 01/07: copy of court order on unit, will order meds accordingly today. no change in presentation. 01/08: Continue current regimen and plans 01/09: Continue current plans and regimen. Discontinue contingent IM Ativan if Depakote refused 01/10: Continue current regimen and plans. 01/11: DC VPA, start tegretol per pt preference. ativan 2 mg IM for refusal of tegretol. continue haldol PO/IM orders. improved from last week. less agitated, a bit more organized and engaging. 01/12: appears more disorganized again today, trouble engaging. refused PO meds last night but did take tegretol PO this morning. 01/13: continues disorganized, difficulty expressing himself. refusing PO meds since yesterday morning. slept 10 hours last night, however 01/14: intermittently taking meds PO versus IM. improved behavior from prior to med order, but remains floridly psychotic. continue current mgmt. 01/16/2023: No changes to current plan 01/17: more compliant with tegretol in recent days, still getting haldol IM. no change in presentation. continue current mgmt. 01/18: remains psychotic, labile. increase tegretol to 300 mg BID. 01/19: continues more aggressive and labile today. increase haldol to 10 BID with back-up IM of 7.5 mg. 01/20: more calm today,periods of agitation, however, in the past 24H. continue current mgmt. declines to change scheduled haldol to thorazine (proposed by in the hope he would in order to spare him the IMs). 01/21 continue tx. 01/22 writing for thorazine at bed- mr x1 and check ekg given other antipsychotics on board 01/23 agreed to ekg today, added 1pm dose of 5mg haldol 01/24: taking meds PO, still suffering from AH, possibly VH. perhaps trending more calm, but clearly still periods of agitation in the past several days. 01/25: labile, paranoid delusions. informed staff he experiences AH, mumbles recently. increase tegretol to 400 BID, make IR formulation as he has been chewing the pills. 01/26: more calm today. continue current mgmt. 01/27: continues more calm. some staff concerned for akathisia due to pacing and number of PRNs taken, but appears to be doing less walking than he had been before, does not appear restless or uncomfortable. continue current mgmt, check tegretol level 2 weeks after dose change (02/08). 01/28: stable presentation. intermittent sleep disturbance. continue current mgmt. 01/29: Continue current management. Benadryl for allergies 01/30: Continue current plan of care. 01/31: continues to ask for lots of PRNs. no change in presentation. 01/28 mild anemia and hyponatremia; trend. tegretol level 10.3. 02/01: series of abnormal and dynamic EKGs; today's WNL. cardiology consult requested for opinion. will start lithium pending cards opinion re EKG series. no change in presentation. 02/02: appreciate cardiology consultation and opinion. echocardiogram ordered. lithium started. appears better able to tolerate longer interaction today. 02/03: improved ability to tolerate social engagements continues. feels lithium has been helpful. akathisia likely. decrease haldol 02/10/10 to 5 BID and add thorazine 25 BID at 0900 and 1300. 02/04: clear uptick in psychotic.manic behavior yesterday after haldol dose decrease. eloped today. increase thorazine to 100/100/200 with PRNS available. 02/05: no concerning behaviors since elopement yesterday. refused PO haldol last night, otherwise med compliant. 02/06: med-compliant, no concerning behaviors. continue current mgmt. 02/07: check BMP along with lithium level. stable presentation. 02/08: CBC/BMP not concerning. lithium 0.6, tegretol 9.0. increase lithium dosing from 600 BID to 600/900 as of tonight. DC haldol entirely out of concerns for akathisia. invega not a great option due to tegretol interaction. start prolixin PO with IM back-up as alternative neuroleptic to haldol. 02/09: Continue current tx plan. 02/10: increase prolixin from 5 BID to 5 TID. otherwise continue current mgmt. 02/11: continue current mgmt. check labs jeferson of 02/13. 02/12: Continue current plan. Check labs in AM. 02/13: Continue current treatment plan. Li level 0.68, CMZ level 8.6 02/14: Continue current regimen and plans 02/15: increase lithium to 750/900. T/C increasing tegretol in near future as well. gradually seems to be improving. 02/16: stable. continue current mgmt. has broached feeling depressed the past couple of days. 02/17: Continue current tx plan. 02/18: check labs in several days. stable, Sx much improved from prior but still clearly psychotic. 02/20: no changes 02/21: continue current mgmt. check labs soon. still psychotic, endorsing AH. 02/22: no change in presentation. check lithium and tegretol levels tomorrow. 02/23: tegretol 8.3, lithium 0.96. increase tegretol from 400 BID to 400/600 as of tonight. c/o restlessness, concern for akathisia. will review neuroleptics regimen if Sx do not improve in next several days (as might be the case if his restlessness is residual dante). also, AH continue. 02/24: stable. continue current mgmt. assess Sx over next week, then check tegretol level. 02/25: better related, discussed his post-discharge plans. family meeting late next week. continue current regimen, check labs around 03/02. 02/26: Continue plan of care discharge planning 02/27: Patient can not continues much improved states he feels much better without drug use no psychosis. 02/28: +RIS, bizarrely ends interview with MD by just getting up and walking away without a look or a word. increase prolixin 5 TID to 7.5 TID for psychosis. otherwise continue current mgmt. 03/01: continue current mgmt. tired today, stayed in bed. 03/02: tired again, rouses himself to sit up for interview. latency of response, asks MD to repeat question once, but denies AH. continue current mgmt. 03/03: more up and about today. unconvincingly denies AH. continue current mgmt. check labs tonight. 03/04: labs reviewed with pt, that they are reassuring and medication levels are good. tegretol 9.6, lithium 0.76. continue current mgmt. 03/05: Continue current regimen and plans. 03/06: Continue current plans and regimen 03/07: continue current mgmt. mtg btwn RADHA and pt's family held today. 03/08: Continue current tx plan. 03/09: Patient presents guarded during 1:1. He reports feeling okay today; states he is sleeping well. Isolative. Pt reports he doesn't go to groups because I don't learn anything . Denies SI/HI/VH/AH. Continue current tx plan. 03/10: Patient presents guarded and brief today. He reports feeling good . Pt stated, I don't need anything Denies SI/HI/VH/AH. 03/11: periods of cogency and periods of apparent thought disorganization. denying Sx but appears to still be RIS and distracted. continue current mgmt for now. 03/12 continue same treatment. 03/13 continue same treatment. 03/14: continue current mgmt. plan to streamline medications regimen prior to discharge. T/C prolixin MENDES. 03/15: Continue current treatment plan. 03/16: streamlining meds today. decrease thorazine PRN availability. start prolixin decanoate tomorrow morning, will decrease PO prolixin by about half once the injection is given. continue other medications for now. 03/17: received prolixin DEC 25 mg today. decrease PO prolixin from 7.5 TID to 5 BID, otherwise continue current mgmt. 03/18: Continue current treatment plan. 03/19: continue current mgmt. noted to have hit himself in the thigh twice apparently in frustration, occasionally mumble to himself, and have a minimal outburst at last evening. likely related to transition from PO prolixin to IM decanoate. Reason for continued inpatient stay Substantial Risk for: harm to self, harm to others, inability to function and rapid decompensation Time Spent With Patient Time: Total time managing care of this patient today ____ minutes.
[2023-03-19] MEDS: carBAMazepine ER 200 MG TAB.ER.12H 600 MG PO (20:21)
[2023-03-19] MEDS: chlorproMAZINE HCl 100 MG TABLET 200 MG PO (20:21)
[2023-03-19] MEDS: Lithium Carbonate ER 450 MG TABLET.ER 900 MG PO (20:21)
[2023-03-19 20:23] VITALS: BP 143/81; PULSE 86; RESP 16; TEMP 36.9; O2SAT 99
[2023-03-20 06:00] VITALS: BP 132/77; PULSE 73; TEMP 36.2; O2SAT 98
[2023-03-20] MEDS: carBAMazepine 200 MG TABLET 400 MG PO (09:12)
[2023-03-20] MEDS: chlorproMAZINE HCl 100 MG TABLET PO ×2 (09:12→14:20)
[2023-03-20] MEDS: Benztropine Mesylate 1 MG TABLET PO ×2 (09:13→21:12)
[2023-03-20] MEDS: Lithium Carbonate ER 450 MG TABLET.ER PO (09:13)
[2023-03-20] MEDS: Lithium Carbonate ER 300 MG TABLET.ER PO (09:13)
[2023-03-20] MEDS: fluPHENAZine HCl 5 MG TABLET PO ×2 (09:13→21:12)
[2023-03-20 19:24] VITALS: BP 132/82; PULSE 83; RESP 14; TEMP 36.9; O2SAT 99
[2023-03-20] MEDS: chlorproMAZINE HCl 100 MG TABLET 200 MG PO (20:24)
--- NOTE | 2023-03-20 20:38 | P.PNPSI_ITS ---
Subjective Subjective Date of Service: 03/20/23 Reason For Visit: Psychosis Interim History: no change in presentation. per staff, same. Mental Status Exam Mental Status Exam Narrative: Pt is alert and oriented; behavior is guarded and calm; dressed in casual attire; mood is described as good ; eye contact appropriate; Speech is normal rate, volume and prosody and not pressured; thought process is linear and logical, some HAMLET; otherwise pertinent to relevant topics and without any delusional content, paranoid ideations or grandiosity; no SI/HI/AVH expressed. Diagnostics Vital Signs (24Hr): Vital Signs - 24 hr 03/20/23 06:00 Temperature 97.1 F Pulse Rate 73 Blood Pressure 132/77 Pulse Oximetry 98 Oxygen Delivery Method Room Air BMI result Body Mass Index 29.1 Labs 03/03/23 20:10 03/03/23 20:10 Medications Medications Current Medications Acetaminophen (Acetaminophen 325 Mg Tablet) 650 mg PO Q6H PRN PRN Reason: Headache/Pain Mild Scale (1-3) Last Admin: 03/13/23 10:24 Dose: 650 mg Al Hydroxide/Mg Hydroxide (Magnesium Hydrox/Alum Hydrox 30 Ml Oral.Susp) 30 ml PO Q6H PRN PRN Reason: Heartburn/Nausea Last Admin: 01/29/23 22:57 Dose: 30 ml Benztropine Mesylate (Benztropine Mesylate 1 Mg Tablet) 1 mg PO BID [facility] Last Admin: 03/20/23 09:13 Dose: 1 mg Carbamazepine (Carbamazepine 200 Mg Tablet) 400 mg PO DAILY [facility] Last Admin: 03/20/23 09:12 Dose: 400 mg Carbamazepine (Carbamazepine Er 200 Mg Tab.Er.12h) 600 mg PO BEDTIME [facility] Last Admin: 03/19/23 20:21 Dose: 600 mg Chlorpromazine HCl (Chlorpromazine Hcl 100 Mg Tablet) 200 mg PO BEDTIME [facility] Last Admin: 03/20/23 20:24 Dose: 200 mg Chlorpromazine HCl (Chlorpromazine Hcl 100 Mg Tablet) 100 mg PO BID@0900,1300 [facility] Last Admin: 03/20/23 14:20 Dose: 100 mg Chlorpromazine HCl (Chlorpromazine Hcl 100 Mg Tablet) 100 mg PO DAILY PRN PRN Reason: agitation/anxiety Diphenhydramine HCl (Diphenhydramine Hcl 25 Mg Capsule) 50 mg PO Q6H PRN PRN Reason: Allergic Symptoms Last Admin: 03/19/23 20:32 Dose: 50 mg Fluphenazine Decanoate (Fluphenazine Decanoate 25 Mg/Ml 5 Ml Vial) 25 mg IM Q14D@0900 [facility] Last Admin: 03/17/23 09:34 Dose: 25 mg Fluphenazine HCl (Fluphenazine Hcl 2.5 Mg/Ml 10 Ml Vial) 5 mg IM TID PRN PRN Reason: refusal of PO fluphenazine Fluphenazine HCl (Fluphenazine Hcl 5 Mg Tablet) 5 mg PO BID [facility] Last Admin: 03/20/23 09:13 Dose: 5 mg [place] Carbonate ([place] Carbonate Er 450 Mg Tablet.Er) 900 mg PO BEDTIME [facility] Last Admin: 03/19/23 20:21 Dose: 900 mg [place] Carbonate ([place] Carbonate Er 300 Mg Tablet.Er) 300 mg PO DAILY [facility] Last Admin: 03/20/23 09:13 Dose: 300 mg [place] Carbonate ([place] Carbonate Er 450 Mg Tablet.Er) 450 mg PO DAILY [facility] Last Admin: 03/20/23 09:13 Dose: 450 mg Magnesium Hydroxide (Milk Of Magnesia 30 Ml Oral.Susp) 30 ml PO DAILY PRN PRN Reason: Constipation Last Admin: 03/14/23 20:03 Dose: 30 ml Multi-Ingred Cream/Lotion/Oil/Oint (Mineral Oil/Petrolatum,White 106 Gm Tube) 1 appl TOPICAL BID [facility]; Protocol Last Admin: 03/20/23 09:41 Dose: Not Given Nicotine (Nicotine 21 Mg Patch.Td24) 21 mg TRANSDERMA DAILY PRN PRN Reason: smoking cessation Last Admin: 01/15/23 16:06 Dose: 21 mg Nicotine Polacrilex (Nicotine Polacrilex 2 Mg Gum) 4 mg BUCCAL Q2H PRN PRN Reason: nicotine cravings Last Admin: 02/09/23 11:45 Dose: 4 mg Allergies Allergies Allergy/AdvReac Type Severity Reaction Status Date / Time morphine [MORPHINE] AdvReac Unknown NAUSEA Verified 12/10/22 19:56 Assessment & Plan Assessment & Plan (1) Nonspecific ST-T wave electrocardiographic changes: Status: Acute Code(s): R94.31 - Abnormal electrocardiogram [ECG] [EKG] (2) Cocaine use disorder: Status: Acute Code(s): F14.10 - Cocaine abuse, uncomplicated (3) Schizoaffective disorder, bipolar type: Status: Acute Code(s): F25.0 - Schizoaffective disorder, bipolar type (4) Opioid use disorder: Status: Acute Code(s): F11.90 - Opioid use, unspecified, uncomplicated Plan 12/24: attempt to give anti-psychotics. comfort meds for opioid and cocaine withdrawal. 12/25: refusing medications. period of agitation last night slamming doors and yelling (presumably @). continue current mgmt. 12/26: refusing meds. binging and purging. floridly psychotic. 12/27: had meds last night for sleep, per his request. schedule all haldol tonight with ativan and cogentin. a bit more interactive today, remains delayed and distracted. no binging/purging behaviors or agitated behaviors described by RN report today. 12/28: refused meds last night. Today asks for meds for sx mgt- aggressive today- threw two coffee cups. Begin Depakote 250 mg bid. 12/29: got multiple meds last NOC and overnight per his request. slept 2 hours. refusing meds this morning. commitment paperwork completed. 3-day notice expires tomorrow. c/o opioid craving, asked for methadone. methadone 30 mg daily started today. 12/30: filed for commitment today. haldol and ativan per his request last night. appears in disbelief that he will not be discharged today. 12/31: demanding to leave, getting agitated, banging on nursing station, slamming doors in his room. given IMs x 2, haldol 10 ativan 2 benadryl 50 for first and thorazine 100 for second. 01/01: Remains unpredictable and irritable. Refusing scheduled medications. Section 7/ filed. 01/02: Continue current management. 01/03: refusing meds. irritable, labile. periods of agitation. continue current mgmt, awaiting hearing for . 01/04: refusing meds. irritable, labile. periods of agitation. continue current mgmt, though pt is refusing meds. 01/05: thought-blocked. denies mental illness or need for medications. offer medications. hearing tomorrow. 01/06: committed and ordered medications at hearing. 06/12/20 [facility] DC summary reviewd, pt was discharged on VPA, zyprexa, haldol. 03/14/20 DC summary reviewed, pt discharged on zyprexa, haldol. pt unable to comprehend result, agitated not to be leaving today. 01/07: copy of court order on unit, will order meds accordingly today. no change in presentation. 01/08: Continue current regimen and plans 01/09: Continue current plans and regimen. Discontinue contingent IM Ativan if Depakote refused 01/10: Continue current regimen and plans. 01/11: DC VPA, start tegretol per pt preference. ativan 2 mg IM for refusal of tegretol. continue haldol PO/IM orders. improved from last week. less agitated, a bit more organized and engaging. 01/12: appears more disorganized again today, trouble engaging. refused PO meds last night but did take tegretol PO this morning. 01/13: continues disorganized, difficulty expressing himself. refusing PO meds since yesterday morning. slept 10 hours last night, however 01/14: intermittently taking meds PO versus IM. improved behavior from prior to med order, but remains floridly psychotic. continue current mgmt. 01/16/2023: No changes to current plan 01/17: more compliant with tegretol in recent days, still getting haldol IM. no change in presentation. continue current mgmt. 01/18: remains psychotic, labile. increase tegretol to 300 mg BID. 01/19: continues more aggressive and labile today. increase haldol to 10 BID with back-up IM of 7.5 mg. 01/20: more calm today,periods of agitation, however, in the past 24H. continue current mgmt. declines to change scheduled haldol to thorazine (proposed by in the hope he would in order to spare him the IMs). 01/21 continue tx. 01/22 writing for thorazine at bed- mr x1 and check ekg given other antipsychotics on board 01/23 agreed to ekg today, added 1pm dose of 5mg haldol 01/24: taking meds PO, still suffering from AH, possibly VH. perhaps trending more calm, but clearly still periods of agitation in the past several days. 01/25: labile, paranoid delusions. informed staff he experiences AH, mumbles recently. increase tegretol to 400 BID, make IR formulation as he has been chewing the pills. 01/26: more calm today. continue current mgmt. 01/27: continues more calm. some staff concerned for akathisia due to pacing and number of PRNs taken, but appears to be doing less walking than he had been before, does not appear restless or uncomfortable. continue current mgmt, check tegretol level 2 weeks after dose change (02/08). 01/28: stable presentation. intermittent sleep disturbance. continue current mgmt. 01/29: Continue current management. Benadryl for allergies 01/30: Continue current plan of care. 01/31: continues to ask for lots of PRNs. no change in presentation. 01/28 mild anemia and hyponatremia; trend. tegretol level 10.3. 02/01: series of abnormal and dynamic EKGs; today's WNL. cardiology consult requested for opinion. will start lithium pending cards opinion re EKG series. no change in presentation. 02/02: appreciate cardiology consultation and opinion. echocardiogram ordered. lithium started. appears better able to tolerate longer interaction today. 02/03: improved ability to tolerate social engagements continues. feels lithium has been helpful. akathisia likely. decrease haldol 02/10/10 to 5 BID and add thorazine 25 BID at 0900 and 1300. 02/04: clear uptick in psychotic.manic behavior yesterday after haldol dose decrease. eloped today. increase thorazine to 100/100/200 with PRNS available. 02/05: no concerning behaviors since elopement yesterday. refused PO haldol last night, otherwise med compliant. 02/06: med-compliant, no concerning behaviors. continue current mgmt. 02/07: check BMP along with lithium level. stable presentation. 02/08: CBC/BMP not concerning. lithium 0.6, tegretol 9.0. increase lithium dosing from 600 BID to 600/900 as of tonight. DC haldol entirely out of concerns for akathisia. invega not a great option due to tegretol interaction. start prolixin PO with IM back-up as alternative neuroleptic to haldol. 02/09: Continue current tx plan. 02/10: increase prolixin from 5 BID to 5 TID. otherwise continue current mgmt. 02/11: continue current mgmt. check labs jeferson of 02/13. 02/12: Continue current plan. Check labs in AM. 02/13: Continue current treatment plan. Li level 0.68, CMZ level 8.6 02/14: Continue current regimen and plans 02/15: increase lithium to 750/900. T/C increasing tegretol in near future as well. gradually seems to be improving. 02/16: stable. continue current mgmt. has broached feeling depressed the past couple of days. 02/17: Continue current tx plan. 02/18: check labs in several days. stable, Sx much improved from prior but still clearly psychotic. 02/20: no changes 02/21: continue current mgmt. check labs soon. still psychotic, endorsing AH. 02/22: no change in presentation. check lithium and tegretol levels tomorrow. 02/23: tegretol 8.3, lithium 0.96. increase tegretol from 400 BID to 400/600 as of tonight. c/o restlessness, concern for akathisia. will review neuroleptics regimen if Sx do not improve in next several days (as might be the case if his restlessness is residual dante). also, AH continue. 02/24: stable. continue current mgmt. assess Sx over next week, then check tegretol level. 02/25: better related, discussed his post-discharge plans. family meeting late next week. continue current regimen, check labs around 03/02. 02/26: Continue plan of care discharge planning 02/27: Patient can not continues much improved states he feels much better without drug use no psychosis. 02/28: +RIS, bizarrely ends interview with MD by just getting up and walking away without a look or a word. increase prolixin 5 TID to 7.5 TID for psychosis. otherwise continue current mgmt. 03/01: continue current mgmt. tired today, stayed in bed. 03/02: tired again, rouses himself to sit up for interview. latency of response, asks MD to repeat question once, but denies AH. continue current mgmt. 03/03: more up and about today. unconvincingly denies AH. continue current mgmt. check labs tonight. 03/04: labs reviewed with pt, that they are reassuring and medication levels are good. tegretol 9.6, lithium 0.76. continue current mgmt. 03/05: Continue current regimen and plans. 03/06: Continue current plans and regimen 03/07: continue current mgmt. mtg btwn SW and pt's family held today. 03/08: Continue current tx plan. 03/09: Patient presents guarded during 1:1. He reports feeling okay today; states he is sleeping well. Isolative. Pt reports he doesn't go to groups because I don't learn anything . Denies SI/HI/VH/AH. Continue current tx plan. 03/10: Patient presents guarded and brief today. He reports feeling good . Pt stated, I don't need anything Denies SI/HI/VH/AH. 03/11: periods of cogency and periods of apparent thought disorganization. denying Sx but appears to still be RIS and distracted. continue current mgmt for now. 03/12 continue same treatment. 03/13 continue same treatment. 03/14: continue current mgmt. plan to streamline medications regimen prior to discharge. T/C prolixin MENDES. 03/15: Continue current treatment plan. 03/16: streamlining meds today. decrease thorazine PRN availability. start prolixin decanoate tomorrow morning, will decrease PO prolixin by about half once the injection is given. continue other medications for now. 03/17: received prolixin DEC 25 mg today. decrease PO prolixin from 7.5 TID to 5 BID, otherwise continue current mgmt. 03/18: Continue current treatment plan. 03/19: continue current mgmt. noted to have hit himself in the thigh twice apparently in frustration, occasionally mumble to himself, and have a minimal outburst at last evening. likely related to transition from PO prolixin to IM decanoate. 03/20: no change in presentation. continue current mgmt. Reason for continued inpatient stay Substantial Risk for: harm to self, inability to function and rapid decompensation Time Spent With Patient Time: Total time managing care of this patient today ____ minutes.
[2023-03-20] MEDS: carBAMazepine ER 200 MG TAB.ER.12H 600 MG PO (21:11)
[2023-03-20] MEDS: Lithium Carbonate ER 450 MG TABLET.ER 900 MG PO (21:11)
[2023-03-20] MEDS: diphenhydrAMINE HCL 25 MG CAPSULE 50 MG PO (21:54)
[2023-03-21 07:50] VITALS: BP 108/62; PULSE 60; RESP 14; TEMP 36.7; O2SAT 97
[2023-03-21] MEDS: Benztropine Mesylate 1 MG TABLET PO ×2 (09:30→21:23)
[2023-03-21] MEDS: fluPHENAZine HCl 5 MG TABLET PO ×2 (09:30→21:24)
[2023-03-21] MEDS: Lithium Carbonate ER 450 MG TABLET.ER PO (09:31)
[2023-03-21] MEDS: carBAMazepine 200 MG TABLET 400 MG PO (09:31)
[2023-03-21] MEDS: chlorproMAZINE HCl 100 MG TABLET PO ×2 (09:32→13:06)
[2023-03-21] MEDS: Lithium Carbonate ER 300 MG TABLET.ER PO (09:32)
--- NOTE | 2023-03-21 14:26 | P.PNPSI_ITS ---
Subjective Subjective Date of Service: 03/21/23 Reason For Visit: Psychosis Interim History: calm, cooperative. denies any changes or concerns. educated re process with switching from PO prolixin to MENDES. per staff, no changes in presentation. Mental Status Exam Mental Status Exam Narrative: Pt is alert and oriented; behavior is guarded and calm; dressed in casual attire; mood is described as good ; eye contact appropriate; Speech is normal rate, volume and prosody and not pressured; thought process is linear and logical, some HAMLET; otherwise pertinent to relevant topics and without any delusional content, paranoid ideations or grandiosity; no SI/HI/AVH expressed. Diagnostics Vital Signs (24Hr): Vital Signs - 24 hr 03/20/23 19:24 03/21/23 07:50 Temperature 98.4 F 98.1 F Pulse Rate 83 60 Respiratory Rate 14 14 Blood Pressure 132/82 108/62 Pulse Oximetry 99 97 Oxygen Delivery Method Room Air BMI result Body Mass Index 29.1 Labs 03/03/23 20:10 03/03/23 20:10 Medications Medications Current Medications Acetaminophen (Acetaminophen 325 Mg Tablet) 650 mg PO Q6H PRN PRN Reason: Headache/Pain Mild Scale (1-3) Last Admin: 03/13/23 10:24 Dose: 650 mg Al Hydroxide/Mg Hydroxide (Magnesium Hydrox/Alum Hydrox 30 Ml Oral.Susp) 30 ml PO Q6H PRN PRN Reason: Heartburn/Nausea Last Admin: 01/29/23 22:57 Dose: 30 ml Benztropine Mesylate (Benztropine Mesylate 1 Mg Tablet) 1 mg PO BID [facility] Last Admin: 03/21/23 09:30 Dose: 1 mg Carbamazepine (Carbamazepine 200 Mg Tablet) 400 mg PO DAILY [facility] Last Admin: 03/21/23 09:31 Dose: 400 mg Carbamazepine (Carbamazepine Er 200 Mg Tab.Er.12h) 600 mg PO BEDTIME [facility] Last Admin: 03/20/23 21:11 Dose: 600 mg Chlorpromazine HCl (Chlorpromazine Hcl 100 Mg Tablet) 200 mg PO BEDTIME [facility] Last Admin: 03/20/23 20:24 Dose: 200 mg Chlorpromazine HCl (Chlorpromazine Hcl 100 Mg Tablet) 100 mg PO BID@0900,1300 [facility] Last Admin: 03/21/23 13:06 Dose: 100 mg Chlorpromazine HCl (Chlorpromazine Hcl 100 Mg Tablet) 100 mg PO DAILY PRN PRN Reason: agitation/anxiety Diphenhydramine HCl (Diphenhydramine Hcl 25 Mg Capsule) 50 mg PO Q6H PRN PRN Reason: Allergic Symptoms Last Admin: 03/20/23 21:54 Dose: 50 mg Fluphenazine Decanoate (Fluphenazine Decanoate 25 Mg/Ml 5 Ml Vial) 25 mg IM Q14D@0900 [facility] Last Admin: 03/17/23 09:34 Dose: 25 mg Fluphenazine HCl (Fluphenazine Hcl 2.5 Mg/Ml 10 Ml Vial) 5 mg IM TID PRN PRN Reason: refusal of PO fluphenazine Fluphenazine HCl (Fluphenazine Hcl 5 Mg Tablet) 5 mg PO BID [facility] Last Admin: 03/21/23 09:30 Dose: 5 mg Symerton Carbonate (Symerton Carbonate Er 450 Mg Tablet.Er) 900 mg PO BEDTIME [facility] Last Admin: 03/20/23 21:11 Dose: 900 mg [place] Carbonate (Symerton Carbonate Er 300 Mg Tablet.Er) 300 mg PO DAILY [facility] Last Admin: 03/21/23 09:32 Dose: 300 mg [place] Carbonate (Symerton Carbonate Er 450 Mg Tablet.Er) 450 mg PO DAILY [facility] Last Admin: 03/21/23 09:31 Dose: 450 mg Magnesium Hydroxide (Milk Of Magnesia 30 Ml Oral.Susp) 30 ml PO DAILY PRN PRN Reason: Constipation Last Admin: 03/14/23 20:03 Dose: 30 ml Multi-Ingred Cream/Lotion/Oil/Oint (Mineral Oil/Petrolatum,White 106 Gm Tube) 1 appl TOPICAL BID [facility]; Protocol Last Admin: 03/21/23 09:32 Dose: Not Given Nicotine (Nicotine 21 Mg Patch.Td24) 21 mg TRANSDERMA DAILY PRN PRN Reason: smoking cessation Last Admin: 01/15/23 16:06 Dose: 21 mg Nicotine Polacrilex (Nicotine Polacrilex 2 Mg Gum) 4 mg BUCCAL Q2H PRN PRN Reason: nicotine cravings Last Admin: 02/09/23 11:45 Dose: 4 mg Allergies Allergies Allergy/AdvReac Type Severity Reaction Status Date / Time morphine [MORPHINE] AdvReac Unknown NAUSEA Verified 12/10/22 19:56 Assessment & Plan Assessment & Plan (1) Nonspecific ST-T wave electrocardiographic changes: Status: Acute Code(s): R94.31 - Abnormal electrocardiogram [ECG] [EKG] (2) Cocaine use disorder: Status: Acute Code(s): F14.10 - Cocaine abuse, uncomplicated (3) Schizoaffective disorder, bipolar type: Status: Acute Code(s): F25.0 - Schizoaffective disorder, bipolar type (4) Opioid use disorder: Status: Acute Code(s): F11.90 - Opioid use, unspecified, uncomplicated Plan 12/24: attempt to give anti-psychotics. comfort meds for opioid and cocaine withdrawal. 12/25: refusing medications. period of agitation last night slamming doors and yelling (presumably @). continue current mgmt. 12/26: refusing meds. binging and purging. floridly psychotic. 12/27: had meds last night for sleep, per his request. schedule all haldol tonight with ativan and cogentin. a bit more interactive today, remains delayed and distracted. no binging/purging behaviors or agitated behaviors described by RN report today. 12/28: refused meds last night. Today asks for meds for sx mgt- aggressive today- threw two coffee cups. Begin Depakote 250 mg bid. 12/29: got multiple meds last NOC and overnight per his request. slept 2 hours. refusing meds this morning. commitment paperwork completed. 3-day notice expires tomorrow. c/o opioid craving, asked for methadone. methadone 30 mg daily started today. 12/30: filed for commitment today. haldol and ativan per his request last night. appears in disbelief that he will not be discharged today. 12/31: demanding to leave, getting agitated, banging on nursing station, slamming doors in his room. given IMs x 2, haldol 10 ativan 2 benadryl 50 for first and thorazine 100 for second. 01/01: Remains unpredictable and irritable. Refusing scheduled medications. Section 7/ filed. 01/02: Continue current management. 01/03: refusing meds. irritable, labile. periods of agitation. continue current mgmt, awaiting hearing for . 01/04: refusing meds. irritable, labile. periods of agitation. continue current mgmt, though pt is refusing meds. 01/05: thought-blocked. denies mental illness or need for medications. offer medications. hearing tomorrow. 01/06: committed and ordered medications at hearing. [place] [facility] [place] was discharged on VPA, zyprexa, haldol. 03/14/20 [place] summary reviewed, pt discharged on zyprexa, haldol. pt unable to comprehend result, agitated not to be leaving today. 01/07: copy of court order on unit, will order meds accordingly today. no change in presentation. 01/08: Continue current regimen and plans 01/09: Continue current plans and regimen. Discontinue contingent IM Ativan if Depakote refused 01/10: Continue current regimen and plans. 01/11: DC VPA, start tegretol per pt preference. ativan 2 mg IM for refusal of tegretol. continue haldol PO/IM orders. improved from last week. less agitated, a bit more organized and engaging. 01/12: appears more disorganized again today, trouble engaging. refused PO meds last night but did take tegretol PO this morning. 01/13: continues disorganized, difficulty expressing himself. refusing PO meds since yesterday morning. slept 10 hours last night, however 01/14: intermittently taking meds PO versus IM. improved behavior from prior to med order, but remains floridly psychotic. continue current mgmt. 01/16/2023: No changes to current plan 01/17: more compliant with tegretol in recent days, still getting haldol IM. no change in presentation. continue current mgmt. 01/18: remains psychotic, labile. increase tegretol to 300 mg BID. 01/19: continues more aggressive and labile today. increase haldol to 10 BID with back-up IM of 7.5 mg. 01/20: more calm today,periods of agitation, however, in the past 24H. continue current mgmt. declines to change scheduled haldol to thorazine (proposed by MD in the hope he would in order to spare him the IMs). 01/21 continue tx. 01/22 writing for thorazine at bed- mr x1 and check ekg given other antipsychotics on board 01/23 agreed to ekg today, added 1pm dose of 5mg haldol 01/24: taking meds PO, still suffering from AH, possibly VH. perhaps trending more calm, but clearly still periods of agitation in the past several days. 01/25: labile, paranoid delusions. informed staff he experiences AH, mumbles recently. increase tegretol to 400 BID, make IR formulation as he has been chewing the pills. 01/26: more calm today. continue current mgmt. 01/27: continues more calm. some staff concerned for akathisia due to pacing and number of PRNs taken, but appears to be doing less walking than he had been before, does not appear restless or uncomfortable. continue current mgmt, check tegretol level 2 weeks after dose change (02/08). 01/28: stable presentation. intermittent sleep disturbance. continue current mgmt. 01/29: Continue current management. Benadryl for allergies 01/30: Continue current plan of care. 01/31: continues to ask for lots of PRNs. no change in presentation. 01/28 mild anemia and hyponatremia; trend. tegretol level 10.3. 02/01: series of abnormal and dynamic EKGs; today's WNL. cardiology consult requested for opinion. will start lithium pending cards opinion re EKG series. no change in presentation. 02/02: appreciate cardiology consultation and opinion. echocardiogram ordered. lithium started. appears better able to tolerate longer interaction today. 02/03: improved ability to tolerate social engagements continues. feels lithium has been helpful. akathisia likely. decrease haldol 02/10/10 to 5 BID and add thorazine 25 BID at 0900 and 1300. 02/04: clear uptick in psychotic.manic behavior yesterday after haldol dose decrease. eloped today. increase thorazine to 100/100/200 with PRNS available. 02/05: no concerning behaviors since elopement yesterday. refused PO haldol last night, otherwise med compliant. 02/06: med-compliant, no concerning behaviors. continue current mgmt. 02/07: check BMP along with lithium level. stable presentation. 02/08: CBC/BMP not concerning. lithium 0.6, tegretol 9.0. increase lithium dosing from 600 BID to 600/900 as of tonight. DC haldol entirely out of concerns for akathisia. invega not a great option due to tegretol interaction. start prolixin PO with IM back-up as alternative neuroleptic to haldol. 02/09: Continue current tx plan. 02/10: increase prolixin from 5 BID to 5 TID. otherwise continue current mgmt. 02/11: continue current mgmt. check labs jeferson of 02/13. 02/12: Continue current plan. Check labs in AM. 02/13: Continue current treatment plan. Li level 0.68, CMZ level 8.6 02/14: Continue current regimen and plans 02/15: increase lithium to 750/900. T/C increasing tegretol in near future as well. gradually seems to be improving. 02/16: stable. continue current mgmt. has broached feeling depressed the past couple of days. 02/17: Continue current tx plan. 02/18: check labs in several days. stable, Sx much improved from prior but still clearly psychotic. 02/20: no changes 02/21: continue current mgmt. check labs soon. still psychotic, endorsing AH. 02/22: no change in presentation. check lithium and tegretol levels tomorrow. 02/23: tegretol 8.3, lithium 0.96. increase tegretol from 400 BID to 400/600 as of tonight. c/o restlessness, concern for akathisia. will review neuroleptics regimen if Sx do not improve in next several days (as might be the case if his restlessness is residual dante). also, AH continue. 02/24: stable. continue current mgmt. assess Sx over next week, then check tegretol level. 02/25: better related, discussed his post-discharge plans. family meeting late next week. continue current regimen, check labs around 03/02. 02/26: Continue plan of care discharge planning 02/27: Patient can not continues much improved states he feels much better without drug use no psychosis. 02/28: +RIS, bizarrely ends interview with MD by just getting up and walking away without a look or a word. increase prolixin 5 TID to 7.5 TID for psychosis. otherwise continue current mgmt. 03/01: continue current mgmt. tired today, stayed in bed. 03/02: tired again, rouses himself to sit up for interview. latency of response, asks MD to repeat question once, but denies AH. continue current mgmt. 03/03: more up and about today. unconvincingly denies AH. continue current mgmt. check labs tonight. 03/04: labs reviewed with pt, that they are reassuring and medication levels are good. tegretol 9.6, lithium 0.76. continue current mgmt. 03/05: Continue current regimen and plans. 03/06: Continue current plans and regimen 03/07: continue current mgmt. mtg btwn SW and pt's family held today. 03/08: Continue current tx plan. 03/09: Patient presents guarded during 1:1. He reports feeling okay today; states he is sleeping well. Isolative. Pt reports he doesn't go to groups because I don't learn anything . Denies SI/HI/VH/AH. Continue current tx plan. 03/10: Patient presents guarded and brief today. He reports feeling good . Pt stated, I don't need anything Denies SI/HI/VH/AH. 03/11: periods of cogency and periods of apparent thought disorganization. denying Sx but appears to still be RIS and distracted. continue current mgmt for now. 03/12 continue same treatment. 03/13 continue same treatment. 03/14: continue current mgmt. plan to streamline medications regimen prior to discharge. T/C prolixin MENDES. 03/15: Continue current treatment plan. 03/16: streamlining meds today. decrease thorazine PRN availability. start prolixin decanoate tomorrow morning, will decrease PO prolixin by about half once the injection is given. continue other medications for now. 03/17: received prolixin DEC 25 mg today. decrease PO prolixin from 7.5 TID to 5 BID, otherwise continue current mgmt. 03/18: Continue current treatment plan. 03/19: continue current mgmt. noted to have hit himself in the thigh twice apparently in frustration, occasionally mumble to himself, and have a minimal outburst at last evening. likely related to transition from PO prolixin to IM decanoate. 03/20: no change in presentation. continue current mgmt. 03/21: stable. continue currenet mgmt. Reason for continued inpatient stay Substantial Risk for: inability to function and rapid decompensation Time Spent With Patient Time: Total time managing care of this patient today ____ minutes.
[2023-03-21 20:35] VITALS: BP 127/71; PULSE 79; RESP 16; TEMP 36.9; O2SAT 98
[2023-03-21] MEDS: Lithium Carbonate ER 450 MG TABLET.ER 900 MG PO (21:23)
[2023-03-21] MEDS: chlorproMAZINE HCl 100 MG TABLET 200 MG PO (21:24)
[2023-03-21] MEDS: carBAMazepine ER 200 MG TAB.ER.12H 600 MG PO (21:24)
[2023-03-21] MEDS: diphenhydrAMINE HCL 25 MG CAPSULE 50 MG PO (21:25)
[2023-03-22 08:00] VITALS: BP 108/66; PULSE 67; RESP 18; TEMP 36.7; O2SAT 97
[2023-03-22] MEDS: chlorproMAZINE HCl 100 MG TABLET PO ×2 (09:27→13:56)
[2023-03-22] MEDS: carBAMazepine 200 MG TABLET 400 MG PO (09:28)
[2023-03-22] MEDS: Lithium Carbonate ER 300 MG TABLET.ER PO (09:28)
[2023-03-22] MEDS: Lithium Carbonate ER 450 MG TABLET.ER PO (09:28)
[2023-03-22] MEDS: Benztropine Mesylate 1 MG TABLET PO ×2 (09:28→20:25)
[2023-03-22] MEDS: fluPHENAZine HCl 5 MG TABLET PO ×2 (09:28→20:26)
--- NOTE | 2023-03-22 14:14 | HO.PSYCHPN ---
Subjective Subjective Date of Service: 03/22/23 Reason For Visit: Psychosis Interim History: no change per pt. per staff guarded, had benadryl PRN. not attending groups. +RIS. denies Sx. Mental Status Exam Mental Status Exam Narrative: Pt is alert and oriented; behavior is guarded and calm; dressed in casual attire; mood is described as good ; eye contact appropriate; Speech is normal rate, volume and prosody and not pressured; thought process is linear and logical, some HAMLET; otherwise pertinent to relevant topics and without any delusional content, paranoid ideations or grandiosity; no SI/HI/AVH expressed. Diagnostics Vital Signs (24Hr): Vital Signs - 24 hr 03/21/23 20:35 03/22/23 08:00 Temperature 98.4 F 98.0 F Pulse Rate 79 67 Respiratory Rate 16 18 Blood Pressure 127/71 108/66 Pulse Oximetry 98 97 Oxygen Delivery Method Room Air Room Air BMI result Body Mass Index 29.1 Labs 03/03/23 20:10 03/03/23 20:10 Medications Medications Current Medications Acetaminophen (Acetaminophen 325 Mg Tablet) 650 mg PO Q6H PRN PRN Reason: Headache/Pain Mild Scale (1-3) Last Admin: 03/13/23 10:24 Dose: 650 mg Al Hydroxide/Mg Hydroxide (Magnesium Hydrox/Alum Hydrox 30 Ml Oral.Susp) 30 ml PO Q6H PRN PRN Reason: Heartburn/Nausea Last Admin: 01/29/23 22:57 Dose: 30 ml Benztropine Mesylate (Benztropine Mesylate 1 Mg Tablet) 1 mg PO BID [facility] Last Admin: 03/22/23 09:28 Dose: 1 mg Carbamazepine (Carbamazepine 200 Mg Tablet) 400 mg PO DAILY [facility] Last Admin: 03/22/23 09:28 Dose: 400 mg Carbamazepine (Carbamazepine Er 200 Mg Tab.Er.12h) 600 mg PO BEDTIME [facility] Last Admin: 03/21/23 21:24 Dose: 600 mg Chlorpromazine HCl (Chlorpromazine Hcl 100 Mg Tablet) 200 mg PO BEDTIME [facility] Last Admin: 03/21/23 21:24 Dose: 200 mg Chlorpromazine HCl (Chlorpromazine Hcl 100 Mg Tablet) 100 mg PO BID@0900,1300 [facility] Last Admin: 03/22/23 13:56 Dose: 100 mg Chlorpromazine HCl (Chlorpromazine Hcl 100 Mg Tablet) 100 mg PO DAILY PRN PRN Reason: agitation/anxiety Diphenhydramine HCl (Diphenhydramine Hcl 25 Mg Capsule) 50 mg PO Q6H PRN PRN Reason: Allergic Symptoms Last Admin: 03/21/23 21:25 Dose: 50 mg Fluphenazine Decanoate (Fluphenazine Decanoate 25 Mg/Ml 5 Ml Vial) 25 mg IM Q14D@0900 [facility] Last Admin: 03/17/23 09:34 Dose: 25 mg Fluphenazine HCl (Fluphenazine Hcl 2.5 Mg/Ml 10 Ml Vial) 5 mg IM TID PRN PRN Reason: refusal of PO fluphenazine Fluphenazine HCl (Fluphenazine Hcl 5 Mg Tablet) 5 mg PO BID [facility] Last Admin: 03/22/23 09:28 Dose: 5 mg [place] Carbonate ([place] Carbonate Er 450 Mg Tablet.Er) 900 mg PO BEDTIME [facility] Last Admin: 03/21/23 21:23 Dose: 900 mg [place] Carbonate ([place] Carbonate Er 300 Mg Tablet.Er) 300 mg PO DAILY [facility] Last Admin: 03/22/23 09:28 Dose: 300 mg [place] Carbonate ([place] Carbonate Er 450 Mg Tablet.Er) 450 mg PO DAILY [facility] Last Admin: 03/22/23 09:28 Dose: 450 mg Magnesium Hydroxide (Milk Of Magnesia 30 Ml Oral.Susp) 30 ml PO DAILY PRN PRN Reason: Constipation Last Admin: 03/14/23 20:03 Dose: 30 ml Multi-Ingred Cream/Lotion/Oil/Oint (Mineral Oil/Petrolatum,White 106 Gm Tube) 1 appl TOPICAL BID [facility]; Protocol Last Admin: 03/22/23 09:30 Dose: Not Given Nicotine (Nicotine 21 Mg Patch.Td24) 21 mg TRANSDERMA DAILY PRN PRN Reason: smoking cessation Last Admin: 01/15/23 16:06 Dose: 21 mg Nicotine Polacrilex (Nicotine Polacrilex 2 Mg Gum) 4 mg BUCCAL Q2H PRN PRN Reason: nicotine cravings Last Admin: 02/09/23 11:45 Dose: 4 mg Allergies Allergies Allergy/AdvReac Type Severity Reaction Status Date / Time morphine [MORPHINE] AdvReac Unknown NAUSEA Verified 12/10/22 19:56 Assessment & Plan Assessment & Plan (1) Nonspecific ST-T wave electrocardiographic changes: Status: Acute Code(s): R94.31 - Abnormal electrocardiogram [ECG] [EKG] (2) Cocaine use disorder: Status: Acute Code(s): F14.10 - Cocaine abuse, uncomplicated (3) Schizoaffective disorder, bipolar type: Status: Acute Code(s): F25.0 - Schizoaffective disorder, bipolar type (4) Opioid use disorder: Status: Acute Code(s): F11.90 - Opioid use, unspecified, uncomplicated Plan 12/24: attempt to give anti-psychotics. comfort meds for opioid and cocaine withdrawal. 12/25: refusing medications. period of agitation last night slamming doors and yelling (presumably @). continue current mgmt. 12/26: refusing meds. binging and purging. floridly psychotic. 12/27: had meds last night for sleep, per his request. schedule all haldol tonight with ativan and cogentin. a bit more interactive today, remains delayed and distracted. no binging/purging behaviors or agitated behaviors described by RN report today. 12/28: refused meds last night. Today asks for meds for sx mgt- aggressive today-threw two coffee cups. Begin Depakote 250 mg bid. 12/29: got multiple meds last NOC and overnight per his request. slept 2 hours. refusing meds this morning. commitment paperwork completed. 3-day notice expires tomorrow. c/o opioid craving, asked for methadone. methadone 30 mg daily started today. 12/30: filed for commitment today. haldol and ativan per his request last night. appears in disbelief that he will not be discharged today. 12/31: demanding to leave, getting agitated, banging on nursing station, slamming doors in his room. given IMs x 2, haldol 10 ativan 2 benadryl 50 for first and thorazine 100 for second. 01/01: Remains unpredictable and irritable. Refusing scheduled medications. Section 7/ filed. 01/02: Continue current management. 01/03: refusing meds. irritable, labile. periods of agitation. continue current mgmt, awaiting hearing for . 01/04: refusing meds. irritable, labile. periods of agitation. continue current mgmt, though pt is refusing meds. 01/05: thought-blocked. denies mental illness or need for medications. offer medications. hearing tomorrow. 01/06: committed and ordered medications at hearing. [place] [facility] [place] pt was discharged on VPA, zyprexa, haldol. 03/14/20 [place] summary reviewed, pt discharged on zyprexa, haldol. pt unable to comprehend result, agitated not to be leaving today. 01/07: copy of court order on unit, will order meds accordingly today. no change in presentation. 01/08: Continue current regimen and plans 01/09: Continue current plans and regimen. Discontinue contingent IM Ativan if Depakote refused 01/10: Continue current regimen and plans. 01/11: DC VPA, start tegretol per pt preference. ativan 2 mg IM for refusal of tegretol. continue haldol PO/IM orders. improved from last week. less agitated, a bit more organized and engaging. 01/12: appears more disorganized again today, trouble engaging. refused PO meds last night but did take tegretol PO this morning. 01/13: continues disorganized, difficulty expressing himself. refusing PO meds since yesterday morning. slept 10 hours last night, however 01/14: intermittently taking meds PO versus IM. improved behavior from prior to med order, but remains floridly psychotic. continue current mgmt. 01/16/2023: No changes to current plan 01/17: more compliant with tegretol in recent days, still getting haldol IM. no change in presentation. continue current mgmt. 01/18: remains psychotic, labile. increase tegretol to 300 mg BID. 01/19: continues more aggressive and labile today. increase haldol to 10 BID with back-up IM of 7.5 mg. 01/20: more calm today,periods of agitation, however, in the past 24H. continue current mgmt. declines to change scheduled haldol to thorazine (proposed by MD in the hope he would in order to spare him the IMs). 01/21 continue tx. 01/22 writing for thorazine at bed- mr x1 and check ekg given other antipsychotics on board 01/23 agreed to ekg today, added 1pm dose of 5mg haldol 01/24: taking meds PO, still suffering from AH, possibly VH. perhaps trending more calm, but clearly still periods of agitation in the past several days. 01/25: labile, paranoid delusions. informed staff he experiences AH, mumbles recently. increase tegretol to 400 BID, make IR formulation as he has been chewing the pills. 01/26: more calm today. continue current mgmt. 01/27: continues more calm. some staff concerned for akathisia due to pacing and number of PRNs taken, but appears to be doing less walking than he had been before, does not appear restless or uncomfortable. continue current mgmt, check tegretol level 2 weeks after dose change (02/08). 01/28: stable presentation. intermittent sleep disturbance. continue current mgmt. 01/29: Continue current management. Benadryl for allergies 01/30: Continue current plan of care. 01/31: continues to ask for lots of PRNs. no change in presentation. 01/28 mild anemia and hyponatremia; trend. tegretol level 10.3. 02/01: series of abnormal and dynamic EKGs; today's WNL. cardiology consult requested for opinion. will start lithium pending cards opinion re EKG series. no change in presentation. 02/02: appreciate cardiology consultation and opinion. echocardiogram ordered. lithium started. appears better able to tolerate longer interaction today. 02/03: improved ability to tolerate social engagements continues. feels lithium has been helpful. akathisia likely. decrease haldol 02/10/10 to 5 BID and add thorazine 25 BID at 0900 and 1300. 02/04: clear uptick in psychotic.manic behavior yesterday after haldol dose decrease. eloped today. increase thorazine to 100/100/200 with PRNS available. 02/05: no concerning behaviors since elopement yesterday. refused PO haldol last night, otherwise med compliant. 02/06: med-compliant, no concerning behaviors. continue current mgmt. 02/07: check BMP along with lithium level. stable presentation. 02/08: CBC/BMP not concerning. lithium 0.6, tegretol 9.0. increase lithium dosing from 600 BID to 600/900 as of tonight. DC haldol entirely out of concerns for akathisia. invega not a great option due to tegretol interaction. start prolixin PO with IM back-up as alternative neuroleptic to haldol. 02/09: Continue current tx plan. 02/10: increase prolixin from 5 BID to 5 TID. otherwise continue current mgmt. 02/11: continue current mgmt. check labs jeferson of 02/13. 02/12: Continue current plan. Check labs in AM. 02/13: Continue current treatment plan. Li level 0.68, CMZ level 8.6 02/14: Continue current regimen and plans 02/15: increase lithium to 750/900. T/C increasing tegretol in near future as well. gradually seems to be improving. 02/16: stable. continue current mgmt. has broached feeling depressed the past couple of days. 02/17: Continue current tx plan. 02/18: check labs in several days. stable, Sx much improved from prior but still clearly psychotic. 02/20: no changes 02/21: continue current mgmt. check labs soon. still psychotic, endorsing AH. 02/22: no change in presentation. check lithium and tegretol levels tomorrow. 02/23: tegretol 8.3, lithium 0.96. increase tegretol from 400 BID to 400/600 as of tonight. c/o restlessness, concern for akathisia. will review neuroleptics regimen if Sx do not improve in next several days (as might be the case if his restlessness is residual dante). also, AH continue. 02/24: stable. continue current mgmt. assess Sx over next week, then check tegretol level. 02/25: better related, discussed his post-discharge plans. family meeting late next week. continue current regimen, check labs around 03/02. 02/26: Continue plan of care discharge planning 02/27: Patient can not continues much improved states he feels much better without drug use no psychosis. 02/28: +RIS, bizarrely ends interview with MD by just getting up and walking away without a look or a word. increase prolixin 5 TID to 7.5 TID for psychosis. otherwise continue current mgmt. 03/01: continue current mgmt. tired today, stayed in bed. 03/02: tired again, rouses himself to sit up for interview. latency of response, asks MD to repeat question once, but denies AH. continue current mgmt. 03/03: more up and about today. unconvincingly denies AH. continue current mgmt. check labs tonight. 03/04: labs reviewed with pt, that they are reassuring and medication levels are good. tegretol 9.6, lithium 0.76. continue current mgmt. 03/05: Continue current regimen and plans. 03/06: Continue current plans and regimen 03/07: continue current mgmt. mtg btwn SW and pt's family held today. 03/08: Continue current tx plan. 03/09: Patient presents guarded during 1:1. He reports feeling okay today; states he is sleeping well. Isolative. Pt reports he doesn't go to groups because I don't learn anything . Denies SI/HI/VH/AH. Continue current tx plan. 03/10: Patient presents guarded and brief today. He reports feeling good . Pt stated, I don't need anything Denies SI/HI/VH/AH. 03/11: periods of cogency and periods of apparent thought disorganization. denying Sx but appears to still be RIS and distracted. continue current mgmt for now. 03/12 continue same treatment. 03/13 continue same treatment. 03/14: continue current mgmt. plan to streamline medications regimen prior to discharge. T/C prolixin MENDES. 03/15: Continue current treatment plan. 03/16: streamlining meds today. decrease thorazine PRN availability. start prolixin decanoate tomorrow morning, will decrease PO prolixin by about half once the injection is given. continue other medications for now. 03/17: received prolixin DEC 25 mg today. decrease PO prolixin from 7.5 TID to 5 BID, otherwise continue current mgmt. 03/18: Continue current treatment plan. 03/19: continue current mgmt. noted to have hit himself in the thigh twice apparently in frustration, occasionally mumble to himself, and have a minimal outburst at last evening. likely related to transition from PO prolixin to IM decanoate. 03/20: no change in presentation. continue current mgmt. 03/21: stable. continue current mgmt. 03/22: stable. continue current mgmt. next prolixin DEC dose 03/31, DC PO prolixin at that time. Reason for continued inpatient stay Substantial Risk for: inability to function and rapid decompensation Time Spent With Patient Time: Total time managing care of this patient today ____ minutes.
[2023-03-22 19:40] VITALS: BP 145/82; PULSE 88; RESP 18; TEMP 36.4; O2SAT 98
[2023-03-22] MEDS: carBAMazepine ER 200 MG TAB.ER.12H 600 MG PO (20:20)
[2023-03-22] MEDS: diphenhydrAMINE HCL 25 MG CAPSULE 50 MG PO (20:24)
[2023-03-22] MEDS: Lithium Carbonate ER 450 MG TABLET.ER 900 MG PO (20:24)
[2023-03-22] MEDS: chlorproMAZINE HCl 100 MG TABLET 200 MG PO (20:25)
[2023-03-23 08:13] VITALS: BP 112/62; PULSE 81; RESP 20; TEMP 36.7; O2SAT 98
[2023-03-23] MEDS: Lithium Carbonate ER 300 MG TABLET.ER PO (08:15)
[2023-03-23] MEDS: carBAMazepine 200 MG TABLET 400 MG PO (08:15)
[2023-03-23] MEDS: Lithium Carbonate ER 450 MG TABLET.ER PO (08:15)
[2023-03-23] MEDS: Benztropine Mesylate 1 MG TABLET PO ×2 (08:15→20:30)
[2023-03-23] MEDS: chlorproMAZINE HCl 100 MG TABLET PO ×2 (08:15→13:49)
[2023-03-23] MEDS: fluPHENAZine HCl 5 MG TABLET PO ×2 (08:15→20:31)
--- NOTE | 2023-03-23 10:08 | P.PNPSI_ITS ---
Subjective Subjective Date of Service: 03/23/23 Reason For Visit: Psychosis Subjective Notes: Section 8 Interim History: Reviewed in team and . Patient reports he did not sleep well last night; napping during the morning. Isolative. Pt stated, I'm fine. The meds are fine . Denies SI/HI/VH/AH. Medication Compliance: Yes Side effects from medications: No Attending Groups: No Review of Systems Constitutional: Reports as per HPI Eyes: Reports as per HPI Reports as per HPI Cardiovascular: Reports as per HPI Respiratory: Reports as per HPI Gastrointestinal: Reports as per HPI Genitourinary: Reports as per HPI Musculoskeletal: Reports as per HPI Skin/Breast: Reports as per HPI Reports as per HPI Psychiatric: Reports as per HPI Endocrine: Reports as per HPI Hematologic/Lymphatic: Reports as per HPI Allergic/Immunologic: Reports as per HPI Mental Status Exam Mental Status Exam Narrative: Pt is alert and oriented; behavior is guarded and calm; dressed in casual attire; mood is described as good ; eye contact appropriate; Speech is normal rate, volume and prosody and not pressured; thought process is organized; otherwise pertinent to relevant topics and without any delusional content, paranoid ideations or grandiosity; denies SI/HI/AH/VH. Diagnostics Vital Signs (24Hr): Vital Signs - 24 hr 03/22/23 19:40 03/23/23 08:13 Temperature 97.6 F 98.1 F Pulse Rate 88 81 Respiratory Rate 18 20 Blood Pressure 145/82 H 112/62 Pulse Oximetry 98 98 Oxygen Delivery Method Room Air Room Air BMI result Body Mass Index 29.1 Labs 03/03/23 20:10 03/03/23 20:10 Medications Medications Current Medications Acetaminophen (Acetaminophen 325 Mg Tablet) 650 mg PO Q6H PRN PRN Reason: Headache/Pain Mild Scale (1-3) Last Admin: 03/13/23 10:24 Dose: 650 mg Al Hydroxide/Mg Hydroxide (Magnesium Hydrox/Alum Hydrox 30 Ml Oral.Susp) 30 ml PO Q6H PRN PRN Reason: Heartburn/Nausea Last Admin: 01/29/23 22:57 Dose: 30 ml Benztropine Mesylate (Benztropine Mesylate 1 Mg Tablet) 1 mg PO BID [facility] Last Admin: 03/23/23 08:15 Dose: 1 mg Carbamazepine (Carbamazepine 200 Mg Tablet) 400 mg PO DAILY [facility] Last Admin: 03/23/23 08:15 Dose: 400 mg Carbamazepine (Carbamazepine Er 200 Mg Tab.Er.12h) 600 mg PO BEDTIME [facility] Last Admin: 03/22/23 20:20 Dose: 600 mg Chlorpromazine HCl (Chlorpromazine Hcl 100 Mg Tablet) 200 mg PO BEDTIME [facility] Last Admin: 03/22/23 20:25 Dose: 200 mg Chlorpromazine HCl (Chlorpromazine Hcl 100 Mg Tablet) 100 mg PO BID@0900,1300 [facility] Last Admin: 03/23/23 08:15 Dose: 100 mg Chlorpromazine HCl (Chlorpromazine Hcl 100 Mg Tablet) 100 mg PO DAILY PRN PRN Reason: agitation/anxiety Diphenhydramine HCl (Diphenhydramine Hcl 25 Mg Capsule) 50 mg PO Q6H PRN PRN Reason: Allergic Symptoms Last Admin: 03/22/23 20:24 Dose: 50 mg Fluphenazine Decanoate (Fluphenazine Decanoate 25 Mg/Ml 5 Ml Vial) 25 mg IM Q14D@0900 [facility] Last Admin: 03/17/23 09:34 Dose: 25 mg Fluphenazine HCl (Fluphenazine Hcl 2.5 Mg/Ml 10 Ml Vial) 5 mg IM TID PRN PRN Reason: refusal of PO fluphenazine Fluphenazine HCl (Fluphenazine Hcl 5 Mg Tablet) 5 mg PO BID [facility] Last Admin: 03/23/23 08:15 Dose: 5 mg [place] Carbonate ([place] Carbonate Er 450 Mg Tablet.Er) 900 mg PO BEDTIME [facility] Last Admin: 03/22/23 20:24 Dose: 900 mg [place] Carbonate ([place] Carbonate Er 300 Mg Tablet.Er) 300 mg PO DAILY [facility] Last Admin: 03/23/23 08:15 Dose: 300 mg [place] Carbonate ([place] Carbonate Er 450 Mg Tablet.Er) 450 mg PO DAILY [facility] Last Admin: 03/23/23 08:15 Dose: 450 mg Magnesium Hydroxide (Milk Of Magnesia 30 Ml Oral.Susp) 30 ml PO DAILY PRN PRN Reason: Constipation Last Admin: 03/14/23 20:03 Dose: 30 ml Multi-Ingred Cream/Lotion/Oil/Oint (Mineral Oil/Petrolatum,White 106 Gm Tube) 1 appl TOPICAL BID [facility]; Protocol Last Admin: 03/23/23 08:17 Dose: Not Given Nicotine (Nicotine 21 Mg Patch.Td24) 21 mg TRANSDERMA DAILY PRN PRN Reason: smoking cessation Last Admin: 01/15/23 16:06 Dose: 21 mg Nicotine Polacrilex (Nicotine Polacrilex 2 Mg Gum) 4 mg BUCCAL Q2H PRN PRN Reason: nicotine cravings Last Admin: 02/09/23 11:45 Dose: 4 mg Allergies Allergies Allergy/AdvReac Type Severity Reaction Status Date / Time morphine [MORPHINE] AdvReac Unknown NAUSEA Verified 12/10/22 19:56 Assessment & Plan Assessment & Plan (1) Nonspecific ST-T wave electrocardiographic changes: Status: Acute Code(s): R94.31 - Abnormal electrocardiogram [ECG] [EKG] (2) Cocaine use disorder: Status: Acute Code(s): F14.10 - Cocaine abuse, uncomplicated (3) Schizoaffective disorder, bipolar type: Status: Acute Code(s): F25.0 - Schizoaffective disorder, bipolar type (4) Opioid use disorder: Status: Acute Code(s): F11.90 - Opioid use, unspecified, uncomplicated Plan 12/24: attempt to give anti-psychotics. comfort meds for opioid and cocaine withdrawal. 12/25: refusing medications. period of agitation last night slamming doors and yelling (presumably @). continue current mgmt. 12/26: refusing meds. binging and purging. floridly psychotic. 12/27: had meds last night for sleep, per his request. schedule all haldol tonight with ativan and cogentin. a bit more interactive today, remains delayed and distracted. no binging/purging behaviors or agitated behaviors described by RN report today. 12/28: refused meds last night. Today asks for meds for sx mgt- aggressive today- threw two coffee cups. Begin Depakote 250 mg bid. 12/29: got multiple meds last NOC and overnight per his request. slept 2 hours. refusing meds this morning. commitment paperwork completed. 3-day notice expires tomorrow. c/o opioid craving, asked for methadone. methadone 30 mg daily started today. 12/30: filed for commitment today. haldol and ativan per his request last night. appears in disbelief that he will not be discharged today. 12/31: demanding to leave, getting agitated, banging on nursing station, slamming doors in his room. given IMs x 2, haldol 10 ativan 2 benadryl 50 for first and thorazine 100 for second. 01/01: Remains unpredictable and irritable. Refusing scheduled medications. Section 7/ filed. 01/02: Continue current management. 01/03: refusing meds. irritable, labile. periods of agitation. continue current mgmt, awaiting hearing for . 01/04: refusing meds. irritable, labile. periods of agitation. continue current mgmt, though pt is refusing meds. 01/05: thought-blocked. denies mental illness or need for medications. offer medications. hearing tomorrow. 01/06: committed and ordered medications at hearing. 06[place]12/[place] [facility] [place], pt was discharged on VPA, zyprexa, haldol. 03/14/20 DC summary reviewed, pt discharged on zyprexa, haldol. pt unable to comprehend result, agitated not to be leaving today. 01/07: copy of court order on unit, will order meds accordingly today. no change in presentation. 01/08: Continue current regimen and plans 01/09: Continue current plans and regimen. Discontinue contingent IM Ativan if Depakote refused 01/10: Continue current regimen and plans. 01/11: DC VPA, start tegretol per pt preference. ativan 2 mg IM for refusal of tegretol. continue haldol PO/IM orders. improved from last week. less agitated, a bit more organized and engaging. 01/12: appears more disorganized again today, trouble engaging. refused PO meds last night but did take tegretol PO this morning. 01/13: continues disorganized, difficulty expressing himself. refusing PO meds since yesterday morning. slept 10 hours last night, however 01/14: intermittently taking meds PO versus IM. improved behavior from prior to med order, but remains floridly psychotic. continue current mgmt. 01/16/2023: No changes to current plan 01/17: more compliant with tegretol in recent days, still getting haldol IM. no change in presentation. continue current mgmt. 01/18: remains psychotic, labile. increase tegretol to 300 mg BID. 01/19: continues more aggressive and labile today. increase haldol to 10 BID with back-up IM of 7.5 mg. 01/20: more calm today,periods of agitation, however, in the past 24H. continue current mgmt. declines to change scheduled haldol to thorazine (proposed by MD in the hope he would in order to spare him the IMs). 01/21 continue tx. 01/22 writing for thorazine at bed- mr x1 and check ekg given other antipsychotics on board 01/23 agreed to ekg today, added 1pm dose of 5mg haldol 01/24: taking meds PO, still suffering from AH, possibly VH. perhaps trending more calm, but clearly still periods of agitation in the past several days. 01/25: labile, paranoid delusions. informed staff he experiences AH, mumbles recently. increase tegretol to 400 BID, make IR formulation as he has been chewing the pills. 01/26: more calm today. continue current mgmt. 01/27: continues more calm. some staff concerned for akathisia due to pacing and number of PRNs taken, but appears to be doing less walking than he had been before, does not appear restless or uncomfortable. continue current mgmt, check tegretol level 2 weeks after dose change (02/08). 01/28: stable presentation. intermittent sleep disturbance. continue current mgmt. 01/29: Continue current management. Benadryl for allergies 01/30: Continue current plan of care. 01/31: continues to ask for lots of PRNs. no change in presentation. 01/28 mild anemia and hyponatremia; trend. tegretol level 10.3. 02/01: series of abnormal and dynamic EKGs; today's WNL. cardiology consult requested for opinion. will start lithium pending cards opinion re EKG series. no change in presentation. 02/02: appreciate cardiology consultation and opinion. echocardiogram ordered. lithium started. appears better able to tolerate longer interaction today. 02/03: improved ability to tolerate social engagements continues. feels lithium has been helpful. akathisia likely. decrease haldol 02/10/10 to 5 BID and add thorazine 25 BID at 0900 and 1300. 02/04: clear uptick in psychotic.manic behavior yesterday after haldol dose decrease. eloped today. increase thorazine to 100/100/200 with PRNS available. 02/05: no concerning behaviors since elopement yesterday. refused PO haldol last night, otherwise med compliant. 02/06: med-compliant, no concerning behaviors. continue current mgmt. 02/07: check BMP along with lithium level. stable presentation. 02/08: CBC/BMP not concerning. lithium 0.6, tegretol 9.0. increase lithium dosing from 600 BID to 600/900 as of tonight. DC haldol entirely out of concerns for akathisia. invega not a great option due to tegretol interaction. start prolixin PO with IM back-up as alternative neuroleptic to haldol. 02/09: Continue current tx plan. 02/10: increase prolixin from 5 BID to 5 TID. otherwise continue current mgmt. 02/11: continue current mgmt. check labs jeferson of 02/13. 02/12: Continue current plan. Check labs in AM. 02/13: Continue current treatment plan. Li level 0.68, CMZ level 8.6 02/14: Continue current regimen and plans 02/15: increase lithium to 750/900. T/C increasing tegretol in near future as well. gradually seems to be improving. 02/16: stable. continue current mgmt. has broached feeling depressed the past couple of days. 02/17: Continue current tx plan. 02/18: check labs in several days. stable, Sx much improved from prior but still clearly psychotic. 02/20: no changes 02/21: continue current mgmt. check labs soon. still psychotic, endorsing . 02/22: no change in presentation. check lithium and tegretol levels tomorrow. 02/23: tegretol 8.3, lithium 0.96. increase tegretol from 400 BID to 400/600 as of tonight. c/o restlessness, concern for akathisia. will review neuroleptics regimen if Sx do not improve in next several days (as might be the case if his restlessness is residual dante). also, AH continue. 02/24: stable. continue current mgmt. assess Sx over next week, then check tegretol level. 02/25: better related, discussed his post-discharge plans. family meeting late next week. continue current regimen, check labs around 03/02. 02/26: Continue plan of care discharge planning 02/27: Patient can not continues much improved states he feels much better without drug use no psychosis. 02/28: +RIS, bizarrely ends interview with MD by just getting up and walking away without a look or a word. increase prolixin 5 TID to 7.5 TID for psychosis. otherwise continue current mgmt. 03/01: continue current mgmt. tired today, stayed in bed. 03/02: tired again, rouses himself to sit up for interview. latency of response, asks MD to repeat question once, but denies AH. continue current mgmt. 03/03: more up and about today. unconvincingly denies AH. continue current mgmt. check labs tonight. 03/04: labs reviewed with pt, that they are reassuring and medication levels are good. tegretol 9.6, lithium 0.76. continue current mgmt. 03/05: Continue current regimen and plans. 03/06: Continue current plans and regimen 03/07: continue current mgmt. mtg btwn SW and pt's family held today. 03/08: Continue current tx plan. 03/09: Patient presents guarded during 1:1. He reports feeling okay today; states he is sleeping well. Isolative. Pt reports he doesn't go to groups because I don't learn anything . Denies SI/HI/VH/AH. Continue current tx plan. 03/10: Patient presents guarded and brief today. He reports feeling good . Pt stated, I don't need anything Denies SI/HI/VH/AH. 03/11: periods of cogency and periods of apparent thought disorganization. denying Sx but appears to still be RIS and distracted. continue current mgmt for now. 03/12 continue same treatment. 03/13 continue same treatment. 03/14: continue current mgmt. plan to streamline medications regimen prior to discharge. T/C prolixin MENDES. 03/15: Continue current treatment plan. 03/16: streamlining meds today. decrease thorazine PRN availability. start prolixin decanoate tomorrow morning, will decrease PO prolixin by about half once the injection is given. continue other medications for now. 03/17: received prolixin DEC 25 mg today. decrease PO prolixin from 7.5 TID to 5 BID, otherwise continue current mgmt. 03/18: Continue current treatment plan. 03/19: continue current mgmt. noted to have hit himself in the thigh twice apparently in frustration, occasionally mumble to himself, and have a minimal outburst at last evening. likely related to transition from PO prolixin to IM decanoate. 03/20: no change in presentation. continue current mgmt. 03/21: stable. continue current mgmt. 03/22: stable. continue current mgmt. next prolixin DEC dose 03/31, DC PO prolixin at that time. 03/23: Continue current tx plan. Patient educated on: diagnosis, medication risk/benefits and therapeutic strategies Informed Consent: understands Reason for continued inpatient stay Substantial Risk for: med/psych decompensation Time Spent With Patient Time: Total time managing care of this patient today _30___ minutes.
[2023-03-23 19:55] VITALS: BP 145/80; PULSE 98; RESP 16; TEMP 36.9; O2SAT 97
[2023-03-23] MEDS: chlorproMAZINE HCl 100 MG TABLET 200 MG PO (20:29)
[2023-03-23] MEDS: carBAMazepine ER 200 MG TAB.ER.12H 600 MG PO (20:30)
[2023-03-23] MEDS: Lithium Carbonate ER 450 MG TABLET.ER 900 MG PO (20:30)
[2023-03-24 07:30] VITALS: BP 114/61; PULSE 87; RESP 14; TEMP 36.7; O2SAT 97
[2023-03-24 08:26] VITALS: BMI 29.5
[2023-03-24] MEDS: fluPHENAZine HCl 5 MG TABLET PO ×2 (08:36→20:42)
[2023-03-24] MEDS: chlorproMAZINE HCl 100 MG TABLET PO ×2 (08:36→14:11)
[2023-03-24] MEDS: Lithium Carbonate ER 450 MG TABLET.ER PO (08:37)
[2023-03-24] MEDS: carBAMazepine 200 MG TABLET 400 MG PO (08:37)
[2023-03-24] MEDS: Benztropine Mesylate 1 MG TABLET PO ×2 (08:37→20:42)
[2023-03-24] MEDS: Lithium Carbonate ER 300 MG TABLET.ER PO (08:37)
--- NOTE | 2023-03-24 09:22 | P.PNPSI_ITS ---
Subjective Subjective Date of Service: 03/24/23 Reason For Visit: Psychosis Subjective Notes: Section 8 Interim History: Reviewed with . Patient reports feeling more energetic today ; stated he does not need anything . Presents calm, pleasant. denies SI/HI/VH/AH. Medication Compliance: Yes Side effects from medications: No Attending Groups: No Review of Systems Review of Systems Constitutional: Reports as per HPI Eyes: Reports as per HPI Reports as per HPI Cardiovascular: Reports as per HPI Respiratory: Reports as per HPI Gastrointestinal: Reports as per HPI Genitourinary: Reports as per HPI Musculoskeletal: Reports as per HPI Skin/Breast: Reports as per HPI Reports as per HPI Psychiatric: Reports as per HPI Endocrine: Reports as per HPI Hematologic/Lymphatic: Reports as per HPI Allergic/Immunologic: Reports as per HPI Mental Status Exam Mental Status Exam Narrative: Pt is alert and oriented; behavior is guarded and calm; dressed in casual attire; mood is described as good ; eye contact appropriate; Speech is normal rate, volume and prosody and not pressured; thought process is organized; otherwise pertinent to relevant topics and without any delusional content, paranoid ideations or grandiosity; denies SI/HI/AH/VH. Behavior Comments: can be irritable in pm Diagnostics Vital Signs (24Hr): Vital Signs - 24 hr 03/23/23 19:55 03/24/23 07:30 Temperature 98.4 F 98.1 F Pulse Rate 98 87 Respiratory Rate 16 14 Blood Pressure 145/80 H 114/61 Pulse Oximetry 97 97 Oxygen Delivery Method Room Air Room Air BMI result Body Mass Index 29.5 Labs 03/03/23 20:10 03/03/23 20:10 Medications Medications Current Medications Benztropine Mesylate (Benztropine Mesylate 1 Mg Tablet) 1 mg PO BID [facility] Last Admin: 03/24/23 08:37 Dose: 1 mg Carbamazepine (Carbamazepine 200 Mg Tablet) 400 mg PO DAILY [facility] Last Admin: 03/24/23 08:37 Dose: 400 mg Carbamazepine (Carbamazepine Er 200 Mg Tab.Er.12h) 600 mg PO BEDTIME [facility] Last Admin: 03/23/23 20:30 Dose: 600 mg Chlorpromazine HCl (Chlorpromazine Hcl 100 Mg Tablet) 200 mg PO BEDTIME [facility] Last Admin: 03/23/23 20:29 Dose: 200 mg Chlorpromazine HCl (Chlorpromazine Hcl 100 Mg Tablet) 100 mg PO BID@0900,1300 [facility] Last Admin: 03/24/23 08:36 Dose: 100 mg Chlorpromazine HCl (Chlorpromazine Hcl 100 Mg Tablet) 100 mg PO DAILY PRN PRN Reason: agitation/anxiety Diphenhydramine HCl (Diphenhydramine Hcl 25 Mg Capsule) 50 mg PO Q6H PRN PRN Reason: Allergic Symptoms Last Admin: 03/22/23 20:24 Dose: 50 mg Fluphenazine Decanoate (Fluphenazine Decanoate 25 Mg/Ml 5 Ml Vial) 25 mg IM Q14D@0900 [facility] Last Admin: 03/17/23 09:34 Dose: 25 mg Fluphenazine HCl (Fluphenazine Hcl 2.5 Mg/Ml 10 Ml Vial) 5 mg IM TID PRN PRN Reason: refusal of PO fluphenazine Fluphenazine HCl (Fluphenazine Hcl 5 Mg Tablet) 5 mg PO BID [facility] Last Admin: 03/24/23 08:36 Dose: 5 mg [place] Carbonate ([place] Carbonate Er 450 Mg Tablet.Er) 900 mg PO BEDTIME [facility] Last Admin: 03/23/23 20:30 Dose: 900 mg [place] Carbonate ([place] Carbonate Er 300 Mg Tablet.Er) 300 mg PO DAILY [facility] Last Admin: 03/24/23 08:37 Dose: 300 mg [place] Carbonate ([place] Carbonate Er 450 Mg Tablet.Er) 450 mg PO DAILY [facility] Last Admin: 03/24/23 08:37 Dose: 450 mg Multi-Ingred Cream/Lotion/Oil/Oint (Mineral Oil/Petrolatum,White 106 Gm Tube) 1 appl TOPICAL BID [facility]; Protocol Last Admin: 03/24/23 08:37 Dose: Not Given Allergies Allergies Allergy/AdvReac Type Severity Reaction Status Date / Time morphine [MORPHINE] AdvReac Unknown NAUSEA Verified 12/10/22 19:56 Assessment & Plan Assessment & Plan (1) Nonspecific ST-T wave electrocardiographic changes: Status: Acute Code(s): R94.31 - Abnormal electrocardiogram [ECG] [EKG] (2) Cocaine use disorder: Status: Acute Code(s): F14.10 - Cocaine abuse, uncomplicated (3) Schizoaffective disorder, bipolar type: Status: Acute Code(s): F25.0 - Schizoaffective disorder, bipolar type (4) Opioid use disorder: Status: Acute Code(s): F11.90 - Opioid use, unspecified, uncomplicated Plan 12/24: attempt to give anti-psychotics. comfort meds for opioid and cocaine withdrawal. 12/25: refusing medications. period of agitation last night slamming doors and yelling (presumably @AH). continue current mgmt. 12/26: refusing meds. binging and purging. floridly psychotic. 12/27: had meds last night for sleep, per his request. schedule all haldol tonight with ativan and cogentin. a bit more interactive today, remains delayed and distracted. no binging/purging behaviors or agitated behaviors described by RN report today. 12/28: refused meds last night. Today asks for meds for sx mgt- aggressive today- threw two coffee cups. Begin Depakote 250 mg bid. 12/29: got multiple meds last NOC and overnight per his request. slept 2 hours. refusing meds this morning. commitment paperwork completed. 3-day notice expires tomorrow. c/o opioid craving, asked for methadone. methadone 30 mg daily started today. 12/30: filed for commitment today. haldol and ativan per his request last night. appears in disbelief that he will not be discharged today. 12/31: demanding to leave, getting agitated, banging on nursing station, slamming doors in his room. given IMs x 2, haldol 10 ativan 2 benadryl 50 for first and thorazine 100 for second. 01/01: Remains unpredictable and irritable. Refusing scheduled medications. Section 7/ filed. 01/02: Continue current management. 01/03: refusing meds. irritable, labile. periods of agitation. continue current mgmt, awaiting hearing for . 01/04: refusing meds. irritable, labile. periods of agitation. continue current mgmt, though pt is refusing meds. 01/05: thought-blocked. denies mental illness or need for medications. offer medications. hearing tomorrow. 01/06: committed and ordered medications at hearing. 06[place]12/20 [facility] [place] pt was discharged on VPA, zyprexa, haldol. 03/14/20 [place] summary reviewed, pt discharged on zyprexa, haldol. pt unable to comprehend result, agitated not to be leaving today. 01/07: copy of court order on unit, will order meds accordingly today. no change in presentation. 01/08: Continue current regimen and plans 01/09: Continue current plans and regimen. Discontinue contingent IM Ativan if Depakote refused 01/10: Continue current regimen and plans. 01/11: DC VPA, start tegretol per pt preference. ativan 2 mg IM for refusal of tegretol. continue haldol PO/IM orders. improved from last week. less agitated, a bit more organized and engaging. 01/12: appears more disorganized again today, trouble engaging. refused PO meds last night but did take tegretol PO this morning. 01/13: continues disorganized, difficulty expressing himself. refusing PO meds since yesterday morning. slept 10 hours last night, however 01/14: intermittently taking meds PO versus IM. improved behavior from prior to med order, but remains floridly psychotic. continue current mgmt. 01/16/2023: No changes to current plan 01/17: more compliant with tegretol in recent days, still getting haldol IM. no change in presentation. continue current mgmt. 01/18: remains psychotic, labile. increase tegretol to 300 mg BID. 01/19: continues more aggressive and labile today. increase haldol to 10 BID with back-up IM of 7.5 mg. 01/20: more calm today,periods of agitation, however, in the past 24H. continue current mgmt. declines to change scheduled haldol to thorazine (proposed by in the hope he would in order to spare him the IMs). 01/21 continue tx. 01/22 writing for thorazine at bed- mr x1 and check ekg given other antipsychotics on board 01/23 agreed to ekg today, added 1pm dose of 5mg haldol 01/24: taking meds PO, still suffering from AH, possibly VH. perhaps trending more calm, but clearly still periods of agitation in the past several days. 01/25: labile, paranoid delusions. informed staff he experiences AH, mumbles recently. increase tegretol to 400 BID, make IR formulation as he has been chewing the pills. 01/26: more calm today. continue current mgmt. 01/27: continues more calm. some staff concerned for akathisia due to pacing and number of PRNs taken, but appears to be doing less walking than he had been before, does not appear restless or uncomfortable. continue current mgmt, check tegretol level 2 weeks after dose change (02/08). 01/28: stable presentation. intermittent sleep disturbance. continue current mgmt. 01/29: Continue current management. Benadryl for allergies 01/30: Continue current plan of care. 01/31: continues to ask for lots of PRNs. no change in presentation. 01/28 mild anemia and hyponatremia; trend. tegretol level 10.3. 02/01: series of abnormal and dynamic EKGs; today's WNL. cardiology consult requested for opinion. will start lithium pending cards opinion re EKG series. no change in presentation. 02/02: appreciate cardiology consultation and opinion. echocardiogram ordered. lithium started. appears better able to tolerate longer interaction today. 02/03: improved ability to tolerate social engagements continues. feels lithium has been helpful. akathisia likely. decrease haldol 02/10/10 to 5 BID and add thorazine 25 BID at 0900 and 1300. 02/04: clear uptick in psychotic.manic behavior yesterday after haldol dose decrease. eloped today. increase thorazine to 100/100/200 with PRNS available. 02/05: no concerning behaviors since elopement yesterday. refused PO haldol last night, otherwise med compliant. 02/06: med-compliant, no concerning behaviors. continue current mgmt. 02/07: check BMP along with lithium level. stable presentation. 02/08: CBC/BMP not concerning. lithium 0.6, tegretol 9.0. increase lithium dosing from 600 BID to 600/900 as of tonight. DC haldol entirely out of concerns for akathisia. invega not a great option due to tegretol interaction. start prolixin PO with IM back-up as alternative neuroleptic to haldol. 02/09: Continue current tx plan. 02/10: increase prolixin from 5 BID to 5 TID. otherwise continue current mgmt. 02/11: continue current mgmt. check labs jeferson of 02/13. 02/12: Continue current plan. Check labs in AM. 02/13: Continue current treatment plan. Li level 0.68, CMZ level 8.6 02/14: Continue current regimen and plans 02/15: increase lithium to 750/900. T/C increasing tegretol in near future as well. gradually seems to be improving. 02/16: stable. continue current mgmt. has broached feeling depressed the past couple of days. 02/17: Continue current tx plan. 02/18: check labs in several days. stable, Sx much improved from prior but still clearly psychotic. 02/20: no changes 02/21: continue current mgmt. check labs soon. still psychotic, endorsing AH. 02/22: no change in presentation. check lithium and tegretol levels tomorrow. 02/23: tegretol 8.3, lithium 0.96. increase tegretol from 400 BID to 400/600 as of tonight. c/o restlessness, concern for akathisia. will review neuroleptics regimen if Sx do not improve in next several days (as might be the case if his restlessness is residual dante). also, AH continue. 02/24: stable. continue current mgmt. assess Sx over next week, then check tegretol level. 02/25: better related, discussed his post-discharge plans. family meeting late next week. continue current regimen, check labs around 03/02. 02/26: Continue plan of care discharge planning 02/27: Patient can not continues much improved states he feels much better without drug use no psychosis. 02/28: +RIS, bizarrely ends interview with MD by just getting up and walking away without a look or a word. increase prolixin 5 TID to 7.5 TID for psychosis. otherwise continue current mgmt. 03/01: continue current mgmt. tired today, stayed in bed. 03/02: tired again, rouses himself to sit up for interview. latency of response, asks MD to repeat question once, but denies AH. continue current mgmt. 03/03: more up and about today. unconvincingly denies AH. continue current mgmt. check labs tonight. 03/04: labs reviewed with pt, that they are reassuring and medication levels are good. tegretol 9.6, lithium 0.76. continue current mgmt. 03/05: Continue current regimen and plans. 03/06: Continue current plans and regimen 03/07: continue current mgmt. mtg btwn RADHA and pt's family held today. 03/08: Continue current tx plan. 03/09: Patient presents guarded during 1:1. He reports feeling okay today; states he is sleeping well. Isolative. Pt reports he doesn't go to groups because I don't learn anything . Denies SI/HI/VH/AH. Continue current tx plan. 03/10: Patient presents guarded and brief today. He reports feeling good . Pt stated, I don't need anything Denies SI/HI/VH/AH. 03/11: periods of cogency and periods of apparent thought disorganization. denying Sx but appears to still be RIS and distracted. continue current mgmt for now. 03/12 continue same treatment. 03/13 continue same treatment. 03/14: continue current mgmt. plan to streamline medications regimen prior to discharge. T/C prolixin MENDES. 03/15: Continue current treatment plan. 03/16: streamlining meds today. decrease thorazine PRN availability. start prolixin decanoate tomorrow morning, will decrease PO prolixin by about half once the injection is given. continue other medications for now. 03/17: received prolixin DEC 25 mg today. decrease PO prolixin from 7.5 TID to 5 BID, otherwise continue current mgmt. 03/18: Continue current treatment plan. 03/19: continue current mgmt. noted to have hit himself in the thigh twice apparently in frustration, occasionally mumble to himself, and have a minimal outburst at last evening. likely related to transition from PO prolixin to IM decanoate. 03/20: no change in presentation. continue current mgmt. 03/21: stable. continue current mgmt. 03/22: stable. continue current mgmt. next prolixin DEC dose 03/31, DC PO prolixin at that time. 03/23: Continue current tx plan. 03/24: Patient reports feeling more energetic today ; stated he does not need anything . Presents calm, pleasant. denies SI/HI/VH/AH. Continue current tx plan. Patient educated on: diagnosis, medication risk/benefits and therapeutic strategies Informed Consent: understands Reason for continued inpatient stay Substantial Risk for: med/psych decompensation Time Spent With Patient Time: Total time managing care of this patient today _30___ minutes.
[2023-03-24 20:15] VITALS: BP 119/62; PULSE 75; RESP 18; TEMP 37.3; O2SAT 98
[2023-03-24] MEDS: Lithium Carbonate ER 450 MG TABLET.ER 900 MG PO (20:41)
[2023-03-24] MEDS: carBAMazepine ER 200 MG TAB.ER.12H 600 MG PO (20:41)
[2023-03-24] MEDS: chlorproMAZINE HCl 100 MG TABLET 200 MG PO (20:42)
[2023-03-24] MEDS: diphenhydrAMINE HCL 25 MG CAPSULE 50 MG PO (20:42)
[2023-03-25 08:08] VITALS: BP 112/61; PULSE 72; RESP 18; TEMP 36.8; O2SAT 97
[2023-03-25] MEDS: carBAMazepine 200 MG TABLET 400 MG PO (08:39)
[2023-03-25] MEDS: chlorproMAZINE HCl 100 MG TABLET PO ×2 (08:39→13:15)
[2023-03-25] MEDS: fluPHENAZine HCl 5 MG TABLET PO ×2 (08:39→20:48)
[2023-03-25] MEDS: Benztropine Mesylate 1 MG TABLET PO ×2 (08:40→20:48)
[2023-03-25] MEDS: Lithium Carbonate ER 450 MG TABLET.ER PO (08:40)
[2023-03-25] MEDS: Lithium Carbonate ER 300 MG TABLET.ER PO (08:40)
--- NOTE | 2023-03-25 09:08 | HO.PSYCHPN ---
Subjective Subjective Date of Service: 03/25/23 Reason For Visit: Psychosis Subjective Notes: Section 8 Interim History: Reviewed with . Patient guarded, brief, calm today. Isolative. reports feeling good ; stated he does not need anything . denies SI/HI/VH/AH. Medication Compliance: Yes Side effects from medications: No Attending Groups: No Review of Systems Review of Systems Constitutional: Reports as per HPI Eyes: Reports as per HPI Reports as per HPI Cardiovascular: Reports as per HPI Respiratory: Reports as per HPI Gastrointestinal: Reports as per HPI Genitourinary: Reports as per HPI Musculoskeletal: Reports as per HPI Skin/Breast: Reports as per HPI Reports as per HPI Psychiatric: Reports as per HPI Endocrine: Reports as per HPI Hematologic/Lymphatic: Reports as per HPI Allergic/Immunologic: Reports as per HPI Mental Status Exam Mental Status Exam Narrative: Pt is alert and oriented; behavior is guarded and calm; dressed in casual attire; mood is described as good ; eye contact appropriate; Speech is normal rate, volume and prosody and not pressured; thought process is organized; otherwise pertinent to relevant topics and without any delusional content, paranoid ideations or grandiosity; denies SI/HI/AH/VH. Behavior Comments: can be irritable in pm Diagnostics Vital Signs (24Hr): Vital Signs - 24 hr 03/24/23 20:15 03/25/23 08:08 Temperature 99.1 F 98.2 F Pulse Rate 75 72 Respiratory Rate 18 18 Blood Pressure 119/62 112/61 Pulse Oximetry 98 97 Oxygen Delivery Method Room Air Room Air BMI result Body Mass Index 29.5 Labs 03/03/23 20:10 03/03/23 20:10 Medications Medications Current Medications Benztropine Mesylate (Benztropine Mesylate 1 Mg Tablet) 1 mg PO BID [facility] Last Admin: 03/25/23 08:40 Dose: 1 mg Carbamazepine (Carbamazepine 200 Mg Tablet) 400 mg PO DAILY [facility] Last Admin: 03/25/23 08:39 Dose: 400 mg Carbamazepine (Carbamazepine Er 200 Mg Tab.Er.12h) 600 mg PO BEDTIME [facility] Last Admin: 03/24/23 20:41 Dose: 600 mg Chlorpromazine HCl (Chlorpromazine Hcl 100 Mg Tablet) 200 mg PO BEDTIME [facility] Last Admin: 03/24/23 20:42 Dose: 200 mg Chlorpromazine HCl (Chlorpromazine Hcl 100 Mg Tablet) 100 mg PO BID@0900,1300 [facility] Last Admin: 03/25/23 08:39 Dose: 100 mg Chlorpromazine HCl (Chlorpromazine Hcl 100 Mg Tablet) 100 mg PO DAILY PRN PRN Reason: agitation/anxiety Diphenhydramine HCl (Diphenhydramine Hcl 25 Mg Capsule) 50 mg PO Q6H PRN PRN Reason: Allergic Symptoms Last Admin: 03/24/23 20:42 Dose: 50 mg Fluphenazine Decanoate (Fluphenazine Decanoate 25 Mg/Ml 5 Ml Vial) 25 mg IM Q14D@0900 [facility] Last Admin: 03/17/23 09:34 Dose: 25 mg Fluphenazine HCl (Fluphenazine Hcl 2.5 Mg/Ml 10 Ml Vial) 5 mg IM TID PRN PRN Reason: refusal of PO fluphenazine Fluphenazine HCl (Fluphenazine Hcl 5 Mg Tablet) 5 mg PO BID [facility] Last Admin: 03/25/23 08:39 Dose: 5 mg [place] Carbonate ([place] Carbonate Er 450 Mg Tablet.Er) 900 mg PO BEDTIME [facility] Last Admin: 03/24/23 20:41 Dose: 900 mg [place] Carbonate ([place] Carbonate Er 300 Mg Tablet.Er) 300 mg PO DAILY [facility] Last Admin: 03/25/23 08:40 Dose: 300 mg [place] Carbonate ([place] Carbonate Er 450 Mg Tablet.Er) 450 mg PO DAILY [facility] Last Admin: 03/25/23 08:40 Dose: 450 mg Multi-Ingred Cream/Lotion/Oil/Oint (Mineral Oil/Petrolatum,White 106 Gm Tube) 1 appl TOPICAL BID [facility]; Protocol Last Admin: 03/25/23 08:40 Dose: Not Given Allergies Allergies Allergy/AdvReac Type Severity Reaction Status Date / Time morphine [MORPHINE] AdvReac Unknown NAUSEA Verified 12/10/22 19:56 Assessment & Plan Assessment & Plan (1) Nonspecific ST-T wave electrocardiographic changes: Status: Acute Code(s): R94.31 - Abnormal electrocardiogram [ECG] [EKG] (2) Cocaine use disorder: Status: Acute Code(s): F14.10 - Cocaine abuse, uncomplicated (3) Schizoaffective disorder, bipolar type: Status: Acute Code(s): F25.0 - Schizoaffective disorder, bipolar type (4) Opioid use disorder: Status: Acute Code(s): F11.90 - Opioid use, unspecified, uncomplicated Plan 12/24: attempt to give anti-psychotics. comfort meds for opioid and cocaine withdrawal. 12/25: refusing medications. period of agitation last night slamming doors and yelling (presumably @AH). continue current mgmt. 12/26: refusing meds. binging and purging. floridly psychotic. 12/27: had meds last night for sleep, per his request. schedule all haldol tonight with ativan and cogentin. a bit more interactive today, remains delayed and distracted. no binging/purging behaviors or agitated behaviors described by RN report today. 12/28: refused meds last night. Today asks for meds for sx mgt- aggressive today-threw two coffee cups. Begin Depakote 250 mg bid. 12/29: got multiple meds last NOC and overnight per his request. slept 2 hours. refusing meds this morning. commitment paperwork completed. 3-day notice expires tomorrow. c/o opioid craving, asked for methadone. methadone 30 mg daily started today. 12/30: filed for commitment today. haldol and ativan per his request last night. appears in disbelief that he will not be discharged today. 12/31: demanding to leave, getting agitated, banging on nursing station, slamming doors in his room. given IMs x 2, haldol 10 ativan 2 benadryl 50 for first and thorazine 100 for second. 01/01: Remains unpredictable and irritable. Refusing scheduled medications. Section 7/ filed. 01/02: Continue current management. 01/03: refusing meds. irritable, labile. periods of agitation. continue current mgmt, awaiting hearing for . 01/04: refusing meds. irritable, labile. periods of agitation. continue current mgmt, though pt is refusing meds. 01/05: thought-blocked. denies mental illness or need for medications. offer medications. hearing tomorrow. 01/06: committed and ordered medications at hearing. 06/12/20 [facility] DC summary reviewd, pt was discharged on VPA, zyprexa, haldol. 11/6/20 DC summary reviewed, pt discharged on zyprexa, haldol. pt unable to comprehend result, agitated not to be leaving today. 01/07: copy of court order on unit, will order meds accordingly today. no change in presentation. 01/08: Continue current regimen and plans 01/09: Continue current plans and regimen. Discontinue contingent IM Ativan if Depakote refused 01/10: Continue current regimen and plans. 01/11: DC VPA, start tegretol per pt preference. ativan 2 mg IM for refusal of tegretol. continue haldol PO/IM orders. improved from last week. less agitated, a bit more organized and engaging. 01/12: appears more disorganized again today, trouble engaging. refused PO meds last night but did take tegretol PO this morning. 01/13: continues disorganized, difficulty expressing himself. refusing PO meds since yesterday morning. slept 10 hours last night, however 01/14: intermittently taking meds PO versus IM. improved behavior from prior to med order, but remains floridly psychotic. continue current mgmt. 01/16/2023: No changes to current plan 01/17: more compliant with tegretol in recent days, still getting haldol IM. no change in presentation. continue current mgmt. 01/18: remains psychotic, labile. increase tegretol to 300 mg BID. 01/19: continues more aggressive and labile today. increase haldol to 10 BID with back-up IM of 7.5 mg. 01/20: more calm today,periods of agitation, however, in the past 24H. continue current mgmt. declines to change scheduled haldol to thorazine (proposed by in the hope he would in order to spare him the IMs). 01/21 continue tx. 01/22 writing for thorazine at bed- mr x1 and check ekg given other antipsychotics on board 01/23 agreed to ekg today, added 1pm dose of 5mg haldol 01/24: taking meds PO, still suffering from AH, possibly VH. perhaps trending more calm, but clearly still periods of agitation in the past several days. 01/25: labile, paranoid delusions. informed staff he experiences AH, mumbles recently. increase tegretol to 400 BID, make IR formulation as he has been chewing the pills. 01/26: more calm today. continue current mgmt. 01/27: continues more calm. some staff concerned for akathisia due to pacing and number of PRNs taken, but appears to be doing less walking than he had been before, does not appear restless or uncomfortable. continue current mgmt, check tegretol level 2 weeks after dose change (02/08). 01/28: stable presentation. intermittent sleep disturbance. continue current mgmt. 01/29: Continue current management. Benadryl for allergies 01/30: Continue current plan of care. 01/31: continues to ask for lots of PRNs. no change in presentation. 01/28 mild anemia and hyponatremia; trend. tegretol level 10.3. 02/01: series of abnormal and dynamic EKGs; today's WNL. cardiology consult requested for opinion. will start lithium pending cards opinion re EKG series. no change in presentation. 02/02: appreciate cardiology consultation and opinion. echocardiogram ordered. lithium started. appears better able to tolerate longer interaction today. 02/03: improved ability to tolerate social engagements continues. feels lithium has been helpful. akathisia likely. decrease haldol 02/10/10 to 5 BID and add thorazine 25 BID at 0900 and 1300. 02/04: clear uptick in psychotic.manic behavior yesterday after haldol dose decrease. eloped today. increase thorazine to 100/100/200 with PRNS available. 02/05: no concerning behaviors since elopement yesterday. refused PO haldol last night, otherwise med compliant. 02/06: med-compliant, no concerning behaviors. continue current mgmt. 02/07: check BMP along with lithium level. stable presentation. 02/08: CBC/BMP not concerning. lithium 0.6, tegretol 9.0. increase lithium dosing from 600 BID to 600/900 as of tonight. DC haldol entirely out of concerns for akathisia. invega not a great option due to tegretol interaction. start prolixin PO with IM back-up as alternative neuroleptic to haldol. 02/09: Continue current tx plan. 02/10: increase prolixin from 5 BID to 5 TID. otherwise continue current mgmt. 02/11: continue current mgmt. check labs jeferson of 02/13. 02/12: Continue current plan. Check labs in AM. 02/13: Continue current treatment plan. Li level 0.68, CMZ level 8.6 02/14: Continue current regimen and plans 02/15: increase lithium to 750/900. T/C increasing tegretol in near future as well. gradually seems to be improving. 02/16: stable. continue current mgmt. has broached feeling depressed the past couple of days. 02/17: Continue current tx plan. 02/18: check labs in several days. stable, Sx much improved from prior but still clearly psychotic. 02/20: no changes 02/21: continue current mgmt. check labs soon. still psychotic, endorsing AH. 02/22: no change in presentation. check lithium and tegretol levels tomorrow. 02/23: tegretol 8.3, lithium 0.96. increase tegretol from 400 BID to 400/600 as of tonight. c/o restlessness, concern for akathisia. will review neuroleptics regimen if Sx do not improve in next several days (as might be the case if his restlessness is residual dante). also, AH continue. 02/24: stable. continue current mgmt. assess Sx over next week, then check tegretol level. 02/25: better related, discussed his post-discharge plans. family meeting late next week. continue current regimen, check labs around 03/02. 02/26: Continue plan of care discharge planning 02/27: Patient can not continues much improved states he feels much better without drug use no psychosis. 02/28: +RIS, bizarrely ends interview with MD by just getting up and walking away without a look or a word. increase prolixin 5 TID to 7.5 TID for psychosis. otherwise continue current mgmt. 03/01: continue current mgmt. tired today, stayed in bed. 03/02: tired again, rouses himself to sit up for interview. latency of response, asks MD to repeat question once, but denies AH. continue current mgmt. 03/03: more up and about today. unconvincingly denies AH. continue current mgmt. check labs tonight. 03/04: labs reviewed with pt, that they are reassuring and medication levels are good. tegretol 9.6, lithium 0.76. continue current mgmt. 03/05: Continue current regimen and plans. 03/06: Continue current plans and regimen 03/07: continue current mgmt. mtg btwn SW and pt's family held today. 03/08: Continue current tx plan. 03/09: Patient presents guarded during 1:1. He reports feeling okay today; states he is sleeping well. Isolative. Pt reports he doesn't go to groups because I don't learn anything . Denies SI/HI/VH/AH. Continue current tx plan. 03/10: Patient presents guarded and brief today. He reports feeling good . Pt stated, I don't need anything Denies SI/HI/VH/AH. 03/11: periods of cogency and periods of apparent thought disorganization. denying Sx but appears to still be RIS and distracted. continue current mgmt for now. 03/12 continue same treatment. 03/13 continue same treatment. 03/14: continue current mgmt. plan to streamline medications regimen prior to discharge. T/C prolixin MENDES. 03/15: Continue current treatment plan. 03/16: streamlining meds today. decrease thorazine PRN availability. start prolixin decanoate tomorrow morning, will decrease PO prolixin by about half once the injection is given. continue other medications for now. 03/17: received prolixin DEC 25 mg today. decrease PO prolixin from 7.5 TID to 5 BID, otherwise continue current mgmt. 03/18: Continue current treatment plan. 03/19: continue current mgmt. noted to have hit himself in the thigh twice apparently in frustration, occasionally mumble to himself, and have a minimal outburst at last evening. likely related to transition from PO prolixin to IM decanoate. 03/20: no change in presentation. continue current mgmt. 03/21: stable. continue current mgmt. 03/22: stable. continue current mgmt. next prolixin DEC dose 03/31, DC PO prolixin at that time. 03/23: Continue current tx plan. 03/24: Patient reports feeling more energetic today ; stated he does not need anything . Presents calm, pleasant. denies SI/HI/VH/AH. Continue current tx plan. 03/25: Continue current tx plan. Patient educated on: medication risk/benefits Informed Consent: understands Reason for continued inpatient stay Substantial Risk for: med/psych decompensation Time Spent With Patient Time: Total time managing care of this patient today _20___ minutes.
[2023-03-25 13:00] LABS: Lithium 1.08 mmol/L (0.60-1.20)
[2023-03-25 13:16] LABS: Blood Urea Nitrogen 11 mg/dL (9-16); Creatinine Clr Calc Pharmacy 144.3; Estimated Glomerular Filt Rate > 60
[2023-03-25 13:33] LABS: Anion Gap 8 (12-20); Carbon Dioxide 28 mmol/L (22-29); Chloride 106 mmol/L (96-108); Potassium 4.4 mmol/L (3.3-5.1); Sodium 138 mmol/L (135-145); TSH reflex Free T4 5.07 uIU/mL (0.32-4.0)
[2023-03-25 15:04] LABS: Free T4 (Free Thyroxine) 0.66 ng/dL (0.71-1.85)
[2023-03-25] MEDS: diphenhydrAMINE HCL 25 MG CAPSULE 50 MG PO (19:10)
[2023-03-25 19:55] VITALS: BP 138/94; PULSE 76; RESP 14; TEMP 36.4; O2SAT 99
[2023-03-25] MEDS: Lithium Carbonate ER 450 MG TABLET.ER 900 MG PO (20:48)
[2023-03-25] MEDS: carBAMazepine ER 200 MG TAB.ER.12H 600 MG PO (20:48)
[2023-03-25] MEDS: chlorproMAZINE HCl 100 MG TABLET 200 MG PO (20:48)
[2023-03-26] MEDS: fluPHENAZine HCl 5 MG TABLET PO ×2 (08:42→20:50)
[2023-03-26] MEDS: Lithium Carbonate ER 450 MG TABLET.ER PO (08:43)
[2023-03-26] MEDS: chlorproMAZINE HCl 100 MG TABLET PO ×2 (08:43→13:21)
[2023-03-26] MEDS: carBAMazepine 200 MG TABLET 400 MG PO (08:43)
[2023-03-26] MEDS: Benztropine Mesylate 1 MG TABLET PO ×2 (08:43→20:49)
[2023-03-26] MEDS: Lithium Carbonate ER 300 MG TABLET.ER PO (08:44)
[2023-03-26 09:09] VITALS: BP 112/58; PULSE 62; RESP 20; TEMP 36.8; O2SAT 98
--- NOTE | 2023-03-26 17:26 | P.PNPSI_ITS ---
Subjective Subjective Date of Service: 03/26/23 Reason For Visit: Psychosis Interim History: Reviewed with RN. Patient guarded, brief, calm today. Isolative. reports feeling good ; stated he does not need anything . denies SI/HI/VH/AH. Review of Systems Review of Systems Yes all other systems are reviewed and are negative and Unobtainable due to mental status Constitutional: Reports as per HPI Eyes: Reports as per HPI Reports as per HPI Cardiovascular: Reports as per HPI Respiratory: Reports as per HPI Gastrointestinal: Reports as per HPI Genitourinary: Reports as per HPI Musculoskeletal: Reports as per HPI Skin/Breast: Reports as per HPI Reports as per HPI Psychiatric: Reports as per HPI Endocrine: Reports as per HPI Hematologic/Lymphatic: Reports as per HPI Allergic/Immunologic: Reports as per HPI Mental Status Exam Mental Status Exam Narrative: Pt is alert and oriented; behavior is guarded and calm; dressed in casual attire; mood is described as good ; eye contact appropriate; Speech is normal rate, volume and prosody and not pressured; thought process is organized; otherwise pertinent to relevant topics and without any delusional content, paranoid ideations or grandiosity; denies SI/HI/AH/VH. Patient Appearance: Well Grooomed and Appropriate Patient Orientation: Person and Situation Level of Consciousness: Awake and Appropriate Patient Behavior: Guarded and Cooperative Behavior Comments: can be irritable in pm Mood Description: Withdrawn Affect Description: Constricted Patient Cognition Impaired: Yes Ability to Follow Directions: Good Speech Pattern: Clear Memory Description: Remote Impaired Diagnostics Vital Signs (24Hr): Vital Signs - 24 hr 03/25/23 19:55 03/26/23 09:09 Temperature 97.5 F 98.2 F Pulse Rate 76 62 Respiratory Rate 14 20 Blood Pressure 138/94 H 112/58 L Pulse Oximetry 99 98 Oxygen Delivery Method Room Air Room Air BMI result Body Mass Index 29.5 Labs 03/03/23 20:10 03/25/23 12:35 Labs: Laboratory Results - last 48 hr 03/25/23 12:35 Sodium 138 Potassium 4.4 Chloride 106 Carbon Dioxide 28 Anion Gap 8 L BUN 11 Creatinine 0.90 Estim Creat Clear Calc 144.3 Estimated GFR > 60 TSH 5.07 H Free T4 0.66 L [place] 1.08 Medications Medications Current Medications Benztropine Mesylate (Benztropine Mesylate 1 Mg Tablet) 1 mg PO BID [facility] Last Admin: 03/26/23 08:43 Dose: 1 mg Carbamazepine (Carbamazepine 200 Mg Tablet) 400 mg PO DAILY [facility] Last Admin: 03/26/23 08:43 Dose: 400 mg Carbamazepine (Carbamazepine Er 200 Mg Tab.Er.12h) 600 mg PO BEDTIME [facility] Last Admin: 03/25/23 20:48 Dose: 600 mg Chlorpromazine HCl (Chlorpromazine Hcl 100 Mg Tablet) 200 mg PO BEDTIME [facility] Last Admin: 03/25/23 20:48 Dose: 200 mg Chlorpromazine HCl (Chlorpromazine Hcl 100 Mg Tablet) 100 mg PO BID@0900,1300 [facility] Last Admin: 03/26/23 13:21 Dose: 100 mg Chlorpromazine HCl (Chlorpromazine Hcl 100 Mg Tablet) 100 mg PO DAILY PRN PRN Reason: agitation/anxiety Diphenhydramine HCl (Diphenhydramine Hcl 25 Mg Capsule) 50 mg PO Q6H PRN PRN Reason: Allergic Symptoms Last Admin: 03/25/23 19:10 Dose: 50 mg Fluphenazine Decanoate (Fluphenazine Decanoate 25 Mg/Ml 5 Ml Vial) 25 mg IM Q14D@0900 [facility] Last Admin: 03/17/23 09:34 Dose: 25 mg Fluphenazine HCl (Fluphenazine Hcl 2.5 Mg/Ml 10 Ml Vial) 5 mg IM TID PRN PRN Reason: refusal of PO fluphenazine Fluphenazine HCl (Fluphenazine Hcl 5 Mg Tablet) 5 mg PO BID [facility] Last Admin: 03/26/23 08:42 Dose: 5 mg [place] Carbonate ([place] Carbonate Er 450 Mg Tablet.Er) 900 mg PO BEDTIME [facility] Last Admin: 03/25/23 20:48 Dose: 900 mg [place] Carbonate ([place] Carbonate Er 300 Mg Tablet.Er) 300 mg PO DAILY [facility] Last Admin: 03/26/23 08:44 Dose: 300 mg [place] Carbonate ([place] Carbonate Er 450 Mg Tablet.Er) 450 mg PO DAILY [facility] Last Admin: 03/26/23 08:43 Dose: 450 mg Multi-Ingred Cream/Lotion/Oil/Oint (Mineral Oil/Petrolatum,White 106 Gm Tube) 1 appl TOPICAL BID [facility]; Protocol Last Admin: 03/26/23 08:45 Dose: Not Given Allergies Allergies Allergy/AdvReac Type Severity Reaction Status Date / Time morphine [MORPHINE] AdvReac Unknown NAUSEA Verified 12/10/22 19:56 Assessment & Plan Assessment & Plan (1) Nonspecific ST-T wave electrocardiographic changes: Status: Acute Code(s): R94.31 - Abnormal electrocardiogram [ECG] [EKG] (2) Cocaine use disorder: Status: Acute Code(s): F14.10 - Cocaine abuse, uncomplicated (3) Schizoaffective disorder, bipolar type: Status: Acute Code(s): F25.0 - Schizoaffective disorder, bipolar type (4) Opioid use disorder: Status: Acute Code(s): F11.90 - Opioid use, unspecified, uncomplicated Plan 12/24: attempt to give anti-psychotics. comfort meds for opioid and cocaine withdrawal. 12/25: refusing medications. period of agitation last night slamming doors and yelling (presumably @). continue current mgmt. 12/26: refusing meds. binging and purging. floridly psychotic. 12/27: had meds last night for sleep, per his request. schedule all haldol tonight with ativan and cogentin. a bit more interactive today, remains delayed and distracted. no binging/purging behaviors or agitated behaviors described by RN report today. 12/28: refused meds last night. Today asks for meds for sx mgt- aggressive today- threw two coffee cups. Begin Depakote 250 mg bid. 12/29: got multiple meds last NOC and overnight per his request. slept 2 hours. refusing meds this morning. commitment paperwork completed. 3-day notice expires tomorrow. c/o opioid craving, asked for methadone. methadone 30 mg daily started today. 12/30: filed for commitment today. haldol and ativan per his request last night. appears in disbelief that he will not be discharged today. 12/31: demanding to leave, getting agitated, banging on nursing station, slamming doors in his room. given IMs x 2, haldol 10 ativan 2 benadryl 50 for first and thorazine 100 for second. 01/01: Remains unpredictable and irritable. Refusing scheduled medications. Section 7/ filed. 01/02: Continue current management. 01/03: refusing meds. irritable, labile. periods of agitation. continue current mgmt, awaiting hearing for . 01/04: refusing meds. irritable, labile. periods of agitation. continue current mgmt, though pt is refusing meds. 01/05: thought-blocked. denies mental illness or need for medications. offer medications. hearing tomorrow. 01/06: committed and ordered medications at hearing. [place] [facility] [place] was discharged on VPA, zyprexa, haldol. 03/14/20 [place] summary reviewed, pt discharged on zyprexa, haldol. pt unable to comprehend result, agitated not to be leaving today. 01/07: copy of court order on unit, will order meds accordingly today. no change in presentation. 01/08: Continue current regimen and plans 01/09: Continue current plans and regimen. Discontinue contingent IM Ativan if Depakote refused 01/10: Continue current regimen and plans. 01/11: DC VPA, start tegretol per pt preference. ativan 2 mg IM for refusal of tegretol. continue haldol PO/IM orders. improved from last week. less agitated, a bit more organized and engaging. 01/12: appears more disorganized again today, trouble engaging. refused PO meds last night but did take tegretol PO this morning. 01/13: continues disorganized, difficulty expressing himself. refusing PO meds since yesterday morning. slept 10 hours last night, however 01/14: intermittently taking meds PO versus IM. improved behavior from prior to med order, but remains floridly psychotic. continue current mgmt. 01/16/2023: No changes to current plan 01/17: more compliant with tegretol in recent days, still getting haldol IM. no change in presentation. continue current mgmt. 01/18: remains psychotic, labile. increase tegretol to 300 mg BID. 01/19: continues more aggressive and labile today. increase haldol to 10 BID with back-up IM of 7.5 mg. 01/20: more calm today,periods of agitation, however, in the past 24H. continue current mgmt. declines to change scheduled haldol to thorazine (proposed by in the hope he would in order to spare him the IMs). 01/21 continue tx. 01/22 writing for thorazine at bed- mr x1 and check ekg given other antipsychotics on board 01/23 agreed to ekg today, added 1pm dose of 5mg haldol 01/24: taking meds PO, still suffering from AH, possibly VH. perhaps trending more calm, but clearly still periods of agitation in the past several days. 01/25: labile, paranoid delusions. informed staff he experiences AH, mumbles recently. increase tegretol to 400 BID, make IR formulation as he has been chewing the pills. 01/26: more calm today. continue current mgmt. 01/27: continues more calm. some staff concerned for akathisia due to pacing and number of PRNs taken, but appears to be doing less walking than he had been before, does not appear restless or uncomfortable. continue current mgmt, check tegretol level 2 weeks after dose change (02/08). 01/28: stable presentation. intermittent sleep disturbance. continue current mgmt. 01/29: Continue current management. Benadryl for allergies 01/30: Continue current plan of care. 01/31: continues to ask for lots of PRNs. no change in presentation. 01/28 mild anemia and hyponatremia; trend. tegretol level 10.3. 02/01: series of abnormal and dynamic EKGs; today's WNL. cardiology consult requested for opinion. will start lithium pending cards opinion re EKG series. no change in presentation. 02/02: appreciate cardiology consultation and opinion. echocardiogram ordered. lithium started. appears better able to tolerate longer interaction today. 02/03: improved ability to tolerate social engagements continues. feels lithium has been helpful. akathisia likely. decrease haldol 02/10/10 to 5 BID and add thorazine 25 BID at 0900 and 1300. 02/04: clear uptick in psychotic.manic behavior yesterday after haldol dose decrease. eloped today. increase thorazine to 100/100/200 with PRNS available. 02/05: no concerning behaviors since elopement yesterday. refused PO haldol last night, otherwise med compliant. 02/06: med-compliant, no concerning behaviors. continue current mgmt. 02/07: check BMP along with lithium level. stable presentation. 02/08: CBC/BMP not concerning. lithium 0.6, tegretol 9.0. increase lithium dosing from 600 BID to 600/900 as of tonight. DC haldol entirely out of concerns for akathisia. invega not a great option due to tegretol interaction. start prolixin PO with IM back-up as alternative neuroleptic to haldol. 02/09: Continue current tx plan. 02/10: increase prolixin from 5 BID to 5 TID. otherwise continue current mgmt. 02/11: continue current mgmt. check labs jeferson of 02/13. 02/12: Continue current plan. Check labs in AM. 02/13: Continue current treatment plan. Li level 0.68, CMZ level 8.6 02/14: Continue current regimen and plans 02/15: increase lithium to 750/900. T/C increasing tegretol in near future as well. gradually seems to be improving. 02/16: stable. continue current mgmt. has broached feeling depressed the past couple of days. 02/17: Continue current tx plan. 02/18: check labs in several days. stable, Sx much improved from prior but still clearly psychotic. 02/20: no changes 02/21: continue current mgmt. check labs soon. still psychotic, endorsing AH. 02/22: no change in presentation. check lithium and tegretol levels tomorrow. 02/23: tegretol 8.3, lithium 0.96. increase tegretol from 400 BID to 400/600 as of tonight. c/o restlessness, concern for akathisia. will review neuroleptics regimen if Sx do not improve in next several days (as might be the case if his restlessness is residual dante). also, AH continue. 02/24: stable. continue current mgmt. assess Sx over next week, then check tegretol level. 02/25: better related, discussed his post-discharge plans. family meeting late next week. continue current regimen, check labs around 03/02. 02/26: Continue plan of care discharge planning 02/27: Patient can not continues much improved states he feels much better without drug use no psychosis. 02/28: +RIS, bizarrely ends interview with MD by just getting up and walking away without a look or a word. increase prolixin 5 TID to 7.5 TID for psychosis. otherwise continue current mgmt. 03/01: continue current mgmt. tired today, stayed in bed. 03/02: tired again, rouses himself to sit up for interview. latency of response, asks MD to repeat question once, but denies AH. continue current mgmt. 03/03: more up and about today. unconvincingly denies AH. continue current mgmt. check labs tonight. 03/04: labs reviewed with pt, that they are reassuring and medication levels are good. tegretol 9.6, lithium 0.76. continue current mgmt. 03/05: Continue current regimen and plans. 03/06: Continue current plans and regimen 03/07: continue current mgmt. mtg btwn RADHA and pt's family held today. 03/08: Continue current tx plan. 03/09: Patient presents guarded during 1:1. He reports feeling okay today; states he is sleeping well. Isolative. Pt reports he doesn't go to groups because I don't learn anything . Denies SI/HI/VH/AH. Continue current tx plan. 03/10: Patient presents guarded and brief today. He reports feeling good . Pt stated, I don't need anything Denies SI/HI/VH/AH. 03/11: periods of cogency and periods of apparent thought disorganization. denying Sx but appears to still be RIS and distracted. continue current mgmt for now. 03/12 continue same treatment. 03/13 continue same treatment. 03/14: continue current mgmt. plan to streamline medications regimen prior to discharge. T/C prolixin MENDES. 03/15: Continue current treatment plan. 03/16: streamlining meds today. decrease thorazine PRN availability. start prolixin decanoate tomorrow morning, will decrease PO prolixin by about half once the injection is given. continue other medications for now. 03/17: received prolixin DEC 25 mg today. decrease PO prolixin from 7.5 TID to 5 BID, otherwise continue current mgmt. 03/18: Continue current treatment plan. 03/19: continue current mgmt. noted to have hit himself in the thigh twice apparently in frustration, occasionally mumble to himself, and have a minimal outburst at last evening. likely related to transition from PO prolixin to IM decanoate. 03/20: no change in presentation. continue current mgmt. 03/21: stable. continue current mgmt. 03/22: stable. continue current mgmt. next prolixin DEC dose 03/31, DC PO prolixin at that time. 03/23: Continue current tx plan. 03/24: Patient reports feeling more energetic today ; stated he does not need anything . Presents calm, pleasant. denies SI/HI/VH/AH. Continue current tx plan. 03/25: Continue current tx plan. 03/26: Continue current management and treatment plan. Reason for continued inpatient stay Substantial Risk for: inability to function and rapid decompensation Time Spent With Patient Time: Total time managing care of this patient today ____ minutes.
[2023-03-26 20:05] VITALS: BP 119/73; PULSE 83; RESP 18; TEMP 36.6; O2SAT 98
[2023-03-26] MEDS: carBAMazepine ER 200 MG TAB.ER.12H 600 MG PO (20:49)
[2023-03-26] MEDS: chlorproMAZINE HCl 100 MG TABLET 200 MG PO (20:50)
[2023-03-26] MEDS: Lithium Carbonate ER 450 MG TABLET.ER 900 MG PO (20:50)
[2023-03-26] MEDS: diphenhydrAMINE HCL 25 MG CAPSULE 50 MG PO (22:07)
[2023-03-27] MEDS: carBAMazepine 200 MG TABLET 400 MG PO (08:29)
[2023-03-27] MEDS: fluPHENAZine HCl 5 MG TABLET PO ×2 (08:29→20:58)
[2023-03-27] MEDS: Lithium Carbonate ER 300 MG TABLET.ER PO (08:29)
[2023-03-27] MEDS: Lithium Carbonate ER 450 MG TABLET.ER PO (08:29)
[2023-03-27] MEDS: chlorproMAZINE HCl 100 MG TABLET PO ×2 (08:29→14:25)
[2023-03-27] MEDS: Benztropine Mesylate 1 MG TABLET PO ×2 (08:29→20:58)
[2023-03-27 08:56] VITALS: BP 101/65; PULSE 88; RESP 20; TEMP 36.7; O2SAT 99
--- NOTE | 2023-03-27 16:07 | P.PNPSI_ITS ---
Subjective Subjective Date of Service: 03/27/23 Reason For Visit: Psychosis Interim History: Reviewed with RN. Patient guarded, brief, calm today. Isolative. reports feeling good ; stated he does not need anything . denies SI/HI/VH/AH. Review of Systems Review of Systems Yes all other systems are reviewed and are negative and Unobtainable due to mental status Constitutional: Reports as per HPI Eyes: Reports as per HPI Reports as per HPI Cardiovascular: Reports as per HPI Respiratory: Reports as per HPI Gastrointestinal: Reports as per HPI Genitourinary: Reports as per HPI Musculoskeletal: Reports as per HPI Skin/Breast: Reports as per HPI Reports as per HPI Psychiatric: Reports as per HPI Endocrine: Reports as per HPI Hematologic/Lymphatic: Reports as per HPI Allergic/Immunologic: Reports as per HPI Mental Status Exam Mental Status Exam Narrative: Pt is alert and oriented; behavior is guarded and calm; dressed in casual attire; mood is described as good ; eye contact appropriate; Speech is normal rate, volume and prosody and not pressured; thought process is organized; otherwise pertinent to relevant topics and without any delusional content, paranoid ideations or grandiosity; denies SI/HI/AH/VH. Patient Appearance: Well Grooomed and Appropriate Patient Orientation: Person and Situation Level of Consciousness: Awake and Appropriate Patient Behavior: Guarded and Cooperative Behavior Comments: can be irritable in pm Mood Description: Withdrawn Affect Description: Constricted Patient Cognition Impaired: Yes Ability to Follow Directions: Good Speech Pattern: Clear Memory Description: Remote Impaired Diagnostics Vital Signs (24Hr): Vital Signs - 24 hr 03/26/23 20:05 03/27/23 08:56 Temperature 97.8 F 98.1 F Pulse Rate 83 88 Respiratory Rate 18 20 Blood Pressure 119/73 101/65 Pulse Oximetry 98 99 Oxygen Delivery Method Room Air Room Air BMI result Body Mass Index 29.5 Labs 03/03/23 20:10 03/25/23 12:35 Medications Medications Current Medications Benztropine Mesylate (Benztropine Mesylate 1 Mg Tablet) 1 mg PO BID [facility] Last Admin: 03/27/23 08:29 Dose: 1 mg Carbamazepine (Carbamazepine 200 Mg Tablet) 400 mg PO DAILY [facility] Last Admin: 03/27/23 08:29 Dose: 400 mg Carbamazepine (Carbamazepine Er 200 Mg Tab.Er.12h) 600 mg PO BEDTIME [facility] Last Admin: 03/26/23 20:49 Dose: 600 mg Chlorpromazine HCl (Chlorpromazine Hcl 100 Mg Tablet) 200 mg PO BEDTIME [facility] Last Admin: 03/26/23 20:50 Dose: 200 mg Chlorpromazine HCl (Chlorpromazine Hcl 100 Mg Tablet) 100 mg PO BID@0900,1300 [facility] Last Admin: 03/27/23 14:25 Dose: 100 mg Chlorpromazine HCl (Chlorpromazine Hcl 100 Mg Tablet) 100 mg PO DAILY PRN PRN Reason: agitation/anxiety Diphenhydramine HCl (Diphenhydramine Hcl 25 Mg Capsule) 50 mg PO Q6H PRN PRN Reason: Allergic Symptoms Last Admin: 03/26/23 22:07 Dose: 50 mg Fluphenazine Decanoate (Fluphenazine Decanoate 25 Mg/Ml 5 Ml Vial) 25 mg IM Q14D@0900 [facility] Last Admin: 03/17/23 09:34 Dose: 25 mg Fluphenazine HCl (Fluphenazine Hcl 2.5 Mg/Ml 10 Ml Vial) 5 mg IM TID PRN PRN Reason: refusal of PO fluphenazine Fluphenazine HCl (Fluphenazine Hcl 5 Mg Tablet) 5 mg PO BID [facility] Last Admin: 03/27/23 08:29 Dose: 5 mg [place] Carbonate ([place] Carbonate Er 450 Mg Tablet.Er) 900 mg PO BEDTIME [facility] Last Admin: 03/26/23 20:50 Dose: 900 mg [place] Carbonate ([place] Carbonate Er 300 Mg Tablet.Er) 300 mg PO DAILY [facility] Last Admin: 03/27/23 08:29 Dose: 300 mg [place] Carbonate ([place] Carbonate Er 450 Mg Tablet.Er) 450 mg PO DAILY [facility] Last Admin: 03/27/23 08:29 Dose: 450 mg Multi-Ingred Cream/Lotion/Oil/Oint (Mineral Oil/Petrolatum,White 106 Gm Tube) 1 appl TOPICAL BID [facility]; Protocol Last Admin: 03/27/23 08:31 Dose: Not Given Allergies Allergies Allergy/AdvReac Type Severity Reaction Status Date / Time morphine [MORPHINE] AdvReac Unknown NAUSEA Verified 12/10/22 19:56 Assessment & Plan Assessment & Plan (1) Nonspecific ST-T wave electrocardiographic changes: Status: Acute Code(s): R94.31 - Abnormal electrocardiogram [ECG] [EKG] (2) Cocaine use disorder: Status: Acute Code(s): F14.10 - Cocaine abuse, uncomplicated (3) Schizoaffective disorder, bipolar type: Status: Acute Code(s): F25.0 - Schizoaffective disorder, bipolar type (4) Opioid use disorder: Status: Acute Code(s): F11.90 - Opioid use, unspecified, uncomplicated Plan 12/24: attempt to give anti-psychotics. comfort meds for opioid and cocaine withdrawal. 12/25: refusing medications. period of agitation last night slamming doors and yelling (presumably @). continue current mgmt. 12/26: refusing meds. binging and purging. floridly psychotic. 12/27: had meds last night for sleep, per his request. schedule all haldol tonight with ativan and cogentin. a bit more interactive today, remains delayed and distracted. no binging/purging behaviors or agitated behaviors described by RN report today. 12/28: refused meds last night. Today asks for meds for sx mgt- aggressive today- threw two coffee cups. Begin Depakote 250 mg bid. 12/29: got multiple meds last NOC and overnight per his request. slept 2 hours. refusing meds this morning. commitment paperwork completed. 3-day notice expires tomorrow. c/o opioid craving, asked for methadone. methadone 30 mg daily started today. 12/30: filed for commitment today. haldol and ativan per his request last night. appears in disbelief that he will not be discharged today. 12/31: demanding to leave, getting agitated, banging on nursing station, slamming doors in his room. given IMs x 2, haldol 10 ativan 2 benadryl 50 for first and thorazine 100 for second. 01/01: Remains unpredictable and irritable. Refusing scheduled medications. Section 7/ filed. 01/02: Continue current management. 01/03: refusing meds. irritable, labile. periods of agitation. continue current mgmt, awaiting hearing for . 01/04: refusing meds. irritable, labile. periods of agitation. continue current mgmt, though pt is refusing meds. 01/05: thought-blocked. denies mental illness or need for medications. offer medications. hearing tomorrow. 01/06: committed and ordered medications at hearing. 06/12/20 [place] DC summary reviewd, pt was discharged on VPA, zyprexa, haldol. 03/14/20 DC summary reviewed, pt discharged on zyprexa, haldol. pt unable to comprehend result, agitated not to be leaving today. 01/07: copy of court order on unit, will order meds accordingly today. no change in presentation. 01/08: Continue current regimen and plans 01/09: Continue current plans and regimen. Discontinue contingent IM Ativan if Depakote refused 01/10: Continue current regimen and plans. 01/11: DC VPA, start tegretol per pt preference. ativan 2 mg IM for refusal of tegretol. continue haldol PO/IM orders. improved from last week. less agitated, a bit more organized and engaging. 01/12: appears more disorganized again today, trouble engaging. refused PO meds last night but did take tegretol PO this morning. 01/13: continues disorganized, difficulty expressing himself. refusing PO meds since yesterday morning. slept 10 hours last night, however 01/14: intermittently taking meds PO versus IM. improved behavior from prior to med order, but remains floridly psychotic. continue current mgmt. 01/16/2023: No changes to current plan 01/17: more compliant with tegretol in recent days, still getting haldol IM. no change in presentation. continue current mgmt. 01/18: remains psychotic, labile. increase tegretol to 300 mg BID. 01/19: continues more aggressive and labile today. increase haldol to 10 BID with back-up IM of 7.5 mg. 01/20: more calm today,periods of agitation, however, in the past 24H. continue current mgmt. declines to change scheduled haldol to thorazine (proposed by MD in the hope he would in order to spare him the IMs). 01/21 continue tx. 01/22 writing for thorazine at bed- mr x1 and check ekg given other antipsychotics on board 01/23 agreed to ekg today, added 1pm dose of 5mg haldol 01/24: taking meds PO, still suffering from AH, possibly VH. perhaps trending more calm, but clearly still periods of agitation in the past several days. 01/25: labile, paranoid delusions. informed staff he experiences AH, mumbles recently. increase tegretol to 400 BID, make IR formulation as he has been chewing the pills. 01/26: more calm today. continue current mgmt. 01/27: continues more calm. some staff concerned for akathisia due to pacing and number of PRNs taken, but appears to be doing less walking than he had been before, does not appear restless or uncomfortable. continue current mgmt, check tegretol level 2 weeks after dose change (02/08). 01/28: stable presentation. intermittent sleep disturbance. continue current mgmt. 01/29: Continue current management. Benadryl for allergies 01/30: Continue current plan of care. 01/31: continues to ask for lots of PRNs. no change in presentation. 01/28 mild anemia and hyponatremia; trend. tegretol level 10.3. 02/01: series of abnormal and dynamic EKGs; today's WNL. cardiology consult requested for opinion. will start lithium pending cards opinion re EKG series. no change in presentation. 02/02: appreciate cardiology consultation and opinion. echocardiogram ordered. lithium started. appears better able to tolerate longer interaction today. 02/03: improved ability to tolerate social engagements continues. feels lithium has been helpful. akathisia likely. decrease haldol 02/10/10 to 5 BID and add thorazine 25 BID at 0900 and 1300. 02/04: clear uptick in psychotic.manic behavior yesterday after haldol dose decrease. eloped today. increase thorazine to 100/100/200 with PRNS available. 02/05: no concerning behaviors since elopement yesterday. refused PO haldol last night, otherwise med compliant. 02/06: med-compliant, no concerning behaviors. continue current mgmt. 02/07: check BMP along with lithium level. stable presentation. 02/08: CBC/BMP not concerning. lithium 0.6, tegretol 9.0. increase lithium dosing from 600 BID to 600/900 as of tonight. DC haldol entirely out of concerns for akathisia. invega not a great option due to tegretol interaction. start prolixin PO with IM back-up as alternative neuroleptic to haldol. 02/09: Continue current tx plan. 02/10: increase prolixin from 5 BID to 5 TID. otherwise continue current mgmt. 02/11: continue current mgmt. check labs jeferson of 02/13. 02/12: Continue current plan. Check labs in AM. 02/13: Continue current treatment plan. Li level 0.68, CMZ level 8.6 02/14: Continue current regimen and plans 02/15: increase lithium to 750/900. T/C increasing tegretol in near future as well. gradually seems to be improving. 02/16: stable. continue current mgmt. has broached feeling depressed the past couple of days. 02/17: Continue current tx plan. 02/18: check labs in several days. stable, Sx much improved from prior but still clearly psychotic. 02/20: no changes 02/21: continue current mgmt. check labs soon. still psychotic, endorsing AH. 02/22: no change in presentation. check lithium and tegretol levels tomorrow. 02/23: tegretol 8.3, lithium 0.96. increase tegretol from 400 BID to 400/600 as of tonight. c/o restlessness, concern for akathisia. will review neuroleptics regimen if Sx do not improve in next several days (as might be the case if his restlessness is residual dante). also, AH continue. 02/24: stable. continue current mgmt. assess Sx over next week, then check tegretol level. 02/25: better related, discussed his post-discharge plans. family meeting late next week. continue current regimen, check labs around 03/02. 02/26: Continue plan of care discharge planning 02/27: Patient can not continues much improved states he feels much better without drug use no psychosis. 02/28: +RIS, bizarrely ends interview with MD by just getting up and walking away without a look or a word. increase prolixin 5 TID to 7.5 TID for psychosis. otherwise continue current mgmt. 03/01: continue current mgmt. tired today, stayed in bed. 03/02: tired again, rouses himself to sit up for interview. latency of response, asks MD to repeat question once, but denies AH. continue current mgmt. 03/03: more up and about today. unconvincingly denies AH. continue current mgmt. check labs tonight. 03/04: labs reviewed with pt, that they are reassuring and medication levels are good. tegretol 9.6, lithium 0.76. continue current mgmt. 03/05: Continue current regimen and plans. 03/06: Continue current plans and regimen 03/07: continue current mgmt. mtg btwn SW and pt's family held today. 03/08: Continue current tx plan. 03/09: Patient presents guarded during 1:1. He reports feeling okay today; states he is sleeping well. Isolative. Pt reports he doesn't go to groups because I don't learn anything . Denies SI/HI/VH/AH. Continue current tx plan. 03/10: Patient presents guarded and brief today. He reports feeling good . Pt stated, I don't need anything Denies SI/HI/VH/AH. 03/11: periods of cogency and periods of apparent thought disorganization. denying Sx but appears to still be RIS and distracted. continue current mgmt for now. 03/12 continue same treatment. 03/13 continue same treatment. 03/14: continue current mgmt. plan to streamline medications regimen prior to discharge. T/C prolixin MENDES. 03/15: Continue current treatment plan. 03/16: streamlining meds today. decrease thorazine PRN availability. start prolixin decanoate tomorrow morning, will decrease PO prolixin by about half once the injection is given. continue other medications for now. 03/17: received prolixin DEC 25 mg today. decrease PO prolixin from 7.5 TID to 5 BID, otherwise continue current mgmt. 03/18: Continue current treatment plan. 03/19: continue current mgmt. noted to have hit himself in the thigh twice apparently in frustration, occasionally mumble to himself, and have a minimal outburst at last evening. likely related to transition from PO prolixin to IM decanoate. 03/20: no change in presentation. continue current mgmt. 03/21: stable. continue current mgmt. 03/22: stable. continue current mgmt. next prolixin DEC dose 03/31, DC PO prolixin at that time. 03/23: Continue current tx plan. 03/24: Patient reports feeling more energetic today ; stated he does not need anything . Presents calm, pleasant. denies SI/HI/VH/AH. Continue current tx plan. 03/25: Continue current tx plan. 03/26: Continue current management and treatment plan. Reason for continued inpatient stay Substantial Risk for: inability to function and rapid decompensation Time Spent With Patient Time: Total time managing care of this patient today ____ minutes.
[2023-03-27 18:00] VITALS: BP 139/86; PULSE 82; RESP 18; TEMP 36.5; O2SAT 98
[2023-03-27] MEDS: Acetaminophen 325 MG TABLET 650 MG PO (20:56)
[2023-03-27] MEDS: chlorproMAZINE HCl 100 MG TABLET 200 MG PO (20:57)
[2023-03-27] MEDS: carBAMazepine ER 200 MG TAB.ER.12H 600 MG PO (20:57)
[2023-03-27] MEDS: Lithium Carbonate ER 450 MG TABLET.ER 900 MG PO (20:58)
[2023-03-28 07:20] VITALS: BP 113/67; PULSE 72; RESP 20; TEMP 36.2; O2SAT 98
[2023-03-28] MEDS: Lithium Carbonate ER 450 MG TABLET.ER PO (08:47)
[2023-03-28] MEDS: Lithium Carbonate ER 300 MG TABLET.ER PO (08:48)
[2023-03-28] MEDS: fluPHENAZine HCl 5 MG TABLET PO ×2 (08:48→21:39)
[2023-03-28] MEDS: chlorproMAZINE HCl 100 MG TABLET PO ×2 (08:48→13:16)
[2023-03-28] MEDS: Benztropine Mesylate 1 MG TABLET PO ×2 (08:48→21:40)
[2023-03-28] MEDS: carBAMazepine 200 MG TABLET 400 MG PO (08:48)
--- NOTE | 2023-03-28 16:33 | HO.PSYCHPN ---
Subjective Subjective Date of Service: 03/28/23 Reason For Visit: Psychosis Interim History: calm, cooperative. some delays in response, brief moments of vacant staring. reports AH better. able to see they are products of his mind. per staff, stable, no changes. Mental Status Exam Mental Status Exam Narrative: Pt is alert and oriented; behavior is calm; dressed in casual attire; mood is described as good; eye contact appropriate; Speech is normal rate, volume and prosody and not pressured; thought process is linear and logical, some HAMLET; otherwise pertinent to relevant topics and without any delusional content, paranoid ideations or grandiosity; no SI/HI/VH expressed. insight that AH are just that. Diagnostics Vital Signs (24Hr): Vital Signs - 24 hr 03/27/23 18:00 03/28/23 07:20 Temperature 97.7 F 97.1 F Pulse Rate 82 72 Respiratory Rate 18 20 Blood Pressure 139/86 113/67 Pulse Oximetry 98 98 Oxygen Delivery Method Room Air Room Air BMI result Body Mass Index 29.5 Labs 03/03/23 20:10 03/25/23 12:35 Medications Medications Current Medications Acetaminophen (Acetaminophen 325 Mg Tablet) 650 mg PO Q6H PRN PRN Reason: mild pain Last Admin: 03/27/23 20:56 Dose: 650 mg Benztropine Mesylate (Benztropine Mesylate 1 Mg Tablet) 1 mg PO BID REPLACED BY [facility] Last Admin: 03/28/23 08:48 Dose: 1 mg Carbamazepine (Carbamazepine 200 Mg Tablet) 400 mg PO DAILY REPLACED BY [facility] Last Admin: 03/28/23 08:48 Dose: 400 mg Carbamazepine (Carbamazepine Er 200 Mg Tab.Er.12h) 600 mg PO BEDTIME REPLACED BY [facility] Last Admin: 03/27/23 20:57 Dose: 600 mg Chlorpromazine HCl (Chlorpromazine Hcl 100 Mg Tablet) 200 mg PO BEDTIME REPLACED BY [facility] Last Admin: 03/27/23 20:57 Dose: 200 mg Chlorpromazine HCl (Chlorpromazine Hcl 100 Mg Tablet) 100 mg PO BID@0900,1300 REPLACED BY [facility] Last Admin: 03/28/23 13:16 Dose: 100 mg Chlorpromazine HCl (Chlorpromazine Hcl 100 Mg Tablet) 100 mg PO DAILY PRN PRN Reason: agitation/anxiety Diphenhydramine HCl (Diphenhydramine Hcl 25 Mg Capsule) 50 mg PO Q6H PRN PRN Reason: Allergic Symptoms Last Admin: 03/26/23 22:07 Dose: 50 mg Fluphenazine Decanoate (Fluphenazine Decanoate 25 Mg/Ml 5 Ml Vial) 25 mg IM Q14D@0900 REPLACED BY [facility] Last Admin: 03/17/23 09:34 Dose: 25 mg Fluphenazine HCl (Fluphenazine Hcl 2.5 Mg/Ml 10 Ml Vial) 5 mg IM TID PRN PRN Reason: refusal of PO fluphenazine Fluphenazine HCl (Fluphenazine Hcl 5 Mg Tablet) 5 mg PO BID REPLACED BY [facility] Last Admin: 03/28/23 08:48 Dose: 5 mg Kiana Carbonate (Kiana Carbonate Er 450 Mg Tablet.Er) 900 mg PO BEDTIME REPLACED BY [facility] Last Admin: 03/27/23 20:58 Dose: 900 mg Kiana Carbonate (Kiana Carbonate Er 300 Mg Tablet.Er) 300 mg PO DAILY REPLACED BY [facility] Last Admin: 03/28/23 08:48 Dose: 300 mg Kiana Carbonate (Kiana Carbonate Er 450 Mg Tablet.Er) 450 mg PO DAILY REPLACED BY [facility] Last Admin: 03/28/23 08:47 Dose: 450 mg Multi-Ingred Cream/Lotion/Oil/Oint (Mineral Oil/Petrolatum,White 106 Gm Tube) 1 appl TOPICAL BID REPLACED BY [facility]; Protocol Last Admin: 03/28/23 08:50 Dose: Not Given Allergies Allergies Allergy/AdvReac Type Severity Reaction Status Date / Time morphine [MORPHINE] AdvReac Unknown NAUSEA Verified 12/10/22 19:56 Assessment & Plan Assessment & Plan (1) Nonspecific ST-T wave electrocardiographic changes: Status: Acute Code(s): R94.31 - Abnormal electrocardiogram [ECG] [EKG] (2) Cocaine use disorder: Status: Acute Code(s): F14.10 - Cocaine abuse, uncomplicated (3) Schizoaffective disorder, bipolar type: Status: Acute Code(s): F25.0 - Schizoaffective disorder, bipolar type (4) Opioid use disorder: Status: Acute Code(s): F11.90 - Opioid use, unspecified, uncomplicated Plan 12/24: attempt to give anti-psychotics. comfort meds for opioid and cocaine withdrawal. 12/25: refusing medications. period of agitation last night slamming doors and yelling (presumably @[facility]). continue current mgmt. 12/26: refusing meds. binging and purging. floridly psychotic. 12/27: had meds last night for sleep, per his request. schedule all haldol tonight with ativan and cogentin. a bit more interactive today, remains delayed and distracted. no binging/purging behaviors or agitated behaviors described by RN report today. 12/28: refused meds last night. Today asks for meds for sx mgt- aggressive today-threw two coffee cups. Begin Depakote 250 mg bid. 12/29: got multiple meds last NOC and overnight per his request. slept 2 hours. refusing meds this morning. commitment paperwork completed. 3-day notice expires tomorrow. c/o opioid craving, asked for methadone. methadone 30 mg daily started today. 12/30: filed for commitment today. haldol and ativan per his request last night. appears in disbelief that he will not be discharged today. 12/31: demanding to leave, getting agitated, banging on nursing station, slamming doors in his room. given IMs x 2, haldol 10 ativan 2 benadryl 50 for first and thorazine 100 for second. 01/01: Remains unpredictable and irritable. Refusing scheduled medications. Section 7/ filed. 01/02: Continue current management. 01/03: refusing meds. irritable, labile. periods of agitation. continue current mgmt, awaiting hearing for . 01/04: refusing meds. irritable, labile. periods of agitation. continue current mgmt, though pt is refusing meds. 01/05: thought-blocked. denies mental illness or need for medications. offer medications. hearing tomorrow. 01/06: committed and ordered medications at hearing. 06/12/20 [facility] [place] DC summary reviewd, pt was discharged on VPA, zyprexa, haldol. 03/14/20 DC summary reviewed, pt discharged on zyprexa, haldol. pt unable to comprehend result, agitated not to be leaving today. 01/07: copy of court order on unit, will order meds accordingly today. no change in presentation. 01/08: Continue current regimen and plans 01/09: Continue current plans and regimen. Discontinue contingent IM Ativan if Depakote refused 01/10: Continue current regimen and plans. 01/11: DC VPA, start tegretol per pt preference. ativan 2 mg IM for refusal of tegretol. continue haldol PO/IM orders. improved from last week. less agitated, a bit more organized and engaging. 01/12: appears more disorganized again today, trouble engaging. refused PO meds last night but did take tegretol PO this morning. 01/13: continues disorganized, difficulty expressing himself. refusing PO meds since yesterday morning. slept 10 hours last night, however 01/14: intermittently taking meds PO versus IM. improved behavior from prior to med order, but remains floridly psychotic. continue current mgmt. 01/16/2023: No changes to current plan 01/17: more compliant with tegretol in recent days, still getting haldol IM. no change in presentation. continue current mgmt. 01/18: remains psychotic, labile. increase tegretol to 300 mg BID. 01/19: continues more aggressive and labile today. increase haldol to 10 BID with back-up IM of 7.5 mg. 01/20: more calm today,periods of agitation, however, in the past 24H. continue current mgmt. declines to change scheduled haldol to thorazine (proposed by MD in the hope he would in order to spare him the IMs). 01/21 continue tx. 01/22 writing for thorazine at bed- mr x1 and check ekg given other antipsychotics on board 01/23 agreed to ekg today, added 1pm dose of 5mg haldol 01/24: taking meds PO, still suffering from AH, possibly VH. perhaps trending more calm, but clearly still periods of agitation in the past several days. 01/25: labile, paranoid delusions. informed staff he experiences AH, mumbles recently. increase tegretol to 400 BID, make IR formulation as he has been chewing the pills. 01/26: more calm today. continue current mgmt. 01/27: continues more calm. some staff concerned for akathisia due to pacing and number of PRNs taken, but appears to be doing less walking than he had been before, does not appear restless or uncomfortable. continue current mgmt, check tegretol level 2 weeks after dose change (02/08). 01/28: stable presentation. intermittent sleep disturbance. continue current mgmt. 01/29: Continue current management. Benadryl for allergies 01/30: Continue current plan of care. 01/31: continues to ask for lots of PRNs. no change in presentation. 01/28 mild anemia and hyponatremia; trend. tegretol level 10.3. 02/01: series of abnormal and dynamic EKGs; today's WNL. cardiology consult requested for opinion. will start lithium pending cards opinion re EKG series. no change in presentation. 02/02: appreciate cardiology consultation and opinion. echocardiogram ordered. lithium started. appears better able to tolerate longer interaction today. 02/03: improved ability to tolerate social engagements continues. feels lithium has been helpful. akathisia likely. decrease haldol 02/10/10 to 5 BID and add thorazine 25 BID at 0900 and 1300. 02/04: clear uptick in psychotic.manic behavior yesterday after haldol dose decrease. eloped today. increase thorazine to 100/100/200 with PRNS available. 02/05: no concerning behaviors since elopement yesterday. refused PO haldol last night, otherwise med compliant. 02/06: med-compliant, no concerning behaviors. continue current mgmt. 02/07: check BMP along with lithium level. stable presentation. 02/08: CBC/BMP not concerning. lithium 0.6, tegretol 9.0. increase lithium dosing from 600 BID to 600/900 as of tonight. DC haldol entirely out of concerns for akathisia. invega not a great option due to tegretol interaction. start prolixin PO with IM back-up as alternative neuroleptic to haldol. 02/09: Continue current tx plan. 02/10: increase prolixin from 5 BID to 5 TID. otherwise continue current mgmt. 02/11: continue current mgmt. check labs jeferson of 02/13. 02/12: Continue current plan. Check labs in AM. 02/13: Continue current treatment plan. Li level 0.68, CMZ level 8.6 02/14: Continue current regimen and plans 02/15: increase lithium to 750/900. T/C increasing tegretol in near future as well. gradually seems to be improving. 02/16: stable. continue current mgmt. has broached feeling depressed the past couple of days. 02/17: Continue current tx plan. 02/18: check labs in several days. stable, Sx much improved from prior but still clearly psychotic. 02/20: no changes 02/21: continue current mgmt. check labs soon. still psychotic, endorsing AH. 02/22: no change in presentation. check lithium and tegretol levels tomorrow. 02/23: tegretol 8.3, lithium 0.96. increase tegretol from 400 BID to 400/600 as of tonight. c/o restlessness, concern for akathisia. will review neuroleptics regimen if Sx do not improve in next several days (as might be the case if his restlessness is residual dante). also, AH continue. 02/24: stable. continue current mgmt. assess Sx over next week, then check tegretol level. 02/25: better related, discussed his post-discharge plans. family meeting late next week. continue current regimen, check labs around 03/02. 02/26: Continue plan of care discharge planning 02/27: Patient can not continues much improved states he feels much better without drug use no psychosis. 02/28: +RIS, bizarrely ends interview with MD by just getting up and walking away without a look or a word. increase prolixin 5 TID to 7.5 TID for psychosis. otherwise continue current mgmt. 03/01: continue current mgmt. tired today, stayed in bed. 03/02: tired again, rouses himself to sit up for interview. latency of response, asks MD to repeat question once, but denies AH. continue current mgmt. 03/03: more up and about today. unconvincingly denies AH. continue current mgmt. check labs tonight. 03/04: labs reviewed with pt, that they are reassuring and medication levels are good. tegretol 9.6, lithium 0.76. continue current mgmt. 03/05: Continue current regimen and plans. 03/06: Continue current plans and regimen 03/07: continue current mgmt. mtg btwn RADHA and pt's family held today. 03/08: Continue current tx plan. 03/09: Patient presents guarded during 1:1. He reports feeling okay today; states he is sleeping well. Isolative. Pt reports he doesn't go to groups because I don't learn anything . Denies SI/HI/VH/AH. Continue current tx plan. 03/10: Patient presents guarded and brief today. He reports feeling good . Pt stated, I don't need anything Denies SI/HI/VH/AH. 03/11: periods of cogency and periods of apparent thought disorganization. denying Sx but appears to still be RIS and distracted. continue current mgmt for now. 03/12 continue same treatment. 03/13 continue same treatment. 03/14: continue current mgmt. plan to streamline medications regimen prior to discharge. T/C prolixin MENDES. 03/15: Continue current treatment plan. 03/16: streamlining meds today. decrease thorazine PRN availability. start prolixin decanoate tomorrow morning, will decrease PO prolixin by about half once the injection is given. continue other medications for now. 03/17: received prolixin DEC 25 mg today. decrease PO prolixin from 7.5 TID to 5 BID, otherwise continue current mgmt. 03/18: Continue current treatment plan. 03/19: continue current mgmt. noted to have hit himself in the thigh twice apparently in frustration, occasionally mumble to himself, and have a minimal outburst at AH last evening. likely related to transition from PO prolixin to IM decanoate. 03/20: no change in presentation. continue current mgmt. 03/21: stable. continue current mgmt. 03/22: stable. continue current mgmt. next prolixin DEC dose 03/31, DC PO prolixin at that time. 03/23: Continue current tx plan. 03/24: Patient reports feeling more energetic today ; stated he does not need anything . Presents calm, pleasant. denies SI/HI/VH/AH. Continue current tx plan. 03/25: Continue current tx plan. 03/26: Continue current management and treatment plan. 03/28: continue current mgmt. prolixin DEC 03/31, then DC PO prolixin. planning for discharge late next week/ Reason for continued inpatient stay Substantial Risk for: rapid decompensation Time Spent With Patient Time: Total time managing care of this patient today __25__ minutes.
[2023-03-28 21:33] VITALS: BP 126/77; PULSE 63; TEMP 36.7; O2SAT 99
[2023-03-28] MEDS: carBAMazepine ER 200 MG TAB.ER.12H 600 MG PO (21:39)
[2023-03-28] MEDS: Lithium Carbonate ER 450 MG TABLET.ER 900 MG PO (21:39)
[2023-03-28] MEDS: chlorproMAZINE HCl 100 MG TABLET 200 MG PO (21:39)
[2023-03-29] MEDS: fluPHENAZine HCl 5 MG TABLET PO ×2 (08:50→21:01)
[2023-03-29] MEDS: chlorproMAZINE HCl 100 MG TABLET PO ×2 (08:50→14:20)
[2023-03-29] MEDS: Lithium Carbonate ER 300 MG TABLET.ER PO (08:50)
[2023-03-29] MEDS: carBAMazepine 200 MG TABLET 400 MG PO (08:50)
[2023-03-29] MEDS: Lithium Carbonate ER 450 MG TABLET.ER PO (08:50)
[2023-03-29] MEDS: Benztropine Mesylate 1 MG TABLET PO ×2 (08:51→21:02)
[2023-03-29 09:42] VITALS: BP 137/72; PULSE 83; RESP 18; TEMP 36.7; O2SAT 98
--- NOTE | 2023-03-29 17:07 | P.PNPSI_ITS ---
Subjective Subjective Date of Service: 03/29/23 Reason For Visit: Psychosis Interim History: calm, cooperative. no questions or concerns, just verifying plan to get MENDES on and DC PO prolixin. per staff, denies dep/anx. endorsing AH, +RIS. taking meals. taking meds. not attending groups. pacing. Mental Status Exam Mental Status Exam Narrative: Pt is alert and oriented; behavior is calm; dressed in casual attire; mood is described as good; eye contact appropriate; Speech is normal rate, volume and prosody and not pressured; thought process is linear and logical, some HAMLET; otherwise pertinent to relevant topics and without any delusional content, paranoid ideations or grandiosity; no SI/HI/VH expressed. insight that AH are just that. Diagnostics Vital Signs (24Hr): Vital Signs - 24 hr 03/28/23 21:33 03/29/23 09:42 Temperature 98.1 F 98.1 F Pulse Rate 63 83 Respiratory Rate 18 Blood Pressure 126/77 137/72 Pulse Oximetry 99 98 Oxygen Delivery Method Room Air Room Air BMI result Body Mass Index 29.5 Labs 03/03/23 20:10 03/25/23 12:35 Medications Medications Current Medications Acetaminophen (Acetaminophen 325 Mg Tablet) 650 mg PO Q6H PRN PRN Reason: mild pain Last Admin: 03/27/23 20:56 Dose: 650 mg Benztropine Mesylate (Benztropine Mesylate 1 Mg Tablet) 1 mg PO BID [facility] Last Admin: 03/29/23 08:51 Dose: 1 mg Carbamazepine (Carbamazepine 200 Mg Tablet) 400 mg PO DAILY [facility] Last Admin: 03/29/23 08:50 Dose: 400 mg Carbamazepine (Carbamazepine Er 200 Mg Tab.Er.12h) 600 mg PO BEDTIME [facility] Last Admin: 03/28/23 21:39 Dose: 600 mg Chlorpromazine HCl (Chlorpromazine Hcl 100 Mg Tablet) 100 mg PO DAILY PRN PRN Reason: agitation/anxiety Chlorpromazine HCl (Chlorpromazine Hcl 100 Mg Tablet) 300 mg PO BEDTIME [facility] Chlorpromazine HCl (Chlorpromazine Hcl 100 Mg Tablet) 100 mg PO DAILY [facility] Diphenhydramine HCl (Diphenhydramine Hcl 25 Mg Capsule) 50 mg PO Q6H PRN PRN Reason: Allergic Symptoms Last Admin: 03/26/23 22:07 Dose: 50 mg Fluphenazine Decanoate (Fluphenazine Decanoate 25 Mg/Ml 5 Ml Vial) 25 mg IM Q14D@0900 [facility] Last Admin: 03/17/23 09:34 Dose: 25 mg Fluphenazine HCl (Fluphenazine Hcl 2.5 Mg/Ml 10 Ml Vial) 5 mg IM TID PRN PRN Reason: refusal of PO fluphenazine Fluphenazine HCl (Fluphenazine Hcl 5 Mg Tablet) 5 mg PO BID [facility] Stop: 03/31/23 21:00 Last Admin: 03/29/23 08:50 Dose: 5 mg [place] Carbonate ([place] Carbonate Er 450 Mg Tablet.Er) 900 mg PO BEDTIME [facility] Last Admin: 03/28/23 21:39 Dose: 900 mg [place] Carbonate ([place] Carbonate Er 300 Mg Tablet.Er) 300 mg PO DAILY [facility] Last Admin: 03/29/23 08:50 Dose: 300 mg [place] Carbonate ([place] Carbonate Er 450 Mg Tablet.Er) 450 mg PO DAILY [facility] Last Admin: 03/29/23 08:50 Dose: 450 mg Multi-Ingred Cream/Lotion/Oil/Oint (Mineral Oil/Petrolatum,White 106 Gm Tube) 1 appl TOPICAL BID [facility]; Protocol Last Admin: 03/29/23 08:52 Dose: Not Given Allergies Allergies Allergy/AdvReac Type Severity Reaction Status Date / Time morphine [MORPHINE] AdvReac Unknown NAUSEA Verified 12/10/22 19:56 Assessment & Plan Assessment & Plan (1) Nonspecific ST-T wave electrocardiographic changes: Status: Acute Code(s): R94.31 - Abnormal electrocardiogram [ECG] [EKG] (2) Cocaine use disorder: Status: Acute Code(s): F14.10 - Cocaine abuse, uncomplicated (3) Schizoaffective disorder, bipolar type: Status: Acute Code(s): F25.0 - Schizoaffective disorder, bipolar type (4) Opioid use disorder: Status: Acute Code(s): F11.90 - Opioid use, unspecified, uncomplicated Plan 12/24: attempt to give anti-psychotics. comfort meds for opioid and cocaine withdrawal. 12/25: refusing medications. period of agitation last night slamming doors and yelling (presumably @). continue current mgmt. 12/26: refusing meds. binging and purging. floridly psychotic. 12/27: had meds last night for sleep, per his request. schedule all haldol tonight with ativan and cogentin. a bit more interactive today, remains delayed and distracted. no binging/purging behaviors or agitated behaviors described by RN report today. 12/28: refused meds last night. Today asks for meds for sx mgt- aggressive today- threw two coffee cups. Begin Depakote 250 mg bid. 12/29: got multiple meds last NOC and overnight per his request. slept 2 hours. refusing meds this morning. commitment paperwork completed. 3-day notice expires tomorrow. c/o opioid craving, asked for methadone. methadone 30 mg daily started today. 12/30: filed for commitment today. haldol and ativan per his request last night. appears in disbelief that he will not be discharged today. 12/31: demanding to leave, getting agitated, banging on nursing station, slamming doors in his room. given IMs x 2, haldol 10 ativan 2 benadryl 50 for first and thorazine 100 for second. 01/01: Remains unpredictable and irritable. Refusing scheduled medications. Section 7/8 filed. 01/02: Continue current management. 01/03: refusing meds. irritable, labile. periods of agitation. continue current mgmt, awaiting hearing for . 01/04: refusing meds. irritable, labile. periods of agitation. continue current mgmt, though pt is refusing meds. 01/05: thought-blocked. denies mental illness or need for medications. offer medications. hearing tomorrow. 01/06: committed and ordered medications at hearing. 06/12/20 [facility] DC summary reviewd, pt was discharged on VPA, zyprexa, haldol. 03/14/20 DC summary reviewed, pt discharged on zyprexa, haldol. pt unable to comprehend result, agitated not to be leaving today. 01/07: copy of court order on unit, will order meds accordingly today. no change in presentation. 01/08: Continue current regimen and plans 01/09: Continue current plans and regimen. Discontinue contingent IM Ativan if Depakote refused 01/10: Continue current regimen and plans. 01/11: DC VPA, start tegretol per pt preference. ativan 2 mg IM for refusal of tegretol. continue haldol PO/IM orders. improved from last week. less agitated, a bit more organized and engaging. 01/12: appears more disorganized again today, trouble engaging. refused PO meds last night but did take tegretol PO this morning. 01/13: continues disorganized, difficulty expressing himself. refusing PO meds since yesterday morning. slept 10 hours last night, however 01/14: intermittently taking meds PO versus IM. improved behavior from prior to med order, but remains floridly psychotic. continue current mgmt. 01/16/2023: No changes to current plan 01/17: more compliant with tegretol in recent days, still getting haldol IM. no change in presentation. continue current mgmt. 01/18: remains psychotic, labile. increase tegretol to 300 mg BID. 01/19: continues more aggressive and labile today. increase haldol to 10 BID with back-up IM of 7.5 mg. 01/20: more calm today,periods of agitation, however, in the past 24H. continue current mgmt. declines to change scheduled haldol to thorazine (proposed by MD in the hope he would in order to spare him the IMs). 01/21 continue tx. 01/22 writing for thorazine at bed- mr x1 and check ekg given other antipsychotics on board 01/23 agreed to ekg today, added 1pm dose of 5mg haldol 01/24: taking meds PO, still suffering from AH, possibly VH. perhaps trending more calm, but clearly still periods of agitation in the past several days. 01/25: labile, paranoid delusions. informed staff he experiences AH, mumbles recently. increase tegretol to 400 BID, make IR formulation as he has been chewing the pills. 01/26: more calm today. continue current mgmt. 01/27: continues more calm. some staff concerned for akathisia due to pacing and number of PRNs taken, but appears to be doing less walking than he had been before, does not appear restless or uncomfortable. continue current mgmt, check tegretol level 2 weeks after dose change (02/08). 01/28: stable presentation. intermittent sleep disturbance. continue current mgmt. 01/29: Continue current management. Benadryl for allergies 01/30: Continue current plan of care. 01/31: continues to ask for lots of PRNs. no change in presentation. 01/28 mild anemia and hyponatremia; trend. tegretol level 10.3. 02/01: series of abnormal and dynamic EKGs; today's WNL. cardiology consult requested for opinion. will start lithium pending cards opinion re EKG series. no change in presentation. 02/02: appreciate cardiology consultation and opinion. echocardiogram ordered. lithium started. appears better able to tolerate longer interaction today. 02/03: improved ability to tolerate social engagements continues. feels lithium has been helpful. akathisia likely. decrease haldol 02/10/10 to 5 BID and add thorazine 25 BID at 0900 and 1300. 02/04: clear uptick in psychotic.manic behavior yesterday after haldol dose decrease. eloped today. increase thorazine to 100/100/200 with PRNS available. 02/05: no concerning behaviors since elopement yesterday. refused PO haldol last night, otherwise med compliant. 02/06: med-compliant, no concerning behaviors. continue current mgmt. 02/07: check BMP along with lithium level. stable presentation. 02/08: CBC/BMP not concerning. lithium 0.6, tegretol 9.0. increase lithium dosing from 600 BID to 600/900 as of tonight. DC haldol entirely out of concerns for akathisia. invega not a great option due to tegretol interaction. start prolixin PO with IM back-up as alternative neuroleptic to haldol. 02/09: Continue current tx plan. 02/10: increase prolixin from 5 BID to 5 TID. otherwise continue current mgmt. 02/11: continue current mgmt. check labs jeferson of 02/13. 02/12: Continue current plan. Check labs in AM. 02/13: Continue current treatment plan. Li level 0.68, CMZ level 8.6 02/14: Continue current regimen and plans 02/15: increase lithium to 750/900. T/C increasing tegretol in near future as well. gradually seems to be improving. 02/16: stable. continue current mgmt. has broached feeling depressed the past couple of days. 02/17: Continue current tx plan. 02/18: check labs in several days. stable, Sx much improved from prior but still clearly psychotic. 02/20: no changes 02/21: continue current mgmt. check labs soon. still psychotic, endorsing AH. 02/22: no change in presentation. check lithium and tegretol levels tomorrow. 02/23: tegretol 8.3, lithium 0.96. increase tegretol from 400 BID to 400/600 as of tonight. c/o restlessness, concern for akathisia. will review neuroleptics regimen if Sx do not improve in next several days (as might be the case if his restlessness is residual dante). also, AH continue. 02/24: stable. continue current mgmt. assess Sx over next week, then check tegretol level. 02/25: better related, discussed his post-discharge plans. family meeting late next week. continue current regimen, check labs around 03/02. 02/26: Continue plan of care discharge planning 02/27: Patient can not continues much improved states he feels much better without drug use no psychosis. 02/28: +RIS, bizarrely ends interview with MD by just getting up and walking away without a look or a word. increase prolixin 5 TID to 7.5 TID for psychosis. otherwise continue current mgmt. 03/01: continue current mgmt. tired today, stayed in bed. 03/02: tired again, rouses himself to sit up for interview. latency of response, asks MD to repeat question once, but denies AH. continue current mgmt. 03/03: more up and about today. unconvincingly denies AH. continue current mgmt. check labs tonight. 03/04: labs reviewed with pt, that they are reassuring and medication levels are good. tegretol 9.6, lithium 0.76. continue current mgmt. 03/05: Continue current regimen and plans. 03/06: Continue current plans and regimen 03/07: continue current mgmt. mtg btwn SW and pt's family held today. 03/08: Continue current tx plan. 03/09: Patient presents guarded during 1:1. He reports feeling okay today; states he is sleeping well. Isolative. Pt reports he doesn't go to groups because I don't learn anything . Denies SI/HI/VH/AH. Continue current tx plan. 03/10: Patient presents guarded and brief today. He reports feeling good . Pt stated, I don't need anything Denies SI/HI/VH/AH. 03/11: periods of cogency and periods of apparent thought disorganization. denying Sx but appears to still be RIS and distracted. continue current mgmt for now. 03/12 continue same treatment. 03/13 continue same treatment. 03/14: continue current mgmt. plan to streamline medications regimen prior to discharge. T/C prolixin MENDES. 03/15: Continue current treatment plan. 03/16: streamlining meds today. decrease thorazine PRN availability. start prolixin decanoate tomorrow morning, will decrease PO prolixin by about half once the injection is given. continue other medications for now. 03/17: received prolixin DEC 25 mg today. decrease PO prolixin from 7.5 TID to 5 BID, otherwise continue current mgmt. 03/18: Continue current treatment plan. 03/19: continue current mgmt. noted to have hit himself in the thigh twice apparently in frustration, occasionally mumble to himself, and have a minimal outburst at AH last evening. likely related to transition from PO prolixin to IM decanoate. 03/20: no change in presentation. continue current mgmt. 03/21: stable. continue current mgmt. 03/22: stable. continue current mgmt. next prolixin DEC dose 03/31, DC PO prolixin at that time. 03/23: Continue current tx plan. 03/24: Patient reports feeling more energetic today ; stated he does not need anything . Presents calm, pleasant. denies SI/HI/VH/AH. Continue current tx plan. 03/25: Continue current tx plan. 03/26: Continue current management and treatment plan. 03/28: continue current mgmt. prolixin DEC 03/31, then DC PO prolixin. planning for discharge late next week. 03/29: change thorazine 100/100/200 to 100/300 for ease of administration post- discharge. prolixin DEC 25 on , DC PO prolixin . otherwise continue current mgmt. Reason for continued inpatient stay Substantial Risk for: inability to function and rapid decompensation Time Spent With Patient Time: Total time managing care of this patient today __25__ minutes.
[2023-03-29 20:15] VITALS: BP 130/66; PULSE 87; RESP 18; TEMP 36.6; O2SAT 99
[2023-03-29] MEDS: carBAMazepine ER 200 MG TAB.ER.12H 600 MG PO (21:01)
[2023-03-29] MEDS: Lithium Carbonate ER 450 MG TABLET.ER 900 MG PO (21:01)
[2023-03-29] MEDS: chlorproMAZINE HCl 100 MG TABLET 300 MG PO (21:02)
[2023-03-30 07:48] VITALS: BP 103/56; PULSE 85; RESP 16; TEMP 36.6; O2SAT 99
--- NOTE | 2023-03-30 08:42 | HO.PSYCHPN ---
Subjective Subjective Date of Service: 03/30/23 Reason For Visit: Psychosis Subjective Notes: Section 8 Interim History: Reviewed in team and . Isolative. Pt reports feeling good ; stated he does not need anything . 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 denies SI/HI/VH/AH. Medication Compliance: Yes Side effects from medications: No Attending Groups: No Review of Systems Constitutional: Reports as per HPI Eyes: Reports as per HPI Reports as per HPI Cardiovascular: Reports as per HPI Respiratory: Reports as per HPI Gastrointestinal: Reports as per HPI Genitourinary: Reports as per HPI Musculoskeletal: Reports as per HPI Skin/Breast: Reports as per HPI Reports as per HPI Psychiatric: Reports as per HPI Endocrine: Reports as per HPI Hematologic/Lymphatic: Reports as per HPI Allergic/Immunologic: Reports as per HPI Mental Status Exam Mental Status Exam Narrative: Pt is alert and oriented; behavior is guarded and calm; dressed in casual attire; mood is described as good ; eye contact appropriate; Speech is normal rate, volume and prosody and not pressured; thought process is organized; otherwise pertinent to relevant topics and without any delusional content, paranoid ideations or grandiosity; denies SI/HI/AH/VH. Diagnostics Vital Signs (24Hr): Vital Signs - 24 hr 03/29/23 09:42 03/29/23 20:15 03/30/23 07:48 Temperature 98.1 F 97.8 F 98 F Pulse Rate 83 87 85 Respiratory Rate 18 18 16 Blood Pressure 137/72 130/66 103/56 L Pulse Oximetry 98 99 99 Oxygen Delivery Method Room Air Room Air Room Air BMI result Body Mass Index 29.5 Labs 03/03/23 20:10 03/25/23 12:35 Medications Medications Current Medications Acetaminophen (Acetaminophen 325 Mg Tablet) 650 mg PO Q6H PRN PRN Reason: mild pain Last Admin: 03/27/23 20:56 Dose: 650 mg Benztropine Mesylate (Benztropine Mesylate 1 Mg Tablet) 1 mg PO BID LEONOR Last Admin: 03/29/23 21:02 Dose: 1 mg Carbamazepine (Carbamazepine 200 Mg Tablet) 400 mg PO DAILY LEONOR Last Admin: 03/29/23 08:50 Dose: 400 mg Carbamazepine (Carbamazepine Er 200 Mg Tab.Er.12h) 600 mg PO BEDTIME [facility] Last Admin: 03/29/23 21:01 Dose: 600 mg Chlorpromazine HCl (Chlorpromazine Hcl 100 Mg Tablet) 100 mg PO DAILY PRN PRN Reason: agitation/anxiety Chlorpromazine HCl (Chlorpromazine Hcl 100 Mg Tablet) 300 mg PO BEDTIME [facility] Last Admin: 03/29/23 21:02 Dose: 300 mg Chlorpromazine HCl (Chlorpromazine Hcl 100 Mg Tablet) 100 mg PO DAILY [facility] Diphenhydramine HCl (Diphenhydramine Hcl 25 Mg Capsule) 50 mg PO Q6H PRN PRN Reason: Allergic Symptoms Last Admin: 03/26/23 22:07 Dose: 50 mg Fluphenazine Decanoate (Fluphenazine Decanoate 25 Mg/Ml 5 Ml Vial) 25 mg IM Q14D@0900 [facility] Last Admin: 03/17/23 09:34 Dose: 25 mg Fluphenazine HCl (Fluphenazine Hcl 2.5 Mg/Ml 10 Ml Vial) 5 mg IM TID PRN PRN Reason: refusal of PO fluphenazine Fluphenazine HCl (Fluphenazine Hcl 5 Mg Tablet) 5 mg PO BID [facility] Stop: 03/31/23 21:00 Last Admin: 03/29/23 21:01 Dose: 5 mg Convent Carbonate (Convent Carbonate Er 450 Mg Tablet.Er) 900 mg PO BEDTIME [facility] Last Admin: 03/29/23 21:01 Dose: 900 mg Convent Carbonate (Convent Carbonate Er 300 Mg Tablet.Er) 300 mg PO DAILY [facility] Last Admin: 03/29/23 08:50 Dose: 300 mg Convent Carbonate (Convent Carbonate Er 450 Mg Tablet.Er) 450 mg PO DAILY [facility] Last Admin: 03/29/23 08:50 Dose: 450 mg Multi-Ingred Cream/Lotion/Oil/Oint (Mineral Oil/Petrolatum,White 106 Gm Tube) 1 appl TOPICAL BID [facility]; Protocol Last Admin: 03/29/23 23:06 Dose: Not Given Allergies Allergies Allergy/AdvReac Type Severity Reaction Status Date / Time morphine [MORPHINE] AdvReac Unknown NAUSEA Verified 12/10/22 19:56 Assessment & Plan Assessment & Plan (1) Nonspecific ST-T wave electrocardiographic changes: Status: Acute Code(s): R94.31 - Abnormal electrocardiogram [ECG] [EKG] (2) Cocaine use disorder: Status: Acute Code(s): F14.10 - Cocaine abuse, uncomplicated (3) Schizoaffective disorder, bipolar type: Status: Acute Code(s): F25.0 - Schizoaffective disorder, bipolar type (4) Opioid use disorder: Status: Acute Code(s): F11.90 - Opioid use, unspecified, uncomplicated Plan 12/24: attempt to give anti-psychotics. comfort meds for opioid and cocaine withdrawal. 12/25: refusing medications. period of agitation last night slamming doors and yelling (presumably @). continue current mgmt. 12/26: refusing meds. binging and purging. floridly psychotic. 12/27: had meds last night for sleep, per his request. schedule all haldol tonight with ativan and cogentin. a bit more interactive today, remains delayed and distracted. no binging/purging behaviors or agitated behaviors described by RN report today. 12/28: refused meds last night. Today asks for meds for sx mgt- aggressive today-threw two coffee cups. Begin Depakote 250 mg bid. 12/29: got multiple meds last NOC and overnight per his request. slept 2 hours. refusing meds this morning. commitment paperwork completed. 3-day notice expires tomorrow. c/o opioid craving, asked for methadone. methadone 30 mg daily started today. 12/30: filed for commitment today. haldol and ativan per his request last night. appears in disbelief that he will not be discharged today. 12/31: demanding to leave, getting agitated, banging on nursing station, slamming doors in his room. given IMs x 2, haldol 10 ativan 2 benadryl 50 for first and thorazine 100 for second. 01/01: Remains unpredictable and irritable. Refusing scheduled medications. Section 7/ filed. 01/02: Continue current management. 01/03: refusing meds. irritable, labile. periods of agitation. continue current mgmt, awaiting hearing for . 01/04: refusing meds. irritable, labile. periods of agitation. continue current mgmt, though pt is refusing meds. 8/30: thought-blocked. denies mental illness or need for medications. offer medications. hearing tomorrow. 01/06: committed and ordered medications at hearing. 06/12/20 [facility] [place] reviewd, pt was discharged on VPA, zyprexa, haldol. 03/14/20 DC summary reviewed, pt discharged on zyprexa, haldol. pt unable to comprehend result, agitated not to be leaving today. 01/07: copy of court order on unit, will order meds accordingly today. no change in presentation. 01/08: Continue current regimen and plans 01/09: Continue current plans and regimen. Discontinue contingent IM Ativan if Depakote refused 01/10: Continue current regimen and plans. 01/11: DC VPA, start tegretol per pt preference. ativan 2 mg IM for refusal of tegretol. continue haldol PO/IM orders. improved from last week. less agitated, a bit more organized and engaging. 01/12: appears more disorganized again today, trouble engaging. refused PO meds last night but did take tegretol PO this morning. 01/13: continues disorganized, difficulty expressing himself. refusing PO meds since yesterday morning. slept 10 hours last night, however 01/14: intermittently taking meds PO versus IM. improved behavior from prior to med order, but remains floridly psychotic. continue current mgmt. 01/16/2023: No changes to current plan 01/17: more compliant with tegretol in recent days, still getting haldol IM. no change in presentation. continue current mgmt. 01/18: remains psychotic, labile. increase tegretol to 300 mg BID. 01/19: continues more aggressive and labile today. increase haldol to 10 BID with back-up IM of 7.5 mg. 01/20: more calm today,periods of agitation, however, in the past 24H. continue current mgmt. declines to change scheduled haldol to thorazine (proposed by MD in the hope he would in order to spare him the IMs). 01/21 continue tx. 01/22 writing for thorazine at bed- mr x1 and check ekg given other antipsychotics on board 01/23 agreed to ekg today, added 1pm dose of 5mg haldol 01/24: taking meds PO, still suffering from AH, possibly VH. perhaps trending more calm, but clearly still periods of agitation in the past several days. 01/25: labile, paranoid delusions. informed staff he experiences AH, mumbles recently. increase tegretol to 400 BID, make IR formulation as he has been chewing the pills. 01/26: more calm today. continue current mgmt. 01/27: continues more calm. some staff concerned for akathisia due to pacing and number of PRNs taken, but appears to be doing less walking than he had been before, does not appear restless or uncomfortable. continue current mgmt, check tegretol level 2 weeks after dose change (02/08). 01/28: stable presentation. intermittent sleep disturbance. continue current mgmt. 01/29: Continue current management. Benadryl for allergies 01/30: Continue current plan of care. 01/31: continues to ask for lots of PRNs. no change in presentation. 01/28 mild anemia and hyponatremia; trend. tegretol level 10.3. 02/01: series of abnormal and dynamic EKGs; today's WNL. cardiology consult requested for opinion. will start lithium pending cards opinion re EKG series. no change in presentation. 02/02: appreciate cardiology consultation and opinion. echocardiogram ordered. lithium started. appears better able to tolerate longer interaction today. 02/03: improved ability to tolerate social engagements continues. feels lithium has been helpful. akathisia likely. decrease haldol 02/10/10 to 5 BID and add thorazine 25 BID at 0900 and 1300. 02/04: clear uptick in psychotic.manic behavior yesterday after haldol dose decrease. eloped today. increase thorazine to 100/100/200 with PRNS available. 02/05: no concerning behaviors since elopement yesterday. refused PO haldol last night, otherwise med compliant. 02/06: med-compliant, no concerning behaviors. continue current mgmt. 02/07: check BMP along with lithium level. stable presentation. 02/08: CBC/BMP not concerning. lithium 0.6, tegretol 9.0. increase lithium dosing from 600 BID to 600/900 as of tonight. DC haldol entirely out of concerns for akathisia. invega not a great option due to tegretol interaction. start prolixin PO with IM back-up as alternative neuroleptic to haldol. 02/09: Continue current tx plan. 02/10: increase prolixin from 5 BID to 5 TID. otherwise continue current mgmt. 02/11: continue current mgmt. check labs jeferson of 02/13. 02/12: Continue current plan. Check labs in AM. 02/13: Continue current treatment plan. Li level 0.68, CMZ level 8.6 02/14: Continue current regimen and plans 02/15: increase lithium to 750/900. T/C increasing tegretol in near future as well. gradually seems to be improving. 02/16: stable. continue current mgmt. has broached feeling depressed the past couple of days. 02/17: Continue current tx plan. 02/18: check labs in several days. stable, Sx much improved from prior but still clearly psychotic. 02/20: no changes 02/21: continue current mgmt. check labs soon. still psychotic, endorsing AH. 02/22: no change in presentation. check lithium and tegretol levels tomorrow. 02/23: tegretol 8.3, lithium 0.96. increase tegretol from 400 BID to 400/600 as of tonight. c/o restlessness, concern for akathisia. will review neuroleptics regimen if Sx do not improve in next several days (as might be the case if his restlessness is residual dante). also, AH continue. 02/24: stable. continue current mgmt. assess Sx over next week, then check tegretol level. 02/25: better related, discussed his post-discharge plans. family meeting late next week. continue current regimen, check labs around 03/02. 02/26: Continue plan of care discharge planning 02/27: Patient can not continues much improved states he feels much better without drug use no psychosis. 02/28: +RIS, bizarrely ends interview with MD by just getting up and walking away without a look or a word. increase prolixin 5 TID to 7.5 TID for psychosis. otherwise continue current mgmt. 03/01: continue current mgmt. tired today, stayed in bed. 03/02: tired again, rouses himself to sit up for interview. latency of response, asks MD to repeat question once, but denies AH. continue current mgmt. 03/03: more up and about today. unconvincingly denies AH. continue current mgmt. check labs tonight. 03/04: labs reviewed with pt, that they are reassuring and medication levels are good. tegretol 9.6, lithium 0.76. continue current mgmt. 03/05: Continue current regimen and plans. 03/06: Continue current plans and regimen 03/07: continue current mgmt. mtg btwn SW and pt's family held today. 03/08: Continue current tx plan. 03/09: Patient presents guarded during 1:1. He reports feeling okay today; states he is sleeping well. Isolative. Pt reports he doesn't go to groups because I don't learn anything . Denies SI/HI/VH/AH. Continue current tx plan. 03/10: Patient presents guarded and brief today. He reports feeling good . Pt stated, I don't need anything Denies SI/HI/VH/AH. 03/11: periods of cogency and periods of apparent thought disorganization. denying Sx but appears to still be RIS and distracted. continue current mgmt for now. 03/12 continue same treatment. 03/13 continue same treatment. 03/14: continue current mgmt. plan to streamline medications regimen prior to discharge. T/C prolixin MENDES. 03/15: Continue current treatment plan. 03/16: streamlining meds today. decrease thorazine PRN availability. start prolixin decanoate tomorrow morning, will decrease PO prolixin by about half once the injection is given. continue other medications for now. 03/17: received prolixin DEC 25 mg today. decrease PO prolixin from 7.5 TID to 5 BID, otherwise continue current mgmt. 03/18: Continue current treatment plan. 03/19: continue current mgmt. noted to have hit himself in the thigh twice apparently in frustration, occasionally mumble to himself, and have a minimal outburst at last evening. likely related to transition from PO prolixin to IM decanoate. 03/20: no change in presentation. continue current mgmt. 03/21: stable. continue current mgmt. 03/22: stable. continue current mgmt. next prolixin DEC dose 03/31, DC PO prolixin at that time. 03/23: Continue current tx plan. 03/24: Patient reports feeling more energetic today ; stated he does not need anything . Presents calm, pleasant. denies SI/HI/VH/AH. Continue current tx plan. 03/25: Continue current tx plan. 03/26: Continue current management and treatment plan. 03/28: continue current mgmt. prolixin DEC 03/31, then DC PO prolixin. planning for discharge late next week. 03/29: change thorazine 100/100/200 to 100/300 for ease of administration post-discharge. prolixin DEC 25 on , DC PO prolixin . otherwise continue current mgmt. 03/30: Continue current tx plan. Patient educated on: medication risk/benefits Informed Consent: understands Reason for continued inpatient stay Substantial Risk for: med/psych decompensation Time Spent With Patient Time: Total time managing care of this patient today _20___ minutes.
[2023-03-30] MEDS: fluPHENAZine HCl 5 MG TABLET PO ×2 (08:47→21:58)
[2023-03-30] MEDS: Lithium Carbonate ER 300 MG TABLET.ER PO (08:47)
[2023-03-30] MEDS: chlorproMAZINE HCl 100 MG TABLET PO ×2 (08:47→17:05)
[2023-03-30] MEDS: carBAMazepine 200 MG TABLET 400 MG PO (08:47)
[2023-03-30] MEDS: Lithium Carbonate ER 450 MG TABLET.ER PO (08:47)
[2023-03-30] MEDS: Benztropine Mesylate 1 MG TABLET PO ×2 (08:47→21:58)
[2023-03-30] MEDS: diphenhydrAMINE HCL 25 MG CAPSULE 50 MG PO (17:51)
[2023-03-30 19:55] VITALS: BP 124/74; PULSE 87; RESP 18; TEMP 36.5; O2SAT 99
[2023-03-30] MEDS: Lithium Carbonate ER 450 MG TABLET.ER 900 MG PO (21:57)
[2023-03-30] MEDS: chlorproMAZINE HCl 100 MG TABLET 300 MG PO (21:58)
[2023-03-30] MEDS: carBAMazepine ER 200 MG TAB.ER.12H 600 MG PO (21:58)
[2023-03-31 08:00] VITALS: BP 106/64; PULSE 81; TEMP 36.7; O2SAT 99
--- NOTE | 2023-03-31 08:12 | HO.PSYCHPN ---
Subjective Subjective Date of Service: 03/31/23 Reason For Visit: Psychosis Mental Status Exam Mental Status Exam Narrative: Pt is alert and oriented; behavior is a bit guarded but polite and and calm; dressed in casual attire; mood is described as good ; eye contact appropriate; Speech is normal rate, volume and prosody and not pressured; thought process is organized; otherwise pertinent to relevant topics and without any delusional content, paranoid ideations or grandiosity; denies SI/HI/AH/VH. Diagnostics Vital Signs (24Hr): Vital Signs - 24 hr 03/30/23 19:55 Temperature 97.7 F Pulse Rate 87 Respiratory Rate 18 Blood Pressure 124/74 Pulse Oximetry 99 Oxygen Delivery Method Room Air BMI result Body Mass Index 29.5 Labs 03/03/23 20:10 03/25/23 12:35 Medications Medications Current Medications Acetaminophen (Acetaminophen 325 Mg Tablet) 650 mg PO Q6H PRN PRN Reason: mild pain Last Admin: 03/27/23 20:56 Dose: 650 mg Benztropine Mesylate (Benztropine Mesylate 1 Mg Tablet) 1 mg PO BID [facility] Last Admin: 03/30/23 21:58 Dose: 1 mg Carbamazepine (Carbamazepine 200 Mg Tablet) 400 mg PO DAILY [facility] Last Admin: 03/30/23 08:47 Dose: 400 mg Carbamazepine (Carbamazepine Er 200 Mg Tab.Er.12h) 600 mg PO BEDTIME [facility] Last Admin: 03/30/23 21:58 Dose: 600 mg Chlorpromazine HCl (Chlorpromazine Hcl 100 Mg Tablet) 100 mg PO DAILY PRN PRN Reason: agitation/anxiety Last Admin: 03/30/23 17:05 Dose: 100 mg Chlorpromazine HCl (Chlorpromazine Hcl 100 Mg Tablet) 300 mg PO BEDTIME [facility] Last Admin: 03/30/23 21:58 Dose: 300 mg Chlorpromazine HCl (Chlorpromazine Hcl 100 Mg Tablet) 100 mg PO DAILY [facility] Last Admin: 03/30/23 08:47 Dose: 100 mg Diphenhydramine HCl (Diphenhydramine Hcl 25 Mg Capsule) 50 mg PO Q6H PRN PRN Reason: Allergic Symptoms Last Admin: 03/30/23 17:51 Dose: 50 mg Fluphenazine Decanoate (Fluphenazine Decanoate 25 Mg/Ml 5 Ml Vial) 25 mg IM Q14D@0900 [facility] Last Admin: 03/17/23 09:34 Dose: 25 mg Fluphenazine HCl (Fluphenazine Hcl 2.5 Mg/Ml 10 Ml Vial) 5 mg IM TID PRN PRN Reason: refusal of PO fluphenazine Fluphenazine HCl (Fluphenazine Hcl 5 Mg Tablet) 5 mg PO BID [facility] Stop: 03/31/23 21:00 Last Admin: 03/30/23 21:58 Dose: 5 mg [place] Carbonate ([place] Carbonate Er 450 Mg Tablet.Er) 900 mg PO BEDTIME [facility] Last Admin: 03/30/23 21:57 Dose: 900 mg [place] Carbonate ([place] Carbonate Er 300 Mg Tablet.Er) 300 mg PO DAILY [facility] Last Admin: 03/30/23 08:47 Dose: 300 mg [place] Carbonate ([place] Carbonate Er 450 Mg Tablet.Er) 450 mg PO DAILY [facility] Last Admin: 03/30/23 08:47 Dose: 450 mg Multi-Ingred Cream/Lotion/Oil/Oint (Mineral Oil/Petrolatum,White 106 Gm Tube) 1 appl TOPICAL BID [facility]; Protocol Last Admin: 03/30/23 23:08 Dose: Not Given Allergies Allergies Allergy/AdvReac Type Severity Reaction Status Date / Time morphine [MORPHINE] AdvReac Unknown NAUSEA Verified 12/10/22 19:56 Assessment & Plan Assessment & Plan (1) Nonspecific ST-T wave electrocardiographic changes: Status: Acute Code(s): R94.31 - Abnormal electrocardiogram [ECG] [EKG] Assessment and Plan: Patient with nonspecific ST T wave changes which had dynamic. Unclear significance of these. He has no cardiac symptoms whatsoever. Normal physical exam. The septal Q-waves noted on EKG few days ago and not on yesterday's EKG on most likely due to lead placement and not suggestive for septal infarct. Would suggest an echocardiogram as cooking can be associated with cardiomyopathy. If this is within normal limits no further workup is indicated. There is no issues with use of lithium if it is absolutely necessary to use this to treat his psychiatric condition. No further 0 or other workup is indicated. (2) Cocaine use disorder: Status: Acute Code(s): F14.10 - Cocaine abuse, uncomplicated (3) Schizoaffective disorder, bipolar type: Status: Acute Code(s): F25.0 - Schizoaffective disorder, bipolar type (4) Opioid use disorder: Status: Acute Code(s): F11.90 - Opioid use, unspecified, uncomplicated Plan 12/24: attempt to give anti-psychotics. comfort meds for opioid and cocaine withdrawal. 12/25: refusing medications. period of agitation last night slamming doors and yelling (presumably @[facility]). continue current mgmt. 12/26: refusing meds. binging and purging. floridly psychotic. 12/27: had meds last night for sleep, per his request. schedule all haldol tonight with ativan and cogentin. a bit more interactive today, remains delayed and distracted. no binging/purging behaviors or agitated behaviors described by RN report today. 12/28: refused meds last night. Today asks for meds for sx mgt- aggressive today-threw two coffee cups. Begin Depakote 250 mg bid. 12/29: got multiple meds last NOC and overnight per his request. slept 2 hours. refusing meds this morning. commitment paperwork completed. 3-day notice expires tomorrow. c/o opioid craving, asked for methadone. methadone 30 mg daily started today. 12/30: filed for commitment today. haldol and ativan per his request last night. appears in disbelief that he will not be discharged today. 12/31: demanding to leave, getting agitated, banging on nursing station, slamming doors in his room. given IMs x 2, haldol 10 ativan 2 benadryl 50 for first and thorazine 100 for second. 01/01: Remains unpredictable and irritable. Refusing scheduled medications. Section 7/ filed. 01/02: Continue current management. 01/03: refusing meds. irritable, labile. periods of agitation. continue current mgmt, awaiting hearing for . 01/04: refusing meds. irritable, labile. periods of agitation. continue current mgmt, though pt is refusing meds. 01/05: thought-blocked. denies mental illness or need for medications. offer medications. hearing tomorrow. 01/06: committed and ordered medications at hearing. 06/12/20 [facility] DC summary reviewd, pt was discharged on VPA, zyprexa, haldol. 03/14/20 DC summary reviewed, pt discharged on zyprexa, haldol. pt unable to comprehend result, agitated not to be leaving today. 01/07: copy of court order on unit, will order meds accordingly today. no change in presentation. 01/08: Continue current regimen and plans 01/09: Continue current plans and regimen. Discontinue contingent IM Ativan if Depakote refused 01/10: Continue current regimen and plans. 01/11: DC VPA, start tegretol per pt preference. ativan 2 mg IM for refusal of tegretol. continue haldol PO/IM orders. improved from last week. less agitated, a bit more organized and engaging. 01/12: appears more disorganized again today, trouble engaging. refused PO meds last night but did take tegretol PO this morning. 01/13: continues disorganized, difficulty expressing himself. refusing PO meds since yesterday morning. slept 10 hours last night, however 01/14: intermittently taking meds PO versus IM. improved behavior from prior to med order, but remains floridly psychotic. continue current mgmt. 01/16/2023: No changes to current plan 01/17: more compliant with tegretol in recent days, still getting haldol IM. no change in presentation. continue current mgmt. 01/18: remains psychotic, labile. increase tegretol to 300 mg BID. 01/19: continues more aggressive and labile today. increase haldol to 10 BID with back-up IM of 7.5 mg. 01/20: more calm today,periods of agitation, however, in the past 24H. continue current mgmt. declines to change scheduled haldol to thorazine (proposed by in the hope he would in order to spare him the IMs). 01/21 continue tx. 01/22 writing for thorazine at bed- mr x1 and check ekg given other antipsychotics on board 01/23 agreed to ekg today, added 1pm dose of 5mg haldol 01/24: taking meds PO, still suffering from AH, possibly VH. perhaps trending more calm, but clearly still periods of agitation in the past several days. 01/25: labile, paranoid delusions. informed staff he experiences AH, mumbles recently. increase tegretol to 400 BID, make IR formulation as he has been chewing the pills. 01/26: more calm today. continue current mgmt. 01/27: continues more calm. some staff concerned for akathisia due to pacing and number of PRNs taken, but appears to be doing less walking than he had been before, does not appear restless or uncomfortable. continue current mgmt, check tegretol level 2 weeks after dose change (02/08). 01/28: stable presentation. intermittent sleep disturbance. continue current mgmt. 01/29: Continue current management. Benadryl for allergies 01/30: Continue current plan of care. 01/31: continues to ask for lots of PRNs. no change in presentation. 01/28 mild anemia and hyponatremia; trend. tegretol level 10.3. 02/01: series of abnormal and dynamic EKGs; today's WNL. cardiology consult requested for opinion. will start lithium pending cards opinion re EKG series. no change in presentation. 02/02: appreciate cardiology consultation and opinion. echocardiogram ordered. lithium started. appears better able to tolerate longer interaction today. 02/03: improved ability to tolerate social engagements continues. feels lithium has been helpful. akathisia likely. decrease haldol 02/10/10 to 5 BID and add thorazine 25 BID at 0900 and 1300. 02/04: clear uptick in psychotic.manic behavior yesterday after haldol dose decrease. eloped today. increase thorazine to 100/100/200 with PRNS available. 02/05: no concerning behaviors since elopement yesterday. refused PO haldol last night, otherwise med compliant. 02/06: med-compliant, no concerning behaviors. continue current mgmt. 02/07: check BMP along with lithium level. stable presentation. 02/08: CBC/BMP not concerning. lithium 0.6, tegretol 9.0. increase lithium dosing from 600 BID to 600/900 as of tonight. DC haldol entirely out of concerns for akathisia. invega not a great option due to tegretol interaction. start prolixin PO with IM back-up as alternative neuroleptic to haldol. 02/09: Continue current tx plan. Time Spent With Patient Time: Total time managing care of this patient today ____ minutes.
[2023-03-31] MEDS: carBAMazepine 200 MG TABLET 400 MG PO (10:09)
[2023-03-31] MEDS: fluPHENAZine HCl 5 MG TABLET PO ×2 (10:10→21:07)
[2023-03-31] MEDS: Benztropine Mesylate 1 MG TABLET PO ×2 (10:10→21:08)
[2023-03-31] MEDS: chlorproMAZINE HCl 100 MG TABLET PO (10:10)
[2023-03-31] MEDS: Lithium Carbonate ER 300 MG TABLET.ER PO (10:10)
[2023-03-31] MEDS: Lithium Carbonate ER 450 MG TABLET.ER PO (10:11)
[2023-03-31] MEDS: fluPHENAZine decanoate 25 MG/ML 5 ML VIAL IM (10:43)
--- NOTE | 2023-03-31 13:24 | HO.PSYCHPN ---
Subjective Subjective Date of Service: 03/31/23 Reason For Visit: Psychosis Interim History: met with patient; discussed with team Patient lying in bed, awake on approach. Says he is good and denies any AVH, SI or HI. 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 Staff reports patient appears to be internally preoccupied but otherwise no change in presentation; slept Mental Status Exam Mental Status Exam Narrative: Pt is alert and oriented; behavior is guarded and calm; dressed in casual attire; mood is described as good ; eye contact appropriate; Speech is normal rate, volume and prosody and not pressured; thought process is organized; otherwise pertinent to relevant topics and without any delusional content, paranoid ideations or grandiosity; denies SI/HI/AH/VH. Diagnostics Vital Signs (24Hr): Vital Signs - 24 hr 03/30/23 19:55 03/31/23 08:00 Temperature 97.7 F 98.1 F Pulse Rate 87 81 Respiratory Rate 18 Blood Pressure 124/74 106/64 Pulse Oximetry 99 99 Oxygen Delivery Method Room Air Room Air BMI result Body Mass Index 29.5 Labs 03/03/23 20:10 03/25/23 12:35 Medications Medications Current Medications Acetaminophen (Acetaminophen 325 Mg Tablet) 650 mg PO Q6H PRN PRN Reason: mild pain Last Admin: 03/27/23 20:56 Dose: 650 mg Benztropine Mesylate (Benztropine Mesylate 1 Mg Tablet) 1 mg PO BID [facility] Last Admin: 03/31/23 10:10 Dose: 1 mg Carbamazepine (Carbamazepine 200 Mg Tablet) 400 mg PO DAILY [facility] Last Admin: 03/31/23 10:09 Dose: 400 mg Carbamazepine (Carbamazepine Er 200 Mg Tab.Er.12h) 600 mg PO BEDTIME [facility] Last Admin: 03/30/23 21:58 Dose: 600 mg Chlorpromazine HCl (Chlorpromazine Hcl 100 Mg Tablet) 100 mg PO DAILY PRN PRN Reason: agitation/anxiety Last Admin: 03/30/23 17:05 Dose: 100 mg Chlorpromazine HCl (Chlorpromazine Hcl 100 Mg Tablet) 300 mg PO BEDTIME [facility] Last Admin: 03/30/23 21:58 Dose: 300 mg Chlorpromazine HCl (Chlorpromazine Hcl 100 Mg Tablet) 100 mg PO DAILY [facility] Last Admin: 03/31/23 10:10 Dose: 100 mg Diphenhydramine HCl (Diphenhydramine Hcl 25 Mg Capsule) 50 mg PO Q6H PRN PRN Reason: Allergic Symptoms Last Admin: 03/30/23 17:51 Dose: 50 mg Fluphenazine Decanoate (Fluphenazine Decanoate 25 Mg/Ml 5 Ml Vial) 25 mg IM Q14D@0900 [facility] Last Admin: 03/31/23 10:43 Dose: 25 mg Fluphenazine HCl (Fluphenazine Hcl 2.5 Mg/Ml 10 Ml Vial) 5 mg IM TID PRN PRN Reason: refusal of PO fluphenazine Fluphenazine HCl (Fluphenazine Hcl 5 Mg Tablet) 5 mg PO BID [facility] Stop: 03/31/23 21:00 Last Admin: 03/31/23 10:10 Dose: 5 mg [place] Carbonate ([place] Carbonate Er 450 Mg Tablet.Er) 900 mg PO BEDTIME [facility] Last Admin: 03/30/23 21:57 Dose: 900 mg [place] Carbonate ([place] Carbonate Er 300 Mg Tablet.Er) 300 mg PO DAILY [facility] Last Admin: 03/31/23 10:10 Dose: 300 mg [place] Carbonate ([place] Carbonate Er 450 Mg Tablet.Er) 450 mg PO DAILY [facility] Last Admin: 03/31/23 10:11 Dose: 450 mg Multi-Ingred Cream/Lotion/Oil/Oint (Mineral Oil/Petrolatum,White 106 Gm Tube) 1 appl TOPICAL BID [facility]; Protocol Last Admin: 03/31/23 10:37 Dose: Not Given Allergies Allergies Allergy/AdvReac Type Severity Reaction Status Date / Time morphine [MORPHINE] AdvReac Unknown NAUSEA Verified 12/10/22 19:56 Assessment & Plan Assessment & Plan (1) Nonspecific ST-T wave electrocardiographic changes: Status: Acute Code(s): R94.31 - Abnormal electrocardiogram [ECG] [EKG] (2) Cocaine use disorder: Status: Acute Code(s): F14.10 - Cocaine abuse, uncomplicated (3) Schizoaffective disorder, bipolar type: Status: Acute Code(s): F25.0 - Schizoaffective disorder, bipolar type (4) Opioid use disorder: Status: Acute Code(s): F11.90 - Opioid use, unspecified, uncomplicated Plan 03/09: Patient presents guarded during 1:1. He reports feeling okay today; states he is sleeping well. Isolative. Pt reports he doesn't go to groups because I don't learn anything . Denies SI/HI/VH/AH. Continue current tx plan. 03/10: Patient presents guarded and brief today. He reports feeling good . Pt stated, I don't need anything Denies SI/HI/VH/AH. 03/11: periods of cogency and periods of apparent thought disorganization. denying Sx but appears to still be RIS and distracted. continue current mgmt for now. 03/12 continue same treatment. 03/13 continue same treatment. 03/14: continue current mgmt. plan to streamline medications regimen prior to discharge. T/C prolixin MENDES. 03/15: Continue current treatment plan. 03/16: streamlining meds today. decrease thorazine PRN availability. start prolixin decanoate tomorrow morning, will decrease PO prolixin by about half once the injection is given. continue other medications for now. 03/17: received prolixin DEC 25 mg today. decrease PO prolixin from 7.5 TID to 5 BID, otherwise continue current mgmt. 03/18: Continue current treatment plan. 03/19: continue current mgmt. noted to have hit himself in the thigh twice apparently in frustration, occasionally mumble to himself, and have a minimal outburst at AH last evening. likely related to transition from PO prolixin to IM decanoate. 03/20: no change in presentation. continue current mgmt. 03/21: stable. continue current mgmt. 03/22: stable. continue current mgmt. next prolixin DEC dose 03/31, DC PO prolixin at that time. 03/23: Continue current tx plan. 03/24: Patient reports feeling more energetic today ; stated he does not need anything . Presents calm, pleasant. denies SI/HI/VH/AH. Continue current tx plan. 03/25: Continue current tx plan. 03/26: Continue current management and treatment plan. 03/28: continue current mgmt. prolixin DEC 03/31, then DC PO prolixin. planning for discharge late next week. 03/29: change thorazine 100/100/200 to 100/300 for ease of administration post-discharge. prolixin DEC 25 on , DC PO prolixin . otherwise continue current mgmt. 03/30: Continue current tx plan. 03/31: Continue current treatment plan Patient educated on: diagnosis Informed Consent: understands and further education needed Reason for continued inpatient stay Substantial Risk for: med/psych decompensation Time Spent With Patient Time: Total time managing care of this patient today ____ minutes.
[2023-03-31 21:07] VITALS: BP 116/67; PULSE 81; RESP 18; TEMP 37.3; O2SAT 99
[2023-03-31] MEDS: carBAMazepine ER 200 MG TAB.ER.12H 600 MG PO (21:07)
[2023-03-31] MEDS: Lithium Carbonate ER 450 MG TABLET.ER 900 MG PO (21:08)
[2023-03-31] MEDS: chlorproMAZINE HCl 100 MG TABLET 300 MG PO (21:08)
[2023-04-01 07:35] VITALS: BP 117/71; PULSE 70; RESP 20; TEMP 36.4; O2SAT 99
[2023-04-01] MEDS: Benztropine Mesylate 1 MG TABLET PO ×2 (07:58→22:31)
[2023-04-01] MEDS: Lithium Carbonate ER 300 MG TABLET.ER PO (07:58)
[2023-04-01] MEDS: Lithium Carbonate ER 450 MG TABLET.ER PO (07:59)
[2023-04-01] MEDS: chlorproMAZINE HCl 100 MG TABLET PO ×2 (07:59→14:09)
[2023-04-01] MEDS: carBAMazepine 200 MG TABLET 400 MG PO (07:59)
--- NOTE | 2023-04-01 08:53 | HO.PSYCHPN ---
Subjective Subjective Date of Service: 04/01/23 Reason For Visit: Psychosis Subjective Notes: Conditional Voluntary Interim History: Pt reports he is sleeping through the night. He denies SI/HI. He reports less voices and feeling calmer. He states better. No behavioral concerns. He is taking medications as prescribed. Medication Compliance: Yes Review of Systems Review of Systems Yes all other systems are reviewed and are negative and Unobtainable due to mental status Constitutional: Reports as per HPI Eyes: Reports as per HPI Reports as per HPI Cardiovascular: Reports as per HPI Respiratory: Reports as per HPI Gastrointestinal: Reports as per HPI Genitourinary: Reports as per HPI Musculoskeletal: Reports as per HPI Skin/Breast: Reports as per HPI Reports as per HPI Psychiatric: Reports as per HPI Endocrine: Reports as per HPI Hematologic/Lymphatic: Reports as per HPI Allergic/Immunologic: Reports as per HPI Mental Status Exam Mental Status Exam Patient Appearance: Well Grooomed and Appropriate Patient Orientation: Person and Situation Level of Consciousness: Awake and Appropriate Patient Behavior: Guarded and Cooperative Behavior Comments: can be irritable in pm Mood Description: Withdrawn Affect Description: Constricted Patient Cognition Impaired: Yes Ability to Follow Directions: Good Speech Pattern: Clear Memory Description: Remote Impaired Diagnostics Vital Signs (24Hr): Vital Signs - 24 hr 03/31/23 21:07 04/01/23 07:35 Temperature 99.1 F 97.5 F Pulse Rate 81 70 Respiratory Rate 18 20 Blood Pressure 116/67 117/71 Pulse Oximetry 99 99 Oxygen Delivery Method Room Air Room Air BMI result Body Mass Index 29.5 Labs 03/03/23 20:10 03/25/23 12:35 Medications Medications Current Medications Acetaminophen (Acetaminophen 325 Mg Tablet) 650 mg PO Q6H PRN PRN Reason: mild pain Last Admin: 03/27/23 20:56 Dose: 650 mg Benztropine Mesylate (Benztropine Mesylate 1 Mg Tablet) 1 mg PO BID [facility] Last Admin: 04/01/23 07:58 Dose: 1 mg Carbamazepine (Carbamazepine 200 Mg Tablet) 400 mg PO DAILY [facility] Last Admin: 04/01/23 07:59 Dose: 400 mg Carbamazepine (Carbamazepine Er 200 Mg Tab.Er.12h) 600 mg PO BEDTIME [facility] Last Admin: 03/31/23 21:07 Dose: 600 mg Chlorpromazine HCl (Chlorpromazine Hcl 100 Mg Tablet) 100 mg PO DAILY PRN PRN Reason: agitation/anxiety Last Admin: 03/30/23 17:05 Dose: 100 mg Chlorpromazine HCl (Chlorpromazine Hcl 100 Mg Tablet) 300 mg PO BEDTIME [facility] Last Admin: 03/31/23 21:08 Dose: 300 mg Chlorpromazine HCl (Chlorpromazine Hcl 100 Mg Tablet) 100 mg PO DAILY [facility] Last Admin: 04/01/23 07:59 Dose: 100 mg Diphenhydramine HCl (Diphenhydramine Hcl 25 Mg Capsule) 50 mg PO Q6H PRN PRN Reason: Allergic Symptoms Last Admin: 03/30/23 17:51 Dose: 50 mg Fluphenazine Decanoate (Fluphenazine Decanoate 25 Mg/Ml 5 Ml Vial) 25 mg IM Q14D@0900 [facility] Last Admin: 03/31/23 10:43 Dose: 25 mg Fluphenazine HCl (Fluphenazine Hcl 2.5 Mg/Ml 10 Ml Vial) 5 mg IM TID PRN PRN Reason: refusal of PO fluphenazine [place] Carbonate ([place] Carbonate Er 450 Mg Tablet.Er) 900 mg PO BEDTIME [facility] Last Admin: 03/31/23 21:08 Dose: 900 mg [place] Carbonate ([place] Carbonate Er 300 Mg Tablet.Er) 300 mg PO DAILY [facility] Last Admin: 04/01/23 07:58 Dose: 300 mg [place] Carbonate ([place] Carbonate Er 450 Mg Tablet.Er) 450 mg PO DAILY [facility] Last Admin: 04/01/23 07:59 Dose: 450 mg Multi-Ingred Cream/Lotion/Oil/Oint (Mineral Oil/Petrolatum,White 106 Gm Tube) 1 appl TOPICAL BID [facility]; Protocol Last Admin: 04/01/23 08:03 Dose: Not Given Allergies Allergies Allergy/AdvReac Type Severity Reaction Status Date / Time morphine [MORPHINE] AdvReac Unknown NAUSEA Verified 12/10/22 19:56 Assessment & Plan Assessment & Plan (1) Nonspecific ST-T wave electrocardiographic changes: Status: Acute Code(s): R94.31 - Abnormal electrocardiogram [ECG] [EKG] (2) Cocaine use disorder: Status: Acute Code(s): F14.10 - Cocaine abuse, uncomplicated (3) Schizoaffective disorder, bipolar type: Status: Acute Code(s): F25.0 - Schizoaffective disorder, bipolar type (4) Opioid use disorder: Status: Acute Code(s): F11.90 - Opioid use, unspecified, uncomplicated Plan 03/09: Patient presents guarded during 1:1. He reports feeling okay today; states he is sleeping well. Isolative. Pt reports he doesn't go to groups because I don't learn anything . Denies SI/HI/VH/AH. Continue current tx plan. 03/10: Patient presents guarded and brief today. He reports feeling good . Pt stated, I don't need anything Denies SI/HI/VH/AH. 03/11: periods of cogency and periods of apparent thought disorganization. denying Sx but appears to still be RIS and distracted. continue current mgmt for now. 03/12 continue same treatment. 03/13 continue same treatment. 03/14: continue current mgmt. plan to streamline medications regimen prior to discharge. T/C prolixin MENDES. 03/15: Continue current treatment plan. 03/16: streamlining meds today. decrease thorazine PRN availability. start prolixin decanoate tomorrow morning, will decrease PO prolixin by about half once the injection is given. continue other medications for now. 03/17: received prolixin DEC 25 mg today. decrease PO prolixin from 7.5 TID to 5 BID, otherwise continue current mgmt. 03/18: Continue current treatment plan. 03/19: continue current mgmt. noted to have hit himself in the thigh twice apparently in frustration, occasionally mumble to himself, and have a minimal outburst at [facility] last evening. likely related to transition from PO prolixin to IM decanoate. 03/20: no change in presentation. continue current mgmt. 03/21: stable. continue current mgmt. 03/22: stable. continue current mgmt. next prolixin DEC dose 03/31, DC PO prolixin at that time. 03/23: Continue current tx plan. 03/24: Patient reports feeling more energetic today ; stated he does not need anything . Presents calm, pleasant. denies SI/HI/VH/AH. Continue current tx plan. 03/25: Continue current tx plan. 03/26: Continue current management and treatment plan. 03/28: continue current mgmt. prolixin DEC 03/31, then DC PO prolixin. planning for discharge late next week. 03/29: change thorazine 100/100/200 to 100/300 for ease of administration post-discharge. prolixin MAY 02 on , DC PO prolixin . otherwise continue current mgmt. 03/30: Continue current tx plan. 03/31: Continue current treatment plan 04/01 continue tx. Reason for continued inpatient stay Substantial Risk for: inability to function Time Spent With Patient Time: Total time managing care of this patient today ____ minutes.
[2023-04-01 20:00] VITALS: BP 126/76; PULSE 86; RESP 18; TEMP 36.2; O2SAT 99
[2023-04-01] MEDS: chlorproMAZINE HCl 100 MG TABLET 300 MG PO (22:30)
[2023-04-01] MEDS: carBAMazepine ER 200 MG TAB.ER.12H 600 MG PO (22:30)
[2023-04-01] MEDS: Lithium Carbonate ER 450 MG TABLET.ER 900 MG PO (22:30)
[2023-04-02 07:35] VITALS: BP 120/74; PULSE 87; RESP 16; TEMP 37; O2SAT 95
[2023-04-02] MEDS: carBAMazepine 200 MG TABLET 400 MG PO (09:01)
[2023-04-02] MEDS: chlorproMAZINE HCl 100 MG TABLET PO (09:01)
[2023-04-02] MEDS: Lithium Carbonate ER 450 MG TABLET.ER PO (09:02)
[2023-04-02] MEDS: Benztropine Mesylate 1 MG TABLET PO ×2 (09:02→21:19)
[2023-04-02] MEDS: Lithium Carbonate ER 300 MG TABLET.ER PO (09:03)
--- NOTE | 2023-04-02 14:07 | HO.PSYCHPN ---
Subjective Subjective Date of Service: 04/02/23 Reason For Visit: Psychosis Subjective Notes: Conditional Voluntary Interim History: Pt reports he is sleeping through the night. He denies SI/HI. He reports less voices and feeling calmer. He states better. No behavioral concerns. He is taking medications as prescribed. However, he has been seen self dialoging more. Review of Systems Review of Systems Yes all other systems are reviewed and are negative and Unobtainable due to mental status Constitutional: Reports as per HPI Eyes: Reports as per HPI Reports as per HPI Cardiovascular: Reports as per HPI Respiratory: Reports as per HPI Gastrointestinal: Reports as per HPI Genitourinary: Reports as per HPI Musculoskeletal: Reports as per HPI Skin/Breast: Reports as per HPI Reports as per HPI Psychiatric: Reports as per HPI Endocrine: Reports as per HPI Hematologic/Lymphatic: Reports as per HPI Allergic/Immunologic: Reports as per HPI Mental Status Exam Mental Status Exam Narrative: Pt is alert and oriented; behavior is guarded and calm; dressed in casual attire; mood is described as good ; eye contact appropriate; Speech is normal rate, volume and prosody and not pressured; thought process is organized; otherwise pertinent to relevant topics and without any delusional content, paranoid ideations or grandiosity; denies SI/HI/AH/VH. Patient Appearance: Well Grooomed and Appropriate Patient Orientation: Person and Situation Level of Consciousness: Awake and Appropriate Patient Behavior: Guarded and Cooperative Behavior Comments: can be irritable in pm Mood Description: Withdrawn Affect Description: Constricted Patient Cognition Impaired: Yes Ability to Follow Directions: Good Speech Pattern: Clear Memory Description: Remote Impaired Diagnostics Vital Signs (24Hr): Vital Signs - 24 hr 04/01/23 20:00 04/02/23 07:35 04/02/23 07:35 Temperature 97.2 F 98.6 F 98.6 F Pulse Rate 86 87 87 Respiratory Rate 18 16 16 Blood Pressure 126/76 120/74 120/74 Pulse Oximetry 99 95 95 Oxygen Delivery Method Room Air Room Air Room Air BMI result Body Mass Index 29.5 Labs 03/03/23 20:10 03/25/23 12:35 Medications Medications Current Medications Acetaminophen (Acetaminophen 325 Mg Tablet) 650 mg PO Q6H PRN PRN Reason: mild pain Last Admin: 03/27/23 20:56 Dose: 650 mg Benztropine Mesylate (Benztropine Mesylate 1 Mg Tablet) 1 mg PO BID [facility] Last Admin: 04/02/23 09:02 Dose: 1 mg Carbamazepine (Carbamazepine 200 Mg Tablet) 400 mg PO DAILY [facility] Last Admin: 04/02/23 09:01 Dose: 400 mg Carbamazepine (Carbamazepine Er 200 Mg Tab.Er.12h) 600 mg PO BEDTIME [facility] Last Admin: 04/01/23 22:30 Dose: 600 mg Chlorpromazine HCl (Chlorpromazine Hcl 100 Mg Tablet) 100 mg PO DAILY PRN PRN Reason: agitation/anxiety Last Admin: 04/01/23 14:09 Dose: 100 mg Chlorpromazine HCl (Chlorpromazine Hcl 100 Mg Tablet) 300 mg PO BEDTIME [facility] Last Admin: 04/01/23 22:30 Dose: 300 mg Chlorpromazine HCl (Chlorpromazine Hcl 100 Mg Tablet) 100 mg PO DAILY [facility] Last Admin: 04/02/23 09:01 Dose: 100 mg Diphenhydramine HCl (Diphenhydramine Hcl 25 Mg Capsule) 50 mg PO Q6H PRN PRN Reason: Allergic Symptoms Last Admin: 03/30/23 17:51 Dose: 50 mg Fluphenazine Decanoate (Fluphenazine Decanoate 25 Mg/Ml 5 Ml Vial) 25 mg IM Q14D@0900 [facility] Last Admin: 03/31/23 10:43 Dose: 25 mg Fluphenazine HCl (Fluphenazine Hcl 2.5 Mg/Ml 10 Ml Vial) 5 mg IM TID PRN PRN Reason: refusal of PO fluphenazine [place] Carbonate ([place] Carbonate Er 450 Mg Tablet.Er) 900 mg PO BEDTIME [facility] Last Admin: 04/01/23 22:30 Dose: 900 mg [place] Carbonate ([place] Carbonate Er 300 Mg Tablet.Er) 300 mg PO DAILY [facility] Last Admin: 04/02/23 09:03 Dose: 300 mg [place] Carbonate ([place] Carbonate Er 450 Mg Tablet.Er) 450 mg PO DAILY [facility] Last Admin: 04/02/23 09:02 Dose: 450 mg Multi-Ingred Cream/Lotion/Oil/Oint (Mineral Oil/Petrolatum,White 106 Gm Tube) 1 appl TOPICAL BID [facility]; Protocol Last Admin: 04/02/23 10:29 Dose: Not Given Allergies Allergies Allergy/AdvReac Type Severity Reaction Status Date / Time morphine [MORPHINE] AdvReac Unknown NAUSEA Verified 12/10/22 19:56 Assessment & Plan Assessment & Plan (1) Schizoaffective disorder, bipolar type: Status: Acute Code(s): F25.0 - Schizoaffective disorder, bipolar type (2) Nonspecific ST-T wave electrocardiographic changes: Status: Acute Code(s): R94.31 - Abnormal electrocardiogram [ECG] [EKG] (3) Cocaine use disorder: Status: Acute Code(s): F14.10 - Cocaine abuse, uncomplicated (4) Opioid use disorder: Status: Acute Code(s): F11.90 - Opioid use, unspecified, uncomplicated Plan 03/09: Patient presents guarded during 1:1. He reports feeling okay today; states he is sleeping well. Isolative. Pt reports he doesn't go to groups because I don't learn anything . Denies SI/HI/VH/AH. Continue current tx plan. 03/10: Patient presents guarded and brief today. He reports feeling good . Pt stated, I don't need anything Denies SI/HI/VH/AH. 03/11: periods of cogency and periods of apparent thought disorganization. denying Sx but appears to still be RIS and distracted. continue current mgmt for now. 03/12 continue same treatment. 03/13 continue same treatment. 03/14: continue current mgmt. plan to streamline medications regimen prior to discharge. T/C prolixin MENDES. 03/15: Continue current treatment plan. 03/16: streamlining meds today. decrease thorazine PRN availability. start prolixin decanoate tomorrow morning, will decrease PO prolixin by about half once the injection is given. continue other medications for now. 03/17: received prolixin DEC 25 mg today. decrease PO prolixin from 7.5 TID to 5 BID, otherwise continue current mgmt. 03/18: Continue current treatment plan. 03/19: continue current mgmt. noted to have hit himself in the thigh twice apparently in frustration, occasionally mumble to himself, and have a minimal outburst at last evening. likely related to transition from PO prolixin to IM decanoate. 03/20: no change in presentation. continue current mgmt. 03/21: stable. continue current mgmt. 03/22: stable. continue current mgmt. next prolixin DEC dose 03/31, DC PO prolixin at that time. 03/23: Continue current tx plan. 03/24: Patient reports feeling more energetic today ; stated he does not need anything . Presents calm, pleasant. denies SI/HI/VH/AH. Continue current tx plan. 03/25: Continue current tx plan. 03/26: Continue current management and treatment plan. 03/28: continue current mgmt. prolixin DEC 03/31, then DC PO prolixin. planning for discharge late next week. 03/29: change thorazine 100/100/200 to 100/300 for ease of administration post-discharge. prolixin DEC 25 on , DC PO prolixin . otherwise continue current mgmt. 03/30: Continue current tx plan. 03/31: Continue current treatment plan 04/01 continue tx. 04/02 continue tx. Reason for continued inpatient stay Substantial Risk for: inability to function Time Spent With Patient Time: Total time managing care of this patient today ____ minutes.
[2023-04-02 19:43] VITALS: BP 120/83; PULSE 80; RESP 16; TEMP 36.3; O2SAT 100
[2023-04-02] MEDS: carBAMazepine ER 200 MG TAB.ER.12H 600 MG PO (21:19)
[2023-04-02] MEDS: chlorproMAZINE HCl 100 MG TABLET 300 MG PO (21:19)
[2023-04-02] MEDS: Lithium Carbonate ER 450 MG TABLET.ER 900 MG PO (21:19)
[2023-04-03 07:45] VITALS: BP 112/63; PULSE 89; RESP 16; TEMP 37; O2SAT 100
[2023-04-03] MEDS: carBAMazepine 200 MG TABLET 400 MG PO (09:34)
[2023-04-03] MEDS: chlorproMAZINE HCl 100 MG TABLET PO ×2 (09:34→17:57)
[2023-04-03] MEDS: Benztropine Mesylate 1 MG TABLET PO ×2 (09:34→21:37)
[2023-04-03] MEDS: Lithium Carbonate ER 300 MG TABLET.ER PO (09:34)
[2023-04-03] MEDS: Lithium Carbonate ER 450 MG TABLET.ER PO (09:34)
[2023-04-03] MEDS: polyethylene glycoL 3350 17 GM POWD.PACK PO (11:15)
--- NOTE | 2023-04-03 16:42 | HO.PSYCHPN ---
Subjective Subjective Date of Service: 04/03/23 Reason For Visit: Psychosis Interim History: Pt reports he is sleeping through the night. He denies SI/HI. He reports less voices and feeling calmer. He states better. No behavioral concerns. He is taking medications as prescribed. However, he has been seen self dialoguing more- may due to delay onset of action of prolixin and oral was dced. Review of Systems Review of Systems Yes all other systems are reviewed and are negative and Unobtainable due to mental status Constitutional: Reports as per HPI Eyes: Reports as per HPI Reports as per HPI Cardiovascular: Reports as per HPI Respiratory: Reports as per HPI Gastrointestinal: Reports as per HPI Genitourinary: Reports as per HPI Musculoskeletal: Reports as per HPI Skin/Breast: Reports as per HPI Reports as per HPI Psychiatric: Reports as per HPI Endocrine: Reports as per HPI Hematologic/Lymphatic: Reports as per HPI Allergic/Immunologic: Reports as per HPI Mental Status Exam Mental Status Exam Patient Appearance: Well Grooomed and Appropriate Patient Orientation: Person and Situation Level of Consciousness: Awake and Appropriate Patient Behavior: Guarded and Cooperative Behavior Comments: can be irritable in pm Mood Description: Withdrawn Affect Description: Constricted Patient Cognition Impaired: Yes Ability to Follow Directions: Good Speech Pattern: Clear Memory Description: Remote Impaired Diagnostics Vital Signs (24Hr): Vital Signs - 24 hr 04/02/23 19:43 04/03/23 07:45 Temperature 97.3 F 98.6 F Pulse Rate 80 89 Respiratory Rate 16 16 Blood Pressure 120/83 112/63 Pulse Oximetry 100 100 Oxygen Delivery Method Room Air Room Air BMI result Body Mass Index 29.5 Labs 03/03/23 20:10 03/25/23 12:35 Medications Medications Current Medications Acetaminophen (Acetaminophen 325 Mg Tablet) 650 mg PO Q6H PRN PRN Reason: mild pain Last Admin: 03/27/23 20:56 Dose: 650 mg Benztropine Mesylate (Benztropine Mesylate 1 Mg Tablet) 1 mg PO BID [facility] Last Admin: 04/03/23 09:34 Dose: 1 mg Carbamazepine (Carbamazepine 200 Mg Tablet) 400 mg PO DAILY [facility] Last Admin: 04/03/23 09:34 Dose: 400 mg Carbamazepine (Carbamazepine Er 200 Mg Tab.Er.12h) 600 mg PO BEDTIME [facility] Last Admin: 04/02/23 21:19 Dose: 600 mg Chlorpromazine HCl (Chlorpromazine Hcl 100 Mg Tablet) 100 mg PO DAILY PRN PRN Reason: agitation/anxiety Last Admin: 04/01/23 14:09 Dose: 100 mg Chlorpromazine HCl (Chlorpromazine Hcl 100 Mg Tablet) 300 mg PO BEDTIME [facility] Last Admin: 04/02/23 21:19 Dose: 300 mg Chlorpromazine HCl (Chlorpromazine Hcl 100 Mg Tablet) 100 mg PO DAILY [facility] Last Admin: 04/03/23 09:34 Dose: 100 mg Diphenhydramine HCl (Diphenhydramine Hcl 25 Mg Capsule) 50 mg PO Q6H PRN PRN Reason: Allergic Symptoms Last Admin: 03/30/23 17:51 Dose: 50 mg Fluphenazine Decanoate (Fluphenazine Decanoate 25 Mg/Ml 5 Ml Vial) 25 mg IM Q14D@0900 [facility] Last Admin: 03/31/23 10:43 Dose: 25 mg Fluphenazine HCl (Fluphenazine Hcl 2.5 Mg/Ml 10 Ml Vial) 5 mg IM TID PRN PRN Reason: refusal of PO fluphenazine [place] Carbonate ([place] Carbonate Er 450 Mg Tablet.Er) 900 mg PO BEDTIME [facility] Last Admin: 04/02/23 21:19 Dose: 900 mg [place] Carbonate ([place] Carbonate Er 300 Mg Tablet.Er) 300 mg PO DAILY [facility] Last Admin: 04/03/23 09:34 Dose: 300 mg [place] Carbonate ([place] Carbonate Er 450 Mg Tablet.Er) 450 mg PO DAILY [facility] Last Admin: 04/03/23 09:34 Dose: 450 mg Multi-Ingred Cream/Lotion/Oil/Oint (Mineral Oil/Petrolatum,White 106 Gm Tube) 1 appl TOPICAL BID [facility]; Protocol Last Admin: 04/03/23 10:03 Dose: Not Given Polyethylene Glycol (Polyethylene Glycol 3350 17 Gm Powd.Pack) 17 gm PO DAILY PRN PRN Reason: constipation Last Admin: 04/03/23 11:15 Dose: 17 gm Allergies Allergies Allergy/AdvReac Type Severity Reaction Status Date / Time morphine [MORPHINE] AdvReac Unknown NAUSEA Verified 12/10/22 19:56 Assessment & Plan Assessment & Plan (1) Schizoaffective disorder, bipolar type: Status: Acute Code(s): F25.0 - Schizoaffective disorder, bipolar type (2) Nonspecific ST-T wave electrocardiographic changes: Status: Acute Code(s): R94.31 - Abnormal electrocardiogram [ECG] [EKG] (3) Cocaine use disorder: Status: Acute Code(s): F14.10 - Cocaine abuse, uncomplicated (4) Opioid use disorder: Status: Acute Code(s): F11.90 - Opioid use, unspecified, uncomplicated Plan 03/09: Patient presents guarded during 1:1. He reports feeling okay today; states he is sleeping well. Isolative. Pt reports he doesn't go to groups because I don't learn anything . Denies SI/HI/VH/AH. Continue current tx plan. 03/10: Patient presents guarded and brief today. He reports feeling good . Pt stated, I don't need anything Denies SI/HI/VH/AH. 03/11: periods of cogency and periods of apparent thought disorganization. denying Sx but appears to still be RIS and distracted. continue current mgmt for now. 03/12 continue same treatment. 03/13 continue same treatment. 03/14: continue current mgmt. plan to streamline medications regimen prior to discharge. T/C prolixin MENDES. 03/15: Continue current treatment plan. 03/16: streamlining meds today. decrease thorazine PRN availability. start prolixin decanoate tomorrow morning, will decrease PO prolixin by about half once the injection is given. continue other medications for now. 03/17: received prolixin DEC 25 mg today. decrease PO prolixin from 7.5 TID to 5 BID, otherwise continue current mgmt. 03/18: Continue current treatment plan. 03/19: continue current mgmt. noted to have hit himself in the thigh twice apparently in frustration, occasionally mumble to himself, and have a minimal outburst at last evening. likely related to transition from PO prolixin to IM decanoate. 03/20: no change in presentation. continue current mgmt. 03/21: stable. continue current mgmt. 03/22: stable. continue current mgmt. next prolixin DEC dose 03/31, DC PO prolixin at that time. 03/23: Continue current tx plan. 03/24: Patient reports feeling more energetic today ; stated he does not need anything . Presents calm, pleasant. denies SI/HI/VH/AH. Continue current tx plan. 03/25: Continue current tx plan. 03/26: Continue current management and treatment plan. 03/28: continue current mgmt. prolixin DEC 03/31, then DC PO prolixin. planning for discharge late next week. 03/29: change thorazine 100/100/200 to 100/300 for ease of administration post-discharge. prolixin MAY 02 on , DC PO prolixin . otherwise continue current mgmt. 03/30: Continue current tx plan. 03/31: Continue current treatment plan 04/01 continue tx. 04/02 continue tx. 04/03 continue tx. Reason for continued inpatient stay Substantial Risk for: inability to function Time Spent With Patient Time: Total time managing care of this patient today ____ minutes.
[2023-04-03 19:50] VITALS: BP 126/72; PULSE 79; TEMP 36.5; O2SAT 98
[2023-04-03] MEDS: chlorproMAZINE HCl 100 MG TABLET 300 MG PO (21:37)
[2023-04-03] MEDS: carBAMazepine ER 200 MG TAB.ER.12H 600 MG PO (21:37)
[2023-04-03] MEDS: Lithium Carbonate ER 450 MG TABLET.ER 900 MG PO (21:37)
[2023-04-04 07:15] VITALS: BP 106/65; PULSE 76; RESP 14; TEMP 36.3; O2SAT 99
[2023-04-04] MEDS: Lithium Carbonate ER 450 MG TABLET.ER PO (08:37)
[2023-04-04] MEDS: Lithium Carbonate ER 300 MG TABLET.ER PO (08:37)
[2023-04-04] MEDS: carBAMazepine 200 MG TABLET 400 MG PO (08:37)
[2023-04-04] MEDS: chlorproMAZINE HCl 100 MG TABLET PO ×3 (08:38→16:58)
[2023-04-04] MEDS: Benztropine Mesylate 1 MG TABLET PO ×2 (08:38→22:08)
--- NOTE | 2023-04-04 20:46 | HO.PSYCHPN ---
Subjective Subjective Date of Service: 04/04/23 Reason For Visit: Psychosis Interim History: more labile, RIS today. states he sleeps 6 hours overnight and 4 hours during the day. per staff, more irritable, suspicious, pacing over w/e. worse than he had been in recent weeks. asked for PRN thorazine yesterday. yelling at staff. Mental Status Exam Mental Status Exam Narrative: Pt is alert and oriented; behavior is calm, RIS laughing and talking to self in hallway; dressed in casual attire; mood is described as good; eye contact appropriate; Speech is normal rate, volume and prosody and not pressured; thought process is linear and logical, some HAMLET; otherwise pertinent to relevant topics and without any expressed delusional content, paranoid ideations or grandiosity; no SI/HI/VH expressed. denies AH. Diagnostics Vital Signs (24Hr): Vital Signs - 24 hr 04/04/23 07:15 Temperature 97.3 F Pulse Rate 76 Respiratory Rate 14 Blood Pressure 106/65 Pulse Oximetry 99 Oxygen Delivery Method Room Air BMI result Body Mass Index 29.5 Labs 03/03/23 20:10 03/25/23 12:35 Medications Medications Current Medications Acetaminophen (Acetaminophen 325 Mg Tablet) 650 mg PO Q6H PRN PRN Reason: mild pain Last Admin: 03/27/23 20:56 Dose: 650 mg Benztropine Mesylate (Benztropine Mesylate 1 Mg Tablet) 1 mg PO BID [facility] Last Admin: 04/04/23 08:38 Dose: 1 mg Carbamazepine (Carbamazepine 200 Mg Tablet) 400 mg PO DAILY [facility] Last Admin: 04/04/23 08:37 Dose: 400 mg Carbamazepine (Carbamazepine Er 200 Mg Tab.Er.12h) 600 mg PO BEDTIME [facility] Last Admin: 04/03/23 21:37 Dose: 600 mg Chlorpromazine HCl (Chlorpromazine Hcl 100 Mg Tablet) 400 mg PO BEDTIME [facility] Chlorpromazine HCl (Chlorpromazine Hcl 100 Mg Tablet) 100 mg PO Q4H PRN PRN Reason: agitation/anxiety Last Admin: 04/04/23 16:58 Dose: 100 mg Diphenhydramine HCl (Diphenhydramine Hcl 25 Mg Capsule) 50 mg PO Q6H PRN PRN Reason: Allergic Symptoms Last Admin: 03/30/23 17:51 Dose: 50 mg Fluphenazine Decanoate (Fluphenazine Decanoate 25 Mg/Ml 5 Ml Vial) 25 mg IM Q14D@0900 [facility] Last Admin: 03/31/23 10:43 Dose: 25 mg Fluphenazine HCl (Fluphenazine Hcl 2.5 Mg/Ml 10 Ml Vial) 5 mg IM TID PRN PRN Reason: refusal of PO fluphenazine [place] Carbonate ([place] Carbonate Er 450 Mg Tablet.Er) 900 mg PO BEDTIME [facility] Last Admin: 04/03/23 21:37 Dose: 900 mg [place] Carbonate ([place] Carbonate Er 300 Mg Tablet.Er) 300 mg PO DAILY [facility] Last Admin: 04/04/23 08:37 Dose: 300 mg [place] Carbonate ([place] Carbonate Er 450 Mg Tablet.Er) 450 mg PO DAILY [facility] Last Admin: 04/04/23 08:37 Dose: 450 mg Multi-Ingred Cream/Lotion/Oil/Oint (Mineral Oil/Petrolatum,White 106 Gm Tube) 1 appl TOPICAL BID [facility]; Protocol Last Admin: 04/04/23 08:40 Dose: Not Given Polyethylene Glycol (Polyethylene Glycol 3350 17 Gm Powd.Pack) 17 gm PO DAILY PRN PRN Reason: constipation Last Admin: 04/03/23 11:15 Dose: 17 gm Allergies Allergies Allergy/AdvReac Type Severity Reaction Status Date / Time morphine [MORPHINE] AdvReac Unknown NAUSEA Verified 12/10/22 19:56 Assessment & Plan Assessment & Plan (1) Schizoaffective disorder, bipolar type: Status: Acute Code(s): F25.0 - Schizoaffective disorder, bipolar type (2) Nonspecific ST-T wave electrocardiographic changes: Status: Acute Code(s): R94.31 - Abnormal electrocardiogram [ECG] [EKG] (3) Cocaine use disorder: Status: Acute Code(s): F14.10 - Cocaine abuse, uncomplicated (4) Opioid use disorder: Status: Acute Code(s): F11.90 - Opioid use, unspecified, uncomplicated Plan 03/09: Patient presents guarded during 1:1. He reports feeling okay today; states he is sleeping well. Isolative. Pt reports he doesn't go to groups because I don't learn anything . Denies SI/HI/VH/AH. Continue current tx plan. 03/10: Patient presents guarded and brief today. He reports feeling good . Pt stated, I don't need anything Denies SI/HI/VH/AH. 03/11: periods of cogency and periods of apparent thought disorganization. denying Sx but appears to still be RIS and distracted. continue current mgmt for now. 03/12 continue same treatment. 03/13 continue same treatment. 03/14: continue current mgmt. plan to streamline medications regimen prior to discharge. T/C prolixin MENDES. 03/15: Continue current treatment plan. 03/16: streamlining meds today. decrease thorazine PRN availability. start prolixin decanoate tomorrow morning, will decrease PO prolixin by about half once the injection is given. continue other medications for now. 03/17: received prolixin DEC 25 mg today. decrease PO prolixin from 7.5 TID to 5 BID, otherwise continue current mgmt. 03/18: Continue current treatment plan. 03/19: continue current mgmt. noted to have hit himself in the thigh twice apparently in frustration, occasionally mumble to himself, and have a minimal outburst at [facility] last evening. likely related to transition from PO prolixin to IM decanoate. 03/20: no change in presentation. continue current mgmt. 03/21: stable. continue current mgmt. 03/22: stable. continue current mgmt. next prolixin DEC dose 03/31, DC PO prolixin at that time. 03/23: Continue current tx plan. 03/24: Patient reports feeling more energetic today ; stated he does not need anything . Presents calm, pleasant. denies SI/HI/VH/AH. Continue current tx plan. 03/25: Continue current tx plan. 03/26: Continue current management and treatment plan. 03/28: continue current mgmt. prolixin DEC 03/31, then DC PO prolixin. planning for discharge late next week. 03/29: change thorazine 100/100/200 to 100/300 for ease of administration post-discharge. prolixin DEC 25 on , DC PO prolixin . otherwise continue current mgmt. 03/30: Continue current tx plan. 03/31: Continue current treatment plan 04/01 continue tx. 04/02 continue tx. 04/03 continue tx. 04/04: increase availability of thorazine to 100 Q4H PRN agitation. some decompensation since second prolixin dec shot and discontinuation of PO fluphenazine. continue current mgmt, wait for MENDES to increase its effect. Reason for continued inpatient stay Substantial Risk for: harm to self, harm to others, inability to function and rapid decompensation Time Spent With Patient Time: Total time managing care of this patient today __35__ minutes.
[2023-04-04 22:05] VITALS: BP 142/82; PULSE 98; TEMP 36.5; O2SAT 98
[2023-04-04] MEDS: Lithium Carbonate ER 450 MG TABLET.ER 900 MG PO (22:09)
[2023-04-04] MEDS: chlorproMAZINE HCl 100 MG TABLET 400 MG PO (22:09)
[2023-04-04] MEDS: carBAMazepine ER 200 MG TAB.ER.12H 600 MG PO (22:09)
[2023-04-05 08:22] VITALS: BP 119/73; PULSE 81; RESP 16; TEMP 36.7; O2SAT 97
[2023-04-05] MEDS: Lithium Carbonate ER 300 MG TABLET.ER PO (08:29)
[2023-04-05] MEDS: Lithium Carbonate ER 450 MG TABLET.ER PO (08:29)
[2023-04-05] MEDS: carBAMazepine 200 MG TABLET 400 MG PO (08:29)
[2023-04-05] MEDS: Benztropine Mesylate 1 MG TABLET PO ×2 (08:29→22:02)
--- NOTE | 2023-04-05 15:37 | P.PNPSI_ITS ---
Subjective Subjective Date of Service: 04/05/23 Reason For Visit: Psychosis Interim History: calm, cooperative. talking loudly to himself in bathroom. denies AH. no complaints or requests. Mental Status Exam Mental Status Exam Narrative: Pt is alert and oriented; behavior is calm, RIS laughing and talking to self in bathroom; dressed in casual attire; mood is described as good; eye contact appropriate; Speech is normal rate, volume and prosody and not pressured; thought process is linear and logical, some HAMLET; otherwise pertinent to relevant topics and without any expressed delusional content, paranoid ideations or grandiosity; no SI/HI/VH expressed. denies AH. Diagnostics Vital Signs (24Hr): Vital Signs - 24 hr 04/04/23 22:05 04/05/23 08:22 Temperature 97.7 F 98.1 F Pulse Rate 98 81 Respiratory Rate 16 Blood Pressure 142/82 H 119/73 Pulse Oximetry 98 97 Oxygen Delivery Method Room Air Room Air BMI result Body Mass Index 29.5 Labs 03/03/23 20:10 03/25/23 12:35 Medications Medications Current Medications Acetaminophen (Acetaminophen 325 Mg Tablet) 650 mg PO Q6H PRN PRN Reason: mild pain Last Admin: 03/27/23 20:56 Dose: 650 mg Benztropine Mesylate (Benztropine Mesylate 1 Mg Tablet) 1 mg PO BID [facility] Last Admin: 04/05/23 08:29 Dose: 1 mg Carbamazepine (Carbamazepine 200 Mg Tablet) 400 mg PO DAILY [facility] Last Admin: 04/05/23 08:29 Dose: 400 mg Carbamazepine (Carbamazepine Er 200 Mg Tab.Er.12h) 600 mg PO BEDTIME [facility] Last Admin: 04/04/23 22:09 Dose: 600 mg Chlorpromazine HCl (Chlorpromazine Hcl 100 Mg Tablet) 400 mg PO BEDTIME [facility] Last Admin: 04/04/23 22:09 Dose: 400 mg Chlorpromazine HCl (Chlorpromazine Hcl 100 Mg Tablet) 100 mg PO Q4H PRN PRN Reason: agitation/anxiety Last Admin: 04/04/23 16:58 Dose: 100 mg Diphenhydramine HCl (Diphenhydramine Hcl 25 Mg Capsule) 50 mg PO Q6H PRN PRN Reason: Allergic Symptoms Last Admin: 03/30/23 17:51 Dose: 50 mg Fluphenazine Decanoate (Fluphenazine Decanoate 25 Mg/Ml 5 Ml Vial) 25 mg IM Q14D@0900 [facility] Last Admin: 03/31/23 10:43 Dose: 25 mg Fluphenazine HCl (Fluphenazine Hcl 2.5 Mg/Ml 10 Ml Vial) 5 mg IM TID PRN PRN Reason: refusal of PO fluphenazine [place] Carbonate ([place] Carbonate Er 450 Mg Tablet.Er) 900 mg PO BEDTIME [facility] Last Admin: 04/04/23 22:09 Dose: 900 mg [place] Carbonate ([place] Carbonate Er 300 Mg Tablet.Er) 300 mg PO DAILY [facility] Last Admin: 04/05/23 08:29 Dose: 300 mg [place] Carbonate ([place] Carbonate Er 450 Mg Tablet.Er) 450 mg PO DAILY [facility] Last Admin: 04/05/23 08:29 Dose: 450 mg Multi-Ingred Cream/Lotion/Oil/Oint (Mineral Oil/Petrolatum,White 106 Gm Tube) 1 appl TOPICAL BID [facility]; Protocol Last Admin: 04/05/23 08:30 Dose: Not Given Polyethylene Glycol (Polyethylene Glycol 3350 17 Gm Powd.Pack) 17 gm PO DAILY PRN PRN Reason: constipation Last Admin: 04/03/23 11:15 Dose: 17 gm Allergies Allergies Allergy/AdvReac Type Severity Reaction Status Date / Time morphine [MORPHINE] AdvReac Unknown NAUSEA Verified 12/10/22 19:56 Assessment & Plan Assessment & Plan (1) Schizoaffective disorder, bipolar type: Status: Acute Code(s): F25.0 - Schizoaffective disorder, bipolar type (2) Nonspecific ST-T wave electrocardiographic changes: Status: Acute Code(s): R94.31 - Abnormal electrocardiogram [ECG] [EKG] (3) Cocaine use disorder: Status: Acute Code(s): F14.10 - Cocaine abuse, uncomplicated (4) Opioid use disorder: Status: Acute Code(s): F11.90 - Opioid use, unspecified, uncomplicated Plan 03/09: Patient presents guarded during 1:1. He reports feeling okay today; states he is sleeping well. Isolative. Pt reports he doesn't go to groups because I don't learn anything . Denies SI/HI/VH/AH. Continue current tx plan. 03/10: Patient presents guarded and brief today. He reports feeling good . Pt stated, I don't need anything Denies SI/HI/VH/AH. 03/11: periods of cogency and periods of apparent thought disorganization. denying Sx but appears to still be RIS and distracted. continue current mgmt for now. 03/12 continue same treatment. 03/13 continue same treatment. 03/14: continue current mgmt. plan to streamline medications regimen prior to discharge. T/C prolixin MENDES. 03/15: Continue current treatment plan. 03/16: streamlining meds today. decrease thorazine PRN availability. start prolixin decanoate tomorrow morning, will decrease PO prolixin by about half once the injection is given. continue other medications for now. 03/17: received prolixin DEC 25 mg today. decrease PO prolixin from 7.5 TID to 5 BID, otherwise continue current mgmt. 03/18: Continue current treatment plan. 03/19: continue current mgmt. noted to have hit himself in the thigh twice apparently in frustration, occasionally mumble to himself, and have a minimal outburst at AH last evening. likely related to transition from PO prolixin to IM decanoate. 03/20: no change in presentation. continue current mgmt. 03/21: stable. continue current mgmt. 03/22: stable. continue current mgmt. next prolixin DEC dose 03/31, DC PO prolixin at that time. 03/23: Continue current tx plan. 03/24: Patient reports feeling more energetic today ; stated he does not need anything . Presents calm, pleasant. denies SI/HI/VH/AH. Continue current tx plan. 03/25: Continue current tx plan. 03/26: Continue current management and treatment plan. 03/28: continue current mgmt. prolixin DEC 03/31, then DC PO prolixin. planning for discharge late next week. 03/29: change thorazine 100/100/200 to 100/300 for ease of administration post- discharge. prolixin DEC 25 on , DC PO prolixin . otherwise continue current mgmt. 03/30: Continue current tx plan. 03/31: Continue current treatment plan 04/01 continue tx. 04/02 continue tx. 04/03 continue tx. 04/04: increase availability of thorazine to 100 Q4H PRN agitation. some decompensation since second prolixin dec shot and discontinuation of PO fluphenazine. continue current mgmt, wait for MENDES to increase its effect. 04/05: continues with exacerbated psychotic Sx since DC of PO prolixin and initiation of MENDES. continue current mgmt. Reason for continued inpatient stay Substantial Risk for: inability to function and rapid decompensation Time Spent With Patient Time: Total time managing care of this patient today ____ minutes.
[2023-04-05 19:45] VITALS: BP 130/77; PULSE 94; RESP 16; TEMP 36.6; O2SAT 97
[2023-04-05] MEDS: carBAMazepine ER 200 MG TAB.ER.12H 600 MG PO (22:00)
[2023-04-05] MEDS: chlorproMAZINE HCl 100 MG TABLET 400 MG PO (22:00)
[2023-04-05] MEDS: Lithium Carbonate ER 450 MG TABLET.ER 900 MG PO (22:01)
[2023-04-06 08:05] VITALS: BP 135/76; PULSE 78; RESP 20; TEMP 36.3; O2SAT 99
[2023-04-06] MEDS: Lithium Carbonate ER 450 MG TABLET.ER PO (08:18)
[2023-04-06] MEDS: Benztropine Mesylate 1 MG TABLET PO ×2 (08:18→22:13)
[2023-04-06] MEDS: carBAMazepine 200 MG TABLET 400 MG PO (08:18)
[2023-04-06] MEDS: Lithium Carbonate ER 300 MG TABLET.ER PO (08:19)
--- NOTE | 2023-04-06 14:32 | P.PNPSI_ITS ---
Subjective Subjective Date of Service: 04/06/23 Reason For Visit: Psychosis Interim History: no complaints, stable. appears to have trouble attending or integrating information. per staff, flat, pacing, guarded. Mental Status Exam Mental Status Exam Narrative: Pt is alert and oriented; behavior is calm; dressed in casual attire; mood is described as good; eye contact appropriate; Speech is normal rate, volume and prosody and not pressured; thought process is linear and logical, some HAMLET or poor attention; otherwise pertinent to relevant topics and without any expressed delusional content, paranoid ideations or grandiosity; no SI/HI/VH expressed. denies AH. Diagnostics Vital Signs (24Hr): Vital Signs - 24 hr 04/05/23 19:45 04/06/23 08:05 Temperature 97.8 F 97.4 F Pulse Rate 94 78 Respiratory Rate 16 20 Blood Pressure 130/77 135/76 Pulse Oximetry 97 99 Oxygen Delivery Method Room Air Room Air BMI result Body Mass Index 29.5 Labs 03/03/23 20:10 03/25/23 12:35 Medications Medications Current Medications Acetaminophen (Acetaminophen 325 Mg Tablet) 650 mg PO Q6H PRN PRN Reason: mild pain Last Admin: 03/27/23 20:56 Dose: 650 mg Benztropine Mesylate (Benztropine Mesylate 1 Mg Tablet) 1 mg PO BID [facility] Last Admin: 04/06/23 08:18 Dose: 1 mg Carbamazepine (Carbamazepine 200 Mg Tablet) 400 mg PO DAILY [facility] Last Admin: 04/06/23 08:18 Dose: 400 mg Carbamazepine (Carbamazepine Er 200 Mg Tab.Er.12h) 600 mg PO BEDTIME [facility] Last Admin: 04/05/23 22:00 Dose: 600 mg Chlorpromazine HCl (Chlorpromazine Hcl 100 Mg Tablet) 400 mg PO BEDTIME [facility] Last Admin: 04/05/23 22:00 Dose: 400 mg Chlorpromazine HCl (Chlorpromazine Hcl 100 Mg Tablet) 100 mg PO Q4H PRN PRN Reason: agitation/anxiety Last Admin: 04/04/23 16:58 Dose: 100 mg Diphenhydramine HCl (Diphenhydramine Hcl 25 Mg Capsule) 50 mg PO Q6H PRN PRN Reason: Allergic Symptoms Last Admin: 03/30/23 17:51 Dose: 50 mg Fluphenazine Decanoate (Fluphenazine Decanoate 25 Mg/Ml 5 Ml Vial) 25 mg IM Q14D@0900 [facility] Last Admin: 03/31/23 10:43 Dose: 25 mg Fluphenazine HCl (Fluphenazine Hcl 2.5 Mg/Ml 10 Ml Vial) 5 mg IM TID PRN PRN Reason: refusal of PO fluphenazine [place] Carbonate ([place] Carbonate Er 450 Mg Tablet.Er) 900 mg PO BEDTIME [facility] Last Admin: 04/05/23 22:01 Dose: 900 mg [place] Carbonate ([place] Carbonate Er 300 Mg Tablet.Er) 300 mg PO DAILY [facility] Last Admin: 04/06/23 08:19 Dose: 300 mg [place] Carbonate ([place] Carbonate Er 450 Mg Tablet.Er) 450 mg PO DAILY [facility] Last Admin: 04/06/23 08:18 Dose: 450 mg Multi-Ingred Cream/Lotion/Oil/Oint (Mineral Oil/Petrolatum,White 106 Gm Tube) 1 appl TOPICAL BID [facility]; Protocol Last Admin: 04/06/23 08:20 Dose: Not Given Polyethylene Glycol (Polyethylene Glycol 3350 17 Gm Powd.Pack) 17 gm PO DAILY PRN PRN Reason: constipation Last Admin: 04/03/23 11:15 Dose: 17 gm Allergies Allergies Allergy/AdvReac Type Severity Reaction Status Date / Time morphine [MORPHINE] AdvReac Unknown NAUSEA Verified 12/10/22 19:56 Assessment & Plan Assessment & Plan (1) Schizoaffective disorder, bipolar type: Status: Acute Code(s): F25.0 - Schizoaffective disorder, bipolar type (2) Nonspecific ST-T wave electrocardiographic changes: Status: Acute Code(s): R94.31 - Abnormal electrocardiogram [ECG] [EKG] (3) Cocaine use disorder: Status: Acute Code(s): F14.10 - Cocaine abuse, uncomplicated (4) Opioid use disorder: Status: Acute Code(s): F11.90 - Opioid use, unspecified, uncomplicated Plan 03/09: Patient presents guarded during 1:1. He reports feeling okay today; states he is sleeping well. Isolative. Pt reports he doesn't go to groups because I don't learn anything . Denies SI/HI/VH/AH. Continue current tx plan. 03/10: Patient presents guarded and brief today. He reports feeling good . Pt stated, I don't need anything Denies SI/HI/VH/AH. 03/11: periods of cogency and periods of apparent thought disorganization. denying Sx but appears to still be RIS and distracted. continue current mgmt for now. 03/12 continue same treatment. 03/13 continue same treatment. 03/14: continue current mgmt. plan to streamline medications regimen prior to discharge. T/C prolixin MENDES. 03/15: Continue current treatment plan. 03/16: streamlining meds today. decrease thorazine PRN availability. start prolixin decanoate tomorrow morning, will decrease PO prolixin by about half once the injection is given. continue other medications for now. 03/17: received prolixin DEC 25 mg today. decrease PO prolixin from 7.5 TID to 5 BID, otherwise continue current mgmt. 03/18: Continue current treatment plan. 03/19: continue current mgmt. noted to have hit himself in the thigh twice apparently in frustration, occasionally mumble to himself, and have a minimal outburst at last evening. likely related to transition from PO prolixin to IM decanoate. 03/20: no change in presentation. continue current mgmt. 03/21: stable. continue current mgmt. 03/22: stable. continue current mgmt. next prolixin DEC dose 03/31, DC PO prolixin at that time. 03/23: Continue current tx plan. 03/24: Patient reports feeling more energetic today ; stated he does not need anything . Presents calm, pleasant. denies SI/HI/VH/AH. Continue current tx plan. 03/25: Continue current tx plan. 03/26: Continue current management and treatment plan. 03/28: continue current mgmt. prolixin DEC 03/31, then DC PO prolixin. planning for discharge late next week. 03/29: change thorazine 100/100/200 to 100/300 for ease of administration post- discharge. prolixin DEC 25 on , DC PO prolixin . otherwise continue current mgmt. 03/30: Continue current tx plan. 03/31: Continue current treatment plan 04/01 continue tx. 04/02 continue tx. 04/03 continue tx. 04/04: increase availability of thorazine to 100 Q4H PRN agitation. some decompensation since second prolixin dec shot and discontinuation of PO fluphenazine. continue current mgmt, wait for MENDES to increase its effect. 04/05: continues with exacerbated psychotic Sx since DC of PO prolixin and initiation of MENDES. continue current mgmt. 04/06: perhaps less overtly psychotic than past couple of days. continue current mgmt. Reason for continued inpatient stay Substantial Risk for: inability to function and rapid decompensation Time Spent With Patient Time: Total time managing care of this patient today __25__ minutes.
[2023-04-06 19:50] VITALS: BP 142/64; PULSE 76; RESP 18; TEMP 36.5; O2SAT 95
[2023-04-06] MEDS: carBAMazepine ER 200 MG TAB.ER.12H 600 MG PO (22:13)
[2023-04-06] MEDS: chlorproMAZINE HCl 100 MG TABLET 400 MG PO (22:13)
[2023-04-06] MEDS: Lithium Carbonate ER 450 MG TABLET.ER 900 MG PO (22:13)
[2023-04-07 07:00] VITALS: BMI 30.3
[2023-04-07 07:40] VITALS: BP 114/68; PULSE 80; RESP 18; TEMP 36.8; O2SAT 95
[2023-04-07] MEDS: Lithium Carbonate ER 300 MG TABLET.ER PO (09:37)
[2023-04-07] MEDS: Benztropine Mesylate 1 MG TABLET PO ×2 (09:37→22:22)
[2023-04-07] MEDS: Lithium Carbonate ER 450 MG TABLET.ER PO (09:37)
[2023-04-07] MEDS: carBAMazepine 200 MG TABLET 400 MG PO (09:37)
--- NOTE | 2023-04-07 15:28 | HO.PSYCHPN ---
Subjective Subjective Date of Service: 04/07/23 Reason For Visit: Psychosis Interim History: calm, cooperative. one observed RIS. appears somewhat less distracted today. reports he did awaken multiple times in the night but characterized his sleep as good. per staff, continues moderately decompensated from a week to two weeks ago. appeared to have not slept well overnight, with frequent awakenings. Mental Status Exam Mental Status Exam Narrative: Pt is alert and oriented; behavior is calm; dressed in casual attire; mood is described as good; eye contact appropriate; Speech is normal rate, volume and prosody and not pressured; thought process is linear and logical, some HAMLET or poor attention; otherwise pertinent to relevant topics and without any expressed delusional content, paranoid ideations or grandiosity; no SI/HI/VH expressed. denies AH. Diagnostics Vital Signs (24Hr): Vital Signs - 24 hr 04/06/23 19:50 04/07/23 07:40 Temperature 97.7 F 98.3 F Pulse Rate 76 80 Respiratory Rate 18 18 Blood Pressure 142/64 H 114/68 Pulse Oximetry 95 95 Oxygen Delivery Method Room Air Room Air BMI result Body Mass Index 30.3 Labs 03/03/23 20:10 03/25/23 12:35 Medications Medications Current Medications Acetaminophen (Acetaminophen 325 Mg Tablet) 650 mg PO Q6H PRN PRN Reason: mild pain Last Admin: 03/27/23 20:56 Dose: 650 mg Benztropine Mesylate (Benztropine Mesylate 1 Mg Tablet) 1 mg PO BID [facility] Last Admin: 04/07/23 09:37 Dose: 1 mg Carbamazepine (Carbamazepine 200 Mg Tablet) 400 mg PO DAILY [facility] Last Admin: 04/07/23 09:37 Dose: 400 mg Carbamazepine (Carbamazepine Er 200 Mg Tab.Er.12h) 600 mg PO BEDTIME [facility] Last Admin: 04/06/23 22:13 Dose: 600 mg Chlorpromazine HCl (Chlorpromazine Hcl 100 Mg Tablet) 400 mg PO BEDTIME [facility] Last Admin: 04/06/23 22:13 Dose: 400 mg Chlorpromazine HCl (Chlorpromazine Hcl 100 Mg Tablet) 100 mg PO Q4H PRN PRN Reason: agitation/anxiety Last Admin: 04/04/23 16:58 Dose: 100 mg Diphenhydramine HCl (Diphenhydramine Hcl 25 Mg Capsule) 50 mg PO Q6H PRN PRN Reason: Allergic Symptoms Last Admin: 03/30/23 17:51 Dose: 50 mg Fluphenazine Decanoate (Fluphenazine Decanoate 25 Mg/Ml 5 Ml Vial) 25 mg IM Q14D@0900 [facility] Last Admin: 03/31/23 10:43 Dose: 25 mg Fluphenazine HCl (Fluphenazine Hcl 2.5 Mg/Ml 10 Ml Vial) 5 mg IM TID PRN PRN Reason: refusal of PO fluphenazine [place] Carbonate ([place] Carbonate Er 450 Mg Tablet.Er) 900 mg PO BEDTIME [facility] Last Admin: 04/06/23 22:13 Dose: 900 mg [place] Carbonate ([place] Carbonate Er 300 Mg Tablet.Er) 300 mg PO DAILY [facility] Last Admin: 04/07/23 09:37 Dose: 300 mg [place] Carbonate ([place] Carbonate Er 450 Mg Tablet.Er) 450 mg PO DAILY [facility] Last Admin: 04/07/23 09:37 Dose: 450 mg Multi-Ingred Cream/Lotion/Oil/Oint (Mineral Oil/Petrolatum,White 106 Gm Tube) 1 appl TOPICAL BID [facility]; Protocol Last Admin: 04/07/23 09:38 Dose: Not Given Polyethylene Glycol (Polyethylene Glycol 3350 17 Gm Powd.Pack) 17 gm PO DAILY PRN PRN Reason: constipation Last Admin: 04/03/23 11:15 Dose: 17 gm Allergies Allergies Allergy/AdvReac Type Severity Reaction Status Date / Time morphine [MORPHINE] AdvReac Unknown NAUSEA Verified 12/10/22 19:56 Assessment & Plan Assessment & Plan (1) Schizoaffective disorder, bipolar type: Status: Acute Code(s): F25.0 - Schizoaffective disorder, bipolar type (2) Nonspecific ST-T wave electrocardiographic changes: Status: Acute Code(s): R94.31 - Abnormal electrocardiogram [ECG] [EKG] (3) Cocaine use disorder: Status: Acute Code(s): F14.10 - Cocaine abuse, uncomplicated (4) Opioid use disorder: Status: Acute Code(s): F11.90 - Opioid use, unspecified, uncomplicated Plan 03/09: Patient presents guarded during 1:1. He reports feeling okay today; states he is sleeping well. Isolative. Pt reports he doesn't go to groups because I don't learn anything . Denies SI/HI/VH/AH. Continue current tx plan. 03/10: Patient presents guarded and brief today. He reports feeling good . Pt stated, I don't need anything Denies SI/HI/VH/AH. 03/11: periods of cogency and periods of apparent thought disorganization. denying Sx but appears to still be RIS and distracted. continue current mgmt for now. 03/12 continue same treatment. 03/13 continue same treatment. 03/14: continue current mgmt. plan to streamline medications regimen prior to discharge. T/C prolixin MENDES. 03/15: Continue current treatment plan. 03/16: streamlining meds today. decrease thorazine PRN availability. start prolixin decanoate tomorrow morning, will decrease PO prolixin by about half once the injection is given. continue other medications for now. 03/17: received prolixin DEC 25 mg today. decrease PO prolixin from 7.5 TID to 5 BID, otherwise continue current mgmt. 03/18: Continue current treatment plan. 03/19: continue current mgmt. noted to have hit himself in the thigh twice apparently in frustration, occasionally mumble to himself, and have a minimal outburst at [facility] last evening. likely related to transition from PO prolixin to IM decanoate. 03/20: no change in presentation. continue current mgmt. 03/21: stable. continue current mgmt. 03/22: stable. continue current mgmt. next prolixin DEC dose 03/31, DC PO prolixin at that time. 03/23: Continue current tx plan. 03/24: Patient reports feeling more energetic today ; stated he does not need anything . Presents calm, pleasant. denies SI/HI/VH/AH. Continue current tx plan. 03/25: Continue current tx plan. 03/26: Continue current management and treatment plan. 03/28: continue current mgmt. prolixin DEC 03/31, then DC PO prolixin. planning for discharge late next week. 03/29: change thorazine 100/100/200 to 100/300 for ease of administration post-discharge. prolixin DEC 25 on , DC PO prolixin . otherwise continue current mgmt. 03/30: Continue current tx plan. 03/31: Continue current treatment plan 04/01 continue tx. 04/02 continue tx. 04/03 continue tx. 04/04: increase availability of thorazine to 100 Q4H PRN agitation. some decompensation since second prolixin dec shot and discontinuation of PO fluphenazine. continue current mgmt, wait for MENDES to increase its effect. 04/05: continues with exacerbated psychotic Sx since DC of PO prolixin and initiation of MENDES. continue current mgmt. 04/06: perhaps less overtly psychotic than past couple of days. continue current mgmt. 04/07: remains decompensated from 1-2 weeks prior. continue current mgmt. was informed we will likely need another week of hospitalization. Reason for continued inpatient stay Substantial Risk for: inability to function and rapid decompensation Time Spent With Patient Time: Total time managing care of this patient today __25__ minutes.
[2023-04-07] MEDS: carBAMazepine ER 200 MG TAB.ER.12H 600 MG PO (22:22)
[2023-04-07] MEDS: chlorproMAZINE HCl 100 MG TABLET 400 MG PO (22:22)
[2023-04-07] MEDS: Lithium Carbonate ER 450 MG TABLET.ER 900 MG PO (22:22)
[2023-04-07] MEDS: chlorproMAZINE HCl 100 MG TABLET PO (22:53)
[2023-04-08 07:00] VITALS: BP 119/65; PULSE 86; RESP 18; TEMP 36; O2SAT 97
[2023-04-08] MEDS: carBAMazepine 200 MG TABLET 400 MG PO (08:59)
[2023-04-08] MEDS: Benztropine Mesylate 1 MG TABLET PO ×2 (08:59→20:42)
[2023-04-08] MEDS: Lithium Carbonate ER 450 MG TABLET.ER PO (08:59)
[2023-04-08] MEDS: Lithium Carbonate ER 300 MG TABLET.ER PO (08:59)
--- NOTE | 2023-04-08 15:24 | HO.PSYCHPN ---
Subjective Subjective Date of Service: 04/08/23 Reason For Visit: Psychosis Interim History: no questions or complaints. some RIS in green. per staff, denies AH but +RIS. intermittent yelling. +meds. slept about 5 hours. using thorazine PRNs. Mental Status Exam Mental Status Exam Narrative: Pt is alert and oriented; behavior is calm; dressed in casual attire; mood is described as good; eye contact appropriate; Speech is normal rate, volume and prosody and not pressured; thought process is linear and logical, some HAMLET or poor attention; otherwise pertinent to relevant topics and without any expressed delusional content, paranoid ideations or grandiosity; no SI/HI/VH expressed. denies AH. Diagnostics Vital Signs (24Hr): Vital Signs - 24 hr 04/08/23 07:00 Temperature 96.8 F Pulse Rate 86 Respiratory Rate 18 Blood Pressure 119/65 Pulse Oximetry 97 Oxygen Delivery Method Room Air BMI result Body Mass Index 30.3 Labs 03/03/23 20:10 03/25/23 12:35 Medications Medications Current Medications Acetaminophen (Acetaminophen 325 Mg Tablet) 650 mg PO Q6H PRN PRN Reason: mild pain Last Admin: 03/27/23 20:56 Dose: 650 mg Benztropine Mesylate (Benztropine Mesylate 1 Mg Tablet) 1 mg PO BID [facility] Last Admin: 04/08/23 08:59 Dose: 1 mg Carbamazepine (Carbamazepine 200 Mg Tablet) 400 mg PO DAILY [facility] Last Admin: 04/08/23 08:59 Dose: 400 mg Carbamazepine (Carbamazepine Er 200 Mg Tab.Er.12h) 600 mg PO BEDTIME [facility] Last Admin: 04/07/23 22:22 Dose: 600 mg Chlorpromazine HCl (Chlorpromazine Hcl 100 Mg Tablet) 400 mg PO BEDTIME [facility] Last Admin: 04/07/23 22:22 Dose: 400 mg Chlorpromazine HCl (Chlorpromazine Hcl 100 Mg Tablet) 100 mg PO Q4H PRN PRN Reason: agitation/anxiety Last Admin: 04/07/23 22:53 Dose: 100 mg Diphenhydramine HCl (Diphenhydramine Hcl 25 Mg Capsule) 50 mg PO Q6H PRN PRN Reason: Allergic Symptoms Last Admin: 03/30/23 17:51 Dose: 50 mg Fluphenazine Decanoate (Fluphenazine Decanoate 25 Mg/Ml 5 Ml Vial) 25 mg IM Q14D@0900 [facility] Last Admin: 03/31/23 10:43 Dose: 25 mg Fluphenazine HCl (Fluphenazine Hcl 2.5 Mg/Ml 10 Ml Vial) 5 mg IM TID PRN PRN Reason: refusal of PO fluphenazine [place] Carbonate ([place] Carbonate Er 450 Mg Tablet.Er) 900 mg PO BEDTIME [facility] Last Admin: 04/07/23 22:22 Dose: 900 mg [place] Carbonate ([place] Carbonate Er 300 Mg Tablet.Er) 300 mg PO DAILY [facility] Last Admin: 04/08/23 08:59 Dose: 300 mg [place] Carbonate ([place] Carbonate Er 450 Mg Tablet.Er) 450 mg PO DAILY [facility] Last Admin: 04/08/23 08:59 Dose: 450 mg Multi-Ingred Cream/Lotion/Oil/Oint (Mineral Oil/Petrolatum,White 106 Gm Tube) 1 appl TOPICAL BID [facility]; Protocol Last Admin: 04/08/23 10:47 Dose: Not Given Polyethylene Glycol (Polyethylene Glycol 3350 17 Gm Powd.Pack) 17 gm PO DAILY PRN PRN Reason: constipation Last Admin: 04/03/23 11:15 Dose: 17 gm Allergies Allergies Allergy/AdvReac Type Severity Reaction Status Date / Time morphine [MORPHINE] AdvReac Unknown NAUSEA Verified 12/10/22 19:56 Assessment & Plan Assessment & Plan (1) Schizoaffective disorder, bipolar type: Status: Acute Code(s): F25.0 - Schizoaffective disorder, bipolar type (2) Nonspecific ST-T wave electrocardiographic changes: Status: Acute Code(s): R94.31 - Abnormal electrocardiogram [ECG] [EKG] (3) Cocaine use disorder: Status: Acute Code(s): F14.10 - Cocaine abuse, uncomplicated (4) Opioid use disorder: Status: Acute Code(s): F11.90 - Opioid use, unspecified, uncomplicated Plan 03/09: Patient presents guarded during 1:1. He reports feeling okay today; states he is sleeping well. Isolative. Pt reports he doesn't go to groups because I don't learn anything . Denies SI/HI/VH/AH. Continue current tx plan. 03/10: Patient presents guarded and brief today. He reports feeling good . Pt stated, I don't need anything Denies SI/HI/VH/AH. 03/11: periods of cogency and periods of apparent thought disorganization. denying Sx but appears to still be RIS and distracted. continue current mgmt for now. 03/12 continue same treatment. 03/13 continue same treatment. 03/14: continue current mgmt. plan to streamline medications regimen prior to discharge. T/C prolixin MENDES. 03/15: Continue current treatment plan. 03/16: streamlining meds today. decrease thorazine PRN availability. start prolixin decanoate tomorrow morning, will decrease PO prolixin by about half once the injection is given. continue other medications for now. 03/17: received prolixin DEC 25 mg today. decrease PO prolixin from 7.5 TID to 5 BID, otherwise continue current mgmt. 03/18: Continue current treatment plan. 03/19: continue current mgmt. noted to have hit himself in the thigh twice apparently in frustration, occasionally mumble to himself, and have a minimal outburst at last evening. likely related to transition from PO prolixin to IM decanoate. 03/20: no change in presentation. continue current mgmt. 03/21: stable. continue current mgmt. 03/22: stable. continue current mgmt. next prolixin DEC dose 03/31, DC PO prolixin at that time. 03/23: Continue current tx plan. 03/24: Patient reports feeling more energetic today ; stated he does not need anything . Presents calm, pleasant. denies SI/HI/VH/AH. Continue current tx plan. 03/25: Continue current tx plan. 03/26: Continue current management and treatment plan. 03/28: continue current mgmt. prolixin DEC 03/31, then DC PO prolixin. planning for discharge late next week. 03/29: change thorazine 100/100/200 to 100/300 for ease of administration post-discharge. prolixin DEC 25 on , DC PO prolixin . otherwise continue current mgmt. 03/30: Continue current tx plan. 03/31: Continue current treatment plan 04/01 continue tx. 04/02 continue tx. 04/03 continue tx. 04/04: increase availability of thorazine to 100 Q4H PRN agitation. some decompensation since second prolixin dec shot and discontinuation of PO fluphenazine. continue current mgmt, wait for MENDES to increase its effect. 04/05: continues with exacerbated psychotic Sx since DC of PO prolixin and initiation of MENDES. continue current mgmt. 04/06: perhaps less overtly psychotic than past couple of days. continue current mgmt. 04/07: remains decompensated from 1-2 weeks prior. continue current mgmt. was informed we will likely need another week of hospitalization. 04/08: no change in presentation or mgmt. Reason for continued inpatient stay Substantial Risk for: inability to function and rapid decompensation Time Spent With Patient Time: Total time managing care of this patient today __25__ minutes.
[2023-04-08] MEDS: chlorproMAZINE HCl 100 MG TABLET PO (16:21)
[2023-04-08 20:00] VITALS: BP 157/76; PULSE 82; RESP 15; TEMP 37.2; O2SAT 98
[2023-04-08] MEDS: carBAMazepine ER 200 MG TAB.ER.12H 600 MG PO (20:40)
[2023-04-08] MEDS: chlorproMAZINE HCl 100 MG TABLET 400 MG PO (20:40)
[2023-04-08] MEDS: Lithium Carbonate ER 450 MG TABLET.ER 900 MG PO (20:41)
[2023-04-08] MEDS: diphenhydrAMINE HCL 25 MG CAPSULE 50 MG PO (20:49)
[2023-04-09] MEDS: Lithium Carbonate ER 450 MG TABLET.ER PO (08:30)
[2023-04-09] MEDS: Lithium Carbonate ER 300 MG TABLET.ER PO (08:30)
[2023-04-09] MEDS: Benztropine Mesylate 1 MG TABLET PO ×2 (08:31→20:19)
[2023-04-09] MEDS: carBAMazepine 200 MG TABLET 400 MG PO (08:31)
[2023-04-09 08:40] VITALS: BP 108/67; PULSE 87; RESP 18; TEMP 36.3; O2SAT 99
--- NOTE | 2023-04-09 13:11 | HO.PSYCHPN ---
Subjective Subjective Date of Service: 04/09/23 Reason For Visit: Psychosis Subjective Notes: Section 8 Medical Problems Affecting Mental Status: No Interim History: met with patient. Discussed with Nursing. Has been little bit brighter and less isolative and less internal preoccupation. 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 Was asking when his next long-acting injectable will be 2. Sleeping better. Feels more calm. Denies paranoia or hallucinations. Denied feeling depressed or suicidal. Medication Compliance: Yes Side effects from medications: No Attending Groups: Intermittent Review of Systems Acute medical concerns: No Review of Systems Review of Systems Nothing acute Mental Status Exam Mental Status Exam Narrative: pleasant. Casually presented. Overall engaged. Did have some difficulty organizing thoughts at times. Denies depression. Affect restricted. No SI. No HI. Denies paranoia or hallucinations. Insight and judgment gradually improving Diagnostics Vital Signs (24Hr): Vital Signs - 24 hr 04/08/23 20:00 04/09/23 08:40 Temperature 99.0 F 97.4 F Pulse Rate 82 87 Respiratory Rate 15 18 Blood Pressure 157/76 H 108/67 Pulse Oximetry 98 99 Oxygen Delivery Method Room Air Room Air BMI result Body Mass Index 30.3 Labs 03/03/23 20:10 03/25/23 12:35 Medications Medications Current Medications Acetaminophen (Acetaminophen 325 Mg Tablet) 650 mg PO Q6H PRN PRN Reason: mild pain Last Admin: 03/27/23 20:56 Dose: 650 mg Benztropine Mesylate (Benztropine Mesylate 1 Mg Tablet) 1 mg PO BID [facility] Last Admin: 04/09/23 08:31 Dose: 1 mg Carbamazepine (Carbamazepine 200 Mg Tablet) 400 mg PO DAILY [facility] Last Admin: 04/09/23 08:31 Dose: 400 mg Carbamazepine (Carbamazepine Er 200 Mg Tab.Er.12h) 600 mg PO BEDTIME [facility] Last Admin: 04/08/23 20:40 Dose: 600 mg Chlorpromazine HCl (Chlorpromazine Hcl 100 Mg Tablet) 400 mg PO BEDTIME [facility] Last Admin: 04/08/23 20:40 Dose: 400 mg Chlorpromazine HCl (Chlorpromazine Hcl 100 Mg Tablet) 100 mg PO Q4H PRN PRN Reason: agitation/anxiety Last Admin: 04/08/23 16:21 Dose: 100 mg Diphenhydramine HCl (Diphenhydramine Hcl 25 Mg Capsule) 50 mg PO Q6H PRN PRN Reason: Allergic Symptoms Last Admin: 04/08/23 20:49 Dose: 50 mg Fluphenazine Decanoate (Fluphenazine Decanoate 25 Mg/Ml 5 Ml Vial) 25 mg IM Q14D@0900 [facility] Last Admin: 03/31/23 10:43 Dose: 25 mg Fluphenazine HCl (Fluphenazine Hcl 2.5 Mg/Ml 10 Ml Vial) 5 mg IM TID PRN PRN Reason: refusal of PO fluphenazine [place] Carbonate (Petros Carbonate Er 450 Mg Tablet.Er) 900 mg PO BEDTIME [facility] Last Admin: 04/08/23 20:41 Dose: 900 mg [place] Carbonate ([place]ros Carbonate Er 300 Mg Tablet.Er) 300 mg PO DAILY [facility] Last Admin: 04/09/23 08:30 Dose: 300 mg [place] Carbonate ([place] Carbonate Er 450 Mg Tablet.Er) 450 mg PO DAILY [facility] Last Admin: 04/09/23 08:30 Dose: 450 mg Multi-Ingred Cream/Lotion/Oil/Oint (Mineral Oil/Petrolatum,White 106 Gm Tube) 1 appl TOPICAL BID [facility]; Protocol Last Admin: 04/09/23 08:38 Dose: Not Given Polyethylene Glycol (Polyethylene Glycol 3350 17 Gm Powd.Pack) 17 gm PO DAILY PRN PRN Reason: constipation Last Admin: 04/03/23 11:15 Dose: 17 gm Allergies Allergies Allergy/AdvReac Type Severity Reaction Status Date / Time morphine [MORPHINE] AdvReac Unknown NAUSEA Verified 12/10/22 19:56 Assessment & Plan Assessment & Plan (1) Schizoaffective disorder, bipolar type: Status: Acute Code(s): F25.0 - Schizoaffective disorder, bipolar type (2) Nonspecific ST-T wave electrocardiographic changes: Status: Acute Code(s): R94.31 - Abnormal electrocardiogram [ECG] [EKG] (3) Cocaine use disorder: Status: Acute Code(s): F14.10 - Cocaine abuse, uncomplicated (4) Opioid use disorder: Status: Acute Code(s): F11.90 - Opioid use, unspecified, uncomplicated Plan 03/09: Patient presents guarded during 1:1. He reports feeling okay today; states he is sleeping well. Isolative. Pt reports he doesn't go to groups because I don't learn anything . Denies SI/HI/VH/AH. Continue current tx plan. 03/10: Patient presents guarded and brief today. He reports feeling good . Pt stated, I don't need anything Denies SI/HI/VH/AH. 03/11: periods of cogency and periods of apparent thought disorganization. denying Sx but appears to still be RIS and distracted. continue current mgmt for now. 03/12 continue same treatment. 03/13 continue same treatment. 03/14: continue current mgmt. plan to streamline medications regimen prior to discharge. T/C prolixin MENDES. 03/15: Continue current treatment plan. 03/16: streamlining meds today. decrease thorazine PRN availability. start prolixin decanoate tomorrow morning, will decrease PO prolixin by about half once the injection is given. continue other medications for now. 03/17: received prolixin DEC 25 mg today. decrease PO prolixin from 7.5 TID to 5 BID, otherwise continue current mgmt. 03/18: Continue current treatment plan. 03/19: continue current mgmt. noted to have hit himself in the thigh twice apparently in frustration, occasionally mumble to himself, and have a minimal outburst at last evening. likely related to transition from PO prolixin to IM decanoate. 03/20: no change in presentation. continue current mgmt. 03/21: stable. continue current mgmt. 03/22: stable. continue current mgmt. next prolixin DEC dose 03/31, DC PO prolixin at that time. 03/23: Continue current tx plan. 03/24: Patient reports feeling more energetic today ; stated he does not need anything . Presents calm, pleasant. denies SI/HI/VH/AH. Continue current tx plan. 03/25: Continue current tx plan. 03/26: Continue current management and treatment plan. 03/28: continue current mgmt. prolixin DEC 03/31, then DC PO prolixin. planning for discharge late next week. 03/29: change thorazine 100/100/200 to 100/300 for ease of administration post-discharge. prolixin DEC 25 on , DC PO prolixin . otherwise continue current mgmt. 03/30: Continue current tx plan. 03/31: Continue current treatment plan 04/01 continue tx. 04/02 continue tx. 04/03 continue tx. 04/04: increase availability of thorazine to 100 Q4H PRN agitation. some decompensation since second prolixin dec shot and discontinuation of PO fluphenazine. continue current mgmt, wait for MENDES to increase its effect. 04/05: continues with exacerbated psychotic Sx since DC of PO prolixin and initiation of MENDES. continue current mgmt. 04/06: perhaps less overtly psychotic than past couple of days. continue current mgmt. 04/07: remains decompensated from 1-2 weeks prior. continue current mgmt. was informed we will likely need another week of hospitalization. 04/08: no change in presentation or mgmt. 04/09: no changes- got prolixin dec 03/17 and 03/31, next due 04/14 Reason for continued inpatient stay Substantial Risk for: rapid decompensation Time Spent With Patient Time: Total time managing care of this patient today ____ minutes.
[2023-04-09 19:45] VITALS: BP 130/77; PULSE 89; RESP 18; TEMP 37.2; O2SAT 98
[2023-04-09] MEDS: chlorproMAZINE HCl 100 MG TABLET 400 MG PO (20:18)
[2023-04-09] MEDS: carBAMazepine ER 200 MG TAB.ER.12H 600 MG PO (20:20)
[2023-04-09] MEDS: Lithium Carbonate ER 450 MG TABLET.ER 900 MG PO (20:21)
[2023-04-10 08:14] VITALS: BP 122/72; PULSE 90; RESP 20; TEMP 36.6; O2SAT 98
[2023-04-10] MEDS: carBAMazepine 200 MG TABLET 400 MG PO (08:15)
[2023-04-10] MEDS: Lithium Carbonate ER 450 MG TABLET.ER PO (08:15)
[2023-04-10] MEDS: Benztropine Mesylate 1 MG TABLET PO ×2 (08:16→21:43)
[2023-04-10] MEDS: Lithium Carbonate ER 300 MG TABLET.ER PO (08:16)
--- NOTE | 2023-04-10 10:16 | HO.PSYCHPN ---
Subjective Subjective Date of Service: 04/10/23 Reason For Visit: Psychosis Interim History: Continues to be brighter and less isolative and less internal preoccupation. Sleeping okay. Is out of his room. Denied paranoia or hallucinations. Denied depression or SI. Denied medication concerns. Communicated next Prolixin injection is on 04/14/2023 i.e. . Has already received 2 with 1 on 03/17/2023 and the 2nd on 03/31/2023. Medication Compliance: Yes Side effects from medications: No Attending Groups: No Review of Systems Acute medical concerns: No Review of Systems Review of Systems Nothing acute Mental Status Exam Mental Status Exam Narrative: pleasant. Casually presented. Overall engaged. Did have some difficulty organizing thoughts at times. Denies depression. Affect restricted. No SI. No HI. Denies paranoia or hallucinations. Insight and judgment gradually improving Diagnostics Vital Signs (24Hr): Vital Signs - 24 hr 04/09/23 19:45 04/10/23 08:14 Temperature 98.9 F 97.8 F Pulse Rate 89 90 Respiratory Rate 18 20 Blood Pressure 130/77 122/72 Pulse Oximetry 98 98 Oxygen Delivery Method Room Air Room Air BMI result Body Mass Index 30.3 Labs 03/03/23 20:10 03/25/23 12:35 Medications Medications Current Medications Acetaminophen (Acetaminophen 325 Mg Tablet) 650 mg PO Q6H PRN PRN Reason: mild pain Last Admin: 03/27/23 20:56 Dose: 650 mg Benztropine Mesylate (Benztropine Mesylate 1 Mg Tablet) 1 mg PO BID [facility] Last Admin: 04/10/23 08:16 Dose: 1 mg Carbamazepine (Carbamazepine 200 Mg Tablet) 400 mg PO DAILY [facility] Last Admin: 04/10/23 08:15 Dose: 400 mg Carbamazepine (Carbamazepine Er 200 Mg Tab.Er.12h) 600 mg PO BEDTIME [facility] Last Admin: 04/09/23 20:20 Dose: 600 mg Chlorpromazine HCl (Chlorpromazine Hcl 100 Mg Tablet) 400 mg PO BEDTIME [facility] Last Admin: 04/09/23 20:18 Dose: 400 mg Chlorpromazine HCl (Chlorpromazine Hcl 100 Mg Tablet) 100 mg PO Q4H PRN PRN Reason: agitation/anxiety Last Admin: 04/08/23 16:21 Dose: 100 mg Diphenhydramine HCl (Diphenhydramine Hcl 25 Mg Capsule) 50 mg PO Q6H PRN PRN Reason: Allergic Symptoms Last Admin: 04/08/23 20:49 Dose: 50 mg Fluphenazine Decanoate (Fluphenazine Decanoate 25 Mg/Ml 5 Ml Vial) 25 mg IM Q14D@0900 [facility] Last Admin: 03/31/23 10:43 Dose: 25 mg Fluphenazine HCl (Fluphenazine Hcl 2.5 Mg/Ml 10 Ml Vial) 5 mg IM TID PRN PRN Reason: refusal of PO fluphenazine [place] Carbonate ([place] Carbonate Er 450 Mg Tablet.Er) 900 mg PO BEDTIME [facility] Last Admin: 04/09/23 20:21 Dose: 900 mg [place] Carbonate ([place] Carbonate Er 300 Mg Tablet.Er) 300 mg PO DAILY [facility] Last Admin: 04/10/23 08:16 Dose: 300 mg [place] Carbonate ([place] Carbonate Er 450 Mg Tablet.Er) 450 mg PO DAILY [facility] Last Admin: 04/10/23 08:15 Dose: 450 mg Multi-Ingred Cream/Lotion/Oil/Oint (Mineral Oil/Petrolatum,White 106 Gm Tube) 1 appl TOPICAL BID [facility]; Protocol Last Admin: 04/10/23 08:17 Dose: Not Given Polyethylene Glycol (Polyethylene Glycol 3350 17 Gm Powd.Pack) 17 gm PO DAILY PRN PRN Reason: constipation Last Admin: 04/03/23 11:15 Dose: 17 gm Allergies Allergies Allergy/AdvReac Type Severity Reaction Status Date / Time morphine [MORPHINE] AdvReac Unknown NAUSEA Verified 12/10/22 19:56 Assessment & Plan Assessment & Plan (1) Schizoaffective disorder, bipolar type: Status: Acute Code(s): F25.0 - Schizoaffective disorder, bipolar type (2) Nonspecific ST-T wave electrocardiographic changes: Status: Acute Code(s): R94.31 - Abnormal electrocardiogram [ECG] [EKG] (3) Cocaine use disorder: Status: Acute Code(s): F14.10 - Cocaine abuse, uncomplicated (4) Opioid use disorder: Status: Acute Code(s): F11.90 - Opioid use, unspecified, uncomplicated Plan 03/09: Patient presents guarded during 1:1. He reports feeling okay today; states he is sleeping well. Isolative. Pt reports he doesn't go to groups because I don't learn anything . Denies SI/HI/VH/AH. Continue current tx plan. 03/10: Patient presents guarded and brief today. He reports feeling good . Pt stated, I don't need anything Denies SI/HI/VH/AH. 03/11: periods of cogency and periods of apparent thought disorganization. denying Sx but appears to still be RIS and distracted. continue current mgmt for now. 03/12 continue same treatment. 03/13 continue same treatment. 03/14: continue current mgmt. plan to streamline medications regimen prior to discharge. T/C prolixin MENDES. 03/15: Continue current treatment plan. 03/16: streamlining meds today. decrease thorazine PRN availability. start prolixin decanoate tomorrow morning, will decrease PO prolixin by about half once the injection is given. continue other medications for now. 03/17: received prolixin DEC 25 mg today. decrease PO prolixin from 7.5 TID to 5 BID, otherwise continue current mgmt. 03/18: Continue current treatment plan. 03/19: continue current mgmt. noted to have hit himself in the thigh twice apparently in frustration, occasionally mumble to himself, and have a minimal outburst at last evening. likely related to transition from PO prolixin to IM decanoate. 03/20: no change in presentation. continue current mgmt. 03/21: stable. continue current mgmt. 03/22: stable. continue current mgmt. next prolixin DEC dose 03/31, DC PO prolixin at that time. 03/23: Continue current tx plan. 03/24: Patient reports feeling more energetic today ; stated he does not need anything . Presents calm, pleasant. denies SI/HI/VH/AH. Continue current tx plan. 03/25: Continue current tx plan. 03/26: Continue current management and treatment plan. 03/28: continue current mgmt. prolixin DEC 03/31, then DC PO prolixin. planning for discharge late next week. 03/29: change thorazine 100/100/200 to 100/300 for ease of administration post-discharge. prolixin DEC 25 on , DC PO prolixin . otherwise continue current mgmt. 03/30: Continue current tx plan. 03/31: Continue current treatment plan 04/01 continue tx. 04/02 continue tx. 04/03 continue tx. 04/04: increase availability of thorazine to 100 Q4H PRN agitation. some decompensation since second prolixin dec shot and discontinuation of PO fluphenazine. continue current mgmt, wait for MENDES to increase its effect. 04/05: continues with exacerbated psychotic Sx since DC of PO prolixin and initiation of MENDES. continue current mgmt. 04/06: perhaps less overtly psychotic than past couple of days. continue current mgmt. 04/07: remains decompensated from 1-2 weeks prior. continue current mgmt. was informed we will likely need another week of hospitalization. 04/08: no change in presentation or mgmt. 04/10: no changes- got prolixin dec 03/17 and 03/31, next due 04/14 Reason for continued inpatient stay Substantial Risk for: rapid decompensation Time Spent With Patient Time: Total time managing care of this patient today ____ minutes.
[2023-04-10] MEDS: chlorproMAZINE HCl 100 MG TABLET PO (18:00)
[2023-04-10 19:56] VITALS: BP 137/75; PULSE 82; RESP 18; TEMP 36.8; O2SAT 97
[2023-04-10] MEDS: Lithium Carbonate ER 450 MG TABLET.ER 900 MG PO (21:43)
[2023-04-10] MEDS: carBAMazepine ER 200 MG TAB.ER.12H 600 MG PO (21:43)
[2023-04-10] MEDS: chlorproMAZINE HCl 100 MG TABLET 400 MG PO (21:44)
[2023-04-11 07:10] VITALS: BP 129/78; PULSE 76; RESP 18; TEMP 36.4; O2SAT 100
[2023-04-11 08:20] VITALS: BP 111/65; PULSE 97; RESP 20; TEMP 36.6; O2SAT 99
[2023-04-11] MEDS: Lithium Carbonate ER 300 MG TABLET.ER PO (08:33)
[2023-04-11] MEDS: carBAMazepine 200 MG TABLET 400 MG PO (08:33)
[2023-04-11] MEDS: Lithium Carbonate ER 450 MG TABLET.ER PO (08:34)
[2023-04-11] MEDS: Benztropine Mesylate 1 MG TABLET PO ×2 (08:34→20:31)
[2023-04-11] MEDS: chlorproMAZINE HCl 100 MG TABLET PO (11:49)
--- NOTE | 2023-04-11 18:05 | P.PNPSI_ITS ---
Subjective Subjective Date of Service: 04/11/23 Reason For Visit: Psychosis Interim History: pacing the green, RIS. otherwise pleasant and cooperative, denying Sx. per staff, some RIS. appears preoccupied, pacing. taking meds, asking foer thorazine PRNs. Mental Status Exam Mental Status Exam Narrative: Pt is alert and oriented; behavior is calm; dressed in casual attire; mood is described as good; eye contact appropriate; Speech is normal rate, volume and prosody and not pressured; thought process is linear and logical, some HAMLET or poor attention; otherwise pertinent to relevant topics and without any expressed delusional content, paranoid ideations or grandiosity; no SI/HI/VH expressed. denies AH. Diagnostics Vital Signs (24Hr): Vital Signs - 24 hr 04/10/23 19:56 04/11/23 07:10 04/11/23 08:20 Temperature 98.3 F 97.5 F 97.9 F Pulse Rate 82 76 97 Respiratory Rate 18 18 20 Blood Pressure 137/75 129/78 111/65 Pulse Oximetry 97 100 99 Oxygen Delivery Method Room Air Room Air Room Air BMI result Body Mass Index 30.3 Labs 03/03/23 20:10 03/25/23 12:35 Medications Medications Current Medications Acetaminophen (Acetaminophen 325 Mg Tablet) 650 mg PO Q6H PRN PRN Reason: mild pain Last Admin: 03/27/23 20:56 Dose: 650 mg Benztropine Mesylate (Benztropine Mesylate 1 Mg Tablet) 1 mg PO BID [facility] Last Admin: 04/11/23 08:34 Dose: 1 mg Carbamazepine (Carbamazepine 200 Mg Tablet) 400 mg PO DAILY [facility] Last Admin: 04/11/23 08:33 Dose: 400 mg Carbamazepine (Carbamazepine Er 200 Mg Tab.Er.12h) 600 mg PO BEDTIME [facility] Last Admin: 04/10/23 21:43 Dose: 600 mg Chlorpromazine HCl (Chlorpromazine Hcl 100 Mg Tablet) 400 mg PO BEDTIME [facility] Last Admin: 04/10/23 21:44 Dose: 400 mg Chlorpromazine HCl (Chlorpromazine Hcl 100 Mg Tablet) 100 mg PO Q4H PRN PRN Reason: agitation/anxiety Last Admin: 04/11/23 11:49 Dose: 100 mg Diphenhydramine HCl (Diphenhydramine Hcl 25 Mg Capsule) 50 mg PO Q6H PRN PRN Reason: Allergic Symptoms Last Admin: 04/08/23 20:49 Dose: 50 mg Fluphenazine Decanoate (Fluphenazine Decanoate 25 Mg/Ml 5 Ml Vial) 25 mg IM Q14D@0900 [facility] Last Admin: 03/31/23 10:43 Dose: 25 mg Fluphenazine HCl (Fluphenazine Hcl 2.5 Mg/Ml 10 Ml Vial) 5 mg IM TID PRN PRN Reason: refusal of PO fluphenazine [place] Carbonate ([place] Carbonate Er 450 Mg Tablet.Er) 900 mg PO BEDTIME [facility] Last Admin: 04/10/23 21:43 Dose: 900 mg [place] Carbonate ([place] Carbonate Er 300 Mg Tablet.Er) 300 mg PO DAILY [facility] Last Admin: 04/11/23 08:33 Dose: 300 mg [place] Carbonate ([place] Carbonate Er 450 Mg Tablet.Er) 450 mg PO DAILY [facility] Last Admin: 04/11/23 08:34 Dose: 450 mg Multi-Ingred Cream/Lotion/Oil/Oint (Mineral Oil/Petrolatum,White 106 Gm Tube) 1 appl TOPICAL BID [facility]; Protocol Last Admin: 04/11/23 08:34 Dose: Not Given Polyethylene Glycol (Polyethylene Glycol 3350 17 Gm Powd.Pack) 17 gm PO DAILY PRN PRN Reason: constipation Last Admin: 04/03/23 11:15 Dose: 17 gm Allergies Allergies Allergy/AdvReac Type Severity Reaction Status Date / Time morphine [MORPHINE] AdvReac Unknown NAUSEA Verified 12/10/22 19:56 Assessment & Plan Assessment & Plan (1) Schizoaffective disorder, bipolar type: Status: Acute Code(s): F25.0 - Schizoaffective disorder, bipolar type (2) Nonspecific ST-T wave electrocardiographic changes: Status: Acute Code(s): R94.31 - Abnormal electrocardiogram [ECG] [EKG] (3) Cocaine use disorder: Status: Acute Code(s): F14.10 - Cocaine abuse, uncomplicated (4) Opioid use disorder: Status: Acute Code(s): F11.90 - Opioid use, unspecified, uncomplicated Plan 03/09: Patient presents guarded during 1:1. He reports feeling okay today; states he is sleeping well. Isolative. Pt reports he doesn't go to groups because I don't learn anything . Denies SI/HI/VH/AH. Continue current tx plan. 03/10: Patient presents guarded and brief today. He reports feeling good . Pt stated, I don't need anything Denies SI/HI/VH/AH. 03/11: periods of cogency and periods of apparent thought disorganization. denying Sx but appears to still be RIS and distracted. continue current mgmt for now. 03/12 continue same treatment. 03/13 continue same treatment. 03/14: continue current mgmt. plan to streamline medications regimen prior to discharge. T/C prolixin MENDES. 03/15: Continue current treatment plan. 03/16: streamlining meds today. decrease thorazine PRN availability. start prolixin decanoate tomorrow morning, will decrease PO prolixin by about half once the injection is given. continue other medications for now. 03/17: received prolixin DEC 25 mg today. decrease PO prolixin from 7.5 TID to 5 BID, otherwise continue current mgmt. 03/18: Continue current treatment plan. 03/19: continue current mgmt. noted to have hit himself in the thigh twice apparently in frustration, occasionally mumble to himself, and have a minimal outburst at [facility] last evening. likely related to transition from PO prolixin to IM decanoate. 03/20: no change in presentation. continue current mgmt. 03/21: stable. continue current mgmt. 03/22: stable. continue current mgmt. next prolixin DEC dose 03/31, DC PO prolixin at that time. 03/23: Continue current tx plan. 03/24: Patient reports feeling more energetic today ; stated he does not need anything . Presents calm, pleasant. denies SI/HI/VH/AH. Continue current tx plan. 03/25: Continue current tx plan. 03/26: Continue current management and treatment plan. 03/28: continue current mgmt. prolixin DEC 03/31, then DC PO prolixin. planning for discharge late next week. 03/29: change thorazine 100/100/200 to 100/300 for ease of administration post- discharge. prolixin DEC 25 on , DC PO prolixin . otherwise continue current mgmt. 03/30: Continue current tx plan. 03/31: Continue current treatment plan 04/01 continue tx. 04/02 continue tx. 04/03 continue tx. 04/04: increase availability of thorazine to 100 Q4H PRN agitation. some decompensation since second prolixin dec shot and discontinuation of PO fluphenazine. continue current mgmt, wait for MENDES to increase its effect. 04/05: continues with exacerbated psychotic Sx since DC of PO prolixin and initiation of MENDES. continue current mgmt. 04/06: perhaps less overtly psychotic than past couple of days. continue current mgmt. 04/07: remains decompensated from 1-2 weeks prior. continue current mgmt. was informed we will likely need another week of hospitalization. 04/08: no change in presentation or mgmt. 04/10: no changes- got prolixin dec 03/17 and 03/31, next due 04/14 04/11: continue current mgmt. plan to increase dose of prolixin dec. Reason for continued inpatient stay Substantial Risk for: inability to function and rapid decompensation Time Spent With Patient Time: Total time managing care of this patient today ____ minutes.
[2023-04-11 20:15] VITALS: BP 111/73; PULSE 88; RESP 15; TEMP 37.7; O2SAT 98
[2023-04-11] MEDS: carBAMazepine ER 200 MG TAB.ER.12H 600 MG PO (20:29)
[2023-04-11] MEDS: chlorproMAZINE HCl 100 MG TABLET 400 MG PO (20:30)
[2023-04-11] MEDS: Lithium Carbonate ER 450 MG TABLET.ER 900 MG PO (20:31)
[2023-04-12 08:08] VITALS: BP 103/67; PULSE 84; RESP 18; TEMP 36.7; O2SAT 98
[2023-04-12] MEDS: Lithium Carbonate ER 300 MG TABLET.ER PO (08:21)
[2023-04-12] MEDS: Benztropine Mesylate 1 MG TABLET PO ×2 (08:21→20:37)
[2023-04-12] MEDS: carBAMazepine 200 MG TABLET 400 MG PO (08:21)
[2023-04-12] MEDS: Lithium Carbonate ER 450 MG TABLET.ER PO (08:22)
--- NOTE | 2023-04-12 15:43 | HO.PSYCHPN ---
Subjective Subjective Date of Service: 04/12/23 Reason For Visit: Psychosis Interim History: no change in presentation. able to have brief, superficially linear and normal interactions. also walking the green and intermittently talking to self or yelling out. per staff, no change in presentation. + meds. self-dialoguing. had thorazine PRN. slept well. Mental Status Exam Mental Status Exam Narrative: Pt is alert and oriented; behavior is calm; dressed in casual attire; mood is described as good; eye contact appropriate; Speech is normal rate, volume and prosody and not pressured; thought process is linear and logical, some HAMLET or poor attention; otherwise pertinent to relevant topics and without any expressed delusional content, paranoid ideations or grandiosity; no SI/HI/VH expressed. acknowledges AH. Diagnostics Vital Signs (24Hr): Vital Signs - 24 hr 04/11/23 20:15 04/12/23 08:08 Temperature 99.8 F 98.1 F Pulse Rate 88 84 Respiratory Rate 15 18 Blood Pressure 111/73 103/67 Pulse Oximetry 98 98 Oxygen Delivery Method Room Air Room Air BMI result Body Mass Index 30.3 Labs 03/03/23 20:10 03/25/23 12:35 Medications Medications Current Medications Acetaminophen (Acetaminophen 325 Mg Tablet) 650 mg PO Q6H PRN PRN Reason: mild pain Last Admin: 03/27/23 20:56 Dose: 650 mg Benztropine Mesylate (Benztropine Mesylate 1 Mg Tablet) 1 mg PO BID [facility] Last Admin: 04/12/23 08:21 Dose: 1 mg Carbamazepine (Carbamazepine 200 Mg Tablet) 400 mg PO DAILY [facility] Last Admin: 04/12/23 08:21 Dose: 400 mg Carbamazepine (Carbamazepine Er 200 Mg Tab.Er.12h) 600 mg PO BEDTIME [facility] Last Admin: 04/11/23 20:29 Dose: 600 mg Chlorpromazine HCl (Chlorpromazine Hcl 100 Mg Tablet) 400 mg PO BEDTIME [facility] Last Admin: 04/11/23 20:30 Dose: 400 mg Chlorpromazine HCl (Chlorpromazine Hcl 100 Mg Tablet) 100 mg PO Q4H PRN PRN Reason: agitation/anxiety Last Admin: 04/11/23 11:49 Dose: 100 mg Diphenhydramine HCl (Diphenhydramine Hcl 25 Mg Capsule) 50 mg PO Q6H PRN PRN Reason: Allergic Symptoms Last Admin: 04/08/23 20:49 Dose: 50 mg Fluphenazine Decanoate (Fluphenazine Decanoate 25 Mg/Ml 5 Ml Vial) 25 mg IM Q14D@0900 [facility] Last Admin: 03/31/23 10:43 Dose: 25 mg Fluphenazine HCl (Fluphenazine Hcl 2.5 Mg/Ml 10 Ml Vial) 5 mg IM TID PRN PRN Reason: refusal of PO fluphenazine [place] Carbonate ([place] Carbonate Er 450 Mg Tablet.Er) 900 mg PO BEDTIME [facility] Last Admin: 04/11/23 20:31 Dose: 900 mg [place] Carbonate ([place] Carbonate Er 300 Mg Tablet.Er) 300 mg PO DAILY [facility] Last Admin: 04/12/23 08:21 Dose: 300 mg [place] Carbonate ([place] Carbonate Er 450 Mg Tablet.Er) 450 mg PO DAILY [facility] Last Admin: 04/12/23 08:22 Dose: 450 mg Multi-Ingred Cream/Lotion/Oil/Oint (Mineral Oil/Petrolatum,White 106 Gm Tube) 1 appl TOPICAL BID [facility]; Protocol Last Admin: 04/12/23 08:23 Dose: Not Given Polyethylene Glycol (Polyethylene Glycol 3350 17 Gm Powd.Pack) 17 gm PO DAILY PRN PRN Reason: constipation Last Admin: 04/03/23 11:15 Dose: 17 gm Allergies Allergies Allergy/AdvReac Type Severity Reaction Status Date / Time morphine [MORPHINE] AdvReac Unknown NAUSEA Verified 12/10/22 19:56 Assessment & Plan Assessment & Plan (1) Schizoaffective disorder, bipolar type: Status: Acute Code(s): F25.0 - Schizoaffective disorder, bipolar type (2) Nonspecific ST-T wave electrocardiographic changes: Status: Acute Code(s): R94.31 - Abnormal electrocardiogram [ECG] [EKG] (3) Cocaine use disorder: Status: Acute Code(s): F14.10 - Cocaine abuse, uncomplicated (4) Opioid use disorder: Status: Acute Code(s): F11.90 - Opioid use, unspecified, uncomplicated Plan 03/09: Patient presents guarded during 1:1. He reports feeling okay today; states he is sleeping well. Isolative. Pt reports he doesn't go to groups because I don't learn anything . Denies SI/HI/VH/AH. Continue current tx plan. 03/10: Patient presents guarded and brief today. He reports feeling good . Pt stated, I don't need anything Denies SI/HI/VH/AH. 03/11: periods of cogency and periods of apparent thought disorganization. denying Sx but appears to still be RIS and distracted. continue current mgmt for now. 03/12 continue same treatment. 03/13 continue same treatment. 03/14: continue current mgmt. plan to streamline medications regimen prior to discharge. T/C prolixin MENDES. 03/15: Continue current treatment plan. 03/16: streamlining meds today. decrease thorazine PRN availability. start prolixin decanoate tomorrow morning, will decrease PO prolixin by about half once the injection is given. continue other medications for now. 03/17: received prolixin DEC 25 mg today. decrease PO prolixin from 7.5 TID to 5 BID, otherwise continue current mgmt. 03/18: Continue current treatment plan. 03/19: continue current mgmt. noted to have hit himself in the thigh twice apparently in frustration, occasionally mumble to himself, and have a minimal outburst at [facility] last evening. likely related to transition from PO prolixin to IM decanoate. 03/20: no change in presentation. continue current mgmt. 03/21: stable. continue current mgmt. 03/22: stable. continue current mgmt. next prolixin DEC dose 03/31, DC PO prolixin at that time. 03/23: Continue current tx plan. 03/24: Patient reports feeling more energetic today ; stated he does not need anything . Presents calm, pleasant. denies SI/HI/VH/AH. Continue current tx plan. 03/25: Continue current tx plan. 03/26: Continue current management and treatment plan. 03/28: continue current mgmt. prolixin DEC 03/31, then DC PO prolixin. planning for discharge late next week. 03/29: change thorazine 100/100/200 to 100/300 for ease of administration post-discharge. prolixin DEC 25 on , DC PO prolixin . otherwise continue current mgmt. 03/30: Continue current tx plan. 03/31: Continue current treatment plan 04/01 continue tx. 04/02 continue tx. 04/03 continue tx. 04/04: increase availability of thorazine to 100 Q4H PRN agitation. some decompensation since second prolixin dec shot and discontinuation of PO fluphenazine. continue current mgmt, wait for MENDES to increase its effect. 04/05: continues with exacerbated psychotic Sx since DC of PO prolixin and initiation of MENDES. continue current mgmt. 04/06: perhaps less overtly psychotic than past couple of days. continue current mgmt. 04/07: remains decompensated from 1-2 weeks prior. continue current mgmt. was informed we will likely need another week of hospitalization. 04/08: no change in presentation or mgmt. 04/10: no changes- got prolixin dec 03/17 and 03/31, next due 04/14 04/11: continue current mgmt. plan to increase dose of prolixin dec. 04/12: no change in presentation. continue current mgmt. increase prolixin DEC dosing from 25 mg Q2wks to 37.5 mg Q2wks as of 04/14. Reason for continued inpatient stay Substantial Risk for: inability to function and rapid decompensation Time Spent With Patient Time: Total time managing care of this patient today ____ minutes.
[2023-04-12] MEDS: chlorproMAZINE HCl 100 MG TABLET PO (15:51)
[2023-04-12 20:05] VITALS: BP 127/70; PULSE 88; RESP 16; TEMP 36.5; O2SAT 98
[2023-04-12] MEDS: chlorproMAZINE HCl 100 MG TABLET 400 MG PO (20:37)
[2023-04-12] MEDS: Lithium Carbonate ER 450 MG TABLET.ER 900 MG PO (20:37)
[2023-04-12] MEDS: carBAMazepine ER 200 MG TAB.ER.12H 600 MG PO (20:37)
[2023-04-13 07:20] VITALS: BP 117/72; PULSE 79; TEMP 36.3; O2SAT 99
[2023-04-13] MEDS: Benztropine Mesylate 1 MG TABLET PO ×2 (08:18→21:13)
[2023-04-13] MEDS: Lithium Carbonate ER 450 MG TABLET.ER PO (08:18)
[2023-04-13] MEDS: Lithium Carbonate ER 300 MG TABLET.ER PO (08:18)
[2023-04-13] MEDS: carBAMazepine 200 MG TABLET 400 MG PO (08:18)
[2023-04-13] MEDS: Mineral Oil/Petrolatum,White 106 GM Tube 1 APPL TOPICAL (08:21)
[2023-04-13] MEDS: Acetaminophen 325 MG TABLET 650 MG PO (08:22)
--- NOTE | 2023-04-13 15:41 | P.PNPSI_ITS ---
Subjective Subjective Date of Service: 04/13/23 Reason For Visit: Psychosis Interim History: calm, cooperative. no change in presentation, no complaints or requests. thorazine helpful; calms my mind down. per staff, denies Sx but RIS. visibile. + meds. PRN thorazine. yelling suck my mohinder throughout milieu at 0200 last NOC, briefly. redirectable, back to sleep. slept about 6 hours. Mental Status Exam Mental Status Exam Narrative: Pt is alert and oriented; behavior is calm; dressed in casual attire; mood is described as good; eye contact appropriate; Speech is normal rate, volume and prosody and not pressured; thought process is linear and logical, some HAMLET or poor attention; otherwise pertinent to relevant topics and without any expressed delusional content, paranoid ideations or grandiosity; no SI/HI/VH expressed. acknowledges AH. Diagnostics Vital Signs (24Hr): Vital Signs - 24 hr 04/12/23 20:05 04/13/23 07:20 Temperature 97.7 F 97.3 F Pulse Rate 88 79 Respiratory Rate 16 Blood Pressure 127/70 117/72 Pulse Oximetry 98 99 Oxygen Delivery Method Room Air Room Air BMI result Body Mass Index 30.3 Labs 03/03/23 20:10 03/25/23 12:35 Medications Medications Current Medications Acetaminophen (Acetaminophen 325 Mg Tablet) 650 mg PO Q6H PRN PRN Reason: mild pain Last Admin: 04/13/23 08:22 Dose: 650 mg Benztropine Mesylate (Benztropine Mesylate 1 Mg Tablet) 1 mg PO BID [facility] Last Admin: 04/13/23 08:18 Dose: 1 mg Carbamazepine (Carbamazepine 200 Mg Tablet) 400 mg PO DAILY [facility] Last Admin: 04/13/23 08:18 Dose: 400 mg Carbamazepine (Carbamazepine Er 200 Mg Tab.Er.12h) 600 mg PO BEDTIME [facility] Last Admin: 04/12/23 20:37 Dose: 600 mg Chlorpromazine HCl (Chlorpromazine Hcl 100 Mg Tablet) 400 mg PO BEDTIME [facility] Last Admin: 04/12/23 20:37 Dose: 400 mg Chlorpromazine HCl (Chlorpromazine Hcl 100 Mg Tablet) 100 mg PO Q4H PRN PRN Reason: agitation/anxiety Last Admin: 04/12/23 15:51 Dose: 100 mg Diphenhydramine HCl (Diphenhydramine Hcl 25 Mg Capsule) 50 mg PO Q6H PRN PRN Reason: Allergic Symptoms Last Admin: 04/08/23 20:49 Dose: 50 mg Fluphenazine Decanoate (Fluphenazine Decanoate 25 Mg/Ml 5 Ml Vial) 37.5 mg IM Q14D@0900 [facility] Fluphenazine HCl (Fluphenazine Hcl 2.5 Mg/Ml 10 Ml Vial) 5 mg IM TID PRN PRN Reason: refusal of PO fluphenazine [place] Carbonate ([place] Carbonate Er 450 Mg Tablet.Er) 900 mg PO BEDTIME [facility] Last Admin: 04/12/23 20:37 Dose: 900 mg [place] Carbonate ([place] Carbonate Er 300 Mg Tablet.Er) 300 mg PO DAILY [facility] Last Admin: 04/13/23 08:18 Dose: 300 mg [place] Carbonate ([place] Carbonate Er 450 Mg Tablet.Er) 450 mg PO DAILY [facility] Last Admin: 04/13/23 08:18 Dose: 450 mg Multi-Ingred Cream/Lotion/Oil/Oint (Mineral Oil/Petrolatum,White 106 Gm Tube) 1 appl TOPICAL BID [facility]; Protocol Last Admin: 04/13/23 08:21 Dose: 1 appl Polyethylene Glycol (Polyethylene Glycol 3350 17 Gm Powd.Pack) 17 gm PO DAILY PRN PRN Reason: constipation Last Admin: 04/03/23 11:15 Dose: 17 gm Allergies Allergies Allergy/AdvReac Type Severity Reaction Status Date / Time morphine [MORPHINE] AdvReac Unknown NAUSEA Verified 12/10/22 19:56 Assessment & Plan Assessment & Plan (1) Schizoaffective disorder, bipolar type: Status: Acute Code(s): F25.0 - Schizoaffective disorder, bipolar type (2) Nonspecific ST-T wave electrocardiographic changes: Status: Acute Code(s): R94.31 - Abnormal electrocardiogram [ECG] [EKG] (3) Cocaine use disorder: Status: Acute Code(s): F14.10 - Cocaine abuse, uncomplicated (4) Opioid use disorder: Status: Acute Code(s): F11.90 - Opioid use, unspecified, uncomplicated Plan 03/09: Patient presents guarded during 1:1. He reports feeling okay today; states he is sleeping well. Isolative. Pt reports he doesn't go to groups because I don't learn anything . Denies SI/HI/VH/AH. Continue current tx plan. 03/10: Patient presents guarded and brief today. He reports feeling good . Pt stated, I don't need anything Denies SI/HI/VH/AH. 03/11: periods of cogency and periods of apparent thought disorganization. denying Sx but appears to still be RIS and distracted. continue current mgmt for now. 03/12 continue same treatment. 03/13 continue same treatment. 03/14: continue current mgmt. plan to streamline medications regimen prior to discharge. T/C prolixin MENDES. 03/15: Continue current treatment plan. 03/16: streamlining meds today. decrease thorazine PRN availability. start prolixin decanoate tomorrow morning, will decrease PO prolixin by about half once the injection is given. continue other medications for now. 03/17: received prolixin DEC 25 mg today. decrease PO prolixin from 7.5 TID to 5 BID, otherwise continue current mgmt. 03/18: Continue current treatment plan. 03/19: continue current mgmt. noted to have hit himself in the thigh twice apparently in frustration, occasionally mumble to himself, and have a minimal outburst at [facility] last evening. likely related to transition from PO prolixin to IM decanoate. 03/20: no change in presentation. continue current mgmt. 03/21: stable. continue current mgmt. 03/22: stable. continue current mgmt. next prolixin DEC dose 03/31, DC PO prolixin at that time. 03/23: Continue current tx plan. 03/24: Patient reports feeling more energetic today ; stated he does not need anything . Presents calm, pleasant. denies SI/HI/VH/AH. Continue current tx plan. 03/25: Continue current tx plan. 03/26: Continue current management and treatment plan. 03/28: continue current mgmt. prolixin DEC 03/31, then DC PO prolixin. planning for discharge late next week. 03/29: change thorazine 100/100/200 to 100/300 for ease of administration post- discharge. prolixin DEC 25 on , DC PO prolixin . otherwise continue current mgmt. 03/30: Continue current tx plan. 03/31: Continue current treatment plan 04/01 continue tx. 04/02 continue tx. 04/03 continue tx. 04/04: increase availability of thorazine to 100 Q4H PRN agitation. some decompensation since second prolixin dec shot and discontinuation of PO fluphenazine. continue current mgmt, wait for MENDES to increase its effect. 04/05: continues with exacerbated psychotic Sx since DC of PO prolixin and initiation of MENDES. continue current mgmt. 04/06: perhaps less overtly psychotic than past couple of days. continue current mgmt. 04/07: remains decompensated from 1-2 weeks prior. continue current mgmt. was informed we will likely need another week of hospitalization. 04/08: no change in presentation or mgmt. 04/10: no changes- got prolixin dec 03/17 and 03/31, next due 04/14 04/11: continue current mgmt. plan to increase dose of prolixin dec. 04/12: no change in presentation. continue current mgmt. increase prolixin DEC dosing from 25 Q2wks to 37.5 Q2wks as of 04/14. 04/13: stable presentation, continue current mgmt. Reason for continued inpatient stay Substantial Risk for: inability to function and rapid decompensation Time Spent With Patient Time: Total time managing care of this patient today ____ minutes.
[2023-04-13 19:50] VITALS: BP 138/66; PULSE 80; RESP 16; TEMP 36.6; O2SAT 98
[2023-04-13] MEDS: Lithium Carbonate ER 450 MG TABLET.ER 900 MG PO (21:13)
[2023-04-13] MEDS: carBAMazepine ER 200 MG TAB.ER.12H 600 MG PO (21:13)
[2023-04-13] MEDS: chlorproMAZINE HCl 100 MG TABLET 400 MG PO (21:13)
[2023-04-14 07:00] VITALS: BMI 30.1
[2023-04-14] MEDS: Lithium Carbonate ER 450 MG TABLET.ER PO (08:29)
[2023-04-14] MEDS: Benztropine Mesylate 1 MG TABLET PO ×2 (08:29→20:47)
[2023-04-14] MEDS: carBAMazepine 200 MG TABLET 400 MG PO (08:29)
[2023-04-14] MEDS: Lithium Carbonate ER 300 MG TABLET.ER PO (08:29)
[2023-04-14 08:40] VITALS: BP 115/77; PULSE 77; RESP 16; TEMP 36.9; O2SAT 98
[2023-04-14] MEDS: fluPHENAZine decanoate 25 MG/ML 5 ML VIAL 37.5 MG IM (11:27)
--- NOTE | 2023-04-14 15:04 | HO.PSYCHPN ---
Subjective Subjective Date of Service: 04/14/23 Reason For Visit: Psychosis Interim History: no change in presentation. per staff, +RIS. no groups. denies psych Sx. received increased prolixin IM dosing today. Mental Status Exam Mental Status Exam Narrative: Pt is alert and oriented; behavior is calm; dressed in casual attire; mood is described as good; eye contact appropriate; Speech is normal rate, volume and prosody and not pressured; thought process is linear and logical, some HAMLET or poor attention; otherwise pertinent to relevant topics and without any expressed delusional content, paranoid ideations or grandiosity; no SI/HI/VH expressed. acknowledges AH. Diagnostics Vital Signs (24Hr): Vital Signs - 24 hr 04/13/23 19:50 04/14/23 08:40 Temperature 97.8 F 98.5 F Pulse Rate 80 77 Respiratory Rate 16 16 Blood Pressure 138/66 115/77 Pulse Oximetry 98 98 Oxygen Delivery Method Room Air Room Air BMI result Body Mass Index 30.1 Labs 03/03/23 20:10 03/25/23 12:35 Medications Medications Current Medications Acetaminophen (Acetaminophen 325 Mg Tablet) 650 mg PO Q6H PRN PRN Reason: mild pain Last Admin: 04/13/23 08:22 Dose: 650 mg Benztropine Mesylate (Benztropine Mesylate 1 Mg Tablet) 1 mg PO BID [facility] Last Admin: 04/14/23 08:29 Dose: 1 mg Carbamazepine (Carbamazepine 200 Mg Tablet) 400 mg PO DAILY [facility] Last Admin: 04/14/23 08:29 Dose: 400 mg Carbamazepine (Carbamazepine Er 200 Mg Tab.Er.12h) 600 mg PO BEDTIME [facility] Last Admin: 04/13/23 21:13 Dose: 600 mg Chlorpromazine HCl (Chlorpromazine Hcl 100 Mg Tablet) 400 mg PO BEDTIME [facility] Last Admin: 04/13/23 21:13 Dose: 400 mg Chlorpromazine HCl (Chlorpromazine Hcl 100 Mg Tablet) 100 mg PO Q4H PRN PRN Reason: agitation/anxiety Last Admin: 04/12/23 15:51 Dose: 100 mg Diphenhydramine HCl (Diphenhydramine Hcl 25 Mg Capsule) 50 mg PO Q6H PRN PRN Reason: Allergic Symptoms Last Admin: 04/08/23 20:49 Dose: 50 mg Fluphenazine HCl (Fluphenazine Hcl 2.5 Mg/Ml 10 Ml Vial) 5 mg IM TID PRN PRN Reason: refusal of PO fluphenazine [place] Carbonate ([place] Carbonate Er 450 Mg Tablet.Er) 900 mg PO BEDTIME [facility] Last Admin: 04/13/23 21:13 Dose: 900 mg [place] Carbonate ([place] Carbonate Er 300 Mg Tablet.Er) 300 mg PO DAILY [facility] Last Admin: 04/14/23 08:29 Dose: 300 mg [place] Carbonate ([place] Carbonate Er 450 Mg Tablet.Er) 450 mg PO DAILY [facility] Last Admin: 04/14/23 08:29 Dose: 450 mg Multi-Ingred Cream/Lotion/Oil/Oint (Mineral Oil/Petrolatum,White 106 Gm Tube) 1 appl TOPICAL BID [facility]; Protocol Last Admin: 04/14/23 08:28 Dose: Not Given Polyethylene Glycol (Polyethylene Glycol 3350 17 Gm Powd.Pack) 17 gm PO DAILY PRN PRN Reason: constipation Last Admin: 04/03/23 11:15 Dose: 17 gm Allergies Allergies Allergy/AdvReac Type Severity Reaction Status Date / Time morphine [MORPHINE] AdvReac Unknown NAUSEA Verified 12/10/22 19:56 Assessment & Plan Assessment & Plan (1) Schizoaffective disorder, bipolar type: Status: Acute Code(s): F25.0 - Schizoaffective disorder, bipolar type (2) Nonspecific ST-T wave electrocardiographic changes: Status: Acute Code(s): R94.31 - Abnormal electrocardiogram [ECG] [EKG] (3) Cocaine use disorder: Status: Acute Code(s): F14.10 - Cocaine abuse, uncomplicated (4) Opioid use disorder: Status: Acute Code(s): F11.90 - Opioid use, unspecified, uncomplicated Plan 03/09: Patient presents guarded during 1:1. He reports feeling okay today; states he is sleeping well. Isolative. Pt reports he doesn't go to groups because I don't learn anything . Denies SI/HI/VH/AH. Continue current tx plan. 03/10: Patient presents guarded and brief today. He reports feeling good . Pt stated, I don't need anything Denies SI/HI/VH/AH. 03/11: periods of cogency and periods of apparent thought disorganization. denying Sx but appears to still be RIS and distracted. continue current mgmt for now. 03/12 continue same treatment. 03/13 continue same treatment. 03/14: continue current mgmt. plan to streamline medications regimen prior to discharge. T/C prolixin MENDES. 03/15: Continue current treatment plan. 03/16: streamlining meds today. decrease thorazine PRN availability. start prolixin decanoate tomorrow morning, will decrease PO prolixin by about half once the injection is given. continue other medications for now. 03/17: received prolixin DEC 25 mg today. decrease PO prolixin from 7.5 TID to 5 BID, otherwise continue current mgmt. 03/18: Continue current treatment plan. 03/19: continue current mgmt. noted to have hit himself in the thigh twice apparently in frustration, occasionally mumble to himself, and have a minimal outburst at last evening. likely related to transition from PO prolixin to IM decanoate. 03/20: no change in presentation. continue current mgmt. 03/21: stable. continue current mgmt. 03/22: stable. continue current mgmt. next prolixin DEC dose 03/31, DC PO prolixin at that time. 03/23: Continue current tx plan. 03/24: Patient reports feeling more energetic today ; stated he does not need anything . Presents calm, pleasant. denies SI/HI/VH/AH. Continue current tx plan. 03/25: Continue current tx plan. 03/26: Continue current management and treatment plan. 03/28: continue current mgmt. prolixin DEC 03/31, then DC PO prolixin. planning for discharge late next week. 03/29: change thorazine 100/100/200 to 100/300 for ease of administration post-discharge. prolixin DEC 25 on , DC PO prolixin . otherwise continue current mgmt. 03/30: Continue current tx plan. 03/31: Continue current treatment plan 04/01 continue tx. 04/02 continue tx. 04/03 continue tx. 04/04: increase availability of thorazine to 100 Q4H PRN agitation. some decompensation since second prolixin dec shot and discontinuation of PO fluphenazine. continue current mgmt, wait for MENDES to increase its effect. 04/05: continues with exacerbated psychotic Sx since DC of PO prolixin and initiation of MENDES. continue current mgmt. 04/06: perhaps less overtly psychotic than past couple of days. continue current mgmt. 04/07: remains decompensated from 1-2 weeks prior. continue current mgmt. was informed we will likely need another week of hospitalization. 04/08: no change in presentation or mgmt. 04/10: no changes- got prolixin dec 03/17 and 03/31, next due 04/14 04/11: continue current mgmt. plan to increase dose of prolixin dec. 04/12: no change in presentation. continue current mgmt. increase prolixin DEC dosing from 25 Q2wks to 37.5 Q2wks as of 04/14. 04/13: no change in presentation. continue current mgmt. 04/14: received prolixin DEC 37.5 mg today. no change in presentation. Reason for continued inpatient stay Substantial Risk for: inability to function and rapid decompensation Time Spent With Patient Time: Total time managing care of this patient today ____ minutes.
[2023-04-14 20:00] VITALS: BP 120/72; PULSE 78; RESP 18; TEMP 36.9; O2SAT 96
[2023-04-14] MEDS: carBAMazepine ER 200 MG TAB.ER.12H 600 MG PO (20:46)
[2023-04-14] MEDS: chlorproMAZINE HCl 100 MG TABLET 400 MG PO (20:46)
[2023-04-14] MEDS: Lithium Carbonate ER 450 MG TABLET.ER 900 MG PO (20:47)
[2023-04-15] MEDS: carBAMazepine 200 MG TABLET 400 MG PO (08:37)
[2023-04-15] MEDS: Benztropine Mesylate 1 MG TABLET PO ×2 (08:37→21:13)
[2023-04-15] MEDS: Lithium Carbonate ER 300 MG TABLET.ER PO (08:37)
[2023-04-15] MEDS: Lithium Carbonate ER 450 MG TABLET.ER PO (08:38)
[2023-04-15 08:46] VITALS: BP 120/66; PULSE 84; RESP 18; TEMP 36.3; O2SAT 98
--- NOTE | 2023-04-15 12:32 | HO.PSYCHPN ---
Subjective Subjective Date of Service: 04/15/23 Reason For Visit: Psychosis Interim History: no change in presentation. appears distracted at times, difficulty attending, yet still socially connected. per staff, got proixin DEC 37.5 yesterday, no issues. slept 7 hours overnight. yelling this morning about traumatic memories of previous hospitalization some 7 years ago. Mental Status Exam Mental Status Exam Narrative: Pt is alert and oriented; behavior is calm; dressed in casual attire; mood is described as good; eye contact appropriate; Speech is normal rate, volume and prosody and not pressured; thought process is linear and logical, some HAMLET or poor attention; otherwise pertinent to relevant topics and without any expressed delusional content, paranoid ideations or grandiosity; no SI/HI/VH expressed. acknowledges AH. Diagnostics Vital Signs (24Hr): Vital Signs - 24 hr 04/14/23 20:00 04/15/23 08:46 Temperature 98.5 F 97.3 F Pulse Rate 78 84 Respiratory Rate 18 18 Blood Pressure 120/72 120/66 Pulse Oximetry 96 98 Oxygen Delivery Method Room Air Room Air BMI result Body Mass Index 30.1 Labs 03/03/23 20:10 03/25/23 12:35 Medications Medications Current Medications Acetaminophen (Acetaminophen 325 Mg Tablet) 650 mg PO Q6H PRN PRN Reason: mild pain Last Admin: 04/13/23 08:22 Dose: 650 mg Benztropine Mesylate (Benztropine Mesylate 1 Mg Tablet) 1 mg PO BID [facility] Last Admin: 04/15/23 08:37 Dose: 1 mg Carbamazepine (Carbamazepine 200 Mg Tablet) 400 mg PO DAILY [facility] Last Admin: 04/15/23 08:37 Dose: 400 mg Carbamazepine (Carbamazepine Er 200 Mg Tab.Er.12h) 600 mg PO BEDTIME [facility] Last Admin: 04/14/23 20:46 Dose: 600 mg Chlorpromazine HCl (Chlorpromazine Hcl 100 Mg Tablet) 400 mg PO BEDTIME [facility] Last Admin: 04/14/23 20:46 Dose: 400 mg Chlorpromazine HCl (Chlorpromazine Hcl 100 Mg Tablet) 100 mg PO Q4H PRN PRN Reason: agitation/anxiety Last Admin: 04/12/23 15:51 Dose: 100 mg Diphenhydramine HCl (Diphenhydramine Hcl 25 Mg Capsule) 50 mg PO Q6H PRN PRN Reason: Allergic Symptoms Last Admin: 04/08/23 20:49 Dose: 50 mg Fluphenazine HCl (Fluphenazine Hcl 2.5 Mg/Ml 10 Ml Vial) 5 mg IM TID PRN PRN Reason: refusal of PO fluphenazine [place] Carbonate ([place] Carbonate Er 450 Mg Tablet.Er) 900 mg PO BEDTIME [facility] Last Admin: 04/14/23 20:47 Dose: 900 mg [place] Carbonate ([place] Carbonate Er 300 Mg Tablet.Er) 300 mg PO DAILY [facility] Last Admin: 04/15/23 08:37 Dose: 300 mg [place] Carbonate ([place] Carbonate Er 450 Mg Tablet.Er) 450 mg PO DAILY [facility] Last Admin: 04/15/23 08:38 Dose: 450 mg Multi-Ingred Cream/Lotion/Oil/Oint (Mineral Oil/Petrolatum,White 106 Gm Tube) 1 appl TOPICAL BID [facility]; Protocol Last Admin: 04/15/23 08:39 Dose: Not Given Polyethylene Glycol (Polyethylene Glycol 3350 17 Gm Powd.Pack) 17 gm PO DAILY PRN PRN Reason: constipation Last Admin: 04/03/23 11:15 Dose: 17 gm Allergies Allergies Allergy/AdvReac Type Severity Reaction Status Date / Time morphine [MORPHINE] AdvReac Unknown NAUSEA Verified 12/10/22 19:56 Assessment & Plan Assessment & Plan (1) Schizoaffective disorder, bipolar type: Status: Acute Code(s): F25.0 - Schizoaffective disorder, bipolar type (2) Nonspecific ST-T wave electrocardiographic changes: Status: Acute Code(s): R94.31 - Abnormal electrocardiogram [ECG] [EKG] (3) Cocaine use disorder: Status: Acute Code(s): F14.10 - Cocaine abuse, uncomplicated (4) Opioid use disorder: Status: Acute Code(s): F11.90 - Opioid use, unspecified, uncomplicated Plan 03/09: Patient presents guarded during 1:1. He reports feeling okay today; states he is sleeping well. Isolative. Pt reports he doesn't go to groups because I don't learn anything . Denies SI/HI/VH/AH. Continue current tx plan. 03/10: Patient presents guarded and brief today. He reports feeling good . Pt stated, I don't need anything Denies SI/HI/VH/AH. 03/11: periods of cogency and periods of apparent thought disorganization. denying Sx but appears to still be RIS and distracted. continue current mgmt for now. 03/12 continue same treatment. 03/13 continue same treatment. 03/14: continue current mgmt. plan to streamline medications regimen prior to discharge. T/C prolixin MENDES. 03/15: Continue current treatment plan. 03/16: streamlining meds today. decrease thorazine PRN availability. start prolixin decanoate tomorrow morning, will decrease PO prolixin by about half once the injection is given. continue other medications for now. 03/17: received prolixin DEC 25 mg today. decrease PO prolixin from 7.5 TID to 5 BID, otherwise continue current mgmt. 03/18: Continue current treatment plan. 03/19: continue current mgmt. noted to have hit himself in the thigh twice apparently in frustration, occasionally mumble to himself, and have a minimal outburst at last evening. likely related to transition from PO prolixin to IM decanoate. 03/20: no change in presentation. continue current mgmt. 03/21: stable. continue current mgmt. 03/22: stable. continue current mgmt. next prolixin DEC dose 03/31, DC PO prolixin at that time. 03/23: Continue current tx plan. 03/24: Patient reports feeling more energetic today ; stated he does not need anything . Presents calm, pleasant. denies SI/HI/VH/AH. Continue current tx plan. 03/25: Continue current tx plan. 03/26: Continue current management and treatment plan. 03/28: continue current mgmt. prolixin DEC 03/31, then DC PO prolixin. planning for discharge late next week. 03/29: change thorazine 100/100/200 to 100/300 for ease of administration post-discharge. prolixin DEC 25 on , DC PO prolixin . otherwise continue current mgmt. 03/30: Continue current tx plan. 03/31: Continue current treatment plan 04/01 continue tx. 04/02 continue tx. 04/03 continue tx. 04/04: increase availability of thorazine to 100 Q4H PRN agitation. some decompensation since second prolixin dec shot and discontinuation of PO fluphenazine. continue current mgmt, wait for MENDES to increase its effect. 04/05: continues with exacerbated psychotic Sx since DC of PO prolixin and initiation of MENDES. continue current mgmt. 04/06: perhaps less overtly psychotic than past couple of days. continue current mgmt. 04/07: remains decompensated from 1-2 weeks prior. continue current mgmt. was informed we will likely need another week of hospitalization. 04/08: no change in presentation or mgmt. 04/10: no changes- got prolixin dec 03/17 and 03/31, next due 04/14 04/11: continue current mgmt. plan to increase dose of prolixin dec. 04/12: no change in presentation. continue current mgmt. increase prolixin DEC dosing from 25 Q2wks to 37.5 Q2wks as of 04/14. 04/13: no change in presentation. continue current mgmt. 04/14: received prolixin DEC 37.5 mg today. no change in presentation. 04/15: stable, symptomatic with regard to previous presentation on PO prolixin. continue current mgmt. Reason for continued inpatient stay Substantial Risk for: inability to function and rapid decompensation Time Spent With Patient Time: Total time managing care of this patient today __25__ minutes.
[2023-04-15 20:20] VITALS: BP 133/67; PULSE 81; RESP 18; TEMP 36.2; O2SAT 97
[2023-04-15] MEDS: chlorproMAZINE HCl 100 MG TABLET 400 MG PO (21:13)
[2023-04-15] MEDS: Lithium Carbonate ER 450 MG TABLET.ER 900 MG PO (21:13)
[2023-04-15] MEDS: carBAMazepine ER 200 MG TAB.ER.12H 600 MG PO (21:13)
[2023-04-16] MEDS: diphenhydrAMINE HCL 25 MG CAPSULE 50 MG PO (02:31)
[2023-04-16 08:00] VITALS: BP 121/76; PULSE 74; RESP 16; TEMP 36.7; O2SAT 98
[2023-04-16] MEDS: Lithium Carbonate ER 450 MG TABLET.ER PO (09:59)
[2023-04-16] MEDS: Lithium Carbonate ER 300 MG TABLET.ER PO (09:59)
[2023-04-16] MEDS: Benztropine Mesylate 1 MG TABLET PO ×2 (09:59→22:12)
[2023-04-16] MEDS: carBAMazepine 200 MG TABLET 400 MG PO (09:59)
--- NOTE | 2023-04-16 14:29 | P.PNPSI_ITS ---
Subjective Subjective Date of Service: 04/16/23 Reason For Visit: Psychosis Subjective Notes: Section 7 and Section 8 Interim History: The nursing staff reported the patient have a sporadic verbal outburst fighting with his auditory hallucinations. On interview the patient denies new symptoms he states that he is doing fine by later on I saw him responding to internal stimuli. He refused any intervention at this moment. Mental Status Exam Mental Status Exam Patient Appearance: Appropriate Patient Orientation: Person and Situation Level of Consciousness: Awake Patient Behavior: Guarded and Passive Mood Description: Withdrawn Affect Description: Constricted Patient Cognition Impaired: Yes Ability to Follow Directions: Good Speech Pattern: Clear Hallucinations: None Delusions: Paranoid Ideation Thought Process: Distracted and Slowed Thinking Thought Content: positive for [place], positive for Poverty of Content and positive for Thought Blocking Judgement: Poor Diagnostics Vital Signs (24Hr): Vital Signs - 24 hr 04/15/23 20:20 04/16/23 08:00 Temperature 97.2 F 98.0 F Pulse Rate 81 74 Respiratory Rate 18 16 Blood Pressure 133/67 121/76 Pulse Oximetry 97 98 Oxygen Delivery Method Room Air Room Air BMI result Body Mass Index 30.1 Labs 03/03/23 20:10 03/25/23 12:35 Medications Medications Current Medications Acetaminophen (Acetaminophen 325 Mg Tablet) 650 mg PO Q6H PRN PRN Reason: mild pain Last Admin: 04/13/23 08:22 Dose: 650 mg Benztropine Mesylate (Benztropine Mesylate 1 Mg Tablet) 1 mg PO BID [facility] Last Admin: 04/16/23 09:59 Dose: 1 mg Carbamazepine (Carbamazepine 200 Mg Tablet) 400 mg PO DAILY [facility] Last Admin: 04/16/23 09:59 Dose: 400 mg Carbamazepine (Carbamazepine Er 200 Mg Tab.Er.12h) 600 mg PO BEDTIME [facility] Last Admin: 04/15/23 21:13 Dose: 600 mg Chlorpromazine HCl (Chlorpromazine Hcl 100 Mg Tablet) 400 mg PO BEDTIME [facility] Last Admin: 04/15/23 21:13 Dose: 400 mg Chlorpromazine HCl (Chlorpromazine Hcl 100 Mg Tablet) 100 mg PO Q4H PRN PRN Reason: agitation/anxiety Last Admin: 04/12/23 15:51 Dose: 100 mg Diphenhydramine HCl (Diphenhydramine Hcl 25 Mg Capsule) 50 mg PO Q6H PRN PRN Reason: Allergic Symptoms Last Admin: 04/16/23 02:31 Dose: 50 mg Fluphenazine HCl (Fluphenazine Hcl 2.5 Mg/Ml 10 Ml Vial) 5 mg IM TID PRN PRN Reason: refusal of PO fluphenazine [place] Carbonate ([place] Carbonate Er 450 Mg Tablet.Er) 900 mg PO BEDTIME [facility] Last Admin: 04/15/23 21:13 Dose: 900 mg [place] Carbonate ([place] Carbonate Er 300 Mg Tablet.Er) 300 mg PO DAILY [facility] Last Admin: 04/16/23 09:59 Dose: 300 mg [place] Carbonate ([place] Carbonate Er 450 Mg Tablet.Er) 450 mg PO DAILY [facility] Last Admin: 04/16/23 09:59 Dose: 450 mg Multi-Ingred Cream/Lotion/Oil/Oint (Mineral Oil/Petrolatum,White 106 Gm Tube) 1 appl TOPICAL BID [facility]; Protocol Last Admin: 04/16/23 10:01 Dose: Not Given Polyethylene Glycol (Polyethylene Glycol 3350 17 Gm Powd.Pack) 17 gm PO DAILY PRN PRN Reason: constipation Last Admin: 04/03/23 11:15 Dose: 17 gm Allergies Allergies Allergy/AdvReac Type Severity Reaction Status Date / Time morphine [MORPHINE] AdvReac Unknown NAUSEA Verified 12/10/22 19:56 Assessment & Plan Assessment & Plan (1) Schizoaffective disorder, bipolar type: Status: Acute Code(s): F25.0 - Schizoaffective disorder, bipolar type (2) Nonspecific ST-T wave electrocardiographic changes: Status: Acute Code(s): R94.31 - Abnormal electrocardiogram [ECG] [EKG] (3) Cocaine use disorder: Status: Acute Code(s): F14.10 - Cocaine abuse, uncomplicated (4) Opioid use disorder: Status: Acute Code(s): F11.90 - Opioid use, unspecified, uncomplicated Plan 03/09: Patient presents guarded during 1:1. He reports feeling okay today; states he is sleeping well. Isolative. Pt reports he doesn't go to groups because I don't learn anything . Denies SI/HI/VH/AH. Continue current tx plan. 03/10: Patient presents guarded and brief today. He reports feeling good . Pt stated, I don't need anything Denies SI/HI/VH/AH. 03/11: periods of cogency and periods of apparent thought disorganization. denying Sx but appears to still be RIS and distracted. continue current mgmt for now. 03/12 continue same treatment. 03/13 continue same treatment. 03/14: continue current mgmt. plan to streamline medications regimen prior to discharge. T/C prolixin MENDES. 03/15: Continue current treatment plan. 03/16: streamlining meds today. decrease thorazine PRN availability. start prolixin decanoate tomorrow morning, will decrease PO prolixin by about half once the injection is given. continue other medications for now. 03/17: received prolixin DEC 25 mg today. decrease PO prolixin from 7.5 TID to 5 BID, otherwise continue current mgmt. 03/18: Continue current treatment plan. 03/19: continue current mgmt. noted to have hit himself in the thigh twice apparently in frustration, occasionally mumble to himself, and have a minimal outburst at last evening. likely related to transition from PO prolixin to IM decanoate. 03/20: no change in presentation. continue current mgmt. 03/21: stable. continue current mgmt. 03/22: stable. continue current mgmt. next prolixin DEC dose 03/31, DC PO prolixin at that time. 03/23: Continue current tx plan. 03/24: Patient reports feeling more energetic today ; stated he does not need anything . Presents calm, pleasant. denies SI/HI/VH/AH. Continue current tx plan. 03/25: Continue current tx plan. 03/26: Continue current management and treatment plan. 03/28: continue current mgmt. prolixin DEC 03/31, then DC PO prolixin. planning for discharge late next week. 03/29: change thorazine 100/100/200 to 100/300 for ease of administration post- discharge. prolixin DEC 25 on , DC PO prolixin . otherwise continue current mgmt. 03/30: Continue current tx plan. 03/31: Continue current treatment plan 04/01 continue tx. 04/02 continue tx. 04/03 continue tx. 04/04: increase availability of thorazine to 100 Q4H PRN agitation. some decompensation since second prolixin dec shot and discontinuation of PO fluphenazine. continue current mgmt, wait for MENDES to increase its effect. 04/05: continues with exacerbated psychotic Sx since DC of PO prolixin and initiation of MENDES. continue current mgmt. 04/06: perhaps less overtly psychotic than past couple of days. continue current mgmt. 04/07: remains decompensated from 1-2 weeks prior. continue current mgmt. was informed we will likely need another week of hospitalization. 04/08: no change in presentation or mgmt. 04/10: no changes- got prolixin dec 03/17 and 03/31, next due 04/14 04/11: continue current mgmt. plan to increase dose of prolixin dec. 04/12: no change in presentation. continue current mgmt. increase prolixin DEC dosing from 25 Q2wks to 37.5 Q2wks as of 04/14. 04/13: no change in presentation. continue current mgmt. 04/14: received prolixin DEC 37.5 mg today. no change in presentation. 04/15: stable, symptomatic with regard to previous presentation on PO prolixin. continue current mgmt. 04/16 keep same treatment Reason for continued inpatient stay Substantial Risk for: inability to function, rapid decompensation and med/psych decompensation Time Spent With Patient Time: Total time managing care of this patient today __20__ minutes.
[2023-04-16 20:50] VITALS: BP 117/67; PULSE 66; RESP 18; TEMP 36.7; O2SAT 98
[2023-04-16] MEDS: Lithium Carbonate ER 450 MG TABLET.ER 900 MG PO (22:12)
[2023-04-16] MEDS: chlorproMAZINE HCl 100 MG TABLET 400 MG PO (22:12)
[2023-04-16] MEDS: carBAMazepine ER 200 MG TAB.ER.12H 600 MG PO (22:12)
[2023-04-17 07:45] VITALS: BP 109/60; PULSE 67; RESP 16; TEMP 37.2; O2SAT 99
[2023-04-17] MEDS: Lithium Carbonate ER 450 MG TABLET.ER PO (09:52)
[2023-04-17] MEDS: Lithium Carbonate ER 300 MG TABLET.ER PO (09:52)
[2023-04-17] MEDS: carBAMazepine 200 MG TABLET 400 MG PO (09:53)
[2023-04-17] MEDS: Benztropine Mesylate 1 MG TABLET PO ×2 (09:53→22:10)
--- NOTE | 2023-04-17 14:12 | P.PNPSI_ITS ---
Subjective Subjective Date of Service: 04/17/23 Reason For Visit: Psychosis Subjective Notes: Conditional Voluntary Interim History: The nursing staff reported that yesterday the patient had been responding to internal stimuli and auditory hallucinations but refused p.r.n.. In the evening he stated that he was loud responding to his voices. Today in the morning he was more calm and refused new medications. On interview the patient denies new symptoms, chronically psychotic Mental Status Exam Mental Status Exam Patient Appearance: Well Grooomed Patient Orientation: Person and Situation Level of Consciousness: Awake and Appropriate Patient Behavior: Guarded and Passive Mood Description: Withdrawn Affect Description: Constricted Patient Cognition Impaired: Yes Ability to Follow Directions: Good Speech Pattern: Clear Hallucinations: Auditory Delusions: Paranoid Ideation Thought Process: Distracted and Slowed Thinking Thought Content: positive for Fries and positive for Poverty of Content Judgement: Poor Diagnostics Vital Signs (24Hr): Vital Signs - 24 hr 04/16/23 20:50 04/17/23 07:45 Temperature 98.1 F 98.9 F Pulse Rate 66 67 Respiratory Rate 18 16 Blood Pressure 117/67 109/60 Pulse Oximetry 98 99 Oxygen Delivery Method Room Air Room Air BMI result Body Mass Index 30.1 Labs 03/03/23 20:10 03/25/23 12:35 Medications Medications Current Medications Acetaminophen (Acetaminophen 325 Mg Tablet) 650 mg PO Q6H PRN PRN Reason: mild pain Last Admin: 04/13/23 08:22 Dose: 650 mg Benztropine Mesylate (Benztropine Mesylate 1 Mg Tablet) 1 mg PO BID [facility] Last Admin: 04/17/23 09:53 Dose: 1 mg Carbamazepine (Carbamazepine 200 Mg Tablet) 400 mg PO DAILY [facility] Last Admin: 04/17/23 09:53 Dose: 400 mg Carbamazepine (Carbamazepine Er 200 Mg Tab.Er.12h) 600 mg PO BEDTIME [facility] Last Admin: 04/16/23 22:12 Dose: 600 mg Chlorpromazine HCl (Chlorpromazine Hcl 100 Mg Tablet) 400 mg PO BEDTIME [facility] Last Admin: 04/16/23 22:12 Dose: 400 mg Chlorpromazine HCl (Chlorpromazine Hcl 100 Mg Tablet) 100 mg PO Q4H PRN PRN Reason: agitation/anxiety Last Admin: 04/12/23 15:51 Dose: 100 mg Diphenhydramine HCl (Diphenhydramine Hcl 25 Mg Capsule) 50 mg PO Q6H PRN PRN Reason: Allergic Symptoms Last Admin: 04/16/23 02:31 Dose: 50 mg Fluphenazine HCl (Fluphenazine Hcl 2.5 Mg/Ml 10 Ml Vial) 5 mg IM TID PRN PRN Reason: refusal of PO fluphenazine [place] Carbonate ([place] Carbonate Er 450 Mg Tablet.Er) 900 mg PO BEDTIME [facility] Last Admin: 04/16/23 22:12 Dose: 900 mg [place] Carbonate ([place] Carbonate Er 300 Mg Tablet.Er) 300 mg PO DAILY [facility] Last Admin: 04/17/23 09:52 Dose: 300 mg [place] Carbonate ([place] Carbonate Er 450 Mg Tablet.Er) 450 mg PO DAILY [facility] Last Admin: 04/17/23 09:52 Dose: 450 mg Multi-Ingred Cream/Lotion/Oil/Oint (Mineral Oil/Petrolatum,White 106 Gm Tube) 1 appl TOPICAL BID [facility]; Protocol Last Admin: 04/17/23 09:53 Dose: Not Given Polyethylene Glycol (Polyethylene Glycol 3350 17 Gm Powd.Pack) 17 gm PO DAILY PRN PRN Reason: constipation Last Admin: 04/03/23 11:15 Dose: 17 gm Allergies Allergies Allergy/AdvReac Type Severity Reaction Status Date / Time morphine [MORPHINE] AdvReac Unknown NAUSEA Verified 12/10/22 19:56 Assessment & Plan Assessment & Plan (1) Schizoaffective disorder, bipolar type: Status: Acute Code(s): F25.0 - Schizoaffective disorder, bipolar type (2) Nonspecific ST-T wave electrocardiographic changes: Status: Acute Code(s): R94.31 - Abnormal electrocardiogram [ECG] [EKG] (3) Cocaine use disorder: Status: Acute Code(s): F14.10 - Cocaine abuse, uncomplicated (4) Opioid use disorder: Status: Acute Code(s): F11.90 - Opioid use, unspecified, uncomplicated Plan 03/09: Patient presents guarded during 1:1. He reports feeling okay today; states he is sleeping well. Isolative. Pt reports he doesn't go to groups because I don't learn anything . Denies SI/HI/VH/AH. Continue current tx plan. 03/10: Patient presents guarded and brief today. He reports feeling good . Pt stated, I don't need anything Denies SI/HI/VH/AH. 03/11: periods of cogency and periods of apparent thought disorganization. denying Sx but appears to still be RIS and distracted. continue current mgmt for now. 03/12 continue same treatment. 03/13 continue same treatment. 03/14: continue current mgmt. plan to streamline medications regimen prior to discharge. T/C prolixin MENDES. 03/15: Continue current treatment plan. 03/16: streamlining meds today. decrease thorazine PRN availability. start prolixin decanoate tomorrow morning, will decrease PO prolixin by about half once the injection is given. continue other medications for now. 03/17: received prolixin DEC 25 mg today. decrease PO prolixin from 7.5 TID to 5 BID, otherwise continue current mgmt. 03/18: Continue current treatment plan. 03/19: continue current mgmt. noted to have hit himself in the thigh twice apparently in frustration, occasionally mumble to himself, and have a minimal outburst at last evening. likely related to transition from PO prolixin to IM decanoate. 03/20: no change in presentation. continue current mgmt. 03/21: stable. continue current mgmt. 03/22: stable. continue current mgmt. next prolixin DEC dose 03/31, DC PO prolixin at that time. 03/23: Continue current tx plan. 03/24: Patient reports feeling more energetic today ; stated he does not need anything . Presents calm, pleasant. denies SI/HI/VH/AH. Continue current tx plan. 03/25: Continue current tx plan. 03/26: Continue current management and treatment plan. 03/28: continue current mgmt. prolixin DEC 03/31, then DC PO prolixin. planning for discharge late next week. 03/29: change thorazine 100/100/200 to 100/300 for ease of administration post- discharge. prolixin DEC 25 on , DC PO prolixin . otherwise continue current mgmt. 03/30: Continue current tx plan. 03/31: Continue current treatment plan 04/01 continue tx. 04/02 continue tx. 04/03 continue tx. 04/04: increase availability of thorazine to 100 Q4H PRN agitation. some decompensation since second prolixin dec shot and discontinuation of PO fluphenazine. continue current mgmt, wait for MENDES to increase its effect. 04/05: continues with exacerbated psychotic Sx since DC of PO prolixin and initiation of MENDES. continue current mgmt. 04/06: perhaps less overtly psychotic than past couple of days. continue current mgmt. 04/07: remains decompensated from 1-2 weeks prior. continue current mgmt. was informed we will likely need another week of hospitalization. 04/08: no change in presentation or mgmt. 04/10: no changes- got prolixin dec 03/17 and 03/31, next due 04/14 04/11: continue current mgmt. plan to increase dose of prolixin dec. 04/12: no change in presentation. continue current mgmt. increase prolixin DEC dosing from 25 Q2wks to 37.5 Q2wks as of 04/14. 04/13: no change in presentation. continue current mgmt. 04/14: received prolixin DEC 37.5 mg today. no change in presentation. 04/15: stable, symptomatic with regard to previous presentation on PO prolixin. continue current mgmt. 04/16 keep same treatment 04/17 keep same treatment Reason for continued inpatient stay Substantial Risk for: inability to function, rapid decompensation and med/psych decompensation Time Spent With Patient Time: Total time managing care of this patient today __20__ minutes.
[2023-04-17 19:15] VITALS: BP 132/63; PULSE 75; RESP 18; TEMP 36.1; O2SAT 98
[2023-04-17] MEDS: chlorproMAZINE HCl 100 MG TABLET 400 MG PO (22:09)
[2023-04-17] MEDS: carBAMazepine ER 200 MG TAB.ER.12H 600 MG PO (22:10)
[2023-04-17] MEDS: Lithium Carbonate ER 450 MG TABLET.ER 900 MG PO (22:10)
[2023-04-18 07:15] VITALS: BP 109/61; PULSE 63; RESP 18; TEMP 36.6; O2SAT 97
[2023-04-18] MEDS: Lithium Carbonate ER 300 MG TABLET.ER PO (09:47)
[2023-04-18] MEDS: Benztropine Mesylate 1 MG TABLET PO ×2 (09:47→21:53)
[2023-04-18] MEDS: Lithium Carbonate ER 450 MG TABLET.ER PO (09:48)
[2023-04-18] MEDS: carBAMazepine 200 MG TABLET 400 MG PO (09:48)
--- NOTE | 2023-04-18 16:09 | HO.PSYCHPN ---
Subjective Subjective Date of Service: 04/18/23 Reason For Visit: Psychosis Interim History: no change in presentation. per staff, no change in presentation over the w/e. Mental Status Exam Mental Status Exam Narrative: Pt is alert and oriented; behavior is calm; dressed in casual attire; mood is described as good; eye contact appropriate; Speech is normal rate, volume and prosody and not pressured; thought process is linear and logical, some HAMLET or poor attention; otherwise pertinent to relevant topics and without any expressed delusional content, paranoid ideations or grandiosity; no SI/HI/VH expressed. acknowledges AH. Diagnostics Vital Signs (24Hr): Vital Signs - 24 hr 04/17/23 19:15 04/18/23 07:15 04/18/23 07:15 Temperature 97 F 97.9 F 97.9 F Pulse Rate 75 63 63 Respiratory Rate 18 18 18 Blood Pressure 132/63 109/61 109/61 Pulse Oximetry 98 97 97 Oxygen Delivery Method Room Air Room Air Room Air BMI result Body Mass Index 30.1 Labs 03/03/23 20:10 03/25/23 12:35 Medications Medications Current Medications Acetaminophen (Acetaminophen 325 Mg Tablet) 650 mg PO Q6H PRN PRN Reason: mild pain Last Admin: 04/13/23 08:22 Dose: 650 mg Benztropine Mesylate (Benztropine Mesylate 1 Mg Tablet) 1 mg PO BID [facility] Last Admin: 04/18/23 09:47 Dose: 1 mg Carbamazepine (Carbamazepine 200 Mg Tablet) 400 mg PO DAILY [facility] Last Admin: 04/18/23 09:48 Dose: 400 mg Carbamazepine (Carbamazepine Er 200 Mg Tab.Er.12h) 600 mg PO BEDTIME [facility] Last Admin: 04/17/23 22:10 Dose: 600 mg Chlorpromazine HCl (Chlorpromazine Hcl 100 Mg Tablet) 400 mg PO BEDTIME [facility] Last Admin: 04/17/23 22:09 Dose: 400 mg Chlorpromazine HCl (Chlorpromazine Hcl 100 Mg Tablet) 100 mg PO Q4H PRN PRN Reason: agitation/anxiety Last Admin: 04/12/23 15:51 Dose: 100 mg Diphenhydramine HCl (Diphenhydramine Hcl 25 Mg Capsule) 50 mg PO Q6H PRN PRN Reason: Allergic Symptoms Last Admin: 04/16/23 02:31 Dose: 50 mg Fluphenazine HCl (Fluphenazine Hcl 2.5 Mg/Ml 10 Ml Vial) 5 mg IM TID PRN PRN Reason: refusal of PO fluphenazine [place] Carbonate ([place] Carbonate Er 450 Mg Tablet.Er) 900 mg PO BEDTIME [facility] Last Admin: 04/17/23 22:10 Dose: 900 mg [place] Carbonate ([place] Carbonate Er 300 Mg Tablet.Er) 300 mg PO DAILY [facility] Last Admin: 04/18/23 09:47 Dose: 300 mg [place] Carbonate ([place] Carbonate Er 450 Mg Tablet.Er) 450 mg PO DAILY [facility] Last Admin: 04/18/23 09:48 Dose: 450 mg Multi-Ingred Cream/Lotion/Oil/Oint (Mineral Oil/Petrolatum,White 106 Gm Tube) 1 appl TOPICAL BID [facility]; Protocol Last Admin: 04/18/23 09:50 Dose: Not Given Polyethylene Glycol (Polyethylene Glycol 3350 17 Gm Powd.Pack) 17 gm PO DAILY PRN PRN Reason: constipation Last Admin: 04/03/23 11:15 Dose: 17 gm Allergies Allergies Allergy/AdvReac Type Severity Reaction Status Date / Time morphine [MORPHINE] AdvReac Unknown NAUSEA Verified 12/10/22 19:56 Assessment & Plan Assessment & Plan (1) Schizoaffective disorder, bipolar type: Status: Acute Code(s): F25.0 - Schizoaffective disorder, bipolar type (2) Nonspecific ST-T wave electrocardiographic changes: Status: Acute Code(s): R94.31 - Abnormal electrocardiogram [ECG] [EKG] (3) Cocaine use disorder: Status: Acute Code(s): F14.10 - Cocaine abuse, uncomplicated (4) Opioid use disorder: Status: Acute Code(s): F11.90 - Opioid use, unspecified, uncomplicated Plan 03/09: Patient presents guarded during 1:1. He reports feeling okay today; states he is sleeping well. Isolative. Pt reports he doesn't go to groups because I don't learn anything . Denies SI/HI/VH/AH. Continue current tx plan. 03/10: Patient presents guarded and brief today. He reports feeling good . Pt stated, I don't need anything Denies SI/HI/VH/AH. 03/11: periods of cogency and periods of apparent thought disorganization. denying Sx but appears to still be RIS and distracted. continue current mgmt for now. 03/12 continue same treatment. 03/13 continue same treatment. 03/14: continue current mgmt. plan to streamline medications regimen prior to discharge. T/C prolixin MENDES. 03/15: Continue current treatment plan. 03/16: streamlining meds today. decrease thorazine PRN availability. start prolixin decanoate tomorrow morning, will decrease PO prolixin by about half once the injection is given. continue other medications for now. 03/17: received prolixin DEC 25 mg today. decrease PO prolixin from 7.5 TID to 5 BID, otherwise continue current mgmt. 03/18: Continue current treatment plan. 03/19: continue current mgmt. noted to have hit himself in the thigh twice apparently in frustration, occasionally mumble to himself, and have a minimal outburst at [facility] last evening. likely related to transition from PO prolixin to IM decanoate. 03/20: no change in presentation. continue current mgmt. 03/21: stable. continue current mgmt. 03/22: stable. continue current mgmt. next prolixin DEC dose 03/31, DC PO prolixin at that time. 03/23: Continue current tx plan. 03/24: Patient reports feeling more energetic today ; stated he does not need anything . Presents calm, pleasant. denies SI/HI/VH/AH. Continue current tx plan. 03/25: Continue current tx plan. 03/26: Continue current management and treatment plan. 03/28: continue current mgmt. prolixin DEC 03/31, then DC PO prolixin. planning for discharge late next week. 03/29: change thorazine 100/100/200 to 100/300 for ease of administration post-discharge. prolixin DEC 25 on , DC PO prolixin . otherwise continue current mgmt. 03/30: Continue current tx plan. 03/31: Continue current treatment plan 04/01 continue tx. 04/02 continue tx. 04/03 continue tx. 04/04: increase availability of thorazine to 100 Q4H PRN agitation. some decompensation since second prolixin dec shot and discontinuation of PO fluphenazine. continue current mgmt, wait for MENDES to increase its effect. 04/05: continues with exacerbated psychotic Sx since DC of PO prolixin and initiation of MENDES. continue current mgmt. 04/06: perhaps less overtly psychotic than past couple of days. continue current mgmt. 04/07: remains decompensated from 1-2 weeks prior. continue current mgmt. was informed we will likely need another week of hospitalization. 04/08: no change in presentation or mgmt. 04/10: no changes- got prolixin dec 03/17 and 03/31, next due 04/14 04/11: continue current mgmt. plan to increase dose of prolixin dec. 04/12: no change in presentation. continue current mgmt. increase prolixin DEC dosing from 25 Q2wks to 37.5 Q2wks as of 04/14. 04/13: no change in presentation. continue current mgmt. 04/14: received prolixin DEC 37.5 mg today. no change in presentation. 04/15: stable, symptomatic with regard to previous presentation on PO prolixin. continue current mgmt. 04/16 keep same treatment 04/17 keep same treatment 04/18: no change in presentation from last week. able to engage better with staff, yet struggling with AH, sometimes yelling out. Reason for continued inpatient stay Substantial Risk for: inability to function and rapid decompensation Time Spent With Patient Time: Total time managing care of this patient today __25__ minutes.
[2023-04-18 19:15] VITALS: BP 118/71; PULSE 79; RESP 16; TEMP 36.9; O2SAT 96
[2023-04-18] MEDS: Lithium Carbonate ER 450 MG TABLET.ER 900 MG PO (21:53)
[2023-04-18] MEDS: chlorproMAZINE HCl 100 MG TABLET 400 MG PO (21:53)
[2023-04-18] MEDS: carBAMazepine ER 200 MG TAB.ER.12H 600 MG PO (21:53)
[2023-04-19 07:43] VITALS: BP 117/62; PULSE 64; RESP 16; TEMP 36.7; O2SAT 99
[2023-04-19] MEDS: carBAMazepine 200 MG TABLET 400 MG PO (09:31)
[2023-04-19] MEDS: Lithium Carbonate ER 300 MG TABLET.ER PO (09:32)
[2023-04-19] MEDS: Benztropine Mesylate 1 MG TABLET PO ×2 (09:32→20:07)
[2023-04-19] MEDS: Lithium Carbonate ER 450 MG TABLET.ER PO (09:32)
--- NOTE | 2023-04-19 15:48 | P.PNPSI_ITS ---
Subjective Subjective Date of Service: 04/19/23 Reason For Visit: Psychosis Interim History: no change in presentation. per staff, refused PO meds x 2 yesterday, then finally took them on third attempt. denies any symptoms or problems. walking the halls. Mental Status Exam Mental Status Exam Narrative: Pt is alert and oriented; behavior is calm; dressed in casual attire; mood is described as good; eye contact appropriate; Speech is normal rate, volume and prosody and not pressured; thought process is linear and logical, some HAMLET or poor attention; otherwise pertinent to relevant topics and without any expressed delusional content, paranoid ideations or grandiosity; no SI/HI/VH expressed. acknowledges AH. Diagnostics Vital Signs (24Hr): Vital Signs - 24 hr 04/18/23 19:15 04/19/23 07:43 Temperature 98.5 F 98.0 F Pulse Rate 79 64 Respiratory Rate 16 16 Blood Pressure 118/71 117/62 Pulse Oximetry 96 99 Oxygen Delivery Method Room Air Room Air BMI result Body Mass Index 30.1 Labs 03/03/23 20:10 03/25/23 12:35 Medications Medications Current Medications Acetaminophen (Acetaminophen 325 Mg Tablet) 650 mg PO Q6H PRN PRN Reason: mild pain Last Admin: 04/13/23 08:22 Dose: 650 mg Benztropine Mesylate (Benztropine Mesylate 1 Mg Tablet) 1 mg PO BID [facility] Last Admin: 04/19/23 09:32 Dose: 1 mg Carbamazepine (Carbamazepine 200 Mg Tablet) 400 mg PO DAILY [facility] Last Admin: 04/19/23 09:31 Dose: 400 mg Carbamazepine (Carbamazepine Er 200 Mg Tab.Er.12h) 600 mg PO BEDTIME [facility] Last Admin: 04/18/23 21:53 Dose: 600 mg Chlorpromazine HCl (Chlorpromazine Hcl 100 Mg Tablet) 400 mg PO BEDTIME [facility] Last Admin: 04/18/23 21:53 Dose: 400 mg Chlorpromazine HCl (Chlorpromazine Hcl 100 Mg Tablet) 100 mg PO Q4H PRN PRN Reason: agitation/anxiety Last Admin: 04/12/23 15:51 Dose: 100 mg Diphenhydramine HCl (Diphenhydramine Hcl 25 Mg Capsule) 50 mg PO Q6H PRN PRN Reason: Allergic Symptoms Last Admin: 04/16/23 02:31 Dose: 50 mg Fluphenazine HCl (Fluphenazine Hcl 2.5 Mg/Ml 10 Ml Vial) 5 mg IM TID PRN PRN Reason: refusal of PO fluphenazine [place] Carbonate ([place] Carbonate Er 450 Mg Tablet.Er) 900 mg PO BEDTIME [facility] Last Admin: 04/18/23 21:53 Dose: 900 mg [place] Carbonate ([place] Carbonate Er 300 Mg Tablet.Er) 300 mg PO DAILY [facility] Last Admin: 04/19/23 09:32 Dose: 300 mg [place] Carbonate ([place] Carbonate Er 450 Mg Tablet.Er) 450 mg PO DAILY [facility] Last Admin: 04/19/23 09:32 Dose: 450 mg Multi-Ingred Cream/Lotion/Oil/Oint (Mineral Oil/Petrolatum,White 106 Gm Tube) 1 appl TOPICAL BID [facility]; Protocol Last Admin: 04/19/23 09:34 Dose: Not Given Polyethylene Glycol (Polyethylene Glycol 3350 17 Gm Powd.Pack) 17 gm PO DAILY PRN PRN Reason: constipation Last Admin: 04/03/23 11:15 Dose: 17 gm Allergies Allergies Allergy/AdvReac Type Severity Reaction Status Date / Time morphine [MORPHINE] AdvReac Unknown NAUSEA Verified 12/10/22 19:56 Assessment & Plan Assessment & Plan (1) Schizoaffective disorder, bipolar type: Status: Acute Code(s): F25.0 - Schizoaffective disorder, bipolar type (2) Nonspecific ST-T wave electrocardiographic changes: Status: Acute Code(s): R94.31 - Abnormal electrocardiogram [ECG] [EKG] (3) Cocaine use disorder: Status: Acute Code(s): F14.10 - Cocaine abuse, uncomplicated (4) Opioid use disorder: Status: Acute Code(s): F11.90 - Opioid use, unspecified, uncomplicated Plan 03/09: Patient presents guarded during 1:1. He reports feeling okay today; states he is sleeping well. Isolative. Pt reports he doesn't go to groups because I don't learn anything . Denies SI/HI/VH/AH. Continue current tx plan. 03/10: Patient presents guarded and brief today. He reports feeling good . Pt stated, I don't need anything Denies SI/HI/VH/AH. 03/11: periods of cogency and periods of apparent thought disorganization. denying Sx but appears to still be RIS and distracted. continue current mgmt for now. 03/12 continue same treatment. 03/13 continue same treatment. 03/14: continue current mgmt. plan to streamline medications regimen prior to discharge. T/C prolixin MENDES. 03/15: Continue current treatment plan. 03/16: streamlining meds today. decrease thorazine PRN availability. start prolixin decanoate tomorrow morning, will decrease PO prolixin by about half once the injection is given. continue other medications for now. 03/17: received prolixin DEC 25 mg today. decrease PO prolixin from 7.5 TID to 5 BID, otherwise continue current mgmt. 03/18: Continue current treatment plan. 03/19: continue current mgmt. noted to have hit himself in the thigh twice apparently in frustration, occasionally mumble to himself, and have a minimal outburst at [facility] last evening. likely related to transition from PO prolixin to IM decanoate. 03/20: no change in presentation. continue current mgmt. 03/21: stable. continue current mgmt. 03/22: stable. continue current mgmt. next prolixin DEC dose 03/31, DC PO prolixin at that time. 03/23: Continue current tx plan. 03/24: Patient reports feeling more energetic today ; stated he does not need anything . Presents calm, pleasant. denies SI/HI/VH/AH. Continue current tx plan. 03/25: Continue current tx plan. 03/26: Continue current management and treatment plan. 03/28: continue current mgmt. prolixin DEC 03/31, then DC PO prolixin. planning for discharge late next week. 03/29: change thorazine 100/100/200 to 100/300 for ease of administration post- discharge. prolixin DEC 25 on , DC PO prolixin . otherwise continue current mgmt. 03/30: Continue current tx plan. 03/31: Continue current treatment plan 04/01 continue tx. 04/02 continue tx. 04/03 continue tx. 04/04: increase availability of thorazine to 100 Q4H PRN agitation. some decompensation since second prolixin dec shot and discontinuation of PO fluphenazine. continue current mgmt, wait for MENDES to increase its effect. 04/05: continues with exacerbated psychotic Sx since DC of PO prolixin and initiation of MENDES. continue current mgmt. 04/06: perhaps less overtly psychotic than past couple of days. continue current mgmt. 04/07: remains decompensated from 1-2 weeks prior. continue current mgmt. was informed we will likely need another week of hospitalization. 04/08: no change in presentation or mgmt. 04/10: no changes- got prolixin dec 03/17 and 03/31, next due 04/14 04/11: continue current mgmt. plan to increase dose of prolixin dec. 04/12: no change in presentation. continue current mgmt. increase prolixin DEC dosing from 25 Q2wks to 37.5 Q2wks as of 04/14. 04/13: no change in presentation. continue current mgmt. 04/14: received prolixin DEC 37.5 mg today. no change in presentation. 04/15: stable, symptomatic with regard to previous presentation on PO prolixin. continue current mgmt. 04/16 keep same treatment 04/17 keep same treatment 04/18: no change in presentation from last week. able to engage better with staff, yet struggling with AH, sometimes yelling out. 04/19: stable presentation. Reason for continued inpatient stay Substantial Risk for: inability to function and rapid decompensation Time Spent With Patient Time: Total time managing care of this patient today ____ minutes.
[2023-04-19 19:45] VITALS: BP 132/69; PULSE 80; RESP 14; TEMP 36.9; O2SAT 99
[2023-04-19] MEDS: chlorproMAZINE HCl 100 MG TABLET 400 MG PO (20:06)
[2023-04-19] MEDS: carBAMazepine ER 200 MG TAB.ER.12H 600 MG PO (20:07)
[2023-04-19] MEDS: Lithium Carbonate ER 450 MG TABLET.ER 900 MG PO (20:08)
[2023-04-20 07:50] VITALS: BP 125/74; PULSE 92; RESP 18; TEMP 36.4; O2SAT 98
[2023-04-20] MEDS: Benztropine Mesylate 1 MG TABLET PO ×2 (08:22→20:43)
[2023-04-20] MEDS: carBAMazepine 200 MG TABLET 400 MG PO (08:22)
[2023-04-20] MEDS: Lithium Carbonate ER 450 MG TABLET.ER PO (08:23)
[2023-04-20] MEDS: Lithium Carbonate ER 300 MG TABLET.ER PO (08:23)
--- NOTE | 2023-04-20 14:08 | HO.PSYCHPN ---
Subjective Subjective Date of Service: 04/20/23 Reason For Visit: Psychosis Interim History: no change in presentation. per staff, +RIS. eating and taking medications. pacing. appeared to have slept well. Mental Status Exam Mental Status Exam Narrative: Pt is alert and oriented; behavior is calm; dressed in casual attire; mood is described as good; eye contact appropriate; Speech is normal rate, volume and prosody and not pressured; thought process is linear and logical, some HAMLET or poor attention; otherwise pertinent to relevant topics and without any expressed delusional content, paranoid ideations or grandiosity; no SI/HI/AVH expressed. Diagnostics Vital Signs (24Hr): Vital Signs - 24 hr 04/19/23 19:45 04/20/23 07:50 Temperature 98.4 F 97.6 F Pulse Rate 80 92 Respiratory Rate 14 18 Blood Pressure 132/69 125/74 Pulse Oximetry 99 98 Oxygen Delivery Method Room Air Room Air BMI result Body Mass Index 30.1 Labs 03/03/23 20:10 03/25/23 12:35 Medications Medications Current Medications Acetaminophen (Acetaminophen 325 Mg Tablet) 650 mg PO Q6H PRN PRN Reason: mild pain Last Admin: 04/13/23 08:22 Dose: 650 mg Benztropine Mesylate (Benztropine Mesylate 1 Mg Tablet) 1 mg PO BID [facility] Last Admin: 04/20/23 08:22 Dose: 1 mg Carbamazepine (Carbamazepine 200 Mg Tablet) 400 mg PO DAILY [facility] Last Admin: 04/20/23 08:22 Dose: 400 mg Carbamazepine (Carbamazepine Er 200 Mg Tab.Er.12h) 600 mg PO BEDTIME [facility] Last Admin: 04/19/23 20:07 Dose: 600 mg Chlorpromazine HCl (Chlorpromazine Hcl 100 Mg Tablet) 400 mg PO BEDTIME [facility] Last Admin: 04/19/23 20:06 Dose: 400 mg Chlorpromazine HCl (Chlorpromazine Hcl 100 Mg Tablet) 100 mg PO Q4H PRN PRN Reason: agitation/anxiety Last Admin: 04/12/23 15:51 Dose: 100 mg Diphenhydramine HCl (Diphenhydramine Hcl 25 Mg Capsule) 50 mg PO Q6H PRN PRN Reason: Allergic Symptoms Last Admin: 04/16/23 02:31 Dose: 50 mg Fluphenazine HCl (Fluphenazine Hcl 2.5 Mg/Ml 10 Ml Vial) 5 mg IM TID PRN PRN Reason: refusal of PO fluphenazine [place] Carbonate ([place] Carbonate Er 450 Mg Tablet.Er) 900 mg PO BEDTIME [facility] Last Admin: 04/19/23 20:08 Dose: 900 mg [place] Carbonate ([place] Carbonate Er 300 Mg Tablet.Er) 300 mg PO DAILY [facility] Last Admin: 04/20/23 08:23 Dose: 300 mg [place] Carbonate ([place] Carbonate Er 450 Mg Tablet.Er) 450 mg PO DAILY [facility] Last Admin: 04/20/23 08:23 Dose: 450 mg Multi-Ingred Cream/Lotion/Oil/Oint (Mineral Oil/Petrolatum,White 106 Gm Tube) 1 appl TOPICAL BID [facility]; Protocol Last Admin: 04/20/23 08:57 Dose: Not Given Polyethylene Glycol (Polyethylene Glycol 3350 17 Gm Powd.Pack) 17 gm PO DAILY PRN PRN Reason: constipation Last Admin: 04/03/23 11:15 Dose: 17 gm Allergies Allergies Allergy/AdvReac Type Severity Reaction Status Date / Time morphine [MORPHINE] AdvReac Unknown NAUSEA Verified 12/10/22 19:56 Assessment & Plan Assessment & Plan (1) Schizoaffective disorder, bipolar type: Status: Acute Code(s): F25.0 - Schizoaffective disorder, bipolar type (2) Nonspecific ST-T wave electrocardiographic changes: Status: Acute Code(s): R94.31 - Abnormal electrocardiogram [ECG] [EKG] (3) Cocaine use disorder: Status: Acute Code(s): F14.10 - Cocaine abuse, uncomplicated (4) Opioid use disorder: Status: Acute Code(s): F11.90 - Opioid use, unspecified, uncomplicated Plan 03/09: Patient presents guarded during 1:1. He reports feeling okay today; states he is sleeping well. Isolative. Pt reports he doesn't go to groups because I don't learn anything . Denies SI/HI/VH/AH. Continue current tx plan. 03/10: Patient presents guarded and brief today. He reports feeling good . Pt stated, I don't need anything Denies SI/HI/VH/AH. 03/11: periods of cogency and periods of apparent thought disorganization. denying Sx but appears to still be RIS and distracted. continue current mgmt for now. 03/12 continue same treatment. 03/13 continue same treatment. 03/14: continue current mgmt. plan to streamline medications regimen prior to discharge. T/C prolixin MENDES. 03/15: Continue current treatment plan. 03/16: streamlining meds today. decrease thorazine PRN availability. start prolixin decanoate tomorrow morning, will decrease PO prolixin by about half once the injection is given. continue other medications for now. 03/17: received prolixin DEC 25 mg today. decrease PO prolixin from 7.5 TID to 5 BID, otherwise continue current mgmt. 03/18: Continue current treatment plan. 03/19: continue current mgmt. noted to have hit himself in the thigh twice apparently in frustration, occasionally mumble to himself, and have a minimal outburst at last evening. likely related to transition from PO prolixin to IM decanoate. 03/20: no change in presentation. continue current mgmt. 03/21: stable. continue current mgmt. 03/22: stable. continue current mgmt. next prolixin DEC dose 03/31, DC PO prolixin at that time. 03/23: Continue current tx plan. 03/24: Patient reports feeling more energetic today ; stated he does not need anything . Presents calm, pleasant. denies SI/HI/VH/AH. Continue current tx plan. 03/25: Continue current tx plan. 03/26: Continue current management and treatment plan. 03/28: continue current mgmt. prolixin DEC 03/31, then DC PO prolixin. planning for discharge late next week. 03/29: change thorazine 100/100/200 to 100/300 for ease of administration post-discharge. prolixin DEC 25 on , DC PO prolixin . otherwise continue current mgmt. 03/30: Continue current tx plan. 03/31: Continue current treatment plan 04/01 continue tx. 04/02 continue tx. 04/03 continue tx. 04/04: increase availability of thorazine to 100 Q4H PRN agitation. some decompensation since second prolixin dec shot and discontinuation of PO fluphenazine. continue current mgmt, wait for MENDES to increase its effect. 04/05: continues with exacerbated psychotic Sx since DC of PO prolixin and initiation of MENDES. continue current mgmt. 04/06: perhaps less overtly psychotic than past couple of days. continue current mgmt. 04/07: remains decompensated from 1-2 weeks prior. continue current mgmt. was informed we will likely need another week of hospitalization. 04/08: no change in presentation or mgmt. 04/10: no changes- got prolixin dec 03/17 and 03/31, next due 04/14 04/11: continue current mgmt. plan to increase dose of prolixin dec. 04/12: no change in presentation. continue current mgmt. increase prolixin DEC dosing from 25 Q2wks to 37.5 Q2wks as of 04/14. 04/13: no change in presentation. continue current mgmt. 04/14: received prolixin DEC 37.5 mg today. no change in presentation. 04/15: stable, symptomatic with regard to previous presentation on PO prolixin. continue current mgmt. 04/16 keep same treatment 04/17 keep same treatment 04/18: no change in presentation from last week. able to engage better with staff, yet struggling with AH, sometimes yelling out. 04/19: stable presentation. 04/20: continue current mgmt. stable. Reason for continued inpatient stay Substantial Risk for: harm to self, harm to others, inability to function and rapid decompensation Time Spent With Patient Time: Total time managing care of this patient today ____ minutes.
[2023-04-20 20:11] VITALS: BP 134/79; PULSE 97; RESP 16; TEMP 37.2; O2SAT 97
[2023-04-20] MEDS: chlorproMAZINE HCl 100 MG TABLET 400 MG PO (20:40)
[2023-04-20] MEDS: carBAMazepine ER 200 MG TAB.ER.12H 600 MG PO (20:42)
[2023-04-20] MEDS: Lithium Carbonate ER 450 MG TABLET.ER 900 MG PO (20:42)
[2023-04-21 07:35] VITALS: BP 142/63; PULSE 83; TEMP 36.1; O2SAT 99
[2023-04-21] MEDS: Lithium Carbonate ER 450 MG TABLET.ER PO (10:03)
[2023-04-21] MEDS: Lithium Carbonate ER 300 MG TABLET.ER PO (10:03)
[2023-04-21] MEDS: carBAMazepine 200 MG TABLET 400 MG PO (10:04)
[2023-04-21] MEDS: Benztropine Mesylate 1 MG TABLET PO ×2 (10:04→23:09)
--- NOTE | 2023-04-21 14:22 | HO.PSYCHPN ---
Subjective Subjective Date of Service: 04/21/23 Reason For Visit: Psychosis Interim History: calm, cooperative. no complaints or requests. per staff, no dep/anx. +meals and meds. +RIS. pacing green. up x2 overnight for snacks and laundry. slept 7 hours. Mental Status Exam Mental Status Exam Narrative: Pt is alert and oriented; behavior is calm; dressed in casual attire; mood is described as good; eye contact appropriate; Speech is normal rate, volume and prosody and not pressured; thought process is linear and logical, some HAMLET or poor attention; otherwise pertinent to relevant topics and without any expressed delusional content, paranoid ideations or grandiosity; no SI/HI/AVH expressed. Diagnostics Vital Signs (24Hr): Vital Signs - 24 hr 04/20/23 20:11 04/21/23 07:35 Temperature 99 F 97.0 F Pulse Rate 97 83 Respiratory Rate 16 Blood Pressure 134/79 142/63 H Pulse Oximetry 97 99 Oxygen Delivery Method Room Air Room Air BMI result Body Mass Index 30.1 Labs 03/03/23 20:10 03/25/23 12:35 Medications Medications Current Medications Acetaminophen (Acetaminophen 325 Mg Tablet) 650 mg PO Q6H PRN PRN Reason: mild pain Last Admin: 04/13/23 08:22 Dose: 650 mg Benztropine Mesylate (Benztropine Mesylate 1 Mg Tablet) 1 mg PO BID [facility] Last Admin: 04/21/23 10:04 Dose: 1 mg Carbamazepine (Carbamazepine 200 Mg Tablet) 400 mg PO DAILY [facility] Last Admin: 04/21/23 10:04 Dose: 400 mg Carbamazepine (Carbamazepine Er 200 Mg Tab.Er.12h) 600 mg PO BEDTIME [facility] Last Admin: 04/20/23 20:42 Dose: 600 mg Chlorpromazine HCl (Chlorpromazine Hcl 100 Mg Tablet) 400 mg PO BEDTIME [facility] Last Admin: 04/20/23 20:40 Dose: 400 mg Chlorpromazine HCl (Chlorpromazine Hcl 100 Mg Tablet) 100 mg PO Q4H PRN PRN Reason: agitation/anxiety Last Admin: 04/12/23 15:51 Dose: 100 mg Diphenhydramine HCl (Diphenhydramine Hcl 25 Mg Capsule) 50 mg PO Q6H PRN PRN Reason: Allergic Symptoms Last Admin: 04/16/23 02:31 Dose: 50 mg Fluphenazine HCl (Fluphenazine Hcl 2.5 Mg/Ml 10 Ml Vial) 5 mg IM TID PRN PRN Reason: refusal of PO fluphenazine [employer] Carbonate ([employer] Carbonate Er 450 Mg Tablet.Er) 900 mg PO BEDTIME [facility] Last Admin: 04/20/23 20:42 Dose: 900 mg [employer] Carbonate ([employer] Carbonate Er 300 Mg Tablet.Er) 300 mg PO DAILY [facility] Last Admin: 04/21/23 10:03 Dose: 300 mg [employer] Carbonate ([employer] Carbonate Er 450 Mg Tablet.Er) 450 mg PO DAILY [facility] Last Admin: 04/21/23 10:03 Dose: 450 mg Multi-Ingred Cream/Lotion/Oil/Oint (Mineral Oil/Petrolatum,White 106 Gm Tube) 1 appl TOPICAL BID [facility]; Protocol Last Admin: 04/21/23 10:04 Dose: Not Given Polyethylene Glycol (Polyethylene Glycol 3350 17 Gm Powd.Pack) 17 gm PO DAILY PRN PRN Reason: constipation Last Admin: 04/03/23 11:15 Dose: 17 gm Allergies Allergies Allergy/AdvReac Type Severity Reaction Status Date / Time morphine [MORPHINE] AdvReac Unknown NAUSEA Verified 12/10/22 19:56 Assessment & Plan Assessment & Plan (1) Schizoaffective disorder, bipolar type: Status: Acute Code(s): F25.0 - Schizoaffective disorder, bipolar type (2) Nonspecific ST-T wave electrocardiographic changes: Status: Acute Code(s): R94.31 - Abnormal electrocardiogram [ECG] [EKG] (3) Cocaine use disorder: Status: Acute Code(s): F14.10 - Cocaine abuse, uncomplicated (4) Opioid use disorder: Status: Acute Code(s): F11.90 - Opioid use, unspecified, uncomplicated Plan 03/09: Patient presents guarded during 1:1. He reports feeling okay today; states he is sleeping well. Isolative. Pt reports he doesn't go to groups because I don't learn anything . Denies SI/HI/VH/AH. Continue current tx plan. 03/10: Patient presents guarded and brief today. He reports feeling good . Pt stated, I don't need anything Denies SI/HI/VH/AH. 03/11: periods of cogency and periods of apparent thought disorganization. denying Sx but appears to still be RIS and distracted. continue current mgmt for now. 03/12 continue same treatment. 03/13 continue same treatment. 03/14: continue current mgmt. plan to streamline medications regimen prior to discharge. T/C prolixin MENDES. 03/15: Continue current treatment plan. 03/16: streamlining meds today. decrease thorazine PRN availability. start prolixin decanoate tomorrow morning, will decrease PO prolixin by about half once the injection is given. continue other medications for now. 03/17: received prolixin DEC 25 mg today. decrease PO prolixin from 7.5 TID to 5 BID, otherwise continue current mgmt. 03/18: Continue current treatment plan. 03/19: continue current mgmt. noted to have hit himself in the thigh twice apparently in frustration, occasionally mumble to himself, and have a minimal outburst at AH last evening. likely related to transition from PO prolixin to IM decanoate. 03/20: no change in presentation. continue current mgmt. 03/21: stable. continue current mgmt. 03/22: stable. continue current mgmt. next prolixin DEC dose 03/31, DC PO prolixin at that time. 03/23: Continue current tx plan. 03/24: Patient reports feeling more energetic today ; stated he does not need anything . Presents calm, pleasant. denies SI/HI/VH/AH. Continue current tx plan. 03/25: Continue current tx plan. 03/26: Continue current management and treatment plan. 03/28: continue current mgmt. prolixin DEC 03/31, then DC PO prolixin. planning for discharge late next week. 03/29: change thorazine 100/100/200 to 100/300 for ease of administration post-discharge. prolixin DEC 25 on , DC PO prolixin . otherwise continue current mgmt. 03/30: Continue current tx plan. 03/31: Continue current treatment plan 04/01 continue tx. 04/02 continue tx. 04/03 continue tx. 04/04: increase availability of thorazine to 100 Q4H PRN agitation. some decompensation since second prolixin dec shot and discontinuation of PO fluphenazine. continue current mgmt, wait for MENDES to increase its effect. 04/05: continues with exacerbated psychotic Sx since DC of PO prolixin and initiation of MENDES. continue current mgmt. 04/06: perhaps less overtly psychotic than past couple of days. continue current mgmt. 04/07: remains decompensated from 1-2 weeks prior. continue current mgmt. was informed we will likely need another week of hospitalization. 04/08: no change in presentation or mgmt. 04/10: no changes- got prolixin dec 03/17 and 03/31, next due 04/14 04/11: continue current mgmt. plan to increase dose of prolixin dec. 04/12: no change in presentation. continue current mgmt. increase prolixin DEC dosing from 25 Q2wks to 37.5 Q2wks as of 04/14. 04/13: no change in presentation. continue current mgmt. 04/14: received prolixin DEC 37.5 mg today. no change in presentation. 04/15: stable, symptomatic with regard to previous presentation on PO prolixin. continue current mgmt. 04/16 keep same treatment 04/17 keep same treatment 04/18: no change in presentation from last week. able to engage better with staff, yet struggling with AH, sometimes yelling out. 04/19: stable presentation. 04/20: continue current mgmt. stable. 04/21: no RIS in the green observed the past two days by this designer/writer, which is an improvement. continue current mgmt. Reason for continued inpatient stay Substantial Risk for: harm to self, harm to others, inability to function and rapid decompensation Time Spent With Patient Time: Total time managing care of this patient today ____ minutes.
[2023-04-21 20:15] VITALS: BP 142/80; PULSE 74; RESP 18; TEMP 36.8; O2SAT 99
[2023-04-21] MEDS: chlorproMAZINE HCl 100 MG TABLET 400 MG PO (23:09)
[2023-04-21] MEDS: Lithium Carbonate ER 450 MG TABLET.ER 900 MG PO (23:09)
[2023-04-21] MEDS: carBAMazepine ER 200 MG TAB.ER.12H 600 MG PO (23:10)
[2023-04-22 07:50] VITALS: BP 126/72; PULSE 79; RESP 18; TEMP 36.4; O2SAT 99
[2023-04-22] MEDS: carBAMazepine 200 MG TABLET 400 MG PO (11:43)
[2023-04-22] MEDS: Lithium Carbonate ER 300 MG TABLET.ER PO (11:43)
[2023-04-22] MEDS: Lithium Carbonate ER 450 MG TABLET.ER PO (11:43)
[2023-04-22] MEDS: Benztropine Mesylate 1 MG TABLET PO ×2 (11:43→21:48)
--- NOTE | 2023-04-22 13:47 | HO.PSYCHPN ---
Subjective Subjective Date of Service: 04/22/23 Reason For Visit: Psychosis Interim History: no change in presentation. continues mildly improved from earlier in the week. per staff, some RIS under covers last NOC. no issues otherwise. Mental Status Exam Mental Status Exam Narrative: Pt is alert and oriented; behavior is calm; dressed in casual attire; mood is described as good; eye contact appropriate; Speech is normal rate, volume and prosody and not pressured; thought process is linear and logical, some HAMLET or poor attention; otherwise pertinent to relevant topics and without any expressed delusional content, paranoid ideations or grandiosity; no SI/HI/AVH expressed. Diagnostics Vital Signs (24Hr): Vital Signs - 24 hr 04/21/23 20:15 04/22/23 07:50 Temperature 98.2 F 97.5 F Pulse Rate 74 79 Respiratory Rate 18 18 Blood Pressure 142/80 H 126/72 Pulse Oximetry 99 99 Oxygen Delivery Method Room Air Room Air BMI result Body Mass Index 30.0 Labs 03/03/23 20:10 03/25/23 12:35 Medications Medications Current Medications Acetaminophen (Acetaminophen 325 Mg Tablet) 650 mg PO Q6H PRN PRN Reason: mild pain Last Admin: 04/13/23 08:22 Dose: 650 mg Benztropine Mesylate (Benztropine Mesylate 1 Mg Tablet) 1 mg PO BID [facility] Last Admin: 04/22/23 11:43 Dose: 1 mg Carbamazepine (Carbamazepine 200 Mg Tablet) 400 mg PO DAILY [facility] Last Admin: 04/22/23 11:43 Dose: 400 mg Carbamazepine (Carbamazepine Er 200 Mg Tab.Er.12h) 600 mg PO BEDTIME [facility] Last Admin: 04/21/23 23:10 Dose: 600 mg Chlorpromazine HCl (Chlorpromazine Hcl 100 Mg Tablet) 400 mg PO BEDTIME [facility] Last Admin: 04/21/23 23:09 Dose: 400 mg Chlorpromazine HCl (Chlorpromazine Hcl 100 Mg Tablet) 100 mg PO Q4H PRN PRN Reason: agitation/anxiety Last Admin: 04/12/23 15:51 Dose: 100 mg Diphenhydramine HCl (Diphenhydramine Hcl 25 Mg Capsule) 50 mg PO Q6H PRN PRN Reason: Allergic Symptoms Last Admin: 04/16/23 02:31 Dose: 50 mg Fluphenazine HCl (Fluphenazine Hcl 2.5 Mg/Ml 10 Ml Vial) 5 mg IM TID PRN PRN Reason: refusal of PO fluphenazine [place] Carbonate ([place] Carbonate Er 450 Mg Tablet.Er) 900 mg PO BEDTIME [facility] Last Admin: 04/21/23 23:09 Dose: 900 mg [place] Carbonate ([place] Carbonate Er 300 Mg Tablet.Er) 300 mg PO DAILY [facility] Last Admin: 04/22/23 11:43 Dose: 300 mg [place] Carbonate ([place] Carbonate Er 450 Mg Tablet.Er) 450 mg PO DAILY [facility] Last Admin: 04/22/23 11:43 Dose: 450 mg Multi-Ingred Cream/Lotion/Oil/Oint (Mineral Oil/Petrolatum,White 106 Gm Tube) 1 appl TOPICAL BID [facility]; Protocol Last Admin: 04/22/23 11:43 Dose: Not Given Polyethylene Glycol (Polyethylene Glycol 3350 17 Gm Powd.Pack) 17 gm PO DAILY PRN PRN Reason: constipation Last Admin: 04/03/23 11:15 Dose: 17 gm Allergies Allergies Allergy/AdvReac Type Severity Reaction Status Date / Time morphine [MORPHINE] AdvReac Unknown NAUSEA Verified 12/10/22 19:56 Assessment & Plan Assessment & Plan (1) Schizoaffective disorder, bipolar type: Status: Acute Code(s): F25.0 - Schizoaffective disorder, bipolar type (2) Nonspecific ST-T wave electrocardiographic changes: Status: Acute Code(s): R94.31 - Abnormal electrocardiogram [ECG] [EKG] (3) Cocaine use disorder: Status: Acute Code(s): F14.10 - Cocaine abuse, uncomplicated (4) Opioid use disorder: Status: Acute Code(s): F11.90 - Opioid use, unspecified, uncomplicated Plan 03/09: Patient presents guarded during 1:1. He reports feeling okay today; states he is sleeping well. Isolative. Pt reports he doesn't go to groups because I don't learn anything . Denies SI/HI/VH/AH. Continue current tx plan. 03/10: Patient presents guarded and brief today. He reports feeling good . Pt stated, I don't need anything Denies SI/HI/VH/AH. 03/11: periods of cogency and periods of apparent thought disorganization. denying Sx but appears to still be RIS and distracted. continue current mgmt for now. 03/12 continue same treatment. 03/13 continue same treatment. 03/14: continue current mgmt. plan to streamline medications regimen prior to discharge. T/C prolixin MENDES. 03/15: Continue current treatment plan. 03/16: streamlining meds today. decrease thorazine PRN availability. start prolixin decanoate tomorrow morning, will decrease PO prolixin by about half once the injection is given. continue other medications for now. 03/17: received prolixin DEC 25 mg today. decrease PO prolixin from 7.5 TID to 5 BID, otherwise continue current mgmt. 03/18: Continue current treatment plan. 03/19: continue current mgmt. noted to have hit himself in the thigh twice apparently in frustration, occasionally mumble to himself, and have a minimal outburst at [facility] last evening. likely related to transition from PO prolixin to IM decanoate. 03/20: no change in presentation. continue current mgmt. 03/21: stable. continue current mgmt. 03/22: stable. continue current mgmt. next prolixin DEC dose 03/31, DC PO prolixin at that time. 03/23: Continue current tx plan. 03/24: Patient reports feeling more energetic today ; stated he does not need anything . Presents calm, pleasant. denies SI/HI/VH/AH. Continue current tx plan. 03/25: Continue current tx plan. 03/26: Continue current management and treatment plan. 03/28: continue current mgmt. prolixin DEC 03/31, then DC PO prolixin. planning for discharge late next week. 03/29: change thorazine 100/100/200 to 100/300 for ease of administration post-discharge. prolixin DEC 25 on , DC PO prolixin . otherwise continue current mgmt. 03/30: Continue current tx plan. 03/31: Continue current treatment plan 04/01 continue tx. 04/02 continue tx. 04/03 continue tx. 04/04: increase availability of thorazine to 100 Q4H PRN agitation. some decompensation since second prolixin dec shot and discontinuation of PO fluphenazine. continue current mgmt, wait for MENDES to increase its effect. 04/05: continues with exacerbated psychotic Sx since DC of PO prolixin and initiation of MENDES. continue current mgmt. 04/06: perhaps less overtly psychotic than past couple of days. continue current mgmt. 04/07: remains decompensated from 1-2 weeks prior. continue current mgmt. was informed we will likely need another week of hospitalization. 04/08: no change in presentation or mgmt. 04/10: no changes- got prolixin dec 03/17 and 03/31, next due 04/14 04/11: continue current mgmt. plan to increase dose of prolixin dec. 04/12: no change in presentation. continue current mgmt. increase prolixin DEC dosing from 25 Q2wks to 37.5 Q2wks as of 04/14. 04/13: no change in presentation. continue current mgmt. 04/14: received prolixin DEC 37.5 mg today. no change in presentation. 04/15: stable, symptomatic with regard to previous presentation on PO prolixin. continue current mgmt. 04/16 keep same treatment 04/17 keep same treatment 04/18: no change in presentation from last week. able to engage better with staff, yet struggling with AH, sometimes yelling out. 04/19: stable presentation. 04/20: continue current mgmt. stable. 04/21: no RIS in the green observed the past two days by this service writer, which is an improvement. continue current mgmt. 04/22: no RIS observed past 3 days now, per staff some RIS last night. no outbursts. continue current mgmt. Reason for continued inpatient stay Substantial Risk for: inability to function and rapid decompensation Time Spent With Patient Time: Total time managing care of this patient today ____ minutes.
[2023-04-22 19:35] VITALS: BP 126/70; PULSE 80; RESP 16; TEMP 36.2; O2SAT 97
[2023-04-22] MEDS: Lithium Carbonate ER 450 MG TABLET.ER 900 MG PO (21:47)
[2023-04-22] MEDS: chlorproMAZINE HCl 100 MG TABLET 400 MG PO (21:47)
[2023-04-22] MEDS: carBAMazepine ER 200 MG TAB.ER.12H 600 MG PO (21:48)
[2023-04-23 06:00] VITALS: BP 108/63; PULSE 67; TEMP 36.7
[2023-04-23] MEDS: Lithium Carbonate ER 450 MG TABLET.ER PO (09:12)
[2023-04-23] MEDS: carBAMazepine 200 MG TABLET 400 MG PO (09:12)
[2023-04-23] MEDS: Benztropine Mesylate 1 MG TABLET PO ×2 (09:12→20:25)
[2023-04-23] MEDS: Lithium Carbonate ER 300 MG TABLET.ER PO (09:12)
--- NOTE | 2023-04-23 17:19 | HO.PSYCHPN ---
Subjective Subjective Date of Service: 04/23/23 Reason For Visit: Psychosis Interim History: Patient seen and discussed with team. There is no change in presentation. Intermittently heard responding loudly to internal stimuli. Patient himself denies all symptoms. Review of Systems Review of Systems Nothing acute Yes all other systems are reviewed and are negative and Unobtainable due to mental status Constitutional: Reports as per HPI Eyes: Reports as per HPI Reports as per HPI Cardiovascular: Reports as per HPI Respiratory: Reports as per HPI Gastrointestinal: Reports as per HPI Genitourinary: Reports as per HPI Musculoskeletal: Reports as per HPI Skin/Breast: Reports as per HPI Reports as per HPI Psychiatric: Reports as per HPI Endocrine: Reports as per HPI Hematologic/Lymphatic: Reports as per HPI Allergic/Immunologic: Reports as per HPI Mental Status Exam Mental Status Exam Narrative: Pt is alert and oriented; behavior is calm; dressed in casual attire; mood is described as good; eye contact appropriate; Speech is normal rate, volume and prosody and not pressured; thought process is linear and logical, some HAMLET or poor attention; otherwise pertinent to relevant topics and without any expressed delusional content, paranoid ideations or grandiosity; no SI/HI/AVH expressed. Patient Appearance: Well Grooomed Patient Orientation: Person and Situation Level of Consciousness: Awake and Appropriate Patient Behavior: Guarded and Passive Behavior Comments: can be irritable in pm Mood Description: Withdrawn Affect Description: Constricted Patient Cognition Impaired: Yes Ability to Follow Directions: Good Speech Pattern: Clear Memory Description: Remote Impaired Diagnostics Vital Signs (24Hr): Vital Signs - 24 hr 04/22/23 19:35 04/23/23 06:00 Temperature 97.1 F 98.1 F Pulse Rate 80 67 Respiratory Rate 16 Blood Pressure 126/70 108/63 Pulse Oximetry 97 Oxygen Delivery Method Room Air BMI result Body Mass Index 30.0 Labs 03/03/23 20:10 03/25/23 12:35 Medications Medications Current Medications Acetaminophen (Acetaminophen 325 Mg Tablet) 650 mg PO Q6H PRN PRN Reason: mild pain Last Admin: 04/13/23 08:22 Dose: 650 mg Benztropine Mesylate (Benztropine Mesylate 1 Mg Tablet) 1 mg PO BID [facility] Last Admin: 04/23/23 09:12 Dose: 1 mg Carbamazepine (Carbamazepine 200 Mg Tablet) 400 mg PO DAILY [facility] Last Admin: 04/23/23 09:12 Dose: 400 mg Carbamazepine (Carbamazepine Er 200 Mg Tab.Er.12h) 600 mg PO BEDTIME [facility] Last Admin: 04/22/23 21:48 Dose: 600 mg Chlorpromazine HCl (Chlorpromazine Hcl 100 Mg Tablet) 400 mg PO BEDTIME [facility] Last Admin: 04/22/23 21:47 Dose: 400 mg Chlorpromazine HCl (Chlorpromazine Hcl 100 Mg Tablet) 100 mg PO Q4H PRN PRN Reason: agitation/anxiety Last Admin: 04/12/23 15:51 Dose: 100 mg Diphenhydramine HCl (Diphenhydramine Hcl 25 Mg Capsule) 50 mg PO Q6H PRN PRN Reason: Allergic Symptoms Last Admin: 04/16/23 02:31 Dose: 50 mg Fluphenazine HCl (Fluphenazine Hcl 2.5 Mg/Ml 10 Ml Vial) 5 mg IM TID PRN PRN Reason: refusal of PO fluphenazine [place] Carbonate ([place] Carbonate Er 450 Mg Tablet.Er) 900 mg PO BEDTIME [facility] Last Admin: 04/22/23 21:47 Dose: 900 mg [place] Carbonate ([place] Carbonate Er 300 Mg Tablet.Er) 300 mg PO DAILY [facility] Last Admin: 04/23/23 09:12 Dose: 300 mg [place] Carbonate ([place] Carbonate Er 450 Mg Tablet.Er) 450 mg PO DAILY [facility] Last Admin: 04/23/23 09:12 Dose: 450 mg Multi-Ingred Cream/Lotion/Oil/Oint (Mineral Oil/Petrolatum,White 106 Gm Tube) 1 appl TOPICAL BID [facility]ON[facility]; Protocol Last Admin: 04/23/23 12:49 Dose: Not Given Polyethylene Glycol (Polyethylene Glycol 3350 17 Gm Powd.Pack) 17 gm PO DAILY PRN PRN Reason: constipation Last Admin: 04/03/23 11:15 Dose: 17 gm Allergies Allergies Allergy/AdvReac Type Severity Reaction Status Date / Time morphine [MORPHINE] AdvReac Unknown NAUSEA Verified 12/10/22 19:56 Assessment & Plan Assessment & Plan (1) Schizoaffective disorder, bipolar type: Status: Acute Code(s): F25.0 - Schizoaffective disorder, bipolar type (2) Nonspecific ST-T wave electrocardiographic changes: Status: Acute Code(s): R94.31 - Abnormal electrocardiogram [ECG] [EKG] (3) Cocaine use disorder: Status: Acute Code(s): F14.10 - Cocaine abuse, uncomplicated (4) Opioid use disorder: Status: Acute Code(s): F11.90 - Opioid use, unspecified, uncomplicated Plan 03/09: Patient presents guarded during 1:1. He reports feeling okay today; states he is sleeping well. Isolative. Pt reports he doesn't go to groups because I don't learn anything . Denies SI/HI/VH/AH. Continue current tx plan. 03/10: Patient presents guarded and brief today. He reports feeling good . Pt stated, I don't need anything Denies SI/HI/VH/AH. 03/11: periods of cogency and periods of apparent thought disorganization. denying Sx but appears to still be RIS and distracted. continue current mgmt for now. 03/12 continue same treatment. 03/13 continue same treatment. 03/14: continue current mgmt. plan to streamline medications regimen prior to discharge. T/C prolixin MENDES. 03/15: Continue current treatment plan. 03/16: streamlining meds today. decrease thorazine PRN availability. start prolixin decanoate tomorrow morning, will decrease PO prolixin by about half once the injection is given. continue other medications for now. 03/17: received prolixin DEC 25 mg today. decrease PO prolixin from 7.5 TID to 5 BID, otherwise continue current mgmt. 03/18: Continue current treatment plan. 03/19: continue current mgmt. noted to have hit himself in the thigh twice apparently in frustration, occasionally mumble to himself, and have a minimal outburst at last evening. likely related to transition from PO prolixin to IM decanoate. 03/20: no change in presentation. continue current mgmt. 03/21: stable. continue current mgmt. 03/22: stable. continue current mgmt. next prolixin DEC dose 03/31, DC PO prolixin at that time. 03/23: Continue current tx plan. 03/24: Patient reports feeling more energetic today ; stated he does not need anything . Presents calm, pleasant. denies SI/HI/VH/AH. Continue current tx plan. 03/25: Continue current tx plan. 03/26: Continue current management and treatment plan. 03/28: continue current mgmt. prolixin DEC 03/31, then DC PO prolixin. planning for discharge late next week. 03/29: change thorazine 100/100/200 to 100/300 for ease of administration post-discharge. prolixin DEC 25 on , DC PO prolixin . otherwise continue current mgmt. 03/30: Continue current tx plan. 03/31: Continue current treatment plan 04/01 continue tx. 04/02 continue tx. 04/03 continue tx. 04/04: increase availability of thorazine to 100 Q4H PRN agitation. some decompensation since second prolixin dec shot and discontinuation of PO fluphenazine. continue current mgmt, wait for MENDES to increase its effect. 04/05: continues with exacerbated psychotic Sx since DC of PO prolixin and initiation of MENDES. continue current mgmt. 04/06: perhaps less overtly psychotic than past couple of days. continue current mgmt. 04/07: remains decompensated from 1-2 weeks prior. continue current mgmt. was informed we will likely need another week of hospitalization. 04/08: no change in presentation or mgmt. 04/10: no changes- got prolixin dec 03/17 and 03/31, next due 04/14 04/11: continue current mgmt. plan to increase dose of prolixin dec. 04/12: no change in presentation. continue current mgmt. increase prolixin DEC dosing from 25 Q2wks to 37.5 Q2wks as of 04/14. 04/13: no change in presentation. continue current mgmt. 04/14: received prolixin DEC 37.5 mg today. no change in presentation. 04/15: stable, symptomatic with regard to previous presentation on PO prolixin. continue current mgmt. 04/16 keep same treatment 04/17 keep same treatment 04/18: no change in presentation from last week. able to engage better with staff, yet struggling with AH, sometimes yelling out. 04/19: stable presentation. 04/20: continue current mgmt. stable. 04/21: no RIS in the green observed the past two days by this service writer advisor, which is an improvement. continue current mgmt. 04/22: no RIS observed past 3 days now, per staff some RIS last night. no outbursts. continue current mgmt. 04/23: Continue current management and treatment plan. Reason for continued inpatient stay Substantial Risk for: inability to function and rapid decompensation Time Spent With Patient Time: Total time managing care of this patient today ____ minutes.
[2023-04-23 20:00] VITALS: BP 124/73; PULSE 74; RESP 16; TEMP 36.7; O2SAT 99
[2023-04-23] MEDS: chlorproMAZINE HCl 100 MG TABLET 400 MG PO (20:24)
[2023-04-23] MEDS: carBAMazepine ER 200 MG TAB.ER.12H 600 MG PO (20:24)
[2023-04-23] MEDS: Lithium Carbonate ER 450 MG TABLET.ER 900 MG PO (20:25)
[2023-04-24 06:00] VITALS: BP 115/70; PULSE 75; RESP 18; TEMP 36.8; O2SAT 96
[2023-04-24] MEDS: carBAMazepine 200 MG TABLET 400 MG PO (07:51)
[2023-04-24] MEDS: Lithium Carbonate ER 300 MG TABLET.ER PO (07:51)
[2023-04-24] MEDS: Benztropine Mesylate 1 MG TABLET PO ×2 (07:52→22:23)
[2023-04-24] MEDS: Lithium Carbonate ER 450 MG TABLET.ER PO (07:52)
[2023-04-24 08:00] VITALS: BP 115/70; PULSE 75; RESP 18; TEMP 36.8; O2SAT 96
--- NOTE | 2023-04-24 19:35 | P.PNPSI_ITS ---
Subjective Subjective Date of Service: 04/24/23 Reason For Visit: Psychosis Interim History: Patient seen and discussed with team. There is no change in presentation. Intermittently heard responding loudly to internal stimuli. Patient himself denies all symptoms. Review of Systems Review of Systems Nothing acute Yes all other systems are reviewed and are negative and Unobtainable due to mental status Constitutional: Reports as per HPI Eyes: Reports as per HPI Reports as per HPI Cardiovascular: Reports as per HPI Respiratory: Reports as per HPI Gastrointestinal: Reports as per HPI Genitourinary: Reports as per HPI Musculoskeletal: Reports as per HPI Skin/Breast: Reports as per HPI Reports as per HPI Psychiatric: Reports as per HPI Endocrine: Reports as per HPI Hematologic/Lymphatic: Reports as per HPI Allergic/Immunologic: Reports as per HPI Mental Status Exam Mental Status Exam Narrative: Pt is alert and oriented; behavior is calm; dressed in casual attire; mood is described as good; eye contact appropriate; Speech is normal rate, volume and prosody and not pressured; thought process is linear and logical, some HAMLET or poor attention; otherwise pertinent to relevant topics and without any expressed delusional content, paranoid ideations or grandiosity; no SI/HI/AVH expressed. Patient Appearance: Well Grooomed Patient Orientation: Person and Situation Level of Consciousness: Awake and Appropriate Patient Behavior: Guarded and Passive Behavior Comments: can be irritable in pm Mood Description: Withdrawn Affect Description: Constricted Patient Cognition Impaired: Yes Ability to Follow Directions: Good Speech Pattern: Clear Memory Description: Remote Impaired Diagnostics Vital Signs (24Hr): Vital Signs - 24 hr 04/23/23 20:00 04/24/23 06:00 04/24/23 08:00 Temperature 98.1 F 98.2 F 98.2 F Pulse Rate 74 75 75 Respiratory Rate 16 18 18 Blood Pressure 124/73 115/70 115/70 Pulse Oximetry 99 96 96 Oxygen Delivery Method Room Air Room Air Room Air BMI result Body Mass Index 30.0 Labs 03/03/23 20:10 03/25/23 12:35 Medications Medications Current Medications Acetaminophen (Acetaminophen 325 Mg Tablet) 650 mg PO Q6H PRN PRN Reason: mild pain Last Admin: 04/13/23 08:22 Dose: 650 mg Benztropine Mesylate (Benztropine Mesylate 1 Mg Tablet) 1 mg PO BID [facility] Last Admin: 04/24/23 07:52 Dose: 1 mg Carbamazepine (Carbamazepine 200 Mg Tablet) 400 mg PO DAILY COUNTS INCLUDE 234 BEDS AT THE [facility] Last Admin: 04/24/23 07:51 Dose: 400 mg Carbamazepine (Carbamazepine Er 200 Mg Tab.Er.12h) 600 mg PO BEDTIME [facility] Last Admin: 04/23/23 20:24 Dose: 600 mg Chlorpromazine HCl (Chlorpromazine Hcl 100 Mg Tablet) 400 mg PO BEDTIME [facility] Last Admin: 04/23/23 20:24 Dose: 400 mg Chlorpromazine HCl (Chlorpromazine Hcl 100 Mg Tablet) 100 mg PO Q4H PRN PRN Reason: agitation/anxiety Last Admin: 04/12/23 15:51 Dose: 100 mg Diphenhydramine HCl (Diphenhydramine Hcl 25 Mg Capsule) 50 mg PO Q6H PRN PRN Reason: Allergic Symptoms Last Admin: 04/16/23 02:31 Dose: 50 mg Fluphenazine HCl (Fluphenazine Hcl 2.5 Mg/Ml 10 Ml Vial) 5 mg IM TID PRN PRN Reason: refusal of PO fluphenazine [place] Carbonate ([place] Carbonate Er 450 Mg Tablet.Er) 900 mg PO BEDTIME [facility] Last Admin: 04/23/23 20:25 Dose: 900 mg [place] Carbonate ([place] Carbonate Er 300 Mg Tablet.Er) 300 mg PO DAILY COUNTS INCLUDE 234 BEDS AT THE [facility] Last Admin: 04/24/23 07:51 Dose: 300 mg [place] Carbonate ([place] Carbonate Er 450 Mg Tablet.Er) 450 mg PO DAILY COUNTS INCLUDE 234 BEDS AT THE [facility] Last Admin: 04/24/23 07:52 Dose: 450 mg Multi-Ingred Cream/Lotion/Oil/Oint (Mineral Oil/Petrolatum,White 106 Gm Tube) 1 appl TOPICAL BID [facility]; Protocol Last Admin: 04/24/23 07:53 Dose: Not Given Polyethylene Glycol (Polyethylene Glycol 3350 17 Gm Powd.Pack) 17 gm PO DAILY PRN PRN Reason: constipation Last Admin: 04/03/23 11:15 Dose: 17 gm Allergies Allergies Allergy/AdvReac Type Severity Reaction Status Date / Time morphine [MORPHINE] AdvReac Unknown NAUSEA Verified 12/10/22 19:56 Assessment & Plan Assessment & Plan (1) Schizoaffective disorder, bipolar type: Status: Acute Code(s): F25.0 - Schizoaffective disorder, bipolar type (2) Nonspecific ST-T wave electrocardiographic changes: Status: Acute Code(s): R94.31 - Abnormal electrocardiogram [ECG] [EKG] (3) Cocaine use disorder: Status: Acute Code(s): F14.10 - Cocaine abuse, uncomplicated (4) Opioid use disorder: Status: Acute Code(s): F11.90 - Opioid use, unspecified, uncomplicated Plan 03/09: Patient presents guarded during 1:1. He reports feeling okay today; states he is sleeping well. Isolative. Pt reports he doesn't go to groups because I don't learn anything . Denies SI/HI/VH/AH. Continue current tx plan. 03/10: Patient presents guarded and brief today. He reports feeling good . Pt stated, I don't need anything Denies SI/HI/VH/AH. 03/11: periods of cogency and periods of apparent thought disorganization. denying Sx but appears to still be RIS and distracted. continue current mgmt for now. 03/12 continue same treatment. 03/13 continue same treatment. 03/14: continue current mgmt. plan to streamline medications regimen prior to discharge. T/C prolixin MENDES. 03/15: Continue current treatment plan. 03/16: streamlining meds today. decrease thorazine PRN availability. start prolixin decanoate tomorrow morning, will decrease PO prolixin by about half once the injection is given. continue other medications for now. 03/17: received prolixin DEC 25 mg today. decrease PO prolixin from 7.5 TID to 5 BID, otherwise continue current mgmt. 03/18: Continue current treatment plan. 03/19: continue current mgmt. noted to have hit himself in the thigh twice apparently in frustration, occasionally mumble to himself, and have a minimal outburst at last evening. likely related to transition from PO prolixin to IM decanoate. 03/20: no change in presentation. continue current mgmt. 03/21: stable. continue current mgmt. 03/22: stable. continue current mgmt. next prolixin DEC dose 03/31, DC PO prolixin at that time. 03/23: Continue current tx plan. 03/24: Patient reports feeling more energetic today ; stated he does not need anything . Presents calm, pleasant. denies SI/HI/VH/AH. Continue current tx plan. 03/25: Continue current tx plan. 03/26: Continue current management and treatment plan. 03/28: continue current mgmt. prolixin DEC 03/31, then DC PO prolixin. planning for discharge late next week. 03/29: change thorazine 100/100/200 to 100/300 for ease of administration post- discharge. prolixin DEC 25 on , DC PO prolixin . otherwise continue current mgmt. 03/30: Continue current tx plan. 03/31: Continue current treatment plan 04/01 continue tx. 04/02 continue tx. 04/03 continue tx. 04/04: increase availability of thorazine to 100 Q4H PRN agitation. some decompensation since second prolixin dec shot and discontinuation of PO fluphenazine. continue current mgmt, wait for MENDES to increase its effect. 04/05: continues with exacerbated psychotic Sx since DC of PO prolixin and initiation of MENDES. continue current mgmt. 04/06: perhaps less overtly psychotic than past couple of days. continue current mgmt. 04/07: remains decompensated from 1-2 weeks prior. continue current mgmt. was informed we will likely need another week of hospitalization. 04/08: no change in presentation or mgmt. 04/10: no changes- got prolixin dec 03/17 and 03/31, next due 04/14 04/11: continue current mgmt. plan to increase dose of prolixin dec. 04/12: no change in presentation. continue current mgmt. increase prolixin DEC dosing from 25 Q2wks to 37.5 Q2wks as of 04/14. 04/13: no change in presentation. continue current mgmt. 04/14: received prolixin DEC 37.5 mg today. no change in presentation. 04/15: stable, symptomatic with regard to previous presentation on PO prolixin. continue current mgmt. 04/16 keep same treatment 04/17 keep same treatment 04/18: no change in presentation from last week. able to engage better with staff, yet struggling with AH, sometimes yelling out. 04/19: stable presentation. 04/20: continue current mgmt. stable. 04/21: no RIS in the green observed the past two days by this service writer, which is an improvement. continue current mgmt. 12/15: no RIS observed past 3 days now, per staff some RIS last night. no outbursts. continue current mgmt. 04/23: Continue current management and treatment plan. 04/24: Continue current management and treatment plan. Reason for continued inpatient stay Substantial Risk for: inability to function and rapid decompensation Time Spent With Patient Time: Total time managing care of this patient today ____ minutes.
[2023-04-24 20:14] VITALS: BP 127/78; PULSE 73; RESP 18; TEMP 36.7; O2SAT 98
[2023-04-24] MEDS: Lithium Carbonate ER 450 MG TABLET.ER 900 MG PO (22:23)
[2023-04-24] MEDS: carBAMazepine ER 200 MG TAB.ER.12H 600 MG PO (22:23)
[2023-04-24] MEDS: chlorproMAZINE HCl 100 MG TABLET 400 MG PO (22:24)
[2023-04-25] MEDS: Lithium Carbonate ER 300 MG TABLET.ER PO (08:26)
[2023-04-25] MEDS: Lithium Carbonate ER 450 MG TABLET.ER PO (08:26)
[2023-04-25] MEDS: Benztropine Mesylate 1 MG TABLET PO ×2 (08:26→22:17)
[2023-04-25] MEDS: carBAMazepine 200 MG TABLET 400 MG PO (08:26)
[2023-04-25 08:53] VITALS: BP 111/64; PULSE 83; RESP 18; TEMP 36.3; O2SAT 99
--- NOTE | 2023-04-25 15:22 | P.PNPSI_ITS ---
Subjective Subjective Date of Service: 04/25/23 Reason For Visit: Psychosis Interim History: calm, cooperative. no complaints. informed of plan to give IM and then discharge. per staff, no change in presentation. no outbursts over w/e, but still apparent RIS. Mental Status Exam Mental Status Exam Narrative: Pt is alert and oriented; behavior is calm; dressed in casual attire; mood is described as good; eye contact appropriate; Speech is normal rate, volume and prosody and not pressured; thought process is linear and logical, some HAMLET or poor attention; otherwise pertinent to relevant topics and without any expressed delusional content, paranoid ideations or grandiosity; no SI/HI/AVH expressed. Diagnostics Vital Signs (24Hr): Vital Signs - 24 hr 04/24/23 20:14 04/25/23 08:53 Temperature 98.0 F 97.3 F Pulse Rate 73 83 Respiratory Rate 18 18 Blood Pressure 127/78 111/64 Pulse Oximetry 98 99 Oxygen Delivery Method Room Air Room Air BMI result Body Mass Index 30.0 Labs 03/03/23 20:10 03/25/23 12:35 Medications Medications Current Medications Acetaminophen (Acetaminophen 325 Mg Tablet) 650 mg PO Q6H PRN PRN Reason: mild pain Last Admin: 04/13/23 08:22 Dose: 650 mg Benztropine Mesylate (Benztropine Mesylate 1 Mg Tablet) 1 mg PO BID [facility] Last Admin: 04/25/23 08:26 Dose: 1 mg Carbamazepine (Carbamazepine 200 Mg Tablet) 400 mg PO DAILY [facility] Last Admin: 04/25/23 08:26 Dose: 400 mg Carbamazepine (Carbamazepine Er 200 Mg Tab.Er.12h) 600 mg PO BEDTIME [facility] Last Admin: 04/24/23 22:23 Dose: 600 mg Chlorpromazine HCl (Chlorpromazine Hcl 100 Mg Tablet) 400 mg PO BEDTIME [facility] Last Admin: 04/24/23 22:24 Dose: 400 mg Chlorpromazine HCl (Chlorpromazine Hcl 100 Mg Tablet) 100 mg PO Q4H PRN PRN Reason: agitation/anxiety Last Admin: 04/12/23 15:51 Dose: 100 mg Diphenhydramine HCl (Diphenhydramine Hcl 25 Mg Capsule) 50 mg PO Q6H PRN PRN Reason: Allergic Symptoms Last Admin: 04/16/23 02:31 Dose: 50 mg Fluphenazine HCl (Fluphenazine Hcl 2.5 Mg/Ml 10 Ml Vial) 5 mg IM TID PRN PRN Reason: refusal of PO fluphenazine [place] Carbonate ([place] Carbonate Er 450 Mg Tablet.Er) 900 mg PO BEDTIME [facility] Last Admin: 04/24/23 22:23 Dose: 900 mg [place] Carbonate ([place] Carbonate Er 300 Mg Tablet.Er) 300 mg PO DAILY [facility] Last Admin: 04/25/23 08:26 Dose: 300 mg [place] Carbonate ([place] Carbonate Er 450 Mg Tablet.Er) 450 mg PO DAILY [facility] Last Admin: 04/25/23 08:26 Dose: 450 mg Multi-Ingred Cream/Lotion/Oil/Oint (Mineral Oil/Petrolatum,White 106 Gm Tube) 1 appl TOPICAL BID [facility]; Protocol Last Admin: 04/25/23 08:28 Dose: Not Given Polyethylene Glycol (Polyethylene Glycol 3350 17 Gm Powd.Pack) 17 gm PO DAILY PRN PRN Reason: constipation Last Admin: 04/03/23 11:15 Dose: 17 gm Allergies Allergies Allergy/AdvReac Type Severity Reaction Status Date / Time morphine [MORPHINE] AdvReac Unknown NAUSEA Verified 12/10/22 19:56 Assessment & Plan Assessment & Plan (1) Schizoaffective disorder, bipolar type: Status: Acute Code(s): F25.0 - Schizoaffective disorder, bipolar type (2) Nonspecific ST-T wave electrocardiographic changes: Status: Acute Code(s): R94.31 - Abnormal electrocardiogram [ECG] [EKG] (3) Cocaine use disorder: Status: Acute Code(s): F14.10 - Cocaine abuse, uncomplicated (4) Opioid use disorder: Status: Acute Code(s): F11.90 - Opioid use, unspecified, uncomplicated Plan 03/09: Patient presents guarded during 1:1. He reports feeling okay today; states he is sleeping well. Isolative. Pt reports he doesn't go to groups because I don't learn anything . Denies SI/HI/VH/AH. Continue current tx plan. 03/10: Patient presents guarded and brief today. He reports feeling good . Pt stated, I don't need anything Denies SI/HI/VH/AH. 03/11: periods of cogency and periods of apparent thought disorganization. denying Sx but appears to still be RIS and distracted. continue current mgmt for now. 03/12 continue same treatment. 03/13 continue same treatment. 03/14: continue current mgmt. plan to streamline medications regimen prior to discharge. T/C prolixin MENDES. 03/15: Continue current treatment plan. 03/16: streamlining meds today. decrease thorazine PRN availability. start prolixin decanoate tomorrow morning, will decrease PO prolixin by about half once the injection is given. continue other medications for now. 03/17: received prolixin DEC 25 mg today. decrease PO prolixin from 7.5 TID to 5 BID, otherwise continue current mgmt. 03/18: Continue current treatment plan. 03/19: continue current mgmt. noted to have hit himself in the thigh twice apparently in frustration, occasionally mumble to himself, and have a minimal outburst at AH last evening. likely related to transition from PO prolixin to IM decanoate. 03/20: no change in presentation. continue current mgmt. 03/21: stable. continue current mgmt. 03/22: stable. continue current mgmt. next prolixin DEC dose 03/31, DC PO prolixin at that time. 03/23: Continue current tx plan. 03/24: Patient reports feeling more energetic today ; stated he does not need anything . Presents calm, pleasant. denies SI/HI/VH/AH. Continue current tx plan. 03/25: Continue current tx plan. 03/26: Continue current management and treatment plan. 03/28: continue current mgmt. prolixin DEC 03/31, then DC PO prolixin. planning for discharge late next week. 03/29: change thorazine 100/100/200 to 100/300 for ease of administration post- discharge. prolixin DEC 25 on , DC PO prolixin . otherwise continue current mgmt. 03/30: Continue current tx plan. 03/31: Continue current treatment plan 04/01 continue tx. 04/02 continue tx. 04/03 continue tx. 04/04: increase availability of thorazine to 100 Q4H PRN agitation. some decompensation since second prolixin dec shot and discontinuation of PO fluphenazine. continue current mgmt, wait for MENDES to increase its effect. 04/05: continues with exacerbated psychotic Sx since DC of PO prolixin and initiation of MENDES. continue current mgmt. 04/06: perhaps less overtly psychotic than past couple of days. continue current mgmt. 04/07: remains decompensated from 1-2 weeks prior. continue current mgmt. was informed we will likely need another week of hospitalization. 04/08: no change in presentation or mgmt. 04/10: no changes- got prolixin dec 03/17 and 03/31, next due 04/14 04/11: continue current mgmt. plan to increase dose of prolixin dec. 04/12: no change in presentation. continue current mgmt. increase prolixin DEC dosing from 25 Q2wks to 37.5 Q2wks as of 04/14. 04/13: no change in presentation. continue current mgmt. 04/14: received prolixin DEC 37.5 mg today. no change in presentation. 04/15: stable, symptomatic with regard to previous presentation on PO prolixin. continue current mgmt. 04/16 keep same treatment 04/17 keep same treatment 04/18: no change in presentation from last week. able to engage better with staff, yet struggling with AH, sometimes yelling out. 04/19: stable presentation. 04/20: continue current mgmt. stable. 04/21: no RIS in the green observed the past two days by this publications writer, which is an improvement. continue current mgmt. 04/22: no RIS observed past 3 days now, per staff some RIS last night. no outbursts. continue current mgmt. 04/23: Continue current management and treatment plan. 04/24: Continue current management and treatment plan. 04/25: no observed RIS by MD, no outbursts over w/e. still some RIS observed over w/e by staff. plan for next IM and discharge same day. Reason for continued inpatient stay Substantial Risk for: inability to function and rapid decompensation Time Spent With Patient Time: Total time managing care of this patient today _25___ minutes.
[2023-04-25 19:16] VITALS: BP 132/80; PULSE 81; RESP 18; TEMP 36.1; O2SAT 96
[2023-04-25] MEDS: Lithium Carbonate ER 450 MG TABLET.ER 900 MG PO (22:17)
[2023-04-25] MEDS: carBAMazepine ER 200 MG TAB.ER.12H 600 MG PO (22:17)
[2023-04-25] MEDS: chlorproMAZINE HCl 100 MG TABLET 400 MG PO (22:17)
[2023-04-26 08:00] VITALS: BP 141/66; PULSE 83; RESP 16; TEMP 36.7; O2SAT 100
[2023-04-26] MEDS: Lithium Carbonate ER 450 MG TABLET.ER PO (09:20)
[2023-04-26] MEDS: Lithium Carbonate ER 300 MG TABLET.ER PO (09:20)
[2023-04-26] MEDS: carBAMazepine 200 MG TABLET 400 MG PO (09:20)
[2023-04-26] MEDS: Benztropine Mesylate 1 MG TABLET PO ×2 (09:21→20:34)
--- NOTE | 2023-04-26 15:16 | P.PNPSI_ITS ---
Subjective Subjective Date of Service: 04/26/23 Reason For Visit: Psychosis Interim History: no change in presentation. per staff, same. per SW, amenable to DC tuesday. Mental Status Exam Mental Status Exam Narrative: Pt is alert and oriented; behavior is calm; dressed in casual attire; mood is described as good; eye contact appropriate; Speech is normal rate, volume and prosody and not pressured; thought process is linear and logical, some HAMLET or poor attention; otherwise pertinent to relevant topics and without any expressed delusional content, paranoid ideations or grandiosity; no SI/HI/AVH expressed. Diagnostics Vital Signs (24Hr): Vital Signs - 24 hr 04/25/23 19:16 04/26/23 08:00 Temperature 97.0 F 98.0 F Pulse Rate 81 83 Respiratory Rate 18 16 Blood Pressure 132/80 141/66 H Pulse Oximetry 96 100 Oxygen Delivery Method Room Air Room Air BMI result Body Mass Index 30.0 Labs 03/03/23 20:10 03/25/23 12:35 Medications Medications Current Medications Acetaminophen (Acetaminophen 325 Mg Tablet) 650 mg PO Q6H PRN PRN Reason: mild pain Last Admin: 04/13/23 08:22 Dose: 650 mg Benztropine Mesylate (Benztropine Mesylate 1 Mg Tablet) 1 mg PO BID [facility] Last Admin: 04/26/23 09:21 Dose: 1 mg Carbamazepine (Carbamazepine 200 Mg Tablet) 400 mg PO DAILY [facility] Last Admin: 04/26/23 09:20 Dose: 400 mg Carbamazepine (Carbamazepine Er 200 Mg Tab.Er.12h) 600 mg PO BEDTIME [facility] Last Admin: 04/25/23 22:17 Dose: 600 mg Chlorpromazine HCl (Chlorpromazine Hcl 100 Mg Tablet) 400 mg PO BEDTIME [facility] Last Admin: 04/25/23 22:17 Dose: 400 mg Chlorpromazine HCl (Chlorpromazine Hcl 100 Mg Tablet) 100 mg PO Q4H PRN PRN Reason: agitation/anxiety Last Admin: 04/12/23 15:51 Dose: 100 mg Diphenhydramine HCl (Diphenhydramine Hcl 25 Mg Capsule) 50 mg PO Q6H PRN PRN Reason: Allergic Symptoms Last Admin: 04/16/23 02:31 Dose: 50 mg Fluphenazine HCl (Fluphenazine Hcl 2.5 Mg/Ml 10 Ml Vial) 5 mg IM TID PRN PRN Reason: refusal of PO fluphenazine [place] Carbonate ([place] Carbonate Er 450 Mg Tablet.Er) 900 mg PO BEDTIME [facility] Last Admin: 04/25/23 22:17 Dose: 900 mg [place] Carbonate ([place] Carbonate Er 300 Mg Tablet.Er) 300 mg PO DAILY [facility] Last Admin: 04/26/23 09:20 Dose: 300 mg [place] Carbonate ([place] Carbonate Er 450 Mg Tablet.Er) 450 mg PO DAILY [facility] Last Admin: 04/26/23 09:20 Dose: 450 mg Multi-Ingred Cream/Lotion/Oil/Oint (Mineral Oil/Petrolatum,White 106 Gm Tube) 1 appl TOPICAL BID [facility]; Protocol Last Admin: 04/26/23 09:22 Dose: Not Given Polyethylene Glycol (Polyethylene Glycol 3350 17 Gm Powd.Pack) 17 gm PO DAILY PRN PRN Reason: constipation Last Admin: 04/03/23 11:15 Dose: 17 gm Allergies Allergies Allergy/AdvReac Type Severity Reaction Status Date / Time morphine [MORPHINE] AdvReac Unknown NAUSEA Verified 12/10/22 19:56 Assessment & Plan Assessment & Plan (1) Schizoaffective disorder, bipolar type: Status: Acute Code(s): F25.0 - Schizoaffective disorder, bipolar type (2) Nonspecific ST-T wave electrocardiographic changes: Status: Acute Code(s): R94.31 - Abnormal electrocardiogram [ECG] [EKG] (3) Cocaine use disorder: Status: Acute Code(s): F14.10 - Cocaine abuse, uncomplicated (4) Opioid use disorder: Status: Acute Code(s): F11.90 - Opioid use, unspecified, uncomplicated Plan 03/09: Patient presents guarded during 1:1. He reports feeling okay today; states he is sleeping well. Isolative. Pt reports he doesn't go to groups because I don't learn anything . Denies SI/HI/VH/AH. Continue current tx plan. 03/10: Patient presents guarded and brief today. He reports feeling good . Pt stated, I don't need anything Denies SI/HI/VH/AH. 03/11: periods of cogency and periods of apparent thought disorganization. denying Sx but appears to still be RIS and distracted. continue current mgmt for now. 03/12 continue same treatment. 03/13 continue same treatment. 03/14: continue current mgmt. plan to streamline medications regimen prior to discharge. T/C prolixin MENDES. 03/15: Continue current treatment plan. 03/16: streamlining meds today. decrease thorazine PRN availability. start prolixin decanoate tomorrow morning, will decrease PO prolixin by about half once the injection is given. continue other medications for now. 03/17: received prolixin DEC 25 mg today. decrease PO prolixin from 7.5 TID to 5 BID, otherwise continue current mgmt. 03/18: Continue current treatment plan. 03/19: continue current mgmt. noted to have hit himself in the thigh twice apparently in frustration, occasionally mumble to himself, and have a minimal outburst at last evening. likely related to transition from PO prolixin to IM decanoate. 03/20: no change in presentation. continue current mgmt. 03/21: stable. continue current mgmt. 03/22: stable. continue current mgmt. next prolixin DEC dose 03/31, DC PO prolixin at that time. 03/23: Continue current tx plan. 03/24: Patient reports feeling more energetic today ; stated he does not need anything . Presents calm, pleasant. denies SI/HI/VH/AH. Continue current tx plan. 03/25: Continue current tx plan. 03/26: Continue current management and treatment plan. 03/28: continue current mgmt. prolixin DEC 03/31, then DC PO prolixin. planning for discharge late next week. 03/29: change thorazine 100/100/200 to 100/300 for ease of administration post- discharge. prolixin DEC 25 on , DC PO prolixin . otherwise continue current mgmt. 03/30: Continue current tx plan. 03/31: Continue current treatment plan 04/01 continue tx. 04/02 continue tx. 04/03 continue tx. 04/04: increase availability of thorazine to 100 Q4H PRN agitation. some decompensation since second prolixin dec shot and discontinuation of PO fluphenazine. continue current mgmt, wait for MENDES to increase its effect. 04/05: continues with exacerbated psychotic Sx since DC of PO prolixin and initiation of MENDES. continue current mgmt. 04/06: perhaps less overtly psychotic than past couple of days. continue current mgmt. 04/07: remains decompensated from 1-2 weeks prior. continue current mgmt. was informed we will likely need another week of hospitalization. 04/08: no change in presentation or mgmt. 04/10: no changes- got prolixin dec 03/17 and 03/31, next due 04/14 04/11: continue current mgmt. plan to increase dose of prolixin dec. 04/12: no change in presentation. continue current mgmt. increase prolixin DEC dosing from 25 Q2wks to 37.5 Q2wks as of 04/14. 04/13: no change in presentation. continue current mgmt. 04/14: received prolixin DEC 37.5 mg today. no change in presentation. 04/15: stable, symptomatic with regard to previous presentation on PO prolixin. continue current mgmt. 04/16 keep same treatment 04/17 keep same treatment 04/18: no change in presentation from last week. able to engage better with staff, yet struggling with AH, sometimes yelling out. 04/19: stable presentation. 04/20: continue current mgmt. stable. 04/21: no RIS in the green observed the past two days by this adjusto writer operator, which is an improvement. continue current mgmt. 04/22: no RIS observed past 3 days now, per staff some RIS last night. no outbursts. continue current mgmt. 04/23: Continue current management and treatment plan. 04/24: Continue current management and treatment plan. 04/25: no observed RIS by MD, no outbursts over w/e. still some RIS observed over w/e by staff. plan for next and discharge same day. 04/26: no report of RIS or outbursts. amenable to tuesday discharge. stable. Reason for continued inpatient stay Substantial Risk for: inability to function and rapid decompensation Time Spent With Patient Time: Total time managing care of this patient today ____ minutes.
[2023-04-26 18:50] VITALS: BP 153/81; PULSE 84; RESP 16; TEMP 36.6; O2SAT 98
[2023-04-26] MEDS: chlorproMAZINE HCl 100 MG TABLET 400 MG PO (20:31)
[2023-04-26] MEDS: Lithium Carbonate ER 450 MG TABLET.ER 900 MG PO (20:32)
[2023-04-26] MEDS: carBAMazepine ER 200 MG TAB.ER.12H 600 MG PO (20:33)
[2023-04-26 20:40] VITALS: BP 135/68; PULSE 76; RESP 18; TEMP 36.6; O2SAT 98
[2023-04-27] MEDS: Benztropine Mesylate 1 MG TABLET PO ×2 (08:20→20:49)
[2023-04-27] MEDS: Lithium Carbonate ER 300 MG TABLET.ER PO (08:20)
[2023-04-27] MEDS: Lithium Carbonate ER 450 MG TABLET.ER PO (08:20)
[2023-04-27] MEDS: carBAMazepine 200 MG TABLET 400 MG PO (08:21)
[2023-04-27 08:26] VITALS: BP 120/71; PULSE 82; RESP 18; TEMP 36.9; O2SAT 99
--- NOTE | 2023-04-27 15:46 | HO.PSYCHPN ---
Subjective Subjective Date of Service: 04/27/23 Reason For Visit: Psychosis Interim History: calm, cooperative, no questions or complaints. acknowledges AH last night and that they are products of his brain. per staff, dep 4, anx 7. ovidio yelling loudly at , pacing, self-dialoguing. slept 8 hours. Mental Status Exam Mental Status Exam Narrative: Pt is alert and oriented; behavior is calm; dressed in casual attire; mood is described as good; eye contact appropriate; Speech is normal rate, volume and prosody and not pressured; thought process is linear and logical, some HAMLET or poor attention; otherwise pertinent to relevant topics and without any expressed delusional content, paranoid ideations or grandiosity; no SI/HI/AVH expressed. Diagnostics Vital Signs (24Hr): Vital Signs - 24 hr 04/26/23 20:40 04/27/23 08:26 Temperature 98 F 98.4 F Pulse Rate 76 82 Respiratory Rate 18 18 Blood Pressure 135/68 120/71 Pulse Oximetry 98 99 Oxygen Delivery Method Room Air Room Air BMI result Body Mass Index 30.0 Labs 03/03/23 20:10 03/25/23 12:35 Medications Medications Current Medications Acetaminophen (Acetaminophen 325 Mg Tablet) 650 mg PO Q6H PRN PRN Reason: mild pain Last Admin: 04/13/23 08:22 Dose: 650 mg Benztropine Mesylate (Benztropine Mesylate 1 Mg Tablet) 1 mg PO BID [facility] Last Admin: 04/27/23 08:20 Dose: 1 mg Carbamazepine (Carbamazepine 200 Mg Tablet) 400 mg PO DAILY [facility] Last Admin: 04/27/23 08:21 Dose: 400 mg Carbamazepine (Carbamazepine Er 200 Mg Tab.Er.12h) 600 mg PO BEDTIME [facility] Last Admin: 04/26/23 20:33 Dose: 600 mg Chlorpromazine HCl (Chlorpromazine Hcl 100 Mg Tablet) 400 mg PO BEDTIME [facility] Last Admin: 04/26/23 20:31 Dose: 400 mg Chlorpromazine HCl (Chlorpromazine Hcl 100 Mg Tablet) 100 mg PO Q4H PRN PRN Reason: agitation/anxiety Last Admin: 04/12/23 15:51 Dose: 100 mg Diphenhydramine HCl (Diphenhydramine Hcl 25 Mg Capsule) 50 mg PO Q6H PRN PRN Reason: Allergic Symptoms Last Admin: 04/16/23 02:31 Dose: 50 mg Fluphenazine HCl (Fluphenazine Hcl 2.5 Mg/Ml 10 Ml Vial) 5 mg IM TID PRN PRN Reason: refusal of PO fluphenazine [place] Carbonate ([place] Carbon[place] Er 450 Mg Tablet.Er) 900 mg PO BEDTIME [facility] Last Admin: 04/26/23 20:32 Dose: 900 mg [place] [facility] Carbonate ([place] Carbonate Er 300 Mg Tablet.Er) 300 mg PO DAILY [facility] Last Admin: 04/27/23 08:20 Dose: 300 mg [place] [facility] Carbonate ([place] Carbonate Er 450 Mg Tablet.Er) 450 mg PO DAILY [facility] Last Admin: 04/27/23 08:20 Dose: 450 mg Multi-Ingred Cream/Lotion/Oil/Oint (Mineral Oil/Petrolatum,White 106 Gm Tube) 1 appl TOPICAL BID [facility]; Protocol Last Admin: 04/27/23 08:24 Dose: Not Given Polyethylene Glycol (Polyethylene Glycol 3350 17 Gm Powd.Pack) 17 gm PO DAILY PRN PRN Reason: constipation Last Admin: 04/03/23 11:15 Dose: 17 gm Allergies Allergies Allergy/AdvReac Type Severity Reaction Status Date / Time morphine [MORPHINE] AdvReac Unknown NAUSEA Verified 12/10/22 19:56 Assessment & Plan Assessment & Plan (1) Schizoaffective disorder, bipolar type: Status: Acute Code(s): F25.0 - Schizoaffective disorder, bipolar type (2) Nonspecific ST-T wave electrocardiographic changes: Status: Acute Code(s): R94.31 - Abnormal electrocardiogram [ECG] [EKG] (3) Cocaine use disorder: Status: Acute Code(s): F14.10 - Cocaine abuse, uncomplicated (4) Opioid use disorder: Status: Acute Code(s): F11.90 - Opioid use, unspecified, uncomplicated Plan 03/09: Patient presents guarded during 1:1. He reports feeling okay today; states he is sleeping well. Isolative. Pt reports he doesn't go to groups because I don't learn anything . Denies SI/HI/VH/AH. Continue current tx plan. 03/10: Patient presents guarded and brief today. He reports feeling good . Pt stated, I don't need anything Denies SI/HI/VH/AH. 11/3: periods of cogency and periods of apparent thought disorganization. denying Sx but appears to still be RIS and distracted. continue current mgmt for now. 03/12 continue same treatment. 03/13 continue same treatment. 03/14: continue current mgmt. plan to streamline medications regimen prior to discharge. T/C prolixin MENDES. 03/15: Continue current treatment plan. 03/16: streamlining meds today. decrease thorazine PRN availability. start prolixin decanoate tomorrow morning, will decrease PO prolixin by about half once the injection is given. continue other medications for now. 03/17: received prolixin DEC 25 mg today. decrease PO prolixin from 7.5 TID to 5 BID, otherwise continue current mgmt. 03/18: Continue current treatment plan. 03/19: continue current mgmt. noted to have hit himself in the thigh twice apparently in frustration, occasionally mumble to himself, and have a minimal outburst at AH last evening. likely related to transition from PO prolixin to IM decanoate. 03/20: no change in presentation. continue current mgmt. 03/21: stable. continue current mgmt. 03/22: stable. continue current mgmt. next prolixin DEC dose 03/31, DC PO prolixin at that time. 03/23: Continue current tx plan. 03/24: Patient reports feeling more energetic today ; stated he does not need anything . Presents calm, pleasant. denies SI/HI/VH/AH. Continue current tx plan. 03/25: Continue current tx plan. 03/26: Continue current management and treatment plan. 03/28: continue current mgmt. prolixin DEC 03/31, then DC PO prolixin. planning for discharge late next week. 03/29: change thorazine 100/100/200 to 100/300 for ease of administration post-discharge. prolixin DEC 25 on , DC PO prolixin . otherwise continue current mgmt. 03/30: Continue current tx plan. 03/31: Continue current treatment plan 04/01 continue tx. 04/02 continue tx. 04/03 continue tx. 04/04: increase availability of thorazine to 100 Q4H PRN agitation. some decompensation since second prolixin dec shot and discontinuation of PO fluphenazine. continue current mgmt, wait for MENDES to increase its effect. 04/05: continues with exacerbated psychotic Sx since DC of PO prolixin and initiation of MENDES. continue current mgmt. 04/06: perhaps less overtly psychotic than past couple of days. continue current mgmt. 04/07: remains decompensated from 1-2 weeks prior. continue current mgmt. was informed we will likely need another week of hospitalization. 04/08: no change in presentation or mgmt. 04/10: no changes- got prolixin dec 03/17 and 03/31, next due 04/14 04/11: continue current mgmt. plan to increase dose of prolixin dec. 04/12: no change in presentation. continue current mgmt. increase prolixin DEC dosing from 25 Q2wks to 37.5 Q2wks as of 04/14. 04/13: no change in presentation. continue current mgmt. 04/14: received prolixin DEC 37.5 mg today. no change in presentation. 04/15: stable, symptomatic with regard to previous presentation on PO prolixin. continue current mgmt. 04/16 keep same treatment 04/17 keep same treatment 04/18: no change in presentation from last week. able to engage better with staff, yet struggling with AH, sometimes yelling out. 04/19: stable presentation. 04/20: continue current mgmt. stable. 04/21: no RIS in the green observed the past two days by this marine underwriter, which is an improvement. continue current mgmt. 04/22: no RIS observed past 3 days now, per staff some RIS last night. no outbursts. continue current mgmt. 04/23: Continue current management and treatment plan. 04/24: Continue current management and treatment plan. 04/25: no observed RIS by MD, no outbursts over w/e. still some RIS observed over w/e by staff. plan for next and discharge same day. 04/26: no report of RIS or outbursts. amenable to tuesday discharge. stable. 04/27: RIS/yelling last night. appears to have insight that AH are products of his mind. continue current mgmt and plan. Reason for continued inpatient stay Substantial Risk for: rapid decompensation Time Spent With Patient Time: Total time managing care of this patient today ____ minutes.
[2023-04-27] MEDS: chlorproMAZINE HCl 100 MG TABLET 400 MG PO (20:48)
[2023-04-27] MEDS: carBAMazepine ER 200 MG TAB.ER.12H 600 MG PO (20:49)
[2023-04-27] MEDS: Lithium Carbonate ER 450 MG TABLET.ER 900 MG PO (20:49)
[2023-04-28 07:00] VITALS: BMI 29.7
[2023-04-28 08:00] VITALS: BP 116/61; PULSE 82; RESP 18; TEMP 36.7; O2SAT 98
[2023-04-28] MEDS: Benztropine Mesylate 1 MG TABLET PO ×2 (08:20→21:28)
[2023-04-28] MEDS: carBAMazepine 200 MG TABLET 400 MG PO (08:20)
[2023-04-28] MEDS: Lithium Carbonate ER 450 MG TABLET.ER PO (08:20)
[2023-04-28] MEDS: Lithium Carbonate ER 300 MG TABLET.ER PO (08:20)
--- NOTE | 2023-04-28 11:23 | PM.PSYDC ---
DS: Providers Provider Date of Service: 04/28/23 Date of admission: 12/23/22 22:13 Primary care physician: Unknown Physician Consults: 02/01/23 09:56 Consult to Cardiology Routine Consulting Provider: [facility] Reason for consultation: plz review EKG series; variable/concerning but without Sx Has provider been notified: No 02/04/23 13:21 Consult to Hospitalist Routine Comment: Consulting Provider: Hospitalist Reason For Exam: return from elopement DS: Diagnosis Discharge Diagnosis (1) Schizoaffective disorder, bipolar type: Status: Acute (2) Nonspecific ST-T wave electrocardiographic changes: Status: Acute (3) Cocaine use disorder: Status: Acute (4) Opioid use disorder: Status: Acute DS: Medications Discharge Medications Home Medications: Previous Rx's Medication Instructions Recorded benztropine 1 mg tablet 1 mg PO BID 30 days #60 tabs 04/28/23 carbamazepine 200 mg tablet 400 mg (2 x 200 mg) PO DAILY 30 04/28/23 days #60 tabs carbamazepine 200 mg 600 mg (3 x 200 mg) PO BEDTIME 30 04/28/23 tablet,extended release,12 hr days #90 tabs chlorpromazine 100 mg tablet 400 mg (4 x 100 mg) PO BEDTIME 30 04/28/23 days #120 tabs fluphenazine decanoate 25 mg/mL 37.5 mg (1.5 mL) IM Q14D@0900 #0 mL 04/28/23 injection solution lithium carbonate 300 mg 300 mg PO DAILY 30 days #30 tabs 04/28/23 tablet,extended release lithium carbonate 450 mg 450 mg PO DAILY 30 days #30 tabs 04/28/23 tablet,extended release lithium carbonate 450 mg 900 mg (2 x 450 mg) PO BEDTIME 30 04/28/23 tablet,extended release days #60 tabs Mental Status Exam Mental Status Exam Narrative: Pt is alert and oriented; behavior is calm; dressed in casual attire; mood is described as good; eye contact appropriate; Speech is normal rate, volume and prosody and not pressured; thought process is linear and logical, some HAMLET or poor attention; otherwise pertinent to relevant topics and without any expressed delusional content, paranoid ideations or grandiosity; no SI/HI/AVH. DS: Summary Hospital Course Hospital Course: Precis: 12/24: attempt to give anti-psychotics. comfort meds for opioid and cocaine withdrawal. 12/25: refusing medications. period of agitation last night slamming doors and yelling (presumably @AH). continue current mgmt. 12/26: refusing meds. binging and purging. floridly psychotic. 12/27: had meds last night for sleep, per his request. schedule all haldol tonight with ativan and cogentin. a bit more interactive today, remains delayed and distracted. no binging/purging behaviors or agitated behaviors described by RN report today. 12/28: refused meds last night. Today asks for meds for sx mgt- aggressive today-threw two coffee cups. Begin Depakote 250 mg bid. 12/29: got multiple meds last NOC and overnight per his request. slept 2 hours. refusing meds this morning. commitment paperwork completed. 3-day notice expires tomorrow. c/o opioid craving, asked for methadone. methadone 30 mg daily started today. 12/30: filed for commitment today. haldol and ativan per his request last night. appears in disbelief that he will not be discharged today. 12/31: demanding to leave, getting agitated, banging on nursing station, slamming doors in his room. given IMs x 2, haldol 10 ativan 2 benadryl 50 for first and thorazine 100 for second. 01/01: Remains unpredictable and irritable. Refusing scheduled medications. Section 7/8 filed. 01/03: refusing meds. irritable, labile. periods of agitation. continue current mgmt, awaiting hearing for . 01/04: refusing meds. irritable, labile. periods of agitation. continue current mgmt, though pt is refusing meds. 01/05: thought-blocked. denies mental illness or need for medications. offer medications. hearing tomorrow. 01/06: committed and ordered medications at hearing. 06/12/20 [facility] [place] reviewd, pt was discharged on VPA, zyprexa, haldol. 03/14/20 DC summary reviewed, pt discharged on zyprexa, haldol. pt unable to comprehend result, agitated not to be leaving today. 01/07: copy of court order on unit, will order meds accordingly today. no change in presentation. 01/11: DC VPA, start tegretol per pt preference. ativan 2 mg IM for refusal of tegretol. continue haldol PO/IM orders. improved from last week. less agitated, a bit more organized and engaging. 01/12: appears more disorganized again today, trouble engaging. refused PO meds last night but did take tegretol PO this morning. 01/13: continues disorganized, difficulty expressing himself. refusing PO meds since yesterday morning. slept 10 hours last night, however 01/14: intermittently taking meds PO versus IM. improved behavior from prior to med order, but remains floridly psychotic. continue current mgmt. 01/17: more compliant with tegretol in recent days, still getting haldol IM. no change in presentation. continue current mgmt. 01/18: remains psychotic, labile. increase tegretol to 300 mg BID. 01/19: continues more aggressive and labile today. increase haldol to 10 BID with back-up IM of 7.5 mg. 01/20: more calm today,periods of agitation, however, in the past 24H. continue current mgmt. declines to change scheduled haldol to thorazine (proposed by MD in the hope he would in order to spare him the IMs). 01/23 agreed to ekg today, added 1pm dose of 5mg haldol 01/24: taking meds PO, still suffering from AH, possibly VH. perhaps trending more calm, but clearly still periods of agitation in the past several days. 01/25: labile, paranoid delusions. informed staff he experiences AH, mumbles recently. increase tegretol to 400 BID, make IR formulation as he has been chewing the pills. 01/27: continues more calm. some staff concerned for akathisia due to pacing and number of PRNs taken, but appears to be doing less walking than he had been before, does not appear restless or uncomfortable. continue current mgmt, check tegretol level 2 weeks after dose change (02/08). 01/28: stable presentation. intermittent sleep disturbance. continue current mgmt. 01/31: continues to ask for lots of PRNs. no change in presentation. 01/28 mild anemia and hyponatremia; trend. tegretol level 10.3. 02/01: series of abnormal and dynamic EKGs; today's WNL. cardiology consult requested for opinion. will start lithium pending cards opinion re EKG series. no change in presentation. 02/02: appreciate cardiology consultation and opinion. echocardiogram ordered. lithium started. appears better able to tolerate longer interaction today. 02/03: improved ability to tolerate social engagements continues. feels lithium has been helpful. akathisia likely. decrease haldol 02/10/10 to 5 BID and add thorazine 25 BID at 0900 and 1300. 02/04: clear uptick in psychotic.manic behavior yesterday after haldol dose decrease. eloped today. increase thorazine to 100/100/200 with PRNS available. 02/05: no concerning behaviors since elopement yesterday. refused PO haldol last night, otherwise med compliant. 02/08: CBC/BMP not concerning. lithium 0.6, tegretol 9.0. increase lithium dosing from 600 BID to 600/900 as of tonight. DC haldol entirely out of concerns for akathisia. invega not a great option due to tegretol interaction. start prolixin PO with IM back-up as alternative neuroleptic to haldol. 02/10: increase prolixin from 5 BID to 5 TID. otherwise continue current mgmt. 02/13: Continue current treatment plan. Li level 0.68, CMZ level 8.6 02/15: increase lithium to 750/900. T/C increasing tegretol in near future as well. gradually seems to be improving. 02/16: stable. continue current mgmt. has broached feeling depressed the past couple of days. 02/18: check labs in several days. stable, Sx much improved from prior but still clearly psychotic. 02/21: continue current mgmt. check labs soon. still psychotic, endorsing NILA. 02/23: tegretol 8.3, lithium 0.96. increase tegretol from 400 BID to 400/600 as of tonight. c/o restlessness, concern for akathisia. will review neuroleptics regimen if Sx do not improve in next several days (as might be the case if his restlessness is residual dante). also, AH continue. 02/25: better related, discussed his post-discharge plans. family meeting late next week. continue current regimen, check labs around 03/02. 02/28: +RIS, bizarrely ends interview with MD by just getting up and walking away without a look or a word. increase prolixin 5 TID to 7.5 TID for psychosis. otherwise continue current mgmt. 03/02: tired again, rouses himself to sit up for interview. latency of response, asks MD to repeat question once, but denies AH. continue current mgmt. 03/03: more up and about today. unconvincingly denies AH. continue current mgmt. check labs tonight. 03/04: labs reviewed with pt, that they are reassuring and medication levels are good. tegretol 9.6, lithium 0.76. continue current mgmt. 03/07: continue current mgmt. mtg btwn SW and pt's family held today. 03/09: Patient presents guarded during 1:1. He reports feeling okay today; states he is sleeping well. Isolative. Pt reports he doesn't go to groups because I don't learn anything . Denies SI/HI/VH/AH. Continue current tx plan. 03/10: Patient presents guarded and brief today. He reports feeling good . Pt stated, I don't need anything Denies SI/HI/VH/AH. 03/11: periods of cogency and periods of apparent thought disorganization. denying Sx but appears to still be RIS and distracted. continue current mgmt for now. 03/16: streamlining meds today. decrease thorazine PRN availability. start prolixin decanoate tomorrow morning, will decrease PO prolixin by about half once the injection is given. continue other medications for now. 03/17: received prolixin DEC 25 mg today. decrease PO prolixin from 7.5 TID to 5 BID, otherwise continue current mgmt. 03/19: continue current mgmt. noted to have hit himself in the thigh twice apparently in frustration, occasionally mumble to himself, and have a minimal outburst at AH last evening. likely related to transition from PO prolixin to IM decanoate. 03/20: no change in presentation. continue current mgmt. 03/24: Patient reports feeling more energetic today ; stated he does not need anything . Presents calm, pleasant. denies SI/HI/VH/AH. Continue current tx plan. 03/29: change thorazine 100/100/200 to 100/300 for ease of administration post-discharge. prolixin DEC 25 on , DC PO prolixin . otherwise continue current mgmt. 04/04: increase availability of thorazine to 100 Q4H PRN agitation. some decompensation since second prolixin dec shot and discontinuation of PO fluphenazine. continue current mgmt, wait for MENDES to increase its effect. 04/05: continues with exacerbated psychotic Sx since DC of PO prolixin and initiation of MENDES. continue current mgmt. 04/06: perhaps less overtly psychotic than past couple of days. continue current mgmt. 04/07: remains decompensated from 1-2 weeks prior. continue current mgmt. was informed we will likely need another week of hospitalization. 04/12: no change in presentation. continue current mgmt. increase prolixin DEC dosing from 25 Q2wks to 37.5 Q2wks as of 04/14. 04/14: received prolixin DEC 37.5 mg today. no change in presentation. 04/18: no change in presentation from last week. able to engage better with staff, yet struggling with AH, sometimes yelling out. 04/21: no RIS in the green observed the past two days by this parts data writer, which is an improvement. continue current mgmt. 04/22: no RIS observed past 3 days now, per staff some RIS last night. no outbursts. continue current mgmt. 04/25: no observed RIS by MD, no outbursts over w/e. still some RIS observed over w/e by staff. plan for next IM and discharge same day. 04/26: no report of RIS or outbursts. amenable to tuesday discharge. stable. 04/27: RIS/yelling last night. appears to have insight that AH are products of his mind. continue current mgmt and plan. 04/28: stable, no changes. 04/29: no RIS noted by staff in past 24H. discharged as per plan. Time Spent with Patient Time attestation: Total time managing care of this patient today ____ minutes. Time spent: Greater than 30 minutes Discharge Plan Discharge Anticipated Discharge Date/Time: 04/29/23 11:00 Patient Disposition: Home, Self-Care Discharge Diagnosis: Schizoaffective Disorder, Bipolar Type Referrals: Umer Parker (Therapy) [Other] - 05/04/23 11:00 am (IN OFFICE APPOINTMENT -Please arrive fifteen minutes early to your appointment in order to fill out necessary paperwork. ) Ijeoma Lawrence (Psychiatry) [Other] - 06/06/23 10:00 am (TELEHEALTH APPOINTMENT set up in the office -Psychiatric Evaluation ) Ijeoma Lawrence (Psychiatry) [Other] - 07/05/23 11:00 am (TELEHEALTH APPOINTMENT set up in the office -Medication Management ) Zeb Morgan ([facility]NA) Visiting Nurse [Other] - 1 Week (*The visiting nurse will be out to the home within 24-48 hours of your discharge from the hospital. ) Physician,Unknown J [Primary Care Provider] - 1 Week Discharge Medications: New chlorpromazine 100 mg Tablet 400 mg PO BEDTIME 30 Days Qty: 120 0RF lithium carbonate 300 mg Tablet Extended Release 300 mg PO DAILY 30 Days Qty: 30 0RF lithium carbonate 450 mg Tablet Extended Release 900 mg PO BEDTIME 30 Days Qty: 60 0RF lithium carbonate 450 mg Tablet Extended Release 450 mg PO DAILY 30 Days Qty: 30 0RF carbamazepine 200 mg Tablet 400 mg PO DAILY 30 Days Qty: 60 0RF fluphenazine decanoate 25 mg/mL Solution 37.5 mg IM Q14D@0900 Qty: 0 0RF carbamazepine 200 mg Tablet Extended Release 12 Hr 600 mg PO BEDTIME 30 Days Qty: 90 0RF benztropine 1 mg Tablet 1 mg PO BID 30 Days Qty: 60 0RF Discharge Orders: Discharge Order (Routine); Ordered 04/29/23 Ordered By: Miguel Pemberton Diet: Advance to usual diet Activity on Discharge: As tolerated Stand Alone Forms: Patient Portal Discharge page, Community Support Care Plan Goals: remain safe, stable, and sober in the outpatient treatment setting Health Concerns: none Plan of Treatment: take medications as prescribed, attend appointments as scheduled Assessment: not at imminent risk of harm to self or others
[2023-04-28] MEDS: fluPHENAZine decanoate 25 MG/ML 5 ML VIAL 37.5 MG IM (12:54)
[2023-04-28 20:00] VITALS: BP 122/71; PULSE 81; RESP 18; TEMP 37.2; O2SAT 97
[2023-04-28 20:21] LABS: MANUAL DIFF FLAG NO
[2023-04-28 20:23] LABS: Basophils Absolute Auto 0.1 X10*3/uL (0.0-0.2); Basophils Percent Auto 0.5 % (0-2); Eosinophils Absolute Auto 0.6 X10*3/uL (0.0-0.4); Hematocrit 40.5 % (42.0-52.0); Hemoglobin 13.8 g/dl (14.0-18.0); Imm Gran Abs Auto 0.08 X10*3/uL (0.00-0.03); Imm Gran Pct Auto 0.8 % (0.0-0.4); Lymphocytes Absolute Auto 1.9 X10*3/uL (1.2-4.9); Lymphocytes Percent Auto 19.1 % (20-40); Mean Corpuscular HGB Conc 34.1 g/dl (31.0-36.0); Mean Corpuscular Hemoglobin 30.7 pg (27.0-33.0); Mean Corpuscular Volume 90.2 fL (80.0-98.0); Mean Platelet Volume 10.6 fL (9.4-12.4); Monocytes Absolute Auto 0.8 X10*3/uL (0.1-1.2); Monocytes Percent Auto 7.8 % (2-11); Neutrophils Absolute Auto 6.6 x10*3/uL (2.0-8.3); Neutrophils Percent Auto 65.8 % (45-73); Platelet Count 183 X10*3/uL (160-400); Red Blood Count 4.49 X10*6/uL (4.60-5.80); Red Cell Distribution Width 11.7 % (11.0-16.0); White Blood Count 10.1 X10*3/uL (4.8-10.8)
[2023-04-28 20:34] LABS: Lithium 0.87 mmol/L (0.60-1.20)
[2023-04-28 20:42] LABS: Anion Gap 11 (12-20); Blood Urea Nitrogen 15 mg/dL (9-16); Calcium 10.1 mg/dL (8.4-10.2); Carbon Dioxide 30 mmol/L (22-29); Chloride 104 mmol/L (96-108); Creatinine Clr Calc Pharmacy 124.2; Estimated Glomerular Filt Rate > 60; Glucose Random 108 mg/dL (60-115); Sodium 141 mmol/L (135-145)
[2023-04-28 20:58] LABS: TSH reflex Free T4 3.02 uIU/mL (0.32-4.0)
[2023-04-28] MEDS: Acetaminophen 325 MG TABLET 650 MG PO (21:25)
[2023-04-28] MEDS: chlorproMAZINE HCl 100 MG TABLET 400 MG PO (21:26)
[2023-04-28] MEDS: Lithium Carbonate ER 450 MG TABLET.ER 900 MG PO (21:27)
[2023-04-28] MEDS: carBAMazepine ER 200 MG TAB.ER.12H 600 MG PO (21:27)
[2023-04-29 06:00] VITALS: BP 110/69; PULSE 81; RESP 16; TEMP 36.5; O2SAT 100
[2023-04-29] MEDS: Lithium Carbonate ER 450 MG TABLET.ER PO (08:15)
[2023-04-29] MEDS: Lithium Carbonate ER 300 MG TABLET.ER PO (08:15)
[2023-04-29] MEDS: carBAMazepine 200 MG TABLET 400 MG PO (08:16)
[2023-04-29] MEDS: Benztropine Mesylate 1 MG TABLET PO (08:16)
== END 2023-04-29 11:10 | disposition home or self-care (01) | DRG 885 ==
LOC: HO.ED 12-23 12:13 → HO.PADLT16 12-23 22:18
PROVIDERS: Physician Assistant Medical; Registered Nurse; Admitting Provider Psychiatry & Neurology Psychiatry; Emergency Provider Emergency Medicine; Visit Provider Psychiatry & Neurology Psychiatry
DX: F25.0 Schizoaffective disorder, bipolar type (principal); F14.13 Cocaine abuse, unspecified with withdrawal; F11.93 Opioid use, unspecified with withdrawal; E87.1 Hypo-osmolality and hyponatremia; R94.31 Abnormal electrocardiogram [ECG] [EKG]; F17.210 Nicotine dependence, cigarettes, uncomplicated; Z71.6 Tobacco abuse counseling; Z20.822 Contact with and (suspected) exposure to COVID-19; Z91.52 Personal history of nonsuicidal self-harm; Z79.899 Other long term (current) drug therapy
CPT/HCPCS: 36415; 80048; 80051; 80053; 80061; 80076; 80143; 80156; 80178; 80179; 80307; 81003; 82565; 83036; 84439; 84443; 84520; 85025; 87635; 93005; 93306; 99283; 99285; J1200; J2060; J2680; J3230; S9485

== ENCOUNTER 2022-12-23 22:13 | Outpatient (BNV) | payer MEDICARE, MEDICAID, SELFPAY | END 2023-02-02 07:00 | PROVIDERS: Admitting Provider Psychiatry & Neurology Psychiatry; Emergency Provider Emergency Medicine; Visit Provider Internal Medicine Cardiovascular Disease | DX: R94.31 Abnormal electrocardiogram [ECG] [EKG] (principal) | CPT/HCPCS: 93306 ==

== ENCOUNTER → 2022-12-23 22:13 | Outpatient (BNV) | payer MEDICARE, MEDICAID, SELFPAY | PROVIDERS: Admitting Provider Psychiatry & Neurology Psychiatry; Emergency Provider Emergency Medicine; Visit Provider Psychiatry & Neurology Psychiatry | DX: F25.0 Schizoaffective disorder, bipolar type (principal); F14.10 Cocaine abuse, uncomplicated; F11.90 Opioid use, unspecified, uncomplicated; R94.31 Abnormal electrocardiogram [ECG] [EKG] | CPT/HCPCS: 99231 ==

== ENCOUNTER → 2022-12-23 22:13 | Outpatient (BNV) | payer MEDICARE, MEDICAID, SELFPAY | PROVIDERS: Admitting Provider Psychiatry & Neurology Psychiatry; Emergency Provider Emergency Medicine; Visit Provider Internal Medicine Cardiovascular Disease | DX: R94.31 Abnormal electrocardiogram [ECG] [EKG] (principal) | CPT/HCPCS: 99222 ==

== ENCOUNTER → 2022-12-23 22:13 | Outpatient (BNV) | payer MEDICARE, MEDICAID, SELFPAY | PROVIDERS: Admitting Provider Psychiatry & Neurology Psychiatry; Emergency Provider Emergency Medicine; Visit Provider Psychiatry & Neurology Psychiatry | DX: F25.0 Schizoaffective disorder, bipolar type (principal); F14.10 Cocaine abuse, uncomplicated; F11.90 Opioid use, unspecified, uncomplicated; R94.31 Abnormal electrocardiogram [ECG] [EKG] | CPT/HCPCS: 90792; 99231; 99232; 99233; 99239 ==

== ENCOUNTER 2023-05-09 21:18 | Emergency (ER) | payer MEDICARE, MEDICAID, SELFPAY ==
[2023-05-09 21:23] VITALS: BP 142/86; PULSE 97; O2SAT 97
--- NOTE | 2023-05-09 21:24 | ED.OVERDOSE ---
HPI - Overdose General Chief Complaint: Overdose Stated Complaint: HEROINE USE,12 MG NARCAN GIVEN Time Seen by Provider: 05/09/23 21:19 Source: patient and EMS Mode of arrival: EMS Limitations: no limitations History of Present Illness HPI Narrative: 28-year-old male with history of schizophrenia, opiate use disorder who states that he snorted 1 bag of heroin. The patient was found unresponsive. He was given 12 mg of intranasal Narcan by the 1st responders and woke up. In the emergency department patient appears to be withdrawing from opiates, he has skin piloerection, agitation , nausea and vomiting. The patient states that he uses 1 bag of heroin per day. He also admits to drinking alcohol this evening. He denies any other drug use. Related Data Allergies Allergy/AdvReac Type Severity Reaction Status Date / Time No Known Allergies Allergy Verified 05/09/23 21:24 Review of Systems Review of Systems: Yes all other systems are reviewed and are negative PMFSH Past Medical History [facility] Narrative: Past medical history: Opiate use disorder, schizophrenia. Social history: Patient uses 1 bag of intranasal heroin daily, he does drink alcohol, he denies other drug use Onset Date is defined in the Problem List Problems that require an onset date and time if occurred within 24 hrs of arrival to the ED Aortic Dissection and Rupture; Neurologic impairment; Cardiopulmonary Arrest; Endotracheal Intubation; Insertion or Replacement of Mechanical Circulatory Assist Device Social History Social History Unable to assess alcohol history related to: Unknown Use of substances other than those prescribed or required for medical reasons: Yes Substance Use Type: Crack/Cocaine and Heroin Substance Use Frequency: Daily Advance Directives: No Advance Directives Information Provided: No Physical Exam Vital Signs: Vital Signs: Last Vital Signs Temp 97.6 F 05/10/23 00:06 Pulse 75 05/10/23 00:06 Resp 15 05/10/23 04:20 BP 122/74 05/10/23 00:06 Pulse Ox 97 05/10/23 00:06 O2 Del Method Room Air 05/10/23 00:06 BMI result Body Mass Index 30.0 Exam: General: Agitated, refused to stay on stretcher cough, actively vomiting Head: Normocephalic, atraumatic EENT: PERRL, Lids normal, sclera normal, conjunctiva normal, nose normal , ears normal, throat without erythema or exudates Neck: Supple, no adenopathy, no trachea midline or C-spine tenderness Lung: breath sounds symmetric, no wheezing, rales or rhonchi Chest: symmetric movement, nontender Heart: regular rate and rhythm, normal S1, S2 no murmurs or rubs Abdomen: soft, non-tender, nondistended, normal bowel sounds Back: no vertebral tenderness, no CVAT Extremities: no deformities, moves all extremities symmetrically Neuro: Alert, oriented to person, agitated, normal speech, cranial nerves intact, moves all extremities symmetrically Medications Administered Discontinued Medications Generic Name Dose Route Start Last Admin Trade Name Freq PRN Reason Stop Dose Admin Diphenhydramine HCl 50 mg 05/09/23 21:30 05/09/23 21:50 Diphenhydramine Hcl 50 Mg/Ml Vial IVPUSH 05/09/23 21:31 50 mg ONCE STA Administration Sodium Chloride 1,000 mls @ 999 mls/hr 05/09/23 21:38 05/09/23 23:04 Ns IV 05/09/23 22:38 Infused .Q1H1M STA Infusion Ketorolac Tromethamine 15 mg 05/09/23 21:30 05/09/23 21:50 Ketorolac Tromethamine 15 Mg/Ml Vial IVPUSH 05/09/23 21:31 15 mg ONCE STA Administration Lorazepam 1 mg 05/09/23 21:30 05/09/23 21:50 Lorazepam 2 Mg/Ml Vial IVPUSH 05/09/23 21:31 1 mg STAT STA Administration Metoclopramide HCl 10 mg 05/09/23 21:30 05/09/23 21:50 Metoclopramide Hcl 10 Mg/2 Ml Vial IVPUSH 05/09/23 21:31 10 mg ONCE STA Administration Medical Decision Making Medical Decision Making [facility] Narrative: 28-year-old male patient with a history of schizophrenia and opiate use disorder presents emergency department for evaluation of unintentional opiate overdose. Patient states that he used 1 bag of intranasal heroin, he was found unresponsive in treated with 12 mg of intranasal Narcan by 1st responders. Patient currently is withdrawing from opiates and is actively vomiting. Exam was otherwise unremarkable. I ordered the following: CBC, CMP, CK, urine drug screen, ethanol level, lipase. Patient was treated with Benadryl 50 mg IV, regular and 10 mg IV, Ativan 1 mg IV and Toradol 15 mg IV. Patient was also given 1 L of normal saline IV 07:42 my interpretation patient's laboratory evaluation is as follows: CBC was normal. CMP revealed an elevated glucose of 210. CK was elevated 628. Patient is awake and alert and does not remember the events that occurred prior to coming to emergency department. Patient told me they has overdosed from using illicit drugs in the past. He is not willing at this time to stay and talk to our care team on a once IV the discharge. Otherwise I did tell me if he continues to use street drugs you will eventually documented heroin or fentanyl overdose. I will discharge the patient with an can not come down in intranasal Narcan rescue pack. Differential Diagnosis Differential Diagnoses: The differential diagnosis associated with the presentation includes Differential diagnosis includes was not limited to opiate overdose, fentanyl overdose, alcohol intoxication, electrolyte abnormalities, anemia Admission/Observation Consideration of admission/observation: Escalation of care including admission/observation considered Lab Data MDM Lab Attestation statement: I reviewed the patient's lab results. 05/09/23 21:38 05/09/23 21:38 Labs: Lab Results 05/09/23 05/09/23 Range/Units 21:38 21:49 WBC 10.9 H (4.8-10.8) X10*3/uL RBC 4.21 L (4.60-5.80) X10*6/uL Hgb 12.9 L (14.0-18.0) g/dl Hct 39.3 L (42.0-52.0) % MCV 93.3 (80.0-98.0) fL MCH 30.6 (27.0-33.0) pg MCHC 32.8 (31.0-36.0) g/dl RDW 11.8 (11.0-16.0) % Plt Count 260 (160-400) X10*3/uL MPV 10.3 (9.4-12.4) fL Immature Gran % (Auto) 0.4 (0.0-0.4) % Neut % (Auto) 62.6 (45-73) % Lymph % (Auto) 26.1 (20-40) % [place] % (Auto) 7.7 (2-11) % Eos % (Auto) 2.7 (0-4) % Baso % (Auto) 0.5 (0-2) % Lymph # (Auto) 2.9 (1.2-4.9) X10*3/uL [place] # (Auto) 0.8 (0.1-1.2) X10*3/uL Eos # (Auto) 0.3 (0.0-0.4) X10*3/uL Baso # (Auto) 0.1 (0.0-0.2) X10*3/uL Abs Immat Gran (auto) 0.04 H (0.00-0.03) X10*3/uL Absolute Neuts (auto) 6.8 (2.0-8.3) x10*3/uL Absolute Nucleated RBC 0.000 (0.0-0.012) X10*3/uL Nucleated RBC % (auto) 0.0 (0.0-0.2) /100WBC Sodium 142 (135-145) mmol/L Potassium 3.4 (3.3-5.1) mmol/L Chloride 106 (96-108) mmol/L Carbon Dioxide 26 (22-29) mmol/L Anion Gap 13 (12-20) BUN 14 (9-16) mg/dL Creatinine 1.07 (0.5-1.4) mg/dL Estim Creat Clear Calc 122.3 Estimated GFR > 60 Random Glucose 210 H (60-115) mg/dL Calcium 9.0 (8.4-10.2) mg/dL Total Bilirubin 0.2 (0.0-1.0) mg/dL AST 32 (5-37) U/L ALT 32 (0-40) U/L Alkaline Phosphatase 72 (39-117) U/L Total Creatine Kinase 628 H (38-174) U/L Total Protein 7.0 (6.5-8.0) g/dL Albumin 4.5 (3.5-5.0) g/dL Lipase 17 (8-78) U/L Urine Opiates Screen POSITIVE H (Not Detect) Urine Fentanyl Screen POSITIVE H (Not Detect) Ur Barbiturates Screen Not Detected (Not Detect) Ur Phencyclidine Scrn Not Detected (Not Detect) Ur Amphetamines Screen Not Detected (Not Detect) U Benzodiazepines Scrn Not Detected (Not Detect) Urine Cocaine Screen POSITIVE H (Not Detect) U Marijuana (THC) Screen Not Detected (Not Detect) Ethyl Alcohol < 10 mg/dL Discharge Plan Discharge Clinical Impression: Drug overdose Patient Disposition: Home, Self-Care Additional Instructions: According to the EMS ambulance providers, your found unresponsive and the police gave you 2 doses of intranasal Narcan in you woke up. When you got here, you were agitated and we gave you some IV medications to calm you down. I offered to have you to be evaluated by our care team to try to get you help with your drug use disorder however he refused. If you change your mind and you want to get some help, return to the emergency department and we can help you. Your are being discharged home with intranasal Narcan. If you are going to continue to use heroin, you should make sure that there is a sober person with you that is not using drugs and that this person can administer intranasal Narcan in the event that you stop breathing. Follow-up with your doctor in 2 days. Please return to the emergency department if your symptoms get worse or if you develop any symptoms that are concerning to you. Your blood work was normal. Your urine tox screen was positive for fentanyl, heroin and cocaine
--- NOTE | 2023-05-09 21:34 | ECG_ITS ---
Test Reason : overdose Blood Pressure : / mmHG Vent. Rate : 088 BPM Atrial Rate : 088 BPM P-R Int : 158 ms QRS Dur : 092 ms QT Int : 390 ms P-R-T Axes : 056 069 035 degrees QTc Int : 471 ms Normal sinus rhythm Normal ECG No previous ECGs available Referred By: Tyree Goff Electronically Signed By:Saji Parham
[2023-05-09 21:42] LABS: MANUAL DIFF FLAG NO
[2023-05-09 21:43] VITALS: BP 136/81; PULSE 87; RESP 16; TEMP 36.9; O2SAT 97
[2023-05-09] MEDS: 0.9 % Sodium Chloride 1,000 ML 999 ML IV (21:50)
[2023-05-09] MEDS: Ketorolac Tromethamine 15 MG/ML VIAL IVPUSH (21:50)
[2023-05-09] MEDS: Metoclopramide HCl 10 MG/2 ML VIAL IVPUSH (21:50)
[2023-05-09] MEDS: LORazepam 2 MG/ML VIAL 1 MG IVPUSH (21:50)
[2023-05-09] MEDS: diphenhydrAMINE HCL 50 MG/ML VIAL IVPUSH (21:50)
[2023-05-09 21:57] LABS: Basophils Absolute Auto 0.1 X10*3/uL (0.0-0.2); Basophils Percent Auto 0.5 % (0-2); Eosinophils Absolute Auto 0.3 X10*3/uL (0.0-0.4); Eosinophils Percent Auto 2.7 % (0-4); Hematocrit 39.3 % (42.0-52.0); Hemoglobin 12.9 g/dl (14.0-18.0); Imm Gran Abs Auto 0.04 X10*3/uL (0.00-0.03); Imm Gran Pct Auto 0.4 % (0.0-0.4); Lymphocytes Absolute Auto 2.9 X10*3/uL (1.2-4.9); Lymphocytes Percent Auto 26.1 % (20-40); Mean Corpuscular HGB Conc 32.8 g/dl (31.0-36.0); Mean Corpuscular Hemoglobin 30.6 pg (27.0-33.0); Mean Corpuscular Volume 93.3 fL (80.0-98.0); Mean Platelet Volume 10.3 fL (9.4-12.4); Monocytes Absolute Auto 0.8 X10*3/uL (0.1-1.2); Monocytes Percent Auto 7.7 % (2-11); Neutrophils Absolute Auto 6.8 x10*3/uL (2.0-8.3); Neutrophils Percent Auto 62.6 % (45-73); Platelet Count 260 X10*3/uL (160-400); Red Blood Count 4.21 X10*6/uL (4.60-5.80); Red Cell Distribution Width 11.8 % (11.0-16.0); White Blood Count 10.9 X10*3/uL (4.8-10.8)
[2023-05-09 22:02] LABS: Alanine Aminotransferase 32 U/L (0-40); Albumin Level 4.5 g/dL (3.5-5.0); Alkaline Phosphatase 72 U/L (39-117); Anion Gap 13 (12-20); Aspartate Amino Transferase 32 U/L (5-37); Bilirubin Total 0.2 mg/dL (0.0-1.0); Blood Urea Nitrogen 14 mg/dL (9-16); Carbon Dioxide 26 mmol/L (22-29); Chloride 106 mmol/L (96-108); Creatinine Clr Calc Pharmacy 122.3; Estimated Glomerular Filt Rate > 60; Ethanol < 10 mg/dL; Glucose Random 210 mg/dL (60-115); Lipase 17 U/L (8-78); Potassium 3.4 mmol/L (3.3-5.1); Sodium 142 mmol/L (135-145)
[2023-05-09 22:06] LABS: Amphetamine Screen Urine Not Detected (Not Detect); Barbiturates, Urine Not Detected (Not Detect); Benzodiazepines Screen Urine Not Detected (Not Detect); Cannabinoid Screen Urine Not Detected (Not Detect); Cocaine Screen Urine POSITIVE (Not Detect); Fentanyl, urine POSITIVE (Not Detect); Opiate Screen Urine POSITIVE (Not Detect); Phencyclidine Screen Urine Not Detected (Not Detect)
[2023-05-10 00:06] VITALS: BP 122/74; PULSE 75; RESP 13; TEMP 36.4; O2SAT 97
--- NOTE | 2023-05-10 01:25 | PC.NURSE ---
pt asleep comfortably on stretcher respirations even and unlabored. NSR on court recording monitor. call menchaca within reach will plan of care ongoing
--- NOTE | 2023-05-10 03:21 | PC.NURSE ---
pt requested and given bharat mario
[2023-05-10 04:20] VITALS: RESP 15
[2023-05-10 07:58] VITALS: BP 128/85; PULSE 71; RESP 16; O2SAT 97
[2023-05-10] MEDS: Naloxone HCl Nasal TAKE HOME 4 MG SPRAY 8 MG NOSTRILALT (08:04)
== END 2023-05-10 08:00 | disposition home or self-care (01) ==
PROVIDERS: Emergency Provider Emergency Medicine Emergency Medical Services
DX: T40.1X1A Poisoning by heroin, accidental (unintentional), initial encounter (principal); R11.2 Nausea with vomiting, unspecified; Y92.9 Unspecified place or not applicable; R45.1 Restlessness and agitation; F20.9 Schizophrenia, unspecified
CPT/HCPCS: 36415; 80053; 80307; 82550; 83690; 85025; 93005; 96361; 96374; 96375; 99285; J1200; J1885; J2060; J2765

== ENCOUNTER → 2023-05-09 21:34 | Outpatient (BNV) | payer MEDICARE, MEDICAID, SELFPAY | PROVIDERS: Emergency Provider Emergency Medicine Emergency Medical Services; Visit Provider Internal Medicine Cardiovascular Disease | DX: F11.13 Opioid abuse with withdrawal (principal) | CPT/HCPCS: 93010 ==

== ENCOUNTER 2023-05-19 16:08 | Emergency (ER) | payer MEDICARE, MEDICAID, SELFPAY ==
[2023-05-19 16:24] VITALS: BP 134/84; BP 145/70; PULSE 75; RESP 16; TEMP 36.5; O2SAT 97; BMI 26.7
--- NOTE | 2023-05-19 16:42 | ED_ITS ---
HPI - Overdose General Chief Complaint: Overdose Stated Complaint: OVERDOSE Time Seen by Provider: 05/19/23 16:26 Source: patient and EMS Mode of arrival: EMS History of Present Illness HPI Narrative: This is a 27-year-old male with a history of schizophrenia and states that he wanted to get high and so smoked crack cocaine today. He denies SI HI and declines detox at this time and wants to leave. Patient received 4 mg of Narcan. Related Data Previous Rx's Medication Instructions Recorded benztropine 1 mg tablet 1 mg PO BID 30 days #60 tabs 04/28/23 carbamazepine 200 mg tablet 400 mg (2 x 200 mg) PO DAILY 30 04/28/23 days #60 tabs carbamazepine 200 mg 600 mg (3 x 200 mg) PO BEDTIME 30 04/28/23 tablet,extended release,12 hr days #90 tabs chlorpromazine 100 mg tablet 400 mg (4 x 100 mg) PO BEDTIME 30 04/28/23 days #120 tabs fluphenazine decanoate 25 mg/mL 37.5 mg (1.5 mL) IM Q14D@0900 #0 mL 04/28/23 injection solution lithium carbonate 300 mg 300 mg PO DAILY 30 days #30 tabs 04/28/23 tablet,extended release lithium carbonate 450 mg 450 mg PO DAILY 30 days #30 tabs 04/28/23 tablet,extended release lithium carbonate 450 mg 900 mg (2 x 450 mg) PO BEDTIME 30 04/28/23 tablet,extended release days #60 tabs Allergies Allergy/AdvReac Type Severity Reaction Status Date / Time morphine [MORPHINE] AdvReac Unknown NAUSEA Verified 12/10/22 19:56 Review of Systems Review of Systems: Pertinent positives and negatives as stated in the HPI [facility] Past Medical History Source: nursing notes reviewed Onset Date is defined in the Problem List Problems that require an onset date and time if occurred within 24 hrs of arrival to the ED Aortic Dissection and Rupture; Neurologic impairment; Cardiopulmonary Arrest; Endotracheal Intubation; Insertion or Replacement of Mechanical Circulatory Assist Device Medical History Nonspecific ST-T wave electrocardiographic changes Accidental overdose Opioid use disorder Polysubstance (including opioids) dependence, daily use PCP abuse PTSD (post-traumatic stress disorder) Schizoaffective disorder, bipolar type Cocaine use disorder Suicidal behavior Depression Anxiety Schizophrenia Bipolar affective Schizophrenia Social History Social History Household Members: None Housing: Homeless Do you presently have visiting nurse or other home services: No Alcohol intake: current Alcohol intake frequency: 0-2 drinks per day Alcohol type: hard liquor Comment: currently asleep Patient Tobacco Use Status: Never used Tobacco Cigarette Packs Per Day: 0.25 Cigarettes Per Day: 5.0 Years Smoked: 10 Smoked in Last 30 Days: Yes e-Cigarette/Vaping Use: Never Used Second Hand Smoke Exposure: No Use of substances other than those prescribed or required for medical reasons: Yes Substance Use Type: Crack/Cocaine Last Used Substance: Just Prior to Admission Advance Directives: No Advance Directives Information Provided: Yes service: No Sexual orientation: Don't Know Physical Exam Vital Signs: Vital Signs: Last Vital Signs Temp 97.7 F 05/19/23 16:24 Pulse 75 05/19/23 16:24 Resp 16 05/19/23 16:24 BP 134/84 05/19/23 16:24 Pulse Ox 97 05/19/23 16:24 O2 Del Method Room Air 05/19/23 16:24 BMI result Body Mass Index 26.7 VITAL SIGNS: Reviewed. GENERAL: Well developed, well nourished, in no acute distress. HEAD: Normocephalic/atraumatic EYES: PERRLA, EOMI LUNGS: Normal breath sounds. No adventitious sounds or accessory muscle use. SpO2<97> CARDIOVASCULAR: Regular rate and rhythm without noted murmurs ABDOMEN: Soft, non-tender, non-distended with bowel sounds. MUSCULOSKELETAL: No tenderness, deformities, or effusions noted on gross inspection. EXTREMITIES: No cyanosis, clubbing or edema. SKIN: Inspection of the skin reveals no rashes NEUROLOGIC: Alert and oriented x 4. Strength and sensation to light touch were grossly intact x 4. Medical Decision Making Medical Decision Making MDM Narrative: 27-year-old male with history and clinical presentation of overdose likely a combination of crack and fentanyl received 4 mg of Narcan does not appear to have required any respiratory support and is noted be calm and cooperative here. Patient denies any SI/HI and adamantly declines any detox. He understands that he will be observed for 2 hours. Patient has been cooperative throughout his observation and is hemodynamically stable for discharge to home with home Narcan. Continues to deny SI/HI as well as detox services. Differential Diagnosis Differential Diagnoses: The differential diagnosis associated with the presentation includes Please see the discussion above Admission/Observation Consideration of admission/observation: Escalation of care including admi ssion/observation considered Please see the discussion above Lab Data MDM Lab Attestation statement: I reviewed the patient's lab results. Please see the discussion above Labs: Lab Results 05/19/23 Range/Units 18:00 Urine Opiates Screen POSITIVE H (Not Detect) Urine Fentanyl Screen POSITIVE H (Not Detect) Ur Barbiturates Screen Not Detected (Not Detect) Ur Phencyclidine Scrn Not Detected (Not Detect) Ur Amphetamines Screen Not Detected (Not Detect) U Benzodiazepines Scrn Not Detected (Not Detect) Urine Cocaine Screen POSITIVE H (Not Detect) U Marijuana (THC) Screen Not Detected (Not Detect) Discharge Plan Discharge Clinical Impression: Drug overdose, Polysubstance abuse Patient Disposition: Home, Self-Care Instructions: Adult Overdose (ED), Polysubstance Abuse (ED) Additional Instructions: Stop taking drugs, if you change your mind regarding detox please return to the emergency room. Prescriptions: No Action chlorpromazine 100 mg Tablet 400 mg PO BEDTIME 30 Days Qty: 120 0RF lithium carbonate 300 mg Tablet Extended Release 300 mg PO DAILY 30 Days Qty: 30 0RF lithium carbonate 450 mg Tablet Extended Release 900 mg PO BEDTIME 30 Days Qty: 60 0RF lithium carbonate 450 mg Tablet Extended Release 450 mg PO DAILY 30 Days Qty: 30 0RF carbamazepine 200 mg Tablet 400 mg PO DAILY 30 Days Qty: 60 0RF fluphenazine decanoate 25 mg/mL Solution 37.5 mg IM Q14D@0900 Qty: 0 0RF carbamazepine 200 mg Tablet Extended Release 12 Hr 600 mg PO BEDTIME 30 Days Qty: 90 0RF benztropine 1 mg Tablet 1 mg PO BID 30 Days Qty: 60 0RF
--- NOTE | 2023-05-19 17:22 | PC.NURSE ---
pt brought in by [employer] and EMS, handcuffed to stretcher after pt uncooperative after accidental overdose. pt given 4mg [place] narcan by bystander after pt found lying in alley with lips turning blue. pt came to and started fighting with EMS/PD, refusing to get in ambulance. pt refused vital signs in ambulance. pt compliant with care when arrived to ED. changed over to hospital attire with security, belongings in decon. vital signs taken and pt compliant with answering questions. pt currently resting quietly on stretcher, sleeping. rr even/unlabored. call [place] within reach. plan of care ongoing.
[2023-05-19 18:18] LABS: Amphetamine Screen Urine Not Detected (Not Detect); Barbiturates, Urine Not Detected (Not Detect); Benzodiazepines Screen Urine Not Detected (Not Detect); Cannabinoid Screen Urine Not Detected (Not Detect); Cocaine Screen Urine POSITIVE (Not Detect); Fentanyl, urine POSITIVE (Not Detect); Opiate Screen Urine POSITIVE (Not Detect); Phencyclidine Screen Urine Not Detected (Not Detect)
[2023-05-19] MEDS: Naloxone HCl Nasal TAKE HOME 4 MG SPRAY 8 MG NOSTRILALT (18:45)
--- NOTE | 2023-05-19 18:48 | PC.NURSE ---
pt given cup of coffee, remains calm and cooperative. pt given narcan to take home. no narcan administered in ED.
== END 2023-05-19 18:49 | disposition home or self-care (01) ==
PROVIDERS: Emergency Provider Student in an Organized Health Care Education/Training Program
DX: T50.911A Poisoning by multiple unspecified drugs, medicaments and biological substances, accidental (unintentional), initial encounter (principal); F19.10 Other psychoactive substance abuse, uncomplicated; Y92.9 Unspecified place or not applicable
CPT/HCPCS: 80307; 99284

== ENCOUNTER 2023-08-30 21:05 | Emergency (ER) | payer MEDICARE, MEDICAID, SELFPAY ==
[2023-08-30 21:08] VITALS: BP 132/77; BP 134/90; PULSE 85; PULSE 95; RESP 18; TEMP 36.9; O2SAT 98; BMI 27.2
--- NOTE | 2023-08-30 21:43 | ED_ITS ---
HPI - Overdose General Chief Complaint: Overdose Stated Complaint: Overdose, narcan given by PD Time Seen by Provider: 08/30/23 21:08 Source: patient Mode of arrival: EMS History of Present Illness HPI Narrative: 28-year-old male with history of schizophrenia and substance use disorder who presents via EMS after reported accidental overdose, he denies SI/HI and states that he bought his stuff from a new person. He is declining detox at this time. Related Data Previous Rx's ?Medication ?Instructions ?Recorded benztropine 1 mg tablet 1 mg PO BID 30 days #60 tabs 04/28/23 carbamazepine 200 mg tablet 400 mg (2 x 200 mg) PO DAILY 30 04/28/23 days #60 tabs carbamazepine 200 mg 600 mg (3 x 200 mg) PO BEDTIME 30 04/28/23 tablet,extended release,12 hr days #90 tabs chlorpromazine 100 mg tablet 400 mg (4 x 100 mg) PO BEDTIME 30 04/28/23 days #120 tabs fluphenazine decanoate 25 mg/mL 37.5 mg (1.5 mL) IM Q14D@0900 #0 mL 04/28/23 injection solution lithium carbonate 300 mg 300 mg PO DAILY 30 days #30 tabs 04/28/23 tablet,extended release lithium carbonate 450 mg 450 mg PO DAILY 30 days #30 tabs 04/28/23 tablet,extended release lithium carbonate 450 mg 900 mg (2 x 450 mg) PO BEDTIME 30 04/28/23 tablet,extended release days #60 tabs Allergies Allergy/AdvReac Type Severity Reaction Status Date / Time morphine [MORPHINE] AdvReac Unknown NAUSEA Verified 08/30/23 21:10 Review of Systems Review of Systems: Pertinent positives and negatives as stated in HPI [facility] Past Medical History Source: nursing notes reviewed Medical History Nonspecific ST-T wave electrocardiographic changes Accidental overdose Opioid use disorder Polysubstance (including opioids) dependence, daily use PCP abuse PTSD (post-traumatic stress disorder) Schizoaffective disorder, bipolar type Cocaine use disorder Suicidal behavior Depression Anxiety Schizophrenia Bipolar affective Schizophrenia Social History Social History Household Members: None Housing: Homeless Do you presently have visiting nurse or other home services: No Alcohol intake: current Alcohol intake frequency: does not drink Alcohol type: hard liquor Comment: currently asleep Patient Tobacco Use Status: Never used Tobacco Cigarette Packs Per Day: 0.25 Cigarettes Per Day: 5.0 Years Smoked: 10 Smoked in Last 30 Days: Yes e-Cigarette/Vaping Use: Never Used Second Hand Smoke Exposure: No Use of substances other than those prescribed or required for medical reasons: Yes Substance Use Type: Heroin Advance Directives: No Advance Directives Information Provided: No Do you have a plan to hurt others: No Plan service: No Sexual orientation: Don't Know Physical Exam Vital Signs: Vital Signs: Last Vital Signs Temp 98.5 F 08/30/23 21:08 Pulse 85 08/30/23 21:08 Resp 18 08/30/23 21:08 BP 132/77 08/30/23 21:08 Pulse Ox 98 08/30/23 21:08 O2 Del Method Room Air 08/30/23 21:08 BMI result Body Mass Index 27.2 VITAL SIGNS: Reviewed. GENERAL: Well developed, well nourished, in no acute distress. HEAD: Normocephalic/small superficial abrasion to the medial aspect of the right eyebrow that is hemostatic EYES: PERRLA, EOMI EARS: Ext canals without abnormality NOSE: Nares patent bilateral OROPHARYNX: no oral lesions noted, posterior pharynx clear NECK: Supple, no adenopathy LUNGS: Normal breath sounds. No adventitious sounds or accessory muscle use. SpO2<98> CARDIOVASCULAR: Regular rate and rhythm without noted murmurs ABDOMEN: Soft, non-tender, non-distended with bowel sounds. MUSCULOSKELETAL: No tenderness, deformities, or effusions noted on gross inspection. EXTREMITIES: No cyanosis, clubbing or edema. SKIN: Inspection of the skin reveals no rashes NEUROLOGIC: Alert and oriented x 4. Strength and sensation to light touch were grossly intact x 4. Medical Decision Making Medical Decision Making MDM Narrative: 28-year-old male with history and clinical presentation of accidental overdose, received 4 mg of Narcan, is awake and alert and oxygenating well on room air. Patient will be observed for 2 hours and then discharged as he is declining detox at this time. He will be discharged on home Narcan. Differential Diagnosis Differential Diagnoses: The differential diagnosis associated with the presentation includes Please see the discussion Admission/Observation Consideration of admission/observation: Escalation of care including a dmission/observation considered Please see the discussion above External Record Review External record reviewed: Outpatient record and Prior outpatient labs Social Determinants Patient?s care significantly limited by Social Determinants of Health including: Alcoholism and drug addiction in family Critical Care Time Critical Care Time Critical Care Time: Yes Total Critical Care Time: 30 Attestation: I personally attest to this time spent taking care of the patient. Discharge Plan Discharge Clinical Impression: Accidental overdose, Substance use disorder Patient Disposition: Home, Self-Care Instructions: Adult Overdose (ED) Additional Instructions: Please return to the ER for any worsening symptoms. Prescriptions: No Action chlorpromazine 100 mg Tablet 400 mg PO BEDTIME 30 Days Qty: 120 0RF lithium carbonate 300 mg Tablet Extended Release 300 mg PO DAILY 30 Days Qty: 30 0RF lithium carbonate 450 mg Tablet Extended Release 900 mg PO BEDTIME 30 Days Qty: 60 0RF lithium carbonate 450 mg Tablet Extended Release 450 mg PO DAILY 30 Days Qty: 30 0RF carbamazepine 200 mg Tablet 400 mg PO DAILY 30 Days Qty: 60 0RF fluphenazine decanoate 25 mg/mL Solution 37.5 mg IM Q14D@0900 Qty: 0 0RF carbamazepine 200 mg Tablet Extended Release 12 Hr 600 mg PO BEDTIME 30 Days Qty: 90 0RF benztropine 1 mg Tablet 1 mg PO BID 30 Days Qty: 60 0RF Print Language: [place]
[2023-08-30 23:34] VITALS: BP 111/63; PULSE 89; RESP 16; TEMP 37.1; O2SAT 98
[2023-08-30 23:35] VITALS: BP 111/63; PULSE 89; RESP 16; TEMP 37.1; O2SAT 98
[2023-08-30] MEDS: Naloxone HCl Nasal TAKE HOME 4 MG SPRAY 8 MG NOSTRILALT (23:35)
== END 2023-08-30 23:36 | disposition home or self-care (01) ==
PROVIDERS: Emergency Provider Student in an Organized Health Care Education/Training Program
DX: T40.1X1A Poisoning by heroin, accidental (unintentional), initial encounter (principal); F19.20 Other psychoactive substance dependence, uncomplicated; Y92.9 Unspecified place or not applicable; F11.20 Opioid dependence, uncomplicated; Z79.899 Other long term (current) drug therapy
CPT/HCPCS: 99284

== ENCOUNTER 2024-05-20 22:24 | Emergency (ER) | payer MEDICARE, MEDICAID, SELFPAY ==
[2024-05-20 22:26] VITALS: BP 137/89; PULSE 81; O2SAT 93; BMI 25.8
--- NOTE | 2024-05-20 22:52 | ED.OVERDOSE ---
HPI - Overdose General Chief Complaint: Overdose Stated Complaint: SUBSTANCE USE, 95-96% ON 2LNC Time Seen by Provider: 05/20/24 22:48 Source: patient and EMS Mode of arrival: EMS Limitations: no limitations History of Present Illness ED Provider: Dr. Jazmin Marks HPI Narrative: patient comes to emergency room by ambulance. Seems that patient was in the street using heroin and cocaine, PD spot at him and brought him to the emergency room. Patient came, cooperative. Admits to using drugs. Patient states that he is not SI or HI. patient states that he did not want to get into a fight with PD, therefore, so he came voluntarily. Patient states that he has no intention of hurting himself or hurting others. Patient states that he is not interested in detox. Patient did not receive Narcan, patient was not unconscious at any time Today. Related Data Previous Rx's ?Medication ?Instructions ?Recorded benztropine 1 mg tablet 1 mg PO BID 30 days #60 tabs 04/28/23 carbamazepine 200 mg tablet 400 mg (2 x 200 mg) PO DAILY 30 04/28/23 days #60 tabs carbamazepine 200 mg 600 mg (3 x 200 mg) PO BEDTIME 30 04/28/23 tablet,extended release,12 hr days #90 tabs chlorpromazine 100 mg tablet 400 mg (4 x 100 mg) PO BEDTIME 30 04/28/23 days #120 tabs fluphenazine decanoate 25 mg/mL 37.5 mg (1.5 mL) IM Q14D@0900 #0 mL 04/28/23 injection solution lithium carbonate 300 mg 300 mg PO DAILY 30 days #30 tabs 04/28/23 tablet,extended release lithium carbonate 450 mg 450 mg PO DAILY 30 days #30 tabs 04/28/23 tablet,extended release lithium carbonate 450 mg 900 mg (2 x 450 mg) PO BEDTIME 30 04/28/23 tablet,extended release days #60 tabs Allergies Allergy/AdvReac Type Severity Reaction Status Date / Time morphine [MORPHINE] AdvReac Unknown NAUSEA Verified 05/20/24 22:29 Review of Systems Review of Systems: Constitutional : No Weight loss, No Fever, No Chills, No Night Sweats, No Fatigue, No Malaise ENT/Mouth : No Hearing loss, No Ear Pain, No Nasal Congestion, No Sinus Pain, No Hoarseness, No sore throat, No Rhinorrhea, No Swallowing Difficulty Eyes: No Eye Pain, No Swelling, No Redness, No Foreign Body, No Discharge, No Vision Changes Cardiovascular : No Chest Pain, No SOB, No Dyspnea on Exertion, No Orthopnea, No Edema, No Palpitations Respiratory : No Cough, No Sputum, No Wheezing, No Smoke Exposure, No Dyspnea Gastrointestinal : No Nausea, No Vomiting, No Diarrhea, No Constipation, No abdominal Pain, No Hematochezia, No Melena Genitourinary : no irregular bleeding, No Dysuria, No Urinary Frequency, No Hematuria, No Urinary Incontinence, No Urgency, No Flank Pain, No Urinary Flow Changes, No Hesitancy Musculoskeletal : No joint pain, No Myalgias, No Joint Swelling Skin : No Skin Lesions, No rash Neuro : No Weakness, No Numbness, No Paresthesias, No Loss of Consciousness, No Dizziness, No Headache Psych : No Anxiety/Panic, No Depression, No SI/HI/AH/VH, admits to polysubstance abuse, Heme/Lymph: No Bruising, No Bleeding,No Lymphadenopathy Endocrine : No Polyuria, No Polydipsia, No Temperature Intolerance [facility] Past Medical History Medical History Nonspecific ST-T wave electrocardiographic changes Accidental overdose Opioid use disorder Polysubstance (including opioids) dependence, daily use PCP abuse PTSD (post-traumatic stress disorder) Schizoaffective disorder, bipolar type Cocaine use disorder Suicidal behavior Depression Anxiety Schizophrenia Bipolar affective Schizophrenia Social History Social History (System 01/26/24 @ 11:37 by Gema Kohli) Household Members: None Housing: Homeless Do you presently have visiting nurse or other home services: No Unable to assess alcohol history related to: Unknown Alcohol intake: current Alcohol intake frequency: does not drink Alcohol type: hard liquor Comment: currently asleep Patient Tobacco Use Status: Never used Tobacco Cigarette Packs Per Day: 0.25 Cigarettes Per Day: 5.0 Years Smoked: 10 Smoked in Last 30 Days: Yes e-Cigarette/Vaping Use: Never Used Second Hand Smoke Exposure: No Use of substances other than those prescribed or required for medical reasons: Yes Substance Use Type: Crack/Cocaine and Heroin Substance Use Frequency: Chronic Longstanding Do you have a plan to hurt others: No Plan service: No Sexual orientation: Don't Know Physical Exam Vital Signs: Vital Signs: Last Vital Signs Temp 97.9 F 05/20/24 23:18 Pulse 71 05/20/24 23:18 Resp 14 05/20/24 23:18 BP 107/70 05/20/24 23:18 Pulse Ox 87 L 05/20/24 23:18 O2 Del Method Room Air 05/20/24 23:18 BMI result Body Mass Index 25.8 Const: Other: Appearance: Alert. Oriented X3. No acute distress. Eyes: Pupils equal, round and reactive to light. ENT: Pharynx normal. Neck: Normal inspection. Neck supple. No lymph nodes noted. No crepitus CVS: Normal heart rate and rhythm. Pulses normal. Normal S1 and S2 Respiratory: No respiratory distress. Breath sounds normal. No Wheezing. No rales Abdomen: Soft and nontender. No rigidity. No distention. Skin: Skin warm and dry. Normal skin color. Normal skin turgor. Extremities: No lower extremity edema. No Lacerations. No Rash Neuro: Oriented X 3. No motor deficit. No sensory deficit. Moving all extremities. No slurred speech. CN 2 through 12 grossly intact Psych: calm, cooperative, normal affect Course Course Course Narrative: according to patient's nurse, when patient 1st arrived, patient's oxygen saturation was 88% on room air while awake. When I saw the patient, patient is awake, alert and oriented x3, coherent, calm, oxygen saturation 94% On room air. Patient is not SI or HI, section 12 not indicated. Patient is not interested in detox I discussed with the patient that we will keep him under observation for couple of hours. If patient feels well, he will be discharged home, patient agrees with plan. Patient will be provided with home Narcan Medical Decision Making Medical Decision Making MDM Narrative: Patient awake, alert, no oxygen desaturations since I saw the patient, 94% and above. , cooperative. Differential Diagnosis Differential Diagnoses: The differential diagnosis associated with the presentation includes ( Polysubstance abuse) Discharge Plan Discharge Clinical Impression: Drug overdose, Polysubstance abuse Patient Disposition: Home, Self-Care Instructions: Polysubstance Abuse (ED), Adult Overdose (ED) Additional Instructions: Please follow-up with your primary care physician tomorrow. If you have any worsening or new symptoms, please return to the emergency room or call 911 Prescriptions: No Action chlorpromazine 100 mg Tablet 400 mg PO BEDTIME 30 Days Qty: 120 0RF lithium carbonate 300 mg Tablet Extended Release 300 mg PO DAILY 30 Days Qty: 30 0RF lithium carbonate 450 mg Tablet Extended Release 900 mg PO BEDTIME 30 Days Qty: 60 0RF lithium carbonate 450 mg Tablet Extended Release 450 mg PO DAILY 30 Days Qty: 30 0RF carbamazepine 200 mg Tablet 400 mg PO DAILY 30 Days Qty: 60 0RF fluphenazine decanoate 25 mg/mL Solution 37.5 mg IM Q14D@0900 Qty: 0 0RF carbamazepine 200 mg Tablet Extended Release 12 Hr 600 mg PO BEDTIME 30 Days Qty: 90 0RF benztropine 1 mg Tablet 1 mg PO BID 30 Days Qty: 60 0RF Print Language: Greek
[2024-05-20 23:18] VITALS: BP 107/70; PULSE 71; RESP 14; TEMP 36.6; O2SAT 87
[2024-05-21 00:18] VITALS: BP 110/72; PULSE 76; RESP 14; TEMP 36.6; O2SAT 95
== END 2024-05-21 00:24 | disposition home or self-care (01) ==
PROVIDERS: Emergency Provider Emergency Medicine
DX: T40.1X1A Poisoning by heroin, accidental (unintentional), initial encounter (principal); Y92.9 Unspecified place or not applicable; Z71.51 Drug abuse counseling and surveillance of drug abuser; F11.10 Opioid abuse, uncomplicated
CPT/HCPCS: 99284

== ENCOUNTER 2024-06-14 01:30 | Emergency (ER) | payer MEDICARE, MEDICAID, SELFPAY ==
--- NOTE | 2024-06-14 05:25 | ED.EXTPRO ---
HPI - Extremity Problem General Stated complaint: right big toe stubbed Time Seen by Provider: 06/14/24 02:25 Source: patient Mode of arrival: EMS Limitations: no limitations History of Present Illness ED Provider: HPI Narrative: Patient is homeless walks on stent for long hours wearing tight shoes complaining of pain in the feet which is going on for long time also has a open wound in the left hand from injuring few days ago patient has used drugs but not IVDA for last 6 months Related Data Previous Rx's ?Medication ?Instructions ?Recorded benztropine 1 mg tablet 1 mg PO BID 30 days #60 tabs 04/28/23 carbamazepine 200 mg tablet 400 mg (2 x 200 mg) PO DAILY 30 04/28/23 days #60 tabs carbamazepine 200 mg 600 mg (3 x 200 mg) PO BEDTIME 30 04/28/23 tablet,extended release,12 hr days #90 tabs chlorpromazine 100 mg tablet 400 mg (4 x 100 mg) PO BEDTIME 30 04/28/23 days #120 tabs fluphenazine decanoate 25 mg/mL 37.5 mg (1.5 mL) IM Q14D@0900 #0 mL 04/28/23 injection solution lithium carbonate 300 mg 300 mg PO DAILY 30 days #30 tabs 04/28/23 tablet,extended release lithium carbonate 450 mg 450 mg PO DAILY 30 days #30 tabs 04/28/23 tablet,extended release lithium carbonate 450 mg 900 mg (2 x 450 mg) PO BEDTIME 30 04/28/23 tablet,extended release days #60 tabs doxycycline hyclate 100 mg tablet 100 mg PO BID #20 tabs 06/14/24 Allergies Allergy/AdvReac Type Severity Reaction Status Date / Time morphine [MORPHINE] AdvReac Unknown NAUSEA Verified 05/20/24 22:29 Review of Systems Review of Systems: Yes all other systems are reviewed and are negative PMFSH Past Medical History Medical History Nonspecific ST-T wave electrocardiographic changes Accidental overdose Opioid use disorder Polysubstance (including opioids) dependence, daily use PCP abuse PTSD (post-traumatic stress disorder) Schizoaffective disorder, bipolar type Cocaine use disorder Suicidal behavior Depression Anxiety Schizophrenia Bipolar affective Schizophrenia Social History Social History Household Members: None Housing: Homeless Do you presently have visiting nurse or other home services: No Unable to assess alcohol history related to: Unknown Alcohol intake: current Alcohol intake frequency: does not drink Alcohol type: hard liquor Comment: currently asleep Patient Tobacco Use Status: Never used Tobacco Cigarette Packs Per Day: 0.25 Cigarettes Per Day: 5.0 Years Smoked: 10 e-Cigarette/Vaping Use: Never Used Second Hand Smoke Exposure: No Substance Use Type: Crack/Cocaine and Heroin Advance Directives: No Advance Directives Information Provided: Yes service: No Sexual orientation: Don't Know Physical Exam Vital Signs: Vital Signs: Last Vital Signs Temp 97.4 F 06/14/24 05:38 Pulse 87 06/14/24 05:38 Resp 18 06/14/24 05:38 BP 114/74 06/14/24 05:38 Pulse Ox 98 06/14/24 05:38 O2 Del Method Room Air 06/14/24 05:38 Appearance: Alert. Oriented X3. No acute distress. Eyes: No pallor or icterus ENT: Pharynx normal. Oral Mucosa moist Neck: Normal inspection. Neck supple. CVS: Normal heart rate and rhythm. Pulses normal. Respiratory: No respiratory distress. Equal air entry bilateral, no wheezing/rales/rhonchi Abdomen: Soft and nontender. Bowel sounds are present, no mass palpable, no CVA tenderness Skin: Skin warm and dry. Normal skin color. Normal skin turgor. Extremities: No lower extremity edema. No calf tenderness unkept condition of the bilateral feet, no open wound no signs of cellulitis has chronically open wound on the left dorsum of the hand with slight redness Neuro: Oriented X 3. No motor deficit. No sensory deficit.No cerebellar signs , cranial nerves II-XII intact Medical Decision Making Medical Decision Making MDM Narrative: Patient is homeless looking for place to sleep tonight no active medical complaints chronic feet pain because of standing and wearing the shoes for long hours will discharge patient Discharge Plan Discharge Clinical Impression: Chronic lower limb pain Patient Disposition: Home, Self-Care Instructions: Leg Pain (ED) Additional Instructions: Avoid wearing tight shoes Care as advised Take antibiotic for open wound on the left hand Prescriptions: New doxycycline hyclate 100 mg tablet 100 mg PO BID Qty: 20 0RF No Action chlorpromazine 100 mg Tablet 400 mg PO BEDTIME 30 Days Qty: 120 0RF lithium carbonate 300 mg Tablet Extended Release 300 mg PO DAILY 30 Days Qty: 30 0RF lithium carbonate 450 mg Tablet Extended Release 900 mg PO BEDTIME 30 Days Qty: 60 0RF lithium carbonate 450 mg Tablet Extended Release 450 mg PO DAILY 30 Days Qty: 30 0RF carbamazepine 200 mg Tablet 400 mg PO DAILY 30 Days Qty: 60 0RF fluphenazine decanoate 25 mg/mL Solution 37.5 mg IM Q14D@0900 Qty: 0 0RF carbamazepine 200 mg Tablet Extended Release 12 Hr 600 mg PO BEDTIME 30 Days Qty: 90 0RF benztropine 1 mg Tablet 1 mg PO BID 30 Days Qty: 60 0RF Interventions: ED Discharge Assessment Last Done: 06/14/24 05:38 Discharge Date/Time: 06/14/24 05:42 Print Language: Estonian
--- NOTE | 2024-06-14 05:27 | PC.NURSE ---
chart is off line from 0100 to 0500. pt is homeless and has been given the backpack with supplies. pt given hot drinks and sandwhichs. pt is alert and thankful. plan is for discharge and to done at [facility] due to cold weather and homeless. left hand has a wound and antibiotic prescribed for pt due to he only took one dose of his mothers old antibotic. pt has been up walking to the bathroom and demonstrated a steady gait. pt is ready for discharge.
[2024-06-14 05:38] VITALS: BP 114/74; PULSE 87; RESP 18; TEMP 36.3; O2SAT 98
== END 2024-06-14 05:42 | disposition home or self-care (01) ==
PROVIDERS: Emergency Provider Internal Medicine
DX: M79.674 Pain in right toe(s) (principal); F16.10 Hallucinogen abuse, uncomplicated; Z59.00 Homelessness unspecified; Z79.899 Other long term (current) drug therapy
CPT/HCPCS: 99282

== ENCOUNTER 2024-07-04 17:19 | Inpatient (IN) | payer MEDICARE, MEDICAID, SELFPAY ==
--- NOTE | ~2024-07-04 | XR_ITS ---
CLINICAL HISTORY: hand pain after punching wall 3 view right hand Comparison: None Findings: Bones intact. No dislocations. No significant loss of joint space or osteophytes. No erosions. No radiopaque foreign body. IMPRESSION: 1. No acute findings This document has been electronically signed by: Lincoln Bear MD on 07/04/2024 19:22:20
[2024-07-04 17:28] VITALS: BP 106/65; PULSE 64; RESP 16; TEMP 37.2; O2SAT 100; BMI 24.4
--- NOTE | 2024-07-04 17:50 | ECG_ITS ---
Test Reason : CHECK QT Blood Pressure : */* mmHG Vent. Rate : 51 BPM Atrial Rate : 51 BPM P-R Int : 140 ms QRS Dur : 86 ms QT Int : 410 ms P-R-T Axes : 46 76 54 degrees QTcB Int : 377 ms Sinus bradycardia with sinus arrhythmia Septal infarct , age undetermined Abnormal ECG When compared with ECG of 01-Feb-2023 10:09, Septal infarct is now Present Nonspecific T wave abnormality now evident in Anterior leads Referred By: Jerry Clark Electronically Signed By: Saji Parham
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
[2024-07-04 18:10] LABS: MANUAL DIFF FLAG NO
[2024-07-04 18:22] LABS: Lithium < 0.10 mmol/L (0.60-1.20)
[2024-07-04 18:23] LABS: Basophils Percent Auto 0.5 % (0-2); Eosinophils Absolute Auto 0.7 X10*3/uL (0.0-0.4); Hematocrit 40.4 % (42.0-52.0); Hemoglobin 13.7 g/dl (14.0-18.0); Imm Gran Abs Auto 0.02 X10*3/uL (0.00-0.03); Imm Gran Pct Auto 0.2 % (0.0-0.4); Lymphocytes Absolute Auto 3.4 X10*3/uL (1.2-4.9); Lymphocytes Percent Auto 39.4 % (20-40); Mean Corpuscular HGB Conc 33.9 g/dl (31.0-36.0); Mean Corpuscular Volume 91.4 fL (80.0-98.0); Mean Platelet Volume 10.9 fL (9.4-12.4); Monocytes Absolute Auto 0.9 X10*3/uL (0.1-1.2); Monocytes Percent Auto 10.4 % (2-11); Neutrophils Absolute Auto 3.6 x10*3/uL (2.0-8.3); Neutrophils Percent Auto 41.5 % (45-73); Platelet Count 187 X10*3/uL (160-400); Red Blood Count 4.42 X10*6/uL (4.60-5.80); Red Cell Distribution Width 12.6 % (11.0-16.0); White Blood Count 8.7 X10*3/uL (4.8-10.8)
[2024-07-04 18:30] LABS: Anion Gap 12 (12-20); Blood Urea Nitrogen 22 mg/dL (9-16); Calcium 8.8 mg/dL (8.4-10.2); Carbon Dioxide 19 mmol/L (22-29); Chloride 112 mmol/L (96-108); Creatinine Clr Calc Pharmacy 143.8; Estimated Glomerular Filt Rate > 60; Ethanol < 10 mg/dL; Glucose Random 92 mg/dL (60-115); Potassium 4.3 mmol/L (3.3-5.1); Salicylate < 5.0 mg/dL (15-30); Sodium 139 mmol/L (135-145)
[2024-07-04] MEDS: Benztropine Mesylate 1 MG TABLET PO (20:30)
[2024-07-04] MEDS: Lithium Carbonate ER 450 MG TABLET.ER 900 MG PO (20:30)
[2024-07-04] MEDS: chlorproMAZINE HCl 100 MG TABLET 400 MG PO (20:30)
[2024-07-04] MEDS: carBAMazepine ER 200 MG TAB.ER.12H 600 MG PO (20:30)
--- NOTE | 2024-07-04 20:37 | PC.NURSE ---
Patient noted to be pacing back and forth along with self dialoguing.
--- NOTE | 2024-07-04 21:11 | MHC.CARE ---
Patient will be IPLOC. Section 12a placed in chart for safety.
[2024-07-04 23:14] VITALS: BP 111/55; PULSE 74; RESP 16; TEMP 36.5; O2SAT 96
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
[2024-07-05 08:00] VITALS: BP 101/55; PULSE 67; RESP 18; TEMP 36.4; O2SAT 99
[2024-07-05] MEDS: Lithium Carbonate ER 300 MG TABLET.ER PO (08:23)
[2024-07-05] MEDS: Benztropine Mesylate 1 MG TABLET PO ×2 (08:23→21:07)
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
[2024-07-05] MEDS: Acetaminophen 325 MG TABLET 650 MG PO ×3 (10:47→22:40)
[2024-07-05] MEDS: Divalproex Sodium 500 MG TABLET.DR 1000 MG PO ×2 (13:53→21:07)
[2024-07-05] MEDS: Baclofen 10 MG TABLET PO ×2 (13:53→21:07)
[2024-07-05] MEDS: busPIRone HCl 10 MG TABLET PO ×2 (15:23→21:07)
--- NOTE | 2024-07-05 15:45 | PC.NURSE ---
Spoke to nurse from PACT program to verify patients medications. Per [facility] referral they received on 04/02 patient prescribed Baclofen 10 mg bid, Buspar 10mg bid, Depakote DR 500mg 2 tab bid, remeron 7.5mg hs and Olanzapine 10 mg hs. Spoke to [facility] pharmacy Imtiaz Mckeon Confirms prescription and doses, states he has not filled rx since 05/04. Most recent prescriptions writtent by Lorna Martinez [facility].
--- NOTE | 2024-07-05 17:31 | PM.EVENT ---
Event Note Date of Service: 07/05/24 Event Note: Addiction consult placed for patient requesting methadone on unit No documented history of MOUD No current UDS No observable withdrawal sx Plan: COWS ordered will see patient on 07/06 Time Spent With Patient Time: Total time managing care of this patient today ____ minutes.
[2024-07-05] MEDS: hydrOXYzine HCL 25 MG TABLET PO (19:51)
[2024-07-05 20:00] VITALS: BP 108/57; PULSE 53; RESP 16; TEMP 36.4; O2SAT 100
[2024-07-05] MEDS: Mirtazapine 7.5 MG TABLET PO (21:06)
[2024-07-05] MEDS: OLANZapine 10 MG TABLET PO (21:07)
[2024-07-06] MEDS: Acetaminophen 325 MG TABLET 650 MG PO ×3 (04:43→19:38)
[2024-07-06 08:00] VITALS: BP 127/62; PULSE 94; RESP 14; TEMP 36.4; O2SAT 100
[2024-07-06] MEDS: busPIRone HCl 10 MG TABLET PO ×3 (08:44→21:55)
[2024-07-06] MEDS: Baclofen 10 MG TABLET PO ×2 (08:44→21:55)
[2024-07-06] MEDS: Divalproex Sodium 500 MG TABLET.DR 1000 MG PO ×2 (08:44→21:55)
[2024-07-06] MEDS: Benztropine Mesylate 1 MG TABLET PO ×2 (08:44→21:55)
[2024-07-06 08:50] VITALS: PULSE 94
--- NOTE | 2024-07-06 14:13 | MHC.RECOVRN ---
Attempted to meet with pt after receiving Addiction Medicine consult for pt interested in methadone initiation. Upon introducing self, pt declines to meet with t/w. Mónica Leong APRN, aware.
--- NOTE | 2024-07-06 14:39 | P.PNPSI_ITS ---
Subjective Subjective Date of Service: 07/06/24 Reason For Visit: Depressed Interim History: in milieu. calm, cooperative, distracted. no complaints or requests. per staff, in bed much of day. denies mood Sx or AVH. denies w/drawal Sx. +RIS. pacing. slept 4-5 hours. Mental Status Exam Mental Status Exam Narrative: Pt is alert and oriented; behavior is cooperative, calm, guarded; dressed in casual attire, malodorous; mood is described as okay ; eye contact appropriate; Speech is normal rate, volume and not pressured; thought process is organized; appears to be responding to internal stimuli however, denies AH/VH; denies SI/HI. Diagnostics Vital Signs (24Hr): Vital Signs - 24 hr 07/05/24 20:00 07/06/24 08:00 Temperature 97.6 F 97.6 F Pulse Rate 53 94 Respiratory Rate 16 14 Blood Pressure 108/57 L 127/62 Pulse Oximetry 100 100 Oxygen Delivery Method Room Air BMI result Body Mass Index 24.4 Labs 07/04/24 18:05 07/04/24 18:05 Labs: Laboratory Results - last 48 hr 07/04/24 18:05 WBC 8.7 RBC 4.42 L Hgb 13.7 L Hct 40.4 L MCV 91.4 MCH 31.0 MCHC 33.9 RDW 12.6 Plt Count 187 D MPV 10.9 Immature Gran % (Auto) 0.2 Neut % (Auto) 41.5 L Lymph % (Auto) 39.4 [place] % (Auto) 10.4 Eos % (Auto) 8.0 H Baso % (Auto) 0.5 Lymph # (Auto) 3.4 [place] # (Auto) 0.9 Eos # (Auto) 0.7 H Baso # (Auto) 0.0 Abs Immat Gran (auto) 0.02 Absolute Neuts (auto) 3.6 Absolute Nucleated RBC 0.000 Nucleated RBC % (auto) 0.0 Sodium 139 Potassium 4.3 Chloride 112 H Carbon Dioxide 19 L Anion Gap 12 BUN 22 H Creatinine 0.80 Estim Creat Clear Calc 143.8 Estimated GFR > 60 Random Glucose 92 Calcium 8.8 Salicylates < 5.0 L [place] < 0.10 L Ethyl Alcohol < 10 Medications Medications Current Medications Acetaminophen (Acetaminophen 325 Mg Tablet) 650 mg PO Q6H PRN PRN Reason: Headache/Pain, Scale 1-10 Last Admin: 07/06/24 13:27 Dose: 650 mg Al Hydroxide/Mg Hydroxide (Magnesium Hydrox/Alum Hydrox 30 Ml Oral.Susp) 30 ml PO Q6H PRN PRN Reason: Heartburn/Nausea Baclofen (Baclofen 10 Mg Tablet) 10 mg PO BID [facility] Last Admin: 07/06/24 08:44 Dose: 10 mg Benztropine Mesylate (Benztropine Mesylate 1 Mg Tablet) 1 mg PO BID [facility] Last Admin: 07/06/24 08:44 Dose: 1 mg Buspirone HCl (Buspirone Hcl 10 Mg Tablet) 10 mg PO TID [facility] Last Admin: 07/06/24 08:44 Dose: 10 mg Divalproex Sodium (Divalproex Sodium 500 Mg Tablet.Dr) 1,000 mg PO BID [facility] Last Admin: 07/06/24 08:44 Dose: 1,000 mg Fluphenazine Decanoate (Fluphenazine Decanoate 25 Mg/Ml 5 Ml Vial) 37.5 mg IM Q14D@0900 [facility] Hydroxyzine HCl (Hydroxyzine Hcl 25 Mg Tablet) 25 mg PO Q6H PRN PRN Reason: mild anxiety Last Admin: 07/05/24 19:51 Dose: 25 mg Magnesium Hydroxide (Milk Of Magnesia 30 Ml Oral.Susp) 30 ml PO DAILY PRN PRN Reason: Constipation Mirtazapine (Mirtazapine 7.5 Mg Tablet) 7.5 mg PO BEDTIME [facility] Last Admin: 07/05/24 21:06 Dose: 7.5 mg Nicotine (Nicotine 21 Mg Patch.Td24) 21 mg TRANSDERMA DAILY PRN PRN Reason: smoking cessation Nicotine Polacrilex (Nicotine Polacrilex 2 Mg Gum) 4 mg BUCCAL Q2H PRN PRN Reason: Nicotine Cravings Olanzapine (Olanzapine 5 Mg Tablet) 5 mg PO TID PRN PRN Reason: agitation Olanzapine (Olanzapine 10 Mg Tablet) 10 mg PO BEDTIME [facility] Last Admin: 07/05/24 21:07 Dose: 10 mg Trazodone HCl (Trazodone Hcl 50 Mg Tablet) 50 mg PO BEDTIME MRX1 PRN PRN Reason: Insomnia Allergies Allergies Allergy/AdvReac Type Severity Reaction Status Date / Time morphine [MORPHINE] AdvReac Unknown NAUSEA Verified 07/04/24 17:30 Assessment & Plan Assessment & Plan (1) Schizoaffective disorder, bipolar type: Status: Acute Code(s): F25.0 - Schizoaffective disorder, bipolar type (2) Opioid use disorder: Status: Acute Code(s): F11.90 - Opioid use, unspecified, uncomplicated (3) Cocaine use disorder: Status: Acute Code(s): F14.10 - Cocaine abuse, uncomplicated Plan Patient is a 29-year-old male with history of schizoaffective disorder, opiate use disorder, cocaine use disorder who presented to ER via ambulance due to agitation at home secondary to medication noncompliance and substance use. Plan: CV 15 minute safety checks Continue home medications (medications verified via XIAO Palomino who contacted [facility] pharmacy.) obtain collateral Addiction medicine consult Encourage medication compliance Encourage groups Discharge planning 07/06: stable presentation. no complaints, concerns, or requests. continue current mgmt. Reason for continued inpatient stay Substantial Risk for: harm to self and inability to function Time Spent With Patient Time: Total time managing care of this patient today ____ minutes.
[2024-07-06 16:00] VITALS: PULSE 86
[2024-07-06 20:00] VITALS: RESP 18
[2024-07-06] MEDS: hydrOXYzine HCL 25 MG TABLET PO (21:55)
[2024-07-06] MEDS: OLANZapine 10 MG TABLET PO (21:55)
[2024-07-06] MEDS: Mirtazapine 7.5 MG TABLET PO (21:55)
[2024-07-07] MEDS: Acetaminophen 325 MG TABLET 650 MG PO ×3 (01:32→20:45)
[2024-07-07 08:00] VITALS: BP 117/53; PULSE 86; RESP 16; TEMP 36.8; O2SAT 99
[2024-07-07] MEDS: busPIRone HCl 10 MG TABLET PO ×3 (08:15→20:42)
[2024-07-07] MEDS: Baclofen 10 MG TABLET PO ×2 (08:15→20:56)
[2024-07-07] MEDS: Divalproex Sodium 500 MG TABLET.DR 1000 MG PO ×2 (08:16→20:42)
[2024-07-07] MEDS: Benztropine Mesylate 1 MG TABLET PO ×2 (08:16→20:42)
[2024-07-07 08:20] VITALS: BP 117/53; PULSE 86; RESP 16; TEMP 36.8; O2SAT 99
--- NOTE | 2024-07-07 09:18 | HO.PSYCHPN ---
Subjective Subjective Date of Service: 07/07/24 Reason For Visit: Depressed Interim History: The nursing staff reported the patient remains flat, withdrawn guarded. He has not attend to any groups but he has been medication compliant. The staff has noticed that he stares at the exits. Yesterday, apparently he took a shower but his hair was dry. The staff has notice also that he constantly self dialogues. He slept poorly, only 4 hours last night. On interview the patient reports no new symptoms. Mental Status Exam Mental Status Exam Patient Appearance: Appropriate Patient Orientation: Person and Situation Level of Consciousness: Awake and Appropriate Patient Behavior: Guarded and Passive Mood Description: Withdrawn Affect Description: Blunted Patient Cognition Impaired: Yes Ability to Follow Directions: Good Speech Pattern: Clear Hallucinations: Auditory Delusions: Paranoid Ideation and Ideas of Reference Thought Process: Distracted and Evasive Thought Content: positive for [place] and positive for Circumstantial Judgement: Poor Diagnostics Vital Signs (24Hr): Vital Signs - 24 hr 07/06/24 20:00 07/07/24 08:00 07/07/24 08:20 Temperature 98.2 F 98.2 F Pulse Rate 86 86 Respiratory Rate 18 16 16 Blood Pressure 117/53 L 117/53 L Pulse Oximetry 99 99 Oxygen Delivery Method Room Air Room Air BMI result Body Mass Index 24.4 Labs 07/04/24 18:05 07/04/24 18:05 Medications Medications Current Medications Acetaminophen (Acetaminophen 325 Mg Tablet) 650 mg PO Q6H PRN PRN Reason: Headache/Pain, Scale 1-10 Last Admin: 07/07/24 01:32 Dose: 650 mg Al Hydroxide/Mg Hydroxide (Magnesium Hydrox/Alum Hydrox 30 Ml Oral.Susp) 30 ml PO Q6H PRN PRN Reason: Heartburn/Nausea Baclofen (Baclofen 10 Mg Tablet) 10 mg PO BID [facility] Last Admin: 07/07/24 08:15 Dose: 10 mg Benztropine Mesylate (Benztropine Mesylate 1 Mg Tablet) 1 mg PO BID [facility] Last Admin: 07/07/24 08:16 Dose: 1 mg Buspirone HCl (Buspirone Hcl 10 Mg Tablet) 10 mg PO TID [facility] Last Admin: 07/07/24 08:15 Dose: 10 mg Divalproex Sodium (Divalproex Sodium 500 Mg Tablet.) 1,000 mg PO BID [facility] Last Admin: 07/07/24 08:16 Dose: 1,000 mg Fluphenazine Decanoate (Fluphenazine Decanoate 25 Mg/Ml 5 Ml Vial) 37.5 mg IM Q14D@0900 [facility] Hydroxyzine HCl (Hydroxyzine Hcl 25 Mg Tablet) 25 mg PO Q6H PRN PRN Reason: mild anxiety Last Admin: 07/06/24 21:55 Dose: 25 mg Magnesium Hydroxide (Milk Of Magnesia 30 Ml Oral.Susp) 30 ml PO DAILY PRN PRN Reason: Constipation Mirtazapine (Mirtazapine 7.5 Mg Tablet) 7.5 mg PO BEDTIME [facility] Last Admin: 07/06/24 21:55 Dose: 7.5 mg Nicotine (Nicotine 21 Mg Patch.Td24) 21 mg TRANSDERMA DAILY PRN PRN Reason: smoking cessation Nicotine Polacrilex (Nicotine Polacrilex 2 Mg Gum) 4 mg BUCCAL Q2H PRN PRN Reason: Nicotine Cravings Olanzapine (Olanzapine 5 Mg Tablet) 5 mg PO TID PRN PRN Reason: agitation Olanzapine (Olanzapine 10 Mg Tablet) 10 mg PO BEDTIME [facility] Last Admin: 07/06/24 21:55 Dose: 10 mg Trazodone HCl (Trazodone Hcl 50 Mg Tablet) 50 mg PO BEDTIME MRX1 PRN PRN Reason: Insomnia Allergies Allergies Allergy/AdvReac Type Severity Reaction Status Date / Time morphine [MORPHINE] AdvReac Unknown NAUSEA Verified 07/04/24 17:30 Assessment & Plan Assessment & Plan (1) Schizoaffective disorder, bipolar type: Status: Acute Code(s): F25.0 - Schizoaffective disorder, bipolar type (2) Opioid use disorder: Status: Acute Code(s): F11.90 - Opioid use, unspecified, uncomplicated (3) Cocaine use disorder: Status: Acute Code(s): F14.10 - Cocaine abuse, uncomplicated Plan Patient is a 29-year-old male with history of schizoaffective disorder, opiate use disorder, cocaine use disorder who presented to ER via ambulance due to agitation at home secondary to medication noncompliance and substance use. Plan: 15 minute safety checks Continue home medications (medications verified via XIAO Palomino who contacted [facility] pharmacy.) obtain collateral Addiction medicine consult Encourage medication compliance Encourage groups Discharge planning 07/06: stable presentation. no complaints, concerns, or requests. continue current mgmt. 07/07 keep same treatment Reason for continued inpatient stay Substantial Risk for: inability to function, rapid decompensation and med/psych decompensation Time Spent With Patient Time: Total time managing care of this patient today __20__ minutes.
--- NOTE | 2024-07-07 14:26 | PC.NURSE ---
Miguel Ángel placed onf ASH restrict due to pulling on exit doors and lingering by exit doors.
[2024-07-07] MEDS: hydrOXYzine HCL 25 MG TABLET PO (15:53)
[2024-07-07] MEDS: OLANZapine 5 MG TABLET PO (15:53)
[2024-07-07 16:00] VITALS: PULSE 82
[2024-07-07 20:00] VITALS: RESP 15
[2024-07-07] MEDS: Mirtazapine 7.5 MG TABLET PO (20:42)
[2024-07-07] MEDS: OLANZapine 10 MG TABLET PO (20:42)
[2024-07-08 08:00] VITALS: BP 124/58; PULSE 92; RESP 14; TEMP 37.2; O2SAT 98
[2024-07-08] MEDS: busPIRone HCl 10 MG TABLET PO ×3 (08:24→20:28)
[2024-07-08] MEDS: Benztropine Mesylate 1 MG TABLET PO ×2 (08:24→20:28)
[2024-07-08] MEDS: Divalproex Sodium 500 MG TABLET.DR 1000 MG PO ×2 (08:24→20:27)
[2024-07-08] MEDS: Baclofen 10 MG TABLET PO ×2 (08:24→20:27)
--- NOTE | 2024-07-08 09:11 | HO.PSYCHPN ---
Subjective Subjective Date of Service: 07/08/24 Reason For Visit: Depressed Subjective Notes: Conditional Voluntary Interim History: The nursing staff reported the patient has with flat affect ate 100% his meals and he was seen responding to internal stimuli. He did not attend to any groups. 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 Called so the staff noticed that he patient had been internally preoccupied exit seeking refused but I will signs and since historically he had eloped psychiatric unit we had to hold his fresh air break. On interview the patient denies new symptoms looks internally preoccupied. Mental Status Exam Mental Status Exam Patient Appearance: Appropriate Patient Orientation: Person, Place and Situation Level of Consciousness: Awake Patient Behavior: Guarded Mood Description: Suspicious Affect Description: Constricted Patient Cognition Impaired: Yes Ability to Follow Directions: Good Speech Pattern: Clear Hallucinations: Auditory Delusions: Ideas of Reference Thought Process: Distracted and Slowed Thinking Thought Content: positive for [place] and positive for Poverty of Content Judgement: Fair Diagnostics Vital Signs (24Hr): Vital Signs - 24 hr 07/07/24 20:00 07/08/24 08:00 Temperature 98.9 F Pulse Rate 92 Respiratory Rate 15 14 Blood Pressure 124/58 L Pulse Oximetry 98 Oxygen Delivery Method Room Air BMI result Body Mass Index 24.4 Labs 07/04/24 18:05 07/04/24 18:05 Medications Medications Current Medications Acetaminophen (Acetaminophen 325 Mg Tablet) 650 mg PO Q6H PRN PRN Reason: Headache/Pain, Scale 1-10 Last Admin: 07/07/24 20:45 Dose: 650 mg Al Hydroxide/Mg Hydroxide (Magnesium Hydrox/Alum Hydrox 30 Ml Oral.Susp) 30 ml PO Q6H PRN PRN Reason: Heartburn/Nausea Baclofen (Baclofen 10 Mg Tablet) 10 mg PO BID [facility] Last Admin: 07/08/24 08:24 Dose: 10 mg Benztropine Mesylate (Benztropine Mesylate 1 Mg Tablet) 1 mg PO BID [facility] Last Admin: 07/08/24 08:24 Dose: 1 mg Buspirone HCl (Buspirone Hcl 10 Mg Tablet) 10 mg PO TID [facility] Last Admin: 07/08/24 08:24 Dose: 10 mg Divalproex Sodium (Divalproex Sodium 500 Mg Tablet.) 1,000 mg PO BID [facility] Last Admin: 07/08/24 08:24 Dose: 1,000 mg Fluphenazine Decanoate (Fluphenazine Decanoate 25 Mg/Ml 5 Ml Vial) 37.5 mg IM Q14D@0900 [facility] Hydroxyzine HCl (Hydroxyzine Hcl 25 Mg Tablet) 25 mg PO Q6H PRN PRN Reason: mild anxiety Last Admin: 07/07/24 15:53 Dose: 25 mg Magnesium Hydroxide (Milk Of Magnesia 30 Ml Oral.Susp) 30 ml PO DAILY PRN PRN Reason: Constipation Mirtazapine (Mirtazapine 7.5 Mg Tablet) 7.5 mg PO BEDTIME [facility] Last Admin: 07/07/24 20:42 Dose: 7.5 mg Nicotine (Nicotine 21 Mg Patch.Td24) 21 mg TRANSDERMA DAILY PRN PRN Reason: smoking cessation Nicotine Polacrilex (Nicotine Polacrilex 2 Mg Gum) 4 mg BUCCAL Q2H PRN PRN Reason: Nicotine Cravings Olanzapine (Olanzapine 5 Mg Tablet) 5 mg PO TID PRN PRN Reason: agitation Last Admin: 07/07/24 15:53 Dose: 5 mg Olanzapine (Olanzapine 10 Mg Tablet) 10 mg PO BEDTIME [facility] Last Admin: 07/07/24 20:42 Dose: 10 mg Trazodone HCl (Trazodone Hcl 50 Mg Tablet) 50 mg PO BEDTIME MRX1 PRN PRN Reason: Insomnia Allergies Allergies Allergy/AdvReac Type Severity Reaction Status Date / Time morphine [MORPHINE] AdvReac Unknown NAUSEA Verified 07/04/24 17:30 Assessment & Plan Assessment & Plan (1) Schizoaffective disorder, bipolar type: Status: Acute Code(s): F25.0 - Schizoaffective disorder, bipolar type (2) Opioid use disorder: Status: Acute Code(s): F11.90 - Opioid use, unspecified, uncomplicated (3) Cocaine use disorder: Status: Acute Code(s): F14.10 - Cocaine abuse, uncomplicated Plan Patient is a 29-year-old male with history of schizoaffective disorder, opiate use disorder, cocaine use disorder who presented to ER via ambulance due to agitation at home secondary to medication noncompliance and substance use. Plan: 15 minute safety checks Continue home medications (medications verified via XIAO Palomino who contacted [facility] pharmacy.) obtain collateral Addiction medicine consult Encourage medication compliance Encourage groups Discharge planning 07/06: stable presentation. no complaints, concerns, or requests. continue current mgmt. 07/07 keep same treatment. 07/08 keep same treatment Reason for continued inpatient stay Substantial Risk for: inability to function, rapid decompensation and med/psych decompensation Time Spent With Patient Time: Total time managing care of this patient today __20__ minutes.
[2024-07-08] MEDS: Acetaminophen 325 MG TABLET 650 MG PO ×2 (09:34→20:26)
[2024-07-08] MEDS: OLANZapine 5 MG TABLET PO (14:09)
[2024-07-08] MEDS: hydrOXYzine HCL 25 MG TABLET PO (19:27)
[2024-07-08 20:00] VITALS: BP 131/65; PULSE 80; RESP 16; TEMP 36.4; O2SAT 99
[2024-07-08] MEDS: Mirtazapine 7.5 MG TABLET PO (20:27)
[2024-07-08] MEDS: OLANZapine 10 MG TABLET PO (20:28)
[2024-07-09] MEDS: Ibuprofen 400 MG TABLET PO (05:48)
[2024-07-09 07:35] VITALS: BP 116/63; PULSE 82; RESP 14; TEMP 37.2; O2SAT 99
[2024-07-09] MEDS: Acetaminophen 325 MG TABLET 650 MG PO ×2 (09:24→19:13)
[2024-07-09] MEDS: Benztropine Mesylate 1 MG TABLET PO ×2 (09:24→20:31)
[2024-07-09] MEDS: Baclofen 10 MG TABLET PO ×2 (09:24→20:32)
[2024-07-09] MEDS: Divalproex Sodium 500 MG TABLET.DR 1000 MG PO (09:24)
[2024-07-09] MEDS: busPIRone HCl 10 MG TABLET PO ×3 (09:24→20:32)
--- NOTE | 2024-07-09 09:49 | HO.PSYCHPN ---
Subjective Subjective Date of Service: 07/09/24 Reason For Visit: Depressed Subjective Notes: Conditional Voluntary Interim History: Active on unit, keeping to self. appears to be responding to internal stimuli, smiling to self and giggling at times, however denies AH/VH. Pt reports feeling good today; agreed to having labs drawn today. denies SI/HI. Depakote level 106.3 and ammonia level 106. Start: lactulose 40gm PO daily decrease depakote to 750mg PO BID Medication Compliance: Yes Side effects from medications: No Attending Groups: Intermittent Mental Status Exam Mental Status Exam Narrative: Pt is alert and oriented; behavior is cooperative, calm, guarded; dressed in casual attire; mood is described as good ; eye contact appropriate; Speech is normal rate, volume and not pressured; thought process is organized; appears to be responding to internal stimuli however, denies AH/VH; denies SI/HI. Diagnostics Vital Signs (24Hr): Vital Signs - 24 hr 07/08/24 20:00 07/09/24 07:35 Temperature 97.5 F 98.9 F Pulse Rate 80 82 Respiratory Rate 16 14 Blood Pressure 131/65 116/63 Pulse Oximetry 99 99 Oxygen Delivery Method Room Air BMI result Body Mass Index 24.4 Labs 07/04/24 18:05 07/04/24 18:05 Medications Medications Current Medications Acetaminophen (Acetaminophen 325 Mg Tablet) 650 mg PO Q6H PRN PRN Reason: Headache/Pain, Scale 1-10 Last Admin: 07/09/24 09:24 Dose: 650 mg Al Hydroxide/Mg Hydroxide (Magnesium Hydrox/Alum Hydrox 30 Ml Oral.Susp) 30 ml PO Q6H PRN PRN Reason: Heartburn/Nausea Baclofen (Baclofen 10 Mg Tablet) 10 mg PO BID [facility] Last Admin: 07/09/24 09:24 Dose: 10 mg Benztropine Mesylate (Benztropine Mesylate 1 Mg Tablet) 1 mg PO BID [facility] Last Admin: 07/09/24 09:24 Dose: 1 mg Buspirone HCl (Buspirone Hcl 10 Mg Tablet) 10 mg PO TID [facility] Last Admin: 07/09/24 09:24 Dose: 10 mg Divalproex Sodium (Divalproex Sodium 500 Mg Tablet.) 1,000 mg PO BID [facility] Last Admin: 07/09/24 09:24 Dose: 1,000 mg Fluphenazine Decanoate (Fluphenazine Decanoate 25 Mg/Ml 5 Ml Vial) 37.5 mg IM Q14D@0900 [facility] Hydroxyzine HCl (Hydroxyzine Hcl 25 Mg Tablet) 25 mg PO Q6H PRN PRN Reason: mild anxiety Last Admin: 07/08/24 19:27 Dose: 25 mg Magnesium Hydroxide (Milk Of Magnesia 30 Ml Oral.Susp) 30 ml PO DAILY PRN PRN Reason: Constipation Mirtazapine (Mirtazapine 7.5 Mg Tablet) 7.5 mg PO BEDTIME [facility] Last Admin: 07/08/24 20:27 Dose: 7.5 mg Nicotine (Nicotine 21 Mg Patch.Td24) 21 mg TRANSDERMA DAILY PRN PRN Reason: smoking cessation Nicotine Polacrilex (Nicotine Polacrilex 2 Mg Gum) 4 mg BUCCAL Q2H PRN PRN Reason: Nicotine Cravings Olanzapine (Olanzapine 5 Mg Tablet) 5 mg PO TID PRN PRN Reason: agitation Last Admin: 07/08/24 14:09 Dose: 5 mg Olanzapine (Olanzapine 10 Mg Tablet) 10 mg PO BEDTIME [facility] Last Admin: 07/08/24 20:28 Dose: 10 mg Trazodone HCl (Trazodone Hcl 50 Mg Tablet) 50 mg PO BEDTIME MRX1 PRN PRN Reason: Insomnia Allergies Allergies Allergy/AdvReac Type Severity Reaction Status Date / Time morphine [MORPHINE] AdvReac Unknown NAUSEA Verified 07/04/24 17:30 Assessment & Plan Assessment & Plan (1) Schizoaffective disorder, bipolar type: Status: Acute Code(s): F25.0 - Schizoaffective disorder, bipolar type (2) Opioid use disorder: Status: Acute Code(s): F11.90 - Opioid use, unspecified, uncomplicated (3) Cocaine use disorder: Status: Acute Code(s): F14.10 - Cocaine abuse, uncomplicated Plan Patient is a 29-year-old male with history of schizoaffective disorder, opiate use disorder, cocaine use disorder who presented to ER via ambulance due to agitation at home secondary to medication noncompliance and substance use. Plan: 15 minute safety checks Continue home medications (medications verified via XIAO Palomino who contacted [facility] pharmacy.) obtain collateral Addiction medicine consult Encourage medication compliance Encourage groups Discharge planning 07/06: stable presentation. no complaints, concerns, or requests. continue current mgmt. 07/07 keep same treatment. 07/08 keep same treatment 07/09: Active on unit, keeping to self. appears to be responding to internal stimuli, smiling to self and giggling at times, however denies AH/VH. Pt reports feeling good today; agreed to having labs drawn today. denies SI/HI. Depakote level 106.3 and ammonia level 106. Start: lactulose 40gm PO daily decrease depakote to 750mg PO BID Patient educated on: medication risk/benefits Reason for continued inpatient stay Substantial Risk for: med/psych decompensation Time Spent With Patient Time: Total time managing care of this patient today _20___ minutes.
[2024-07-09] MEDS: hydrOXYzine HCL 25 MG TABLET PO ×2 (12:16→19:22)
[2024-07-09 13:23] LABS: Valproate 106.3 mcg/mL (50.0-100.0)
[2024-07-09 13:27] LABS: Alanine Aminotransferase 25 U/L (0-40); Albumin Level 4.2 g/dL (3.5-5.0); Alkaline Phosphatase 77 U/L (39-117); Ammonia 106 umol/L (13-55); Aspartate Amino Transferase 20 U/L (5-37); Bilirubin Direct 0.1 mg/dL (0.0-0.5); Bilirubin Total 0.3 mg/dL (0.0-1.0); Total Protein 6.8 g/dL (6.5-8.0)
[2024-07-09] MEDS: Lactulose 20 GM/30 ML SOLUTION 40 GM PO (14:33)
[2024-07-09] MEDS: Divalproex Sodium 250 MG TABLET.DR 750 MG PO (20:31)
[2024-07-09] MEDS: Mirtazapine 7.5 MG TABLET PO (20:32)
[2024-07-09] MEDS: OLANZapine 10 MG TABLET PO (20:32)
[2024-07-10 07:48] VITALS: BP 115/68; PULSE 97; RESP 18; TEMP 36.8; O2SAT 98
[2024-07-10] MEDS: Divalproex Sodium 250 MG TABLET.DR 750 MG PO (08:52)
[2024-07-10] MEDS: busPIRone HCl 10 MG TABLET PO ×2 (08:52→15:43)
[2024-07-10] MEDS: Benztropine Mesylate 1 MG TABLET PO (08:52)
[2024-07-10] MEDS: Baclofen 10 MG TABLET PO (08:52)
[2024-07-10] MEDS: Lactulose 20 GM/30 ML SOLUTION 40 GM PO (08:52)
[2024-07-10] MEDS: Acetaminophen 325 MG TABLET 650 MG PO ×2 (09:10→20:59)
--- NOTE | 2024-07-10 09:58 | P.PNPSI_ITS ---
Subjective Subjective Date of Service: 07/10/24 Reason For Visit: Depressed Subjective Notes: Conditional Voluntary Interim History: Continues similar to yesterday.pacing unit hallway. appears to be responding to internal stimuli, continues to deny AH/VH. Pt reports feeling good ; labs to be redrawn today. Awaiting lab results. denies SI/HI. Medication Compliance: Yes Side effects from medications: No Attending Groups: No Mental Status Exam Mental Status Exam Narrative: Pt is alert and oriented; behavior is cooperative, calm, guarded; dressed in casual attire; mood is described as good ; eye contact appropriate; Speech is normal rate, volume and not pressured; thought process is organized; appears to be responding to internal stimuli however, denies AH/VH; denies SI/HI. Diagnostics Vital Signs (24Hr): Vital Signs - 24 hr 07/10/24 07:48 Temperature 98.2 F Pulse Rate 97 Respiratory Rate 18 Blood Pressure 115/68 Pulse Oximetry 98 Oxygen Delivery Method Room Air BMI result Body Mass Index 24.4 Labs 07/04/24 18:05 07/04/24 18:05 Labs: Laboratory Results - last 48 hr 07/09/24 12:59 Total Bilirubin 0.3 Direct Bilirubin 0.1 AST 20 ALT 25 Alkaline Phosphatase 77 Ammonia 106 H Total Protein 6.8 Albumin 4.2 Valproic Acid 106.3 H Medications Medications Current Medications Acetaminophen (Acetaminophen 325 Mg Tablet) 650 mg PO Q6H PRN PRN Reason: Headache/Pain, Scale 1-10 Last Admin: 07/10/24 09:10 Dose: 650 mg Al Hydroxide/Mg Hydroxide (Magnesium Hydrox/Alum Hydrox 30 Ml Oral.Susp) 30 ml PO Q6H PRN PRN Reason: Heartburn/Nausea Baclofen (Baclofen 10 Mg Tablet) 10 mg PO BID [facility] Last Admin: 07/10/24 08:52 Dose: 10 mg Benztropine Mesylate (Benztropine Mesylate 1 Mg Tablet) 1 mg PO BID [facility] Last Admin: 07/10/24 08:52 Dose: 1 mg Buspirone HCl (Buspirone Hcl 10 Mg Tablet) 10 mg PO TID [facility] Last Admin: 07/10/24 08:52 Dose: 10 mg Divalproex Sodium (Divalproex Sodium 250 Mg Tablet.) 750 mg PO BID [facility] Last Admin: 07/10/24 08:52 Dose: 750 mg Fluphenazine Decanoate (Fluphenazine Decanoate 25 Mg/Ml 5 Ml Vial) 37.5 mg IM Q14D@0900 [facility] Hydroxyzine HCl (Hydroxyzine Hcl 25 Mg Tablet) 25 mg PO Q6H PRN PRN Reason: mild anxiety Last Admin: 07/09/24 19:22 Dose: 25 mg Lactulose (Lactulose 20 Gm/30 Ml Solution) 40 gm PO DAILY [facility] Last Admin: 07/10/24 08:52 Dose: 40 gm Magnesium Hydroxide (Milk Of Magnesia 30 Ml Oral.Susp) 30 ml PO DAILY PRN PRN Reason: Constipation Mirtazapine (Mirtazapine 7.5 Mg Tablet) 7.5 mg PO BEDTIME [facility] Last Admin: 07/09/24 20:32 Dose: 7.5 mg Nicotine (Nicotine 21 Mg Patch.Td24) 21 mg TRANSDERMA DAILY PRN PRN Reason: smoking cessation Nicotine Polacrilex (Nicotine Polacrilex 2 Mg Gum) 4 mg BUCCAL Q2H PRN PRN Reason: Nicotine Cravings Olanzapine (Olanzapine 5 Mg Tablet) 5 mg PO TID PRN PRN Reason: agitation Last Admin: 07/08/24 14:09 Dose: 5 mg Olanzapine (Olanzapine 10 Mg Tablet) 10 mg PO BEDTIME [facility] Last Admin: 07/09/24 20:32 Dose: 10 mg Trazodone HCl (Trazodone Hcl 50 Mg Tablet) 50 mg PO BEDTIME MRX1 PRN PRN Reason: Insomnia Allergies Allergies Allergy/AdvReac Type Severity Reaction Status Date / Time morphine [MORPHINE] AdvReac Unknown NAUSEA Verified 07/04/24 17:30 Assessment & Plan Assessment & Plan (1) Schizoaffective disorder, bipolar type: Status: Acute Code(s): F25.0 - Schizoaffective disorder, bipolar type (2) Opioid use disorder: Status: Acute Code(s): F11.90 - Opioid use, unspecified, uncomplicated (3) Cocaine use disorder: Status: Acute Code(s): F14.10 - Cocaine abuse, uncomplicated Plan Patient is a 29-year-old male with history of schizoaffective disorder, opiate use disorder, cocaine use disorder who presented to ER via ambulance due to agitation at home secondary to medication noncompliance and substance use. Plan: CV 15 minute safety checks Continue home medications (medications verified via XIAO Palomino who contacted [facility] pharmacy.) obtain collateral Addiction medicine consult Encourage medication compliance Encourage groups Discharge planning 07/06: stable presentation. no complaints, concerns, or requests. continue current mgmt. 07/07 keep same treatment. 07/08 keep same treatment 07/09: Active on unit, keeping to self. appears to be responding to internal stimuli, smiling to self and giggling at times, however denies AH/VH. Pt reports feeling good today; agreed to having labs drawn today. denies SI/HI. Depakote level 106.3 and ammonia level 106. Start: lactulose 40gm PO daily decrease depakote to 750mg PO BID 07/10: Continues similar to yesterday.pacing unit hallway. appears to be responding to internal stimuli, continues to deny AH/VH. Pt reports feeling good ; labs to be redrawn today. Awaiting lab results. denies SI/HI. Patient educated on: diagnosis and medication risk/benefits Reason for continued inpatient stay Substantial Risk for: med/psych decompensation Time Spent With Patient Time: Total time managing care of this patient today _20___ minutes.
[2024-07-10 15:06] LABS: Ammonia 50 umol/L (13-55)
[2024-07-10] MEDS: hydrOXYzine HCL 25 MG TABLET PO (15:08)
[2024-07-10 15:21] LABS: Alanine Aminotransferase 34 U/L (0-40); Albumin Level 4.1 g/dL (3.5-5.0); Aspartate Amino Transferase 26 U/L (5-37); Bilirubin Direct 0.1 mg/dL (0.0-0.5); Bilirubin Total 0.3 mg/dL (0.0-1.0); Total Protein 6.7 g/dL (6.5-8.0)
[2024-07-10 15:50] LABS: Valproate 52.4 mcg/mL (50.0-100.0)
[2024-07-10 17:44] LABS: Alkaline Phosphatase 68 U/L (39-117)
[2024-07-10] MEDS: OLANZapine 5 MG TABLET PO (18:26)
[2024-07-10 20:42] VITALS: BP 119/66; PULSE 64; RESP 16; TEMP 36.8; O2SAT 100
[2024-07-11 07:51] VITALS: BP 118/56; PULSE 62; RESP 18; TEMP 36.4; O2SAT 98
[2024-07-11] MEDS: Divalproex Sodium 250 MG TABLET.DR 750 MG PO (08:49)
[2024-07-11] MEDS: Baclofen 10 MG TABLET PO (08:50)
[2024-07-11] MEDS: Lactulose 20 GM/30 ML SOLUTION 40 GM PO (08:50)
[2024-07-11] MEDS: busPIRone HCl 10 MG TABLET PO ×2 (08:50→14:29)
[2024-07-11] MEDS: Benztropine Mesylate 1 MG TABLET PO (08:50)
--- NOTE | 2024-07-11 09:54 | P.PNPSI_ITS ---
Subjective Subjective Date of Service: 07/11/24 Reason For Visit: Depressed Subjective Notes: Conditional Voluntary Interim History: Pacing unit hallway, keeping to self. 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 denies SI/HI/VH/AH. Per nursing, slept 6 hours last night. Valproic acid level 52.4 and ammonia level 50 on 07/10/24. Medication Compliance: Yes Side effects from medications: No Attending Groups: No Mental Status Exam Mental Status Exam Narrative: Pt is alert and oriented; behavior is cooperative, calm, guarded; dressed in casual attire; mood is described as good ; eye contact appropriate; Speech is normal rate, volume and not pressured; thought process is organized; focused on discharge; denies SI/HI/VH/AH. Diagnostics Vital Signs (24Hr): Vital Signs - 24 hr 07/10/24 20:42 07/11/24 07:51 Temperature 98.2 F 97.5 F Pulse Rate 64 62 Respiratory Rate 16 18 Blood Pressure 119/66 118/56 L Pulse Oximetry 100 98 Oxygen Delivery Method Room Air Room Air BMI result Body Mass Index 24.4 Labs 07/04/24 18:05 07/04/24 18:05 Labs: Laboratory Results - last 48 hr 07/09/24 07/10/24 12:59 14:54 Total Bilirubin 0.3 0.3 Direct Bilirubin 0.1 0.1 AST 20 26 ALT 25 34 Alkaline Phosphatase 77 68 Ammonia 106 H 50 Total Protein 6.8 6.7 Albumin 4.2 4.1 Valproic Acid 106.3 H 52.4 Medications Medications Current Medications Acetaminophen (Acetaminophen 325 Mg Tablet) 650 mg PO Q6H PRN PRN Reason: Headache/Pain, Scale 1-10 Last Admin: 07/10/24 20:59 Dose: 650 mg Al Hydroxide/Mg Hydroxide (Magnesium Hydrox/Alum Hydrox 30 Ml Oral.Susp) 30 ml PO Q6H PRN PRN Reason: Heartburn/Nausea Baclofen (Baclofen 10 Mg Tablet) 10 mg PO BID [facility] Last Admin: 07/11/24 08:50 Dose: 10 mg Benztropine Mesylate (Benztropine Mesylate 1 Mg Tablet) 1 mg PO BID [facility] Last Admin: 07/11/24 08:50 Dose: 1 mg Buspirone HCl (Buspirone Hcl 10 Mg Tablet) 10 mg PO TID [facility] Last Admin: 07/11/24 08:50 Dose: 10 mg Divalproex Sodium (Divalproex Sodium 250 Mg Tablet.Dr) 750 mg PO BID [facility] Last Admin: 07/11/24 08:49 Dose: 750 mg Fluphenazine Decanoate (Fluphenazine Decanoate 25 Mg/Ml 5 Ml Vial) 37.5 mg IM Q14D@0900 [facility] Hydroxyzine HCl (Hydroxyzine Hcl 25 Mg Tablet) 25 mg PO Q6H PRN PRN Reason: mild anxiety Last Admin: 07/10/24 15:08 Dose: 25 mg Lactulose (Lactulose 20 Gm/30 Ml Solution) 40 gm PO DAILY [facility] Last Admin: 07/11/24 08:50 Dose: 40 gm Magnesium Hydroxide (Milk Of Magnesia 30 Ml Oral.Susp) 30 ml PO DAILY PRN PRN Reason: Constipation Mirtazapine (Mirtazapine 7.5 Mg Tablet) 7.5 mg PO BEDTIME [facility] Last Admin: 07/10/24 22:55 Dose: Not Given Nicotine (Nicotine 21 Mg Patch.Td24) 21 mg TRANSDERMA DAILY PRN PRN Reason: smoking cessation Nicotine Polacrilex (Nicotine Polacrilex 2 Mg Gum) 4 mg BUCCAL Q2H PRN PRN Reason: Nicotine Cravings Olanzapine (Olanzapine 5 Mg Tablet) 5 mg PO TID PRN PRN Reason: agitation Last Admin: 07/10/24 18:26 Dose: 5 mg Olanzapine (Olanzapine 10 Mg Tablet) 10 mg PO BEDTIME [facility] Last Admin: 07/10/24 22:55 Dose: Not Given Trazodone HCl (Trazodone Hcl 50 Mg Tablet) 50 mg PO BEDTIME MRX1 PRN PRN Reason: Insomnia Allergies Allergies Allergy/AdvReac Type Severity Reaction Status Date / Time morphine [MORPHINE] AdvReac Unknown NAUSEA Verified 07/04/24 17:30 Assessment & Plan Assessment & Plan (1) Schizoaffective disorder, bipolar type: Status: Acute Code(s): F25.0 - Schizoaffective disorder, bipolar type (2) Opioid use disorder: Status: Acute Code(s): F11.90 - Opioid use, unspecified, uncomplicated (3) Cocaine use disorder: Status: Acute Code(s): F14.10 - Cocaine abuse, uncomplicated Plan Patient is a 29-year-old male with history of schizoaffective disorder, opiate use disorder, cocaine use disorder who presented to ER via ambulance due to agitation at home secondary to medication noncompliance and substance use. Plan: CV 15 minute safety checks Continue home medications (medications verified via XIAO Palomino who contacted [facility] pharmacy.) obtain collateral Addiction medicine consult Encourage medication compliance Encourage groups Discharge planning 07/06: stable presentation. no complaints, concerns, or requests. continue current mgmt. 07/07 keep same treatment. 07/08 keep same treatment 07/09: Active on unit, keeping to self. appears to be responding to internal stimuli, smiling to self and giggling at times, however denies AH/VH. Pt reports feeling good today; agreed to having labs drawn today. denies SI/HI. Depakote level 106.3 and ammonia level 106. Start: lactulose 40gm PO daily decrease depakote to 750mg PO BID 07/10: Continues similar to yesterday.pacing unit hallway. appears to be responding to internal stimuli, continues to deny AH/VH. Pt reports feeling good ; labs to be redrawn today. Awaiting lab results. denies SI/HI. 07/11: Pacing unit hallway, keeping to self. 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 denies SI/HI/VH/AH. Per nursing, slept 6 hours last night. Valproic acid level 52.4 and ammonia level 50 on 07/10/24. Patient educated on: diagnosis and medication risk/benefits Reason for continued inpatient stay Substantial Risk for: med/psych decompensation Time Spent With Patient Time: Total time managing care of this patient today _20___ minutes.
[2024-07-11] MEDS: Acetaminophen 325 MG TABLET 650 MG PO (11:49)
[2024-07-11] MEDS: OLANZapine 5 MG TABLET PO (16:24)
[2024-07-11 20:00] VITALS: BP 127/58; PULSE 90; RESP 16; TEMP 37.2; O2SAT 98
[2024-07-12 07:00] VITALS: BMI 25.2
[2024-07-12] MEDS: Benztropine Mesylate 1 MG TABLET PO ×2 (08:46→22:10)
[2024-07-12] MEDS: Divalproex Sodium 250 MG TABLET.DR 750 MG PO ×2 (08:46→22:09)
[2024-07-12] MEDS: Lactulose 20 GM/30 ML SOLUTION 40 GM PO (08:46)
[2024-07-12] MEDS: Baclofen 10 MG TABLET PO ×2 (08:46→22:10)
[2024-07-12] MEDS: busPIRone HCl 10 MG TABLET PO ×3 (08:46→22:10)
[2024-07-12] MEDS: Acetaminophen 325 MG TABLET 650 MG PO (11:22)
--- NOTE | 2024-07-12 12:00 | HO.PSYCHPN ---
Subjective Subjective Date of Service: 07/12/24 Reason For Visit: Depressed Subjective Notes: Conditional Voluntary Interim History: Pacing unit hallway. Continues to report feeling good ; refused medications last night, when asked why pt stated, I don't know why I didn't take them . Pt educated regarding medication compliance. denies SI/HI/VH/AH. Depakote level to be redrawn this weekend. Medication Compliance: Intermittent Side effects from medications: No Attending Groups: No Mental Status Exam Mental Status Exam Narrative: Pt is alert and oriented; behavior is cooperative, calm, guarded; dressed in casual attire; mood is described as good ; eye contact appropriate; Speech is normal rate, volume and not pressured; thought process is organized; focused on discharge; denies SI/HI/VH/AH. Diagnostics Vital Signs (24Hr): Vital Signs - 24 hr 07/11/24 20:00 Temperature 98.9 F Pulse Rate 90 Respiratory Rate 16 Blood Pressure 127/58 L Pulse Oximetry 98 Oxygen Delivery Method Room Air BMI result Body Mass Index 24.4 Labs 07/04/24 18:05 07/04/24 18:05 Labs: Laboratory Results - last 48 hr 07/10/24 14:54 Total Bilirubin 0.3 Direct Bilirubin 0.1 AST 26 ALT 34 Alkaline Phosphatase 68 Ammonia 50 Total Protein 6.7 Albumin 4.1 Valproic Acid 52.4 Medications Medications Current Medications Acetaminophen (Acetaminophen 325 Mg Tablet) 650 mg PO Q6H PRN PRN Reason: Headache/Pain, Scale 1-10 Last Admin: 07/12/24 11:22 Dose: 650 mg Al Hydroxide/Mg Hydroxide (Magnesium Hydrox/Alum Hydrox 30 Ml Oral.Susp) 30 ml PO Q6H PRN PRN Reason: Heartburn/Nausea Baclofen (Baclofen 10 Mg Tablet) 10 mg PO BID [facility] Last Admin: 07/12/24 08:46 Dose: 10 mg Benztropine Mesylate (Benztropine Mesylate 1 Mg Tablet) 1 mg PO BID [facility] Last Admin: 07/12/24 08:46 Dose: 1 mg Buspirone HCl (Buspirone Hcl 10 Mg Tablet) 10 mg PO TID [facility] Last Admin: 07/12/24 08:46 Dose: 10 mg Divalproex Sodium (Divalproex Sodium 250 Mg Tablet.) 750 mg PO BID [facility] Last Admin: 07/12/24 08:46 Dose: 750 mg Fluphenazine Decanoate (Fluphenazine Decanoate 25 Mg/Ml 5 Ml Vial) 37.5 mg IM Q14D@0900 [facility] Hydroxyzine HCl (Hydroxyzine Hcl 25 Mg Tablet) 25 mg PO Q6H PRN PRN Reason: mild anxiety Last Admin: 07/10/24 15:08 Dose: 25 mg Lactulose (Lactulose 20 Gm/30 Ml Solution) 40 gm PO DAILY [facility] Last Admin: 07/12/24 08:46 Dose: 40 gm Magnesium Hydroxide (Milk Of Magnesia 30 Ml Oral.Susp) 30 ml PO DAILY PRN PRN Reason: Constipation Mirtazapine (Mirtazapine 7.5 Mg Tablet) 7.5 mg PO BEDTIME [facility] Last Admin: 07/11/24 22:44 Dose: Not Given Nicotine (Nicotine 21 Mg Patch.Td24) 21 mg TRANSDERMA DAILY PRN PRN Reason: smoking cessation Nicotine Polacrilex (Nicotine Polacrilex 2 Mg Gum) 4 mg BUCCAL Q2H PRN PRN Reason: Nicotine Cravings Olanzapine (Olanzapine 5 Mg Tablet) 5 mg PO TID PRN PRN Reason: agitation Last Admin: 07/11/24 16:24 Dose: 5 mg Olanzapine (Olanzapine 10 Mg Tablet) 10 mg PO BEDTIME [facility] Last Admin: 07/11/24 22:44 Dose: Not Given Trazodone HCl (Trazodone Hcl 50 Mg Tablet) 50 mg PO BEDTIME MRX1 PRN PRN Reason: Insomnia Allergies Allergies Allergy/AdvReac Type Severity Reaction Status Date / Time morphine [MORPHINE] AdvReac Unknown NAUSEA Verified 07/04/24 17:30 Assessment & Plan Assessment & Plan (1) Schizoaffective disorder, bipolar type: Status: Acute Code(s): F25.0 - Schizoaffective disorder, bipolar type (2) Opioid use disorder: Status: Acute Code(s): F11.90 - Opioid use, unspecified, uncomplicated (3) Cocaine use disorder: Status: Acute Code(s): F14.10 - Cocaine abuse, uncomplicated Plan Patient is a 29-year-old male with history of schizoaffective disorder, opiate use disorder, cocaine use disorder who presented to ER via ambulance due to agitation at home secondary to medication noncompliance and substance use. Plan: CV 15 minute safety checks Continue home medications (medications verified via XIAO Palomino who contacted [facility] pharmacy.) obtain collateral Addiction medicine consult Encourage medication compliance Encourage groups Discharge planning 07/06: stable presentation. no complaints, concerns, or requests. continue current mgmt. 07/07 keep same treatment. 07/08 keep same treatment 07/09: Active on unit, keeping to self. appears to be responding to internal stimuli, smiling to self and giggling at times, however denies AH/VH. Pt reports feeling good today; agreed to having labs drawn today. denies SI/HI. Depakote level 106.3 and ammonia level 106. Start: lactulose 40gm PO daily decrease depakote to 750mg PO BID 07/10: Continues similar to yesterday.pacing unit hallway. appears to be responding to internal stimuli, continues to deny AH/VH. Pt reports feeling good ; labs to be redrawn today. Awaiting lab results. denies SI/HI. 07/11: Pacing unit hallway, keeping to self. 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 denies SI/HI/VH/AH. Per nursing, slept 6 hours last night. Valproic acid level 52.4 and ammonia level 50 on 07/10/24. 07/12: Pacing unit hallway. Continues to report feeling good ; refused medications last night, when asked why pt stated, I don't know why I didn't take them . Pt educated regarding medication compliance. denies SI/HI/VH/AH. Depakote level to be redrawn this weekend. Patient educated on: diagnosis and medication risk/benefits Reason for continued inpatient stay Substantial Risk for: med/psych decompensation Time Spent With Patient Time: Total time managing care of this patient today _20___ minutes.
[2024-07-12] MEDS: OLANZapine 5 MG TABLET PO (18:36)
[2024-07-12 19:46] VITALS: BP 126/73; PULSE 86; RESP 18; TEMP 36.8; O2SAT 98
[2024-07-12] MEDS: OLANZapine 10 MG TABLET PO (22:10)
[2024-07-12] MEDS: Mirtazapine 7.5 MG TABLET PO (22:10)
[2024-07-13] MEDS: Benztropine Mesylate 1 MG TABLET PO ×2 (08:33→20:11)
[2024-07-13] MEDS: Baclofen 10 MG TABLET PO ×2 (08:33→20:11)
[2024-07-13] MEDS: busPIRone HCl 10 MG TABLET PO ×3 (08:34→20:11)
[2024-07-13] MEDS: Divalproex Sodium 250 MG TABLET.DR 750 MG PO ×2 (08:34→20:11)
[2024-07-13] MEDS: Lactulose 20 GM/30 ML SOLUTION 40 GM PO (08:34)
[2024-07-13] MEDS: OLANZapine 5 MG TABLET PO (11:35)
--- NOTE | 2024-07-13 12:21 | P.PNPSI_ITS ---
Subjective Subjective Date of Service: 07/13/24 Reason For Visit: Depressed Subjective Notes: Conditional Voluntary Interim History: Pacing unit hallway. Continues to report feeling good ; he is hoping for discharge soon. medication compliant. denies SI/HI/VH/AH. Valproic acid level, ammonia and liver panel ordered for 07/15/24. Medication Compliance: Yes Side effects from medications: No Attending Groups: No Mental Status Exam Mental Status Exam Narrative: Pt is alert and oriented; behavior is cooperative, calm, guarded; dressed in casual attire; mood is described as good ; eye contact appropriate; Speech is normal rate, volume and not pressured; thought process is organized; focused on discharge; denies SI/HI/VH/AH. Diagnostics Vital Signs (24Hr): Vital Signs - 24 hr 07/12/24 19:46 Temperature 98.3 F Pulse Rate 86 Respiratory Rate 18 Blood Pressure 126/73 Pulse Oximetry 98 Oxygen Delivery Method Room Air BMI result Body Mass Index 25.2 Labs 07/04/24 18:05 07/04/24 18:05 Medications Medications Current Medications Acetaminophen (Acetaminophen 325 Mg Tablet) 650 mg PO Q6H PRN PRN Reason: Headache/Pain, Scale 1-10 Last Admin: 07/12/24 11:22 Dose: 650 mg Al Hydroxide/Mg Hydroxide (Magnesium Hydrox/Alum Hydrox 30 Ml Oral.Susp) 30 ml PO Q6H PRN PRN Reason: Heartburn/Nausea Baclofen (Baclofen 10 Mg Tablet) 10 mg PO BID [facility] Last Admin: 07/13/24 08:33 Dose: 10 mg Benztropine Mesylate (Benztropine Mesylate 1 Mg Tablet) 1 mg PO BID [facility] Last Admin: 07/13/24 08:33 Dose: 1 mg Buspirone HCl (Buspirone Hcl 10 Mg Tablet) 10 mg PO TID [facility] Last Admin: 07/13/24 08:34 Dose: 10 mg Divalproex Sodium (Divalproex Sodium 250 Mg Tablet.) 750 mg PO BID [facility] Last Admin: 07/13/24 08:34 Dose: 750 mg Fluphenazine Decanoate (Fluphenazine Decanoate 25 Mg/Ml 5 Ml Vial) 37.5 mg IM Q14D@0900 [facility] Hydroxyzine HCl (Hydroxyzine Hcl 25 Mg Tablet) 25 mg PO Q6H PRN PRN Reason: mild anxiety Last Admin: 07/10/24 15:08 Dose: 25 mg Lactulose (Lactulose 20 Gm/30 Ml Solution) 40 gm PO DAILY [facility] Last Admin: 07/13/24 08:34 Dose: 40 gm Magnesium Hydroxide (Milk Of Magnesia 30 Ml Oral.Susp) 30 ml PO DAILY PRN PRN Reason: Constipation Mirtazapine (Mirtazapine 7.5 Mg Tablet) 7.5 mg PO BEDTIME [facility] Last Admin: 07/12/24 22:10 Dose: 7.5 mg Nicotine (Nicotine 21 Mg Patch.Td24) 21 mg TRANSDERMA DAILY PRN PRN Reason: smoking cessation Nicotine Polacrilex (Nicotine Polacrilex 2 Mg Gum) 4 mg BUCCAL Q2H PRN PRN Reason: Nicotine Cravings Olanzapine (Olanzapine 5 Mg Tablet) 5 mg PO TID PRN PRN Reason: agitation Last Admin: 07/13/24 11:35 Dose: 5 mg Olanzapine (Olanzapine 10 Mg Tablet) 10 mg PO BEDTIME [facility] Last Admin: 07/12/24 22:10 Dose: 10 mg Trazodone HCl (Trazodone Hcl 50 Mg Tablet) 50 mg PO BEDTIME MRX1 PRN PRN Reason: Insomnia Allergies Allergies Allergy/AdvReac Type Severity Reaction Status Date / Time morphine [MORPHINE] AdvReac Unknown NAUSEA Verified 07/04/24 17:30 Assessment & Plan Assessment & Plan (1) Schizoaffective disorder, bipolar type: Status: Acute Code(s): F25.0 - Schizoaffective disorder, bipolar type (2) Opioid use disorder: Status: Acute Code(s): F11.90 - Opioid use, unspecified, uncomplicated (3) Cocaine use disorder: Status: Acute Code(s): F14.10 - Cocaine abuse, uncomplicated Plan Patient is a 29-year-old male with history of schizoaffective disorder, opiate use disorder, cocaine use disorder who presented to ER via ambulance due to agitation at home secondary to medication noncompliance and substance use. Plan: 15 minute safety checks Continue home medications (medications verified via XIAO Palomino who contacted [facility] pharmacy.) obtain collateral Addiction medicine consult Encourage medication compliance Encourage groups Discharge planning 07/06: stable presentation. no complaints, concerns, or requests. continue current mgmt. 07/07 keep same treatment. 07/08 keep same treatment 07/09: Active on unit, keeping to self. appears to be responding to internal stimuli, smiling to self and giggling at times, however denies AH/VH. Pt reports feeling good today; agreed to having labs drawn today. denies SI/HI. Depakote level 106.3 and ammonia level 106. Start: lactulose 40gm PO daily decrease depakote to 750mg PO BID 07/10: Continues similar to yesterday.pacing unit hallway. appears to be responding to internal stimuli, continues to deny AH/VH. Pt reports feeling good ; labs to be redrawn today. Awaiting lab results. denies SI/HI. 07/11: Pacing unit hallway, keeping to self. 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 denies SI/HI/VH/AH. Per nursing, slept 6 hours last night. Valproic acid level 52.4 and ammonia level 50 on 07/10/24. 07/12: Pacing unit hallway. Continues to report feeling good ; refused medications last night, when asked why pt stated, I don't know why I didn't take them . Pt educated regarding medication compliance. denies SI/HI/VH/AH. Depakote level to be redrawn this weekend. 07/13: Continues to report feeling good ; he is hoping for discharge soon. medication compliant. denies SI/HI/VH/AH. Valproic acid level, ammonia and liver panel ordered for 07/15/24. Patient educated on: medication risk/benefits Reason for continued inpatient stay Substantial Risk for: med/psych decompensation Time Spent With Patient Time: Total time managing care of this patient today _20___ minutes.
[2024-07-13] MEDS: Acetaminophen 325 MG TABLET 650 MG PO (16:42)
[2024-07-13 20:00] VITALS: BP 119/65; PULSE 80; RESP 16; TEMP 36.9; O2SAT 98
[2024-07-13] MEDS: Mirtazapine 7.5 MG TABLET PO (20:11)
[2024-07-13] MEDS: OLANZapine 10 MG TABLET PO (20:11)
[2024-07-13] MEDS: hydrOXYzine HCL 25 MG TABLET PO (20:59)
[2024-07-14] MEDS: Acetaminophen 325 MG TABLET 650 MG PO ×2 (02:44→11:09)
[2024-07-14 07:25] VITALS: BP 109/57; PULSE 72; RESP 14; TEMP 36.7; O2SAT 98
[2024-07-14] MEDS: busPIRone HCl 10 MG TABLET PO ×3 (09:03→21:01)
[2024-07-14] MEDS: Divalproex Sodium 250 MG TABLET.DR 750 MG PO ×2 (09:03→21:01)
[2024-07-14] MEDS: Baclofen 10 MG TABLET PO ×2 (09:03→21:02)
[2024-07-14] MEDS: Lactulose 20 GM/30 ML SOLUTION 40 GM PO (09:03)
[2024-07-14] MEDS: Benztropine Mesylate 1 MG TABLET PO ×2 (09:03→21:02)
--- NOTE | 2024-07-14 11:03 | P.PNPSI_ITS ---
Subjective Subjective Date of Service: 07/14/24 Reason For Visit: Depressed Subjective Notes: Conditional Voluntary Interim History: Pt denies any concerns, including when asked if he was able to sleep, which according to nursing, pt only slept 2hrs. When asked if he would agree to further medication changes, he declines. He appears guarded, not forthcoming with extend of delusional content. Per staff observed self dialoguing. taking medications as prescribed. Review of Systems Review of Systems Yes all other systems are reviewed and are negative Mental Status Exam Mental Status Exam Narrative: Pt is alert, guarded, not oriented to situation. behavior is guarded, superficially cooperative; dressed in casual attire; mood is described as good ; eye contact appropriate; Speech is normal rate, volume and not pressured; thought process is thought blocking. Although he denies VH/AH, he is internally preoccupied. paranoid delusions. Diagnostics Vital Signs (24Hr): Vital Signs - 24 hr 07/13/24 20:00 07/14/24 07:25 Temperature 98.4 F 98.0 F Pulse Rate 80 72 Respiratory Rate 16 14 Blood Pressure 119/65 109/57 L Pulse Oximetry 98 98 Oxygen Delivery Method Room Air Room Air BMI result Body Mass Index 25.2 Labs 07/04/24 18:05 07/04/24 18:05 Medications Medications Current Medications Acetaminophen (Acetaminophen 325 Mg Tablet) 650 mg PO Q6H PRN PRN Reason: Headache/Pain, Scale 1-10 Last Admin: 07/14/24 02:44 Dose: 650 mg Al Hydroxide/Mg Hydroxide (Magnesium Hydrox/Alum Hydrox 30 Ml Oral.Susp) 30 ml PO Q6H PRN PRN Reason: Heartburn/Nausea Baclofen (Baclofen 10 Mg Tablet) 10 mg PO BID [facility] Last Admin: 07/14/24 09:03 Dose: 10 mg Benztropine Mesylate (Benztropine Mesylate 1 Mg Tablet) 1 mg PO BID [facility] Last Admin: 07/14/24 09:03 Dose: 1 mg Buspirone HCl (Buspirone Hcl 10 Mg Tablet) 10 mg PO TID [facility] Last Admin: 07/14/24 09:03 Dose: 10 mg Divalproex Sodium (Divalproex Sodium 250 Mg Tablet.) 750 mg PO BID [facility] Last Admin: 07/14/24 09:03 Dose: 750 mg Fluphenazine Decanoate (Fluphenazine Decanoate 25 Mg/Ml 5 Ml Vial) 37.5 mg IM Q14D@0900 [facility] Hydroxyzine HCl (Hydroxyzine Hcl 25 Mg Tablet) 25 mg PO Q6H PRN PRN Reason: mild anxiety Last Admin: 07/13/24 20:59 Dose: 25 mg Lactulose (Lactulose 20 Gm/30 Ml Solution) 40 gm PO DAILY [facility] Last Admin: 07/14/24 09:03 Dose: 40 gm Magnesium Hydroxide (Milk Of Magnesia 30 Ml Oral.Susp) 30 ml PO DAILY PRN PRN Reason: Constipation Mirtazapine (Mirtazapine 7.5 Mg Tablet) 7.5 mg PO BEDTIME [facility] Last Admin: 07/13/24 20:11 Dose: 7.5 mg Nicotine (Nicotine 21 Mg Patch.Td24) 21 mg TRANSDERMA DAILY PRN PRN Reason: smoking cessation Nicotine Polacrilex (Nicotine Polacrilex 2 Mg Gum) 4 mg BUCCAL Q2H PRN PRN Reason: Nicotine Cravings Olanzapine (Olanzapine 5 Mg Tablet) 5 mg PO TID PRN PRN Reason: agitation Last Admin: 07/13/24 11:35 Dose: 5 mg Olanzapine (Olanzapine 10 Mg Tablet) 10 mg PO BEDTIME [facility] Last Admin: 07/13/24 20:11 Dose: 10 mg Trazodone HCl (Trazodone Hcl 50 Mg Tablet) 50 mg PO BEDTIME MRX1 PRN PRN Reason: Insomnia Allergies Allergies Allergy/AdvReac Type Severity Reaction Status Date / Time morphine [MORPHINE] AdvReac Unknown NAUSEA Verified 07/04/24 17:30 Assessment & Plan Assessment & Plan (1) Schizoaffective disorder, bipolar type: Status: Acute Code(s): F25.0 - Schizoaffective disorder, bipolar type (2) Opioid use disorder: Status: Acute Code(s): F11.90 - Opioid use, unspecified, uncomplicated (3) Cocaine use disorder: Status: Acute Code(s): F14.10 - Cocaine abuse, uncomplicated Plan Patient is a 29-year-old male with history of schizoaffective disorder, opiate use disorder, cocaine use disorder who presented to ER via ambulance due to agitation at home secondary to medication noncompliance and substance use. Plan: CV 15 minute safety checks 07/06: stable presentation. no complaints, concerns, or requests. continue current mgmt. 07/07 keep same treatment. 07/08 keep same treatment 07/09: Active on unit, keeping to self. appears to be responding to internal stimuli, smiling to self and giggling at times, however denies AH/VH. Pt reports feeling good today; agreed to having labs drawn today. denies SI/HI. Depakote level 106.3 and ammonia level 106. Start: lactulose 40gm PO daily decrease depakote to 750mg PO BID 07/10: Continues similar to yesterday.pacing unit hallway. appears to be responding to internal stimuli, continues to deny AH/VH. Pt reports feeling good ; labs to be redrawn today. Awaiting lab results. denies SI/HI. 07/11: Pacing unit hallway, keeping to self. 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 denies SI/HI/VH/AH. Per nursing, slept 6 hours last night. Valproic acid level 52.4 and ammonia level 50 on 07/10/24. 07/12: Pacing unit hallway. Continues to report feeling good ; refused medications last night, when asked why pt stated, I don't know why I didn't take them . Pt educated regarding medication compliance. denies SI/HI/VH/AH. Depakote level to be redrawn this weekend. 07/13: Continues to report feeling good ; he is hoping for discharge soon. medication compliant. denies SI/HI/VH/AH. Valproic acid level, ammonia and liver panel ordered for 07/15/24. 07/14 continue tx. paranoid, not forthcoming. taking medications. no aggression. Reason for continued inpatient stay Substantial Risk for: inability to function Time Spent With Patient Time: Total time managing care of this patient today ____ minutes.
[2024-07-14] MEDS: Magnesium Hydrox/Alum Hydrox 30 ML ORAL.SUSP PO (11:08)
[2024-07-14] MEDS: OLANZapine 5 MG TABLET PO (15:15)
[2024-07-14] MEDS: hydrOXYzine HCL 25 MG TABLET PO (18:30)
[2024-07-14 20:00] VITALS: BP 108/55; PULSE 88; RESP 20; TEMP 36.9; O2SAT 99
[2024-07-14] MEDS: Mirtazapine 7.5 MG TABLET PO (21:01)
[2024-07-14] MEDS: OLANZapine 10 MG TABLET PO (21:02)
[2024-07-15 08:00] VITALS: BP 124/80; PULSE 60; TEMP 36.8; O2SAT 97
[2024-07-15] MEDS: Divalproex Sodium 250 MG TABLET.DR 750 MG PO ×2 (08:47→22:31)
[2024-07-15] MEDS: Baclofen 10 MG TABLET PO ×2 (08:47→22:30)
[2024-07-15] MEDS: busPIRone HCl 10 MG TABLET PO ×3 (08:47→22:31)
[2024-07-15] MEDS: Benztropine Mesylate 1 MG TABLET PO ×2 (08:47→22:31)
[2024-07-15] MEDS: Lactulose 20 GM/30 ML SOLUTION 40 GM PO (08:47)
--- NOTE | 2024-07-15 11:41 | P.PNPSI_ITS ---
Subjective Subjective Date of Service: 07/15/24 Reason For Visit: Depressed Interim History: Pt denies any concerns, including when asked if he was able to sleep, which according to nursing, pt only slept 2hrs. When asked if he would agree to further medication changes, he declines. He appears guarded, not forthcoming with extend of delusional content. Per staff observed self dialoguing. taking medications as prescribed. Review of Systems Review of Systems Yes all other systems are reviewed and are negative Mental Status Exam Mental Status Exam Narrative: Pt is alert, guarded, not oriented to situation. behavior is guarded, superficially cooperative; dressed in casual attire; mood is described as good ; eye contact appropriate; Speech is normal rate, volume and not pressured; thought process is thought blocking. Although he denies VH/AH, he is internally preoccupied. paranoid delusions. Diagnostics Vital Signs (24Hr): Vital Signs - 24 hr 07/14/24 20:00 07/15/24 08:00 Temperature 98.5 F 98.2 F Pulse Rate 88 60 Respiratory Rate 20 Blood Pressure 108/55 L 124/80 Pulse Oximetry 99 97 Oxygen Delivery Method Room Air Room Air BMI result Body Mass Index 25.2 Labs 07/04/24 18:05 07/04/24 18:05 Medications Medications Current Medications Acetaminophen (Acetaminophen 325 Mg Tablet) 650 mg PO Q6H PRN PRN Reason: Headache/Pain, Scale 1-10 Last Admin: 07/14/24 11:09 Dose: 650 mg Al Hydroxide/Mg Hydroxide (Magnesium Hydrox/Alum Hydrox 30 Ml Oral.Susp) 30 ml PO Q6H PRN PRN Reason: Heartburn/Nausea Last Admin: 07/14/24 11:08 Dose: 30 ml Baclofen (Baclofen 10 Mg Tablet) 10 mg PO BID [facility] Last Admin: 07/15/24 08:47 Dose: 10 mg Benztropine Mesylate (Benztropine Mesylate 1 Mg Tablet) 1 mg PO BID [facility] Last Admin: 07/15/24 08:47 Dose: 1 mg Buspirone HCl (Buspirone Hcl 10 Mg Tablet) 10 mg PO TID [facility] Last Admin: 07/15/24 08:47 Dose: 10 mg Divalproex Sodium (Divalproex Sodium 250 Mg Tablet.) 750 mg PO BID [facility] Last Admin: 07/15/24 08:47 Dose: 750 mg Fluphenazine Decanoate (Fluphenazine Decanoate 25 Mg/Ml 5 Ml Vial) 37.5 mg IM Q14D@0900 [facility] Hydroxyzine HCl (Hydroxyzine Hcl 25 Mg Tablet) 25 mg PO Q6H PRN PRN Reason: mild anxiety Last Admin: 07/14/24 18:30 Dose: 25 mg Lactulose (Lactulose 20 Gm/30 Ml Solution) 40 gm PO DAILY [facility] Last Admin: 07/15/24 08:47 Dose: 40 gm Magnesium Hydroxide (Milk Of Magnesia 30 Ml Oral.Susp) 30 ml PO DAILY PRN PRN Reason: Constipation Mirtazapine (Mirtazapine 7.5 Mg Tablet) 7.5 mg PO BEDTIME [facility] Last Admin: 07/14/24 21:01 Dose: 7.5 mg Nicotine (Nicotine 21 Mg Patch.Td24) 21 mg TRANSDERMA DAILY PRN PRN Reason: smoking cessation Nicotine Polacrilex (Nicotine Polacrilex 2 Mg Gum) 4 mg BUCCAL Q2H PRN PRN Reason: Nicotine Cravings Olanzapine (Olanzapine 5 Mg Tablet) 5 mg PO TID PRN PRN Reason: agitation Last Admin: 07/14/24 15:15 Dose: 5 mg Olanzapine (Olanzapine 10 Mg Tablet) 10 mg PO BEDTIME [facility] Last Admin: 07/14/24 21:02 Dose: 10 mg Trazodone HCl (Trazodone Hcl 50 Mg Tablet) 50 mg PO BEDTIME MRX1 PRN PRN Reason: Insomnia Allergies Allergies Allergy/AdvReac Type Severity Reaction Status Date / Time morphine [MORPHINE] AdvReac Unknown NAUSEA Verified 07/04/24 17:30 Assessment & Plan Assessment & Plan (1) Schizoaffective disorder, bipolar type: Status: Acute Code(s): F25.0 - Schizoaffective disorder, bipolar type (2) Opioid use disorder: Status: Acute Code(s): F11.90 - Opioid use, unspecified, uncomplicated (3) Cocaine use disorder: Status: Acute Code(s): F14.10 - Cocaine abuse, uncomplicated Plan Patient is a 29-year-old male with history of schizoaffective disorder, opiate use disorder, cocaine use disorder who presented to ER via ambulance due to agitation at home secondary to medication noncompliance and substance use. Plan: CV 15 minute safety checks 07/06: stable presentation. no complaints, concerns, or requests. continue current mgmt. 07/07 keep same treatment. 07/08 keep same treatment 07/09: Active on unit, keeping to self. appears to be responding to internal stimuli, smiling to self and giggling at times, however denies AH/VH. Pt reports feeling good today; agreed to having labs drawn today. denies SI/HI. Depakote level 106.3 and ammonia level 106. Start: lactulose 40gm PO daily decrease depakote to 750mg PO BID 07/10: Continues similar to yesterday.pacing unit hallway. appears to be responding to internal stimuli, continues to deny AH/VH. Pt reports feeling good ; labs to be redrawn today. Awaiting lab results. denies SI/HI. 07/11: Pacing unit hallway, keeping to self. 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 denies SI/HI/VH/AH. Per nursing, slept 6 hours last night. Valproic acid level 52.4 and ammonia level 50 on 07/10/24. 07/12: Pacing unit hallway. Continues to report feeling good ; refused medications last night, when asked why pt stated, I don't know why I didn't take them . Pt educated regarding medication compliance. denies SI/HI/VH/AH. Depakote level to be redrawn this weekend. 07/13: Continues to report feeling good ; he is hoping for discharge soon. medication compliant. denies SI/HI/VH/AH. Valproic acid level, ammonia and liver panel ordered for 07/15/24. 07/14 continue tx. paranoid, not forthcoming. taking medications. no aggression. 07/15 continue tx. Reason for continued inpatient stay Substantial Risk for: inability to function Time Spent With Patient Time: Total time managing care of this patient today ____ minutes.
[2024-07-15] MEDS: hydrOXYzine HCL 25 MG TABLET PO (18:56)
[2024-07-15] MEDS: OLANZapine 5 MG TABLET PO (19:56)
[2024-07-15] MEDS: Acetaminophen 325 MG TABLET 650 MG PO (20:03)
[2024-07-15 20:26] VITALS: BP 108/66; PULSE 65; RESP 16; TEMP 36.8; O2SAT 100
[2024-07-15] MEDS: Mirtazapine 7.5 MG TABLET PO (22:30)
[2024-07-15] MEDS: OLANZapine 10 MG TABLET PO (22:30)
[2024-07-16 07:44] VITALS: BP 102/53; PULSE 71; RESP 18; TEMP 36.5; O2SAT 99
[2024-07-16] MEDS: Lactulose 20 GM/30 ML SOLUTION 40 GM PO (08:23)
[2024-07-16] MEDS: busPIRone HCl 10 MG TABLET PO (08:23)
[2024-07-16] MEDS: Benztropine Mesylate 1 MG TABLET PO (08:23)
[2024-07-16] MEDS: Divalproex Sodium 250 MG TABLET.DR 750 MG PO (08:23)
[2024-07-16] MEDS: Baclofen 10 MG TABLET PO (08:23)
[2024-07-16 09:46] LABS: Ammonia 68 umol/L (13-55)
[2024-07-16 09:51] LABS: Valproate 57.9 mcg/mL (50.0-100.0)
[2024-07-16 09:56] LABS: Alanine Aminotransferase 32 U/L (0-40); Albumin Level 4.4 g/dL (3.5-5.0); Alkaline Phosphatase 74 U/L (39-117); Aspartate Amino Transferase 16 U/L (5-37); Bilirubin Direct < 0.2 mg/dL (0.0-0.5); Bilirubin Total 0.2 mg/dL (0.0-1.0); Total Protein 7.1 g/dL (6.5-8.0)
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
[2024-07-16] MEDS: Naloxone HCl Nasal TAKE HOME 4 MG SPRAY 8 MG NOSTRILALT (10:07)
[2024-07-16] MEDS: hydrOXYzine HCL 25 MG TABLET PO (10:08)
== END 2024-07-16 11:00 | disposition home or self-care (01) | DRG 885 ==
LOC: HO.ED 18:14 → HO.PM5 21:46 → HO.PADLT16 22:05
PROVIDERS: Admitting Provider Psychiatry & Neurology Psychiatry; Emergency Provider Student in an Organized Health Care Education/Training Program; Responsible Provider Registered Nurse; Visit Provider Psychiatry & Neurology Psychiatry
DX: F25.0 Schizoaffective disorder, bipolar type (principal); F19.10 Other psychoactive substance abuse, uncomplicated; F14.10 Cocaine abuse, uncomplicated; F11.90 Opioid use, unspecified, uncomplicated; Z91.148 Patient's other noncompliance with medication regimen for other reason; Z79.899 Other long term (current) drug therapy
CPT/HCPCS: 36415; 73120; 80048; 80076; 80164; 80178; 80179; 80307; 82140; 85025; 93005; 99285; S9485

== ENCOUNTER → 2024-07-04 17:50 | Outpatient (BNV) | payer MEDICARE, MEDICAID, SELFPAY | PROVIDERS: Admitting Provider Psychiatry & Neurology Psychiatry; Emergency Provider Student in an Organized Health Care Education/Training Program; Responsible Provider Registered Nurse; Visit Provider Internal Medicine Cardiovascular Disease | DX: R00.1 Bradycardia, unspecified (principal) | CPT/HCPCS: 93010 ==

== ENCOUNTER → 2024-07-04 18:03 | Outpatient (BNV) | payer MEDICARE, MEDICAID, SELFPAY | PROVIDERS: Emergency Provider Student in an Organized Health Care Education/Training Program; Visit Provider Radiology Diagnostic Radiology | DX: M79.641 Pain in right hand (principal) | CPT/HCPCS: 73120 ==

== ENCOUNTER → 2024-07-04 21:34 | Outpatient (BNV) | payer MEDICARE, MEDICAID, SELFPAY | PROVIDERS: Admitting Provider Psychiatry & Neurology Psychiatry; Emergency Provider Student in an Organized Health Care Education/Training Program; Responsible Provider Registered Nurse; Visit Provider Registered Nurse | DX: F25.0 Schizoaffective disorder, bipolar type (principal); F14.10 Cocaine abuse, uncomplicated; F11.90 Opioid use, unspecified, uncomplicated | CPT/HCPCS: 90792; 99231; 99232; 99238 ==

== ENCOUNTER 2024-07-21 18:48 | Emergency (ER) | payer MEDICARE, MEDICAID, SELFPAY ==
[2024-07-21 18:54] VITALS: BP 126/72; PULSE 118; O2SAT 96
[2024-07-21 18:57] VITALS: BP 123/68; PULSE 99; RESP 14; TEMP 36.6; O2SAT 100; BMI 24.9
--- NOTE | 2024-07-21 19:09 | ED.OVERDOSE ---
HPI - Overdose General Chief Complaint: Overdose Stated Complaint: overdose, admits to one bag of heroine? Time Seen by Provider: 07/21/24 18:55 Source: patient, EMS, RN notes reviewed and old records reviewed Mode of arrival: EMS History of Present Illness ED Provider: Natalie Fragoso PA-C HPI Narrative: 29-year-old male with a past medical history substance abuse, PTSD, depression, anxiety, schizophrenic, bipolar, presenting to the ED via EMS s/p accidental overdose on heroin. Patient admits to snorting 1 bag. Patient given 8 mg of intranasal Narcan with positive result by EMS. Admits to nausea at present. Also reports marijuana use. Denies trauma/fall, headache, neck/back pain, SI/HI Related Data Previous Rx's ?Medication ?Instructions ?Recorded baclofen 10 mg tablet 10 mg PO BID 30 days #60 tabs 07/16/24 benztropine 1 mg tablet 1 mg PO BID 30 days #60 tabs 07/16/24 buspirone 10 mg tablet 10 mg PO TID 30 days #90 tabs 07/16/24 divalproex 250 mg tablet,delayed 750 mg (3 x 250 mg) PO BID 30 days 07/16/24 release #180 tabs lactulose 10 gram/15 mL oral 40 g (60 mL) PO DAILY 30 days 07/16/24 solution #1,800 mL mirtazapine 7.5 mg tablet 7.5 mg PO BEDTIME 30 days #30 tabs 07/16/24 olanzapine 10 mg tablet 10 mg PO BEDTIME 30 days #30 tabs 07/16/24 olanzapine 5 mg tablet 5 mg PO TID PRN agitation 30 days 07/16/24 #90 tabs Allergies Allergy/AdvReac Type Severity Reaction Status Date / Time morphine [MORPHINE] AdvReac Unknown NAUSEA Verified 07/21/24 19:08 Review of Systems Review of Systems: Yes all other systems are reviewed and are negative Constitutional: Constitutional: Reports as per HPI COUNT INCLUDES THE [facility] Past Medical History Attestation statement: The following information was validated with the patient. Source: old records reviewed Medical History Opioid use disorder Cocaine use disorder Nonspecific ST-T wave electrocardiographic changes Accidental overdose Polysubstance (including opioids) dependence, daily use PCP abuse PTSD (post-traumatic stress disorder) Schizoaffective disorder, bipolar type Suicidal behavior Depression Anxiety Schizophrenia Bipolar affective Schizophrenia Social History Social History Household Members: Family Housing: House Do you presently have visiting nurse or other home services: No Unable to assess alcohol history related to: Unknown Alcohol intake: current Alcohol intake frequency: 0-2 drinks per day Alcohol type: hard liquor Comment: currently asleep Patient Tobacco Use Status: Never used Tobacco Cigarette Packs Per Day: 0.25 Cigarettes Per Day: 5.0 Years Smoked: 10 Smoked in Last 30 Days: Yes e-Cigarette/Vaping Use: Never Used Second Hand Smoke Exposure: No Use of substances other than those prescribed or required for medical reasons: Yes Substance Use Type: Heroin Substance Use Frequency: Daily Last Used Substance: Just Prior to Admission Advance Directives: No Advance Directives Information Provided: Yes service: No Sexual orientation: Straight/Heterosexual Physical Exam Vital Signs: Vital Signs: Last Vital Signs Temp 97.4 F 07/21/24 23:33 Pulse 84 07/21/24 23:33 Resp 16 07/21/24 23:33 BP 118/76 07/21/24 23:33 Pulse Ox 98 07/21/24 23:33 O2 Del Method Room Air 07/21/24 23:33 BMI result Body Mass Index 24.9 Const: General: cooperative, healthy appearing and no acute distress Orientation/consciousness: patient oriented x3 Limitations: no limitations HEENT: Head: Yes normal to inspection and Yes atraumatic Ears: hearing grossly normal bilaterally General nose exam: Normal external nose present Face and sinus: Yes normal facial exam Eyes: General: appearance normal, both eyes and all related structures EOM: EOMs intact bilaterally Neck: Neck: Yes normal visual inspection and Yes no meningeal signs Resp: Effort & Inspection: normal respiratory effort and no respiratory distress Cardio: Rate: regular rate GI: Inspection: Yes normal to inspection Palpation (GI): Soft to palpation, nontender, no guarding and not rigid Back/Spine/Pelvis: Other: No midline cervical/thoracic/lumbar spinous tenderness/step-off or deformity Skin: Rashes: no rashes Wounds: no wounds Neuro: General: patient oriented x3, tone normal, moves all extremities, no meningeal signs, no focal motor deficits and CN's II-XI intact bilaterally Cranial nerves: Yes CN's II-XII intact bilaterally Cognition (Neuro): normal cognition Gait exam (Neuro): Normal gait present Extrem: General: Yes normal to inspection Psych: Thought content: suicidality and no homicidality Course Course Course Narrative: -patient has remained awake and alert. Safe for discharge home at this time. Will discharge with Narcan to go. Not interested in detox at this time Results discussed with patient including worrisome signs and symptoms and strict return precautions, and when to return to the emergency department. They verbalized understanding and feel safe for discharge at this time. Medications Administered Discontinued Medications Generic Name Dose Route Start Last Admin Trade Name Lgq PRN Reason Stop Dose Admin Naloxone HCl 8 mg 07/21/24 19:00 07/21/24 23:17 Naloxone Hcl Nasal Take Home 4 Mg [place] NOSTRILALT 07/21/24 19:01 8 mg ONCE ONE Administration Ondansetron HCl 4 mg 07/21/24 19:00 07/21/24 19:18 Ondansetron Odt 4 Mg Tab.Rapdis TRANSLINGU 07/21/24 19:01 4 mg ONCE ONE Administration Medical Decision Making Medical Decision Making [facility] Narrative: 29-year-old male with a past medical history substance abuse, PTSD, depression, anxiety, schizophrenic, bipolar, presenting to the ED via EMS s/p accidental overdose on heroin. On exam vital signs stable, NAD, nontoxic appearing, awake and alert, acting appropriate, no evidence of trauma. Concern for accidental overdose. Lower suspicion for ICH or fractures. Plan: Tox screen, Zofran, observe and re-evaluate for clinical sobriety Please refer to course for remaining clinical decision making, interpretation of labs/imaging results, and discussions with consultants and/or family members. Differential Diagnosis Differential Diagnoses: The differential diagnosis associated with the presentation includes As above Consult Healthcare Provider Management of the patient was discussed with: Behavioral Health Provider Lab Data [facility] Lab Attestation statement: I reviewed the patient's lab results. Independent Historian Clinical information obtained from an independent historian. History obtained from or confirmed by: EMS External Record Review External record reviewed: Inpatient record, Office record, Outpatient record, Prior outpatient labs, Prior outpatient radiology, Primary care record and Outside ED record Tests considered The following testing was considered but not selected: As above Prescription Management I considered prescription management with: Other Chronic Conditions Patient?s care impacted by: Other Social Determinants Patient?s care significantly limited by Social Determinants of Health including: Inadequate housing, Low income, Alcoholism and drug addiction in family, Problems related to primary support group, Unemployment and Other Social Determinant of Health Discharge Plan Discharge Clinical Impression: Drug overdose Patient Disposition: Home, Self-Care Instructions: Adult Overdose (ED) Additional Instructions: You are being discharged home with Narcan. Tetanus on you at all times. Avoid alcohol and drug use. You could have today Opiate use disorder You were seen in our Emergency Department today for treatment of opiate use disorder. You may have been dosed with medication for opiate use disorder (MOUD) in the form of suboxone or methadone. You may experience feeling some withdrawal symptoms and this is normal. The? dose in the Emergency Department is a starting dose and meant to be titrated up once you follow up with a clinic. Please do not feel discouraged, it is a process. The nurse has reviewed with you where to follow up and what information to bring with you, to continue treatment. You also may have been given naloxone (narcan) to take home with you. This medication is used to potentially treat opiate overdose. If you decide you want to stop or cut down on how much you?re using, you can call or walk into our outpatient Addiction Treatment office: [facility] (M-F 9am-5p) [address] [place] [address], [address] [phone] You may have been provided with safer injection?items, please take time to take care of YOU and your health. Use new supplies whenever possible to lessen the chances of infections and other illnesses.? ?If you need more supplies, please go [facility],? [address] [place] [address] [place] you can call or text to coordinate delivery of safer supplies. You were also provided a list of several treatment providers in the area.? If you experience any worsening symptoms you cannot control please return to the ED or call 911. Please follow up at your next appointment. Things to look out for are fevers, chest pain, shortness of breath, severe pain, dizziness, fainting or any other concerns. Overdose You were seen in our Emergency Department for an overdose today. You received narcan in order to reverse the effects of overdose. Narcan only lasts about 45 min to 1 hour in the system. You may have been given narcan to take home with you today, please keep it near you if you are going to use again, so others can use it if needed.? The number one risk for fatal overdose is using alone? [facility] is a 29/11 hotline where you can be on the phone with someone while you use, and they can call for help if they suspect an overdose: [phone] Things to look out for when you leave include severe vomiting or diarrhea, headaches, muscle cramps, fever, coughing, chest pain, or if you feel so short of breath you cannot walk to the bathroom. Please seek care and return any time for worsening symptoms.? You may have been provided with safer injection?items, please take time to take care of YOU and your health. Use new supplies whenever possible to lessen the chances of infections and other illnesses.? If you need more supplies, please go [facility],? [address] [place] [address] [place] you can call or text to coordinate delivery of safer supplies. If you decide you want to stop or cut down on how much you?re using, please call the numbers on the list provided to you or you can come to our outpatient Addiction Treatment office [facility] (M-F 9am-5p) [address] [place] [address], [address] [phone] Prescriptions: No Action baclofen 10 mg Tablet 10 mg PO BID 30 Days Qty: 60 0RF buspirone 10 mg Tablet 10 mg PO TID 30 Days Qty: 90 0RF mirtazapine 7.5 mg Tablet 7.5 mg PO BEDTIME 30 Days Qty: 30 0RF olanzapine 10 mg Tablet 10 mg PO BEDTIME 30 Days Qty: 30 0RF olanzapine 5 mg Tablet 5 mg PO TID PRN (Reason: agitation) 30 Days Qty: 90 0RF lactulose 10 gram/15 mL Solution 40 g PO DAILY 30 Days Qty: 1800 0RF divalproex 250 mg Tablet,Delayed Release (Dr/Ec) 750 mg PO BID 30 Days Qty: 180 0RF benztropine 1 mg Tablet 1 mg PO BID 30 Days Qty: 60 0RF Referrals: [facility] [Provider Group] [facility] [Outside] Interventions: ED Discharge Assessment Last Done: 07/21/24 23:33 Discharge Date/Time: 07/21/24 23:41 Print Language: Yi
[2024-07-21] MEDS: Ondansetron ODT 4 MG TAB.RAPDIS TRANSLINGU (19:18)
[2024-07-21 20:00] VITALS: BP 110/62; PULSE 83; RESP 12; TEMP 36.6; O2SAT 93
[2024-07-21 21:39] VITALS: BP 113/75; PULSE 67; RESP 12; TEMP 36.6; O2SAT 94
[2024-07-21 23:17] VITALS: BP 118/76; PULSE 84; RESP 16; TEMP 36.3; O2SAT 98
[2024-07-21] MEDS: Naloxone HCl Nasal TAKE HOME 4 MG SPRAY 8 MG NOSTRILALT (23:17)
--- NOTE | 2024-07-21 23:18 | PC.NURSE ---
Reviewed discharge instructions with pt, pt verbalized understanding.
[2024-07-21 23:33] VITALS: BP 118/76; PULSE 84; RESP 16; TEMP 36.3; O2SAT 98
== END 2024-07-21 23:41 | disposition home or self-care (01) ==
PROVIDERS: Emergency Provider Emergency Medicine
DX: T40.1X1A Poisoning by heroin, accidental (unintentional), initial encounter (principal); R11.0 Nausea; F11.20 Opioid dependence, uncomplicated; F14.10 Cocaine abuse, uncomplicated; Y92.9 Unspecified place or not applicable; F25.0 Schizoaffective disorder, bipolar type; F43.10 Post-traumatic stress disorder, unspecified
CPT/HCPCS: 99284

== ENCOUNTER 2024-08-04 18:37 | Emergency (ER) | payer MEDICARE, MEDICAID, SELFPAY ==
[2024-08-04 18:41] VITALS: BP 182/98; PULSE 88; O2SAT 100
[2024-08-04 18:43] VITALS: BP 141/68; PULSE 80; RESP 19; TEMP 36.6; O2SAT 100; BMI 30.4
--- NOTE | 2024-08-04 19:14 | ED.OVERDOSE ---
HPI - Overdose General Chief Complaint: Overdose Stated Complaint: OD. 8MG NARCAN GIVEN Time Seen by Provider: 08/04/24 18:38 Source: patient, EMS and old records reviewed Mode of arrival: EMS Limitations: no limitations History of Present Illness ED Provider: EDDY SALCIDO Narrative: 29 yo male with PMH of PTSD, cocaine and opiate abuse was using heroin today then was found unresponsive and woke up to 8mg narcan. He has no complaints and states no headache. He has no SI/HI and does not want detox. He has stable VS on arrival. 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) Timing confirmed by: other Context: Accidental Overdose: wanted to get high Treatments Prior to Arrival: narcan (8mg) Related Data Previous Rx's ?Medication ?Instructions ?Recorded baclofen 10 mg tablet 10 mg PO BID 30 days #60 tabs 07/16/24 benztropine 1 mg tablet 1 mg PO BID 30 days #60 tabs 07/16/24 buspirone 10 mg tablet 10 mg PO TID 30 days #90 tabs 07/16/24 divalproex 250 mg tablet,delayed 750 mg (3 x 250 mg) PO BID 30 days 07/16/24 release #180 tabs lactulose 10 gram/15 mL oral 40 g (60 mL) PO DAILY 30 days 07/16/24 solution #1,800 mL mirtazapine 7.5 mg tablet 7.5 mg PO BEDTIME 30 days #30 tabs 07/16/24 olanzapine 10 mg tablet 10 mg PO BEDTIME 30 days #30 tabs 07/16/24 olanzapine 5 mg tablet 5 mg PO TID PRN agitation 30 days 07/16/24 #90 tabs Allergies Allergy/AdvReac Type Severity Reaction Status Date / Time morphine [MORPHINE] AdvReac Unknown NAUSEA Verified 08/04/24 18:50 Review of Systems Review of Systems: Constitutional : No Fever, No Chills, No Fatigue ENT/Mouth : No sore throat, No Rhinorrhea Eyes: No Eye Pain, No Swelling, No Redness Cardiovascular : No Chest Pain, No SOB, No Dyspnea on Exertion Respiratory : No Cough, No Sputum Gastrointestinal : No Nausea, No Vomiting, No Diarrhea, No abdominal Pain Genitourinary : No Dysuria, No Urinary Frequency, No Hematuria, Musculoskeletal : No joint pain, No Myalgias, No Joint Swelling Skin : No Skin Lesions, No rash Neuro : No Weakness, No Numbness, No Dizziness, no Headache Psych : No Anxiety/Panic, No Depression All other systems reviewed and are negative [facility] Past Medical History Attestation statement: The following information was validated with the patient. Source: old records reviewed Medical History Behavior concern in adult Agitation Opioid use disorder Cocaine use disorder Nonspecific ST-T wave electrocardiographic changes Accidental overdose Polysubstance (including opioids) dependence, daily use PCP abuse PTSD (post-traumatic stress disorder) Schizoaffective disorder, bipolar type Suicidal behavior Depression Anxiety Schizophrenia Bipolar affective Schizophrenia Social History Social History Household Members: Family Housing: House Do you presently have visiting nurse or other home services: No Unable to assess alcohol history related to: Unknown Alcohol intake: current Alcohol intake frequency: 0-2 drinks per day Alcohol type: hard liquor Comment: currently asleep Patient Tobacco Use Status: Never used Tobacco Cigarette Packs Per Day: 0.25 Cigarettes Per Day: 5.0 Years Smoked: 10 e-Cigarette/Vaping Use: Never Used Second Hand Smoke Exposure: No Substance Use Type: Heroin Do you have a plan to hurt others: No Plan service: No Sexual orientation: Straight/Heterosexual Physical Exam Vital Signs: Vital Signs: Last Vital Signs Temp 97.9 F 08/04/24 18:43 Pulse 80 08/04/24 18:43 Resp 19 08/04/24 18:43 BP 141/68 H 08/04/24 18:43 Pulse Ox 100 08/04/24 18:43 O2 Del Method Room Air 08/04/24 18:43 BMI result Body Mass Index 30.4 Appearance: Alert. Oriented X3. No acute distress. Eyes: Pupils equal, round and reactive to light. ENT: Pharynx normal. Neck: Normal inspection. Neck supple. CVS: Normal heart rate and rhythm. Pulses normal. Respiratory: No respiratory distress. Breath sounds normal. Abdomen: Soft and nontender. Skin: Skin warm and dry. Normal skin color. Normal skin turgor. Extremities: No lower extremity edema. No calf ttp Neuro: Oriented X 3. No motor deficit. No sensory deficit. CN2-12 intact Medical Decision Making Medical Decision Making MDM Narrative: 29 yo male with PMH of PTSD, cocaine and opiate abuse here with c/o accidental overdose at this time GCS 15 no signs of head trauma does not want SUDE or detox - he has no SI/HI will order narcan to take him and allow him to leave once stable. Differential Diagnosis Differential Diagnoses: The differential diagnosis associated with the presentation includes opiate use disorder, overdose Admission/Observation Consideration of admission/observation: Escalation of care including admission/observation considered does not want CARE or recovery no medical complaints or head strike will observe until more awake Independent Historian Clinical information obtained from an independent historian. History obtained from or confirmed by: EMS External Record Review External record reviewed: Outpatient record Social Determinants Patient?s care significantly limited by Social Determinants of Health including: Low income and Problems related to primary support group Discharge Plan Discharge Clinical Impression: Opioid use disorder Patient Disposition: Still a Patient Instructions: Opioid Withdrawal (ED) Additional Instructions: Overdose You were seen in our Emergency Department for an overdose today. You received narcan in order to reverse the effects of overdose. Narcan only lasts about 45 min to 1 hour in the system. You may have been given narcan to take home with you today, please keep it near you if you are going to use again, so others can use it if needed.? The number one risk for fatal overdose is using alone? [employer] is a / hotline where you can be on the phone with someone while you use, and they can call for help if they suspect an overdose: [phone] Things to look out for when you leave include severe vomiting or diarrhea, headaches, muscle cramps, fever, coughing, chest pain, or if you feel so short of breath you cannot walk to the bathroom. Please seek care and return any time for worsening symptoms.? You may have been provided with safer injection?items, please take time to take care of YOU and your health. Use new supplies whenever possible to lessen the chances of infections and other illnesses.? If you need more supplies, please go [facility],? [address] [place] [address] [place] you can call or text to coordinate delivery of safer supplies. If you decide you want to stop or cut down on how much you?re using, please call the numbers on the list provided to you or you can come to our outpatient Addiction Treatment office [facility] (M-F 9am-5p) [address] [place] [address], [address] [place], [place]. [phone] Prescriptions: No Action baclofen 10 mg Tablet 10 mg PO BID 30 Days Qty: 60 0RF buspirone 10 mg Tablet 10 mg PO TID 30 Days Qty: 90 0RF mirtazapine 7.5 mg Tablet 7.5 mg PO BEDTIME 30 Days Qty: 30 0RF olanzapine 10 mg Tablet 10 mg PO BEDTIME 30 Days Qty: 30 0RF olanzapine 5 mg Tablet 5 mg PO TID PRN (Reason: agitation) 30 Days Qty: 90 0RF lactulose 10 gram/15 mL Solution 40 g PO DAILY 30 Days Qty: 1800 0RF divalproex 250 mg Tablet,Delayed Release (Dr/Ec) 750 mg PO BID 30 Days Qty: 180 0RF benztropine 1 mg Tablet 1 mg PO BID 30 Days Qty: 60 0RF Print Language: Japanese
[2024-08-04 22:00] VITALS: BP 95/41; PULSE 50; RESP 16; TEMP 36.1; O2SAT 99
--- NOTE | 2024-08-05 00:39 | PC.NURSE ---
Took over care from XIAO Ribera, sleeping at this time, pt is next to nurses station for observation, no distress. pt change into hospital attire.
[2024-08-05 02:22] VITALS: BP 108/71; PULSE 79; RESP 18; TEMP 36.9; O2SAT 99
--- NOTE | 2024-08-05 02:32 | PC.NURSE ---
Pt a&o, sandwich given and drink.
[2024-08-05 06:29] VITALS: BP 98/49; PULSE 53; RESP 16; TEMP 37; O2SAT 98
--- NOTE | 2024-08-05 06:33 | PC.NURSE ---
PT belonging turned,
[2024-08-05 06:39] VITALS: BP 98/49; PULSE 53; RESP 16; TEMP 37; O2SAT 98
[2024-08-05] MEDS: Naloxone HCl Nasal TAKE HOME 4 MG SPRAY 8 MG NOSTRILALT (06:43)
--- NOTE | 2024-08-05 06:45 | PC.NURSE ---
medicated per mar.
== END 2024-08-05 06:45 | disposition home or self-care (01) ==
PROVIDERS: Emergency Provider Emergency Medicine Emergency Medical Services
DX: T40.1X1A Poisoning by heroin, accidental (unintentional), initial encounter (principal); R40.4 Transient alteration of awareness; F14.10 Cocaine abuse, uncomplicated; F11.10 Opioid abuse, uncomplicated; F43.10 Post-traumatic stress disorder, unspecified; Z71.51 Drug abuse counseling and surveillance of drug abuser
CPT/HCPCS: 99283; 99285

== ENCOUNTER 2024-08-09 15:29 | Emergency (ER) | payer MEDICARE, MEDICAID, SELFPAY ==
[2024-08-09 15:36] VITALS: BP 137/89; PULSE 98; O2SAT 100
--- NOTE | 2024-08-09 15:38 | ED_ITS ---
HPI - Overdose General Chief Complaint: Overdose Stated Complaint: over dose 1 bag of heroine, narcanned Source: patient, EMS and old records reviewed Mode of arrival: EMS Limitations: no limitations History of Present Illness ED Provider: EDDY SALCIDO Narrative: 29 yo male with PMH of PTSD, schizophrenia, cocaine and opiate abuse again found sitting outside overdosed s/p sniffing heroin - was given narcan by bystanders with good effect. He has no SI/HI. Not on MAT therapy and does not want detox. He has no complaints just states he is cold. 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) Context: Accidental Overdose: wanted to get high Treatments Prior to Arrival: narcan (3 IN doses by bystanders) Related Data Previous Rx's ?Medication ?Instructions ?Recorded baclofen 10 mg tablet 10 mg PO BID 30 days #60 tabs 07/16/24 benztropine 1 mg tablet 1 mg PO BID 30 days #60 tabs 07/16/24 buspirone 10 mg tablet 10 mg PO TID 30 days #90 tabs 07/16/24 divalproex 250 mg tablet,delayed 750 mg (3 x 250 mg) PO BID 30 days 07/16/24 release #180 tabs lactulose 10 gram/15 mL oral 40 g (60 mL) PO DAILY 30 days 07/16/24 solution #1,800 mL mirtazapine 7.5 mg tablet 7.5 mg PO BEDTIME 30 days #30 tabs 07/16/24 olanzapine 10 mg tablet 10 mg PO BEDTIME 30 days #30 tabs 07/16/24 olanzapine 5 mg tablet 5 mg PO TID PRN agitation 30 days 07/16/24 #90 tabs Allergies Allergy/AdvReac Type Severity Reaction Status Date / Time morphine [MORPHINE] AdvReac Unknown NAUSEA Verified 08/09/24 15:48 Review of Systems Review of Systems: Constitutional : No Fever, No Chills ENT/Mouth : No Ear Pain, No Nasal Congestion, No sore throat Eyes: No Eye Pain, No Swelling, No Redness Cardiovascular : No Chest Pain, No SOB Respiratory : No Cough, No Sputum, No Dyspnea Gastrointestinal : No Nausea, No Vomiting, No Diarrhea, No Hematochezia, No Melena Genitourinary : No Dysuria, No Urinary Frequency, No Hematuria Musculoskeletal : No Myalgias Skin : No Skin Lesions, No rash Neuro : No Weakness, No Numbness, No Paresthesias, No Dizziness, No Headache Psych : no Anxiety, no Depression, no SI/HI All other systems reviewed and are negative [facility] Past Medical History Attestation statement: The following information was validated with the patient. Source: old records reviewed Medical History Behavior concern in adult Agitation Opioid use disorder Cocaine use disorder Nonspecific ST-T wave electrocardiographic changes Accidental overdose Polysubstance (including opioids) dependence, daily use PCP abuse PTSD (post-traumatic stress disorder) Schizoaffective disorder, bipolar type Suicidal behavior Depression Anxiety Schizophrenia Bipolar affective Schizophrenia Social History Social History Household Members: Family Housing: House Do you presently have visiting nurse or other home services: No Unable to assess alcohol history related to: Unknown Alcohol intake: current Alcohol intake frequency: 0-2 drinks per day Alcohol type: hard liquor Comment: currently asleep Patient Tobacco Use Status: Never used Tobacco Cigarette Packs Per Day: 0.25 Cigarettes Per Day: 5.0 Years Smoked: 10 Smoked in Last 30 Days: No e-Cigarette/Vaping Use: Never Used Second Hand Smoke Exposure: No Substance Use Type: Heroin Substance Use Type Other:: snorting Substance Use Frequency: Chronic Longstanding Last Used Substance: Just Prior to Admission service: No Sexual orientation: Straight/Heterosexual Physical Exam Vital Signs: Vital Signs: Last Vital Signs Temp 97 F 08/09/24 18:08 Pulse 68 08/09/24 18:08 Resp 14 08/09/24 18:08 BP 110/57 L 08/09/24 18:08 Pulse Ox 97 08/09/24 18:08 O2 Del Method Room Air 08/09/24 18:08 BMI result Body Mass Index 25.2 Appearance: Alert. Oriented X3. No acute distress. Calm and cooperative Eyes: Pupils equal, round and reactive to light. ENT: Pharynx normal. atraumatic Neck: Normal inspection. Neck supple. CVS: Normal heart rate and rhythm. Pulses normal. Respiratory: No respiratory distress. Breath sounds normal. Abdomen: Soft and nontender. Skin: Skin warm and clammy. Normal skin color. Normal skin turgor. Extremities: No lower extremity edema. No calf ttp Neuro: Oriented X 3. No motor deficit. No sensory deficit. CN2-12 intact Course Course Course Narrative: Time: 16:17 Date: 08/09/24 Provider: Mayra Reyes DO Patient in physician observation for recovery team eval. Medical Decision Making Medical Decision Making [facility] Narrative: 29 yo male with PMH of PTSD, schizophrenia, cocaine and opiate abuse here wtih c/o accidental overdose s/p narcan. He denies SI/HI. No complaints at this time. No reported head trauma. I am attempting to get him to talk to our recovery team. Narcan to go ordered Differential Diagnosis Differential Diagnoses: The differential diagnosis associated with the presentation includes overdose, opiate use disorder, decompensated mental health Admission/Observation Consideration of admission/observation: Escalation of care including admission/observation considered Time: 19:34 Date: 08/09/24 Provider: Mayra Reyes DO Physician observation ended at 734pm. Patient has been cleared for discharge by the recovery team. Will follow up as an outpatient. he has no SI/HI. no repeat narcan needed. Consult Healthcare Provider Management of the patient was discussed with: Coverer Lab Data MDM Lab Attestation statement: I reviewed the patient's lab results. Labs: Lab Results 08/09/24 Range/Units 18:26 Urine Opiates Screen POSITIVE H (Not Detect) Ur Buprenorphine Scrn Not Detected (Not Detect) ng/mL Ur Oxycodone Screen Not Detected (Not Detect) ng/mL Urine Methadone Screen Not Detected (Not Detect) ng/mL Urine Fentanyl Screen POSITIVE H (Not Detect) Ur Barbiturates Screen Not Detected (Not Detect) Ur Phencyclidine Scrn Not Detected (Not Detect) Ur Amphetamines Screen Not Detected (Not Detect) U Benzodiazepines Scrn Not Detected (Not Detect) Urine Cocaine Screen POSITIVE H (Not Detect) U Marijuana (THC) Screen POSITIVE H (Not Detect) Independent Historian Clinical information obtained from an independent historian. History obtained from or confirmed by: EMS External Record Review External record reviewed: Inpatient record and Outpatient record Social Determinants Patient?s care significantly limited by Social Determinants of Health including: Inadequate housing, Low income and Problems related to primary support group Discharge Plan Discharge Clinical Impression: Opioid use disorder Overdose Qualifiers: Encounter type: initial encounter Injury intent: accidental or unintentional Qualified Code(s): T50.901A - Poisoning by unspecified drugs, medicaments and biological substances, accidental (unintentional), initial encounter Patient Disposition: Home, Self-Care Instructions: Adult Overdose (ED), Opioid Use Disorder (ED) Additional Instructions: Overdose You were seen in our Emergency Department for an overdose today. You received narcan in order to reverse the effects of overdose. Narcan only lasts about 45 min to 1 hour in the system. You may have been given narcan to take home with you today, please keep it near you if you are going to use again, so others can use it if needed.? The number one risk for fatal overdose is using alone? [employer] is a / hotline where you can be on the phone with someone while you use, and they can call for help if they suspect an overdose: [phone] Things to look out for when you leave include severe vomiting or diarrhea, headaches, muscle cramps, fever, coughing, chest pain, or if you feel so short of breath you cannot walk to the bathroom. Please seek care and return any time for worsening symptoms.? You may have been provided with safer injection?items, please take time to take care of YOU and your health. Use new supplies whenever possible to lessen the chances of infections and other illnesses.? If you need more supplies, please go [facility],? [address] [place] [address] OR you can call or text to coordinate delivery of safer supplies. If you decide you want to stop or cut down on how much you?re using, please call the numbers on the list provided to you or you can come to our outpatient Addiction Treatment office [facility] (M-F 9am-5p) [address] [place] [address], [address] [place], [place]. [phone] Prescriptions: No Action baclofen 10 mg Tablet 10 mg PO BID 30 Days Qty: 60 0RF buspirone 10 mg Tablet 10 mg PO TID 30 Days Qty: 90 0RF mirtazapine 7.5 mg Tablet 7.5 mg PO BEDTIME 30 Days Qty: 30 0RF olanzapine 10 mg Tablet 10 mg PO BEDTIME 30 Days Qty: 30 0RF olanzapine 5 mg Tablet 5 mg PO TID PRN (Reason: agitation) 30 Days Qty: 90 0RF lactulose 10 gram/15 mL Solution 40 g PO DAILY 30 Days Qty: 1800 0RF divalproex 250 mg Tablet,Delayed Release (Dr/Ec) 750 mg PO BID 30 Days Qty: 180 0RF benztropine 1 mg Tablet 1 mg PO BID 30 Days Qty: 60 0RF Print Language: Salvadorean
[2024-08-09 15:46] VITALS: BP 126/79; PULSE 82; RESP 18; TEMP 36.4; O2SAT 97; BMI 25.2
--- NOTE | 2024-08-09 17:11 | PC.NURSE ---
Pt laying in stretcher quietly, arouses to light verbal stim, verbalizes no complaints.
--- NOTE | 2024-08-09 17:23 | PC.NURSE ---
Pt changed into hospital attire with PCT and security, belongings secured
[2024-08-09 18:08] VITALS: BP 110/57; PULSE 68; RESP 14; TEMP 36.1; O2SAT 97
[2024-08-09 18:47] LABS: Amphetamine Screen Urine Not Detected (Not Detect); Barbiturates, Urine Not Detected (Not Detect); Benzodiazepines Screen Urine Not Detected (Not Detect); Buprenorphine Scr Not Detected (Not Detect); Cannabinoid Screen Urine POSITIVE (Not Detect); Cocaine Screen Urine POSITIVE (Not Detect); Fentanyl, urine POSITIVE (Not Detect); Methadone Screen, Urine Not Detected (Not Detect); Opiate Screen Urine POSITIVE (Not Detect); Oxycodone Screen Urine Not Detected (Not Detect); Phencyclidine Screen Urine Not Detected (Not Detect)
--- NOTE | 2024-08-09 19:40 | HO.SUDE ---
T/W met with patient to complete a SUDE. Patient tested positive for opiates, fentanyl, cocaine and marijuana. Patient reported he uses 1 bag of heroin daily intranasally. Patient has a hx of substance use and [place] 35s. Patient has a recent hx of overdose, unintentionally. No family hx reported. Patient has a hx of mental health treatment, [facility] admissions and detox admissions. Patient denied SI/HI/AH/VH. Patient denied any services, detox or resources. Patient requesting to be discharged home. Patient will be discharged with Narcan. This has been discussed with Mayra Reyes MD.
[2024-08-09 20:23] VITALS: BP 106/55; PULSE 52; RESP 16; TEMP 36.6; O2SAT 97
[2024-08-09] MEDS: Naloxone HCl Nasal TAKE HOME 4 MG SPRAY 8 MG NOSTRILALT (20:45)
--- NOTE | 2024-08-09 20:45 | PC.NURSE ---
britton HUSSEIN MD confirmed okay to discharge
[2024-08-09 20:48] VITALS: BP 106/55; PULSE 52; RESP 16; TEMP 36.6; O2SAT 97
== END 2024-08-09 20:48 | disposition home or self-care (01) ==
PROVIDERS: Emergency Provider Emergency Medicine
DX: T40.1X1A Poisoning by heroin, accidental (unintentional), initial encounter (principal); R40.4 Transient alteration of awareness; Y92.410 Unspecified street and highway as the place of occurrence of the external cause; F14.10 Cocaine abuse, uncomplicated; F11.20 Opioid dependence, uncomplicated; F43.10 Post-traumatic stress disorder, unspecified; F25.0 Schizoaffective disorder, bipolar type; F29 Unspecified psychosis not due to a substance or known physiological condition; Z79.899 Other long term (current) drug therapy
CPT/HCPCS: 80307; 99283; 99285

== ENCOUNTER 2024-09-11 17:04 | Emergency (ER) | payer MEDICARE, MEDICAID, SELFPAY ==
[2024-09-11 17:09] VITALS: BP 180/94; PULSE 78; O2SAT 99
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
[2024-09-11 17:28] VITALS: BP 118/73; PULSE 53; RESP 14; TEMP 36.1; O2SAT 95; BMI 24.5
--- NOTE | 2024-09-11 17:57 | PC.NURSE ---
patient placed on 2L nasal cannula d/t oxygen dropping when patient sleeps. continues to be alert to verbal stimuli. patient belongings placed in robin port shelf 2.
--- NOTE | 2024-09-11 19:21 | PC.NURSE ---
Assumed care of pt at 1900. PT resting quietly, in no acute distress. PT arousable to verbal stimuli, a/ox3, skin appropriate for ethnicity. VSS with the exception of 02- attempted o2 trial- pt saturating to 86% on room air. placed pt back on 2L nc and improved to 94%. safety precautions in place.call [place] within reach. Plan of care ongoing
[2024-09-11 19:27] VITALS: BP 111/61; PULSE 51; RESP 14; TEMP 36.5; O2SAT 100
[2024-09-11 21:12] VITALS: BP 111/61; PULSE 51; RESP 14; TEMP 36.5; O2SAT 92
== END 2024-09-11 21:13 | disposition home or self-care (01) ==
PROVIDERS: Emergency Provider Internal Medicine; PCP Family Medicine
DX: F19.20 Other psychoactive substance dependence, uncomplicated (principal); F11.20 Opioid dependence, uncomplicated; F14.10 Cocaine abuse, uncomplicated; F25.0 Schizoaffective disorder, bipolar type; F29 Unspecified psychosis not due to a substance or known physiological condition; F43.10 Post-traumatic stress disorder, unspecified; Z79.899 Other long term (current) drug therapy
CPT/HCPCS: 99284

== ENCOUNTER 2024-12-04 13:42 | Emergency (ER) | payer MEDICARE, MEDICAID, SELFPAY ==
[2024-12-04] VITALS (7 sets, daily range): BP systolic 114–144; BP diastolic 51–82; PULSE 51–104; RESP 14–18; TEMP 36.4–37.1; O2SAT 83–97; BMI 24.3
--- NOTE | 2024-12-04 14:36 | ED_ITS ---
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 Patient states he used IV heroin and cocaine today. He denies any physical complaints, states this was an accidental overdose. Patient states he does not want consult with CARE team, and has resources outside to help him with his polysubstance use at this time. denies SI/HI MD complaint: accidental overdose Onset (ago): hour(s) Related Data Previous Rx's ?Medication ?Instructions ?Recorded baclofen 10 mg tablet 10 mg PO BID 30 days #60 tab s 07/16/24 benztropine 1 mg tablet 1 mg PO BID 30 days #60 tabs 07/16/24 buspirone 10 mg tablet 10 mg PO TID 30 days #90 tab s 07/16/24 divalproex 250 mg tablet,delayed 750 mg (3 x 250 mg) P O BID 30 days 07/16/24 release #180 tabs lactulose 10 gram/15 mL oral 40 g (60 mL) PO DAILY 30 days 07/16/24 solution #1,800 mL mirtazapine 7.5 mg tablet 7.5 mg PO BEDTIME 30 days #3 0 tabs 07/16/24 olanzapine 10 mg tablet 10 mg PO BEDTIME 30 days #30 tabs 07/16/24 olanzapine 5 mg tablet 5 mg PO TID PRN agitation 30 days 07/16/24 #90 tabs Allergies Allergy/AdvReac Type Severity Reaction Status Date / Time morphine (MORPHINE) AdvReac Unknown NAUSEA Verified 12/04/24 13:54 Review of Systems Review of Systems: CONST: Negative for fever, body aches and chills. HENT: Negative for neck pain/stiffness, headache, congestion, sore throat, swelling. EYES: Negative for discharge/pain or vision changes. RESP: Negative for cough/hemoptysis and shortness of breath. CV: Negative chest pain, difficulty breathing, palpitations. ABD: Negative pain, nausea, vomiting. : Negative increase frequency, dysuria, blood in urine or stool. MUSC: Negative for muscle aches, edema. SKIN: Negative rash, lesions/sores. NEURO: Negative headache, dizziness, weakness. ON LICENSE OF [facility] Past Medical History Attestation statement: The following information was validated with the patient. Source: old records reviewed and nursing notes reviewed Medical History Behavior concern in adult Agitation Opioid use disorder Cocaine use disorder Nonspecific ST-T wave electrocardiographic changes Accidental overdose Polysubstance (including opioids) dependence, daily use PCP abuse PTSD (post-traumatic stress disorder) Schizoaffective disorder, bipolar type Suicidal behavior Depression Anxiety Schizophrenia Bipolar affective Schizophrenia Social History Social History Household Members: Family Housing: House Do you presently have visiting nurse or other home services: No Unable to assess alcohol history related to: Unknown Alcohol intake: current Alcohol intake frequency: 0-2 drinks per day Alcohol type: hard liquor Comment: currently asleep Patient Tobacco Use Status: Never used Tobacco Cigarette Packs Per Day: 0.25 Cigarettes Per Day: 5.0 Years Smoked: 10 Smoked in Last 30 Days: No e-Cigarette/Vaping Use: Never Used Second Hand Smoke Exposure: No Use of substances other than those prescribed or required for medical reasons: Yes Substance Use Type: Crack/Cocaine and Heroin Advance Directives: No Advance Directives Information Provided: Yes service: No Sexual orientation: Straight/Heterosexual Physical Exam Exam: Exam: GENERAL APPEARANCE: ?AxOx4, patient is tired, sweaty appearing. HEENT: ?NC, AT. MMM. EOMI, pinpoint pupils noted, clear conjunctiva, oropharynx clear. NECK: ?Supple without lymphadenopathy.? No stiffness or restricted ROM. HEART:? tachycardic rate and regular rhythm, normal S1/S2, no m/r/g LUNGS:? CTAB, moving air well. No crackles or wheezes are heard. ABDOMEN: ?Soft, nontender, nondistended with good bowel sounds heard. EXTREMITIES: ?Without cyanosis, clubbing or edema. NEUROLOGICAL: ?Grossly nonfocal. Alert and oriented, moving all 4 extremities. Skin: ?Warm and diaphoretic without any rash. Vital Signs: Vital Signs: Last Vital Signs Temp 97.6 F 12/04/24 18:38 Pulse 51 12/04/24 18:38 Resp 16 12/04/24 18:38 BP 114/51 L 12/04/24 18:38 Pulse Ox 96 12/04/24 18:38 O2 Del Method Room Air 12/04/24 18:38 O2 Flow Rate 2 12/04/24 15:58 BMI result Body Mass Index 24.3 Medical Decision Making Medical Decision Making MDM Narrative: 29-year-old male with medical history of polysubstance use disorder presents to the ED by EMS today due to being found unresponsive outside, with bystander giving 4 mg nasal Narcan. Patient states he used IV heroin and cocaine today. He denies any physical complaints, states this was an accidental overdose. Patient states he does not want consult with CARE team, and has resources outside to help him with his polysubstance use at this time. denies SI/HI VSS, patient normotensive 117/71, pulse rate 72 beats per minute, respiratory rate 18, 96% on room air. Physical exam benign, however patient is diaphoretic with pinpoint pupils, patient states he was outside in the heat which is why he is sweating. Patient states he has not have any physical complaints, does not want to meet with care team as he states he has support in the community for his drug use. Patient is currently sleeping, but is arousable by vocal stimulation. Patients O2 dropped to 88% while sleeping. Patient placed on 2L O2 NC and resting in the department. Patient has eaten PB&J, drinking water and gingerale. Course 18:57- patient has been resting quietly in the department, is now up using the bathroom, drinking water. Patient states he is ready to discharge home, I offered patient to meet with care team will more time for support with opioid addiction. Patient declined again stating that he has support in the community. Vital signs stable, BP normotensive 130/82, with O2 saturation 98% on room air. We will discharge from the Department with instructions and resources for opioid addiction. Will send home with Narcan. Differential Diagnosis Differential Diagnoses: The differential diagnosis associated with the presentation includes Opioid intoxication Opiate withdrawal Cocaine intoxication Admission/Observation Consideration of admission/observation: Escalation of care including admission/observation considered Discharge Plan Discharge Clinical Impression: Opioid use disorder Patient Disposition: Home, Self-Care Instructions: Opioid Withdrawal (ED), Opioid Use Disorder (ED) Additional Instructions: You were evaluated in the ED today after drug overdose, with bystander administering 4 mg of nasal Narcan. Your vital signs were reassuring. You were offered consult with our addiction CARE team, but you declined meeting with them due to having support in the community for your drug use. Overdose You were seen in our Emergency Department for an overdose today. You received narcan in order to reverse the effects of overdose. Narcan only lasts about 45 min to 1 hour in the system. You may have been given narcan to take home with you today, please keep it near you if you are going to use again, so others can use it if needed.? The number one risk for fatal overdose is using alone? [employer] is a 29/11 hotline where you can be on the phone with someone while you use, and they can call for help if they suspect an overdose: [phone] Things to look out for when you leave include severe vomiting or diarrhea, headaches, muscle cramps, fever, coughing, chest pain, or if you feel so short of breath you cannot walk to the bathroom. Please seek care and return any time for worsening symptoms.? You may have been provided with safer injection?items, please take time to take care of YOU and your health. Use new supplies whenever possible to lessen the chances of infections and other illnesses.? If you need more supplies, please go [facility],? [address] [place] [address] OR you can call or text to coordinate delivery of safer supplies. If you decide you want to stop or cut down on how much you?re using, please call the numbers on the list provided to you or you can come to our outpatient Ad diction Treatment office [facility] (M-F 9am-5p) [address] [place] [address], [address] [phone] Prescriptions: No Action baclofen 10 mg Tablet 10 mg PO BID 30 Days Qty: 60 0RF buspirone 10 mg Tablet 10 mg PO TID 30 Days Qty: 90 0RF mirtazapine 7.5 mg Tablet 7.5 mg PO BEDTIME 30 Days Qty: 30 0RF olanzapine 10 mg Tablet 10 mg PO BEDTIME 30 Days Qty: 30 0RF olanzapine 5 mg Tablet 5 mg PO TID PRN (Reason: agitation) 30 Days Qty: 90 0RF lactulose 10 gram/15 mL Solution 40 g PO DAILY 30 Days Qty: 1800 0RF divalproex 250 mg Tablet,Delayed Release (Dr/Ec) 750 mg PO BID 30 Days Qty: 180 0RF benztropine 1 mg Tablet 1 mg PO BID 30 Days Qty: 60 0RF Print Language: Welsh
--- NOTE | 2024-12-04 15:51 | PC.NURSE ---
Pt was sleeping with SaO2 83% on RA. easily arousable and SaO2 improved w/o intervention once awake. 2L NC applied. Primary RN aware
--- NOTE | 2024-12-04 15:58 | PC.NURSE ---
pt drank several cups of water in ED. pt sleeping. when sleeping pt dipped into the 80s. awoke easily, RR 16. placed on 2L NC. PA notified.
[2024-12-04] MEDS: Naloxone HCl Nasal TAKE HOME 4 MG SPRAY 8 MG NOSTRILALT (19:23)
== END 2024-12-04 19:25 | disposition home or self-care (01) ==
PROVIDERS: Emergency Provider Emergency Medicine
DX: F11.10 Opioid abuse, uncomplicated (principal); F14.10 Cocaine abuse, uncomplicated; F19.20 Other psychoactive substance dependence, uncomplicated; F16.10 Hallucinogen abuse, uncomplicated; F43.10 Post-traumatic stress disorder, unspecified; F25.0 Schizoaffective disorder, bipolar type; F29 Unspecified psychosis not due to a substance or known physiological condition; Z79.899 Other long term (current) drug therapy
CPT/HCPCS: 99285

== ENCOUNTER 2024-12-08 02:34 | Emergency (ER) | payer MEDICARE, MEDICAID, SELFPAY ==
[2024-12-08 02:50] VITALS: BP 143/91; BP 148/94; PULSE 68; PULSE 95; RESP 15; TEMP 36.6; O2SAT 98; BMI 25.6
[2024-12-08 04:23] VITALS: BP 93/50; PULSE 71; RESP 14; O2SAT 95
--- NOTE | 2024-12-08 04:56 | ED_ITS ---
HPI - Overdose General Chief Complaint: Overdose Stated Complaint: OD/8MG NARCAN GIVEN Time Seen by Provider: 12/08/24 04:54 Source: patient and EMS Mode of arrival: EMS Limitations: no limitations History of Present Illness ED Provider: Dr. Jazmin Marks HPI Narrative: patient comes to the emergency room via EMS. According to EMS, the patient was found on the side of the road by police slumped over, nonresponsive. PD gave the patient Narcan 8 mg, patient woke up immediately. Patient arrives stating that he admits to using heroin, states it was an accident, he did not mean to hurt himself in any way, denies HI. Patient states that he did not hit his head, did not lose consciousness. Patient states that it was an accidental overdose. Has no complaints. Patient declines help for narcotic /drug abuse Related Data Previous Rx's ?Medication ?Instructions ?Recorded baclofen 10 mg tablet 10 mg PO BID 30 days #60 tab s 07/16/24 benztropine 1 mg tablet 1 mg PO BID 30 days #60 tabs 07/16/24 buspirone 10 mg tablet 10 mg PO TID 30 days #90 tab s 07/16/24 divalproex 250 mg tablet,delayed 750 mg (3 x 250 mg) P O BID 30 days 07/16/24 release #180 tabs lactulose 10 gram/15 mL oral 40 g (60 mL) PO DAILY 30 days 07/16/24 solution #1,800 mL mirtazapine 7.5 mg tablet 7.5 mg PO BEDTIME 30 days #3 0 tabs 07/16/24 olanzapine 10 mg tablet 10 mg PO BEDTIME 30 days #30 tabs 07/16/24 olanzapine 5 mg tablet 5 mg PO TID PRN agitation 30 days 07/16/24 #90 tabs Allergies Allergy/AdvReac Type Severity Reaction Status Date / Time morphine (MORPHINE) AdvReac Unknown NAUSEA Verified 12/08/24 02:53 Review of Systems Review of Systems: Constitutional : No Weight loss, No Fever, No Chills, No Night Sweats, No Fatigue, No Malaise ENT/Mouth : No Hearing loss, No Ear Pain, No Nasal Congestion, No Sinus Pain, No Hoarseness, No sore throat, No Rhinorrhea, No Swallowing Difficulty Eyes: No Eye Pain, No Swelling, No Redness, No Foreign Body, No Discharge, No Vision Changes Cardiovascular : No Chest Pain, No SOB, No Dyspnea on Exertion, No Orthopnea, No Edema, No Palpitations Respiratory : No Cough, No Sputum, No Wheezing, No Smoke Exposure, No Dyspnea Gastrointestinal : No Nausea, No Vomiting, No Diarrhea, No Constipation, No abdominal Pain, No Hematochezia, No Melena Genitourinary : no irregular bleeding, No Dysuria, No Urinary Frequency, No Hematuria, No Urinary Incontinence, No Urgency, No Flank Pain, No Urinary Flow Changes, No Hesitancy Musculoskeletal : No joint pain, No Myalgias, No Joint Swelling Skin : No Skin Lesions, No rash Neuro : No Weakness, No Numbness, No Paresthesias, No Loss of Consciousness, No Dizziness, No Headache Psych : No Anxiety/Panic, No Depression, No SI/HI/AH/VH, complaining of an accidental heroin overdose Heme/Lymph: No Bruising, No Bleeding,No Lymphadenopathy Endocrine : No Polyuria, No Polydipsia, No Temperature Intolerance PMFSH Past Medical History Medical History Behavior concern in adult Agitation Opioid use disorder Cocaine use disorder Nonspecific ST-T wave electrocardiographic changes Accidental overdose Polysubstance (including opioids) dependence, daily use PCP abuse PTSD (post-traumatic stress disorder) Schizoaffective disorder, bipolar type Suicidal behavior Depression Anxiety Schizophrenia Bipolar affective Schizophrenia Social History Social History Household Members: Family Housing: House Do you presently have visiting nurse or other home services: No Unable to assess alcohol history related to: Unknown Alcohol intake: current Alcohol intake frequency: does not drink Alcohol type: hard liquor Comment: currently asleep Patient Tobacco Use Status: Never used Tobacco Cigarette Packs Per Day: 0.25 Cigarettes Per Day: 5.0 Years Smoked: 10 Smoked in Last 30 Days: Yes e-Cigarette/Vaping Use: Never Used Second Hand Smoke Exposure: No Use of substances other than those prescribed or required for medical reasons: Yes Substance Use Type: Heroin Substance Use Frequency: Chronic Longstanding Last Used Substance: Just Prior to Admission Advance Directives: No Advance Directives Information Provided: No Do you have a plan to hurt others: No Plan service: No Sexual orientation: Straight/Heterosexual Physical Exam Exam: Exam: Appearance: Alert. Oriented X3. No acute distress. somnolent but easily arousable, answering appropriately Eyes: Pupils equal, round and reactive to light. ENT: Pharynx normal. Neck: Normal inspection. Neck supple. No lymph nodes noted. No crepitus CVS: Normal heart rate and rhythm. Pulses normal. Normal S1 and S2 Respiratory: No respiratory distress. Breath sounds normal. No Wheezing. No rales Abdomen: Soft and nontender. No rigidity. No distention. Skin: Skin warm and dry. Normal skin color. Normal skin turgor. Extremities: No lower extremity edema. No Lacerations. No Rash Neuro: Oriented X 3. No motor deficit. No sensory deficit. Moving all extremities. No slurred speech. CN 2 through 12 grossly intact Psych: calm, cooperative, normal affect Vital Signs: Vital Signs: Last Vital Signs Temp 97.9 F 12/08/24 02:50 Pulse 71 12/08/24 04:23 Resp 14 12/08/24 04:23 BP 93/50 L 12/08/24 04:23 Pulse Ox 95 12/08/24 04:23 O2 Del Method Room Air 12/08/24 04:23 BMI result Body Mass Index 25.6 Course Course Course Narrative: earlier today, patient found by PD unresponsive, overdose, responded well to 8 mg of intranasal Narcan. Patient on arrival awake, alert and oriented x3, answering appropriately, denies SI or HI, admits to heroin overdose patient denies any injury, states that he feels well otherwise. Medical Decision Making Medical Decision Making [facility] Narrative: Patient will be discharged when awake and alert with home Narcan. Patient declined help for polysubstance abuse patient's vitals are stable, oxygen saturation has been in the high 90s without any desaturations patient denies SI or HI, Section 12 is not indicated physician observation started at 03:00 Differential Diagnosis Differential Diagnoses: The differential diagnosis associated with the presentation includes ( Polysubstance abuse, alcohol abuse) Admission/Observation Consideration of admission/observation: Escalation of care including admission/observation considered ( patient is under physician observation waiting to become more awake and alert and to be discharged.) Critical Care Time Critical Care Time Critical Care Time: Yes Total Critical Care Time: 35 Attestation: I have personally provided critical care time. Time includes review of lab data, radiology results, discussion with consultants, and monitoring for potential decompensation. Intervention performed as documented. Discharge Plan Discharge Clinical Impression: Drug overdose Patient Disposition: Home, Self-Care Instructions: Adult Overdose (ED) Additional Instructions: Overdose You were seen in our Emergency Department for an overdose today. You received narcan in order to reverse the effects of overdose. Narcan only lasts about 45 min to 1 hour in the system. You may have been given narcan to take home with you today, please keep it near you if you are going to use again, so others can use it if needed.? The number one risk for fatal overdose is using alone? [employer] is a / hotline where you can be on the phone with someone while you use, and they can call for help if they suspect an overdose: [phone] Things to look out for when you leave include severe vomiting or diarrhea, headaches, muscle cramps, fever, coughing, chest pain, or if you feel so short of breath you cannot walk to the bathroom. Please seek care and return any time for worsening symptoms.? You may have been provided with safer injection?items, please take time to take care of YOU and your health. Use new supplies whenever possible to lessen the chances of infections and other illnesses.? If you need more supplies, please go [facility],? [address] [place] [address] OR you can call or text to coordinate delivery of safer supplies. If you decide you want to stop or cut down on how much you?re using, please call the numbers on the list provided to you or you can come to our outpatient Addiction Treatment office [facility] (M-F 9am-5p) [address] [place] [address], [address] [place], [place]. [phone] Prescriptions: No Action baclofen 10 mg Tablet 10 mg PO BID 30 Days Qty: 60 0RF buspirone 10 mg Tablet 10 mg PO TID 30 Days Qty: 90 0RF mirtazapine 7.5 mg Tablet 7.5 mg PO BEDTIME 30 Days Qty: 30 0RF olanzapine 10 mg Tablet 10 mg PO BEDTIME 30 Days Qty: 30 0RF olanzapine 5 mg Tablet 5 mg PO TID PRN (Reason: agitation) 30 Days Qty: 90 0RF lactulose 10 gram/15 mL Solution 40 g PO DAILY 30 Days Qty: 1800 0RF divalproex 250 mg Tablet,Delayed Release (Dr/Ec) 750 mg PO BID 30 Days Qty: 180 0RF benztropine 1 mg Tablet 1 mg PO BID 30 Days Qty: 60 0RF Print Language: Mongolian
[2024-12-08 06:06] VITALS: BP 99/53; PULSE 56; RESP 12; TEMP 36.6; O2SAT 100
[2024-12-08 08:16] VITALS: BP 93/43; PULSE 54; RESP 11; TEMP 36.3; O2SAT 96
--- NOTE | 2024-12-08 08:18 | PC.NURSE ---
Pt A+OX3, taking PO intake without issue; bp soft 90's systolic; provider aware; pt asymptomatic; will cont to monitor per orders
[2024-12-08 10:06] VITALS: BP 93/43; PULSE 54; RESP 16; TEMP 36.3; O2SAT 96
== END 2024-12-08 10:07 | disposition home or self-care (01) ==
PROVIDERS: Emergency Provider Emergency Medicine Emergency Medical Services
DX: T40.1X1A Poisoning by heroin, accidental (unintentional), initial encounter (principal); Y92.480 Sidewalk as the place of occurrence of the external cause; F11.90 Opioid use, unspecified, uncomplicated; F14.90 Cocaine use, unspecified, uncomplicated; F19.20 Other psychoactive substance dependence, uncomplicated; F43.10 Post-traumatic stress disorder, unspecified; F25.0 Schizoaffective disorder, bipolar type; F32.A Depression, unspecified; F41.9 Anxiety disorder, unspecified
CPT/HCPCS: 99285; 99291

== ENCOUNTER 2024-12-11 22:35 | Emergency (ER) | payer MEDICARE, MEDICAID, SELFPAY ==
[2024-12-11 22:37] VITALS: BP 148/88; PULSE 107; O2SAT 99
[2024-12-11 22:41] VITALS: BP 123/81; PULSE 89; RESP 16; TEMP 36.5; O2SAT 97; BMI 24.4
--- NOTE | 2024-12-11 23:14 | PC.NURSE ---
pt awake, eating and drinking, no complaints at this time. maintaining 95% O2 on monitor
--- NOTE | 2024-12-12 00:22 | ED.OVERDOSE ---
HPI - Overdose General Chief Complaint: Overdose Stated Complaint: OD, narcan given, a&0 x4 Time Seen by Provider: 12/11/24 22:41 Source: patient and EMS Mode of arrival: EMS Limitations: no limitations History of Present Illness ED Provider: Rad WARE HPI Narrative: The patient is a 29-year-old male presenting to the ED via EMS reports patient was found unresponsive, given 8 mg of intranasal Narcan by PD and woke without complaint. The patient in the ED is calm, cooperative, admits to snorting heroin which he states he has been using for the past 4 years. The patient denies any injection of heroin, denies coingestion of other recreational drugs. Patient reports he got the heroin from a regular source, denies any concern for possible lacing with other substances. The patient denies suicidal or homicidal ideation, reports this was an accidental overdose. The patient in the ED denies any acute somatic complaint. Related Data Previous Rx's ?Medication ?Instructions ?Recorded baclofen 10 mg tablet 10 mg PO BID 30 days #60 tabs 07/16/24 benztropine 1 mg tablet 1 mg PO BID 30 days #60 tabs 07/16/24 buspirone 10 mg tablet 10 mg PO TID 30 days #90 tabs 07/16/24 divalproex 250 mg tablet,delayed 750 mg (3 x 250 mg) PO BID 30 days 07/16/24 release #180 tabs lactulose 10 gram/15 mL oral 40 g (60 mL) PO DAILY 30 days 07/16/24 solution #1,800 mL mirtazapine 7.5 mg tablet 7.5 mg PO BEDTIME 30 days #30 tabs 07/16/24 olanzapine 10 mg tablet 10 mg PO BEDTIME 30 days #30 tabs 07/16/24 olanzapine 5 mg tablet 5 mg PO TID PRN agitation 30 days 07/16/24 #90 tabs Allergies Allergy/AdvReac Type Severity Reaction Status Date / Time morphine (MORPHINE) AdvReac Unknown NAUSEA Verified 12/11/24 22:50 Review of Systems Review of Systems: Yes all other systems are reviewed and are negative PMFSH Past Medical History Medical History Behavior concern in adult Agitation Opioid use disorder Cocaine use disorder Nonspecific ST-T wave electrocardiographic changes Accidental overdose Polysubstance (including opioids) dependence, daily use PCP abuse PTSD (post-traumatic stress disorder) Schizoaffective disorder, bipolar type Suicidal behavior Depression Anxiety Schizophrenia Bipolar affective Schizophrenia Social History Social History Household Members: Family Housing: House Do you presently have visiting nurse or other home services: No Unable to assess alcohol history related to: Unknown Alcohol intake: current Alcohol intake frequency: does not drink Alcohol type: hard liquor Comment: currently asleep Patient Tobacco Use Status: Never used Tobacco Cigarette Packs Per Day: 0.25 Cigarettes Per Day: 5.0 Years Smoked: 10 e-Cigarette/Vaping Use: Never Used Second Hand Smoke Exposure: No Substance Use Type: Heroin Advance Directives: No Advance Directives Information Provided: Yes service: No Sexual orientation: Straight/Heterosexual Physical Exam Exam: Exam: CONSTITUTIONAL: The patient appears unkempt, but otherwise alert, non-toxic, well nourished and in no acute distress. Vital signs as documented. HEAD: Atraumatic, normocephalic. EYES: EOMs grossly intact, pupils equal, conjunctiva clear, no exudate. ENT: Nares patent, no discharge. Airway patent, no audible stridor, visible mucosa is pink and moist without noted lesions. NECK: Trachea is midline, no obvious masses or gross abnormalities. CHEST: Symmetric movement, normal appearance. LUNGS: LS present and CTAB, no w/r/r. Non-labored work of breathing. CARDIAC: Regular Rhythm, S1/S2 appreciated, no murmurs, rubs or gallops. ABDOMEN: Abdomen soft and non-tender x4 quadrants, no palpable masses or organomegaly. : Deferred. EXTREMITIES: Normal tone, moves all extremities spontaneously without reported pain. No obvious acute injury or deformity noted. NEURO: Alert and oriented x3, CN II-XII appear grossly intact. Cerebellar Functioning grossly intact. No obvious sensory or motor deficits. Speech clear and appropriate. PSYCH: normal affect, appropriate eye contact, fluid speech, with appropriate response to questioning. No reported suicidality or homicidality. SKIN: Warm, dry, color appropriate, normal turgor. No rashes noted. Vital Signs: Vital Signs: Last Vital Signs Temp 97.7 F 12/11/24 22:41 Pulse 89 12/11/24 22:41 Resp 16 12/11/24 22:41 BP 123/81 12/11/24 22:41 Pulse Ox 97 12/11/24 22:41 O2 Del Method Room Air 12/11/24 22:41 BMI result Body Mass Index 24.4 Medical Decision Making Medical Decision Making MDM Narrative: 12:24 AM 12/12/2024 (Duncan WARE): Patient is a 29-year-old male presenting to the ED for evaluation after unintentional overdose of heroin. The patient in the ED is common cooperative, exam is benign, patient denies any suicidal or homicidal ideation. The patient was observed and is now alert and requesting discharge. The patient was offered substance abuse resources and declined. Patient will be discharged. Admission/Observation Consideration of admission/observation: Escalation of care including admission/observation considered Discharge Plan Discharge Clinical Impression: Opioid overdose Qualifiers: Encounter type: initial encounter Injury intent: accidental or unintentional Qualified Code(s): T40.2X1A - Poisoning by other opioids, accidental (unintentional), initial encounter Patient Disposition: Home, Self-Care Instructions: Opioid Use Disorder (ED) Additional Instructions: Thank you for choosing [facility]'s Emergency Department for your care today. At this time there is no evidence of an acute process requiring admission to the hospital or continued ED observation, and it is safe to discharge you home. You were seen in the emergency department today for evaluation of a suspected opiate overdose. Please do not use heroin or other narcotics as they are generally not good for your health and can put you at risk for respiratory arrest, anoxic brain injury, severely decreased quality of life, and potentially an otherwise avoidable . Please make use of all available personal and community-based resources to attempt to become sober from recreational drugs. Please stay well hydrated and get plenty of rest. Please follow up with your primary care physician for re-evaluation, additional management of your symptoms, and continued preventative care. If you do not have a primary care physician, please call the [facility] at [phone] to establish a new primary care physician. While waiting to establish your new primary care physician, you can call our [facility] at [phone] for non-emergency needs. Please return to the emergency department if you develop a severe or sudden change in your symptoms, a fever over 100.4 that does not improve with Tylenol or Ibuprofen, recurrent vomiting, or any other new or worsening symptoms or concerns. Prescriptions: No Action baclofen 10 mg Tablet 10 mg PO BID 30 Days Qty: 60 0RF buspirone 10 mg Tablet 10 mg PO TID 30 Days Qty: 90 0RF mirtazapine 7.5 mg Tablet 7.5 mg PO BEDTIME 30 Days Qty: 30 0RF olanzapine 10 mg Tablet 10 mg PO BEDTIME 30 Days Qty: 30 0RF olanzapine 5 mg Tablet 5 mg PO TID PRN (Reason: agitation) 30 Days Qty: 90 0RF lactulose 10 gram/15 mL Solution 40 g PO DAILY 30 Days Qty: 1800 0RF divalproex 250 mg Tablet,Delayed Release (Dr/Ec) 750 mg PO BID 30 Days Qty: 180 0RF benztropine 1 mg Tablet 1 mg PO BID 30 Days Qty: 60 0RF Print Language: Hong Konger
[2024-12-12 00:30] VITALS: BP 108/71; PULSE 65; RESP 16; TEMP 36.7; O2SAT 100
[2024-12-12 00:32] VITALS: BP 108/71; PULSE 65; RESP 16; TEMP 36.7; O2SAT 100
--- NOTE | 2024-12-12 00:33 | PC.NURSE ---
pt remains awake and alert, requesting to go home, VS stable.
== END 2024-12-12 00:32 | disposition home or self-care (01) ==
PROVIDERS: Emergency Provider Internal Medicine
DX: T40.1X1A Poisoning by heroin, accidental (unintentional), initial encounter (principal); R40.4 Transient alteration of awareness; Y92.9 Unspecified place or not applicable; Z71.51 Drug abuse counseling and surveillance of drug abuser
CPT/HCPCS: 99282; 99283

== ENCOUNTER 2024-12-13 17:32 | Inpatient (IN) | payer MEDICARE, MEDICAID, SELFPAY ==
[2024-12-13] VITALS (13 sets, daily range): BP systolic 94–156; BP diastolic 53–109; PULSE 35–81; RESP 5–22; TEMP 36.1–36.2; O2SAT 98–100; BMI 29.5
--- NOTE | 2024-12-13 | ECG_ITS ---
Test Reason : bradycardia Blood Pressure : */* mmHG Vent. Rate : 36 BPM Atrial Rate : 36 BPM P-R Int : 152 ms QRS Dur : 88 ms QT Int : 456 ms P-R-T Axes : * 63 75 degrees QTcB Int : 352 ms Marked sinus bradycardia Abnormal ECG When compared with ECG of 13-Dec-2024 17:47, Sinus rhythm has replaced Junctional rhythm Referred By: Ez Hebert Electronically Signed By: RACHEL ROSARIO
--- NOTE | 2024-12-13 | ECG_ITS ---
Test Reason : unresponsive Blood Pressure : */* mmHG Vent. Rate : 42 BPM Atrial Rate : * BPM P-R Int : * ms QRS Dur : 88 ms QT Int : 416 ms P-R-T Axes : * 61 76 degrees QTcB Int : 347 ms Junctional bradycardia Abnormal ECG When compared with ECG of 04-Jul-2024 18:18, Junctional rhythm has replaced Sinus rhythm Referred By: Ez Hebert Electronically Signed By: RACHEL ROSARIO
--- NOTE | ~2024-12-13 | XR_ITS ---
CLINICAL HISTORY: OD, suspect aspiration 1 view chest x-ray Comparison: None provided Findings: The lungs are clear. No suspicious airspace filling process. Heart size is normal. No acute fracture. IMPRESSION: 1. No acute findings. This document has been electronically signed by: Quyen Mena MD on 12/13/2024 18:24:42
--- NOTE | ~2024-12-13 | CT_ITS ---
CLINICAL HISTORY: fall CT cervical spine without contrast Comparison: CT/SR - CT HEAD WITHOUT IV CONTRAST - 12/10/22 22:54 EDT Findings: Normal vertebral body alignment. No significant degenerative change. No acute fractures or dislocations. Visualized intracranial contents are unremarkable. No cervical fluid collections or masses. No consolidation or effusion at the lung apices. IMPRESSION: No acute findings. This document has been electronically signed by: Quyen Mena MD on 12/13/2024 20:33:47
--- NOTE | ~2024-12-13 | CT_ITS ---
CLINICAL HISTORY: fall CT head without contrast Comparison: CT/SR - CT HEAD WITHOUT IV CONTRAST - 12/10/22 22:54 EDT Findings: No intra-axial mass, midline shift, hydrocephalus, or acute hemorrhage. No significant atrophy-like change or white matter disease. There is no sinus or mastoid fluid. The orbits are within normal limits. No skull fracture. IMPRESSION: 1. No acute intracranial findings. This document has been electronically signed by: Quyen Mena MD on 12/13/2024 20:31:29
[2024-12-13] MEDS: Naloxone HCl Nasal 4 MG SPRAY NOSTRILALT (17:58)
[2024-12-13 18:14] LABS: MANUAL DIFF FLAG NO
--- NOTE | 2024-12-13 18:14 | ED_ITS ---
HPI - Altered Mental Status General Chief Complaint: ETOH/Substance Use Stated Complaint: OD,Found unresponsive, 4 rounds of narcan given Time Seen by Provider: 12/13/24 17:58 History of Present Illness ED Provider: manisha HPI narrative: OD from field. No hx from pt w/w condition. 12-14 of IM naloxone from field EMS. Euglycemic. Found prone. Zain. No hypotension. Noted R posterior upper arm infections/ulceration with weeping. Related Data Home Medications ?Medication ?Instructions ?Recorded ?Confirmed Unobtainable 12/14/24 12/14/24 Allergies Allergy/AdvReac Type Severity Reaction Status Date / Time morphine (MORPHINE) AdvReac Unknown NAUSEA Verified 12/13/24 18:16 PMF Past Medical History Medical History Behavior concern in adult Agitation Opioid use disorder Cocaine use disorder Nonspecific ST-T wave electrocardiographic changes Accidental overdose Polysubstance (including opioids) dependence, daily use PCP abuse PTSD (post-traumatic stress disorder) Schizoaffective disorder, bipolar type Suicidal behavior Depression Anxiety Schizophrenia Bipolar affective Schizophrenia Social History Social History (Updated 12/14/24 @ 09:03 by CHAZ Coleman) Household Members: Family Household Members Other:: parents Housing: House Do you presently have visiting nurse or other home services: No Alcohol intake: current Alcohol intake frequency: does not drink Alcohol type: hard liquor Comment: daily 6 nips Patient Tobacco Use Status: Current everyday Tobacco user Cigarette Packs Per Day: 0.25 Cigarettes Per Day: 5.0 Years Smoked: 10 e-Cigarette/Vaping Use: Never Used Second Hand Smoke Exposure: No Substance Use Type: Crack/Cocaine, Heroin, Marijuana and Other service: No Sexual orientation: Straight/Heterosexual Physical Exam ED Vital Signs: Vital Signs - 24 hr 12/13/24 18:00 12/13/24 18:22 12/13/24 19:00 Temperature 97.0 F Pulse Rate 41 L 39 L 38 L Respiratory Rate 5 L 21 H 16 Blood Pressure 116/76 110/70 Pulse Oximetry 98 100 100 Oxygen Delivery Method Nasal Cannula Nasal Cannula Nasal Cannula Oxygen Flow Rate 6 6 12/13/24 19:30 12/13/24 20:00 12/13/24 20:15 Temperature 97.1 F Pulse Rate 37 L 35 L 81 Respiratory Rate 18 17 17 Blood Pressure 109/68 104/58 L 156/109 H Pulse Oximetry 100 100 100 Oxygen Delivery Method Nasal Cannula Nasal Cannula Nasal Cannula Oxygen Flow Rate 6 4 2 12/13/24 20:26 12/13/24 21:00 12/13/24 21:40 Temperature Pulse Rate 77 47 L 35 L Respiratory Rate 19 18 14 Blood Pressure 149/104 H 111/70 100/63 Pulse Oximetry 99 98 99 Oxygen Delivery Method Room Air Room Air Room Air Oxygen Flow Rate 12/13/24 21:45 12/13/24 22:00 12/13/24 22:50 Temperature Pulse Rate 63 61 36 L Respiratory Rate 16 17 18 Blood Pressure 127/91 H 104/59 L Pulse Oximetry 99 98 Oxygen Delivery Method Room Air Room Air Oxygen Flow Rate 12/13/24 23:56 12/14/24 00:05 12/14/24 00:37 Temperature Pulse Rate 35 L 35 L 35 L Respiratory Rate 22 H 21 H 24 H Blood Pressure 94/53 L 92/54 L 85/48 L Pulse Oximetry 100 100 100 Oxygen Delivery Method Room Air Room Air Oxygen Flow Rate 12/14/24 00:44 12/14/24 00:59 12/14/24 02:44 Temperature Pulse Rate 35 L 33 L 34 L Respiratory Rate 22 H 22 H 19 Blood Pressure 92/52 L 91/52 L 88/54 L Pulse Oximetry 100 100 100 Oxygen Delivery Method Room Air Room Air Oxygen Flow Rate 12/14/24 03:12 12/14/24 03:18 12/14/24 03:36 Temperature Pulse Rate 32 L 32 L 37 L Respiratory Rate 16 Blood Pressure 81/47 L 92/54 L 115/83 Pulse Oximetry 100 Oxygen Delivery Method Room Air Oxygen Flow Rate 12/14/24 03:57 12/14/24 04:36 12/14/24 04:55 Temperature Pulse Rate 34 L 36 L 41 L Respiratory Rate Blood Pressure 103/66 110/80 109/63 Pulse Oximetry Oxygen Delivery Method Oxygen Flow Rate 12/14/24 05:00 12/14/24 05:35 12/14/24 05:56 Temperature Pulse Rate 36 L 36 L Respiratory Rate 20 Blood Pressure 99/62 91/58 L 93/59 L Pulse Oximetry 99 Oxygen Delivery Method Room Air Oxygen Flow Rate 12/14/24 06:30 12/14/24 06:59 12/14/24 07:05 Temperature Pulse Rate 33 L 34 L 35 L Respiratory Rate 18 Blood Pressure 101/67 98/65 98/50 L Pulse Oximetry 100 100 Oxygen Delivery Method Room Air Room Air Oxygen Flow Rate 12/14/24 07:33 12/14/24 08:43 12/14/24 09:15 Temperature Pulse Rate 36 L 34 L 35 L Respiratory Rate 19 18 Blood Pressure 102/66 102/63 99/62 Pulse Oximetry 100 Oxygen Delivery Method Room Air Oxygen Flow Rate BMI result Body Mass Index 29.5 Course Course Course Narrative: Time: 06:46 Date: 12/14/24 Provider: Tyree Goff MD Patient in physician observation for overdose evaluation found unresponsive by bystanders and given 12 mg of Narcan. Patient also received 2 mg of Narcan by EMS.? Patient has been in the emergency department for 13 hours. CBC, VBG, CMP, troponin were unremarkable. Urine tox was positive for fentanyl, cocaine and marijuana. Alcohol was below detectable limits. No acute events reported overnight. I did consult our recovery team for SUDE evaluation Will continue to monitor. Tyree Goff MD 12/14/24 at 09:39 hours I assumed care of this patient from my colleague, Dr. Jazmin Marks at 07:00 hours. Patient was presented to the hospitalist service but they wanted to observe the patient told 08:30 hours to make sure that he was not hypotensive. Patient's blood pressure was stable but the patient remains bradycardic. Patient was admitted to the hospitalist service for further treatment. Medications Administered Generic Name Dose Route Start Last Admin Trade Name Freq PRN Reason Stop Dose Admin Silver Sulfadiazine 1 appl 12/14/24 10:05 12/14/24 10:27 Silver Sulfadiazine 1 % Cream 20 Gm Tube TOPICAL 1 appl DAILY LEONOR Administration Sodium Chloride 3 ml 12/14/24 16:00 12/15/24 08:20 0.9 % Sodium Chloride Flush 3 Ml Syringe IVFLUSH Not Given QSHIFT LEONOR Discontinued Medications Generic Name Dose Route Start Last Admin Trade Name Freq PRN Reason Stop Dose Admin Atropine Sulfate 0.5 mg 12/13/24 20:04 12/13/24 20:09 Atropine Sulfate 1 Mg/10 Ml Syringe IVPUSH 12/13/24 20:05 0.5 mg STAT STA Administration Atropine Sulfate 0.5 mg 12/13/24 20:14 12/13/24 20:14 Atropine Sulfate 1 Mg/10 Ml Syringe IVPUSH 12/13/24 20:15 0.5 mg ONCE ONE Administration Atropine Sulfate 0.5 mg 12/13/24 21:02 12/13/24 21:41 Atropine Sulfate 1 Mg/Ml Vial IVPUSH 12/13/24 21:03 0.5 mg [id number] ONE Administration Sodium Chloride 1,000 mls @ 999 mls/hr 12/13/24 18:15 12/13/24 19:05 Ns IV 12/13/24 19:15 Infused .Q1H1M LEONOR Infusion Sodium Chloride 1,000 mls @ 999 mls/hr 12/14/24 01:00 12/14/24 02:08 Ns IV 12/14/24 02:00 Infused .Q1H1M LEONOR Infusion Sodium Chloride 1,000 mls @ 999 mls/hr 12/14/24 02:06 12/14/24 03:13 Ns IVCONT 12/14/24 03:06 Infused .Q1H1M ONE Infusion Norepinephrine Bitartrate 8 mg in 250 mls @ 0 mls/hr 12/14/24 03:15 12/14/24 09:15 Levophed IVCONT Infused .Q0M LEONOR Titration Protocol Per Protocol Sodium Chloride 1,000 mls @ 999 mls/hr 12/14/24 06:30 12/14/24 07:34 Ns IV 12/14/24 07:30 Infused .Q1H1M LEONOR Infusion Lactated Ringer's 1,000 mls @ 125 mls/hr 12/14/24 09:00 12/15/24 10:16 Lr IVCONT Not Given .Q8H LEONOR Midodrine 10 mg 12/14/24 05:00 12/14/24 05:35 Midodrine Hcl 10 Mg Tablet PO 12/14/24 05:01 10 mg ONCE ONE Administration Naloxone HCl 8 mg 12/13/24 17:55 12/13/24 18:00 Naloxone Hcl 2 Mg/2 Ml Syringe IVPUSH 12/13/24 17:56 8 mg ONCE ONE Administration Naloxone HCl 8 mg 12/13/24 18:01 12/13/24 18:03 Naloxone Hcl 2 Mg/2 Ml Syringe IVPUSH 12/13/24 18:02 Not Given ONCE ONE Naloxone HCl 4 mg 12/13/24 17:55 12/13/24 17:58 Naloxone Hcl Nasal 4 Mg Darwin NOSTRILALT 12/13/24 17:56 4 mg ONCE ONE Administration Naloxone HCl 8 mg 12/13/24 19:00 12/13/24 21:48 Naloxone Hcl Nasal Take Home 4 Mg Darwin NOSTRILALT 12/13/24 19:01 8 mg ONCE ONE Administration Medical Decision Making Lab Data 12/13/24 17:54 12/14/24 09:45 Labs: Lab Results 12/13/24 12/13/24 12/13/24 Range/Units 17:54 18:13 18:17 WBC 9.0 (4.8-10.8) X10*3/uL RBC 4.69 (4.60-5.80) X10*6/uL Hgb 14.4 (14.0-18.0) g/dl Hct 42.7 (42.0-52.0) % MCV 91.0 (80.0-98.0) fL MCH 30.7 (27.0-33.0) pg MCHC 33.7 (31.0-36.0) g/dl RDW 11.9 (11.0-16.0) % Plt Count 190 (160-400) X10*3/uL MPV 11.3 (9.4-12.4) fL Immature Gran % (Auto) 0.3 (0.0-0.4) % Neut % (Auto) 67.8 (45-73) % Lymph % (Auto) 16.3 L (20-40) % [place] % (Auto) 8.3 (2-11) % Eos % (Auto) 6.9 H (0-4) % Baso % (Auto) 0.4 (0-2) % Lymph # (Auto) 1.5 (1.2-4.9) X10*3/uL [place] # (Auto) 0.7 (0.1-1.2) X10*3/uL Eos # (Auto) 0.6 H (0.0-0.4) X10*3/uL Baso # (Auto) 0.0 (0.0-0.2) X10*3/uL Abs Immat Gran (auto) 0.03 (0.00-0.03) X10*3/uL Absolute Neuts (auto) 6.1 (2.0-8.3) x10*3/uL Absolute Nucleated RBC 0.000 (0.0-0.012) X10*3/uL Nucleated RBC % (auto) 0.0 (0.0-0.2) /100WBC VBG pH 7.44 H (7.32-7.43) VBG pCO2 34 mmHg VBG pO2 91 mmHg VBG HCO3 23 (22-26) mmol/L VBG O2 Saturation 98.0 % VBG Base Excess 0.0 mmol/L Sodium 141 (135-145) mmol/L Potassium 4.6 (3.3-5.1) mmol/L Chloride 111 H (96-108) mmol/L Carbon Dioxide 21 L (22-29) mmol/L Anion Gap 14 (12-20) BUN 15 (9-16) mg/dL Creatinine 0.70 (0.5-1.4) mg/dL Estim Creat Clear Calc 161.0 Estimated GFR > 60 Random Glucose 150 H (60-115) mg/dL Lactic Acid 1.0 (0.5-2.0) mmol/L Calcium 9.1 (8.4-10.2) mg/dL Magnesium 2.3 (1.6-2.6) mg/dL Total Bilirubin 0.5 (0.0-1.0) mg/dL AST 26 (5-37) U/L ALT 18 (0-40) U/L Alkaline Phosphatase 55 (39-117) U/L Troponin I High Sens < 2.7 (<3.5-35.0) ng/L Total Protein 6.9 (6.5-8.0) g/dL Albumin 4.3 (3.5-5.0) g/dL Salicylates < 5.0 L (15-30) mg/dL Urine Opiates Screen (Not Detect) Ur Buprenorphine Scrn (Not Detect) ng/mL Ur Oxycodone Screen (Not Detect) ng/mL Urine Methadone Screen (Not Detect) ng/mL Urine Fentanyl Screen (Not Detect) Acetaminophen < 3 (<30) mcg/mL Ur Barbiturates Screen (Not Detect) Ur Phencyclidine Scrn (Not Detect) Ur Amphetamines Screen (Not Detect) U Benzodiazepines Scrn (Not Detect) Urine Cocaine Screen (Not Detect) U Marijuana (THC) Screen (Not Detect) Ethyl Alcohol < 10 mg/dL 12/13/24 12/13/24 Range/Units 21:03 23:54 WBC (4.8-10.8) X10*3/uL RBC (4.60-5.80) X10*6/uL Hgb (14.0-18.0) g/dl Hct (42.0-52.0) % MCV (80.0-98.0) fL MCH (27.0-33.0) pg MCHC (31.0-36.0) g/dl RDW (11.0-16.0) % Plt Count (160-400) X10*3/uL MPV (9.4-12.4) fL Immature Gran % (Auto) (0.0-0.4) % Neut % (Auto) (45-73) % Lymph % (Auto) (20-40) % [place] % (Auto) (2-11) % Eos % (Auto) (0-4) % Baso % (Auto) (0-2) % Lymph # (Auto) (1.2-4.9) X10*3/uL [place] # (Auto) (0.1-1.2) X10*3/uL Eos # (Auto) (0.0-0.4) X10*3/uL Baso # (Auto) (0.0-0.2) X10*3/uL Abs Immat Gran (auto) (0.00-0.03) X10*3/uL Absolute Neuts (auto) (2.0-8.3) x10*3/uL Absolute Nucleated RBC (0.0-0.012) X10*3/uL Nucleated RBC % (auto) (0.0-0.2) /100WBC VBG pH (7.32-7.43) VBG pCO2 mmHg VBG pO2 mmHg VBG HCO3 (22-26) mmol/L VBG O2 Saturation % VBG Base Excess mmol/L Sodium (135-145) mmol/L Potassium 4.5 (3.3-5.1) mmol/L Chloride (96-108) mmol/L Carbon Dioxide (22-29) mmol/L Anion Gap (12-20) BUN (9-16) mg/dL Creatinine (0.5-1.4) mg/dL Estim Creat Clear Calc Estimated GFR Random Glucose (60-115) mg/dL Lactic Acid (0.5-2.0) mmol/L Calcium (8.4-10.2) mg/dL Magnesium 2.2 (1.6-2.6) mg/dL Total Bilirubin (0.0-1.0) mg/dL AST (5-37) U/L ALT (0-40) U/L Alkaline Phosphatase (39-117) U/L Troponin I High Sens (<3.5-35.0) ng/L Total Protein (6.5-8.0) g/dL Albumin (3.5-5.0) g/dL Salicylates (15-30) mg/dL Urine Opiates Screen Not Detected (Not Detect) Ur Buprenorphine Scrn Not Detected (Not Detect) ng/mL Ur Oxycodone Screen Not Detected (Not Detect) ng/mL Urine Methadone Screen Not Detected (Not Detect) ng/mL Urine Fentanyl Screen POSITIVE H (Not Detect) Acetaminophen (<30) mcg/mL Ur Barbiturates Screen Not Detected (Not Detect) Ur Phencyclidine Scrn Not Detected (Not Detect) Ur Amphetamines Screen Not Detected (Not Detect) U Benzodiazepines Scrn Not Detected (Not Detect) Urine Cocaine Screen POSITIVE H (Not Detect) U Marijuana (THC) Screen POSITIVE H (Not Detect) Ethyl Alcohol mg/dL Critical Care Time Critical Care Time Critical Care Time: Yes Total Critical Care Time: 140 Attestation: ED Critical Care: Patient presented with a severe overdose polysubstance likely. The patient required frequent clinical reassessments. He eventually required set up for airway and was nearly intubated. He had continued telemetry with frequent episodes of severe bradycardia requiring atropine. Authorized and Performed by: Ez Hebert MD Total critical care time: Approximately 140 minutes Due to a high probability of clinically significant, life threatening deterioration, the patient required my highest level of preparedness to intervene emergently and I personally spent this critical care time directly and personally managing the patient. This critical care time included obtaining a history; examining the patient; pulse oximetry; ordering and review of studies; arranging urgent treatment with development of a management plan; evaluation of patient's response to treatment; frequent reassessment; and, discussions with other providers. This critical care time was performed to assess and manage the high probability of imminent, life-threatening deterioration that could result in multi-organ failure. It was exclusive of separately billable procedures and treating other patients and teaching time. Discharge Plan Discharge Clinical Impression: Opioid use disorder, Bradycardia Patient Disposition: Admitted As Inpatient Interventions: Admission Worksheet (ED) Last Done: 12/15/24 01:43 Discharge Date/Time: 12/15/24 02:46
[2024-12-13 18:20] LABS: Venous Blood Gas Refer to POC result
[2024-12-13 18:21] LABS: Hematocrit 42.7 % (42.0-52.0); Hemoglobin 14.4 g/dl (14.0-18.0); Imm Gran Abs Auto 0.03 X10*3/uL (0.00-0.03); Imm Gran Pct Auto 0.3 % (0.0-0.4); Lymphocytes Absolute Auto 1.5 X10*3/uL (1.2-4.9); Mean Corpuscular HGB Conc 33.7 g/dl (31.0-36.0); Mean Corpuscular Hemoglobin 30.7 pg (27.0-33.0); Mean Corpuscular Volume 91.0 fL (80.0-98.0); NRBC Abs Auto 0.000 X10*3/uL (0.0-0.012); NRBC Pct Auto 0.0 /100WBC (0.0-0.2); Platelet Count 190 X10*3/uL (160-400); Red Blood Count 4.69 X10*6/uL (4.60-5.80); White Blood Count 9.0 X10*3/uL (4.8-10.8)
[2024-12-13 18:22] LABS: VBG HCO3 23 mmol/L (22-26); VBG O2 % Saturation 98.0 %
[2024-12-13 18:30] LABS: Acetaminophen LAB < 3 mcg/mL (<30); Alanine Aminotransferase 18 U/L (0-40); Albumin Level 4.3 g/dL (3.5-5.0); Alkaline Phosphatase 55 U/L (39-117); Anion Gap 14 (12-20); Aspartate Amino Transferase 26 U/L (5-37); Blood Urea Nitrogen 15 mg/dL (9-16); Calcium 9.1 mg/dL (8.4-10.2); Carbon Dioxide 21 mmol/L (22-29); Chloride 111 mmol/L (96-108); Creatinine Clr Calc Pharmacy 161.0; Estimated Glomerular Filt Rate > 60; Potassium 4.6 mmol/L (3.3-5.1); Salicylate < 5.0 mg/dL (15-30); Sodium 141 mmol/L (135-145); Total Protein 6.9 g/dL (6.5-8.0)
[2024-12-13 18:38] LABS: Troponin-I High Sensitivity < 2.7 ng/L (<3.5-35.0)
[2024-12-13 20:21] LABS: Magnesium 2.3 mg/dL (1.6-2.6)
[2024-12-13 21:28] LABS: Magnesium 2.2 mg/dL (1.6-2.6); Potassium 4.5 mmol/L (3.3-5.1)
[2024-12-13] MEDS: Naloxone HCl Nasal TAKE HOME 4 MG SPRAY 8 MG NOSTRILALT (21:48)
--- NOTE | 2024-12-13 23:00 | PC.NURSE ---
assumed care of patient at this time, pt in stretcher no apparent distress noted
[2024-12-14] VITALS (26 sets, daily range): BP systolic 81–125; BP diastolic 47–83; PULSE 32–80; RESP 13–24; TEMP 36.4–36.5; O2SAT 98–100
--- NOTE | 2024-12-14 00:10 | PC.NURSE ---
Per cayden Edward, heart rate okay unless drops below 30.
[2024-12-14 00:20] LABS: Cannabinoid Screen Urine POSITIVE (Not Detect)
--- NOTE | 2024-12-14 00:37 | PC.NURSE ---
patient bp 85/[address] Cabrera, and IVF hung at this time
--- NOTE | 2024-12-14 03:12 | PC.NURSE ---
Levophed infusion initiated due to persistent hypotension and bradycardia. Pt sleeping in bed at this time.
--- NOTE | 2024-12-14 03:28 | PC.NURSE ---
Assumed care of pt approx 0300, pt resting in bed with eyes closed resp even/unlabored. Levophed gtt initiatied, pt with hypotension and bradycardia. MD Marks aware.
--- NOTE | 2024-12-14 03:57 | PC.NURSE ---
Per dental laboratory technology teacher pt HR down to 29, upon assessment pt HR back to 32. MD Marks notified.
--- NOTE | 2024-12-14 05:38 | PC.NURSE ---
Levophed gtt stopped per MD ling, bp 90's/40's. Pt woken up, alert and answering questions. Pt given po midodrine, tolerated well.
--- NOTE | 2024-12-14 06:17 | PC.NURSE ---
Per MD ling, additional 1L NS hung. Pt bp 90/60, HR 37.
--- NOTE | 2024-12-14 08:42 | PC.NURSE ---
Pt voided approx 300 ml of clear edenilson urine in urinal.
--- NOTE | 2024-12-14 08:52 | P.HPHOSP_ITS ---
History of Present Illness Date of Service: 12/14/24 Attending physician on admission: Virginia Munson Chief Complaint: overdose This is a 29-year-old male who brought in after he was found unresponsive by bystanders. Per emergency room documentation he was given 12 mg of Narcan on seen initially and 2 mg of Narcan by EMS. Urine tox screen was positive for fentanyl, cocaine, marijuana. Alcohol below detectable limits. He was noted to have severe bradycardia with heart rate in the 30s, received 3 doses of atropine with no significant improvement. Heart rate has remained persistently in the 30s. Blood pressure dipped overnight and he was briefly on Levophed. He was weaned off of Levophed and blood pressure has remained around 100 systolic. Patient denies any dizziness, chest pain, shortness of breath. Patient reports drinking 6 nips of hard alcohol daily, snorting heroin and cocaine daily. He denies the use of alcohol withdrawal in the past. Brain CT, cervical spine CT and chest x-ray were unremarkable. Due to persistent bradycardia patient will be admitted to telemetry for close cardiac monitoring. Review of Systems 2 Review of Systems: Yes all other systems are reviewed and are negative Constitutional: Constitutional: Denies chills and Denies fever(s) Cardiovascular: Cardiovascular: Denies chest pain, Denies lightheadedness and Denies palpitations Gastrointestinal: Gastrointestinal: Denies abdominal pain, Denies diarrhea and Denies vomiting Endocrine: Endocrine: Denies palpitations [facility] Medical History Behavior concern in adult Agitation Opioid use disorder Cocaine use disorder Nonspecific ST-T wave electrocardiographic changes Accidental overdose Polysubstance (including opioids) dependence, daily use PCP abuse PTSD (post-traumatic stress disorder) Schizoaffective disorder, bipolar type Suicidal behavior Depression Anxiety Schizophrenia Bipolar affective Schizophrenia Social History (Updated 12/14/24 @ 09:03 by CHAZ Coleman) Household Members: Family Housing: House Do you presently have visiting nurse or other home services: No Alcohol intake: current Alcohol intake frequency: does not drink Alcohol type: hard liquor Comment: daily 6 nips Patient Tobacco Use Status: Current everyday Tobacco user Cigarette Packs Per Day: 0.25 Cigarettes Per Day: 5.0 Years Smoked: 10 e-Cigarette/Vaping Use: Never Used Second Hand Smoke Exposure: No Substance Use Type: Crack/Cocaine, Heroin, Marijuana and Other Substance Use Type Other:: pt admits to acid and heroin before losing consciousness again Advance Directives: No Advance Directives Information Provided: No Do you have a plan to hurt others: No Plan service: No Sexual orientation: Straight/Heterosexual Meds Allergies Allergy/AdvReac Type Severity Reaction Status Date / Time morphine (MORPHINE) AdvReac Unknown NAUSEA Verified 12/13/24 18:16 Active Medications: Current Medications Norepinephrine Bitartrate (Levophed) 8 mg in 250 mls @ 0 mls/hr IVCONT .Q0M LEONOR; Protocol Last Titration: 12/14/24 05:00 Dose: 0 mcg/kg/min, 0 mls/hr Home Medications ?Medication ?Instructions ?Recorded ?Confirmed ?Last Taken ?Type aripiprazole lauroxil 882 mg/3.2 3.2 mg IM Q4W 5 Unknown History mL suspension, ext.rel. IM syringe ([place]) benztropine 1 mg tablet 1 mg PO BEDTIME 12/14/24 Un known History divalproex 500 mg tablet,delayed 1,000 mg PO BEDTIME 0 12/14/24 Unknown History release prazosin 1 mg capsule 1 mg PO BEDTIME 12/14/24 Un known History trazodone 100 mg tablet 100 mg PO BEDTIME 12/14/24 Unknown History Physical Exam 2 Vital Signs and Narrative: Vital Signs: Last Vital Signs Temp 97.1 F 12/13/24 19:30 Pulse 34 L 12/14/24 08:43 Resp 18 12/14/24 08:43 BP 102/63 12/14/24 08:43 Pulse Ox 100 12/14/24 07:33 O2 Del Method Room Air 12/14/24 07:33 O2 Flow Rate 2 12/13/24 20:15 Oxygen Flow Rate 6 12/13/24 18:00 BMI result Body Mass Index 29.5 Const: Other: Easily arousable to verbal stimuli General: cooperative and no acute distress Nutritional Appearance: a verage body habitus Orientation/consciousness: patient oriented x3 Resp: Effort & Inspection: normal respiratory effort, able to speak in complete sentences, no respiratory distress and no use of accessory muscles A uscultation: clear to auscultation bilaterally Cardio: Rate: bradycardic GI: Inspection: No distended Palpation (GI): Soft to palpation and nontender Neuro: Other: grossly nonfocal General: patient oriented x3 and moves all extremities Results Labs 12/13/24 17:54 12/13/24 21:03 Labs: Laboratory Results - last 24 hr 12/13/24 12/13/24 12/13/24 17:54 18:13 18:17 MCV 91.0 MCH 30.7 MCHC 33.7 RDW 11.9 Plt Count 190 MPV 11.3 Immature Gran % (Auto) 0.3 Neut % (Auto) 67.8 Lymph % (Auto) 16.3 L Mason % (Auto) 8.3 Eos % (Auto) 6.9 H Baso % (Auto) 0.4 Lymph # (Auto) 1.5 Mason # (Auto) 0.7 Eos # (Auto) 0.6 H Baso # (Auto) 0.0 Abs Immat Gran (auto) 0.03 Absolute Neuts (auto) 6.1 Absolute Nucleated RBC 0.000 Nucleated RBC % (auto) 0.0 VBG pH 7.44 H VBG pCO2 34 VBG pO2 91 VBG HCO3 23 VBG O2 Saturation 98.0 VBG Base Excess 0.0 Anion Gap 14 Estim Creat Clear Calc 161.0 Estimated GFR > 60 Random Glucose 150 H Lactic Acid 1.0 Calcium 9.1 Magnesium 2.3 Total Bilirubin 0.5 AST 26 ALT 18 Alkaline Phosphatase 55 Total Protein 6.9 Albumin 4.3 Salicylates < 5.0 L Urine Opiates Screen Ur Buprenorphine Scrn Ur Oxycodone Screen Urine Methadone Screen Urine Fentanyl Screen Acetaminophen < 3 Ur Barbiturates Screen Ur Phencyclidine Scrn Ur Amphetamines Screen U Benzodiazepines Scrn Urine Cocaine Screen U Marijuana (THC) Screen Ethyl Alcohol < 10 12/13/24 12/13/24 21:03 23:54 MCV MCH MCHC RDW Plt Count MPV Immature Gran % (Auto) Neut % (Auto) Lymph % (Auto) Mason % (Auto) Eos % (Auto) Baso % (Auto) Lymph # (Auto) Mason # (Auto) Eos # (Auto) Baso # (Auto) Abs Immat Gran (auto) Absolute Neuts (auto) Absolute Nucleated RBC Nucleated RBC % (auto) VBG pH VBG pCO2 VBG pO2 VBG HCO3 VBG O2 Saturation VBG Base Excess Anion Gap Estim Creat Clear Calc Estimated GFR Random Glucose Lactic Acid Calcium Magnesium 2.2 Total Bilirubin AST ALT Alkaline Phosphatase Total Protein Albumin Salicylates Urine Opiates Screen Not Detected Ur Buprenorphine Scrn Not Detected Ur Oxycodone Screen Not Detected Urine Methadone Screen Not Detected Urine Fentanyl Screen POSITIVE H Acetaminophen Ur Barbiturates Screen Not Detected Ur Phencyclidine Scrn Not Detected Ur Amphetamines Screen Not Detected U Benzodiazepines Scrn Not Detected Urine Cocaine Screen POSITIVE H U Marijuana (THC) Screen POSITIVE H Ethyl Alcohol Assessment and Plan (1) Polysubstance (including opioids) dependence, daily use: Status: Acute (2) Bradycardia: Status: Acute Plan This is a 29-year-old male who denies any past medical history but has significant mental health and substance use history brought into the emergency department after he was found unresponsive, noted to be severely bradycardic briefly requiring pressors in the ED Sinus bradycardia Likely due to drug overdose, concern for Medetomidine received 3 doses of atropine in ED with no change in HR currently pt is asymptomatic close tele monitoring; pacer pads on pt supportive care polysubstance use Tox screen positive for fentanyl, cocaine, marijuana; concern for medetomidine as above Patient also reports drinking 6 nips daily Does not appear to be withdrawing at this time. Denies any history of alcohol withdrawal although unclear if patient has an accurate historian Monitor CIWA, COWS monitor for tachycardia, hypertension, tremors, nausea and vomiting as these can be signs of medetomidine withdrawal addiction medicine consult take home narcan upon discharge Schizoaffective disorder h/o medication noncompliance multiple inpatient psych admissions denies taking any medication on a daily basis awaiting med rec - resume baseline meds per previous psych notes, pt on depakote, will check level and ammonia level may need psych consult depending on clinical course Right arm wound Does not appear infected at this time Continue local wound care Wound care nurse consulted tobacco use disorder smoking cessation advised dvt ppx - mechanical devices code status - full code Patient requires ongoing inpatient stay for close cardiac monitoring and management of severe bradycardia and hypotension with risk for withdrawal in the setting of polysubstance use Quality Stroke Does the patient have a stroke diagnosis?: No VTE Prior VTE?: No VTE Risk Level:: Medical - moderate - high VTE Device Contraindication: N/A - Device Ordered VTE Drug Contraindication: Treatment Not Indicated
[2024-12-14] MEDS: Lactated Ringers 1,000 ML 125 ML IVCONT ×2 (09:46→18:56)
[2024-12-14 10:01] LABS: Ammonia 59 umol/L (13-55)
--- NOTE | 2024-12-14 10:26 | HO.ADDICT_ITS ---
History of Present Illness Date of Service: 12/14/2024 Chief Complaint: bradycardia Reason for Consult: opioid overdose HPI Narrative: Patient is a 29 year old male with history of OUD, schizoaffetive disorder, medically admitted following opioid overdose and persistent bradycardia. Patient seen in room 5 of main ED. He is awake, alert, sitting up in bed eating a sandwich. Minimal engagement with interview. Very long pauses before answering open ended questions with terse responses. He estimates that he has had over 20 overdoses. Chart review shows that at least 8, which brought him to [facility], have happened since May 2024. When asked asked how much he is using he responded 2 then a few moments later bags . Reports IN use. When asked who he lives with, after several seconds he responded that he did not know. When asked about treatment for substance use, he nodded yes. When asked about medications he shook his head no. When asked about admission for treatment he shook his head no. When asked about previous admissions for substance use treatment he said yes, and when asked if he found it helpful he shook his head yes and no. Denies any alcohol use. Denies any withdrawal sx. Appears overall comfortable, no diaphoresis or restlessness noted. And no GI sx as patient was eating and drinking without issue. HR now improved (50's) overnight was in low 30s ---likely due to medetomidine which is currently in the drug supply in this area. Past Psychiatric History: hx of multiple inpatient psychiatric hospitalizations. hx of multiple section 35's. SA: denies SIB: reports h/o cutting. HIB: h/o aggression toward family members Has PACT services Medical Evaluation Reviewed: Yes Review of Systems Constitutional: Reports as per HPI and Reports no additional constitutional complaints Diagnostics Vital Signs (24Hr): Vital Signs - 24 hr 12/13/24 18:00 12/13/24 18:22 12/13/24 19:00 Temperature 97.0 F Pulse Rate 41 L 39 L 38 L Respiratory Rate 5 L 21 H 16 Blood Pressure 116/76 110/70 Pulse Oximetry 98 100 100 Oxygen Delivery Method Nasal Cannula Nasal Cannula Nasal Cannula Oxygen Flow Rate 6 6 12/13/24 19:30 12/13/24 20:00 12/13/24 20:15 Temperature 97.1 F Pulse Rate 37 L 35 L 81 Respiratory Rate 18 17 17 Blood Pressure 109/68 104/58 L 156/109 H Pulse Oximetry 100 100 100 Oxygen Delivery Method Nasal Cannula Nasal Cannula Nasal Cannula Oxygen Flow Rate 6 4 2 12/13/24 20:26 12/13/24 21:00 12/13/24 21:40 Temperature Pulse Rate 77 47 L 35 L Respiratory Rate 19 18 14 Blood Pressure 149/104 H 111/70 100/63 Pulse Oximetry 99 98 99 Oxygen Delivery Method Room Air Room Air Room Air Oxygen Flow Rate 12/13/24 21:45 12/13/24 22:00 12/13/24 22:50 Temperature Pulse Rate 63 61 36 L Respiratory Rate 16 17 18 Blood Pressure 127/91 H 104/59 L Pulse Oximetry 99 98 Oxygen Delivery Method Room Air Room Air Oxygen Flow Rate 12/13/24 23:56 12/14/24 00:05 12/14/24 00:37 Temperature Pulse Rate 35 L 35 L 35 L Respiratory Rate 22 H 21 H 24 H Blood Pressure 94/53 L 92/54 L 85/48 L Pulse Oximetry 100 100 100 Oxygen Delivery Method Room Air Room Air Oxygen Flow Rate 12/14/24 00:44 12/14/24 00:59 12/14/24 02:44 Temperature Pulse Rate 35 L 33 L 34 L Respiratory Rate 22 H 22 H 19 Blood Pressure 92/52 L 91/52 L 88/54 L Pulse Oximetry 100 100 100 Oxygen Delivery Method Room Air Room Air Oxygen Flow Rate 12/14/24 03:12 12/14/24 03:18 12/14/24 03:36 Temperature Pulse Rate 32 L 32 L 37 L Respiratory Rate 16 Blood Pressure 81/47 L 92/54 L 115/83 Pulse Oximetry 100 Oxygen Delivery Method Room Air Oxygen Flow Rate 12/14/24 03:57 12/14/24 04:36 12/14/24 04:55 Temperature Pulse Rate 34 L 36 L 41 L Respiratory Rate Blood Pressure 103/66 110/80 109/63 Pulse Oximetry Oxygen Delivery Method Oxygen Flow Rate 12/14/24 05:00 12/14/24 05:35 12/14/24 05:56 Temperature Pulse Rate 36 L 36 L Respiratory Rate 20 Blood Pressure 99/62 91/58 L 93/59 L Pulse Oximetry 99 Oxygen Delivery Method Room Air Oxygen Flow Rate 12/14/24 06:30 12/14/24 06:59 12/14/24 07:05 Temperature Pulse Rate 33 L 34 L 35 L Respiratory Rate 18 Blood Pressure 101/67 98/65 98/50 L Pulse Oximetry 100 100 Oxygen Delivery Method Room Air Room Air Oxygen Flow Rate 12/14/24 07:33 12/14/24 08:43 12/14/24 09:15 Temperature Pulse Rate 36 L 34 L 35 L Respiratory Rate 19 18 Blood Pressure 102/66 102/63 99/62 Pulse Oximetry 100 Oxygen Delivery Method Room Air Oxygen Flow Rate 12/14/24 09:52 Temperature Pulse Rate 55 Respiratory Rate 18 Blood Pressure 113/69 Pulse Oximetry Oxygen Delivery Method Oxygen Flow Rate BMI result Body Mass Index 29.5 Labs 12/13/24 17:54 12/13/24 21:03 Labs: Laboratory Results - last 48 hr 12/13/24 12/13/24 12/13/24 17:54 18:13 18:17 WBC 9.0 RBC 4.69 Hgb 14.4 Hct 42.7 MCV 91.0 MCH 30.7 MCHC 33.7 RDW 11.9 Plt Count 190 MPV 11.3 Immature Gran % (Auto) 0.3 Neut % (Auto) 67.8 Lymph % (Auto) 16.3 L Chester % (Auto) 8.3 Eos % (Auto) 6.9 H Baso % (Auto) 0.4 Lymph # (Auto) 1.5 Chester # (Auto) 0.7 Eos # (Auto) 0.6 H Baso # (Auto) 0.0 Abs Immat Gran (auto) 0.03 Absolute Neuts (auto) 6.1 Absolute Nucleated RBC 0.000 Nucleated RBC % (auto) 0.0 VBG pH 7.44 H VBG pCO2 34 VBG pO2 91 VBG HCO3 23 VBG O2 Saturation 98.0 VBG Base Excess 0.0 Sodium 141 Potassium 4.6 Chloride 111 H Carbon Dioxide 21 L Anion Gap 14 BUN 15 Creatinine 0.70 Estim Creat Clear Calc 161.0 Estimated GFR > 60 Random Glucose 150 H Lactic Acid 1.0 Calcium 9.1 Magnesium 2.3 Total Bilirubin 0.5 AST 26 ALT 18 Alkaline Phosphatase 55 Ammonia Troponin I High Sens < 2.7 Total Protein 6.9 Albumin 4.3 Salicylates < 5.0 L Urine Opiates Screen Ur Buprenorphine Scrn Ur Oxycodone Screen Urine Methadone Screen Urine Fentanyl Screen Acetaminophen < 3 Ur Barbiturates Screen Valproic Acid Ur Phencyclidine Scrn Ur Amphetamines Screen U Benzodiazepines Scrn Urine Cocaine Screen U Marijuana (THC) Screen Ethyl Alcohol < 10 12/13/24 12/13/24 12/14/24 21:03 23:54 09:45 WBC RBC Hgb Hct MCV MCH MCHC RDW Plt Count MPV Immature Gran % (Auto) Neut % (Auto) Lymph % (Auto) Chester % (Auto) Eos % (Auto) Baso % (Auto) Lymph # (Auto) Chester # (Auto) Eos # (Auto) Baso # (Auto) Abs Immat Gran (auto) Absolute Neuts (auto) Absolute Nucleated RBC Nucleated RBC % (auto) VBG pH VBG pCO2 VBG pO2 VBG HCO3 VBG O2 Saturation VBG Base Excess Sodium Potassium 4.5 Chloride Carbon Dioxide Anion Gap BUN Creatinine Estim Creat Clear Calc Estimated GFR Random Glucose Lactic Acid Calcium Magnesium 2.2 Total Bilirubin AST ALT Alkaline Phosphatase Ammonia 59 H Troponin I High Sens Total Protein Albumin Salicylates Urine Opiates Screen Not Detected Ur Buprenorphine Scrn Not Detected Ur Oxycodone Screen Not Detected Urine Methadone Screen Not Detected Urine Fentanyl Screen POSITIVE H Acetaminophen Ur Barbiturates Screen Not Detected Valproic Acid < 12.5 L Ur Phencyclidine Scrn Not Detected Ur Amphetamines Screen Not Detected U Benzodiazepines Scrn Not Detected Urine Cocaine Screen POSITIVE H U Marijuana (THC) Screen POSITIVE H Ethyl Alcohol Mental Status Exam Mental Status Exam Level of Consciousness: Awake and Alert Patient Behavior: Guarded Affect Description: Flat Speech Pattern: Long Pauses Thought Content: positive for [place] and positive for Thought Blocking Judgement: Poor Medications Medications Current Medications Acetaminophen (Acetaminophen 325 Mg Tablet) 650 mg PO Q6H PRN PRN Reason: Pain, Mild 1-3,fever,headache Calcium Carbonate (Calcium Carbonate 750 Mg Tab.Chew) 750 mg PO Q4H PRN PRN Reason: Heartburn Lactated Ringer's (Lr) 1,000 mls @ 125 mls/hr IVCONT .Q8H REPLACED BY [facility] Last Admin: 12/14/24 09:46 Dose: 125 mls/hr Magnesium Hydroxide (Milk Of Magnesia 30 Ml Oral.Susp) 30 ml PO DAILY PRN PRN Reason: Constipation Silver Sulfadiazine (Silver Sulfadiazine 1 % Cream 20 Gm Tube) 1 appl TOPICAL DAILY REPLACED BY [facility] Sodium Chloride (0.9 % Sodium Chloride Flush 3 Ml Syringe) 3 ml IVFLUSH QSHIFT LEONOR Allergies Allergies Allergy/AdvReac Type Severity Reaction Status Date / Time morphine (MORPHINE) AdvReac Unknown NAUSEA Verified 12/13/24 18:16 Assessment & Plan Assessment & Plan (1) Opioid use disorder: Status: Acute Code(s): F11.90 - Opioid use, unspecified, uncomplicated Assessment and Plan: * s/p overdose with significant bradycardia (now resolved) likely related to medetomidine in the drug supply * Very difficult to engage. limited insight regarding continuous overdoses. High risk for fatal overdose * may benefit from CARE team evaluation due to ongoing risk to self * will attempt to meet again and discuss MOUD as a way to decrease risk for fatal overdose * HIV and hepatitis screens with next lab draw Total time managing care of this patient today __30__ minutes. [facility] Past Medical History Medical History Behavior concern in adult Agitation Opioid use disorder Cocaine use disorder Nonspecific ST-T wave electrocardiographic changes Accidental overdose Polysubstance (including opioids) dependence, daily use PCP abuse PTSD (post-traumatic stress disorder) Schizoaffective disorder, bipolar type Suicidal behavior Depression Anxiety Schizophrenia Bipolar affective Schizophrenia Social History Social History (Updated 12/14/24 @ 09:03 by CHAZ Coleman) Household Members: Family Housing: House Do you presently have visiting nurse or other home services: No Alcohol intake: current Alcohol intake frequency: does not drink Alcohol type: hard liquor Comment: daily 6 nips Patient Tobacco Use Status: Current everyday Tobacco user Cigarette Packs Per Day: 0.25 Cigarettes Per Day: 5.0 Years Smoked: 10 e-Cigarette/Vaping Use: Never Used Second Hand Smoke Exposure: No Substance Use Type: Crack/Cocaine, Heroin, Marijuana and Other Substance Use Type Other:: pt admits to acid and heroin before losing consciousness again Advance Directives: No Advance Directives Information Provided: No Do you have a plan to hurt others: No Plan service: No Sexual orientation: Straight/Heterosexual
[2024-12-14] MEDS: Silver Sulfadiazine 1 % Cream 20 GM TUBE 1 APPL TOPICAL (10:27)
[2024-12-14 10:30] LABS: Anion Gap 9 (12-20); Blood Urea Nitrogen 11 mg/dL (9-16); Calcium 8.4 mg/dL (8.4-10.2); Carbon Dioxide 21 mmol/L (22-29); Chloride 114 mmol/L (96-108); Creatinine Clr Calc Pharmacy 178.9; Estimated Glomerular Filt Rate > 60; Potassium 4.2 mmol/L (3.3-5.1); Sodium 140 mmol/L (135-145)
--- NOTE | 2024-12-14 10:48 | PC.NURSE ---
Addendum entered by Starr Lopez RN 12/14/24 11:08: new pacer pads placed on patient Original Note: Pt awake and alert, requested sandwich and bharat mario. Pt tolerated well. Posterior portion of left arm noted to have reddened/scabbed area with minimal amount of purulent drainage noted. PA aware and new orders in place.
--- NOTE | 2024-12-14 14:25 | PC.NURSE ---
Pt found to be in room removing monitors and IV's. Reoriented pt to siutation and applied monitors, new IV to RUE.
--- NOTE | 2024-12-14 14:38 | PHA.MEDREC ---
Addendum entered by Tammy Aguilera [facility] 12/14/24 16:02: REVIEWED Original Note: Pharmacy Consult ? Medication Reconciliation Pharmacy has completed the medication reconciliation. Spoke with pt and he stated he is taking medications at this time but doesn't know the names of any of them and said to call his mother for help. I attempted to call pt mother but her phone is off; I called pt father multiple times today with no luck and had to leave voicemails. I called pt pharmacy and they confirmed they had Prazosin, Divalproex, Trazodone, Bentropine and Apipiprazole but stated the pt never picked them up and they were returned to stock. I marked the med-rec unobtainable and will have Pm team update med rec if father calls back.
--- NOTE | 2024-12-14 15:42 | PC.NURSE ---
report taken from previous rn, pt is caox4 and is calm and cooperative and speaking in clear and even tones. he is in sinus nela on the monitor but has a strong and regular radial pulse and wpd skin. his resps are nonlabored. plan of care for admission is reinforced with patient, he verbalizes understanding
[2024-12-14] MEDS: 0.9 % Sodium Chloride Flush 3 ML SYRINGE IVFLUSH (18:55)
[2024-12-15] MEDS: Lactated Ringers 1,000 ML 125 ML IVCONT (01:47)
[2024-12-15 01:49] VITALS: BP 123/79; PULSE 77; RESP 16; TEMP 36.8; O2SAT 98
[2024-12-15 03:21] VITALS: BP 127/78; PULSE 68; RESP 18; TEMP 36.6; O2SAT 100
[2024-12-15 07:13] VITALS: BP 142/68; PULSE 68; RESP 18; TEMP 37.2; O2SAT 100
[2024-12-15 11:09] VITALS: BP 130/64; PULSE 64; TEMP 37.2; O2SAT 98
--- NOTE | 2024-12-15 13:25 | MHC.CM.PN ---
PT REPORTS HE LIVES WITH HIS PARENTS AND IS INDEPENDENT WITH SELF CARE HE HAS MH SERVICES ONLY DECLINES A HCP PCP: MICHELLE GOMES IMM DELIVERED DCP: HOME TODAY, NO SERVICES PT ARRANGED TRANSPORT
--- NOTE | 2024-12-15 13:48 | P.DS_ITS ---
DS: Providers Provider Date of Service: 12/14/24 Date of admission: 12/14/24 08:42 Date of discharge: 12/15/24 Primary care physician: Unknown Physician Consults: 12/14/24 06:49 ED Recovery Team Consult Stat Comment: Reason for consultation: Overdose, received Narcan, tox screen positive for fentanyl, cocaine, THC 12/14/24 08:48 Addiction Medicine Provider Routine Consulting Provider: Addiction Covering Reason for consultation: polysubstance use Has provider been notified: No 12/14/24 10:01 Consult to Wound Care Routine Reason for consultation: right arm wound 12/15/24 03:09 Addiction Medicine Provider Stat Consulting Provider: Addiction Covering Reason for consultation: alcohol, drugs 12/15/24 03:21 Consult to Wound Care Routine Reason for consultation: Rt arm infection Attending physician on discharge: Virginia Munson DS: Diagnosis Discharge Diagnosis (1) Opioid use disorder: Status: Acute (2) Polysubstance (including opioids) dependence, daily use: Status: Acute DS: Summary Hospital Course Hospital Course: As per H&P: This is a 29-year-old male who brought in after he was found unresponsive by bystanders. Per emergency room documentation he was given 12 mg of Narcan on seen initially and 2 mg of Narcan by EMS. Urine tox screen was positive for fentanyl, cocaine, marijuana. Alcohol below detectable limits. He was noted to have severe bradycardia with heart rate in the 30s, received 3 doses of atropine with no significant improvement. Heart rate has remained persistently in the 30s. Blood pressure dipped overnight and he was briefly on Levophed. He was weaned off of Levophed and blood pressure has remained around 100 systolic. Patient denies any dizziness, chest pain, shortness of breath. Patient reports drinking 6 nips of hard alcohol daily, snorting heroin and cocaine daily. He denies the use of alcohol withdrawal in the past. Brain CT, cervical spine CT and chest x-ray were unremarkable. Due to persistent bradycardia patient will be admitted to telemetry for close cardiac monitoring. The patient reamined on monitoring in telemetry unit, with eventual resolution of bradycardia. This morning, the patient was alert and oriented to person place time and situation, without evidence of somnolence or drowsiness. The patient has no evidence of rigors, S&S of withdrawal. No new concerning features. Discussion with Addiction Medicine service clarifies the patient was accidentaly intoxicated with Medetomidine (mixed with heroin that was used). Poison control was contacted and has likely cleared his system. Patient is safe and stable for discharge. He is disinterested in stopping substance use; discussed narcan prescription. Status at Discharge Functional status at discharge: independent ambulation Overall status at discharge: patient is back to baseline Time Attestation Total time managing care of this patient today: 45 mintues. Discharge Coordination Time (in mins): 15 Quality: Safe Use of Opioids Does Pt have an Active Cancer Diagnosis on the Problem List?: No Quality: Stroke Does the patient have a stroke diagnosis?: No Physical Exam Exam: Exam: General: A&O x3, oriented to time place person and siutaion, comfortable, no pain. Dishevelled appearance Cardiac: S1, S2 auscultated with no S3/4, hno MRG. Well perfused. Respiratory: Normal breath sounds auscultated throughout all lung zones, without wheezing, rales. Normal rate. GI/ : No abdominal pain on palpation, no masses or distentions. MSK: Normal ambulation without pain at bony prominences or musculature Neurological: Normal neurological examination on overview, without obvious CN II-XII abnormalities. Vital Signs: Vital Signs: Last Vital Signs Temp 98.9 F 12/15/24 11:09 Pulse 64 12/15/24 11:09 Resp 18 12/15/24 07:13 BP 130/64 12/15/24 11:09 Pulse Ox 98 12/15/24 11:09 O2 Del Method Room Air 12/15/24 11:09 O2 Flow Rate 2 12/13/24 20:15 Oxygen Flow Rate 6 12/13/24 18:00 BMI result Body Mass Index 29.5 Discharge Plan Discharge Anticipated Discharge Date/Time: 12/15/24 11:48 Patient Disposition: Home, Self-Care Discharge Diagnosis: Somnolence and overdose on heroin laced with Medetomidine, leading to bradycardia requiring monitoring Referrals: [facility] [Provider Group] Physician,Unknown J [Primary Care Provider, Medical] - 1 Week Discharge Medications: New naloxone [Narcan] 4 mg/actuation spray,non-aerosol 4 mg intranasal Q2M PRN (Reason: opioid overdose) Qty: 2 0RF Rx Instructions: spray 1 dose into ONE nostril; alternate nostrils w each dose until help arrives Discharge Orders: Discharge Order (Routine); Ordered 12/15/24 Ordered By: Virginia Munson Diet: Advance to usual diet Activity on Discharge: As tolerated Stand Alone Forms: Patient Portal Discharge page Print Language: Icelandic Activity Restrictions/Additional Instructions: You had a severe overdose probably from opioid or heroin or combination but likely had contaminant the cause severe problems such as low heart rate and respiratory issues. You were monitored for many hours in the emergency department with supportive therapies to maintain your breathing and heart. 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 Health Concerns: - Polysubstance abuse Plan of Treatment: As above Assessment: Stable post accidental overdose with heroin laced with medetomidine
== END 2024-12-15 12:30 | disposition home or self-care (01) | DRG 918 ==
LOC: HO.ED 12-14 09:43 → HO.EDOVER 12-14 10:03 → HO.IMC 12-15 01:42
PROVIDERS: Emergency Medicine; Admitting Provider Physician Assistant Medical; Emergency Provider Emergency Medicine Emergency Medical Services; Visit Provider Hospitalist
DX: T40.1X1A Poisoning by heroin, accidental (unintentional), initial encounter (principal); F11.20 Opioid dependence, uncomplicated; F19.20 Other psychoactive substance dependence, uncomplicated; R00.1 Bradycardia, unspecified; F25.9 Schizoaffective disorder, unspecified; F17.210 Nicotine dependence, cigarettes, uncomplicated; Z71.6 Tobacco abuse counseling
CPT/HCPCS: 36415; 70450; 71045; 72125; 80048; 80053; 80143; 80164; 80179; 80307; 82140; 82803; 83605; 83735; 84132; 84484; 85025; 93005; 99285; J0461; J2312; J7120; S9485

== ENCOUNTER → 2024-12-13 17:47 | Outpatient (BNV) | payer MEDICARE, MEDICAID, SELFPAY | PROVIDERS: Admitting Provider Physician Assistant Medical; Emergency Provider Emergency Medicine Emergency Medical Services; Visit Provider Internal Medicine | DX: R00.1 Bradycardia, unspecified (principal) | CPT/HCPCS: 93010 ==

== ENCOUNTER → 2024-12-13 18:01 | Outpatient (BNV) | payer MEDICARE, MEDICAID, SELFPAY | PROVIDERS: Emergency Provider Emergency Medicine; Visit Provider Radiology Diagnostic Radiology | DX: Z04.3 Encounter for examination and observation following other accident (principal); T50.901A Poisoning by unspecified drugs, medicaments and biological substances, accidental (unintentional), initial encounter | CPT/HCPCS: 70450; 71045; 72125 ==

== ENCOUNTER → 2024-12-14 08:42 | Outpatient (BNV) | payer MEDICARE, MEDICAID, SELFPAY | PROVIDERS: Admitting Provider Physician Assistant Medical; Emergency Provider Emergency Medicine Emergency Medical Services; Visit Provider Physician Assistant Medical | DX: F11.20 Opioid dependence, uncomplicated (principal); F19.20 Other psychoactive substance dependence, uncomplicated; R00.1 Bradycardia, unspecified | CPT/HCPCS: 99223 ==

== ENCOUNTER → 2024-12-14 08:42 | Outpatient (BNV) | payer MEDICARE, MEDICAID, SELFPAY | PROVIDERS: Admitting Provider Physician Assistant Medical; Emergency Provider Emergency Medicine Emergency Medical Services; Visit Provider Nurse Practitioner Psychiatric/Mental Health | DX: F11.90 Opioid use, unspecified, uncomplicated (principal) | CPT/HCPCS: 99232 ==

== ENCOUNTER 2024-12-19 15:58 | Emergency (ER) | payer MEDICARE, MEDICAID, SELFPAY ==
[2024-12-19] VITALS (8 sets, daily range): BP systolic 114–151; BP diastolic 64–93; PULSE 50–100; RESP 12–18; TEMP 36.8; O2SAT 85–100; BMI 25.3
--- NOTE | 2024-12-19 16:25 | PC.NURSE ---
Pt presents following OD snorting heroine and fentanyl. Pt is responsive to verbal stimuli. RR even and unlabored. Pt falls asleep easily and spo2 drops when patient sleeps. Pt encouraged to stay awake, provided with some ice water. Pt denies any pain or discomfort.
--- NOTE | 2024-12-19 16:39 | PC.NURSE ---
pt keeps getting drowsy and oxygen keeps dipping down as low as 85% pt put on nasal cannula at 2L
[2024-12-19 17:11] LABS: Cannabinoid Screen Urine POSITIVE (Not Detect)
--- NOTE | 2024-12-19 18:12 | ED_ITS ---
HPI - Alcohol General Chief Complaint: ETOH/Substance Use Stated Complaint: Substance Use Time Seen by Provider: 12/19/24 18:05 Source: patient and EMS Mode of arrival: EMS Limitations: no limitations History of Present Illness ED Provider: Rad WARE HPI narrative: The patient is a 29-year-old male presenting to the ED via EMS for evaluation after an opiate overdose. The patient reportedly snorted heroin or fentanyl, was found by PD who administered Narcan. Patient arrives in the ED alert and requesting to eat food. The patient denies any acute somatic complaint. Patient states he does not recall how he arrived in the ED. of note patient was placed on FiO2 via nasal cannula for noted hypoxia upon initial arrival to the ED. at time of provider interview patient was taken off FiO2 and was noted to desaturate to 88%, placed back on FiO2 for additional monitoring. Patient reports substance use was recreational, denies any homicidal or suicidal ideation. Related Data Previous Rx's ?Medication ?Instructions ?Recorded naloxone 4 mg/actuation nasal 4 mg intranasal Q2M PRN opioid 12/15/24 spray (Narcan) overdose #2 ea Allergies Allergy/AdvReac Type Severity Reaction Status Date / Time morphine (MORPHINE) AdvReac Unknown NAUSEA Verified 12/19/24 16:20 Review of Systems Review of Systems: Yes all other systems are reviewed and are negative PMFSH Past Medical History Medical History Behavior concern in adult Agitation Opioid use disorder Cocaine use disorder Nonspecific ST-T wave electrocardiographic changes Accidental overdose Polysubstance (including opioids) dependence, daily use PCP abuse PTSD (post-traumatic stress disorder) Schizoaffective disorder, bipolar type Suicidal behavior Depression Anxiety Schizophrenia Bipolar affective Schizophrenia Social History Social History (Updated 12/14/24 @ 09:03 by CHAZ Coleman) Household Members: Family Household Members Other:: parents Housing: House Do you presently have visiting nurse or other home services: No Alcohol intake: current Alcohol intake frequency: does not drink Alcohol type: hard liquor Comment: daily 6 nips Patient Tobacco Use Status: Current everyday Tobacco user Cigarette Packs Per Day: 0.25 Cigarettes Per Day: 5.0 Years Smoked: 10 Smoked in Last 30 Days: No e-Cigarette/Vaping Use: Never Used Second Hand Smoke Exposure: No Use of substances other than those prescribed or required for medical reasons: Yes Substance Use Type: Inhalants Substance Use Type Other:: fentanyl and heroine Substance Use Frequency: Daily Last Used Substance: Just Prior to Admission Any prior treatment program specific to substance use: No Advance Directives: No Advance Directives Information Provided: Yes Do you have a plan to hurt others: No Plan service: No Sexual orientation: Straight/Heterosexual Physical Exam ED Vital Signs: Vital Signs - 24 hr 12/19/24 16:15 12/19/24 16:23 12/19/24 16:42 Temperature 98.3 F 98.3 F Pulse Rate 78 78 Respiratory Rate 12 12 Blood Pressure 151/65 H 151/65 H Pulse Oximetry 93 93 85 L Oxygen Delivery Method Room Air Room Air Room Air Oxygen Flow Rate 12/19/24 16:57 12/19/24 18:05 12/19/24 18:31 Temperature Pulse Rate 50 50 Respiratory Rate 14 16 Blood Pressure 126/74 114/69 Pulse Oximetry 98 100 89 L Oxygen Delivery Method Nasal Cannula Nasal Cannula Room Air Oxygen Flow Rate 2 2 12/19/24 19:58 Temperature 98.2 F Pulse Rate 53 Respiratory Rate 18 Blood Pressure 127/64 Pulse Oximetry 98 Oxygen Delivery Method Room Air Oxygen Flow Rate BMI result Body Mass Index 25.3 CONSTITUTIONAL: The patient appears non-toxic, well nourished and in no acute distress. Vital signs as documented. HEAD: Atraumatic, normocephalic. EYES: EOMs grossly intact, pupils equal, conjunctiva clear, no exudate. ENT: Nares patent, no discharge. Airway patent, no audible stridor, visible mucosa is pink and moist without noted lesions. NECK: Trachea is midline, no obvious masses or gross abnormalities. CHEST: Symmetric movement, normal appearance. LUNGS: LS present and CTAB, no w/r/r. Non-labored work of breathing. CARDIAC: Regular Rhythm, S1/S2 appreciated, no murmurs, rubs or gallops. ABDOMEN: Abdomen soft and non-tender x4 quadrants, no palpable masses or organomegaly. : Deferred. EXTREMITIES: Normal tone, moves all extremities spontaneously without reported pain. No obvious acute injury or deformity noted. NEURO: Alert and oriented x3, CN II-XII appear grossly intact. Cerebellar Functioning grossly intact. No obvious sensory or motor deficits. Speech clear and appropriate. PSYCH: normal affect, appropriate eye contact, fluid speech, with appropriate response to questioning. No reported suicidality or homicidality. SKIN: Warm, dry, color appropriate, normal turgor. No rashes noted. Medical Decision Making Medical Decision Making [facility] Narrative: 6:41 PM 12/19/2024 (Duncan WARE): Patient is a 29-year-old male presenting to the ED for evaluation after receiving Narcan from PD for opiate dose on fentanyl. On exam the patient is alert, eating a sandwich and drinking bharat mario, patient was taken off FiO2 and shortly after completion of exam was noted by RN to be sleeping and desaturated to 88%, woke easily to verbal stimuli, lung sounds clear. Patient was placed back on FiO2 and we will continue to monitor. Patient is not endorsing SI or HI, we will continue to monitor to sobriety and discharge with resources. 8:26 PM 12/19/2024 (Duncan WARE): The patient is now alert and maintaining oxygen saturation. Patient is requesting discharge. Patient was offered detox services and declined. Patient will be discharged with Narcan. Admission/Observation Consideration of admission/observation: Escalation of care including admission/observation considered Lab Data [facility] Lab Attestation statement: I reviewed the patient's lab results. Labs: Lab Results 12/19/24 Range/Units 16:47 Urine Opiates Screen Not Detected (Not Detect) Ur Buprenorphine Scrn Not Detected (Not Detect) ng/mL Ur Oxycodone Screen Not Detected (Not Detect) ng/mL Urine Methadone Screen Not Detected (Not Detect) ng/mL Urine Fentanyl Screen POSITIVE H (Not Detect) Ur Barbiturates Screen Not Detected (Not Detect) Ur Phencyclidine Scrn Not Detected (Not Detect) Ur Amphetamines Screen Not Detected (Not Detect) U Benzodiazepines Scrn Not Detected (Not Detect) Urine Cocaine Screen POSITIVE H (Not Detect) U Marijuana (THC) Screen POSITIVE H (Not Detect) Discharge Plan Discharge Clinical Impression: Polysubstance (including opioids) dependence, daily use, Overdose Patient Disposition: Home, Self-Care Instructions: Adult Overdose (ED), Opioid Use Disorder (ED) Additional Instructions: Thank you for choosing [facility]'s Emergency Department for your care today. At this time there is no evidence of an acute process requiring admission to the hospital or continued ED observation, and it is safe to discharge you home. You were seen in the emergency department today for evaluation of a suspected opiate overdose. Please do not use heroin or other narcotics as they are generally not good for your health and can put you at risk for respiratory arrest, anoxic brain injury, severely decreased quality of life, and potentially an otherwise avoidable . Please make use of all available personal and community-based resources to attempt to become sober from recreational drugs. Please stay well hydrated and get plenty of rest. Please follow up with your primary care physician for re-evaluation, additional management of your symptoms, and continued preventative care. If you do not have a primary care physician, please call the [facility] at [phone] to establish a new primary care physician. While waiting to establish your new primary care physician, you can call our [facility] at [phone] for non-emergency needs. Please return to the emergency department if you develop a severe or sudden change in your symptoms, a fever over 100.4 that does not improve with Tylenol or Ibuprofen, recurrent vomiting, or any other new or worsening symptoms or concerns. Prescriptions: No Action naloxone [Narcan] 4 mg/actuation spray,non-aerosol 4 mg intranasal Q2M PRN (Reason: opioid overdose) Qty: 2 0RF Rx Instructions: spray 1 dose into ONE nostril; alternate nostrils w each dose until help arrives Referrals: [facility] [Primary Care Provider, Medical] Clinical Impression: Polysubstance (including opioids) dependence, daily use; Overdose Print Language: Lao
--- NOTE | 2024-12-19 20:09 | PC.NURSE ---
pt awake and alert. VSS, maintain O2 on RA, requesting to leave. Provider aware
[2024-12-19] MEDS: Naloxone HCl Nasal TAKE HOME 4 MG SPRAY 8 MG NOSTRILALT (20:35)
== END 2024-12-19 20:38 | disposition home or self-care (01) ==
PROVIDERS: Emergency Provider Emergency Medicine Emergency Medical Services
DX: F11.20 Opioid dependence, uncomplicated (principal); Z51.81 Encounter for therapeutic drug level monitoring; Z79.899 Other long term (current) drug therapy; F17.210 Nicotine dependence, cigarettes, uncomplicated; Z71.51 Drug abuse counseling and surveillance of drug abuser
CPT/HCPCS: 80307; 99285

== ENCOUNTER 2025-03-05 23:24 | Emergency (ER) | payer MEDICARE, MEDICAID, SELFPAY ==
--- NOTE | ~2025-03-05 | XR_ITS ---
CLINICAL HISTORY: de stating. 1 view chest x-ray Comparison: Chest x-ray from 12/13/2024 Findings: New mild pulmonary opacities are nonspecific and may reflect pneumonitis including infrahilar regions. Atelectasis also considered. No pneumothorax or pleural effusion in this one view study. Imaged mediastinum and imaged osseous structures appear unchanged. IMPRESSION: Mild pulmonary opacities likely reflect pneumonitis, including infrahilar regions. Please consider attention on follow-up to ensure resolution. This document has been electronically signed by: Rafy Rodriguez MD on 03/06/2025 01:21:30
[2025-03-05 23:44] VITALS: BP 148/68; BP 170/90; PULSE 83; PULSE 90; RESP 16; TEMP 36.6; O2SAT 95; O2SAT 97; BMI 25.8
[2025-03-05 23:56] VITALS: BP 148/68; PULSE 85; RESP 16; TEMP 36.6; O2SAT 97
--- NOTE | 2025-03-05 23:57 | PC.NURSE ---
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
--- NOTE | 2025-03-06 00:01 | PC.NURSE ---
chest x-ray ordered.
[2025-03-06] MEDS: Naloxone HCl Nasal TAKE HOME 4 MG SPRAY 8 MG NOSTRILALT (00:17)
--- NOTE | 2025-03-06 00:18 | PC.NURSE ---
pt sleeping at this time.
--- NOTE | 2025-03-06 00:27 | PC.NURSE ---
pt able to answer questions when asked.
--- NOTE | 2025-03-06 00:31 | PC.NURSE ---
pt given water
--- NOTE | 2025-03-06 00:56 | ED_ITS ---
HPI - General Adult General Chief complaint: Overdose Stated complaint: FOUND PASSED OUT ON SIDEWALK Time Seen by Provider: 03/05/25 23:31 Source: patient, RN notes reviewed and old records reviewed Mode of arrival: EMS Limitations: no limitations History of Present Illness ED Provider: Jarrod SALCIDO narrative: 29-year-old male past medical history significant for schizoaffective disorder, bipolar type, polysubstance abuse presents for evaluation of a reported opiate overdose. The patient was found passed out on the sidewalk. He admitted to EMS that he use recreational opiates and a attempt to get high. He reports using heroin He also endorses heroin abuse to me. He denies any suicidal ideation but reports he was trying to get high He reports that he feels tired but otherwise offers no complaints pain Denies any pain, fevers, chills Denies any shortness of breath, cough He has no other complaints or concerns at this time Related Data Previous Rx's ?Medication ?Instructions ?Recorded naloxone 4 mg/actuation nasal 4 mg intranasal Q2M PRN opioid 12/15/24 spray (Narcan) overdose #2 ea doxycycline monohydrate 100 mg 100 mg PO BID #14 caps 03/06/25 capsule Allergies Allergy/AdvReac Type Severity Reaction Status Date / Time morphine (MORPHINE) AdvReac Unknown NAUSEA Verified 03/05/25 23:49 Review of Systems Constitutional: Constitutional: Denies body ache(s), Denies chills, Reports fatigue, Denies fever(s) and Denies headache(s) Eyes: Eyes: Denies blurry vision ENT: Denies vertigo, Denies dizziness and Denies headache(s) Cardiovascular: Cardiovascular: Denies chest pain and Denies dyspnea on exertion Respiratory: Respiratory: Denies cough and Denies dyspnea on exertion Gastrointestinal: Gastrointestinal: Denies abdominal pain Musculoskeletal: Musculoskeletal: Denies back pain Integumentary/Breasts: Skin/Breast: Denies rash Neurologic: Denies vertigo, Denies dizziness and Denies headache(s) Endocrine: Endocrine: Reports fatigue PMFSH Past Medical History Medical History Behavior concern in adult Agitation Opioid use disorder Cocaine use disorder Nonspecific ST-T wave electrocardiographic changes Accidental overdose Polysubstance (including opioids) dependence, daily use PCP abuse PTSD (post-traumatic stress disorder) Schizoaffective disorder, bipolar type Suicidal behavior Depression Anxiety Schizophrenia Bipolar affective Schizophrenia Social History Social History (Updated 12/14/24 @ 09:03 by CHAZ Coleman) Household Members: Family Household Members Other:: parents Housing: House Do you presently have visiting nurse or other home services: No Alcohol intake: current Alcohol intake frequency: does not drink Alcohol type: hard liquor Comment: daily 6 nips Patient Tobacco Use Status: Current everyday Tobacco user Cigarette Packs Per Day: 0.25 Cigarettes Per Day: 5.0 Years Smoked: 10 e-Cigarette/Vaping Use: Never Used Second Hand Smoke Exposure: No Use of substances other than those prescribed or required for medical reasons: No Substance Use Type: Heroin Advance Directives: No Advance Directives Information Provided: Yes Do you have a plan to hurt others: No Plan service: No Sexual orientation: Straight/Heterosexual Physical Exam ED Vital Signs: Vital Signs - 24 hr 03/05/25 23:44 03/05/25 23:56 03/06/25 03:56 Temperature 97.9 F 97.9 F Pulse Rate 83 85 Respiratory Rate 16 16 16 Blood Pressure 148/68 H 148/68 H Pulse Oximetry 97 97 92 Oxygen Delivery Method Room Air Room Air Room Air BMI result Body Mass Index 25.8 Const Other: The patient is quite somnolent and needs to be awakened several times during the interview. He does awaken to verbal stimuli only. General: healthy appearing, comfortable, no acute distress, alert and tired appearing Nutritional Appearance: well nourished Orientation/consciousness: patient oriented x3 HENMT Head: Yes normocephalic and Yes atraumatic Eyes Eyelids: Yes eyelids normal Conjunctivae: conjunctivae normal Sclerae: sclerae normal Corneas: corneas normal Pupils: Equal, round and reactive pupils present EOM: EOMs intact bilaterally Neck Neck: Yes full ROM Resp Effort & Inspection: normal respiratory effort, able to speak in complete sentences, no audible wheezes and not labored Auscultation: clear to auscultation bilaterally Cardio Rate: regular rate Rhythm: regular rhythm GI Inspection: No distended Palpation (GI): Soft to palpation, not firm, nontender, no guarding and not rigid Skin General skin exam: elasticity normal Neuro General: patient oriented x3 Cranial nerves: Yes Equal, round and reactive pupils present and Yes Bilaterally intact EOM present Cognition (Neuro): normal cognition Extrem Other: Moving all extremities well without any obvious deformities Course Reevaluation(s) Reevaluation #1: Patient is signed out to overnight she had pending sober re-evaluation. Anticipate discharge in the morning Time: 01:49 Reevaluation #2: 03/06/2025 06:32 I received sign-out by Dr. Marks plan is discharge when sober patient is sleeping no acute distress Time: 06:32 Reevaluation #3: 08:59 patient is awake alert ambulatory chest x-ray was read as a possible pneumonitis therefore I will send him home with a prescription for doxycycline Time: 08:59 Medications Administered Discontinued Medications Generic Name Dose Route Start Last Admin Trade Name Freq PRN Reason Stop Dose Admin Naloxone HCl 8 mg 03/05/25 23:41 03/06/25 00:17 Naloxone Hcl Nasal Take Home 4 Mg [place] NOSTRILALT 03/05/25 23:42 8 mg ONCE ONE Administration Medical Decision Making Medical Decision Making [facility] Narrative: 29-year-old male presents for evaluation of a report opiate overdose. He reports this was recreational use only and he was not trying to harm himself he had a declines any interest in detox. The patient did become hypoxic slightly on room air while sleeping. While awake his oxygen saturation is 98%. He was placed on supplemental oxygen with improvement in his symptoms. Given the hypoxia did order a portable chest x-ray to rule out aspiration. He is not coughing, denies any shortness of breath and he is afebrile. Symptoms are likely related to opiate abuse. We will continue to follow Differential Diagnosis Differential Diagnoses: The differential diagnosis associated with the presentation includes Opiate overdose Aspiration pneumonia Aspiration pneumonitis Overdose Independent Interpretation I performed an independent interpretation of an: Plain X-Ray Interpretation: No focal infiltrates Radiology Impression Discussion of test interpretation with radiology: I have reviewed the radiologist's reading. Radiologist Impression: Findings: New mild pulmonary opacities are nonspecific and may reflect pneumonitis including infrahilar regions. Atelectasis also considered. No pneumothorax or pleural effusion in this one view study. Imaged mediastinum and imaged osseous structures appear unchanged. IMPRESSION: Mild pulmonary opacities likely reflect pneumonitis, including infrahilar regions. Please consider attention on follow-up to ensure resolution. This document has been electronically signed by: Rafy Rodriguez MD on 03/06/2025 01:21:30 Discharge Plan Discharge Clinical Impression: Polysubstance (including opioids) dependence, daily use, Pneumonitis Patient Disposition: Home, Self-Care Instructions: Opioid Use Disorder (ED) Additional Instructions: Opiate use disorder You were seen in our Emergency Department today for treatment of opiate use disorder. You may have been dosed with medication for opiate use disorder (MOUD) in the form of suboxone or methadone. You may experience feeling some withdrawal symptoms and this is normal. The? dose in the Emergency Department is a starting dose and meant to be titrated up once you follow up with a clinic. Please do not feel discouraged, it is a process. The nurse has reviewed with you where to follow up and what information to bring with you, to continue treatment. You also may have been given naloxone (narcan) to take home with you. This medication is used to potentially treat opiate overdose. If you decide you want to stop or cut down on how much you?re using, you can call or walk into our outpatient Addiction Treatment office: [facility] (M-F 9am-5p) [address] [place] [address], [address] [phone] You may have been provided with safer injection?items, please take time to take care of YOU and your health. Use new supplies whenever possible to lessen the chances of infections and other illnesses.? ?If you need more supplies, please go [facility],? [address] [place] [address] OR you can call or text to coordinate delivery of safer supplies. You were also provided a list of several treatment providers in the area.? If you experience any worsening symptoms you cannot control please return to the ED or call 911. Please follow up at your next appointment. Things to look out for are fevers, chest pain, shortness of breath, severe pain, dizziness, fainting or any other concerns. We sent a prescription for doxycycline to your pharmacy [facility] Prescriptions: New doxycycline monohydrate 100 mg capsule 100 mg PO BID Qty: 14 0RF No Action naloxone [Narcan] 4 mg/actuation spray,non-aerosol 4 mg intranasal Q2M PRN (Reason: opioid overdose) Qty: 2 0RF Rx Instructions: spray 1 dose into ONE nostril; alternate nostrils w each dose until help arrives Print Language: [place]
--- NOTE | 2025-03-06 02:20 | PC.NURSE ---
pt oob to bathroom, no sign of distress, pt had a steady gait.
[2025-03-06 03:56] VITALS: RESP 16; O2SAT 92
--- NOTE | 2025-03-06 03:57 | PC.NURSE ---
pt is sleeping
[2025-03-06 09:19] VITALS: BP 114/66; PULSE 76; RESP 18; TEMP 36.6; O2SAT 98
[2025-03-06 09:20] VITALS: BP 114/66; PULSE 76; RESP 18; TEMP 36.6; O2SAT 98
== END 2025-03-06 09:21 | disposition home or self-care (01) ==
PROVIDERS: Emergency Provider Emergency Medicine
DX: F19.20 Other psychoactive substance dependence, uncomplicated (principal); J98.4 Other disorders of lung; R09.02 Hypoxemia; F25.9 Schizoaffective disorder, unspecified; R55 Syncope and collapse
CPT/HCPCS: 71045; 99285

== ENCOUNTER → 2025-03-06 00:01 | Outpatient (BNV) | payer MEDICARE, MEDICAID, SELFPAY | PROVIDERS: Emergency Provider Emergency Medicine; Visit Provider Radiology Neuroradiology | DX: R91.8 Other nonspecific abnormal finding of lung field (principal) | CPT/HCPCS: 71045 ==